=== PATIENT | male | born 1965 | race Caucasian/White ===

== ENCOUNTER 2017-06-20 10:49 | Inpatient (IN) | payer BC ==
[~2017-06-20] VITALS: Ht 177.8 cm; Wt 131.6 kg
[~2017-06-20 10:49] MED LIST: ASPI-983 PO; ATOR10TA66 PO; CANA100T PO; CANA300T PO; FURO20TA4 PO; GABA-488 PO; GABA300C PO; METF1000 PO; METO-333 PO; [UNRECOGNIZED DRUG - CODE] MC
--- OUTSIDE RECORDS SUMMARY | 2017-06-20 10:56 | XMS REPORT | Clinical Summary ---
Author Author [facility] Organization [facility] Address Unknown Phone Unavailable Care Team Providers Care Copy Director Name Role Phone PCP Unavailable Source Comments Some departments are not documenting in the electronic medical record. If you do not see the information that you expected, contact Release of Information in the Health Information Management department at [phone] for further assistance in locating additional records.[facility] Allergies No Known Allergies Current Medications Prescription Sig. Disp. Refills Start End Date Status Date metoprolol tartrate Take 25 mg by mouth twice Active (LOPRESSOR) 25 mg tablet daily. metFORMIN (GLUCOPHAGE) Take 500 mg by mouth Active 500 mg tablet twice daily with meals. gabapentin (NEURONTIN) Take 300 mg by mouth Active 300 mg capsule every 8 hours. furosemide (LASIX) 20 mg Take 20 mg by mouth every Active tablet morning. lisinopril (PRINIVIL; Take 10 mg by mouth Active ZESTRIL) 10 mg tablet daily. canagliflozin (INVOKANA) Take 300 mg by mouth Active 300 mg tablet daily with breakfast. Active Problems Problem Noted Date Erectile dysfunction 05/03/2016 Overview: ED likely secondary to vascular factors. L ast Assessment & Plan: Plan: 1. Offered IPP with cardiac clearance first. Patient does not want to schedule at this time due to insurance concerns but may consider if he reaches his deductible next year. Family History Medical History Relation Name Comments Cancer-Prostate Father Heart Disease Father Hypertension Father Diabetes Mother Hypertension Mother Relation Name Status Comments Father Mother Social History Tobacco Use Types Packs/Day Years Used Date Never Smoker Alcohol Use Drinks/Week oz/Week Comments Yes 0 Standard 0.0 drinks or equivalent Sex Assigned at Date Recorded Not on file Last Filed Vital Signs Vital Sign Reading Time Taken Blood Pressure 118/79 05/03/2016 1:44 PM CORNER CUTTER Pulse 92 05/03/2016 1:44 PM CORNER CUTTER Temperature - - Respiratory Rate - - Oxygen Saturation - - Inhaled Oxygen - - Concentration Weight 111.6 kg (246 lb) 05/03/2016 1:44 PM CORNER CUTTER Height 180.3 cm (5' 11") 05/03/2016 1:44 PM CORNER CUTTER Body Mass Index 34.31 05/03/2016 1:44 PM CORNER CUTTER Plan of Treatment Health Maintenance Due Date Last Done Comments PHYSICAL (COMPREHENSIVE) 1973 EXAM PERTUSSIS VACCINE 1977 TETANUS VACCINE 1983 COLORECTAL CANCER 01/30/2016 SCREENING INFLUENZA VACCINE 01/11/2017 Results Not on filefrom Last 3 Months
--- OUTSIDE RECORDS SUMMARY | 2017-06-20 10:56 | XMS REPORT | Continuity of Care Document ---
Author Author [facility] Organization [facility] Address Unknown Phone Unavailable Allergies Active Description Code Type Severity Reaction Onset Reported/Identified Relationship to Patient Clinical Status Yes No Known Drug Allergies [id number] Drug Allergy Unknown N/A 06/15/2015 Medications There is no data. Problems Date Dx Coded Attending Type Code Diagnosis Diagnosed By 06/17/2015 MARIIA SIM DO Ot E11.40 TYPE 2 DIABETES MELLITUS WITH DIABETIC N 06/17/[facility] E11.65 TYPE 2 DIABETES MELLITUS WITH HYPERGLYCE [facility]/17/[facility] SHANNON Ot E78.5 HYPERLIPIDEMIA, UNSPECIFIED 06/17/2015 MARIIA SIM DO Ot I10 ESSENTIAL (PRIMARY) HYPERTENSION 06/17/2015 MARIIA SIM DO Ot I25.10 ATHSCL HEART DISEASE OF [place] CORONARY 06/17/2015 [facility]A SHANNON Ot I49.3 VENTRICULAR PREMATURE DEPOLARIZATION 06/17/2015 MARIIA SIM DO Ot I65.23 OCCLUSION AND STENOSIS OF BILATERAL [place] 06/17/2015 MARIIA SIM DO Ot I73.9 PERIPHERAL VASCULAR DISEASE, UNSPECIFIED 06/17/2015 MARIIA SIM DO Ot K21.9 GASTRO-ESOPHAGEAL REFLUX DISEASE WITHOUT 06/17/2015 MARIIA SIM DO Ot N52.1 ERECTILE DYSFUNCTION DUE TO DISEASES CLA 06/17/2015 MARIIA SIM DO Ot R07.89 OTHER CHEST PAIN 06/17/2015 MARIIA SIM DO Ot Z23 ENCOUNTER FOR IMMUNIZATION 06/17/2015 MARIIA SIM DO Ot Z91.19 PATIENT'S NONCOMPLIANCE W OT MEDICAL TR 09/04/2015 CHRISTINA MOTAP Ot G47.33 OBSTRUCTIVE SLEEP APNEA (ADULT) (PEDIATR 09/09/2015 CHRISTINA MOTA Ot G47.33 09/25/2015 DENVER MAST, EUGENE Harding Ot R31.2 09/25/2015 DENVER MAST, EUGENE Harding Ot R31.2 09/25/2015 DENVER MAST, EUGENE Harding Ot Z01.818 09/25/2015 DENVER MAST, EUGENE Harding Ot R31.2 09/26/2015 DENVER MAST, EUGENE Harding Ot R31.2 OTHER MICROSCOPIC HEMATURIA 09/29/2015 DENVER MAST, EUGENE Harding Ot R31.2 OTHER MICROSCOPIC HEMATURIA 09/30/2015 DENVER MAST, EUGENE Harding Ot R31.2 OTHER MICROSCOPIC HEMATURIA 10/01/2015 DENVER MAST, EUGENE Harding Ot N28.1 CYST OF KIDNEY, ACQUIRED 10/02/2015 DENVER MAST, EUGENE Harding Ot R31.2 OTHER MICROSCOPIC HEMATURIA 10/02/2015 DENVER MAST, EUGENE Harding Ot N28.1 CYST OF KIDNEY, ACQUIRED 10/08/2015 DENVER MAST, EUGENE Harding Ot R31.2 OTHER MICROSCOPIC HEMATURIA 10/09/2015 DENVER MAST, EUGENE Harding Ot R31.2 OTHER MICROSCOPIC HEMATURIA 10/09/2015 DENVER MAST, EUGENE A Ot R31.2 OTHER MICROSCOPIC HEMATURIA 10/09/2015 DENVER MATS, EUGENE Harding Ot Z01.818 ENCOUNTER FOR OTHER PREPROCEDURAL EXAMIN 10/09/2015 DENVER MAST, EUGENE Harding Ot N28.1 CYST OF KIDNEY, ACQUIRED 10/10/2015 GELLENDER DO, MARIIA A Ot R19.7 DIARRHEA, UNSPECIFIED 10/15/2015 EUGENE GOFF MD Ot N28.1 CYST OF KIDNEY, ACQUIRED 10/16/2015 GELLENDER DO, MARIIA A Ot R19.7 DIARRHEA, UNSPECIFIED 11/05/2015 GELLENDER DO, MARIIA A Ot R19.7 DIARRHEA, UNSPECIFIED 11/06/2015 DEFFENBAANASTASIIA DO KAYLA D Ot R19.7 DIARRHEA, UNSPECIFIED 11/21/2015 DEFFENBAKAYLA LAURENT DO D Ot R19.7 DIARRHEA, UNSPECIFIED 02/09/2016 CELIA MAST, KAREN Perdomo Ot E11.40 TYPE 2 DIABETES MELLITUS WITH DIABETIC N 02/09/2016 CELIA MAST, KAREN Perdomo Ot E78.5 HYPERLIPIDEMIA, UNSPECIFIED 02/09/2016 CELIA MAST, KAREN Perdomo Ot 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 02/09/2016 KAREN YANG MD, Ot Z79.899 OTHER LINE MAINTAINER SECTION (CURRENT) DRUG THERAPY 02/20/2016 KAREN YANG MD Ot E11.40 TYPE 2 DIABETES MELLITUS WITH DIABETIC N 02/20/2016 KAREN YANG MD Ot E78.5 HYPERLIPIDEMIA, UNSPECIFIED 02/20/2016 KAREN YANG MD Ot I70.202 UNSP ATHSCL [place] ARTERIES OF [facility] 02/20/2016 KAREN YANG MD Ot M79.606 PAIN IN LEG, UNSPECIFIED 02/20/2016 KAREN YANG MD, Ot Z79.899 OTHER SKILLED NURSING (CURRENT) DRUG THERAPY 07/19/2016 KAREN YANG MD, Ot E11.40 TYPE 2 DIABETES MELLITUS WITH DIABETIC N 07/19/2016 KAREN YANG MD, Ot E78.5 HYPERLIPIDEMIA, UNSPECIFIED 07/19/2016 KAREN YANG MD, Ot I70.212 ATHSCL [place] ARTERIES OF [facility] W INTRNV 07/19/2016 KAREN YANG MD, Ot Z79.899 OTHER SKILLED NURSING (CURRENT) DRUG THERAPY Procedures There is no data. Results Test Result Range PT panel in platelet poor plasma by coagulation assay - 02/09/16 07:20 Prothrombin time (PT) in platelet poor plasma by coagulation assay 12.9 s 12.2-14.7 INR in platelet poor plasma or blood by coagulation assay 1.0 0.8-1.4 Activated partial thromboplastin time (aPTT) in platelet poor plasma bycoagulation assay - 02/09/16 07:20 Activated partial thromboplastin time (aPTT) in platelet poor plasma bycoagulation assay 30 s 24-35 Comprehensive metabolic panel - 02/09/16 07:20 Serum or plasma sodium measurement (moles/volume) 142 mmol/L 135-145 Serum or plasma potassium measurement (moles/volume) 4.0 mmol/L 3.6-5.0 Serum or plasma chloride measurement (moles/volume) 106 mmol/L 98-107 Carbon dioxide 24 mmol/L 21-32 Serum or plasma anion gap determination (moles/volume) 12 mmol/L 5-14 Serum or plasma urea nitrogen measurement (mass/volume) 29 mg/dL 7-18 Serum or plasma creatinine measurement (mass/volume) 1.16 mg/dL 0.60-1.30 Serum or plasma urea nitrogen/creatinine mass ratio 25 NRG Serum or plasma creatinine measurement with calculation of estimated glomerular filtration rate > NRG Serum or plasma glucose measurement (mass/volume) 220 mg/dL 70-105 Serum or plasma calcium measurement (mass/volume) 9.4 mg/dL 8.5-10.1 Serum or plasma total bilirubin measurement (mass/volume) 0.6 mg/dL 0.1-1.0 Serum or plasma alkaline phosphatase measurement (enzymatic activity/volume) 84 U/L 40-136 Serum or plasma aspartate aminotransferase measurement (enzymatic activity/ volume) 19 U/L 5-34 Serum or plasma alanine aminotransferase measurement (enzymatic activity/volume ) 27 U/L 0-55 Serum or plasma protein measurement (mass/volume) 6.5 g/dL 6.4-8.2 Serum or plasma albumin measurement (mass/volume) 4.2 g/dL 3.2-4.5 Lipid 1996 panel - 02/09/16 07:20 Serum or plasma triglyceride measurement (mass/volume) 172 mg/dL <150 Serum or plasma cholesterol measurement (mass/volume) 169 mg/dL < 200 Serum or plasma cholesterol in HDL measurement (mass/volume) 38 mg/ dL 40-60 Cholesterol in LDL [mass/volume] in serum or plasma by direct assay 96 mg/dL 1-129 Serum or plasma cholesterol in VLDL measurement (mass/volume) 34 mg/ dL 5-40 Methicillin resistant Staphylococcus aureus (MRSA) screening culture - 07:20 Methicillin resistant Staphylococcus aureus (MRSA) screening culture NEG NRG Complete urinalysis with reflex to culture - 02/09/16 07:45 Urine color determination YELLOW NRG Urine clarity determination CLEAR NRG Urine pH measurement by test strip 5 5-9 Specific gravity of urine by test strip 1.010 1.016- 1.022 Urine protein assay by test strip, semi-quantitative 3+ NEGATIVE Urine glucose detection by automated test strip 4+ NEGATIVE Erythrocytes detection in urine sediment by light microscopy 3+ NEGATIVE Urine ketones detection by automated test strip NEGATIVE NEGATIVE Urine nitrite detection by test strip NEGATIVE NEGATIVE Urine total bilirubin detection by test strip NEGATIVE NEGATIVE Urine urobilinogen measurement by automated test strip (mass/volume) NORMAL NORMAL Urine leukocyte esterase detection by dipstick NEGATIVE NEGATIVE Automated urine sediment erythrocyte count by microscopy (number/high power field) [HPF] NRG Automated urine sediment leukocyte count by microscopy (number/high power field ) NONE NRG Bacteria detection in urine sediment by light microscopy NEGATIVE NRG Squamous epithelial cells detection in urine sediment by light microscopy 0-2 NRG Crystals detection in urine sediment by light microscopy NONE NRG Casts detection in urine sediment by light microscopy NONE NRG Mucus detection in urine sediment by light microscopy NEGATIVE NRG Complete urinalysis with reflex to culture YES NRG Yeast detection in urine sediment by light microscopy FEW NRG Bacterial urine culture - 02/09/16 07:45 Bacterial urine culture NG NRG Encounters ACCT No. Visit Date/Time Discharge Status Pt. Type Provider Facility Loc./Unit Complaint [id number] 02/09/2016 06:42:00 02/09/2016 14:10:00 DIS Outpatient KAREN YANG MD [facility] CATH ABN. AILYN, DM, CLAUDICATION PAIN [id number] 11/05/2015 16:05:00 11/05/2015 23:59:59 CLS Outpatient KAYLA ISBELL DO [facility] LAB [id number] 10/10/2015 07:23:00 11/05/2015 16:03:00 DIS Outpatient MARIIA SIM DO [facility] LAB [id number] 09/30/2015 13:23:00 09/30/2015 23:59:59 CLS Outpatient EUGENE GOFF MD [facility] RAD [id number] 09/26/2015 06:23:00 09/26/2015 09:35:00 DIS Outpatient EUGENE GOFF MD [facility] [id number] 09/24/2015 13:25:00 09/24/2015 23:59:59 CLS Outpatient EUGENE GOFF MD [facility] RAD [id number] 09/24/2015 05:36:00 09/24/2015 23:59:59 CLS Outpatient EUGENE GOFF MD [facility] PREOP [id number] 09/03/2015 20:26:00 09/04/2015 06:17:00 DIS Outpatient CHRISTINA MOTA TABLET MAKING MACHINE OPERATOR [facility] SLEEP [id number] 06/15/2015 21:30:00 06/17/2015 14:50:00 DIS Inpatient MARIIA SIM DO [facility]
--- NOTE | 2017-06-20 11:43 | ED Cardiac General ---
History of Present Illness General Chief Complaint: Respiratory Problems Stated Complaint: SWELLING,WEIGHT GAIN-SENT BY DR SIM History of Present Illness Time seen by provider: 11:39 Initial Comments Pt is a 52 yo male with a PMH of PAD, DM (with retinopathy), HTN, and Obesity who presents to the ED from Dr. Sim c/o SOB and weight gain over the past few months. Pt states that he has gained 40-50 lbs over the past few months and has become increasingly SOB and has had difficulties working and bending over because of the weight gain. Pt states that he has never been told he had CHF but Dr. Sim was concerned that may be the case. Pt denies any CP, fevers, chills, urinary sx, n/v/d or any other associated sx. (LAUREN RODRIGUEZ MEDICAL STUDENT) Initial Comments I saw the patient with the medical student and agree with his history, physical examination, assessment and plan. Patient has had 50 pounds weight gain over the last 3 months and is not on metoprolol. He is known to Dr. Perez and has an echocardiogram from 2 years ago indicating to the diastolic dysfunction. Patient presents with progressively a sending edema starting in his ankles and working the way up to his thighs and then now his midsection. He is using CPAP because difficult to breathe at night. He is having weakness. He denies any chest pain but he definitely has shortness of breath and for the last 4 days as had quite a bit of coughing which he attributes to an upper respiratory infection. Patient is not on diuretics. (ELMIRA ORTEZ) Allergies and Home Medications Allergies Coded Allergies: No Known Drug Allergies (Unverified , 06/15/15) Home Medications Aspirin 81 Mg Collin., 81 MG PO DAILY, #100 Prescribed by: KAREN PEREZ on 02/09/16 0909 Canagliflozin 300 Mg Tablet, 300 MG PO DAILY, (Reported) Furosemide 20 Mg Tablet, 20 MG PO BID, (Reported) Gabapentin 300 Mg Capsule, 300 MG PO TID, (Reported) Metoprolol Tartrate 25 Mg Tablet, 25 MG PO BID, (Reported) Review of Systems Constitutional: No chills, No diaphoresis, No fever, weight gain (40-60 lbs) EENTM: No Symptoms Reported, No Blurred Vision, No Double Vision, No Mouth Swelling, No Nose Congestion, No Throat Pain Respiratory: Cough, Shortness of Air, SOA With Exertion, SOA at Rest Cardiovascular: Denies Chest Pain, Edema, Denies Irregular Heart Rate, Denies Palpitations, Denies Syncope Gastrointestinal: Abdomen Distended, Denies Abdominal Pain, Denies Diarrhea, Denies Difficulty Swallowing, Denies Nausea Genitourinary: Denies Burning, Denies Discharge Musculoskeletal: No back pain, No joint pain, joint swelling (leg swelling bilat) Skin: no symptoms reported, No change in color, No change in hair/nails, No rash Psychiatric/Neurological: No Symptoms Reported Endocrine: No Symptoms Reported Hematologic/Lymphatic: No Symptoms Reported (LAUREN RODRIGUEZ MEDICAL STUDENT) All Other Systems Reviewed Negative Unless Noted: Yes (Negative excepted noted.) (LAUREN RODRIGUEZ MEDICAL STUDENT) Past Wnslckm-Uywhgu-Yuklhf Hx Patient Social History Recent Foreign Travel: No Contact w/Someone Who Travel: No (LAUREN RODRIGUEZ MEDICAL STUDENT) Immunizations Up To Date Tetanus Booster (TDap): Unknown Date of Pneumonia Vaccine: Jun 16, 2015 Date of Influenza Vaccine: Apr 24, 2015 (LAUREN RODRIGUEZ MEDICAL STUDENT) Seasonal Allergies Seasonal Allergies: No (LAUREN RODRIGUEZ MEDICAL STUDENT) Surgeries Surgeries: Cardiac, Nose (LAUREN RODRIGUEZ MEDICAL STUDENT) Respiratory Respiratory Disorders: Sleep Apnea Currently Using CPAP: No (prescribbed machine but does not use) Currently Using BIPAP: No (LAUREN RODRIGUEZ MEDICAL STUDENT) Cardiovascular Cardiac Disorders: Coronary Artery Disease, Hypertension, Irregular Heartbeat (LAUREN RODRIGUEZ MEDICAL STUDENT) Neurological Neurological Disorders: Neuropathy (LAUREN RODRIGUEZ MEDICAL STUDENT) Reproductive System Hx Reproductive Disorders: Yes (E.D.) Sexually Transmitted Disease: No HIV/AIDS: No (LAUREN RODRIGUEZ MEDICAL STUDENT) Gastrointestinal Gastrointestinal Disorders: Chronic Diarrhea (LAUREN RODRIGUEZ MEDICAL STUDENT) Endocrine Endocrine Disorders: Diabetes, Non-Insulin dep (LAUREN RODRIGUEZ MEDICAL STUDENT) Psychosocial Behavioral Health Disorders: Anxiety (LAUREN RODRIGUEZ MEDICAL STUDENT) Blood Transfusions Adverse Reaction to a Blood Tr: No (LAUREN RODRIGUEZ MEDICAL STUDENT) Family Medical History Family Medial History: Arthritis G8 BROTHER (knee replacement) Cardiovascular disease 19 FATHER (chf) Deafness or hearing loss 19 MOTHER (vertigo) Diabetes mellitus 19 MOTHER Prostate cancer 19 FATHER (LAUREN RODRIGUEZ MEDICAL STUDENT) Family Medial History: Arthritis G8 BROTHER (knee replacement) Cardiovascular disease 19 FATHER (chf) Deafness or hearing loss 19 MOTHER (vertigo) Diabetes mellitus 19 MOTHER Prostate cancer 19 FATHER (ELMIRA ORTEZ) Physical Exam Vital Signs Vital Sign - Last 12Hours 06/20/17 12:12 Temp 98.4 Pulse 89 Resp 16 B/P (MAP) 191/114 (139) Pulse Ox 96 O2 Delivery Nasal Cannula O2 Flow Rate 2.00 (ELMIRA ORTEZ) Vital Signs Capillary Refill : (LAUREN RODRIGUEZ MEDICAL STUDENT) General Appearance: No Apparent Distress, WD/WN HEENT: PERRL/EOMI, TMs Normal, Pharynx Normal, Moist Mucous Membranes Neck: Full Range of Motion, Normal Inspection Respiratory: Chest Non Tender, No Respiratory Distress, Crackles (bilat bases) Cardiovascular: Regular Rate, Rhythm, No Murmur Gastrointestinal: Normal Bowel Sounds, Distended, Other (obese) Rectal: Deferred Extremity: No Calf Tenderness, Swelling (bilat LE's) Neurologic/Psychiatric: Alert, Oriented x3 Skin: Normal Color, Warm/Dry (LAUREN RODRIGUEZ MEDICAL STUDENT) Progress/Results/Core Measures Results/Orders Lab Results Laboratory Tests Test 06/20/17 11:30 Range/Units White Blood Count 3.8 L 4.3-11.0 10^3/uL Red Blood Count 3.78 L 4.35-5.85 10^6/uL Hemoglobin 10.2 L 13.3-17.7 G/DL Hematocrit 35 L 40-54 % Mean Corpuscular Volume 92 80-99 FL Mean Corpuscular Hemoglobin 27 25-34 PG Mean Corpuscular Hemoglobin Concent 29 L 32-36 G/DL Red Cell Distribution Width 13.1 10.0-14.5 % Platelet Count 234 130-400 10^3/uL Mean Platelet Volume 10.7 H 7.4-10.4 FL Neutrophils (%) (Auto) 67 42-75 % Lymphocytes (%) (Auto) 12 12-44 % Monocytes (%) (Auto) 15 H 0-12 % Eosinophils (%) (Auto) 5 0-10 % Basophils (%) (Auto) 1 0-10 % Neutrophils # (Auto) 2.5 1.8-7.8 X 10^3 Lymphocytes # (Auto) 0.5 L 1.0-4.0 X 10^3 Monocytes # (Auto) 0.6 0.0-1.0 X 10^3 Eosinophils # (Auto) 0.2 0.0-0.3 10^3/uL Basophils # (Auto) 0.0 0.0-0.1 10^3/uL Sodium Level 141 135-145 MMOL/L Potassium Level 4.7 3.6-5.0 MMOL/L Chloride Level 107 98-107 MMOL/L Carbon Dioxide Level 25 21-32 MMOL/L Anion Gap 9 5-14 MMOL/L Blood Urea Nitrogen 29 H 7-18 MG/DL Creatinine 1.29 0.60-1.30 MG/DL Estimat Glomerular Filtration Rate 59 BUN/Creatinine Ratio 22 Glucose Level 110 H 70-105 MG/DL Calcium Level 8.7 8.5-10.1 MG/DL Magnesium Level 1.8 1.8-2.4 MG/DL Total Bilirubin 0.5 0.1-1.0 MG/DL Aspartate Amino Transf (AST/SGOT) 29 5-34 U/L Alanine Aminotransferase (ALT/SGPT) 33 0-55 U/L Alkaline Phosphatase 125 40-136 U/L Troponin I < 0.30 <0.30 NG/ML C-Reactive Protein High Sensitivity 3.57 H 0.00-0.50 MG/DL B-Type Natriuretic Peptide 655.9 H <100.0 PG/ML Total Protein 6.0 L 6.4-8.2 GM/DL Albumin 3.4 3.2-4.5 GM/DL (ELMIRA ORTEZ) My Orders Orders - ELMIRA ORTEZ BNP (06/20/17 11:36) Cbc With Automated Diff (06/20/17 11:36) Comprehensive Metabolic Panel (06/20/17 11:36) Hs C Reactive Protein (06/20/17 11:36) Magnesium (06/20/17 11:36) Troponin I (06/20/17 11:36) Ua Culture If Indicated (06/20/17 11:36) Chest 1 View, Ap/Pa Only (06/20/17 11:36) Ekg Tracing (06/20/17 11:36) Furosemide Injection (Lasix Injection) (06/20/17 11:45) Influenza A And B Antigens (06/20/17 11:55) (ELMIRA ORTEZ) Medications Given in ED Current Medications Medications Dose Ordered Sig/Herminio Route Start Time Stop Time Status Last Admin Dose Admin Furosemide 40 mg ONCE ONCE IVP 06/20/17 11:45 06/20/17 11:46 DC 06/20/17 11:56 40 MG (ELMIRA ORTEZ) Vital Signs/I&O Vital Sign - Last 12Hours 06/20/17 12:12 Temp 98.4 Pulse 89 Resp 16 B/P (MAP) 191/114 (139) Pulse Ox 96 O2 Delivery Nasal Cannula O2 Flow Rate 2.00 (ELMIRA ORTEZ) Progress Note : Time: 11:53 Progress Note We'll start with 40 mg IV Lasix. The patient is been off his Lasix and metoprolol probably due to loss of insurance. He is on metformin which we'll hold. Patient states she's hungry and we'll let him eat as long as the troponin and EKG don't indicate any need for acute intervention. Given the chronicity of his heart failure this is less likely. We'll also trying to get a flu swab. (ELMIRA ORTEZ) ECG Initial ECG Impression Date: Jun 20, 2017 Initial ECG Impression Time: 11:53 Initial ECG Rate: 84 Initial ECG Rhythm: Normal Sinus Initial ECG Intervals: Normal Initial ECG Impression: Normal Initial ECG Comparisson: Unchanged Comment No T-wave elevation or depression (ELMIRA ORTEZ) Diagnostic Imaging Diagonstic Imaging: Xray Plain Films/CT/US/NM/MRI: chest (1v) Comments Bilateral pleural edema without significant pleural effusion. Reviewed: Reviewed by Me (ELMIRA ORTEZ) Departure Communication (Admissions) Time/Spoke to Admitting Phy: 12:25 Communication [address]iscuss[address] case with Dr. Sim and he agrees with admission and would like to consult cardiology and trying get another echocardiogram and cardiology agrees. Time/Spoke to Consulting Phy: 12:31 Communication/Consulting Discussed the case with Dr. Perez and he agrees with Lasix 80 mg IV twice a day until he sees the patient. Echocardiogram now. TSH, A1c and fasting lipid panel. (ELMIRA ORTEZ) Impression Impression: Primary Impression: Acute decompensated heart failure Disposition: ADMITTED INPATIENT Condition: Stable Admissions Decision to Admit Reason: Admit from ER (General) Decision to Admit/Date: Jun 20, 2017 Time/Decision to Admit Time: 12:32 (PÉREZ,ELMIRA J) Departure-Patient Inst. Referrals: MARIIA SIM DO (PCP/Family) Primary Care Physician Copy Copies To 1: MARIIA SIM DO Copies To 2: KAREN PEREZ MD, ROSS MEDICAL STUDENT Jun 20, 2017 11:43 ELMIRA ORTEZ Jun 20, 2017 11:54
[2017-06-20] MEDS ORDERED: FUROSEMIDE 40 MG/4 ML INJ (LASIX) IVP ONE ×2 (11:45→12:45)
[2017-06-20 11:47] LABS: BASOPHILS % (AUTO) 1 % (0-10); EOSINOPHILS # (AUTO) 0.2 10^3/uL (0.0-0.3); EOSINOPHILS % (AUTO) 5 % (0-10); HEMATOCRIT 35 % (40-54); HEMOGLOBIN 10.2 G/DL (13.3-17.7); LYMPHOCYTES # (AUTO) 0.5 X 10^3 (1.0-4.0); LYMPHOCYTES % (AUTO) 12 % (12-44); MEAN CORPUSCULAR HEMOGLOBIN 27 PG (25-34); MEAN CORPUSCULAR HGB CONC 29 G/DL (32-36); MEAN CORPUSCULAR VOLUME 92 FL (80-99); MEAN PLATELET VOLUME 10.7 FL (7.4-10.4); MONOCYTES # (AUTO) 0.6 X 10^3 (0.0-1.0); MONOCYTES % (AUTO) 15 % (0-12); NEUTROPHILS # (AUTO) 2.5 X 10^3 (1.8-7.8); NEUTROPHILS % (AUTO) 67 % (42-75); PLATELET COUNT 234 10^3/uL (130-400); RED BLOOD COUNT 3.78 10^6/uL (4.35-5.85); RED CELL DISTRIBUTION WIDTH 13.1 % (10.0-14.5); WHITE BLOOD COUNT 3.8 10^3/uL (4.3-11.0)
[2017-06-20 12:11] LABS: ALANINE AMINOTRANSFERASE 33 U/L (0-55); ALBUMIN 3.4 GM/DL (3.2-4.5); ALKALINE PHOSPHATASE 125 U/L (40-136); BILIRUBIN,TOTAL 0.5 MG/DL (0.1-1.0); BUN/CREATININE RATIO 22; CALCIUM 8.7 MG/DL (8.5-10.1); CARBON DIOXIDE 25 MMOL/L (21-32); CHLORIDE 107 MMOL/L (98-107); CREATININE SERUM 1.29 MG/DL (0.60-1.30); GFR ESTIMATED 59; GLUCOSE 110 MG/DL (70-105); MAGNESIUM 1.8 MG/DL (1.8-2.4); POTASSIUM 4.7 MMOL/L (3.6-5.0); SODIUM 141 MMOL/L (135-145)
--- NOTE | 2017-06-20 12:28 | Diagnostic Imaging Report ---
INDICATION: Cough, congestion, swelling and weight gain. Comparison is made with prior examination from 02/09/16. FINDINGS: There is cardiomegaly. There is some central pulmonary venous congestion. There is no pleural effusion or pneumothorax. Mediastinum is unremarkable. IMPRESSION: Cardiomegaly and some moderate central pulmonary venous congestion. Dictated by: Dictated on workstation # [id number]
[2017-06-20 12:37] LABS: BILIRUBIN,URINE NEGATIVE (NEGATIVE); CLARITY,URINE CLEAR; COLOR,URINE YELLOW; GLUCOSE, URINE (UA) NEGATIVE (NEGATIVE); KETONES,URINE NEGATIVE (NEGATIVE); LEUKOCYTE ESTERASE ,URINE NEGATIVE (NEGATIVE); NITRITE,URINE NEGATIVE (NEGATIVE); PH,URINE 5 (5-9); PROTEIN,URINE 4+ (NEGATIVE); UROBILINOGEN,URINE NORMAL (NORMAL)
[2017-06-20 12:47] LABS: BACTERIA,URINE NEGATIVE /HPF; WBC,URINE 0-2 /HPF
--- OUTSIDE RECORDS SUMMARY | 2017-06-20 12:52 | XMS REPORT | Clinical Summary ---
Author Author [facility] Organization [facility] Address Unknown Phone Unavailable Care Team Providers Care Surgical Supply Assistant Name Role Phone PCP Unavailable Source Comments Some departments are not documenting in the electronic medical record. If you do not see the information that you expected, contact Release of Information in the Health Information Management department at [phone] for further assistance in locating additional records.[facility] Allergies No Known Allergies Current Medications Prescription [...] Taken Blood Pressure 118/79 05/03/2016 1:44 PM CANDY CUTTER MACHINE Pulse 92 05/03/2016 1:44 PM CANDY CUTTER MACHINE Temperature - - Respiratory Rate - - Oxygen Saturation - - Inhaled Oxygen - - Concentration Weight 111.6 kg (246 lb) 05/03/2016 1:44 PM CANDY CUTTER MACHINE Height 180.3 cm (5' 11") 05/03/2016 1:44 PM CANDY CUTTER MACHINE Body Mass Index 34.31 05/03/2016 1:44 PM CANDY CUTTER MACHINE Plan of Treatment Health Maintenance Due Date Last Done Comments PHYSICAL (COMPREHENSIVE) 1973 EXAM PERTUSSIS VACCINE 1977 TETANUS VACCINE 1983 COLORECTAL CANCER 01/30/2016 SCREENING INFLUENZA VACCINE 01/11/2017 Results Not on filefrom Last 3 Months
--- OUTSIDE RECORDS SUMMARY | 2017-06-20 12:53 | XMS REPORT | Continuity of Care Document ---
Author Author [facility] Organization [facility] Address Unknown Phone Unavailable Allergies Active Description Code Type Severity Reaction Onset Reported/Identified Relationship to Patient Clinical Status Yes No Known Drug Allergies [id number] Drug Allergy Unknown N/A 06/15/2015 Medications There is no data. Problems Date Dx Coded Attending Type Code Diagnosis Diagnosed By 06/17/2015 MARIIA SIM DO Ot E11.40 TYPE 2 DIABETES MELLITUS WITH DIABETIC N 06/17/[facility] E11.65 TYPE 2 DIABETES MELLITUS WITH HYPERGLYCE 06/17/2015 [facility] MARIIA SHANNON Ot E78.5 HYPERLIPIDEMIA, UNSPECIFIED 06/17/2015 MARIIA SIM DO Ot I10 ESSENTIAL (PRIMARY) HYPERTENSION 06/17/2015 MARIIA SIM DO Ot I25.10 ATHSCL HEART DISEASE OF [place] CORONARY 06/17/2015 S[facility] MARIIA SHANNON Ot I49.3 VENTRICULAR PREMATURE DEPOLARIZATION [...] HEMATURIA 10/09/2015 DENVER MAST, EUGENE Harding Ot Z01.818 ENCOUNTER FOR OTHER [...] MELLITUS WITH DIABETIC N 02/09/2016 CELIA MAST, AKREN Perdomo Ot E78.5 HYPERLIPIDEMIA, UNSPECIFIED 02/09/2016 CELIA MAST, KAREN Perdomo Ot 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 02/09/2016 KAREN YANG MD, Ot Z79.899 OTHER PHARMACY OPERATIONS COORDINATOR (CURRENT) DRUG THERAPY 02/20/2016 KAREN YANG MD Ot E11.40 TYPE 2 DIABETES MELLITUS WITH DIABETIC N 02/20/2016 KAREN YANG MD Ot E78.5 HYPERLIPIDEMIA, UNSPECIFIED 02/20/2016 KAREN YANG MD Ot I70.202 UNSP ATHSCL [place] ARTERIES OF [facility] 02/20/2016 KAREN YANG MD Ot M79.606 PAIN IN LEG, UNSPECIFIED 02/20/2016 KAREN YANG MD, Ot Z79.899 OTHER CUSTODIAL (CURRENT) DRUG THERAPY 07/19/2016 KAREN YANG MD, Ot E11.40 TYPE 2 DIABETES MELLITUS WITH DIABETIC N 07/19/2016 KAREN YANG MD, Ot E78.5 HYPERLIPIDEMIA, UNSPECIFIED 07/19/2016 KAREN YANG MD, Ot I70.212 ATHSCL [place] ARTERIES OF [facility] W INTRWY 07/19/2016 KAREN YANG MD, Ot Z79.899 OTHER CUSTODIAL (CURRENT) DRUG THERAPY Procedures There is no [...] 02/09/16 07:45 Bacterial urine culture NG NRG Complete blood count (CBC) with automated white blood cell (WBC) differential - 06/20/17 11:30 Blood leukocytes automated count (number/volume) 3.8 10*3/uL 4.3-11.0 Blood erythrocytes automated count (number/volume) 3.78 10*6/uL 4.35-5.85 Venous blood hemoglobin measurement (mass/volume) 10.2 g/dL 13.3-17.7 Blood hematocrit (volume fraction) 35 % 40-54 Automated erythrocyte mean corpuscular volume 92 [foz_us] 80-99 Automated erythrocyte mean corpuscular hemoglobin (mass per erythrocyte) 27 pg 25-34 Automated erythrocyte mean corpuscular hemoglobin concentration measurement ( mass/volume) 29 g/dL 32-36 Automated erythrocyte distribution width ratio 13.1 % 10.0-14.5 Automated blood platelet count (count/volume) 234 10*3/uL 130-400 Automated blood platelet mean volume measurement 10.7 [foz_us] 7.4-10.4 Automated blood neutrophils/100 leukocytes 67 % 42-75 Automated blood lymphocytes/100 leukocytes 12 % 12-44 Blood monocytes/100 leukocytes 15 % 0-12 Automated blood eosinophils/100 leukocytes 5 % 0-10 Automated blood basophils/100 leukocytes 1 % 0-10 Blood neutrophils automated count (number/volume) 2.5 10*3 1.8-7.8 Blood lymphocytes automated count (number/volume) 0.5 10*3 1.0-4.0 Blood monocytes automated count (number/volume) 0.6 10*3 0.0-1.0 Automated eosinophil count 0.2 10*3/uL 0.0-0.3 Automated blood basophil count (count/volume) 0.0 10*3/uL 0.0-0.1 Comprehensive metabolic panel - 06/20/17 11:30 Serum or plasma sodium measurement (moles/volume) 141 mmol/L 135-145 Serum or plasma potassium measurement (moles/volume) 4.7 mmol/L 3.6-5.0 Serum or plasma chloride measurement (moles/volume) 107 mmol/L 98-107 Carbon dioxide 25 mmol/L 21-32 Serum or plasma anion gap determination (moles/volume) 9 mmol/L 5-14 Serum or plasma urea nitrogen measurement (mass/volume) 29 mg/dL 7-18 Serum or plasma creatinine measurement (mass/volume) 1.29 mg/dL 0.60-1.30 Serum or plasma urea nitrogen/creatinine mass ratio 22 NRG Serum or plasma creatinine measurement with calculation of estimated glomerular filtration rate 59 NRG Serum or plasma glucose measurement (mass/volume) 110 mg/dL 70-105 Serum or plasma calcium measurement (mass/volume) 8.7 mg/dL 8.5-10.1 Serum or plasma total bilirubin measurement (mass/volume) 0.5 mg/dL 0.1-1.0 Serum or plasma alkaline phosphatase measurement (enzymatic activity/volume) 125 U/L 40-136 Serum or plasma aspartate aminotransferase measurement (enzymatic activity/ volume) 29 U/L 5-34 Serum or plasma alanine aminotransferase measurement (enzymatic activity/volume ) 33 U/L 0-55 Serum or plasma protein measurement (mass/volume) 6.0 g/dL 6.4-8.2 Serum or plasma albumin measurement (mass/volume) 3.4 g/dL 3.2-4.5 Magnesium - 06/20/17 11:30 Magnesium 1.8 mg/dL 1.8-2.4 Serum or plasma troponin i.cardiac measurement (mass/volume) - 06/20/17 11:30 Serum or plasma troponin i.cardiac measurement (mass/volume) < ng/ mL <0.30 Serum or plasma lithium measurement (moles/volume) - 06/20/17 11:30 BNP level 655.9 pg/mL <100.0 Serum or plasma C reactive protein measurement (mass/volume) - 06/20/17 11:30 Serum or plasma C reactive protein measurement (mass/volume) 3.57 mg /dL 0.00-0.50 Complete urinalysis with reflex to culture - 06/20/17 12:27 Urine color determination YELLOW NRG Urine clarity determination CLEAR NRG Urine pH measurement by test strip 5 5-9 Specific gravity of urine by test strip 1.015 1.016- 1.022 Urine protein assay by test strip, semi-quantitative 4+ NEGATIVE Urine glucose detection by automated test strip NEGATIVE NEGATIVE Erythrocytes detection in urine sediment by light microscopy 4+ NEGATIVE Urine ketones detection by automated test [...] count by microscopy (number/high power field ) [HPF] NRG Bacteria detection in urine sediment by light microscopy NEGATIVE NRG Crystals detection in urine sediment by light microscopy NONE NRG Casts detection in urine sediment by light microscopy NONE NRG Mucus detection in urine sediment by light microscopy NEGATIVE NRG Complete urinalysis with reflex to culture NO NRG Encounters ACCT No. Visit Date/Time Discharge Status Pt. Type Provider Facility Loc./Unit Complaint [id number] 02/09/2016 06:42:00 02/09/2016 14:10:00 DIS Outpatient KAREN YANG MD [facility] CATH ABN. AILYN, DM, CLAUDICATION PAIN [id number] 11/05/2015 16:05:00 11/05/2015 23:59:59 CLS Outpatient KAYLA ISBELL DO [facility] LAB [id number] 10/10/2015 07:23:00 11/05/2015 16:03:00 DIS Outpatient MARIIA SIM DO [facility] LAB [id number] 09/30/2015 13:23:00 09/30/2015 23:59:59 CLS Outpatient EUGENE GOFF MD [facility] [id number] 09/26/2015 06:23:00 09/26/2015 09:35:00 DIS Outpatient EUGENE GOFF MD [facility] [id number] 09/24/2015 13:25:00 09/24/2015 23:59:59 CLS Outpatient EUGENE GOFF MD [facility] RAD [id number] 09/24/2015 05:36:00 09/24/2015 23:59:59 CLS Outpatient EUGENE GOFF MD [facility] PREOP [id number] 09/03/2015 20:26:00 09/04/2015 06:17:00 DIS Outpatient CHRISTINA MOTA [facility] SLEEP [id number] 06/15/2015 21:30:00 06/17/2015 14:50:00 DIS Inpatient MARIIA SIM DO [facility] CSD [id number] 06/20/2017 11:48:00 Document Registration
[2017-06-20 13:40] VITALS: BP 165/115
[2017-06-20] MEDS ORDERED: CATHETER FLUSH 10 ML SYR IV PRN (13:45)
[2017-06-20] MEDS ORDERED: ONDANSETRON 4 MG/2 ML (SDV) Z0FRAN IV PRN (13:45)
[2017-06-20] MEDS ORDERED: GABAPENTIN 300 MG (NEURONTIN) CAP PO SCH (14:00)
[2017-06-20] MEDS: OSELTAMIVIR 75 MG (TAMIFLU) BOX OF 10 PO SCH ×2 (14:04→21:13)
[2017-06-20] MEDS: CATHETER FLUSH 10 ML SYR IV SCH ×2 (14:04→21:14)
[2017-06-20] MEDS ORDERED: LISI10TA2 PO (14:10)
[2017-06-20] MEDS ORDERED: GABA-488 PO (14:10)
[2017-06-20] MEDS ORDERED: METF-478 PO (14:10)
[2017-06-20] MEDS ORDERED: ASPI-983 PO (14:11)
[2017-06-20] MEDS ORDERED: IBUP-30 PO (14:23)
[2017-06-20] MEDS ORDERED: IBUPROFEN TABLET 200 MG TAB PO PRN (14:30)
[2017-06-20] MEDS ORDERED: lisINopril 10 MG (PRINIVIL) TAB PO NR (14:45)
[2017-06-20] MEDS ORDERED: meTOprolol TARTRATE 25 MG (LOPRESSOR) TABLET PO NR (14:45)
[2017-06-20] MEDS ORDERED: INFLUENZA TRIvalent 2017-2018 0.5 ML/45 MCG SYR IM ONE (15:00)
--- NOTE | 2017-06-20 15:28 | Physical Therapy Progress Note ---
Therapy Progress Note PT in to assess patient. Patient is independent with all gross motor skills and is up independent in room. Due to Droplet precautions, PT instructed patient to ambulate in room and if in hallway, wear a mask. Patient voices understanding. No skilled PT indicated. 1 visit MARK RAMIREZ PT Jun 20, 2017 15:28
[2017-06-20 16:00] VITALS: BP 189/97
[2017-06-20] MEDS: FUROSEMIDE 40 MG/4 ML INJ (LASIX) IV SCH (16:18)
[2017-06-20] MEDS: inSUlin ASPART (NovoLOG) 1 UNIT/0.01 ML (CHARGE PER UNIT) SC SCH ×2 (16:18→21:14)
--- NOTE | 2017-06-20 16:21 | Consultation-Cardiology ---
HPI-Cardiology Cardiology Consultation Date of Consultation 06/20/17 Date of Admission Time Seen by Provider: 16:16 Indication: Shortness of breath HPI 52 years old gentleman with history of diabetes mellitus, hypertension, noncompliant with medication, was having increasing peripheral edema and weight gain with shortness of breath to the point that he came into the hospital for evaluation. He denied any chest pain, was having worsening edema up to his abdomen. No syncope or near syncopal episodes. No claudication. Has history of left ventricular diastolic dysfunction with normal systolic function. Home Medications & Allergies Allergies: Coded Allergies: No Known Drug Allergies (Unverified , 06/20/17) Home Medication List Reviewed: Yes QRA-[id number]-Kgwwvi Hx Patient Social History Alcohol Use: Rarely Uses Recreational Drug Use: No Smoking Status: Never a Smoker Recent Foreign Travel: No Recent Infectious Disease Expo: No Immunizations Up To Date Tetanus Booster (TDap): Unknown Date of Pneumonia Vaccine: Jun 16, 2015 Date of Influenza Vaccine: Apr 24, 2015 Past Medical History Past medical history is discussed below Family Medical History Family History: 19 FATHER Cardiovascular disease (chf) Prostate cancer 19 MOTHER Diabetes mellitus Deafness or hearing loss (vertigo) G8 BROTHER Arthritis (knee replacement) Constitutional: see HPI, malaise, weakness, weight gain EENTM: see HPI, no symptoms reported Respiratory: see HPI, dyspnea on exertion, orthopnea, short of breath Cardiovascular: see HPI, No chest pain, edema, No Hx of Intervention, No palpitations, No syncope, No vascular heart diseas, No other Gastrointestinal: no symptoms reported, see HPI Genitourinary: no symptoms reported, see HPI Musculoskeletal: no symptoms reported, see HPI Skin: no symptoms reported, see HPI Psychiatric/Neurological: No Symptoms Reported, See HPI Reviewed Test Results Reviewed Test Results Lab Laboratory Tests Test 06/20/17 11:30 06/20/17 12:27 06/20/17 15:25 Range/Units White Blood Count 3.8 L 4.3-11.0 10^3/uL Red Blood Count 3.78 L 4.35-5.85 10^6/uL Hemoglobin 10.2 L 13.3-17.7 G/DL Hematocrit 35 L 40-54 % Mean Corpuscular Volume 92 80-99 FL Mean Corpuscular Hemoglobin 27 25-34 PG Mean Corpuscular Hemoglobin Concent 29 L 32-36 G/DL Red Cell Distribution Width 13.1 10.0-14.5 % Platelet Count 234 130-400 10^3/uL Mean Platelet Volume 10.7 H 7.4-10.4 FL Neutrophils (%) (Auto) 67 42-75 % Lymphocytes (%) (Auto) 12 12-44 % Monocytes (%) (Auto) 15 H 0-12 % Eosinophils (%) (Auto) 5 0-10 % Basophils (%) (Auto) 1 0-10 % Neutrophils # (Auto) 2.5 1.8-7.8 X 10^3 Lymphocytes # (Auto) 0.5 L 1.0-4.0 X 10^3 Monocytes # (Auto) 0.6 0.0-1.0 X 10^3 Eosinophils # (Auto) 0.2 0.0-0.3 10^3/uL Basophils # (Auto) 0.0 0.0-0.1 10^3/uL Sodium Level 141 135-145 MMOL/L Potassium Level 4.7 3.6-5.0 MMOL/L Chloride Level 107 98-107 MMOL/L Carbon Dioxide Level 25 21-32 MMOL/L Anion Gap 9 5-14 MMOL/L Blood Urea Nitrogen 29 H 7-18 MG/DL Creatinine 1.29 0.60-1.30 MG/DL Estimat Glomerular Filtration Rate 59 BUN/Creatinine Ratio 22 Glucose Level 110 H 70-105 MG/DL Calcium Level 8.7 8.5-10.1 MG/DL Magnesium Level 1.8 1.8-2.4 MG/DL Total Bilirubin 0.5 0.1-1.0 MG/DL Aspartate Amino Transf (AST/SGOT) 29 5-34 U/L Alanine Aminotransferase (ALT/SGPT) 33 0-55 U/L Alkaline Phosphatase 125 40-136 U/L Troponin I < 0.30 <0.30 NG/ML C-Reactive Protein High Sensitivity 3.57 H 0.00-0.50 MG/DL B-Type Natriuretic Peptide 655.9 H <100.0 PG/ML Total Protein 6.0 L 6.4-8.2 GM/DL Albumin 3.4 3.2-4.5 GM/DL Urine Color YELLOW Urine Clarity CLEAR Urine pH 5 5-9 Urine Specific [place] 1.015 L 1.016-1.022 Urine Protein 4+ NEGATIVE Urine Glucose (UA) NEGATIVE NEGATIVE Urine Ketones NEGATIVE NEGATIVE Urine Nitrite NEGATIVE NEGATIVE Urine Bilirubin NEGATIVE NEGATIVE Urine Urobilinogen NORMAL NORMAL MG/DL Urine Leukocyte Esterase NEGATIVE NEGATIVE Urine RBC (Auto) 4+ H NEGATIVE Urine RBC 5-10 H /HPF Urine WBC 0-2 /HPF Urine Crystals NONE /LPF Urine Bacteria NEGATIVE /HPF Urine Casts NONE /LPF Urine Mucus NEGATIVE /LPF Urine Culture Indicated NO Glucometer 107 70-110 MG/DL Physical Exam Vital Signs Vital Sign - Last 12Hours 06/20/17 12:12 Temp 98.4 Pulse 89 Resp 16 B/P (MAP) 191/114 (139) Pulse Ox 96 O2 Delivery Nasal Cannula O2 Flow Rate 2.00 Capillary Refill : Less Than 3 Seconds General Appearance: WD/WN, Mild Distress Eyes: Bilateral Eye Normal Inspection, Bilateral Eye PERRL, Bilateral Eye EOMI HEENT: PERRL/EOMI, TMs Normal, Normal ENT Inspection, Pharynx Normal Neck: Full Range of Motion, Normal Inspection, Non Tender, Supple, Carotid Bruit Respiratory: Chest Non Tender, Normal Breath Sounds, No Accessory Muscle Use, No Respiratory Distress, Crackles Cardiovascular: Regular Rate, Rhythm, No Edema, No Gallop, Normal Peripheral Pulses, Systolic Murmur Gastrointestinal: Normal Bowel Sounds, No Organomegaly, No Pulsatile Mass, Non Tender, Soft Back: Normal Inspection, No CVA Tenderness, No Vertebral Tenderness Extremity: Normal Capillary Refill, Normal Inspection, Normal Range of Motion, Non Tender, No Calf Tenderness, Pedal Edema Neurologic/Psychiatric: Alert, Oriented x3, No Motor/Sensory Deficits, Normal Mood/Affect Skin: Normal Color, Warm/Dry Lymphatic: No Adenopathy A/P-Cardiology Admission Diagnosis Congestive heart failure acute left ventricular systolic and diastolic dysfunction Shortness of breath Hypertension Hyperlipidemia Assessment/Plan Peripheral edema, congestive heart failure acute left ventricular diastolic and systolic dysfunction, ejection fraction 45-50 percent, started on aggressive diuretics. Continue to monitor. Multiple risk factors for coronary artery disease last cardiac catheterization was done in 2001. Planning to evaluate stress test. Mild to moderate peripheral arterial disease per angiogram done in 2016. Continue to monitor Hypertension, poor control, restart lisinopril and metoprolol, continue on Lasix. Monitor electrolytes and renal function closely. History of Frequent PVCs, ventricular bigeminy, continue to monitor. Has been asymptomatic. Mild bilateral carotid stenosis nonobstructive disease. Dizziness/lightheadedness- continue to monitor. carotid duplex and CTA neck revealed nonobstructive PAMELA. Diabetes mellitus, followed and managed by primary care physician Diabetic neuropathy Hyperlipidemia, monitor lipids Erectile dysfunction- likely related to uncontrolled DM Obesity, BMI 44, discussed weight loss and exercise Noncompliance with medications KAREN YANG MD Jun 20, 2017 16:21
[2017-06-20 20:00] VITALS: BP 174/99
[2017-06-20] MEDS ORDERED: GABAPENTIN 600 MG (NEURONTIN) TAB PO SCH (21:00)
[2017-06-20] MEDS: GABAPENTIN 300 MG (NEURONTIN) CAP PO SCH (21:13)
[2017-06-20] MEDS: meTOprolol TARTRATE 25 MG (LOPRESSOR) TABLET PO SCH (21:13)
[2017-06-21 00:08] VITALS: BP 131/65
[2017-06-21 04:00] VITALS: BP 138/76
[2017-06-21] MEDS: CATHETER FLUSH 10 ML SYR IV SCH ×3 (06:07→21:19)
[2017-06-21] MEDS: inSUlin ASPART (NovoLOG) 1 UNIT/0.01 ML (CHARGE PER UNIT) SC SCH ×4 (06:07→21:19)
[2017-06-21] MEDS: FUROSEMIDE 40 MG/4 ML INJ (LASIX) IV SCH (06:07)
[2017-06-21 06:12] LABS: BASOPHILS % (AUTO) 1 % (0-10); EOSINOPHILS # (AUTO) 0.3 10^3/uL (0.0-0.3); EOSINOPHILS % (AUTO) 7 % (0-10); HEMATOCRIT 28 % (40-54); LYMPHOCYTES # (AUTO) 0.7 X 10^3 (1.0-4.0); LYMPHOCYTES % (AUTO) 19 % (12-44); MEAN CORPUSCULAR HEMOGLOBIN 27 PG (25-34); MEAN CORPUSCULAR HGB CONC 32 G/DL (32-36); MEAN CORPUSCULAR VOLUME 85 FL (80-99); MEAN PLATELET VOLUME 11.1 FL (7.4-10.4); MONOCYTES # (AUTO) 0.6 X 10^3 (0.0-1.0); MONOCYTES % (AUTO) 16 % (0-12); NEUTROPHILS # (AUTO) 2.2 X 10^3 (1.8-7.8); NEUTROPHILS % (AUTO) 58 % (42-75); PLATELET COUNT 219 10^3/uL (130-400); RED BLOOD COUNT 3.28 10^6/uL (4.35-5.85); RED CELL DISTRIBUTION WIDTH 12.7 % (10.0-14.5); WHITE BLOOD COUNT 3.8 10^3/uL (4.3-11.0)
[2017-06-21 06:39] LABS: ALBUMIN 3.2 GM/DL (3.2-4.5); BILIRUBIN,TOTAL 0.4 MG/DL (0.1-1.0); CALCIUM 8.4 MG/DL (8.5-10.1); CREATININE SERUM 1.35 MG/DL (0.60-1.30); MAGNESIUM 1.5 MG/DL (1.8-2.4); POTASSIUM 4.4 MMOL/L (3.6-5.0); TOTAL PROTEIN 5.3 GM/DL (6.4-8.2)
--- NOTE | 2017-06-21 07:56 | Cardiology Progress Note ---
Subjective Date Seen by Provider: Jun 21, 2017 Time Seen by Provider: 07:54 Subjective/Events-last exam Patient is sitting in a chair, feeling better, couldn't lay down last night, had mild chest tightness Review of Systems General: No Chills, No Night Sweats, No Fatigue, No Malaise, No Appetite, No Other HEENT: No Head Aches, No Visual Changes, No Eye Pain, No Ear Pain, No Dysphasia , No Sinus Congestion, No Post Nasal Drip, No Sore Throat, No Other Pulmonary: Dyspnea, No Cough, No Pleuritic Chest Pain, No Other Cardiovascular: Chest Pain, Edema, No: Palpitations, Orthopnea, Paroxysmal Noc. Dyspnea, Lt Headedness, Other Objective-Cardiology Exam Last Set of Vital Signs Vital Signs 06/20/17 06/21/17 17:00 04:00 Temp 99.0 Pulse 80 Resp 20 B/P (MAP) 138/76 (96) Pulse Ox 94 O2 Delivery Room Air O2 Flow Rate 2.00 Capillary Refill : Less Than 3 Seconds I&O Intake and Output 06/21/17 00:00 Intake Total 1544 ml Output Total 8100 ml Balance -6556 ml Intake Oral 1544 ml Output Urine Total 8100 ml # Bowel Movements 7 Daily Weight Change No General: Alert, Oriented X3, Cooperative HEENT: Atraumatic, PERRLA Neck: Supple, No JVD, No Thyromegaly Lungs: Normal Air Movement, Other (wet rales at the base) Heart: Regular Rate, Normal S1, Normal S2, No Murmurs Abdomen: Normal Bowel Sounds, Soft, No Tenderness, No Hepatosplenomegaly, No Masses Extremities: No Clubbing, No Cyanosis, Normal Pulses, No Tenderness/Swelling, Other (+1-2 edema) Skin: No Rashes, No Breakdown, No Significant Lesion Neuro: Normal Gait, Normal Speech, Strength at 5/5 X4 Ext, Normal Tone, Sensation Intact Psych/Mental Status: Mental Status NL, Mood NL Results Lab Laboratory Tests 06/20/17 11:30 06/21/17 05:23 A/P-Cardiology Admission Diagnosis Congestive heart failure acute left ventricular systolic and diastolic dysfunction Shortness of breath Hypertension Hyperlipidemia Assessment/Plan Peripheral edema, congestive heart failure acute left ventricular diastolic and systolic dysfunction, ejection fraction 45-50 percent, continue on Lasix with decreasing the dose, started on beta blockers and Bharat inhibitors, continue to monitor Chest pain nonspecific etiology, Multiple risk factors for coronary artery disease last cardiac catheterization was done in 2001. Planning to evaluate stress test. Acute renal insufficiency, secondary to aggressive diuresis, decrease Lasix dose and continue to monitor Mild to moderate peripheral arterial disease per angiogram done in 2016. Continue to monitor Hypertension, poor control, restart lisinopril and metoprolol, continue on Lasix. Monitor electrolytes and renal function closely. History of Frequent PVCs, ventricular bigeminy, continue to monitor. Has been asymptomatic. Mild bilateral carotid stenosis nonobstructive disease. Dizziness/lightheadedness- continue to monitor. carotid duplex and CTA neck revealed nonobstructive PAMELA. Diabetes mellitus, followed and managed by primary care physician Diabetic neuropathy Hyperlipidemia, monitor lipids Erectile dysfunction- likely related to uncontrolled DM Obesity, BMI 44, discussed weight loss and exercise Noncompliance with medications Clinical Quality Measures DVT/VTE Risk/Contraindication: Risk Factor Score Per Nursin RFS Level Per Nursing on Admit: 4+=Very High KAREN YANG MD Jun 21, 2017 07:56
--- NOTE | 2017-06-21 08:38 | History & Physicial ---
History of Present Illness History of Present Illness Reason for visit/HPI patient came to the office short of breath. Getting the whole bunch awake. Feet swelling up to Nancy in the abdomen. Patient again much weight recently. Patient and known diabetic. Hypertension. Noncompliance. Peripheral edema. Short of breath. Patient has sleep apnea on a BiPAP or CPAP. Patient states he's very tired Patient short of breath with exertion Surgeries high injections Date of Admission Jun 20, 2017 at 12:30 Time Seen by Provider: 08:30 I consulted on this patient on 06/21/17 08:34 Attending Physician Yang Sim DO Admitting Physician Yang Sim DO Consult Allergies and Home Medications Allergies Coded Allergies: No Known Drug Allergies (Unverified , 06/20/17) Home Medications Gabapentin 300 Mg Capsule, 600 MG PO 0900,2100, (Reported) TAKES 2 (300MG) CAPSULES Gabapentin 300 Mg Capsule, 300 MG PO 1200, (Reported) Ibuprofen 200 Mg Tablet, 200 MG PO TID PRN for PAIN-MILD, (Reported) Lisinopril 10 Mg Tablet, 10 MG PO DAILY, (Reported) Metformin HCl 500 Mg Tab.er.24, 1,000 MG PO BID WITH MEALS, (Reported) TAKES 2 (500MG) TABLETS Metoprolol Tartrate 25 Mg Tablet, 25 MG PO BID, (Reported) Past Hwchsxz-Tqdpud-Bsbjvg Hx Patient Social History Employed/Student: employed Alcohol Use: Denies Use Recreational Drug Use: No Smoking Status: Never a Smoker Physical Abuse Screen: No Sexual Abuse: No Recent Foreign Travel: No Contact w/other who traveled: No Recent Hopitalizations: No Recent Infectious Disease Expo: No Immunizations Up To Date Tetanus Booster (TDap): Unknown Date of Pneumonia Vaccine: Jun 16, 2015 Date of Influenza Vaccine: Apr 24, 2015 Seasonal Allergies Seasonal Allergies: No Surgeries Yes (NASAL POLYPS REMOVED CHILD, CARDIAC CATH-NO INTERVENTION) Cardiac, Nose Respiratory Yes Currently Using CPAP: Yes Currently Using BIPAP: No Cardiovascular Yes (PAD) Coronary Artery Disease, Hypertension, Irregular Heartbeat, Peripheral Vascular Neurological Yes (NEUROPATHY IN LEGS/ FEET) Neuropathy Reproductive System Hx Reproductive Disorders: Yes (E.D.) Sexually Transmitted Disease: No HIV/AIDS: No Genitourinary No Gastrointestinal Yes Chronic Diarrhea Musculoskeletal No Endocrine History of Endocrine Disorders: Yes Endocrine Disorders: Diabetes, Non-Insulin dep HEENT History of HEENT Disorders: No Cancer No Psychosocial History of Psychiatric Problem: Yes Behavioral Health Disorders: Anxiety Integumentary History of Skin or Integumenta: No Blood Transfusions History of Blood Disorders: No Adverse Reaction to a Blood Tr: No Family Medical History Family Hx: Arthritis G8 BROTHER (knee replacement) Cardiovascular disease 19 FATHER (chf) Deafness or hearing loss 19 MOTHER (vertigo) Diabetes mellitus 19 MOTHER Prostate cancer 19 FATHER Constitutional: malaise, weakness EENTM: no symptoms reported Respiratory: short of breath Cardiovascular: edema Gastrointestinal: no symptoms reported Physical Exam Vital Signs Vital Sign - Last 12Hours 06/20/17 12:12 Temp 98.4 Pulse 89 Resp 16 B/P (MAP) 191/114 (139) Pulse Ox 96 O2 Delivery Nasal Cannula O2 Flow Rate 2.00 Capillary Refill : Less Than 3 Seconds General Appearance: No Apparent Distress, WD/WN Eyes: Bilateral Eye Normal Inspection HEENT: Normal ENT Inspection Neck: Full Range of Motion, Normal Inspection Respiratory: No Accessory Muscle Use, No Respiratory Distress, Decreased Breath Sounds Cardiovascular: Regular Rate, Rhythm, No Murmur Gastrointestinal: Other (edema and abdomen) Assessment/Plan Assessment and Plan peripheral edema. Diabetes. Hypertension. Congestive heart failure. Noncompliance. Shortness of breath. Problems: Clinical Quality Measures DVT/VTE Risk/Contraindication: Risk Factor Score Per Nursin RFS Level Per Nursing on Admit: 4+=Very High YANG SIM DO Jun 21, 2017 08:38
[2017-06-21 08:47] VITALS: BP 148/78
[2017-06-21] MEDS: lisINopril 10 MG (PRINIVIL) TAB PO SCH (09:12)
[2017-06-21] MEDS: meTOprolol TARTRATE 25 MG (LOPRESSOR) TABLET PO SCH ×2 (09:12→21:18)
[2017-06-21] MEDS: GABAPENTIN 300 MG (NEURONTIN) CAP PO SCH ×2 (09:12→21:18)
[2017-06-21] MEDS: OSELTAMIVIR 75 MG (TAMIFLU) BOX OF 10 PO SCH ×2 (09:13→21:19)
[2017-06-21] MEDS: ENOXAPARIN 40 MG/0.4 ML (LOVENOX) SYR SC SCH (09:53)
[2017-06-21] MEDS: MAGNESIUM 1 GM/100 ML IVPB 100 ML IV SCH ×2 (09:53→11:00)
[2017-06-21] MEDS ORDERED: GABAPENTIN 300 MG (NEURONTIN) CAP PO SCH (12:00)
[2017-06-21 12:46] VITALS: BP 129/75
--- NOTE | 2017-06-21 14:14 | Occ Therapy Progress Note ---
Therapy Progress Note 1356 to 1403 Pt seen in room, up in recliner. Pt reported that he has been taking himself to the bathroom, changing his Depends, feeding himself. The only ADL he cannot do is put on his socks due to edema (which is decreasing). He said that his UE strength is WFL except that he thinks he might have a rotator cuff tear on the L side. No skilled OT needs identified. DC OT visit ROBERTO HUNTER OT Jun 21, 2017 14:14
[2017-06-21 16:00] VITALS: BP 150/89
[2017-06-21] MEDS: FUROSEMIDE 40 MG/4 ML INJ (LASIX) IVP SCH (17:26)
[2017-06-21] MEDS: ZOLPIDEM 5 MG (AMBIEN) TAB PO PRN (21:18)
[2017-06-22] VITALS: BP 146/79
[2017-06-22] MEDS: inSUlin ASPART (NovoLOG) 1 UNIT/0.01 ML (CHARGE PER UNIT) SC SCH ×4 (05:42→20:19)
[2017-06-22] MEDS: CATHETER FLUSH 10 ML SYR IV SCH ×3 (06:00→20:21)
[2017-06-22] MEDS: FUROSEMIDE 40 MG/4 ML INJ (LASIX) IVP SCH ×2 (06:00→17:42)
[2017-06-22 06:14] LABS: HEMOGLOBIN 9.3 G/DL (13.3-17.7); MEAN PLATELET VOLUME 10.7 FL (7.4-10.4); RED BLOOD COUNT 3.37 10^6/uL (4.35-5.85); RED CELL DISTRIBUTION WIDTH 12.8 % (10.0-14.5); WHITE BLOOD COUNT 3.6 10^3/uL (4.3-11.0)
[2017-06-22 06:41] LABS: BUN/CREATININE RATIO 25; CALCIUM 8.3 MG/DL (8.5-10.1); CARBON DIOXIDE 24 MMOL/L (21-32); CHLORIDE 106 MMOL/L (98-107); CREATININE SERUM 1.38 MG/DL (0.60-1.30); GFR ESTIMATED 54; GLUCOSE 163 MG/DL (70-105); POTASSIUM 4.3 MMOL/L (3.6-5.0); SODIUM 141 MMOL/L (135-145)
--- NOTE | 2017-06-22 07:36 | Progress Note (SOAP) ---
Subjective Time Seen by Provider: 07:35 Subjective/Events-last exam acute decompensated heart failure. Diabetes. Diabetic neuropathy. Influenza a. Yeast in the inguinal area. Patient feeling better today. Patient feels 40 percent better today. Patient lost another pound. Anemia. GFR 54. BNP 510. Patient having neuropathy of feet Objective Exam Vital Signs Date Time Temp Pulse Resp B/P (MAP) Pulse Ox O2 Delivery O2 Flow Rate FiO2 06/22/17 00:00 97.8 72 18 146/79 (101) 91 NIV CPAP 06/21/17 21:00 96 Room Air 06/21/17 16:00 98.5 72 20 150/89 (109) 95 Room Air 06/21/17 14:23 Room Air 06/21/17 12:46 98.9 76 16 129/75 (93) 92 Room Air 06/21/17 08:47 98.8 81 20 148/78 (101) 95 Room Air 06/21/17 07:55 96 Room Air I & O 06/22/17 07:00 Intake Total 2080 ml Output Total 300 ml Balance 1780 ml Capillary Refill : Less Than 3 Seconds General Appearance: No Apparent Distress, WD/WN HEENT: Normal ENT Inspection Neck: Full Range of Motion, Normal Inspection Respiratory: Chest Non Tender, Lungs Clear, No Accessory Muscle Use, No Respiratory Distress Cardiovascular: Regular Rate, Rhythm, No Murmur Gastrointestinal: non tender, soft Results Lab Laboratory Tests 06/21/17 10:50: Glucometer 186H 06/21/17 15:49: Glucometer 164H 06/21/17 20:52: Glucometer 187H 06/22/17 05:05: Glucometer 171H 06/22/17 05:30: White Blood Count 3.6L, Red Blood Count 3.37L, Hemoglobin 9.3L, Hematocrit 29L, Mean Corpuscular Volume 86, Mean Corpuscular Hemoglobin 28, Mean Corpuscular Hemoglobin Concent 32, Red Cell Distribution Width 12.8, Platelet Count 204, Mean Platelet Volume 10.7H, Sodium Level 141, Potassium Level 4.3, Chloride Level 106, Carbon Dioxide Level 24, Anion Gap 11, Blood Urea Nitrogen 34H, Creatinine 1.38H, Estimat Glomerular Filtration Rate 54, BUN/Creatinine Ratio 25 , Glucose Level 163H, Calcium Level 8.3L, Magnesium Level 2.0, Troponin I < 0.30 , B-Type Natriuretic Peptide 510.5H Microbiology 06/20/17 Influenza Types A,B Antigen (PERICO) - Final, Complete Assessment/Plan Assessment/Plan Assess & Plan/Chief Complaint CHF. Pretibial edema. Diabetes. Diabetic neuropathy. Influenza A. Yeast in inguinal region. Patient have stress test today Clinical Quality Measures DVT/VTE Risk/Contraindication: Risk Factor Score Per Nursin RFS Level Per Nursing on Admit: 4+=Very High MARIIA SIM DO Jun 22, 2017 07:36
[2017-06-22 08:05] VITALS: BP 149/84
--- NOTE | 2017-06-22 08:33 | Cardiology Progress Note ---
Subjective Date Seen by Provider: Jun 22, 2017 Time Seen by Provider: 08:31 Subjective/Events-last exam Patient is in bed, going for stress test later today. Denies any CP at this time. Review of Systems General: No Chills, No Night Sweats, Fatigue, Malaise HEENT: No Visual Changes, No Dysphasia Pulmonary: No Dyspnea, No Cough Cardiovascular: No: Chest Pain, Palpitations, Paroxysmal Noc. Dyspnea, Edema Gastrointestinal: No: Nausea, Vomiting Genitourinary: No Dysuria Musculoskeletal: No: neck pain, back pain Neurological: No: Weakness, Numbness, Change in speech, Confusion Objective-Cardiology Exam Last Set of Vital Signs Vital Signs 06/20/17 06/22/17 17:00 08:05 Temp 98.4 Pulse 74 Resp 20 B/P (MAP) 149/84 (105) Pulse Ox 95 O2 Delivery Room Air O2 Flow Rate 2.00 Capillary Refill : Less Than 3 Seconds I&O Intake and Output 06/22/17 00:00 Intake Total 3280 ml Balance 3280 ml Intake Oral 3280 ml # Voids 8 # Bowel Movements 1 General: Alert, Oriented X3, Cooperative HEENT: Atraumatic, PERRLA Neck: Supple, No JVD, No Thyromegaly Lungs: Normal Air Movement, Other (wet rales at the base) Heart: Regular Rate, Normal S1, Normal S2, No Murmurs Abdomen: Normal Bowel Sounds, Soft, No Tenderness, No Hepatosplenomegaly, No Masses Extremities: No Clubbing, No Cyanosis, Normal Pulses, No Tenderness/Swelling, Other (+1-2 edema) Skin: No Rashes, No Breakdown, No Significant Lesion Neuro: Normal Gait, Normal Speech, Strength at 5/5 X4 Ext, Normal Tone, Sensation Intact Psych/Mental Status: Mental Status NL, Mood NL Results Lab Laboratory Tests 06/22/17 05:30 A/P-Cardiology Admission Diagnosis Congestive heart failure acute left ventricular systolic and diastolic dysfunction Shortness of breath Hypertension Hyperlipidemia Assessment/Plan Peripheral edema, congestive heart failure acute left ventricular diastolic and systolic dysfunction, ejection fraction 45-50 percent, continue on Lasix with decreasing the dose, started on beta blockers and Bharat inhibitors, continue to monitor Chest pain nonspecific etiology, Multiple risk factors for coronary artery disease last cardiac catheterization was done in 2001. Planning to evaluate stress test later today. Influenza A- continue supportive care Acute renal insufficiency, secondary to aggressive diuresis,continue to monitor Mild to moderate peripheral arterial disease per angiogram done in 2016. Continue to monitor Hypertension, controlled. Continue to monitor BP/HR. History of Frequent PVCs, ventricular bigeminy, continue to monitor. Has been asymptomatic. Mild bilateral carotid stenosis nonobstructive disease. Dizziness/lightheadedness- continue to monitor. carotid duplex and CTA neck revealed nonobstructive PAMELA. Diabetes mellitus, followed and managed by primary care physician Diabetic neuropathy Hyperlipidemia, monitor lipids Erectile dysfunction- likely related to uncontrolled DM Obesity, BMI 44, discussed weight loss and exercise Noncompliance with medications Clinical Quality Measures DVT/VTE Risk/Contraindication: Risk Factor Score Per Nursin RFS Level Per Nursing on Admit: 4+=Very High CLAY SOMERS Jun 22, 2017 08:33
[2017-06-22] MEDS: GABAPENTIN 300 MG (NEURONTIN) CAP PO SCH ×4 (08:46→20:20)
--- NOTE | 2017-06-22 09:29 | Diagnostic Imaging Report ---
PATIENT HISTORY: Influenza. TECHNIQUE: Two views of the chest. COMPARISON: 06/20/2017 FINDINGS: Lung volumes are normal. There are increased perihilar opacities, stable since the prior study. No pleural effusion or pneumothorax is seen. No new consolidation is seen. The cardiac silhouette appears upper normal in size. No acute osseous abnormality is seen. IMPRESSION: Stable bilateral perihilar opacities, may represent central vascular congestion. Dictated by: Dictated on workstation # [id number]
[2017-06-22] MEDS: BETAMETHASONE/CLOTRIM CREAM (LOTRISONE) 45 GM TP SCH ×3 (10:19→20:19)
--- NOTE | 2017-06-22 11:10 | Cardiology Progress Note ---
Subjective Date Seen by Provider: Jun 22, 2017 Time Seen by Provider: 11:10 Subjective/Events-last exam patient is laying down in bed, feeling better, breathing better, diagnosed with influenza. Review of Systems General: No Chills, No Night Sweats, No Fatigue, No Malaise, No Appetite, No Other HEENT: No Head Aches, No Visual Changes, No Eye Pain, No Ear Pain, No Dysphasia , No Sinus Congestion, No Post Nasal Drip, No Sore Throat, No Other Pulmonary: Dyspnea, Cough, No Pleuritic Chest Pain, No Other Cardiovascular: Edema, No: Chest Pain, Palpitations, Orthopnea, Paroxysmal Noc. Dyspnea, Lt Headedness, Other Objective-Cardiology Exam Last Set of Vital Signs Vital Signs 06/20/17 06/22/17 06/22/17 17:00 08:05 09:59 Temp 98.4 Pulse 74 Resp 20 B/P (MAP) 149/84 (105) Pulse Ox 96 O2 Delivery Room Air O2 Flow Rate 2.00 Capillary Refill : Less Than 3 Seconds I&O Intake and Output 06/22/17 00:00 Intake Total 3280 ml Balance 3280 ml Intake Oral 3280 ml # Voids 8 # Bowel Movements 1 General: Alert, Oriented X3, Cooperative HEENT: Atraumatic, PERRLA Neck: Supple, No JVD, No Thyromegaly Lungs: Normal Air Movement, Other (wet rales at the base) Heart: Regular Rate, Normal S1, Normal S2, No Murmurs Abdomen: Normal Bowel Sounds, Soft, No Tenderness, No Hepatosplenomegaly, No Masses Extremities: No Clubbing, No Cyanosis, Normal Pulses, No Tenderness/Swelling, Other (+1-2 edema) Skin: No Rashes, No Breakdown, No Significant Lesion Neuro: Normal Gait, Normal Speech, Strength at 5/5 X4 Ext, Normal Tone, Sensation Intact Psych/Mental Status: Mental Status NL, Mood NL Results Lab Laboratory Tests 06/22/17 05:30 A/P-Cardiology Admission Diagnosis Congestive heart failure acute left ventricular systolic and diastolic dysfunction Shortness of breath Hypertension Hyperlipidemia Assessment/Plan Peripheral edema, congestive heart failure acute left ventricular diastolic and systolic dysfunction, ejection fraction 45-50 percent, continue on Lasix with decreasing the dose, started on beta blockers and Bharat inhibitors, planning for stress test today Chest pain nonspecific etiology, Multiple risk factors for coronary artery disease last cardiac catheterization was done in 2001. Planning to evaluate stress test later today. Influenza A- continue supportive care Acute renal insufficiency, secondary to aggressive diuresis, continue to monitor Mild to moderate peripheral arterial disease per angiogram done in 2016. Continue to monitor Hypertension, controlled. Continue to monitor BP/HR. History of Frequent PVCs, ventricular bigeminy, continue to monitor. Has been asymptomatic. Mild bilateral carotid stenosis nonobstructive disease. Dizziness/lightheadedness- continue to monitor. carotid duplex and CTA neck revealed nonobstructive PAMELA. Diabetes mellitus, followed and managed by primary care physician Diabetic neuropathy Hyperlipidemia, monitor lipids Erectile dysfunction- likely related to uncontrolled DM Obesity, BMI 44, discussed weight loss and exercise Noncompliance with medications Clinical Quality Measures DVT/VTE Risk/Contraindication: Risk Factor Score Per Nursin RFS Level Per Nursing on Admit: 4+=Very High KAREN YANG MD Jun 22, 2017 11:10
[2017-06-22] MEDS: OSELTAMIVIR 75 MG (TAMIFLU) BOX OF 10 PO SCH ×2 (12:22→20:20)
[2017-06-22] MEDS: meTOprolol TARTRATE 25 MG (LOPRESSOR) TABLET PO SCH ×2 (12:22→20:20)
[2017-06-22] MEDS: lisINopril 10 MG (PRINIVIL) TAB PO SCH (12:23)
[2017-06-22] MEDS: ENOXAPARIN 40 MG/0.4 ML (LOVENOX) SYR SC SCH (12:33)
[2017-06-22] MEDS ORDERED: CATHETER FLUSH 10 ML SYR IV PRN (12:45)
[2017-06-22] MEDS ORDERED: REGADENOSON 0.4 MG/5 ML SYR (LEXISCAN) IV ONE ×2 (13:04→14:30)
[2017-06-22 14:17] VITALS: BP 189/109
[2017-06-22 16:25] VITALS: BP 187/93
[2017-06-22] MEDS: ZOLPIDEM 5 MG (AMBIEN) TAB PO PRN (20:20)
[2017-06-23] VITALS (13 sets, daily range): BP systolic 140–184; BP diastolic 81–109
--- NOTE | 2017-06-23 00:03 | STRESS TEST ---
DATE OF SERVICE: 06/22/2017 LEXISCAN MYOVIEW STRESS TEST REPORT REFERRING PHYSICIAN: Dr. Younger. Baseline heart rate is 75. Baseline blood pressure 189/109. Baseline EKG is sinus rhythm with no ischemic changes. SUMMARY: The patient was injected with 10.84 mCi of technetium-99 Myoview and the resting images were obtained. Then, the patient received 0.4 mg of Lexiscan followed by 32.3 mCi of technetium-99 Myoview. Throughout the test, there were no EKG changes. The resting and stress images were reviewed and compared in the short axis, horizontal long axis, and vertical long axis views. Review of the images showed diaphragmatic attenuation with mild decreased uptake at the mid inferior wall and inferoapical segment with subtle reversibility. SSS is 7, SDS 3, TID value 1.08. On the gated images, the left ventricle appeared to be prominent with diffuse left ventricular hypokinesia, calculated ejection fraction 31%. CONCLUSION: 1. The patient tolerated Lexiscan well. 2. Diaphragmatic attenuation with mild decreased uptake at the mid inferior wall and inferolateral wall with subtle reversibility. 3. Dilated left ventricle with diffuse left ventricular hypokinesia, calculated ejection fraction 31%. Job ID: [id number] DocumentID: [id number] Dictated Date: 06/22/2017 17:38:59 Vehicle And Equipment [employer]er Date: 06/22/2017 23:52:38 Dictated By: KAREN YANG MD
[2017-06-23] MEDS: FUROSEMIDE 40 MG/4 ML INJ (LASIX) IVP SCH ×2 (06:11→17:44)
[2017-06-23] MEDS: inSUlin ASPART (NovoLOG) 1 UNIT/0.01 ML (CHARGE PER UNIT) SC SCH ×4 (06:11→20:55)
[2017-06-23] MEDS: CATHETER FLUSH 10 ML SYR IV SCH ×3 (06:11→20:45)
[2017-06-23 06:17] LABS: BASOPHILS % (AUTO) 1 % (0-10); EOSINOPHILS # (AUTO) 0.4 10^3/uL (0.0-0.3); EOSINOPHILS % (AUTO) 8 % (0-10); HEMATOCRIT 32 % (40-54); LYMPHOCYTES % (AUTO) 23 % (12-44); MEAN CORPUSCULAR HEMOGLOBIN 27 PG (25-34); MEAN CORPUSCULAR HGB CONC 32 G/DL (32-36); MEAN CORPUSCULAR VOLUME 86 FL (80-99); MEAN PLATELET VOLUME 11.2 FL (7.4-10.4); MONOCYTES # (AUTO) 0.4 X 10^3 (0.0-1.0); MONOCYTES % (AUTO) 9 % (0-12); NEUTROPHILS # (AUTO) 2.6 X 10^3 (1.8-7.8); NEUTROPHILS % (AUTO) 59 % (42-75); PLATELET COUNT 216 10^3/uL (130-400); RED BLOOD COUNT 3.66 10^6/uL (4.35-5.85); RED CELL DISTRIBUTION WIDTH 12.7 % (10.0-14.5); WHITE BLOOD COUNT 4.4 10^3/uL (4.3-11.0)
[2017-06-23] MEDS ORDERED: LIDOCAINE 1% INJ 50 ML (XYLOCAINE) VIAL ONE (06:28)
[2017-06-23] MEDS ORDERED: HEParin (CATH LAB) 2,000 ML IV ONE (06:28)
[2017-06-23] MEDS ORDERED: NS IV 1000 ML 1,000 ML ONE (06:28)
[2017-06-23 06:45] LABS: ALANINE AMINOTRANSFERASE 22 U/L (0-55); ALBUMIN 3.2 GM/DL (3.2-4.5); ALKALINE PHOSPHATASE 101 U/L (40-136); BILIRUBIN,TOTAL 0.3 MG/DL (0.1-1.0); BUN/CREATININE RATIO 28; CALCIUM 8.6 MG/DL (8.5-10.1); CARBON DIOXIDE 26 MMOL/L (21-32); CHLORIDE 105 MMOL/L (98-107); GFR ESTIMATED > 60; GLUCOSE 177 MG/DL (70-105); POTASSIUM 4.4 MMOL/L (3.6-5.0); SODIUM 141 MMOL/L (135-145); TOTAL PROTEIN 5.6 GM/DL (6.4-8.2)
--- NOTE | 2017-06-23 07:02 | Progress Note (SOAP) ---
Subjective Time Seen by Provider: 07:00 Subjective/Events-last exam patient had a stress test and ejection fraction 31 percent. Influenza better. Patient has diabetic neuropathy increase the gabapentin. Patient have a heart catheter today. Patient lost 9 pounds since yesterday. Patient hypertensive today probably with anxiety of heart catheter. Objective Exam Vital Signs Date Time Temp Pulse Resp B/P (MAP) Pulse Ox O2 Delivery O2 Flow Rate FiO2 06/23/17 04:53 98.7 79 18 184/92 (122) 94 Room Air 06/23/17 00:47 98.7 79 18 184/92 (122) 94 Room Air 06/23/17 00:10 98.7 79 18 184/92 (122) 94 Room Air 06/22/17 21:00 96 Room Air 06/22/17 16:25 97.6 76 187/93 (124) 95 Room Air 06/22/17 16:25 97.6 76 20 187/93 (124) 95 Room Air 06/22/17 14:17 75 189/109 (135) 95 06/22/17 09:59 96 Room Air 06/22/17 08:05 98.4 74 20 149/84 (105) 95 Room Air I & O 06/23/17 07:00 Intake Total 1940 ml Balance 1940 ml Capillary Refill : Less Than 3 Seconds General Appearance: No Apparent Distress, WD/WN HEENT: Normal ENT Inspection Neck: Full Range of Motion, Normal Inspection Respiratory: Chest Non Tender, Normal Breath Sounds, No Accessory Muscle Use, No Respiratory Distress Cardiovascular: Regular Rate, Rhythm, No Murmur Gastrointestinal: non tender, soft Results Lab Laboratory Tests 06/23/17 05:30 Laboratory Tests 06/22/17 10:45: Glucometer 134H 06/22/17 16:24: Glucometer 130H 06/22/17 20:03: Glucometer 166H 06/23/17 05:30: White Blood Count 4.4, Red Blood Count 3.66L, Hemoglobin 10.0L, Hematocrit 32L, Mean Corpuscular Volume 86, Mean Corpuscular Hemoglobin 27, Mean Corpuscular Hemoglobin Concent 32, Red Cell Distribution Width 12.7, Platelet Count 216, Mean Platelet Volume 11.2H, Neutrophils (%) (Auto) 59, Lymphocytes (%) (Auto) 23 , Monocytes (%) (Auto) 9, Eosinophils (%) (Auto) 8, Basophils (%) (Auto) 1, Neutrophils # (Auto) 2.6, Lymphocytes # (Auto) 1.0, Monocytes # (Auto) 0.4, Eosinophils # (Auto) 0.4H, Basophils # (Auto) 0.0, Sodium Level 141, Potassium Level 4.4, Chloride Level 105, Carbon Dioxide Level 26, Anion Gap 10, Blood Urea Nitrogen 33H, Creatinine 1.20, Estimat Glomerular Filtration Rate > 60, BUN /Creatinine Ratio 28, Glucose Level 177H, Calcium Level 8.6, Total Bilirubin 0.3 , Aspartate Amino Transf (AST/SGOT) 20, Alanine Aminotransferase (ALT/SGPT) 22, Alkaline Phosphatase 101, Total Protein 5.6L, Albumin 3.2 06/23/17 05:45: Glucometer 172H Microbiology 06/20/17 Influenza Types A,B Antigen (PERICO) - Final, Complete Assessment/Plan Assessment/Plan Assess & Plan/Chief Complaint CHF. Pretibial edema. Diabetes. Diabetic neuropathy. Influenza A. Yeast in inguinal region. Patient have stress test today. . 06/23/17. Patient lost 21 pounds since admission there CHF. Pretibial edema. Diabetes. Diabetic neuropathy. Influenza A feeling better with this. Patient to have heart catheter today Clinical Quality Measures DVT/VTE Risk/Contraindication: Risk Factor Score Per Nursin RFS Level Per Nursing on Admit: 4+=Very High MARIIA SIM DO Jun 23, 2017 07:02
[2017-06-23] MEDS ORDERED: GABAPENTIN 300 MG (NEURONTIN) CAP PO NR (07:03)
[2017-06-23] MEDS: OSELTAMIVIR 75 MG (TAMIFLU) BOX OF 10 PO SCH ×2 (07:20→21:03)
[2017-06-23] MEDS: GABAPENTIN 300 MG (NEURONTIN) CAP PO SCH ×4 (07:20→21:02)
[2017-06-23] MEDS: lisINopril 10 MG (PRINIVIL) TAB PO SCH (07:20)
[2017-06-23] MEDS: meTOprolol TARTRATE 25 MG (LOPRESSOR) TABLET PO SCH ×2 (07:20→21:03)
[2017-06-23] MEDS: ENOXAPARIN 40 MG/0.4 ML (LOVENOX) SYR SC SCH (07:20)
[2017-06-23] MEDS: BETAMETHASONE/CLOTRIM CREAM (LOTRISONE) 45 GM TP SCH ×3 (07:21→21:03)
--- NOTE | 2017-06-23 07:43 | Cardiology Progress Note ---
Subjective Date Seen by Provider: Jun 23, 2017 Time Seen by Provider: 07:42 Subjective/Events-last exam Patient is sitting in a chair, feeling better, denied any chest pain, feeling that he has better energy at this time. Review of Systems General: No Chills, No Night Sweats, No Fatigue, No Malaise, No Appetite, No Other HEENT: No Head Aches, No Visual Changes, No Eye Pain, No Ear Pain, No Dysphasia , No Sinus Congestion, No Post Nasal Drip, No Sore Throat, No Other Pulmonary: No Dyspnea, No Cough, No Pleuritic Chest Pain, No Other Cardiovascular: No: Chest Pain, Palpitations, Orthopnea, Paroxysmal Noc. Dyspnea, Edema, Lt Headedness, Other Objective-Cardiology Exam Last Set of Vital Signs Vital Signs 06/20/17 06/23/17 06/23/17 17:00 04:53 07:34 Temp 98.7 Pulse 79 Resp 18 B/P (MAP) 184/92 (122) Pulse Ox 94 O2 Delivery Room Air O2 Flow Rate 2.00 Capillary Refill : Less Than 3 Seconds I&O Intake and Output 06/23/17 00:00 Intake Total 1440 ml Output Total 300 ml Balance 1140 ml Intake Oral 1440 ml Output Urine Total 300 ml # Voids 5 # Bowel Movements 1 General: Alert, Oriented X3, Cooperative HEENT: Atraumatic, PERRLA Neck: Supple, No JVD, No Thyromegaly Lungs: Normal Air Movement, Other (wet rales at the base) Heart: Regular Rate, Normal S1, Normal S2, No Murmurs Abdomen: Normal Bowel Sounds, Soft, No Tenderness, No Hepatosplenomegaly, No Masses Extremities: No Clubbing, No Cyanosis, Normal Pulses, No Tenderness/Swelling, Other (+1-2 edema) Skin: No Rashes, No Breakdown, No Significant Lesion Neuro: Normal Gait, Normal Speech, Strength at 5/5 X4 Ext, Normal Tone, Sensation Intact Psych/Mental Status: Mental Status NL, Mood NL Results Lab Laboratory Tests 06/23/17 05:30 A/P-Cardiology Admission Diagnosis Congestive heart failure acute left ventricular systolic and diastolic dysfunction Shortness of breath Hypertension Hyperlipidemia Assessment/Plan Peripheral edema, congestive heart failure acute left ventricular diastolic and systolic dysfunction, ejection fraction 45-50 percent, continue on Lasix with decreasing the dose, started on beta blockers and Bharat inhibitors, abnormal stress test, planning for cardiac catheterization Chest pain nonspecific etiology, Multiple risk factors for coronary artery disease last cardiac catheterization was done in 2001, planning for cardiac catheterization. Influenza A- continue supportive care Acute renal insufficiency, better today, continue to monitor renal function Mild to moderate peripheral arterial disease per angiogram done in 2016. Continue to monitor Hypertension, controlled. Continue to monitor BP/HR. History of Frequent PVCs, ventricular bigeminy, continue to monitor. Has been asymptomatic. Mild bilateral carotid stenosis nonobstructive disease. Dizziness/lightheadedness- continue to monitor. carotid duplex and CTA neck revealed nonobstructive PAMELA. Diabetes mellitus, followed and managed by primary care physician Diabetic neuropathy Hyperlipidemia, monitor lipids Erectile dysfunction- likely related to uncontrolled DM Obesity, BMI 44, discussed weight loss and exercise Noncompliance with medications Clinical Quality Measures DVT/VTE Risk/Contraindication: Risk Factor Score Per Nursin RFS Level Per Nursing on Admit: 4+=Very High KAREN YANG MD Jun 23, 2017 07:43
[2017-06-23] MEDS ORDERED: NS IV 1000 ML 1,000 ML IV SCH (07:45)
[2017-06-23 08:01] LABS: PROTHROMBIN TIME PATIENT 13.3 SEC (12.2-14.7)
[2017-06-23] MEDS ORDERED: fentaNYL INJECTION 100 MCG/2 ML AMP ONE (14:00)
[2017-06-23] MEDS ORDERED: MIDAZOLAM 5 MG/5 ML (VERSED) VIAL ONE (14:00)
[2017-06-23] MEDS ORDERED: ONDANSETRON 4 MG/2 ML (SDV) Z0FRAN ONE ×2 (15:28→16:00)
[2017-06-23] MEDS ORDERED: meTOprolol 5 MG/5 ML (LOPRESSOR) VIAL ONE (15:39)
[2017-06-23] MEDS ORDERED: ENALAPRILAT 2.5 MG/2 ML (VASOTEC) VIAL IV ONE (15:39)
[2017-06-23] MEDS ORDERED: ENOXAPARIN 100 MG/1 ML (LOVENOX) SYR ONE (15:44)
[2017-06-23] MEDS ORDERED: NITROGLYCERIN DRIP 25 MG/D5W 250 ML IV ONE (16:01)
[2017-06-23] MEDS ORDERED: CLOPIDOGREL 300 MG (PLAVIX) TABLET PO ONE (16:21)
[2017-06-23] MEDS ORDERED: ASPIRIN 325 MG (5 GR) TABLET ONE (16:21)
--- NOTE | 2017-06-23 16:27 | Cardiac Cath Report ---
Cardiac Cath Report Physician (s)/Script Girl (s) Physician KAREN YANG MD Pre-Procedure Diagnosis Pre-Procedure Diagnosis: CAD Post-Procedure Note Procedure Start Date: Jun 23, 2017 Name of Procedure: Left heart catheterization, left ventricular pressure Stent with drug-eluting stent to the LAD Findings/Procedure Note PROCEDURE NOTE: After explaining the procedure to the patient, all pros and cons were explained, all questions were answered. The patient signed the consent and then she was placed on the cardiac catheterization laboratory. The patient was placed on the cardiac catheterization laboratory. Groin was prepped SL fashion local anesthesia was used. Sheath placed in the artery. Yoel right and left catheter were used to access the coronary system. Pigtail was used to access the left ventricular cavity. Left ventriculogram was not done, pressure was measured Patient has severe stenosis in the mid LAD, FL guide was used, BMW wire was advanced and parked in the distal LAD. Predilatation with 2.520 mm balloon and then drug-eluting stent at [place] 3.018 mm expanded to 3.25 mm with excellent results. Proximal to the stent there is mild stenosis nonobstructive disease. At the end of the procedure the sheath was removed. Closure device was used FINDINGS: Hemodynamics LV 191/27, end-diastolic pressure of 27 Aorta 189/102 mean of 126 ANATOMY: Left Main has mild disease Left Anterior Descending has severe stenosis at the midportion, balloon angioplasty then deployment of drug-eluting stent 3.018 mm expanded to 3.25 mm with excellent results, proximal to the stent there is [id number] disease nonobstructive disease which will be monitored closely Left Circumflex is moderate in size with moderate disease at the distal portion Right Coronory Artery has mild disease nonobstructive disease LV Gram was not done, pressure was measured CONCLUSION: 1. Severe stenosis in the mid LAD, successful angioplasty and deployment of drug-eluting stent L [place] 3.018 mm expanded to 3.25 mm, proximal to the stent there is [id number] disease nonobstructive disease 2. Moderate disease at the distal circumflex artery otherwise nonobstructive disease 3. Severe hypertension with elevated left ventricular end-diastolic pressure. DISCUSSION AND RECOMMENDATION: I will continue maximizing medical therapy at this time, had aspirin and Plavix , increase blood pressure medications. Anesthesia Type: Conscious Sedation Estimated blood loss (mL): 20 ml Contrast Amount: 190 ml Total Radiation Dose: 1909 mGy Post-Procedure Diagnosis Post-operative diagnosis: Coronary artery disease Hypertension Hyperlipidemia Influenza KAREN YANG MD Jun 23, 2017 16:27
[2017-06-23] MEDS ORDERED: PATIENT MAY USE OWN MEDS, ALL PO SCH (16:30)
[2017-06-23] MEDS ORDERED: lisINopril 20 MG (ZESTRIL) TAB PO NR (16:30)
[2017-06-23] MEDS: NITROGLYCERIN DRIP 25 MG/D5W 250 ML IV SCH ×2 (18:01→23:09)
[2017-06-23] MEDS ORDERED: FUROSEMIDE 40 MG/4 ML INJ (LASIX) IVP NR (20:00)
[2017-06-23] MEDS: ZOLPIDEM 5 MG (AMBIEN) TAB PO PRN (23:08)
[2017-06-24] VITALS (13 sets, daily range): BP systolic 116–188; BP diastolic 70–97
[2017-06-24] MEDS: NS IV 1000 ML 1,000 ML IV SCH ×2 (03:04→03:05)
[2017-06-24 05:12] LABS: BASOPHILS % (AUTO) 0 % (0-10); EOSINOPHILS # (AUTO) 0.2 10^3/uL (0.0-0.3); EOSINOPHILS % (AUTO) 3 % (0-10); HEMATOCRIT 28 % (40-54); HEMOGLOBIN 8.8 G/DL (13.3-17.7); LYMPHOCYTES % (AUTO) 19 % (12-44); MEAN CORPUSCULAR HEMOGLOBIN 27 PG (25-34); MEAN CORPUSCULAR HGB CONC 32 G/DL (32-36); MEAN CORPUSCULAR VOLUME 85 FL (80-99); MEAN PLATELET VOLUME 10.6 FL (7.4-10.4); MONOCYTES # (AUTO) 0.5 X 10^3 (0.0-1.0); MONOCYTES % (AUTO) 9 % (0-12); NEUTROPHILS # (AUTO) 3.8 X 10^3 (1.8-7.8); NEUTROPHILS % (AUTO) 69 % (42-75); PLATELET COUNT 208 10^3/uL (130-400); RED BLOOD COUNT 3.23 10^6/uL (4.35-5.85); RED CELL DISTRIBUTION WIDTH 12.6 % (10.0-14.5); WHITE BLOOD COUNT 5.5 10^3/uL (4.3-11.0)
[2017-06-24 05:31] LABS: BUN/CREATININE RATIO 25; CARBON DIOXIDE 27 MMOL/L (21-32); CHLORIDE 105 MMOL/L (98-107); CREATININE SERUM 1.24 MG/DL (0.60-1.30); GFR ESTIMATED > 60; GLUCOSE 214 MG/DL (70-105); MAGNESIUM 1.7 MG/DL (1.8-2.4); PHOSPHORUS 4.3 MG/DL (2.3-4.7); POTASSIUM 4.1 MMOL/L (3.6-5.0); SODIUM 142 MMOL/L (135-145)
[2017-06-24] MEDS: CATHETER FLUSH 10 ML SYR IV SCH ×3 (05:32→22:11)
[2017-06-24] MEDS: FUROSEMIDE 40 MG/4 ML INJ (LASIX) IVP SCH ×2 (06:04→17:40)
[2017-06-24] MEDS: inSUlin ASPART (NovoLOG) 1 UNIT/0.01 ML (CHARGE PER UNIT) SC SCH ×4 (06:04→21:00)
[2017-06-24] MEDS: GABAPENTIN 300 MG (NEURONTIN) CAP PO SCH ×3 (06:05→20:35)
--- NOTE | 2017-06-24 08:06 | Progress Note (SOAP) ---
Subjective Time Seen by Provider: 08:00 Subjective/Events-last exam PATIENT FEELING GOOD THIS MORNING. pATIENT HAD STENT PUT IN IN THE lad . Hemoglobin A1c 7.5 metformin. Influenza. Diabetes. Acute decompensated heart failure. Anemia Objective Exam Vital Signs Date Time Temp Pulse Resp B/P (MAP) Pulse Ox O2 Delivery O2 Flow Rate FiO2 06/24/17 06:00 68 12 131/71 (91) 96 Nasal Cannula 2.00 06/24/17 05:00 72 27 138/83 (101) 99 Nasal Cannula 2.00 06/24/17 04:00 69 13 126/70 (88) 97 Nasal Cannula 2.00 06/24/17 03:00 75 13 150/86 (107) 98 Nasal Cannula 2.00 06/24/17 02:00 81 23 124/81 (95) 89 Nasal Cannula 2.00 06/24/17 01:00 75 06/24/17 01:00 76 13 127/70 (89) 97 Nasal Cannula 2.00 06/24/17 00:00 77 13 116/76 (89) Nasal Cannula 2.00 06/23/17 23:09 97.6 72 12 150/90 94 Nasal Cannula 2.00 06/23/17 23:00 88 23 140/84 (102) 93 Nasal Cannula 2.00 06/23/17 22:00 79 29 146/81 (102) 88 Nasal Cannula 2.00 06/23/17 21:00 75 17 155/94 (114) 96 Nasal Cannula 2.00 06/23/17 20:08 97.6 Nasal Cannula 2.00 06/23/17 20:00 71 12 164/96 (118) 97 Nasal Cannula 4.00 06/23/17 20:00 95 Nasal Cannula 2.00 06/23/17 19:00 78 9 153/94 (113) 98 Nasal Cannula 4.00 06/23/17 19:00 72 06/23/17 18:01 70 150/90 06/23/17 18:00 70 12 150/90 (110) 94 Nasal Cannula 4.00 06/23/17 17:00 69 15 174/106 (128) 97 Nasal Cannula 4.00 06/23/17 16:58 70 06/23/17 16:50 96.9 94 Nasal Cannula 4.00 06/23/17 16:45 69 11 172/109 (130) 94 Nasal Cannula 4.00 06/23/17 12:00 172/85 (114) I & O 06/24/17 07:00 Intake Total 1640 ml Output Total 1750 ml Balance -110 ml Capillary Refill : Less Than 3 Seconds General Appearance: No Apparent Distress, WD/WN Results Lab Laboratory Tests 06/24/17 04:45 Laboratory Tests 06/23/17 11:02: Glucometer 180H 06/23/17 17:04: Glucometer 155H 06/23/17 20:53: Glucometer 157H 06/24/17 04:45: White Blood Count 5.5, Red Blood Count 3.23L, Hemoglobin 8.8L, Hematocrit 28L, Mean Corpuscular Volume 85, Mean Corpuscular Hemoglobin 27, Mean Corpuscular Hemoglobin Concent 32, Red Cell Distribution Width 12.6, Platelet Count 208, Mean Platelet Volume 10.6H, Neutrophils (%) (Auto) 69, Lymphocytes (%) (Auto) 19 , Monocytes (%) (Auto) 9, Eosinophils (%) (Auto) 3, Basophils (%) (Auto) 0, Neutrophils # (Auto) 3.8, Lymphocytes # (Auto) 1.0, Monocytes # (Auto) 0.5, Eosinophils # (Auto) 0.2, Basophils # (Auto) 0.0, Sodium Level 142, Potassium Level 4.1, Chloride Level 105, Carbon Dioxide Level 27, Anion Gap 10, Blood Urea Nitrogen 31H, Creatinine 1.24, Estimat Glomerular Filtration Rate > 60, BUN /Creatinine Ratio 25, Glucose Level 214H, Calcium Level 8.0L, Phosphorus Level 4.3, Magnesium Level 1.7L Microbiology 06/22/17 MRSA Screen - Final, Complete MRSA not isolated Assessment/Plan Assessment/Plan Assess & Plan/Chief Complaint CHF. Pretibial edema. Diabetes. Diabetic neuropathy. Influenza A. Yeast in inguinal region. Patient have stress test today. . 06/23/17. Patient lost 21 pounds since admission there CHF. Pretibial edema. Diabetes. Diabetic neuropathy. Influenza A feeling better with this. Patient to have heart catheter today. . 06/24/17. Pretibial edema. Diabetes. Diabetic neuropathy. Influenza A. Coronary artery disease. Stent put in LAD drug-eluting stent. Patient feeling better Clinical Quality Measures DVT/VTE Risk/Contraindication: Risk Factor Score Per Nursin RFS Level Per Nursing on Admit: 4+=Very High MARIIA SIM DO Jun 24, 2017 08:06
[2017-06-24] MEDS: CLOPIDOGREL 75 MG (PLAVIX) TABLET PO SCH (08:13)
[2017-06-24] MEDS: ASPIRIN E.C. 81 MG (ECOTRIN) TAB PO SCH (08:13)
[2017-06-24] MEDS: HYDROCHLOROTHIAZIDE 25 MG (HCTZ) TAB PO SCH (08:14)
[2017-06-24] MEDS: lisINopril 20 MG (ZESTRIL) TAB PO SCH (08:14)
[2017-06-24] MEDS: meTOprolol TARTRATE 25 MG (LOPRESSOR) TABLET PO SCH (08:14)
[2017-06-24] MEDS: ENOXAPARIN 40 MG/0.4 ML (LOVENOX) SYR SC SCH (08:15)
[2017-06-24] MEDS: OSELTAMIVIR 75 MG (TAMIFLU) BOX OF 10 PO SCH ×2 (08:17→20:35)
[2017-06-24] MEDS: BETAMETHASONE/CLOTRIM CREAM (LOTRISONE) 45 GM TP SCH ×3 (08:18→20:36)
--- NOTE | 2017-06-24 09:10 | Cardiology Progress Note ---
Subjective Date Seen by Provider: Jun 24, 2017 Time Seen by Provider: 09:05 Subjective/Events-last exam Patient is in bed, feeling better, no chest pain or shortness of breath, still having edema Review of Systems General: No Chills, No Night Sweats, No Fatigue, No Malaise, No Appetite, No Other HEENT: No Head Aches, No Visual Changes, No Eye Pain, No Ear Pain, No Dysphasia , No Sinus Congestion, No Post Nasal Drip, No Sore Throat, No Other Pulmonary: Dyspnea, No Cough, No Pleuritic Chest Pain, No Other Cardiovascular: Edema, No: Chest Pain, Palpitations, Orthopnea, Paroxysmal Noc. Dyspnea, Lt Headedness, Other Objective-Cardiology Exam Last Set of Vital Signs Vital Signs 06/23/17 06/24/17 23:09 09:00 Temp 97.6 Pulse 82 Resp 15 B/P (MAP) 177/96 (123) Pulse Ox 93 O2 Delivery Nasal Cannula O2 Flow Rate 2.00 Capillary Refill : Less Than 3 Seconds I&O Intake and Output 06/24/17 00:00 Intake Total 2140 ml Output Total 1350 ml Balance 790 ml Intake Oral 1640 ml IV Total 500 ml Output Urine Total 1350 ml # Voids 5 # Bowel Movements 1 General: Alert, Oriented X3, Cooperative HEENT: Atraumatic, PERRLA Neck: Supple, No JVD, No Thyromegaly Lungs: Normal Air Movement, Other (wet rales at the base) Heart: Regular Rate, Normal S1, Normal S2, No Murmurs Abdomen: Normal Bowel Sounds, Soft, No Tenderness, No Hepatosplenomegaly, No Masses Extremities: No Clubbing, No Cyanosis, Normal Pulses, No Tenderness/Swelling, Other (+1-2 edema) Skin: No Rashes, No Breakdown, No Significant Lesion Neuro: Normal Gait, Normal Speech, Strength at 5/5 X4 Ext, Normal Tone, Sensation Intact Psych/Mental Status: Mental Status NL, Mood NL Results Lab Laboratory Tests 06/24/17 04:45 A/P-Cardiology Admission Diagnosis Congestive heart failure acute left ventricular systolic and diastolic dysfunction Shortness of breath Hypertension Hyperlipidemia Assessment/Plan Peripheral edema, congestive heart failure acute left ventricular diastolic and systolic dysfunction, ejection fraction 45-50 percent, continue on Lasix, lisinopril and Metoprolol Chest pain nonspecific etiology, better post stent to LAD Coronary artery disease, cardiac cath done on 06/23/17 1. Severe stenosis in the mid LAD, successful angioplasty and deployment of drug-eluting stent L [place] 3.018 mm expanded to 3.25 mm, proximal to the stent there is [id number] disease nonobstructive disease 2. Moderate disease at the distal circumflex artery otherwise nonobstructive disease 3. Severe hypertension with elevated left ventricular end-diastolic pressure. Influenza A- continue supportive care Acute renal insufficiency, better, continue to monitor Mild to moderate peripheral arterial disease per angiogram done in 2016. Continue to monitor Hypertension, poorly controlled, I will increase Lisinopril and Metoprolol dose and monitor tolerance and response History of Frequent PVCs, ventricular bigeminy, continue to monitor. Has been asymptomatic. Mild bilateral carotid stenosis nonobstructive disease. Dizziness/lightheadedness- continue to monitor. carotid duplex and CTA neck revealed nonobstructive PAMELA. Diabetes mellitus, followed and managed by primary care physician Diabetic neuropathy and nephropathy Hyperlipidemia, good control, continue to monitor Erectile dysfunction- likely related to uncontrolled DM and neuropathy in addition to peripheral arterial disease Obesity, BMI 44, discussed weight loss and exercise Noncompliance with medications, educated in [facility] regarding compliance Clinical Quality Measures DVT/VTE Risk/Contraindication: Risk Factor Score Per Nursin RFS Level Per Nursing on Admit: 4+=Very High KAREN YANG MD Jun 24, 2017 09:10
[2017-06-24] MEDS ORDERED: meTOprolol TARTRATE 25 MG (LOPRESSOR) TABLET PO ONE (09:30)
--- NOTE | 2017-06-24 09:53 | Diagnostic Imaging Report ---
INDICATION: Shortness of breath. EXAMINATION: Portable chest at 4:59 AM. There is cardiomegaly. Pulmonary vascularity is normal. Lungs are clear. IMPRESSION: Cardiomegaly without evidence of pulmonary venous hypertension. Dictated by: Dictated on workstation # [id number]
[2017-06-24] MEDS: meTOprolol TARTRATE 50 MG (LOPRESSOR) TAB PO SCH (20:36)
[2017-06-24] MEDS ORDERED: cloNIDine 0.1 MG (CATAPRES) TAB PO ONE (22:30)
[2017-06-25] VITALS: BP 122/88
[2017-06-25 04:00] VITALS: BP 156/82
[2017-06-25 05:52] LABS: HEMOGLOBIN 9.1 G/DL (13.3-17.7); MEAN PLATELET VOLUME 10.5 FL (7.4-10.4); RED BLOOD COUNT 3.41 10^6/uL (4.35-5.85); RED CELL DISTRIBUTION WIDTH 12.8 % (10.0-14.5); WHITE BLOOD COUNT 7.7 10^3/uL (4.3-11.0)
[2017-06-25] MEDS: inSUlin ASPART (NovoLOG) 1 UNIT/0.01 ML (CHARGE PER UNIT) SC SCH ×4 (05:52→21:19)
[2017-06-25 06:08] LABS: ALBUMIN 3.1 GM/DL (3.2-4.5); BILIRUBIN,TOTAL 0.3 MG/DL (0.1-1.0); CALCIUM 8.1 MG/DL (8.5-10.1); CREATININE SERUM 1.53 MG/DL (0.60-1.30); POTASSIUM 4.3 MMOL/L (3.6-5.0); TOTAL PROTEIN 5.3 GM/DL (6.4-8.2)
[2017-06-25] MEDS: FUROSEMIDE 40 MG/4 ML INJ (LASIX) IVP SCH ×2 (06:09→16:42)
[2017-06-25] MEDS: CATHETER FLUSH 10 ML SYR IV SCH ×3 (06:10→21:19)
[2017-06-25] MEDS: GABAPENTIN 300 MG (NEURONTIN) CAP PO SCH ×3 (06:10→21:34)
[2017-06-25 08:00] VITALS: BP 134/70
[2017-06-25] MEDS: lisINopril 20 MG (ZESTRIL) TAB PO SCH (08:21)
[2017-06-25] MEDS: HYDROCHLOROTHIAZIDE 25 MG (HCTZ) TAB PO SCH (08:21)
[2017-06-25] MEDS: CLOPIDOGREL 75 MG (PLAVIX) TABLET PO SCH (08:21)
[2017-06-25] MEDS: ENOXAPARIN 40 MG/0.4 ML (LOVENOX) SYR SC SCH (08:21)
[2017-06-25] MEDS: meTOprolol TARTRATE 50 MG (LOPRESSOR) TAB PO SCH ×2 (08:21→21:34)
[2017-06-25] MEDS: BETAMETHASONE/CLOTRIM CREAM (LOTRISONE) 45 GM TP SCH ×3 (08:22→21:19)
[2017-06-25] MEDS: OSELTAMIVIR 75 MG (TAMIFLU) BOX OF 10 PO SCH (08:22)
[2017-06-25] MEDS: ASPIRIN E.C. 81 MG (ECOTRIN) TAB PO SCH (08:22)
[2017-06-25 12:00] VITALS: BP 155/77
--- NOTE | 2017-06-25 13:19 | Progress Note-Hospitalist ---
Standard Progress Note Progress Notes/Assess & Plan Date Seen 06/25/17 Time Seen by Provider: 11:50 Assess & Plan/Chief Complaint The patient is a 52-year-old white male who was admitted in congestive heart failure. He reports that he had gained some 50-60 pounds over the past 2 months. It was first apparent in the feet and legs and then climbed to the thighs. He later began to note his belly to become tight and hard. He found it difficult to lie down and breathe. 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 He intended to put off any medical attention until he was eligible for job-related insurance. He denied chest pain or palpitations. He reports that he has noted considerable improvement with diuresis. He states that his feet are not nearly so tight as before. 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 He reports that it become increasingly more difficult to walk from the parking lot to the desk. He is anticipating improvement following diuresis. Physical exam: We have a pleasant obese white male who appears his stated age. Lungs are clear to auscultation breath sounds are somewhat distant as the AP diameter is increased. CV is regular. Abdomen is obese and firm. Extremities still show a woody edema in the pretibial area bilaterally. He reports that the swelling about the knees is less and is better able to flex his knees. Impression: Pulmonary edema/congestive heart failure. Plan: Continue diuresis. Consider discharge over the next few days. [facility] Labs Laboratory Tests 06/24/17 04:45 06/25/17 05:31 ABIGAIL HANCOCK MD Jun 25, 2017 13:19
[2017-06-25 16:55] VITALS: BP 158/88
[2017-06-25 20:00] VITALS: BP 157/81
--- NOTE | 2017-06-25 20:52 | Cardiology Progress Note ---
Cardiology SOAP Progress Note Subjective: No cardiac complaints. Objective: I&O/Vital Signs Vital Sign - Last 12Hours 06/25/17 06/25/17 06/25/17 06/25/17 12:00 13:00 16:55 19:00 Temp 98.3 97.2 Pulse 77 76 75 90 Resp 20 20 B/P (MAP) 155/77 (103) 158/88 (111) Pulse Ox 94 93 O2 Delivery Room Air Room Air Intake and Output 06/25/17 00:00 Intake Total 640 ml Balance 640 ml Weight (Pounds): 294 Weight (Ounces): 7.0 Weight (Calculated Kilograms): 133.284386 Constitutional: No appears stated age, No AAO x 3, No apparent distress, No PERRL, No well-developed, No well-nourished, No other Respiratory: No accessory muscle use, No respiratory distress, No chest tender , No chest expansion is symmetric, No chest is bilaterally symmetric, No lungs clear to percussion, No lungs clear to auscultation, No crackles, No rhonchi, No rales, No stridor, No wheezing, No pleural rub, No other Cardiovascular: regular rate-rhythm, No irregularly irregular, No extra beats, No parasternal heave is noted, No JVD, No edema, No bradycardia, No tachycardia , No point of maximal impulse, No cardiac thrills are palpable, No S1 and S2, No gallop/S3, No gallop/S4, No diastolic murmur, No systolic murmur, No friction rub, No click, No other Gastrointestional: No tender, No soft, No round, No distended, No pulsatile mass, No organomegaly, No guarding, No rebound, No tenderness, No hernia, No mass, No audible bowel sounds, No abnormal bowel sounds, No abdominal bruits, No spleenomegaly, No other Extremities: No normal range of motion, No non-tender, No normal inspection, No pedal edema, No calf tenderness, No normal capillary refill, No pelvis stable , No calf tenderness, No inflammation, No pedal edema, No slow capillary refill , No swelling, No other, No abrasion, No clubbing, No cyanosis, No ecchymosis, No laceration, No no lower extremity edema bilateral, No significant edema, No tenderness, No wound Neurologic/Psychiatric: No project management analyst II-XII nml as tested, No no motor/sensory deficits, No alert, No normal mood/affect, No oriented x 3, No abnormal cerebellar tests, No abnormal project management analyst II-XII, No abnormal gait, No aphasia, No EOM palsy, No facial droop, No motor weakness, No sensory deficit, No depressed affect, No disoriented x 3, No other, No grossly intact, No power is 5/5 both on sides Skin: No normal color, No warm/dry, No cyanosis, No cool, No diaphoresis, No damp, No ecchymosis, No jaundice, No mottled, No pallor, No rash, No tattoos/ piercings, No ulcerations, No rash on exposed areas, No ulcerations on exposed areas, No other Results/Procedures: Labs Laboratory Tests 06/25/17 05:31: White Blood Count 7.7, Red Blood Count 3.41L, Hemoglobin 9.1L, Hematocrit 29L, Mean Corpuscular Volume 86, Mean Corpuscular Hemoglobin 27, Mean Corpuscular Hemoglobin Concent 31L, Red Cell Distribution Width 12.8, Platelet Count 229, Mean Platelet Volume 10.5H, Sodium Level 140, Potassium Level 4.3, Chloride Level 104, Carbon Dioxide Level 26, Anion Gap 10, Blood Urea Nitrogen 37H, Creatinine 1.53H, Estimat Glomerular Filtration Rate 48, BUN/Creatinine Ratio 24 , Glucose Level 158H, Calcium Level 8.1L, Total Bilirubin 0.3, Aspartate Amino Transf (AST/SGOT) 33, Alanine Aminotransferase (ALT/SGPT) 24, Alkaline Phosphatase 98, Total Protein 5.3L, Albumin 3.1L 06/25/17 05:37: Glucometer 174H 06/25/17 10:47: Glucometer 183H 06/25/17 16:34: Glucometer 217H 06/25/17 20:58: Glucometer 189H Microbiology 06/22/17 MRSA Screen - Final, Complete MRSA not isolated A/P: Assessment/Dx: Congestive heart failure acute left ventricular systolic and diastolic dysfunction Shortness of breath Hypertension Hyperlipidemia CAD status post PCI by Dr. Perez. Plan: Peripheral edema, congestive heart failure acute left ventricular diastolic and systolic dysfunction, ejection fraction 45-50 percent, continue on Lasix, lisinopril and Metoprolol Chest pain nonspecific etiology, better post stent to LAD Coronary artery disease, cardiac cath done on 06/23/17 1. Severe stenosis in the mid LAD, successful angioplasty and deployment of drug-eluting stent X[place] 3.018 mm expanded to 3.25 mm, proximal to the stent there is dnea-ih-ikkynbob disease nonobstructive disease 2. Moderate disease at the distal circumflex artery otherwise nonobstructive disease 3. Severe hypertension with elevated left ventricular end-diastolic pressure. Influenza A- continue supportive care Acute renal insufficiency, better, continue to monitor Mild to moderate peripheral arterial disease per angiogram done in 2016. Continue to monitor Hypertension, poorly controlled, on metoprolol and lisinopril. History of Frequent PVCs, ventricular bigeminy, continue to monitor. Has been asymptomatic. Mild bilateral carotid stenosis nonobstructive disease. Dizziness/lightheadedness- continue to monitor. carotid duplex and CTA neck revealed nonobstructive PAMELA. Diabetes mellitus, followed and managed by primary care physician Diabetic neuropathy and nephropathy Hyperlipidemia, good control, continue to monitor Erectile dysfunction- likely related to uncontrolled DM and neuropathy in addition to peripheral arterial disease Obesity, BMI 44, discussed weight loss and exercise Thank you for your consultation. Please call me if you have any questions. Byron Matamoros MD, FACP, FACC, FSCAI, FHRS, CCDS Interventional Cardiology Cardiac Electrophysiology Vascular Medicine and Endovascular Interventions Alma MATAMOROS MD Jun 25, 2017 8:52 pm
[2017-06-26] VITALS: BP 152/81
[2017-06-26 04:00] VITALS: BP 154/78
[2017-06-26] MEDS: inSUlin ASPART (NovoLOG) 1 UNIT/0.01 ML (CHARGE PER UNIT) SC SCH ×4 (06:23→21:40)
[2017-06-26] MEDS: FUROSEMIDE 40 MG/4 ML INJ (LASIX) IVP SCH ×2 (06:28→17:02)
[2017-06-26] MEDS: GABAPENTIN 300 MG (NEURONTIN) CAP PO SCH ×3 (06:28→20:54)
[2017-06-26] MEDS: CATHETER FLUSH 10 ML SYR IV SCH ×3 (06:28→22:00)
[2017-06-26 08:00] VITALS: BP 158/80
[2017-06-26] MEDS: lisINopril 20 MG (ZESTRIL) TAB PO SCH (08:19)
[2017-06-26] MEDS: ASPIRIN E.C. 81 MG (ECOTRIN) TAB PO SCH (08:19)
[2017-06-26] MEDS: ENOXAPARIN 40 MG/0.4 ML (LOVENOX) SYR SC SCH (08:19)
[2017-06-26] MEDS: CLOPIDOGREL 75 MG (PLAVIX) TABLET PO SCH (08:19)
[2017-06-26] MEDS: HYDROCHLOROTHIAZIDE 25 MG (HCTZ) TAB PO SCH (08:19)
[2017-06-26] MEDS: meTOprolol TARTRATE 50 MG (LOPRESSOR) TAB PO SCH ×2 (08:19→20:54)
[2017-06-26] MEDS: BETAMETHASONE/CLOTRIM CREAM (LOTRISONE) 45 GM TP SCH ×3 (08:20→21:49)
[2017-06-26 12:00] VITALS: BP 171/91
--- NOTE | 2017-06-26 12:25 | Progress Note-Hospitalist ---
Standard Progress Note Progress Notes/Assess & Plan Date Seen 06/26/17 Time Seen by Provider: 12:20 Assess & Plan/Chief Complaint The patient reports that he continues to feel better and stronger today. In exploring his intake and output he is only had a negative on day 1. He has been receiving Lasix 40 mg IV twice a day. He also reports that he is eager to be discharged. He has a new job in [employer] and fears he may lose this if he is not ready to return to work on Tuesday. Discussion ensued about diabetic management. He reports that he had been taking nothing at home. He had previously been taking INVOKANA which had been supplied as samples from Dr. Younger's office. This was discontinued because of side effects. He basically allowed that he was unwilling to take insulin. He has peripheral neuropathy and impotence noted at as a function of poor control plus advanced coronary disease for age. Physical exam: He is up in chair at bedside an alert and oriented. Lungs are clear to auscultation. CV is regular without murmur. Calves are still [place] and [place]. Impression: Congestive heart failure. 2.coronary artery disease with intervention on this admission. 3.anasarca with marginal response to diuretics at this point. 4.diabetes with poor control and endorgan damage as evidenced by peripheral neuropathy and coronary artery disease. Plan: Adjustment of diabetic therapy. Labs Laboratory Tests 06/25/17 05:31 ABIGAIL HANCOCK MD Jun 26, 2017 12:25
--- NOTE | 2017-06-26 13:10 | Cardiology Progress Note ---
Cardiology SOAP Progress Note Subjective: Feels much better. Objective: I&O/Vital Signs Vital Sign - Last 12Hours 06/26/17 06/26/17 06/26/17 06/26/17 04:00 07:00 08:00 08:00 Temp 98.9 98.1 Pulse 77 76 77 Resp 18 20 B/P (MAP) 154/78 (103) 158/80 (106) Pulse Ox 94 94 O2 Delivery NIV CPAP Room Air Room Air 06/26/17 12:00 Temp 98.4 Pulse 74 Resp 20 B/P (MAP) 171/91 (117) Pulse Ox 98 O2 Delivery Room Air Intake and Output 06/26/17 00:00 Intake Total 1760 ml Balance 1760 ml Weight (Pounds): 294 Weight (Ounces): 1.0 Weight (Calculated Kilograms): 133.895389 Constitutional: No appears stated age, No AAO x 3, No apparent distress, No PERRL, No well-developed, No well-nourished, No other Respiratory: No accessory muscle use, No respiratory distress, No chest tender , No chest expansion is symmetric, No chest is bilaterally symmetric, No lungs clear to percussion, No lungs clear to auscultation, No crackles, No rhonchi, No rales, No stridor, No wheezing, No pleural rub, No other Cardiovascular: regular rate-rhythm Gastrointestional: No tender, No soft, No round, No distended, No pulsatile mass, No organomegaly, No guarding, No rebound, No tenderness, No hernia, No mass, No audible bowel sounds, No abnormal bowel sounds, No abdominal bruits, No spleenomegaly, No other Extremities: No normal range of motion, No non-tender, No normal inspection, No pedal edema, No calf tenderness, No normal capillary refill, No pelvis stable , No calf tenderness, No inflammation, No pedal edema, No slow capillary refill , No swelling, No other, No abrasion, No clubbing, No cyanosis, No ecchymosis, No laceration, No no lower extremity edema bilateral, No significant edema, No tenderness, No wound Neurologic/Psychiatric: No negotiations director II-XII nml as tested, No no motor/sensory deficits, No alert, No normal mood/affect, No oriented x 3, No abnormal cerebellar tests, No abnormal negotiations director II-XII, No abnormal gait, No aphasia, No EOM palsy, No facial droop, No motor weakness, No sensory deficit, No depressed affect, No disoriented x 3, No other, No grossly intact, No power is 5/5 both on sides Skin: No normal color, No warm/dry, No cyanosis, No cool, No diaphoresis, No damp, No ecchymosis, No jaundice, No mottled, No pallor, No rash, No tattoos/ piercings, No ulcerations, No rash on exposed areas, No ulcerations on exposed areas, No other Results/Procedures: Labs Laboratory Tests 06/25/17 16:34: Glucometer 217H 06/25/17 20:58: Glucometer 189H 06/26/17 06:20: Glucometer 171H 06/26/17 10:42: Glucometer 304H Microbiology 06/22/17 MRSA Screen - Final, Complete MRSA not isolated A/P: Assessment/Dx: Congestive heart failure acute left ventricular systolic and diastolic dysfunction Shortness of breath Hypertension Hyperlipidemia CAD status post PCI by Dr. Perez. Plan: Significantly improved symptomatically. Peripheral edema, congestive heart failure acute left ventricular diastolic and systolic dysfunction, ejection fraction 45-50 percent, continue on Lasix, lisinopril and Metoprolol Chest pain nonspecific etiology, better post stent to LAD Coronary artery disease, cardiac cath done on 06/23/17 1. Severe stenosis in the mid LAD, successful angioplasty and deployment of drug-eluting stent [place] 3.018 mm expanded to 3.25 mm, proximal to the stent there is [id number] disease nonobstructive disease 2. Moderate disease at the distal circumflex artery otherwise nonobstructive disease 3. Severe hypertension with elevated left ventricular end-diastolic pressure. Influenza A- continue supportive care Acute renal insufficiency, better, continue to monitor Mild to moderate peripheral arterial disease per angiogram done in 2016. Continue to monitor Hypertension, poorly controlled, on metoprolol and lisinopril. History of Frequent PVCs, ventricular bigeminy, continue to monitor. Has been asymptomatic. Mild bilateral carotid stenosis nonobstructive disease. Dizziness/lightheadedness- continue to monitor. carotid duplex and CTA neck revealed nonobstructive PAMELA. Diabetes mellitus, followed and managed by primary care physician Diabetic neuropathy and nephropathy Hyperlipidemia, good control, continue to monitor Erectile dysfunction- likely related to uncontrolled DM and neuropathy in addition to peripheral arterial disease Obesity, BMI 44, discussed weight loss and exercise Thank you for your consultation. Please call me if you have any questions. Byron Matamoros MD, FACP, FACC, FSCAI, FHRS, CCDS Interventional Cardiology Cardiac Electrophysiology Vascular Medicine and Endovascular Interventions Alma MATAMOROS MD Jun 26, 2017 1:10 pm
[2017-06-26 13:59] LABS: CALCIUM 8.8 MG/DL (8.5-10.1); CREATININE SERUM 1.81 MG/DL (0.60-1.30); POTASSIUM 4.2 MMOL/L (3.6-5.0)
[2017-06-26] MEDS: METOLAZONE 2.5 MG (ZAROXOLYN) TAB PO SCH (15:56)
[2017-06-26 16:35] VITALS: BP 177/98
[2017-06-26 20:29] VITALS: BP 162/94
[2017-06-27 00:10] VITALS: BP 154/73
[2017-06-27 04:15] VITALS: BP 134/65
[2017-06-27] MEDS: METOLAZONE 2.5 MG (ZAROXOLYN) TAB PO SCH (05:01)
[2017-06-27] MEDS: CATHETER FLUSH 10 ML SYR IV SCH (05:02)
[2017-06-27] MEDS: inSUlin ASPART (NovoLOG) 1 UNIT/0.01 ML (CHARGE PER UNIT) SC SCH (06:04)
[2017-06-27] MEDS: FUROSEMIDE 40 MG/4 ML INJ (LASIX) IVP SCH (06:30)
[2017-06-27] MEDS: GABAPENTIN 300 MG (NEURONTIN) CAP PO SCH (06:30)
[2017-06-27 06:56] LABS: CALCIUM 8.5 MG/DL (8.5-10.1); CREATININE SERUM 1.73 MG/DL (0.60-1.30); POTASSIUM 3.9 MMOL/L (3.6-5.0)
--- NOTE | 2017-06-27 07:49 | Progress Note (SOAP) ---
Subjective Time Seen by Provider: 07:45 Subjective/Events-last exam patient states he's feeling better. Patient states he wants to go home. Patient had a cough a few weeks before being admitted to the hospital. Patient on CAMILLA inhibitor lisinopril area Patient has lost over 15 pounds since admission. CHF. Short of breath. Hypertension. Hyperlipidemia. Coronary artery disease. Influenza A better. Acute renal insufficiency. History of PVC. Diabetes. Diabetic neuropathy. Erectile dysfunction m Objective Exam Vital Signs Date Time Temp Pulse Resp B/P (MAP) Pulse Ox O2 Delivery O2 Flow Rate FiO2 06/27/17 04:15 97.8 74 17 134/65 (88) 97 Room Air 06/27/17 01:00 78 06/27/17 00:10 98.6 75 17 154/73 (100) 96 Room Air 06/26/17 20:55 Room Air 06/26/17 20:29 99.4 79 20 162/94 (116) 95 Room Air 06/26/17 19:00 82 06/26/17 16:35 98.1 78 20 177/98 (124) 97 Room Air 06/26/17 13:00 80 06/26/17 12:00 98.4 74 20 171/91 (117) 98 Room Air 06/26/17 08:00 98.1 77 20 158/80 (106) 94 Room Air 06/26/17 08:00 Room Air I & O 06/27/17 07:00 Intake Total 2560 ml Balance 2560 ml Capillary Refill : Less Than 3 Seconds General Appearance: No Apparent Distress, WD/WN HEENT: Normal ENT Inspection Neck: Full Range of Motion Respiratory: Chest Non Tender, Lungs Clear, Normal Breath Sounds, No Accessory Muscle Use, No Respiratory Distress Cardiovascular: Regular Rate, Rhythm, No Murmur Gastrointestinal: non tender, soft Results Lab Laboratory Tests 06/26/17 13:38 06/27/17 05:52 Laboratory Tests 06/26/17 10:42: Glucometer 304H 06/26/17 13:38: Sodium Level 140, Potassium Level 4.2, Chloride Level 101, Carbon Dioxide Level 28, Anion Gap 11, Blood Urea Nitrogen 39H, Creatinine 1.81H, Estimat Glomerular Filtration Rate 40, BUN/Creatinine Ratio 22, Glucose Level 215H, Calcium Level 8.8 06/26/17 15:57: Glucometer 207H 06/26/17 21:27: Glucometer 178H 06/27/17 05:52: Sodium Level 139, Potassium Level 3.9, Chloride Level 100, Carbon Dioxide Level 28, Anion Gap 11, Blood Urea Nitrogen 42H, Creatinine 1.73H, Estimat Glomerular Filtration Rate 42, BUN/Creatinine Ratio 24, Glucose Level 153H, Calcium Level 8.5 06/27/17 06:00: Glucometer 171H Microbiology 06/22/17 MRSA Screen - Final, Complete MRSA not isolated Assessment/Plan Assessment/Plan Assess & Plan/Chief Complaint CHF. Pretibial edema. Diabetes. Diabetic neuropathy. Influenza A. Yeast in inguinal region. Patient have stress test today. . 06/23/17. Patient lost 21 pounds since admission there CHF. Pretibial edema. Diabetes. Diabetic neuropathy. Influenza A feeling better with this. Patient to have heart catheter today. . 06/24/17. Pretibial edema. Diabetes. Diabetic neuropathy. Influenza A. Coronary artery disease. Stent put in LAD drug-eluting stent. Patient feeling better. . 06/27/17. Pretibial edema. Congestive heart failure. Diabetes. Diabetic neuropathy. Influenza headache. Patient refuses any type shots for his diabetes. Coronary artery disease. Erectile dysfunction. Patient feeling better and wants to go home. Okay with me if okay with cardiology for discharge today. 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
[2017-06-27 08:00] VITALS: BP 164/84
--- NOTE | 2017-06-27 08:39 | Cardiology Progress Note ---
Subjective Date Seen by Provider: Jun 27, 2017 Time Seen by Provider: 08:37 Subjective/Events-last exam Patient is sitting up in bed, no new complaints. Reports non productive cough. Denies any CP or dyspnea. Review of Systems General: No Night Sweats, No Fatigue, No Malaise HEENT: No Visual Changes, No Dysphasia Pulmonary: No Dyspnea, Cough Cardiovascular: No: Chest Pain, Palpitations Gastrointestinal: No: Nausea, Vomiting, Abdominal Pain Genitourinary: No Dysuria, No Frequency Musculoskeletal: No: neck pain, back pain Neurological: No: Weakness, Numbness, Change in speech, Confusion Objective-Cardiology Exam Last Set of Vital Signs Vital Signs 06/24/17 06/27/17 09:23 04:15 Temp 97.8 Pulse 74 Resp 17 B/P (MAP) 134/65 (88) Pulse Ox 97 O2 Delivery Room Air O2 Flow Rate 2.00 Capillary Refill : Less Than 3 Seconds I&O Intake and Output 06/27/17 00:00 Intake Total 2910 ml Balance 2910 ml Intake Oral 2910 ml # Voids 9 # Bowel Movements 1 General: Alert, Oriented X3, Cooperative HEENT: Atraumatic, PERRLA Neck: Supple, No JVD, No Thyromegaly Lungs: Clear to Auscultation, Normal Air Movement, Other Heart: Regular Rate, Normal S1, Normal S2, No Murmurs Abdomen: Normal Bowel Sounds, Soft, No Tenderness, No Hepatosplenomegaly, No Masses Extremities: No Clubbing, No Cyanosis, Normal Pulses, No Tenderness/Swelling, Other (+1-2 edema) Skin: No Rashes, No Breakdown, No Significant Lesion Neuro: Normal Gait, Normal Speech, Strength at 5/5 X4 Ext, Normal Tone, Sensation Intact Psych/Mental Status: Mental Status NL, Mood NL Results Lab Laboratory Tests 06/26/17 13:38 06/27/17 05:52 A/P-Cardiology Admission Diagnosis Congestive heart failure acute left ventricular systolic and diastolic dysfunction Shortness of breath Hypertension Hyperlipidemia Assessment/Plan Peripheral edema, congestive heart failure acute left ventricular diastolic and systolic dysfunction, ejection fraction 45-50 percent, continue on Lasix, lisinopril and Metoprolol Chest pain nonspecific etiology, better post stent to LAD Coronary artery disease, cardiac cath done on 06/23/17 1. Severe stenosis in the mid LAD, successful angioplasty and deployment of drug-eluting stent L [place] 3.018 mm expanded to 3.25 mm, proximal to the stent there is [id number] disease nonobstructive disease 2. Moderate disease at the distal circumflex artery otherwise nonobstructive disease 3. Severe hypertension with elevated left ventricular end-diastolic pressure. Influenza A- continue supportive care Acute renal insufficiency, better, continue to monitor Mild to moderate peripheral arterial disease per angiogram done in 2016. Continue to monitor Hypertension,controlled, continue to monitor. History of Frequent PVCs, ventricular bigeminy, continue to monitor. Has been asymptomatic. Mild bilateral carotid stenosis nonobstructive disease. Dizziness/lightheadedness- continue to monitor. carotid duplex and CTA neck revealed nonobstructive PAMELA. Diabetes mellitus, followed and managed by primary care physician Diabetic neuropathy and nephropathy Hyperlipidemia, good control, continue to monitor Erectile dysfunction- likely related to uncontrolled DM and neuropathy in addition to peripheral arterial disease Obesity, BMI 44, discussed weight loss and exercise History of noncompliance with medications, educated in length regarding compliance Clinical Quality Measures DVT/VTE Risk/Contraindication: Risk Factor Score Per Nursin RFS Level Per Nursing on Admit: 4+=Very High CLAY SOMERS Jun 27, 2017 08:39
[2017-06-27] MEDS: meTOprolol TARTRATE 50 MG (LOPRESSOR) TAB PO SCH (08:58)
[2017-06-27] MEDS: lisINopril 20 MG (ZESTRIL) TAB PO SCH (08:58)
[2017-06-27] MEDS: ASPIRIN E.C. 81 MG (ECOTRIN) TAB PO SCH (08:58)
[2017-06-27] MEDS: ENOXAPARIN 40 MG/0.4 ML (LOVENOX) SYR SC SCH (08:58)
[2017-06-27] MEDS: BETAMETHASONE/CLOTRIM CREAM (LOTRISONE) 45 GM TP SCH (09:00)
[2017-06-27] MEDS: CLOPIDOGREL 75 MG (PLAVIX) TABLET PO SCH (09:00)
--- NOTE | 2017-06-27 09:25 | Cardiology Progress Note ---
Subjective Date Seen by Provider: Jun 27, 2017 Time Seen by Provider: 09:22 Subjective/Events-last exam Patient is feeling better, still having some swelling, complaining of cough Review of Systems General: No Chills, No Night Sweats, No Fatigue, No Malaise, No Appetite, No Other HEENT: No Head Aches, No Visual Changes, No Eye Pain, No Ear Pain, No Dysphasia , No Sinus Congestion, No Post Nasal Drip, No Sore Throat, No Other Pulmonary: No Dyspnea, Cough, No Pleuritic Chest Pain, No Other Cardiovascular: Edema, No: Chest Pain, Palpitations, Orthopnea, Paroxysmal Noc. Dyspnea, Lt Headedness, Other Objective-Cardiology Exam Last Set of Vital Signs Vital Signs 06/24/17 06/27/17 06/27/17 06/27/17 09:23 04:15 07:00 08:00 Temp 97.8 Pulse 72 Resp 17 B/P (MAP) 134/65 (88) Pulse Ox 97 O2 Delivery Room Air O2 Flow Rate 2.00 Capillary Refill : Less Than 3 Seconds I&O Intake and Output 06/26/17 23:59 Intake Total 2910 ml Balance 2910 ml Intake Oral 2910 ml # Voids 9 # Bowel Movements 1 General: Alert, Oriented X3, Cooperative HEENT: Atraumatic, PERRLA Neck: Supple, No JVD, No Thyromegaly Lungs: Clear to Auscultation, Normal Air Movement, Other Heart: Regular Rate, Normal S1, Normal S2, No Murmurs Abdomen: Normal Bowel Sounds, Soft, No Tenderness, No Hepatosplenomegaly, No Masses Extremities: No Clubbing, No Cyanosis, Normal Pulses, No Tenderness/Swelling, Other (+1 edema) Skin: No Rashes, No Breakdown, No Significant Lesion Neuro: Normal Gait, Normal Speech, Strength at 5/5 X4 Ext, Normal Tone, Sensation Intact Psych/Mental Status: Mental Status NL, Mood NL Results Lab Laboratory Tests 06/26/17 13:38 06/27/17 05:52 A/P-Cardiology Admission Diagnosis Congestive heart failure acute left ventricular systolic and diastolic dysfunction Shortness of breath Hypertension Hyperlipidemia Assessment/Plan Peripheral edema, congestive heart failure acute left ventricular diastolic and systolic dysfunction, ejection fraction 45-50 percent, continue on Lasix, lisinopril and Metoprolol, I will change lisinopril to losartan due to cough Chest pain nonspecific etiology, better post stent to LAD Coronary artery disease, cardiac cath done on 06/23/17 1. Severe stenosis in the mid LAD, successful angioplasty and deployment of drug-eluting stent L [place] 3.018 mm expanded to 3.25 mm, proximal to the stent there is [id number] disease nonobstructive disease 2. Moderate disease at the distal circumflex artery otherwise nonobstructive disease 3. Severe hypertension with elevated left ventricular end-diastolic pressure. Continue Aspirin and Plavix Influenza A- continue supportive care Acute renal insufficiency, continue to monitor as an outpatient Mild to moderate peripheral arterial disease per angiogram done in 2016. Continue to monitor Hypertension,controlled, continue to monitor. History of Frequent PVCs, ventricular bigeminy, continue to monitor. Has been asymptomatic. Mild bilateral carotid stenosis nonobstructive disease. Dizziness/lightheadedness- continue to monitor. carotid duplex and CTA neck revealed nonobstructive PAMELA. Diabetes mellitus, followed and managed by primary care physician Diabetic neuropathy and nephropathy Hyperlipidemia, good control, continue to monitor Erectile dysfunction- likely related to uncontrolled DM and neuropathy in addition to peripheral arterial disease Obesity, BMI 41, discussed weight loss and exercise History of noncompliance with medications, educated in length regarding compliance Clinical Quality Measures DVT/VTE Risk/Contraindication: Risk Factor Score Per Nursin RFS Level Per Nursing on Admit: 4+=Very High KAREN YANG MD Jun 27, 2017 09:25
[2017-06-27] MEDS ORDERED: LOSA100T28 PO (09:28)
[2017-06-27] MEDS ORDERED: METO50TA15 PO (09:28)
[2017-06-27] MEDS ORDERED: ASPI-983 PO (09:28)
[2017-06-27] MEDS ORDERED: CLOP75TA28 PO (09:28)
[2017-06-27] MEDS ORDERED: FURO10VI IVP (09:28)
--- NOTE | 2017-06-27 09:29 | Discharge Inst-Post CATH ---
Discharge Inst-CATH Post Cardiac Cath D/C Inst Follow Up/Plan Appointment with Dr Perez's office in 1-2 weeks CARDIAC CATH DISCHARGE INSTRUCTIONS *Hold Metformin for 48 hours post heart cath. ACTIVITY * Go Home directly and rest. * Limit activity of the leg (or wrist if it was used) for 7 days including aerobics, swimming, jogging, bicycling, etc. * Restrict stair-climbing for 7 days if possible, if not, climb up with your non -cath leg, then bring together on the same step. * Avoid lifting, pushing, pulling or excessive movement of the affected extremity for 7 days. * Customary sexual activity may be resumed after 2 days-use caution not to use a position that strains or causes pain to the affected extremity. * No driving for 24 hours. * NO SMOKING. * Avoid straining for bowel movements for 7 days. * Gentle walking on level ground is allowed. * Returning to work will depend on the type of procedure and the results. Your doctor will discuss this with you. CALL YOUR DOCTOR FOR ANY OF THE FOLLOWING: *If bleeding from the puncture site occurs- Apply gentle pressure to site with clean cloth and call your doctor or EMS. * If a knot or lump forms under the skin, increases in size, or causes pain. * If bruising appears to be worsening or moving further down your leg instead of disappearing. * Temperature above 101 F. CARE OF YOUR GROIN INCISION; * Bruising or purple discoloration of the skin near the puncture site is common. * You may shower only, no bathtub bathing for 5 days. Be careful to avoid slipping as your leg may feel stiff. * If a closure device was used on your femoral artery, please see the attached guide regarding care of the device and your leg. * REMOVE the dressing from your groin the next day after your procedure in the shower. CARE OF YOUR WRIST INCISION; * Bruising or purple discoloration of the skin near the puncture site is common. * You may shower. * DO NOT submerge wrist. * Remove dressing in 24 hours. KAREN PEREZ MD Jun 27, 2017 09:29
[2017-06-27] MEDS ORDERED: GLIM4TAB56 PO (12:00)
[2017-06-27 12:18] VITALS: BP 164/84
--- NOTE | 2017-06-30 07:29 | Discharge Summary ---
Diagnosis/Chief Complaint Date of Admission Jun 20, 2017 at 12:30 Date of Discharge Jun 27, 2017 at 12:21 Discharge Time: 07:25 Admission Diagnosis Admission Diagnosis peripheral edema. Diabetes. Hypertension. Congestive heart failure. Noncompliance. Shortness of breath. Discharge Diagnosis short of breath. Acute combined systolic and diastolic congestive heart failure. Anemia. Coronary artery disease. Obesity. Influenza A. Chest pain. Renal insufficiency. Hyperlipidemia. Leukopenia. Cardiomegaly. Central pulmonary venous congestion. Noncompliance. Peripheral artery disease. Diabetic neuropathy Reason Hospital Visit patient came to the office short of breath. Getting the whole bunch awake. Feet swelling up to [place] in the abdomen. Patient again much weight recently. Patient and known diabetic. Hypertension. Noncompliance. Peripheral edema. Short of breath. Patient has sleep apnea on a BiPAP or CPAP. Patient states he's very tired Patient short of breath with exertion Surgeries high injections Discharge Summary Procedures coronary angiography Consultations consult with cardiology Discharge Physical Examination Allergies: Coded Allergies: No Known Drug Allergies (Unverified , 06/20/17) Vitals & I&Os Vital Signs Date Time Temp Pulse Resp B/P (MAP) Pulse Ox O2 Delivery O2 Flow Rate FiO2 06/27/17 12:18 86 18 164/84 94 Room Air 06/27/17 08:00 98.3 06/24/17 09:23 2.00 Hospital Course Labs (last 24 hrs) Laboratory Tests 06/20/17 11:30: White Blood Count 3.8L, Red Blood Count 3.78L, Hemoglobin 10.2L, Hematocrit 35L , Mean Corpuscular Volume 92, Mean Corpuscular Hemoglobin 27, Mean Corpuscular Hemoglobin Concent 29L, Red Cell Distribution Width 13.1, Platelet Count 234, Mean Platelet Volume 10.7H, Neutrophils (%) (Auto) 67, Lymphocytes (%) (Auto) 12 , Monocytes (%) (Auto) 15H, Eosinophils (%) (Auto) 5, Basophils (%) (Auto) 1, Neutrophils # (Auto) 2.5, Lymphocytes # (Auto) 0.5L, Monocytes # (Auto) 0.6, Eosinophils # (Auto) 0.2, Basophils # (Auto) 0.0, Sodium Level 141, Potassium Level 4.7, Chloride Level 107, Carbon Dioxide Level 25, Anion Gap 9, Blood Urea Nitrogen 29H, Creatinine 1.29, Estimat Glomerular Filtration Rate 59, BUN/ Creatinine Ratio 22, Glucose Level 110H, Calcium Level 8.7, Magnesium Level 1.8 , Total Bilirubin 0.5, Aspartate Amino Transf (AST/SGOT) 29, Alanine Aminotransferase (ALT/SGPT) 33, Alkaline Phosphatase 125, Troponin I < 0.30, C- Reactive Protein High Sensitivity 3.57H, B-Type Natriuretic Peptide 655.9H, Total Protein 6.0L, Albumin 3.4 06/20/17 12:27: Urine Color YELLOW, Urine Clarity CLEAR, Urine pH 5, Urine Specific [place] 1.015L, Urine Protein 4+, Urine Glucose (UA) NEGATIVE, Urine Ketones NEGATIVE, Urine Nitrite NEGATIVE, Urine Bilirubin NEGATIVE, Urine Urobilinogen NORMAL, Urine Leukocyte Esterase NEGATIVE, Urine RBC (Auto) 4+H, Urine RBC 5-10H, Urine WBC 0-2, Urine Crystals NONE, Urine Bacteria NEGATIVE, Urine Casts NONE, Urine Mucus NEGATIVE, Urine Culture Indicated NO 06/20/17 15:25: Glucometer 107 06/20/17 21:04: Glucometer 168H 06/21/17 05:08: Glucometer 131H 06/21/17 05:23: White Blood Count 3.8L, Red Blood Count 3.28L, Hemoglobin 9.0L, Hematocrit 28L, Mean Corpuscular Volume 85, Mean Corpuscular Hemoglobin 27, Mean Corpuscular Hemoglobin Concent 32, Red Cell Distribution Width 12.7, Platelet Count 219, Mean Platelet Volume 11.1H, Neutrophils (%) (Auto) 58, Lymphocytes (%) (Auto) 19 , Monocytes (%) (Auto) 16H, Eosinophils (%) (Auto) 7, Basophils (%) (Auto) 1, Neutrophils # (Auto) 2.2, Lymphocytes # (Auto) 0.7L, Monocytes # (Auto) 0.6, Eosinophils # (Auto) 0.3, Basophils # (Auto) 0.0, Sodium Level 137, Potassium Level 4.4, Chloride Level 103, Carbon Dioxide Level 21, Anion Gap 13, Blood Urea Nitrogen 30H, Creatinine 1.35H, Estimat Glomerular Filtration Rate 56, BUN/ Creatinine Ratio 22, Glucose Level 125H, Hemoglobin A1c 7.4H, Calcium Level 8.4L , Magnesium Level 1.5L, Total Bilirubin 0.4, Aspartate Amino Transf (AST/SGOT) 26, Alanine Aminotransferase (ALT/SGPT) 26, Alkaline Phosphatase 99, B-Type Natriuretic Peptide 795.2H, Total Protein 5.3L, Albumin 3.2, Triglycerides Level 108, Cholesterol Level 129, LDL Cholesterol Direct 76, VLDL Cholesterol 22 , HDL Cholesterol 26L, Thyroid Stimulating Hormone (TSH) 1.10 06/21/17 10:50: Glucometer 186H 06/21/17 15:49: Glucometer 164H 06/21/17 20:52: Glucometer 187H 06/22/17 05:05: Glucometer 171H 06/22/17 05:30: White Blood Count 3.6L, Red Blood Count 3.37L, Hemoglobin 9.3L, Hematocrit 29L, Mean Corpuscular Volume 86, Mean Corpuscular Hemoglobin 28, Mean Corpuscular Hemoglobin Concent 32, Red Cell Distribution Width 12.8, Platelet Count 204, Mean Platelet Volume 10.7H, Sodium Level 141, Potassium Level 4.3, Chloride Level 106, Carbon Dioxide Level 24, Anion Gap 11, Blood Urea Nitrogen 34H, Creatinine 1.38H, Estimat Glomerular Filtration Rate 54, BUN/Creatinine Ratio 25 , Glucose Level 163H, Calcium Level 8.3L, Magnesium Level 2.0, Troponin I < 0.30 , B-Type Natriuretic Peptide 510.5H 06/22/17 10:45: Glucometer 134H 06/22/17 16:24: Glucometer 130H 06/22/17 20:03: Glucometer 166H 06/23/17 05:30: White Blood Count 4.4, Red Blood Count 3.66L, Hemoglobin 10.0L, Hematocrit 32L, Mean Corpuscular Volume 86, Mean Corpuscular Hemoglobin 27, Mean Corpuscular Hemoglobin Concent 32, Red Cell Distribution Width 12.7, Platelet Count 216, Mean Platelet Volume 11.2H, Neutrophils (%) (Auto) 59, Lymphocytes (%) (Auto) 23 , Monocytes (%) (Auto) 9, Eosinophils (%) (Auto) 8, Basophils (%) (Auto) 1, Neutrophils # (Auto) 2.6, Lymphocytes # (Auto) 1.0, Monocytes # (Auto) 0.4, Eosinophils # (Auto) 0.4H, Basophils # (Auto) 0.0, Prothrombin Time 13.3, INR Comment 1.0, Activated Partial Thromboplast Time 35, Sodium Level 141, Potassium Level 4.4, Chloride Level 105, Carbon Dioxide Level 26, Anion Gap 10, Blood Urea Nitrogen 33H, Creatinine 1.20, Estimat Glomerular Filtration Rate > 60, BUN/Creatinine Ratio 28, Glucose Level 177H, Hemoglobin A1c 7.5H, Calcium Level 8.6, Total Bilirubin 0.3, Aspartate Amino Transf (AST/SGOT) 20, Alanine Aminotransferase (ALT/SGPT) 22, Alkaline Phosphatase 101, Total Protein 5.6L, Albumin 3.2 06/23/17 05:45: Glucometer 172H 06/23/17 11:02: Glucometer 180H 06/23/17 17:04: Glucometer 155H 06/23/17 20:53: Glucometer 157H 06/24/17 04:45: White Blood Count 5.5, Red Blood Count 3.23L, Hemoglobin 8.8L, Hematocrit 28L, Mean Corpuscular Volume 85, Mean Corpuscular Hemoglobin 27, Mean Corpuscular Hemoglobin Concent 32, Red Cell Distribution Width 12.6, Platelet Count 208, Mean Platelet Volume 10.6H, Neutrophils (%) (Auto) 69, Lymphocytes (%) (Auto) 19 , Monocytes (%) (Auto) 9, Eosinophils (%) (Auto) 3, Basophils (%) (Auto) 0, Neutrophils # (Auto) 3.8, Lymphocytes # (Auto) 1.0, Monocytes # (Auto) 0.5, Eosinophils # (Auto) 0.2, Basophils # (Auto) 0.0, Sodium Level 142, Potassium Level 4.1, Chloride Level 105, Carbon Dioxide Level 27, Anion Gap 10, Blood Urea Nitrogen 31H, Creatinine 1.24, Estimat Glomerular Filtration Rate > 60, BUN /Creatinine Ratio 25, Glucose Level 214H, Calcium Level 8.0L, Phosphorus Level 4.3, Magnesium Level 1.7L 06/24/17 11:19: Glucometer 181H 06/24/17 16:22: Glucometer 244H 06/24/17 20:51: Glucometer 162H 06/25/17 05:31: White Blood Count 7.7, Red Blood Count 3.41L, Hemoglobin 9.1L, Hematocrit 29L, Mean Corpuscular Volume 86, Mean Corpuscular Hemoglobin 27, Mean Corpuscular Hemoglobin Concent 31L, Red Cell Distribution Width 12.8, Platelet Count 229, Mean Platelet Volume 10.5H, Sodium Level 140, Potassium Level 4.3, Chloride Level 104, Carbon Dioxide Level 26, Anion Gap 10, Blood Urea Nitrogen 37H, Creatinine 1.53H, Estimat Glomerular Filtration Rate 48, BUN/Creatinine Ratio 24 , Glucose Level 158H, Calcium Level 8.1L, Total Bilirubin 0.3, Aspartate Amino Transf (AST/SGOT) 33, Alanine Aminotransferase (ALT/SGPT) 24, Alkaline Phosphatase 98, Total Protein 5.3L, Albumin 3.1L 06/25/17 05:37: Glucometer 174H 06/25/17 10:47: Glucometer 183H 06/25/17 16:34: Glucometer 217H 06/25/17 20:58: Glucometer 189H 06/26/17 06:20: Glucometer 171H 06/26/17 10:42: Glucometer 304H 06/26/17 13:38: Sodium Level 140, Potassium Level 4.2, Chloride Level 101, Carbon Dioxide Level 28, Anion Gap 11, Blood Urea Nitrogen 39H, Creatinine 1.81H, Estimat Glomerular Filtration Rate 40, BUN/Creatinine Ratio 22, Glucose Level 215H, Calcium Level 8.8 06/26/17 15:57: Glucometer 207H 06/26/17 21:27: Glucometer 178H 06/27/17 05:52: Sodium Level 139, Potassium Level 3.9, Chloride Level 100, Carbon Dioxide Level 28, Anion Gap 11, Blood Urea Nitrogen 42H, Creatinine 1.73H, Estimat Glomerular Filtration Rate 42, BUN/Creatinine Ratio 24, Glucose Level 153H, Calcium Level 8.5 06/27/17 06:00: Glucometer 171H 06/27/17 11:48: Glucometer 203H Microbiology 06/22/17 MRSA Screen - Final, Complete MRSA not isolated Laboratory Tests 06/20/17 11:30 06/21/17 05:23 06/22/17 05:30 06/23/17 05:30 06/24/17 04:45 06/25/17 05:31 06/26/17 13:38 06/27/17 05:52 Pending Labs Microbiology Date/Time Source Procedure Growth Status 06/22/17 22:56 Nasal MRSA Screen - Final MRSA not isolated Complete 06/20/17 12:27 Nasopharynx Influenza Types A,B Antigen ([facility]) - Final Complete Laboratory Tests 06/20/17 11:30: White Blood Count 3.8, Red Blood Count 3.78, Hemoglobin 10.2, Hematocrit 35, Mean Corpuscular Volume 92, Mean Corpuscular Hemoglobin 27, Mean Corpuscular Hemoglobin Concent 29, Red Cell Distribution Width 13.1, Platelet Count 234, Mean Platelet Volume 10.7, Neutrophils (%) (Auto) 67, Lymphocytes (%) (Auto) 12 , Monocytes (%) (Auto) 15, Eosinophils (%) (Auto) 5, Basophils (%) (Auto) 1, Neutrophils # (Auto) 2.5, Lymphocytes # (Auto) 0.5, Monocytes # (Auto) 0.6, Eosinophils # (Auto) 0.2, Basophils # (Auto) 0.0, Sodium Level 141, Potassium Level 4.7, Chloride Level 107, Carbon Dioxide Level 25, Anion Gap 9, Blood Urea Nitrogen 29, Creatinine 1.29, Estimat Glomerular Filtration Rate 59, BUN/ Creatinine Ratio 22, Glucose Level 110, Calcium Level 8.7, Magnesium Level 1.8, Total Bilirubin 0.5, Aspartate Amino Transf (AST/SGOT) 29, Alanine Aminotransferase (ALT/SGPT) 33, Alkaline Phosphatase 125, Troponin I < 0.30, C- Reactive Protein High Sensitivity 3.57, B-Type Natriuretic Peptide 655.9, Total Protein 6.0, Albumin 3.4 06/20/17 12:27: Urine Color YELLOW, Urine Clarity CLEAR, Urine pH 5, Urine Specific [place] 1.015, Urine Protein 4+, Urine Glucose (UA) NEGATIVE, Urine Ketones NEGATIVE, Urine Nitrite NEGATIVE, Urine Bilirubin NEGATIVE, Urine Urobilinogen NORMAL, Urine Leukocyte Esterase NEGATIVE, Urine RBC (Auto) 4+, Urine RBC 5-10, Urine WBC 0-2, Urine Crystals NONE, Urine Bacteria NEGATIVE, Urine Casts NONE, Urine Mucus NEGATIVE, Urine Culture Indicated NO 06/20/17 15:25: Glucometer 107 06/20/17 21:04: Glucometer 168 06/21/17 05:08: Glucometer 131 06/21/17 05:23: White Blood Count 3.8, Red Blood Count 3.28, Hemoglobin 9.0, Hematocrit 28, Mean Corpuscular Volume 85, Mean Corpuscular Hemoglobin 27, Mean Corpuscular Hemoglobin Concent 32, Red Cell Distribution Width 12.7, Platelet Count 219, Mean Platelet Volume 11.1, Neutrophils (%) (Auto) 58, Lymphocytes (%) (Auto) 19 , Monocytes (%) (Auto) 16, Eosinophils (%) (Auto) 7, Basophils (%) (Auto) 1, Neutrophils # (Auto) 2.2, Lymphocytes # (Auto) 0.7, Monocytes # (Auto) 0.6, Eosinophils # (Auto) 0.3, Basophils # (Auto) 0.0, Sodium Level 137, Potassium Level 4.4, Chloride Level 103, Carbon Dioxide Level 21, Anion Gap 13, Blood Urea Nitrogen 30, Creatinine 1.35, Estimat Glomerular Filtration Rate 56, BUN/ Creatinine Ratio 22, Glucose Level 125, Hemoglobin A1c 7.4, Calcium Level 8.4, Magnesium Level 1.5, Total Bilirubin 0.4, Aspartate Amino Transf (AST/SGOT) 26, Alanine Aminotransferase (ALT/SGPT) 26, Alkaline Phosphatase 99, B-Type Natriuretic Peptide 795.2, Total Protein 5.3, Albumin 3.2, Triglycerides Level 108, Cholesterol Level 129, LDL Cholesterol Direct 76, VLDL Cholesterol 22, HDL Cholesterol 26, Thyroid Stimulating Hormone (TSH) 1.10 06/21/17 10:50: Glucometer 186 06/21/17 15:49: Glucometer 164 06/21/17 20:52: Glucometer 187 06/22/17 05:05: Glucometer 171 06/22/17 05:30: White Blood Count 3.6, Red Blood Count 3.37, Hemoglobin 9.3, Hematocrit 29, Mean Corpuscular Volume 86, Mean Corpuscular Hemoglobin 28, Mean Corpuscular Hemoglobin Concent 32, Red Cell Distribution Width 12.8, Platelet Count 204, Mean Platelet Volume 10.7, Sodium Level 141, Potassium Level 4.3, Chloride Level 106, Carbon Dioxide Level 24, Anion Gap 11, Blood Urea Nitrogen 34, Creatinine 1.38, Estimat Glomerular Filtration Rate 54, BUN/Creatinine Ratio 25 , Glucose Level 163, Calcium Level 8.3, Magnesium Level 2.0, Troponin I < 0.30, B-Type Natriuretic Peptide 510.5 06/22/17 10:45: Glucometer 134 06/22/17 16:24: Glucometer 130 06/22/17 20:03: Glucometer 166 06/23/17 05:30: White Blood Count 4.4, Red Blood Count 3.66, Hemoglobin 10.0, Hematocrit 32, Mean Corpuscular Volume 86, Mean Corpuscular Hemoglobin 27, Mean Corpuscular Hemoglobin Concent 32, Red Cell Distribution Width 12.7, Platelet Count 216, Mean Platelet Volume 11.2, Neutrophils (%) (Auto) 59, Lymphocytes (%) (Auto) 23 , Monocytes (%) (Auto) 9, Eosinophils (%) (Auto) 8, Basophils (%) (Auto) 1, Neutrophils # (Auto) 2.6, Lymphocytes # (Auto) 1.0, Monocytes # (Auto) 0.4, Eosinophils # (Auto) 0.4, Basophils # (Auto) 0.0, Prothrombin Time 13.3, INR Comment 1.0, Activated Partial Thromboplast Time 35, Sodium Level 141, Potassium Level 4.4, Chloride Level 105, Carbon Dioxide Level 26, Anion Gap 10, Blood Urea Nitrogen 33, Creatinine 1.20, Estimat Glomerular Filtration Rate > 60 , BUN/Creatinine Ratio 28, Glucose Level 177, Hemoglobin A1c 7.5, Calcium Level 8.6, Total Bilirubin 0.3, Aspartate Amino Transf (AST/SGOT) 20, Alanine Aminotransferase (ALT/SGPT) 22, Alkaline Phosphatase 101, Total Protein 5.6, Albumin 3.2 06/23/17 05:45: Glucometer 172 06/23/17 11:02: Glucometer 180 06/23/17 17:04: Glucometer 155 06/23/17 20:53: Glucometer 157 06/24/17 04:45: White Blood Count 5.5, Red Blood Count 3.23, Hemoglobin 8.8, Hematocrit 28, Mean Corpuscular Volume 85, Mean Corpuscular Hemoglobin 27, Mean Corpuscular Hemoglobin Concent 32, Red Cell Distribution Width 12.6, Platelet Count 208, Mean Platelet Volume 10.6, Neutrophils (%) (Auto) 69, Lymphocytes (%) (Auto) 19 , Monocytes (%) (Auto) 9, Eosinophils (%) (Auto) 3, Basophils (%) (Auto) 0, Neutrophils # (Auto) 3.8, Lymphocytes # (Auto) 1.0, Monocytes # (Auto) 0.5, Eosinophils # (Auto) 0.2, Basophils # (Auto) 0.0, Sodium Level 142, Potassium Level 4.1, Chloride Level 105, Carbon Dioxide Level 27, Anion Gap 10, Blood Urea Nitrogen 31, Creatinine 1.24, Estimat Glomerular Filtration Rate > 60, BUN/ Creatinine Ratio 25, Glucose Level 214, Calcium Level 8.0, Phosphorus Level 4.3 , Magnesium Level 1.7 06/24/17 11:19: Glucometer 181 06/24/17 16:22: Glucometer 244 06/24/17 20:51: Glucometer 162 06/25/17 05:31: White Blood Count 7.7, Red Blood Count 3.41, Hemoglobin 9.1, Hematocrit 29, Mean Corpuscular Volume 86, Mean Corpuscular Hemoglobin 27, Mean Corpuscular Hemoglobin Concent 31, Red Cell Distribution Width 12.8, Platelet Count 229, Mean Platelet Volume 10.5, Sodium Level 140, Potassium Level 4.3, Chloride Level 104, Carbon Dioxide Level 26, Anion Gap 10, Blood Urea Nitrogen 37, Creatinine 1.53, Estimat Glomerular Filtration Rate 48, BUN/Creatinine Ratio 24 , Glucose Level 158, Calcium Level 8.1, Total Bilirubin 0.3, Aspartate Amino Transf (AST/SGOT) 33, Alanine Aminotransferase (ALT/SGPT) 24, Alkaline Phosphatase 98, Total Protein 5.3, Albumin 3.1 06/25/17 05:37: Glucometer 174 06/25/17 10:47: Glucometer 183 06/25/17 16:34: Glucometer 217 06/25/17 20:58: Glucometer 189 06/26/17 06:20: Glucometer 171 06/26/17 10:42: Glucometer 304 06/26/17 13:38: Sodium Level 140, Potassium Level 4.2, Chloride Level 101, Carbon Dioxide Level 28, Anion Gap 11, Blood Urea Nitrogen 39, Creatinine 1.81, Estimat Glomerular Filtration Rate 40, BUN/Creatinine Ratio 22, Glucose Level 215, Calcium Level 8.8 06/26/17 15:57: Glucometer 207 06/26/17 21:27: Glucometer 178 06/27/17 05:52: Sodium Level 139, Potassium Level 3.9, Chloride Level 100, Carbon Dioxide Level 28, Anion Gap 11, Blood Urea Nitrogen 42, Creatinine 1.73, Estimat Glomerular Filtration Rate 42, BUN/Creatinine Ratio 24, Glucose Level 153, Calcium Level 8.5 06/27/17 06:00: Glucometer 171 06/27/17 11:48: Glucometer 203 Radiology Reviewed chest x-ray central pulmonary venous congestion and cardiomegaly Discussion & Recommendations patient in hospital did improve. Patient did have a stent put in coronary Discharge Home Medications: Active Scripts Active Amaryl (Glimepiride) 4 Mg Tablet 4 Mg PO DAILY 30 Days Losartan Potassium 100 Mg Tablet 100 Mg PO DAILY Aspirin EC (Aspirin) 81 Mg Tablet.dr 81 Mg PO DAILY Furosemide 10 Mg/1 Ml Vial 40 Mg IVP DAILY@ Metoprolol Tartrate 50 Mg Tablet 50 Mg PO BID Clopidogrel (Clopidogrel Bisulfate) 75 Mg Tablet 75 Mg PO DAILY Reported Gabapentin 300 Mg Capsule 300 Mg PO 1200 Gabapentin 300 Mg Capsule 600 Mg PO 0900,2100 TAKES 2 (300MG) CAPSULES Instructions to patient/family Please see electronic discharge instructions given to patient. Clinical Quality Measures DVT/VTE Risk/Contraindication: Risk Factor Score Per Nursin RFS Level Per Nursing on Admit: 4+=Very High MARIIA SIM DO Jun 30, 2017 07:29
== END 2017-06-27 12:21 | disposition home or self-care (01) | DRG 247 ==
LOC: EDUNIT# 10:49 → ER 10:52 → 4TH 12:30 → ICU 06-23 17:30 → 4TH 06-24 13:45
PROVIDERS: ADMIT Family Medicine; ATTEND Family Medicine
PROC: 027034Z Dilation of Coronary Artery, One Artery with Drug-eluting Intraluminal Device, Percutaneous Approach (ICD-10-PCS; principal; 2017-06-23)
PROC: 4A023N7 Measurement of Cardiac Sampling and Pressure, Left Heart, Percutaneous Approach (ICD-10-PCS; 2017-06-23)
PROC: B2151ZZ Fluoroscopy of Left Heart using Low Osmolar Contrast (ICD-10-PCS; 2017-06-23)
DX: I11.0 Hypertensive heart disease with heart failure (principal); I50.41 Acute combined systolic (congestive) and diastolic (congestive) heart failure; E66.9 Obesity, unspecified; Z68.41 Body mass index [BMI] 40.0-44.9, adult; E11.319 Type 2 diabetes mellitus with unspecified diabetic retinopathy without macular edema; E11.43 Type 2 diabetes mellitus with diabetic autonomic (poly)neuropathy; I73.9 Peripheral vascular disease, unspecified; I25.10 Atherosclerotic heart disease of native coronary artery without angina pectoris; G47.30 Sleep apnea, unspecified; F41.9 Anxiety disorder, unspecified; I65.23 Occlusion and stenosis of bilateral carotid arteries; E78.5 Hyperlipidemia, unspecified; N52.1 Erectile dysfunction due to diseases classified elsewhere; N28.9 Disorder of kidney and ureter, unspecified; R42 Dizziness and giddiness; R07.9 Chest pain, unspecified; B37.2 Candidiasis of skin and nail; J11.1 Influenza due to unidentified influenza virus with other respiratory manifestations; D64.9 Anemia, unspecified; R60.0 Localized edema; Z91.14 Patient's other noncompliance with medication regimen; Z79.84 Long term (current) use of oral hypoglycemic drugs; Z23 Encounter for immunization
CPT/HCPCS: 36415; 71045; 71046; 78452; 80048; 80053; 80061; 81000; 82962; 83036; 83735; 83880; 84100; 84443; 84484; 85025; 85027; 85610; 85730; 86141; 87081; 87804; 93005; 93017; 93306; 93458; 96374; 96376

== ENCOUNTER 2017-07-01 20:35 | Inpatient (IN) | payer BC ==
[~2017-07-01] VITALS: Ht 177.8 cm; Wt 122.6 kg
[~2017-07-01 20:35] MED LIST changes: +CLOP75TA28 PO; +FURO10VI IVP; +GLIM4TAB56 PO; +IBUP-30 PO; +LISI10TA2 PO; +LOSA100T28 PO; +METF-478 PO; +METO50TA15 PO
--- OUTSIDE RECORDS SUMMARY | 2017-07-01 20:40 | XMS REPORT | Clinical Summary ---
Author Author [facility] Organization [facility] Address Unknown Phone Unavailable Care Team Providers Care Belt Builder Name Role Phone PCP Unavailable Source Comments Some departments are not documenting in the electronic medical record. If you do not see the information that you expected, contact Release of Information in the Health Information Management department at [phone] for further assistance in locating additional records.[facility] Allergies No Known Allergies Current Medications Prescription [...] Taken Blood Pressure 118/79 05/03/2016 1:44 PM [employer] Pulse 92 05/03/2016 1:44 PM [employer] Temperature - - Respiratory Rate - - Oxygen Saturation - - Inhaled Oxygen - - Concentration Weight 111.6 kg (246 lb) 05/03/2016 1:44 PM [employer] Height 180.3 cm (5' 11") 05/03/2016 1:44 PM [employer] Body Mass Index 34.31 05/03/2016 1:44 PM [employer] Plan of Treatment Health Maintenance Due Date Last Done Comments PHYSICAL (COMPREHENSIVE) 1973 EXAM PERTUSSIS VACCINE 1977 TETANUS VACCINE 1983 COLORECTAL CANCER 01/30/2016 SCREENING INFLUENZA VACCINE 01/11/2017 Results Not on filefrom Last 3 Months
--- OUTSIDE RECORDS SUMMARY | 2017-07-01 20:42 | XMS REPORT | Continuity of Care Document ---
Author Author [facility] Organization [facility] Address Unknown Phone Unavailable Allergies Active Description Code Type Severity Reaction Onset Reported/Identified Relationship to Patient Clinical Status Yes No Known Drug Allergies [id number] Drug Allergy Unknown N/A 06/20/2017 Medications There is no data. Problems Date Dx Coded Attending Type Code Diagnosis Diagnosed By 06/17/2015 MARIIA SIM DO Ot E11.40 TYPE 2 DIABETES MELLITUS WITH DIABETIC N 06/[facility] Ot E11.65 TYPE 2 DIABETES MELLITUS WITH HYPERGLYCE 06/17/[facility] SHANNON Ot E78.5 HYPERLIPIDEMIA, UNSPECIFIED 06/17/2015 MARIIA SIM DO Ot I10 ESSENTIAL (PRIMARY) HYPERTENSION 06/17/2015 MARIIA SIM DO Ot I25.10 ATHSCL HEART DISEASE OF [place] CORONARY 06/17/2015 [facility] MARIIA SHANNON Ot I49.3 VENTRICULAR PREMATURE DEPOLARIZATION [...] OTHER MICROSCOPIC HEMATURIA 10/09/2015 DENVER MAST, EUGENE Haridng Ot Z01.818 ENCOUNTER FOR OTHER PREPROCEDURAL EXAMIN [...] CELIA MAST, KAREN Perdomo Ot 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 02/09/2016 KAREN YANG MD, Ot Z79.899 OTHER [facility] (CURRENT) DRUG THERAPY 02/20/2016 KAREN YANG MD Ot E11.40 TYPE 2 DIABETES MELLITUS WITH DIABETIC N 02/20/2016 KAREN YANG MD, Ot E78.5 HYPERLIPIDEMIA, UNSPECIFIED 02/20/2016 KAREN YANG MD Ot I70.202 UNSP ATHSCL [place] ARTERIES OF [facility] 02/20/2016 KAREN YANG MD Ot M79.606 PAIN IN LEG, UNSPECIFIED 02/20/2016 KAREN YANG MD, Ot Z79.899 OTHER [facility]DC (CURRENT) DRUG THERAPY 07/19/2016 KAREN YANG MD, Ot E11.40 TYPE 2 DIABETES MELLITUS WITH DIABETIC N 07/19/2016 KAREN YANG MD, Ot E78.5 HYPERLIPIDEMIA, UNSPECIFIED 07/19/2016 KAREN YANG MD, Ot 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 07/19/2016 KAREN YANG MD, Ot Z79.899 OTHER SOFTWARE DEVELOPMENT INTERN (CURRENT) DRUG THERAPY 06/20/2017 DEFFENBAUGH DO, KAYLA Moses Ot R19.7 DIARRHEA, UNSPECIFIED 06/21/2017 MARIIA SIM DO Ot 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/ 06/21/2017 MARIIA SIM DO Ot E11.43 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 06/21/2017 MARIIA SIM DO Ot E66.9 OBESITY, UNSPECIFIED 06/21/2017 MARIIA SIM DO Ot E78.5 HYPERLIPIDEMIA, UNSPECIFIED 06/21/2017 MARIIA SIM DO Ot F41.9 ANXIETY DISORDER, UNSPECIFIED 06/21/2017 MARIIA SIM DO Ot G47.30 SLEEP APNEA, UNSPECIFIED 06/21/2017 MARIIA SIM DO Ot I11.0 HYPERTENSIVE HEART DISEASE WITH HEART FA 06/21/2017 MARIIA SIM DO Ot I25.10 ATHSCL HEART DISEASE OF [place] CORONARY 06/21/2017 MARIIA SIM DO Ot I50.41 ACUTE COMBINED SYSTOLIC AND DIASTOLIC (C 06/21/2017 MARIIA SIM DO Ot I65.23 OCCLUSION AND STENOSIS OF BILATERAL [place] 06/21/2017 GELCARLITODER DO, MARIIA Harding Ot I73.9 PERIPHERAL VASCULAR DISEASE, UNSPECIFIED 06/21/2017 SANDRALENDER DO, MARIIA Harding Ot N28.9 DISORDER OF KIDNEY AND URETER, UNSPECIFI 06/21/2017 SANDRALENDER DOMARIIA Ot N52.1 ERECTILE DYSFUNCTION DUE TO DISEASES CLA 06/21/2017 RONEY SHANNONMARIIA Ot R07.9 CHEST PAIN, UNSPECIFIED 06/21/2017 RONEY SHANNONMARIIA Ot R42 DIZZINESS AND GIDDINESS 06/21/2017 MACHODER DO, MARIIA Harding Ot Z68.41 BODY MASS INDEX (BMI) 40.0-44.9, ADULT 06/21/2017 RONEY SHANNONMARIIA Ot Z79.84 SOFTWARE DEVELOPMENT INTERN (CURRENT) USE OF ORAL HYPOGLYC 06/21/2017 RONEY SHANNON, MARIIA Harding Ot Z91.14 PATIENT'S OTHER NONCOMPLIANCE WITH MEDIC 06/22/2017 RONEY SHANNON, MARIIA Harding Ot 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/ 06/22/2017 RONEY SHANNONMARIIA Ot E11.43 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 06/22/2017 RONEY DO, MARIIA Harding Ot E66.9 OBESITY, UNSPECIFIED 06/22/2017 RONEY SHANNONMARIIA Ot E78.5 HYPERLIPIDEMIA, UNSPECIFIED 06/22/2017 RONEY SHANNONMARIIA Ot F41.9 ANXIETY DISORDER, UNSPECIFIED 06/22/2017 RONEY DOMARIIA Ot G47.30 SLEEP APNEA, UNSPECIFIED 06/22/2017 RONEY SHANNONMARIIA Ot I11.0 HYPERTENSIVE HEART DISEASE WITH HEART FA 06/22/2017 RONEY SHANNONMARIIA Ot I25.10 ATHSCL HEART DISEASE OF [place] CORONARY 06/22/2017 RONEY DO, MARIIA Harding Ot I50.41 ACUTE COMBINED SYSTOLIC AND DIASTOLIC (C 06/22/2017 RONEY SHANNONMARIIA Ot I65.23 OCCLUSION AND STENOSIS OF [place]ILATERAL [place] 06/22/2017 RONEY DO, MARIIA Harding Ot I73.9 PERIPHERAL VASCULAR DISEASE, UNSPECIFIED 06/22/2017 MACHODER DOMARIIA Ot N28.9 DISORDER OF KIDNEY AND URETER, UNSPECIFI 06/22/2017 SANDRALENDER DOMARIIA Ot N52.1 ERECTILE DYSFUNCTION DUE TO DISEASES CLA 06/22/2017 GELLENDER DO, MARIIA Harding Ot R07.9 CHEST PAIN, UNSPECIFIED 06/22/2017 GELLENDER DO, MARIIA Harding Ot R42 DIZZINESS AND GIDDINESS 06/22/2017 GELLENDER DO, MARIIA Harding Ot Z68.41 BODY MASS INDEX (BMI) 40.0-44.9, ADULT 06/22/2017 RONEY DO, MARIIA Harding Ot Z79.84 SOFTWARE DEVELOPMENT INTERN (CURRENT) USE OF ORAL HYPOGLYC 06/22/2017 GELLENDER DO, MARIIA Harding Ot Z91.14 PATIENT'S OTHER NONCOMPLIANCE WITH MEDIC 06/22/2017 SANDRALENDER DO, MARIIA Harding Ot 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/ 06/22/2017 GELLENDER DO, MARIIA Harding Ot E11.43 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 06/22/2017 GELLENDER DO, MARIIA Harding Ot E66.9 OBESITY, UNSPECIFIED 06/22/2017 MACHODER DOMARIIA Ot E78.5 HYPERLIPIDEMIA, UNSPECIFIED 06/22/2017 GELLENDER DOMARIIA Ot F41.9 ANXIETY DISORDER, UNSPECIFIED 06/22/2017 GELLENDER DOMARIIA Ot G47.30 SLEEP APNEA, UNSPECIFIED 06/22/2017 SANDRALENDER DOMARIIA Ot I11.0 HYPERTENSIVE HEART DISEASE WITH HEART FA 06/22/2017 SANDRALENDER DOMARIIA Ot I25.10 ATHSCL HEART DISEASE OF [place] CORONARY 06/22/2017 SANDRALENDER DO, MARIIA Harding Ot I50.41 ACUTE COMBINED SYSTOLIC AND DIASTOLIC (C 06/22/2017 GELLENDER DOMARIIA Ot I65.23 OCCLUSION AND STENOSIS OF [place] 06/22/2017 GELLENDER DO, MARIIA Harding Ot I73.9 PERIPHERAL VASCULAR DISEASE, UNSPECIFIED 06/22/2017 GELLENDER DOMARIIA Ot N28.9 DISORDER OF KIDNEY AND URETER, UNSPECIFI 06/22/2017 GELLENDER DOMARIIA Ot N52.1 ERECTILE DYSFUNCTION DUE TO DISEASES CLA 06/22/2017 GELLENDER DO, MARIIA Harding Ot R07.9 CHEST PAIN, UNSPECIFIED 06/22/2017 GELLENDER DOMARIIA Ot R42 DIZZINESS AND GIDDINESS 06/22/2017 GELLENDER DO, MARIIA Harding Ot Z68.41 BODY MASS INDEX (BMI) 40.0-44.9, ADULT 06/22/2017 MACHODER DO, MARIIA Harding Ot Z79.84 SOFTWARE DEVELOPMENT INTERN (CURRENT) USE OF ORAL HYPOGLYC 06/22/2017 SANDRALENDER DO, MARIIA Harding Ot Z91.14 PATIENT'S OTHER NONCOMPLIANCE WITH MEDIC 06/23/2017 SANDRALENDER DO, MARIIA Harding Ot 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/ 06/23/2017 GELLENDER DO, MARIIA Harding Ot E11.43 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 06/23/2017 GELLENDER DO, MARIIA Harding Ot E66.9 OBESITY, UNSPECIFIED 06/23/2017 GELLENDER DO, MARIIA Harding Ot E78.5 HYPERLIPIDEMIA, UNSPECIFIED 06/23/2017 SANDRALENDER DO, MARIIA Harding Ot F41.9 ANXIETY DISORDER, UNSPECIFIED 06/23/2017 GELLENDER DO, MARIIA Harding Ot G47.30 SLEEP APNEA, UNSPECIFIED 06/23/2017 MACHODER MARIIA Ot I11.0 HYPERTENSIVE HEART DISEASE WITH HEART FA 06/23/2017 MACHODER DOMARIIA Ot I25.10 ATHSCL HEART DISEASE OF [place] CORONARY 06/23/2017 GELLENDER DO, MARIIA Harding Ot I50.41 ACUTE COMBINED SYSTOLIC AND DIASTOLIC (C 06/23/2017 SANDRALENDER DO, MARIIA Harding Ot I65.23 OCCLUSION AND STENOSIS OF [place]ILATERAL [place] 06/23/2017 SANDRALENDER DO, MARIIA Harding Ot I73.9 PERIPHERAL VASCULAR DISEASE, UNSPECIFIED 06/23/2017 SANDRALENDER DOMARIIA Ot N28.9 DISORDER OF KIDNEY AND URETER, UNSPECIFI 06/23/2017 SANDRALENDER DOMARIIA Ot N52.1 ERECTILE DYSFUNCTION DUE TO DISEASES CLA 06/23/2017 GELLENDER DO, MARIIA Harding Ot R07.9 CHEST PAIN, UNSPECIFIED 06/23/2017 GELLENDER DOMARIIA Ot R42 DIZZINESS AND GIDDINESS 06/23/2017 GELLENDER DO, MARIIA Harding Ot Z68.41 BODY MASS INDEX (BMI) 40.0-44.9, ADULT 06/23/2017 MACHODER DO, MARIIA Harding Ot Z79.84 SOFTWARE DEVELOPMENT INTERN (CURRENT) USE OF ORAL HYPOGLYC 06/23/2017 GELLENDER DO, MARIIA Harding Ot Z91.14 PATIENT'S OTHER NONCOMPLIANCE WITH MEDIC 06/23/2017 RONEY SHANNON, MARIIA Harding Ot 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/ 06/23/2017 RONEY SHANNON, MARIIA Harding Ot E11.43 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 06/23/2017 RONEY DO, MARIIA Harding Ot E66.9 OBESITY, UNSPECIFIED 06/23/2017 MACHODER DO, MARIIA Harding Ot E78.5 HYPERLIPIDEMIA, UNSPECIFIED 06/23/2017 MACHODER DO, MARIIA Harding Ot F41.9 ANXIETY DISORDER, UNSPECIFIED 06/23/2017 SANDRALENDER DO, MARIIA Harding Ot G47.30 SLEEP APNEA, UNSPECIFIED 06/23/2017 SANDRALENDER DO, MARIIA Harding Ot I11.0 HYPERTENSIVE HEART DISEASE WITH HEART FA 06/23/2017 RONEY SHANNON, MARIIA Harding Ot I25.10 ATHSCL HEART DISEASE OF [place] CORONARY 06/23/2017 RONEY SHANNON, MARIIA Harding Ot I50.41 ACUTE COMBINED SYSTOLIC AND DIASTOLIC (C 06/23/2017 RONEY SHANNON, MARIIA Harding Ot I65.23 OCCLUSION AND STENOSIS OF [place]ILATERAL [place] 06/23/2017 RONEY DO, MARIIA Harding Ot I73.9 PERIPHERAL VASCULAR DISEASE, UNSPECIFIED 06/23/2017 SANDRALENDER DOMARIIA Ot N28.9 DISORDER OF KIDNEY AND URETER, UNSPECIFI 06/23/2017 RONEY SHANNONMARIIA Ot N52.1 ERECTILE DYSFUNCTION DUE TO DISEASES CLA 06/23/2017 RONEY SHANNONMARIIA Ot R07.9 CHEST PAIN, UNSPECIFIED 06/23/2017 RONEY SHANNONMARIIA Ot R42 DIZZINESS AND GIDDINESS 06/23/2017 RONEY SHANNONMARIIA Ot Z68.41 BODY MASS INDEX (BMI) 40.0-44.9, ADULT 06/23/2017 RONEY SHANNONMARIIA Ot Z79.84 FDC (CURRENT) USE OF ORAL HYPOGLYC 06/23/2017 RONEY SHANNONMARIIA Ot Z91.14 PATIENT'S OTHER NONCOMPLIANCE WITH MEDIC 06/24/2017 RONEY SHANNON, MARIIA Harding Ot 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/ 06/24/2017 RONEY SHANNON, MARIIA Harding Ot E11.43 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 06/24/2017 RONEY SHANNON, MARIIA Harding Ot E66.9 OBESITY, UNSPECIFIED 06/24/2017 GELLENDER DO, MARIIA Harding Ot E78.5 HYPERLIPIDEMIA, UNSPECIFIED 06/24/2017 GELLENDER DO, MARIIA Harding Ot F41.9 ANXIETY DISORDER, UNSPECIFIED 06/24/2017 GELLENDER DO, MARIIA Harding Ot G47.30 SLEEP APNEA, UNSPECIFIED 06/24/2017 GELLENDER DO, MARIIA Harding Ot I11.0 HYPERTENSIVE HEART DISEASE WITH HEART FA 06/24/2017 MACHODER DO, MARIIA Harding Ot I25.10 ATHSCL HEART DISEASE OF [place] CORONARY 06/24/2017 SANDRALENDER DO, MARIIA Harding Ot I50.41 ACUTE COMBINED SYSTOLIC AND DIASTOLIC (C 06/24/2017 GELLENDER DO, MARIIA Harding Ot I65.23 OCCLUSION AND STENOSIS OF [place]ILATERAL [place] 06/24/2017 GELLENDER DO, MARIIA Harding Ot I73.9 PERIPHERAL VASCULAR DISEASE, UNSPECIFIED 06/24/2017 GELLENDER DO, MARIIA Harding Ot N28.9 DISORDER OF KIDNEY AND URETER, UNSPECIFI 06/24/2017 SANDRALENDER DOMARIIA Ot N52.1 ERECTILE DYSFUNCTION DUE TO DISEASES CLA 06/24/2017 MACHODER DO, MARIIA Harding Ot R07.9 CHEST PAIN, UNSPECIFIED 06/24/2017 GELLENDER DOMARIIA Ot R42 DIZZINESS AND GIDDINESS 06/24/2017 SANDRALENDER DO, MARIIA Harding Ot Z68.41 BODY MASS INDEX (BMI) 40.0-44.9, ADULT 06/24/2017 MACHODER DO, MARIIA Harding Ot Z79.84 FDC (CURRENT) USE OF ORAL HYPOGLYC 06/24/2017 RONEY SHANNON, MARIIA Harding Ot Z91.14 PATIENT'S OTHER NONCOMPLIANCE WITH MEDIC 06/25/2017 MACHODER DO, MARIIA Harding Ot 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/ 06/25/2017 GELLENDER DOMARIIA Ot E11.43 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 06/25/2017 SANDRALENDER DO, MARIIA Harding Ot E66.9 OBESITY, UNSPECIFIED 06/25/2017 GELLENDER DO, MARIIA Harding Ot E78.5 HYPERLIPIDEMIA, UNSPECIFIED 06/25/2017 GELLENDER DO, MARIIA Harding Ot F41.9 ANXIETY DISORDER, UNSPECIFIED 06/25/2017 GELLENDER DO, MARIIA Harding Ot G47.30 SLEEP APNEA, UNSPECIFIED 06/25/2017 RONEY SHANNONMARIIA Ot I11.0 HYPERTENSIVE HEART DISEASE WITH HEART FA 06/25/2017 RONEY SHANNON, MARIIA Harding Ot I25.10 ATHSCL HEART DISEASE OF [place] CORONARY 06/25/2017 RONEY SHANNON, MARIIA Harding Ot I50.41 ACUTE COMBINED SYSTOLIC AND DIASTOLIC (C 06/25/2017 RONEY SHANNON, MARIIA Harding Ot I65.23 OCCLUSION AND STENOSIS OF BILATERAL [place] 06/25/2017 RONEY SHANNON, MARIIA Harding Ot I73.9 PERIPHERAL VASCULAR DISEASE, UNSPECIFIED 06/25/2017 RONEY SHANNON, MARIIA Harding Ot N28.9 DISORDER OF KIDNEY AND URETER, UNSPECIFI 06/25/2017 RONEY SHANNONMARIIA Ot N52.1 ERECTILE DYSFUNCTION DUE TO DISEASES CLA 06/25/2017 RONEY SHANNONMARIIA Ot R07.9 CHEST PAIN, UNSPECIFIED 06/25/2017 RONEY SHANNONMARIIA Ot R42 DIZZINESS AND GIDDINESS 06/25/2017 [facility] Z68.41 BODY MASS INDEX (BMI) 40.0-44.9, ADULT 06/25/2017 RONEY SHANNONMARIIA Ot Z79.84 SOFTWARE DEVELOPMENT INTERN (CURRENT) USE OF ORAL HYPOGLYC 06/25/2017 [facility] Ot Z91.14 PATIENT'S OTHER NONCOMPLIANCE WITH MEDIC 06/26/2017 [facility] MARIIA Harding Ot 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/ 06/26/2017 RONYE SHANNONMARIIA Ot E11.43 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 06/26/2017 RONEY SHANNONMARIIA Ot E66.9 OBESITY, UNSPECIFIED 06/26/2017 MACHODER MARIIA Ot E78.5 HYPERLIPIDEMIA, UNSPECIFIED 06/26/2017 RONEY SHANNONMARIIA Ot F41.9 ANXIETY DISORDER, UNSPECIFIED 06/26/2017 RONEY SHANNONMARIIA Ot G47.30 SLEEP APNEA, UNSPECIFIED 06/26/2017 RONEY SHANNONMARIIA Ot I11.0 HYPERTENSIVE HEART DISEASE WITH HEART FA 06/26/2017 RONEY SHANNON, MARIIA Harding Ot I25.10 ATHSCL HEART DISEASE OF [place] CORONARY 06/26/2017 RONEY DO, MARIIA Harding Ot I50.41 ACUTE COMBINED SYSTOLIC AND DIASTOLIC (C 06/26/2017 RONEY SHANNON, MARIIA Harding Ot I65.23 OCCLUSION AND STENOSIS OF BILATERAL [place] 06/26/2017 RONEY SHANNON, MARIIA Harding Ot I73.9 PERIPHERAL VASCULAR DISEASE, UNSPECIFIED 06/26/2017 RONEY SHANNON, MARIIA Harding Ot N28.9 DISORDER OF KIDNEY AND URETER, UNSPECIFI 06/26/2017 RONEY SHANNONMARIIA Ot N52.1 ERECTILE DYSFUNCTION DUE TO DISEASES CLA 06/26/2017 RONEY SHANNONMARIIA Ot R07.9 CHEST PAIN, UNSPECIFIED 06/26/2017 RONEY SHANNONMARIIA Ot R42 DIZZINESS AND GIDDINESS 06/26/2017 RONEY SHANNONMARIIA Ot Z68.41 BODY MASS INDEX (BMI) 40.0-44.9, ADULT 06/26/2017 RONEY SHANNONMARIIA Ot Z79.84 SOFTWARE DEVELOPMENT INTERN (CURRENT) USE OF ORAL HYPOGLYC 06/26/2017 RONEY SHANNONMARIIA Ot Z91.14 PATIENT'S OTHER NONCOMPLIANCE WITH MEDIC 06/27/2017 RONEY SHANNONMARIIA Ot 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/ 06/27/2017 RONEY SHANNONMARIIA Ot E11.43 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 06/27/2017 RONEY SHANNONMARIIA Ot E66.9 OBESITY, UNSPECIFIED 06/27/2017 RONEY SHANNONMARIIA Ot E78.5 HYPERLIPIDEMIA, UNSPECIFIED 06/27/2017 RONEY SHANNONMARIIA Ot F41.9 ANXIETY DISORDER, UNSPECIFIED 06/27/2017 RONEY SHANNONMARIIA Ot G47.30 SLEEP APNEA, UNSPECIFIED 06/27/2017 RONEY SHANNONMARIIA Ot I11.0 HYPERTENSIVE HEART DISEASE WITH HEART FA 06/27/2017 RONEY SHANNONMARIIA Ot I25.10 ATHSCL HEART DISEASE OF [place] CORONARY 06/27/2017 RONEY SHANNON, MARIIA Harding Ot I50.41 ACUTE COMBINED SYSTOLIC AND DIASTOLIC (C 06/27/2017 RONEY SHANNON, MARIIA Harding Ot I65.23 OCCLUSION AND STENOSIS OF BILATERAL [place] 06/27/2017 RONEY SHANNON, MARIIA Harding Ot I73.9 PERIPHERAL VASCULAR DISEASE, UNSPECIFIED 06/27/2017 RONEY SHANNONMARIIA Ot N28.9 DISORDER OF KIDNEY AND URETER, UNSPECIFI 06/27/2017 GELLENDER DO, MARIIA Harding Ot N52.1 ERECTILE DYSFUNCTION DUE TO DISEASES CLA 06/27/2017 RONEY DO, MARIIA Harding Ot R07.9 CHEST PAIN, UNSPECIFIED 06/27/2017 SANDRALENDER DO, MARIIA Harding Ot R42 DIZZINESS AND GIDDINESS 06/27/2017 SANDRALENDER DO, MARIIA Harding Ot Z68.41 BODY MASS INDEX (BMI) 40.0-44.9, ADULT 06/27/2017 RONEY SHANNON, MARIIA Harding Ot Z79.84 FDC (CURRENT) USE OF ORAL HYPOGLYC 06/27/2017 SANDRALENDER DO, MARIIA Harding Ot Z91.14 PATIENT'S OTHER NONCOMPLIANCE WITH MEDIC 06/27/2017 RONEY SHANNON, MARIIA Harding Ot 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/ 06/27/2017 GELLENDER DOMARIIA Ot E11.43 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 06/27/2017 RONEY DO, MARIIA Harding Ot E66.9 OBESITY, UNSPECIFIED 06/27/2017 GELLENDER DOMARIIA Ot E78.5 HYPERLIPIDEMIA, UNSPECIFIED 06/27/2017 GELLENDER DOMARIIA Ot F41.9 ANXIETY DISORDER, UNSPECIFIED 06/27/2017 MACHODER DOMARIIA Ot G47.30 SLEEP APNEA, UNSPECIFIED 06/27/2017 MACHODER MARIIA Ot I11.0 HYPERTENSIVE HEART DISEASE WITH HEART FA 06/27/2017 RONEY SHANNONMARIIA Ot I25.10 ATHSCL HEART DISEASE OF [place] CORONARY 06/27/2017 RONEY SHANNON, MARIIA Harding Ot I50.41 ACUTE COMBINED SYSTOLIC AND DIASTOLIC (C 06/27/2017 GELLENDER DOMARIIA Ot I65.23 OCCLUSION AND STENOSIS OF BILATERAL [place] 06/27/2017 GELLENDER DOMARIIA Ot I73.9 PERIPHERAL VASCULAR DISEASE, UNSPECIFIED 06/27/2017 GELLENDER DOMARIIA Ot N28.9 DISORDER OF KIDNEY AND URETER, UNSPECIFI 06/27/2017 SANDRALENDER DOMARIIA Ot N52.1 ERECTILE DYSFUNCTION DUE TO DISEASES CLA 06/27/2017 RONEY DO, MARIIA Harding Ot R07.9 CHEST PAIN, UNSPECIFIED 06/27/2017 GELLENDER DOMARIIA Ot R42 DIZZINESS AND GIDDINESS 06/27/2017 RONEY SHANNON, MARIIA Harding Ot Z68.41 BODY MASS INDEX (BMI) 40.0-44.9, ADULT 06/27/2017 RONEY SHANNONMARIIA Ot Z79.84 FDC (CURRENT) USE OF ORAL HYPOGLYC 06/27/2017 RONEY SHANNONMARIIA Ot Z91.14 PATIENT'S OTHER NONCOMPLIANCE WITH MEDIC 06/27/2017 RONEY SHANNON, MARIIA Harding Ot B37.2 CANDIDIASIS OF SKIN AND NAIL 06/27/2017 RONEY SHANNON, MARIIA Harding Ot D64.9 ANEMIA, UNSPECIFIED 06/27/2017 RONEY SHANNON, MARIIA Harding Ot 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/ 06/27/2017 RONEY SHANNONMARIIA Ot E11.43 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 06/27/2017 RONEY SHANNONMARIIA Ot E66.9 OBESITY, UNSPECIFIED 06/27/2017 RONEY SHANNONMARIIA Ot E78.5 HYPERLIPIDEMIA, UNSPECIFIED 06/27/2017 RONEY SHANNONMARIIA Ot F41.9 ANXIETY DISORDER, UNSPECIFIED 06/27/2017 RONEY SHANNONMARIIA Ot G47.30 SLEEP APNEA, UNSPECIFIED 06/27/2017 RNOEY SHANNONMARIIA Ot I11.0 HYPERTENSIVE HEART DISEASE WITH HEART FA 06/27/2017 RONEY SHANNONMARIIA Ot I25.10 ATHSCL HEART DISEASE OF [place] CORONARY 06/27/2017 RONEY SHANNONMARIIA Ot I50.41 ACUTE COMBINED SYSTOLIC AND DIASTOLIC (C 06/27/2017 RONEY SHANNONMARIIA Ot I65.23 OCCLUSION AND STENOSIS OF BILATERAL [place] 06/27/2017 RONEY SHANNONMARIIA Ot I73.9 PERIPHERAL VASCULAR DISEASE, UNSPECIFIED 06/27/2017 RONEY SHANNONMARIIA Ot J11.1 FLU DUE TO UNIDENTIFIED INFLUENZA VIRUS 06/27/2017 RONEY SHANNONMARIIA Ot N28.9 DISORDER OF KIDNEY AND URETER, UNSPECIFI 06/27/2017 RONEY SHANNONMARIIA Ot N52.1 ERECTILE DYSFUNCTION DUE TO DISEASES CLA 06/27/2017 RONEY SHANNONMARIIA Ot R07.9 CHEST PAIN, UNSPECIFIED 06/27/2017 RONEY SHANNONMARIIA Ot R42 DIZZINESS AND GIDDINESS 06/27/2017 RONEY SHANNON MARIIA Harding Ot R60.0 LOCALIZED EDEMA 06/27/2017 RONEY SHANNON, MARIIA Harding Ot Z23 ENCOUNTER FOR IMMUNIZATION 06/27/2017 RONEY SHANNON MARIIA Harding Ot Z68.41 BODY MASS INDEX (BMI) 40.0-44.9, ADULT 06/27/2017 MARIIA SIM DO Ot Z79.84 SOFTWARE DEVELOPMENT INTERN (CURRENT) USE OF ORAL HYPOGLYC 06/27/2017 RONEY SHANNON MARIIA Harding Ot Z91.14 PATIENT'S OTHER NONCOMPLIANCE WITH MEDIC Procedures Code Description Performed By [place]formed On 305324T DILATION OF 1 COR ART WITH DRUG-ELUT INT 06/23/2017 [id number] MEASURE OF CARDIAC SAMPL PRESSURE, L H 06/23/2017 [id number] FLUOROSCOPY OF LEFT HEART USING LOW OSMO 06/23/2017 Results Test Result Range PT panel in [...] urinalysis with reflex to culture NO NRG Influenza virus A and B antigen detection - 06/20/17 12:27 CALL POSITIVES (F1 HELP) CALLED TO ISRA AT 1258 NRG FLU RESULT POSITIVE FOR INFLUENZA A ANTIGEN, NEG FOR B ANTIGEN, BY IA NRG Capillary blood glucose measurement by glucometer (mass/volume) - 06/20/17 15: 25 Capillary blood glucose measurement by glucometer (mass/volume) 107 mg/dL 70-110 Capillary blood glucose measurement by glucometer (mass/volume) - 06/20/17 21: 04 Capillary blood glucose measurement by glucometer (mass/volume) 168 mg/dL 70-110 Capillary blood glucose measurement by glucometer (mass/volume) - 06/21/17 05: 08 Capillary blood glucose measurement by glucometer (mass/volume) 131 mg/dL 70-110 Complete blood count (CBC) with automated white blood cell (WBC) differential - 06/21/17 05:23 Blood leukocytes automated count (number/volume) 3.8 10*3/uL 4.3-11.0 Blood erythrocytes automated count (number/volume) 3.28 10*6/uL 4.35-5.85 Venous blood hemoglobin measurement (mass/volume) 9.0 g/dL 13.3-17.7 Blood hematocrit (volume fraction) 28 % 40-54 Automated erythrocyte mean corpuscular volume 85 [foz_us] 80-99 Automated erythrocyte mean corpuscular hemoglobin (mass per erythrocyte) 27 pg 25-34 Automated erythrocyte mean corpuscular hemoglobin concentration measurement ( mass/volume) 32 g/dL 32-36 Automated erythrocyte distribution width ratio 12.7 % 10.0-14.5 Automated blood platelet count (count/volume) 219 10*3/uL 130-400 Automated blood platelet mean volume measurement 11.1 [foz_us] 7.4-10.4 Automated blood neutrophils/100 leukocytes 58 % 42-75 Automated blood lymphocytes/100 leukocytes 19 % 12-44 Blood monocytes/100 leukocytes 16 % 0-12 Automated blood eosinophils/100 leukocytes 7 % 0-10 Automated blood basophils/100 leukocytes 1 % 0-10 Blood neutrophils automated count (number/volume) 2.2 10*3 1.8-7.8 Blood lymphocytes automated count (number/volume) 0.7 10*3 1.0-4.0 Blood monocytes automated count (number/volume) 0.6 10*3 0.0-1.0 Automated eosinophil count 0.3 10*3/uL 0.0-0.3 Automated blood basophil count (count/volume) 0.0 10*3/uL 0.0-0.1 Comprehensive metabolic panel - 06/21/17 05:23 Serum or plasma sodium measurement (moles/volume) 137 mmol/L 135-145 Serum or plasma potassium measurement (moles/volume) 4.4 mmol/L 3.6-5.0 Serum or plasma chloride measurement (moles/volume) 103 mmol/L 98-107 Carbon dioxide 21 mmol/L 21-32 Serum or plasma anion gap determination (moles/volume) 13 mmol/L 5-14 Serum or plasma urea nitrogen measurement (mass/volume) 30 mg/dL 7-18 Serum or plasma creatinine measurement (mass/volume) 1.35 mg/dL 0.60-1.30 Serum or plasma urea nitrogen/creatinine mass ratio 22 NRG Serum or plasma creatinine measurement with calculation of estimated glomerular filtration rate 56 NRG Serum or plasma glucose measurement (mass/volume) 125 mg/dL 70-105 Serum or plasma calcium measurement (mass/volume) 8.4 mg/dL 8.5-10.1 Serum or plasma total bilirubin measurement (mass/volume) 0.4 mg/dL 0.1-1.0 Serum or plasma alkaline phosphatase measurement (enzymatic activity/volume) 99 U/L 40-136 Serum or plasma aspartate aminotransferase measurement (enzymatic activity/ volume) 26 U/L 5-34 Serum or plasma alanine aminotransferase measurement (enzymatic activity/volume ) 26 U/L 0-55 Serum or plasma protein measurement (mass/volume) 5.3 g/dL 6.4-8.2 Serum or plasma albumin measurement (mass/volume) 3.2 g/dL 3.2-4.5 Magnesium - 06/21/17 05:23 Magnesium 1.5 mg/dL 1.8-2.4 Lipid 1996 panel - 06/21/17 05:23 Serum or plasma triglyceride measurement (mass/volume) 108 mg/dL <150 Serum or plasma cholesterol measurement (mass/volume) 129 mg/dL < 200 Serum or plasma cholesterol in HDL measurement (mass/volume) 26 mg/ dL 40-60 Cholesterol in LDL [mass/volume] in serum or plasma by direct assay 76 mg/dL 1-129 Serum or plasma cholesterol in VLDL measurement (mass/volume) 22 mg/ dL 5-40 Serum or plasma lithium measurement (moles/volume) - 06/21/17 05:23 BNP level 795.2 pg/mL <100.0 Hemoglobin A1c - 06/21/17 05:23 Hemoglobin A1c 7.4 % 4.5-6.2 THYROID STIMULATING HORMONE - 06/21/17 05:23 THYROID STIMULATING HORMONE 1.10 u[iU]/mL 0.35-4.94 Capillary blood glucose measurement by glucometer (mass/volume) - 06/21/17 10: 50 Capillary blood glucose measurement by glucometer (mass/volume) 186 mg/dL 70-110 Capillary blood glucose measurement by glucometer (mass/volume) - 06/21/17 15: 49 Capillary blood glucose measurement by glucometer (mass/volume) 164 mg/dL 70-110 Capillary blood glucose measurement by glucometer (mass/volume) - 06/21/17 20: 52 Capillary blood glucose measurement by glucometer (mass/volume) 187 mg/dL 70-110 Capillary blood glucose measurement by glucometer (mass/volume) - 06/22/17 05: 05 Capillary blood glucose measurement by glucometer (mass/volume) 171 mg/dL 70-110 Automated blood complete blood count (hemogram) panel - 06/22/17 05:30 Blood leukocytes automated count (number/volume) 3.6 10*3/uL 4.3-11.0 Blood erythrocytes automated count (number/volume) 3.37 10*6/uL 4.35-5.85 Venous blood hemoglobin measurement (mass/volume) 9.3 g/dL 13.3-17.7 Blood hematocrit (volume fraction) 29 % 40-54 Automated erythrocyte mean corpuscular volume 86 [foz_us] 80-99 Automated erythrocyte mean corpuscular hemoglobin (mass per erythrocyte) 28 pg 25-34 Automated erythrocyte mean corpuscular hemoglobin concentration measurement ( mass/volume) 32 g/dL 32-36 Automated erythrocyte distribution width ratio 12.8 % 10.0-14.5 Automated blood platelet count (count/volume) 204 10*3/uL 130-400 Automated blood platelet mean volume measurement 10.7 [foz_us] 7.4-10.4 Whole blood basic metabolic panel - 06/22/17 05:30 Serum or plasma sodium measurement (moles/volume) 141 mmol/L 135-145 Serum or plasma potassium measurement (moles/volume) 4.3 mmol/L 3.6-5.0 Serum or plasma chloride measurement (moles/volume) 106 mmol/L 98-107 Carbon dioxide 24 mmol/L 21-32 Serum or plasma anion gap determination (moles/volume) 11 mmol/L 5-14 Serum or plasma urea nitrogen measurement (mass/volume) 34 mg/dL 7-18 Serum or plasma creatinine measurement (mass/volume) 1.38 mg/dL 0.60-1.30 Serum or plasma urea nitrogen/creatinine mass ratio 25 NRG Serum or plasma creatinine measurement with calculation of estimated glomerular filtration rate 54 NRG Serum or plasma glucose measurement (mass/volume) 163 mg/dL 70-105 Serum or plasma calcium measurement (mass/volume) 8.3 mg/dL 8.5-10.1 Magnesium - 06/22/17 05:30 Magnesium 2.0 mg/dL 1.8-2.4 Serum or plasma lithium measurement (moles/volume) - 06/22/17 05:30 BNP level 510.5 pg/mL <100.0 Serum or plasma troponin i.cardiac measurement (mass/volume) - 06/22/17 05:30 Serum or plasma troponin i.cardiac measurement (mass/volume) < ng/ mL <0.30 Capillary blood glucose measurement by glucometer (mass/volume) - 06/22/17 10: 45 Capillary blood glucose measurement by glucometer (mass/volume) 134 mg/dL 70-110 Capillary blood glucose measurement by glucometer (mass/volume) - 06/22/17 16: 24 Capillary blood glucose measurement by glucometer (mass/volume) 130 mg/dL 70-110 Capillary blood glucose measurement by glucometer (mass/volume) - 06/22/17 20: 03 Capillary blood glucose measurement by glucometer (mass/volume) 166 mg/dL 70-110 Methicillin resistant Staphylococcus aureus (MRSA) screening culture - 22:56 Methicillin resistant Staphylococcus aureus (MRSA) screening culture NEG NRG Complete blood count (CBC) with automated white blood cell (WBC) differential - 06/23/17 05:30 Blood leukocytes automated count (number/volume) 4.4 10*3/uL 4.3-11.0 Blood erythrocytes automated count (number/volume) 3.66 10*6/uL 4.35-5.85 Venous blood hemoglobin measurement (mass/volume) 10.0 g/dL 13.3-17.7 Blood hematocrit (volume fraction) 32 % 40-54 Automated erythrocyte mean corpuscular volume 86 [foz_us] 80-99 Automated erythrocyte mean corpuscular hemoglobin (mass per erythrocyte) 27 pg 25-34 Automated erythrocyte mean corpuscular hemoglobin concentration measurement ( mass/volume) 32 g/dL 32-36 Automated erythrocyte distribution width ratio 12.7 % 10.0-14.5 Automated blood platelet count (count/volume) 216 10*3/uL 130-400 Automated blood platelet mean volume measurement 11.2 [foz_us] 7.4-10.4 Automated blood neutrophils/100 leukocytes 59 % 42-75 Automated blood lymphocytes/100 leukocytes 23 % 12-44 Blood monocytes/100 leukocytes 9 % 0-12 Automated blood eosinophils/100 leukocytes 8 % 0-10 Automated blood basophils/100 leukocytes 1 % 0-10 Blood neutrophils automated count (number/volume) 2.6 10*3 1.8-7.8 Blood lymphocytes automated count (number/volume) 1.0 10*3 1.0-4.0 Blood monocytes automated count (number/volume) 0.4 10*3 0.0-1.0 Automated eosinophil count 0.4 10*3/uL 0.0-0.3 Automated blood basophil count (count/volume) 0.0 10*3/uL 0.0-0.1 Comprehensive metabolic panel - 06/23/17 05:30 Serum or plasma sodium measurement (moles/volume) 141 mmol/L 135-145 Serum or plasma potassium measurement (moles/volume) 4.4 mmol/L 3.6-5.0 Serum or plasma chloride measurement (moles/volume) 105 mmol/L 98-107 Carbon dioxide 26 mmol/L 21-32 Serum or plasma anion gap determination (moles/volume) 10 mmol/L 5-14 Serum or plasma urea nitrogen measurement (mass/volume) 33 mg/dL 7-18 Serum or plasma creatinine measurement (mass/volume) 1.20 mg/dL 0.60-1.30 Serum or plasma urea nitrogen/creatinine mass ratio 28 NRG Serum or plasma creatinine measurement with calculation of estimated glomerular filtration rate > NRG Serum or plasma glucose measurement (mass/volume) 177 mg/dL 70-105 Serum or plasma calcium measurement (mass/volume) 8.6 mg/dL 8.5-10.1 Serum or plasma total bilirubin measurement (mass/volume) 0.3 mg/dL 0.1-1.0 Serum or plasma alkaline phosphatase measurement (enzymatic activity/volume) 101 U/L 40-136 Serum or plasma aspartate aminotransferase measurement (enzymatic activity/ volume) 20 U/L 5-34 Serum or plasma alanine aminotransferase measurement (enzymatic activity/volume ) 22 U/L 0-55 Serum or plasma protein measurement (mass/volume) 5.6 g/dL 6.4-8.2 Serum or plasma albumin measurement (mass/volume) 3.2 g/dL 3.2-4.5 Hemoglobin A1c - 06/23/17 05:30 Hemoglobin A1c 7.5 % 4.5-6.2 PT panel in platelet poor plasma by coagulation assay - 06/23/17 05:30 Prothrombin time (PT) in platelet poor plasma by coagulation assay 13.3 s 12.2-14.7 INR in platelet poor plasma or blood by coagulation assay 1.0 0.8-1.4 Activated partial thromboplastin time (aPTT) in platelet poor plasma bycoagulation assay - 06/23/17 05:30 Activated partial thromboplastin time (aPTT) in platelet poor plasma bycoagulation assay 35 s 24-35 Capillary blood glucose measurement by glucometer (mass/volume) - 06/23/17 05: 45 Capillary blood glucose measurement by glucometer (mass/volume) 172 mg/dL 70-110 Capillary blood glucose measurement by glucometer (mass/volume) - 06/23/17 11: 02 Capillary blood glucose measurement by glucometer (mass/volume) 180 mg/dL 70-110 Capillary blood glucose measurement by glucometer (mass/volume) - 06/23/17 17: 04 Capillary blood glucose measurement by glucometer (mass/volume) 155 mg/dL 70-110 Capillary blood glucose measurement by glucometer (mass/volume) - 06/23/17 20: 53 Capillary blood glucose measurement by glucometer (mass/volume) 157 mg/dL 70-110 Complete blood count (CBC) with automated white blood cell (WBC) differential - 06/24/17 04:45 Blood leukocytes automated count (number/volume) 5.5 10*3/uL 4.3-11.0 Blood erythrocytes automated count (number/volume) 3.23 10*6/uL 4.35-5.85 Venous blood hemoglobin measurement (mass/volume) 8.8 g/dL 13.3-17.7 Blood hematocrit (volume fraction) 28 % 40-54 Automated erythrocyte mean corpuscular volume 85 [foz_us] 80-99 Automated erythrocyte mean corpuscular hemoglobin (mass per erythrocyte) 27 pg 25-34 Automated erythrocyte mean corpuscular hemoglobin concentration measurement ( mass/volume) 32 g/dL 32-36 Automated erythrocyte distribution width ratio 12.6 % 10.0-14.5 Automated blood platelet count (count/volume) 208 10*3/uL 130-400 Automated blood platelet mean volume measurement 10.6 [foz_us] 7.4-10.4 Automated blood neutrophils/100 leukocytes 69 % 42-75 Automated blood lymphocytes/100 leukocytes 19 % 12-44 Blood monocytes/100 leukocytes 9 % 0-12 Automated blood eosinophils/100 leukocytes 3 % 0-10 Automated blood basophils/100 leukocytes 0 % 0-10 Blood neutrophils automated count (number/volume) 3.8 10*3 1.8-7.8 Blood lymphocytes automated count (number/volume) 1.0 10*3 1.0-4.0 Blood monocytes automated count (number/volume) 0.5 10*3 0.0-1.0 Automated eosinophil count 0.2 10*3/uL 0.0-0.3 Automated blood basophil count (count/volume) 0.0 10*3/uL 0.0-0.1 Whole blood basic metabolic panel - 06/24/17 04:45 Serum or plasma sodium measurement (moles/volume) 142 mmol/L 135-145 Serum or plasma potassium measurement (moles/volume) 4.1 mmol/L 3.6-5.0 Serum or plasma chloride measurement (moles/volume) 105 mmol/L 98-107 Carbon dioxide 27 mmol/L 21-32 Serum or plasma anion gap determination (moles/volume) 10 mmol/L 5-14 Serum or plasma urea nitrogen measurement (mass/volume) 31 mg/dL 7-18 Serum or plasma creatinine measurement (mass/volume) 1.24 mg/dL 0.60-1.30 Serum or plasma urea nitrogen/creatinine mass ratio 25 NRG Serum or plasma creatinine measurement with calculation of estimated glomerular filtration rate > NRG Serum or plasma glucose measurement (mass/volume) 214 mg/dL 70-105 Serum or plasma calcium measurement (mass/volume) 8.0 mg/dL 8.5-10.1 Serum or plasma phosphate measurement (mass/volume) - 06/24/17 04:45 Serum or plasma phosphate measurement (mass/volume) 4.3 mg/dL 2.3-4.7 Magnesium - 06/24/17 04:45 Magnesium 1.7 mg/dL 1.8-2.4 Capillary blood glucose measurement by glucometer (mass/volume) - 06/24/17 11: 19 Capillary blood glucose measurement by glucometer (mass/volume) 181 mg/dL 70-110 Capillary blood glucose measurement by glucometer (mass/volume) - 06/24/17 16: 22 Capillary blood glucose measurement by glucometer (mass/volume) 244 mg/dL 70-110 Capillary blood glucose measurement by glucometer (mass/volume) - 06/24/17 20: 51 Capillary blood glucose measurement by glucometer (mass/volume) 162 mg/dL 70-110 Automated blood complete blood count (hemogram) panel - 06/25/17 05:31 Blood leukocytes automated count (number/volume) 7.7 10*3/uL 4.3-11.0 Blood erythrocytes automated count (number/volume) 3.41 10*6/uL 4.35-5.85 Venous blood hemoglobin measurement (mass/volume) 9.1 g/dL 13.3-17.7 Blood hematocrit (volume fraction) 29 % 40-54 Automated erythrocyte mean corpuscular volume 86 [foz_us] 80-99 Automated erythrocyte mean corpuscular hemoglobin (mass per erythrocyte) 27 pg 25-34 Automated erythrocyte mean corpuscular hemoglobin concentration measurement ( mass/volume) 31 g/dL 32-36 Automated erythrocyte distribution width ratio 12.8 % 10.0-14.5 Automated blood platelet count (count/volume) 229 10*3/uL 130-400 Automated blood platelet mean volume measurement 10.5 [foz_us] 7.4-10.4 Comprehensive metabolic panel - 06/25/17 05:31 Serum or plasma sodium measurement (moles/volume) 140 mmol/L 135-145 Serum or plasma potassium measurement (moles/volume) 4.3 mmol/L 3.6-5.0 Serum or plasma chloride measurement (moles/volume) 104 mmol/L 98-107 Carbon dioxide 26 mmol/L 21-32 Serum or plasma anion gap determination (moles/volume) 10 mmol/L 5-14 Serum or plasma urea nitrogen measurement (mass/volume) 37 mg/dL 7-18 Serum or plasma creatinine measurement (mass/volume) 1.53 mg/dL 0.60-1.30 Serum or plasma urea nitrogen/creatinine mass ratio 24 NRG Serum or plasma creatinine measurement with calculation of estimated glomerular filtration rate 48 NRG Serum or plasma glucose measurement (mass/volume) 158 mg/dL 70-105 Serum or plasma calcium measurement (mass/volume) 8.1 mg/dL 8.5-10.1 Serum or plasma total bilirubin measurement (mass/volume) 0.3 mg/dL 0.1-1.0 Serum or plasma alkaline phosphatase measurement (enzymatic activity/volume) 98 U/L 40-136 Serum or plasma aspartate aminotransferase measurement (enzymatic activity/ volume) 33 U/L 5-34 Serum or plasma alanine aminotransferase measurement (enzymatic activity/volume ) 24 U/L 0-55 Serum or plasma protein measurement (mass/volume) 5.3 g/dL 6.4-8.2 Serum or plasma albumin measurement (mass/volume) 3.1 g/dL 3.2-4.5 Capillary blood glucose measurement by glucometer (mass/volume) - 06/25/17 05: 37 Capillary blood glucose measurement by glucometer (mass/volume) 174 mg/dL 70-110 Capillary blood glucose measurement by glucometer (mass/volume) - 06/25/17 10: 47 Capillary blood glucose measurement by glucometer (mass/volume) 183 mg/dL 70-110 Capillary blood glucose measurement by glucometer (mass/volume) - 06/25/17 16: 34 Capillary blood glucose measurement by glucometer (mass/volume) 217 mg/dL 70-110 Capillary blood glucose measurement by glucometer (mass/volume) - 06/25/17 20: 58 Capillary blood glucose measurement by glucometer (mass/volume) 189 mg/dL 70-110 Capillary blood glucose measurement by glucometer (mass/volume) - 06/26/17 06: 20 Capillary blood glucose measurement by glucometer (mass/volume) 171 mg/dL 70-110 Capillary blood glucose measurement by glucometer (mass/volume) - 06/26/17 10: 42 Capillary blood glucose measurement by glucometer (mass/volume) 304 mg/dL 70-110 Whole blood basic metabolic panel - 06/26/17 13:38 Serum or plasma sodium measurement (moles/volume) 140 mmol/L 135-145 Serum or plasma potassium measurement (moles/volume) 4.2 mmol/L 3.6-5.0 Serum or plasma chloride measurement (moles/volume) 101 mmol/L 98-107 Carbon dioxide 28 mmol/L 21-32 Serum or plasma anion gap determination (moles/volume) 11 mmol/L 5-14 Serum or plasma urea nitrogen measurement (mass/volume) 39 mg/dL 7-18 Serum or plasma creatinine measurement (mass/volume) 1.81 mg/dL 0.60-1.30 Serum or plasma urea nitrogen/creatinine mass ratio 22 NRG Serum or plasma creatinine measurement with calculation of estimated glomerular filtration rate 40 NRG Serum or plasma glucose measurement (mass/volume) 215 mg/dL 70-105 Serum or plasma calcium measurement (mass/volume) 8.8 mg/dL 8.5-10.1 Capillary blood glucose measurement by glucometer (mass/volume) - 06/26/17 15: 57 Capillary blood glucose measurement by glucometer (mass/volume) 207 mg/dL 70-110 Capillary blood glucose measurement by glucometer (mass/volume) - 06/26/17 21: 27 Capillary blood glucose measurement by glucometer (mass/volume) 178 mg/dL 70-110 Whole blood basic metabolic panel - 06/27/17 05:52 Serum or plasma sodium measurement (moles/volume) 139 mmol/L 135-145 Serum or plasma potassium measurement (moles/volume) 3.9 mmol/L 3.6-5.0 Serum or plasma chloride measurement (moles/volume) 100 mmol/L 98-107 Carbon dioxide 28 mmol/L 21-32 Serum or plasma anion gap determination (moles/volume) 11 mmol/L 5-14 Serum or plasma urea nitrogen measurement (mass/volume) 42 mg/dL 7-18 Serum or plasma creatinine measurement (mass/volume) 1.73 mg/dL 0.60-1.30 Serum or plasma urea nitrogen/creatinine mass ratio 24 NRG Serum or plasma creatinine measurement with calculation of estimated glomerular filtration rate 42 NRG Serum or plasma glucose measurement (mass/volume) 153 mg/dL 70-105 Serum or plasma calcium measurement (mass/volume) 8.5 mg/dL 8.5-10.1 Capillary blood glucose measurement by glucometer (mass/volume) - 06/27/17 06: 00 Capillary blood glucose measurement by glucometer (mass/volume) 171 mg/dL 70-110 Capillary blood glucose measurement by glucometer (mass/volume) - 06/27/17 11: 48 Capillary blood glucose measurement by glucometer (mass/volume) 203 mg/dL 70-110 Encounters ACCT No. Visit Date/Time Discharge Status Pt. Type Provider Facility Loc./Unit Complaint [id number] 06/20/2017 12:30:00 06/27/2017 12:21:00 DIS Outpatient MARIIA SIM DO [facility] 4TH ACUTE RECOMPENSATED H /F [id number] 02/09/2016 06:42:00 02/09/2016 14:10:00 DIS Outpatient KAREN YANG MD [facility] CATH ABN. AILYN, DM, CLAUDICATION PAIN [id number] 11/05/2015 16:05:00 11/05/2015 23:59:59 CLS Outpatient KAYLA ISBELL DO [facility] LAB DIARRHEA, UNSPECIFIED [id number] 10/10/2015 07:23:00 11/05/2015 16:03:00 DIS Outpatient MARIIA SIM DO [facility] LAB DIARRHEA [id number] 09/30/2015 13:23:00 09/30/2015 23:59:59 CLS Outpatient EUGENE GOFF MD [facility] RAD [id number] 09/26/2015 06:23:00 09/26/2015 09:35:00 DIS Outpatient EUGENE GOFF MD [facility] SDC [id number] 09/24/2015 13:25:00 09/24/2015 23:59:59 CLS Outpatient EUGENE GOFF MD [facility] RAD [id number] 09/24/2015 05:36:00 09/24/2015 23:59:59 CLS Outpatient EUGENE GOFF MD [facility] PREOP [id number] 09/03/2015 20:26:00 09/04/2015 06:17:00 DIS Outpatient CHRISTINA MOTAP [facility] SLEEP [id number] 06/15/2015 21:30:00 06/17/2015 14:50:00 DIS Inpatient MARIIA SIM DO [facility] CSD [id number] 07/01/2017 20:36:00 ACT Emergency GERA MAST, CAIT [facility] ER CHEST PAIN
[2017-07-01 20:53] LABS: BASOPHILS % (AUTO) 0 % (0-10); EOSINOPHILS # (AUTO) 0.5 10^3/uL (0.0-0.3); EOSINOPHILS % (AUTO) 5 % (0-10); HEMATOCRIT 35 % (40-54); HEMOGLOBIN 11.2 G/DL (13.3-17.7); LYMPHOCYTES # (AUTO) 1.4 X 10^3 (1.0-4.0); LYMPHOCYTES % (AUTO) 13 % (12-44); MEAN CORPUSCULAR HEMOGLOBIN 27 PG (25-34); MEAN CORPUSCULAR HGB CONC 32 G/DL (32-36); MEAN CORPUSCULAR VOLUME 84 FL (80-99); MEAN PLATELET VOLUME 10.2 FL (7.4-10.4); MONOCYTES # (AUTO) 0.9 X 10^3 (0.0-1.0); MONOCYTES % (AUTO) 9 % (0-12); NEUTROPHILS # (AUTO) 7.5 X 10^3 (1.8-7.8); NEUTROPHILS % (AUTO) 73 % (42-75); PLATELET COUNT 388 10^3/uL (130-400); RED BLOOD COUNT 4.14 10^6/uL (4.35-5.85); RED CELL DISTRIBUTION WIDTH 12.9 % (10.0-14.5); WHITE BLOOD COUNT 10.4 10^3/uL (4.3-11.0)
--- NOTE | 2017-07-01 21:01 | Diagnostic Imaging Report ---
INDICATION: Chest pain. COMPARISON: 06/24/2017. FINDINGS: Increased basilar linear opacities. No pleural effusion or pneumothorax. Please note the posterior lower lobes are poorly evaluated by portable radiography. Stable cardiomegaly. IMPRESSION: 1. Increased bibasilar linear opacities suggestive of atelectasis. 2. Stable cardiomegaly. Dictated by: Dictated on workstation # [id number]
[2017-07-01 21:02] LABS: PROTHROMBIN TIME PATIENT 13.7 SEC (12.2-14.7)
--- NOTE | 2017-07-01 21:04 | ED Chest Pain ---
General Chief Complaint: Cardiac/General Problems Stated Complaint: CHEST PAIN Nursing Triage Note: PATIENT STATES THAT HE HE STARTED HAVING CHEST ON HIS RIGHT SIDE THAT STARTED TODAY. Nursing Sepsis Screen: No Definite Risk Source: patient Exam Limitations: no limitations History of Present Illness Date Seen by Provider: Jul 01, 2017 Time Seen by Provider: 20:38 Initial Comments Here with report of right-sided chest wall pain started today a few hours ago. Point tender to the lateral aspect of the right ribs. Recent hospitalization for CHF exacerbation. Discharged on Tuesday of this week. Denies shortness of air or vomiting. Did take his aspirin full dose today. Reports taking his meds as directed. Denies sweating or weakness. Also noted some low back pain earlier today but that has resolved. 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 REMOVER: Yes NTG SL GIZZARD SKIN REMOVER: No Associated Symptoms: No abdominal pain, back pain, edema, No nausea/vomiting, No shortness of breath, No weakness Allergies and Home Medications Allergies Coded Allergies: No Known Drug Allergies (Unverified , 06/20/17) Home Medications Aspirin 81 Mg Tablet.dr, 81 MG PO DAILY, #100 Ref 2 Prescribed by: KAREN YANG on 06/27/17927 Clopidogrel Bisulfate 75 Mg Tablet, 75 MG PO DAILY, #30 Ref 6 Prescribed by: KAREN YANG on 06/27/17927 Furosemide 10 Mg/1 Ml Vial, 40 MG IVP DAILY@07,17, #30 Ref 2 Prescribed by: KAREN YANG on 06/27/17927 Gabapentin 300 Mg Capsule, 600 MG PO 0900,2100, (Reported) TAKES 2 (300MG) CAPSULES Gabapentin 300 Mg Capsule, 300 MG PO 1200, (Reported) Glimepiride 4 Mg Tablet, 4 MG PO DAILY for 30 Days, #30 Prescribed by: MARTINEZ SOW on 06/27/171199 Losartan Potassium 100 Mg Tablet, 100 MG PO DAILY, #30 Prescribed by: KAREN YANG on 06/27/17927 Metoprolol Tartrate 50 Mg Tablet, 50 MG PO BID, #60 Ref 4 Prescribed by: KAREN YANG on 06/27/17927 Review of Systems Constitutional: see HPI, No chills, No fever EENTM: No Symptoms Reported Respiratory: No Symptoms Reported Cardiovascular: See HPI, Chest Pain, Edema, Denies Irregular Heart Rate, Denies Lightheadedness Gastrointestinal: Denies Abdominal Pain, Denies Nausea, Denies Vomiting Genitourinary: No Symptoms Reported Musculoskeletal: see HPI, back pain, muscle pain Skin: no symptoms reported Psychiatric/Neurological: No Symptoms Reported All Other Systems Reviewed Negative Unless Noted: Yes Past Whnykgf-Nmexxe-Zrlrwh Hx Patient Social History Alcohol Use: Denies Use Recreational Drug Use: No Smoking Status: Never a Smoker 2nd Hand Smoke Exposure: No Recent Foreign Travel: No Contact w/Someone Who Travel: No Recent Infectious Disease Expo: No Recent Hopitalizations: No Immunizations Up To Date Tetanus Booster (TDap): Unknown Date of Pneumonia Vaccine: Jun 16, 2015 Date of Influenza Vaccine: Jun 20, 2017 Seasonal Allergies Seasonal Allergies: No Surgeries History of Surgeries: Yes (NASAL POLYPS REMOVED CHILD, CARDIAC CATH-NO INTERVENTION) Surgeries: Cardiac, Nose Respiratory History of Respiratory Disorde: Yes Respiratory Disorders: Sleep Apnea Currently Using CPAP: Yes Currently Using BIPAP: No Cardiovascular History of Cardiac Disorders: Yes (PAD) Cardiac Disorders: Coronary Artery Disease, Hypertension, Irregular Heartbeat, Peripheral Vascular Neurological History of Neurological Disord: Yes (NEUROPATHY IN LEGS/ FEET) Neurological Disorders: Neuropathy Reproductive System Hx Reproductive Disorders: Yes (E.D.) Sexually Transmitted Disease: No HIV/AIDS: No Genitourinary History of Genitourinary Disor: No Gastrointestinal History of Gastrointestinal Di: Yes Gastrointestinal Disorders: Chronic Diarrhea Musculoskeletal History of Musculoskeletal Dis: No Endocrine History of Endocrine Disorders: Yes Endocrine Disorders: Diabetes, Non-Insulin dep HEENT History of HEENT Disorders: No Cancer History of Cancer: No Psychosocial History of Psychiatric Problem: Yes Behavioral Health Disorders: Anxiety Integumentary History of Skin or Integumenta: No Blood Transfusions History of Blood Disorders: No Adverse Reaction to a Blood Tr: No Reviewed Nursing Assessment Reviewed/Agree w Nursing PMH: Yes Family Medical History Significant Family History: No Pertinent Family Hx Family Medial History: Arthritis G8 BROTHER (knee replacement) Cardiovascular disease 19 FATHER (chf) Deafness or hearing loss 19 MOTHER (vertigo) Diabetes mellitus 19 MOTHER Prostate cancer 19 FATHER Physical Exam Vital Signs Vital Sign - Last 12Hours 07/01/17 07/01/17 20:40 20:44 Temp 98.8 Pulse 85 Resp 20 B/P (MAP) 171/98 (122) Pulse Ox 94 O2 Delivery Room Air O2 Flow Rate 1.00 FiO2 100 Capillary Refill : Less Than 3 Seconds General Appearance: No Apparent Distress, WD/WN HEENT: PERRL/EOMI, Pharynx Normal Neck: Non Tender, Supple Respiratory: Lungs Clear, Normal Breath Sounds Cardiovascular: Regular Rate, Rhythm, No Murmur Gastrointestinal: Non Tender, Soft Extremity: Normal Range of Motion, Non Tender, Pedal Edema (1-2+ to mid tibia) Neurologic/Psychiatric: Alert, Oriented x3, No Motor/Sensory Deficits Skin: Normal Color, Warm/Dry Progress/Results/Core Measures Results/Orders Lab Results Laboratory Tests Test 07/01/17 20:44 Range/Units White Blood Count 10.4 4.3-11.0 10^3/uL Red Blood Count 4.14 L 4.35-5.85 10^6/uL Hemoglobin 11.2 #L 13.3-17.7 G/DL Hematocrit 35 L 40-54 % Mean Corpuscular Volume 84 80-99 FL Mean Corpuscular Hemoglobin 27 25-34 PG Mean Corpuscular Hemoglobin Concent 32 32-36 G/DL Red Cell Distribution Width 12.9 10.0-14.5 % Platelet Count 388 130-400 10^3/uL Mean Platelet Volume 10.2 7.4-10.4 FL Neutrophils (%) (Auto) 73 42-75 % Lymphocytes (%) (Auto) 13 12-44 % Monocytes (%) (Auto) 9 0-12 % Eosinophils (%) (Auto) 5 0-10 % Basophils (%) (Auto) 0 0-10 % Neutrophils # (Auto) 7.5 1.8-7.8 X 10^3 Lymphocytes # (Auto) 1.4 1.0-4.0 X 10^3 Monocytes # (Auto) 0.9 0.0-1.0 X 10^3 Eosinophils # (Auto) 0.5 H 0.0-0.3 10^3/uL Basophils # (Auto) 0.0 0.0-0.1 10^3/uL Prothrombin Time 13.7 12.2-14.7 SEC INR Comment 1.0 0.8-1.4 Activated Partial Thromboplast Time 34 24-35 SEC Sodium Level 141 135-145 MMOL/L Potassium Level 4.7 3.6-5.0 MMOL/L Chloride Level 100 98-107 MMOL/L Carbon Dioxide Level 28 21-32 MMOL/L Anion Gap 13 5-14 MMOL/L Blood Urea Nitrogen 48 H 7-18 MG/DL Creatinine 1.86 H 0.60-1.30 MG/DL Estimat Glomerular Filtration Rate 38 BUN/Creatinine Ratio 26 Glucose Level 150 H 70-105 MG/DL Calcium Level 9.3 8.5-10.1 MG/DL Magnesium Level 1.8 1.8-2.4 MG/DL Total Bilirubin 0.6 0.1-1.0 MG/DL Aspartate Amino Transf (AST/SGOT) 17 5-34 U/L Alanine Aminotransferase (ALT/SGPT) 24 0-55 U/L Alkaline Phosphatase 115 40-136 U/L Myoglobin 185.7 H 10.0-92.0 NG/ML Troponin I 0.39 *H <0.30 NG/ML B-Type Natriuretic Peptide 455.3 H <100.0 PG/ML Total Protein 6.7 6.4-8.2 GM/DL Albumin 3.7 3.2-4.5 GM/DL Lipase 8 8-78 U/L My Orders Orders - CAIT BOSS MD Cbc With Automated Diff (07/01/17 20:42) Magnesium (07/01/17 20:42) Chest 1 View, Ap/Pa Only (07/01/17 20:42) Ekg Tracing (07/01/17 20:42) Cardiac Profile 1 (07/01/17 20:42) Comprehensive Metabolic Panel (07/01/17 20:42) Myoglobin Serum (07/01/17 20:42) Protime With Inr (07/01/17 20:42) Partial Thromboplastin Time (07/01/17 20:42) O2 (07/01/17 20:42) Monitor-Rhythm Ecg Trace Only (07/01/17 20:42) Lipid Panel (07/02/17 06:00) Saline Lock/Iv-Start (07/01/17 20:42) Lipase (07/01/17 20:42) BNP (07/01/17 20:42) Morphine Injection (Morphine Injection (07/01/17 21:49) Morphine Injection (Morphine Injection (07/01/17 21:49) Enoxaparin Injection (Lovenox Injection) (07/01/17 22:00) Vital Signs/I&O Vital Sign - Last 12Hours 07/01/17 07/01/17 20:40 20:44 Temp 98.8 Pulse 85 Resp 20 B/P (MAP) 171/98 (122) Pulse Ox 94 O2 Delivery Room Air Nasal Cannula O2 Flow Rate 1.00 FiO2 100 Blood Pressure Mean: 122 Progress Note : Progress Note Seen and evaluated. IV, labs, EKG and chest x-ray ordered. No aspirin as the patient is on aspirin today. Pain is not significant currently so we will hold nitroglycerin. Monitor patient. 2137: Troponin is elevated. His only 0.39 but he has no reason for elevation. I did discuss the case with Dr. Franz and he believes patient will be admitted and he will evaluate the morning. Lovenox 1 dose ordered. Patient has tach renal failure so he will reevaluate tomorrow for dosing. We will continue Plavix and metoprolol. 2148: I discussed the case with Dr. Bermeo and she accepts patient for admission, observation status. Patient and family informed and agree with plan. Morphine 4 mg IV for the chest wall pain. ECG Initial ECG Impression Date: Jul 01, 2017 Initial ECG Impression Time: 20:40 Initial ECG Rate: 86 Initial ECG Rhythm: Normal Sinus Comment Sinus rhythm with left axis deviation. Similar to previous of 06/24/17. No evidence of ST elevation HI. Interpreted by me. Diagnostic Imaging Diagonstic Imaging: Xray Plain Films/CT/US/NM/MRI: chest Comments [facility], [facility]. [place], [place] NAME: DULCE MARIA LERMA [facility] REC#: [id number] PT STATUS: REG ER : 1965 PHYSICIAN: CAIT BOSS MD ADMIT DATE: 07/01/17/ER Draft Date of Exam:07/01/17 CHEST 1 VIEW, AP/PA ONLY INDICATION: Chest pain. COMPARISON: 06/24/2017. FINDINGS: Increased basilar linear opacities. No pleural effusion or pneumothorax. Please note the posterior lower lobes are poorly evaluated by portable radiography. Stable cardiomegaly. IMPRESSION: 1. Increased bibasilar linear opacities suggestive of atelectasis. 2. Stable cardiomegaly. Dictated on workstation # [id number] Dict: 07/01/172057 Trans: 07/01/17 2100 THOMAS [id number] Interpreted by: RUBY PARRA MD Electronically signed by: Departure Communication (Admissions) Time/Spoke to Admitting Phy: 21:49 Time/Spoke to Consulting Phy: 21:38 Impression Impression: Primary Impression: Chest pain Qualified Codes: R07.9 - Chest pain, unspecified Additional Impression: Elevated troponin Disposition: ADMITTED INPATIENT Condition: Stable Admissions Decision to Admit Reason: Admit from ER (General) Decision to Admit/Date: Jul 01, 2017 Time/Decision to Admit Time: 21:38 Departure-Patient Inst. Referrals: MARIIA SIM DO (PCP/Family) Primary Care Physician CAIT BOSS MD Jul 01, 2017 21:04
[2017-07-01 21:12] LABS: ALBUMIN 3.7 GM/DL (3.2-4.5); BILIRUBIN,TOTAL 0.6 MG/DL (0.1-1.0); CALCIUM 9.3 MG/DL (8.5-10.1); CREATININE SERUM 1.86 MG/DL (0.60-1.30); MAGNESIUM 1.8 MG/DL (1.8-2.4); POTASSIUM 4.7 MMOL/L (3.6-5.0); TOTAL PROTEIN 6.7 GM/DL (6.4-8.2)
[2017-07-01 21:19] LABS: MYOGLOBIN SERUM 185.7 NG/ML (10.0-92.0)
[2017-07-01] MEDS ORDERED: morphine INJ 10 MG/ML 1ML (SYR OR VIAL) ONE (21:49)
[2017-07-01] MEDS ORDERED: morphine INJ 10 MG/ML 1ML (SYR OR VIAL) IVP STA (21:49)
[2017-07-01] MEDS ORDERED: ENOXAPARIN 60 MG/0.6 ML (LOVENOX) SYR SC ONE (22:00)
--- OUTSIDE RECORDS SUMMARY | 2017-07-01 22:04 | XMS REPORT | Clinical Summary ---
Author Author [facility] Organization [facility] Address Unknown Phone Unavailable Care Team Providers Care Director Of Strategic Alliances Name Role Phone PCP Unavailable Source Comments Some departments are not documenting in the electronic medical record. If you do not see the information that you expected, contact Release of Information in the Health Information Management department at [phone] for further assistance in locating additional records.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
--- OUTSIDE RECORDS SUMMARY | 2017-07-01 22:06 | XMS REPORT | Continuity of Care Document ---
Author Author [facility] Organization [facility] Address Unknown Phone Unavailable Allergies Active Description Code Type Severity Reaction Onset Reported/Identified Relationship to Patient Clinical Status Yes No Known Drug Allergies [id number] Drug Allergy Unknown N/A 06/20/2017 Medications There is no data. Problems Date Dx Coded Attending Type Code Diagnosis Diagnosed By 06/17/2015 MARIIA SIM DO Ot E11.40 TYPE 2 DIABETES MELLITUS WITH DIABETIC N 06/17/[facility] Ot E11.65 TYPE 2 DIABETES MELLITUS WITH HYPERGLYCE [facility]/17/[facility] SH[facility]ON Ot E78.5 HYPERLIPIDEMIA, UNSPECIFIED 06/17/2015 MARIIA SIM DO Ot I10 ESSENTIAL (PRIMARY) HYPERTENSION 06/17/2015 MARIIA SIM DO Ot I25.10 ATHSCL HEART DISEASE OF [place] CORONARY 06/17/2015 [facility] MARIIA SHANNON Ot I49.3 VENTRICULAR [...] Ot R31.2 OTHER MICROSCOPIC HEMATURIA 10/01/2015 [place] AMST, EUGENE Harding Ot N28.1 CYST OF KIDNEY, [...] CELIA MAST, KAREN Perdomo Ot 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 02/09/2016 KAREN YANG MD, Ot Z79.899 OTHER NURSING HOME (CURRENT) DRUG THERAPY 02/20/2016 KAREN YANG MD Ot E11.40 TYPE 2 DIABETES MELLITUS WITH DIABETIC N 02/20/2016 KAREN YANG MD, Ot E78.5 HYPERLIPIDEMIA, UNSPECIFIED 02/20/2016 KAREN YANG MD Ot I70.202 UNSP ATHSCL [place] ARTERIES OF [facility] 02/20/2016 KAREN YANG MD Ot M79.606 PAIN IN LEG, UNSPECIFIED 02/20/2016 KAREN YANG MD, Ot Z79.899 OTHER NURSING HOME (CURRENT) DRUG THERAPY 07/19/2016 KAREN YANG MD, Ot E11.40 TYPE 2 DIABETES MELLITUS WITH DIABETIC N 07/19/2016 KAREN YANG MD, Ot E78.5 HYPERLIPIDEMIA, UNSPECIFIED 07/19/2016 KAREN YANG MD, Ot 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 07/19/2016 KAREN YANG MD, Ot Z79.899 OTHER MEDICAL ECONOMICS CONSULTANT (CURRENT) DRUG THERAPY 06/20/2017 DEFFENBAUGH DO, KAYLA [...] DO Ot I25.10 ATHSCL HEART DISEASE OF [place] CORONARY 06/21/2017 MARIIA SIM DO Ot I50.41 [...] 40.0-44.9, ADULT 06/21/2017 RONEY SHANNONMARIIA Ot Z79.84 MEDICAL ECONOMICS CONSULTANT (CURRENT) USE OF ORAL HYPOGLYC 06/21/2017 RONEY SHANNON, MARIIA Harding Ot Z91.14 PATIENT'S OTHER NONCOMPLIANCE WITH MEDIC 06/22/2017 RONEY SHANNON, MARIIA Harding Ot 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/ 06/22/2017 RONEY SHANNONMARIIA Ot E11.43 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 06/22/2017 RONEY DO, MARIIA Harding Ot E66.9 OBESITY, UNSPECIFIED 06/22/2017 RONEY SHANNONMARIIA Ot E78.5 HYPERLIPIDEMIA, UNSPECIFIED 06/22/2017 RONEY SHNANONMARIIA Ot F41.9 ANXIETY DISORDER, UNSPECIFIED 06/22/2017 RONEY DOMARIIA Ot G47.30 SLEEP APNEA, UNSPECIFIED 06/22/2017 RONEY SHANNONMARIIA Ot I11.0 HYPERTENSIVE HEART DISEASE WITH HEART FA 06/22/2017 RONEY SHANNONMARIIA Ot I25.10 ATHSCL HEART DISEASE OF [place] CORONARY 06/22/2017 RONEY DO, MARIIA Harding Ot [...] 06/22/2017 RONEY DO, MARIIA Harding Ot Z79.84 MEDICAL ECONOMICS CONSULTANT (CURRENT) USE OF ORAL HYPOGLYC 06/22/2017 GELLENDER [...] DOMARIIA Ot I25.10 ATHSCL HEART DISEASE OF [place] CORONARY 06/22/2017 SANDRALENDER DO, MARIIA Harding Ot [...] 06/22/2017 MACHODER DO, MARIIA Harding Ot Z79.84 MEDICAL ECONOMICS CONSULTANT (CURRENT) USE OF ORAL HYPOGLYC 06/22/2017 SANDRALENDER [...] E78.5 HYPERLIPIDEMIA, UNSPECIFIED 06/23/2017 SANDRALENDER DO, MARIIA Haridng Ot F41.9 ANXIETY DISORDER, UNSPECIFIED 06/23/2017 GELLENDER DO, MARIIA Harding Ot G47.30 SLEEP APNEA, UNSPECIFIED 06/23/2017 MACHODER MARIIA Ot I11.0 HYPERTENSIVE HEART DISEASE WITH HEART FA 06/23/2017 MACHODER DOMARIIA Ot I25.10 ATHSCL HEART DISEASE OF [place] CORONARY 06/23/2017 GELLENDER DO, MARIIA Harding Ot [...] 06/23/2017 MACHODER DO, MARIIA Harding Ot Z79.84 MEDICAL ECONOMICS CONSULTANT (CURRENT) USE OF ORAL HYPOGLYC 06/23/2017 GELLENDER [...] Harding Ot I25.10 ATHSCL HEART DISEASE OF [place] CORONARY 06/23/2017 RONEY SHANNON, MARIIA Harding Ot [...] 40.0-44.9, ADULT 06/23/2017 RONEY SHANNONMARIIA Ot Z79.84 NURSING HOME (CURRENT) USE OF ORAL HYPOGLYC 06/23/2017 RONEY [...] Harding Ot I25.10 ATHSCL HEART DISEASE OF [place] CORONARY 06/24/2017 SANDRALENDER DO, MARIIA Harding Ot [...] 06/24/2017 MACHODER DO, MARIIA Harding Ot Z79.84 NURSING HOME (CURRENT) USE OF ORAL HYPOGLYC 06/24/2017 RONEY [...] Harding Ot I25.10 ATHSCL HEART DISEASE OF [place] CORONARY 06/25/2017 RONEY SHANNON, MARIIA Harding Ot [...] Ot R42 DIZZINESS AND GIDDINESS 06/25/2017 [facility] Ot Z68.41 BODY MASS INDEX (BMI) 40.0-44.9, ADULT 06/25/2017 RONEY SHANNONMARIIA Ot Z79.84 MEDICAL ECONOMICS CONSULTANT (CURRENT) USE OF ORAL HYPOGLYC 06/25/2017 [facility] MARIIA Ot Z91.14 PATIENT'S OTHER NONCOMPLIANCE WITH MEDIC 06/26/2017 [facility] MARIIA Harding Ot 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0-44.9, ADULT 06/26/2017 RONEY SHANNONMARIIA Ot Z79.84 MEDICAL ECONOMICS CONSULTANT (CURRENT) USE OF ORAL HYPOGLYC 06/26/2017 RONEY [...] SHANNONMARIIA Ot I25.10 ATHSCL HEART DISEASE OF [place] CORONARY 06/27/2017 RONEY SHANNON, MARIIA Harding Ot [...] 06/27/2017 RONEY SHANNON, MARIIA Harding Ot Z79.84 NURSING HOME (CURRENT) USE OF ORAL HYPOGLYC 06/27/2017 SANDRALENDER [...] SHANNONMARIIA Ot I25.10 ATHSCL HEART DISEASE OF [place] CORONARY 06/27/2017 RONEY SHANNON, MARIIA Harding Ot [...] 40.0-44.9, ADULT 06/27/2017 RONEY SHANNONMARIIA Ot Z79.84 NURSING HOME (CURRENT) USE OF ORAL HYPOGLYC 06/27/2017 RONEY [...] SHANNONMARIIA Ot I25.10 ATHSCL HEART DISEASE OF [place] CORONARY 06/27/2017 RONEY SHANNONMARIIA Ot I50.41 ACUTE [...] ADULT 06/27/2017 MARIIA SIM DO Ot Z79.84 MEDICAL ECONOMICS CONSULTANT (CURRENT) USE OF ORAL HYPOGLYC 06/27/2017 RONEY SHANNON MARIIA Harding Ot Z91.14 PATIENT'S OTHER NONCOMPLIANCE WITH MEDIC Procedures Code Description Performed By Performed On [id number] DILATION OF 1 COR ART WITH DRUG-ELUT INT 06/23/2017 [id number] MEASURE OF CARDIAC SAMPL PRESSURE, L H 06/23/2017 [id number] FLUOROSCOPY OF LEFT HEART USING LOW OSMO [...] measurement by glucometer (mass/volume) 203 mg/dL 70-110 Complete blood count (CBC) with automated white blood cell (WBC) differential - 07/01/17 20:44 Blood leukocytes automated count (number/volume) 10.4 10*3/uL 4.3-11.0 Blood erythrocytes automated count (number/volume) 4.14 10*6/uL 4.35-5.85 Venous blood hemoglobin measurement (mass/volume) 11.2 g/dL 13.3-17.7 Blood hematocrit (volume fraction) 35 % 40-54 Automated erythrocyte mean corpuscular volume 84 [foz_us] 80-99 Automated erythrocyte mean corpuscular hemoglobin (mass per erythrocyte) 27 pg 25-34 Automated erythrocyte mean corpuscular hemoglobin concentration measurement ( mass/volume) 32 g/dL 32-36 Automated erythrocyte distribution width ratio 12.9 % 10.0-14.5 Automated blood platelet count (count/volume) 388 10*3/uL 130-400 Automated blood platelet mean volume measurement 10.2 [foz_us] 7.4-10.4 Automated blood neutrophils/100 leukocytes 73 % 42-75 Automated blood lymphocytes/100 leukocytes 13 % 12-44 Blood monocytes/100 leukocytes 9 % 0-12 Automated blood eosinophils/100 leukocytes 5 % 0-10 Automated blood basophils/100 leukocytes 0 % 0-10 Blood neutrophils automated count (number/volume) 7.5 10*3 1.8-7.8 Blood lymphocytes automated count (number/volume) 1.4 10*3 1.0-4.0 Blood monocytes automated count (number/volume) 0.9 10*3 0.0-1.0 Automated eosinophil count 0.5 10*3/uL 0.0-0.3 Automated blood basophil count (count/volume) 0.0 10*3/uL 0.0-0.1 PT panel in platelet poor plasma by coagulation assay - 07/01/17 20:44 Prothrombin time (PT) in platelet poor plasma by coagulation assay 13.7 s 12.2-14.7 INR in platelet poor plasma or blood by coagulation assay 1.0 0.8-1.4 Activated partial thromboplastin time (aPTT) in platelet poor plasma bycoagulation assay - 07/01/17 20:44 Activated partial thromboplastin time (aPTT) in platelet poor plasma bycoagulation assay 34 s 24-35 Comprehensive metabolic panel - 07/01/17 20:44 Serum or plasma sodium measurement (moles/volume) 141 mmol/L 135-145 Serum or plasma potassium measurement (moles/volume) 4.7 mmol/L 3.6-5.0 Serum or plasma chloride measurement (moles/volume) 100 mmol/L 98-107 Carbon dioxide 28 mmol/L 21-32 Serum or plasma anion gap determination (moles/volume) 13 mmol/L 5-14 Serum or plasma urea nitrogen measurement (mass/volume) 48 mg/dL 7-18 Serum or plasma creatinine measurement (mass/volume) 1.86 mg/dL 0.60-1.30 Serum or plasma urea nitrogen/creatinine mass ratio 26 NRG Serum or plasma creatinine measurement with calculation of estimated glomerular filtration rate 38 NRG Serum or plasma glucose measurement (mass/volume) 150 mg/dL 70-105 Serum or plasma calcium measurement (mass/volume) 9.3 mg/dL 8.5-10.1 Serum or plasma total bilirubin measurement (mass/volume) 0.6 mg/dL 0.1-1.0 Serum or plasma alkaline phosphatase measurement (enzymatic activity/volume) 115 U/L 40-136 Serum or plasma aspartate aminotransferase measurement (enzymatic activity/ volume) 17 U/L 5-34 Serum or plasma alanine aminotransferase measurement (enzymatic activity/volume ) 24 U/L 0-55 Serum or plasma protein measurement (mass/volume) 6.7 g/dL 6.4-8.2 Serum or plasma albumin measurement (mass/volume) 3.7 g/dL 3.2-4.5 Magnesium - 07/01/17 20:44 Magnesium 1.8 mg/dL 1.8-2.4 Serum or plasma troponin i.cardiac measurement (mass/volume) - 07/01/17 20:44 Serum or plasma troponin i.cardiac measurement (mass/volume) 0.39 ng /mL <0.30 Myoglobin, serum - 07/01/17 20:44 Myoglobin, serum 185.7 ng/mL 10.0-92.0 Lipase - 07/01/17 20:44 Lipase 8 U/L 8-78 Serum or plasma lithium measurement (moles/volume) - 07/01/17 20:44 BNP level 455.3 pg/mL <100.0 Encounters ACCT No. Visit Date/Time Discharge Status Pt. Type Provider Facility Loc./Unit Complaint [id number] 06/20/2017 12:30:00 06/27/2017 12:21:00 DIS Outpatient MARIIA SIM DO [facility] 4TH ACUTE RECOMPENSATED H /F [id number] 02/09/2016 06:42:00 02/09/2016 14:10:00 DIS Outpatient KAREN YANG MD [facility] CATH ABN. AILYN, DM, CLAUDICATION PAIN [id number] 11/05/2015 16:05:00 11/05/2015 23:59:59 CLS Outpatient KAYLA ISBELL DO [facility] LAB DIARRHEA, UNSPECIFIED [id number] 10/10/2015 07:23:00 11/05/2015 16:03:00 DIS Outpatient MARIIA SIM DO [facility] LAB DIARRHEA [id number] 09/30/2015 13:23:00 09/30/2015 23:59:59 CLS Outpatient EUGENE GOFF MD [facility] RAD [id number] 09/26/2015 06:23:00 09/26/2015 09:35:00 DIS Outpatient EUGENE GOFF MD [facility] SDC [id number] 09/24/2015 13:25:00 09/24/2015 23:59:59 CLS Outpatient EUGENE GOFF MD [facility] RAD [id number] 09/24/2015 05:36:00 09/24/2015 23:59:59 CLS Outpatient EUGENE GOFF MD [facility] PREOP [id number] 09/03/2015 20:26:00 09/04/2015 06:17:00 DIS Outpatient CHRISTINA MOTA [employer] [facility] SLEEP [id number] 06/15/2015 21:30:00 06/17/2015 14:50:00 DIS Inpatient MARIIA SIM DO [facility] CSD [id number] 07/01/2017 21:55:00 ACT Inpatient DAVID GILL MD [facility] ICU CHEST PAIN,HIGH TROPONIN
[2017-07-01 23:30] VITALS: BP 150/86
[2017-07-01] MEDS ORDERED: NITROGLYCERIN 0.4 MG SL TABS BTL 25'S SL ONE (23:57)
[2017-07-02] VITALS (19 sets, daily range): BP systolic 102–155; BP diastolic 66–91
[2017-07-02] MEDS: NITROGLYCERIN 0.4 MG SL TABS BTL 25'S SL PRN ×3 (00:05→00:15)
[2017-07-02] MEDS ORDERED: NS IV 1000 ML 1,000 ML ONE (00:14)
[2017-07-02] MEDS ORDERED: morphine INJ 4 MG/ML 1 ML (VIAL/SYRINGE) ONE (00:25)
[2017-07-02] MEDS: morphine INJ 4 MG/ML 1 ML (VIAL/SYRINGE) IV PRN ×3 (00:30→05:20)
[2017-07-02] MEDS ORDERED: CATHETER FLUSH 10 ML SYR IV PRN (01:15)
[2017-07-02] MEDS: NS IV 1000 ML 1,000 ML IV SCH ×3 (01:15→17:04)
[2017-07-02 04:31] LABS: CHOLESTEROL 149 MG/DL (< 200); HDL CHOLESTEROL 27 MG/DL (40-60); TRIGLYCERIDES 112 MG/DL (<150); VLDL CHOLESTEROL 22 MG/DL (5-40)
[2017-07-02] MEDS: CATHETER FLUSH 10 ML SYR IV SCH ×3 (06:00→22:00)
--- NOTE | 2017-07-02 07:51 | History & Physical-Hospitalist ---
HPI History of Present Illness: HPI/Chief Complaint this is a 52-year-old white male with a history of a stent placed in the LAD approximately 9 days ago. He also had about 40 pounds of weight secondary to congestive heart failure. He has diuresed that off and was feeling better when he was driving home from work yesterday and he had a sudden onset of right sided chest discomfort. This seems to be worse when he moves or takes a deep breath. Oxygen saturations have been within normal limits. He has been requiring morphine frequently to control the pain. He's had no rash or any other symptoms associated with this. He thought it started more to the lateral side of his right chest wall and then is migrated to the midclavicular line. Source: patient, old records Exam Limitations: no limitations Date Seen 07/02/17 Time Seen by Provider: 08:15 Attending Physician Angelica Gill MD PCP Yang Younger DO Referring Physician Date of Admission Jul 01, 2017 at 9:55 pm Home Medications & Allergies Home Medications Reviewed patient Home Medication Reconciliation Form Allergies Allergies Coded Allergies No Known Drug Allergies (Unverified06/20/17) Past Uanacxu-Gfoxhq-Lbllqr Hx Patient Social History Marrital Status: Employed/Student: employed Alcohol Use: Denies Use Recreational Drug Use: No Smoking Status: Never a Smoker 2nd Hand Smoke Exposure: No Physical Abuse Screen: No Sexual Abuse: No Recent Foreign Travel: No Contact w/other who traveled: No Recent Hopitalizations: Yes Recent Infectious Disease Expo: No Immunizations Up To Date Tetanus Booster (TDap): Unknown Date of Pneumonia Vaccine: Jun 16, 2015 Date of Influenza Vaccine: Jun 20, 2017 Seasonal Allergies Seasonal Allergies: No Surgeries Yes (NASAL POLYPS REMOVED CHILD, CARDIAC CATH-NO INTERVENTION) Cardiac, Coronary Stent, Nose Respiratory Yes Sleep Apnea Currently Using CPAP: Yes Currently Using BIPAP: No Cardiovascular Yes (PAD) Cardiomyopathy, Coronary Artery Disease, Hypertension, Irregular Heartbeat, Peripheral Vascular Neurological Yes (NEUROPATHY IN LEGS/ FEET) Neuropathy Reproductive System Hx Reproductive Disorders: Yes (E.D.) Sexually Transmitted Disease: No HIV/AIDS: No Genitourinary No Gastrointestinal Yes Chronic Diarrhea Musculoskeletal No Endocrine History of Endocrine Disorders: Yes Endocrine Disorders: Diabetes, Non-Insulin dep HEENT History of HEENT Disorders: No Cancer No Psychosocial History of Psychiatric Problem: Yes Behavioral Health Disorders: Anxiety Integumentary History of Skin or Integumenta: No Blood Transfusions History of Blood Disorders: No Adverse Reaction to a Blood Tr: No Reviewed Nursing Assessment Reviewed/Agree w Nursing PMH: Yes Family Medical History Significant Family History: No Pertinent Family Hx Family Hx: Arthritis G8 BROTHER (knee replacement) Cardiovascular disease 19 FATHER (chf) Deafness or hearing loss 19 MOTHER (vertigo) Diabetes mellitus 19 MOTHER Prostate cancer 19 FATHER Review of Systems Constitutional: see HPI, weakness EENTM: no symptoms reported Respiratory: dyspnea on exertion Cardiovascular: chest pain (right-sided) Gastrointestinal: diarrhea Genitourinary: hematuria (in the past) Musculoskeletal: muscle pain, muscle cramps Skin: no symptoms reported Psychiatric/Neurological: Anxiety Physical Exam Physical Exam Vital Signs Vital Sign - Last 12Hours 07/01/17 07/01/17 20:40 20:44 Temp 98.8 Pulse 85 Resp 20 B/P (MAP) 171/98 (122) Pulse Ox 94 O2 Delivery Room Air O2 Flow Rate 1.00 FiO2 100 Capillary Refill : Less Than 3 Seconds General Appearance: Anxious, Mild Distress HEENT: Normal ENT Inspection Neck: Normal Inspection, Supple Respiratory: Lungs Clear, Other (tender right chest wall and mid clavicular line) Cardiovascular: Regular Rate, Rhythm, No Gallop, No Murmur Gastrointestinal: No Organomegaly, No Pulsatile Mass, Non Tender, Soft Rectal: Deferred Extremity: No Pedal Edema Neurologic/Psychiatric: Alert, Oriented x3 Skin: Normal Color, Warm/Dry Results Results/Procedures Lab Laboratory Tests 07/01/17 20:44 07/03/17 08:01 Assessment/Plan Admission Diagnosis 1. Right-sided chest pain most consistent with either a neuropathy or musculoskeletal etiology however the patient does have an elevated troponin BNP and myoglobin. Because of this cardiology will be consulted. 2. Renal insufficiency-GFR has dropped by half in the last month-we will hydrate gently; he does have 4+ proteinuria and very probably has nephrotic syndrome contributing to his edema; nephrology consult in the near future 3. type II diabetes with a history of noncompliance-we'll start Accu-Cheks 4. Congestive heart failure both diastolic and systolic-current BNP is elevated however the patient does have the renal insufficiency 5. Coronary artery disease with a history of a recent stent in the LAD, now with chest discomfort and an elevated troponin-cardiology to address-in addition I'll add a statin 6. peripheral vascular disease 7. Obstructive sleep apnea 8. hypertension 9. Peripheral vascular disease-again will begin a statin 10.history of noncompliance-patient currently says he has been taking all of his medications as instructed Clinical Quality Measures AMI/AHF: ASA po Prior to arrival: Yes DVT/VTE Risk/Contraindication: Risk Factor Score Per Nursin RFS Level Per Nursing on Admit: 4+=Very High ANGELICA GILL MD Jul 02, 2017 7:51 am
[2017-07-02] MEDS ORDERED: CLOPIDOGREL 75 MG (PLAVIX) TABLET PO SCH (09:00)
[2017-07-02] MEDS ORDERED: ASPIRIN E.C. 325 MG (ECOTRIN) TABLET PO SCH (09:00)
[2017-07-02] MEDS ORDERED: meTOprolol TARTRATE 50 MG (LOPRESSOR) TAB PO SCH (09:00)
[2017-07-02] MEDS: GLIMEPIRIDE 4 MG (AMARYL) TAB PO SCH (09:17)
[2017-07-02] MEDS: GABAPENTIN 600 MG (NEURONTIN) TAB PO SCH ×2 (09:17→21:41)
[2017-07-02] MEDS: LIDOCAINE (LIDODERM) 5% PATCH TOP SCH (09:17)
[2017-07-02] MEDS: meTOprolol TARTRATE 50 MG (LOPRESSOR) TAB PO SCH ×2 (09:17→21:41)
[2017-07-02] MEDS: ASPIRIN E.C. 81 MG (ECOTRIN) TAB PO SCH (09:17)
[2017-07-02] MEDS: LOSARTAN 100 MG (COZAAR) TABLET PO SCH (09:17)
[2017-07-02] MEDS: CLOPIDOGREL 75 MG (PLAVIX) TABLET PO SCH (09:18)
[2017-07-02 11:22] LABS: BILIRUBIN,URINE NEGATIVE (NEGATIVE); CLARITY,URINE CLEAR; COLOR,URINE YELLOW; GLUCOSE, URINE (UA) NEGATIVE (NEGATIVE); KETONES,URINE NEGATIVE (NEGATIVE); LEUKOCYTE ESTERASE ,URINE NEGATIVE (NEGATIVE); NITRITE,URINE NEGATIVE (NEGATIVE); PH,URINE 6.5 (5-9); PROTEIN,URINE 3+ (NEGATIVE); UROBILINOGEN,URINE NORMAL (NORMAL)
[2017-07-02 11:30] LABS: BACTERIA,URINE NEGATIVE /HPF; SQUAMOUS EPITHELIAL CELL,UR RARE /HPF
[2017-07-02] MEDS: GABAPENTIN 300 MG (NEURONTIN) CAP PO SCH (11:40)
--- NOTE | 2017-07-02 14:09 | Consultation-Cardiology ---
HPI-Cardiology Cardiology Consultation: Date of Consultation 07/02/17 Time Seen by Provider: 14:00 Date of Admission 07/01/17 Attending Physician Angelica Bermeo MD Admitting Physician Yang Younger DO Consulting Physician LORAINE POST MD, MA, FACP, FACC, FSCAI, CCDS HPI: Chief Complaint: Chest discomfort 52 yo man with R lower and anterior chest wall pain that is sharp, worse with motion at torso, non-radiating, w/o any relieving factors, never experienced before, present since the afternoon of 07/01/17, continuous, mild to severe Has chronic exertional shortness of breath No palp or syncope or significant leg swelling Some gen malaise and tiredness Review of Systems-Cardiology Review of Systems Constitutional: malaise, tiredness Eyes: No vision change Ears/Nose/Throat: No ear discharge, No nasal drainage, No recent hearing loss Respiratory: As described under HPI Cardiovascular: As described under HPI Gastrointestinal: No constipation, No diarrhea, No nausea, No vomiting Genitourinary: No dysuria, No hematuria Musculoskeletal: back pain (chronic) Skin: No rash, No ulcerations Psychiatric/Neurological: No seizure, No focal weakness, No syncope Hematologic: No bleeding abnormalities All Other Systems Reviewed Negative Unless Noted: Yes NNP-Niepbz-Vhhiyx Hx Patient Social History Marrital Status: Employed/Student: employed Alcohol Use: Denies Use Recreational Drug Use: No Smoking Status: Never a Smoker 2nd Hand Smoke Exposure: No Recent Foreign Travel: No Recent Infectious Disease Expo: No Hospitalization with Isolation: Denies Physical Abuse Screen: No Sexual Abuse: No Immunizations Up To Date Tetanus Booster (TDap): Unknown Date of Pneumonia Vaccine: Jun 16, 2015 Date of Influenza Vaccine: Jun 20, 2017 Past Medical History PMH As described under Assessment. Family Medical History Family History: Arthritis G8 BROTHER (knee replacement) Cardiovascular disease 19 FATHER (chf) Deafness or hearing loss 19 MOTHER (vertigo) Diabetes mellitus 19 MOTHER Prostate cancer 19 FATHER Allergies and Home Medications Allergies Coded Allergies: No Known Drug Allergies (Unverified , 06/20/17) Home Medications Aspirin 81 Mg Tablet.dr, 81 MG PO DAILY, #100 Ref 2 Prescribed by: KAREN PEREZ on 06/27/17 0928 Clopidogrel Bisulfate 75 Mg Tablet, 75 MG PO DAILY, #30 Ref 6 Prescribed by: KAREN PEREZ on 06/27/17927 Furosemide 10 Mg/1 Ml Vial, 40 MG IVP DAILY@, #30 Ref 2 Prescribed by: KAREN PEREZ on 06/27/1728 Gabapentin 300 Mg Capsule, 600 MG PO 0900,2100, (Reported) TAKES 2 (300MG) CAPSULES Gabapentin 300 Mg Capsule, 300 MG PO 1200, (Reported) Glimepiride 4 Mg Tablet, 4 MG PO DAILY for 30 Days, #30 Prescribed by: MARTINEZ SOW on 06/27/17 1200 Losartan Potassium 100 Mg Tablet, 100 MG PO DAILY, #30 Prescribed by: KAREN PEREZ on 06/27/1728 Metoprolol Tartrate 50 Mg Tablet, 50 MG PO BID, #60 Ref 4 Prescribed by: KAREN PEREZ on 06/27/17927 Physical Exam-Cardiology Physical Exam Vital Signs/I&O Vital Sign - Last 12Hours 07/02/17 07/02/17 07/02/17 07/02/17 03:00 04:00 04:00 07:00 Pulse 85 86 94 Resp 10 10 B/P (MAP) 102/73 (83) 107/66 (80) Pulse Ox 96 93 95 O2 Delivery Nasal Cannula Nasal Cannula Nasal Cannula O2 Flow Rate 2.00 2.00 2.00 07/02/17 07/02/17 07/02/17 07/02/17 08:00 08:00 09:00 12:00 Temp 98.2 Pulse 102 Resp 20 B/P (MAP) 151/86 (107) Pulse Ox 93 96 93 O2 Delivery Nasal Cannula Nasal Cannula Nasal Cannula Nasal Cannula O2 Flow Rate 2.00 2.00 2.00 2.00 07/02/17 07/02/17 12:00 13:00 Pulse 94 87 Resp 11 B/P (MAP) 136/86 (103) Pulse Ox 93 O2 Delivery Nasal Cannula O2 Flow Rate 2.00 Capillary Refill : Less Than 3 Seconds Constitutional: AAO x 3, well-developed, well-nourished HEENT: PERRL, hearing is well preserved, xanthelasmas are seen Neck: carotid pulses are 2 + bilaterally, with good upstrokes Respiratory: No accessory muscle use, other (Fair to good air entry, but diminished at the bases) Cardiovascular: regular rate-rhythm, S1 and S2, systolic murmur (soft KYLE at card base) Gastrointestinal: No tender, soft, No guarding, No rebound, audible bowel sounds Extremities: No clubbing, No cyanosis, No significant edema Neurologic/Psychiatric: grossly intact, power is 5/5 both on sides Skin: No rash on exposed areas, No ulcerations on exposed areas Data Review Labs Laboratory Tests 07/01/17 20:44: White Blood Count 10.4, Red Blood Count 4.14L, Hemoglobin 11.2#L, Hematocrit 35L , Mean Corpuscular Volume 84, Mean Corpuscular Hemoglobin 27, Mean Corpuscular Hemoglobin Concent 32, Red Cell Distribution Width 12.9, Platelet Count 388, Mean Platelet Volume 10.2, Neutrophils (%) (Auto) 73, Lymphocytes (%) (Auto) 13 , Monocytes (%) (Auto) 9, Eosinophils (%) (Auto) 5, Basophils (%) (Auto) 0, Neutrophils # (Auto) 7.5, Lymphocytes # (Auto) 1.4, Monocytes # (Auto) 0.9, Eosinophils # (Auto) 0.5H, Basophils # (Auto) 0.0, Prothrombin Time 13.7, INR Comment 1.0, Activated Partial Thromboplast Time 34, Sodium Level 141, Potassium Level 4.7, Chloride Level 100, Carbon Dioxide Level 28, Anion Gap 13, Blood Urea Nitrogen 48H, Creatinine 1.86H, Estimat Glomerular Filtration Rate 38 , BUN/Creatinine Ratio 26, Glucose Level 150H, Calcium Level 9.3, Magnesium Level 1.8, Total Bilirubin 0.6, Aspartate Amino Transf (AST/SGOT) 17, Alanine Aminotransferase (ALT/SGPT) 24, Alkaline Phosphatase 115, Myoglobin 185.7H, Troponin I 0.39*H, B-Type Natriuretic Peptide 455.3H, Total Protein 6.7, Albumin 3.7, Lipase 8 07/02/17 03:14: Troponin I 0.31*H, Erythrocyte Sedimentation Rate 39H, D-Dimer 1.37H, Triglycerides Level 112, Cholesterol Level 149, LDL Cholesterol Direct 104, VLDL Cholesterol 22, HDL Cholesterol 27L 07/02/17 11:10: Urine Color YELLOW, Urine Clarity CLEAR, Urine pH 6.5, Urine Specific [place] 1.015L, Urine Protein 3+H, Urine Glucose (UA) NEGATIVE, Urine Ketones NEGATIVE, Urine Nitrite NEGATIVE, Urine Bilirubin NEGATIVE, Urine Urobilinogen NORMAL, Urine Leukocyte Esterase NEGATIVE, Urine RBC (Auto) 3+H, Urine RBC 2-5H, Urine WBC NONE, Urine Squamous Epithelial Cells RARE, Urine Crystals NONE, Urine Bacteria NEGATIVE, Urine Casts NONE, Urine Mucus NEGATIVE, Urine Culture Indicated NO 07/02/17 11:33: Glucometer 152H Laboratory Tests 07/01/17 20:44 A/P-Cardiology Assessment/Admission Diagnosis Chest discomfort, nonspecific, w/o any evidence of ACS Minimal troponin elevation, probably due to PCI of 06/23/17 and/or acute renal failure Acute renal failure, possibly due to contrast nephropathy Chronic systolic and diastolic CHF Coronary artery disease. Last cardiac cath done on 06/23/17 (Dr Perez): Severe stenosis in the mid LAD treated with MARILIA (Alpine Xience 3.018 mm); proximal to the stent there is iqvy-ly-eumugtyk disease nonobstructive disease; moderate disease at the distal circumflex artery; otherwise nonobstructive disease; elevated left ventricular end-diastolic pressure Last echo on 07/02/17: LVEF 50-55%, grade I lu dysfunction, PASP approx 25 mmHg Mild to moderate peripheral arterial disease per angiogram done in 2015. Continue to monitor Hypertension, History of frequent PVCs Mild bilateral carotid stenosis nonobstructive disease. Mild carotid arterial disease per carotid duplex and CTA neck, followed by Dr Perez Diabetes mellitus II Diabetic neuropathy and nephropathy Hyperlipidemia, treated with statin Erectile dysfunction- likely related to DM and neuropathy, in addition to peripheral arterial disease Obesity, BMI 37 History of noncompliance with medications Discussion and Recomendations * iv fluids * Hold diuretics for now * Continue DAPT * Continue statin * Continue antihypertensive therapy * Monitor labs * Increase ambulation * I spoke with him and discussed his CV issues and our management plan with him in detail Clinical Quality Measures AMI/AHF: ASA po Prior to arrival: Yes DVT/VTE Risk/Contraindication: Risk Factor Score Per Nursin RFS Level Per Nursing on Admit: 4+=Very High LORAINE POST MD FACP FAC CCDS Jul 02, 2017 14:09
[2017-07-02] MEDS: ATORVASTATIN 40 MG (LIPITOR) TABLET PO SCH (21:40)
[2017-07-02] MEDS: LIDOCAINE PATCH REMOVAL TP SCH (21:41)
[2017-07-03] VITALS: BP 151/89
[2017-07-03] MEDS: NS IV 1000 ML 1,000 ML IV SCH (01:40)
[2017-07-03 04:00] VITALS: BP_SYST 140; BP_SYST 165; BP_DIAS 87; BP_DIAS 88
[2017-07-03] MEDS: CATHETER FLUSH 10 ML SYR IV SCH ×3 (06:00→22:05)
[2017-07-03 08:00] VITALS: BP 117/81
[2017-07-03 08:08] LABS: HEMOGLOBIN 9.5 G/DL (13.3-17.7); RED BLOOD COUNT 3.53 10^6/uL (4.35-5.85); RED CELL DISTRIBUTION WIDTH 13.1 % (10.0-14.5); WHITE BLOOD COUNT 8.8 10^3/uL (4.3-11.0)
[2017-07-03 08:28] LABS: CALCIUM 8.4 MG/DL (8.5-10.1); CREATININE SERUM 1.45 MG/DL (0.60-1.30); POTASSIUM 4.8 MMOL/L (3.6-5.0)
[2017-07-03] MEDS: LOSARTAN 100 MG (COZAAR) TABLET PO SCH (08:59)
[2017-07-03] MEDS: meTOprolol TARTRATE 50 MG (LOPRESSOR) TAB PO SCH ×2 (08:59→21:56)
[2017-07-03] MEDS: ASPIRIN E.C. 81 MG (ECOTRIN) TAB PO SCH (08:59)
[2017-07-03] MEDS: GLIMEPIRIDE 4 MG (AMARYL) TAB PO SCH (08:59)
[2017-07-03] MEDS: CLOPIDOGREL 75 MG (PLAVIX) TABLET PO SCH (08:59)
[2017-07-03] MEDS: GABAPENTIN 600 MG (NEURONTIN) TAB PO SCH ×2 (09:00→21:56)
--- NOTE | 2017-07-03 10:46 | Progress Note-Hospitalist ---
Subjective HPI/CC On Admission Date Seen by Provider: Jul 03, 2017 Time Seen by Provider: 10:00 this is a 52-year-old white male with a history of a stent placed in the LAD approximately 9 days ago. He also had about 40 pounds of weight secondary to congestive heart failure. He has diuresed that off and was feeling better when he was driving home from work yesterday and he had a sudden onset of right sided chest discomfort. This seems to be worse when he moves or takes a deep breath. Oxygen saturations have been within normal limits. He has been requiring morphine frequently to control the pain. He's had no rash or any other symptoms associated with this. He thought it started more to the lateral side of his right chest wall and then is migrated to the midclavicular line. Subjective/Events-last exam the patient's right-sided chest pain is better. Says his cough is a little bit better. He did have another temperature of over 100 this morning. He is wondering if he is being treated for his respiratory tract infection. Now that he is started to run a febrile probably start an antibiotic. In addition I discussed with him the fact that he has high protein in his urine and there is concern for his kidney function. I discussed that we'll need a 24-hour urine collection and we'll get that if we can before he needs to be discharged in the morning. Nursing staff notes that he's been somewhat dependent with not wanting to take care of himself much. Review of Systems Pulmonary: Dyspnea, Cough Cardiovascular: Chest Pain (improved) Neurological: Weakness Objective Exam Vital Signs Vital Sign - Last 12Hours 07/01/17 07/01/17 20:40 20:44 Temp 98.8 Pulse 85 Resp 20 B/P (MAP) 171/98 (122) Pulse Ox 94 O2 Delivery Room Air O2 Flow Rate 1.00 FiO2 100 Capillary Refill : Less Than 3 Seconds General Appearance: Obese HEENT: Normal ENT Inspection Respiratory: Lungs Clear, Normal Breath Sounds, No Accessory Muscle Use, No Respiratory Distress Cardiovascular: Regular Rate, Rhythm, No Gallop Gastrointestinal: No Organomegaly, Non Tender, Soft Rectal: Deferred Extremity: Non Tender, No Calf Tenderness, No Pedal Edema Neurologic/Psychiatric: Alert, Oriented x3, No Motor/Sensory Deficits, Depressed Affect Skin: Pallor Results/Procedures Lab Laboratory Tests 07/03/17 08:01 Assessment/Plan Assessment and Plan Assess & Plan/Chief Complaint 1. Right-sided chest pain most consistent with either a neuropathy or musculoskeletal etiology however the patient does have an elevated troponin BNP and myoglobin. cardiology felt that this was non-cardiac. In fact the right- sided chest pain has resolved and may be more related to an upper respiratory tract infection. Consideration of the fact that his kidney function has declined no further cardiac intervention will be pursued especially in light of the fact that this is most likely musculoskeletal 2. Renal insufficiency-GFR has dropped by half in the last month-we will hydrate gently; he does have 4+ proteinuria and very probably has nephrotic syndrome contributing to his edema; we'll obtain a 24-hour urine collection for total protein and creatinine clearance. The patient will need a nephrology consult in the future. 3. type II diabetes with a history of noncompliance-we'll start Accu-Cheks 4. Congestive heart failure both diastolic and systolic-current BNP is elevated however the patient does have the renal insufficiency 5. Coronary artery disease with a history of a recent stent in the LAD, now with chest discomfort and an elevated troponin-cardiology to address-in addition I'll add a statin 6. peripheral vascular disease 7. Obstructive sleep apnea 8. hypertension 9. Peripheral vascular disease-again will begin a statin 10.history of noncompliance-patient currently says he has been taking all of his medications as instructed 11. Upper respiratory tract infection will began second-generation cephalosporin DAVID GILL MD Jul 03, 2017 10:46 am
--- NOTE | 2017-07-03 11:31 | Diagnostic Imaging Report ---
INDICATION: Cough and fever. Comparison made with prior examination from 07/01/2017. FINDINGS: There is cardiomegaly. There is some bibasilar atelectasis and/or pneumonitis. There is no pleural effusion, pneumothorax. The mediastinum is unremarkable. IMPRESSION: Cardiomegaly with some patchy bibasilar infiltrates and/or some atelectasis and/or pneumonitis. Dictated by: Dictated on workstation # [id number]
[2017-07-03] MEDS: LIDOCAINE (LIDODERM) 5% PATCH TOP SCH (11:36)
[2017-07-03] MEDS: GABAPENTIN 300 MG (NEURONTIN) CAP PO SCH (11:36)
[2017-07-03 12:00] VITALS: BP 155/82
[2017-07-03] MEDS ORDERED: ASPI-983 PO (13:10)
[2017-07-03] MEDS ORDERED: GLIM2TAB PO (13:10)
[2017-07-03] MEDS ORDERED: CLOP75TA28 PO (13:10)
[2017-07-03] MEDS ORDERED: LOSA100T28 PO (13:10)
[2017-07-03] MEDS ORDERED: FURO40TA4 PO (13:10)
[2017-07-03] MEDS ORDERED: METO50TA15 PO (13:10)
--- NOTE | 2017-07-03 13:38 | Progress Note-Cardiology ---
Cardiology SOAP Progress Note Subjective: Feels somewhat better than yesterday Still has R lower pleuritic chest pain Denies palp or syncope or swelling Objective: I&O/Vital Signs Vital Sign - Last 12Hours 07/03/17 07/03/17 07/03/17 07/03/17 04:00 04:00 04:00 07:00 Temp 99.0 Pulse 87 94 107 Resp 12 17 B/P (MAP) 140/87 (104) 165/88 (113) Pulse Ox 96 96 96 O2 Delivery Nasal Cannula Nasal Cannula Nasal Cannula O2 Flow Rate 2.00 2.00 2.00 07/03/17 07/03/17 07/03/17 07/03/17 08:00 08:00 08:00 09:21 Temp 100.8 Pulse 99 Resp 14 B/P (MAP) 117/81 (93) Pulse Ox 96 92 O2 Delivery Nasal Cannula Nasal Cannula Nasal Cannula Nasal Cannula O2 Flow Rate 2.00 2.00 2.00 2.00 07/03/17 07/03/17 11:15 12:00 Temp 98.8 99.6 Pulse 86 Resp 20 B/P (MAP) 155/82 (106) Pulse Ox 90 O2 Delivery Nasal Cannula O2 Flow Rate 2.00 Intake and Output 07/03/17 00:00 Intake Total 1473 ml Output Total 1905 ml Balance -432 ml Weight (Pounds): 263 Weight (Ounces): 1.6 Weight (Calculated Kilograms): 119.073774 Constitutional: AAO x 3, well-developed, well-nourished Respiratory: No accessory muscle use, other (Fair to good air entry, but diminished at the bases) Cardiovascular: regular rate-rhythm, S1 and S2, systolic murmur (soft KYLE at card base) Gastrointestional: No tender, soft, No guarding, No rebound, audible bowel sounds Extremities: No clubbing, No cyanosis, No significant edema Neurologic/Psychiatric: grossly intact, power is 5/5 both on sides Skin: No rash on exposed areas, No ulcerations on exposed areas Results/Procedures: Labs Laboratory Tests 07/02/17 16:33: Glucometer 119H 07/02/17 21:40: Glucometer 136H 07/03/17 06:53: Glucometer 103 07/03/17 08:01: White Blood Count 8.8, Red Blood Count 3.53L, Hemoglobin 9.5L, Hematocrit 31L, Mean Corpuscular Volume 86, Mean Corpuscular Hemoglobin 27, Mean Corpuscular Hemoglobin Concent 31L, Red Cell Distribution Width 13.1, Platelet Count 317, Mean Platelet Volume 10.0, Sodium Level 141, Potassium Level 4.8, Chloride Level 104, Carbon Dioxide Level 26, Anion Gap 11, Blood Urea Nitrogen 40H, Creatinine 1.45H, Estimat Glomerular Filtration Rate 51, BUN/Creatinine Ratio 28 , Glucose Level 94, Calcium Level 8.4L 07/03/17 11:39: Glucometer 121H Laboratory Tests 07/01/17 20:44 07/03/17 08:01 A/P: Assessment: Chest discomfort, nonspecific, w/o any evidence of ACS Minimal troponin elevation, probably due to PCI of 06/23/17 and/or acute renal failure Acute renal failure, possibly due to contrast nephropathy Anemia of undetermined etiology Chronic systolic and diastolic CHF w/o any clinical evidence of decompensation at this time Coronary artery disease. Last cardiac cath done on 06/23/17 (Dr Perez): Severe stenosis in the mid LAD treated with MARILIA (Alpine Xience 3.018 mm); proximal to the stent there is [id number] disease nonobstructive disease; moderate disease at the distal circumflex artery; otherwise nonobstructive disease; elevated left ventricular end-diastolic pressure Last echo on 07/02/17: LVEF 50-55%, grade I lu dysfunction, PASP approx 25 mmHg Mild to moderate peripheral arterial disease per angiogram done in 2015. Continue to monitor Hypertension, History of frequent PVCs Mild bilateral carotid stenosis nonobstructive disease. Mild carotid arterial disease per carotid duplex and CTA neck, followed by Dr Perez Diabetes mellitus II Diabetic neuropathy and nephropathy Hyperlipidemia, treated with statin Erectile dysfunction- likely related to DM and neuropathy, in addition to peripheral arterial disease Obesity, BMI 37 History of noncompliance with medications Plan: * Continue to hold diuretics for now * Continue DAPT * Continue statin * Continue antihypertensive therapy * Monitor labs * Increase ambulation * I discussed his case with Dr Bermeo on the phone, in detail, yesterday * Dr Bermeo is evaluating his anemia Clinical Quality Measures AMI/AHF: ASA po Prior to arrival: Yes LORAINE POST MD FACP FACC CCDS Jul 03, 2017 13:38
[2017-07-03] MEDS: ONDANSETRON 4 MG/2 ML (SDV) Z0FRAN IVP PRN ×2 (15:06→22:04)
[2017-07-03 16:09] VITALS: BP 151/76
[2017-07-03] MEDS ORDERED: ANTACID SUSP 30 ML UDC (MYLANTA) PO PRN (18:30)
[2017-07-03] MEDS: ACETAMINOPHEN 325 MG TABLET/CAPLET (TYLENOL) PO PRN (18:38)
[2017-07-03 19:34] VITALS: BP 173/86
[2017-07-03] MEDS: ATORVASTATIN 40 MG (LIPITOR) TABLET PO SCH (21:56)
[2017-07-03] MEDS: CEFDINIR 300 MG (OMNICEF) CAP PO SCH (21:56)
[2017-07-04] VITALS: BP 118/53
[2017-07-04 03:47] VITALS: BP 136/67
[2017-07-04] MEDS: ONDANSETRON 4 MG/2 ML (SDV) Z0FRAN IVP PRN ×3 (06:10→17:42)
[2017-07-04] MEDS: CATHETER FLUSH 10 ML SYR IV SCH ×3 (06:11→21:15)
[2017-07-04 06:45] LABS: HEMOGLOBIN 9.2 G/DL (13.3-17.7); MEAN PLATELET VOLUME 10.9 FL (7.4-10.4); RED BLOOD COUNT 3.4 10^6/uL (4.35-5.85); WHITE BLOOD COUNT 7.5 10^3/uL (4.3-11.0)
[2017-07-04 07:17] LABS: CALCIUM 8.6 MG/DL (8.5-10.1); CREATININE SERUM 1.7 MG/DL (0.60-1.30); POTASSIUM 4.5 MMOL/L (3.6-5.0)
[2017-07-04 07:40] VITALS: BP 152/84
--- NOTE | 2017-07-04 07:46 | Progress Note (SOAP) ---
Subjective Time Seen by Provider: 07:45 Subjective/Events-last exam patient feeling better today and wants to go home. Chest pain resolved. Chest x-ray atelectasis versus pneumonitis. Has renal insufficiency. Anemia. Diabetes. Diabetic neuropathy Objective Exam Vital Signs Date Time Temp Pulse Resp B/P (MAP) Pulse Ox O2 Delivery O2 Flow Rate FiO2 07/04/17 07:40 98.9 82 22 152/84 (106) 97 Nasal Cannula 2.00 07/04/17 03:47 98.6 64 18 136/67 (90) 97 Nasal Cannula 2.00 07/04/17 01:00 80 07/04/17 00:00 98.4 86 16 118/53 (74) 95 Nasal Cannula 2.00 07/03/17 19:34 99.6 107 18 173/86 (115) 90 Nasal Cannula 2.00 07/03/17 19:00 102 07/03/17 16:09 100.4 94 14 151/76 (101) 94 Nasal Cannula 2.00 07/03/17 13:00 91 07/03/17 12:00 99.6 86 20 155/82 (106) 90 Nasal Cannula 2.00 07/03/17 11:15 98.8 07/03/17 09:21 Nasal Cannula 2.00 07/03/17 08:00 100.8 99 14 117/81 (93) 92 Nasal Cannula 2.00 07/03/17 08:00 Nasal Cannula 2.00 07/03/17 08:00 96 Nasal Cannula 2.00 I & O 07/04/17 07:00 Intake Total 1964 ml Output Total 325 ml Balance 1639 ml Capillary Refill : Less Than 3 Seconds General Appearance: No Apparent Distress, WD/WN HEENT: Normal ENT Inspection Neck: Full Range of Motion, Normal Inspection Respiratory: Chest Non Tender, Normal Breath Sounds, No Accessory Muscle Use, No Respiratory Distress Cardiovascular: Regular Rate, Rhythm, No Murmur Gastrointestinal: non tender, soft Results Lab Laboratory Tests 07/03/17 08:01 07/04/17 05:31 Laboratory Tests 07/03/17 08:01: White Blood Count 8.8, Red Blood Count 3.53L, Hemoglobin 9.5L, Hematocrit 31L, Mean Corpuscular Volume 86, Mean Corpuscular Hemoglobin 27, Mean Corpuscular Hemoglobin Concent 31L, Red Cell Distribution Width 13.1, Platelet Count 317, Mean Platelet Volume 10.0, Sodium Level 141, Potassium Level 4.8, Chloride Level 104, Carbon Dioxide Level 26, Anion Gap 11, Blood Urea Nitrogen 40H, Creatinine 1.45H, Estimat Glomerular Filtration Rate 51, BUN/Creatinine Ratio 28 , Glucose Level 94, Calcium Level 8.4L 07/03/17 11:39: Glucometer 121H 07/03/17 16:12: Glucometer 166H 07/03/17 20:50: Glucometer 207H 07/04/17 05:06: Glucometer 182H 07/04/17 05:31: White Blood Count 7.5, Red Blood Count 3.40L, Hemoglobin 9.2L, Hematocrit 29L, Mean Corpuscular Volume 86, Mean Corpuscular Hemoglobin 27, Mean Corpuscular Hemoglobin Concent 32, Red Cell Distribution Width 13.0, Platelet Count 274, Mean Platelet Volume 10.9H, Sodium Level 139, Potassium Level 4.5, Chloride Level 103, Carbon Dioxide Level 27, Anion Gap 9, Blood Urea Nitrogen 48H, Creatinine 1.70H, Estimat Glomerular Filtration Rate 43, BUN/Creatinine Ratio 28 , Glucose Level 161H, Calcium Level 8.6, B-Type Natriuretic Peptide 619.8H Assessment/Plan Assessment/Plan Assess & Plan/Chief Complaint chest pain resolved. Minimal elevated troponin. Coronary artery disease. Diabetes. Diabetic neuropathy. Renal insufficiency. Anemia. Coronary artery disease. Recent history of cardiac stent. Patient feeling better and wants to go home Clinical Quality Measures AMI/AHF: ASA po Prior to arrival: Yes DVT/VTE Risk/Contraindication: Risk Factor Score Per Nursin RFS Level Per Nursing on Admit: 4+=Very High MARIIA SIM DO Jul 04, 2017 07:46
--- NOTE | 2017-07-04 08:50 | Cardiology Progress Note ---
Subjective Date Seen by Provider: Jul 04, 2017 Time Seen by Provider: 08:45 Subjective/Events-last exam Patient is sitting up in chair. Denies any CP. Reports some dyspnea and nonproductive cough. Asking to go home today. Review of Systems General: No Night Sweats, No Fatigue, No Malaise HEENT: No Visual Changes, No Dysphasia, No Sore Throat Pulmonary: Dyspnea, Cough Cardiovascular: Chest Pain, No: Palpitations, Paroxysmal Noc. Dyspnea, Edema Gastrointestinal: No: Nausea, Vomiting, Abdominal Pain Genitourinary: No Dysuria, No Frequency Musculoskeletal: No: neck pain, back pain Neurological: No: Weakness, Numbness, Change in speech, Confusion Objective-Cardiology Exam Last Set of Vital Signs Vital Signs 07/01/17 07/04/17 20:44 07:40 Temp 98.9 Pulse 82 Resp 22 B/P (MAP) 152/84 (106) Pulse Ox 97 O2 Delivery Nasal Cannula O2 Flow Rate 2.00 FiO2 100 Capillary Refill : Less Than 3 Seconds I&O Intake and Output 07/04/17 00:00 Intake Total 3859 ml Output Total 975 ml Balance 2884 ml Intake Oral 2064 ml IV Total 1795 ml Output Urine Total 975 ml General: Alert, Oriented X3, Cooperative HEENT: Atraumatic, PERRLA Neck: Supple, No JVD, No Thyromegaly Lungs: Normal Air Movement, Other (decreased breath sounds bibasilarly) Heart: Regular Rate, Normal S1, Normal S2, No Murmurs Abdomen: Normal Bowel Sounds, No Tenderness Extremities: No Clubbing, No Cyanosis Skin: No Rashes, No Significant Lesion Neuro: Normal Speech, Cranial Nerves 3-12 NL Psych/Mental Status: Mental Status NL, Mood NL Results Lab Laboratory Tests 07/04/17 05:31 A/P-Cardiology Admission Diagnosis Chest pain Elevated troponin CAD CHF Assessment/Plan Chest pain, nonspecific etiology,atypical in presentation with right sided chest pain. Resolved w/o any evidence of ACS. Continue to monitor. Minimal troponin elevation, probably due to PCI of 06/23/17 and/or acute renal failure. Acute renal failure, improving, possibly due to contrast nephropathy. Continue to monitor renal function. Anemia of undetermined etiology, management per medical services Chronic systolic and diastolic CHF w/o any clinical evidence of decompensation at this time. Maintained on beta josue, ARB Coronary artery disease. Last cardiac cath done on 06/23/17 revealing severe stenosis in the mid LAD treated with MARILIA (Alpine Xience 3.018 mm); proximal to the stent there is [id number] disease nonobstructive disease; moderate disease at the distal circumflex artery; otherwise nonobstructive disease; elevated left ventricular end-diastolic pressure Last echo on 07/02/17: LVEF 50-55%, grade I lu dysfunction, PASP approx 25 mmHg Mild to moderate peripheral arterial disease per angiogram done in 2016. Continue to monitor Hypertension, continue current blood pressure medication and continue to monitor. History of frequent PVCs Mild bilateral carotid stenosis nonobstructive disease. Mild carotid arterial disease per carotid duplex and CTA neck, followed by Dr Perez Diabetes mellitus II Diabetic neuropathy and nephropathy Hyperlipidemia, treated with statin Erectile dysfunction- likely related to DM and neuropathy, in addition to peripheral arterial disease Obesity, BMI 37 History of noncompliance with medications Clinical Quality Measures AMI/AHF: ASA po Prior to arrival: Yes DVT/VTE Risk/Contraindication: Risk Factor Score Per Nursin RFS Level Per Nursing on Admit: 4+=Very High CLAY SOMERS Jul 04, 2017 08:50
--- NOTE | 2017-07-04 09:04 | Cardiology Progress Note ---
Subjective Date Seen by Provider: Jul 04, 2017 Time Seen by Provider: 09:03 Subjective/Events-last exam Patient is in bed, still having some cough and right sided chest pain usually with deep inspiration and coughing. No palpitation. Has been compliant with his medications Review of Systems General: No Chills, No Night Sweats, No Fatigue, No Malaise, No Appetite, No Other HEENT: No Head Aches, No Visual Changes, No Eye Pain, No Ear Pain, No Dysphasia , No Sinus Congestion, No Post Nasal Drip, No Sore Throat, No Other Pulmonary: Dyspnea, No Cough, No Pleuritic Chest Pain, No Other Cardiovascular: Chest Pain, No: Palpitations, Orthopnea, Paroxysmal Noc. Dyspnea, Edema, Lt Headedness, Other Objective-Cardiology Exam Last Set of Vital Signs Vital Signs 07/01/17 07/04/17 20:44 07:40 Temp 98.9 Pulse 82 Resp 22 B/P (MAP) 152/84 (106) Pulse Ox 97 O2 Delivery Nasal Cannula O2 Flow Rate 2.00 FiO2 100 Capillary Refill : Less Than 3 Seconds I&O Intake and Output 07/04/17 00:00 Intake Total 3859 ml Output Total 975 ml Balance 2884 ml Intake Oral 2064 ml IV Total 1795 ml Output Urine Total 975 ml General: Alert, Oriented X3, Cooperative HEENT: Atraumatic, PERRLA Neck: Supple, No JVD, No Thyromegaly Lungs: Normal Air Movement, Other (decreased breath sounds bibasilarly) Heart: Regular Rate, Normal S1, Normal S2, No Murmurs Abdomen: Normal Bowel Sounds, No Tenderness Extremities: No Clubbing, No Cyanosis Skin: No Rashes, No Significant Lesion Neuro: Normal Speech, Cranial Nerves 3-12 NL Psych/Mental Status: Mental Status NL, Mood NL Results Lab Laboratory Tests 07/04/17 05:31 A/P-Cardiology Admission Diagnosis Chest pain Elevated troponin CAD CHF Assessment/Plan Chest pain, nonspecific etiology,atypical in presentation with right sided chest pain. Resolved w/o any evidence of ACS. will plan for stress test in 6 -8 weeks Minimal troponin elevation, probably due to PCI of 06/23/17 and/or acute renal failure. Acute renal failure, improving, possibly due to contrast nephropathy. Continue to monitor renal function. Anemia of undetermined etiology, management per medical services Chronic systolic and diastolic CHF w/o any clinical evidence of decompensation at this time. Maintained on beta josue, ARB Coronary artery disease. Last cardiac cath done on 06/23/17 revealing severe stenosis in the mid LAD treated with MARILIA (Alpine Xience 3.018 mm); proximal to the stent there is [id number] disease nonobstructive disease; moderate disease at the distal circumflex artery; otherwise nonobstructive disease; elevated left ventricular end-diastolic pressure Last echo on 07/02/17: LVEF 50-55%, grade I lu dysfunction, PASP approx 25 mmHg Mild to moderate peripheral arterial disease per angiogram done in 2015. Continue to monitor Hypertension, continue current blood pressure medication and continue to monitor. History of frequent PVCs Mild bilateral carotid stenosis nonobstructive disease. Mild carotid arterial disease per carotid duplex and CTA neck, followed by Dr Perez Diabetes mellitus II Diabetic neuropathy and nephropathy Hyperlipidemia, treated with statin Erectile dysfunction- likely related to DM and neuropathy, in addition to peripheral arterial disease Obesity, BMI 37 History of noncompliance with medications Clinical Quality Measures AMI/AHF: ASA po Prior to arrival: Yes DVT/VTE Risk/Contraindication: Risk Factor Score Per Nursin RFS Level Per Nursing on Admit: 4+=Very High KAREN PEREZ MD Jul 04, 2017 09:04
[2017-07-04] MEDS ORDERED: ATOR10TA PO (09:06)
[2017-07-04] MEDS: LOSARTAN 100 MG (COZAAR) TABLET PO SCH (09:08)
[2017-07-04] MEDS: GLIMEPIRIDE 4 MG (AMARYL) TAB PO SCH (09:08)
[2017-07-04] MEDS: LIDOCAINE (LIDODERM) 5% PATCH TOP SCH (09:08)
[2017-07-04] MEDS: CEFDINIR 300 MG (OMNICEF) CAP PO SCH ×2 (09:08→21:14)
[2017-07-04] MEDS: meTOprolol TARTRATE 50 MG (LOPRESSOR) TAB PO SCH ×2 (09:08→21:15)
[2017-07-04] MEDS: CLOPIDOGREL 75 MG (PLAVIX) TABLET PO SCH (09:09)
[2017-07-04] MEDS: GABAPENTIN 600 MG (NEURONTIN) TAB PO SCH ×2 (09:09→21:15)
[2017-07-04] MEDS: ASPIRIN E.C. 81 MG (ECOTRIN) TAB PO SCH (09:09)
[2017-07-04] MEDS: LIDOCAINE PATCH REMOVAL TP SCH ×2 (09:27→21:15)
[2017-07-04 10:00] LABS: BODY SURFACE AREA 2.36; PATIENT WEIGHT,URINE 266.5 LBS
[2017-07-04 10:02] LABS: CREATININE CRCL 1.7 MG/DL (0.60-1.30)
[2017-07-04] MEDS: GABAPENTIN 300 MG (NEURONTIN) CAP PO SCH (11:43)
[2017-07-04 12:00] VITALS: BP 164/82
[2017-07-04] MEDS: ACETAMINOPHEN 325 MG TABLET/CAPLET (TYLENOL) PO PRN (12:28)
--- NOTE | 2017-07-04 14:23 | Diagnostic Imaging Report ---
Clinical indication: Patient with shortness of breath and fever. Exam: Chest x-ray PA and lateral views. Comparisons: Chest x-ray dated 07/03/2017. Findings: There is stable cardiomegaly. There is no significant pulmonary vascular congestion. There is no significant change to the patchy bilateral lung infiltrates which is worse in the left lung base. There is no pleural effusion or pneumothorax. There are small degenerative spurs involving the thoracic spine. Impression: Stable cardiomegaly and bilateral lung infiltrates which may be related to infectious or inflammatory process. There is no significant pulmonary vascular congestion to suggest radiographic evidence for congestive heart failure, but clinical correlation would better evaluate. Dictated by: Dictated on workstation # [id number]
[2017-07-04 15:28] LABS: BASOPHILS % (AUTO) 0 % (0-10); EOSINOPHILS # (AUTO) 0.1 10^3/uL (0.0-0.3); EOSINOPHILS % (AUTO) 1 % (0-10); HEMATOCRIT 31 % (40-54); HEMOGLOBIN 9.8 G/DL (13.3-17.7); LYMPHOCYTES # (AUTO) 0.5 X 10^3 (1.0-4.0); LYMPHOCYTES % (AUTO) 6 % (12-44); MEAN CORPUSCULAR HEMOGLOBIN 27 PG (25-34); MEAN CORPUSCULAR HGB CONC 32 G/DL (32-36); MEAN CORPUSCULAR VOLUME 86 FL (80-99); MEAN PLATELET VOLUME 10.8 FL (7.4-10.4); MONOCYTES # (AUTO) 0.4 X 10^3 (0.0-1.0); MONOCYTES % (AUTO) 4 % (0-12); NEUTROPHILS # (AUTO) 7.8 X 10^3 (1.8-7.8); NEUTROPHILS % (AUTO) 89 % (42-75); PLATELET COUNT 302 10^3/uL (130-400); RED BLOOD COUNT 3.62 10^6/uL (4.35-5.85); RED CELL DISTRIBUTION WIDTH 12.9 % (10.0-14.5); WHITE BLOOD COUNT 8.8 10^3/uL (4.3-11.0)
[2017-07-04 15:59] LABS: BAND NEUTROPHILS 3 %; BASOPHILS % (MANUAL) 0 %; EOSINOPHILS % (MANUAL) 0 %; LYMPHOCYTES % (MANUAL) 7 %; MONOCYTES % (MANUAL) 5 %; NEUTROPHILS % (MANUAL) 85 %; RBC MORPH NORMAL
[2017-07-04] MEDS ORDERED: IBUPROFEN 600 MG (MOTRIN) TAB PO PRN (16:00)
[2017-07-04] MEDS: AZITHROMYCIN 250 MG TAB (ZITHROMAX) PO SCH (16:30)
[2017-07-04 16:59] VITALS: BP 132/68
[2017-07-04] MEDS ORDERED: ONDANSETRON 4 MG/2 ML (SDV) Z0FRAN IVP NR (19:00)
[2017-07-04 20:59] VITALS: BP 111/63
[2017-07-04] MEDS: ATORVASTATIN 40 MG (LIPITOR) TABLET PO SCH (21:14)
[2017-07-05 00:17] VITALS: BP 110/60
[2017-07-05 04:13] VITALS: BP 109/66
[2017-07-05] MEDS: CATHETER FLUSH 10 ML SYR IV SCH ×3 (05:11→22:00)
[2017-07-05 06:45] LABS: BASOPHILS % (AUTO) 1 % (0-10); EOSINOPHILS # (AUTO) 0.2 10^3/uL (0.0-0.3); EOSINOPHILS % (AUTO) 3 % (0-10); HEMATOCRIT 30 % (40-54); HEMOGLOBIN 9.3 G/DL (13.3-17.7); LYMPHOCYTES # (AUTO) 1.6 X 10^3 (1.0-4.0); LYMPHOCYTES % (AUTO) 22 % (12-44); MEAN CORPUSCULAR HEMOGLOBIN 27 PG (25-34); MEAN CORPUSCULAR HGB CONC 31 G/DL (32-36); MEAN CORPUSCULAR VOLUME 87 FL (80-99); MEAN PLATELET VOLUME 11.1 FL (7.4-10.4); MONOCYTES # (AUTO) 0.7 X 10^3 (0.0-1.0); MONOCYTES % (AUTO) 9 % (0-12); NEUTROPHILS # (AUTO) 4.7 X 10^3 (1.8-7.8); NEUTROPHILS % (AUTO) 65 % (42-75); PLATELET COUNT 254 10^3/uL (130-400); RED CELL DISTRIBUTION WIDTH 12.9 % (10.0-14.5); WHITE BLOOD COUNT 7.2 10^3/uL (4.3-11.0)
[2017-07-05 07:04] LABS: ALBUMIN 3.3 GM/DL (3.2-4.5); BILIRUBIN,TOTAL 0.3 MG/DL (0.1-1.0); CALCIUM 8.6 MG/DL (8.5-10.1); CREATININE SERUM 2.29 MG/DL (0.60-1.30); POTASSIUM 4.8 MMOL/L (3.6-5.0); TOTAL PROTEIN 5.8 GM/DL (6.4-8.2)
--- NOTE | 2017-07-05 07:47 | Progress Note (SOAP) ---
Subjective Time Seen by Provider: 07:45 Subjective/Events-last exam patient ran elevated temperature last night. Chest x-ray may show pneumonia. patient has renal insufficiency today. Blood cultures cooking. Diabetes. Diabetic neuropathy. Chest pain resolved High troponin patient still needs another day Objective Exam Vital Signs Date Time Temp Pulse Resp B/P (MAP) Pulse Ox O2 Delivery O2 Flow Rate FiO2 07/05/17 04:13 98.2 63 20 109/66 (80) 100 Nasal Cannula 2.00 07/05/17 01:00 55 07/05/17 00:17 98.2 80 18 110/60 (77) 98 Nasal Cannula 2.00 07/04/17 21:00 Nasal Cannula 2.00 07/04/17 20:59 97.6 87 18 111/63 (79) 96 Nasal Cannula 2.00 07/04/17 20:11 Nasal Cannula 2.00 07/04/17 19:00 90 07/04/17 16:59 102.0 106 22 132/68 (89) 90 Nasal Cannula 2.00 07/04/17 13:00 106 07/04/17 12:28 102.0 07/04/17 12:00 102.2 107 18 164/82 (109) 90 Room Air 07/04/17 09:00 Nasal Cannula 2.00 I & O 07/05/17 07:00 Intake Total 2327 ml Balance 2327 ml Capillary Refill : Less Than 3 Seconds General Appearance: No Apparent Distress, WD/WN HEENT: Normal ENT Inspection Neck: Full Range of Motion Respiratory: No Accessory Muscle Use, No Respiratory Distress Cardiovascular: Regular Rate, Rhythm, No Murmur Gastrointestinal: non tender, soft Results Lab Laboratory Tests 07/04/17 09:10: Urine Collection Time 24, Urine Total Volume 1572, Urine Creatinine 92, Urine Creatinine 24 Hour 1446, Patient Height Inches (Creat Clear) 70, Patient Weight Pounds (Creat Clear) 266.5, Body Surface Area (Creat Clear) 2.36, Creatinine Clearance 43L, Urine Total Protein mg/dL 270H, Urine Total Protein 24 Hour 4244H , Creatinine 1.70H 07/04/17 10:48: Glucometer 191H 07/04/17 15:10: White Blood Count 8.8, Red Blood Count 3.62L, Hemoglobin 9.8L, Hematocrit 31L, Mean Corpuscular Volume 86, Mean Corpuscular Hemoglobin 27, Mean Corpuscular Hemoglobin Concent 32, Red Cell Distribution Width 12.9, Platelet Count 302, Mean Platelet Volume 10.8H, Neutrophils (%) (Auto) 89H, Lymphocytes (%) (Auto) 6L, Monocytes (%) (Auto) 4, Eosinophils (%) (Auto) 1, Basophils (%) (Auto) 0, Neutrophils # (Auto) 7.8, Lymphocytes # (Auto) 0.5L, Monocytes # (Auto) 0.4, Eosinophils # (Auto) 0.1, Basophils # (Auto) 0.0, Neutrophils % (Manual) 85, Lymphocytes % (Manual) 7, Monocytes % (Manual) 5, Eosinophils % (Manual) 0, Basophils % (Manual) 0, Band Neutrophils 3, Blood Morphology Comment NORMAL, Lactic Acid Level 0.91 07/04/17 16:39: Glucometer 170H 07/04/17 21:01: Glucometer 268H 07/05/17 05:55: Glucometer 204H 07/05/17 05:57: White Blood Count 7.2, Red Blood Count 3.50L, Hemoglobin 9.3L, Hematocrit 30L, Mean Corpuscular Volume 87, Mean Corpuscular Hemoglobin 27, Mean Corpuscular Hemoglobin Concent 31L, Red Cell Distribution Width 12.9, Platelet Count 254, Mean Platelet Volume 11.1H, Neutrophils (%) (Auto) 65, Lymphocytes (%) (Auto) 22 , Monocytes (%) (Auto) 9, Eosinophils (%) (Auto) 3, Basophils (%) (Auto) 1, Neutrophils # (Auto) 4.7, Lymphocytes # (Auto) 1.6, Monocytes # (Auto) 0.7, Eosinophils # (Auto) 0.2, Basophils # (Auto) 0.0, Sodium Level 140, Potassium Level 4.8, Chloride Level 103, Carbon Dioxide Level 26, Anion Gap 11, Blood Urea Nitrogen 61H, Creatinine 2.29H, Estimat Glomerular Filtration Rate 30, BUN/ Creatinine Ratio 27, Glucose Level 199H, Calcium Level 8.6, Total Bilirubin 0.3 , Aspartate Amino Transf (AST/SGOT) 15, Alanine Aminotransferase (ALT/SGPT) 19, Alkaline Phosphatase 81, Total Protein 5.8L, Albumin 3.3 Microbiology 07/03/17 Blood Culture - Preliminary, Resulted No growth 07/04/17 Influenza Types A,B Antigen (PERICO) - Final, Complete Assessment/Plan Assessment/Plan Assess & Plan/Chief Complaint chest pain resolved. Minimal elevated troponin. Coronary artery disease. Diabetes. Diabetic neuropathy. Renal insufficiency. Anemia. Coronary artery disease. Recent history of cardiac stent. Patient feeling better and wants to go home . 07/05/17. Chest pain resolved. Minimal elevated troponin. Coronary artery disease. Diabetes. Diabetic neuropathy. Renal insufficiency worse. Anemia. Recent history of cardiac stent. Patient to receive a bolus of fluid. Patient put on Zithromax. Chest x-ray may show pneumonia. Blood cultures cooking Clinical Quality Measures AMI/AHF: ASA po Prior to arrival: Yes DVT/VTE Risk/Contraindication: Risk Factor Score Per Nursin RFS Level Per Nursing on Admit: 4+=Very High MARIIA SIM DO Jul 05, 2017 07:47
--- NOTE | 2017-07-05 07:47 | Cardiology Progress Note ---
Subjective Date Seen by Provider: Jul 05, 2017 Time Seen by Provider: 07:45 Subjective/Events-last exam patient is laying down in bed, feeling better, no new complaint Review of Systems General: No Chills, No Night Sweats, No Fatigue, No Malaise, No Appetite, No Other HEENT: No Head Aches, No Visual Changes, No Eye Pain, No Ear Pain, No Dysphasia , No Sinus Congestion, No Post Nasal Drip, No Sore Throat, No Other Pulmonary: No Dyspnea, No Cough, No Pleuritic Chest Pain, No Other Cardiovascular: No: Chest Pain, Palpitations, Orthopnea, Paroxysmal Noc. Dyspnea, Edema, Lt Headedness, Other Objective-Cardiology Exam Last Set of Vital Signs Vital Signs 07/01/17 07/05/17 20:44 04:13 Temp 98.2 Pulse 63 Resp 20 B/P (MAP) 109/66 (80) Pulse Ox 100 O2 Delivery Nasal Cannula O2 Flow Rate 2.00 FiO2 100 Capillary Refill : Less Than 3 Seconds I&O Intake and Output 07/05/17 00:00 Intake Total 2727 ml Output Total 400 ml Balance 2327 ml Intake Oral 2727 ml Output Urine Total 400 ml # Voids 4 General: Alert, Oriented X3, Cooperative HEENT: Atraumatic, PERRLA Neck: Supple, No JVD, No Thyromegaly Lungs: Clear to Auscultation, Normal Air Movement Heart: Regular Rate, Normal S1, Normal S2, No Murmurs Abdomen: Normal Bowel Sounds, No Tenderness Extremities: No Clubbing, No Cyanosis Skin: No Rashes, No Significant Lesion Neuro: Normal Speech, Cranial Nerves 3-12 NL Psych/Mental Status: Mental Status NL, Mood NL Results Lab Laboratory Tests 07/04/17 09:10 07/04/17 15:10 07/05/17 05:57 A/P-Cardiology Admission Diagnosis Chest pain Elevated troponin CAD CHF Assessment/Plan Chest pain, nonspecific etiology, atypical in presentation with right sided chest pain. Resolved w/o any evidence of ACS. will plan for stress test in 6 -8 weeks as an outpatient Minimal troponin elevation, probably due to PCI of 06/23/17 and/or acute renal failure. okay for discharge once clinically stable Acute renal failure, receiving IV fluid today. Monitor INR. Anemia of undetermined etiology, management per medical services Chronic systolic and diastolic CHF w/o any clinical evidence of decompensation at this time. Maintained on beta josue, ARB Coronary artery disease. Last cardiac cath done on 06/23/17 revealing severe stenosis in the mid LAD treated with MARILIA (Alpine Xience 3.018 mm); proximal to the stent there is [id number] disease nonobstructive disease; moderate disease at the distal circumflex artery; otherwise nonobstructive disease; elevated left ventricular end-diastolic pressure Last echo on 07/02/17: LVEF 50-55%, grade I diastolic dysfunction, PASP approx 25 mmHg Mild to moderate peripheral arterial disease per angiogram done in 2015. Continue to monitor Hypertension, continue current blood pressure medication and continue to monitor. History of frequent PVCs Mild bilateral carotid stenosis nonobstructive disease. Mild carotid arterial disease per carotid duplex and CTA neck, followed by Dr Perez Diabetes mellitus II Diabetic neuropathy and nephropathy Hyperlipidemia, treated with statin Erectile dysfunction- likely related to DM and neuropathy, in addition to peripheral arterial disease Obesity, BMI 37 History of noncompliance with medications Clinical Quality Measures AMI/AHF: ASA po Prior to arrival: Yes DVT/VTE Risk/Contraindication: Risk Factor Score Per Nursin RFS Level Per Nursing on Admit: 4+=Very High KAREN PEREZ MD Jul 05, 2017 07:47
[2017-07-05 08:00] VITALS: BP 116/74
[2017-07-05] MEDS ORDERED: 1/2 NS IV SOLUTION 1,000 ML IV ONE (08:30)
[2017-07-05] MEDS: 1/2 NS IV SOLUTION 1,000 ML IV SCH ×2 (08:51→11:53)
[2017-07-05] MEDS: CEFDINIR 300 MG (OMNICEF) CAP PO SCH ×2 (08:52→21:25)
[2017-07-05] MEDS: AZITHROMYCIN 250 MG TAB (ZITHROMAX) PO SCH (08:52)
[2017-07-05] MEDS: ASPIRIN E.C. 81 MG (ECOTRIN) TAB PO SCH (08:52)
[2017-07-05] MEDS: GLIMEPIRIDE 4 MG (AMARYL) TAB PO SCH (08:52)
[2017-07-05] MEDS: GABAPENTIN 600 MG (NEURONTIN) TAB PO SCH ×2 (08:52→21:26)
[2017-07-05] MEDS: meTOprolol TARTRATE 50 MG (LOPRESSOR) TAB PO SCH ×2 (08:52→21:25)
[2017-07-05] MEDS: CLOPIDOGREL 75 MG (PLAVIX) TABLET PO SCH (08:53)
[2017-07-05] MEDS: LIDOCAINE (LIDODERM) 5% PATCH TOP SCH ×2 (08:53→09:05)
[2017-07-05] MEDS: GABAPENTIN 300 MG (NEURONTIN) CAP PO SCH (11:55)
[2017-07-05 12:00] VITALS: BP 105/69
[2017-07-05 12:32] LABS: BILIRUBIN,URINE NEGATIVE (NEGATIVE); CLARITY,URINE CLEAR; COLOR,URINE YELLOW; GLUCOSE, URINE (UA) NEGATIVE (NEGATIVE); KETONES,URINE NEGATIVE (NEGATIVE); LEUKOCYTE ESTERASE ,URINE NEGATIVE (NEGATIVE); NITRITE,URINE NEGATIVE (NEGATIVE); PH,URINE 5 (5-9); PROTEIN,URINE 3+ (NEGATIVE); UROBILINOGEN,URINE NORMAL (NORMAL)
[2017-07-05 12:51] LABS: AMORPHOUS SEDIMENT,UR RARE AMOR URATES /LPF; BACTERIA,URINE TRACE /HPF; HYALINE CASTS, URINE 25-50 /LPF; RBC,URINE 0-2 /HPF; SQUAMOUS EPITHELIAL CELL,UR RARE /HPF; WBC,URINE 0-2 /HPF
[2017-07-05] MEDS: ONDANSETRON 4 MG/2 ML (SDV) Z0FRAN IVP PRN ×2 (14:37→18:57)
[2017-07-05 15:32] VITALS: BP 146/75
[2017-07-05] MEDS: ATORVASTATIN 40 MG (LIPITOR) TABLET PO SCH (21:25)
[2017-07-05] MEDS: LIDOCAINE PATCH REMOVAL TP SCH (21:26)
[2017-07-05 23:55] VITALS: BP 137/68
[2017-07-06] MEDS: 1/2 NS IV SOLUTION 1,000 ML IV SCH (01:26)
[2017-07-06 04:00] VITALS: BP_SYST 120; BP_SYST 124; BP_DIAS 64; BP_DIAS 65
[2017-07-06] MEDS: CATHETER FLUSH 10 ML SYR IV SCH (05:24)
[2017-07-06 06:12] LABS: BASOPHILS % (AUTO) 1 % (0-10); EOSINOPHILS # (AUTO) 0.4 10^3/uL (0.0-0.3); EOSINOPHILS % (AUTO) 5 % (0-10); HEMATOCRIT 27 % (40-54); HEMOGLOBIN 8.5 G/DL (13.3-17.7); LYMPHOCYTES # (AUTO) 1.5 X 10^3 (1.0-4.0); LYMPHOCYTES % (AUTO) 20 % (12-44); MEAN CORPUSCULAR HEMOGLOBIN 27 PG (25-34); MEAN CORPUSCULAR HGB CONC 31 G/DL (32-36); MEAN CORPUSCULAR VOLUME 85 FL (80-99); MEAN PLATELET VOLUME 10.9 FL (7.4-10.4); MONOCYTES # (AUTO) 0.5 X 10^3 (0.0-1.0); MONOCYTES % (AUTO) 7 % (0-12); NEUTROPHILS # (AUTO) 5.1 X 10^3 (1.8-7.8); NEUTROPHILS % (AUTO) 68 % (42-75); PLATELET COUNT 233 10^3/uL (130-400); RED BLOOD COUNT 3.19 10^6/uL (4.35-5.85); RED CELL DISTRIBUTION WIDTH 12.9 % (10.0-14.5); WHITE BLOOD COUNT 7.5 10^3/uL (4.3-11.0)
[2017-07-06 06:33] LABS: ALBUMIN 3.1 GM/DL (3.2-4.5); BILIRUBIN,TOTAL 0.3 MG/DL (0.1-1.0); CALCIUM 8.2 MG/DL (8.5-10.1); CREATININE SERUM 1.83 MG/DL (0.60-1.30); POTASSIUM 4.6 MMOL/L (3.6-5.0); TOTAL PROTEIN 5.4 GM/DL (6.4-8.2)
--- NOTE | 2017-07-06 07:27 | Progress Note (SOAP) ---
Subjective Time Seen by Provider: 07:15 Subjective/Events-last exam patient feeling better today. Patient GFR is better. Patient be discharged today depending on chest x-ray Patient had 3 days of Zithromax 500 mg. Patient sounds better Objective Exam Vital Signs Date Time Temp Pulse Resp B/P (MAP) Pulse Ox O2 Delivery O2 Flow Rate FiO2 07/06/17 04:00 98.0 78 20 124/64 (84) 98 Nasal Cannula 2.00 07/06/17 01:00 83 07/05/17 23:55 98.0 77 20 137/68 (91) 92 Room Air 07/05/17 21:19 100.2 07/05/17 21:00 Room Air 07/05/17 19:00 81 07/05/17 17:39 Nasal Cannula 2.00 07/05/17 15:32 98.5 76 18 146/75 (98) 93 Room Air 07/05/17 12:00 98.4 73 18 105/69 (81) 92 Room Air 07/05/17 09:00 Room Air 07/05/17 08:00 97.6 64 20 116/74 (88) 96 Room Air I & O 07/06/17 07:00 Intake Total 2770 ml Output Total 3130 ml Balance -360 ml Capillary Refill : Less Than 3 Seconds General Appearance: No Apparent Distress, WD/WN HEENT: Normal ENT Inspection Neck: Full Range of Motion, Non Tender Respiratory: Lungs Clear, No Accessory Muscle Use, No Respiratory Distress Cardiovascular: Regular Rate, Rhythm, No Murmur Gastrointestinal: non tender, soft Results Lab Laboratory Tests 07/05/17 08:15: Urine Color YELLOW, Urine Clarity CLEAR, Urine pH 5, Urine Specific [place] 1.020, Urine Protein 3+H, Urine Glucose (UA) NEGATIVE, Urine Ketones NEGATIVE, Urine Nitrite NEGATIVE, Urine Bilirubin NEGATIVE, Urine Urobilinogen NORMAL, Urine Leukocyte Esterase NEGATIVE, Urine RBC (Auto) 1+H, Urine RBC 0-2, Urine WBC 0-2, Urine Squamous Epithelial Cells RARE, Urine Crystals PRESENTH, Urine Amorphous Sediment RARE SUNIL URATESH, Urine Bacteria TRACE, Urine Casts PRESENT , Urine Hyaline Casts 25-50H, Urine Mucus SMALLH, Urine Culture Indicated NO 07/05/17 11:01: Glucometer 181H 07/05/17 21:11: Glucometer 274H 07/06/17 05:44: Glucometer 190H 07/06/17 05:57: White Blood Count 7.5, Red Blood Count 3.19L, Hemoglobin 8.5L, Hematocrit 27L, Mean Corpuscular Volume 85, Mean Corpuscular Hemoglobin 27, Mean Corpuscular Hemoglobin Concent 31L, Red Cell Distribution Width 12.9, Platelet Count 233, Mean Platelet Volume 10.9H, Neutrophils (%) (Auto) 68, Lymphocytes (%) (Auto) 20 , Monocytes (%) (Auto) 7, Eosinophils (%) (Auto) 5, Basophils (%) (Auto) 1, Neutrophils # (Auto) 5.1, Lymphocytes # (Auto) 1.5, Monocytes # (Auto) 0.5, Eosinophils # (Auto) 0.4H, Basophils # (Auto) 0.0, Sodium Level 137, Potassium Level 4.6, Chloride Level 104, Carbon Dioxide Level 25, Anion Gap 8, Blood Urea Nitrogen 54H, Creatinine 1.83H, Estimat Glomerular Filtration Rate 39, BUN/ Creatinine Ratio 30, Glucose Level 183H, Calcium Level 8.2L, Total Bilirubin 0.3 , Aspartate Amino Transf (AST/SGOT) 14, Alanine Aminotransferase (ALT/SGPT) 17, Alkaline Phosphatase 74, Total Protein 5.4L, Albumin 3.1L Microbiology 07/04/17 Blood Culture - Preliminary, Resulted No growth 07/04/17 Influenza Types A,B Antigen (PERICO) - Final, Complete Assessment/Plan Assessment/Plan Assess & Plan/Chief Complaint chest pain resolved. Minimal elevated troponin. Coronary artery disease. Diabetes. Diabetic neuropathy. Renal insufficiency. Anemia. Coronary artery disease. Recent history of cardiac stent. Patient feeling better and wants to go home . 07/05/17. Chest pain resolved. Minimal elevated troponin. Coronary artery disease. Diabetes. Diabetic neuropathy. Renal insufficiency worse. Anemia. Recent history of cardiac stent. Patient to receive a bolus of fluid. Patient put on Zithromax. Chest x-ray may show pneumonia. Blood cultures cookingarea . 07/06/17. Chest pain resolved. Minimal elevated troponin. Coronary artery disease. Diabetes. Diabetic neuropathy. Renal insufficiency better with bolus. Patient received a course of Zithromax with today's medicine. Plan to discharge today Clinical Quality Measures AMI/AHF: ASA po Prior to arrival: Yes DVT/VTE Risk/Contraindication: Risk Factor Score Per Nursin RFS Level Per Nursing on Admit: 4+=Very High MARIIA SIM DO Jul 06, 2017 07:27
[2017-07-06 08:00] VITALS: BP 125/68
--- NOTE | 2017-07-06 08:36 | Diagnostic Imaging Report ---
INDICATION: Pneumonia, followup. Time of exam 7:50 AM Correlation is made with prior study from 07/04/2017. The heart size is stable. There are parenchymal densities in both bases, similar to prior study and suggestive of a pulmonary infiltrates or atelectasis. The upper lung kunz remain clear. The vascularity is normal. No effusion is seen. There is no pneumothorax. IMPRESSION: Stable bibasilar infiltrates or atelectasis when compared with exam 2 days earlier. Dictated by: Dictated on workstation # [id number]
[2017-07-06] MEDS: GLIMEPIRIDE 4 MG (AMARYL) TAB PO SCH (08:44)
[2017-07-06] MEDS: CEFDINIR 300 MG (OMNICEF) CAP PO SCH (08:44)
[2017-07-06] MEDS: CLOPIDOGREL 75 MG (PLAVIX) TABLET PO SCH (08:44)
[2017-07-06] MEDS: AZITHROMYCIN 250 MG TAB (ZITHROMAX) PO SCH (08:44)
[2017-07-06] MEDS: GABAPENTIN 600 MG (NEURONTIN) TAB PO SCH (08:45)
[2017-07-06] MEDS: meTOprolol TARTRATE 50 MG (LOPRESSOR) TAB PO SCH (08:45)
[2017-07-06] MEDS: LIDOCAINE (LIDODERM) 5% PATCH TOP SCH (08:49)
[2017-07-06] MEDS: ASPIRIN E.C. 81 MG (ECOTRIN) TAB PO SCH (08:49)
[2017-07-06] MEDS: GABAPENTIN 300 MG (NEURONTIN) CAP PO SCH (11:22)
--- NOTE | 2017-07-07 18:37 | Discharge Summary ---
Diagnosis/Chief Complaint Date of Admission Jul 05, 2017 at 14:30 Date of Discharge Jul 06, 2017 at 13:57 Discharge Time: 18:34 Discharge Diagnosis chest pain right side. Elevated troponin area Elevated BNP. Anemia. Renal insufficiency. pneumonia Congestive heart failure. Recent history of LAD coronary stent. Hypertension. CAD. Peripheral artery disease. Hypertension. Obstructive sleep apnea. Chronic combined systolic and diastolic heart failure Discharge Summary Consultations cardiology Discharge Physical Examination Allergies: Coded Allergies: No Known Drug Allergies (Unverified , 06/20/17) Vitals & I&Os Vital Signs Date Time Temp Pulse Resp B/P (MAP) Pulse Ox O2 Delivery O2 Flow Rate FiO2 07/06/17 09:00 Room Air 07/06/17 08:00 99.2 84 20 125/68 (87) 92 07/06/17 04:00 2.00 07/01/17 20:44 100 Hospital Course patient eventually did bed and was able to be discharged home. Labs (last 24 hrs) Laboratory Tests 07/01/17 20:44: White Blood Count 10.4, Red Blood Count 4.14L, Hemoglobin 11.2#L, Hematocrit 35L , Mean Corpuscular Volume 84, Mean Corpuscular Hemoglobin 27, Mean Corpuscular Hemoglobin Concent 32, Red Cell Distribution Width 12.9, Platelet Count 388, Mean Platelet Volume 10.2, Neutrophils (%) (Auto) 73, Lymphocytes (%) (Auto) 13 , Monocytes (%) (Auto) 9, Eosinophils (%) (Auto) 5, Basophils (%) (Auto) 0, Neutrophils # (Auto) 7.5, Lymphocytes # (Auto) 1.4, Monocytes # (Auto) 0.9, Eosinophils # (Auto) 0.5H, Basophils # (Auto) 0.0, Prothrombin Time 13.7, INR Comment 1.0, Activated Partial Thromboplast Time 34, Sodium Level 141, Potassium Level 4.7, Chloride Level 100, Carbon Dioxide Level 28, Anion Gap 13, Blood Urea Nitrogen 48H, Creatinine 1.86H, Estimat Glomerular Filtration Rate 38 , BUN/Creatinine Ratio 26, Glucose Level 150H, Calcium Level 9.3, Magnesium Level 1.8, Total Bilirubin 0.6, Aspartate Amino Transf (AST/SGOT) 17, Alanine Aminotransferase (ALT/SGPT) 24, Alkaline Phosphatase 115, Myoglobin 185.7H, Troponin I 0.39*H, B-Type Natriuretic Peptide 455.3H, Total Protein 6.7, Albumin 3.7, Lipase 8 07/02/17 03:14: Troponin I 0.31*H, Erythrocyte Sedimentation Rate 39H, D-Dimer 1.37H, Triglycerides Level 112, Cholesterol Level 149, LDL Cholesterol Direct 104, VLDL Cholesterol 22, HDL Cholesterol 27L 07/02/17 11:10: Urine Color YELLOW, Urine Clarity CLEAR, Urine pH 6.5, Urine Specific Prosperity 1.015L, Urine Protein 3+H, Urine Glucose (UA) NEGATIVE, Urine Ketones NEGATIVE, Urine Nitrite NEGATIVE, Urine Bilirubin NEGATIVE, Urine Urobilinogen NORMAL, Urine Leukocyte Esterase NEGATIVE, Urine RBC (Auto) 3+H, Urine RBC 2-5H, Urine WBC NONE, Urine Squamous Epithelial Cells RARE, Urine Crystals NONE, Urine Bacteria NEGATIVE, Urine Casts NONE, Urine Mucus NEGATIVE, Urine Culture Indicated NO 07/02/17 11:33: Glucometer 152H 07/02/17 16:33: Glucometer 119H 07/02/17 21:40: Glucometer 136H 07/03/17 06:53: Glucometer 103 07/03/17 08:01: White Blood Count 8.8, Red Blood Count 3.53L, Hemoglobin 9.5L, Hematocrit 31L, Mean Corpuscular Volume 86, Mean Corpuscular Hemoglobin 27, Mean Corpuscular Hemoglobin Concent 31L, Red Cell Distribution Width 13.1, Platelet Count 317, Mean Platelet Volume 10.0, Sodium Level 141, Potassium Level 4.8, Chloride Level 104, Carbon Dioxide Level 26, Anion Gap 11, Blood Urea Nitrogen 40H, Creatinine 1.45H, Estimat Glomerular Filtration Rate 51, BUN/Creatinine Ratio 28 , Glucose Level 94, Calcium Level 8.4L 07/03/17 11:39: Glucometer 121H 07/03/17 16:12: Glucometer 166H 07/03/17 20:50: Glucometer 207H 07/04/17 05:06: Glucometer 182H 07/04/17 05:31: White Blood Count 7.5, Red Blood Count 3.40L, Hemoglobin 9.2L, Hematocrit 29L, Mean Corpuscular Volume 86, Mean Corpuscular Hemoglobin 27, Mean Corpuscular Hemoglobin Concent 32, Red Cell Distribution Width 13.0, Platelet Count 274, Mean Platelet Volume 10.9H, Sodium Level 139, Potassium Level 4.5, Chloride Level 103, Carbon Dioxide Level 27, Anion Gap 9, Blood Urea Nitrogen 48H, Creatinine 1.70H, Estimat Glomerular Filtration Rate 43, BUN/Creatinine Ratio 28 , Glucose Level 161H, Calcium Level 8.6, B-Type Natriuretic Peptide 619.8H 07/04/17 09:10: Creatinine 1.70H, Urine Collection Time 24, Urine Total Volume 1572, Urine Creatinine 92, Urine Creatinine 24 Hour 1446, Patient Height Inches (Creat Clear ) 70, Patient Weight Pounds (Creat Clear) 266.5, Body Surface Area (Creat Clear ) 2.36, Creatinine Clearance 43L, Urine Total Protein mg/dL 270H, Urine Total Protein 24 Hour 4244H 07/04/17 10:48: Glucometer 191H 07/04/17 15:10: White Blood Count 8.8, Red Blood Count 3.62L, Hemoglobin 9.8L, Hematocrit 31L, Mean Corpuscular Volume 86, Mean Corpuscular Hemoglobin 27, Mean Corpuscular Hemoglobin Concent 32, Red Cell Distribution Width 12.9, Platelet Count 302, Mean Platelet Volume 10.8H, Neutrophils (%) (Auto) 89H, Lymphocytes (%) (Auto) 6L, Monocytes (%) (Auto) 4, Eosinophils (%) (Auto) 1, Basophils (%) (Auto) 0, Neutrophils # (Auto) 7.8, Lymphocytes # (Auto) 0.5L, Monocytes # (Auto) 0.4, Eosinophils # (Auto) 0.1, Basophils # (Auto) 0.0, Neutrophils % (Manual) 85, Lymphocytes % (Manual) 7, Monocytes % (Manual) 5, Eosinophils % (Manual) 0, Basophils % (Manual) 0, Band Neutrophils 3, Blood Morphology Comment NORMAL, Lactic Acid Level 0.91 07/04/17 16:39: Glucometer 170H 07/04/17 21:01: Glucometer 268H 07/05/17 05:55: Glucometer 204H 07/05/17 05:57: White Blood Count 7.2, Red Blood Count 3.50L, Hemoglobin 9.3L, Hematocrit 30L, Mean Corpuscular Volume 87, Mean Corpuscular Hemoglobin 27, Mean Corpuscular Hemoglobin Concent 31L, Red Cell Distribution Width 12.9, Platelet Count 254, Mean Platelet Volume 11.1H, Neutrophils (%) (Auto) 65, Lymphocytes (%) (Auto) 22 , Monocytes (%) (Auto) 9, Eosinophils (%) (Auto) 3, Basophils (%) (Auto) 1, Neutrophils # (Auto) 4.7, Lymphocytes # (Auto) 1.6, Monocytes # (Auto) 0.7, Eosinophils # (Auto) 0.2, Basophils # (Auto) 0.0, Sodium Level 140, Potassium Level 4.8, Chloride Level 103, Carbon Dioxide Level 26, Anion Gap 11, Blood Urea Nitrogen 61H, Creatinine 2.29H, Estimat Glomerular Filtration Rate 30, BUN/ Creatinine Ratio 27, Glucose Level 199H, Calcium Level 8.6, Total Bilirubin 0.3 , Aspartate Amino Transf (AST/SGOT) 15, Alanine Aminotransferase (ALT/SGPT) 19, Alkaline Phosphatase 81, Total Protein 5.8L, Albumin 3.3 07/05/17 08:15: Urine Color YELLOW, Urine Clarity CLEAR, Urine pH 5, Urine Specific Prosperity 1.020, Urine Protein 3+H, Urine Glucose (UA) NEGATIVE, Urine Ketones NEGATIVE, Urine Nitrite NEGATIVE, Urine Bilirubin NEGATIVE, Urine Urobilinogen NORMAL, Urine Leukocyte Esterase NEGATIVE, Urine RBC (Auto) 1+H, Urine RBC 0-2, Urine WBC 0-2, Urine Squamous Epithelial Cells RARE, Urine Crystals PRESENTH, Urine Amorphous Sediment RARE SUNIL URATESH, Urine Bacteria TRACE, Urine Casts PRESENT , Urine Hyaline Casts 25-50H, Urine Mucus SMALLH, Urine Culture Indicated NO 07/05/17 11:01: Glucometer 181H 07/05/17 21:11: Glucometer 274H 07/06/17 05:44: Glucometer 190H 07/06/17 05:57: White Blood Count 7.5, Red Blood Count 3.19L, Hemoglobin 8.5L, Hematocrit 27L, Mean Corpuscular Volume 85, Mean Corpuscular Hemoglobin 27, Mean Corpuscular Hemoglobin Concent 31L, Red Cell Distribution Width 12.9, Platelet Count 233, Mean Platelet Volume 10.9H, Neutrophils (%) (Auto) 68, Lymphocytes (%) (Auto) 20 , Monocytes (%) (Auto) 7, Eosinophils (%) (Auto) 5, Basophils (%) (Auto) 1, Neutrophils # (Auto) 5.1, Lymphocytes # (Auto) 1.5, Monocytes # (Auto) 0.5, Eosinophils # (Auto) 0.4H, Basophils # (Auto) 0.0, Sodium Level 137, Potassium Level 4.6, Chloride Level 104, Carbon Dioxide Level 25, Anion Gap 8, Blood Urea Nitrogen 54H, Creatinine 1.83H, Estimat Glomerular Filtration Rate 39, BUN/ Creatinine Ratio 30, Glucose Level 183H, Calcium Level 8.2L, Total Bilirubin 0.3 , Aspartate Amino Transf (AST/SGOT) 14, Alanine Aminotransferase (ALT/SGPT) 17, Alkaline Phosphatase 74, Total Protein 5.4L, Albumin 3.1L 07/06/17 11:05: Glucometer 216H Microbiology 07/04/17 Blood Culture - Preliminary, Resulted No growth 07/04/17 Influenza Types A,B Antigen (PERICO) - Final, Complete Laboratory Tests 07/01/17 20:44 07/03/17 08:01 07/04/17 05:31 07/04/17 09:10 07/04/17 15:10 07/05/17 05:57 07/06/17 05:57 Pending Labs Microbiology Date/Time Source Procedure Growth Status 07/04/17 15:17 Peripheral Rt Hand Blood Culture - Preliminary No growth Resulted 07/04/17 15:10 Peripheral Rt Hand Blood Culture - Preliminary No growth Resulted 07/03/17 12:01 Peripheral Rt Hand Blood Culture - Preliminary No growth Resulted 07/03/17 11:53 Peripheral Rt Ac Blood Culture - Preliminary No growth Resulted 07/04/17 14:25 Nasopharynx Influenza Types A,B Antigen (PERICO) - Final Complete Laboratory Tests 07/01/17 20:44: White Blood Count 10.4, Red Blood Count 4.14, Hemoglobin 11.2, Hematocrit 35, Mean Corpuscular Volume 84, Mean Corpuscular Hemoglobin 27, Mean Corpuscular Hemoglobin Concent 32, Red Cell Distribution Width 12.9, Platelet Count 388, Mean Platelet Volume 10.2, Neutrophils (%) (Auto) 73, Lymphocytes (%) (Auto) 13 , Monocytes (%) (Auto) 9, Eosinophils (%) (Auto) 5, Basophils (%) (Auto) 0, Neutrophils # (Auto) 7.5, Lymphocytes # (Auto) 1.4, Monocytes # (Auto) 0.9, Eosinophils # (Auto) 0.5, Basophils # (Auto) 0.0, Prothrombin Time 13.7, INR Comment 1.0, Activated Partial Thromboplast Time 34, Sodium Level 141, Potassium Level 4.7, Chloride Level 100, Carbon Dioxide Level 28, Anion Gap 13, Blood Urea Nitrogen 48, Creatinine 1.86, Estimat Glomerular Filtration Rate 38, BUN/Creatinine Ratio 26, Glucose Level 150, Calcium Level 9.3, Magnesium Level 1.8, Total Bilirubin 0.6, Aspartate Amino Transf (AST/SGOT) 17, Alanine Aminotransferase (ALT/SGPT) 24, Alkaline Phosphatase 115, Myoglobin 185.7, Troponin I 0.39, B-Type Natriuretic Peptide 455.3, Total Protein 6.7, Albumin 3.7, Lipase 8 07/02/17 03:14: Troponin I 0.31, Erythrocyte Sedimentation Rate 39, D-Dimer 1.37, Triglycerides Level 112, Cholesterol Level 149, LDL Cholesterol Direct 104, VLDL Cholesterol 22, HDL Cholesterol 27 07/02/17 11:10: Urine Color YELLOW, Urine Clarity CLEAR, Urine pH 6.5, Urine Specific Prosperity 1.015, Urine Protein 3+, Urine Glucose (UA) NEGATIVE, Urine Ketones NEGATIVE, Urine Nitrite NEGATIVE, Urine Bilirubin NEGATIVE, Urine Urobilinogen NORMAL, Urine Leukocyte Esterase NEGATIVE, Urine RBC (Auto) 3+, Urine RBC 2-5, Urine WBC NONE, Urine Squamous Epithelial Cells RARE, Urine Crystals NONE, Urine Bacteria NEGATIVE, Urine Casts NONE, Urine Mucus NEGATIVE, Urine Culture Indicated NO 07/02/17 11:33: Glucometer 152 07/02/17 16:33: Glucometer 119 07/02/17 21:40: Glucometer 136 07/03/17 06:53: Glucometer 103 07/03/17 08:01: White Blood Count 8.8, Red Blood Count 3.53, Hemoglobin 9.5, Hematocrit 31, Mean Corpuscular Volume 86, Mean Corpuscular Hemoglobin 27, Mean Corpuscular Hemoglobin Concent 31, Red Cell Distribution Width 13.1, Platelet Count 317, Mean Platelet Volume 10.0, Sodium Level 141, Potassium Level 4.8, Chloride Level 104, Carbon Dioxide Level 26, Anion Gap 11, Blood Urea Nitrogen 40, Creatinine 1.45, Estimat Glomerular Filtration Rate 51, BUN/Creatinine Ratio 28 , Glucose Level 94, Calcium Level 8.4 07/03/17 11:39: Glucometer 121 07/03/17 16:12: Glucometer 166 07/03/17 20:50: Glucometer 207 07/04/17 05:06: Glucometer 182 07/04/17 05:31: White Blood Count 7.5, Red Blood Count 3.40, Hemoglobin 9.2, Hematocrit 29, Mean Corpuscular Volume 86, Mean Corpuscular Hemoglobin 27, Mean Corpuscular Hemoglobin Concent 32, Red Cell Distribution Width 13.0, Platelet Count 274, Mean Platelet Volume 10.9, Sodium Level 139, Potassium Level 4.5, Chloride Level 103, Carbon Dioxide Level 27, Anion Gap 9, Blood Urea Nitrogen 48, Creatinine 1.70, Estimat Glomerular Filtration Rate 43, BUN/Creatinine Ratio 28 , Glucose Level 161, Calcium Level 8.6, B-Type Natriuretic Peptide 619.8 07/04/17 09:10: Creatinine 1.70, Urine Collection Time 24, Urine Total Volume 1572, Urine Creatinine 92, Urine Creatinine 24 Hour 1446, Patient Height Inches (Creat Clear ) 70, Patient Weight Pounds (Creat Clear) 266.5, Body Surface Area (Creat Clear ) 2.36, Creatinine Clearance 43, Urine Total Protein mg/dL 270, Urine Total Protein 24 Hour 4244 07/04/17 10:48: Glucometer 191 07/04/17 15:10: White Blood Count 8.8, Red Blood Count 3.62, Hemoglobin 9.8, Hematocrit 31, Mean Corpuscular Volume 86, Mean Corpuscular Hemoglobin 27, Mean Corpuscular Hemoglobin Concent 32, Red Cell Distribution Width 12.9, Platelet Count 302, Mean Platelet Volume 10.8, Neutrophils (%) (Auto) 89, Lymphocytes (%) (Auto) 6, Monocytes (%) (Auto) 4, Eosinophils (%) (Auto) 1, Basophils (%) (Auto) 0, Neutrophils # (Auto) 7.8, Lymphocytes # (Auto) 0.5, Monocytes # (Auto) 0.4, Eosinophils # (Auto) 0.1, Basophils # (Auto) 0.0, Neutrophils % (Manual) 85, Lymphocytes % (Manual) 7, Monocytes % (Manual) 5, Eosinophils % (Manual) 0, Basophils % (Manual) 0, Band Neutrophils 3, Blood Morphology Comment NORMAL, Lactic Acid Level 0.91 07/04/17 16:39: Glucometer 170 07/04/17 21:01: Glucometer 268 07/05/17 05:55: Glucometer 204 07/05/17 05:57: White Blood Count 7.2, Red Blood Count 3.50, Hemoglobin 9.3, Hematocrit 30, Mean Corpuscular Volume 87, Mean Corpuscular Hemoglobin 27, Mean Corpuscular Hemoglobin Concent 31, Red Cell Distribution Width 12.9, Platelet Count 254, Mean Platelet Volume 11.1, Neutrophils (%) (Auto) 65, Lymphocytes (%) (Auto) 22 , Monocytes (%) (Auto) 9, Eosinophils (%) (Auto) 3, Basophils (%) (Auto) 1, Neutrophils # (Auto) 4.7, Lymphocytes # (Auto) 1.6, Monocytes # (Auto) 0.7, Eosinophils # (Auto) 0.2, Basophils # (Auto) 0.0, Sodium Level 140, Potassium Level 4.8, Chloride Level 103, Carbon Dioxide Level 26, Anion Gap 11, Blood Urea Nitrogen 61, Creatinine 2.29, Estimat Glomerular Filtration Rate 30, BUN/ Creatinine Ratio 27, Glucose Level 199, Calcium Level 8.6, Total Bilirubin 0.3, Aspartate Amino Transf (AST/SGOT) 15, Alanine Aminotransferase (ALT/SGPT) 19, Alkaline Phosphatase 81, Total Protein 5.8, Albumin 3.3 07/05/17 08:15: Urine Color YELLOW, Urine Clarity CLEAR, Urine pH 5, Urine Specific Prosperity 1.020, Urine Protein 3+, Urine Glucose (UA) NEGATIVE, Urine Ketones NEGATIVE, Urine Nitrite NEGATIVE, Urine Bilirubin NEGATIVE, Urine Urobilinogen NORMAL, Urine Leukocyte Esterase NEGATIVE, Urine RBC (Auto) 1+, Urine RBC 0-2, Urine WBC 0-2, Urine Squamous Epithelial Cells RARE, Urine Crystals PRESENT, Urine Amorphous Sediment RARE SUNIL URATES, Urine Bacteria TRACE, Urine Casts PRESENT, Urine Hyaline Casts 25-50, Urine Mucus SMALL, Urine Culture Indicated NO 07/05/17 11:01: Glucometer 181 07/05/17 21:11: Glucometer 274 07/06/17 05:44: Glucometer 190 07/06/17 05:57: White Blood Count 7.5, Red Blood Count 3.19, Hemoglobin 8.5, Hematocrit 27, Mean Corpuscular Volume 85, Mean Corpuscular Hemoglobin 27, Mean Corpuscular Hemoglobin Concent 31, Red Cell Distribution Width 12.9, Platelet Count 233, Mean Platelet Volume 10.9, Neutrophils (%) (Auto) 68, Lymphocytes (%) (Auto) 20 , Monocytes (%) (Auto) 7, Eosinophils (%) (Auto) 5, Basophils (%) (Auto) 1, Neutrophils # (Auto) 5.1, Lymphocytes # (Auto) 1.5, Monocytes # (Auto) 0.5, Eosinophils # (Auto) 0.4, Basophils # (Auto) 0.0, Sodium Level 137, Potassium Level 4.6, Chloride Level 104, Carbon Dioxide Level 25, Anion Gap 8, Blood Urea Nitrogen 54, Creatinine 1.83, Estimat Glomerular Filtration Rate 39, BUN/ Creatinine Ratio 30, Glucose Level 183, Calcium Level 8.2, Total Bilirubin 0.3, Aspartate Amino Transf (AST/SGOT) 14, Alanine Aminotransferase (ALT/SGPT) 17, Alkaline Phosphatase 74, Total Protein 5.4, Albumin 3.1 07/06/17 11:05: Glucometer 216 Radiology Reviewed chest x-ray pneumonia Discharge Home Medications: Active Scripts Active Lipitor (Atorvastatin Calcium) 10 Mg Tablet 10 Mg PO DAILY Reported Clopidogrel (Clopidogrel Bisulfate) 75 Mg Tablet 75 Mg PO DAILY Aspirin EC (Aspirin) 81 Mg Tablet.dr 81 Mg PO DAILY Furosemide 40 Mg Tablet 40 Mg PO BID Metoprolol Tartrate 50 Mg Tablet 50 Mg PO BID Glimepiride 2 Mg Tablet 2 Mg PO DAILY Gabapentin 300 Mg Capsule 600 Mg PO 0800,1500,2200 TAKES 2 (300 MG) CAPSULES Instructions to patient/family Please see electronic discharge instructions given to patient. Clinical Quality Measures AMI/AHF: ASA po Prior to arrival: Yes DVT/VTE Risk/Contraindication: Risk Factor Score Per Nursin RFS Level Per Nursing on Admit: 4+=Very High MARIIA SIM DO Jul 07, 2017 18:37
== END 2017-07-06 13:57 | disposition home or self-care (01) | DRG 313 ==
LOC: EDUNIT# 20:35 → ER 20:36 → ICU 21:55 → UNDOADMOB 21:55 → ICU 23:15 → 4TH 07-03 12:25 → OBSVTOIN 07-05 14:30 → UNDODISIN 07-06 13:57
PROVIDERS: ADMIT Internal Medicine; ATTEND Internal Medicine
DX: R07.89 Other chest pain (principal); N17.9 Acute kidney failure, unspecified; I11.0 Hypertensive heart disease with heart failure; I50.42 Chronic combined systolic (congestive) and diastolic (congestive) heart failure; J06.9 Acute upper respiratory infection, unspecified; D64.9 Anemia, unspecified; E11.319 Type 2 diabetes mellitus with unspecified diabetic retinopathy without macular edema; E11.43 Type 2 diabetes mellitus with diabetic autonomic (poly)neuropathy; I73.9 Peripheral vascular disease, unspecified; I25.10 Atherosclerotic heart disease of native coronary artery without angina pectoris; G47.33 Obstructive sleep apnea (adult) (pediatric); F41.9 Anxiety disorder, unspecified; I65.23 Occlusion and stenosis of bilateral carotid arteries; E78.5 Hyperlipidemia, unspecified; N52.1 Erectile dysfunction due to diseases classified elsewhere; E66.9 Obesity, unspecified; Z68.38 Body mass index [BMI] 38.0-38.9, adult; Z95.5 Presence of coronary angioplasty implant and graft; Z79.84 Long term (current) use of oral hypoglycemic drugs
CPT/HCPCS: 36415; 71045; 71046; 80048; 80053; 80061; 81000; 82575; 82962; 83605; 83690; 83735; 83874; 83880; 84156; 84484; 85007; 85025; 85027; 85379; 85610; 85652; 85730; 87040; 87804; 93005; 93041; 93306; 96372; 96374

== ENCOUNTER → 2017-07-11 | Outpatient (CLI) | payer BC ==
[~2017-07-11] MED LIST changes: +ATOR10TA PO; +FURO40TA4 PO; +GLIM2TAB PO
[2017-07-11 12:12] LABS: BUN/CREATININE RATIO 23; CARBON DIOXIDE 28 MMOL/L (21-32); CHLORIDE 107 MMOL/L (98-107); CREATININE SERUM 1.02 MG/DL (0.60-1.30); GFR ESTIMATED > 60; GLUCOSE 133 MG/DL (70-105); SODIUM 143 MMOL/L (135-145)
== END ==
LOC: LAB 11:34
PROVIDERS: ATTEND Family Medicine
DX: E11.9 Type 2 diabetes mellitus without complications (principal); N28.9 Disorder of kidney and ureter, unspecified; R60.0 Localized edema
CPT/HCPCS: 36415; 80048

== ENCOUNTER → 2017-07-18 | Outpatient (CLI) | payer BC ==
[2017-07-18 09:19] LABS: ALBUMIN 3.6 GM/DL (3.2-4.5); BILIRUBIN,TOTAL 0.5 MG/DL (0.1-1.0); CALCIUM 9.1 MG/DL (8.5-10.1); CREATININE SERUM 1.59 MG/DL (0.60-1.30); POTASSIUM 4.8 MMOL/L (3.6-5.0); TOTAL PROTEIN 6.3 GM/DL (6.4-8.2)
== END ==
LOC: LAB 08:27
PROVIDERS: ATTEND Family Medicine
DX: E11.9 Type 2 diabetes mellitus without complications (principal); N28.9 Disorder of kidney and ureter, unspecified
CPT/HCPCS: 36415; 80053

== ENCOUNTER 2017-08-07 13:22 | Emergency (ER) | payer BC ==
[~2017-08-07] VITALS: Ht 180.3 cm; Wt 112.5 kg
--- OUTSIDE RECORDS SUMMARY | 2017-08-07 13:27 | XMS REPORT | Clinical Summary ---
Author Author [facility] Organization [facility] Address Unknown Phone Unavailable Care Team Providers Care Senior Reservations Agent Name Role Phone PCP Unavailable Source Comments Some departments are not documenting in the electronic medical record. 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
--- NOTE | 2017-08-07 14:17 | ED Lower Extremity ---
General Chief Complaint: Lower Extremity Stated Complaint: FALL/R LEG INJ Nursing Triage Note: c/o pain to right knee and ankle/foot. Pt fell in his house at 2100 yesterday. Hx of diabetic neuropathy. Nursing Sepsis Screen: No Definite Risk Source: patient Exam Limitations: no limitations, other (diabetic neuropathy) History of Present Illness Date Seen by Provider: Aug 07, 2017 Time Seen by Provider: 14:13 Initial Comments 52-year-old male presents after he inadvertently fell sustaining injuries to his right knee foot and ankle. The patient's injury occurred at his home yesterday. The patient is complicated by the fact that he has diabetic neuropathy. Patient is having moderate pain in his right knee. He states that his right ankle and foot feel" not right". Allergies and Home Medications Allergies Coded Allergies: No Known Drug Allergies (Unverified , 06/20/17) Home Medications Aspirin 81 Mg Tablet.dr, 81 MG PO DAILY, (Reported) Atorvastatin Calcium 10 Mg Tablet, 10 MG PO DAILY Prescribed by: KAREN YANG on 07/04/17 0906 Clopidogrel Bisulfate 75 Mg Tablet, 75 MG PO DAILY, (Reported) Furosemide 40 Mg Tablet, 40 MG PO BID, (Reported) Gabapentin 300 Mg Capsule, 600 MG PO 0800,1500,2200, (Reported) TAKES 2 (300 MG) CAPSULES Glimepiride 2 Mg Tablet, 2 MG PO DAILY, (Reported) Metoprolol Tartrate 50 Mg Tablet, 50 MG PO BID, (Reported) Constitutional: No chills, No fever EENTM: No ear pain Respiratory: No cough, No short of breath Cardiovascular: No chest pain Gastrointestinal: No diarrhea, No nausea, No vomiting Musculoskeletal: see HPI, joint pain (right knee ankle and foot.) Skin: no symptoms reported Psychiatric/Neurological: No Symptoms Reported, Numbness, Pre-Existing Deficit (diabetic neuropathy) Past Eiuflet-Rymnkk-Eybsom Hx Patient Social History Alcohol Use: Denies Use Recreational Drug Use: No Smoking Status: Never a Smoker 2nd Hand Smoke Exposure: No Recent Foreign Travel: No Contact w/Someone Who Travel: No Recent Infectious Disease Expo: No Recent Hopitalizations: Yes Immunizations Up To Date Tetanus Booster (TDap): Unknown Date of Pneumonia Vaccine: Jun 16, 2015 Date of Influenza Vaccine: Jun 20, 2017 Seasonal Allergies Seasonal Allergies: No Surgeries History of Surgeries: Yes (NASAL POLYPS REMOVED CHILD, CARDIAC CATH-NO INTERVENTION) Surgeries: Cardiac, Coronary Stent, Nose Respiratory History of Respiratory Disorde: Yes Respiratory Disorders: Sleep Apnea Currently Using CPAP: Yes Currently Using BIPAP: No Cardiovascular History of Cardiac Disorders: Yes (PAD) Cardiac Disorders: Cardiomyopathy, Coronary Artery Disease, Hypertension, Irregular Heartbeat, Peripheral Vascular Neurological History of Neurological Disord: Yes (NEUROPATHY IN LEGS/ FEET) Neurological Disorders: Neuropathy Reproductive System Hx Reproductive Disorders: Yes (E.D.) Sexually Transmitted Disease: No HIV/AIDS: No Genitourinary History of Genitourinary Disor: No Gastrointestinal History of Gastrointestinal Di: Yes Gastrointestinal Disorders: Chronic Diarrhea Musculoskeletal History of Musculoskeletal Dis: No Endocrine History of Endocrine Disorders: Yes Endocrine Disorders: Diabetes, Non-Insulin dep HEENT History of HEENT Disorders: No Cancer History of Cancer: No Psychosocial History of Psychiatric Problem: Yes Behavioral Health Disorders: Anxiety Integumentary History of Skin or Integumenta: No Blood Transfusions History of Blood Disorders: No Adverse Reaction to a Blood Tr: No Reviewed Nursing Assessment Reviewed/Agree w Nursing PMH: Yes Family Medical History Significant Family History: No Pertinent Family Hx Family Medial History: Arthritis G8 BROTHER (knee replacement) Cardiovascular disease 19 FATHER (chf) Deafness or hearing loss 19 MOTHER (vertigo) Diabetes mellitus 19 MOTHER Prostate cancer 19 FATHER Physical Exam Vital Signs Vital Signs - First Documented 08/07/17 13:50 Temp 96.4 Pulse 70 Resp 16 B/P (MAP) 139/81 (100) Pulse Ox 98 Capillary Refill : Less Than 3 Seconds General Appearance: WD/WN, no apparent distress HEENT: normal ENT inspection Neck: normal inspection Cardiovascular: normal peripheral pulses, regular rate, rhythm Respiratory: lungs clear, normal breath sounds, no respiratory distress Gastrointestinal: normal bowel sounds, non tender, soft Back: normal inspection Knees: right knee normal inspection, right knee pain Ankles: right ankle non-tender, right ankle swelling Feet: right foot non-tender, right foot swelling Neurologic/Psychiatric: no motor/sensory deficits, alert, normal mood/affect, oriented x 3 Skin: normal color, warm/dry Progress/Results/Core Measures Results/Orders My Orders Orders - FLORENTIN HICKMAN MD Knee, Right, 3 Views (08/07/17 13:57) Ankle, Right, 3 Views (08/07/17 13:57) Foot, Right, 3 View (08/07/17 13:57) Vital Signs/I&O Vital Sign - Last 12Hours 08/07/17 13:50 Temp 96.4 Pulse 70 Resp 16 B/P (MAP) 139/81 (100) Pulse Ox 98 Blood Pressure Mean: 100 Progress Note : Time: 14:58 Progress Note X-rays films demonstrate evidence of fracture dislocation of the right knee ankle and foot. The patient was able to weight bear. I discussed the findings with the patient and he will follow-up with his physician for further evaluation tomorrow. Departure Impression Impression: Primary Impression: Sprain of knee Qualified Codes: S83.91XA - Sprain of unspecified site of right knee, initial encounter Additional Impression: Sprain and strain of foot Disposition: 01 HOME, SELF-CARE Condition: Unchanged Departure-Patient Inst. Decision time for Depature: 14:59 Referrals: MARIIA SIM DO (PCP/Family) Primary Care Physician Patient Instructions: Ankle Sprain (DC), Knee Sprain (DC) Add. Discharge Instructions: Follow-up with Dr. Sim tomorrow. Ice and elevation tonight. Return if any problems or questions. All discharge instructions reviewed with patient and /or family. Voiced understanding. FLORENTIN HICKMAN MD Aug 07, 2017 14:17
--- NOTE | 2017-08-07 14:38 | Diagnostic Imaging Report ---
INDICATION: Fall with right ankle pain. FINDINGS: AP, oblique, and lateral views of the right ankle reveal no definite fracture or malalignment. There is mild marginal spurring about the ankle joint with extensive atherosclerotic calcifications noted. There is also prominent plantar calcaneal spur. IMPRESSION: Mild degenerative changes in the ankle without acute osseous abnormality detected. Dictated by: Dictated on workstation # [id number]
--- NOTE | 2017-08-07 14:39 | Diagnostic Imaging Report ---
EXAMINATION: Right knee at 2:31 p.m. INDICATION: Knee pain. Three views were obtained. There are no prior studies available for comparison. FINDINGS: There is no fracture, dislocation, or acute bony abnormality evident. The knee joint is fairly well maintained. The soft tissues are unremarkable. IMPRESSION: There is no evidence for an acute bony abnormality. Dictated by: Dictated on workstation # [id number]
--- NOTE | 2017-08-07 14:40 | Diagnostic Imaging Report ---
INDICATION: Fall with right foot pain. FINDINGS: AP, oblique, and lateral views of the right foot are obtained. There is no acute fracture or malalignment identified. There is mild joint space narrowing and marginal spurring at the level of the first metatarsophalangeal joint with prominent plantar calcaneal spurring. There is also moderate atherosclerotic calcification. IMPRESSION: Degenerative findings without acute right foot abnormality detected. Dictated by: Dictated on workstation # [id number]
[2017-08-07 15:05] VITALS: BP 132/80
== END 2017-08-07 15:05 | disposition home or self-care (01) ==
LOC: EDUNIT# 13:22 → ER 13:23
DX: S83.91XA Sprain of unspecified site of right knee, initial encounter (principal); I10 Essential (primary) hypertension; F41.9 Anxiety disorder, unspecified; E11.40 Type 2 diabetes mellitus with diabetic neuropathy, unspecified; I25.10 Atherosclerotic heart disease of native coronary artery without angina pectoris; G47.30 Sleep apnea, unspecified; Z79.82 Long term (current) use of aspirin; Z79.84 Long term (current) use of oral hypoglycemic drugs; Z95.5 Presence of coronary angioplasty implant and graft; W19.XXXA Unspecified fall, initial encounter; Y92.009 Unspecified place in unspecified non-institutional (private) residence as the place of occurrence of the external cause
CPT/HCPCS: 73562; 73610; 73630

== ENCOUNTER → 2017-08-08 | Outpatient (CLI) | payer BC ==
[2017-08-08 09:46] LABS: HEMOGLOBIN 11.1 G/DL (13.3-17.7); MEAN PLATELET VOLUME 10.6 FL (7.4-10.4); RED BLOOD COUNT 4.11 10^6/uL (4.35-5.85); RED CELL DISTRIBUTION WIDTH 14.3 % (10.0-14.5); WHITE BLOOD COUNT 6.4 10^3/uL (4.3-11.0)
[2017-08-08 10:02] LABS: CREATININE SERUM 1.51 MG/DL (0.60-1.30); POTASSIUM 5.4 MMOL/L (3.6-5.0)
== END ==
LOC: LAB 09:28
PROVIDERS: ATTEND Family Medicine
DX: E11.9 Type 2 diabetes mellitus without complications (principal); D64.9 Anemia, unspecified
CPT/HCPCS: 36415; 80048; 85027

== ENCOUNTER → 2017-08-15 | Outpatient (CLI) | payer BC ==
[2017-08-15 09:07] LABS: ALBUMIN 3.7 GM/DL (3.2-4.5); BILIRUBIN,TOTAL 0.4 MG/DL (0.1-1.0); CALCIUM 9.1 MG/DL (8.5-10.1); CREATININE SERUM 1.8 MG/DL (0.60-1.30); POTASSIUM 4.7 MMOL/L (3.6-5.0); TOTAL PROTEIN 6.1 GM/DL (6.4-8.2)
== END ==
LOC: LAB 08:35
PROVIDERS: ATTEND Family Medicine
DX: E11.9 Type 2 diabetes mellitus without complications (principal); N28.9 Disorder of kidney and ureter, unspecified
CPT/HCPCS: 36415; 80053

== ENCOUNTER → 2017-08-22 | Outpatient (CLI) | payer BC ==
[2017-08-22 11:06] LABS: BUN/CREATININE RATIO 45; CALCIUM 9.2 MG/DL (8.5-10.1); CARBON DIOXIDE 29 MMOL/L (21-32); CHLORIDE 107 MMOL/L (98-107); GFR ESTIMATED > 60; GLUCOSE 119 MG/DL (70-105); POTASSIUM 4.3 MMOL/L (3.6-5.0); SODIUM 141 MMOL/L (135-145)
--- NOTE | 2017-08-22 13:26 | Diagnostic Imaging Report ---
PROCEDURE: MRI left upper extremity without contrast. TECHNIQUE: Multiplanar, multisequence non contrast-enhanced MRI of the left upper extremity was accomplished. INDICATION: Shoulder pain. COMPARISON: There are no prior studies available for comparison. FINDINGS: On the T2 fat-saturated coronal series, there is a vague area of increased signal within the substance of the musculotendinous portion of the supraspinatus muscle as it courses over the humeral head. This may be related to small partial tear. The bursal aspect of the rotator cuff is also indistinct and I suspect that this portion of the cuff is frayed and/or partially torn as well. The supraspinatus muscle itself is not retracted or bunched. There is hypertrophy of the acromioclavicular joint and this does result in narrowing of the outlet for the supraspinatus muscle. The biceps tendon and the subscapularis tendon are intact. The labrum is thinned posteriorly and most likely torn on a degenerative basis. There is a small joint effusion present. There is no abnormal signal arising from the osseous structures to suggest bone edema or fracture. IMPRESSION: 1. There is tendinosis of the musculotendinous portion of the supraspinatus muscle and there is a small partial tear of the bursal aspect of the rotator cuff. The supraspinatus muscle however itself is not retracted. 2. There is hypertrophy of the acromioclavicular joint. This does result in narrowing of the outlet for the supraspinatus muscle. 3. The labrum is thinned posteriorly and probably torn on a degenerative basis. 4. There is no sign of an acute bony abnormality. Dictated by: Dictated on workstation # [id number]
== END ==
LOC: RAD 10:34
PROVIDERS: ATTEND Family Medicine
DX: M75.82 Other shoulder lesions, left shoulder (principal); M75.112 Incomplete rotator cuff tear or rupture of left shoulder, not specified as traumatic; M89.312 Hypertrophy of bone, left shoulder; M62.89 Other specified disorders of muscle; E11.9 Type 2 diabetes mellitus without complications
CPT/HCPCS: 36415; 73221; 80048

== ENCOUNTER → 2017-10-31 | Outpatient (CLI) | payer BC ==
[~2017-10-31] MED LIST changes: -METF1000 PO; +METF10002 PO
--- NOTE | 2017-10-31 09:38 | Diagnostic Imaging Report ---
PROCEDURE: MR imaging cervical spine without contrast. TECHNIQUE: Multiplanar/multisequence MR imaging of the cervical spine was performed without contrast. The study is compromised due to patient body habitus as well as a large amount of motion artifact on the exam. The patient was unable to lie still. INDICATION: Left-sided body weakness. COMPARISON: No prior studies available for comparison. FINDINGS: There is straightening of the normal cervical lordotic curvature. The vertebral body marrow signal is normal. No geographic marrow lesion is seen. There is multilevel degenerative disc disease with variable disc space narrowing and marginal spurring. The cervical cord demonstrates normal homogeneous signal intensity and normal morphology. C2-3: No significant central canal or neuroforaminal stenosis is identified. C3-4: A broad-based disc/osteophyte complex indents the ventral thecal sac producing moderate central canal stenosis. There also appears to be moderate right and perhaps mild left neuroforaminal stenosis. C4-5: A broad-based disc/osteophyte complex indents the ventral thecal sac producing mild central canal narrowing. There appears to moderate left and mild right neuroforaminal stenosis. C5-6: A broad-based disc/osteophyte complex indents the ventral thecal sac. This results in moderate central canal and significant bilateral neuroforaminal stenosis. C6-7: A left para-midline disc bulge is present. There is also a disc/osteophyte complex noted. There is moderate bilateral neuroforaminal stenosis due to uncovertebral joint degenerative change. C7-T1: Unremarkable. IMPRESSION: Multilevel cervical spondylosis with multilevel central canal and neuroforaminal stenosis as described level by level above. There is a left para-midline disc bulge at the C6-7 level as well. Dictated by: Dictated on workstation # [id number]
== END ==
LOC: RAD 07:37
PROVIDERS: ATTEND Nurse Practitioner Family
DX: M48.02 Spinal stenosis, cervical region (principal); M99.71 Connective tissue and disc stenosis of intervertebral foramina of cervical region; M47.812 Spondylosis without myelopathy or radiculopathy, cervical region; M50.223 Other cervical disc displacement at C6-C7 level; M50.321 Other cervical disc degeneration at C4-C5 level
CPT/HCPCS: 72141

== ENCOUNTER 2018-01-23 11:44 | Outpatient (CLI) | payer BC ==
[~2018-01-23] VITALS: Ht 180.3 cm; Wt 130.6 kg
[2018-01-23 11:55] VITALS: BP 135/84
[2018-01-23] MEDS ORDERED: AMLO5TAB2 PO (12:11)
[2018-01-23] MEDS ORDERED: TRAM50TA2 PO (12:11)
[2018-01-23] MEDS ORDERED: FURO20TA4 PO (12:11)
[2018-01-23] MEDS ORDERED: GLIM4TAB PO (12:11)
[2018-01-23] MEDS ORDERED: FEXO-192 PO (12:11)
[2018-01-23] MEDS ORDERED: LOSA100T28 PO (12:11)
[2018-01-23] MEDS ORDERED: ROSU5TAB12 PO (12:11)
[2018-01-23 12:47] LABS: BASOPHILS % (AUTO) 1 % (0-10); EOSINOPHILS # (AUTO) 0.4 10^3/uL (0.0-0.3); EOSINOPHILS % (AUTO) 6 % (0-10); HEMATOCRIT 32 % (40-54); HEMOGLOBIN 10.9 G/DL (13.3-17.7); LYMPHOCYTES # (AUTO) 1.2 X 10^3 (1.0-4.0); LYMPHOCYTES % (AUTO) 16 % (12-44); MEAN CORPUSCULAR HEMOGLOBIN 29 PG (25-34); MEAN CORPUSCULAR HGB CONC 35 G/DL (32-36); MEAN CORPUSCULAR VOLUME 83 FL (80-99); MEAN PLATELET VOLUME 10.2 FL (7.4-10.4); MONOCYTES # (AUTO) 0.5 X 10^3 (0.0-1.0); MONOCYTES % (AUTO) 7 % (0-12); NEUTROPHILS # (AUTO) 5.4 X 10^3 (1.8-7.8); NEUTROPHILS % (AUTO) 72 % (42-75); PLATELET COUNT 221 10^3/uL (130-400); RED BLOOD COUNT 3.81 10^6/uL (4.35-5.85); RED CELL DISTRIBUTION WIDTH 12.8 % (10.0-14.5); WHITE BLOOD COUNT 7.6 10^3/uL (4.3-11.0)
[2018-01-23 13:01] LABS: CALCIUM 9.1 MG/DL (8.5-10.1); CREATININE SERUM 1.9 MG/DL (0.60-1.30); POTASSIUM 4.8 MMOL/L (3.6-5.0)
== END 2018-01-23 12:35 | disposition home or self-care (01) ==
LOC: PREOP 11:44
PROVIDERS: ATTEND Orthopaedic Surgery
DX: Z01.812 Encounter for preprocedural laboratory examination (principal); Z11.2 Encounter for screening for other bacterial diseases; G95.9 Disease of spinal cord, unspecified
CPT/HCPCS: 36415; 80048; 85025; 86850; 86900; 86901; 87081

== ENCOUNTER 2018-01-30 10:00 | Inpatient (IN) | payer BC ==
[~2018-01-30] VITALS: Ht 180.3 cm; Wt 136.1 kg
[2018-01-30] VITALS (10 sets, daily range): BP systolic 128–170; BP diastolic 67–96
[~2018-01-30 10:00] MED LIST changes: +AMLO5TAB7 PO; +FEXO-192 PO; +GLIM4TAB PO; -LOSA100T28 PO; +LOSA100T8 PO; +METF-399 PO; -METF10002 PO; +ROSU5TAB12 PO; +TRAM50TA2 PO
--- OUTSIDE RECORDS SUMMARY | 2018-01-30 11:25 | XMS REPORT | Clinical Summary ---
Author Author [facility] Organization [facility] Address Unknown Phone Unavailable Care Team Providers Care Beam House Inspector Name Role Phone PCP Unavailable Source Comments Some departments are not documenting in the electronic medical record. If you do not see the information that you expected, contact Release of Information in the Health Information Management department at [phone] for further assistance in locating additional records.[facility] Allergies No Known Allergies Current Medications [...] Taken Blood Pressure 118/79 05/03/2016 1:44 PM [facility] Pulse 92 05/03/2016 1:44 PM [facility] Temperature - - Respiratory Rate - - Oxygen Saturation - - Inhaled Oxygen - - Concentration Weight 111.6 kg (246 lb) 05/03/2016 1:44 PM [facility] Height 180.3 cm (5' 11") 05/03/2016 1:44 PM [facility] Body Mass Index 34.31 05/03/2016 1:44 PM [facility] Plan of Treatment Health Maintenance Due Date Last Done Comments PHYSICAL (COMPREHENSIVE) 1973 EXAM PERTUSSIS VACCINE 1977 HIV SCREENING 1981 TETANUS VACCINE 1983 COLORECTAL CANCER 01/30/2016 SCREENING SHINGLES RECOMBINANT 01/30/2016 VACCINE (1 of 2) INFLUENZA VACCINE 03/13/2018 Results Not on filefrom Last 3 Months
[2018-01-30] MEDS ORDERED: fentaNYL INJECTION 100 MCG/2 ML AMP ONE ×2 (11:43→14:39)
[2018-01-30] MEDS ORDERED: MIDAZOLAM 2 MG/2 ML (VERSED) VIAL ONE (11:44)
[2018-01-30] MEDS ORDERED: SCOPOLAMINE 1.5 MG (TRANSDERM-SCOP) PATCH TOP ONE (11:45)
[2018-01-30] MEDS ORDERED: ONDANSETRON 4 MG/2 ML (SDV) Z0FRAN IV ONE (11:45)
[2018-01-30] MEDS ORDERED: FAMOTIDINE 20MG/2ML IV (PEPCID) IV ONE (11:45)
[2018-01-30] MEDS ORDERED: ceFAZolin 2 GM IV Premixed 50 ML ONE (11:56)
[2018-01-30] MEDS ORDERED: BACITRACIN 100,000 UNIT/NS 1000 ML POUR BOTTLE IR ONE ×2 (12:15)
[2018-01-30] MEDS ORDERED: ceFAZolin 2 GM/50 ML PRE-MIX IVPB IV ONE (12:15)
[2018-01-30] MEDS ORDERED: ceFAZolin 2 GM IV Premixed 50 ML IV ONE (12:15)
[2018-01-30] MEDS ORDERED: DEXMEDETOMIDINE 200 MCG/2 ML (PRECEDEX) VIAL IV ONE (13:41)
[2018-01-30] MEDS ORDERED: SEVOFLURANE (ULTANE) 15 ML INHAL SOLN ONE ×4 (14:34→15:49)
[2018-01-30] MEDS ORDERED: proPOfol 200 MG/20 ML (DIPRIVAN) VIAL IV ONE (14:35)
[2018-01-30] MEDS ORDERED: LIDOCAINE PF 2% 5 ML (XYLOCAINE) VIAL ONE (14:35)
[2018-01-30] MEDS ORDERED: ONDANSETRON 4 MG/2 ML (SDV) Z0FRAN ONE (14:35)
[2018-01-30] MEDS ORDERED: SUCCINYLCHOLINE INJ 100 MG/5 ML SYR ONE (14:37)
[2018-01-30] MEDS: LACTATED RINGERS 1,000 ML IV PRN ×2 (15:15→18:15)
[2018-01-30] MEDS ORDERED: MEPERIDINE (DEMEROL) INJ 50 MG/ML IVP PRN (16:30)
[2018-01-30] MEDS ORDERED: PROMETHAZINE INJ 25 MG/ML (PHENERGAN) AMP IVP PRN (16:30)
[2018-01-30] MEDS ORDERED: DOCUSATE SODIUM 100 MG (COLACE) CAP PO PRN (16:30)
[2018-01-30] MEDS ORDERED: ONDANSETRON 4 MG/2 ML (SDV) Z0FRAN IV PRN (16:30)
[2018-01-30] MEDS ORDERED: ONDANSETRON 4 MG/2 ML (SDV) Z0FRAN IVP PRN (16:30)
[2018-01-30] MEDS ORDERED: morphine INJ 10 MG/ML 1ML (SYR OR VIAL) IM PRN (16:30)
[2018-01-30] MEDS ORDERED: CYCLOBENZAPRINE 10 MG (FLEXERIL) TAB PO PRN (16:30)
[2018-01-30] MEDS ORDERED: fentaNYL INJECTION 100 MCG/2 ML AMP IVP PRN (16:30)
[2018-01-30] MEDS ORDERED: oxyCODONE/APAP 5/325MG (PERCOCET 5) TABLET PO PRN (16:30)
[2018-01-30] MEDS ORDERED: MILK OF MAGNESIA 400 MG/5 ML 30 ML UDC PO PRN (16:30)
[2018-01-30] MEDS ORDERED: HYDROmorphone 2 MG/ML VIAL (DILAUDID) ONE (16:41)
[2018-01-30] MEDS: HYDROmorphone 2 MG/ML VIAL (DILAUDID) IV PRN ×2 (16:48→16:58)
--- NOTE | 2018-01-30 17:00 | Diagnostic Imaging Report ---
INDICATION: Neck pain. FINDINGS: Limited intraoperative views were obtained during discectomy and fusion with a portable intensifier. 26 seconds of fluoroscopy time was used in Surgery. The alignment appears anatomic on these limited views. IMPRESSION: Intraoperative fluoroscopy was used during anterior discectomy and fusion. The alignment is anatomic. Dictated by: Dictated on workstation # [id number]
[2018-01-30] MEDS: LORATADINE (CLARITIN) 10 MG TAB PO SCH (18:21)
[2018-01-30] MEDS: FUROSEMIDE 20 MG (LASIX) TAB PO SCH (18:21)
[2018-01-30] MEDS: GLIMEPIRIDE 2 MG (AMARYL) TAB PO SCH (18:21)
[2018-01-30] MEDS: FAMOTIDINE 20 MG (PEPCID) TABLET PO SCH (19:03)
[2018-01-30] MEDS: ceFAZolin INJECTION 1,000 MG in NS (IVPB) 50 ML IV SCH (20:25)
[2018-01-30] MEDS: HYDROcodone/APAP 5 MG/325 MG (LORTAB) TAB PO PRN (20:26)
[2018-01-30] MEDS: SENNOSIDES 8.6 MG (SENOKOT) TAB PO SCH (20:27)
[2018-01-30] MEDS: meTOprolol TARTRATE 50 MG (LOPRESSOR) TAB PO SCH (20:27)
[2018-01-30] MEDS: ROSUVASTATIN 5 MG (CRESTOR) TABLET PO SCH (20:27)
[2018-01-30] MEDS: GABAPENTIN 600 MG (NEURONTIN) TAB PO SCH (21:38)
[2018-01-31] VITALS: BP 134/74
--- NOTE | 2018-01-31 01:00 | OPERATIVE REPORT ---
DATE OF SERVICE: 01/30/2018 SURGEON: Chris Hardwick DO. ELECTRICAL TECH/PROJECT MANAGER: Jose Ruelas. This is a medically necessary procedure. Assistance was necessary for retraction of vital neurovascular structures. Without an library serials assistant, the procedure would not be possible. PREOPERATIVE DIAGNOSES: 1. Cervical myelopathy. 2. Cervical radiculopathy. 3. Cervical stenosis (central, bony, connective tissue). POSTOPERATIVE DIAGNOSES: 1. Cervical myelopathy. 2. Cervical radiculopathy. 3. Cervical stenosis (central, bony, connective tissue). PROCEDURE PERFORMED: 1. C3-C4, C4-C5, C5-C6, C6-C7 anterior cervical diskectomy and fusion. 2. Application of PEEK cages C3-C4, C6-C7. 3. Application of corpectomy cage C4-C6. 4. Application of anterior instrumentation C3-C7. 5. Use of human Allograft for spine. 6. Use of local bone autograft. 7. C5 corpectomy. COMPLICATIONS: None. SPECIMEN SENT: None. ANESTHESIA: General endotracheal tube anesthesia. ESTIMATED BLOOD LOSS: See anesthesia records. HISTORY OF PRESENT ILLNESS: The patient is a very pleasant 53-year-old gentleman who presented to me with severe myelopathy. He had an MRI demonstrating multilevel central severe stenosis. He did fail conservative measures and wished to proceed with operative intervention. DESCRIPTION OF PROCEDURE: The patient was identified by name on wrist band in the preoperative holding area. The operative site was signed, consent was signed. SCDs were placed. Neuromonitoring was hooked up and antibiotics were started. He was taken to the operating room theater and placed under general endotracheal tube anesthesia and transferred to the operating room table in the supine position. He was prepped and draped in usual sterile fashion. Formal timeout was conducted. An incision was then made over the medial aspect of the left sternocleidomastoid. I then proceeded with a standard anterior cervical approach exposing the C3-C4 disk space. I then placed Sebewaing distraction across that disk space. I placed a self-retaining retractor. I then performed an annulotomy followed by complete diskectomy. Then, I took down the posterior longitudinal ligament, performed bilateral foraminotomies. I then sized and chose the appropriate PEEK titanium cage that was packed with human allograft and local bone autograft. I seated it into the C3-C4 disk space and then turned my attention to C4-C5. We repeated this process, performed a complete diskectomy, took down the posterior longitudinal ligament. I then repeated this process at C5-C6, took out the disk, took down the posterior longitudinal ligament, performed foraminotomies. I then corpectomized the body of C5. I completely removed the body of C5 as well as the posterior longitudinal ligament. I then sized and chose the appropriate PEEK corpectomy spacer packed with human allograft and local bone autograft and I seated it into the void in the spinal column. I then turned my attention to the C6-C7 level. The patient's body habitus made this quite difficult; however, I was able to perform a complete diskectomy and I sized and chose the appropriate height titanium cage packed with human allograft and local bone autograft and I seated it in the midline position. I then obtained a plate, placed in the midline position and I placed screws into the bodies of C3, C4, C6 and then C7. Final AP and lateral x-ray demonstrated appropriate positioning of the hardware. I maintained hemostasis, irrigated the wound thoroughly, placed a deep drain alongside the plate, which I sewed into place. I then closed the wound in my usual layered fashion utilizing 3-0 Vicryl followed by running 3-0 subcuticular stitch. I applied dressings, took the patient in the supine position to the PACU where he awoke without incident. He tolerated the procedure well. PLAN: At this time, is to admit the patient overnight for IV antibiotics, IV pain control postop monitoring. I will get the patient out of bed this evening with his . I will discontinue his drain and his Castillo catheter per my protocol. Job ID: [id number] DocumentID: [id number] Dictated Date: 01/30/2018 15:56:37 Market Research Consultant Date: 01/31/2018 01:00:17 Dictated By: CHRIS HARDWICK DO
[2018-01-31 04:00] VITALS: BP 179/86
[2018-01-31] MEDS: ceFAZolin INJECTION 1,000 MG in NS (IVPB) 50 ML IV SCH ×2 (04:26→12:55)
[2018-01-31] MEDS: FAMOTIDINE 20 MG (PEPCID) TABLET PO SCH ×2 (04:26→16:40)
[2018-01-31] MEDS: GLIMEPIRIDE 4 MG (AMARYL) TAB PO SCH (05:47)
[2018-01-31] MEDS: MULTIVIT W/MINERALS TAB (THERAGRAN M) PO SCH (05:47)
[2018-01-31] MEDS: HYDROcodone/APAP 5 MG/325 MG (LORTAB) TAB PO PRN ×2 (05:47→14:27)
[2018-01-31] MEDS: FUROSEMIDE 40 MG (LASIX) TAB PO SCH (05:47)
--- NOTE | 2018-01-31 06:50 | Progress Note (SOAP) ---
Subjective Date Seen by Provider: Jan 31, 2018 Time Seen by Provider: 06:45 Subjective/Events-last exam POD #1 s/p ACDF with corpectomy. Is resting in bed comfortably. C/o irritation from the catheter as well as drainage. Denies UE pain, n/t, sob, f/ v or cp Objective Exam Vital Signs Date Time Temp Pulse Resp B/P (MAP) Pulse Ox O2 Delivery O2 Flow Rate FiO2 01/31/18 04:00 99.5 90 14 179/86 (117) 99 Nasal Cannula 4.00 01/31/18 01:57 99 Nasal Cannula 4.00 01/31/18 00:00 98.9 77 12 134/74 (94) 93 Nasal Cannula 4.00 01/30/18 21:51 98 NIV CPAP 4.00 01/30/18 21:00 91 22 170/96 (120) 98 Nasal Cannula 4.00 01/30/18 21:00 Nasal Cannula 4.00 01/30/18 20:30 85 20 152/89 (110) 99 Nasal Cannula 4.00 01/30/18 20:00 84 18 150/84 (106) 97 Nasal Cannula 4.00 01/30/18 19:30 70 18 152/78 (102) 94 Nasal Cannula 4.00 01/30/18 19:00 74 18 159/77 (104) 99 Nasal Cannula 4.00 01/30/18 18:50 96 Nasal Cannula 4.00 01/30/18 18:45 69 16 142/68 (92) 99 Nasal Cannula 4.00 01/30/18 18:30 67 18 128/70 (89) 99 Nasal Cannula 4.00 01/30/18 18:15 67 20 140/77 (98) 96 Nasal Cannula 4.00 01/30/18 18:00 65 18 141/76 (97) 98 Nasal Cannula 4.00 01/30/18 17:34 97.4 65 18 138/67 (90) 98 Nasal Cannula 4.00 01/30/18 11:20 Room Air I & O 01/31/18 06:59 Intake Total 2220 ml Output Total 1600 ml Balance 620 ml Capillary Refill : General Appearance: No Apparent Distress Neck: Normal Inspection; No JVD Respiratory: No Accessory Muscle Use, No Respiratory Distress Neurologic/Psychiatric: Alert, Oriented x3, No Motor/Sensory Deficits Results Lab Laboratory Tests 01/30/18 11:50: Glucometer 248H 01/31/18 05:27: Glucometer 206H Assessment/Plan Assessment/Plan Assess & Plan/Chief Complaint assessment: pod #1 s/p acdf dm cad htn plan: oob with collar IS at bedside calf scd for dvt prophylaxis will add ssi with achs bgl checks ua with culture october d/c jarrett after ua cipro cervical x-ray today will contact Dr Younger this am d/p drain Clinical Quality Measures DVT/VTE Risk/Contraindication: Risk Factor Score Per Nursin RFS Level Per Nursing on Admit: 2=Moderate CASS WALTER Jan 31, 2018 06:50
[2018-01-31 08:00] VITALS: BP 144/71
--- NOTE | 2018-01-31 08:05 | Consultation ---
History of Present Illness History of Present Illness Patient Consulted On(rehana/time) 01/31/18 07:58 Time Seen by Provider: 08:00 History of Present Illness Patient states he had surgery yesterday. Remove the disc sciatica neck and put spaces same. Past history patient [place] had torn rotator cuff and seen orthopedic. Orthopedic felt it was in the neck and sent to neurosurgeon Dr. Hardwick. Previous surgery heart stent, polyps from knows age 12. Family history mother diabetic, father of heart disease. 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 Ag for that Allergies and Home Medications Allergies Coded Allergies: No Known Drug Allergies (Unverified , 01/30/18) Home Medications Amlodipine Besylate 5 Mg Tablet, 5 MG PO DAILY, (Reported) Aspirin 81 Mg Tablet.dr, 81 MG PO DAILY, (Reported) Clopidogrel Bisulfate 75 Mg Tablet, 75 MG PO DAILY, (Reported) Fexofenadine HCl 180 Mg Tablet, 180 MG PO DAILY@1700, (Reported) Furosemide 40 Mg Tablet, 40 MG PO DAILY, (Reported) Furosemide 20 Mg Tablet, 20 MG PO DAILY@1700, (Reported) Gabapentin 300 Mg Capsule, 600 MG PO 0800,1500,2200, (Reported) TAKES 2 (300 MG) CAPSULES Glimepiride 2 Mg Tablet, 2 MG PO DAILY@1700, (Reported) Glimepiride 4 Mg Tablet, 4 MG PO DAILY, (Reported) Losartan Potassium 100 Mg Tablet, 100 MG PO DAILY, (Reported) Metoprolol Tartrate 50 Mg Tablet, 50 MG PO BID, (Reported) Rosuvastatin Calcium 5 Mg Tablet, 5 MG PO HS, (Reported) Tramadol HCl 50 Mg Tablet, 50-100 MG PO Q6H PRN for PAIN-MILD TO MODERATE, ( Reported) take 1-2 (50mg) tabs Patient Home Medication List Home Medication List Reviewed: Yes Past Mqrzlxj-Onfrbd-Ebiekk Hx Patient Social History Alcohol Use: Denies Use Recreational Drug Use: No Smoking Status: Never a Smoker 2nd Hand Smoke Exposure: No Recent Foreign Travel: No Contact w/Someone Who Travel: No Recent Infectious Disease Expo: No Recent Hopitalizations: No Immunizations Up To Date Tetanus Booster (TDap): Unknown Date of Pneumonia Vaccine: Jun 16, 2015 Date of Influenza Vaccine: Jun 20, 2017 Seasonal Allergies Seasonal Allergies: No Past Medical History Surgeries: Yes (NASAL POLYPS REMOVED CHILD, heart cath x2,cystoscopy ) Cardiac, Coronary Stent, Nose Respiratory: Yes Sleep Apnea Currently Using CPAP: Yes Currently Using BIPAP: No Cardiac: Yes (PAD, stent placed in 06/30) Cardiomyopathy, Coronary Artery Disease, Hypertension, Irregular Heartbeat, Peripheral Vascular Neurological: Yes (NEUROPATHY IN LEGS/ FEET) Neuropathy Reproductive Disorders: Yes (E.D.) Sexually Transmitted Disease: No HIV/AIDS: No Genitourinary: No Gastrointestinal: No Chronic Diarrhea Musculoskeletal: Yes Arthritis, Chronic Back Pain Endocrine: Yes Diabetes, Non-Insulin dep HEENT: No Cancer: No Psychosocial: Yes Anxiety Integumentary: No Blood Disorders: No Adverse Reaction/Blood Tranf: No Family Medical History Arthritis G8 BROTHER (knee replacement) Cardiovascular disease 19 FATHER (chf) Deafness or hearing loss 19 MOTHER (vertigo) Diabetes mellitus 19 MOTHER Prostate cancer 19 FATHER No Pertinent Family Hx Review of Systems-General Constitutional: no symptoms reported EENTM: no symptoms reported, hoarseness Respiratory: no symptoms reported Cardiovascular: no symptoms reported Gastrointestinal: no symptoms reported Genitourinary: other (Feels like passing pus) Physical Exam-General Problems Physical Exam Vital Signs Vital Signs - First Documented 01/30/18 01/30/18 11:20 17:34 Temp 97.4 Pulse 65 Resp 18 B/P (MAP) 138/67 (90) Pulse Ox 98 O2 Delivery Room Air O2 Flow Rate 4.00 Capillary Refill : General Appearance: WD/WN, no apparent distress Eyes: Bilateral Eye Normal Inspection HEENT: other (Has cervical collar on yesterday neck surgery) Neck: other Respiratory: no respiratory distress, no accessory muscle use Cardiovascular: regular rate, rhythm, no murmur Gastrointestinal: non tender, soft Assessment/Plan Assessment/Plan Admission Diagnosis/Plan Mild opacity. Cervical surgery. Diabetes. Coronary artery disease. Diabetic retinopathy Admission Status: Inpatient Order (span 2 midnights) Reason for Inpatient Admission: Neurosurgery done Clinical Quality Measures DVT/VTE Risk/Contraindication: Risk Factor Score Per Nursin RFS Level Per Nursing on Admit: 2=Moderate MARIIA SIM DO Jan 31, 2018 08:05
[2018-01-31] MEDS: SENNOSIDES 8.6 MG (SENOKOT) TAB PO SCH ×2 (08:57→21:04)
[2018-01-31] MEDS: meTOprolol TARTRATE 50 MG (LOPRESSOR) TAB PO SCH ×2 (08:57→21:03)
[2018-01-31] MEDS: CIPROFLOXACIN 500 MG (CIPRO) TABLET PO SCH ×2 (08:57→21:03)
[2018-01-31] MEDS: amLODIPine 5 MG (NORVASC) TAB PO SCH (08:57)
[2018-01-31] MEDS: GABAPENTIN 600 MG (NEURONTIN) TAB PO SCH ×3 (08:57→21:04)
[2018-01-31] MEDS ORDERED: LOSARTAN 100 MG (COZAAR) TABLET PO SCH (09:00)
[2018-01-31] MEDS: MILK OF MAGNESIA 400 MG/5 ML 30 ML UDC PO SCH (09:02)
--- NOTE | 2018-01-31 09:42 | Diagnostic Imaging Report ---
INDICATION: Postop cervical fusion.. TECHNIQUE: AP and lateral views of the cervical spine 9:10 AM. CORRELATION STUDY: None FINDINGS: Postop change of the anterior cervical decompression and fusion with anterior plate and screws at the C3-C7 level. Antecubital disc space devices at C3-C4 and C6-C7 disc spaces. There is bridging of the C5 vertebral body with a spacer device present. The overall alignment is straightened but otherwise anatomic. No definitive hardware defect. Hypertrophic facet arthropathy present. Nonfused segments demonstrate trace anterolisthesis of C3 on C4. Drainage tubing is present. IMPRESSION: 1. Surgical change in anterior cervical decompression fusion extending from C3-C7. Alignment appearing to be anatomic. Dictated by: Dictated on workstation # [id number]
[2018-01-31 09:49] LABS: BILIRUBIN,URINE NEGATIVE (NEGATIVE); CLARITY,URINE SLIGHTLY CLOUDY; COLOR,URINE YELLOW; GLUCOSE, URINE (UA) 2+ (NEGATIVE); KETONES,URINE NEGATIVE (NEGATIVE); LEUKOCYTE ESTERASE ,URINE 3+ (NEGATIVE); NITRITE,URINE NEGATIVE (NEGATIVE); PH,URINE 5 (5-9); PROTEIN,URINE 3+ (NEGATIVE); UROBILINOGEN,URINE NORMAL (NORMAL)
--- NOTE | 2018-01-31 09:50 | Physical Therapy Evaluation ---
PT Evaluation-General Medical Diagnosis Admission Date Jan 30, 2018 at 11:15 Medical Diagnosis: myelopathy Onset Date: Jan 30, 2018 Therapy Diagnosis Therapy Diagnosis: generalized weakness/debility Height/Weight Height (Feet): 5 Height (Inches): 11.00 Weight (Pounds): 288 Weight (Ounces): 0.0 Precautions Precautions/Isolations: Standard Precautions Weight Bear Status Right Lower Extremity: Right Full Weight Bearing Left Lower Extremity: Left Full Weight Bearing Referral Physician: Ronen Reason for Referral: Evaluation/Treatment Medical History Pertinent Medical History: CAD, DM, Heart Failure, HTN, Neuropathy, PVD Additional Medical History obesity Current History s/p ACDF with corpectomy Reviewed History: Yes Social History Home: Single Level Current Living Status: Alone Prior/Core FIM Prior Level of Function Functional [place] Measure 0=Not Assessed/NA 4=Minimal Assistance 1=Total Assistance 5=Supervision or Setup 2=Maximal Assistance 6=Modified [place] 3=Moderate Assistance 7=Complete [place] Bed Mobility: 6 Transfers (B,C,W/C) (FIM): 6 Gait: 6 cane or FWW PLOF PT Evaluation-Current Subjective Patient reluctantly agrees to PT. Pain Numeric Pain Scale: 8 Location: Soft Tissue Location Body Site: Neck Pain Description: Acute Objective Patient Orientation: Normal For Age Problem Solving: Fair Attachments: Castillo Catheter ROM/Strength ROM Lower Extremities bilateral LE WNL Strength Lower Extremities 4/5 grossly bilaterally Integumentary/Posture Integumentary refer to nursing notes Bowel Incontinence: No Bladder Incontinence: Castillo Cath Posture WFL Neuromuscular (Tone, Coordination, Reflexes) grossly intact Sensory Vision: Wears Glasses Hearing: Functional Sensation Right Lower Extremit: Impaired Sensation Left Lower Extremity: Impaired Transfers Functional [place] Measure 0=Not Assessed/NA 4=Minimal Assistance 1=Total Assistance 5=Supervision or Setup 2=Maximal Assistance 6=Modified [place] 3=Moderate Assistance 7=Complete [place] Transfers (B, C, W/C) (FIM): 5 Scootin Rollin Supine to/from Sit: 5 Sit to/from Stand: 5 Gait Mode of Locomotion: Walk Anticipated Mode of Locomotion: Walk Gait (FIM): 5 Distance (FIM): 3=150 ft Distance: 250' Gait Level of Assist: 5 Gait Assistive Device: FWW Comments/Gait Description slow, safe and functional Balance Sitting Static: Normal Sitting Dynamic: Normal Standing Static: Normal Standing Dynamic: Normal Assessment/Needs 53 y.o. male, will be seen short term to address functional mobility to improve current LOF. PT encouraged patient to ambulate PRN in hallway to promote healing. Patient voices understanding. Rehab Potential: Fair PT Short Term Goals Short Term Goals Time Frame: Feb 04, 2018 Transfers (B,C,W/C) (FIM): 6 Gait (FIM): 6 Distance (FIM): 3=150 ft Gait Level of Assist: 6 Gait Assistive Device: FWW, Cane Single Point PT Plan Treatment/Plan Treatment Plan: Continue Plan of Care Treatment Plan: Education, Functional Activity [place], Functional Strength, Gait , Safety, Therapeutic Exercise Treatment Duration: Feb 04, 2018 Frequency: 5 times per week Estimated Hrs Per Day: .25 hour per day Patient and/or Family Agrees t: Yes Discharge Recommendations Therapy D/C Recommendations: Home Independently Time/GCodes Time In: 910 Time Out: 925 Total Billed Treatment Time: 15 Total Billed Treatment 1 visit EVModC 15 min G Codes Necessary: No MARK RAMIREZ PT Jan 31, 2018 09:50
[2018-01-31 10:00] LABS: BACTERIA,URINE TRACE /HPF; SQUAMOUS EPITHELIAL CELL,UR RARE /HPF
[2018-01-31] MEDS: inSUlin ASPART (NovoLOG) 1 UNIT/0.01 ML (CHARGE PER UNIT) SC SCH ×3 (10:24→18:28)
[2018-01-31 12:00] VITALS: BP 154/75
--- NOTE | 2018-01-31 12:30 | Anesthesia-General Post-Op ---
General Patient Condition Mental Status/LOC: Same as Preop Cardiovascular: Satisfactory Nausea/Vomiting: Absent Respiratory: Satisfactory Pain: Controlled Complications: Absent Post Op Complications Complications None Follow Up Care/Instructions Patient Instructions None needed. Anesthesia/Patient Condition Patient Condition Patient is doing well, no complaints, stable vital signs, no apparent adverse anesthesia problems. No complications reported per nursing. ZELDA NORTON CRNA Jan 31, 2018 12:30
[2018-01-31] MEDS: ACETAMINOPHEN 325 MG TABLET PO PRN (13:01)
--- NOTE | 2018-01-31 16:22 | Occupational Therapy Eval ---
OT Evaluation-General/PLF Medical Diagnosis Admission Date Jan 30, 2018 at 11:15 Medical Diagnosis: myelopathy Onset Date: Jan 30, 2018 Therapy Diagnosis Therapy Diagnosis: decreased elf care, decreased funct mobility, weakness Height/Weight Height (Feet): 5 Height (Inches): 11.00 Weight (Pounds): 288 Weight (Ounces): 0.0 Precautions Precautions/Isolations: Standard Precautions Safety Interventions: None Referral Physician: Ronen Referral Reason: Evaluation/Treatment Medical History Pertinent Medical History: Arthritis, CAD, DM, Heart Failure, HTN, Neuropathy, PVD Additional Medical History Cardiac stents. Diabetic retinopathy, sleep apnea, CPAP, Cardiomegaly. Neuropathy both feet sna legs. Chronic back pain. Anxiety. Obesity. Pt reported frozen shoulder L in August, wtih PT. Current History Elective discectomy and fusion, C3-C7. Neck brace on when up out of bed. 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 His son helps with laundry and he does cooking, cleaning. Son does yard work. 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 OT Current Status Subjective Pt seen in room, up in bed, agreeable to OT. Pt did not mentioned pain. Appearance Alert, cooperative Mental Status/Objective Attachments: Castillo Catheter, IV, Oxygen Current Glasses/Contacts: Yes Upper Extremity ROM Grossly WFL bilat Upper Extremity Sensation pt reported numbness L ring and little fingers is better since surgery. Upper Extremity Strength grossly 4/5 bilat ADL-Treatment ADL-Current He was able to transfer with SBA with PT and walked 250 feet with SBA and FWW. Able to feed himself. He was currently concerned about chest pain. pt encouraged to walk with physician regarding driving after surgery and use of soft cervical collar Functional [place] Measure 0=Not Assessed/NA 4=Minimal Assistance 1=Total Assistance 5=Supervision or Setup 2=Maximal Assistance 6=Modified [place] 3=Moderate Assistance 7=Complete IndependenceIRFPAI Quality Coding Scale 6 Independent with activity with or without an assistive device 5 Patient requires set up or clean up by helper. Patient completes activity by themselves 4 Supervision or touching assist (CGA). [place] provide cues , steadying assist 3 The helper provides less than half the effort to complete the activity 2 The helper provides more than half the effort to complete the activity 1 Dependent. The helper does all the effort to complete an activity 7 Patient refused to complete or attempt activity 9 The patient did not perform the activity before the current illness or injury 88 Not attempted due to Medical conditions or safety concerns Education OT Patient Education: Purpose of tx/functional activities, Rehab process Teaching Recipient: Patient Teaching Methods: Discussion Response to Teaching: Verbalize Understanding OT Public Relations Professional Goals Residential Goals Time Frame: Feb 04, 2018 Grooming(FIM): 6 Bathing(FIM): 5 Upper Body Dressing(FIM): 6 Lower Body Dressing(FIM): 5 Toileting(FIM): 6 Toilet/Commode Transfer(FIM): 6 Shower Transfer(FIM): 5 Additional Goals: 1-Demonstrate ADL Tasks, 2-Verbalize Understanding, 3- ImproveStrength/[place] 1=Demonstrate adherence to instructed precautions during ADL tasks. 2=Patient will verbalize/demonstrate understanding of assistive devices/ modifications for ADL. 3=Patient will improve strength/tolerance for activity to enable patient to perform ADL's. OT Education/Plan Problem List/Assessment Assessment: Decreased UE Strength, Dependent Transfers, Impaired Self-Care Skills Pt would benefit from skilled OT to increase his independence in basic self care to allow him to safely return home. Discharge Recommendations Plan/Recommendations: Continue POC Treatment Plan/Plan of Care Treatment,Training & Education: Yes Patient would benefit from OT for education, treatment and training to promote independence in ADL's, mobility, safety and/or upper extremity function for ADL' s. Plan of Care: ADL Retraining, Functional Mobility, UE Funct Exercise/Act, UE Neuromus Re-Ed/Coord Treatment Duration: Feb 04, 2018 Frequency: 5 times per week Estimated Hrs Per Day: .5 hour per day Agreement: Yes Rehab Potential: Good Time/GCodes Start Time: 15:50 Stop Time: 16:05 Total Time Billed (hr/min): 15 Billed Treatment Time visit, 15 minutes evaluation low intensity ROBERTO HUNTER OT Jan 31, 2018 16:22
[2018-01-31 16:24] LABS: HEMOGLOBIN 9.9 G/DL (13.3-17.7); MEAN PLATELET VOLUME 10.6 FL (7.4-10.4); RED BLOOD COUNT 3.49 10^6/uL (4.35-5.85); RED CELL DISTRIBUTION WIDTH 13.2 % (10.0-14.5); WHITE BLOOD COUNT 11.8 10^3/uL (4.3-11.0)
[2018-01-31 16:30] VITALS: BP 151/74
[2018-01-31 16:34] LABS: CALCIUM 8.6 MG/DL (8.5-10.1); CREATININE SERUM 1.85 MG/DL (0.60-1.30); MAGNESIUM 2.4 MG/DL (1.8-2.4); POTASSIUM 5.2 MMOL/L (3.6-5.0)
[2018-01-31] MEDS: FUROSEMIDE 20 MG (LASIX) TAB PO SCH (16:40)
[2018-01-31] MEDS: GLIMEPIRIDE 2 MG (AMARYL) TAB PO SCH (16:40)
[2018-01-31] MEDS: LORATADINE (CLARITIN) 10 MG TAB PO SCH (16:40)
--- NOTE | 2018-01-31 17:14 | Consultation-Cardiology ---
HPI-Cardiology Cardiology Consultation Date of Consultation 01/31/18 Date of Admission Time Seen by Provider: 17:09 Indication: chest pain HPI 53 years old gentleman with history of coronary artery disease, underwent cervical spine surgery yesterday, was recovering slowly, while he was walking in the hallway started having chest pain described as dull achiness in the retrosternal area associated with feeling tired and loss of energy, reported improvement after sitting down. Currently he is chest pain-free, no palpitation , no syncope or near syncopal episode, still complaining of weakness and loss of energy Home Medications & Allergies Allergies: Coded Allergies: No Known Drug Allergies (Unverified , 01/30/18) Home Medication List Reviewed: Yes MII-Oglncw-Oexmbj Hx Patient Social History Marital Status: Employed/Student: employed Alcohol Use: Denies Use Recreational Drug Use: No Smoking Status: Never a Smoker 2nd Hand Smoke Exposure: No Recent Foreign Travel: No Recent Infectious Disease Expo: No Recent Hopitalizations: No Physical Abuse Screen: No Sexual Abuse: No Immunizations Up To Date Tetanus Booster (TDap): Unknown Date of Pneumonia Vaccine: Jun 16, 2015 Date of Influenza Vaccine: Jun 20, 2017 Past Medical History Past medical history as described below Family Medical History Significant Family History: No Pertinent Family Hx Family History: Arthritis G8 BROTHER (knee replacement) Cardiovascular disease 19 FATHER (chf) Deafness or hearing loss 19 MOTHER (vertigo) Diabetes mellitus 19 MOTHER Prostate cancer 19 FATHER Constitutional: see HPI, malaise, weakness EENTM: see HPI, no symptoms reported Respiratory: see HPI; No cough, No dyspnea on exertion, No hemoptysis, No orthopnea, No phlegm, No short of breath, No stridor, No wheezing, No other Cardiovascular: no symptoms reported, see HPI, chest pain; No edema, No Hx of Intervention, No palpitations, No syncope, No vascular heart diseas, No other Gastrointestinal: no symptoms reported, see HPI Genitourinary: no symptoms reported, see HPI Musculoskeletal: see HPI, back pain, joint pain Skin: no symptoms reported, see HPI Psychiatric/Neurological: No Symptoms Reported, See HPI Reviewed Test Results Reviewed Test Results Lab Laboratory Tests Test 01/31/18 05:27 01/31/18 09:35 01/31/18 10:11 01/31/18 15:54 Range/Units Glucometer 206 H 315 H 70-110 MG/DL Urine Color YELLOW Urine Clarity SLIGHTLY CLOUDY Urine pH 5 5-9 Urine Specific [place] 1.015 L 1.016-1.022 Urine Protein 3+ H NEGATIVE Urine Glucose (UA) 2+ H NEGATIVE Urine Ketones NEGATIVE NEGATIVE Urine Nitrite NEGATIVE NEGATIVE Urine Bilirubin NEGATIVE NEGATIVE Urine Urobilinogen NORMAL NORMAL MG/DL Urine Leukocyte Esterase 3+ H NEGATIVE Urine RBC (Auto) 5+ H NEGATIVE Urine RBC 2-5 H /HPF Urine WBC 10-25 H /HPF Urine Squamous Epithelial Cells RARE /HPF Urine Crystals NONE /LPF Urine Bacteria TRACE /HPF Urine Casts PRESENT /LPF Urine Hyaline Casts 2-5 H /LPF Urine Mucus NEGATIVE /LPF Urine Culture Indicated YES White Blood Count 11.8 H 4.3-11.0 10^3/uL Red Blood Count 3.49 L 4.35-5.85 10^6/uL Hemoglobin 9.9 L 13.3-17.7 G/DL Hematocrit 30 L 40-54 % Mean Corpuscular Volume 87 80-99 FL Mean Corpuscular Hemoglobin 28 25-34 PG Mean Corpuscular Hemoglobin Concent 33 32-36 G/DL Red Cell Distribution Width 13.2 10.0-14.5 % Platelet Count 209 130-400 10^3/uL Mean Platelet Volume 10.6 H 7.4-10.4 FL Sodium Level 135 135-145 MMOL/L Potassium Level 5.2 H 3.6-5.0 MMOL/L Chloride Level 104 98-107 MMOL/L Carbon Dioxide Level 23 21-32 MMOL/L Anion Gap 8 5-14 MMOL/L Blood Urea Nitrogen 56 H 7-18 MG/DL Creatinine 1.85 H 0.60-1.30 MG/DL Estimat Glomerular Filtration Rate 39 BUN/Creatinine Ratio 30 Glucose Level 246 H 70-105 MG/DL Calcium Level 8.6 8.5-10.1 MG/DL Magnesium Level 2.4 1.8-2.4 MG/DL Troponin I < 0.30 <0.30 NG/ML Physical Exam Vital Signs Vital Signs - First Documented 01/30/18 01/30/18 11:20 17:34 Temp 97.4 Pulse 65 Resp 18 B/P (MAP) 138/67 (90) Pulse Ox 98 O2 Delivery Room Air O2 Flow Rate 4.00 Capillary Refill : Height, Weight, BMI Height: 5'11.00" Weight: 288lbs. 0.0oz. 130.975842mu; 40.2 BMI Method:Stated General Appearance: WD/WN, Mild Distress Eyes: Bilateral Eye Normal Inspection, Bilateral Eye PERRL, Bilateral Eye EOMI HEENT: PERRL/EOMI, TMs Normal, Normal ENT Inspection, Pharynx Normal Neck: Carotid Bruit, Other (had neck surgery) Respiratory: Chest Non Tender, Lungs Clear, Normal Breath Sounds, No Accessory Muscle Use, No Respiratory Distress Cardiovascular: Regular Rate, Rhythm, No Edema, No Gallop, No JVD, No Murmur, Normal Peripheral Pulses Gastrointestinal: Normal Bowel Sounds, No Organomegaly, No Pulsatile Mass, Non Tender, Soft Back: Normal Inspection, No CVA Tenderness, No Vertebral Tenderness Extremity: Normal Capillary Refill, Normal Inspection, Normal Range of Motion, Non Tender, No Calf Tenderness, No Pedal Edema Neurologic/Psychiatric: Alert, Oriented x3, No Motor/Sensory Deficits, Normal Mood/Affect Skin: Normal Color, Warm/Dry Lymphatic: No Adenopathy A/P-Cardiology Admission Diagnosis Chest pain nonspecific etiology Coronary artery disease Spinal stenosis Hypertension Assessment/Plan Chest pain nonspecific etiology, EKG did not show any acute abnormality, chronic enzymes has been negative. I will continue monitoring Spinal stenosis, status post cervical spine surgery done by Dr. Hardwick. Recovering slowly. Hyperkalemia, monitor electrolytes. Coronary artery disease, history of cardiac catheterization done by Dr. Longoria which showed mild nonobstructive disease repeat cardiac catheterization done in 2017 showing severe stenosis in the mid LAD successful stenting using Alpine 3.0 18 mm stent expanded to 3.25 mm with good results, mild to moderate disease in the proximal portion of the LAD, moderate disease in the distal circumflex artery. Carotid artery stenosis-mild nonobstructive disease per carotid duplex done July 2017, continue to monitor Diabetes mellitus, managed by Dr. Younger. Diabetic neuropathy, followed and managed by Dr. Younger. Hypertension, continue to monitor blood pressure Chronic renal insufficiency, continue to monitor renal function Hyperlipidemia, intolerant to Lipitor with severe diarrhea. I will try low dose Crestor 5 mg daily and evaluate tolerance and response History of erectile dysfunction, most likely secondary to peripheral neuropathy. Lower extremity pain, likely secondary to neuropathy, patient underwent peripheral angiogram done February 09, 2016 revealing mild to moderate disease in the anterior tibial of the left lower extremity and posterior tibial at 60-70 percent. Anterior tibial with good flow down to the ankle on the left lower extremity, otherwise mild disease in the right lower extremity and abdominal aorta. Continue maximizing medical therapy Clinical Quality Measures DVT/VTE Risk/Contraindication: Risk Factor Score Per Nursin RFS Level Per Nursing on Admit: 2=Moderate KAREN YANG MD Jan 31, 2018 17:14
[2018-01-31 20:30] VITALS: BP 130/75
[2018-01-31] MEDS: ROSUVASTATIN 5 MG (CRESTOR) TABLET PO SCH (21:04)
[2018-02-01] VITALS: BP 150/84
[2018-02-01 04:00] VITALS: BP 149/74
[2018-02-01] MEDS: ACETAMINOPHEN 325 MG TABLET PO PRN ×2 (04:10→16:00)
[2018-02-01] MEDS: FAMOTIDINE 20 MG (PEPCID) TABLET PO SCH ×2 (04:11→16:03)
[2018-02-01 06:18] LABS: HEMOGLOBIN 9.2 G/DL (13.3-17.7); RED BLOOD COUNT 3.22 10^6/uL (4.35-5.85); RED CELL DISTRIBUTION WIDTH 13.1 % (10.0-14.5); WHITE BLOOD COUNT 12.5 10^3/uL (4.3-11.0)
[2018-02-01] MEDS: MULTIVIT W/MINERALS TAB (THERAGRAN M) PO SCH (06:27)
[2018-02-01] MEDS: FUROSEMIDE 40 MG (LASIX) TAB PO SCH (06:27)
[2018-02-01] MEDS: GLIMEPIRIDE 4 MG (AMARYL) TAB PO SCH (06:30)
[2018-02-01] MEDS: inSUlin ASPART (NovoLOG) 1 UNIT/0.01 ML (CHARGE PER UNIT) SC SCH ×4 (06:30→20:03)
[2018-02-01 06:46] LABS: ALBUMIN 3.6 GM/DL (3.2-4.5); BILIRUBIN,TOTAL 0.6 MG/DL (0.1-1.0); CALCIUM 8.7 MG/DL (8.5-10.1); CREATININE SERUM 2.2 MG/DL (0.60-1.30); POTASSIUM 5.4 MMOL/L (3.6-5.0); TOTAL PROTEIN 6.2 GM/DL (6.4-8.2)
[2018-02-01 08:00] VITALS: BP 128/59
--- NOTE | 2018-02-01 08:03 | Progress Note (SOAP) ---
Subjective Time Seen by Provider: 08:00 Subjective/Events-last exam Patient had chest pain yesterday which resolved today area Troponin normal. Nurse states patient yesterday had confusion. Patient is morning coherent. Patient states she's weak today and unable to get around take care of himself at home. Patient lives alone part of week another part has his son age 16 at home. Patient to be observed today. Diabetes. Renal insufficiency. Coronary artery disease. Hyperkalemia potassium is increasing to 5.4 Objective Exam Vital Signs Date Time Temp Pulse Resp B/P (MAP) Pulse Ox O2 Delivery O2 Flow Rate FiO2 02/01/18 04:44 99.6 02/01/18 04:44 99.6 02/01/18 04:10 100.0 02/01/18 04:00 100.9 94 14 149/74 (99) 90 Nasal Cannula 4.00 02/01/18 02:50 18 91 Nasal Cannula 4.00 02/01/18 01:00 100 02/01/18 00:17 92 4.00 02/01/18 00:00 101.5 101 14 150/84 (106) 92 Nasal Cannula 4.00 01/31/18 21:29 91 Room Air 2.00 01/31/18 20:30 99.5 102 20 130/75 (93) 91 Nasal Cannula 2.00 01/31/18 19:00 93 01/31/18 16:30 99.8 87 20 151/74 (99) 94 Nasal Cannula 4.00 01/31/18 16:08 91 01/31/18 15:05 99.5 01/31/18 14:27 100.5 01/31/18 13:01 100.0 01/31/18 12:00 100.1 91 20 154/75 (101) 98 Nasal Cannula 4.00 01/31/18 10:14 92 Room Air 01/31/18 08:40 96 Room Air 01/31/18 08:00 99.3 88 20 144/71 (95) 96 Nasal Cannula 4.00 I & O 02/01/18 07:00 Intake Total 2450 ml Output Total 2600 ml Balance -150 ml Capillary Refill : General Appearance: No Apparent Distress, WD/WN HEENT: Normal ENT Inspection Neck: Other (Cervical collar) Respiratory: Lungs Clear, No Accessory Muscle Use, No Respiratory Distress Cardiovascular: Regular Rate, Rhythm, No Murmur Gastrointestinal: non tender, soft Results Lab Laboratory Tests 01/31/18 15:54 02/01/18 05:15 Laboratory Tests 01/31/18 09:35: Urine Color YELLOW, Urine Clarity SLIGHTLY CLOUDY, Urine pH 5, Urine Specific [place] 1.015L, Urine Protein 3+H, Urine Glucose (UA) 2+H, Urine Ketones NEGATIVE, Urine Nitrite NEGATIVE, Urine Bilirubin NEGATIVE, Urine Urobilinogen NORMAL, Urine Leukocyte Esterase 3+H, Urine RBC (Auto) 5+H, Urine RBC 2-5H, Urine WBC 10-25H, Urine Squamous Epithelial Cells RARE, Urine Crystals NONE, Urine Bacteria TRACE, Urine Casts PRESENT, Urine Hyaline Casts 2-5H, Urine Mucus NEGATIVE, Urine Culture Indicated YES 01/31/18 10:11: Glucometer 315H 01/31/18 15:54: White Blood Count 11.8H, Red Blood Count 3.49L, Hemoglobin 9.9L, Hematocrit 30L , Mean Corpuscular Volume 87, Mean Corpuscular Hemoglobin 28, Mean Corpuscular Hemoglobin Concent 33, Red Cell Distribution Width 13.2, Platelet Count 209, Mean Platelet Volume 10.6H, Sodium Level 135, Potassium Level 5.2H, Chloride Level 104, Carbon Dioxide Level 23, Anion Gap 8, Blood Urea Nitrogen 56H, Creatinine 1.85H, Estimat Glomerular Filtration Rate 39, BUN/Creatinine Ratio 30 , Glucose Level 246H, Calcium Level 8.6, Magnesium Level 2.4, Troponin I < 0.30 01/31/18 18:22: Glucometer 267H 01/31/18 20:52: Glucometer 247H 02/01/18 05:15: White Blood Count 12.5H, Red Blood Count 3.22L, Hemoglobin 9.2L, Hematocrit 28L , Mean Corpuscular Volume 87, Mean Corpuscular Hemoglobin 29, Mean Corpuscular Hemoglobin Concent 33, Red Cell Distribution Width 13.1, Platelet Count 197, Mean Platelet Volume 11.0H, Sodium Level 138, Potassium Level 5.4H, Chloride Level 105, Carbon Dioxide Level 25, Anion Gap 8, Blood Urea Nitrogen 60H, Creatinine 2.20H, Estimat Glomerular Filtration Rate 32, BUN/Creatinine Ratio 27 , Glucose Level 275H, Calcium Level 8.7, Corrected Calcium 9.0, Total Bilirubin 0.6, Aspartate Amino Transf (AST/SGOT) 21, Alanine Aminotransferase (ALT/SGPT) 14, Alkaline Phosphatase 80, Total Protein 6.2L, Albumin 3.6, Thyroid Stimulating Hormone (TSH) 0.32L 02/01/18 05:21: Glucometer 275H Microbiology 01/31/18 Genital Culture - Preliminary, Resulted Sent To [facility] 01/30/18 MRSA Screen - Final, Complete MRSA not isolated 01/31/18 Urine Culture - Preliminary, Resulted Sent To [facility] Assessment/Plan Assessment/Plan Assess & Plan/Chief Complaint Mild opacity. Cervical surgery. Diabetes. Coronary artery disease. Diabetic retinopathy. . 02/01/18. Myelopathy. Diabetes. Hyperkalemia. Coronary artery disease. Diabetes. Diabetic neuropathy. Confusion yesterday. Weakness yesterday Clinical Quality Measures DVT/VTE Risk/Contraindication: Risk Factor Score Per Nursin RFS Level Per Nursing on Admit: 2=Moderate MARIIA SIM DO Feb 01, 2018 08:03
--- NOTE | 2018-02-01 08:47 | Cardiology Progress Note ---
Subjective Date Seen by Provider: Feb 01, 2018 Time Seen by Provider: 08:42 Subjective/Events-last exam Patient is in bed, complaining of fatigue and loss of energy, occasional chest pain Review of Systems General: No Chills, No Night Sweats, No Fatigue, No Malaise, No Appetite, No Other HEENT: No Head Aches, No Visual Changes, No Eye Pain, No Ear Pain, No Dysphasia , No Sinus Congestion, No Post Nasal Drip, No Sore Throat, No Other Pulmonary: Dyspnea; No Cough, No Pleuritic Chest Pain, No Other Cardiovascular: No: Chest Pain, Palpitations, Orthopnea, Paroxysmal Noc. Dyspnea, Edema, Lt Headedness, Other Objective-Cardiology Exam Last Set of Vital Signs Vital Signs 02/01/18 04:00 Pulse 94 Resp 14 B/P (MAP) 149/74 (99) Pulse Ox 90 O2 Delivery Nasal Cannula O2 Flow Rate 4.00 Capillary Refill : I&O Intake and Output 02/01/18 00:00 Intake Total 2500 ml Output Total 2700 ml Balance -200 ml Intake Oral 2450 ml IV Total 50 ml Output Urine Total 2700 ml General: Alert, Oriented X3, Cooperative HEENT: Atraumatic, PERRLA Neck: Supple, No JVD, No Thyromegaly Lungs: Clear to Auscultation, Normal Air Movement Heart: Regular Rate, Normal S1, Normal S2, No Murmurs Abdomen: Normal Bowel Sounds, Soft, No Tenderness, No Hepatosplenomegaly, No Masses Extremities: No Clubbing, No Cyanosis, No Edema, Normal Pulses, No Tenderness/ Swelling Skin: No Rashes, No Breakdown, No Significant Lesion Neuro: Normal Gait, Normal Speech, Strength at 5/5 X4 Ext, Normal Tone, Sensation Intact Psych/Mental Status: Mental Status NL, Mood NL Results Lab Laboratory Tests 01/31/18 15:54 02/01/18 05:15 A/P-Cardiology Admission Diagnosis Chest pain nonspecific etiology Coronary artery disease Spinal stenosis Hypertension Assessment/Plan Chest pain nonspecific etiology, EKG did not show any acute abnormality, Cardiac enzymes are negative, continue to monitor Acute renal failure, history of mild renal insufficiency. At this point I recommend discontinuation of Lasix and losartan and start IV fluid and monitor his renal function closely in addition I recommend discontinuation of Lortab and use Tylenol if possible Leukocytosis, low-grade fever, postoperative day number [address] Hardwick Spinal stenosis, status post cervical spine surgery done by Dr. Hardwick. Recovering slowly. Hyperkalemia, started on IV fluid and I stopped losartan and I will monitor electrolytes Coronary artery disease, history of cardiac catheterization done by Dr. Longoria which showed mild nonobstructive disease repeat cardiac catheterization done in 2017 showing severe stenosis in the mid LAD successful stenting using Alpine 3.0 18 mm stent expanded to 3.25 mm with good results, mild to moderate disease in the proximal portion of the LAD, moderate disease in the distal circumflex artery. Carotid artery stenosis-mild nonobstructive disease per carotid duplex done July 2017, continue to monitor Diabetes mellitus, managed by Dr. Younger. Diabetic neuropathy, followed and managed by Dr. Younger. Hypertension, continue to monitor blood pressure Chronic renal insufficiency, continue to monitor renal function Hyperlipidemia, intolerant to Lipitor with severe diarrhea. I will try low dose Crestor 5 mg daily and evaluate tolerance and response History of erectile dysfunction, most likely secondary to peripheral neuropathy. Lower extremity pain, likely secondary to neuropathy, patient underwent peripheral angiogram done February 09, 2016 revealing mild to moderate disease in the anterior tibial of the left lower extremity and posterior tibial at 60-70 percent. Anterior tibial with good flow down to the ankle on the left lower extremity, otherwise mild disease in the right lower extremity and abdominal aorta. Continue maximizing medical therapy Clinical Quality Measures DVT/VTE Risk/Contraindication: Risk Factor Score Per Nursin RFS Level Per Nursing on Admit: 2=Moderate KAREN YANG MD Feb 01, 2018 08:47
[2018-02-01] MEDS: amLODIPine 5 MG (NORVASC) TAB PO SCH (10:55)
[2018-02-01] MEDS: SENNOSIDES 8.6 MG (SENOKOT) TAB PO SCH ×2 (10:55→20:28)
[2018-02-01] MEDS: GABAPENTIN 600 MG (NEURONTIN) TAB PO SCH ×3 (10:55→20:29)
[2018-02-01] MEDS: CIPROFLOXACIN 500 MG (CIPRO) TABLET PO SCH ×2 (10:56→20:29)
[2018-02-01] MEDS: MILK OF MAGNESIA 400 MG/5 ML 30 ML UDC PO SCH (10:56)
[2018-02-01] MEDS: meTOprolol TARTRATE 50 MG (LOPRESSOR) TAB PO SCH ×2 (10:56→22:26)
[2018-02-01] MEDS: NS IV 1000 ML 1,000 ML IV SCH (11:05)
--- NOTE | 2018-02-01 11:53 | Diagnostic Imaging Report ---
INDICATION: Increased oxygen need. TIME OF EXAM: 9:40 AM Correlation is made with prior study 07/06/2017. FINDINGS: Heart is enlarged, but stable. There is mild bibasilar subsegmental atelectasis. Upper lung kunz are clear. No pneumothorax or pleural fluid is seen. IMPRESSION: Cardiomegaly and bibasilar subsegmental atelectasis. Dictated by: Dictated on workstation # [id number]
[2018-02-01 12:00] VITALS: BP 158/74
--- NOTE | 2018-02-01 13:43 | Progress Note (SOAP) ---
Subjective Date Seen by Provider: Feb 01, 2018 Time Seen by Provider: 13:40 Subjective/Events-last exam POD #2 s/p acdf with coprectomy. Patient confused to surroundings today. Oriented to person day and event. had confusion and chest pain yesterday. Dr Perez was consulted. Patients pain is tolerable but he states he feels to weak to go home. Objective Exam Vital Signs Date Time Temp Pulse Resp B/P (MAP) Pulse Ox O2 Delivery O2 Flow Rate FiO2 02/01/18 12:06 Nasal Cannula 4.00 02/01/18 12:00 99.8 88 20 158/74 (102) 90 Nasal Cannula 4.00 02/01/18 08:00 99.9 87 20 128/59 (82) 93 Nasal Cannula 4.00 02/01/18 07:00 88 02/01/18 04:44 99.6 02/01/18 04:44 99.6 02/01/18 04:10 100.0 02/01/18 04:00 100.9 94 14 149/74 (99) 90 Nasal Cannula 4.00 02/01/18 02:50 18 91 Nasal Cannula 4.00 02/01/18 01:00 100 02/01/18 00:17 92 4.00 02/01/18 00:00 101.5 101 14 150/84 (106) 92 Nasal Cannula 4.00 01/31/18 21:29 91 Room Air 2.00 01/31/18 20:30 99.5 102 20 130/75 (93) 91 Nasal Cannula 2.00 01/31/18 19:00 93 01/31/18 16:30 99.8 87 20 151/74 (99) 94 Nasal Cannula 4.00 01/31/18 16:08 91 01/31/18 15:05 99.5 01/31/18 14:27 100.5 I & O 02/01/18 07:00 Intake Total 2450 ml Output Total 2600 ml Balance -150 ml Capillary Refill : General Appearance: No Apparent Distress Respiratory: No Accessory Muscle Use, No Respiratory Distress Extremity: Normal Capillary Refill, Normal Inspection, No Pedal Edema Neurologic/Psychiatric: Alert, No Motor/Sensory Deficits Skin: Normal Color, Warm/Dry Results Lab Laboratory Tests 01/31/18 15:54: White Blood Count 11.8H, Red Blood Count 3.49L, Hemoglobin 9.9L, Hematocrit 30L , Mean Corpuscular Volume 87, Mean Corpuscular Hemoglobin 28, Mean Corpuscular Hemoglobin Concent 33, Red Cell Distribution Width 13.2, Platelet Count 209, Mean Platelet Volume 10.6H, Sodium Level 135, Potassium Level 5.2H, Chloride Level 104, Carbon Dioxide Level 23, Anion Gap 8, Blood Urea Nitrogen 56H, Creatinine 1.85H, Estimat Glomerular Filtration Rate 39, BUN/Creatinine Ratio 30 , Glucose Level 246H, Calcium Level 8.6, Magnesium Level 2.4, Troponin I < 0.30 01/31/18 18:22: Glucometer 267H 01/31/18 20:52: Glucometer 247H 02/01/18 05:15: White Blood Count 12.5H, Red Blood Count 3.22L, Hemoglobin 9.2L, Hematocrit 28L , Mean Corpuscular Volume 87, Mean Corpuscular Hemoglobin 29, Mean Corpuscular Hemoglobin Concent 33, Red Cell Distribution Width 13.1, Platelet Count 197, Mean Platelet Volume 11.0H, Sodium Level 138, Potassium Level 5.4H, Chloride Level 105, Carbon Dioxide Level 25, Anion Gap 8, Blood Urea Nitrogen 60H, Creatinine 2.20H, Estimat Glomerular Filtration Rate 32, BUN/Creatinine Ratio 27 , Glucose Level 275H, Calcium Level 8.7, Troponin I < 0.30, Corrected Calcium 9.0, Total Bilirubin 0.6, Aspartate Amino Transf (AST/SGOT) 21, Alanine Aminotransferase (ALT/SGPT) 14, Alkaline Phosphatase 80, Total Protein 6.2L, Albumin 3.6, Thyroid Stimulating Hormone (TSH) 0.32L 02/01/18 05:21: Glucometer 275H 02/01/18 11:07: Glucometer 232H Microbiology 01/31/18 Genital Culture - Preliminary, Resulted Sent To [facility] 01/30/18 MRSA Screen - Final, Complete MRSA not isolated 01/31/18 Urine Culture - Preliminary, Resulted Sent To [facility] Assessment/Plan Assessment/Plan Assess & Plan/Chief Complaint assessment: pod #2 s/p acdf dm cad htn titi hyperkalemia plan: continue plan per Dr Younger and Dr Perez monitor labs cxr reviewed, IS at bedside and encouraged oob with collar calf scd for dvt prophylaxis Clinical Quality Measures DVT/VTE Risk/Contraindication: Risk Factor Score Per Nursin RFS Level Per Nursing on Admit: 2=Moderate CASS WALTER Feb 01, 2018 13:43
--- NOTE | 2018-02-01 14:26 | Physical Therapy Daily Note ---
PT Daily Note-Current Subjective Pt. in bed and is anxious to get out of bed. Pt. somewhat confused in his speech, slurred at times Pain Numeric Pain Scale: 2 Location: Medial Location Body Site: Neck Pain Description: Ache Mental Status Patient Orientation: Person, Place, Time, Situation Attachments: Other-See Comments (neck collar), IV Transfers Functional [place] Measure 0=Not Assessed/NA 4=Minimal Assistance 1=Total Assistance 5=Supervision or Setup 2=Maximal Assistance 6=Modified [place] 3=Moderate Assistance 7=Complete IndependenceIRFPAI Quality Coding Scale 6 Independent with activity with or without an assistive device 5 Patient requires set up or clean up by helper. Patient completes activity by themselves 4 Supervision or touching assist (CGA). [place] provide cues , steadying assist 3 The helper provides less than half the effort to complete the activity 2 The helper provides more than half the effort to complete the activity 1 Dependent. The helper does all the effort to complete an activity 7 Patient refused to complete or attempt activity 9 The patient did not perform the activity before the current illness or injury 88 Not attempted due to Medical conditions or safety concerns sup to sit min to CGA, sit to stand from chair 5 trials SBA to CGA, groggy at first then improved. Weight Bearing Right Lower Extremity: Right Full Weight Bearing Left Lower Extremity: Left Full Weight Bearing Gait Training Distance (FIM): 3=150 ft Gait Assistive Device: FWW 150ft with c/o half way that he is tired. no LOB, slow, careful Exercises Supine Ex: Ankle pumps Seated Therapy Exercises: Ankle pumps, Sit to stand, Long arc quads, Hip flexion, Hip abd/add Seated Reps: 20 Treatments gait with FWW, assist for O2, seated LE exercises, many sit to stands to review safety, also breathing inc spir as instructed by who visits briefly during Rx. Pt. also stood for several mins at EOB attempting to urinate but was unable , catheter just out recently Assessment Current Status: Good Progress still fatigues quickly, somewhat confused PT Short Term Goals Short Term Goals Time Frame: Feb 04, 2018 Gait (FIM): 6 Distance (FIM): 3=150 ft Gait Level of Assist: 6 Gait Assistive Device: FWW, Cane Single Point PT Plan Treatment/Plan Treatment Plan: Continue Plan of Care Treatment Plan: Education, Functional Activity [place], Functional Strength, Gait , Safety, Therapeutic Exercise Treatment Duration: Feb 04, 2018 Frequency: 5 times per week Estimated Hrs Per Day: .25 hour per day Patient and/or Family Agrees t: Yes Safety Risks/Education Patient Education: Gait Training, Transfer Techniques, Correct Positioning, Safety Issues Teaching Recipient: Patient Teaching Methods: Demonstration, Discussion Response to Teaching: Verbalize Understanding, Return Demonstration, Reinforcement Needed Time/GCodes Time In: 1315 Time Out: 1345 Total Billed Treatment Time: 30 Total Billed Treatment 1,GT20,EX10 G Codes Necessary: JHON Louise DIRECTOR [employer] Feb 01, 2018 14:26
--- NOTE | 2018-02-01 15:21 | Occ Therapy Progress Note ---
Therapy Progress Note [id number] Pt seen in room, up in recliner, radha. Declined OT, stating he was too tired. Had no ADL needs. Pt left up in recliner, all needs met. visit ROBERTO HUNTER OT Feb 01, 2018 15:21
[2018-02-01 16:34] VITALS: BP 140/76
[2018-02-01] MEDS: LORATADINE (CLARITIN) 10 MG TAB PO SCH (17:25)
[2018-02-01] MEDS: GLIMEPIRIDE 2 MG (AMARYL) TAB PO SCH (17:25)
[2018-02-01 20:25] VITALS: BP 155/79
[2018-02-01] MEDS: ROSUVASTATIN 5 MG (CRESTOR) TABLET PO SCH (20:28)
[2018-02-02] VITALS (15 sets, daily range): BP systolic 112–180; BP diastolic 69–118
[2018-02-02] MEDS: ACETAMINOPHEN 325 MG TABLET PO PRN (00:17)
[2018-02-02] MEDS: NS IV 1000 ML 1,000 ML IV SCH ×3 (00:47→08:20)
[2018-02-02] MEDS: FAMOTIDINE 20 MG (PEPCID) TABLET PO SCH ×2 (04:32→16:15)
[2018-02-02 06:15] LABS: BASOPHILS % (AUTO) 0 % (0-10); EOSINOPHILS # (AUTO) 0.1 10^3/uL (0.0-0.3); EOSINOPHILS % (AUTO) 0 % (0-10); HEMATOCRIT 28 % (40-54); HEMOGLOBIN 9.2 G/DL (13.3-17.7); LYMPHOCYTES # (AUTO) 0.9 X 10^3 (1.0-4.0); LYMPHOCYTES % (AUTO) 6 % (12-44); MEAN CORPUSCULAR HGB CONC 33 G/DL (32-36); MEAN CORPUSCULAR VOLUME 87 FL (80-99); MEAN PLATELET VOLUME 10.7 FL (7.4-10.4); MONOCYTES # (AUTO) 1.2 X 10^3 (0.0-1.0); MONOCYTES % (AUTO) 8 % (0-12); NEUTROPHILS # (AUTO) 13.4 X 10^3 (1.8-7.8); NEUTROPHILS % (AUTO) 86 % (42-75); PLATELET COUNT 205 10^3/uL (130-400); RED BLOOD COUNT 3.23 10^6/uL (4.35-5.85); RED CELL DISTRIBUTION WIDTH 13.1 % (10.0-14.5); WHITE BLOOD COUNT 15.6 10^3/uL (4.3-11.0)
[2018-02-02] MEDS: GLIMEPIRIDE 4 MG (AMARYL) TAB PO SCH (06:21)
[2018-02-02] MEDS: MULTIVIT W/MINERALS TAB (THERAGRAN M) PO SCH (06:21)
[2018-02-02 06:24] LABS: MEAN CORPUSCULAR HEMOGLOBIN 28 PG (25-34)
[2018-02-02 06:39] LABS: BAND NEUTROPHILS 3 %; BASOPHILS % (MANUAL) 0 %; EOSINOPHILS % (MANUAL) 0 %; LYMPHOCYTES % (MANUAL) 6 %; MONOCYTES % (MANUAL) 4 %; NEUTROPHILS % (MANUAL) 87 %; POLYCHROMASIA SLIGHT
[2018-02-02 06:44] LABS: ALBUMIN 3.5 GM/DL (3.2-4.5); BILIRUBIN,TOTAL 0.8 MG/DL (0.1-1.0); CALCIUM 8.6 MG/DL (8.5-10.1); CREATININE SERUM 2.22 MG/DL (0.60-1.30); POTASSIUM 5.3 MMOL/L (3.6-5.0)
[2018-02-02] MEDS: inSUlin ASPART (NovoLOG) 1 UNIT/0.01 ML (CHARGE PER UNIT) SC SCH ×4 (07:02→22:35)
--- NOTE | 2018-02-02 08:09 | Progress Note (SOAP) ---
Subjective Time Seen by Provider: 08:05 Subjective/Events-last exam Patient has periods of confusion. Patient does not know what year it is but knows the president and that 03-14 is. Patient ran an elevated temperature of 101.3. Patient hypertensive. White blood cell count elevated. Shift to the left.. GFR 31. Patient states she's feeling okay Objective Exam Vital Signs Date Time Temp Pulse Resp B/P (MAP) Pulse Ox O2 Delivery O2 Flow Rate FiO2 02/02/18 04:00 101.3 97 20 161/73 (102) 91 Nasal Cannula 4.00 02/02/18 01:59 101.6 168/78 (108) 02/02/18 01:00 101.3 102 18 170/80 (110) 90 Nasal Cannula 4.00 02/02/18 01:00 101 02/02/18 00:56 101.3 02/02/18 00:17 102.6 116 18 180/90 (120) 90 Nasal Cannula 4.00 02/02/18 00:17 102.0 02/01/18 21:00 Room Air 4.00 02/01/18 20:25 99.7 93 18 155/79 (104) 93 Nasal Cannula 4.00 02/01/18 19:00 91 02/01/18 16:34 100.5 86 20 140/76 (97) 96 Nasal Cannula 4.00 02/01/18 13:00 86 02/01/18 12:06 Nasal Cannula 4.00 02/01/18 12:00 99.8 88 20 158/74 (102) 90 Nasal Cannula 4.00 02/01/18 08:15 Room Air 4.00 I & O 02/02/18 07:00 Intake Total 2330 ml Output Total 725 ml Balance 1605 ml Capillary Refill : General Appearance: No Apparent Distress, WD/WN HEENT: Normal ENT Inspection Neck: Other (Cervical collar, neck surgery) Respiratory: No Accessory Muscle Use, No Respiratory Distress Cardiovascular: Regular Rate, Rhythm Gastrointestinal: non tender, soft Results Lab Laboratory Tests 02/02/18 05:35 Laboratory Tests 02/01/18 11:07: Glucometer 232H 02/01/18 14:49: Glucometer 255H 02/01/18 19:36: Glucometer 299H 02/02/18 05:35: White Blood Count 15.6H, Red Blood Count 3.23L, Hemoglobin 9.2L, Hematocrit 28L , Mean Corpuscular Volume 87, Mean Corpuscular Hemoglobin 28, Mean Corpuscular Hemoglobin Concent 33, Red Cell Distribution Width 13.1, Platelet Count 205, Mean Platelet Volume 10.7H, Neutrophils (%) (Auto) 86H, Lymphocytes (%) (Auto) 6L, Monocytes (%) (Auto) 8, Eosinophils (%) (Auto) 0, Basophils (%) (Auto) 0, Neutrophils # (Auto) 13.4H, Lymphocytes # (Auto) 0.9L, Monocytes # (Auto) 1.2H, Eosinophils # (Auto) 0.1, Basophils # (Auto) 0.0, Neutrophils % (Manual) 87, Lymphocytes % (Manual) 6, Monocytes % (Manual) 4, Eosinophils % (Manual) 0, Basophils % (Manual) 0, Band Neutrophils 3, Polychromasia SLIGHT, Sodium Level 138, Potassium Level 5.3H, Chloride Level 105, Carbon Dioxide Level 23, Anion Gap 10, Blood Urea Nitrogen 63H, Creatinine 2.22H, Estimat Glomerular Filtration Rate 31, BUN/Creatinine Ratio 28, Glucose Level 221H, Calcium Level 8.6, Corrected Calcium 9.0, Total Bilirubin 0.8, Aspartate Amino Transf (AST/ SGOT) 24, Alanine Aminotransferase (ALT/SGPT) 13, Alkaline Phosphatase 77, Total Protein 6.0L, Albumin 3.5 Microbiology 01/31/18 Genital Culture - Preliminary, Resulted See Comments 01/30/18 MRSA Screen - Final, Complete MRSA not isolated 01/31/18 Urine Culture - Final, Complete NO GROWTH Assessment/Plan Assessment/Plan Assess & Plan/Chief Complaint Mild opacity. Cervical surgery. Diabetes. Coronary artery disease. Diabetic retinopathy. . 02/01/18. Myelopathy. Diabetes. Hyperkalemia. Coronary artery disease. Diabetes. Diabetic neuropathy. Confusion yesterday. Weakness yesterday. Failure 02/02/18. Myelopathy. Diabetes. Hypokalemia. Febrile. Leukocytosis. Renal insufficiency. Confusion at times. Clinical Quality Measures DVT/VTE Risk/Contraindication: Risk Factor Score Per Nursin RFS Level Per Nursing on Admit: 2=Moderate MARIIA SIM DO Feb 02, 2018 08:09
--- NOTE | 2018-02-02 08:11 | Cardiology Progress Note ---
Subjective Date Seen by Provider: Feb 02, 2018 Time Seen by Provider: 08:07 Subjective/Events-last exam Patient is in bed, complaining of fatigue and loss of energy, had fever last night Review of Systems General: Chills; No Night Sweats; Fatigue, Malaise; No Appetite, No Other HEENT: No Head Aches, No Visual Changes, No Eye Pain, No Ear Pain, No Dysphasia , No Sinus Congestion, No Post Nasal Drip, No Sore Throat, No Other Pulmonary: Dyspnea; No Cough, No Pleuritic Chest Pain, No Other Cardiovascular: No: Chest Pain, Palpitations, Orthopnea, Paroxysmal Noc. Dyspnea, Edema, Lt Headedness, Other Objective-Cardiology Exam Last Set of Vital Signs Vital Signs 02/02/18 04:00 Temp 101.3 Pulse 97 Resp 20 B/P (MAP) 161/73 (102) Pulse Ox 91 O2 Delivery Nasal Cannula O2 Flow Rate 4.00 Capillary Refill : I&O Intake and Output 02/02/18 00:00 Intake Total 2380 ml Output Total 1325 ml Balance 1055 ml Intake Oral 2380 ml Output Urine Total 1325 ml # Voids 1 # Bowel Movements 1 General: Alert, Oriented X3, Cooperative, Moderate Distress HEENT: Atraumatic, PERRLA Neck: Supple, No JVD, No Thyromegaly Lungs: Clear to Auscultation, Normal Air Movement Heart: Regular Rate, Normal S1, Normal S2, No Murmurs Abdomen: Normal Bowel Sounds, Soft, No Tenderness, No Hepatosplenomegaly, No Masses Extremities: No Clubbing, No Cyanosis, No Edema, Normal Pulses, No Tenderness/ Swelling Skin: No Rashes, No Breakdown, No Significant Lesion Neuro: Normal Speech, Strength at 5/5 X4 Ext, Normal Tone, Sensation Intact Psych/Mental Status: Mental Status NL, Mood NL Results Lab Laboratory Tests 02/02/18 05:35 A/P-Cardiology Admission Diagnosis Chest pain nonspecific etiology Coronary artery disease Spinal stenosis Hypertension Assessment/Plan Chest pain nonspecific etiology, EKG did not show any acute abnormality, Cardiac enzymes are negative, feeling better today. Acute renal failure, , deterioration in renal function, losartan and Lasix were discontinued yesterday, given IV fluid. Continue to monitor renal function Fever with leukocytosis, postoperative day number 3. Questionable infection, blood cultures and lactic acid were ordered. Septic workup is in progress. Starting on antibiotics. Discussed with Dr. Younger Spinal stenosis, status post cervical spine surgery done by Dr. Hardwick. Recovering slowly. Hyperkalemia, started on IV fluid and I stopped losartan and I will monitor electrolytes Coronary artery disease, history of cardiac catheterization done by Dr. Longoria which showed mild nonobstructive disease repeat cardiac catheterization done in 2017 showing severe stenosis in the mid LAD successful stenting using Alpine 3.0 18 mm stent expanded to 3.25 mm with good results, mild to moderate disease in the proximal portion of the LAD, moderate disease in the distal circumflex artery. Carotid artery stenosis-mild nonobstructive disease per carotid duplex done July 2017, continue to monitor Diabetes mellitus, managed by Dr. Younger. Diabetic neuropathy, followed and managed by Dr. Younger. Hypertension, continue to monitor blood pressure Chronic renal insufficiency, continue to monitor renal function Hyperlipidemia, intolerant to Lipitor with severe diarrhea. I will try low dose Crestor 5 mg daily and evaluate tolerance and response History of erectile dysfunction, most likely secondary to peripheral neuropathy. Lower extremity pain, likely secondary to neuropathy, patient underwent peripheral angiogram done February 09, 2016 revealing mild to moderate disease in the anterior tibial of the left lower extremity and posterior tibial at 60-70 percent. Anterior tibial with good flow down to the ankle on the left lower extremity, otherwise mild disease in the right lower extremity and abdominal aorta. Continue maximizing medical therapy Clinical Quality Measures DVT/VTE Risk/Contraindication: Risk Factor Score Per Nursin RFS Level Per Nursing on Admit: 2=Moderate KAREN YANG MD Feb 02, 2018 08:11
[2018-02-02] MEDS ORDERED: NS IV 1000 ML 1,000 ML IV SCH (08:15)
[2018-02-02] MEDS: meTOprolol TARTRATE 50 MG (LOPRESSOR) TAB PO SCH ×2 (08:19→22:36)
[2018-02-02] MEDS: SENNOSIDES 8.6 MG (SENOKOT) TAB PO SCH ×2 (08:19→22:36)
[2018-02-02] MEDS: GABAPENTIN 600 MG (NEURONTIN) TAB PO SCH ×3 (08:19→22:35)
[2018-02-02] MEDS: MILK OF MAGNESIA 400 MG/5 ML 30 ML UDC PO SCH (08:20)
[2018-02-02] MEDS ORDERED: cefTRIAXone 1 GM/NS 50 ML IVPB IV SCH ×2 (09:00)
[2018-02-02] MEDS: amLODIPine 10 MG (NORVASC) TAB PO SCH (09:06)
[2018-02-02 10:44] LABS: BILIRUBIN,URINE NEGATIVE (NEGATIVE); CLARITY,URINE SLIGHTLY CLOUDY; COLOR,URINE YELLOW; GLUCOSE, URINE (UA) 1+ (NEGATIVE); KETONES,URINE NEGATIVE (NEGATIVE); LEUKOCYTE ESTERASE ,URINE 1+ (NEGATIVE); NITRITE,URINE NEGATIVE (NEGATIVE); PH,URINE 5 (5-9); PROTEIN,URINE 3+ (NEGATIVE); UROBILINOGEN,URINE NORMAL (NORMAL)
[2018-02-02 10:59] LABS: BACTERIA,URINE NEGATIVE /HPF; WBC,URINE 0-2 /HPF
--- NOTE | 2018-02-02 11:19 | Physical Therapy Daily Note ---
PT Daily Note-Current Subjective Patient is very lethargic and confused. Agrees to PT. Pain Numeric Pain Scale: 5-Moderate Pain Location: Soft Tissue Location Body Site: Neck Pain Description: Acute Mental Status Patient Orientation: Confused Attachments: Oxygen, IV Transfers Functional [place] Measure 0=Not Assessed/NA 4=Minimal Assistance 1=Total Assistance 5=Supervision or Setup 2=Maximal Assistance 6=Modified [place] 3=Moderate Assistance 7=Complete IndependenceIRFPAI Quality Coding Scale 6 Independent with activity with or without an assistive device 5 Patient requires set up or clean up by helper. Patient completes activity by themselves 4 Supervision or touching assist (CGA). [place] provide cues , steadying assist 3 The helper provides less than half the effort to complete the activity 2 The helper provides more than half the effort to complete the activity 1 Dependent. The helper does all the effort to complete an activity 7 Patient refused to complete or attempt activity 9 The patient did not perform the activity before the current illness or injury 88 Not attempted due to Medical conditions or safety concerns Transfers (B, C, W/C) (FIM): 3 Scootin Rollin Supine to/from Sit: 5 Sit to/from Stand: 3 Bed to/from Chair: 3 Patient is very impulsive and unsafe with all mobility requiring mod assist to maintain standing position x 3 sets with RN in to assist with urinating Weight Bearing Right Lower Extremity: Right Full Weight Bearing Left Lower Extremity: Left Full Weight Bearing Gait Training Gait (FIM): 2 Distance (FIM): 1=424-33 ft Distance: 115' Gait Level of Assist: 3 Gait Persons Needed: 2 Gait Assistive Device: FWW mod assist x 1 and SBA x 1 with all mobility for safety. Patient presents with extended UE's with FWW use and is unaware of safety concerns and is extremely confused. Assessment Patient is up in recliner with needs met. Patient continues to be confused and unaware of safety concerns. PT Short Term Goals Short Term Goals Time Frame: Feb 04, 2018 Gait (FIM): 6 Distance (FIM): 3=150 ft Gait Level of Assist: 6 Gait Assistive Device: FWW, Cane Single Point PT Plan Treatment/Plan Treatment Plan: Continue Plan of Care Treatment Plan: Education, Functional Activity [place], Functional Strength, Gait , Safety, Therapeutic Exercise Treatment Duration: Feb 04, 2018 Frequency: 5 times per week Estimated Hrs Per Day: .25 hour per day Patient and/or Family Agrees t: Yes Time/GCodes Time In: 1010 Time Out: 1033 Total Billed Treatment Time: 23 Total Billed Treatment 1 visit FA x 2 23 min MARK RAMIREZ PT Feb 02, 2018 11:19
--- NOTE | 2018-02-02 12:50 | Progress Note (SOAP) ---
Subjective Date Seen by Provider: Feb 02, 2018 Time Seen by Provider: 12:40 Subjective/Events-last exam POD #3, s/p C3-7 ACDF with C5 corpectomy Febrile last night. Episodes of confusion Review of Systems General: No Chills Pulmonary: No Cough Gastrointestinal: No: Nausea, Vomiting, Abdominal Pain Musculoskeletal: neck pain; No: arm pain, leg pain Neurological: Weakness Focused Exam Lactate Level 02/02/18 08:55: Lactic Acid Level 0.74 Lactic Acid Level Laboratory Tests Test 02/02/18 08:55 Lactic Acid Level 0.74 MMOL/L (0.50-2.00) Objective Exam Vital Signs Date Time Temp Pulse Resp B/P (MAP) Pulse Ox O2 Delivery O2 Flow Rate FiO2 02/02/18 09:00 Nasal Cannula 2.00 02/02/18 08:00 100.5 98 20 155/85 (108) 94 Nasal Cannula 2.00 02/02/18 07:00 96 02/02/18 04:00 101.3 97 20 161/73 (102) 91 Nasal Cannula 4.00 02/02/18 01:59 101.6 168/78 (108) 02/02/18 01:00 101.3 102 18 170/80 (110) 90 Nasal Cannula 4.00 02/02/18 01:00 101 02/02/18 00:56 101.3 02/02/18 00:17 102.6 116 18 180/90 (120) 90 Nasal Cannula 4.00 02/02/18 00:17 102.0 02/01/18 21:00 Room Air 4.00 02/01/18 20:25 99.7 93 18 155/79 (104) 93 Nasal Cannula 4.00 02/01/18 19:00 91 02/01/18 16:34 100.5 86 20 140/76 (97) 96 Nasal Cannula 4.00 02/01/18 13:00 86 I & O 02/02/18 06:59 Intake Total 2330 ml Output Total 725 ml Balance 1605 ml Capillary Refill : General Appearance: No Apparent Distress HEENT: PERRL/EOMI Neck: Supple, Other (Trachea midline, Normal phonation, ) Respiratory: Chest Non Tender, No Respiratory Distress Extremity: Non Tender Neurologic/Psychiatric: Alert, Oriented x3, No Motor/Sensory Deficits, Depressed Affect, Other ([place]) Skin: Other (Dressing CDI) Results Lab Laboratory Tests 02/01/18 14:49: Glucometer 255H 02/01/18 19:36: Glucometer 299H 02/02/18 05:35: White Blood Count 15.6H, Red Blood Count 3.23L, Hemoglobin 9.2L, Hematocrit 28L , Mean Corpuscular Volume 87, Mean Corpuscular Hemoglobin 28, Mean Corpuscular Hemoglobin Concent 33, Red Cell Distribution Width 13.1, Platelet Count 205, Mean Platelet Volume 10.7H, Neutrophils (%) (Auto) 86H, Lymphocytes (%) (Auto) 6L, Monocytes (%) (Auto) 8, Eosinophils (%) (Auto) 0, Basophils (%) (Auto) 0, Neutrophils # (Auto) 13.4H, Lymphocytes # (Auto) 0.9L, Monocytes # (Auto) 1.2H, Eosinophils # (Auto) 0.1, Basophils # (Auto) 0.0, Neutrophils % (Manual) 87, Lymphocytes % (Manual) 6, Monocytes % (Manual) 4, Eosinophils % (Manual) 0, Basophils % (Manual) 0, Band Neutrophils 3, Polychromasia SLIGHT, Sodium Level 138, Potassium Level 5.3H, Chloride Level 105, Carbon Dioxide Level 23, Anion Gap 10, Blood Urea Nitrogen 63H, Creatinine 2.22H, Estimat Glomerular Filtration Rate 31, BUN/Creatinine Ratio 28, Glucose Level 221H, Calcium Level 8.6, Corrected Calcium 9.0, Total Bilirubin 0.8, Aspartate Amino Transf (AST/ SGOT) 24, Alanine Aminotransferase (ALT/SGPT) 13, Alkaline Phosphatase 77, Total Protein 6.0L, Albumin 3.5 02/02/18 08:55: Lactic Acid Level 0.74 02/02/18 10:16: Glucometer 248H 02/02/18 10:35: Urine Color YELLOW, Urine Clarity SLIGHTLY CLOUDY, Urine pH 5, Urine Specific [place] 1.015L, Urine Protein 3+H, Urine Glucose (UA) 1+H, Urine Ketones NEGATIVE, Urine Nitrite NEGATIVE, Urine Bilirubin NEGATIVE, Urine Urobilinogen NORMAL, Urine Leukocyte Esterase 1+H, Urine RBC (Auto) 4+H, Urine RBC 2-5H, Urine WBC 0-2, Urine Squamous Epithelial Cells NONE, Urine Crystals NONE, Urine Bacteria NEGATIVE, Urine Casts NONE, Urine Mucus NEGATIVE, Urine Culture Indicated NO Microbiology 01/31/18 Genital Culture - Preliminary, Resulted See Comments 01/30/18 MRSA Screen - Final, Complete MRSA not isolated 01/31/18 Urine Culture - Final, Complete NO GROWTH Assessment/Plan Assessment/Plan Assess & Plan/Chief Complaint S/P C3-7 ACDF with C5 corpectomy Renal failure Pyrexia Leukocytosis Patient is still far from his baseline. He had fever last night and his WBC continues to elevate. He admits that he has made a poor effort to do his IS. He had atelectasis on portable CXR yesterday, and I fear that this will easily progressed to Pneumonia. He is currently receiving Rocephin. From a spine stance , he is doing well and stable. His admission needs are medical at this time. I will contact Dr. Younger to further discuss the patient's care. Clinical Quality Measures DVT/VTE Risk/Contraindication: Risk Factor Score Per Nursin RFS Level Per Nursing on Admit: 2=Moderate APRIL LA Feb 02, 2018 12:50
--- NOTE | 2018-02-02 15:12 | Occupational Ther Daily Note ---
OT Current Status-Daily Note Subjective Pt seen in room, sitting EOB, agreeable to OT. No pain mentioned Appearance Confused Mental Status/Objective Functional [place] Measure 0=Not Assessed/NA 4=Minimal Assistance 1=Total Assistance 5=Supervision or Setup 2=Maximal Assistance 6=Modified [place] 3=Moderate Assistance 7=Complete [place] ADL-Treatment He wanted to get up from sitting EOB. Assist to get up, then min-mod help to walk around the end of the bed to recliner. He ran walker into wall, missing the turn. Unsteady walking as well as help steering. Cues for walker placement prior to sitting. he needed a little help getting foot into pants, then cues to not stand before pants were pulled up over feet. Stood min assist to pull pants up, then sat down unsteadily. Pt left up in recliner, chair alarm on, ordering food, all needs met. Education OT Patient Education: Modified ADL techniques, Purpose of tx/functional activities, Safety issues, Transfer techniques Teaching Recipient: Patient Teaching Methods: Demonstration, Discussion Response to Teaching: Verbalize Understanding, Return Demonstration, Reinforcement Needed OT Short Term Goals Short Term Goals 1=Demonstrate adherence to instructed precautions during ADL tasks. 2=Patient will verbalize/demonstrate understanding of assistive devices/ modifications for ADL. 3=Patient will improve strength/tolerance for activity to enable patient to perform ADL's. OT Behavioral Health Care Manager Goals Behavioral Health Care Manager Goals Time Frame: Feb 04, 2018 Grooming(FIM): 6 Bathing(FIM): 5 Upper Body Dressing(FIM): 6 Lower Body Dressing(FIM): 5 Toileting(FIM): 6 Toilet/Commode Transfer(FIM): 6 Shower Transfer(FIM): 5 Additional Goals: 1-Demonstrate ADL Tasks, 2-Verbalize Understanding, 3- ImproveStrength/[place] 1=Demonstrate adherence to instructed precautions during ADL tasks. 2=Patient will verbalize/demonstrate understanding of assistive devices/ modifications for ADL. 3=Patient will improve strength/tolerance for activity to enable patient to perform ADL's. OT Education/Plan Problem List/Assessment Pt would benefit from skilled OT to increase his independence in basic self care to allow him to safely return home. Discharge Recommendations Plan/Recommendations: Continue POC Treatment Plan/Plan of Care Patient would benefit from OT for education, treatment and training to promote independence in ADL's, mobility, safety and/or upper extremity function for ADL' s. Plan of Care: ADL Retraining, Functional Mobility, UE Funct Exercise/Act, UE Neuromus Re-Ed/Coord Treatment Duration: Feb 04, 2018 Frequency: 5 times per week Estimated Hrs Per Day: .5 hour per day Agreement: Yes Rehab Potential: Good Time/GCodes Start Time: 14:05 Stop Time: 14:18 Total Time Billed (hr/min): 13 Billed Treatment Time visit, 13 minutes functional activities ROBERTO HUNTER OT Feb 02, 2018 15:12
[2018-02-02] MEDS: LORATADINE (CLARITIN) 10 MG TAB PO SCH (16:15)
[2018-02-02] MEDS: GLIMEPIRIDE 2 MG (AMARYL) TAB PO SCH (16:15)
[2018-02-02 20:14] LABS: ABG BASE EXCESS -0.4 MMOL/L (-2.5-2.5); ABG OXYGEN SATURATION 94 % (94-100); ABG PCO2 53 MMHG (35-45); ABG PO2 71 MMHG (79-93); ABG TCO2 26.7 MMOL/L (21.0-31.0)
[2018-02-02 20:17] LABS: ALLENS TEST YES-POS
[2018-02-02 20:18] LABS: INSPIRED O2 5L NC; PATIENT TEMP 99.4; VENTILATOR NO
[2018-02-02 20:22] LABS: BASOPHILS % (AUTO) 0 % (0-10); EOSINOPHILS # (AUTO) 0.1 10^3/uL (0.0-0.3); EOSINOPHILS % (AUTO) 1 % (0-10); HEMATOCRIT 27 % (40-54); HEMOGLOBIN 8.7 G/DL (13.3-17.7); LYMPHOCYTES # (AUTO) 0.9 X 10^3 (1.0-4.0); LYMPHOCYTES % (AUTO) 7 % (12-44); MEAN CORPUSCULAR HEMOGLOBIN 28 PG (25-34); MEAN CORPUSCULAR HGB CONC 33 G/DL (32-36); MEAN CORPUSCULAR VOLUME 87 FL (80-99); MEAN PLATELET VOLUME 10.4 FL (7.4-10.4); MONOCYTES # (AUTO) 1.2 X 10^3 (0.0-1.0); MONOCYTES % (AUTO) 9 % (0-12); NEUTROPHILS # (AUTO) 11.2 X 10^3 (1.8-7.8); NEUTROPHILS % (AUTO) 84 % (42-75); PLATELET COUNT 200 10^3/uL (130-400); RED BLOOD COUNT 3.06 10^6/uL (4.35-5.85); RED CELL DISTRIBUTION WIDTH 13.2 % (10.0-14.5); WHITE BLOOD COUNT 13.4 10^3/uL (4.3-11.0)
[2018-02-02 20:38] LABS: ALBUMIN 3.7 GM/DL (3.2-4.5); BILIRUBIN,TOTAL 0.6 MG/DL (0.1-1.0); CALCIUM 8.5 MG/DL (8.5-10.1); CREATININE SERUM 2.43 MG/DL (0.60-1.30); POTASSIUM 5.3 MMOL/L (3.6-5.0); TOTAL PROTEIN 6.4 GM/DL (6.4-8.2)
--- NOTE | 2018-02-02 20:54 | Diagnostic Imaging Report ---
INDICATION: Hypoxia. COMPARISON: 02/01/2018. EXAMINATION: Single view of the chest was obtained. FINDINGS: There is cardiomegaly. There is mild venous congestion. There is no pleural effusion or pneumothorax. The mediastinum is unremarkable. IMPRESSION: Cardiomegaly and mild central pulmonary venous congestion. Dictated by: Dictated on workstation # [id number]
[2018-02-02] MEDS: ROSUVASTATIN 5 MG (CRESTOR) TABLET PO SCH (22:35)
[2018-02-02 23:28] LABS: ABG BASE EXCESS -0.6 MMOL/L (-2.5-2.5); ABG OXYGEN SATURATION 98 % (94-100); ABG PCO2 56 MMHG (35-45); ABG PO2 87 MMHG (79-93); ABG TCO2 27.1 MMOL/L (21.0-31.0)
[2018-02-02 23:29] LABS: ABG PH 7.28 (7.37-7.43)
[2018-02-02 23:30] LABS: ALLENS TEST YES-POS; INSPIRED O2 7L; PATIENT TEMP 98.3; VENTILATOR NO
[2018-02-03] VITALS (46 sets, daily range): BP systolic 93–171; BP diastolic 49–91
[2018-02-03] MEDS ORDERED: FUROSEMIDE 40 MG/4 ML INJ (LASIX) ONE (00:53)
[2018-02-03] MEDS: NS IV 1000 ML 1,000 ML IV SCH ×4 (01:12→17:45)
[2018-02-03] MEDS ORDERED: FUROSEMIDE 40 MG/4 ML INJ (LASIX) IVP ONE (01:30)
[2018-02-03] MEDS ORDERED: HALOPERIDOL 5 MG/ML (HALDOL) AMP ONE (02:12)
[2018-02-03] MEDS ORDERED: LORazepam INJ 2 MG/ML (ATIVAN) VIAL ONE (02:13)
[2018-02-03] MEDS ORDERED: HALOPERIDOL 5 MG/ML (HALDOL) AMP IM ONE (02:45)
[2018-02-03] MEDS ORDERED: LORazepam INJ 2 MG/ML (ATIVAN) VIAL IVP ONE (02:45)
[2018-02-03 03:14] LABS: ABG OXYGEN SATURATION 95 % (94-100); ABG PCO2 59 MMHG (35-45); ABG PO2 75 MMHG (79-93)
[2018-02-03 03:22] LABS: ABG PH 7.27 (7.37-7.43); ALLENS TEST YES-POS; INSPIRED O2 35%; VENTILATOR NO
[2018-02-03 03:37] LABS: BASOPHILS % (AUTO) 0 % (0-10); EOSINOPHILS # (AUTO) 0.2 10^3/uL (0.0-0.3); EOSINOPHILS % (AUTO) 2 % (0-10); HEMATOCRIT 26 % (40-54); HEMOGLOBIN 8.6 G/DL (13.3-17.7); LYMPHOCYTES # (AUTO) 1.2 X 10^3 (1.0-4.0); LYMPHOCYTES % (AUTO) 9 % (12-44); MEAN CORPUSCULAR HEMOGLOBIN 29 PG (25-34); MEAN CORPUSCULAR HGB CONC 33 G/DL (32-36); MEAN CORPUSCULAR VOLUME 87 FL (80-99); MEAN PLATELET VOLUME 10.5 FL (7.4-10.4); MONOCYTES # (AUTO) 1.3 X 10^3 (0.0-1.0); MONOCYTES % (AUTO) 10 % (0-12); NEUTROPHILS # (AUTO) 10.7 X 10^3 (1.8-7.8); NEUTROPHILS % (AUTO) 80 % (42-75); PLATELET COUNT 197 10^3/uL (130-400); RED BLOOD COUNT 2.98 10^6/uL (4.35-5.85); RED CELL DISTRIBUTION WIDTH 12.8 % (10.0-14.5); WHITE BLOOD COUNT 13.4 10^3/uL (4.3-11.0)
[2018-02-03 03:55] LABS: ALBUMIN 3.5 GM/DL (3.2-4.5); BILIRUBIN,TOTAL 0.5 MG/DL (0.1-1.0); CALCIUM 8.6 MG/DL (8.5-10.1); CREATININE SERUM 2.38 MG/DL (0.60-1.30); MAGNESIUM 3.1 MG/DL (1.8-2.4); PHOSPHORUS 4.3 MG/DL (2.3-4.7); POTASSIUM 5.1 MMOL/L (3.6-5.0); TOTAL PROTEIN 6.1 GM/DL (6.4-8.2)
[2018-02-03] MEDS ORDERED: PROPOFOL DRIP (ICU) 100 ML IV ONE ×2 (04:12→06:53)
[2018-02-03] MEDS: PROPOFOL DRIP (ICU) 100 ML IV SCH ×5 (05:00→23:42)
[2018-02-03] MEDS ORDERED: SUCCINYLCHOLINE INJ 100 MG/5 ML SYR INJ ONE (05:15)
[2018-02-03] MEDS ORDERED: MIDAZOLAM 5 MG/5 ML (VERSED) VIAL INJ ONE (05:15)
[2018-02-03] MEDS ORDERED: FLUMAZENIL (ROMAZICON) 0.1 MG/ML 5 ML VIAL IV ONE (05:15)
--- NOTE | 2018-02-03 05:15 | Anesthesia-Procedure Note ---
Procedures/Interventions Procedure Start/Stop/Diagnosis Date of Procedure: Feb 03, 2018 Start Time: 04:50 Referring Physician: Sima Preprocedural Diagnosis: acute respiratory distress Stop Time: 05:00 Intubation Reason Intubation/Diagnosis: acute respiratory distress RSI: Yes 100% pre-Ox, [id number]: Yes Intubation Method: orotracheal Videoscope used: Yes (glidescope) Grade View: 1 Medications: Propofol (100mg), Succinylcholine (100mg) Mask Ventilation: positive Positive End Tide CO2: Yes Breath Sounds after Intubation: bilateral-equal ETT Securred @ (cm): 23 Intubated with ease: Yes Intubation Complications: no complications Post Intubation Xray-done: Yes Post Procedure Called to assist with emergent intubation. On arrival, Dr. Gao at bedside. Report received from him re: previous unsuccessful attempts to pass ETT with use of glidescope. S/P ACDF with Dr. Hardwick. Assisted with mask ventilation to SP02 of 100%. Medications given, see note. Suctioned blood from oropharynx, proceeded with intubation with 7.0 ETT (per Sima) x 1 attempt with glidescope/ rigid stylet. Atraumatic. +ETCO2. BBS. Care turned over to: FELICIANO Bradshaw CRNA Feb 03, 2018 05:15
--- NOTE | 2018-02-03 05:18 | Pulmonary Consultation ---
History of Present Illness History of Present Illness Date of Consultation 02/03/18 05:12 Time Seen by Provider: 05:13 Date of Admission Reason for Visit: chest pain History of Present Illness 53yo with hx of morbid obesity, CKD, GABRIELLA, Cervical stenosis presented for elective surgery. Pt is s/p C3-7 ACDF with C5 corpectomy. PT was transferred up to ICU last night secondary to worsening respiratory distress. Pt was placed on BiPAP. He was given Ativan and Morphine secondary to agitation. ABG's show worsening respiratory distress. PT is lethargic and will not awaken to answer questions. No family at bedside. I am consulted for pulmonary/ICU management. Allergies and Home Medications Allergies Coded Allergies: No Known Drug Allergies (Unverified , 01/30/18) Home Medications Amlodipine Besylate 5 Mg Tablet, 5 MG PO DAILY, (Reported) Aspirin 81 Mg Tablet.dr, 81 MG PO DAILY, (Reported) Clopidogrel Bisulfate 75 Mg Tablet, 75 MG PO DAILY, (Reported) Fexofenadine HCl 180 Mg Tablet, 180 MG PO DAILY@1700, (Reported) Furosemide 40 Mg Tablet, 40 MG PO DAILY, (Reported) Furosemide 20 Mg Tablet, 20 MG PO DAILY@1700, (Reported) Gabapentin 300 Mg Capsule, 600 MG PO 0800,1500,2200, (Reported) TAKES 2 (300 MG) CAPSULES Glimepiride 2 Mg Tablet, 2 MG PO DAILY@1700, (Reported) Glimepiride 4 Mg Tablet, 4 MG PO DAILY, (Reported) Losartan Potassium 100 Mg Tablet, 100 MG PO DAILY, (Reported) Metoprolol Tartrate 50 Mg Tablet, 50 MG PO BID, (Reported) Rosuvastatin Calcium 5 Mg Tablet, 5 MG PO HS, (Reported) Tramadol HCl 50 Mg Tablet, 50-100 MG PO Q6H PRN for PAIN-MILD TO MODERATE, ( Reported) take 1-2 (50mg) tabs Past Keyagvo-Ahnejl-Eyponb Hx Patient Social History Alcohol Use: Denies Use Recreational Drug Use: No Smoking Status: Never a Smoker 2nd Hand Smoke Exposure: No Recent Foreign Travel: No Contact w/Someone Who Travel: No Recent Infectious Disease Expo: No Recent Hopitalizations: No Immunizations Up To Date Tetanus Booster (TDap): Unknown Date of Pneumonia Vaccine: Jun 16, 2015 Date of Influenza Vaccine: Jun 20, 2017 Seasonal Allergies Seasonal Allergies: No Past Medical History Surgeries: Yes (NASAL POLYPS REMOVED CHILD, heart cath x2,cystoscopy ) Cardiac, Coronary Stent, Nose Respiratory: Yes Sleep Apnea Currently Using CPAP: Yes Currently Using BIPAP: No Cardiac: Yes (PAD, stent placed in 06/30) Cardiomyopathy, Coronary Artery Disease, Hypertension, Irregular Heartbeat, Peripheral Vascular Neurological: Yes (NEUROPATHY IN LEGS/ FEET) Neuropathy Reproductive Disorders: Yes (E.D.) Sexually Transmitted Disease: No HIV/AIDS: No Genitourinary: No Gastrointestinal: No Chronic Diarrhea Musculoskeletal: Yes Arthritis, Chronic Back Pain Endocrine: Yes Diabetes, Non-Insulin dep HEENT: No Cancer: No Psychosocial: Yes Anxiety Integumentary: No Blood Disorders: No Adverse Reaction/Blood Tranf: No Family Medical History Arthritis G8 BROTHER (knee replacement) Cardiovascular disease 19 FATHER (chf) Deafness or hearing loss 19 MOTHER (vertigo) Diabetes mellitus 19 MOTHER Prostate cancer 19 FATHER No Pertinent Family Hx Review of Systems Time Seen by Provider: 05:46 Sepsis Event Evaluation Height, Weight, BMI Height: 5'11.00" Weight: 288lbs. 0.0oz. 130.998150ol; 40.2 BMI Method:Stated Exam Exam Vital Signs Date Time Temp Pulse Resp B/P (MAP) Pulse Ox O2 Delivery O2 Flow Rate FiO2 02/03/18 04:00 70 12 134/91 (105) 99 NIV Bilevel 30.00 02/03/18 03:25 82 24 99 30.00 02/03/18 03:00 83 23 142/89 (106) 98 NIV Bilevel 30.00 02/03/18 02:42 NIV Bilevel 30.00 02/03/18 02:31 NIV CPAP 7.00 02/03/18 02:00 100 20 142/89 (106) 92 NIV Bilevel 30.00 02/03/18 01:10 100 02/03/18 01:00 95 02/03/18 01:00 96 30 155/86 (109) 100 NIV Bilevel 30.00 02/03/18 00:58 92 25 100 40.00 02/03/18 00:00 92 14 142/89 (106) 91 NIV CPAP 7.00 02/03/18 00:00 NIV CPAP 5.00 02/02/18 23:24 NIV CPAP 7.00 02/02/18 23:00 95 13 139/100 (113) 96 NIV CPAP 7.00 02/02/18 22:00 97 18 140/118 (125) 96 NIV CPAP 7.00 02/02/18 21:23 NIV CPAP 7.00 02/02/18 21:08 NIV CPAP 5.00 02/02/18 21:00 96 10 141/94 (110) 96 Nasal Cannula 5.00 02/02/18 21:00 Nasal Cannula 5.00 02/02/18 20:45 98 19 124/97 (106) 92 Nasal Cannula 5.00 02/02/18 20:30 143/85 (104) Nasal Cannula 5.00 02/02/18 20:15 99.4 112/75 (87) Nasal Cannula 5.00 02/02/18 20:06 77 02/02/18 19:57 145/89 (107) Nasal Cannula 5.00 02/02/18 19:30 99.5 98 20 135/72 (93) 81 Nasal Cannula 2.00 02/02/18 16:00 99.5 89 20 141/69 (93) 92 Nasal Cannula 2.00 02/02/18 13:00 88 02/02/18 12:00 100.7 86 20 137/69 (91) 95 Nasal Cannula 2.00 02/02/18 09:00 Nasal Cannula 2.00 02/02/18 08:00 100.5 98 20 155/85 (108) 94 Nasal Cannula 2.00 02/02/18 07:00 96 I & O 02/03/18 07:00 Intake Total 740 ml Output Total 1230 ml Balance -490 ml Height & Weight Height: 5'11.00" Weight: 288lbs. 0.0oz. 130.832659iv; 40.2 BMI Method:Stated General Appearance: Severe Distress (Lethargic on BIPAP) HEENT: PERRL/EOMI Neck: Supple, Other (Trachea midline, Normal phonation, ) Respiratory: Accessory Muscle Use, Decreased Breath Sounds, Respiratory Distress Cardiovascular: Regular Rate, Rhythm Capillary Refill: Less Than 3 Seconds Gastrointestinal: non tender, soft Extremity: Non Tender Neurologic/Psychiatric: Alert, Oriented x3, No Motor/Sensory Deficits, Depressed Affect, Other ([place]) Skin: Normal Color, Warm/Dry, Other (Dressing CDI) Lymphatic: No Adenopathy Results Lab Laboratory Tests 02/01/18 05:15 02/02/18 05:35 02/02/18 20:10 02/03/18 03:26 Assessment/Plan Assessment/Plan HX of cervical stenosis S/P C3-7 ACDF with C5 corpectomy Acute respiratory failure/distress -Pt needs intubation. -Repeat labs, ABG, and CXR UTI with sepsis and urinary retention -Currently on Rocephin -Change Abx to Zosyn (MRSA swab is negative) -repeat Manjarrez cultures -Castillo was placed last night secondary to urinary retention CKD with hyperkalemia -PT did receive 40mg of IV Lasix last night secondary to respiratory distress. Will recheck K+ Anemia - monitor 02/03/18: Upon entering [facility] told me I was needed right away in rm 9. Upon entering room patient had paradoxical respirations and is unresponsive on BiPAP. He will not answer questions. ABG shows worsening respiratory acidosis. PT is a full code. PT was initially intubated with size 8.0 ET tube with using GlideScope, and boogie after 2nd attempt secondary to difficult intubation. BS were auscultated bilaterally and there was positive endtidal C02 exchange. PT was connected to ventilator and he had appropriate expiratory tidal volumes. While RT was securing ET tube it became dislodged and reintubation was attempted. Anesthesia was called secondary to difficult airway. Anesthesia was at bedside within 10min and was able successfully intubated patient with size 7.0 ET tube. Total time spent with patient is 120min. Critical Care: Critically Ill Patient Time spent with patient (mins): 120 JORGE GONZALEZ DO Feb 03, 2018 05:18
[2018-02-03] MEDS ORDERED: PHARMACY TO DOSE IV SCH (05:45)
[2018-02-03] MEDS: inSUlin ASPART (NovoLOG) 1 UNIT/0.01 ML (CHARGE PER UNIT) SC SCH ×4 (06:00→23:45)
[2018-02-03 06:11] LABS: BASOPHILS % (AUTO) 0 % (0-10); EOSINOPHILS # (AUTO) 0.2 10^3/uL (0.0-0.3); EOSINOPHILS % (AUTO) 2 % (0-10); HEMATOCRIT 22 % (40-54); HEMOGLOBIN 7.4 G/DL (13.3-17.7); LYMPHOCYTES # (AUTO) 0.6 X 10^3 (1.0-4.0); LYMPHOCYTES % (AUTO) 6 % (12-44); MEAN CORPUSCULAR HEMOGLOBIN 30 PG (25-34); MEAN CORPUSCULAR HGB CONC 33 G/DL (32-36); MEAN CORPUSCULAR VOLUME 89 FL (80-99); MEAN PLATELET VOLUME 10.4 FL (7.4-10.4); MONOCYTES # (AUTO) 0.9 X 10^3 (0.0-1.0); MONOCYTES % (AUTO) 8 % (0-12); NEUTROPHILS # (AUTO) 9.2 X 10^3 (1.8-7.8); NEUTROPHILS % (AUTO) 85 % (42-75); PLATELET COUNT 168 10^3/uL (130-400); RED CELL DISTRIBUTION WIDTH 12.7 % (10.0-14.5); WHITE BLOOD COUNT 10.8 10^3/uL (4.3-11.0)
[2018-02-03 06:29] LABS: BILIRUBIN,TOTAL 0.5 MG/DL (0.1-1.0); CALCIUM 7.7 MG/DL (8.5-10.1); CREATININE SERUM 2.39 MG/DL (0.60-1.30); MAGNESIUM 2.9 MG/DL (1.8-2.4); PHOSPHORUS 4.5 MG/DL (2.3-4.7); POTASSIUM 5.2 MMOL/L (3.6-5.0); TOTAL PROTEIN 5.3 GM/DL (6.4-8.2)
[2018-02-03] MEDS: RT-ALBUTEROL/IPRATROPIUM 3 ML (DUONEB) VIAL INH SCH ×5 (06:44→22:01)
[2018-02-03] MEDS ORDERED: VANCOMYCIN INJECTION 2,500 MG in NS IV 500 ML 500 ML IV NR (07:00)
[2018-02-03] MEDS: GLIMEPIRIDE 4 MG (AMARYL) TAB PO SCH (07:20)
[2018-02-03] MEDS: MULTIVIT W/MINERALS TAB (THERAGRAN M) PO SCH (07:20)
[2018-02-03] MEDS: KCL 20 MEQ TAB (K-DUR) PO SCH (07:20)
[2018-02-03] MEDS ORDERED: PANTOPRAZOLE 40 MG (PROTONIX) VIAL ONE (07:30)
--- NOTE | 2018-02-03 07:30 | Diagnostic Imaging Report ---
Clinical indication: Patient is intubated. Exam: Portable chest x-ray semi- upright view. Comparisons: Chest x-ray dated 02/03/2018. Findings: ET tube is seen in good position roughly 9 mm from the level of the raffaele and at the T2-T3 level. There is slight improved aeration of both lungs compared to the prior study with residual mild bibasilar infiltrates and/or atelectasis. There is no pleural effusion or pneumothorax. Cardiomegaly is again seen. There is mild prominence of the pulmonary vasculature seen centrally. The remainder of this exam shows no significant interval change compared to the prior study of comparison. Impression: 1.: Interval placement of ET tube in good position, as described above. 2: Improved aeration of both lungs with residual bibasilar atelectasis versus infiltrate. 3: Stable cardiomegaly and mild prominence of the pulmonary vasculature centrally. Dictated by: Dictated on workstation # [id number]
--- NOTE | 2018-02-03 07:33 | Progress Note (SOAP) ---
Subjective Time Seen by Provider: 07:30 Subjective/Events-last exam Patient seen last night and was confused. Patient sent to ICU. Patient had respiratory failure. . Patient put on ventilator. This morning troponin elevated. BNP elevated. Renal insufficiency. Diabetes. Patient recently had cervical surgery. Patient's hemoglobin 7.2 Focused Exam Lactate Level 02/02/18 08:55: Lactic Acid Level 0.74 02/03/18 05:50: Lactic Acid Level 0.53 Lactic Acid Level Laboratory Tests Test 02/03/18 05:50 Lactic Acid Level 0.53 MMOL/L (0.50-2.00) Objective Exam Vital Signs Date Time Temp Pulse Resp B/P (MAP) Pulse Ox O2 Delivery O2 Flow Rate FiO2 02/03/18 06:44 75 16 100 80 02/03/18 06:00 72 13 93/57 (69) 98 Mechanical Ventilator 80.00 02/03/18 05:25 Mechanical Ventilator 80.00 02/03/18 05:18 85 18 98 100 02/03/18 05:00 81 16 106/76 (86) 95 Mechanical Ventilator 100.00 02/03/18 04:00 70 12 134/91 (105) 99 NIV Bilevel 30.00 02/03/18 04:00 NIV Bilevel 30 02/03/18 03:25 82 24 99 30.00 02/03/18 03:00 83 23 142/89 (106) 98 NIV Bilevel 30.00 02/03/18 02:42 NIV Bilevel 30.00 02/03/18 02:31 NIV CPAP 7.00 02/03/18 02:00 100 20 142/89 (106) 92 NIV Bilevel 30.00 02/03/18 01:10 100 02/03/18 01:00 95 02/03/18 01:00 96 30 155/86 (109) 100 NIV Bilevel 30.00 02/03/18 00:58 92 25 100 40.00 02/03/18 00:00 92 14 142/89 (106) 91 NIV CPAP 7.00 02/03/18 00:00 NIV CPAP 5.00 02/02/18 23:24 NIV CPAP 7.00 02/02/18 23:00 95 13 139/100 (113) 96 NIV CPAP 7.00 02/02/18 22:00 97 18 140/118 (125) 96 NIV CPAP 7.00 02/02/18 21:23 NIV CPAP 7.00 02/02/18 21:08 NIV CPAP 5.00 02/02/18 21:00 96 10 141/94 (110) 96 Nasal Cannula 5.00 02/02/18 21:00 Nasal Cannula 5.00 02/02/18 20:45 98 19 124/97 (106) 92 Nasal Cannula 5.00 02/02/18 20:30 143/85 (104) Nasal Cannula 5.00 02/02/18 20:15 99.4 112/75 (87) Nasal Cannula 5.00 02/02/18 20:06 77 02/02/18 19:57 145/89 (107) Nasal Cannula 5.00 02/02/18 19:30 99.5 98 20 135/72 (93) 81 Nasal Cannula 2.00 02/02/18 16:00 99.5 89 20 141/69 (93) 92 Nasal Cannula 2.00 02/02/18 13:00 88 02/02/18 12:00 100.7 86 20 137/69 (91) 95 Nasal Cannula 2.00 02/02/18 09:00 Nasal Cannula 2.00 02/02/18 08:00 100.5 98 20 155/85 (108) 94 Nasal Cannula 2.00 I & O 02/03/18 06:59 Intake Total 740 ml Output Total 2930 ml Balance -2190 ml Capillary Refill : Less Than 3 Seconds General Appearance: Other (Patient on ventilator) Neck: Other (And cervical surgery) Respiratory: No Accessory Muscle Use, No Respiratory Distress, Decreased Breath Sounds Cardiovascular: Regular Rate, Rhythm, No Murmur Gastrointestinal: non tender, soft Results Lab Laboratory Tests 02/02/18 20:10 02/03/18 03:26 02/03/18 05:50 Laboratory Tests 02/02/18 08:55: Lactic Acid Level 0.74 02/02/18 10:16: Glucometer 248H 02/02/18 10:35: Urine Color YELLOW, Urine Clarity SLIGHTLY CLOUDY, Urine pH 5, Urine Specific [place] 1.015L, Urine Protein 3+H, Urine Glucose (UA) 1+H, Urine Ketones NEGATIVE, Urine Nitrite NEGATIVE, Urine Bilirubin NEGATIVE, Urine Urobilinogen NORMAL, Urine Leukocyte Esterase 1+H, Urine RBC (Auto) 4+H, Urine RBC 2-5H, Urine WBC 0-2, Urine Squamous Epithelial Cells NONE, Urine Crystals NONE, Urine Bacteria NEGATIVE, Urine Casts NONE, Urine Mucus NEGATIVE, Urine Culture Indicated NO 02/02/18 15:11: Glucometer 257H 02/02/18 20:04: Blood Gas Puncture Site LEFT RADIAL, Blood Gas Patient Temperature 99.4, Arterial Blood pH 7.30*L, Arterial Blood Partial Pressure CO2 53H, Arterial Blood Partial Pressure O2 71L, Arterial Blood HCO3 25, Arterial Blood Total CO2 26.7, Arterial Blood Oxygen Saturation 94, Arterial Blood Base Excess -0.4, Jem Test YES-POS, Blood Gas Ventilator Setting NO, Blood Gas Inspired Oxygen 5L NC 02/02/18 20:10: White Blood Count 13.4H, Red Blood Count 3.06L, Hemoglobin 8.7L, Hematocrit 27L , Mean Corpuscular Volume 87, Mean Corpuscular Hemoglobin 28, Mean Corpuscular Hemoglobin Concent 33, Red Cell Distribution Width 13.2, Platelet Count 200, Mean Platelet Volume 10.4, Neutrophils (%) (Auto) 84H, Lymphocytes (%) (Auto) 7L , Monocytes (%) (Auto) 9, Eosinophils (%) (Auto) 1, Basophils (%) (Auto) 0, Neutrophils # (Auto) 11.2H, Lymphocytes # (Auto) 0.9L, Monocytes # (Auto) 1.2H, Eosinophils # (Auto) 0.1, Basophils # (Auto) 0.0, Sodium Level 136, Potassium Level 5.3H, Chloride Level 104, Carbon Dioxide Level 24, Anion Gap 8, Blood Urea Nitrogen 73H, Creatinine 2.43H, Estimat Glomerular Filtration Rate 28, BUN/ Creatinine Ratio 30, Glucose Level 216H, Calcium Level 8.5, Corrected Calcium 8.7, Total Bilirubin 0.6, Aspartate Amino Transf (AST/SGOT) 25, Alanine Aminotransferase (ALT/SGPT) 12, Alkaline Phosphatase 85, Total Protein 6.4, Albumin 3.7 02/02/18 21:28: Glucometer 210H 02/02/18 23:15: Blood Gas Puncture Site LEFT RADIAL, Blood Gas Patient Temperature 98.3, Arterial Blood pH 7.28*L, Arterial Blood Partial Pressure CO2 56H, Arterial Blood Partial Pressure O2 87, Arterial Blood HCO3 25, Arterial Blood Total CO2 27.1, Arterial Blood Oxygen Saturation 98, Arterial Blood Base Excess -0.6, Jem Test YES-POS, Blood Gas Ventilator Setting NO, Blood Gas Inspired Oxygen 7L 02/03/18 03:05: Blood Gas Puncture Site LEFT RADIAL, Blood Gas Patient Temperature 98.0, Arterial Blood pH 7.27*L, Arterial Blood Partial Pressure CO2 59H, Arterial Blood Partial Pressure O2 75L, Arterial Blood HCO3 26, Arterial Blood Total CO2 28.0, Arterial Blood Oxygen Saturation 95, Arterial Blood Base Excess 0.0, Jem Test YES-POS, Blood Gas Ventilator Setting NO, Blood Gas Inspired Oxygen 35% 02/03/18 03:26: White Blood Count 13.4H, Red Blood Count 2.98L, Hemoglobin 8.6L, Hematocrit 26L , Mean Corpuscular Volume 87, Mean Corpuscular Hemoglobin 29, Mean Corpuscular Hemoglobin Concent 33, Red Cell Distribution Width 12.8, Platelet Count 197, Mean Platelet Volume 10.5H, Neutrophils (%) (Auto) 80H, Lymphocytes (%) (Auto) 9L, Monocytes (%) (Auto) 10, Eosinophils (%) (Auto) 2, Basophils (%) (Auto) 0, Neutrophils # (Auto) 10.7H, Lymphocytes # (Auto) 1.2, Monocytes # (Auto) 1.3H, Eosinophils # (Auto) 0.2, Basophils # (Auto) 0.0, Sodium Level 137, Potassium Level 5.1H, Chloride Level 104, Carbon Dioxide Level 25, Anion Gap 8, Blood Urea Nitrogen 72H, Creatinine 2.38H, Estimat Glomerular Filtration Rate 29, BUN/ Creatinine Ratio 30, Glucose Level 174H, Calcium Level 8.6, Corrected Calcium 9.0, Phosphorus Level 4.3, Magnesium Level 3.1H, Total Bilirubin 0.5, Aspartate Amino Transf (AST/SGOT) 25, Alanine Aminotransferase (ALT/SGPT) 16, Alkaline Phosphatase 75, Total Protein 6.1L, Albumin 3.5 02/03/18 05:50: White Blood Count 10.8, Red Blood Count 2.50L, Hemoglobin 7.4L, Hematocrit 22L, Mean Corpuscular Volume 89, Mean Corpuscular Hemoglobin 30, Mean Corpuscular Hemoglobin Concent 33, Red Cell Distribution Width 12.7, Platelet Count 168, Mean Platelet Volume 10.4, Neutrophils (%) (Auto) 85H, Lymphocytes (%) (Auto) 6L , Monocytes (%) (Auto) 8, Eosinophils (%) (Auto) 2, Basophils (%) (Auto) 0, Neutrophils # (Auto) 9.2H, Lymphocytes # (Auto) 0.6L, Monocytes # (Auto) 0.9, Eosinophils # (Auto) 0.2, Basophils # (Auto) 0.0, Sodium Level 136, Potassium Level 5.2H, Chloride Level 106, Carbon Dioxide Level 23, Anion Gap 7, Blood Urea Nitrogen 73H, Creatinine 2.39H, Estimat Glomerular Filtration Rate 29, BUN/ Creatinine Ratio 31, Glucose Level 184H, Calcium Level 7.7L, Corrected Calcium 8.5, Phosphorus Level 4.5, Magnesium Level 2.9H, Total Bilirubin 0.5, Aspartate Amino Transf (AST/SGOT) 26, Alanine Aminotransferase (ALT/SGPT) 16, Alkaline Phosphatase 70, Total Protein 5.3L, Albumin 3.0L, Lactic Acid Level 0.53, Troponin I 0.49*H, B-Type Natriuretic Peptide 1004.2H Microbiology 01/31/18 Genital Culture - Preliminary, Resulted See Comments 01/30/18 MRSA Screen - Final, Complete MRSA not isolated 01/31/18 Urine Culture - Final, Complete NO GROWTH Assessment/Plan Assessment/Plan Assess & Plan/Chief Complaint Mild opacity. Cervical surgery. Diabetes. Coronary artery disease. Diabetic retinopathy. . 02/01/18. Myelopathy. Diabetes. Hyperkalemia. Coronary artery disease. Diabetes. Diabetic neuropathy. Confusion yesterday. Weakness yesterday. Failure 02/02/18. Myelopathy. Diabetes. Hypokalemia. Febrile. Leukocytosis. Renal insufficiency. Confusion at times.. . 02/03/18 myelopathy. Diabetes. Respiratory failure. Non-ST elevated ME. Congestive heart failure. Renal insufficiency. Patient on ventilator. Patient anemic. Clinical Quality Measures DVT/VTE Risk/Contraindication: Risk Factor Score Per Nursin RFS Level Per Nursing on Admit: 2=Moderate MARIIA SIM DO Feb 03, 2018 07:33
[2018-02-03 08:12] LABS: ABG BASE EXCESS -2.9 MMOL/L (-2.5-2.5); ABG OXYGEN SATURATION 99 % (94-100); ABG PCO2 56 MMHG (35-45); ABG PO2 129 MMHG (79-93); ABG TCO2 25.1 MMOL/L (21.0-31.0)
[2018-02-03 08:14] LABS: ABG PH 7.25 (7.37-7.43); ALLENS TEST POSITIVE; INSPIRED O2 80%; PATIENT TEMP 98.5; VENTILATOR YES
[2018-02-03] MEDS: methylPREDNISolone 125 MG (Solu-MEDROL) VIAL IVP SCH ×4 (08:23→23:42)
[2018-02-03] MEDS: PIPERACILLIN SODIUM/TAZOBACTAM 4.5 GM in D5W 100 ML IVPB 100 ML IV SCH ×3 (08:24→20:37)
[2018-02-03] MEDS: FAMOTIDINE 20 MG (PEPCID) TABLET PO SCH (08:28)
[2018-02-03] MEDS: POTASSIUM CL 10MEQ/50ML IVPB 50 ML IV SCH (08:28)
[2018-02-03] MEDS: MAGNESIUM 1 GM/100 ML IVPB 100 ML IV SCH (08:29)
[2018-02-03] MEDS: GABAPENTIN 600 MG (NEURONTIN) TAB PO SCH ×2 (08:30→15:00)
[2018-02-03] MEDS: MILK OF MAGNESIA 400 MG/5 ML 30 ML UDC PO SCH (08:31)
--- NOTE | 2018-02-03 08:44 | Diagnostic Imaging Report ---
INDICATION: Dyspnea. TECHNIQUE: A single view chest was obtained at 2:59 AM. CORRELATION STUDY: 02/02/2018. FINDINGS: The heart size is enlarged and the mediastinum is prominent. The vascularity is slightly increased. Scattered pulmonary parenchymal densities are noted throughout both lung kunz. Some of this may be accentuated by the limited depth of inspiration. There is partial visualization of cervical spinal fusion hardware. IMPRESSION: Cardiac enlargement with mild vascular prominence. Scattered pulmonary parenchymal densities are likely largely attributed to the limited depth of inspiration. Dictated by: Dictated on workstation # [id number]
[2018-02-03] MEDS: SENNOSIDES 8.6 MG (SENOKOT) TAB PO SCH ×2 (09:00→20:37)
--- NOTE | 2018-02-03 09:07 | Diagnostic Imaging Report ---
INDICATION: Tube advancement. TIME OF EXAM: 08:42 a.m. Correlation is made with prior study earlier same day. Endotracheal tube has been advanced. Tip is now located at the level of the clavicular heads in good position above the raffaele. Bilateral infiltrates persist. There is no pneumothorax. IMPRESSION: Satisfactory endotracheal tube repositioning. Dictated by: Dictated on workstation # [id number]
[2018-02-03] MEDS: amLODIPine 10 MG (NORVASC) TAB PO SCH (09:10)
--- NOTE | 2018-02-03 09:27 | Cardiology Progress Note ---
Subjective Date Seen by Provider: Feb 03, 2018 Time Seen by Provider: 09:21 Subjective/Events-last exam patient had worsening respiratory failure last night, he was transferred to the intensive care unit on BiPAP, had very difficult intubation process. Currently ventilator dependent. Not responsive. Review of Systems General: Other (unable to provide review of system) Focused Exam Lactate Level 02/02/18 08:55: Lactic Acid Level 0.74 02/03/18 05:50: Lactic Acid Level 0.53 Lactic Acid Level Laboratory Tests Test 02/03/18 05:50 Lactic Acid Level 0.53 MMOL/L (0.50-2.00) Objective-Cardiology Exam Last Set of Vital Signs Vital Signs 02/03/18 02/03/18 02/03/18 06:44 07:10 08:00 Temp 98.5 Pulse 89 Resp 19 B/P (MAP) 115/62 (79) Pulse Ox 99 O2 Delivery Mechanical Ventilator O2 Flow Rate 70.00 FiO2 80 Capillary Refill : Less Than 3 Seconds I&O Intake and Output 02/03/18 00:00 Intake Total 1090 ml Output Total 1230 ml Balance -140 ml Intake Oral 1090 ml Output Urine Total 1230 ml # Voids 1 General: Severe Distress HEENT: Atraumatic, PERRLA Neck: Supple, No JVD, No Thyromegaly Lungs: Normal Air Movement, Other (bilateral rhonchi) Heart: Regular Rate, Normal S1, Normal S2, No Murmurs Abdomen: Normal Bowel Sounds, Soft, No Tenderness, No Hepatosplenomegaly, No Masses Extremities: No Clubbing, No Cyanosis, Normal Pulses, No Tenderness/Swelling Skin: No Rashes, No Breakdown, No Significant Lesion, Other (surgical site on the neck is covered) Neuro: Other (Intubated and unresponsive) Results Lab Laboratory Tests 02/02/18 20:10 02/03/18 03:26 02/03/18 05:50 A/P-Cardiology Admission Diagnosis Acute respiratory failure Acute renal failure Coronary artery disease Spinal stenosis Assessment/Plan Acute respiratory failure, difficult intubation required multiple attempts, currently ventilator dependent managed by Dr. Gao. Patient had chest pain initially, EKG and cardiac enzymes did not show any acute abnormality. Currently troponin is elevated probably secondary to prolonged hypoxemia. Underlying coronary artery disease cannot be entirely excluded. Acute on chronic renal failure. Given Lasix, monitor renal function closely. Status post fever and leukocytosis, lactic acid was negative. Started on antibiotics empirically Spinal stenosis, status post C3-7 ACDF with C5 corpectomy done by Dr. Hardwick. Hyperkalemia, continue to monitor electrolytes Coronary artery disease, history of cardiac catheterization done by Dr. Longoria which showed mild nonobstructive disease repeat cardiac catheterization done in 2017 showing severe stenosis in the mid LAD successful stenting using Alpine 3.0 18 mm stent expanded to 3.25 mm with good results, mild to moderate disease in the proximal portion of the LAD, moderate disease in the distal circumflex artery. Carotid artery stenosis-mild nonobstructive disease per carotid duplex done July 2017, continue to monitor Diabetes mellitus, managed by Dr. Younger. Diabetic neuropathy, followed and managed by Dr. Younger. Hypertension, currently cannot take oral medication, no NG tube. Monitor blood pressure and will use IV beta blockers as needed Hyperlipidemia, intolerant to Lipitor with severe diarrhea, continue to monitor for now History of erectile dysfunction, most likely secondary to peripheral neuropathy. Lower extremity pain, likely secondary to neuropathy, patient underwent peripheral angiogram done February 09, 2016 revealing mild to moderate disease in the anterior tibial of the left lower extremity and posterior tibial at 60-70 percent. Anterior tibial with good flow down to the ankle on the left lower extremity, otherwise mild disease in the right lower extremity and abdominal aorta. Continue maximizing medical therapy Clinical Quality Measures DVT/VTE Risk/Contraindication: Risk Factor Score Per Nursin RFS Level Per Nursing on Admit: 2=Moderate KAREN YANG MD Feb 03, 2018 09:27
[2018-02-03] MEDS: meTOprolol TARTRATE 50 MG (LOPRESSOR) TAB PO SCH ×2 (10:43→20:37)
--- NOTE | 2018-02-03 12:11 | Physical Therapy Progress Note ---
Therapy Progress Note Pt. transfer to ICU and new orders received for PT. Pt. is currently sedated, hold PT per nurse. MARIANELA ARENAS PT Feb 03, 2018 12:11
[2018-02-03 12:40] LABS: BASOPHILS % (AUTO) 0 % (0-10); EOSINOPHILS % (AUTO) 0 % (0-10); HEMATOCRIT 24 % (40-54); HEMOGLOBIN 7.8 G/DL (13.3-17.7); LYMPHOCYTES # (AUTO) 0.4 X 10^3 (1.0-4.0); LYMPHOCYTES % (AUTO) 3 % (12-44); MEAN CORPUSCULAR HEMOGLOBIN 29 PG (25-34); MEAN CORPUSCULAR HGB CONC 33 G/DL (32-36); MEAN CORPUSCULAR VOLUME 88 FL (80-99); MEAN PLATELET VOLUME 10.9 FL (7.4-10.4); MONOCYTES # (AUTO) 0.4 X 10^3 (0.0-1.0); MONOCYTES % (AUTO) 3 % (0-12); NEUTROPHILS # (AUTO) 12.7 X 10^3 (1.8-7.8); NEUTROPHILS % (AUTO) 93 % (42-75); PLATELET COUNT 174 10^3/uL (130-400); RED BLOOD COUNT 2.68 10^6/uL (4.35-5.85); RED CELL DISTRIBUTION WIDTH 12.4 % (10.0-14.5); WHITE BLOOD COUNT 13.6 10^3/uL (4.3-11.0)
[2018-02-03 12:48] LABS: CREATININE SERUM 2.48 MG/DL (0.60-1.30); POTASSIUM 5.1 MMOL/L (3.6-5.0)
--- NOTE | 2018-02-03 13:16 | Diagnostic Imaging Report ---
PROCEDURE: CT head without contrast. TECHNIQUE: Multiple contiguous axial images were obtained through the brain without the use of intravenous contrast. INDICATION: Hypoxia COMPARISON: There are no prior studies available for comparison. There is no mass, shift of the midline or hemorrhage to suggest an acute abnormality. There is no sign of an asymmetric hyperdense vessel. The normal tentorial blush is evident. The ventricles are not abnormally dilated. The bone windows show no sign of a fracture or of a destructive lesion. The orbits are symmetrical and within normal limits. There is fairly severe ethmoid sinusitis. There is also a 1 cm retention cyst in the right maxillary antrum. The sinuses are otherwise generally clear, where visualized. IMPRESSION: 1. There is no evidence for an acute intracranial abnormality. 2. If clinical concern regarding an underlying abnormality persists, MRI would be recommended for further study. Dictated by: Dictated on workstation # [id number]
--- NOTE | 2018-02-03 13:17 | Anesthesia-Procedure Note ---
Procedures/Interventions Procedure Start/Stop/Diagnosis Date of Procedure: Feb 03, 2018 Start Time: 12:05 Referring Physician: Dr Gao Preprocedural Diagnosis: Respiratory Failure, S/P ACDF Brief History Called to ICU for an arterial line placement. Pt is POD 4 from ACDF. He was intubated this morning due to respiratory failure. Stop Time: 12:15 Postprocedural Diagnosis: same Arterial Line Arterial Line Catheter: 20G Type: Radial Location: Left Procedure: prepped, draped in sterile fashion (ChloraPrep with Sterile towel drapes. ), good wave-form was obtained, patient tolerated procedure well, no immediate complications, post procedure area cleaned, post procedure dressing applied LUIS HIGUERA DO Feb 03, 2018 13:17
--- NOTE | 2018-02-03 13:36 | Diagnostic Imaging Report ---
INDICATION: Status post neck surgery, in need of intubation. TIME OF EXAMINATION: 1:30 PM. TECHNIQUE: A lateral portable view of the cervical spine was obtained. FINDINGS: An endotracheal tube is in place. There are postop changes in the cervical spine with anterior plate and screws extending from C3 to approximately C7. The inferior portions are obscured by soft tissues. The overall alignment appears normal. IMPRESSION: Cervical surgery of ACDF from C3 to approximately C7. The overall alignment appears to be satisfactory. Dictated by: Dictated on workstation # [id number]
[2018-02-03] MEDS ORDERED: NS IV 1000 ML 1,000 ML IV SCH (14:00)
--- NOTE | 2018-02-03 14:15 | Occ Therapy Progress Note ---
Therapy Progress Note Pt was transferred to ICU secondary to decline in medical status. New orders received for OT. Pt is intubated and sedated. Will hold OT at this time. Will monitor and initiate OT intervention as appropriate. BRENT COLLAZO OT Feb 03, 2018 14:15
[2018-02-03] MEDS: fentaNYL INJECTION 1,250 MCG in NS (IVPB) 225 ML IV SCH (14:55)
[2018-02-03] MEDS ORDERED: PATIENT MAY USE OWN MEDS, ALL PO SCH (15:45)
--- NOTE | 2018-02-03 15:51 | Cardiac Cath Report ---
Cardiac Cath Report Physician (s)/Order Department Supervisor (s) Physician KAREN YANG MD Post-Procedure Note Name of Procedure: Please disregard this report, it was entered in error KAREN YANG MD Feb 03, 2018 3:51 pm
--- NOTE | 2018-02-03 16:37 | Progress Note (SOAP) ---
Subjective Date Seen by Provider: Feb 03, 2018 Time Seen by Provider: 16:33 Subjective/Events-last exam POD #4 ACDF with corpectomy, tansferred to ICU last night for respiratory failure and was intubated. Continued to have confusion prior to this. Focused Exam Lactate Level 02/02/18 08:55: Lactic Acid Level 0.74 02/03/18 05:50: Lactic Acid Level 0.53 Objective Exam Vital Signs Date Time Temp Pulse Resp B/P (MAP) Pulse Ox O2 Delivery O2 Flow Rate FiO2 02/03/18 15:00 87 20 112/52 (72) 98 Mechanical Ventilator 70.00 02/03/18 14:07 95 21 97 70 02/03/18 14:00 86 20 147/57 (87) 99 Mechanical Ventilator 70.00 02/03/18 13:00 90 19 145/49 (81) 98 Mechanical Ventilator 70.00 02/03/18 13:00 92 02/03/18 12:00 88 19 120/61 (80) 99 Mechanical Ventilator 70.00 02/03/18 12:00 99.0 02/03/18 11:35 95 20 157/74 98 Mechanical Ventilator 02/03/18 11:00 88 20 135/70 (91) 99 Mechanical Ventilator 70.00 02/03/18 10:00 90 20 151/78 (102) 99 Mechanical Ventilator 70.00 02/03/18 09:58 89 20 98 70 02/03/18 09:00 Mechanical Ventilator 70 02/03/18 09:00 87 19 116/72 (87) 99 Mechanical Ventilator 70.00 02/03/18 08:00 89 19 115/62 (79) 99 Mechanical Ventilator 70.00 02/03/18 07:10 98.5 02/03/18 07:00 74 02/03/18 07:00 74 7 132/78 (96) 100 Mechanical Ventilator 80.00 02/03/18 07:00 99.2 02/03/18 06:44 75 16 100 80 02/03/18 06:00 72 13 93/57 (69) 98 Mechanical Ventilator 80.00 02/03/18 05:25 Mechanical Ventilator 80.00 02/03/18 05:18 85 18 98 100 02/03/18 05:00 81 16 106/76 (86) 95 Mechanical Ventilator 100.00 02/03/18 05:00 98.5 02/03/18 04:00 70 12 134/91 (105) 99 NIV Bilevel 30.00 02/03/18 04:00 NIV Bilevel 30 02/03/18 03:25 82 24 99 30.00 02/03/18 03:00 83 23 142/89 (106) 98 NIV Bilevel 30.00 02/03/18 02:42 NIV Bilevel 30.00 02/03/18 02:31 NIV CPAP 7.00 02/03/18 02:00 100 20 142/89 (106) 92 NIV Bilevel 30.00 02/03/18 01:10 100 02/03/18 01:00 95 02/03/18 01:00 96 30 155/86 (109) 100 NIV Bilevel 30.00 02/03/18 00:58 92 25 100 40.00 02/03/18 00:00 92 14 142/89 (106) 91 NIV CPAP 7.00 02/03/18 00:00 NIV CPAP 5.00 02/02/18 23:24 NIV CPAP 7.00 02/02/18 23:00 95 13 139/100 (113) 96 NIV CPAP 7.00 02/02/18 22:00 97 18 140/118 (125) 96 NIV CPAP 7.00 02/02/18 21:23 NIV CPAP 7.00 02/02/18 21:08 NIV CPAP 5.00 02/02/18 21:00 96 10 141/94 (110) 96 Nasal Cannula 5.00 02/02/18 21:00 Nasal Cannula 5.00 02/02/18 20:45 98 19 124/97 (106) 92 Nasal Cannula 5.00 02/02/18 20:30 143/85 (104) Nasal Cannula 5.00 02/02/18 20:15 99.4 112/75 (87) Nasal Cannula 5.00 02/02/18 20:06 77 02/02/18 19:57 145/89 (107) Nasal Cannula 5.00 02/02/18 19:30 99.5 98 20 135/72 (93) 81 Nasal Cannula 2.00 I & O 02/03/18 06:59 Intake Total 740 ml Output Total 2930 ml Balance -2190 ml Capillary Refill : Less Than 3 Seconds General Appearance: Obese Neck: No JVD; Other (incison dressing clean and dry) Respiratory: Other (intubated and on vent) Cardiovascular: Tachycardia Extremity: Normal Capillary Refill, Normal Inspection Neurologic/Psychiatric: Other (unconcious) Results Lab Laboratory Tests 02/02/18 20:04: Blood Gas Puncture Site LEFT RADIAL, Blood Gas Patient Temperature 99.4, Arterial Blood pH 7.30*L, Arterial Blood Partial Pressure CO2 53H, Arterial Blood Partial Pressure O2 71L, Arterial Blood HCO3 25, Arterial Blood Total CO2 26.7, Arterial Blood Oxygen Saturation 94, Arterial Blood Base Excess -0.4, Jem Test YES-POS, Blood Gas Ventilator Setting NO, Blood Gas Inspired Oxygen 5L NC 02/02/18 20:10: White Blood Count 13.4H, Red Blood Count 3.06L, Hemoglobin 8.7L, Hematocrit 27L , Mean Corpuscular Volume 87, Mean Corpuscular Hemoglobin 28, Mean Corpuscular Hemoglobin Concent 33, Red Cell Distribution Width 13.2, Platelet Count 200, Mean Platelet Volume 10.4, Neutrophils (%) (Auto) 84H, Lymphocytes (%) (Auto) 7L , Monocytes (%) (Auto) 9, Eosinophils (%) (Auto) 1, Basophils (%) (Auto) 0, Neutrophils # (Auto) 11.2H, Lymphocytes # (Auto) 0.9L, Monocytes # (Auto) 1.2H, Eosinophils # (Auto) 0.1, Basophils # (Auto) 0.0, Sodium Level 136, Potassium Level 5.3H, Chloride Level 104, Carbon Dioxide Level 24, Anion Gap 8, Blood Urea Nitrogen 73H, Creatinine 2.43H, Estimat Glomerular Filtration Rate 28, BUN/ Creatinine Ratio 30, Glucose Level 216H, Calcium Level 8.5, Corrected Calcium 8.7, Total Bilirubin 0.6, Aspartate Amino Transf (AST/SGOT) 25, Alanine Aminotransferase (ALT/SGPT) 12, Alkaline Phosphatase 85, Total Protein 6.4, Albumin 3.7 02/02/18 21:28: Glucometer 210H 02/02/18 23:15: Blood Gas Puncture Site LEFT RADIAL, Blood Gas Patient Temperature 98.3, Arterial Blood pH 7.28*L, Arterial Blood Partial Pressure CO2 56H, Arterial Blood Partial Pressure O2 87, Arterial Blood HCO3 25, Arterial Blood Total CO2 27.1, Arterial Blood Oxygen Saturation 98, Arterial Blood Base Excess -0.6, Jem Test YES-POS, Blood Gas Ventilator Setting NO, Blood Gas Inspired Oxygen 7L 02/03/18 03:05: Blood Gas Puncture Site LEFT RADIAL, Blood Gas Patient Temperature 98.0, Arterial Blood pH 7.27*L, Arterial Blood Partial Pressure CO2 59H, Arterial Blood Partial Pressure O2 75L, Arterial Blood HCO3 26, Arterial Blood Total CO2 28.0, Arterial Blood Oxygen Saturation 95, Arterial Blood Base Excess 0.0, Jem Test YES-POS, Blood Gas Ventilator Setting NO, Blood Gas Inspired Oxygen 35% 02/03/18 03:26: White Blood Count 13.4H, Red Blood Count 2.98L, Hemoglobin 8.6L, Hematocrit 26L , Mean Corpuscular Volume 87, Mean Corpuscular Hemoglobin 29, Mean Corpuscular Hemoglobin Concent 33, Red Cell Distribution Width 12.8, Platelet Count 197, Mean Platelet Volume 10.5H, Neutrophils (%) (Auto) 80H, Lymphocytes (%) (Auto) 9L, Monocytes (%) (Auto) 10, Eosinophils (%) (Auto) 2, Basophils (%) (Auto) 0, Neutrophils # (Auto) 10.7H, Lymphocytes # (Auto) 1.2, Monocytes # (Auto) 1.3H, Eosinophils # (Auto) 0.2, Basophils # (Auto) 0.0, Sodium Level 137, Potassium Level 5.1H, Chloride Level 104, Carbon Dioxide Level 25, Anion Gap 8, Blood Urea Nitrogen 72H, Creatinine 2.38H, Estimat Glomerular Filtration Rate 29, BUN/ Creatinine Ratio 30, Glucose Level 174H, Calcium Level 8.6, Corrected Calcium 9.0, Phosphorus Level 4.3, Magnesium Level 3.1H, Total Bilirubin 0.5, Aspartate Amino Transf (AST/SGOT) 25, Alanine Aminotransferase (ALT/SGPT) 16, Alkaline Phosphatase 75, Total Protein 6.1L, Albumin 3.5 02/03/18 05:50: White Blood Count 10.8, Red Blood Count 2.50L, Hemoglobin 7.4L, Hematocrit 22L, Mean Corpuscular Volume 89, Mean Corpuscular Hemoglobin 30, Mean Corpuscular Hemoglobin Concent 33, Red Cell Distribution Width 12.7, Platelet Count 168, Mean Platelet Volume 10.4, Neutrophils (%) (Auto) 85H, Lymphocytes (%) (Auto) 6L , Monocytes (%) (Auto) 8, Eosinophils (%) (Auto) 2, Basophils (%) (Auto) 0, Neutrophils # (Auto) 9.2H, Lymphocytes # (Auto) 0.6L, Monocytes # (Auto) 0.9, Eosinophils # (Auto) 0.2, Basophils # (Auto) 0.0, Sodium Level 136, Potassium Level 5.2H, Chloride Level 106, Carbon Dioxide Level 23, Anion Gap 7, Blood Urea Nitrogen 73H, Creatinine 2.39H, Estimat Glomerular Filtration Rate 29, BUN/ Creatinine Ratio 31, Glucose Level 184H, Calcium Level 7.7L, Corrected Calcium 8.5, Phosphorus Level 4.5, Magnesium Level 2.9H, Total Bilirubin 0.5, Aspartate Amino Transf (AST/SGOT) 26, Alanine Aminotransferase (ALT/SGPT) 16, Alkaline Phosphatase 70, Total Protein 5.3L, Albumin 3.0L, Lactic Acid Level 0.53, Troponin I 0.49*H, B-Type Natriuretic Peptide 1004.2H, Triglycerides Level 108 02/03/18 08:07: Blood Gas Puncture Site RT RAD, Blood Gas Patient Temperature 98.5, Arterial Blood pH 7.25*L, Arterial Blood Partial Pressure CO2 56H, Arterial Blood Partial Pressure O2 129H, Arterial Blood HCO3 23, Arterial Blood Total CO2 25.1 , Arterial Blood Oxygen Saturation 99, Arterial Blood Base Excess -2.9L, Jem Test POSITIVE, Blood Gas Ventilator Setting YES, Blood Gas Inspired Oxygen 80% 02/03/18 11:27: Glucometer 257H 02/03/18 12:24: White Blood Count 13.6H, Red Blood Count 2.68L, Hemoglobin 7.8L, Hematocrit 24L , Mean Corpuscular Volume 88, Mean Corpuscular Hemoglobin 29, Mean Corpuscular Hemoglobin Concent 33, Red Cell Distribution Width 12.4, Platelet Count 174, Mean Platelet Volume 10.9H, Neutrophils (%) (Auto) 93H, Lymphocytes (%) (Auto) 3L, Monocytes (%) (Auto) 3, Eosinophils (%) (Auto) 0, Basophils (%) (Auto) 0, Neutrophils # (Auto) 12.7H, Lymphocytes # (Auto) 0.4L, Monocytes # (Auto) 0.4, Eosinophils # (Auto) 0.0, Basophils # (Auto) 0.0, Sodium Level 137, Potassium Level 5.1H, Chloride Level 106, Carbon Dioxide Level 20L, Anion Gap 11, Blood Urea Nitrogen 74H, Creatinine 2.48H, Estimat Glomerular Filtration Rate 28, BUN/ Creatinine Ratio 30, Glucose Level 271H, Calcium Level 8.0L, Troponin I 0.35*H 02/03/18 14:38: Glucometer 313H Microbiology 01/31/18 Genital Culture - Final, Complete No growth 01/30/18 MRSA Screen - Final, Complete MRSA not isolated 01/31/18 Urine Culture - Final, Complete NO GROWTH Assessment/Plan Assessment/Plan Assess & Plan/Chief Complaint assessment: pod #5 s/p acdf respiratory failure dm cad htn titi hyperkalemia plan: continue plan per Dr Younger and Dr Perez monitor labs cxr reviewed, cervical x ray reviewed Clinical Quality Measures DVT/VTE Risk/Contraindication: Risk Factor Score Per Nursin RFS Level Per Nursing on Admit: 2=Moderate CASS WALTER Feb 03, 2018 16:37
[2018-02-03] MEDS: GLIMEPIRIDE 2 MG (AMARYL) TAB PO SCH (17:45)
[2018-02-03] MEDS: LORATADINE (CLARITIN) 10 MG TAB PO SCH (17:45)
[2018-02-03] MEDS: ROSUVASTATIN 5 MG (CRESTOR) TABLET PO SCH (20:37)
[2018-02-03] MEDS ORDERED: RT-ALBUTEROL/IPRATROPIUM 3 ML (DUONEB) VIAL IH PRN (23:30)
[2018-02-04] VITALS (69 sets, daily range): BP systolic 109–168; BP diastolic 47–71
[2018-02-04] MEDS ORDERED: inSUlin DETERMIR 1 UNIT/0.01 ML (LEVEMIR) CHARGE PER UNIT SQ ONE (01:15)
[2018-02-04] MEDS: inSUlin ASPART (NovoLOG) 1 UNIT/0.01 ML (CHARGE PER UNIT) SC SCH (01:15)
[2018-02-04] MEDS: RT-ALBUTEROL/IPRATROPIUM 3 ML (DUONEB) VIAL INH SCH ×6 (02:06→21:03)
[2018-02-04] MEDS: NS IV 1000 ML 1,000 ML IV SCH (02:28)
[2018-02-04] MEDS: PROPOFOL DRIP (ICU) 100 ML IV SCH ×7 (02:30→22:09)
[2018-02-04] MEDS: morphine INJ 4 MG/ML 1 ML (VIAL/SYRINGE) IVP PRN (02:40)
[2018-02-04] MEDS ORDERED: NORMAL SALINE 250 ML ONE (02:54)
[2018-02-04] MEDS ORDERED: inSUlin (REGULAR) HUMAN 1 UNIT/0.01 ML (CHARGE PER UNIT) ONE (02:55)
[2018-02-04] MEDS ORDERED: GLUCAGON EMERGENCY 1 MG/KIT IM PRN (03:00)
[2018-02-04] MEDS ORDERED: DEXTROSE 10% IV SOLUTION 1,000 ML IV PRN (03:00)
[2018-02-04] MEDS ORDERED: DEXTROSE 50% 50 ML (IMS) SYR IV PRN ×2 (03:00→04:00)
[2018-02-04] MEDS: INSULIN DRIP 250 UNITS/NS 250 ML IV SCH ×4 (03:15→16:45)
[2018-02-04 03:35] LABS: ABG BASE EXCESS -7.3 MMOL/L (-2.5-2.5); ABG OXYGEN SATURATION 94 % (94-100); ABG PCO2 44 MMHG (35-45); ABG PO2 66 MMHG (79-93); ABG TCO2 19.9 MMOL/L (21.0-31.0)
[2018-02-04 03:36] LABS: ABG PH 7.25 (7.37-7.43); ALLENS TEST ART LINE
[2018-02-04 03:37] LABS: INSPIRED O2 40%; PATIENT TEMP 98.9; VENTILATOR YES
[2018-02-04 03:39] LABS: BASOPHILS % (AUTO) 0 % (0-10); EOSINOPHILS % (AUTO) 0 % (0-10); HEMATOCRIT 24 % (40-54); HEMOGLOBIN 7.9 G/DL (13.3-17.7); LYMPHOCYTES # (AUTO) 0.4 X 10^3 (1.0-4.0); LYMPHOCYTES % (AUTO) 5 % (12-44); MEAN CORPUSCULAR HEMOGLOBIN 28 PG (25-34); MEAN CORPUSCULAR HGB CONC 33 G/DL (32-36); MEAN CORPUSCULAR VOLUME 86 FL (80-99); MEAN PLATELET VOLUME 10.9 FL (7.4-10.4); MONOCYTES # (AUTO) 0.2 X 10^3 (0.0-1.0); MONOCYTES % (AUTO) 2 % (0-12); NEUTROPHILS # (AUTO) 8.6 X 10^3 (1.8-7.8); NEUTROPHILS % (AUTO) 93 % (42-75); PLATELET COUNT 183 10^3/uL (130-400); RED CELL DISTRIBUTION WIDTH 12.3 % (10.0-14.5); WHITE BLOOD COUNT 9.3 10^3/uL (4.3-11.0)
[2018-02-04 03:53] LABS: CREATININE SERUM 2.35 MG/DL (0.60-1.30); MAGNESIUM 3.1 MG/DL (1.8-2.4); PHOSPHORUS 4.5 MG/DL (2.3-4.7); POTASSIUM 4.4 MMOL/L (3.6-5.0)
[2018-02-04] MEDS ORDERED: inSUlin ASPART (NovoLOG) 1 UNIT/0.01 ML (CHARGE PER UNIT) SC SCH (04:00)
[2018-02-04] MEDS ORDERED: NS IV 1000 ML 1,000 ML IV SCH (04:00)
[2018-02-04] MEDS ORDERED: inSUlin (REGULAR) HUMAN 1 UNIT/0.01 ML (CHARGE PER UNIT) IV PRN (04:00)
[2018-02-04] MEDS: POTASSIUM CL 10MEQ/50ML IVPB 50 ML IV SCH (04:21)
[2018-02-04] MEDS: MAGNESIUM 1 GM/100 ML IVPB 100 ML IV SCH (04:21)
[2018-02-04] MEDS: KCL 20 MEQ TAB (K-DUR) PO SCH (04:21)
[2018-02-04] MEDS: MULTIVIT W/MINERALS TAB (THERAGRAN M) PO SCH (04:22)
[2018-02-04] MEDS ORDERED: SODIUM BICARB 8.4% 50 MEQ/50 ML (ABBOTT) SYR ONE (04:37)
[2018-02-04] MEDS ORDERED: SODIUM BICARB 8.4% 50 MEQ/50 ML (ABBOTT) SYR IV ONE (05:15)
[2018-02-04] MEDS ORDERED: methylPREDNISolone 40 MG/ML (Solu-MEDROL) VIAL ONE (05:16)
[2018-02-04] MEDS: PIPERACILLIN SODIUM/TAZOBACTAM 4.5 GM in D5W 100 ML IVPB 100 ML IV SCH ×3 (05:25→21:06)
[2018-02-04] MEDS: GLIMEPIRIDE 4 MG (AMARYL) TAB PO SCH (05:25)
[2018-02-04] MEDS ORDERED: 1/2 NS IV SOLUTION 0 ML IV ONE (05:32)
--- NOTE | 2018-02-04 05:35 | Pulmonary Progress Note ---
Subjective Time Seen by Provider: 05:35 Subjective/Events-last exam Pt on vent no complications noted. Sepsis Event Evaluation Height, Weight, BMI Height: 5'11.00" Weight: 288lbs. 0.0oz. [id number]; 40.2 BMI Method:Stated Focused Exam Lactate Level 02/02/18 08:55: Lactic Acid Level 0.74 02/03/18 05:50: Lactic Acid Level 0.53 Exam Exam Vital Signs Date Time Temp Pulse Resp B/P (MAP) Pulse Ox O2 Delivery O2 Flow Rate FiO2 02/04/18 05:00 110 20 145/54 (84) 99 Mechanical Ventilator 50.00 02/04/18 04:45 111 17 152/54 (86) 100 Mechanical Ventilator 40.00 02/04/18 04:30 112 21 145/51 (82) 99 Mechanical Ventilator 40.00 02/04/18 04:15 111 16 153/54 (87) 99 Mechanical Ventilator 40.00 02/04/18 04:10 110 20 99 40 02/04/18 04:00 111 18 141/51 (81) 98 Mechanical Ventilator 40.00 02/04/18 04:00 Mechanical Ventilator 40 02/04/18 03:45 111 14 133/50 (77) 98 Mechanical Ventilator 40.00 02/04/18 03:30 110 13 129/47 (74) 98 Mechanical Ventilator 40.00 02/04/18 03:15 112 13 159/50 (86) 98 Mechanical Ventilator 40.00 02/04/18 03:00 112 16 154/49 (84) 97 Mechanical Ventilator 40.00 02/04/18 02:45 112 21 154/48 (83) 97 Mechanical Ventilator 40.00 02/04/18 02:30 153/48 02/04/18 02:30 110 17 152/47 (82) 97 Mechanical Ventilator 40.00 02/04/18 02:15 99 20 156/52 (86) 97 Mechanical Ventilator 40.00 02/04/18 02:06 86 20 99 50 02/04/18 02:00 84 19 158/57 (90) 100 Mechanical Ventilator 50.00 02/04/18 01:45 84 20 158/57 (90) 100 Mechanical Ventilator 50.00 02/04/18 01:30 84 19 158/57 (90) 100 Mechanical Ventilator 50.00 02/04/18 01:15 85 20 157/57 (90) 100 Mechanical Ventilator 50.00 02/04/18 01:00 85 02/04/18 01:00 85 20 156/57 (90) 100 Mechanical Ventilator 50.00 02/04/18 00:45 85 20 155/56 (89) 100 Mechanical Ventilator 50.00 02/04/18 00:30 85 20 158/56 (90) 100 Mechanical Ventilator 50.00 02/04/18 00:15 85 20 155/56 (89) 100 Mechanical Ventilator 50.00 02/04/18 00:00 85 20 154/56 (88) 100 Mechanical Ventilator 50.00 02/04/18 00:00 Mechanical Ventilator 50 02/03/18 23:46 97.6 Mechanical Ventilator 50.00 02/03/18 23:45 85 19 158/57 (90) 100 Mechanical Ventilator 50.00 02/03/18 23:42 159/57 02/03/18 23:30 85 19 158/56 (90) 100 Mechanical Ventilator 50.00 02/03/18 23:15 85 20 154/56 (88) 99 Mechanical Ventilator 50.00 02/03/18 23:00 86 20 166/57 (93) 99 Mechanical Ventilator 50.00 02/03/18 22:45 86 19 166/57 (93) 99 Mechanical Ventilator 50.00 02/03/18 22:30 85 19 166/57 (93) 99 Mechanical Ventilator 50.00 02/03/18 22:15 84 20 169/58 (95) 100 Mechanical Ventilator 50.00 02/03/18 22:01 82 20 100 60 02/03/18 22:00 82 19 168/59 (95) 100 Mechanical Ventilator 60.00 02/03/18 21:45 84 19 170/60 (96) 100 Mechanical Ventilator 60.00 02/03/18 21:30 86 19 171/60 (97) 100 Mechanical Ventilator 60.00 02/03/18 21:15 89 21 168/59 (95) 100 Mechanical Ventilator 60.00 02/03/18 21:00 84 02/03/18 21:00 93 21 161/56 (91) 100 Mechanical Ventilator 60.00 02/03/18 20:45 97 20 168/57 (94) 99 Mechanical Ventilator 60.00 02/03/18 20:30 98 20 163/55 (91) 98 Mechanical Ventilator 60.00 02/03/18 20:15 93 20 149/54 (85) 99 Mechanical Ventilator 60.00 02/03/18 20:00 Mechanical Ventilator 60 02/03/18 20:00 92 20 140/51 (80) 99 Mechanical Ventilator 60.00 02/03/18 20:00 98.7 Mechanical Ventilator 60.00 02/03/18 19:45 92 20 140/50 (80) 99 Mechanical Ventilator 70.00 02/03/18 19:30 92 19 147/51 (83) 99 Mechanical Ventilator 70.00 02/03/18 19:15 88 19 149/52 (84) 99 Mechanical Ventilator 70.00 02/03/18 19:04 82 20 100 70 02/03/18 19:00 82 19 141/52 (81) 100 Mechanical Ventilator 70.00 02/03/18 19:00 82 02/03/18 18:00 83 20 136/52 (80) 99 Mechanical Ventilator 70.00 02/03/18 17:17 84 20 99 70 02/03/18 17:00 85 20 134/53 (80) 99 Mechanical Ventilator 70.00 02/03/18 16:00 85 20 127/51 (76) 99 Mechanical Ventilator 70.00 02/03/18 15:00 87 20 112/52 (72) 98 Mechanical Ventilator 70.00 02/03/18 14:07 95 21 97 70 02/03/18 14:00 86 20 147/57 (87) 99 Mechanical Ventilator 70.00 02/03/18 13:00 90 19 145/49 (81) 98 Mechanical Ventilator 70.00 02/03/18 13:00 92 02/03/18 12:00 88 19 120/61 (80) 99 Mechanical Ventilator 70.00 02/03/18 12:00 99.0 02/03/18 11:35 95 20 157/74 98 Mechanical Ventilator 02/03/18 11:00 88 20 135/70 (91) 99 Mechanical Ventilator 70.00 02/03/18 10:00 90 20 151/78 (102) 99 Mechanical Ventilator 70.00 02/03/18 09:58 89 20 98 70 02/03/18 09:00 Mechanical Ventilator 70 02/03/18 09:00 87 19 116/72 (87) 99 Mechanical Ventilator 70.00 02/03/18 08:00 89 19 115/62 (79) 99 Mechanical Ventilator 70.00 02/03/18 07:10 98.5 02/03/18 07:00 74 02/03/18 07:00 74 7 132/78 (96) 100 Mechanical Ventilator 80.00 02/03/18 07:00 99.2 02/03/18 06:44 75 16 100 80 02/03/18 06:00 72 13 93/57 (69) 98 Mechanical Ventilator 80.00 I & O 02/04/18 07:00 Intake Total 2000 ml Output Total 2050 ml Balance -50 ml Height & Weight Height: 5'11.00" Weight: 288lbs. 0.0oz. 130.619929ie; 40.2 BMI Method:Stated General Appearance: Obese, Other (sedated on vent) HEENT: PERRL/EOMI, Other (ET tube in place ) Neck: No JVD; Other (incison dressing clean and dry) Respiratory: Other (intubated and on vent) Cardiovascular: Tachycardia Capillary Refill: Less Than 3 Seconds Gastrointestinal: non tender, soft Extremity: Normal Capillary Refill, Normal Inspection Neurologic/Psychiatric: Other (unconcious) Skin: Normal Color, Warm/Dry, Other (Dressing CDI) Lymphatic: No Adenopathy Results Lab Laboratory Tests 02/02/18 05:35 02/02/18 20:10 02/03/18 03:26 02/03/18 05:50 02/03/18 12:24 02/04/18 03:20 Assessment/Plan Assessment/Plan HX of cervical stenosis S/P C3-7 ACDF with C5 corpectomy Acute respiratory failure/distress -Continue ventilator -Increase PEEP to 8. - -No Lasix for now secondary to renal failure UTI with sepsis and urinary retention - Zosyn (MRSA swab is negative) -repeat Manjarrez cultures - pending CKD with hyperkalemia and metabolic acidosis -Bicarb gtt started -Repeat LA -IVF and monitor Anemia - monitor JORGE GONZALEZ DO Feb 04, 2018 05:35
[2018-02-04] MEDS ORDERED: methylPREDNISolone 125 MG (Solu-MEDROL) VIAL IVP SCH (06:00)
[2018-02-04] MEDS ORDERED: NS IV 1000 ML 1,000 ML ONE (06:50)
[2018-02-04] MEDS ORDERED: VANCOMYCIN 2000 MG/NS 500 ML IVPB IV SCH ×2 (07:00)
[2018-02-04] MEDS: SODIUM BICARBONATE IV SCH ×2 (08:18→18:17)
[2018-02-04] MEDS: 1/2 NS IV SCH ×2 (08:18→18:17)
[2018-02-04] MEDS: SENNOSIDES 8.6 MG (SENOKOT) TAB PO SCH ×2 (08:21→21:05)
[2018-02-04] MEDS: amLODIPine 10 MG (NORVASC) TAB PO SCH (08:21)
[2018-02-04] MEDS: PANTOPRAZOLE 40 MG (PROTONIX) VIAL IV SCH (08:21)
[2018-02-04] MEDS: meTOprolol TARTRATE 50 MG (LOPRESSOR) TAB PO SCH ×2 (08:21→21:05)
--- NOTE | 2018-02-04 08:31 | Occ Therapy Progress Note ---
Therapy Progress Note Checked on pt. Pt. continues to be on ventilator. Will continue to monitor and assess pt. for skilled OT when off vent. 0830 RICHARD LING OT Feb 04, 2018 08:31
--- NOTE | 2018-02-04 08:47 | Physical Therapy Progress Note ---
Therapy Progress Note Pt continues to be intubated and sedated. PT will follow 02/06. AILYN LOPEZ DPT Feb 04, 2018 08:47
[2018-02-04] MEDS ORDERED: ASPIRIN E.C. 81 MG (ECOTRIN) TAB PO SCH (09:00)
[2018-02-04] MEDS ORDERED: CLOPIDOGREL 75 MG (PLAVIX) TABLET PO SCH (09:00)
--- NOTE | 2018-02-04 10:58 | Diagnostic Imaging Report ---
EXAMINATION: Portable Semi-erect AP chest at 4:43 a.m. INDICATION: Respiratory distress. FINDINGS: The cardiomegaly and the alveolar/interstitial pulmonary infiltrates involving both lungs seen on the prior exam of 02/03/2018 are again evident. The poorly defined band of increased density in the right lung base seen previously is not visualized on this study. There still appears to be some residual atelectasis/infiltrate in the right lung base, however. The upper lungs are relatively clear. The mediastinum is not widened. The osseous structures are intact. The ET tube seen previously is again evident and seems to be in good position. In the interval since the prior exam, an NG line has been inserted. The tip of the line is difficult to visualize, but it does seem to overlie the gastric body. Furthermore, in the interval since the prior exam, a right-sided PICC line has been inserted. The tip of the line overlies the distal superior vena cava. There is no sign of pneumothorax on the right. IMPRESSION: 1. The right lung base is somewhat better aerated than on the prior exam. There is still bibasilar atelectasis/infiltrate and cardiomegaly. A followup exam would be recommended for continued evaluation. 2. There has been interval insertion of a right-sided PICC line without apparent complication. An NG line has also been inserted. Dictated by: Dictated on workstation # [id number]
[2018-02-04] MEDS: methylPREDNISolone 40 MG/ML (Solu-MEDROL) VIAL IV SCH ×2 (11:39→18:17)
--- NOTE | 2018-02-04 11:44 | Progress Note (SOAP) ---
Subjective Date Seen by Provider: Feb 04, 2018 Time Seen by Provider: 11:39 Subjective/Events-last exam POD #5, s/p C3-7 ACDF with C5 corpectomy Respiratory failure, requiring mechanical ventilator support Patient sedate at this time Cxr- pulmonary edema, RLL infiltrate and diffuse interstitial infiltrates Focused Exam Lactate Level 02/02/18 08:55: Lactic Acid Level 0.74 02/03/18 05:50: Lactic Acid Level 0.53 02/04/18 06:25: Lactic Acid Level 1.68 Objective Exam Vital Signs Date Time Temp Pulse Resp B/P (MAP) Pulse Ox O2 Delivery O2 Flow Rate FiO2 02/04/18 11:05 136/55 02/04/18 10:11 92 21 100 30 02/04/18 08:41 Mechanical Ventilator 35 02/04/18 08:38 98.4 Mechanical Ventilator 35.00 02/04/18 08:19 109/50 02/04/18 07:00 109 02/04/18 06:45 110 18 139/52 (81) 99 Mechanical Ventilator 50.00 02/04/18 06:42 109 21 99 40 02/04/18 06:30 107 18 143/54 (83) 99 Mechanical Ventilator 50.00 02/04/18 06:15 108 14 137/53 (81) 99 Mechanical Ventilator 50.00 02/04/18 06:00 109 19 140/53 (82) 100 Mechanical Ventilator 50.00 02/04/18 05:45 107 13 135/52 (79) 99 Mechanical Ventilator 50.00 02/04/18 05:39 132/51 02/04/18 05:30 107 20 131/51 (77) 99 Mechanical Ventilator 50.00 02/04/18 05:15 109 14 151/54 (86) 99 Mechanical Ventilator 50.00 02/04/18 05:00 110 20 145/54 (84) 99 Mechanical Ventilator 50.00 02/04/18 04:45 111 17 152/54 (86) 100 Mechanical Ventilator 40.00 02/04/18 04:30 112 21 145/51 (82) 99 Mechanical Ventilator 40.00 02/04/18 04:15 111 16 153/54 (87) 99 Mechanical Ventilator 40.00 02/04/18 04:10 110 20 99 40 02/04/18 04:00 111 18 141/51 (81) 98 Mechanical Ventilator 40.00 02/04/18 04:00 Mechanical Ventilator 40 02/04/18 03:45 111 14 133/50 (77) 98 Mechanical Ventilator 40.00 02/04/18 03:30 110 13 129/47 (74) 98 Mechanical Ventilator 40.00 02/04/18 03:15 112 13 159/50 (86) 98 Mechanical Ventilator 40.00 02/04/18 03:00 112 16 154/49 (84) 97 Mechanical Ventilator 40.00 02/04/18 02:45 112 21 154/48 (83) 97 Mechanical Ventilator 40.00 02/04/18 02:30 153/48 02/04/18 02:30 110 17 152/47 (82) 97 Mechanical Ventilator 40.00 02/04/18 02:15 99 20 156/52 (86) 97 Mechanical Ventilator 40.00 02/04/18 02:06 86 20 99 50 02/04/18 02:00 84 19 158/57 (90) 100 Mechanical Ventilator 50.00 02/04/18 01:45 84 20 158/57 (90) 100 Mechanical Ventilator 50.00 02/04/18 01:30 84 19 158/57 (90) 100 Mechanical Ventilator 50.00 02/04/18 01:15 85 20 157/57 (90) 100 Mechanical Ventilator 50.00 02/04/18 01:00 85 02/04/18 01:00 85 20 156/57 (90) 100 Mechanical Ventilator 50.00 02/04/18 00:45 85 20 155/56 (89) 100 Mechanical Ventilator 50.00 02/04/18 00:30 85 20 158/56 (90) 100 Mechanical Ventilator 50.00 02/04/18 00:15 85 20 155/56 (89) 100 Mechanical Ventilator 50.00 02/04/18 00:00 85 20 154/56 (88) 100 Mechanical Ventilator 50.00 02/04/18 00:00 Mechanical Ventilator 50 02/03/18 23:46 97.6 Mechanical Ventilator 50.00 02/03/18 23:45 85 19 158/57 (90) 100 Mechanical Ventilator 50.00 02/03/18 23:42 159/57 02/03/18 23:30 85 19 158/56 (90) 100 Mechanical Ventilator 50.00 02/03/18 23:15 85 20 154/56 (88) 99 Mechanical Ventilator 50.00 02/03/18 23:00 86 20 166/57 (93) 99 Mechanical Ventilator 50.00 02/03/18 22:45 86 19 166/57 (93) 99 Mechanical Ventilator 50.00 02/03/18 22:30 85 19 166/57 (93) 99 Mechanical Ventilator 50.00 02/03/18 22:15 84 20 169/58 (95) 100 Mechanical Ventilator 50.00 02/03/18 22:01 82 20 100 60 02/03/18 22:00 82 19 168/59 (95) 100 Mechanical Ventilator 60.00 02/03/18 21:45 84 19 170/60 (96) 100 Mechanical Ventilator 60.00 02/03/18 21:30 86 19 171/60 (97) 100 Mechanical Ventilator 60.00 02/03/18 21:15 89 21 168/59 (95) 100 Mechanical Ventilator 60.00 02/03/18 21:00 84 02/03/18 21:00 93 21 161/56 (91) 100 Mechanical Ventilator 60.00 02/03/18 20:45 97 20 168/57 (94) 99 Mechanical Ventilator 60.00 02/03/18 20:30 98 20 163/55 (91) 98 Mechanical Ventilator 60.00 02/03/18 20:15 93 20 149/54 (85) 99 Mechanical Ventilator 60.00 02/03/18 20:00 Mechanical Ventilator 60 02/03/18 20:00 92 20 140/51 (80) 99 Mechanical Ventilator 60.00 02/03/18 20:00 98.7 Mechanical Ventilator 60.00 02/03/18 19:45 92 20 140/50 (80) 99 Mechanical Ventilator 70.00 02/03/18 19:30 92 19 147/51 (83) 99 Mechanical Ventilator 70.00 02/03/18 19:15 88 19 149/52 (84) 99 Mechanical Ventilator 70.00 02/03/18 19:04 82 20 100 70 02/03/18 19:00 82 19 141/52 (81) 100 Mechanical Ventilator 70.00 02/03/18 19:00 82 02/03/18 18:00 83 20 136/52 (80) 99 Mechanical Ventilator 70.00 02/03/18 17:17 84 20 99 70 02/03/18 17:00 85 20 134/53 (80) 99 Mechanical Ventilator 70.00 02/03/18 16:00 85 20 127/51 (76) 99 Mechanical Ventilator 70.00 02/03/18 15:00 87 20 112/52 (72) 98 Mechanical Ventilator 70.00 02/03/18 14:07 95 21 97 70 02/03/18 14:00 86 20 147/57 (87) 99 Mechanical Ventilator 70.00 02/03/18 13:00 90 19 145/49 (81) 98 Mechanical Ventilator 70.00 02/03/18 13:00 92 02/03/18 12:00 88 19 120/61 (80) 99 Mechanical Ventilator 70.00 02/03/18 12:00 99.0 I & O 02/04/18 07:00 Intake Total 2000 ml Output Total 2500 ml Balance -500 ml Capillary Refill : Less Than 3 Seconds General Appearance: No Apparent Distress, Other (Sedated) Respiratory: Other (Mild diffuse rhonchi ) Cardiovascular: Regular Rate, Rhythm Gastrointestinal: normal bowel sounds, soft Extremity: Normal Capillary Refill Skin: Other (Dressing CDI) Results Lab Laboratory Tests 02/03/18 12:24: White Blood Count 13.6H, Red Blood Count 2.68L, Hemoglobin 7.8L, Hematocrit 24L , Mean Corpuscular Volume 88, Mean Corpuscular Hemoglobin 29, Mean Corpuscular Hemoglobin Concent 33, Red Cell Distribution Width 12.4, Platelet Count 174, Mean Platelet Volume 10.9H, Neutrophils (%) (Auto) 93H, Lymphocytes (%) (Auto) 3L, Monocytes (%) (Auto) 3, Eosinophils (%) (Auto) 0, Basophils (%) (Auto) 0, Neutrophils # (Auto) 12.7H, Lymphocytes # (Auto) 0.4L, Monocytes # (Auto) 0.4, Eosinophils # (Auto) 0.0, Basophils # (Auto) 0.0, Sodium Level 137, Potassium Level 5.1H, Chloride Level 106, Carbon Dioxide Level 20L, Anion Gap 11, Blood Urea Nitrogen 74H, Creatinine 2.48H, Estimat Glomerular Filtration Rate 28, BUN/ Creatinine Ratio 30, Glucose Level 271H, Calcium Level 8.0L, Troponin I 0.35*H 02/03/18 14:38: Glucometer 313H 02/03/18 18:01: Troponin I < 0.30 02/03/18 23:40: Glucometer 369H 02/04/18 02:42: Glucometer 375H 02/04/18 03:20: White Blood Count 9.3, Red Blood Count 2.80L, Hemoglobin 7.9L, Hematocrit 24L, Mean Corpuscular Volume 86, Mean Corpuscular Hemoglobin 28, Mean Corpuscular Hemoglobin Concent 33, Red Cell Distribution Width 12.3, Platelet Count 183, Mean Platelet Volume 10.9H, Neutrophils (%) (Auto) 93H, Lymphocytes (%) (Auto) 5L, Monocytes (%) (Auto) 2, Eosinophils (%) (Auto) 0, Basophils (%) (Auto) 0, Neutrophils # (Auto) 8.6H, Lymphocytes # (Auto) 0.4L, Monocytes # (Auto) 0.2, Eosinophils # (Auto) 0.0, Basophils # (Auto) 0.0, Sodium Level 137, Potassium Level 4.4, Chloride Level 107, Carbon Dioxide Level 18L, Anion Gap 12, Blood Urea Nitrogen 81H, Creatinine 2.35H, Estimat Glomerular Filtration Rate 29, BUN/ Creatinine Ratio 34, Glucose Level 408*H, Calcium Level 8.0L, Phosphorus Level 4.5, Magnesium Level 3.1H 02/04/18 03:30: Blood Gas Puncture Site LEFT ART LINE, Blood Gas Patient Temperature 98.9, Arterial Blood pH 7.25*L, Arterial Blood Partial Pressure CO2 44, Arterial Blood Partial Pressure O2 66L, Arterial Blood HCO3 19L, Arterial Blood Total CO2 19.9L, Arterial Blood Oxygen Saturation 94, Arterial Blood Base Excess -7.3L , Jem Test ART LINE, Blood Gas Ventilator Setting YES, Blood Gas Inspired Oxygen 40% 02/04/18 04:00: Glucometer 375H 02/04/18 05:04: Glucometer 378H 02/04/18 06:25: Lactic Acid Level 1.68 02/04/18 07:34: Glucometer 377H 02/04/18 08:28: Glucometer 384H 02/04/18 09:36: Glucometer 346H 02/04/18 10:49: Glucometer 302H Microbiology 02/02/18 Blood Culture - Preliminary, Resulted No growth 01/31/18 Genital Culture - Final, Complete No growth 02/03/18 Gram Stain - Final, Resulted 02/03/18 Sputum Culture, Resulted Pending 01/31/18 Urine Culture - Final, Complete NO GROWTH Assessment/Plan Assessment/Plan Assess & Plan/Chief Complaint S/P C3-7 ACDF with C5 corpectomy Renal failure respiratory failure DM BLE u/s at this time to evaluate for possible DVT Continue to follow Clinical Quality Measures DVT/VTE Risk/Contraindication: Risk Factor Score Per Nursin RFS Level Per Nursing on Admit: 2=Moderate APRIL LA Feb 04, 2018 11:44
[2018-02-04 12:37] LABS: ABG BASE EXCESS -2.2 MMOL/L (-2.5-2.5); ABG OXYGEN SATURATION 94 % (94-100); ABG PCO2 45 MMHG (35-45); ABG PO2 63 MMHG (79-93)
[2018-02-04 12:39] LABS: ABG PH 7.33 (7.37-7.43); ALLENS TEST ART LINE; INSPIRED O2 21%; VENTILATOR YES
[2018-02-04 12:40] LABS: PATIENT TEMP 99.7
--- NOTE | 2018-02-04 12:42 | Progress Note-Hospitalist ---
Subjective HPI/CC On Admission Date Seen by Provider: Feb 04, 2018 Time Seen by Provider: 11:45 Subjective/Events-last exam Patient remains intubated Family at bedside Meds reviewed Pt does not appear to be in any pain Checked labs. Focused Exam Lactate Level 02/03/18 05:50: Lactic Acid Level 0.53 02/04/18 06:25: Lactic Acid Level 1.68 02/04/18 12:24: Lactic Acid Level Laboratory Tests Test 02/04/18 12:24 Objective Exam Vital Signs Vital Signs Date Time Temp Pulse Resp B/P (MAP) Pulse Ox O2 Delivery O2 Flow Rate FiO2 02/04/18 11:05 136/55 02/04/18 10:11 92 21 100 30 02/04/18 08:41 Mechanical Ventilator 02/04/18 08:38 98.4 35.00 Capillary Refill : Less Than 3 Seconds General Appearance: No Apparent Distress, Chronically ill Respiratory: Crackles, Decreased Breath Sounds Cardiovascular: Regular Rate, Rhythm, No Edema Neurologic/Psychiatric: Other (intubated and sedated) Results/Procedures Lab Laboratory Tests 02/04/18 03:20 Patient resulted labs reviewed. Assessment/Plan Assessment and Plan Assess & Plan/Chief Complaint Respiratory failure now VDRF ARF DM UTI Plan: Continue supportive care Monitor creatinine closely Abx Critical Care Critical Care: Critically Ill Patient Diagnosis/Problems Diagnosis/Problems (1) Respiratory failure Status: Acute Qualifiers: Chronicity: acute Respiratory failure complication: unspecified whether with hypoxia or hypercapnia Qualified Codes: J96.00 - Acute respiratory failure, unspecified whether with hypoxia or hypercapnia (2) UTI (urinary tract infection) Status: Acute Qualifiers: Urinary tract infection type: acute cystitis Hematuria presence: without hematuria Qualified Codes: N30.00 - Acute cystitis without hematuria (3) Urinary retention Status: Acute (4) Renal failure Status: Acute Qualifiers: Renal failure chronicity: acute Acute renal failure type: unspecified Qualified Codes: N17.9 - Acute kidney failure, unspecified (5) Cervical myelopathy Status: Chronic (6) Uncontrolled diabetes mellitus Status: Chronic Qualifiers: Diabetes mellitus type: type 2 Clinical Quality Measures DVT/VTE Risk/Contraindication: Risk Factor Score Per Nursin RFS Level Per Nursing on Admit: 2=Moderate JULY MIJARES DO Feb 04, 2018 12:42
--- NOTE | 2018-02-04 12:48 | Diagnostic Imaging Report ---
PROCEDURE: US Venous Lower Ext John. INDICATION: Bilateral lower extremity swelling. TECHNIQUE: Grayscale with color-flow and Doppler waveform evaluation of the bilateral lower extremity deep venous systems. CORRELATION STUDY: None FINDINGS: Color and grayscale sonographic images demonstrate no intraluminal defect within the visualized portion of the common femoral, superficial femoral and/or popliteal veins to suggest thrombus formation. These vessels demonstrate normal response to compression and augmentation. No soft tissue fluid collection. IMPRESSION: 1. Negative for deep venous thrombosis of either leg. Dictated by: Dictated on workstation # [id number]
--- NOTE | 2018-02-04 16:17 | Progress Note-Cardiology ---
Cardiology SOAP Progress Note Subjective: Not able to provide any history. Sedate and on mech vent Objective: I&O/Vital Signs 02/04/18 02/04/18 02/04/18 02/04/18 04:15 04:30 04:45 05:00 Pulse 111 112 111 110 Resp 16 21 17 20 B/P (MAP) 153/54 (87) 145/51 (82) 152/54 (86) 145/54 (84) Pulse Ox 99 99 100 99 O2 Delivery Mechanical Ventilator Mechanical Ventilator Mechanical Ventilator Mechanical Ventilator O2 Flow Rate 40.00 40.00 40.00 50.00 02/04/18 02/04/18 02/04/18 02/04/18 05:15 05:30 05:39 05:45 Pulse 109 107 107 Resp 14 20 13 B/P (MAP) 151/54 (86) 131/51 (77) 132/51 135/52 (79) Pulse Ox 99 99 99 O2 Delivery Mechanical Ventilator Mechanical Ventilator Mechanical Ventilator O2 Flow Rate 50.00 50.00 50.00 02/04/18 02/04/18 02/04/18 02/04/18 06:00 06:15 06:30 06:42 Pulse 109 108 107 109 Resp 19 14 18 21 B/P (MAP) 140/53 (82) 137/53 (81) 143/54 (83) Pulse Ox 100 99 99 99 O2 Delivery Mechanical Ventilator Mechanical Ventilator Mechanical Ventilator O2 Flow Rate 50.00 50.00 50.00 FiO2 40 02/04/18 02/04/18 02/04/18 02/04/18 06:45 07:00 08:00 08:19 Pulse 110 109 104 Resp 18 20 B/P (MAP) 139/52 (81) 109/49 (69) 109/50 Pulse Ox 99 99 O2 Delivery Mechanical Ventilator Mechanical Ventilator O2 Flow Rate 50.00 50.00 02/04/18 02/04/18 02/04/18 02/04/18 08:38 08:41 10:00 10:11 Temp 98.4 Pulse 99 92 Resp 19 21 B/P (MAP) 147/65 (92) Pulse Ox 99 100 O2 Delivery Mechanical Ventilator Mechanical Ventilator Mechanical Ventilator O2 Flow Rate 35.00 35.00 FiO2 35 30 02/04/18 02/04/18 02/04/18 02/04/18 11:00 11:05 12:00 12:10 Pulse 93 92 92 Resp 16 16 21 B/P (MAP) 149/59 (89) 136/55 126/53 (77) Pulse Ox 99 100 100 O2 Delivery Mechanical Ventilator Mechanical Ventilator O2 Flow Rate 35.00 35.00 FiO2 21 02/04/18 02/04/18 02/04/18 02/04/18 13:00 13:00 14:00 14:40 Pulse 92 92 90 90 Resp 21 16 15 B/P (MAP) 122/53 (76) 116/52 (73) 125/55 Pulse Ox 98 98 99 O2 Delivery Mechanical Ventilator Mechanical Ventilator O2 Flow Rate 35.00 35.00 21.00 02/04/18 02/04/18 14:55 15:00 Pulse 98 98 Resp 24 16 B/P (MAP) 144/62 (89) Pulse Ox 99 98 O2 Delivery Mechanical Ventilator O2 Flow Rate 35.00 FiO2 21 02/04/18 00:00 Intake Total 2000 ml Output Total 1050 ml Balance 950 ml Weight (Pounds): 288 Weight (Ounces): 0.0 Weight (Calculated Kilograms): [id number] Constitutional: other (Intubated, sedated, on mech vent) Respiratory: other (good bilat air entry, diminished at the bases) Cardiovascular: regular rate-rhythm, S1 and S2, systolic murmur (soft KYLE at card base) Gastrointestional: soft; No guarding, No rebound; audible bowel sounds Extremities: No clubbing, No cyanosis, No significant edema Neurologic/Psychiatric: other (on mech vent and unable to cooperate with a neuro exam) Skin: No rash on exposed areas, No ulcerations on exposed areas Results/Procedures: Labs Laboratory Tests 02/03/18 18:01: Troponin I < 0.30 02/03/18 23:40: Glucometer 369H 02/04/18 02:42: Glucometer 375H 02/04/18 03:20: White Blood Count 9.3, Red Blood Count 2.80L, Hemoglobin 7.9L, Hematocrit 24L, Mean Corpuscular Volume 86, Mean Corpuscular Hemoglobin 28, Mean Corpuscular Hemoglobin Concent 33, Red Cell Distribution Width 12.3, Platelet Count 183, Mean Platelet Volume 10.9H, Neutrophils (%) (Auto) 93H, Lymphocytes (%) (Auto) 5L, Monocytes (%) (Auto) 2, Eosinophils (%) (Auto) 0, Basophils (%) (Auto) 0, Neutrophils # (Auto) 8.6H, Lymphocytes # (Auto) 0.4L, Monocytes # (Auto) 0.2, Eosinophils # (Auto) 0.0, Basophils # (Auto) 0.0, Sodium Level 137, Potassium Level 4.4, Chloride Level 107, Carbon Dioxide Level 18L, Anion Gap 12, Blood Urea Nitrogen 81H, Creatinine 2.35H, Estimat Glomerular Filtration Rate 29, BUN/ Creatinine Ratio 34, Glucose Level 408*H, Calcium Level 8.0L, Phosphorus Level 4.5, Magnesium Level 3.1H 02/04/18 03:30: Blood Gas Puncture Site LEFT ART LINE, Blood Gas Patient Temperature 98.9, Arterial Blood pH 7.25*L, Arterial Blood Partial Pressure CO2 44, Arterial Blood Partial Pressure O2 66L, Arterial Blood HCO3 19L, Arterial Blood Total CO2 19.9L, Arterial Blood Oxygen Saturation 94, Arterial Blood Base Excess -7.3L , Jem Test ART LINE, Blood Gas Ventilator Setting YES, Blood Gas Inspired Oxygen 40% 02/04/18 04:00: Glucometer 375H 02/04/18 05:04: Glucometer 378H 02/04/18 06:25: Lactic Acid Level 1.68 02/04/18 07:34: Glucometer 377H 02/04/18 08:28: Glucometer 384H 02/04/18 09:36: Glucometer 346H 02/04/18 10:49: Glucometer 302H 02/04/18 11:29: Glucometer 276H 02/04/18 12:24: Lactic Acid Level 1.36 02/04/18 12:28: Glucometer 246H 02/04/18 12:29: Blood Gas Puncture Site LT RAD, Blood Gas Patient Temperature 99.7, Arterial Blood pH 7.33*L, Arterial Blood Partial Pressure CO2 45, Arterial Blood Partial Pressure O2 63L, Arterial Blood HCO3 23, Arterial Blood Total CO2 24.0, Arterial Blood Oxygen Saturation 94, Arterial Blood Base Excess -2.2, Jem Test ART LINE, Blood Gas Ventilator Setting YES, Blood Gas Inspired Oxygen 21% 02/04/18 13:45: Glucometer 192H 02/04/18 14:34: Glucometer 166H Microbiology 02/03/18 Blood Culture - Preliminary, Resulted No growth 01/31/18 Genital Culture - Final, Complete No growth 02/03/18 Gram Stain - Final, Resulted 02/03/18 Sputum Culture - Preliminary, Resulted Usual/normal harini isolated. 01/31/18 Urine Culture - Final, Complete NO GROWTH Laboratory Tests 02/02/18 20:10 02/03/18 03:26 02/03/18 05:50 02/03/18 12:24 02/04/18 03:20 A/P: Assessment: Spinal stenosis, status post C3-7 ACDF with C5 corpectomy done by Dr. Hardwick Acute respiratory failure, difficult intubation required multiple attempts, currently ventilator dependent managed by Dr. Gao. Mild troponin elevation, probably related to prolonged hypoxia Acute on chronic renal failure Status post fever and leukocytosis, systemic infection suspected and managed by the Med and ICU Svces Coronary artery disease: Card cath in Jun 2017 showed significant mid LAD stenosis that was stented with Alpine 3.018 mm sten, mild to moderate disease in the proximal portion of the LAD, moderate disease in the distal circumflex artery. Carotid artery stenosis-mild nonobstructive disease per carotid duplex done July 2017, Diabetes mellitus II, managed by Dr. Younger. Diabetic neuropathy, followed and managed by Dr. Younger. Hypertension Hyperlipidemia, intolerant to Lipitor with severe diarrhea PAD: patient underwent peripheral angiogram done February 09, 2016 revealing mild to moderate disease in the anterior tibial of the left lower extremity and posterior tibial at 60-70 percent. Anterior tibial with good flow down to the ankle on the left lower extremity, otherwise mild disease in the right lower extremity and abdominal aorta Plan: * I reviewed his records and spoke with his family * Given relatively recent cor stenting, we recommend resumption of antiplatelet therapy, if ok with the Med Svce * Monitor labs * Consider blood transfusion if H/H drop further LORAINE POST MD FACP FAC CCDS Feb 04, 2018 16:17
[2018-02-04] MEDS: fentaNYL INJECTION 1,250 MCG in NS (IVPB) 225 ML IV SCH (16:57)
[2018-02-04] MEDS: GLIMEPIRIDE 2 MG (AMARYL) TAB PO SCH (17:19)
[2018-02-04] MEDS: LORATADINE (CLARITIN) 10 MG TAB PO SCH (17:21)
[2018-02-04] MEDS: ASPIRIN 81 MG CHEW (CHILDREN'S ASA) PO SCH (17:21)
[2018-02-04] MEDS: ROSUVASTATIN 5 MG (CRESTOR) TABLET PO SCH (21:05)
[2018-02-04] MEDS: HUMALOG SC SCH (21:05)
[2018-02-04] MEDS: NOVOLOG SC SCH (21:05)
[2018-02-05] VITALS (70 sets, daily range): BP systolic 123–172; BP diastolic 0–76
[2018-02-05] MEDS: HUMALOG SC SCH ×6 (00:09→22:20)
[2018-02-05] MEDS: NOVOLOG SC SCH ×6 (00:09→22:20)
[2018-02-05] MEDS: methylPREDNISolone 40 MG/ML (Solu-MEDROL) VIAL IV SCH ×5 (00:10→23:55)
[2018-02-05] MEDS: RT-ALBUTEROL/IPRATROPIUM 3 ML (DUONEB) VIAL INH SCH ×6 (01:16→21:12)
[2018-02-05] MEDS: PROPOFOL DRIP (ICU) 100 ML IV SCH ×9 (01:17→23:46)
[2018-02-05] MEDS: MULTIVIT W/MINERALS TAB (THERAGRAN M) PO SCH (02:25)
[2018-02-05] MEDS: GLIMEPIRIDE 4 MG (AMARYL) TAB PO SCH (02:25)
[2018-02-05 04:02] LABS: BASOPHILS % (AUTO) 0 % (0-10); EOSINOPHILS % (AUTO) 0 % (0-10); HEMATOCRIT 23 % (40-54); HEMOGLOBIN 7.8 G/DL (13.3-17.7); LYMPHOCYTES # (AUTO) 0.4 X 10^3 (1.0-4.0); LYMPHOCYTES % (AUTO) 3 % (12-44); MEAN CORPUSCULAR HEMOGLOBIN 29 PG (25-34); MEAN CORPUSCULAR HGB CONC 34 G/DL (32-36); MEAN CORPUSCULAR VOLUME 86 FL (80-99); MEAN PLATELET VOLUME 10.6 FL (7.4-10.4); MONOCYTES # (AUTO) 0.4 X 10^3 (0.0-1.0); MONOCYTES % (AUTO) 4 % (0-12); NEUTROPHILS # (AUTO) 10.8 X 10^3 (1.8-7.8); NEUTROPHILS % (AUTO) 93 % (42-75); PLATELET COUNT 225 10^3/uL (130-400); RED CELL DISTRIBUTION WIDTH 12.7 % (10.0-14.5); WHITE BLOOD COUNT 11.6 10^3/uL (4.3-11.0)
[2018-02-05 04:03] LABS: ABG BASE EXCESS -0.9 MMOL/L (-2.5-2.5); ABG OXYGEN SATURATION 95 % (94-100); ABG PCO2 41 MMHG (35-45); ABG PH 7.38 (7.37-7.43); ABG PO2 61 MMHG (79-93); ABG TCO2 24.9 MMOL/L (21.0-31.0)
[2018-02-05 04:04] LABS: ALLENS TEST ART LINE; INSPIRED O2 21%; PATIENT TEMP 98.1; VENTILATOR YES
[2018-02-05 04:17] LABS: CREATININE SERUM 2.2 MG/DL (0.60-1.30); MAGNESIUM 3.2 MG/DL (1.8-2.4); PHOSPHORUS 5.3 MG/DL (2.3-4.7); POTASSIUM 4.5 MMOL/L (3.6-5.0)
[2018-02-05] MEDS: 1/2 NS IV SCH ×2 (05:25→16:25)
[2018-02-05] MEDS: SODIUM BICARBONATE IV SCH ×2 (05:25→16:25)
[2018-02-05] MEDS: POTASSIUM CL 10MEQ/50ML IVPB 50 ML IV SCH (05:26)
[2018-02-05] MEDS: MAGNESIUM 1 GM/100 ML IVPB 100 ML IV SCH (05:26)
[2018-02-05] MEDS: KCL 20 MEQ TAB (K-DUR) PO SCH (05:26)
[2018-02-05] MEDS: PIPERACILLIN SODIUM/TAZOBACTAM 4.5 GM in D5W 100 ML IVPB 100 ML IV SCH ×3 (05:26→21:03)
--- NOTE | 2018-02-05 05:49 | Pulmonary Progress Note ---
Subjective Time Seen by Provider: 05:48 Subjective/Events-last exam pt is resting on vent currently. Sepsis Event Evaluation Height, Weight, BMI Height: 5'11.00" Weight: 288lbs. 0.0oz. 130.429341dy; 40.2 BMI Method:Stated Focused Exam Lactate Level 02/03/18 05:50: Lactic Acid Level 0.53 02/04/18 06:25: Lactic Acid Level 1.68 02/04/18 12:24: Lactic Acid Level 1.36 Exam Exam Vital Signs Date Time Temp Pulse Resp B/P (MAP) Pulse Ox O2 Delivery O2 Flow Rate FiO2 02/05/18 05:30 84 20 153/70 (97) 99 Mechanical Ventilator 21.00 02/05/18 05:15 87 17 163/72 (102) 99 Mechanical Ventilator 21.00 02/05/18 05:00 86 20 155/70 (98) 99 Mechanical Ventilator 21.00 02/05/18 04:45 86 20 154/69 (97) 99 Mechanical Ventilator 21.00 02/05/18 04:30 86 19 152/69 (96) 99 Mechanical Ventilator 21.00 02/05/18 04:15 86 20 143/69 (93) 98 Mechanical Ventilator 21.00 02/05/18 04:01 154/70 02/05/18 04:00 90 17 150/69 (96) 99 Mechanical Ventilator 21.00 02/05/18 04:00 Mechanical Ventilator 21 02/05/18 04:00 98.1 02/05/18 03:45 87 19 163/70 (101) 98 Mechanical Ventilator 21.00 02/05/18 03:30 90 11 169/74 (105) 98 Mechanical Ventilator 21.00 02/05/18 03:25 90 22 100 21 02/05/18 03:15 87 24 155/68 (97) 98 Mechanical Ventilator 21.00 02/05/18 03:00 88 23 160/69 (99) 98 Mechanical Ventilator 21.00 02/05/18 02:45 89 20 166/70 (102) 99 Mechanical Ventilator 21.00 02/05/18 02:30 93 13 172/72 (105) 99 Mechanical Ventilator 21.00 02/05/18 02:15 89 18 164/70 (101) 99 Mechanical Ventilator 21.00 02/05/18 02:00 89 14 163/69 (100) 99 Mechanical Ventilator 21.00 02/05/18 01:45 89 23 159/69 (99) 99 Mechanical Ventilator 21.00 02/05/18 01:30 88 31 163/69 (100) 99 Mechanical Ventilator 21.00 02/05/18 01:17 90 20 99 21 02/05/18 01:17 161/69 02/05/18 01:15 88 19 153/68 (96) 99 Mechanical Ventilator 21.00 02/05/18 01:00 87 02/05/18 01:00 85 19 151/67 (95) 98 Mechanical Ventilator 21.00 02/05/18 00:45 89 19 165/70 (101) 99 Mechanical Ventilator 21.00 02/05/18 00:30 89 14 164/70 (101) 99 Mechanical Ventilator 21.00 02/05/18 00:15 88 19 159/69 (99) 99 Mechanical Ventilator 21.00 02/05/18 00:00 89 19 156/69 (98) 99 Mechanical Ventilator 21.00 02/05/18 00:00 Mechanical Ventilator 21 02/05/18 00:00 98.1 02/04/18 23:45 88 19 152/68 (96) 98 Mechanical Ventilator 21.00 02/04/18 23:30 88 19 153/68 (96) 98 Mechanical Ventilator 21.00 02/04/18 23:15 89 20 153/71 (98) 98 Mechanical Ventilator 21.00 02/04/18 23:00 89 20 159/68 (98) 98 Mechanical Ventilator 21.00 02/04/18 22:46 90 20 99 21 02/04/18 22:45 90 27 151/67 (95) 99 Mechanical Ventilator 21.00 02/04/18 22:30 89 20 149/66 (93) 98 Mechanical Ventilator 21.00 02/04/18 22:15 91 19 154/68 (96) 98 Mechanical Ventilator 21.00 02/04/18 22:09 153/67 02/04/18 22:00 93 19 154/68 (96) 98 Mechanical Ventilator 21.00 02/04/18 21:45 95 14 157/65 (95) 98 Mechanical Ventilator 21.00 02/04/18 21:30 99 20 158/67 (97) 98 Mechanical Ventilator 21.00 02/04/18 21:15 98 19 153/64 (93) 98 Mechanical Ventilator 21.00 18 21:03 98 22 98 21 8/18 21:00 93 10 150/63 (92) 91 Mechanical Ventilator 21.00 18 20:45 96 20 156/65 (95) 97 Mechanical Ventilator 21.00 8/18 20:30 96 10 146/64 (91) 98 Mechanical Ventilator 21.00 02/04/18 20:15 96 14 147/63 (91) 98 Mechanical Ventilator 21.00 18 20:00 97 25 146/63 (90) 98 Mechanical Ventilator 21.00 18 20:00 Mechanical Ventilator 21 02/04/18 20:00 98.7 18 19:51 96 20 98 21 02/04/18 19:45 96 27 149/63 (91) 98 Mechanical Ventilator 21.00 18 19:30 97 13 150/64 (92) 98 Mechanical Ventilator 21.00 02/04/18 19:15 100 23 152/66 (94) 99 Mechanical Ventilator 21.00 02/04/18 19:00 98 02/04/18 19:00 98 21 149/64 (92) 99 Mechanical Ventilator 21.00 02/04/18 18:14 90 21 99 21 02/04/18 18:00 90 9 126/59 (81) 98 Mechanical Ventilator 21.00 02/04/18 17:00 93 11 137/62 (87) 98 Mechanical Ventilator 21.00 02/04/18 16:57 Mechanical Ventilator 21 02/04/18 16:55 94 22 99 21 02/04/18 16:45 Mechanical Ventilator 21 02/04/18 16:00 95 13 135/61 (85) 99 Mechanical Ventilator 21.00 18 15:00 98 16 144/62 (89) 98 Mechanical Ventilator 21.00 02/04/18 14:55 98 24 99 21 02/04/18 14:40 90 15 125/55 99 21.00 02/04/18 14:00 90 16 116/52 (73) 98 Mechanical Ventilator 21.00 18 13:00 92 02/04/18 13:00 92 21 122/53 (76) 98 Mechanical Ventilator 21.00 02/04/18 12:28 Mechanical Ventilator 21 02/04/18 12:10 92 21 100 21 02/04/18 12:00 92 16 126/53 (77) 100 Mechanical Ventilator 35.00 02/04/18 11:05 136/55 02/04/18 11:00 93 16 149/59 (89) 99 Mechanical Ventilator 35.00 02/04/18 10:11 92 21 100 30 02/04/18 10:00 99 19 147/65 (92) 99 Mechanical Ventilator 35.00 02/04/18 08:41 Mechanical Ventilator 35 02/04/18 08:38 98.4 Mechanical Ventilator 35.00 02/04/18 08:19 109/50 02/04/18 08:00 104 20 109/49 (69) 99 Mechanical Ventilator 50.00 02/04/18 07:00 109 02/04/18 06:45 110 18 139/52 (81) 99 Mechanical Ventilator 50.00 02/04/18 06:42 109 21 99 40 02/04/18 06:30 107 18 143/54 (83) 99 Mechanical Ventilator 50.00 02/04/18 06:15 108 14 137/53 (81) 99 Mechanical Ventilator 50.00 02/04/18 06:00 109 19 140/53 (82) 100 Mechanical Ventilator 50.00 02/04/18 05:45 107 13 135/52 (79) 99 Mechanical Ventilator 50.00 I & O 02/05/18 07:00 Intake Total 552.5 ml Output Total 2305 ml Balance -1752.5 ml Height & Weight Height: 5'11.00" Weight: 288lbs. 0.0oz. 130.461497pa; 40.2 BMI Method:Stated General Appearance: No Apparent Distress, Chronically ill HEENT: PERRL/EOMI, Other (ET tube in place ) Neck: No JVD; Other (incison dressing clean and dry) Respiratory: Crackles, Decreased Breath Sounds Cardiovascular: Regular Rate, Rhythm, No Edema Capillary Refill: Less Than 3 Seconds Gastrointestinal: normal bowel sounds, soft Extremity: Normal Capillary Refill Neurologic/Psychiatric: Other (intubated and sedated) Skin: Other (Dressing CDI) Lymphatic: No Adenopathy Results Lab Laboratory Tests 02/03/18 05:50 02/03/18 12:24 02/04/18 03:20 02/05/18 03:55 Assessment/Plan Assessment/Plan HX of cervical stenosis S/P C3-7 ACDF with C5 corpectomy Acute respiratory failure/distress -Continue ventilator -Will start to wean Vent tomorrow UTI with sepsis and urinary retention - Zosyn (MRSA swab is negative) -repeat Manjarrez cultures - pending CKD with hyperkalemia and metabolic acidosis -Bicarb gtt -IVF and monitor Anemia - monitor JORGE GONZALEZ DO Feb 05, 2018 05:49
--- NOTE | 2018-02-05 07:51 | Progress Note (SOAP) ---
Subjective Date Seen by Provider: Feb 05, 2018 Time Seen by Provider: 07:49 Subjective/Events-last exam POD #6, s/p C3-7 ACDF with C5 corpectomy Resting comfortably on mechanical ventilator Focused Exam Lactate Level 02/03/18 05:50: Lactic Acid Level 0.53 02/04/18 06:25: Lactic Acid Level 1.68 02/04/18 12:24: Lactic Acid Level 1.36 Objective Exam Vital Signs Date Time Temp Pulse Resp B/P (MAP) Pulse Ox O2 Delivery O2 Flow Rate FiO2 02/05/18 07:09 145/67 02/05/18 06:45 85 19 148/67 (94) 98 Mechanical Ventilator 21.00 02/05/18 06:30 84 19 149/68 (95) 98 Mechanical Ventilator 21.00 02/05/18 06:15 84 19 151/73 (99) 99 Mechanical Ventilator 21.00 02/05/18 06:13 84 20 100 21 02/05/18 06:00 84 19 155/70 (98) 99 Mechanical Ventilator 21.00 02/05/18 05:45 85 19 160/76 (104) 99 Mechanical Ventilator 21.00 02/05/18 05:30 84 20 153/70 (97) 99 Mechanical Ventilator 21.00 02/05/18 05:15 87 17 163/72 (102) 99 Mechanical Ventilator 21.00 02/05/18 05:00 86 20 155/70 (98) 99 Mechanical Ventilator 21.00 02/05/18 04:45 86 20 154/69 (97) 99 Mechanical Ventilator 21.00 02/05/18 04:30 86 19 152/69 (96) 99 Mechanical Ventilator 21.00 02/05/18 04:15 86 20 143/69 (93) 98 Mechanical Ventilator 21.00 02/05/18 04:01 154/70 02/05/18 04:00 90 17 150/69 (96) 99 Mechanical Ventilator 21.00 02/05/18 04:00 Mechanical Ventilator 21 02/05/18 04:00 98.1 02/05/18 03:45 87 19 163/70 (101) 98 Mechanical Ventilator 21.00 02/05/18 03:30 90 11 169/74 (105) 98 Mechanical Ventilator 21.00 02/05/18 03:25 90 22 100 21 02/05/18 03:15 87 24 155/68 (97) 98 Mechanical Ventilator 21.00 02/05/18 03:00 88 23 160/69 (99) 98 Mechanical Ventilator 21.00 02/05/18 02:45 89 20 166/70 (102) 99 Mechanical Ventilator 21.00 02/05/18 02:30 93 13 172/72 (105) 99 Mechanical Ventilator 21.00 02/05/18 02:15 89 18 164/70 (101) 99 Mechanical Ventilator 21.00 02/05/18 02:00 89 14 163/69 (100) 99 Mechanical Ventilator 21.00 02/05/18 01:45 89 23 159/69 (99) 99 Mechanical Ventilator 21.00 02/05/18 01:30 88 31 163/69 (100) 99 Mechanical Ventilator 21.00 02/05/18 01:17 90 20 99 21 02/05/18 01:17 161/69 02/05/18 01:15 88 19 153/68 (96) 99 Mechanical Ventilator 21.00 02/05/18 01:00 87 02/05/18 01:00 85 19 151/67 (95) 98 Mechanical Ventilator 21.00 02/05/18 00:45 89 19 165/70 (101) 99 Mechanical Ventilator 21.00 02/05/18 00:30 89 14 164/70 (101) 99 Mechanical Ventilator 21.00 02/05/18 00:15 88 19 159/69 (99) 99 Mechanical Ventilator 21.00 02/05/18 00:00 89 19 156/69 (98) 99 Mechanical Ventilator 21.00 02/05/18 00:00 Mechanical Ventilator 21 02/05/18 00:00 98.1 02/04/18 23:45 88 19 152/68 (96) 98 Mechanical Ventilator 21.00 02/04/18 23:30 88 19 153/68 (96) 98 Mechanical Ventilator 21.00 02/04/18 23:15 89 20 153/71 (98) 98 Mechanical Ventilator 21.00 02/04/18 23:00 89 20 159/68 (98) 98 Mechanical Ventilator 21.00 02/04/18 22:46 90 20 99 21 02/04/18 22:45 90 27 151/67 (95) 99 Mechanical Ventilator 21.00 02/04/18 22:30 89 20 149/66 (93) 98 Mechanical Ventilator 21.00 8/25/18 22:15 91 19 154/68 (96) 98 Mechanical Ventilator 21.00 02/04/18 22:09 153/67 02/04/18 22:00 93 19 154/68 (96) 98 Mechanical Ventilator 21.00 02/04/18 21:45 95 14 157/65 (95) 98 Mechanical Ventilator 21.00 02/04/18 21:30 99 20 158/67 (97) 98 Mechanical Ventilator 21.00 02/04/18 21:15 98 19 153/64 (93) 98 Mechanical Ventilator 21.00 02/04/18 21:03 98 22 98 21 02/04/18 21:00 93 10 150/63 (92) 91 Mechanical Ventilator 21.00 02/04/18 20:45 96 20 156/65 (95) 97 Mechanical Ventilator 21.00 02/04/18 20:30 96 10 146/64 (91) 98 Mechanical Ventilator 21.00 02/04/18 20:15 96 14 147/63 (91) 98 Mechanical Ventilator 21.00 02/04/18 20:00 97 25 146/63 (90) 98 Mechanical Ventilator 21.00 02/04/18 20:00 Mechanical Ventilator 21 02/04/18 20:00 98.7 02/04/18 19:51 96 20 98 21 02/04/18 19:45 96 27 149/63 (91) 98 Mechanical Ventilator 21.00 02/04/18 19:30 97 13 150/64 (92) 98 Mechanical Ventilator 21.00 02/04/18 19:15 100 23 152/66 (94) 99 Mechanical Ventilator 21.00 02/04/18 19:00 98 02/04/18 19:00 98 21 149/64 (92) 99 Mechanical Ventilator 21.00 02/04/18 18:14 90 21 99 21 02/04/18 18:00 90 9 126/59 (81) 98 Mechanical Ventilator 21.00 02/04/18 17:00 93 11 137/62 (87) 98 Mechanical Ventilator 21.00 02/04/18 16:57 Mechanical Ventilator 21 02/04/18 16:55 94 22 99 21 02/04/18 16:45 Mechanical Ventilator 21 18 16:00 95 13 135/61 (85) 99 Mechanical Ventilator 21.00 18 15:00 98 16 144/62 (89) 98 Mechanical Ventilator 21.00 8/25/18 14:55 98 24 99 21 02/04/18 14:40 90 15 125/55 99 21.00 02/04/18 14:00 90 16 116/52 (73) 98 Mechanical Ventilator 21.00 02/04/18 13:00 92 02/04/18 13:00 92 21 122/53 (76) 98 Mechanical Ventilator 21.00 02/04/18 12:28 Mechanical Ventilator 21 02/04/18 12:10 92 21 100 21 02/04/18 12:00 92 16 126/53 (77) 100 Mechanical Ventilator 35.00 02/04/18 11:05 136/55 02/04/18 11:00 93 16 149/59 (89) 99 Mechanical Ventilator 35.00 02/04/18 10:11 92 21 100 30 02/04/18 10:00 99 19 147/65 (92) 99 Mechanical Ventilator 35.00 02/04/18 08:41 Mechanical Ventilator 35 02/04/18 08:38 98.4 Mechanical Ventilator 35.00 02/04/18 08:19 109/50 02/04/18 08:00 104 20 109/49 (69) 99 Mechanical Ventilator 50.00 I & O 02/05/18 07:00 Intake Total 552.5 ml Output Total 2305 ml Balance -1752.5 ml Capillary Refill : Less Than 3 Seconds General Appearance: No Apparent Distress Cardiovascular: Normal Peripheral Pulses Skin: Other (Trachea midline, no incision site swelling, Incision CDI) Results Lab Laboratory Tests 02/04/18 08:28: Glucometer 384H 02/04/18 09:36: Glucometer 346H 02/04/18 10:49: Glucometer 302H 02/04/18 11:29: Glucometer 276H 02/04/18 12:24: Lactic Acid Level 1.36 02/04/18 12:28: Glucometer 246H 02/04/18 12:29: Blood Gas Puncture Site LT RAD, Blood Gas Patient Temperature 99.7, Arterial Blood pH 7.33*L, Arterial Blood Partial Pressure CO2 45, Arterial Blood Partial Pressure O2 63L, Arterial Blood HCO3 23, Arterial Blood Total CO2 24.0, Arterial Blood Oxygen Saturation 94, Arterial Blood Base Excess -2.2, Jem Test ART LINE, Blood Gas Ventilator Setting YES, Blood Gas Inspired Oxygen 21% 02/04/18 13:45: Glucometer 192H 02/04/18 14:34: Glucometer 166H 02/04/18 16:16: Glucometer 108 02/04/18 17:17: Glucometer 88 02/04/18 18:12: Glucometer 71 02/04/18 19:00: Glucometer 60*L 02/04/18 19:22: Glucometer 119H 02/04/18 20:04: Glucometer 120H 02/05/18 00:07: Glucometer 218H 02/05/18 03:55: White Blood Count 11.6H, Red Blood Count 2.70L, Hemoglobin 7.8L, Hematocrit 23L , Mean Corpuscular Volume 86, Mean Corpuscular Hemoglobin 29, Mean Corpuscular Hemoglobin Concent 34, Red Cell Distribution Width 12.7, Platelet Count 225, Mean Platelet Volume 10.6H, Neutrophils (%) (Auto) 93H, Lymphocytes (%) (Auto) 3L, Monocytes (%) (Auto) 4, Eosinophils (%) (Auto) 0, Basophils (%) (Auto) 0, Neutrophils # (Auto) 10.8H, Lymphocytes # (Auto) 0.4L, Monocytes # (Auto) 0.4, Eosinophils # (Auto) 0.0, Basophils # (Auto) 0.0, Blood Gas Puncture Site LEFT RADIAL, Blood Gas Patient Temperature 98.1, Arterial Blood pH 7.38, Arterial Blood Partial Pressure CO2 41, Arterial Blood Partial Pressure O2 61L, Arterial Blood HCO3 24, Arterial Blood Total CO2 24.9, Arterial Blood Oxygen Saturation 95, Arterial Blood Base Excess -0.9, Jem Test ART LINE, Blood Gas Ventilator Setting YES, Blood Gas Inspired Oxygen 21%, Sodium Level 142, Potassium Level 4.5, Chloride Level 108H, Carbon Dioxide Level 19L, Anion Gap 15H, Blood Urea Nitrogen 86H, Creatinine 2.20H, Estimat Glomerular Filtration Rate 32, BUN/ Creatinine Ratio 39, Glucose Level 244H, Calcium Level 8.0L, Phosphorus Level 5.3H, Magnesium Level 3.2H Microbiology 02/03/18 Blood Culture - Preliminary, Resulted No growth 01/31/18 Genital Culture - Final, Complete No growth 02/03/18 Gram Stain - Final, Resulted 02/03/18 Sputum Culture - Preliminary, Resulted Usual/normal harini isolated. 01/31/18 Urine Culture - Final, Complete NO GROWTH Assessment/Plan Assessment/Plan Assess & Plan/Chief Complaint S/P C3-7 ACDF with C5 corpectomy Renal failure respiratory failure DM Clinical Quality Measures DVT/VTE Risk/Contraindication: Risk Factor Score Per Nursin RFS Level Per Nursing on Admit: 2=Moderate APRIL LA Feb 05, 2018 07:51
[2018-02-05] MEDS: CLOPIDOGREL 75 MG (PLAVIX) TABLET PO SCH (08:31)
[2018-02-05] MEDS: SENNOSIDES 8.6 MG (SENOKOT) TAB PO SCH ×2 (08:31→21:02)
[2018-02-05] MEDS: meTOprolol TARTRATE 50 MG (LOPRESSOR) TAB PO SCH ×2 (08:31→21:02)
[2018-02-05] MEDS: ASPIRIN 81 MG CHEW (CHILDREN'S ASA) PO SCH (08:31)
[2018-02-05] MEDS: amLODIPine 10 MG (NORVASC) TAB PO SCH (08:31)
[2018-02-05] MEDS: PANTOPRAZOLE 40 MG (PROTONIX) VIAL IV SCH (08:32)
--- NOTE | 2018-02-05 09:13 | Diagnostic Imaging Report ---
INDICATION: Dyspnea. TECHNIQUE: Single view chest 3:22 AM. CORRELATION STUDY: 02/04/2018 FINDINGS: Cardiac enlargement unchanged as well as prominent mediastinum. Endotracheal tube, gastric tube and right-sided central line remain in place. Tip of the right-sided central line likely in the right atrium. Component likely vascular congestion is present. Some overall improved aeration through the lung kunz. Scattered bilateral perihilar and basilar infiltrates, however do persist. IMPRESSION: 1. Generally stable appearance about support lines and tubes. 2. Cardiac enlargement with component of vascular congestion. Some improved aeration of the lung kunz with scattered areas of infiltrate and/or edema do persist. Dictated by: Dictated on workstation # [id number]
--- NOTE | 2018-02-05 12:28 | Progress Note-Hospitalist ---
Subjective HPI/CC On Admission Date Seen by Provider: Feb 05, 2018 Time Seen by Provider: 11:30 Subjective/Events-last exam Patient still intubated Urinary output has increased and doing very well from that status And likely will be extubated tomorrow Insulin drip discontinued so placed on aggressive sliding scale insulin regimen Patient sedated and has no signs of pain Focused Exam Lactate Level 02/03/18 05:50: Lactic Acid Level 0.53 02/04/18 06:25: Lactic Acid Level 1.68 02/04/18 12:24: Lactic Acid Level 1.36 Objective Exam Vital Signs Vital Signs Date Time Temp Pulse Resp B/P (MAP) Pulse Ox O2 Delivery O2 Flow Rate FiO2 02/05/18 10:23 82 20 98 21 02/05/18 09:00 157/71 (99) Mechanical Ventilator 21.00 02/05/18 08:31 98.4 Capillary Refill : Less Than 3 Seconds General Appearance: No Apparent Distress, WD/WN, Other (Intubated) Respiratory: Lungs Clear, Normal Breath Sounds Cardiovascular: Regular Rate, Rhythm, No Edema Results/Procedures Lab Laboratory Tests 02/05/18 03:55 Patient resulted labs reviewed. Assessment/Plan Assessment and Plan Assess & Plan/Chief Complaint Respiratory failure now VDRF ARF DM UTI Plan: Continue supportive care Monitor creatinine closely Abx Critical Care Critical Care: Critically Ill Patient Diagnosis/Problems Diagnosis/Problems (1) Respiratory failure Status: Acute Qualifiers: Chronicity: acute Respiratory failure complication: unspecified whether with hypoxia or hypercapnia Qualified Codes: J96.00 - Acute respiratory failure, unspecified whether with hypoxia or hypercapnia (2) UTI (urinary tract infection) Status: Acute Qualifiers: Urinary tract infection type: acute cystitis Hematuria presence: without hematuria Qualified Codes: N30.00 - Acute cystitis without hematuria (3) Urinary retention Status: Acute (4) Renal failure Status: Acute Qualifiers: Renal failure chronicity: acute Acute renal failure type: unspecified Qualified Codes: N17.9 - Acute kidney failure, unspecified (5) Cervical myelopathy Status: Chronic (6) Uncontrolled diabetes mellitus Status: Chronic Qualifiers: Diabetes mellitus type: type 2 Clinical Quality Measures DVT/VTE Risk/Contraindication: Risk Factor Score Per Nursin RFS Level Per Nursing on Admit: 2=Moderate JULY MIJARES DO Feb 05, 2018 12:28
[2018-02-05] MEDS: morphine INJ 4 MG/ML 1 ML (VIAL/SYRINGE) IVP PRN ×2 (13:13→18:36)
--- NOTE | 2018-02-05 14:10 | Progress Note-Cardiology ---
Cardiology SOAP Progress Note Subjective: Intubated, sedated, on mech vent, unable to provide history Objective: I&O/Vital Signs 02/05/18 02/05/18 02/05/18 02/05/18 02:15 02:30 02:45 03:00 Pulse 89 93 89 88 Resp 18 13 20 23 B/P (MAP) 164/70 (101) 172/72 (105) 166/70 (102) 160/69 (99) Pulse Ox 99 99 99 98 O2 Delivery Mechanical Ventilator Mechanical Ventilator Mechanical Ventilator Mechanical Ventilator O2 Flow Rate 21.00 21.00 21.00 21.00 02/05/18 02/05/18 02/05/18 02/05/18 03:15 03:25 03:30 03:45 Pulse 87 90 90 87 Resp 24 22 11 19 B/P (MAP) 155/68 (97) 169/74 (105) 163/70 (101) Pulse Ox 98 100 98 98 O2 Delivery Mechanical Ventilator Mechanical Ventilator Mechanical Ventilator O2 Flow Rate 21.00 21.00 21.00 FiO2 21 02/05/18 02/05/18 02/05/18 02/05/18 04:00 04:00 04:00 04:01 Temp 98.1 Pulse 90 Resp 17 B/P (MAP) 150/69 (96) 154/70 Pulse Ox 99 O2 Delivery Mechanical Ventilator Mechanical Ventilator O2 Flow Rate 21.00 FiO2 21 02/05/18 02/05/18 02/05/18 02/05/18 04:15 04:30 04:45 05:00 Pulse 86 86 86 86 Resp 20 19 20 20 B/P (MAP) 143/69 (93) 152/69 (96) 154/69 (97) 155/70 (98) Pulse Ox 98 99 99 99 O2 Delivery Mechanical Ventilator Mechanical Ventilator Mechanical Ventilator Mechanical Ventilator O2 Flow Rate 21.00 21.00 21.00 21.00 02/05/18 02/05/18 02/05/18 02/05/18 05:15 05:30 05:45 06:00 Pulse 87 84 85 84 Resp 17 20 19 19 B/P (MAP) 163/72 (102) 153/70 (97) 160/76 (104) 155/70 (98) Pulse Ox 99 99 99 99 O2 Delivery Mechanical Ventilator Mechanical Ventilator Mechanical Ventilator Mechanical Ventilator O2 Flow Rate 21.00 21.00 21.00 21.00 02/05/18 02/05/18 02/05/18 02/05/18 06:13 06:15 06:30 06:45 Pulse 84 84 84 85 Resp 20 19 19 19 B/P (MAP) 151/73 (99) 149/68 (95) 148/67 (94) Pulse Ox 100 99 98 98 O2 Delivery Mechanical Ventilator Mechanical Ventilator Mechanical Ventilator O2 Flow Rate 21.00 21.00 21.00 FiO2 21 02/05/18 02/05/18 02/05/18 02/05/18 07:00 07:00 07:09 08:00 Pulse 85 84 83 Resp 20 20 B/P (MAP) 145/71 (95) 145/67 149/68 (95) Pulse Ox 99 99 O2 Delivery Mechanical Ventilator Mechanical Ventilator O2 Flow Rate 21.00 21.00 02/05/18 02/05/18 02/05/18 02/05/18 08:17 08:31 08:31 09:00 Temp 98.4 Pulse 84 80 Resp 20 19 B/P (MAP) 157/71 (99) Pulse Ox 100 99 O2 Delivery Mechanical Ventilator Mechanical Ventilator Mechanical Ventilator O2 Flow Rate 21.00 21.00 FiO2 21 21 02/05/18 02/05/18 02/05/18 02/05/18 10:23 12:32 12:40 12:57 Pulse 82 83 Resp 20 20 B/P (MAP) 154/64 Pulse Ox 98 98 O2 Delivery Mechanical Ventilator FiO2 21 21 21 02/05/18 00:00 Intake Total 552.5 ml Output Total 790 ml Balance -237.5 ml Weight (Pounds): 288 Weight (Ounces): 0.0 Weight (Calculated Kilograms): 130.693061 Constitutional: other (Intubated, sedated, on mech vent) Respiratory: other (good bilat air entry, diminished at the bases) Cardiovascular: regular rate-rhythm, S1 and S2, systolic murmur (soft KYLE at card base) Gastrointestional: soft; No guarding, No rebound; audible bowel sounds Extremities: No clubbing, No cyanosis, No significant edema Neurologic/Psychiatric: other (on mech vent and unable to cooperate with a neuro exam) Skin: No rash on exposed areas, No ulcerations on exposed areas Results/Procedures: Labs Laboratory Tests 02/04/18 14:34: Glucometer 166H 02/04/18 16:16: Glucometer 108 02/04/18 17:17: Glucometer 88 02/04/18 18:12: Glucometer 71 02/04/18 19:00: Glucometer 60*L 02/04/18 19:22: Glucometer 119H 02/04/18 20:04: Glucometer 120H 02/05/18 00:07: Glucometer 218H 02/05/18 03:55: White Blood Count 11.6H, Red Blood Count 2.70L, Hemoglobin 7.8L, Hematocrit 23L , Mean Corpuscular Volume 86, Mean Corpuscular Hemoglobin 29, Mean Corpuscular Hemoglobin Concent 34, Red Cell Distribution Width 12.7, Platelet Count 225, Mean Platelet Volume 10.6H, Neutrophils (%) (Auto) 93H, Lymphocytes (%) (Auto) 3L, Monocytes (%) (Auto) 4, Eosinophils (%) (Auto) 0, Basophils (%) (Auto) 0, Neutrophils # (Auto) 10.8H, Lymphocytes # (Auto) 0.4L, Monocytes # (Auto) 0.4, Eosinophils # (Auto) 0.0, Basophils # (Auto) 0.0, Blood Gas Puncture Site LEFT RADIAL, Blood Gas Patient Temperature 98.1, Arterial Blood pH 7.38, Arterial Blood Partial Pressure CO2 41, Arterial Blood Partial Pressure O2 61L, Arterial Blood HCO3 24, Arterial Blood Total CO2 24.9, Arterial Blood Oxygen Saturation 95, Arterial Blood Base Excess -0.9, Jem Test ART LINE, Blood Gas Ventilator Setting YES, Blood Gas Inspired Oxygen 21%, Sodium Level 142, Potassium Level 4.5, Chloride Level 108H, Carbon Dioxide Level 19L, Anion Gap 15H, Blood Urea Nitrogen 86H, Creatinine 2.20H, Estimat Glomerular Filtration Rate 32, BUN/ Creatinine Ratio 39, Glucose Level 244H, Calcium Level 8.0L, Phosphorus Level 5.3H, Magnesium Level 3.2H 02/05/18 08:23: Glucometer 254H 02/05/18 08:40: Triglycerides Level 113 02/05/18 13:01: Glucometer 253H Microbiology 02/03/18 Blood Culture - Preliminary, Resulted No growth 01/31/18 Genital Culture - Final, Complete No growth 02/03/18 Gram Stain - Final, Complete 02/03/18 Sputum Culture - Final, Complete Usual upper respiratory harini 01/31/18 Urine Culture - Final, Complete NO GROWTH Laboratory Tests 02/04/18 03:20 02/05/18 03:55 A/P: Assessment: Spinal stenosis, status post C3-7 ACDF with C5 corpectomy done by Dr. Hardwick Acute respiratory failure, difficult intubation required multiple attempts, currently ventilator dependent managed by Dr. Gao. Mild troponin elevation, probably related to prolonged hypoxia Acute on chronic renal failure Status post fever and leukocytosis, systemic infection suspected and managed by the Med and ICU Svces Coronary artery disease: Card cath in Jun 2017 showed significant mid LAD stenosis that was stented with Alpine 3.018 mm sten, mild to moderate disease in the proximal portion of the LAD, moderate disease in the distal circumflex artery. Carotid artery stenosis-mild nonobstructive disease per carotid duplex done July 2017, Diabetes mellitus II, managed by Dr. Younger. Diabetic neuropathy, followed and managed by Dr. Younger. Hypertension Hyperlipidemia, intolerant to Lipitor with severe diarrhea PAD: patient underwent peripheral angiogram done February 09, 2016 revealing mild to moderate disease in the anterior tibial of the left lower extremity and posterior tibial at 60-70 percent. Anterior tibial with good flow down to the ankle on the left lower extremity, otherwise mild disease in the right lower extremity and abdominal aorta Plan: * DAPT resumed * Monitor labs * Consider blood transfusion if H/H drop further LORAINE POST MD FACP FAC CCDS Feb 05, 2018 14:10
[2018-02-05] MEDS: fentaNYL INJECTION 1,250 MCG in NS (IVPB) 225 ML IV SCH (16:14)
[2018-02-05] MEDS: GLIMEPIRIDE 2 MG (AMARYL) TAB PO SCH (17:22)
[2018-02-05] MEDS: LORATADINE (CLARITIN) 10 MG TAB PO SCH (17:22)
[2018-02-05] MEDS: ROSUVASTATIN 5 MG (CRESTOR) TABLET PO SCH (21:02)
[2018-02-06] VITALS (65 sets, daily range): BP systolic 129–198; BP diastolic 55–134
[2018-02-06] MEDS: 1/2 NS IV SCH ×2 (00:28→03:04)
[2018-02-06] MEDS: SODIUM BICARBONATE IV SCH ×2 (00:28→03:04)
[2018-02-06] MEDS: NOVOLOG SC SCH ×6 (01:38→20:23)
[2018-02-06] MEDS: HUMALOG SC SCH ×6 (01:38→20:23)
[2018-02-06] MEDS: PROPOFOL DRIP (ICU) 100 ML IV SCH ×3 (02:18→07:27)
[2018-02-06] MEDS: RT-ALBUTEROL/IPRATROPIUM 3 ML (DUONEB) VIAL INH SCH ×6 (02:23→22:05)
[2018-02-06 04:06] LABS: BASOPHILS % (AUTO) 0 % (0-10); EOSINOPHILS % (AUTO) 0 % (0-10); HEMATOCRIT 24 % (40-54); HEMOGLOBIN 7.9 G/DL (13.3-17.7); LYMPHOCYTES # (AUTO) 0.4 X 10^3 (1.0-4.0); LYMPHOCYTES % (AUTO) 4 % (12-44); MEAN CORPUSCULAR HEMOGLOBIN 28 PG (25-34); MEAN CORPUSCULAR HGB CONC 32 G/DL (32-36); MEAN CORPUSCULAR VOLUME 87 FL (80-99); MEAN PLATELET VOLUME 10.2 FL (7.4-10.4); MONOCYTES # (AUTO) 0.5 X 10^3 (0.0-1.0); MONOCYTES % (AUTO) 5 % (0-12); NEUTROPHILS # (AUTO) 9.6 X 10^3 (1.8-7.8); NEUTROPHILS % (AUTO) 91 % (42-75); PLATELET COUNT 251 10^3/uL (130-400); RED CELL DISTRIBUTION WIDTH 12.9 % (10.0-14.5); WHITE BLOOD COUNT 10.6 10^3/uL (4.3-11.0)
[2018-02-06 04:07] LABS: ABG OXYGEN SATURATION 98 % (94-100); ABG PCO2 44 MMHG (35-45); ABG PH 7.39 (7.37-7.43); ABG PO2 83 MMHG (79-93); ABG TCO2 27.8 MMOL/L (21.0-31.0)
[2018-02-06 04:08] LABS: ALLENS TEST YES-POS; INSPIRED O2 30%; PATIENT TEMP 98.3; VENTILATOR YES
[2018-02-06 04:24] LABS: CALCIUM 7.9 MG/DL (8.5-10.1); CREATININE SERUM 2.08 MG/DL (0.60-1.30); MAGNESIUM 3.6 MG/DL (1.8-2.4); PHOSPHORUS 5.1 MG/DL (2.3-4.7); POTASSIUM 4.1 MMOL/L (3.6-5.0)
[2018-02-06] MEDS: POTASSIUM CL 10MEQ/50ML IVPB 50 ML IV SCH (04:30)
[2018-02-06] MEDS: MAGNESIUM 1 GM/100 ML IVPB 100 ML IV SCH (04:44)
[2018-02-06] MEDS: KCL 20 MEQ TAB (K-DUR) PO SCH (04:45)
[2018-02-06] MEDS ORDERED: FUROSEMIDE 40 MG/4 ML INJ (LASIX) IVP ONE (05:30)
--- NOTE | 2018-02-06 05:31 | Pulmonary Progress Note ---
Subjective Time Seen by Provider: 05:31 Subjective/Events-last exam Pt sedated on vent Sepsis Event Evaluation Height, Weight, BMI Height: 5'11.00" Weight: 288lbs. 0.0oz. 130.382021gr; 40.2 BMI Method:Stated Focused Exam Lactate Level 02/03/18 05:50: Lactic Acid Level 0.53 02/04/18 06:25: Lactic Acid Level 1.68 02/04/18 12:24: Lactic Acid Level 1.36 Exam Exam Vital Signs Date Time Temp Pulse Resp B/P (MAP) Pulse Ox O2 Delivery O2 Flow Rate FiO2 02/06/18 05:01 88 02/06/18 05:00 87 19 137/55 (82) 96 Mechanical Ventilator 30.00 02/06/18 04:45 88 19 145/56 (85) 95 Mechanical Ventilator 30.00 02/06/18 04:30 89 20 153/58 (89) 95 Mechanical Ventilator 30.00 02/06/18 04:15 90 19 153/60 (91) 95 Mechanical Ventilator 30.00 02/06/18 04:13 96 20 96 30 02/06/18 04:10 96 14 96 30 02/06/18 04:00 89 20 152/63 (92) 95 Mechanical Ventilator 30.00 02/06/18 04:00 94 Mechanical Ventilator 30.00 02/06/18 03:45 88 20 153/58 (89) 95 Mechanical Ventilator 30.00 02/06/18 03:30 86 20 152/56 (88) 95 Mechanical Ventilator 30.00 02/06/18 03:15 87 20 150/56 (87) 95 Mechanical Ventilator 30.00 02/06/18 03:00 88 20 151/57 (88) 95 Mechanical Ventilator 30.00 02/06/18 02:45 88 20 152/57 (88) 95 Mechanical Ventilator 30.00 02/06/18 02:30 90 19 164/61 (95) 96 Mechanical Ventilator 30.00 02/06/18 02:23 89 20 96 30 02/06/18 02:18 98.9 91 20 160/62 94 Mechanical Ventilator 30.00 02/06/18 02:15 90 19 162/57 (92) 96 Mechanical Ventilator 30.00 02/06/18 02:00 90 19 160/57 (91) 96 Mechanical Ventilator 30.00 02/06/18 01:45 86 19 134/55 (81) 96 Mechanical Ventilator 30.00 02/06/18 01:30 90 20 135/55 (81) 95 Mechanical Ventilator 30.00 02/06/18 01:15 91 19 136/55 (82) 95 Mechanical Ventilator 30.00 02/06/18 01:00 91 02/06/18 01:00 91 19 129/55 (79) 95 Mechanical Ventilator 30.00 02/06/18 00:45 92 20 145/58 (87) 95 Mechanical Ventilator 30.00 02/06/18 00:30 94 19 150/62 (91) 93 Mechanical Ventilator 30.00 02/06/18 00:15 95 17 145/59 (87) 96 Mechanical Ventilator 30.00 02/06/18 00:00 93 20 160/62 (94) 94 Mechanical Ventilator 30.00 02/06/18 00:00 94 Mechanical Ventilator 30.00 02/05/18 23:46 98.9 93 19 138/55 95 Mechanical Ventilator 30.00 02/05/18 23:45 98 19 163/63 (96) 96 Mechanical Ventilator 30.00 02/05/18 23:30 93 20 139/57 (84) 95 Mechanical Ventilator 30.00 02/05/18 23:15 93 19 138/55 (82) 95 Mechanical Ventilator 30.00 02/05/18 23:00 94 19 142/57 (85) 95 Mechanical Ventilator 30.00 02/05/18 22:45 92 19 138/56 (83) 94 Mechanical Ventilator 30.00 02/05/18 22:30 92 20 137/56 (83) 94 Mechanical Ventilator 30.00 02/05/18 22:15 93 20 139/58 (85) 96 Mechanical Ventilator 30.00 02/05/18 22:00 94 19 138/58 (84) 95 Mechanical Ventilator 30.00 02/05/18 21:45 96 20 143/58 (86) 96 Mechanical Ventilator 30.00 02/05/18 21:30 98 19 151/61 (91) 95 Mechanical Ventilator 30.00 02/05/18 21:26 100 02/05/18 21:15 102 17 146/60 (88) 95 Mechanical Ventilator 30.00 02/05/18 21:12 102 23 95 30 02/05/18 21:00 101 17 140/58 (85) 94 Mechanical Ventilator 30.00 02/05/18 20:45 101 16 132/56 (81) 93 Mechanical Ventilator 30.00 02/05/18 20:30 101 19 131/54 (79) 93 Mechanical Ventilator 30.00 02/05/18 20:15 101 17 127/52 (77) 92 Mechanical Ventilator 30.00 02/05/18 20:00 94 Mechanical Ventilator 30.00 02/05/18 20:00 102 19 137/56 (83) 92 Mechanical Ventilator 30.00 02/05/18 19:45 102 16 134/57 (82) 92 Mechanical Ventilator 30.00 02/05/18 19:30 101 15 132/56 (81) 92 Mechanical Ventilator 30.00 02/05/18 19:15 100 12 133/56 (81) 93 Mechanical Ventilator 30.00 02/05/18 19:00 98 19 139/57 (84) 94 Mechanical Ventilator 30.00 02/05/18 19:00 98 02/05/18 18:51 99 20 94 30 02/05/18 18:35 152/62 02/05/18 18:00 98 17 123/54 (77) 95 Mechanical Ventilator 30.00 02/05/18 17:00 101 20 141/57 (85) 94 Mechanical Ventilator 30.00 02/05/18 16:36 101 22 93 30 02/05/18 16:29 Mechanical Ventilator 30 02/05/18 16:27 98.9 Mechanical Ventilator 30.00 02/05/18 16:00 104 20 156/62 (93) 93 Mechanical Ventilator 21.00 02/05/18 15:53 162/63 02/05/18 15:00 92 23 165/65 (98) 94 Mechanical Ventilator 21.00 02/05/18 14:27 85 20 96 21 02/05/18 14:00 85 19 140/60 (86) 97 Mechanical Ventilator 21.00 02/05/18 13:00 92 02/05/18 13:00 90 20 157/65 (95) 99 Mechanical Ventilator 21.00 02/05/18 12:57 154/64 02/05/18 12:40 Mechanical Ventilator 21 02/05/18 12:32 83 20 98 21 02/05/18 12:00 81 20 140/60 (86) 98 Mechanical Ventilator 21.00 02/05/18 11:00 82 19 143/61 (88) 98 Mechanical Ventilator 21.00 02/05/18 10:23 82 20 98 21 02/05/18 10:00 80 19 159/70 (99) 98 Mechanical Ventilator 21.00 02/05/18 09:00 80 19 157/71 (99) 99 Mechanical Ventilator 21.00 02/05/18 08:31 98.4 Mechanical Ventilator 21.00 02/05/18 08:31 Mechanical Ventilator 21 02/05/18 08:17 84 20 100 21 02/05/18 08:00 83 20 149/68 (95) 99 Mechanical Ventilator 21.00 02/05/18 07:09 145/67 02/05/18 07:00 84 20 145/71 (95) 99 Mechanical Ventilator 21.00 02/05/18 07:00 85 02/05/18 06:45 85 19 148/67 (94) 98 Mechanical Ventilator 21.00 02/05/18 06:30 84 19 149/68 (95) 98 Mechanical Ventilator 21.00 02/05/18 06:15 84 19 151/73 (99) 99 Mechanical Ventilator 21.00 02/05/18 06:13 84 20 100 21 02/05/18 06:00 84 19 155/70 (98) 99 Mechanical Ventilator 21.00 02/05/18 05:45 85 19 160/76 (104) 99 Mechanical Ventilator 21.00 02/05/18 05:30 84 20 153/70 (97) 99 Mechanical Ventilator 21.00 I & O 02/06/18 07:00 Intake Total 3104 ml Output Total 2380 ml Balance 724 ml Height & Weight Height: 5'11.00" Weight: 288lbs. 0.0oz. 130.326599es; 40.2 BMI Method:Stated General Appearance: No Apparent Distress, WD/WN, Other (Intubated) HEENT: PERRL/EOMI, Other (ET tube in place ) Neck: No JVD; Other (incison dressing clean and dry) Respiratory: Lungs Clear, Normal Breath Sounds Cardiovascular: Regular Rate, Rhythm, No Edema Capillary Refill: Less Than 3 Seconds Gastrointestinal: normal bowel sounds, soft Extremity: Normal Capillary Refill Neurologic/Psychiatric: Other (intubated and sedated) Skin: Other (Trachea midline, no incision site swelling, Incision CDI) Lymphatic: No Adenopathy Results Lab Laboratory Tests 02/05/18 03:55 02/06/18 03:55 Assessment/Plan Assessment/Plan HX of cervical stenosis S/P C3-7 ACDF with C5 corpectomy Acute respiratory failure/distress -Continue ventilator -Will start to wean Vent Today -CXR reviewed and shows bibasilar atelectasis/infiltrate. PT was a very difficult intubation. - Will do a bedside bronch for mucous plugs and to optimize successful extubation. -Give Lasix 40mg IV X 1 -KVO IVF Hypermag, Hyperphos -D/C multivitamin and MOM UTI with sepsis and urinary retention - Zosyn (MRSA swab is negative) -repeat Manjarrez cultures - pending CKD with hyperkalemia and metabolic acidosis -D/C Bicarb gtt -continue to monitor Anemia - monitor I talked with patients mother who is next to kin. I answered all of her questions and she does give consent for bronchoscopy. Total time spent with patient, medical staff, and family not including procedure is 60min. JORGE GONZALEZ DO Feb 06, 2018 05:31
[2018-02-06] MEDS ORDERED: NS IV 1000 ML 1,000 ML IV SCH (05:45)
[2018-02-06] MEDS: GLIMEPIRIDE 4 MG (AMARYL) TAB PO SCH (05:48)
[2018-02-06] MEDS: methylPREDNISolone 40 MG/ML (Solu-MEDROL) VIAL IV SCH ×3 (05:48→17:34)
[2018-02-06] MEDS: PIPERACILLIN SODIUM/TAZOBACTAM 4.5 GM in D5W 100 ML IVPB 100 ML IV SCH ×2 (06:05→14:09)
--- NOTE | 2018-02-06 07:01 | Pulmonary Procedures ---
Pulmonary Procedures Date of Procedure Date of Service: Feb 06, 2018 Bronch Bronchoscopy with bronchoalveolar lavage (BAL), transbronchial washes. Preop DX Mucous plugging Postop DX: same Complications: none After informed consent obtained and formal time out pt was sedated using Fentanyl and Versed. Bronchoscope was advanced through the nare and vocal cords. 1% lidocaine was used to anesthetize vocal cords, epiglottis, raffaele, and left/right main stem bronchus. An anatomical tour was undertaken down to the segmental bronchi bilaterally. No endobronchial lesions noted. From the RML a bronchoalveolar lavage (BAL), transbronchial washes obtained. Pt tolerated procedure well. No complications noted. Stat CXR is pending. JORGE GONZALEZ DO Feb 06, 2018 07:01
[2018-02-06] MEDS ORDERED: NS (IVPB) 50 ML ONE (07:17)
[2018-02-06] MEDS ORDERED: DEXMEDETOMIDINE INJECTION 200 MCG in NS (IVPB) 50 ML IV SCH (07:30)
--- NOTE | 2018-02-06 07:34 | Progress Note (SOAP) ---
Subjective Time Seen by Provider: 07:15 Subjective/Events-last exam Patient on ventilator. Patient resting comfortably. Patient's blood tests and x-rays stable. Patient may be extubated later today Focused Exam Lactate Level 02/04/18 06:25: Lactic Acid Level 1.68 02/04/18 12:24: Lactic Acid Level 1.36 Objective Exam Vital Signs Date Time Temp Pulse Resp B/P (MAP) Pulse Ox O2 Delivery O2 Flow Rate FiO2 02/06/18 07:27 98.9 82 19 150/57 96 Mechanical Ventilator 30.00 02/06/18 06:45 82 19 150/57 (88) 96 Mechanical Ventilator 30.00 02/06/18 06:36 82 20 96 30 02/06/18 06:30 82 19 148/57 (87) 96 Mechanical Ventilator 30.00 02/06/18 06:15 83 19 153/57 (89) 96 Mechanical Ventilator 30.00 02/06/18 06:00 86 20 151/61 (91) 96 Mechanical Ventilator 30.00 02/06/18 05:45 85 19 151/57 (88) 96 Mechanical Ventilator 30.00 02/06/18 05:30 87 20 149/58 (88) 95 Mechanical Ventilator 30.00 02/06/18 05:15 88 16 156/65 (95) 96 Mechanical Ventilator 30.00 02/06/18 05:01 88 02/06/18 05:00 87 19 137/55 (82) 96 Mechanical Ventilator 30.00 02/06/18 05:00 87 20 97 02/06/18 04:45 88 19 145/56 (85) 95 Mechanical Ventilator 30.00 02/06/18 04:30 89 20 153/58 (89) 95 Mechanical Ventilator 30.00 02/06/18 04:15 90 19 153/60 (91) 95 Mechanical Ventilator 30.00 02/06/18 04:13 96 20 96 30 02/06/18 04:10 96 14 96 30 02/06/18 04:00 89 20 152/63 (92) 95 Mechanical Ventilator 30.00 02/06/18 04:00 94 Mechanical Ventilator 30.00 02/06/18 03:45 88 20 153/58 (89) 95 Mechanical Ventilator 30.00 02/06/18 03:30 86 20 152/56 (88) 95 Mechanical Ventilator 30.00 02/06/18 03:15 87 20 150/56 (87) 95 Mechanical Ventilator 30.00 02/06/18 03:00 88 20 151/57 (88) 95 Mechanical Ventilator 30.00 02/06/18 02:45 88 20 152/57 (88) 95 Mechanical Ventilator 30.00 02/06/18 02:30 90 19 164/61 (95) 96 Mechanical Ventilator 30.00 02/06/18 02:23 89 20 96 30 02/06/18 02:18 98.9 91 20 160/62 94 Mechanical Ventilator 30.00 02/06/18 02:15 90 19 162/57 (92) 96 Mechanical Ventilator 30.00 02/06/18 02:00 90 19 160/57 (91) 96 Mechanical Ventilator 30.00 02/06/18 01:45 86 19 134/55 (81) 96 Mechanical Ventilator 30.00 02/06/18 01:30 90 20 135/55 (81) 95 Mechanical Ventilator 30.00 02/06/18 01:15 91 19 136/55 (82) 95 Mechanical Ventilator 30.00 02/06/18 01:00 91 02/06/18 01:00 91 19 129/55 (79) 95 Mechanical Ventilator 30.00 02/06/18 00:45 92 20 145/58 (87) 95 Mechanical Ventilator 30.00 02/06/18 00:30 94 19 150/62 (91) 93 Mechanical Ventilator 30.00 02/06/18 00:15 95 17 145/59 (87) 96 Mechanical Ventilator 30.00 02/06/18 00:00 93 20 160/62 (94) 94 Mechanical Ventilator 30.00 02/06/18 00:00 94 Mechanical Ventilator 30.00 02/05/18 23:46 98.9 93 19 138/55 95 Mechanical Ventilator 30.00 02/05/18 23:45 98 19 163/63 (96) 96 Mechanical Ventilator 30.00 02/05/18 23:30 93 20 139/57 (84) 95 Mechanical Ventilator 30.00 02/05/18 23:15 93 19 138/55 (82) 95 Mechanical Ventilator 30.00 02/05/18 23:00 94 19 142/57 (85) 95 Mechanical Ventilator 30.00 02/05/18 22:45 92 19 138/56 (83) 94 Mechanical Ventilator 30.00 02/05/18 22:30 92 20 137/56 (83) 94 Mechanical Ventilator 30.00 02/05/18 22:15 93 20 139/58 (85) 96 Mechanical Ventilator 30.00 02/05/18 22:00 94 19 138/58 (84) 95 Mechanical Ventilator 30.00 02/05/18 21:45 96 20 143/58 (86) 96 Mechanical Ventilator 30.00 02/05/18 21:30 98 19 151/61 (91) 95 Mechanical Ventilator 30.00 02/05/18 21:26 100 02/05/18 21:15 102 17 146/60 (88) 95 Mechanical Ventilator 30.00 02/05/18 21:12 102 23 95 30 02/05/18 21:00 101 17 140/58 (85) 94 Mechanical Ventilator 30.00 02/05/18 20:45 101 16 132/56 (81) 93 Mechanical Ventilator 30.00 02/05/18 20:30 101 19 131/54 (79) 93 Mechanical Ventilator 30.00 02/05/18 20:15 101 17 127/52 (77) 92 Mechanical Ventilator 30.00 02/05/18 20:00 94 Mechanical Ventilator 30.00 02/05/18 20:00 102 19 137/56 (83) 92 Mechanical Ventilator 30.00 02/05/18 19:45 102 16 134/57 (82) 92 Mechanical Ventilator 30.00 02/05/18 19:30 101 15 132/56 (81) 92 Mechanical Ventilator 30.00 02/05/18 19:15 100 12 133/56 (81) 93 Mechanical Ventilator 30.00 02/05/18 19:00 98 19 139/57 (84) 94 Mechanical Ventilator 30.00 02/05/18 19:00 98 02/05/18 18:51 99 20 94 30 02/05/18 18:35 152/62 02/05/18 18:00 98 17 123/54 (77) 95 Mechanical Ventilator 30.00 02/05/18 17:00 101 20 141/57 (85) 94 Mechanical Ventilator 30.00 02/05/18 16:36 101 22 93 30 02/05/18 16:29 Mechanical Ventilator 30 02/05/18 16:27 98.9 Mechanical Ventilator 30.00 02/05/18 16:00 104 20 156/62 (93) 93 Mechanical Ventilator 21.00 02/05/18 15:53 162/63 02/05/18 15:00 92 23 165/65 (98) 94 Mechanical Ventilator 21.00 02/05/18 14:27 85 20 96 21 02/05/18 14:00 85 19 140/60 (86) 97 Mechanical Ventilator 21.00 02/05/18 13:00 92 02/05/18 13:00 90 20 157/65 (95) 99 Mechanical Ventilator 21.00 02/05/18 12:57 154/64 02/05/18 12:40 Mechanical Ventilator 21 02/05/18 12:32 83 20 98 21 02/05/18 12:00 81 20 140/60 (86) 98 Mechanical Ventilator 21.00 02/05/18 11:00 82 19 143/61 (88) 98 Mechanical Ventilator 21.00 02/05/18 10:23 82 20 98 21 02/05/18 10:00 80 19 159/70 (99) 98 Mechanical Ventilator 21.00 02/05/18 09:00 80 19 157/71 (99) 99 Mechanical Ventilator 21.00 02/05/18 08:31 98.4 Mechanical Ventilator 21.00 02/05/18 08:31 Mechanical Ventilator 21 02/05/18 08:17 84 20 100 21 02/05/18 08:00 83 20 149/68 (95) 99 Mechanical Ventilator 21.00 I & O 02/06/18 07:00 Intake Total 4281 ml Output Total 2680 ml Balance 1601 ml Capillary Refill : Less Than 3 Seconds General Appearance: No Apparent Distress, WD/WN Respiratory: No Accessory Muscle Use, No Respiratory Distress Cardiovascular: Regular Rate, Rhythm, No Murmur Gastrointestinal: non tender, soft Results Lab Laboratory Tests 02/06/18 03:55 Laboratory Tests 02/05/18 08:23: Glucometer 254H 02/05/18 08:40: Triglycerides Level 113 02/05/18 13:01: Glucometer 253H 02/05/18 16:12: Glucometer 282H 02/05/18 20:59: Glucometer 330H 02/06/18 01:07: Glucometer 314H 02/06/18 03:46: Glucometer 299H 02/06/18 03:55: White Blood Count 10.6, Red Blood Count 2.80L, Hemoglobin 7.9L, Hematocrit 24L, Mean Corpuscular Volume 87, Mean Corpuscular Hemoglobin 28, Mean Corpuscular Hemoglobin Concent 32, Red Cell Distribution Width 12.9, Platelet Count 251, Mean Platelet Volume 10.2, Neutrophils (%) (Auto) 91H, Lymphocytes (%) (Auto) 4L , Monocytes (%) (Auto) 5, Eosinophils (%) (Auto) 0, Basophils (%) (Auto) 0, Neutrophils # (Auto) 9.6H, Lymphocytes # (Auto) 0.4L, Monocytes # (Auto) 0.5, Eosinophils # (Auto) 0.0, Basophils # (Auto) 0.0, Blood Gas Puncture Site LEFT RADIAL, Blood Gas Patient Temperature 98.3, Arterial Blood pH 7.39, Arterial Blood Partial Pressure CO2 44, Arterial Blood Partial Pressure O2 83, Arterial Blood HCO3 26, Arterial Blood Total CO2 27.8, Arterial Blood Oxygen Saturation 98, Arterial Blood Base Excess 2.0, Jem Test YES-POS, Blood Gas Ventilator Setting YES, Blood Gas Inspired Oxygen 30%, Sodium Level 142, Potassium Level 4.1, Chloride Level 107, Carbon Dioxide Level 25, Anion Gap 10, Blood Urea Nitrogen 90H, Creatinine 2.08H, Estimat Glomerular Filtration Rate 34, BUN/ Creatinine Ratio 43, Glucose Level 326H, Calcium Level 7.9L, Phosphorus Level 5.1H, Magnesium Level 3.6H, B-Type Natriuretic Peptide 776.8H Microbiology 02/03/18 Blood Culture - Preliminary, Resulted No growth 01/31/18 Genital Culture - Final, Complete No growth 02/03/18 Gram Stain - Final, Complete 02/03/18 Sputum Culture - Final, Complete Usual upper respiratory harini 01/31/18 Urine Culture - Final, Complete NO GROWTH Assessment/Plan Assessment/Plan Assess & Plan/Chief Complaint Mild opacity. Cervical surgery. Diabetes. Coronary artery disease. Diabetic retinopathy. . 02/01/18. Myelopathy. Diabetes. Hyperkalemia. Coronary artery disease. Diabetes. Diabetic neuropathy. Confusion yesterday. Weakness yesterday. Failure 02/02/18. Myelopathy. Diabetes. Hypokalemia. Febrile. Leukocytosis. Renal insufficiency. Confusion at times.. . 02/03/18 myelopathy. Diabetes. Respiratory failure. Non-ST elevated IN. Congestive heart failure. Renal insufficiency. Patient on ventilator. Patient anemic.. . 02/06/18. Patient on ventilator. Respiratory failure. Acute respiratory failure. Spinal stenosis stat post C3 to C7. Acute and chronic renal failure. Coronary artery disease. Diabetes. Hypertension. Hyperlipidemia Clinical Quality Measures DVT/VTE Risk/Contraindication: Risk Factor Score Per Nursin RFS Level Per Nursing on Admit: 2=Moderate MARIIA SIM DO Feb 06, 2018 07:34
[2018-02-06] MEDS: PANTOPRAZOLE 40 MG (PROTONIX) VIAL IV SCH (07:45)
[2018-02-06] MEDS: SENNOSIDES 8.6 MG (SENOKOT) TAB PO SCH ×2 (07:46→21:00)
[2018-02-06] MEDS: amLODIPine 10 MG (NORVASC) TAB PO SCH (07:46)
[2018-02-06] MEDS: meTOprolol TARTRATE 50 MG (LOPRESSOR) TAB PO SCH ×2 (07:46→21:00)
[2018-02-06] MEDS: CLOPIDOGREL 75 MG (PLAVIX) TABLET PO SCH (07:46)
--- NOTE | 2018-02-06 07:46 | Diagnostic Imaging Report ---
INDICATION: Dyspnea. COMPARISON: 02/05/2018 FINDINGS: Single frontal radiographic view of the chest was obtained and demonstrates indwelling endotracheal tube with tip at the clavicular heads. Gastric tube is noted, the tip is obscured. Cardiac silhouette continues to show moderate enlargement as well as moderate prominence of pulmonary vasculature. Lungs continue to show low inspiratory volumes with probable bibasilar effusions and associated bibasilar airspace disease, left greater than right. Overall, aeration has not significantly changed when compared to prior exam. There is no pneumothorax. Right upper extremity PICC line is seen with tip in the SVC. Bony structures show no gross acute abnormalities. IMPRESSION: 1. Lines and tubes as above. 2. Persistent cardiomegaly with pulmonary vascular congestion and bilateral pleural effusions. Dictated by: Dictated on workstation # [id number]
[2018-02-06] MEDS: ASPIRIN 81 MG CHEW (CHILDREN'S ASA) PO SCH (07:47)
--- NOTE | 2018-02-06 08:23 | Cardiology Progress Note ---
Subjective Date Seen by Provider: Feb 06, 2018 Time Seen by Provider: 08:18 Subjective/Events-last exam Patient is in bed, open eyes and moving his head, unable to provide history. events over the weekend reviewed Review of Systems General: Other (Unable to provide review of systems due to current condition) Focused Exam Lactate Level 02/04/18 06:25: Lactic Acid Level 1.68 02/04/18 12:24: Lactic Acid Level 1.36 Objective-Cardiology Exam Last Set of Vital Signs Vital Signs 02/06/18 02/06/18 07:56 08:01 Temp 98.7 Pulse 96 Resp 10 B/P (MAP) 170/65 (100) Pulse Ox 93 O2 Delivery Mechanical Ventilator O2 Flow Rate 30.00 FiO2 30 Capillary Refill : Less Than 3 Seconds I&O Intake and Output 02/06/18 00:00 Intake Total 2027 ml Output Total 3240 ml Balance -1213 ml Intake Oral 0 ml IV Total 2027 ml Output Urine Total 2965 ml Gastric Drainage Total 275 ml General: Moderate Distress HEENT: Atraumatic, PERRLA Neck: Supple, No JVD, No Thyromegaly Lungs: Normal Air Movement, Other (bilateral rhonchi) Heart: Regular Rate, Normal S1, Normal S2, No Murmurs Abdomen: Normal Bowel Sounds, Soft, No Tenderness, No Hepatosplenomegaly, No Masses Extremities: No Clubbing, No Cyanosis, Normal Pulses, No Tenderness/Swelling Skin: No Rashes, No Breakdown, No Significant Lesion Neuro: Other (Intubated, opening his eyes) Results Lab Laboratory Tests 02/06/18 03:55 A/P-Cardiology Admission Diagnosis Acute respiratory failure Acute renal failure Coronary artery disease Spinal stenosis Assessment/Plan Acute respiratory failure, difficult intubation required multiple attempts, currently ventilator dependent and planning to be weaned off today, managed by Dr. Gao Pulmonary infiltrate, receiving antibiotic coverage. Acute on chronic renal failure, improving slowly. Continue to monitor renal function Electrolyte imbalance with hypomagnesemia, hypophosphatemia and hyperkalemia. Discontinue multivitamin and M-mode OM. Receiving IV fluid. Anemia, worsening. Monitor H&H, started on aspirin and Plavix over the weekend. Patient had chest pain initially during recovery from surgery, EKG and cardiac enzymes did not show any acute abnormality. Currently troponin is elevated probably secondary to prolonged hypoxemia. Underlying coronary artery disease cannot be entirely excluded. Spinal stenosis, status post C3-7 ACDF with C5 corpectomy done by Dr. Hardwick on January 30, 2018. Coronary artery disease, history of cardiac catheterization done by Dr. Longoria which showed mild nonobstructive disease repeat cardiac catheterization done in 2017 showing severe stenosis in the mid LAD successful stenting using Alpine 3.0 18 mm stent expanded to 3.25 mm with good results, mild to moderate disease in the proximal portion of the LAD, moderate disease in the distal circumflex artery, DAPT was restarted. Monitor for any sign of bleeding. Carotid artery stenosis-mild nonobstructive disease per carotid duplex done July 2017, continue to monitor Diabetes mellitus, managed by Dr. Younger. Diabetic neuropathy, followed and managed by Dr. Younger. Hypertension, currently cannot take oral medication, no NG tube. Monitor blood pressure and will use IV beta blockers as needed Hyperlipidemia, intolerant to Lipitor with severe diarrhea, continue to monitor for now History of erectile dysfunction, most likely secondary to peripheral neuropathy. Lower extremity pain, likely secondary to neuropathy, patient underwent peripheral angiogram done February 09, 2016 revealing mild to moderate disease in the anterior tibial of the left lower extremity and posterior tibial at 60-70 percent. Anterior tibial with good flow down to the ankle on the left lower extremity, otherwise mild disease in the right lower extremity and abdominal aorta. Continue maximizing medical therapy Clinical Quality Measures DVT/VTE Risk/Contraindication: Risk Factor Score Per Nursin RFS Level Per Nursing on Admit: 2=Moderate AKREN YANG MD Feb 06, 2018 08:23
[2018-02-06 08:38] LABS: ABG BASE EXCESS 2.5 MMOL/L (-2.5-2.5); ABG OXYGEN SATURATION 94 % (94-100); ABG PCO2 47 MMHG (35-45); ABG PH 7.38 (7.37-7.43); ABG PO2 64 MMHG (79-93); ABG TCO2 28.6 MMOL/L (21.0-31.0); ALLENS TEST POSITIVE; INSPIRED O2 30%; PATIENT TEMP 98.7; VENTILATOR YES
--- NOTE | 2018-02-06 08:39 | Occ Therapy Progress Note ---
Therapy Progress Note Pt. continues to be on vent. Will continue to monitor and assess pt. when off ventilator support. [id number] RICHARD LING OT Feb 06, 2018 08:39
--- NOTE | 2018-02-06 10:07 | Physical Therapy Progress Note ---
Therapy Progress Note Patient currently on mechanical vent. PT will continue to monitor patient status. MARK RAMIREZ PT Feb 06, 2018 10:07
[2018-02-06] MEDS ORDERED: meTOprolol 5 MG/5 ML (LOPRESSOR) VIAL IV ONE ×2 (13:00→15:00)
--- NOTE | 2018-02-06 14:09 | Physical Therapy Progress Note ---
Therapy Progress Note Patient continues to be extremely confused and unable to follow simple direction. RN is aware of patient's state. Currently patient is unsafe for skilled therapy intervention. Will attempt in a.m. 1 visit (1431) MARK RAMIREZ PT Feb 06, 2018 14:09
[2018-02-06] MEDS ORDERED: PROMETHAZINE INJ 25 MG/ML (PHENERGAN) AMP IVP PRN (15:00)
[2018-02-06] MEDS ORDERED: LORazepam INJ 2 MG/ML (ATIVAN) VIAL ONE ×2 (16:47→20:33)
[2018-02-06] MEDS: morphine INJ 4 MG/ML 1 ML (VIAL/SYRINGE) IVP PRN ×2 (16:55→22:08)
[2018-02-06] MEDS ORDERED: LORazepam INJ 2 MG/ML (ATIVAN) VIAL IVP NR (17:00)
[2018-02-06] MEDS ORDERED: LORazepam INJ 2 MG/ML (ATIVAN) VIAL IVP ONE (17:00)
[2018-02-06] MEDS: LORATADINE (CLARITIN) 10 MG TAB PO SCH (17:20)
[2018-02-06] MEDS: GLIMEPIRIDE 2 MG (AMARYL) TAB PO SCH (17:20)
--- NOTE | 2018-02-06 17:47 | Progress Note (SOAP) ---
Subjective Date Seen by Provider: Feb 06, 2018 Time Seen by Provider: 17:44 Subjective/Events-last exam GAGE. Sedated heavily due to some combativeness earlier. Per nurse patient was obeying commands and moving all extremities earlier today. Hypertension continues to be the primary issue at this point. Focused Exam Lactate Level 02/04/18 06:25: Lactic Acid Level 1.68 02/04/18 12:24: Lactic Acid Level 1.36 Objective Exam Vital Signs Date Time Temp Pulse Resp B/P (MAP) Pulse Ox O2 Delivery O2 Flow Rate FiO2 02/06/18 17:19 93 High Flow N/C 4.00 02/06/18 16:00 97 High Flow N/C 2.00 02/06/18 15:00 97.1 76 12 181/91 (121) 95 High Flow N/C 2.00 02/06/18 14:09 76 12 162/95 (117) 98 High Flow N/C 2.00 02/06/18 14:07 96 Nasal Cannula 4.00 02/06/18 13:00 85 02/06/18 13:00 85 15 189/98 (128) 97 High Flow N/C 4.00 02/06/18 12:00 97.1 81 10 183/104 (130) 97 High Flow N/C 4.00 02/06/18 11:46 97 High Flow N/C 4.00 02/06/18 11:43 97.1 80 12 97 High Flow N/C 4.00 02/06/18 11:14 96 Nasal Cannula 6.00 02/06/18 11:00 89 24 158/86 (110) 98 High Flow N/C 6.00 02/06/18 10:26 174/97 (122) 02/06/18 10:08 95 10 156/64 (94) 97 High Flow N/C 6.00 02/06/18 09:26 90 High Flow N/C 8.00 02/06/18 09:00 92 10 155/59 (91) 91 Mechanical Ventilator 30.00 02/06/18 08:26 151/58 (89) 02/06/18 08:01 98.7 96 10 170/65 (100) 93 Mechanical Ventilator 30.00 02/06/18 08:00 93 Mechanical Ventilator 30 02/06/18 07:56 96 12 93 30 02/06/18 07:27 98.9 82 19 150/57 96 Mechanical Ventilator 30.00 02/06/18 07:00 84 02/06/18 07:00 84 19 151/57 (88) 95 Mechanical Ventilator 30.00 02/06/18 06:45 82 19 150/57 (88) 96 Mechanical Ventilator 30.00 02/06/18 06:36 82 20 96 30 02/06/18 06:30 82 19 148/57 (87) 96 Mechanical Ventilator 30.00 02/06/18 06:15 83 19 153/57 (89) 96 Mechanical Ventilator 30.00 02/06/18 06:00 86 20 151/61 (91) 96 Mechanical Ventilator 30.00 02/06/18 05:45 85 19 151/57 (88) 96 Mechanical Ventilator 30.00 02/06/18 05:30 87 20 149/58 (88) 95 Mechanical Ventilator 30.00 02/06/18 05:15 88 16 156/65 (95) 96 Mechanical Ventilator 30.00 02/06/18 05:01 88 02/06/18 05:00 87 19 137/55 (82) 96 Mechanical Ventilator 30.00 02/06/18 05:00 87 20 97 02/06/18 04:45 88 19 145/56 (85) 95 Mechanical Ventilator 30.00 02/06/18 04:30 89 20 153/58 (89) 95 Mechanical Ventilator 30.00 02/06/18 04:15 90 19 153/60 (91) 95 Mechanical Ventilator 30.00 02/06/18 04:13 96 20 96 30 02/06/18 04:10 96 14 96 30 02/06/18 04:00 89 20 152/63 (92) 95 Mechanical Ventilator 30.00 02/06/18 04:00 94 Mechanical Ventilator 30.00 02/06/18 03:45 88 20 153/58 (89) 95 Mechanical Ventilator 30.00 02/06/18 03:30 86 20 152/56 (88) 95 Mechanical Ventilator 30.00 02/06/18 03:15 87 20 150/56 (87) 95 Mechanical Ventilator 30.00 02/06/18 03:00 88 20 151/57 (88) 95 Mechanical Ventilator 30.00 02/06/18 02:45 88 20 152/57 (88) 95 Mechanical Ventilator 30.00 02/06/18 02:30 90 19 164/61 (95) 96 Mechanical Ventilator 30.00 02/06/18 02:23 89 20 96 30 02/06/18 02:18 98.9 91 20 160/62 94 Mechanical Ventilator 30.00 02/06/18 02:15 90 19 162/57 (92) 96 Mechanical Ventilator 30.00 02/06/18 02:00 90 19 160/57 (91) 96 Mechanical Ventilator 30.00 02/06/18 01:45 86 19 134/55 (81) 96 Mechanical Ventilator 30.00 02/06/18 01:30 90 20 135/55 (81) 95 Mechanical Ventilator 30.00 02/06/18 01:15 91 19 136/55 (82) 95 Mechanical Ventilator 30.00 02/06/18 01:00 91 02/06/18 01:00 91 19 129/55 (79) 95 Mechanical Ventilator 30.00 02/06/18 00:45 92 20 145/58 (87) 95 Mechanical Ventilator 30.00 02/06/18 00:30 94 19 150/62 (91) 93 Mechanical Ventilator 30.00 02/06/18 00:15 95 17 145/59 (87) 96 Mechanical Ventilator 30.00 02/06/18 00:00 93 20 160/62 (94) 94 Mechanical Ventilator 30.00 02/06/18 00:00 94 Mechanical Ventilator 30.00 02/05/18 23:46 98.9 93 19 138/55 95 Mechanical Ventilator 30.00 02/05/18 23:45 98 19 163/63 (96) 96 Mechanical Ventilator 30.00 02/05/18 23:30 93 20 139/57 (84) 95 Mechanical Ventilator 30.00 02/05/18 23:15 93 19 138/55 (82) 95 Mechanical Ventilator 30.00 02/05/18 23:00 94 19 142/57 (85) 95 Mechanical Ventilator 30.00 02/05/18 22:45 92 19 138/56 (83) 94 Mechanical Ventilator 30.00 02/05/18 22:30 92 20 137/56 (83) 94 Mechanical Ventilator 30.00 02/05/18 22:15 93 20 139/58 (85) 96 Mechanical Ventilator 30.00 02/05/18 22:00 94 19 138/58 (84) 95 Mechanical Ventilator 30.00 8/26/18 21:45 96 20 143/58 (86) 96 Mechanical Ventilator 30.00 02/05/18 21:30 98 19 151/61 (91) 95 Mechanical Ventilator 30.00 02/05/18 21:26 100 02/05/18 21:15 102 17 146/60 (88) 95 Mechanical Ventilator 30.00 02/05/18 21:12 102 23 95 30 02/05/18 21:00 101 17 140/58 (85) 94 Mechanical Ventilator 30.00 02/05/18 20:45 101 16 132/56 (81) 93 Mechanical Ventilator 30.00 02/05/18 20:30 101 19 131/54 (79) 93 Mechanical Ventilator 30.00 02/05/18 20:15 101 17 127/52 (77) 92 Mechanical Ventilator 30.00 02/05/18 20:00 94 Mechanical Ventilator 30.00 02/05/18 20:00 102 19 137/56 (83) 92 Mechanical Ventilator 30.00 02/05/18 19:45 102 16 134/57 (82) 92 Mechanical Ventilator 30.00 02/05/18 19:30 101 15 132/56 (81) 92 Mechanical Ventilator 30.00 02/05/18 19:15 100 12 133/56 (81) 93 Mechanical Ventilator 30.00 02/05/18 19:00 98 19 139/57 (84) 94 Mechanical Ventilator 30.00 02/05/18 19:00 98 02/05/18 18:51 99 20 94 30 02/05/18 18:35 152/62 02/05/18 18:00 98 17 123/54 (77) 95 Mechanical Ventilator 30.00 I & O 02/06/18 07:00 Intake Total 4281 ml Output Total 2680 ml Balance 1601 ml Capillary Refill : Less Than 3 Seconds General Appearance: No Apparent Distress Extremity: Other (exam limited due to sedation, wound is CDI, drain has been removed) Results Lab Laboratory Tests 02/05/18 20:59: Glucometer 330H 02/06/18 01:07: Glucometer 314H 02/06/18 03:46: Glucometer 299H 02/06/18 03:55: White Blood Count 10.6, Red Blood Count 2.80L, Hemoglobin 7.9L, Hematocrit 24L, Mean Corpuscular Volume 87, Mean Corpuscular Hemoglobin 28, Mean Corpuscular Hemoglobin Concent 32, Red Cell Distribution Width 12.9, Platelet Count 251, Mean Platelet Volume 10.2, Neutrophils (%) (Auto) 91H, Lymphocytes (%) (Auto) 4L , Monocytes (%) (Auto) 5, Eosinophils (%) (Auto) 0, Basophils (%) (Auto) 0, Neutrophils # (Auto) 9.6H, Lymphocytes # (Auto) 0.4L, Monocytes # (Auto) 0.5, Eosinophils # (Auto) 0.0, Basophils # (Auto) 0.0, Blood Gas Puncture Site LEFT RADIAL, Blood Gas Patient Temperature 98.3, Arterial Blood pH 7.39, Arterial Blood Partial Pressure CO2 44, Arterial Blood Partial Pressure O2 83, Arterial Blood HCO3 26, Arterial Blood Total CO2 27.8, Arterial Blood Oxygen Saturation 98, Arterial Blood Base Excess 2.0, Jem Test YES-POS, Blood Gas Ventilator Setting YES, Blood Gas Inspired Oxygen 30%, Sodium Level 142, Potassium Level 4.1, Chloride Level 107, Carbon Dioxide Level 25, Anion Gap 10, Blood Urea Nitrogen 90H, Creatinine 2.08H, Estimat Glomerular Filtration Rate 34, BUN/ Creatinine Ratio 43, Glucose Level 326H, Calcium Level 7.9L, Phosphorus Level 5.1H, Magnesium Level 3.6H, B-Type Natriuretic Peptide 776.8H 02/06/18 07:49: Glucometer 271H 02/06/18 08:25: Blood Gas Puncture Site L RADIAL, Blood Gas Patient Temperature 98.7, Arterial Blood pH 7.38, Arterial Blood Partial Pressure CO2 47H, Arterial Blood Partial Pressure O2 64L, Arterial Blood HCO3 27, Arterial Blood Total CO2 28.6, Arterial Blood Oxygen Saturation 94, Arterial Blood Base Excess 2.5, Jem Test POSITIVE, Blood Gas Ventilator Setting YES, Blood Gas Inspired Oxygen 30% 02/06/18 11:37: Glucometer 219H 02/06/18 16:56: Glucometer 118H Microbiology 02/03/18 Blood Culture - Preliminary, Resulted No growth 01/31/18 Genital Culture - Final, Complete No growth 02/06/18 Gram Stain - Final, Resulted 02/06/18 Bronchial Culture - Preliminary, Resulted Sent To [facility] 02/06/18 Fungal Culture 1, Resulted Pending 01/31/18 Urine Culture - Final, Complete NO GROWTH Assessment/Plan Assessment/Plan Assess & Plan/Chief Complaint ASSESSMENT: s/p cervical corpectomy renal failure HTN PLAN: continue supportive care brace only when OOB SCD DVT prophy d/c planning for SNF Final Diagnosis cervical myelopathy Clinical Quality Measures DVT/VTE Risk/Contraindication: Risk Factor Score Per Nursin RFS Level Per Nursing on Admit: 2=Moderate CHRIS GENAO DO Feb 06, 2018 17:47
[2018-02-06] MEDS: meTOprolol 5 MG/5 ML (LOPRESSOR) VIAL IV SCH (18:13)
[2018-02-06] MEDS: NITRO DRIP 25000 MCG/D5W 250 ML IV SCH (20:10)
[2018-02-06] MEDS: ROSUVASTATIN 5 MG (CRESTOR) TABLET PO SCH (21:00)
[2018-02-07] VITALS (60 sets, daily range): BP systolic 135–190; BP diastolic 71–104
[2018-02-07] MEDS: NOVOLOG SC SCH ×7 (00:46→23:51)
[2018-02-07] MEDS: meTOprolol 5 MG/5 ML (LOPRESSOR) VIAL IV SCH ×2 (00:46→06:41)
[2018-02-07] MEDS: HUMALOG SC SCH ×7 (00:46→23:51)
[2018-02-07] MEDS: methylPREDNISolone 40 MG/ML (Solu-MEDROL) VIAL IV SCH (00:46)
[2018-02-07] MEDS: PIPERACILLIN SODIUM/TAZOBACTAM 4.5 GM in D5W 100 ML IVPB 100 ML IV SCH ×4 (00:50→23:49)
[2018-02-07] MEDS ORDERED: NS (IVPB) 50 ML ONE (00:56)
[2018-02-07] MEDS ORDERED: LORazepam INJ 2 MG/ML (ATIVAN) VIAL IVP ONE (01:00)
[2018-02-07] MEDS: DEXMEDETOMIDINE INJECTION 200 MCG in NS (IVPB) 50 ML IV SCH ×4 (01:00→09:35)
[2018-02-07] MEDS: morphine INJ 4 MG/ML 1 ML (VIAL/SYRINGE) IVP PRN ×2 (02:48→11:20)
[2018-02-07] MEDS: RT-ALBUTEROL/IPRATROPIUM 3 ML (DUONEB) VIAL INH SCH ×6 (03:06→21:45)
[2018-02-07 03:41] LABS: BASOPHILS % (AUTO) 0 % (0-10); EOSINOPHILS % (AUTO) 0 % (0-10); HEMATOCRIT 25 % (40-54); HEMOGLOBIN 8.4 G/DL (13.3-17.7); LYMPHOCYTES # (AUTO) 0.9 X 10^3 (1.0-4.0); LYMPHOCYTES % (AUTO) 5 % (12-44); MEAN CORPUSCULAR HEMOGLOBIN 29 PG (25-34); MEAN CORPUSCULAR HGB CONC 33 G/DL (32-36); MEAN CORPUSCULAR VOLUME 88 FL (80-99); MEAN PLATELET VOLUME 10.5 FL (7.4-10.4); MONOCYTES # (AUTO) 0.6 X 10^3 (0.0-1.0); MONOCYTES % (AUTO) 4 % (0-12); NEUTROPHILS # (AUTO) 15.2 X 10^3 (1.8-7.8); NEUTROPHILS % (AUTO) 91 % (42-75); PLATELET COUNT 259 10^3/uL (130-400); RED BLOOD COUNT 2.87 10^6/uL (4.35-5.85); WHITE BLOOD COUNT 16.7 10^3/uL (4.3-11.0)
[2018-02-07 03:59] LABS: CREATININE SERUM 1.76 MG/DL (0.60-1.30); POTASSIUM 4.4 MMOL/L (3.6-5.0)
[2018-02-07 04:00] LABS: CALCIUM 8.2 MG/DL (8.5-10.1); MAGNESIUM 3.8 MG/DL (1.8-2.4); PHOSPHORUS 4.9 MG/DL (2.3-4.7)
[2018-02-07] MEDS: MAGNESIUM 1 GM/100 ML IVPB 100 ML IV SCH (05:37)
[2018-02-07] MEDS: KCL 20 MEQ TAB (K-DUR) PO SCH (05:37)
[2018-02-07] MEDS: POTASSIUM CL 10MEQ/50ML IVPB 50 ML IV SCH (05:37)
--- NOTE | 2018-02-07 06:25 | Pulmonary Progress Note ---
Subjective Time Seen by Provider: 06:39 Subjective/Events-last exam PT combative during the night. Currently very sedated. Sepsis Event Evaluation Height, Weight, BMI Height: 5'11.00" Weight: 288lbs. 0.0oz. 130.325576aj; 40.2 BMI Method:Stated Focused Exam Lactate Level 02/04/18 06:25: Lactic Acid Level 1.68 02/04/18 12:24: Lactic Acid Level 1.36 Exam Exam Vital Signs Date Time Temp Pulse Resp B/P (MAP) Pulse Ox O2 Delivery O2 Flow Rate FiO2 02/07/18 06:00 71 7 156/96 (116) 96 NIV CPAP 3.00 02/07/18 05:45 71 6 162/97 (118) 95 NIV CPAP 3.00 02/07/18 05:30 71 7 156/97 (116) 95 NIV CPAP 3.00 02/07/18 05:15 72 8 161/93 (115) 94 NIV CPAP 3.00 02/07/18 05:00 73 7 162/94 (116) 95 NIV CPAP 3.00 02/07/18 04:45 73 6 167/101 (123) 95 NIV CPAP 3.00 02/07/18 04:30 75 8 157/91 (113) 94 NIV CPAP 3.00 02/07/18 04:15 75 18 159/94 (115) 94 NIV CPAP 3.00 02/07/18 04:00 96 NIV CPAP 3.00 02/07/18 04:00 75 7 157/93 (114) 92 NIV CPAP 3.00 02/07/18 03:56 97.9 02/07/18 03:45 74 10 149/92 (111) 92 NIV CPAP 3.00 02/07/18 03:30 79 11 156/92 (113) 91 NIV CPAP 3.00 02/07/18 03:15 78 9 157/92 (113) 92 NIV CPAP 3.00 02/07/18 03:06 92 Nasal Cannula 3.00 02/07/18 03:00 78 23 169/91 (117) 94 NIV CPAP 3.00 02/07/18 02:45 82 17 173/101 (125) 96 NIV CPAP 3.00 02/07/18 02:30 93 190/102 (131) 97 NIV CPAP 3.00 02/07/18 02:15 94 26 177/98 (124) 96 NIV CPAP 3.00 02/07/18 02:00 93 10 172/100 (124) 92 NIV CPAP 3.00 02/07/18 01:45 81 13 163/95 (117) 94 NIV CPAP 3.00 02/07/18 01:30 81 16 170/100 (123) 92 NIV CPAP 3.00 02/07/18 01:15 81 9 169/102 (124) 95 NIV CPAP 3.00 02/07/18 01:00 87 15 172/98 (122) 89 NIV CPAP 3.00 02/07/18 01:00 89 02/07/18 00:45 96 18 168/95 (119) 95 NIV CPAP 3.00 02/07/18 00:30 89 11 166/103 (124) 94 NIV CPAP 3.00 02/07/18 00:15 89 33 174/98 (123) 93 NIV CPAP 3.00 02/07/18 00:00 96 NIV CPAP 3.00 02/07/18 00:00 97.3 02/07/18 00:00 94 9 183/98 (126) 94 NIV CPAP 3.00 02/06/18 23:45 92 15 184/94 (124) 94 NIV CPAP 3.00 02/06/18 23:30 90 6 168/95 (119) 94 NIV CPAP 3.00 02/06/18 23:15 92 10 155/84 (107) 97 NIV CPAP 3.00 02/06/18 23:00 86 8 167/94 (118) 95 NIV CPAP 3.00 02/06/18 22:45 86 7 161/88 (112) 96 NIV CPAP 3.00 02/06/18 22:30 87 8 168/84 (112) 94 NIV CPAP 3.00 02/06/18 22:15 85 10 171/87 (115) 96 NIV CPAP 3.00 02/06/18 22:05 95 Nasal Cannula 3.00 02/06/18 22:00 97 12 181/134 (150) 97 NIV CPAP 3.00 02/06/18 21:45 92 33 165/107 (126) 99 NIV CPAP 3.00 02/06/18 21:30 81 18 172/102 (125) 96 NIV CPAP 3.00 02/06/18 21:15 83 14 178/110 (132) 95 NIV CPAP 3.00 02/06/18 21:00 87 18 165/94 (117) 94 NIV CPAP 3.00 02/06/18 20:45 83 7 171/110 (130) 94 NIV CPAP 3.00 02/06/18 20:30 87 15 187/110 (135) 97 NIV CPAP 3.00 02/06/18 20:15 81 11 198/71 (113) 96 NIV CPAP 3.00 02/06/18 20:10 84 181/102 02/06/18 20:00 96 NIV CPAP 3.00 02/06/18 20:00 81 11 198/71 (113) 96 NIV CPAP 3.00 02/06/18 20:00 97.4 02/06/18 19:30 190/104 (132) NIV CPAP 3.00 02/06/18 19:00 78 02/06/18 19:00 78 8 191/102 (131) 91 NIV CPAP 3.00 02/06/18 18:45 NIV CPAP 3.00 02/06/18 18:33 97 Nasal Cannula 2.00 02/06/18 18:00 78 8 185/105 (131) 96 High Flow N/C 4.00 02/06/18 17:30 79 9 177/103 (127) 96 High Flow N/C 4.00 02/06/18 17:19 93 High Flow N/C 4.00 02/06/18 17:15 79 10 175/111 (132) 88 High Flow N/C 2.00 02/06/18 17:00 87 183/109 (133) 94 High Flow N/C 2.00 02/06/18 16:00 80 24 176/91 (119) High Flow N/C 2.00 02/06/18 16:00 97 High Flow N/C 2.00 02/06/18 15:00 97.1 76 12 181/91 (121) 95 High Flow N/C 2.00 02/06/18 14:09 76 12 162/95 (117) 98 High Flow N/C 2.00 02/06/18 14:07 96 Nasal Cannula 4.00 02/06/18 13:00 85 02/06/18 13:00 85 15 189/98 (128) 97 High Flow N/C 4.00 02/06/18 12:00 97.1 81 10 183/104 (130) 97 High Flow N/C 4.00 02/06/18 11:46 97 High Flow N/C 4.00 02/06/18 11:43 97.1 80 12 97 High Flow N/C 4.00 02/06/18 11:14 96 Nasal Cannula 6.00 02/06/18 11:00 89 24 158/86 (110) 98 High Flow N/C 6.00 02/06/18 10:26 174/97 (122) 02/06/18 10:08 95 10 156/64 (94) 97 High Flow N/C 6.00 02/06/18 09:26 90 High Flow N/C 8.00 02/06/18 09:00 92 10 155/59 (91) 91 Mechanical Ventilator 30.00 02/06/18 08:26 151/58 (89) 02/06/18 08:01 98.7 96 10 170/65 (100) 93 Mechanical Ventilator 30.00 02/06/18 08:00 93 Mechanical Ventilator 30 02/06/18 07:56 96 12 93 30 02/06/18 07:27 98.9 82 19 150/57 96 Mechanical Ventilator 30.00 02/06/18 07:00 84 02/06/18 07:00 84 19 151/57 (88) 95 Mechanical Ventilator 30.00 02/06/18 06:45 82 19 150/57 (88) 96 Mechanical Ventilator 30.00 02/06/18 06:36 82 20 96 30 02/06/18 06:30 82 19 148/57 (87) 96 Mechanical Ventilator 30.00 I & O 02/07/18 07:00 Intake Total 100 ml Output Total 3150 ml Balance -3050 ml Height & Weight Height: 5'11.00" Weight: 288lbs. 0.0oz. 130.926366gr; 40.2 BMI Method:Stated General Appearance: Mild Distress (sedated will awake with stimulation) HEENT: PERRL/EOMI, Pharynx Normal Neck: No JVD; Other (incison dressing clean and dry) Respiratory: Accessory Muscle Use, Decreased Breath Sounds Cardiovascular: Regular Rate, Rhythm, No Murmur Capillary Refill: Less Than 3 Seconds Gastrointestinal: non tender, soft Extremity: Other (exam limited due to sedation, wound is CDI, drain has been removed) Neurologic/Psychiatric: Other (intubated and sedated) Skin: Normal Color, Warm/Dry, Other (Trachea midline, no incision site swelling , Incision CDI) Lymphatic: No Adenopathy Results Lab Laboratory Tests 02/06/18 03:55 02/07/18 03:30 Assessment/Plan Assessment/Plan HX of cervical stenosis S/P C3-7 ACDF with C5 corpectomy Acute respiratory failure/distress -Pt is off ventilator -Repeat ABG. PT is very sedated currently -Consult speech for swallow eval Hypernatremia -Change IVF to D5W Psychosis/metabolic encephalopathy - Pt was combative all throughout the night -D/C solumedrol -Precedex gtt -Start PRN Haldol and scheduled risperadol -PRN Morphine HTN -currently on nitrogtt -ONce pt is able to take PO meds will start PO antihypertensives Hypermag, Hyperphos -D/C multivitamin and MOM GABRIELLA -ON home CPAP. May need to be placed on hospital BIPAP secondary to sedation -Check ABG Leukocytosis - partially secondary to solumedrol UTI with sepsis and urinary retention - Zosyn (MRSA swab is negative) -repeat Manjarrez cultures - pending CKD with hyperkalemia and metabolic acidosis -D/C Bicarb gtt -continue to monitor Anemia - monitor JORGE GONZALEZ DO Feb 07, 2018 06:25
[2018-02-07] MEDS ORDERED: HALOPERIDOL 5 MG/ML (HALDOL) AMP IM PRN (06:30)
[2018-02-07 06:51] LABS: ABG BASE EXCESS 3.4 MMOL/L (-2.5-2.5); ABG OXYGEN SATURATION 97 % (94-100); ABG PCO2 45 MMHG (35-45); ABG PH 7.41 (7.37-7.43); ABG PO2 68 MMHG (79-93); ABG TCO2 29.3 MMOL/L (21.0-31.0)
[2018-02-07 06:55] LABS: ALLENS TEST YES-POS; INSPIRED O2 3L; PATIENT TEMP 97.7; VENTILATOR NO
[2018-02-07] MEDS: HALOPERIDOL 5 MG/ML (HALDOL) AMP IV PRN (06:55)
[2018-02-07] MEDS: GLIMEPIRIDE 4 MG (AMARYL) TAB PO SCH (07:06)
[2018-02-07] MEDS: D5W 1000 ML IV SOLUTION 1,000 ML IV SCH ×2 (07:24→18:03)
[2018-02-07] MEDS: risperiDONE 1 MG (RisperDAL) TAB PO SCH ×2 (07:24→20:29)
--- NOTE | 2018-02-07 07:28 | Progress Note (SOAP) ---
Subjective Time Seen by Provider: 07:25 Subjective/Events-last exam patient extubated yesterday. Patient agitated all night. Patient sedated. Patient lethargic this morning. Patient improving Focused Exam Lactate Level 02/04/18 12:24: Lactic Acid Level 1.36 Objective Exam Vital Signs Date Time Temp Pulse Resp B/P (MAP) Pulse Ox O2 Delivery O2 Flow Rate FiO2 02/07/18 07:00 64 160/102 (121) 96 NIV CPAP 3.00 02/07/18 06:59 97 Nasal Cannula 3.00 02/07/18 06:45 71 163/97 (119) 93 NIV CPAP 3.00 02/07/18 06:30 70 162/101 (121) 94 NIV CPAP 3.00 02/07/18 06:15 69 161/98 (119) 96 NIV CPAP 3.00 02/07/18 06:00 71 7 156/96 (116) 96 NIV CPAP 3.00 02/07/18 05:45 71 6 162/97 (118) 95 NIV CPAP 3.00 02/07/18 05:30 71 7 156/97 (116) 95 NIV CPAP 3.00 02/07/18 05:15 72 8 161/93 (115) 94 NIV CPAP 3.00 02/07/18 05:00 73 7 162/94 (116) 95 NIV CPAP 3.00 02/07/18 04:45 73 6 167/101 (123) 95 NIV CPAP 3.00 02/07/18 04:30 75 8 157/91 (113) 94 NIV CPAP 3.00 02/07/18 04:15 75 18 159/94 (115) 94 NIV CPAP 3.00 02/07/18 04:00 96 NIV CPAP 3.00 02/07/18 04:00 75 7 157/93 (114) 92 NIV CPAP 3.00 02/07/18 03:56 97.9 02/07/18 03:45 74 10 149/92 (111) 92 NIV CPAP 3.00 02/07/18 03:30 79 11 156/92 (113) 91 NIV CPAP 3.00 02/07/18 03:15 78 9 157/92 (113) 92 NIV CPAP 3.00 02/07/18 03:06 92 Nasal Cannula 3.00 02/07/18 03:00 78 23 169/91 (117) 94 NIV CPAP 3.00 02/07/18 02:45 82 17 173/101 (125) 96 NIV CPAP 3.00 02/07/18 02:30 93 190/102 (131) 97 NIV CPAP 3.00 02/07/18 02:15 94 26 177/98 (124) 96 NIV CPAP 3.00 02/07/18 02:00 93 10 172/100 (124) 92 NIV CPAP 3.00 02/07/18 01:45 81 13 163/95 (117) 94 NIV CPAP 3.00 02/07/18 01:30 81 16 170/100 (123) 92 NIV CPAP 3.00 02/07/18 01:15 81 9 169/102 (124) 95 NIV CPAP 3.00 02/07/18 01:00 87 15 172/98 (122) 89 NIV CPAP 3.00 02/07/18 01:00 89 02/07/18 00:45 96 18 168/95 (119) 95 NIV CPAP 3.00 02/07/18 00:30 89 11 166/103 (124) 94 NIV CPAP 3.00 02/07/18 00:15 89 33 174/98 (123) 93 NIV CPAP 3.00 02/07/18 00:00 96 NIV CPAP 3.00 02/07/18 00:00 97.3 02/07/18 00:00 94 9 183/98 (126) 94 NIV CPAP 3.00 02/06/18 23:45 92 15 184/94 (124) 94 NIV CPAP 3.00 02/06/18 23:30 90 6 168/95 (119) 94 NIV CPAP 3.00 02/06/18 23:15 92 10 155/84 (107) 97 NIV CPAP 3.00 02/06/18 23:00 86 8 167/94 (118) 95 NIV CPAP 3.00 02/06/18 22:45 86 7 161/88 (112) 96 NIV CPAP 3.00 02/06/18 22:30 87 8 168/84 (112) 94 NIV CPAP 3.00 02/06/18 22:15 85 10 171/87 (115) 96 NIV CPAP 3.00 02/06/18 22:05 95 Nasal Cannula 3.00 02/06/18 22:00 97 12 181/134 (150) 97 NIV CPAP 3.00 02/06/18 21:45 92 33 165/107 (126) 99 NIV CPAP 3.00 02/06/18 21:30 81 18 172/102 (125) 96 NIV CPAP 3.00 02/06/18 21:15 83 14 178/110 (132) 95 NIV CPAP 3.00 02/06/18 21:00 87 18 165/94 (117) 94 NIV CPAP 3.00 02/06/18 20:45 83 7 171/110 (130) 94 NIV CPAP 3.00 02/06/18 20:30 87 15 187/110 (135) 97 NIV CPAP 3.00 02/06/18 20:15 81 11 198/71 (113) 96 NIV CPAP 3.00 02/06/18 20:10 84 181/102 02/06/18 20:00 96 NIV CPAP 3.00 02/06/18 20:00 81 11 198/71 (113) 96 NIV CPAP 3.00 02/06/18 20:00 97.4 02/06/18 19:30 190/104 (132) NIV CPAP 3.00 02/06/18 19:00 78 02/06/18 19:00 78 8 191/102 (131) 91 NIV CPAP 3.00 02/06/18 18:45 NIV CPAP 3.00 02/06/18 18:33 97 Nasal Cannula 2.00 02/06/18 18:00 78 8 185/105 (131) 96 High Flow N/C 4.00 02/06/18 17:30 79 9 177/103 (127) 96 High Flow N/C 4.00 02/06/18 17:19 93 High Flow N/C 4.00 02/06/18 17:15 79 10 175/111 (132) 88 High Flow N/C 2.00 02/06/18 17:00 87 183/109 (133) 94 High Flow N/C 2.00 02/06/18 16:00 80 24 176/91 (119) High Flow N/C 2.00 02/06/18 16:00 97 High Flow N/C 2.00 02/06/18 15:00 97.1 76 12 181/91 (121) 95 High Flow N/C 2.00 02/06/18 14:09 76 12 162/95 (117) 98 High Flow N/C 2.00 02/06/18 14:07 96 Nasal Cannula 4.00 02/06/18 13:00 85 02/06/18 13:00 85 15 189/98 (128) 97 High Flow N/C 4.00 02/06/18 12:00 97.1 81 10 183/104 (130) 97 High Flow N/C 4.00 02/06/18 11:46 97 High Flow N/C 4.00 02/06/18 11:43 97.1 80 12 97 High Flow N/C 4.00 02/06/18 11:14 96 Nasal Cannula 6.00 02/06/18 11:00 89 24 158/86 (110) 98 High Flow N/C 6.00 02/06/18 10:26 174/97 (122) 02/06/18 10:08 95 10 156/64 (94) 97 High Flow N/C 6.00 02/06/18 09:26 90 High Flow N/C 8.00 02/06/18 09:00 92 10 155/59 (91) 91 Mechanical Ventilator 30.00 02/06/18 08:26 151/58 (89) 02/06/18 08:01 98.7 96 10 170/65 (100) 93 Mechanical Ventilator 30.00 02/06/18 08:00 93 Mechanical Ventilator 30 02/06/18 07:56 96 12 93 30 02/06/18 07:27 98.9 82 19 150/57 96 Mechanical Ventilator 30.00 I & O 02/07/18 07:00 Intake Total 152 ml Output Total 3750 ml Balance -3598 ml Capillary Refill : Less Than 3 Seconds General Appearance: No Apparent Distress, WD/WN HEENT: Normal ENT Inspection Neck: Normal Inspection Respiratory: Lungs Clear, No Accessory Muscle Use, No Respiratory Distress Cardiovascular: Regular Rate, Rhythm, No Murmur Gastrointestinal: non tender, soft Results Lab Laboratory Tests 02/07/18 03:30 Laboratory Tests 02/06/18 07:49: Glucometer 271H 02/06/18 08:25: Blood Gas Puncture Site L RADIAL, Blood Gas Patient Temperature 98.7, Arterial Blood pH 7.38, Arterial Blood Partial Pressure CO2 47H, Arterial Blood Partial Pressure O2 64L, Arterial Blood HCO3 27, Arterial Blood Total CO2 28.6, Arterial Blood Oxygen Saturation 94, Arterial Blood Base Excess 2.5, Jem Test POSITIVE, Blood Gas Ventilator Setting YES, Blood Gas Inspired Oxygen 30% 02/06/18 11:37: Glucometer 219H 02/06/18 16:56: Glucometer 118H 02/06/18 20:21: Glucometer 117H 02/07/18 00:17: Glucometer 161H 02/07/18 03:30: White Blood Count 16.7H, Red Blood Count 2.87L, Hemoglobin 8.4L, Hematocrit 25L , Mean Corpuscular Volume 88, Mean Corpuscular Hemoglobin 29, Mean Corpuscular Hemoglobin Concent 33, Red Cell Distribution Width 13.0, Platelet Count 259, Mean Platelet Volume 10.5H, Neutrophils (%) (Auto) 91H, Lymphocytes (%) (Auto) 5L, Monocytes (%) (Auto) 4, Eosinophils (%) (Auto) 0, Basophils (%) (Auto) 0, Neutrophils # (Auto) 15.2H, Lymphocytes # (Auto) 0.9L, Monocytes # (Auto) 0.6, Eosinophils # (Auto) 0.0, Basophils # (Auto) 0.0, Sodium Level 148H, Potassium Level 4.4, Chloride Level 112H, Carbon Dioxide Level 23, Anion Gap 13, Blood Urea Nitrogen 85H, Creatinine 1.76H, Estimat Glomerular Filtration Rate 41, BUN/ Creatinine Ratio 48, Glucose Level 171H, Calcium Level 8.2L, Phosphorus Level 4.9H, Magnesium Level 3.8H 02/07/18 04:13: Glucometer 163H 02/07/18 06:42: Blood Gas Puncture Site LEFT RADIAL, Blood Gas Patient Temperature 97.7, Arterial Blood pH 7.41, Arterial Blood Partial Pressure CO2 45, Arterial Blood Partial Pressure O2 68L, Arterial Blood HCO3 28H, Arterial Blood Total CO2 29.3 , Arterial Blood Oxygen Saturation 97, Arterial Blood Base Excess 3.4H, Jem Test YES-POS, Blood Gas Ventilator Setting NO, Blood Gas Inspired Oxygen 3L Microbiology 02/03/18 Blood Culture - Preliminary, Resulted No growth 01/31/18 Genital Culture - Final, Complete No growth 02/06/18 Gram Stain - Final, Resulted 02/06/18 Bronchial Culture - Preliminary, Resulted Sent To [facility] 02/06/18 Fungal Culture 1, Resulted Pending 01/31/18 Urine Culture - Final, Complete NO GROWTH Assessment/Plan Assessment/Plan Assess & Plan/Chief Complaint Mild opacity. Cervical surgery. Diabetes. Coronary artery disease. Diabetic retinopathy. . 02/01/18. Myelopathy. Diabetes. Hyperkalemia. Coronary artery disease. Diabetes. Diabetic neuropathy. Confusion yesterday. Weakness yesterday. Failure 02/02/18. Myelopathy. Diabetes. Hypokalemia. Febrile. Leukocytosis. Renal insufficiency. Confusion at times... . 02/07/18. Recent surgery for cervical stenosis. Acute respiratory failure. Hypertension. Diabetes. GABRIELLA. Leukocytosis. UTI with sepsis. ckd improving . 02/03/18 myelopathy. Diabetes. Respiratory failure. Non-ST elevated [place]. Congestive heart failure. Renal insufficiency. Patient on ventilator. Patient anemic.. . 02/06/18. Patient on ventilator. Respiratory failure. Acute respiratory failure. Spinal stenosis stat post C3 to C7. Acute and chronic renal failure. Coronary artery disease. Diabetes. Hypertension. Hyperlipidemia Clinical Quality Measures DVT/VTE Risk/Contraindication: Risk Factor Score Per Nursin RFS Level Per Nursing on Admit: 2=Moderate MARIIA SIM DO Feb 07, 2018 07:28
[2018-02-07] MEDS: CLOPIDOGREL 75 MG (PLAVIX) TABLET PO SCH (07:32)
[2018-02-07] MEDS: ASPIRIN 81 MG CHEW (CHILDREN'S ASA) PO SCH (07:32)
[2018-02-07] MEDS: amLODIPine 10 MG (NORVASC) TAB PO SCH (07:32)
[2018-02-07] MEDS: SENNOSIDES 8.6 MG (SENOKOT) TAB PO SCH ×2 (07:32→20:30)
[2018-02-07] MEDS: PANTOPRAZOLE 40 MG (PROTONIX) VIAL IV SCH (07:32)
[2018-02-07] MEDS: meTOprolol TARTRATE 50 MG (LOPRESSOR) TAB PO SCH ×2 (07:32→20:27)
--- NOTE | 2018-02-07 07:44 | Cardiology Progress Note ---
Subjective Date Seen by Provider: Feb 07, 2018 Time Seen by Provider: 07:41 Subjective/Events-last exam Patient is extubated, agitated and confused. Lethargic. Review of Systems General: No Chills, No Night Sweats; Fatigue, Malaise; No Appetite, No Other HEENT: No Head Aches, No Visual Changes, No Eye Pain, No Ear Pain, No Dysphasia , No Sinus Congestion, No Post Nasal Drip, No Sore Throat, No Other Pulmonary: No Dyspnea, No Cough, No Pleuritic Chest Pain, No Other Cardiovascular: No: Chest Pain, Palpitations, Orthopnea, Paroxysmal Noc. Dyspnea, Edema, Lt Headedness, Other Focused Exam Lactate Level 02/04/18 12:24: Lactic Acid Level 1.36 Objective-Cardiology Exam Last Set of Vital Signs Vital Signs 02/06/18 02/07/18 02/07/18 02/07/18 02/07/18 08:00 03:56 06:00 07:00 07:25 Temp 97.9 Pulse 64 Resp 7 B/P (MAP) 160/102 (121) Pulse Ox 99 O2 Delivery Nasal Cannula O2 Flow Rate 3.00 FiO2 30 Capillary Refill : Less Than 3 Seconds I&O Intake and Output 02/07/18 00:00 Intake Total 2254 ml Output Total 3530 ml Balance -1276 ml Intake Oral 0 ml IV Total 2254 ml Output Urine Total 3350 ml Gastric Drainage Total 180 ml General: Alert, Cooperative, Moderate Distress HEENT: Atraumatic, PERRLA Neck: Supple, No JVD, No Thyromegaly Lungs: Normal Air Movement, Other (bilateral rhonchi) Heart: Regular Rate, Normal S1, Normal S2, No Murmurs Abdomen: Normal Bowel Sounds, Soft, No Tenderness, No Hepatosplenomegaly, No Masses Extremities: No Clubbing, No Cyanosis, Normal Pulses, No Tenderness/Swelling Skin: No Rashes, No Breakdown, No Significant Lesion Neuro: Other (Received sedation last night, still sleepy and tired) Results Lab Laboratory Tests 02/07/18 03:30 A/P-Cardiology Admission Diagnosis Acute respiratory failure Acute renal failure Coronary artery disease Spinal stenosis Assessment/Plan Status post respiratory failure, difficult intubation, extubated on February 06, 2018. Recovering slowly. Agitation, confusion, received Ativan and Precedex, lethargic. Pulmonary infiltrate, receiving antibiotic coverage. Managed by Dr. Gao Acute on chronic renal failure, improving slowly. Continue to monitor renal function Anemia, continue to monitor H&H, managed by medical team Severe hypertension, required multiple doses of IV Lopressor and started on nitroglycerin drip last night. Starting to take oral medication, I will stop the IV Lopressor and monitor blood pressure. Patient had chest pain initially during recovery from surgery, EKG and cardiac enzymes did not show any acute abnormality. Currently troponin is elevated probably secondary to prolonged hypoxemia. Underlying coronary artery disease cannot be entirely excluded. Spinal stenosis, status post C3-7 ACDF with C5 corpectomy done by Dr. Hardwick on January 30, 2018. Coronary artery disease, history of cardiac catheterization done by Dr. Longoria which showed mild nonobstructive disease repeat cardiac catheterization done in 2017 showing severe stenosis in the mid LAD successful stenting using Alpine 3.0 18 mm stent expanded to 3.25 mm with good results, mild to moderate disease in the proximal portion of the LAD, moderate disease in the distal circumflex artery, DAPT was restarted. Monitor for any sign of bleeding. Carotid artery stenosis-mild nonobstructive disease per carotid duplex done July 2017, continue to monitor Diabetes mellitus, managed by Dr. Younger. Diabetic neuropathy, followed and managed by Dr. Younger. Hyperlipidemia, intolerant to Lipitor with severe diarrhea, continue to monitor for now History of erectile dysfunction, most likely secondary to peripheral neuropathy. Lower extremity pain, likely secondary to neuropathy, patient underwent peripheral angiogram done February 09, 2016 revealing mild to moderate disease in the anterior tibial of the left lower extremity and posterior tibial at 60-70 percent. Anterior tibial with good flow down to the ankle on the left lower extremity, otherwise mild disease in the right lower extremity and abdominal aorta. Continue maximizing medical therapy Clinical Quality Measures DVT/VTE Risk/Contraindication: Risk Factor Score Per Nursin RFS Level Per Nursing on Admit: 2=Moderate KAREN YANG MD Feb 07, 2018 07:44
--- NOTE | 2018-02-07 07:53 | Diagnostic Imaging Report ---
INDICATION: Dyspnea. TECHNIQUE: Single frontal view of the chest. COMPARISON: 02/06/2018 FINDINGS: Lung volumes are low. The tip of the right PICC line projects over the right atrium. There is cardiomegaly, likely accentuated by the low lung volumes. The endotracheal tube and enteric tube have been removed. There are prominent interstitial markings bilaterally. Overall aeration appears mildly improved, particularly on the left. No pneumothorax is seen. IMPRESSION: 1. Interval extubation. 2. Low lung volumes. Mild cardiomegaly and central vascular congestion with improved aeration at the left lung base. Dictated by: Dictated on workstation # [id number]
[2018-02-07] MEDS ORDERED: HALOPERIDOL 5 MG/ML (HALDOL) AMP IV ONE (09:45)
[2018-02-07] MEDS ORDERED: DEXMEDETOMIDINE INJECTION 1,000 MCG in NS (IVPB) 250 ML IV SCH (10:15)
[2018-02-07] MEDS: DEXMEDETOMIDINE INJECTION 1,000 MCG in NS (IVPB) 240 ML IV SCH ×2 (10:31→20:32)
--- NOTE | 2018-02-07 10:41 | Physical Therapy Progress Note ---
Therapy Progress Note No PT on this date due to decline in medical status. RN is aware. PT will continue to monitor patient status. MARK RAMIREZ PT Feb 07, 2018 10:41
--- NOTE | 2018-02-07 10:41 | Occ Therapy Progress Note ---
Therapy Progress Note Pt. sedated. Was agitated last night. Awaiting new CT. Will hold OT for now. [id number] RICHARD LING OT Feb 07, 2018 10:41
[2018-02-07] MEDS ORDERED: MIDAZOLAM 5 MG/5 ML (VERSED) VIAL ONE (10:59)
[2018-02-07] MEDS ORDERED: MIDAZOLAM 2 MG/2 ML (VERSED) VIAL IVP ONE (11:24)
[2018-02-07] MEDS: NITRO DRIP 25000 MCG/D5W 250 ML IV SCH (12:32)
--- NOTE | 2018-02-07 12:40 | Diagnostic Imaging Report ---
PROCEDURE: MR imaging of the brain without contrast. TECHNIQUE: Multiplanar, multisequence MR imaging of the brain was performed without contrast. INDICATION: Anisocoria, recent ACDF with worsened confusion. Patient is uncooperative and unable to follow directions. FINDINGS: There are no foci of abnormal diffusion restriction. There is no evidence for intracranial hemorrhage. No findings suggestive of focal or generalized cerebral edema. There are no features suggestive of an elevation to the intracranial pressures. While there is motion degradation, study is felt adequate to exclude any substantial pathology. There is no suspicious white matter disease. Paranasal sinuses show no acute pathology. The orbits are grossly unremarkable. No mass effect. IMPRESSION: No findings of infarct, hemorrhage, or acute pathology apparent. Dictated by: Dictated on workstation # [id number]
--- NOTE | 2018-02-07 13:27 | Progress Note (SOAP) ---
Subjective Date Seen by Provider: Feb 07, 2018 Time Seen by Provider: 13:25 Subjective/Events-last exam Mr Sims is still combatitive and dealing with HTN with attempted weaning of nitro. Stable from spine standpoint Objective Exam Vital Signs Date Time Temp Pulse Resp B/P (MAP) Pulse Ox O2 Delivery O2 Flow Rate FiO2 02/07/18 12:47 98 Nasal Cannula 3.00 02/07/18 12:32 181/104 02/07/18 12:00 66 7 181/104 (129) 94 Nasal Cannula 3.00 02/07/18 11:00 66 9 156/93 (114) 100 Nasal Cannula 3.00 02/07/18 10:35 92 Nasal Cannula 4.00 02/07/18 10:00 66 8 139/78 (98) 94 Nasal Cannula 3.00 02/07/18 09:00 76 13 152/93 (112) 98 Nasal Cannula 3.00 02/07/18 08:00 73 14 167/97 (120) 97 Nasal Cannula 3.00 02/07/18 07:59 98 Nasal Cannula 3.00 02/07/18 07:52 97.9 Nasal Cannula 3.00 02/07/18 07:25 99 Nasal Cannula 3.00 02/07/18 07:00 64 160/102 (121) 96 NIV CPAP 3.00 02/07/18 07:00 64 02/07/18 06:59 97 NIV CPAP 3.00 02/07/18 06:45 71 163/97 (119) 93 NIV CPAP 3.00 02/07/18 06:30 70 162/101 (121) 94 NIV CPAP 3.00 02/07/18 06:15 69 161/98 (119) 96 NIV CPAP 3.00 02/07/18 06:00 71 7 156/96 (116) 96 NIV CPAP 3.00 02/07/18 05:45 71 6 162/97 (118) 95 NIV CPAP 3.00 02/07/18 05:30 71 7 156/97 (116) 95 NIV CPAP 3.00 02/07/18 05:15 72 8 161/93 (115) 94 NIV CPAP 3.00 02/07/18 05:00 73 7 162/94 (116) 95 NIV CPAP 3.00 02/07/18 04:45 73 6 167/101 (123) 95 NIV CPAP 3.00 02/07/18 04:30 75 8 157/91 (113) 94 NIV CPAP 3.00 02/07/18 04:15 75 18 159/94 (115) 94 NIV CPAP 3.00 02/07/18 04:00 96 NIV CPAP 3.00 02/07/18 04:00 75 7 157/93 (114) 92 NIV CPAP 3.00 02/07/18 03:56 97.9 02/07/18 03:45 74 10 149/92 (111) 92 NIV CPAP 3.00 02/07/18 03:30 79 11 156/92 (113) 91 NIV CPAP 3.00 02/07/18 03:15 78 9 157/92 (113) 92 NIV CPAP 3.00 02/07/18 03:06 92 Nasal Cannula 3.00 02/07/18 03:00 78 23 169/91 (117) 94 NIV CPAP 3.00 02/07/18 02:45 82 17 173/101 (125) 96 NIV CPAP 3.00 02/07/18 02:30 93 190/102 (131) 97 NIV CPAP 3.00 02/07/18 02:15 94 26 177/98 (124) 96 NIV CPAP 3.00 02/07/18 02:00 93 10 172/100 (124) 92 NIV CPAP 3.00 02/07/18 01:45 81 13 163/95 (117) 94 NIV CPAP 3.00 02/07/18 01:30 81 16 170/100 (123) 92 NIV CPAP 3.00 02/07/18 01:15 81 9 169/102 (124) 95 NIV CPAP 3.00 02/07/18 01:00 87 15 172/98 (122) 89 NIV CPAP 3.00 02/07/18 01:00 89 02/07/18 00:45 96 18 168/95 (119) 95 NIV CPAP 3.00 02/07/18 00:30 89 11 166/103 (124) 94 NIV CPAP 3.00 02/07/18 00:15 89 33 174/98 (123) 93 NIV CPAP 3.00 02/07/18 00:00 96 NIV CPAP 3.00 02/07/18 00:00 97.3 02/07/18 00:00 94 9 183/98 (126) 94 NIV CPAP 3.00 02/06/18 23:45 92 15 184/94 (124) 94 NIV CPAP 3.00 02/06/18 23:30 90 6 168/95 (119) 94 NIV CPAP 3.00 02/06/18 23:15 92 10 155/84 (107) 97 NIV CPAP 3.00 02/06/18 23:00 86 8 167/94 (118) 95 NIV CPAP 3.00 02/06/18 22:45 86 7 161/88 (112) 96 NIV CPAP 3.00 02/06/18 22:30 87 8 168/84 (112) 94 NIV CPAP 3.00 02/06/18 22:15 85 10 171/87 (115) 96 NIV CPAP 3.00 02/06/18 22:05 95 Nasal Cannula 3.00 02/06/18 22:00 97 12 181/134 (150) 97 NIV CPAP 3.00 02/06/18 21:45 92 33 165/107 (126) 99 NIV CPAP 3.00 02/06/18 21:30 81 18 172/102 (125) 96 NIV CPAP 3.00 02/06/18 21:15 83 14 178/110 (132) 95 NIV CPAP 3.00 02/06/18 21:00 87 18 165/94 (117) 94 NIV CPAP 3.00 02/06/18 20:45 83 7 171/110 (130) 94 NIV CPAP 3.00 02/06/18 20:30 87 15 187/110 (135) 97 NIV CPAP 3.00 02/06/18 20:15 81 11 198/71 (113) 96 NIV CPAP 3.00 02/06/18 20:10 84 181/102 02/06/18 20:00 96 NIV CPAP 3.00 02/06/18 20:00 81 11 198/71 (113) 96 NIV CPAP 3.00 02/06/18 20:00 97.4 02/06/18 19:30 190/104 (132) NIV CPAP 3.00 02/06/18 19:00 78 02/06/18 19:00 78 8 191/102 (131) 91 NIV CPAP 3.00 02/06/18 18:45 NIV CPAP 3.00 02/06/18 18:33 97 Nasal Cannula 2.00 02/06/18 18:00 78 8 185/105 (131) 96 High Flow N/C 4.00 8/27/18 17:30 79 9 177/103 (127) 96 High Flow N/C 4.00 02/06/18 17:19 93 High Flow N/C 4.00 02/06/18 17:15 79 10 175/111 (132) 88 High Flow N/C 2.00 02/06/18 17:00 87 183/109 (133) 94 High Flow N/C 2.00 02/06/18 16:00 80 24 176/91 (119) High Flow N/C 2.00 02/06/18 16:00 97 High Flow N/C 2.00 02/06/18 15:00 97.1 76 12 181/91 (121) 95 High Flow N/C 2.00 02/06/18 14:09 76 12 162/95 (117) 98 High Flow N/C 2.00 02/06/18 14:07 96 Nasal Cannula 4.00 I & O 02/07/18 07:00 Intake Total 152 ml Output Total 3750 ml Balance -3598 ml Capillary Refill : Less Than 3 Seconds General Appearance: No Apparent Distress Cardiovascular: Regular Rate, Rhythm Extremity: Other (patient sedated, wound CDI) Results Lab Laboratory Tests 02/06/18 16:56: Glucometer 118H 02/06/18 20:21: Glucometer 117H 02/07/18 00:17: Glucometer 161H 02/07/18 03:30: White Blood Count 16.7H, Red Blood Count 2.87L, Hemoglobin 8.4L, Hematocrit 25L , Mean Corpuscular Volume 88, Mean Corpuscular Hemoglobin 29, Mean Corpuscular Hemoglobin Concent 33, Red Cell Distribution Width 13.0, Platelet Count 259, Mean Platelet Volume 10.5H, Neutrophils (%) (Auto) 91H, Lymphocytes (%) (Auto) 5L, Monocytes (%) (Auto) 4, Eosinophils (%) (Auto) 0, Basophils (%) (Auto) 0, Neutrophils # (Auto) 15.2H, Lymphocytes # (Auto) 0.9L, Monocytes # (Auto) 0.6, Eosinophils # (Auto) 0.0, Basophils # (Auto) 0.0, Sodium Level 148H, Potassium Level 4.4, Chloride Level 112H, Carbon Dioxide Level 23, Anion Gap 13, Blood Urea Nitrogen 85H, Creatinine 1.76H, Estimat Glomerular Filtration Rate 41, BUN/ Creatinine Ratio 48, Glucose Level 171H, Calcium Level 8.2L, Phosphorus Level 4.9H, Magnesium Level 3.8H 02/07/18 04:13: Glucometer 163H 02/07/18 06:42: Blood Gas Puncture Site LEFT RADIAL, Blood Gas Patient Temperature 97.7, Arterial Blood pH 7.41, Arterial Blood Partial Pressure CO2 45, Arterial Blood Partial Pressure O2 68L, Arterial Blood HCO3 28H, Arterial Blood Total CO2 29.3 , Arterial Blood Oxygen Saturation 97, Arterial Blood Base Excess 3.4H, Jem Test YES-POS, Blood Gas Ventilator Setting NO, Blood Gas Inspired Oxygen 3L 02/07/18 12:35: Glucometer 158H Microbiology 02/03/18 Blood Culture - Preliminary, Resulted No growth 01/31/18 Genital Culture - Final, Complete No growth 02/06/18 Gram Stain - Final, Resulted 02/06/18 Bronchial Culture - Preliminary, Resulted Culture In Progress 02/06/18 Fungal Culture 1 - Preliminary, Resulted Sent To [facility] 01/31/18 Urine Culture - Final, Complete NO GROWTH Assessment/Plan Assessment/Plan Assess & Plan/Chief Complaint ASSESSMENT: s/p cervical corpectomy renal failure HTN PLAN: continue supportive care brace only when OOB SCD DVT prophy d/c planning for SNF when ok with medicine Clinical Quality Measures DVT/VTE Risk/Contraindication: Risk Factor Score Per Nursin RFS Level Per Nursing on Admit: 2=Moderate CHRIS GENAO DO Feb 07, 2018 13:27
--- NOTE | 2018-02-07 16:36 | Speech Therapy Progress Note ---
Therapy Progress Note Attempted to see pt but pt was sleeping due to a medication. MIGUEL NORMAN Feb 07, 2018 16:36
[2018-02-07] MEDS: LORATADINE (CLARITIN) 10 MG TAB PO SCH ×2 (18:03→18:12)
[2018-02-07] MEDS: GLIMEPIRIDE 2 MG (AMARYL) TAB PO SCH ×2 (18:03→18:12)
--- NOTE | 2018-02-07 20:10 | Progress Note (SOAP) ---
Subjective Date Seen by Provider: Feb 07, 2018 Time Seen by Provider: 20:04 Subjective/Events-last exam POD #8 s/p acdf with corpectomy with post op respiratory and renal failure. Patient extubated, agitated and delerius. He has been hypertensive requiring nitro drip. He had brain MRI today. Objective Exam Vital Signs Date Time Temp Pulse Resp B/P (MAP) Pulse Ox O2 Delivery O2 Flow Rate FiO2 02/07/18 19:52 97.3 02/07/18 18:45 93 Nasal Cannula 4.00 02/07/18 18:00 66 13 149/78 (101) 96 Nasal Cannula 2.00 02/07/18 17:00 64 15 152/83 (106) 98 Nasal Cannula 2.00 02/07/18 16:05 98 Nasal Cannula 2.00 02/07/18 16:02 97.9 Nasal Cannula 2.00 02/07/18 16:00 64 11 162/76 (104) 97 Nasal Cannula 2.00 02/07/18 15:00 63 7 144/78 (100) 96 Nasal Cannula 2.00 02/07/18 14:30 Nasal Cannula 2.00 02/07/18 14:21 98 Nasal Cannula 4.00 02/07/18 14:00 61 7 143/80 (101) 98 Nasal Cannula 3.00 02/07/18 13:00 63 8 145/82 (103) 99 Nasal Cannula 3.00 02/07/18 13:00 63 02/07/18 12:47 98 Nasal Cannula 3.00 02/07/18 12:32 181/104 02/07/18 12:30 96.6 02/07/18 12:00 66 7 181/104 (129) 94 Nasal Cannula 3.00 02/07/18 11:00 66 9 156/93 (114) 100 Nasal Cannula 3.00 02/07/18 10:35 92 Nasal Cannula 4.00 02/07/18 10:00 66 8 139/78 (98) 94 Nasal Cannula 3.00 02/07/18 09:00 76 13 152/93 (112) 98 Nasal Cannula 3.00 02/07/18 08:00 73 14 167/97 (120) 97 Nasal Cannula 3.00 02/07/18 07:59 98 Nasal Cannula 3.00 02/07/18 07:52 97.9 Nasal Cannula 3.00 02/07/18 07:25 99 Nasal Cannula 3.00 02/07/18 07:00 64 160/102 (121) 96 NIV CPAP 3.00 02/07/18 07:00 64 02/07/18 06:59 97 NIV CPAP 3.00 02/07/18 06:45 71 163/97 (119) 93 NIV CPAP 3.00 02/07/18 06:30 70 162/101 (121) 94 NIV CPAP 3.00 02/07/18 06:15 69 161/98 (119) 96 NIV CPAP 3.00 02/07/18 06:00 71 7 156/96 (116) 96 NIV CPAP 3.00 02/07/18 05:45 71 6 162/97 (118) 95 NIV CPAP 3.00 02/07/18 05:30 71 7 156/97 (116) 95 NIV CPAP 3.00 02/07/18 05:15 72 8 161/93 (115) 94 NIV CPAP 3.00 02/07/18 05:00 73 7 162/94 (116) 95 NIV CPAP 3.00 02/07/18 04:45 73 6 167/101 (123) 95 NIV CPAP 3.00 02/07/18 04:30 75 8 157/91 (113) 94 NIV CPAP 3.00 02/07/18 04:15 75 18 159/94 (115) 94 NIV CPAP 3.00 02/07/18 04:00 96 NIV CPAP 3.00 02/07/18 04:00 75 7 157/93 (114) 92 NIV CPAP 3.00 02/07/18 03:56 97.9 02/07/18 03:45 74 10 149/92 (111) 92 NIV CPAP 3.00 02/07/18 03:30 79 11 156/92 (113) 91 NIV CPAP 3.00 02/07/18 03:15 78 9 157/92 (113) 92 NIV CPAP 3.00 02/07/18 03:06 92 Nasal Cannula 3.00 02/07/18 03:00 78 23 169/91 (117) 94 NIV CPAP 3.00 02/07/18 02:45 82 17 173/101 (125) 96 NIV CPAP 3.00 02/07/18 02:30 93 190/102 (131) 97 NIV CPAP 3.00 02/07/18 02:15 94 26 177/98 (124) 96 NIV CPAP 3.00 02/07/18 02:00 93 10 172/100 (124) 92 NIV CPAP 3.00 02/07/18 01:45 81 13 163/95 (117) 94 NIV CPAP 3.00 02/07/18 01:30 81 16 170/100 (123) 92 NIV CPAP 3.00 02/07/18 01:15 81 9 169/102 (124) 95 NIV CPAP 3.00 02/07/18 01:00 87 15 172/98 (122) 89 NIV CPAP 3.00 02/07/18 01:00 89 02/07/18 00:45 96 18 168/95 (119) 95 NIV CPAP 3.00 02/07/18 00:30 89 11 166/103 (124) 94 NIV CPAP 3.00 02/07/18 00:15 89 33 174/98 (123) 93 NIV CPAP 3.00 02/07/18 00:00 96 NIV CPAP 3.00 02/07/18 00:00 97.3 02/07/18 00:00 94 9 183/98 (126) 94 NIV CPAP 3.00 02/06/18 23:45 92 15 184/94 (124) 94 NIV CPAP 3.00 02/06/18 23:30 90 6 168/95 (119) 94 NIV CPAP 3.00 02/06/18 23:15 92 10 155/84 (107) 97 NIV CPAP 3.00 02/06/18 23:00 86 8 167/94 (118) 95 NIV CPAP 3.00 02/06/18 22:45 86 7 161/88 (112) 96 NIV CPAP 3.00 02/06/18 22:30 87 8 168/84 (112) 94 NIV CPAP 3.00 02/06/18 22:15 85 10 171/87 (115) 96 NIV CPAP 3.00 02/06/18 22:05 95 Nasal Cannula 3.00 02/06/18 22:00 97 12 181/134 (150) 97 NIV CPAP 3.00 02/06/18 21:45 92 33 165/107 (126) 99 NIV CPAP 3.00 02/06/18 21:30 81 18 172/102 (125) 96 NIV CPAP 3.00 02/06/18 21:15 83 14 178/110 (132) 95 NIV CPAP 3.00 02/06/18 21:00 87 18 165/94 (117) 94 NIV CPAP 3.00 02/06/18 20:45 83 7 171/110 (130) 94 NIV CPAP 3.00 02/06/18 20:30 87 15 187/110 (135) 97 NIV CPAP 3.00 02/06/18 20:15 81 11 198/71 (113) 96 NIV CPAP 3.00 02/06/18 20:10 84 181/102 I & O 02/07/18 07:00 Intake Total 152 ml Output Total 3750 ml Balance -3598 ml Capillary Refill : Less Than 3 Seconds General Appearance: Mild Distress HEENT: Other (left pupil 2-3mm vs right 4-5mm. right is sluggish to respon) Neck: No JVD; Other (left side incision covered with bandage) Respiratory: Lungs Clear, No Accessory Muscle Use Neurologic/Psychiatric: Other (responds to verbal stimulus, not oriented) Skin: Normal Color Results Lab Laboratory Tests 02/06/18 20:21: Glucometer 117H 02/07/18 00:17: Glucometer 161H 02/07/18 03:30: White Blood Count 16.7H, Red Blood Count 2.87L, Hemoglobin 8.4L, Hematocrit 25L , Mean Corpuscular Volume 88, Mean Corpuscular Hemoglobin 29, Mean Corpuscular Hemoglobin Concent 33, Red Cell Distribution Width 13.0, Platelet Count 259, Mean Platelet Volume 10.5H, Neutrophils (%) (Auto) 91H, Lymphocytes (%) (Auto) 5L, Monocytes (%) (Auto) 4, Eosinophils (%) (Auto) 0, Basophils (%) (Auto) 0, Neutrophils # (Auto) 15.2H, Lymphocytes # (Auto) 0.9L, Monocytes # (Auto) 0.6, Eosinophils # (Auto) 0.0, Basophils # (Auto) 0.0, Sodium Level 148H, Potassium Level 4.4, Chloride Level 112H, Carbon Dioxide Level 23, Anion Gap 13, Blood Urea Nitrogen 85H, Creatinine 1.76H, Estimat Glomerular Filtration Rate 41, BUN/ Creatinine Ratio 48, Glucose Level 171H, Calcium Level 8.2L, Phosphorus Level 4.9H, Magnesium Level 3.8H 02/07/18 04:13: Glucometer 163H 02/07/18 06:42: Blood Gas Puncture Site LEFT RADIAL, Blood Gas Patient Temperature 97.7, Arterial Blood pH 7.41, Arterial Blood Partial Pressure CO2 45, Arterial Blood Partial Pressure O2 68L, Arterial Blood HCO3 28H, Arterial Blood Total CO2 29.3 , Arterial Blood Oxygen Saturation 97, Arterial Blood Base Excess 3.4H, Jem Test YES-POS, Blood Gas Ventilator Setting NO, Blood Gas Inspired Oxygen 3L 02/07/18 12:35: Glucometer 158H 02/07/18 16:08: Glucometer 210H Microbiology 02/03/18 Blood Culture - Preliminary, Resulted No growth 01/31/18 Genital Culture - Final, Complete No growth 02/06/18 Mycobacterial Culture - Preliminary, Resulted 01/31/18 Urine Culture - Final, Complete NO GROWTH Assessment/Plan Assessment/Plan Assess & Plan/Chief Complaint assessment: pod #8 s/p acdf respiratory failure renal failure dm cad htn hyperkalemia - resolved plan: continue current care and treatment plan per Dr Younger and Sima will obtain c-cervical x-rays tomorrow Clinical Quality Measures DVT/VTE Risk/Contraindication: Risk Factor Score Per Nursin RFS Level Per Nursing on Admit: 2=Moderate CASS WALTER Feb 07, 2018 20:10
[2018-02-07] MEDS: ROSUVASTATIN 5 MG (CRESTOR) TABLET PO SCH (20:29)
[2018-02-08] VITALS (43 sets, daily range): BP systolic 144–191; BP diastolic 77–108
[2018-02-08] MEDS: RT-ALBUTEROL/IPRATROPIUM 3 ML (DUONEB) VIAL INH SCH ×6 (01:25→21:22)
[2018-02-08 03:43] LABS: BASOPHILS % (AUTO) 0 % (0-10); EOSINOPHILS # (AUTO) 0.2 10^3/uL (0.0-0.3); EOSINOPHILS % (AUTO) 2 % (0-10); HEMATOCRIT 26 % (40-54); HEMOGLOBIN 8.3 G/DL (13.3-17.7); LYMPHOCYTES # (AUTO) 0.9 X 10^3 (1.0-4.0); LYMPHOCYTES % (AUTO) 8 % (12-44); MEAN CORPUSCULAR HEMOGLOBIN 29 PG (25-34); MEAN CORPUSCULAR HGB CONC 32 G/DL (32-36); MEAN CORPUSCULAR VOLUME 89 FL (80-99); MEAN PLATELET VOLUME 10.1 FL (7.4-10.4); MONOCYTES # (AUTO) 0.8 X 10^3 (0.0-1.0); MONOCYTES % (AUTO) 7 % (0-12); NEUTROPHILS # (AUTO) 8.7 X 10^3 (1.8-7.8); NEUTROPHILS % (AUTO) 82 % (42-75); PLATELET COUNT 201 10^3/uL (130-400); RED BLOOD COUNT 2.89 10^6/uL (4.35-5.85); RED CELL DISTRIBUTION WIDTH 12.8 % (10.0-14.5); WHITE BLOOD COUNT 10.6 10^3/uL (4.3-11.0)
[2018-02-08 03:59] LABS: CALCIUM 8.3 MG/DL (8.5-10.1); CREATININE SERUM 1.48 MG/DL (0.60-1.30); MAGNESIUM 3.4 MG/DL (1.8-2.4); PHOSPHORUS 4.3 MG/DL (2.3-4.7); POTASSIUM 4.1 MMOL/L (3.6-5.0)
[2018-02-08] MEDS: HUMALOG SC SCH ×6 (04:49→23:52)
[2018-02-08] MEDS: NOVOLOG SC SCH ×6 (04:49→23:52)
[2018-02-08] MEDS: KCL 20 MEQ TAB (K-DUR) PO SCH (04:50)
[2018-02-08] MEDS: MAGNESIUM 1 GM/100 ML IVPB 100 ML IV SCH (04:50)
[2018-02-08] MEDS: POTASSIUM CL 10MEQ/50ML IVPB 50 ML IV SCH ×5 (04:50→09:47)
[2018-02-08] MEDS: D5W 1000 ML IV SOLUTION 1,000 ML IV SCH (05:04)
[2018-02-08] MEDS: NITRO DRIP 25000 MCG/D5W 250 ML IV SCH (05:12)
[2018-02-08] MEDS: DEXMEDETOMIDINE INJECTION 1,000 MCG in NS (IVPB) 240 ML IV SCH (05:13)
[2018-02-08] MEDS: GLIMEPIRIDE 4 MG (AMARYL) TAB PO SCH (05:52)
--- NOTE | 2018-02-08 06:15 | Progress Note (SOAP) ---
Subjective Time Seen by Provider: 06:00 Subjective/Events-last exam Patient slept during the night. Patient on nitroglycerin drip high blood pressure. Patient converses slowly. Pupils constricted. Patient appears to be doing better. Blood tests are good. MRI yesterday was negative. Kidney function has improved. Objective Exam Vital Signs Date Time Temp Pulse Resp B/P (MAP) Pulse Ox O2 Delivery O2 Flow Rate FiO2 02/08/18 06:00 67 10 177/98 (124) 99 NIV CPAP 4.00 02/08/18 05:45 71 11 180/98 (125) 91 NIV CPAP 4.00 02/08/18 05:30 67 10 170/93 (118) 94 NIV CPAP 4.00 02/08/18 05:15 69 14 154/77 (102) 93 NIV CPAP 4.00 02/08/18 05:12 64 02/08/18 05:00 66 18 151/100 (117) 96 NIV CPAP 4.00 02/08/18 04:45 68 12 157/83 (107) 98 NIV CPAP 4.00 02/08/18 04:30 67 10 167/97 (120) 92 NIV CPAP 4.00 02/08/18 04:15 67 11 170/98 (122) 92 NIV CPAP 4.00 02/08/18 04:00 65 10 148/77 (100) 93 NIV CPAP 4.00 02/08/18 04:00 98 Nasal Cannula 2.00 02/08/18 03:45 67 11 158/86 (110) 92 NIV CPAP 4.00 02/08/18 03:30 66 12 172/100 (124) 92 NIV CPAP 4.00 02/08/18 03:15 65 10 165/94 (117) 92 NIV CPAP 4.00 02/08/18 03:00 69 8 150/82 (104) 90 NIV CPAP 4.00 02/08/18 02:45 69 11 159/83 (108) 92 NIV CPAP 4.00 02/08/18 02:30 68 12 155/80 (105) 93 NIV CPAP 4.00 02/08/18 02:15 68 12 155/83 (107) 95 NIV CPAP 4.00 02/08/18 02:00 67 21 156/87 (110) 97 NIV CPAP 4.00 02/08/18 01:45 64 16 152/77 (102) 93 NIV CPAP 4.00 8/29/18 01:30 64 10 153/80 (104) 99 NIV CPAP 4.00 02/08/18 01:29 94 Nasal Cannula 4.00 02/08/18 01:15 65 10 157/87 (110) 98 NIV CPAP 4.00 02/08/18 01:00 64 02/08/18 01:00 64 15 155/83 (107) 99 NIV CPAP 4.00 02/08/18 00:45 62 12 148/84 (105) 99 NIV CPAP 4.00 02/08/18 00:30 63 17 147/87 (107) NIV CPAP 4.00 02/08/18 00:26 97.2 02/08/18 00:26 98 Nasal Cannula 2.00 02/08/18 00:15 64 20 144/85 (104) NIV CPAP 4.00 02/08/18 00:00 64 19 154/92 (112) 91 NIV CPAP 4.00 02/07/18 23:45 62 10 163/78 (106) 98 NIV CPAP 4.00 02/07/18 23:30 61 14 159/93 (115) 98 NIV CPAP 4.00 02/07/18 23:15 60 11 162/94 (116) 99 NIV CPAP 4.00 02/07/18 23:00 60 12 146/85 (105) 97 NIV CPAP 4.00 02/07/18 22:45 57 14 148/91 (110) 96 NIV CPAP 4.00 02/07/18 22:30 57 10 139/89 (106) 97 NIV CPAP 4.00 02/07/18 22:20 NIV CPAP 4.00 02/07/18 22:15 58 13 144/82 (102) 96 Nasal Cannula 2.00 02/07/18 22:00 58 14 149/88 (108) 98 Nasal Cannula 2.00 02/07/18 21:52 93 Nasal Cannula 4.00 02/07/18 21:45 58 13 137/81 (99) 97 Nasal Cannula 2.00 02/07/18 21:30 58 18 151/91 (111) 97 Nasal Cannula 2.00 02/07/18 21:15 61 12 135/79 (97) 97 Nasal Cannula 2.00 02/07/18 21:00 63 12 167/101 (123) 96 Nasal Cannula 2.00 02/07/18 20:45 65 10 165/100 (121) 98 Nasal Cannula 2.00 02/07/18 20:30 69 15 174/103 (126) 95 Nasal Cannula 2.00 02/07/18 20:15 72 12 148/85 (106) 98 Nasal Cannula 2.00 02/07/18 20:00 97.6 02/07/18 20:00 72 19 149/89 (109) 100 Nasal Cannula 2.00 02/07/18 20:00 75 11 149/89 (109) 97 Nasal Cannula 2.00 02/07/18 19:56 98 Nasal Cannula 2.00 02/07/18 19:52 97.3 02/07/18 19:45 70 11 175/101 (125) 97 Nasal Cannula 2.00 02/07/18 19:30 66 11 171/95 (120) 97 Nasal Cannula 2.00 02/07/18 19:15 64 12 164/96 (118) 97 Nasal Cannula 2.00 02/07/18 19:00 67 02/07/18 19:00 67 19 158/71 (100) 95 Nasal Cannula 2.00 02/07/18 18:45 93 Nasal Cannula 4.00 02/07/18 18:00 66 13 149/78 (101) 96 Nasal Cannula 2.00 02/07/18 17:00 64 15 152/83 (106) 98 Nasal Cannula 2.00 02/07/18 16:05 98 Nasal Cannula 2.00 02/07/18 16:02 97.9 Nasal Cannula 2.00 02/07/18 16:00 64 11 162/76 (104) 97 Nasal Cannula 2.00 02/07/18 15:00 63 7 144/78 (100) 96 Nasal Cannula 2.00 02/07/18 14:30 Nasal Cannula 2.00 02/07/18 14:21 98 Nasal Cannula 4.00 02/07/18 14:00 61 7 143/80 (101) 98 Nasal Cannula 3.00 02/07/18 13:00 63 8 145/82 (103) 99 Nasal Cannula 3.00 02/07/18 13:00 63 02/07/18 12:47 98 Nasal Cannula 3.00 02/07/18 12:32 181/104 02/07/18 12:30 96.6 02/07/18 12:00 66 7 181/104 (129) 94 Nasal Cannula 3.00 02/07/18 11:00 66 9 156/93 (114) 100 Nasal Cannula 3.00 02/07/18 10:35 92 Nasal Cannula 4.00 02/07/18 10:00 66 8 139/78 (98) 94 Nasal Cannula 3.00 02/07/18 09:00 76 13 152/93 (112) 98 Nasal Cannula 3.00 02/07/18 08:00 73 14 167/97 (120) 97 Nasal Cannula 3.00 02/07/18 07:59 98 Nasal Cannula 3.00 02/07/18 07:52 97.9 Nasal Cannula 3.00 02/07/18 07:25 99 Nasal Cannula 3.00 02/07/18 07:00 64 160/102 (121) 96 NIV CPAP 3.00 02/07/18 07:00 64 02/07/18 06:59 97 NIV CPAP 3.00 02/07/18 06:45 71 163/97 (119) 93 NIV CPAP 3.00 02/07/18 06:30 70 162/101 (121) 94 NIV CPAP 3.00 02/07/18 06:15 69 161/98 (119) 96 NIV CPAP 3.00 I & O 02/08/18 07:00 Intake Total 4130 ml Output Total 3625 ml Balance 505 ml Capillary Refill : Less Than 3 Seconds General Appearance: No Apparent Distress, WD/WN HEENT: Other (Pupils constricted does not respond to light) Neck: Normal Inspection Respiratory: Chest Non Tender, Lungs Clear, No Accessory Muscle Use, No Respiratory Distress Cardiovascular: Regular Rate, Rhythm, No Murmur Gastrointestinal: non tender, soft Results Lab Laboratory Tests 02/08/18 03:30 Laboratory Tests 02/07/18 06:42: Blood Gas Puncture Site LEFT RADIAL, Blood Gas Patient Temperature 97.7, Arterial Blood pH 7.41, Arterial Blood Partial Pressure CO2 45, Arterial Blood Partial Pressure O2 68L, Arterial Blood HCO3 28H, Arterial Blood Total CO2 29.3 , Arterial Blood Oxygen Saturation 97, Arterial Blood Base Excess 3.4H, Jem Test YES-POS, Blood Gas Ventilator Setting NO, Blood Gas Inspired Oxygen 3L 02/07/18 12:35: Glucometer 158H 02/07/18 16:08: Glucometer 210H 02/07/18 20:06: Glucometer 182H 02/07/18 23:31: Glucometer 145H 02/08/18 03:30: White Blood Count 10.6, Red Blood Count 2.89L, Hemoglobin 8.3L, Hematocrit 26L, Mean Corpuscular Volume 89, Mean Corpuscular Hemoglobin 29, Mean Corpuscular Hemoglobin Concent 32, Red Cell Distribution Width 12.8, Platelet Count 201, Mean Platelet Volume 10.1, Neutrophils (%) (Auto) 82H, Lymphocytes (%) (Auto) 8L , Monocytes (%) (Auto) 7, Eosinophils (%) (Auto) 2, Basophils (%) (Auto) 0, Neutrophils # (Auto) 8.7H, Lymphocytes # (Auto) 0.9L, Monocytes # (Auto) 0.8, Eosinophils # (Auto) 0.2, Basophils # (Auto) 0.0, Sodium Level 149H, Potassium Level 4.1, Chloride Level 113H, Carbon Dioxide Level 26, Anion Gap 10, Blood Urea Nitrogen 71H, Creatinine 1.48H, Estimat Glomerular Filtration Rate 50, BUN/ Creatinine Ratio 48, Glucose Level 116H, Calcium Level 8.3L, Phosphorus Level 4.3, Magnesium Level 3.4H 02/08/18 03:33: Glucometer 112H Microbiology 02/03/18 Blood Culture - Preliminary, Resulted No growth 01/31/18 Genital Culture - Final, Complete No growth 02/06/18 Mycobacterial Culture - Preliminary, Resulted 01/31/18 Urine Culture - Final, Complete NO GROWTH Assessment/Plan Assessment/Plan Assess & Plan/Chief Complaint Mild opacity. Cervical surgery. Diabetes. Coronary artery disease. Diabetic retinopathy. . 02/01/18. Myelopathy. Diabetes. Hyperkalemia. Coronary artery disease. Diabetes. Diabetic neuropathy. Confusion yesterday. Weakness yesterday. Failure 02/02/18. Myelopathy. Diabetes. Hypokalemia. Febrile. Leukocytosis. Renal insufficiency. Confusion at times... . 02/07/18. Recent surgery for cervical stenosis. Acute respiratory failure. Hypertension. Diabetes. GABRIELLA. Leukocytosis. UTI with sepsis. ckd improving . 02/03/18 myelopathy. Diabetes. Respiratory failure. Non-ST elevated LA. Congestive heart failure. Renal insufficiency. Patient on ventilator. Patient anemic.. . 02/06/18. Patient on ventilator. Respiratory failure. Acute respiratory failure. Spinal stenosis stat post C3 to C7. Acute and chronic renal failure. Coronary artery disease. Diabetes. Hypertension. Hyperlipidemia. . 02/07/18. Patient agitated during the night. Patient seen yesterday but report not on the computer Patient stable. . 02/08/18. Patient rested comfortably during the night. Spinal stenosis. Renal failure improving. Coronary artery disease. Hypertension. Diabetes. Hyperlipidemia. Patient speaking slowly. Patient takes sense. Patient's pupils constricted. Clinical Quality Measures DVT/VTE Risk/Contraindication: Risk Factor Score Per Nursin RFS Level Per Nursing on Admit: 2=Moderate MARIIA SIM DO Feb 08, 2018 06:15
--- NOTE | 2018-02-08 06:23 | Pulmonary Progress Note ---
Subjective Time Seen by Provider: 06:36 Subjective/Events-last exam Pt is currently sedated. Sepsis Event Evaluation Height, Weight, BMI Height: 5'11.00" Weight: 288lbs. 0.0oz. 130.674194uh; 40.2 BMI Method:Stated Exam Exam Vital Signs Date Time Temp Pulse Resp B/P (MAP) Pulse Ox O2 Delivery O2 Flow Rate FiO2 02/08/18 06:15 68 14 168/96 (120) 98 NIV CPAP 4.00 02/08/18 06:00 67 10 177/98 (124) 99 NIV CPAP 4.00 02/08/18 05:45 71 11 180/98 (125) 91 NIV CPAP 4.00 02/08/18 05:30 67 10 170/93 (118) 94 NIV CPAP 4.00 02/08/18 05:15 69 14 154/77 (102) 93 NIV CPAP 4.00 02/08/18 05:12 64 02/08/18 05:00 66 18 151/100 (117) 96 NIV CPAP 4.00 02/08/18 04:45 68 12 157/83 (107) 98 NIV CPAP 4.00 02/08/18 04:30 67 10 167/97 (120) 92 NIV CPAP 4.00 02/08/18 04:15 67 11 170/98 (122) 92 NIV CPAP 4.00 02/08/18 04:00 65 10 148/77 (100) 93 NIV CPAP 4.00 02/08/18 04:00 98 Nasal Cannula 2.00 02/08/18 03:45 67 11 158/86 (110) 92 NIV CPAP 4.00 02/08/18 03:30 66 12 172/100 (124) 92 NIV CPAP 4.00 02/08/18 03:15 65 10 165/94 (117) 92 NIV CPAP 4.00 02/08/18 03:00 69 8 150/82 (104) 90 NIV CPAP 4.00 02/08/18 02:45 69 11 159/83 (108) 92 NIV CPAP 4.00 02/08/18 02:30 68 12 155/80 (105) 93 NIV CPAP 4.00 02/08/18 02:15 68 12 155/83 (107) 95 NIV CPAP 4.00 02/08/18 02:00 67 21 156/87 (110) 97 NIV CPAP 4.00 02/08/18 01:45 64 16 152/77 (102) 93 NIV CPAP 4.00 02/08/18 01:30 64 10 153/80 (104) 99 NIV CPAP 4.00 02/08/18 01:29 94 Nasal Cannula 4.00 02/08/18 01:15 65 10 157/87 (110) 98 NIV CPAP 4.00 02/08/18 01:00 64 02/08/18 01:00 64 15 155/83 (107) 99 NIV CPAP 4.00 02/08/18 00:45 62 12 148/84 (105) 99 NIV CPAP 4.00 02/08/18 00:30 63 17 147/87 (107) NIV CPAP 4.00 02/08/18 00:26 97.2 02/08/18 00:26 98 Nasal Cannula 2.00 02/08/18 00:15 64 20 144/85 (104) NIV CPAP 4.00 02/08/18 00:00 64 19 154/92 (112) 91 NIV CPAP 4.00 02/07/18 23:45 62 10 163/78 (106) 98 NIV CPAP 4.00 02/07/18 23:30 61 14 159/93 (115) 98 NIV CPAP 4.00 02/07/18 23:15 60 11 162/94 (116) 99 NIV CPAP 4.00 02/07/18 23:00 60 12 146/85 (105) 97 NIV CPAP 4.00 02/07/18 22:45 57 14 148/91 (110) 96 NIV CPAP 4.00 02/07/18 22:30 57 10 139/89 (106) 97 NIV CPAP 4.00 02/07/18 22:20 NIV CPAP 4.00 02/07/18 22:15 58 13 144/82 (102) 96 Nasal Cannula 2.00 02/07/18 22:00 58 14 149/88 (108) 98 Nasal Cannula 2.00 02/07/18 21:52 93 Nasal Cannula 4.00 02/07/18 21:45 58 13 137/81 (99) 97 Nasal Cannula 2.00 02/07/18 21:30 58 18 151/91 (111) 97 Nasal Cannula 2.00 02/07/18 21:15 61 12 135/79 (97) 97 Nasal Cannula 2.00 8/28/18 21:00 63 12 167/101 (123) 96 Nasal Cannula 2.00 02/07/18 20:45 65 10 165/100 (121) 98 Nasal Cannula 2.00 02/07/18 20:30 69 15 174/103 (126) 95 Nasal Cannula 2.00 02/07/18 20:15 72 12 148/85 (106) 98 Nasal Cannula 2.00 02/07/18 20:00 97.6 02/07/18 20:00 72 19 149/89 (109) 100 Nasal Cannula 2.00 02/07/18 20:00 75 11 149/89 (109) 97 Nasal Cannula 2.00 02/07/18 19:56 98 Nasal Cannula 2.00 02/07/18 19:52 97.3 02/07/18 19:45 70 11 175/101 (125) 97 Nasal Cannula 2.00 02/07/18 19:30 66 11 171/95 (120) 97 Nasal Cannula 2.00 02/07/18 19:15 64 12 164/96 (118) 97 Nasal Cannula 2.00 02/07/18 19:00 67 02/07/18 19:00 67 19 158/71 (100) 95 Nasal Cannula 2.00 02/07/18 18:45 93 Nasal Cannula 4.00 02/07/18 18:00 66 13 149/78 (101) 96 Nasal Cannula 2.00 02/07/18 17:00 64 15 152/83 (106) 98 Nasal Cannula 2.00 02/07/18 16:05 98 Nasal Cannula 2.00 02/07/18 16:02 97.9 Nasal Cannula 2.00 02/07/18 16:00 64 11 162/76 (104) 97 Nasal Cannula 2.00 02/07/18 15:00 63 7 144/78 (100) 96 Nasal Cannula 2.00 02/07/18 14:30 Nasal Cannula 2.00 02/07/18 14:21 98 Nasal Cannula 4.00 02/07/18 14:00 61 7 143/80 (101) 98 Nasal Cannula 3.00 02/07/18 13:00 63 8 145/82 (103) 99 Nasal Cannula 3.00 02/07/18 13:00 63 02/07/18 12:47 98 Nasal Cannula 3.00 02/07/18 12:32 181/104 02/07/18 12:30 96.6 8/28/18 12:00 66 7 181/104 (129) 94 Nasal Cannula 3.00 02/07/18 11:00 66 9 156/93 (114) 100 Nasal Cannula 3.00 02/07/18 10:35 92 Nasal Cannula 4.00 02/07/18 10:00 66 8 139/78 (98) 94 Nasal Cannula 3.00 02/07/18 09:00 76 13 152/93 (112) 98 Nasal Cannula 3.00 02/07/18 08:00 73 14 167/97 (120) 97 Nasal Cannula 3.00 02/07/18 07:59 98 Nasal Cannula 3.00 02/07/18 07:52 97.9 Nasal Cannula 3.00 02/07/18 07:25 99 Nasal Cannula 3.00 02/07/18 07:00 64 160/102 (121) 96 NIV CPAP 3.00 02/07/18 07:00 64 02/07/18 06:59 97 NIV CPAP 3.00 02/07/18 06:45 71 163/97 (119) 93 NIV CPAP 3.00 02/07/18 06:30 70 162/101 (121) 94 NIV CPAP 3.00 I & O 02/08/18 07:00 Intake Total 4130 ml Output Total 3625 ml Balance 505 ml Height & Weight Height: 5'11.00" Weight: 288lbs. 0.0oz. 130.554356lq; 40.2 BMI Method:Stated General Appearance: No Apparent Distress, WD/WN HEENT: Other (Pupils constricted does not respond to light) Neck: Normal Inspection Respiratory: Chest Non Tender, Lungs Clear, No Accessory Muscle Use, No Respiratory Distress Cardiovascular: Regular Rate, Rhythm, No Murmur Capillary Refill: Less Than 3 Seconds Gastrointestinal: non tender, soft Extremity: Other (patient sedated, wound CDI) Neurologic/Psychiatric: Other (responds to verbal stimulus, not oriented) Skin: Normal Color Lymphatic: No Adenopathy Results Lab Laboratory Tests 02/07/18 03:30 02/08/18 03:30 Assessment/Plan Assessment/Plan HX of cervical stenosis S/P C3-7 ACDF with C5 corpectomy Acute respiratory failure/distress -Pt is off ventilator Hypernatremia - D5W Psychosis/metabolic encephalopathy - -D/C solumedrol -D/C Precedex gtt -PRN Haldol and scheduled Risperdal -PRN Morphine HTN -currently on nitrogtt-- will D/C and start PO meds Hypermag, Hyperphos -D/C multivitamin and MOM GABRIELLA -home CPAP. May need to be placed on hospital BIPAP secondary to sedation -Check ABG Leukocytosis - partially secondary to solumedrol UTI with sepsis and urinary retention - Zosyn (MRSA swab is negative) -repeat Manjarrez cultures - pending CKD with hyperkalemia and metabolic acidosis -D/C Bicarb gtt -continue to monitor Anemia - monitor JORGE GONZALEZ DO Feb 08, 2018 06:23
[2018-02-08] MEDS ORDERED: FUROSEMIDE 40 MG/4 ML INJ (LASIX) IVP ONE (06:30)
[2018-02-08] MEDS ORDERED: FUROSEMIDE 40 MG/4 ML INJ (LASIX) ONE (06:32)
[2018-02-08] MEDS: HALOPERIDOL 5 MG/ML (HALDOL) AMP IV PRN ×2 (06:46→14:29)
[2018-02-08] MEDS ORDERED: cloNIDine 0.1 MG (CATAPRES) TAB ONE (07:51)
--- NOTE | 2018-02-08 07:55 | Cardiology Progress Note ---
Subjective Date Seen by Provider: Feb 08, 2018 Time Seen by Provider: 07:53 Subjective/Events-last exam Patient is laying down in bed, lethargic, still sedated. No new complaint. No chest pain. Review of Systems General: No Chills, No Night Sweats, No Fatigue, No Malaise, No Appetite, No Other HEENT: No Head Aches, No Visual Changes, No Eye Pain, No Ear Pain, No Dysphasia , No Sinus Congestion, No Post Nasal Drip, No Sore Throat, No Other Pulmonary: Dyspnea; No Cough, No Pleuritic Chest Pain, No Other Cardiovascular: No: Chest Pain, Palpitations, Orthopnea, Paroxysmal Noc. Dyspnea, Edema, Lt Headedness, Other Objective-Cardiology Exam Last Set of Vital Signs Vital Signs 02/06/18 02/08/18 02/08/18 08:00 06:45 07:02 Pulse 73 Resp 13 B/P (MAP) 171/97 (121) Pulse Ox 95 O2 Delivery Nasal Cannula O2 Flow Rate 4.00 FiO2 30 Capillary Refill : Less Than 3 Seconds I&O Intake and Output 02/08/18 00:00 Intake Total 2682 ml Output Total 3775 ml Balance -1093 ml Intake Oral 800 ml IV Total 1882 ml Output Urine Total 3775 ml General: Alert, Cooperative, Mild Distress HEENT: Atraumatic, PERRLA Neck: Supple, No JVD, No Thyromegaly Lungs: Normal Air Movement, Other (bilateral rhonchi) Heart: Regular Rate, Normal S1, Normal S2, No Murmurs Abdomen: Normal Bowel Sounds, Soft, No Tenderness, No Hepatosplenomegaly, No Masses Extremities: No Clubbing, No Cyanosis, Normal Pulses, No Tenderness/Swelling Skin: No Rashes, No Breakdown, No Significant Lesion Neuro: Other (Sedated and lethargic) Results Lab Laboratory Tests 02/08/18 03:30 A/P-Cardiology Admission Diagnosis Acute respiratory failure Acute renal failure Coronary artery disease Spinal stenosis Assessment/Plan Status post respiratory failure, difficult intubation, extubated on February 06, 2018. Recovering slowly. Agitation, confusion, received Ativan and Precedex, lethargic. Will be off sedation today Pulmonary infiltrate, receiving antibiotic coverage. Managed by Dr. Gao Acute on chronic renal failure, improving slowly. Continue to monitor renal function Anemia, continue to monitor H&H, managed by medical team Severe hypertension, resistant to multiple medication, we will try to wean him off nitroglycerin drip today, he was intolerant to CAMILLA inhibitor and/or ARB in the past due to renal failure and hyperkalemia. I will try clonidine and I will use clonidine patch 0.1 mg in addition to the tablet 0.1 mg 3 times a day and evaluate his tolerance and response Patient had chest pain initially during recovery from surgery, EKG and cardiac enzymes did not show any acute abnormality. Currently troponin is elevated probably secondary to prolonged hypoxemia. Underlying coronary artery disease cannot be entirely excluded. Spinal stenosis, status post C3-7 ACDF with C5 corpectomy done by Dr. Hardwick on January 30, 2018. Coronary artery disease, history of cardiac catheterization done by Dr. Longoria which showed mild nonobstructive disease repeat cardiac catheterization done in 2017 showing severe stenosis in the mid LAD successful stenting using Alpine 3.0 18 mm stent expanded to 3.25 mm with good results, mild to moderate disease in the proximal portion of the LAD, moderate disease in the distal circumflex artery, DAPT was restarted. Monitor for any sign of bleeding. Carotid artery stenosis-mild nonobstructive disease per carotid duplex done July 2017, continue to monitor Diabetes mellitus, managed by Dr. Younger. Diabetic neuropathy, followed and managed by Dr. Younger. Hyperlipidemia, intolerant to Lipitor with severe diarrhea, continue to monitor for now History of erectile dysfunction, most likely secondary to peripheral neuropathy. Lower extremity pain, likely secondary to neuropathy, patient underwent peripheral angiogram done February 09, 2016 revealing mild to moderate disease in the anterior tibial of the left lower extremity and posterior tibial at 60-70 percent. Anterior tibial with good flow down to the ankle on the left lower extremity, otherwise mild disease in the right lower extremity and abdominal aorta. Continue maximizing medical therapy Clinical Quality Measures DVT/VTE Risk/Contraindication: Risk Factor Score Per Nursin RFS Level Per Nursing on Admit: 2=Moderate KAREN YANG MD Feb 08, 2018 07:55
[2018-02-08] MEDS: PIPERACILLIN SODIUM/TAZOBACTAM 4.5 GM in D5W 100 ML IVPB 100 ML IV SCH ×3 (08:00→23:57)
[2018-02-08] MEDS: hydrALAZINE (APESOLINE) 20 MG/ML VIAL IV PRN ×3 (08:00→22:26)
[2018-02-08] MEDS ORDERED: cloNIDine 0.1 MG PATCH (CATAPRES TTS) TDSY TD NR (08:00)
[2018-02-08] MEDS: risperiDONE 1 MG (RisperDAL) TAB PO SCH ×2 (08:01→20:57)
[2018-02-08] MEDS: PANTOPRAZOLE 40 MG (PROTONIX) VIAL IV SCH (08:01)
[2018-02-08] MEDS: meTOprolol TARTRATE 50 MG (LOPRESSOR) TAB PO SCH ×2 (08:01→20:58)
[2018-02-08] MEDS: ASPIRIN 81 MG CHEW (CHILDREN'S ASA) PO SCH (08:01)
[2018-02-08] MEDS: SENNOSIDES 8.6 MG (SENOKOT) TAB PO SCH ×2 (08:01→20:57)
[2018-02-08] MEDS: CLOPIDOGREL 75 MG (PLAVIX) TABLET PO SCH (08:01)
[2018-02-08] MEDS: cloNIDine 0.1 MG (CATAPRES) TAB PO SCH ×2 (08:02→21:00)
[2018-02-08] MEDS: amLODIPine 10 MG (NORVASC) TAB PO SCH (08:02)
[2018-02-08] MEDS: ACETAMINOPHEN 325 MG TABLET PO PRN ×2 (08:33→18:23)
--- NOTE | 2018-02-08 08:37 | Diagnostic Imaging Report ---
INDICATION: Dyspnea. COMPARISON: 02/07/2018. FINDINGS: There is cardiomegaly. There is mild venous congestion. There is some patchy bibasilar atelectasis and/or pneumonitis. There is no pleural effusion or pneumothorax. The right upper extremity PICC line has its tip in the right atrium. IMPRESSION: Patchy bibasilar atelectasis and/or pneumonitis. Cardiomegaly and some central pulmonary venous congestion. Dictated by: Dictated on workstation # [id number]
[2018-02-08] MEDS: lisINopril 20 MG (PRINIVIL) TABLET PO SCH (10:39)
--- NOTE | 2018-02-08 10:57 | Physical Therapy Daily Note ---
PT Daily Note-Current Subjective Patient in bed pre tx, is very confused, has a sitter. Patient states he has pain but cannot state where it is. Appearance Patient BTB post tx with nurse call, sitter in room. Mental Status Patient Orientation: Person, Confused Transfers Functional [place] Measure 0=Not Assessed/NA 4=Minimal Assistance 1=Total Assistance 5=Supervision or Setup 2=Maximal Assistance 6=Modified [place] 3=Moderate Assistance 7=Complete IndependenceIRFPAI Quality Coding Scale 6 Independent with activity with or without an assistive device 5 Patient requires set up or clean up by helper. Patient completes activity by themselves 4 Supervision or touching assist (CGA). [place] provide cues , steadying assist 3 The helper provides less than half the effort to complete the activity 2 The helper provides more than half the effort to complete the activity 1 Dependent. The helper does all the effort to complete an activity 7 Patient refused to complete or attempt activity 9 The patient did not perform the activity before the current illness or injury 88 Not attempted due to Medical conditions or safety concerns Transfers (B, C, W/C) (FIM): 1 Scootin Rollin Supine to/from Sit: 1 Patient sat at the edge of the bed for 15 min, he is very confused and agitated , he states he just wants to get up but is very unstable and would most likely fall if he stood without significant assist from multiple therapists. Weight Bearing Right Lower Extremity: Right Full Weight Bearing Left Lower Extremity: Left Full Weight Bearing Exercises Seated Therapy Exercises: Long arc quads Seated Reps: 10 Treatments bed mobility, sitting, AROM Assessment Current Status: Poor Progress Patient is very confused, agitated, he is a high fall risk. PT Short Term Goals Short Term Goals Time Frame: Feb 04, 2018 Gait (FIM): 6 Distance (FIM): 3=150 ft Gait Level of Assist: 6 Gait Assistive Device: FWW, Cane Single Point PT Plan Problem List Problem List: Activity Tolerance, Functional Strength, Safety, Balance, Gait, Transfer, Bed Mobility, ROM Treatment/Plan Treatment Plan: Continue Plan of Care Treatment Plan: Bed Mobility, Concurrent Therapy, Education, Functional Activity [place], Functional Strength, Gait, Safety, Therapeutic Exercise, Transfers Treatment Duration: Feb 04, 2018 Frequency: 5 times per week Estimated Hrs Per Day: .25 hour per day Patient and/or Family Agrees t: Yes Safety Risks/Education Patient Education: Transfer Techniques, Reviewed Precautions, Correct Positioning, Disease Process, Safety Issues Teaching Recipient: Patient Teaching Methods: Demonstration, Discussion Response to Teaching: Reinforcement Needed Time/GCodes Time In: 1030 Time Out: 1053 Total Billed Treatment Time: 23 Total Billed Treatment 1 visit FA MARCELL BADILLO PT Feb 08, 2018 10:57
--- NOTE | 2018-02-08 14:18 | Occ Therapy Progress Note ---
Therapy Progress Note Checked on pt. Spoke with PT. Pt. agitated and confused. PT states pt. unsafe when up. Will continue to monitor pt. to begin ADL training with skilled instruction when pt. is able. [id number] RICHARD LING OT Feb 08, 2018 14:18
[2018-02-08] MEDS: morphine INJ 4 MG/ML 1 ML (VIAL/SYRINGE) IVP PRN ×2 (14:29→20:58)
--- NOTE | 2018-02-08 14:54 | ST Dysphagia Evaluation ---
Speech Evaluation-General Medical Diagnosis myelopathy Onset Date: Jan 30, 2018 Therapy Diagnosis Therapy Diagnosis: ? Dysphagia Precautions Precautions/Isolations: Fall Prevention, Standard Precautions Referral Referring Physician: Dr. Yannick Hardwick Reason for Referral: Evaluation/Treatment Medical History Pertinent Medical History: Arthritis, CAD, DM, Heart Failure, HTN, Neuropathy, PVD Reviewed History: Yes Social History Current Living Status: Alone (16 year old son lives there [employer] representative) Speech PLF/Current-Dysphagia Prior Level of Function Independent Subjective pt in be alert. Cognitive Status Patient Orientation: Confused, Non-Verbal/Aphasic, Eyes Open Oral Motor Skills Dentition: Natural Ability to Follow Directions: Poor Dysphagia Evaluation Consistencies Presented: Regular, Thin Liquid, Mechanical Soft, Pureed WFL WFL No s/s of aspiration observed. Dietary Recommendations: Regular Liquid Recommendations: Thin Swallowing Precautions: Oral Supervision Staff Pt may need assistance with feeding. Dysphagia Evaluation Summary Pt appears to tolerate regular foods and thin liquids with no s/s of aspiration. Barriers to Learning Confusion Speech-Plan Patient/Family Goals Patient/Family Goals: pt unable to state goals. Treatment Plan Speech Therapy Treatment Plan: Discontinue ST no skilled ST indicated. Frequency: Modified Program (IRF) (0) Estimated Hrs Per Day: Other (0) Rehab Potential: Guarded Barriers to Learning: Confusion Time Speech Therapy Time In: 14:15 Speech Therapy Time Out: 14:30 Total Billed Time: 15 Billed Treatment Time 1, MIGUEL Shelton Feb 08, 2018 14:54
[2018-02-08] MEDS ORDERED: cloNIDine 0.1 MG (CATAPRES) TAB PO NR (17:00)
[2018-02-08] MEDS: GLIMEPIRIDE 2 MG (AMARYL) TAB PO SCH (17:03)
[2018-02-08] MEDS: LORATADINE (CLARITIN) 10 MG TAB PO SCH (17:03)
[2018-02-08] MEDS ORDERED: cloNIDine 0.1 MG (CATAPRES) TAB PO ONE (18:45)
[2018-02-08] MEDS: ROSUVASTATIN 5 MG (CRESTOR) TABLET PO SCH (20:57)
[2018-02-09] VITALS (16 sets, daily range): BP systolic 124–202; BP diastolic 57–112
[2018-02-09] MEDS: RT-ALBUTEROL/IPRATROPIUM 3 ML (DUONEB) VIAL INH SCH ×6 (01:53→20:39)
[2018-02-09] MEDS: D5W 1000 ML IV SOLUTION 1,000 ML IV SCH (03:15)
[2018-02-09] MEDS: HUMALOG SC SCH (04:01)
[2018-02-09] MEDS: NOVOLOG SC SCH (04:01)
[2018-02-09 04:14] LABS: BASOPHILS % (AUTO) 0 % (0-10); EOSINOPHILS # (AUTO) 0.3 10^3/uL (0.0-0.3); EOSINOPHILS % (AUTO) 2 % (0-10); HEMATOCRIT 27 % (40-54); HEMOGLOBIN 8.8 G/DL (13.3-17.7); LYMPHOCYTES # (AUTO) 0.8 X 10^3 (1.0-4.0); LYMPHOCYTES % (AUTO) 8 % (12-44); MEAN CORPUSCULAR HEMOGLOBIN 29 PG (25-34); MEAN CORPUSCULAR HGB CONC 32 G/DL (32-36); MEAN CORPUSCULAR VOLUME 90 FL (80-99); MEAN PLATELET VOLUME 10.2 FL (7.4-10.4); MONOCYTES # (AUTO) 0.7 X 10^3 (0.0-1.0); MONOCYTES % (AUTO) 7 % (0-12); NEUTROPHILS # (AUTO) 8.6 X 10^3 (1.8-7.8); NEUTROPHILS % (AUTO) 83 % (42-75); PLATELET COUNT 177 10^3/uL (130-400); RED BLOOD COUNT 3.04 10^6/uL (4.35-5.85); RED CELL DISTRIBUTION WIDTH 12.9 % (10.0-14.5); WHITE BLOOD COUNT 10.3 10^3/uL (4.3-11.0)
[2018-02-09 04:31] LABS: CALCIUM 8.5 MG/DL (8.5-10.1); CREATININE SERUM 1.41 MG/DL (0.60-1.30); MAGNESIUM 2.8 MG/DL (1.8-2.4); PHOSPHORUS 4.1 MG/DL (2.3-4.7); POTASSIUM 4.1 MMOL/L (3.6-5.0)
[2018-02-09] MEDS: MAGNESIUM 1 GM/100 ML IVPB 100 ML IV SCH (05:01)
[2018-02-09] MEDS: KCL 20 MEQ TAB (K-DUR) PO SCH (05:01)
[2018-02-09] MEDS: POTASSIUM CL 10MEQ/50ML IVPB 50 ML IV SCH (05:01)
[2018-02-09] MEDS: GLIMEPIRIDE 4 MG (AMARYL) TAB PO SCH (05:06)
[2018-02-09] MEDS: hydrALAZINE (APESOLINE) 20 MG/ML VIAL IV PRN (05:11)
--- NOTE | 2018-02-09 06:07 | Pulmonary Progress Note ---
Subjective Time Seen by Provider: 06:07 Subjective/Events-last exam PT is doing better. Off gtts however still Hypertensive. Sepsis Event Evaluation Height, Weight, BMI Height: 5'11.00" Weight: 310lbs. 0.0oz. 140.049239ke; 40.2 BMI Method:Stated Exam Exam Vital Signs Date Time Temp Pulse Resp B/P (MAP) Pulse Ox O2 Delivery O2 Flow Rate FiO2 02/09/18 05:00 92 14 192/91 (124) 93 Room Air 02/09/18 04:58 99.8 02/09/18 04:00 99.4 Room Air 02/09/18 04:00 90 12 171/83 (112) 92 Room Air 02/09/18 04:00 92 Room Air 02/09/18 03:20 90 16 181/96 (124) Nasal Cannula 2.00 02/09/18 03:00 90 16 92 Nasal Cannula 2.00 02/09/18 02:00 88 11 178/90 (119) 93 Nasal Cannula 2.00 02/09/18 01:22 84 02/09/18 01:00 83 12 177/98 (124) 92 Nasal Cannula 2.00 02/09/18 00:00 155/82 (106) 02/08/18 23:58 97.8 02/08/18 23:48 92 Room Air 02/08/18 23:00 91 9 93 Nasal Cannula 2.00 02/08/18 22:00 98 11 182/97 (125) 90 Nasal Cannula 2.00 02/08/18 21:22 93 Nasal Cannula 2.00 02/08/18 21:00 97 26 178/104 (128) 91 Nasal Cannula 2.00 02/08/18 20:00 95 Nasal Cannula 2.00 02/08/18 20:00 98 13 183/100 (127) 90 Nasal Cannula 2.00 02/08/18 20:00 98.8 02/08/18 19:17 98 02/08/18 19:00 96 11 183/101 (128) 94 Nasal Cannula 2.00 02/08/18 18:43 93 Nasal Cannula 2.00 02/08/18 18:00 98 13 191/108 (135) 93 Nasal Cannula 2.00 02/08/18 17:00 96 13 176/102 (126) 91 Nasal Cannula 2.00 02/08/18 16:05 90 Room Air 02/08/18 16:00 95 26 157/85 (109) 87 Nasal Cannula 2.00 02/08/18 15:21 99.1 02/08/18 15:00 92 27 157/85 (109) 90 Nasal Cannula 2.00 02/08/18 14:00 89 11 157/85 (109) 95 Nasal Cannula 2.00 02/08/18 13:00 88 02/08/18 13:00 88 13 157/85 (109) 87 Nasal Cannula 2.00 02/08/18 12:00 80 35 157/85 (109) 92 Nasal Cannula 2.00 02/08/18 11:48 92 Room Air 02/08/18 11:00 98 11 157/85 (109) 90 Nasal Cannula 2.00 02/08/18 10:07 98 Nasal Cannula 4.00 02/08/18 10:00 93 14 168/89 (115) 91 Nasal Cannula 2.00 02/08/18 09:00 89 19 175/87 (116) 92 Nasal Cannula 2.00 02/08/18 08:01 98 Nasal Cannula 2.00 02/08/18 08:01 97.2 Nasal Cannula 2.00 02/08/18 08:00 73 13 174/85 (114) 91 NIV CPAP 4.00 02/08/18 07:02 95 Nasal Cannula 4.00 02/08/18 07:00 71 02/08/18 06:45 73 13 171/97 (121) 91 NIV CPAP 4.00 02/08/18 06:30 68 10 161/91 (114) 98 NIV CPAP 4.00 02/08/18 06:15 68 14 168/96 (120) 98 NIV CPAP 4.00 I & O 02/09/18 07:00 Intake Total 2150 ml Output Total 5925 ml Balance -3775 ml Height & Weight Height: 5'11.00" Weight: 310lbs. 0.0oz. 140.801631ys; 40.2 BMI Method:Stated General Appearance: No Apparent Distress, WD/WN HEENT: Other (Pupils constricted does not respond to light) Neck: Normal Inspection Respiratory: Chest Non Tender, Lungs Clear, No Accessory Muscle Use, No Respiratory Distress Cardiovascular: Regular Rate, Rhythm, No Murmur Capillary Refill: Less Than 3 Seconds Gastrointestinal: non tender, soft Extremity: Other (patient sedated, wound CDI) Neurologic/Psychiatric: Other (responds to verbal stimulus, not oriented) Skin: Normal Color Lymphatic: No Adenopathy Results Lab Laboratory Tests 02/08/18 03:30 02/09/18 04:00 Assessment/Plan Assessment/Plan HX of cervical stenosis S/P C3-7 ACDF with C5 corpectomy Hypernatremia - D5W Psychosis/metabolic encephalopathy - -PRN Haldol and scheduled Risperdal -PRN Morphine Atelectasis -Increase activity -IS HTN -Monitor -Increase lopressor -Clonidine patch, Lisinopril Hypermag, Hyperphos -D/C multivitamin and MOM GABRIELLA -home CPAP. Leukocytosis - partially secondary to solumedrol UTI with sepsis and urinary retention - Zosyn (MRSA swab is negative) -repeat Manjarrez cultures - pending CKD with hyperkalemia and metabolic acidosis -continue to monitor Anemia - monitor Transfer to 4th floor with tele and continue to monitor close. JORGE GONZALEZ DO Feb 09, 2018 06:07
--- NOTE | 2018-02-09 07:04 | Progress Note (SOAP) ---
Subjective Time Seen by Provider: 06:50 Subjective/Events-last exam Patient stable but confused. Patient cannot answer questions. Patient hypertensive. GFR in the 50s Objective Exam Vital Signs Date Time Temp Pulse Resp B/P (MAP) Pulse Ox O2 Delivery O2 Flow Rate FiO2 02/09/18 06:00 96 14 186/92 (123) 97 Room Air 02/09/18 05:00 92 14 192/91 (124) 93 Room Air 02/09/18 04:58 99.8 02/09/18 04:00 99.4 Room Air 02/09/18 04:00 90 12 171/83 (112) 92 Room Air 02/09/18 04:00 92 Room Air 02/09/18 03:20 90 16 181/96 (124) Nasal Cannula 2.00 02/09/18 03:00 90 16 92 Nasal Cannula 2.00 02/09/18 02:00 88 11 178/90 (119) 93 Nasal Cannula 2.00 02/09/18 01:22 84 02/09/18 01:00 83 12 177/98 (124) 92 Nasal Cannula 2.00 02/09/18 00:00 155/82 (106) 02/08/18 23:58 97.8 02/08/18 23:48 92 Room Air 02/08/18 23:00 91 9 93 Nasal Cannula 2.00 02/08/18 22:00 98 11 182/97 (125) 90 Nasal Cannula 2.00 02/08/18 21:22 93 Nasal Cannula 2.00 02/08/18 21:00 97 26 178/104 (128) 91 Nasal Cannula 2.00 02/08/18 20:00 95 Nasal Cannula 2.00 02/08/18 20:00 98 13 183/100 (127) 90 Nasal Cannula 2.00 02/08/18 20:00 98.8 02/08/18 19:17 98 02/08/18 19:00 96 11 183/101 (128) 94 Nasal Cannula 2.00 02/08/18 18:43 93 Nasal Cannula 2.00 02/08/18 18:00 98 13 191/108 (135) 93 Nasal Cannula 2.00 02/08/18 17:00 96 13 176/102 (126) 91 Nasal Cannula 2.00 02/08/18 16:05 90 Room Air 02/08/18 16:00 95 26 157/85 (109) 87 Nasal Cannula 2.00 02/08/18 15:21 99.1 02/08/18 15:00 92 27 157/85 (109) 90 Nasal Cannula 2.00 02/08/18 14:00 89 11 157/85 (109) 95 Nasal Cannula 2.00 02/08/18 13:00 88 02/08/18 13:00 88 13 157/85 (109) 87 Nasal Cannula 2.00 02/08/18 12:00 80 35 157/85 (109) 92 Nasal Cannula 2.00 02/08/18 11:48 92 Room Air 02/08/18 11:00 98 11 157/85 (109) 90 Nasal Cannula 2.00 02/08/18 10:07 98 Nasal Cannula 4.00 02/08/18 10:00 93 14 168/89 (115) 91 Nasal Cannula 2.00 02/08/18 09:00 89 19 175/87 (116) 92 Nasal Cannula 2.00 02/08/18 08:01 98 Nasal Cannula 2.00 02/08/18 08:01 97.2 Nasal Cannula 2.00 02/08/18 08:00 73 13 174/85 (114) 91 NIV CPAP 4.00 I & O 02/09/18 07:00 Intake Total 2150 ml Output Total 5925 ml Balance -3775 ml Capillary Refill : Less Than 3 Seconds General Appearance: No Apparent Distress, WD/WN, Other (Confused) HEENT: Normal ENT Inspection Neck: Full Range of Motion Respiratory: Lungs Clear, No Accessory Muscle Use, No Respiratory Distress Cardiovascular: Regular Rate, Rhythm Gastrointestinal: non tender, soft Results Lab Laboratory Tests 02/09/18 04:00 Laboratory Tests 02/08/18 08:10: Glucometer 138H 02/08/18 11:40: Glucometer 146H 02/08/18 15:28: Glucometer 127H 02/08/18 21:00: Glucometer 153H 02/08/18 23:37: Glucometer 130H 02/09/18 03:57: Glucometer 126H 02/09/18 04:00: White Blood Count 10.3, Red Blood Count 3.04L, Hemoglobin 8.8L, Hematocrit 27L, Mean Corpuscular Volume 90, Mean Corpuscular Hemoglobin 29, Mean Corpuscular Hemoglobin Concent 32, Red Cell Distribution Width 12.9, Platelet Count 177, Mean Platelet Volume 10.2, Neutrophils (%) (Auto) 83H, Lymphocytes (%) (Auto) 8L , Monocytes (%) (Auto) 7, Eosinophils (%) (Auto) 2, Basophils (%) (Auto) 0, Neutrophils # (Auto) 8.6H, Lymphocytes # (Auto) 0.8L, Monocytes # (Auto) 0.7, Eosinophils # (Auto) 0.3, Basophils # (Auto) 0.0, Sodium Level 147H, Potassium Level 4.1, Chloride Level 110H, Carbon Dioxide Level 24, Anion Gap 13, Blood Urea Nitrogen 51H, Creatinine 1.41H, Estimat Glomerular Filtration Rate 53, BUN/ Creatinine Ratio 36, Glucose Level 132H, Calcium Level 8.5, Phosphorus Level 4.1 , Magnesium Level 2.8H 02/09/18 04:15: Stool Occult Blood Immunoassay POSITIVEH Microbiology 02/03/18 Blood Culture - Final, Complete No growth 01/31/18 Genital Culture - Final, Complete No growth 02/06/18 Mycobacterial Culture - Preliminary, Resulted 01/31/18 Urine Culture - Final, Complete NO GROWTH Assessment/Plan Assessment/Plan Assess & Plan/Chief Complaint Mild opacity. Cervical surgery. Diabetes. Coronary artery disease. Diabetic retinopathy. . 02/01/18. Myelopathy. Diabetes. Hyperkalemia. Coronary artery disease. Diabetes. Diabetic neuropathy. Confusion yesterday. Weakness yesterday. Failure 02/02/18. Myelopathy. Diabetes. Hypokalemia. Febrile. Leukocytosis. Renal insufficiency. Confusion at times... . 02/07/18. Recent surgery for cervical stenosis. Acute respiratory failure. Hypertension. Diabetes. GABRIELLA. Leukocytosis. UTI with sepsis. ckd improving . 02/03/18 myelopathy. Diabetes. Respiratory failure. Non-ST elevated [place]. Congestive heart failure. Renal insufficiency. Patient on ventilator. Patient anemic.. . 02/06/18. Patient on ventilator. Respiratory failure. Acute respiratory failure. Spinal stenosis stat post C3 to C7. Acute and chronic renal failure. Coronary artery disease. Diabetes. Hypertension. Hyperlipidemia. . 02/07/18. Patient agitated during the night. Patient seen yesterday but report not on the computer Patient stable. . 02/08/18. Patient rested comfortably during the night. Spinal stenosis. Renal failure improving. Coronary artery disease. Hypertension. Diabetes. Hyperlipidemia. Patient speaking slowly. Patient takes sense. Patient's pupils constricted.. . 02/09/18 patient confused today. Patient hypertensive. GFR in the 50s. Hyperlipidemia. Recent cervical stenosis surgery. Diabetes Clinical Quality Measures DVT/VTE Risk/Contraindication: Risk Factor Score Per Nursin RFS Level Per Nursing on Admit: 2=Moderate MARIIA SIM DO Feb 09, 2018 07:04
--- NOTE | 2018-02-09 07:50 | Cardiology Progress Note ---
Subjective Date Seen by Provider: Feb 09, 2018 Time Seen by Provider: 07:47 Subjective/Events-last exam Patient is in bed. Confused. Complaining of back pain Review of Systems General: No Chills, No Night Sweats; Fatigue, Malaise; No Appetite, No Other HEENT: No Head Aches, No Visual Changes, No Eye Pain, No Ear Pain, No Dysphasia , No Sinus Congestion, No Post Nasal Drip, No Sore Throat, No Other Pulmonary: Dyspnea; No Cough, No Pleuritic Chest Pain, No Other Cardiovascular: No: Chest Pain, Palpitations, Orthopnea, Paroxysmal Noc. Dyspnea, Edema, Lt Headedness, Other Objective-Cardiology Exam Last Set of Vital Signs Vital Signs 02/06/18 02/09/18 02/09/18 02/09/18 02/09/18 08:00 03:20 04:58 06:00 07:09 Temp 99.8 Pulse 96 Resp 14 B/P (MAP) 186/92 (123) Pulse Ox 98 O2 Delivery Room Air O2 Flow Rate 2.00 FiO2 30 Capillary Refill : Less Than 3 Seconds I&O Intake and Output 02/09/18 00:00 Intake Total 2800 ml Output Total 5125 ml Balance -2325 ml Intake Oral 900 ml IV Total 1900 ml Output Urine Total 5125 ml General: Alert, Cooperative, Mild Distress HEENT: Atraumatic, PERRLA Neck: Supple, No JVD, No Thyromegaly Lungs: Normal Air Movement, Other (bilateral rhonchi) Heart: Regular Rate, Normal S1, Normal S2, No Murmurs Abdomen: Normal Bowel Sounds, Soft, No Tenderness, No Hepatosplenomegaly, No Masses Extremities: No Clubbing, No Cyanosis, Normal Pulses, No Tenderness/Swelling Skin: No Rashes, No Breakdown, No Significant Lesion Neuro: Other (Sedated and lethargic) Results Lab Laboratory Tests 02/09/18 04:00 A/P-Cardiology Admission Diagnosis Acute respiratory failure Acute renal failure Coronary artery disease Spinal stenosis Assessment/Plan Status post respiratory failure, difficult intubation, extubated on February 06, 2018. Recovering slowly. Agitation, confusion, received Ativan and Precedex, lethargic, managed by Dr. Gao Pulmonary infiltrate, receiving antibiotic coverage. Managed by Dr. Gao Acute on chronic renal failure, improving slowly. Continue to monitor renal function Anemia, positive stool for occult blood, discontinue Plavix, continue on aspirin 81 mg and may stop it if needed Severe hypertension, difficult to achieve adequate control, on multiple medication, metoprolol was increased to 100 mg daily, continue on Norvasc 10 mg daily, receiving clonidine 0.1 mg twice daily and clonidine patch 0.1 mg in addition to when necessary hydralazine IV, restarted on lisinopril and we'll continue to monitor his potassium and renal function closely. Patient had chest pain initially during recovery from surgery, EKG and cardiac enzymes did not show any acute abnormality. Currently troponin is elevated probably secondary to prolonged hypoxemia. Underlying coronary artery disease cannot be entirely excluded. Spinal stenosis, status post C3-7 ACDF with C5 corpectomy done by Dr. Hardwick on January 30, 2018. Coronary artery disease, history of cardiac catheterization done by Dr. Longoria which showed mild nonobstructive disease repeat cardiac catheterization done in 2017 showing severe stenosis in the mid LAD successful stenting using Alpine 3.0 18 mm stent expanded to 3.25 mm with good results, mild to moderate disease in the proximal portion of the LAD, moderate disease in the distal circumflex artery, I stop Plavix due to the anemia and positive stool for occult blood. Continue on aspirin, may discontinue aspirin if needed Carotid artery stenosis-mild nonobstructive disease per carotid duplex done July 2017, continue to monitor Diabetes mellitus, managed by Dr. Younger. Diabetic neuropathy, followed and managed by Dr. Younger. Hyperlipidemia, intolerant to Lipitor with severe diarrhea, continue to monitor for now History of erectile dysfunction, most likely secondary to peripheral neuropathy. Lower extremity pain, likely secondary to neuropathy, patient underwent peripheral angiogram done February 09, 2016 revealing mild to moderate disease in the anterior tibial of the left lower extremity and posterior tibial at 60-70 percent. Anterior tibial with good flow down to the ankle on the left lower extremity, otherwise mild disease in the right lower extremity and abdominal aorta. Continue maximizing medical therapy Clinical Quality Measures DVT/VTE Risk/Contraindication: Risk Factor Score Per Nursin RFS Level Per Nursing on Admit: 2=Moderate KAREN YANG MD Feb 09, 2018 07:50
[2018-02-09] MEDS: PIPERACILLIN SODIUM/TAZOBACTAM 4.5 GM in D5W 100 ML IVPB 100 ML IV SCH (08:49)
[2018-02-09] MEDS: PANTOPRAZOLE 40 MG (PROTONIX) VIAL IV SCH (08:49)
[2018-02-09] MEDS: SENNOSIDES 8.6 MG (SENOKOT) TAB PO SCH ×2 (08:52→20:21)
[2018-02-09] MEDS: amLODIPine 10 MG (NORVASC) TAB PO SCH (08:53)
[2018-02-09] MEDS: risperiDONE 1 MG (RisperDAL) TAB PO SCH ×2 (08:53→20:21)
[2018-02-09] MEDS: meTOprolol TARTRATE 50 MG (LOPRESSOR) TAB PO SCH ×2 (08:53→20:21)
[2018-02-09] MEDS: ASPIRIN 81 MG CHEW (CHILDREN'S ASA) PO SCH (08:53)
[2018-02-09] MEDS: lisINopril 20 MG (PRINIVIL) TABLET PO SCH (08:53)
[2018-02-09] MEDS: cloNIDine 0.1 MG (CATAPRES) TAB PO SCH ×2 (08:53→20:21)
[2018-02-09] MEDS: ACETAMINOPHEN 325 MG TABLET PO PRN (08:53)
--- NOTE | 2018-02-09 09:04 | Diagnostic Imaging Report ---
Indication: Dyspnea. Compared study to 02/08/2018. Findings: Enlargement of the cardiac silhouette unchanged, poor inspiratory expansion with crowding of lung markings persist. No chidi consolidation, effusion or pneumothorax. Impression: Upper limits heart size with very poor inspiratory volume, otherwise negative. Dictated by: Dictated on workstation # [id number]
--- NOTE | 2018-02-09 11:04 | Physical Therapy Progress Note ---
Therapy Progress Note Patient is extremely letthargic and declined PT this a.m. PT will attempt later today. Patient continues to require a sitter due to confusion and agitation. 1 visit ref MARK RAMIREZ PT Feb 09, 2018 11:04
--- NOTE | 2018-02-09 11:57 | Physical Therapy Daily Note ---
PT Daily Note-Current Subjective Patient is a little more alert and agrees to PT. Pain Numeric Pain Scale: 5-Moderate Pain Location: Lower Location Body Site: Back Pain Description: Ache Comment: FLACC Mental Status Patient Orientation: Confused Attachments: Castillo Catheter, IV Transfers Functional [place] Measure 0=Not Assessed/NA 4=Minimal Assistance 1=Total Assistance 5=Supervision or Setup 2=Maximal Assistance 6=Modified [place] 3=Moderate Assistance 7=Complete IndependenceIRFPAI Quality Coding Scale 6 Independent with activity with or without an assistive device 5 Patient requires set up or clean up by helper. Patient completes activity by themselves 4 Supervision or touching assist (CGA). [place] provide cues , steadying assist 3 The helper provides less than half the effort to complete the activity 2 The helper provides more than half the effort to complete the activity 1 Dependent. The helper does all the effort to complete an activity 7 Patient refused to complete or attempt activity 9 The patient did not perform the activity before the current illness or injury 88 Not attempted due to Medical conditions or safety concerns Transfers (B, C, W/C) (FIM): 1 Scootin Rollin Supine to/from Sit: 1 patient required dependent assist to attain sitting EOB with minimal assist to maintain x 12 min (cervical brace on in sit position) Weight Bearing Right Lower Extremity: Right Full Weight Bearing Left Lower Extremity: Left Full Weight Bearing Exercises Supine Ex: Ankle pumps, Heel Slides, Straight leg raise Supine Reps: 10 (AAROM) Seated Therapy Exercises: Long arc quads Seated Reps: 15 (AAROM) Assessment Patient tolerated treatment, however, fatigued very quickly. BP is elevated during treatment as well. PT to increase activity as tolerated by patient. PT Short Term Goals Short Term Goals Time Frame: Feb 25, 2018 Gait (FIM): 6 Distance (FIM): 3=150 ft Gait Level of Assist: 6 Gait Assistive Device: FWW, Cane Single Point PT Plan Treatment/Plan Treatment Plan: Continue Plan of Care Treatment Plan: Bed Mobility, Concurrent Therapy, Education, Functional Activity Cody, Functional Strength, Gait, Safety, Therapeutic Exercise, Transfers Treatment Duration: Feb 25, 2018 Frequency: 6 times per week Estimated Hrs Per Day: .5 hour per day Patient and/or Family Agrees t: Yes Time/GCodes Time In: 1115 Time Out: 1138 Total Billed Treatment Time: 23 Total Billed Treatment 1 visit EX 11 min FA 12 min JAMES,MARK PT Feb 09, 2018 11:57
--- NOTE | 2018-02-09 14:02 | Occ Therapy Progress Note ---
Therapy Progress Note OT attempted to work with pt. Pt. has been moved to fourth floor, has a sitter. Pt. would open eyes a few times, but mainly kept them closed. Reported that he wanted to be left alone. Pt. is able to state that his name is Luisito, and that he has one son. Does not know where he is. Sitter reports that he did not eat very much of his food, and did not understand how to bring to his mouth. PT has just sat pt. on side of bed. Asked pt. if he would like to sit on side of bed again. Pt. reports, "no." Attempted to have pt. roll to side. Pt. keeps eyes closed and states, "no" again. Attempted to engage pt. in any activity. Pt. keeps eyes closed and unable to participate. Pt. encouraged and educated on importance of getting stronger. Pt. does not reply. Will continue to monitor this pt. and work with him as appropriate. [id number] No charge 1, visit RICHARD LING OT Feb 09, 2018 14:02
[2018-02-09] MEDS: GLIMEPIRIDE 2 MG (AMARYL) TAB PO SCH (17:00)
[2018-02-09] MEDS: LORATADINE (CLARITIN) 10 MG TAB PO SCH (17:00)
[2018-02-09] MEDS: PIPERACILLIN SODIUM/TAZOBACTAM 4.5 GM in NS (IVPB) 100 ML IV SCH ×2 (17:00→23:53)
[2018-02-09] MEDS: ROSUVASTATIN 5 MG (CRESTOR) TABLET PO SCH (20:21)
[2018-02-10] VITALS (10 sets, daily range): BP systolic 160–189; BP diastolic 74–95
[2018-02-10] MEDS: RT-ALBUTEROL/IPRATROPIUM 3 ML (DUONEB) VIAL INH SCH ×6 (03:18→23:23)
[2018-02-10] MEDS: hydrALAZINE (APESOLINE) 20 MG/ML VIAL IV PRN (03:24)
[2018-02-10] MEDS: GLIMEPIRIDE 4 MG (AMARYL) TAB PO SCH (05:44)
[2018-02-10] MEDS: D5W 1000 ML IV SOLUTION 1,000 ML IV SCH ×2 (06:26→18:16)
[2018-02-10] MEDS ORDERED: morphine INJ 4 MG/ML 1 ML (VIAL/SYRINGE) IVP PRN (07:30)
[2018-02-10] MEDS ORDERED: HALOPERIDOL 5 MG/ML (HALDOL) AMP IV PRN (07:30)
--- NOTE | 2018-02-10 07:32 | Pulmonary Progress Note ---
Subjective Time Seen by Provider: 07:56 Subjective/Events-last exam PT is sedate however will answer questions. Sepsis Event Evaluation Height, Weight, BMI Height: 5'11.00" Weight: 311lbs. 5.0oz. 141.808805zw; 40.2 BMI Method:Stated Exam Exam Vital Signs Date Time Temp Pulse Resp B/P (MAP) Pulse Ox O2 Delivery O2 Flow Rate FiO2 02/10/18 07:00 86 02/10/18 06:56 92 Room Air 02/10/18 05:46 172/82 (112) 02/10/18 04:28 99.9 83 19 188/95 (126) 94 Room Air 02/10/18 04:17 160/91 (114) 02/10/18 03:19 188/95 (126) 02/10/18 03:18 92 Room Air 02/10/18 01:00 83 02/10/18 00:08 98.5 75 19 168/74 (105) 94 Room Air 02/09/18 22:54 75 168/77 (107) 02/09/18 20:39 86 Room Air 02/09/18 20:19 99.5 90 16 194/86 (122) 93 Room Air 02/09/18 20:00 Room Air 02/09/18 19:00 89 02/09/18 16:02 99.3 87 16 174/84 (114) 94 02/09/18 15:40 94 Room Air 02/09/18 13:00 81 02/09/18 12:14 93 Room Air 02/09/18 12:00 99.0 83 20 124/57 (79) 90 Room Air 02/09/18 12:00 77 20 159/75 (103) 92 Room Air 02/09/18 11:00 16 164/78 (106) 90 Room Air 02/09/18 10:24 93 Room Air 02/09/18 10:00 102 16 190/111 (137) 94 Room Air 02/09/18 09:00 87 10 202/112 (142) 92 Room Air 02/09/18 08:00 101 18 158/90 (112) 91 Room Air 02/09/18 08:00 93 Room Air 02/09/18 08:00 97.5 I & O 02/10/18 07:00 Intake Total 940 ml Output Total 3000 ml Balance -2060 ml Height & Weight Height: 5'11.00" Weight: 311lbs. 5.0oz. 141.435064eo; 40.2 BMI Method:Stated General Appearance: No Apparent Distress, WD/WN, Other (Confused) HEENT: Normal ENT Inspection Neck: Full Range of Motion Respiratory: Lungs Clear, No Accessory Muscle Use, No Respiratory Distress Cardiovascular: Regular Rate, Rhythm Capillary Refill: Less Than 3 Seconds Gastrointestinal: non tender, soft Extremity: Other (patient sedated, wound CDI) Neurologic/Psychiatric: Other (responds to verbal stimulus, not oriented) Skin: Normal Color Lymphatic: No Adenopathy Results Lab Laboratory Tests 02/09/18 04:00 Assessment/Plan Assessment/Plan HX of cervical stenosis S/P C3-7 ACDF with C5 corpectomy Hypernatremia - D5W Psychosis/metabolic encephalopathy - -PRN Haldol and scheduled Risperdal -- Decrease dose to 0.25mg BID -PRN Morphine Atelectasis -Increase activity -IS GABRIELLA -home CPAP. Leukocytosis - partially secondary to solumedrol UTI with sepsis and urinary retention - Zosyn (MRSA swab is negative) -repeat Manjarrez cultures - pending CKD with hyperkalemia and metabolic acidosis -continue to monitor Anemia - monitor JORGE GONZALEZ DO Feb 10, 2018 07:32
--- NOTE | 2018-02-10 08:10 | Progress Note (SOAP) ---
Subjective Time Seen by Provider: 08:05 Subjective/Events-last exam Patient speaking better today. Patient still lethargic. Hypertension. Patient voices no complaints. Patient improving Objective Exam Vital Signs Date Time Temp Pulse Resp B/P (MAP) Pulse Ox O2 Delivery O2 Flow Rate FiO2 02/10/18 07:00 86 02/10/18 06:56 92 Room Air 02/10/18 05:46 172/82 (112) 02/10/18 04:28 99.9 83 19 188/95 (126) 94 Room Air 02/10/18 04:17 160/91 (114) 02/10/18 03:19 188/95 (126) 02/10/18 03:18 92 Room Air 02/10/18 01:00 83 02/10/18 00:08 98.5 75 19 168/74 (105) 94 Room Air 02/09/18 22:54 75 168/77 (107) 02/09/18 20:39 86 Room Air 02/09/18 20:19 99.5 90 16 194/86 (122) 93 Room Air 02/09/18 20:00 Room Air 02/09/18 19:00 89 02/09/18 16:02 99.3 87 16 174/84 (114) 94 02/09/18 15:40 94 Room Air 02/09/18 13:00 81 02/09/18 12:14 93 Room Air 02/09/18 12:00 99.0 83 20 124/57 (79) 90 Room Air 02/09/18 12:00 77 20 159/75 (103) 92 Room Air 02/09/18 11:00 16 164/78 (106) 90 Room Air 02/09/18 10:24 93 Room Air 02/09/18 10:00 102 16 190/111 (137) 94 Room Air 02/09/18 09:00 87 10 202/112 (142) 92 Room Air I & O 02/10/18 07:00 Intake Total 940 ml Output Total 3000 ml Balance -2060 ml Capillary Refill : Less Than 3 SecondsLess Than 3 Seconds General Appearance: No Apparent Distress HEENT: Normal ENT Inspection Neck: Normal Inspection Respiratory: Lungs Clear, No Accessory Muscle Use, No Respiratory Distress Cardiovascular: Regular Rate, Rhythm, No Murmur Gastrointestinal: non tender, soft Results Lab Laboratory Tests 02/09/18 13:00: Glucometer 196H 02/09/18 15:52: Glucometer 181H 02/09/18 19:56: Glucometer 196H 02/09/18 23:48: Glucometer 175H 02/10/18 04:09: Glucometer 184H Microbiology 02/03/18 Blood Culture - Final, Complete No growth 01/31/18 Genital Culture - Final, Complete No growth 02/06/18 Mycobacterial Culture - Preliminary, Resulted 01/31/18 Urine Culture - Final, Complete NO GROWTH Assessment/Plan Assessment/Plan Assess & Plan/Chief Complaint Mild opacity. Cervical surgery. Diabetes. Coronary artery disease. Diabetic retinopathy. . 02/01/18. Myelopathy. Diabetes. Hyperkalemia. Coronary artery disease. Diabetes. Diabetic neuropathy. Confusion yesterday. Weakness yesterday. Failure 02/02/18. Myelopathy. Diabetes. Hypokalemia. Febrile. Leukocytosis. Renal insufficiency. Confusion at times... . 02/07/18. Recent surgery for cervical stenosis. Acute respiratory failure. Hypertension. Diabetes. GABRIELLA. Leukocytosis. UTI with sepsis. ckd improving . 02/03/18 myelopathy. Diabetes. Respiratory failure. Non-ST elevated DE. Congestive heart failure. Renal insufficiency. Patient on ventilator. Patient anemic.. . 02/06/18. Patient on ventilator. Respiratory failure. Acute respiratory failure. Spinal stenosis stat post C3 to C7. Acute and chronic renal failure. Coronary artery disease. Diabetes. Hypertension. Hyperlipidemia. . 02/07/18. Patient agitated during the night. Patient seen yesterday but report not on the computer Patient stable. . 02/08/18. Patient rested comfortably during the night. Spinal stenosis. Renal failure improving. Coronary artery disease. Hypertension. Diabetes. Hyperlipidemia. Patient speaking slowly. Patient takes sense. Patient's pupils constricted.. . 02/09/18 patient confused today. Patient hypertensive. GFR in the 50s. Hyperlipidemia. Recent cervical stenosis surgery. Diabetes. . 02/10/18. Patient has less confusion today. Patient lethargic. Patient talking slowly. Hyperlipidemia. Diabetes. Recent cervical stenosis surgery. Clinical Quality Measures DVT/VTE Risk/Contraindication: Risk Factor Score Per Nursin RFS Level Per Nursing on Admit: 2=Moderate MARIIA SIM DO Feb 10, 2018 08:10
[2018-02-10] MEDS: PANTOPRAZOLE 40 MG (PROTONIX) VIAL IV SCH (08:35)
[2018-02-10] MEDS: PIPERACILLIN SODIUM/TAZOBACTAM 4.5 GM in NS (IVPB) 100 ML IV SCH (08:35)
[2018-02-10] MEDS: SENNOSIDES 8.6 MG (SENOKOT) TAB PO SCH ×2 (08:35→20:29)
[2018-02-10] MEDS: cloNIDine 0.1 MG (CATAPRES) TAB PO SCH ×2 (08:35→20:29)
[2018-02-10] MEDS: lisINopril 20 MG (PRINIVIL) TABLET PO SCH (08:35)
[2018-02-10] MEDS: risperiDONE 0.25 MG (RisperDAL) TAB PO SCH ×2 (08:36→20:29)
[2018-02-10] MEDS: amLODIPine 10 MG (NORVASC) TAB PO SCH (08:36)
[2018-02-10] MEDS: ASPIRIN 81 MG CHEW (CHILDREN'S ASA) PO SCH (08:36)
[2018-02-10] MEDS: meTOprolol TARTRATE 50 MG (LOPRESSOR) TAB PO SCH ×2 (08:36→20:29)
--- NOTE | 2018-02-10 09:46 | Progress Note-Cardiology ---
Cardiology SOAP Progress Note Subjective: Lethargic. Awakens easily. Responses are appropriate. No c/o CP or SOB Objective: I&O/Vital Signs 02/10/18 02/10/18 02/10/18 02/10/18 05:46 06:56 07:00 08:00 Pulse 86 B/P (MAP) 172/82 (112) Pulse Ox 92 O2 Delivery Room Air Room Air 02/10/18 02/10/18 02/10/18 02/10/18 08:00 09:45 10:59 11:58 Temp 99.8 99.8 99.3 Pulse 88 93 75 Resp 16 19 18 B/P (MAP) 189/89 (122) 180/80 (113) 173/83 (113) Pulse Ox 90 88 95 O2 Delivery Room Air Room Air Nasal Cannula O2 Flow Rate 2.00 02/10/18 02/10/18 12:00 13:00 Pulse 85 Pulse Ox 95 O2 Delivery Nasal Cannula O2 Flow Rate 2.00 02/10/18 00:00 Intake Total 540 ml Output Total 1600 ml Balance -1060 ml Weight (Pounds): 311 Weight (Ounces): 5.0 Weight (Calculated Kilograms): 141.844839 Constitutional: No apparent distress; other (Lethargic, easily awakens, appropriate responses) Respiratory: other (good bilat air entry, diminished at the bases) Cardiovascular: regular rate-rhythm, S1 and S2, systolic murmur (soft KYLE at card base) Gastrointestional: soft; No guarding, No rebound; audible bowel sounds Extremities: swelling (mild to mod LE and UE swelling); No clubbing, No cyanosis Neurologic/Psychiatric: grossly intact Skin: No rash on exposed areas, No ulcerations on exposed areas Results/Procedures: Labs Laboratory Tests 02/09/18 19:56: Glucometer 196H 02/09/18 23:48: Glucometer 175H 02/10/18 04:09: Glucometer 184H 02/10/18 08:32: Glucometer 166H 02/10/18 10:55: White Blood Count 11.5H, Red Blood Count 3.17L, Hemoglobin 9.0L, Hematocrit 28L , Mean Corpuscular Volume 90, Mean Corpuscular Hemoglobin 28, Mean Corpuscular Hemoglobin Concent 32, Red Cell Distribution Width 13.1, Platelet Count 165, Mean Platelet Volume 10.2, Neutrophils (%) (Auto) 83H, Lymphocytes (%) (Auto) 7L , Monocytes (%) (Auto) 7, Eosinophils (%) (Auto) 3, Basophils (%) (Auto) 0, Neutrophils # (Auto) 9.6H, Lymphocytes # (Auto) 0.8L, Monocytes # (Auto) 0.8, Eosinophils # (Auto) 0.4H, Basophils # (Auto) 0.0, Neutrophils % (Manual) 81, Lymphocytes % (Manual) 9, Monocytes % (Manual) 7, Eosinophils % (Manual) 3, Basophils % (Manual) 0, Band Neutrophils 0, Blood Morphology Comment NORMAL, Sodium Level 146H, Potassium Level 4.0, Chloride Level 111H, Carbon Dioxide Level 27, Anion Gap 8, Blood Urea Nitrogen 42H, Creatinine 1.42H, Estimat Glomerular Filtration Rate 52, BUN/Creatinine Ratio 30, Glucose Level 169H, Calcium Level 8.5, Phosphorus Level 3.4, Magnesium Level 2.7H, B-Type Natriuretic Peptide 1273.8H 02/10/18 12:09: Glucometer 168H Microbiology 02/03/18 Blood Culture - Final, Complete No growth 01/31/18 Genital Culture - Final, Complete No growth 02/06/18 Mycobacterial Culture - Preliminary, Resulted 01/31/18 Urine Culture - Final, Complete NO GROWTH Laboratory Tests 02/09/18 04:00 02/10/18 10:55 A/P: Assessment: Spinal stenosis, status post C3-7 ACDF with C5 corpectomy done by Dr. Hardwick Acute respiratory failure, difficult intubation required multiple attempts, currently off ventilator, managed by Dr. Gao Hypertension, not well controlled Mild troponin elevation during this hosp, probably related to prolonged hypoxia Acute on chronic renal failure Status post fever and leukocytosis, systemic infection suspected and managed by the Med and ICU Svces Coronary artery disease: Card cath in Jun 2017 showed significant mid LAD stenosis that was stented with [place] 3.018 mm sten, mild to moderate disease in the proximal portion of the LAD, moderate disease in the distal circumflex artery. Carotid artery stenosis-mild nonobstructive disease per carotid duplex done July 2017, Diabetes mellitus II, managed by Dr. Younger. Diabetic neuropathy, followed and managed by Dr. Younger. Hyperlipidemia, intolerant to Lipitor with severe diarrhea Plan: * Uncontrolled HTN - Metoprolol was increased to 100 mg daily, continue on Norvasc 10 mg daily, receiving clonidine 0.1 mg twice daily and clonidine patch 0.1 mg in addition to when necessary hydralazine IV. Lisinopril recently restarted per Dr. Perez * Plavix stopped per Dr. Perez due to the anemia and positive stool for occult blood. * Continue on aspirin at this time * H/H somewhat improved from yesterday * Monitor lab closely Physician Assessment Physician Assessment Somnolent but awakens. Does not report cp or palp or syncope or shortness of breath Lungs: dec bs at bases Cor: reg Ext: mild to mod pitting and nonpitting leg edema A&R * As documented in our note above that I updated (italics) and as noted below * Adjust bp meds as necessary * Follow labs AMIRA TAO [employer]ERAL GREETER Feb 10, 2018 09:45 LORAINE POST MD FACP FAC CCDS Feb 10, 2018 17:19
[2018-02-10 11:01] LABS: BASOPHILS % (AUTO) 0 % (0-10); EOSINOPHILS # (AUTO) 0.4 10^3/uL (0.0-0.3); EOSINOPHILS % (AUTO) 3 % (0-10); HEMATOCRIT 28 % (40-54); LYMPHOCYTES # (AUTO) 0.8 X 10^3 (1.0-4.0); LYMPHOCYTES % (AUTO) 7 % (12-44); MEAN CORPUSCULAR HEMOGLOBIN 28 PG (25-34); MEAN CORPUSCULAR HGB CONC 32 G/DL (32-36); MEAN CORPUSCULAR VOLUME 90 FL (80-99); MEAN PLATELET VOLUME 10.2 FL (7.4-10.4); MONOCYTES # (AUTO) 0.8 X 10^3 (0.0-1.0); MONOCYTES % (AUTO) 7 % (0-12); NEUTROPHILS # (AUTO) 9.6 X 10^3 (1.8-7.8); NEUTROPHILS % (AUTO) 83 % (42-75); PLATELET COUNT 165 10^3/uL (130-400); RED BLOOD COUNT 3.17 10^6/uL (4.35-5.85); RED CELL DISTRIBUTION WIDTH 13.1 % (10.0-14.5); WHITE BLOOD COUNT 11.5 10^3/uL (4.3-11.0)
[2018-02-10 11:20] LABS: CALCIUM 8.5 MG/DL (8.5-10.1); CREATININE SERUM 1.42 MG/DL (0.60-1.30); MAGNESIUM 2.7 MG/DL (1.8-2.4); PHOSPHORUS 3.4 MG/DL (2.3-4.7)
[2018-02-10 11:50] LABS: BAND NEUTROPHILS 0 %; BASOPHILS % (MANUAL) 0 %; EOSINOPHILS % (MANUAL) 3 %; LYMPHOCYTES % (MANUAL) 9 %; MONOCYTES % (MANUAL) 7 %; NEUTROPHILS % (MANUAL) 81 %; RBC MORPH NORMAL
--- NOTE | 2018-02-10 11:50 | Physical Therapy Daily Note ---
PT Daily Note-Current Subjective Patient is extremely lethargic. Pain Numeric Pain Scale: 0-No Pain Location: No Pain Reported Mental Status Patient Orientation: Confused, Listless Attachments: Castillo Catheter, IV Transfers Functional [place] Measure 0=Not Assessed/NA 4=Minimal Assistance 1=Total Assistance 5=Supervision or Setup 2=Maximal Assistance 6=Modified [place] 3=Moderate Assistance 7=Complete IndependenceIRFPAI Quality Coding Scale 6 Independent with activity with or without an assistive device 5 Patient requires set up or clean up by helper. Patient completes activity by themselves 4 Supervision or touching assist (CGA). [place] provide cues , steadying assist 3 The helper provides less than half the effort to complete the activity 2 The helper provides more than half the effort to complete the activity 1 Dependent. The helper does all the effort to complete an activity 7 Patient refused to complete or attempt activity 9 The patient did not perform the activity before the current illness or injury 88 Not attempted due to Medical conditions or safety concerns Transfers (B, C, W/C) (FIM): 1 Scootin Rollin Supine to/from Sit: 1 Bed to/from Chair: 1 patient sat EOB x 23 min with minimal assist to maintain due to weakness and lethargy/patient transferred to recliner with Juan José Weight Bearing Right Lower Extremity: Right Full Weight Bearing Left Lower Extremity: Left Full Weight Bearing Exercises Seated Therapy Exercises: Long arc quads Seated Reps: 25 (AAROM) Assessment Patient requires dependent assist with all mobility. He continues to present with extreme lethargy and confusion. PT Short Term Goals Short Term Goals Time Frame: Feb 25, 2018 Gait (FIM): 6 Distance (FIM): 3=150 ft Gait Level of Assist: 6 Gait Assistive Device: FWW, Cane Single Point PT Plan Treatment/Plan Treatment Plan: Continue Plan of Care Treatment Plan: Bed Mobility, Concurrent Therapy, Education, Functional Activity [place], Functional Strength, Gait, Safety, Therapeutic Exercise, Transfers Treatment Duration: Feb 25, 2018 Frequency: 6 times per week Estimated Hrs Per Day: .5 hour per day Patient and/or Family Agrees t: Yes Time/GCodes Time In: 1005 Time Out: 1045 Total Billed Treatment Time: 35 Total Billed Treatment 1 visit FA x 3 40 min MARK RAMIREZ PT Feb 10, 2018 11:50
--- NOTE | 2018-02-10 13:49 | Occ Therapy Progress Note ---
Therapy Progress Note Attempted OT treatment at 1330. RN states pt is very fatigued from being up in chair this morning, but okay to attempt therapy. Pt asleep in bed, very lethargic. Pt opens eyes briefly after multiple attempts to wake him, but unable to maintain. Pt does respond minimally to simple questions. Pt states he is "tired" and declines to participate in activity at this time. Will continue to monitor and attempt to complete therapeutic activity as pt able to participate and tolerate. 1, visit BRENT COLLAZO OT Feb 10, 2018 13:49
[2018-02-10] MEDS ORDERED: diphenhydrAMINE 25 MG TAB (BENADRYL) PO PRN (17:30)
[2018-02-10] MEDS: LORATADINE (CLARITIN) 10 MG TAB PO SCH (17:31)
[2018-02-10] MEDS: GLIMEPIRIDE 2 MG (AMARYL) TAB PO SCH (17:31)
[2018-02-10] MEDS: ROSUVASTATIN 5 MG (CRESTOR) TABLET PO SCH (20:29)
[2018-02-11] VITALS (7 sets, daily range): BP systolic 135–184; BP diastolic 66–90
[2018-02-11] MEDS: hydrALAZINE (APESOLINE) 20 MG/ML VIAL IV PRN (00:27)
[2018-02-11] MEDS: RT-ALBUTEROL/IPRATROPIUM 3 ML (DUONEB) VIAL INH SCH ×6 (02:32→22:57)
[2018-02-11 05:17] LABS: BASOPHILS % (AUTO) 0 % (0-10); EOSINOPHILS # (AUTO) 0.4 10^3/uL (0.0-0.3); EOSINOPHILS % (AUTO) 4 % (0-10); HEMATOCRIT 27 % (40-54); HEMOGLOBIN 8.7 G/DL (13.3-17.7); LYMPHOCYTES # (AUTO) 0.9 X 10^3 (1.0-4.0); LYMPHOCYTES % (AUTO) 8 % (12-44); MEAN CORPUSCULAR HEMOGLOBIN 29 PG (25-34); MEAN CORPUSCULAR HGB CONC 33 G/DL (32-36); MEAN CORPUSCULAR VOLUME 89 FL (80-99); MEAN PLATELET VOLUME 10.5 FL (7.4-10.4); MONOCYTES # (AUTO) 0.9 X 10^3 (0.0-1.0); MONOCYTES % (AUTO) 8 % (0-12); NEUTROPHILS # (AUTO) 9.5 X 10^3 (1.8-7.8); NEUTROPHILS % (AUTO) 81 % (42-75); PLATELET COUNT 141 10^3/uL (130-400); RED BLOOD COUNT 2.98 10^6/uL (4.35-5.85); RED CELL DISTRIBUTION WIDTH 12.5 % (10.0-14.5); WHITE BLOOD COUNT 11.7 10^3/uL (4.3-11.0)
[2018-02-11 05:46] LABS: BUN/CREATININE RATIO 28; CALCIUM 8.4 MG/DL (8.5-10.1); CARBON DIOXIDE 22 MMOL/L (21-32); CHLORIDE 112 MMOL/L (98-107); CREATININE SERUM 1.25 MG/DL (0.60-1.30); GFR ESTIMATED > 60; GLUCOSE 164 MG/DL (70-105); MAGNESIUM 2.4 MG/DL (1.8-2.4); SODIUM 146 MMOL/L (135-145)
[2018-02-11] MEDS: GLIMEPIRIDE 4 MG (AMARYL) TAB PO SCH (06:16)
[2018-02-11 06:21] LABS: ALBUMIN 2.8 GM/DL (3.2-4.5); BILIRUBIN,TOTAL 0.7 MG/DL (0.1-1.0); CALCIUM 8.4 MG/DL (8.5-10.1); CREATININE SERUM 1.27 MG/DL (0.60-1.30); TOTAL PROTEIN 4.9 GM/DL (6.4-8.2)
--- NOTE | 2018-02-11 06:47 | Pulmonary Progress Note ---
Subjective Time Seen by Provider: 06:46 Subjective/Events-last exam No complications noted. Sepsis Event Evaluation Height, Weight, BMI Height: 5'11.00" Weight: 301lbs. 3.0oz. 136.794417eo; 40.2 BMI Method:Stated Exam Exam Vital Signs Date Time Temp Pulse Resp B/P (MAP) Pulse Ox O2 Delivery O2 Flow Rate FiO2 02/11/18 04:19 98.7 87 16 174/86 (115) 93 Room Air 02/11/18 02:32 93 High Flow N/C 2.00 02/11/18 01:02 158/82 (107) 02/11/18 01:00 86 02/11/18 00:02 98.6 91 16 184/90 (121) 91 Room Air 02/10/18 23:23 92 High Flow N/C 2.00 02/10/18 20:00 99.8 101 16 181/89 (119) 96 Room Air 02/10/18 20:00 Room Air 02/10/18 19:00 84 02/10/18 18:51 92 High Flow N/C 2.00 02/10/18 16:00 99.1 87 16 177/78 (111) 95 Nasal Cannula 2.00 02/10/18 13:00 85 02/10/18 12:00 95 Nasal Cannula 2.00 02/10/18 11:58 99.3 75 18 173/83 (113) 95 Nasal Cannula 2.00 02/10/18 10:59 88 Room Air 02/10/18 09:45 99.8 93 19 180/80 (113) 02/10/18 08:00 99.8 88 16 189/89 (122) 90 Room Air 02/10/18 08:00 Room Air 02/10/18 07:00 86 02/10/18 06:56 92 Room Air I & O 02/11/18 07:00 Intake Total 2800 ml Output Total 3675 ml Balance -875 ml Height & Weight Height: 5'11.00" Weight: 301lbs. 3.0oz. 136.778617wn; 40.2 BMI Method:Stated General Appearance: No Apparent Distress HEENT: Normal ENT Inspection Neck: Normal Inspection Respiratory: Lungs Clear, No Accessory Muscle Use, No Respiratory Distress Cardiovascular: Regular Rate, Rhythm, No Murmur Capillary Refill: Less Than 3 Seconds Gastrointestinal: non tender, soft Extremity: Normal Capillary Refill, Normal Inspection, Normal Range of Motion, Other (patient sedated, wound CDI) Neurologic/Psychiatric: Alert, Other (responds to verbal stimulus, not oriented ) Skin: Normal Color Lymphatic: No Adenopathy Results Lab Laboratory Tests 02/10/18 10:55 02/11/18 05:05 Assessment/Plan Assessment/Plan HX of cervical stenosis S/P C3-7 ACDF with C5 corpectomy Hypernatremia - D5W Psychosis/metabolic encephalopathy - -PRN Haldol and scheduled Risperdal -- Decrease dose to 0.25mg BID -PRN Morphine Atelectasis -Increase activity -IS GABRIELLA -home CPAP. Leukocytosis - partially secondary to solumedrol UTI with sepsis and urinary retention - Zosyn (MRSA swab is negative) -repeat Manjarrez cultures - pending CKD with hyperkalemia and metabolic acidosis -continue to monitor Anemia - monitor JORGE GONZALEZ DO Feb 11, 2018 06:47
[2018-02-11] MEDS: PANTOPRAZOLE 40 MG (PROTONIX) VIAL IV SCH (07:50)
[2018-02-11] MEDS: cloNIDine 0.1 MG (CATAPRES) TAB PO SCH ×2 (07:50→20:39)
[2018-02-11] MEDS: lisINopril 20 MG (PRINIVIL) TABLET PO SCH (07:51)
[2018-02-11] MEDS: meTOprolol TARTRATE 50 MG (LOPRESSOR) TAB PO SCH ×2 (07:51→20:39)
[2018-02-11] MEDS: risperiDONE 0.25 MG (RisperDAL) TAB PO SCH ×2 (07:51→20:39)
[2018-02-11] MEDS: ASPIRIN 81 MG CHEW (CHILDREN'S ASA) PO SCH (07:51)
[2018-02-11] MEDS: SENNOSIDES 8.6 MG (SENOKOT) TAB PO SCH ×2 (07:51→20:39)
[2018-02-11] MEDS: amLODIPine 10 MG (NORVASC) TAB PO SCH (07:51)
--- NOTE | 2018-02-11 10:59 | Progress Note-Hospitalist ---
Subjective HPI/CC On Admission Date Seen by Provider: Feb 11, 2018 Time Seen by Provider: 10:30 Subjective/Events-last exam Patient improved overall but such slow recovery he will definitely need some sort of facility at DC since he is 4 person assist Pt lethargic but improved and overall communicating better with family Patient with multiple medical issues giving rise to significant decline since operation Diabetes remains OOC as he has had in the past No pain is reported Rash improved since abx DC Review of Systems General: Malaise Neurological: Confusion Objective Exam Vital Signs Vital Signs Date Time Temp Pulse Resp B/P (MAP) Pulse Ox O2 Delivery O2 Flow Rate FiO2 02/11/18 14:42 92 Room Air 02/11/18 13:00 77 02/11/18 12:05 99.1 16 135/66 (89) 02/11/18 08:00 2.00 02/06/18 08:00 30 Capillary Refill : Less Than 3 SecondsLess Than 3 Seconds General Appearance: No Apparent Distress, WD/WN, Chronically ill, Obese Respiratory: Lungs Clear, Normal Breath Sounds Cardiovascular: Regular Rate, Rhythm, No Edema Neurologic/Psychiatric: Alert, Disoriented Skin: Normal Color, Warm/Dry Results/Procedures Lab Laboratory Tests 02/11/18 05:05 Patient resulted labs reviewed. Assessment/Plan Assessment and Plan Assess & Plan/Chief Complaint Respiratory failure now VDRF ARF DM s/p UTI Rash from Zosyn? Sever debility from ICU stay s/o intubation Plan: Continue supportive care Monitor creatinine closely Critical Care Critical Care: Critically Ill Patient Diagnosis/Problems Diagnosis/Problems (1) Respiratory failure Status: Resolved Qualifiers: Chronicity: acute Respiratory failure complication: unspecified whether with hypoxia or hypercapnia Qualified Codes: J96.00 - Acute respiratory failure, unspecified whether with hypoxia or hypercapnia (2) UTI (urinary tract infection) Status: Resolved Qualifiers: Urinary tract infection type: acute cystitis Hematuria presence: without hematuria Qualified Codes: N30.00 - Acute cystitis without hematuria (3) Urinary retention Status: Acute (4) Renal failure Status: Resolved Qualifiers: Renal failure chronicity: acute Acute renal failure type: unspecified Qualified Codes: N17.9 - Acute kidney failure, unspecified (5) Cervical myelopathy Status: Chronic (6) Uncontrolled diabetes mellitus Status: Chronic Qualifiers: Diabetes mellitus type: type 2 (7) Disuse atrophy of muscle Status: Acute (8) Weakness acquired in ICU Status: Acute (9) Anemia Status: Chronic Qualifiers: Anemia type: unspecified type Qualified Codes: D64.9 - Anemia, unspecified Clinical Quality Measures DVT/VTE Risk/Contraindication: Risk Factor Score Per Nursin RFS Level Per Nursing on Admit: 2=Moderate JULY MIJARES DO Feb 11, 2018 10:59
--- NOTE | 2018-02-11 11:16 | Physical Therapy Daily Note ---
PT Daily Note-Current Subjective Pt is lethargic, but able to answer questions during transfer. Transfers Functional [place] Measure 0=Not Assessed/NA 4=Minimal Assistance 1=Total Assistance 5=Supervision or Setup 2=Maximal Assistance 6=Modified [place] 3=Moderate Assistance 7=Complete IndependenceIRFPAI Quality Coding Scale 6 Independent with activity with or without an assistive device 5 Patient requires set up or clean up by helper. Patient completes activity by themselves 4 Supervision or touching assist (CGA). [place] provide cues , steadying assist 3 The helper provides less than half the effort to complete the activity 2 The helper provides more than half the effort to complete the activity 1 Dependent. The helper does all the effort to complete an activity 7 Patient refused to complete or attempt activity 9 The patient did not perform the activity before the current illness or injury 88 Not attempted due to Medical conditions or safety concerns Transfers (B, C, W/C) (FIM): 1 Weight Bearing Right Lower Extremity: Right Full Weight Bearing Left Lower Extremity: Left Full Weight Bearing Treatments Performed maurizio lift transfer from bed to shower chair. Pt being prepped for treatment with OT for bathing. Assessment Pt is not able to self right or maintain sitting without total assist. PT Short Term Goals Short Term Goals Time Frame: Feb 25, 2018 Gait (FIM): 6 Distance (FIM): 3=150 ft Gait Level of Assist: 6 Gait Assistive Device: FWW, Cane Single Point PT Plan Treatment/Plan Treatment Plan: Continue Plan of Care Treatment Plan: Bed Mobility, Concurrent Therapy, Education, Functional Activity Cody, Functional Strength, Gait, Safety, Therapeutic Exercise, Transfers Treatment Duration: Feb 25, 2018 Frequency: 6 times per week Estimated Hrs Per Day: .5 hour per day Patient and/or Family Agrees t: Yes Time/GCodes Time In: 1030 Time Out: 1043 Total Billed Treatment Time: 13 Total Billed Treatment 1, fa 13 GENARO JIANG PT Feb 11, 2018 11:16
--- NOTE | 2018-02-11 12:12 | Occupational Therapy Eval ---
OT Evaluation-General/PLF Medical Diagnosis Admission Date Jan 30, 2018 at 11:15 Medical Diagnosis: myelopathy Onset Date: Jan 30, 2018 Therapy Diagnosis Therapy Diagnosis: Weakness Height/Weight Height (Feet): 5 Height (Inches): 11.00 Weight (Pounds): 301 Weight (Ounces): 3.0 Precautions Precautions/Isolations: Fall Prevention, Standard Precautions, Pressure Ulcer Safety Interventions: Bed Exit Alarm Weight Bear Status Weight Bearing Restriction: Weight Bearing/Tolerated Referral Physician: Ronen Referral Reason: Activity Tolerance, Self Care, Evaluation/Treatment, Strengthening/ROM Medical History Pertinent Medical History: Arthritis, CAD, DM, Heart Failure, HTN, Neuropathy, PVD Current History Pt. had cervical surgery. Transferred to ICU due to decrease in medical condition and intubated on 02/03/18. On vent and then sedated after extubation for agitation. Pt. has been lethargic and unable to participate in OT until today. Reviewed History: Yes Social History Home: Single Level Current Living Status: Alone (16 year old son lives there paint department supervisor) Pt. is unable to give concrete answers regarding home set up. ADL-Prior Level of Function ADL PLOF Comments Pt. is unable to state but apparently was independent with all ADLs. DME/Equipment Comments Pt. unable to state what equipment if any that he had. OT Current Status Subjective Pt. yells out with pain when being transferred with maurizio, but does not give a pain number. Nursing in room at this time. Appearance Pt. is more talkative today. Keeps eyes closed through most of treatment. Mental Status/Objective Patient Orientation: Unable to Assess Attachments: Castillo Catheter, IV Current Glasses/Contacts: Yes Upper Extremity ROM Pt. is unable to demonstrate ROM actively. Edema: Pt. has edema in bilateral hands and arms. ADL-Treatment Functional [place] Measure 0=Not Assessed/NA 4=Minimal Assistance 1=Total Assistance 5=Supervision or Setup 2=Maximal Assistance 6=Modified [place] 3=Moderate Assistance 7=Complete IndependenceIRFPAI Quality Coding Scale 6 Independent with activity with or without an assistive device 5 Patient requires set up or clean up by helper. Patient completes activity by themselves 4 Supervision or touching assist (CGA). [place] provide cues , steadying assist 3 The helper provides less than half the effort to complete the activity 2 The helper provides more than half the effort to complete the activity 1 Dependent. The helper does all the effort to complete an activity 7 Patient refused to complete or attempt activity 9 The patient did not perform the activity before the current illness or injury 88 Not attempted due to Medical conditions or safety concerns Bathing (FIM): 1 Lower Body Dressing (FIM): 1 Transfers (B, C, W/C) (FIM): 1 Shower Transfer (FIM): 1 Other Treatments OT and PT briefly co-treated, along with nursing assistance, to transfer pt. via maurizio lift to shower chair. PT focused on posture and positioning in chair while OT guided feet and lift. Overall, pt. required assistance of 4 people to safely transfer him into chair. Pt. unable to hold self upright in chair due to poor core strength. Positioned pt. with gait belt for safety. OT and nursing staff took pt. to large shower. Pt. encouraged to do what he could, but would only "dab" at face with washcloth. Pt. required full dependent assistance to wash all parts. Went back to room via shower chair and transferred back to bed via maurizio. All needs met in room. Education OT Patient Education: Correct positioning, Modified ADL techniques, Progress toward Goal/Update tx plan, Purpose of tx/functional activities, Reviewed precautions, Rehab process, Transfer techniques, Use of adapted equipment Teaching Recipient: Patient Teaching Methods: Demonstration, Discussion Response to Teaching: Verbalize Understanding OT Short Term Goals Short Term Goals Time Frame: Feb 18, 2018 Eating(FIM): 4 Grooming(FIM): 4 Upper Body Dressing(FIM): 3 Transfers (B,C,W/C) (FIM): 2 Additional Short Term Goals: 1-Demonstrate ADL Tasks, 2-Verbalize Understanding , 3-ImproveStrength/[place]ody 1=Demonstrate adherence to instructed precautions during ADL tasks. 2=Patient will verbalize/demonstrate understanding of assistive devices/ modifications for ADL. 3=Patient will improve strength/tolerance for activity to enable patient to perform ADL's. OT Neonatal Specialist Goals Mcfp Goals Time Frame: Mar 04, 2018 Eating (FIM): 5 Grooming(FIM): 5 Bathing(FIM): 5 Upper Body Dressing(FIM): 5 Lower Body Dressing(FIM): 4 Toileting(FIM): 4 Transfers (B,C,W/C) (FIM): 4 Toilet/Commode Transfer(FIM): 4 Additional Goals: 1-Demonstrate ADL Tasks, 2-Verbalize Understanding, 3- ImproveStrength/Cody 1=Demonstrate adherence to instructed precautions during ADL tasks. 2=Patient will verbalize/demonstrate understanding of assistive devices/ modifications for ADL. 3=Patient will improve strength/tolerance for activity to enable patient to perform ADL's. OT Education/Plan Problem List/Assessment Assessment: Decreased Activ Tolerance, Decreased Safety Aware, Decreased UE Strength, Dependent Transfers, Edema, Impaired Bed Mobility, Impaired Cognition , Impaired Coordination, Impaired Funct Balance, Impaired I ADL's, Impaired Self -Care Skills, Restricted Funct UE ROM Pt would benefit from skilled OT to increase his independence in basic self care to allow him to safely return home. Discharge Recommendations Plan/Recommendations: Continue POC Therapy D/C Recommendations: 24 hr Supervision Comment Equipment needs and discharge location to be determined. Treatment Plan/Plan of Care Treatment,Training & Education: Yes Patient would benefit from OT for education, treatment and training to promote independence in ADL's, mobility, safety and/or upper extremity function for ADL' s. Plan of Care: ADL Retraining, Functional Mobility, UE Funct Exercise/Act, UE Neuromus Re-Ed/Coord Treatment Duration: Feb 04, 2018 Frequency: 5 times per week Estimated Hrs Per Day: .5 hour per day Agreement: Yes Rehab Potential: Guarded Time/GCodes Start Time: 10:35 Stop Time: 11:05 Total Time Billed (hr/min): 30 Billed Treatment Time 1, EVH x 15minutes, ADL x 15minutes RICHARD LING OT Feb 11, 2018 12:12
--- NOTE | 2018-02-11 15:43 | Progress Note-Cardiology ---
Cardiology SOAP Progress Note Subjective: Somnolent but awakens and does not report any symptoms Objective: I&O/Vital Signs 02/11/18 02/11/18 02/11/18 02/11/18 04:19 07:00 07:21 08:00 Temp 98.7 Pulse 87 85 Resp 16 B/P (MAP) 174/86 (115) Pulse Ox 93 92 94 O2 Delivery Room Air Room Air Nasal Cannula O2 Flow Rate 2.00 02/11/18 02/11/18 02/11/18 02/11/18 08:00 12:05 13:00 14:42 Temp 99.5 99.1 Pulse 62 62 77 Resp 16 16 B/P (MAP) 164/80 (108) 135/66 (89) Pulse Ox 91 95 92 O2 Delivery Room Air Room Air Room Air 02/11/18 00:00 Intake Total 2400 ml Output Total 2475 ml Balance -75 ml Weight (Pounds): 301 Weight (Ounces): 3.0 Weight (Calculated Kilograms): 136.565156 Constitutional: No apparent distress; other (Lethargic, easily awakens, appropriate responses) Respiratory: other (good bilat air entry, diminished at the bases) Cardiovascular: regular rate-rhythm, S1 and S2, systolic murmur (soft KYLE at card base) Gastrointestional: soft; No guarding, No rebound; audible bowel sounds Extremities: swelling (mild to mod LE and UE swelling); No clubbing, No cyanosis Neurologic/Psychiatric: grossly intact Skin: No rash on exposed areas, No ulcerations on exposed areas Results/Procedures: Labs Laboratory Tests 02/10/18 18:35: Glucometer 178H 02/10/18 21:45: Glucometer 177H 02/10/18 23:45: Glucometer 170H 02/11/18 03:54: Glucometer 177H 02/11/18 05:05: White Blood Count 11.7H, Red Blood Count 2.98L, Hemoglobin 8.7L, Hematocrit 27L , Mean Corpuscular Volume 89, Mean Corpuscular Hemoglobin 29, Mean Corpuscular Hemoglobin Concent 33, Red Cell Distribution Width 12.5, Platelet Count 141, Mean Platelet Volume 10.5H, Neutrophils (%) (Auto) 81H, Lymphocytes (%) (Auto) 8L, Monocytes (%) (Auto) 8, Eosinophils (%) (Auto) 4, Basophils (%) (Auto) 0, Neutrophils # (Auto) 9.5H, Lymphocytes # (Auto) 0.9L, Monocytes # (Auto) 0.9, Eosinophils # (Auto) 0.4H, Basophils # (Auto) 0.0, Sodium Level 145, Potassium Level 4.0, Chloride Level 111H, Carbon Dioxide Level 21, Anion Gap 13, Blood Urea Nitrogen 35H, Creatinine 1.27, Estimat Glomerular Filtration Rate 60, BUN/ Creatinine Ratio 28, Glucose Level 167H, Calcium Level 8.4L, Corrected Calcium 9.4, Phosphorus Level 3.6, Magnesium Level 2.4, Total Bilirubin 0.7, Aspartate Amino Transf (AST/SGOT) 16, Alanine Aminotransferase (ALT/SGPT) 23, Alkaline Phosphatase 65, Total Protein 4.9L, Albumin 2.8L 02/11/18 11:09: Glucometer 151H Microbiology 02/03/18 Blood Culture - Final, Complete No growth 01/31/18 Genital Culture - Final, Complete No growth 02/06/18 Mycobacterial Culture - Preliminary, Resulted 01/31/18 Urine Culture - Final, Complete NO GROWTH Laboratory Tests 02/10/18 10:55 02/11/18 05:05 A/P: Assessment: Spinal stenosis, status post C3-7 ACDF with C5 corpectomy done by Dr. Hardwick Acute respiratory failure, difficult intubation required multiple attempts, currently off ventilator, managed by Dr. Gao Hypertension, not well controlled Mild troponin elevation during this hosp, probably related to prolonged hypoxia Acute on chronic renal failure Status post fever and leukocytosis, systemic infection suspected and managed by the Med and ICU S[facility] Coronary artery disease: Card cath in Jun 2017 showed significant mid LAD stenosis that was stented with Alpine 3.018 mm sten, mild to moderate disease in the proximal portion of the LAD, moderate disease in the distal circumflex artery. Carotid artery stenosis-mild nonobstructive disease per carotid duplex done July 2017, Diabetes mellitus II, managed by Dr. Younger. Diabetic neuropathy, followed and managed by Dr. Younger. Hyperlipidemia, intolerant to Lipitor with severe diarrhea Plan: * Still very hypertensive. Add hydralazine * Plavix stopped per Dr. Perez due to the anemia and positive stool for occult blood. * Continue on aspirin at this time * Monitor lab closely LORAINE POST MD FACP FAC CCDS Feb 11, 2018 15:43
[2018-02-11] MEDS: D5W 1000 ML IV SOLUTION 1,000 ML IV SCH (18:22)
[2018-02-11] MEDS: LORATADINE (CLARITIN) 10 MG TAB PO SCH (18:25)
[2018-02-11] MEDS: GLIMEPIRIDE 2 MG (AMARYL) TAB PO SCH (18:25)
[2018-02-11] MEDS: hydrALAZINE (APRESOLINE) 25 MG TAB PO SCH (20:39)
[2018-02-11] MEDS: ROSUVASTATIN 5 MG (CRESTOR) TABLET PO SCH (20:39)
[2018-02-12] VITALS: BP 170/79
[2018-02-12] MEDS: RT-ALBUTEROL/IPRATROPIUM 3 ML (DUONEB) VIAL INH SCH ×4 (02:38→14:24)
[2018-02-12 04:00] VITALS: BP 192/91
[2018-02-12 05:26] LABS: BASOPHILS % (AUTO) 0 % (0-10); EOSINOPHILS # (AUTO) 0.4 10^3/uL (0.0-0.3); EOSINOPHILS % (AUTO) 4 % (0-10); HEMATOCRIT 27 % (40-54); HEMOGLOBIN 8.5 G/DL (13.3-17.7); LYMPHOCYTES % (AUTO) 10 % (12-44); MEAN CORPUSCULAR HEMOGLOBIN 28 PG (25-34); MEAN CORPUSCULAR HGB CONC 32 G/DL (32-36); MEAN CORPUSCULAR VOLUME 88 FL (80-99); MEAN PLATELET VOLUME 10.1 FL (7.4-10.4); MONOCYTES # (AUTO) 1.1 X 10^3 (0.0-1.0); MONOCYTES % (AUTO) 10 % (0-12); NEUTROPHILS # (AUTO) 7.8 X 10^3 (1.8-7.8); NEUTROPHILS % (AUTO) 76 % (42-75); PLATELET COUNT 138 10^3/uL (130-400); RED BLOOD COUNT 3.03 10^6/uL (4.35-5.85); RED CELL DISTRIBUTION WIDTH 12.6 % (10.0-14.5); WHITE BLOOD COUNT 10.3 10^3/uL (4.3-11.0)
[2018-02-12 05:48] LABS: BUN/CREATININE RATIO 25; CARBON DIOXIDE 24 MMOL/L (21-32); CHLORIDE 110 MMOL/L (98-107); CREATININE SERUM 1.19 MG/DL (0.60-1.30); GFR ESTIMATED > 60; GLUCOSE 169 MG/DL (70-105); MAGNESIUM 2.3 MG/DL (1.8-2.4); SODIUM 144 MMOL/L (135-145)
[2018-02-12] MEDS: GLIMEPIRIDE 4 MG (AMARYL) TAB PO SCH (06:09)
[2018-02-12 06:47] VITALS: BP 166/88
[2018-02-12 07:41] VITALS: BP 192/81
[2018-02-12] MEDS: PANTOPRAZOLE 40 MG (PROTONIX) VIAL IV SCH (08:01)
[2018-02-12] MEDS: cloNIDine 0.1 MG (CATAPRES) TAB PO SCH (08:01)
[2018-02-12] MEDS: lisINopril 20 MG (PRINIVIL) TABLET PO SCH (08:01)
[2018-02-12] MEDS: ASPIRIN 81 MG CHEW (CHILDREN'S ASA) PO SCH (08:01)
[2018-02-12] MEDS: risperiDONE 0.25 MG (RisperDAL) TAB PO SCH (08:01)
[2018-02-12] MEDS: SENNOSIDES 8.6 MG (SENOKOT) TAB PO SCH (08:01)
[2018-02-12] MEDS: meTOprolol TARTRATE 50 MG (LOPRESSOR) TAB PO SCH (08:01)
[2018-02-12] MEDS: amLODIPine 10 MG (NORVASC) TAB PO SCH (08:01)
[2018-02-12] MEDS: hydrALAZINE (APRESOLINE) 25 MG TAB PO SCH ×2 (08:01→13:12)
[2018-02-12 12:15] VITALS: BP 186/87
--- NOTE | 2018-02-12 12:50 | Progress Note-Hospitalist ---
Subjective HPI/CC On Admission Date Seen by Provider: Feb 12, 2018 Time Seen by Provider: 11:00 Subjective/Events-last exam Patient thinks he is going home soon Severe debility continues Drinking Ensure now Will place on Lovenox if okay with spine surgery for DVT prophylaxis in such slow recovery but symmetric risk for DVT Bowels are moving Review of Systems General: Fatigue Neurological: Confusion Objective Exam Vital Signs Vital Signs Date Time Temp Pulse Resp B/P (MAP) Pulse Ox O2 Delivery O2 Flow Rate FiO2 02/12/18 10:47 95 Nasal Cannula 2.00 02/12/18 07:41 98.6 88 20 192/81 (118) 02/06/18 08:00 30 Capillary Refill : Less Than 3 SecondsLess Than 3 Seconds General Appearance: No Apparent Distress, WD/WN, Chronically ill Respiratory: Lungs Clear, Normal Breath Sounds Cardiovascular: Regular Rate, Rhythm Extremity: Pedal Edema Neurologic/Psychiatric: Alert, Disoriented Results/Procedures Lab Laboratory Tests 02/12/18 05:15 Patient resulted labs reviewed. Assessment/Plan Assessment and Plan Assess & Plan/Chief Complaint Respiratory failure now VDRF ARF DM s/p UTI Rash from Zosyn? now resolving since DC abx Sever debility from ICU stay s/o intubation Plan: Continue supportive care Monitor creatinine closely Needs facility for rehab Lovenox if ok with spine service Critical Care Critical Care: Critically Ill Patient Diagnosis/Problems Diagnosis/Problems (1) Respiratory failure Status: Resolved Qualifiers: Chronicity: acute Respiratory failure complication: unspecified whether with hypoxia or hypercapnia Qualified Codes: J96.00 - Acute respiratory failure, unspecified whether with hypoxia or hypercapnia (2) UTI (urinary tract infection) Status: Resolved Qualifiers: Urinary tract infection type: acute cystitis Hematuria presence: without hematuria Qualified Codes: N30.00 - Acute cystitis without hematuria (3) Urinary retention Status: Acute (4) Renal failure Status: Resolved Qualifiers: Renal failure chronicity: acute Acute renal failure type: unspecified Qualified Codes: N17.9 - Acute kidney failure, unspecified (5) Cervical myelopathy Status: Chronic (6) Uncontrolled diabetes mellitus Status: Chronic Qualifiers: Diabetes mellitus type: type 2 (7) Disuse atrophy of muscle Status: Acute (8) Weakness acquired in ICU Status: Acute (9) Anemia Status: Chronic Qualifiers: Anemia type: unspecified type Qualified Codes: D64.9 - Anemia, unspecified Clinical Quality Measures DVT/VTE Risk/Contraindication: Risk Factor Score Per Nursin RFS Level Per Nursing on Admit: 2=Moderate JULY MIJARES DO Feb 12, 2018 12:50
[2018-02-12] MEDS ORDERED: ENOXAPARIN 40 MG/0.4 ML (LOVENOX) SYR SC SCH (13:00)
--- NOTE | 2018-02-12 15:59 | Progress Note-Cardiology ---
Cardiology SOAP Progress Note Subjective: No cp or palp or syncope or shortness of breath Objective: I&O/Vital Signs 02/12/18 02/12/18 02/12/18 02/12/18 04:00 06:46 06:47 07:00 Temp 99.3 Pulse 87 84 Resp 16 B/P (MAP) 192/91 (124) 166/88 (114) Pulse Ox 92 95 O2 Delivery Nasal Cannula Nasal Cannula O2 Flow Rate 2.00 2.00 02/12/18 02/12/18 02/12/18 02/12/18 07:41 08:00 10:47 12:15 Temp 98.6 97.9 Pulse 88 73 Resp 20 20 B/P (MAP) 192/81 (118) 186/87 (120) Pulse Ox 95 95 95 93 O2 Delivery Nasal Cannula Nasal Cannula Nasal Cannula Nasal Cannula O2 Flow Rate 1.00 1.00 2.00 1.00 02/12/18 14:25 Pulse Ox 94 O2 Delivery Nasal Cannula O2 Flow Rate 2.00 02/12/18 00:00 Intake Total 1950 ml Output Total 1675 ml Balance 275 ml Weight (Pounds): 300 Weight (Ounces): 1.0 Weight (Calculated Kilograms): 136.023878 Constitutional: No AAO x 3, No apparent distress; other (more alert and responsive today, but confused) Respiratory: other (good bilat air entry, diminished at the bases) Cardiovascular: regular rate-rhythm, S1 and S2, systolic murmur (soft KYLE at card base) Gastrointestional: soft; No guarding, No rebound; audible bowel sounds Extremities: swelling (mild to mod LE and UE swelling); No clubbing, No cyanosis Neurologic/Psychiatric: grossly intact Skin: No rash on exposed areas, No ulcerations on exposed areas Results/Procedures: Labs Laboratory Tests 02/11/18 16:02: Glucometer 165H 02/11/18 20:13: Glucometer 214H 02/12/18 00:05: Glucometer 178H 02/12/18 05:15: White Blood Count 10.3, Red Blood Count 3.03L, Hemoglobin 8.5L, Hematocrit 27L, Mean Corpuscular Volume 88, Mean Corpuscular Hemoglobin 28, Mean Corpuscular Hemoglobin Concent 32, Red Cell Distribution Width 12.6, Platelet Count 138, Mean Platelet Volume 10.1, Neutrophils (%) (Auto) 76H, Lymphocytes (%) (Auto) 10L, Monocytes (%) (Auto) 10, Eosinophils (%) (Auto) 4, Basophils (%) (Auto) 0, Neutrophils # (Auto) 7.8, Lymphocytes # (Auto) 1.0, Monocytes # (Auto) 1.1H, Eosinophils # (Auto) 0.4H, Basophils # (Auto) 0.0, Sodium Level 144, Potassium Level 4.0, Chloride Level 110H, Carbon Dioxide Level 24, Anion Gap 10, Blood Urea Nitrogen 30H, Creatinine 1.19, Estimat Glomerular Filtration Rate > 60, BUN /Creatinine Ratio 25, Glucose Level 169H, Calcium Level 8.0L, Phosphorus Level 3.6, Magnesium Level 2.3 02/12/18 06:32: Glucometer 168H 02/12/18 08:44: Glucometer 156H 02/12/18 12:10: Glucometer 199H Microbiology 02/03/18 Blood Culture - Final, Complete No growth 01/31/18 Genital Culture - Final, Complete No growth 02/06/18 Mycobacterial Culture - Preliminary, Resulted 01/31/18 Urine Culture - Final, Complete NO GROWTH Laboratory Tests 02/11/18 05:05 02/12/18 05:15 A/P: Assessment: Confusion, probably medication-related, managed by the Hospitalist veronique Spinal stenosis, status post C3-7 ACDF with C5 corpectomy done by Dr. Hardwick Acute respiratory failure, difficult intubation required multiple attempts, currently off ventilator, managed by Dr. Gao Hypertension, not well controlled Mild troponin elevation during this hosp, probably related to prolonged hypoxia Acute on chronic renal failure, much improved Status post fever and leukocytosis, systemic infection suspected and managed by the Med and [place] [facility] [place] disease: Card cath in Jun 2017 showed significant mid LAD stenosis that was stented with Alpine 3.018 mm sten, mild to moderate disease in the proximal portion of the LAD, moderate disease in the distal circumflex artery. Carotid artery stenosis-mild nonobstructive disease per carotid duplex done July 2017, Diabetes mellitus II, managed by Dr. Younger. Diabetic neuropathy, followed and managed by Dr. Younger. Hyperlipidemia, intolerant to Lipitor with severe diarrhea Probable slow GI bleed (as indicated by heme-positive stools on 02/09/18), managed by the [facility] (Dr Escalera) Plan: * Still very hypertensive. Added oral hydralazine on 02/11/18 * Plavix stopped per Dr. Perez due to the anemia and positive stool for occult blood. * Continue on aspirin at this time * Monitor lab closely LORAINE POST MD FACP FAC CCDS Feb 12, 2018 15:59
[2018-02-12 16:15] VITALS: BP 170/79
--- NOTE | 2018-02-12 16:39 | Discharge Summary-Hospitalist ---
Diagnosis/Chief Complaint Date of Admission Jan 30, 2018 at 11:15 Date of Discharge Discharge Diagnosis (1) Respiratory failure Status: Resolved (2) UTI (urinary tract infection) Status: Resolved (3) Urinary retention Status: Acute (4) Renal failure Status: Resolved (5) Cervical myelopathy Status: Chronic (6) Uncontrolled diabetes mellitus Status: Chronic (7) Disuse atrophy of muscle Status: Acute (8) Weakness acquired in ICU Status: Acute (9) Anemia Status: Chronic Discharge Summary Discharge Physical Exam Allergies: Coded Allergies: piperacillin (Verified Allergy, Unknown, RASH, 02/10/18) tazobactam (Verified Allergy, Unknown, RASH, 02/10/18) Vitals & I&Os Vital Signs Date Time Temp Pulse Resp B/P (MAP) Pulse Ox O2 Delivery O2 Flow Rate FiO2 02/12/18 14:25 94 Nasal Cannula 2.00 02/12/18 12:15 97.9 73 20 186/87 (120) 02/06/18 08:00 30 General Appearance: No Apparent Distress, WD/WN, Chronically ill, Obese Respiratory: Chest Non Tender, Lungs Clear, Normal Breath Sounds, No Accessory Muscle Use, No Respiratory Distress Cardiovascular: Regular Rate, Rhythm, No Edema, No Gallop, No JVD, No Murmur, Normal Peripheral Pulses Skin: Normal Color, Warm/Dry Neurologic/Psychiatric: Alert, Other (severe weakness of all extremities equal) Hospital Course Hospital course: patient had a long complex hospital course post operatively from cervical spine procedure by Dr Hardwick on 01/31/18. Patient was sent to the floor after stable in recovery but then had respiratory distress and failed biPAP requiring intubation under Dr Gao consultation. Pt remained intubated while under Precedex and pain meds for comfort. UTI and urinary retention required Zosyn and that was completed. Bronchoscopy was completed revealing mild mucous plugs. ARF eventually resolved back to baseline of CRI creatinine 1.4 after the most elevated 2.5 which was non-oliguria. Pt had cardiology consultation due to h/o CAD but cardiac status remained stable. Diabetes remained out of control on insulin regimen and even required insulin drip for DKA while in ICU. Overall he had returned to stability but due to severe weakness without source identified except for ICU myopathy and family wanted second opinion to evaluate any other reversible causes and chose [facility] updated Hospitalist Service on this request in case I was unable to identify a reversible cause considering he was active and functional prior to surgery and I felt it was medically necessary to transfer to higher level of care in case they could identify a source to help this very debilitated patient return to independent function. Labs (last 24 hrs) Laboratory Tests 02/11/18 20:13: Glucometer 214H 02/12/18 00:05: Glucometer 178H 02/12/18 05:15: White Blood Count 10.3, Red Blood Count 3.03L, Hemoglobin 8.5L, Hematocrit 27L, Mean Corpuscular Volume 88, Mean Corpuscular Hemoglobin 28, Mean Corpuscular Hemoglobin Concent 32, Red Cell Distribution Width 12.6, Platelet Count 138, Mean Platelet Volume 10.1, Neutrophils (%) (Auto) 76H, Lymphocytes (%) (Auto) 10L, Monocytes (%) (Auto) 10, Eosinophils (%) (Auto) 4, Basophils (%) (Auto) 0, Neutrophils # (Auto) 7.8, Lymphocytes # (Auto) 1.0, Monocytes # (Auto) 1.1H, Eosinophils # (Auto) 0.4H, Basophils # (Auto) 0.0, Sodium Level 144, Potassium Level 4.0, Chloride Level 110H, Carbon Dioxide Level 24, Anion Gap 10, Blood Urea Nitrogen 30H, Creatinine 1.19, Estimat Glomerular Filtration Rate > 60, BUN /Creatinine Ratio 25, Glucose Level 169H, Calcium Level 8.0L, Phosphorus Level 3.6, Magnesium Level 2.3 02/12/18 06:32: Glucometer 168H 02/12/18 08:44: Glucometer 156H 02/12/18 12:10: Glucometer 199H Microbiology 02/03/18 Blood Culture - Final, Complete No growth 01/31/18 Genital Culture - Final, Complete No growth 02/06/18 Mycobacterial Culture - Preliminary, Resulted 01/31/18 Urine Culture - Final, Complete NO GROWTH Patient resulted labs reviewed. Pending Labs Laboratory Tests 02/12/18 08:44: Glucometer 156 02/12/18 12:10: Glucometer 199 Discussion & Recommendations Discharge Planning: >30 minutes discharge planning Discharge Home Medications: Active Scripts Active Reported Allergy Relief (Fexofenadine HCl) 180 Mg Tablet 180 Mg PO DAILY@1700 Tramadol HCl 50 Mg Tablet 50-100 Mg PO Q6H PRN take 1-2 (50mg) tabs Rosuvastatin Calcium 5 Mg Tablet 5 Mg PO HS Glimepiride 4 Mg Tablet 4 Mg PO DAILY Furosemide 20 Mg Tablet 20 Mg PO DAILY@1700 Amlodipine Besylate 5 Mg Tablet 5 Mg PO DAILY Losartan Potassium 100 Mg Tablet 100 Mg PO DAILY Clopidogrel (Clopidogrel Bisulfate) 75 Mg Tablet 75 Mg PO DAILY Aspirin EC (Aspirin) 81 Mg Tablet.dr 81 Mg PO DAILY Furosemide 40 Mg Tablet 40 Mg PO DAILY Metoprolol Tartrate 50 Mg Tablet 50 Mg PO BID Glimepiride 2 Mg Tablet 2 Mg PO DAILY@1700 Gabapentin 300 Mg Capsule 600 Mg PO 0800,1500,2200 TAKES 2 (300 MG) CAPSULES Instructions to patient/family Please see electronic discharge instructions given to patient. Clinical Quality Measures DVT/VTE Risk/Contraindication: Risk Factor Score Per Nursin RFS Level Per Nursing on Admit: 2=Moderate Problem Qualifiers (1) Respiratory failure: Chronicity: acute Respiratory failure complication: unspecified whether with hypoxia or hypercapnia Qualified Codes: J96.00 - Acute respiratory failure, unspecified whether with hypoxia or hypercapnia (2) UTI (urinary tract infection): Urinary tract infection type: acute cystitis Hematuria presence: without hematuria Qualified Codes: N30.00 - Acute cystitis without hematuria (3) Renal failure: Renal failure chronicity: acute Acute renal failure type: unspecified Qualified Codes: N17.9 - Acute kidney failure, unspecified (4) Uncontrolled diabetes mellitus: Diabetes mellitus type: type 2 (5) Anemia: Anemia type: unspecified type Qualified Codes: D64.9 - Anemia, unspecified JULY MIJARES DO Feb 12, 2018 16:39
[2018-02-12] MEDS ORDERED: METO50TA15 PO (16:50)
[2018-02-12] MEDS ORDERED: HYDR20VI7 IV (16:50)
[2018-02-12] MEDS ORDERED: ENOX40DI8 SC (16:50)
[2018-02-12] MEDS ORDERED: AMLO10TA6 PO (16:50)
[2018-02-12] MEDS ORDERED: CLON0.1T PO (16:50)
[2018-02-12] MEDS ORDERED: IPRA3AMP31 INH (16:50)
[2018-02-12] MEDS ORDERED: DIPH25TA27 PO (16:50)
[2018-02-12] MEDS ORDERED: LISI-552 PO (16:50)
[2018-02-12] MEDS ORDERED: MORP4CAR IVP (16:50)
[2018-02-12] MEDS ORDERED: DOCU100C37 PO (16:50)
[2018-02-12] MEDS ORDERED: SENN-140 PO (16:50)
[2018-02-12] MEDS ORDERED: RISP0.253 PO (16:50)
[2018-02-12] MEDS ORDERED: HYDR-3923 PO (16:50)
[2018-02-12] MEDS: GLIMEPIRIDE 2 MG (AMARYL) TAB PO SCH (18:54)
[2018-02-12] MEDS: LORATADINE (CLARITIN) 10 MG TAB PO SCH (18:54)
[2018-02-15] MEDS ORDERED: CLONIDINE PATCH REMOVAL TP ONE (07:59)
--- NOTE | 2018-02-17 13:32 | Physician Query Clarification ---
PQ-Conflicting Diagnosis Admission/Discharge Admission Date: Jan 30, 2018 at 11:15 Discharge Date: Feb 12, 2018 at 19:15 The medical record reflects the following clinical scenario: History/Risk Factors: Spinal stenosis w/myelopathy s/p fusion, acute respiratory failure, acute renal failure, UTI w/urinary retention Clinical Findings: confusion, WBC elevated w/lt shift, Lactic acid normal limits, blood and urine cultures negative Treatment: IVZosyn, IV Rocephin, Ventilator, IV lasix Question: Do you agree with the impression of sepsis per Dr. Gao. If yes, is the sepsis a postop complication or due to UTI Please document a response below. PHYSICIAN RESPONSE Do you agree w/Consulting Dx?: Yes In responding to this query, please exercise your independent professional judgment. The purpose of this communication is to more accurately reflect the complexity of your patients condition. The fact that a question is asked does not imply that any particular answer is desired or expected. Thank you for your timely response to this clarification. Requestors name: Kay THIS PHYSICIAN QUERY FORM IS A PERMANENT PART OF THE MEDICAL RECORD KAY WITT Feb 17, 2018 13:32 JULY MIJARES DO Feb 18, 2018 11:04
== END 2018-02-12 19:15 | disposition short-term general hospital (02) | DRG 471 ==
LOC: 4TH 11:15 → SURG 11:16 → 4TH 17:30 → ICU 02-02 20:46 → 4TH 02-09 12:30
PROVIDERS: ADMIT Orthopaedic Surgery; ATTEND Orthopaedic Surgery
PROC: 0RT30ZZ Resection of Cervical Vertebral Disc, Open Approach (ICD-10-PCS; 2018-01-30)
PROC: 0RG20A0 Fusion of 2 or more Cervical Vertebral Joints with Interbody Fusion Device, Anterior Approach, Anterior Column, Open Approach (ICD-10-PCS; principal; 2018-01-30 13:10)
PROC: 5A1945Z Respiratory Ventilation, 24-96 Consecutive Hours (ICD-10-PCS; 2018-02-03)
PROC: 0B9D8ZX Drainage of Right Middle Lung Lobe, Via Natural or Artificial Opening Endoscopic, Diagnostic (ICD-10-PCS; 2018-02-06)
PROC: 0BC58ZZ Extirpation of Matter from Right Middle Lobe Bronchus, Via Natural or Artificial Opening Endoscopic (ICD-10-PCS; 2018-02-06)
DX: M48.02 Spinal stenosis, cervical region (principal); G95.9 Disease of spinal cord, unspecified; M54.12 Radiculopathy, cervical region; A41.9 Sepsis, unspecified organism; N17.9 Acute kidney failure, unspecified; I42.9 Cardiomyopathy, unspecified; J96.00 Acute respiratory failure, unspecified whether with hypoxia or hypercapnia; N39.0 Urinary tract infection, site not specified; I21.4 Non-ST elevation (NSTEMI) myocardial infarction; G72.81 Critical illness myopathy; G93.41 Metabolic encephalopathy; E11.10 Type 2 diabetes mellitus with ketoacidosis without coma; E11.319 Type 2 diabetes mellitus with unspecified diabetic retinopathy without macular edema; J98.11 Atelectasis; E11.42 Type 2 diabetes mellitus with diabetic polyneuropathy; I25.10 Atherosclerotic heart disease of native coronary artery without angina pectoris; I12.9 Hypertensive chronic kidney disease with stage 1 through stage 4 chronic kidney disease, or unspecified chronic kidney disease; E11.51 Type 2 diabetes mellitus with diabetic peripheral angiopathy without gangrene; G47.33 Obstructive sleep apnea (adult) (pediatric); M19.91 Primary osteoarthritis, unspecified site; F41.9 Anxiety disorder, unspecified; N52.9 Male erectile dysfunction, unspecified; N18.9 Chronic kidney disease, unspecified; E78.5 Hyperlipidemia, unspecified; E11.65 Type 2 diabetes mellitus with hyperglycemia; I50.9 Heart failure, unspecified; J98.09 Other diseases of bronchus, not elsewhere classified; R33.9 Retention of urine, unspecified; E66.01 Morbid (severe) obesity due to excess calories; Z68.41 Body mass index [BMI] 40.0-44.9, adult
CPT/HCPCS: 36415; 36569; 36600; 70450; 70551; 71045; 72020; 72040; 76937; 80048; 80053; 81000; 82274; 82805; 82962; 83605; 83735; 83880; 84100; 84443; 84478; 84484; 85007; 85025; 85027; 86850; 86900; 86901; 87040; 87070; 87081; 87088; 87101; 87116; 87205; 93005; 93306; 93970; 94002; 94003; 94640; 94660; 94664; 94760; 94799

== ENCOUNTER 2018-02-23 13:30 | Inpatient (IN) | payer BC ==
[~2018-02-23] VITALS: Ht 180.3 cm; Wt 140.1 kg
[~2018-02-23 13:30] MED LIST changes: +AMLO10TA6 PO; +CLON0.1T PO; +DIPH25TA27 PO; +DOCU100C37 PO; +ENOX40DI8 SC; +HYDR-3923 PO; +HYDR20VI7 IV; +IPRA3AMP31 INH; +LISI-552 PO; +MORP4CAR IVP; +RISP0.253 PO; +SENN-140 PO
[2018-02-23 17:45] VITALS: BP 191/94
[2018-02-23] MEDS: FUROSEMIDE 20 MG (LASIX) TAB PO SCH (19:07)
--- NOTE | 2018-02-23 19:21 | HISTORY AND PHYSICAL ---
DATE OF SERVICE: 02/23/2018 ADMISSION HISTORY AND PHYSICAL CHIEF COMPLAINT: Difficulty with walking. HISTORY OF PRESENT ILLNESS: The patient is a 53-year-old male, who had been independent, trying to have cervical spine surgery with Dr. Hardwick for DJD of the cervical spine associated with radiculopathy. The patient had postoperative complications of anemia, coag negative staph bacteremia, pyelonephritis reported on CT, presumed healthcare community-acquired pneumonia and the patient was transferred to [facility] for ongoing care. The patient is now referred back to [facility] to inpatient rehabilitation for ongoing therapies. He states he had been independent and working in the [employer] business out of [place] prior to all this. He lives in [place], [place]. He is . PCP is Dr. Younger. The patient is currently on 3 antibiotics of Zosyn, Zyvox and vancomycin, and ferrous sulfate as iron replacement. He is a diabetic and on a sliding scale insulin regimen as well as Amaryl. Currently, the patient requires assistance for his ADLs and mobility skills.The patient is mod assist for transfers and in assist for gait with walker.The patient is Modified Independent for eating and setup for grooming The patient is min assist for Upper body dressing The patient is Max assist for lower body dressing. PAST MEDICAL HISTORY: Diabetes mellitus, DJD of cervical spine with radiculopathy, coronary artery disease, hypertension, hyperlipidemia, sleep apnea on CPAP, congestive heart failure, obesity with a BMI of 42.8. PAST SURGICAL HISTORY: As per above. Also has history of congestive heart failure and has been seen by Dr. Perez. ALLERGIES: PIPERACILLIN, TAZOBACTAM; HOWEVER, HE IS CURRENTLY ON PIPERACILLIN, SO THIS IS UNCLEAR. FAMILY HISTORY: Noncontributory. SOCIAL HISTORY: As per above.His 16 yo son lives with him half the week REVIEW OF SYSTEMS: A 10-point review of system is significant for weakness. MEDICATIONS: 1. Tylenol 650 mg p.o. q.6 hours as needed for pain. 2. Ferrous sulfate 325 mg p.o. b.i.d. 3. Insulin sliding scale regimen. 4. Zyvox 600 mg IV q.12 hours. 5. Zofran 4 mg p.o. q.6 hours as needed for nausea and vomiting. 6. Zosyn 3.375 grams IV q.6 hours. 7. Vancomycin 2.5 mL or 125 mg p.o. q.12 hours. 8. Amlodipine 5 mg p.o. daily. 9. ASA 81 mg p.o. daily. 10. Plavix 75 mg p.o. daily. 11. Darcy 180 mg p.o. daily. 12. Furosemide 20 mg p.o. daily with supper. 13. Gabapentin 600 mg p.o. t.i.d. 14. Glimepiride 4 mg p.o. daily with breakfast. 15. Losartan 100 mg p.o. daily. 16. Metoprolol 50 mg p.o. b.i.d. 17. Crestor 5 mg p.o. at bedtime. PHYSICAL EXAMINATION: GENERAL: Significant for a male, somewhat obese, lying in bed, in no acute distress. VITAL SIGNS: Blood pressure is 170/79, pulse is 85. He is afebrile. Respirations 18. BMI 45.36 grams. HEENT: Vision, speech, hearing grossly intact. No oral lesion is noted. NECK: Supple without mass. HEART: Regular rhythm. CHEST: Clear. ABDOMEN: Obese, soft, nontender. Bowel sounds present. EXTREMITIES: 1+ bilateral pedal edema. MUSCULOSKELETAL: He has functional active range of motion in all 4 extremities. NEUROLOGIC: Sensation is grossly intact to touch but he reports decreased proprioception in feet due to PN as well as some numbness and tingling in feet.. Cognition, grossly intact. Strength, he has generalized weakness more so in the lower extremities and upper extremities.Both hip flex 3-/5 knee flex 3/5 knee ext 3+/5 Dorsiflex 3/5 he has functional strength BRYAN IMPRESSION: 1. General debilitation secondary to postoperative anemia associated with coagulase negative staphylococcus bacteremia, pyelonephritis reported on CT and healthcare-associated pneumonia on triple antibiotics. 2. Diabetes mellitus type 2, controlled with medication. 3. History of cervical spine surgery, Dr. Hardwick. 4. Hypertension, controlled with medication. 5. Hyperlipidemia. 6. Sleep apnea. 7. Congestive heart failure, compensated. 8. Dermatitis. 9. Sleep apnea, on CPAP. 10. Obesity. PLAN: The patient will have a comprehensive program of inpatient rehabilitation with the goal of maximizing level of functional independence prior to discharge home with home health care. The patient will have PT and OT 90 minutes per day each discipline, 5 days a week for 7 to 10 days with the above goals in mind. Please see post-admission physician evaluation, which is a separate document with details of plan of care. Speech therapy to do cognitive assessment and treat as indicated. Rehabilitation nursing to assist with bowel, bladder, skin, wound care, medication administration and pain management. rehab services aide to assist with discharge planning and community reentry. Follow up with Dr. Younger, PCP and Cardiology and ortho spine as needed.Lovenox subcut for dvt prophylaxis. Check labs ESTIMATED LENGTH OF STAY: 10 days. PROGNOSIS: Rehab prognosis appears good for goal of discharging home, modified independent to supervision for ADLs and mobility skills. DIET: Carb consistent. CODE STATUS: Full code. Job ID: [id number] DocumentID: [id number] Dictated Date: 02/23/2018 18:35:16 Corn Cooker Date: 02/23/2018 19:20:39 Dictated By: SALEEM AMATO MD MTDD
[2018-02-23 19:35] VITALS: BP 181/87
[2018-02-23] MEDS: LINEZOLID IVPB 300 ML IV SCH (20:32)
[2018-02-23] MEDS: PIPERACILLIN/TAZO 4.5 GM/NS 100 ML IV SCH ×2 (20:33)
[2018-02-23] MEDS: VANCOMYCIN ORAL 250 MG/5 ML 120 ML PO SCH ×2 (20:33)
[2018-02-23] MEDS: GABAPENTIN 600 MG (NEURONTIN) TAB PO SCH (20:33)
[2018-02-23] MEDS: meTOprolol TARTRATE 50 MG (LOPRESSOR) TAB PO SCH (20:34)
[2018-02-23] MEDS: ROSUVASTATIN 5 MG (CRESTOR) TABLET PO SCH (20:34)
[2018-02-23] MEDS ORDERED: VANCOMYCIN ORAL SUSPENSION 60 ML BOTTLE PO SCH (21:00)
[2018-02-23] MEDS ORDERED: MELATONIN 3 MG TABLET ONE (21:48)
[2018-02-23] MEDS: MELATONIN 3 MG TABLET PO PRN (21:53)
[2018-02-23] MEDS: inSUlin ASPART (NovoLOG) 1 UNIT/0.01 ML (CHARGE PER UNIT) SC SCH (21:53)
[2018-02-24] MEDS: VANCOMYCIN ORAL 250 MG/5 ML 120 ML PO SCH ×10 (00:46→23:36)
[2018-02-24] MEDS: PIPERACILLIN/TAZO 4.5 GM/NS 100 ML IV SCH ×6 (03:51→21:51)
[2018-02-24 05:03] VITALS: BP 155/79
[2018-02-24] MEDS: GLIMEPIRIDE 4 MG (AMARYL) TAB PO SCH (06:07)
[2018-02-24] MEDS: FERROUS SULF 325 MG (IRON) TAB PO SCH ×2 (06:07→17:03)
[2018-02-24] MEDS: inSUlin ASPART (NovoLOG) 1 UNIT/0.01 ML (CHARGE PER UNIT) SC SCH ×4 (06:07→22:02)
--- NOTE | 2018-02-24 08:16 | PM&R Post Admission Assessment ---
Post Admission Physician Asses Date seen by provider: Feb 24, 2018 Time seen by provider: 07:40 The preadmission screen agrees with the post admission assessment that the patient is a good candidate for inpatient rehabilitation. The patient will have a comprehensive program of inpatient rehabilitation with a goal of maximizing level of functional independence prior to discharge home with [facility]. The patient will have PT/OT ninety minutes per day, each discipline , five days a week for 10 days for gait, strengthening, conditioning, balance, ADLs, any patient/family/caregiver training as necessary. Speech therapy to do cognitive assessment and treat as indicated. Rehabilitation nursing to assist with bowel, bladder, skin, wound care, medication administration, pain management. Pump Rebuilder to assist with discharge planning, community reentry. SCD's for DVT prophylaxis. He appears to be well motivated to participate in three hours of therapy a day. He should be able to tolerate three hours of therapy a day from a medical and surgical standpoint. He should benefit from the three hours of therapy a day. He has a reasonable discharge plan, reasonable discharge rehabilitation goals and a supportive family. He has various comorbidities that need to be closely monitored with medications and treatments adjusted on a daily basis as needed. These include: Type 2 DM HTN HLP GABRIELLA CHF Barriers to discharge for this patient who had been independent prior to this are for him to be modified independent to supervision for ADLs and mobility skills prior to discharge home with [facility] so as to lessen the burden of the caregivers. Risks for this patient include: 1. Fall 2. Fracture 3. DVT 4. Pulmonary embolism 5. Wound infection 6. Skin breakdown 7. Contractures 8. Poorly controlled pain 9. Urinary retention 10. UTI 11. Respiratory infection 12. Aspiration 13. Poorly controlled HTN 14. Poorly controlled DM Estimated Length of Stay: 10 days Prognosis: Rehab prognosis appears good for goal of discharge home with [facility] modified independent to supervision for ADLs and mobility skills. General: Alert, Oriented X3, Cooperative, No Acute Distress HEENT: Atraumatic, PERRLA, EOMI, Mucous Memb Moist/[place] Neck: Supple, No JVD Lungs: Clear to Auscultation Heart: Regular Rate Abdomen: Normal Bowel Sounds, Soft, No Tenderness Extremities: Other (trace edema legs) Neuro: Other (generalized weakness) Psych/Mental Status: Mental Status NL SALEEM AMATO MD Feb 24, 2018 08:16
[2018-02-24] MEDS: LORATADINE (CLARITIN) 10 MG TAB PO SCH (09:26)
[2018-02-24] MEDS: LOSARTAN 100 MG (COZAAR) TABLET PO SCH (09:27)
[2018-02-24] MEDS: CLOPIDOGREL 75 MG (PLAVIX) TABLET PO SCH (09:27)
[2018-02-24] MEDS: amLODIPine 5 MG (NORVASC) TAB PO SCH (09:27)
[2018-02-24] MEDS: GABAPENTIN 600 MG (NEURONTIN) TAB PO SCH ×3 (09:27→20:18)
[2018-02-24] MEDS: ASPIRIN E.C. 81 MG (ECOTRIN) TAB PO SCH (09:27)
[2018-02-24] MEDS: meTOprolol TARTRATE 50 MG (LOPRESSOR) TAB PO SCH ×2 (09:28→20:18)
[2018-02-24] MEDS: LINEZOLID IVPB 300 ML IV SCH ×2 (09:28→20:13)
--- NOTE | 2018-02-24 09:42 | Physical Therapy Evaluation ---
PT Evaluation-General Medical Diagnosis Admission Date Feb 23, 2018 at 17:40 Medical Diagnosis: debility, difficulty with walking Onset Date: Jan 30, 2018 Therapy Diagnosis Therapy Diagnosis: impaired mobility, strength, endurance Height/Weight Height (Feet): 5 Height (Inches): 11.00 Weight (Pounds): 307 Weight (Ounces): 1.0 Precautions Precautions/Isolations: Fall Prevention, Standard Precautions Referral Physician: Thong Reason for Referral: Evaluation/Treatment Medical History Pertinent Medical History: Arthritis, CAD, DM, Heart Failure, HTN, Neuropathy, PVD Additional Medical History PAST MEDICAL HISTORY: Diabetes mellitus, DJD of cervical spine with radiculopathy, coronary artery disease, hypertension, hyperlipidemia, sleep apnea on CPAP, congestive heart failure, obesity with a BMI of 42.8. PAST SURGICAL HISTORY: As per above. Also has history of congestive heart failure and has been seen by Dr. Perez. Reviewed History: Yes Social History Home: Single Level Current Living Status: Alone Entry Into Home: Level Entry Prior/Core FIM Prior Level of Function Functional [place] Measure 0=Not Assessed/NA 4=Minimal Assistance 1=Total Assistance 5=Supervision or Setup 2=Maximal Assistance 6=Modified [place] 3=Moderate Assistance 7=Complete [place] Bed Mobility: 6 Transfers (B,C,W/C) (FIM): 6 Gait: 6 Patient states he was using a single point cane for balance prior to surgery. PT Evaluation-Current Subjective Patient in bed pre tx, agrees to PT, has no complaints of pain. Patient does not have a neck brace and he says he has not been using one. Pt/Family Goals to be independent at home Objective Patient Orientation: Person, Place, Situation ROM/Strength ROM Lower Extremities WNL Strenght Lower Extremities right lower extremity (hip flexion 3-/5, knee flexion 3/5, knee extension 3+/5, dorsiflexion 3/5) left lower extremity (hip flexion 3-/5, knee flexion 3/5, knee extension 3+/5, dorsiflexion 3/5) Integumentary/Posture Integumentary Patient has swelling in both lower extremities, 2+ pitting edema in calves. Neuromuscular (Tone, Coordination, Reflexes) NT Sensory Vision: Functional Hearing: Functional Sensation Right Lower Extremit: Intact Sensation Left Lower Extremity: Intact Sensation Lower Extremities Patient states he has neuropathy and has decreased balance because of that as well as numbness and tingling in his legs but he does have intact light touch sensation. Transfers Functional [place] Measure 0=Not Assessed/NA 4=Minimal Assistance 1=Total Assistance 5=Supervision or Setup 2=Maximal Assistance 6=Modified [place] 3=Moderate Assistance 7=Complete IndependenceIRFPAI Quality Coding Scale 6 Independent with activity with or without an assistive device 5 Patient requires set up or clean up by helper. Patient completes activity by themselves 4 Supervision or touching assist (CGA). [place] provide cues , steadying assist 3 The helper provides less than half the effort to complete the activity 2 The helper provides more than half the effort to complete the activity 1 Dependent. The helper does all the effort to complete an activity 7 Patient refused to complete or attempt activity 9 The patient did not perform the activity before the current illness or injury 88 Not attempted due to Medical conditions or safety concerns Transfers (B, C, W/C) (FIM): 3 Scootin Rollin Roll Left to Right (QC): 4 Supine to/from Sit: 4 Sit to/from Stand: 3 bed t/f WC(FIM only if WC use): 4 Sit to Lying (QC): 3 Lying to Sitting/Side of Bed(Q: 3 Sit to Stand (QC): 2 Chair/Rkn-qz-Ngfzo Xfer(QC): 4 Car Transfer (QC): 4 Patient performs bed mobility with SBA/CGA, supine <-> sit with min assist, sit to stand with mod assist, transfers with CGA, car transfer CGA. Patient needs cues for safety and hand positioning. Gait Does the Patient Walk?: Yes Mode of Locomotion: Walk Anticipated Mode of Locomotion: Walk Gait (FIM): 1 Walk 10 feet (QC): 4 Walk 50 ft with 2 Turns(QC): 88 Walk 150 ft (QC): 88 Walking 10ft/uneven surface-QC: 88 Distance: 40 Gait Level of Assist: 4 Gait Persons Needed: 1 Gait Assistive Device: FWW Comments/Gait Description Patient ambulated 40' with a rolling walker with CGA. Patient ambulates slowly and with decreased knee flexion, in fact he has bilateral knee hyperextension. Patient can get light headed during ambulation and needs rest breaks. Patient seems to be just on the verge of knee buckling the whole time during ambulation and needs close guarding. Wheelchair Training Does the Pt Use a Wheelchair?: Yes Wheelchair (FIM): 2 Distance: 50' Wheelchair Level of Assist: 5 Type of Wheelchair: Manual Stairs If not tested on admit;explain Patient does not have the strength to performs stairs at this time. Balance Sitting Static: Normal Sitting Dynamic: Normal Standing Static: Fair Standing Dynamic: Fair Treatment Patient was also toileted for a BM and dressed lower extremities with min assist. Patient in recliner post tx with nurse call, phone, tray, all needs met. Assessment/Needs Patient has impaired mobility, endurance, strength in both lower extremities. Rehab Potential: Fair PT Short Term Goals Short Term Goals Time Frame: Mar 03, 2018 Transfers (B,C,W/C) (FIM): 4 Gait (FIM): 2 Gait Distance Comment: 100' Gait Level of Assist: 4 Gait Assistive Device: FWW PT Mrb Engineer Goals Mrb Engineer Goals PT Shelter Goals Time Frame: Mar 17, 2018 Transfers (B,C,W/C) (FIM): 5 Sit to Lying (QC): 4 Lying-Sitting on Side/Bed(QC): 4 Sit to Stand (QC): 4 Rollin Roll Left to Right (QC): 4 Chair/[id number]-Zcvfh Xfer(QC): 4 Car Transfer (QC): 4 Gait (FIM): 5 Distance: 150' Walk 10 feet (QC): 4 Walk 10ft-Uneven Surface(QC): 4 Walk 50ft with 2 Turns (QC): 4 Walk 150 ft (QC): 4 Gait Level of Assist: 5 Gait Assistive Device: FWW Stairs (FIM): 2 # of Steps: 4 1 Step (curb) (QC): 4 4 Steps (QC): 4 Stairs Level Of Assist: 4 PT Plan Problem List Problem List: Activity Tolerance, Functional Strength, Safety, Balance, Gait, Transfer, Bed Mobility, ROM Treatment/Plan Treatment Plan: Continue Plan of Care Treatment Plan: Bed Mobility, Education, Functional Activity [place], Functional Strength, Group Therapy, Gait, Safety, Therapeutic Exercise, Transfers Treatment Duration: Mar 17, 2018 Frequency: At least 5 of 7 days/Wk (IRF) Estimated Hrs Per Day: 1.5 hours per day Patient and/or Family Agrees t: Yes Safety Risks/Education Patient Education: Gait Training, Transfer Techniques, Correct Positioning, W/ C Management, Safety Issues Teaching Recipient: Patient Teaching Methods: Demonstration, Discussion Response to Teaching: Reinforcement Needed Discharge Recommendations Plan Patient will perform bed mobility and transfer training, balance and endurance training, functional strengthening, stair training, gait training, and education to improve functional mobility and independence at home. Therapy D/C Recommendations: Home w/ Family Support Time/GCodes Time In: 0800 Time Out: 0900 Total Billed Treatment Time: 60 Total Billed Treatment 1 visit EVM 30' GT 15' FA 15' MARCELL BADILLO PT Feb 24, 2018 09:42
[2018-02-24] MEDS: ENOXAPARIN 40 MG/0.4 ML (LOVENOX) SYR SC SCH ×2 (10:21→22:02)
[2018-02-24 10:27] LABS: BASOPHILS % (AUTO) 1 % (0-10); EOSINOPHILS # (AUTO) 0.4 10^3/uL (0.0-0.3); EOSINOPHILS % (AUTO) 7 % (0-10); HEMATOCRIT 26 % (40-54); HEMOGLOBIN 8.6 G/DL (13.3-17.7); LYMPHOCYTES # (AUTO) 0.6 X 10^3 (1.0-4.0); LYMPHOCYTES % (AUTO) 12 % (12-44); MEAN CORPUSCULAR HEMOGLOBIN 29 PG (25-34); MEAN CORPUSCULAR HGB CONC 33 G/DL (32-36); MEAN CORPUSCULAR VOLUME 89 FL (80-99); MEAN PLATELET VOLUME 9.6 FL (7.4-10.4); MONOCYTES # (AUTO) 0.3 X 10^3 (0.0-1.0); MONOCYTES % (AUTO) 6 % (0-12); NEUTROPHILS # (AUTO) 3.8 X 10^3 (1.8-7.8); NEUTROPHILS % (AUTO) 74 % (42-75); PLATELET COUNT 183 10^3/uL (130-400); RED BLOOD COUNT 2.97 10^6/uL (4.35-5.85); RED CELL DISTRIBUTION WIDTH 13.5 % (10.0-14.5); WHITE BLOOD COUNT 5.2 10^3/uL (4.3-11.0)
[2018-02-24 10:48] LABS: ALBUMIN 3.1 GM/DL (3.2-4.5); BILIRUBIN,TOTAL 0.4 MG/DL (0.1-1.0); CALCIUM 8.7 MG/DL (8.5-10.1); CREATININE SERUM 1.35 MG/DL (0.60-1.30); POTASSIUM 4.3 MMOL/L (3.6-5.0); TOTAL PROTEIN 5.4 GM/DL (6.4-8.2)
--- NOTE | 2018-02-24 11:47 | ST Cognitive Linguistic Eval ---
Speech Evaluation-General Medical Diagnosis debility, difficulty with walking Therapy Diagnosis Therapy Diagnosis: Cognition Precautions Precautions/Isolations: Fall Prevention, Standard Precautions Referral Referring Physician: Dr. Benito Reason for Referral: Evaluation/Treatment Medical History Pertinent Medical History: Arthritis, CAD, DM, Heart Failure, HTN, Neuropathy, PVD Reviewed History: Yes Social History Current Living Status: Alone Speech PLF-Current Status Prior Level of Function pt was Independent Subjective Pt up in chair. Pleasant and cooperative.. Pain Numeric Pain Scale: 0-No Pain Language Eval: Auditory Comprehends Simple Yes/No Ques: Functional Follows 1-Step Commands: Functional Follows Complex Directions: Functional Follows General Conversations: Functional Language Eval: Verbal Language Completes Spontaneous Greeting: Functional Word Finding: Functional Requests Basic Needs: Functional States Basic Personal Info: Functional Expresses Complex Ideas: Functional Language Evaluation: Reading NT Cognitive Patient Orientation Oriented x 3. Objective Results [facility] Cognitive/Communication Screen was administered to assess cognitive- linguistic functioning. Results are: Memory - 3 word recall was 3/3 correct for immediate, delayed and remotely delayed recall. Organization - Pt was 4/4 correct for this activity. Problem Solving - Simple 4/4 correct; Abstract 2/2 correct and Comparisons was 3 /5 correct. Speech/Language was WNL Oral Motor/Speech Production WNL Impression Functional cognitive-linguistic skills. Communication/Social Cognition Comprehension: 7 Expression: 7 Social Interaction: 7 Problem Solvin Memory: 7 Speech Patient Assess Expression of Ideas/Wants: Expression (4) Understanding Verbal Content: Understands (4) Brief Interview-Mental Status: Yes Repetition of Three Words: Three (3) Temporal Orientation: Year: Correct (3) Temporal Orientation: Month: Accurate within 5 days(2) Temporal Orientation: Day: Correct (1) Recall : Wear to say "Sock": Yes, no cue required (2) Recall : Color: Yes, no cue required (2) Recall : Bed: Yes, no cue required (2) Speech Short Term Goals Short Term Goals Short Term Goals no goals established as skilled ST not indicate. Speech Engine Wiper Goals Engine Wiper Goals no goals established as skilled ST not indicated. Speech-Plan Patient/Family Goals Patient/Family Goals: to return home Treatment Plan Speech Therapy Treatment Plan: Discontinue ST skilled ST not indicated. Frequency: Modified Program (IRF) Estimated Hrs Per Day: Other Rehab Potential: Good Pt/Family Agrees to Plan: Yes Safety Risks/Education Teaching Recipient: Patient Teaching Methods: Discussion Response to Teaching: Verbalize Understanding Time Speech Therapy Time In: 11:00 Speech Therapy Time Out: 11:15 Total Billed Time: 15 Billed Treatment Time 1, MIGUEL Proctor Feb 24, 2018 11:47
--- NOTE | 2018-02-24 13:00 | Occupational Therapy Eval ---
OT Evaluation-General/PLF Medical Diagnosis Admission Date Feb 23, 2018 at 17:40 Medical Diagnosis: debility, difficulty with walking Onset Date: Jan 30, 2018 Therapy Diagnosis Therapy Diagnosis: impaired self care skills Height/Weight Height (Feet): 5 Height (Inches): 11.00 Weight (Pounds): 307 Weight (Ounces): 1.0 Precautions Precautions/Isolations: Fall Prevention, Standard Precautions Safety Interventions: None Referral Physician: Thong Medical History Pertinent Medical History: Arthritis, CAD, DM, Heart Failure, HTN, Neuropathy, PVD Additional Medical History DJD of cervical spine, hyperlipidemia, sleep apnea. Current History Pt had cervical spine surgery on 01/30/18 with post-surgical complications requiring mechanical ventilation. Pt was admitted to rehab on 02/23/18. Reviewed History: Yes Social History Home: Single Level Current Living Status: Children (16 y/o son lives with pt half the week) Entry Into Home: Level Entry ADL-Prior Level of Function ADL PLOF Comments Pt reports being independent prior to surgery. Uses cane for mobility. 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 DME/Equipment: Shower, Tall Toilet Drive Self: Yes OT Current Status Subjective Pt sitting in chair, agrees to treatment. Pt reports 3/10 neck pain. Mental Status/Objective Patient Orientation: Person, Place, Situation Attachments: IV Current Glasses/Contacts: Yes (reading) Hearing Aids: No Dentures/Partials: No Hand Dominance: Right Upper Extremity ROM Grossly WFL Upper Extremity Coordination mildly decreased Upper Extremity Sensation Pt has no reports of numbness or tingling in hands. ADL-Treatment ADL-Current Pt completed sponge bath while seated in chair. Upper body bathing completed with set up. Pt able to wash bilateral upper legs and francesco area. Assist required to wash bilateral lower legs/feet and buttocks.Don pullover shirt with SBA. Pt required max assist to don pants. Pt sit to stand with moderate assist for pant hike. Total assist required to doff/don socks. Grooming tasks completed while seated in chair. Pt combed hair and brushed teeth after set up. Pt sitting in chair with needs met and visitor present after session. Functional [place] Measure 0=Not Assessed/NA 4=Minimal Assistance 1=Total Assistance 5=Supervision or Setup 2=Maximal Assistance 6=Modified [place] 3=Moderate Assistance 7=Complete IndependenceIRFPAI Quality Coding Scale 6 Independent with activity with or without an assistive device 5 Patient requires set up or clean up by helper. Patient completes activity by themselves 4 Supervision or touching assist (CGA). [place] provide cues , steadying assist 3 The helper provides less than half the effort to complete the activity 2 The helper provides more than half the effort to complete the activity 1 Dependent. The helper does all the effort to complete an activity 7 Patient refused to complete or attempt activity 9 The patient did not perform the activity before the current illness or injury 88 Not attempted due to Medical conditions or safety concerns Eating (FIM): 6 (Per pt and nursing report) Eating (QC): 6 Grooming (FIM): 5 Oral Hygiene (QC): 5 Bathing (FIM): 3 Shower/Bathe Self (QC): 3 Upper Body Dressing (FIM): 5 Upper Body Dressing (QC): 4 Lower Body Dressing (FIM): 2 Lower Body Dressing (QC): 2 On/Off Footwear (QC): 1 Education OT Patient Education: Rehab process Teaching Recipient: Patient Teaching Methods: Discussion Response to Teaching: Verbalize Understanding OT Short Term Goals Short Term Goals Time Frame: Mar 03, 2018 Bathing(FIM): 4 Lower Body Dressing(FIM): 4 Toileting(FIM): 4 Toilet/Commode Transfer(FIM): 4 Additional Short Term Goals: 2-Verbalize Understanding, 3-ImproveStrength/Cody 1=Demonstrate adherence to instructed precautions during ADL tasks. 2=Patient will verbalize/demonstrate understanding of assistive devices/ modifications for ADL. 3=Patient will improve strength/tolerance for activity to enable patient to perform ADL's. OT Director Toxicology Goals Longterm Goals Time Frame: Mar 17, 2018 Eating (FIM): 7 Eating (QC): 6 Groomin Oral Hygiene (QC): 6 Bathing(FIM): 5 Shower/Bathe Self (QC): 5 Upper Body Dressing(FIM): 6 Upper Body Dressing (QC): 6 Lower Body Dressing(FIM): 5 Lower Body Dressing (QC): 5 On/Off Footwear (QC): 5 Toileting(FIM): 5 Toileting Hygiene (QC): 5 Toilet/Commode Transfer(FIM): 5 Toilet/Commode Transfer (QC): 5 Shower Transfer(FIM): 5 Additional Goals: 1-Demonstrate ADL Tasks, 2-Verbalize Understanding, 3- ImproveStrength/Cody 1=Demonstrate adherence to instructed precautions during ADL tasks. 2=Patient will verbalize/demonstrate understanding of assistive devices/ modifications for ADL. 3=Patient will improve strength/tolerance for activity to enable patient to perform ADL's. Goals established to promote increased functional independence and allow safe discharge. OT Education/Plan Problem List/Assessment Assessment: Decreased Activ Tolerance, Decreased UE Strength, Dependent Transfers, Impaired Funct Balance, Impaired I ADL's, Impaired Self-Care Skills Pt to benefit from skilled OT intervention for ADL training, transfers, strengthening, and home safety education to increase level of independence and allow safe discharge home Discharge Recommendations Plan/Recommendations: Continue POC Treatment Plan/Plan of Care Treatment,Training & Education: Yes Patient would benefit from OT for education, treatment and training to promote independence in ADL's, mobility, safety and/or upper extremity function for ADL' s. Plan of Care: ADL Retraining, Functional Mobility, Group Exercise/Act as Ind, UE Funct Exercise/Act Treatment Duration: Mar 17, 2018 Frequency: Modified Program (IRF) (25/12) Estimated Hrs Per Day: 1.5 hours per day Agreement: Yes Rehab Potential: Good Time/GCodes Start Time: 09:30 Stop Time: 10:30 Total Time Billed (hr/min): 60 Billed Treatment Time 1 visit, EVM(20minutes), ADLx3(40minutes) BRENT COLLAZO OT Feb 24, 2018 13:00
--- NOTE | 2018-02-24 13:00 | ST Dysphagia Evaluation ---
Speech Evaluation-General Medical Diagnosis debility, difficulty with walking Therapy Diagnosis Therapy Diagnosis: Dysphagia Precautions Precautions/Isolations: Fall Prevention, Standard Precautions Referral Referring Physician: Dr. Benito Reason for Referral: Evaluation/Treatment Medical History Pertinent Medical History: Arthritis, CAD, DM, Heart Failure, HTN, Neuropathy, PVD Reviewed History: Yes Social History Current Living Status: Alone Speech PLF/Current-Dysphagia Prior Level of Function Independent Subjective Pt in chair. Pleasant and cooperative. Cognitive Status Patient Orientation: Person, Place, Time Oral Motor Skills Dentition: Natural Current Food Consistancy: Regular, Thin Liquids Ability to Follow Directions: Excellent Oral Expression Ability: No Impairment Voice Voice Phonatory-Based Quality: Normal Voice Pitch: Normal Voice Loudness: Normal Face Facial Symmetry: Symmetrical Oral-Facial Assessment Oral-Facial Dentition: Normal Labial Seal Description: Normal Dysphagia Evaluation Consistencies Presented: Regular, Thin Liquid, Mechanical Soft, Pureed WNL WNL Dietary Recommendations: Regular Liquid Recommendations: Thin Swallowing Precautions: Small Bites and Sips, Sitting Upright 90 Degrees Dysphagia Evaluation Summary Oropharyngeal swallow WNL. No signs/symptoms of aspiration seen. Speech Short Term Goals Short Term Goals Short Term Goals no goals established as skilled ST not indicate. Speech Group Home Goals Packaging Designer Goals no goals established as skilled ST not indicated. Speech-Plan Treatment Plan Speech Therapy Treatment Plan: Discontinue ST skilled ST not indicated. Frequency: Modified Program (IRF) (0) Estimated Hrs Per Day: Other (0) Rehab Potential: Good Pt/Family Agrees to Plan: Yes Safety Risks/Education Teaching Recipient: Patient Teaching Methods: Discussion Response to Teaching: Verbalize Understanding Time Speech Therapy Time In: 11:15 Speech Therapy Time Out: 11:30 Total Billed Time: 15 Billed Treatment Time 1, MIGUEL Shelton Feb 24, 2018 13:00
--- NOTE | 2018-02-24 13:59 | Occupational Ther Daily Note ---
OT Current Status-Daily Note Subjective Pt agrees to treatment. Mental Status/Objective Functional [place] Measure 0=Not Assessed/NA 4=Minimal Assistance 1=Total Assistance 5=Supervision or Setup 2=Maximal Assistance 6=Modified [place] 3=Moderate Assistance 7=Complete [place] ADL-Treatment Pt standing with RN when therapist arrives. Gait to restroom with FWW. Pt transferred to [facility] over toilet with minimal assistance using grab bars for safety.Pt able to pull pants down and complete hygiene. Pt's pants became soaked with urine secondary to gap between toilet seat and commode. Pt donned clean underwear with max assist. Sit to stand with moderate assistance. Gait to chair with FWW and assist to manage IV pole. Functional [place] Measure 0=Not Assessed/NA 4=Minimal Assistance 1=Total Assistance 5=Supervision or Setup 2=Maximal Assistance 6=Modified [place] 3=Moderate Assistance 7=Complete IndependenceIRFPAI Quality Coding Scale 6 Independent with activity with or without an assistive device 5 Patient requires set up or clean up by helper. Patient completes activity by themselves 4 Supervision or touching assist (CGA). [place] provide cues , steadying assist 3 The helper provides less than half the effort to complete the activity 2 The helper provides more than half the effort to complete the activity 1 Dependent. The helper does all the effort to complete an activity 7 Patient refused to complete or attempt activity 9 The patient did not perform the activity before the current illness or injury 88 Not attempted due to Medical conditions or safety concerns Toileting (FIM): 3 Toileting Hygiene (QC): 3 Toilet/Commode Transfer (FIM): 3 Toilet Transfer (QC): 3 Other Treatment Pt completed bilateral hand fire manager exercises x20 reps with resistance therapy foam to increase fire manager strength for functional tasks. Graded clothespins task completed with bilateral hands to increase fire manager/pinch strength. Pt has difficulty with highest resistance clothespins and was unable to use left hand independently for those. Pt sitting in chair with needs met after session. OT Short Term Goals Short Term Goals Time Frame: Mar 03, 2018 Bathing(FIM): 4 Lower Body Dressing(FIM): 4 Toileting(FIM): 4 Toilet/Commode Transfer(FIM): 4 Additional Short Term Goals: 2-Verbalize Understanding, 3-ImproveStrength/Cody 1=Demonstrate adherence to instructed precautions during ADL tasks. 2=Patient will verbalize/demonstrate understanding of assistive devices/ modifications for ADL. 3=Patient will improve strength/tolerance for activity to enable patient to perform ADL's. OT Chcf Goals Chcf Goals Time Frame: Mar 17, 2018 Eating (FIM): 7 Eating (QC): 6 Groomin Oral Hygiene (QC): 6 Bathing(FIM): 5 Shower/Bathe Self (QC): 5 Upper Body Dressing(FIM): 6 Upper Body Dressing (QC): 6 Lower Body Dressing(FIM): 5 Lower Body Dressing (QC): 5 On/Off Footwear (QC): 5 Toileting(FIM): 5 Toileting Hygiene (QC): 5 Toilet/Commode Transfer(FIM): 5 Toilet/Commode Transfer (QC): 5 Shower Transfer(FIM): 5 Additional Goals: 1-Demonstrate ADL Tasks, 2-Verbalize Understanding, 3- ImproveStrength/Cody 1=Demonstrate adherence to instructed precautions during ADL tasks. 2=Patient will verbalize/demonstrate understanding of assistive devices/ modifications for ADL. 3=Patient will improve strength/tolerance for activity to enable patient to perform ADL's. OT Education/Plan Discharge Recommendations Plan/Recommendations: Continue POC Treatment Plan/Plan of Care Patient would benefit from OT for education, treatment and training to promote independence in ADL's, mobility, safety and/or upper extremity function for ADL' s. Plan of Care: ADL Retraining, Functional Mobility, Group Exercise/Act as Ind, UE Funct Exercise/Act Treatment Duration: Mar 17, 2018 Frequency: Modified Program (IRF) (25/12) Estimated Hrs Per Day: 1.5 hours per day Agreement: Yes Rehab Potential: Good Time/GCodes Start Time: 11:30 Stop Time: 12:00 Total Time Billed (hr/min): 30 Billed Treatment Time 1 visit, ADL(15minutes), EX(15minutes) BRENT COLLAZO OT Feb 24, 2018 13:59
--- NOTE | 2018-02-24 14:05 | Occupational Ther Daily Note ---
OT Current Status-Daily Note Subjective Pt sitting in chair, agrees to therapy. Pt states he is feeling a little tired this afternoon. Mental Status/Objective Functional [place] Measure 0=Not Assessed/NA 4=Minimal Assistance 1=Total Assistance 5=Supervision or Setup 2=Maximal Assistance 6=Modified [place] 3=Moderate Assistance 7=Complete [place] Attachments: IV ADL-Treatment Functional [place] Measure 0=Not Assessed/NA 4=Minimal Assistance 1=Total Assistance 5=Supervision or Setup 2=Maximal Assistance 6=Modified [place] 3=Moderate Assistance 7=Complete IndependenceIRFPAI Quality Coding Scale 6 Independent with activity with or without an assistive device 5 Patient requires set up or clean up by helper. Patient completes activity by themselves 4 Supervision or touching assist (CGA). [place] provide cues , steadying assist 3 The helper provides less than half the effort to complete the activity 2 The helper provides more than half the effort to complete the activity 1 Dependent. The helper does all the effort to complete an activity 7 Patient refused to complete or attempt activity 9 The patient did not perform the activity before the current illness or injury 88 Not attempted due to Medical conditions or safety concerns Other Treatment Pt completed resistance putty activity with bilateral hands to increase strength and coordination skills. Pt able to remove small beads from putty . Pt occasionally drops a bead, but is able to pickle processor and place in container without assistance. Pt completed fine motor task with nuts and bolts to increase coordination/manipulation skills and UE activity tolerance. Pt requires increased time for task and one rest break secondary to fatigue. Pt sitting in chair with needs met after session. OT Short Term Goals Short Term Goals Time Frame: Mar 03, 2018 Bathing(FIM): 4 Lower Body Dressing(FIM): 4 Toileting(FIM): 4 Toilet/Commode Transfer(FIM): 4 Additional Short Term Goals: 2-Verbalize Understanding, 3-ImproveStrength/Cody 1=Demonstrate adherence to instructed precautions during ADL tasks. 2=Patient will verbalize/demonstrate understanding of assistive devices/ modifications for ADL. 3=Patient will improve strength/tolerance for activity to enable patient to perform ADL's. OT Mirror Painter Goals Custodial Goals Time Frame: Mar 17, 2018 Eating (FIM): 7 Eating (QC): 6 Groomin Oral Hygiene (QC): 6 Bathing(FIM): 5 Shower/Bathe Self (QC): 5 Upper Body Dressing(FIM): 6 Upper Body Dressing (QC): 6 Lower Body Dressing(FIM): 5 Lower Body Dressing (QC): 5 On/Off Footwear (QC): 5 Toileting(FIM): 5 Toileting Hygiene (QC): 5 Toilet/Commode Transfer(FIM): 5 Toilet/Commode Transfer (QC): 5 Shower Transfer(FIM): 5 Additional Goals: 1-Demonstrate ADL Tasks, 2-Verbalize Understanding, 3- ImproveStrength/Cody 1=Demonstrate adherence to instructed precautions during ADL tasks. 2=Patient will verbalize/demonstrate understanding of assistive devices/ modifications for ADL. 3=Patient will improve strength/tolerance for activity to enable patient to perform ADL's. OT Education/Plan Discharge Recommendations Plan/Recommendations: Continue POC Treatment Plan/Plan of Care Patient would benefit from OT for education, treatment and training to promote independence in ADL's, mobility, safety and/or upper extremity function for ADL' s. Plan of Care: ADL Retraining, Functional Mobility, Group Exercise/Act as Ind, UE Funct Exercise/Act Treatment Duration: Mar 17, 2018 Frequency: Modified Program (IRF) (25/12) Estimated Hrs Per Day: 1.5 hours per day Agreement: Yes Rehab Potential: Good Time/GCodes Start Time: 13:00 Stop Time: 13:30 Total Time Billed (hr/min): 30 Billed Treatment Time 1 visit, EX(15minutes) FA(15minutes) BRENT COLLAZO OT Feb 24, 2018 14:05
--- NOTE | 2018-02-24 14:20 | Physical Therapy Daily Note ---
PT Daily Note-Current Subjective pt in recliner pre tx, agrees to PT, pain 4/10 in neck, reports soreness in his legs from this morning Appearance pt in bed post tx, w/ phone, call light, tray, all needs met Mental Status Patient Orientation: Person, Place, Time Attachments: IV Transfers Functional [place] Measure 0=Not Assessed/NA 4=Minimal Assistance 1=Total Assistance 5=Supervision or Setup 2=Maximal Assistance 6=Modified [place] 3=Moderate Assistance 7=Complete IndependenceIRFPAI Quality Coding Scale 6 Independent with activity with or without an assistive device 5 Patient requires set up or clean up by helper. Patient completes activity by themselves 4 Supervision or touching assist (CGA). [place] provide cues , steadying assist 3 The helper provides less than half the effort to complete the activity 2 The helper provides more than half the effort to complete the activity 1 Dependent. The helper does all the effort to complete an activity 7 Patient refused to complete or attempt activity 9 The patient did not perform the activity before the current illness or injury 88 Not attempted due to Medical conditions or safety concerns Transfers (B, C, W/C) (FIM): 3 Scootin Rollin Supine to/from Sit: 4 Sit to/from Stand: 3 sit<->stand modA, pt struggles getting enough momentum during push off and gaining his balance once upright, supine<->sit Cristiane, pt able to get into bed w/ SBA but needs help w/ one leg getting out of bed, Gait Training Does the Patient Walk?: Yes Gait (FIM): 2 Distance: 30'x2, 60' Gait Level of Assist: 4 Gait Persons Needed: 1 Gait Assistive Device: FWW pt ambulates to/from gym w/ FWW and CGA, pt demonstrates excessive bilat knee extension due to weakness, gait is slow but steady, no LOB Exercises Supine Ex: Glut sets Supine Reps: 20 Seated Therapy Exercises: Ankle pumps, Long arc quads, Hip flexion, Hip abd/add Seated Reps: 20 NuStep Minutes: 15 NuStep Workload: 3 Treatments gait training, functional strengthening, endurance training Assessment Current Status: Fair Progress improved endurance and gait distance, pt responds well to the NuStep PT Short Term Goals Short Term Goals Time Frame: Mar 03, 2018 Gait (FIM): 2 Gait Distance Comment: 100' Gait Level of Assist: 4 Gait Assistive Device: FWW Wheelchair Distance: 50' PT Fdc Goals Fdc Goals PT Fdc Goals Time Frame: Mar 17, 2018 Transfers (B,C,W/C) (FIM): 5 Sit to Lying (QC): 4 Lying-Sitting on Side/Bed(QC): 4 Sit to Stand (QC): 4 Rollin Roll Left to Right (QC): 4 Chair/Oxj-wo-Loyxo Xfer(QC): 4 Car Transfer (QC): 4 Gait (FIM): 5 Distance: 150' Walk 10 feet (QC): 4 Walk 10ft-Uneven Surface(QC): 4 Walk 50ft with 2 Turns (QC): 4 Walk 150 ft (QC): 4 Gait Level of Assist: 5 Gait Assistive Device: FWW Stairs (FIM): 2 # of Steps: 4 1 Step (curb) (QC): 4 4 Steps (QC): 4 Stairs Level Of Assist: 4 PT Plan Problem List Problem List: Activity Tolerance, Functional Strength, Safety, Balance, Gait, Transfer, Bed Mobility Treatment/Plan Treatment Plan: Continue Plan of Care Treatment Plan: Bed Mobility, Education, Functional Activity [place], Functional Strength, Group Therapy, Gait, Safety, Therapeutic Exercise, Transfers Treatment Duration: Mar 17, 2018 Frequency: At least 5 of 7 days/Wk (IRF) Estimated Hrs Per Day: 1.5 hours per day Patient and/or Family Agrees t: Yes Safety Risks/Education Patient Education: Gait Training, Transfer Techniques, Correct Positioning, Safety Issues Teaching Recipient: Patient Teaching Methods: Demonstration, Discussion Response to Teaching: Reinforcement Needed Time/GCodes Time In: 1330 Time Out: 1415 Total Billed Treatment Time: 45 Total Billed Treatment 1 visit GT 15' EX 30 MARCELL BADILLO PT Feb 24, 2018 14:20
--- NOTE | 2018-02-24 16:39 | PM & R (SOAP) Progress Note ---
Subjective This was a face to face visit with the patient. Date Seen by Provider: Feb 24, 2018 Time Seen by Provider: 08:00 Subjective/Events-last exam Patient was seen in his room this AM Patient adjusting well to unit Current labs and therapy reviewed Lovenox subcut added for dvt Prophylaxis Patient min to mod assist for transfers Date Identified: Feb 24, 2018 Time Identified: 14:00 Medication Intervention: Lovenox subcut added for dvt prophylaxis and CBC checked Review of Systems Neurological: Weakness Objective Physician Exam Last Set of Vital Signs Vital Signs Date Time Temp Pulse Resp B/P (MAP) Pulse Ox O2 Delivery O2 Flow Rate FiO2 02/24/18 05:03 98.4 74 16 155/79 (104) 96 NIV CPAP Capillary Refill : I&O Intake and Output 02/24/18 00:00 Intake Total 298 ml Balance 298 ml IV Total 298 ml Daily Weight Change No General: Alert, Oriented X3, Cooperative, No Acute Distress HEENT: Atraumatic, PERRLA, EOMI, Mucous Memb Moist/[place] Neck: Supple, No JVD Lungs: Clear to Auscultation Heart: Regular Rate Abdomen: Normal Bowel Sounds, Soft, No Tenderness Extremities: Other (trace edema legs) Neuro: Other (generalized weakness) Psych/Mental Status: Mental Status NL Results Lab Data Laboratory Tests 02/23/18 20:14: Glucometer 263H 02/23/18 21:37: Glucometer 286H 02/24/18 04:28: Glucometer 212H 02/24/18 10:15: White Blood Count 5.2, Red Blood Count 2.97L, Hemoglobin 8.6L, Hematocrit 26L, Mean Corpuscular Volume 89, Mean Corpuscular Hemoglobin 29, Mean Corpuscular Hemoglobin Concent 33, Red Cell Distribution Width 13.5, Platelet Count 183, Mean Platelet Volume 9.6, Neutrophils (%) (Auto) 74, Lymphocytes (%) (Auto) 12, Monocytes (%) (Auto) 6, Eosinophils (%) (Auto) 7, Basophils (%) (Auto) 1, Neutrophils # (Auto) 3.8, Lymphocytes # (Auto) 0.6L, Monocytes # (Auto) 0.3, Eosinophils # (Auto) 0.4H, Basophils # (Auto) 0.0, Sodium Level 142, Potassium Level 4.3, Chloride Level 108H, Carbon Dioxide Level 26, Anion Gap 8, Blood Urea Nitrogen 17, Creatinine 1.35H, Estimat Glomerular Filtration Rate 55, BUN/ Creatinine Ratio 13, Glucose Level 209H, Calcium Level 8.7, Corrected Calcium 9.4, Total Bilirubin 0.4, Aspartate Amino Transf (AST/SGOT) 14, Alanine Aminotransferase (ALT/SGPT) 24, Alkaline Phosphatase 99, Total Protein 5.4L, Albumin 3.1L 02/24/18 11:34: Glucometer 188H Assessment/Plan Assessment and Plan General debil secondary to postoperative anemia associated with Coagulase negative staph bacteremia with pyelonephritis reported on CT scan HCAP on triple antibiotic DM 2 controlled recent hx of C spine surgery DR Hardwick HTN controlled with med Hyperlipidemia GABRIELLA on cpap CHF compenstated Dermatitis Obesity Plan Continue PT/Ot ST has signed off Lovenox SUBCUT ordered for dvt prophylaxis FU with DR Younger PCP and Orthospine prn Team Conference 03-01-18 Co-Morbidities that are continuing to impact the rehab process: (include details ) SALEEM AMATO MD Feb 24, 2018 16:39
[2018-02-24] MEDS: FUROSEMIDE 20 MG (LASIX) TAB PO SCH (17:03)
[2018-02-24 18:00] VITALS: BP 188/94
[2018-02-24] MEDS ORDERED: lisINopril 10 MG (PRINIVIL) TABLET PO NR (18:15)
[2018-02-24] MEDS: ROSUVASTATIN 5 MG (CRESTOR) TABLET PO SCH (20:18)
[2018-02-24] MEDS: MELATONIN 3 MG TABLET PO PRN (23:35)
[2018-02-25] MEDS: PIPERACILLIN/TAZO 4.5 GM/NS 100 ML IV SCH ×6 (04:04→20:23)
[2018-02-25 05:21] VITALS: BP 148/72
[2018-02-25] MEDS: FERROUS SULF 325 MG (IRON) TAB PO SCH ×2 (06:32→16:20)
[2018-02-25] MEDS: GLIMEPIRIDE 4 MG (AMARYL) TAB PO SCH (06:32)
[2018-02-25] MEDS: inSUlin ASPART (NovoLOG) 1 UNIT/0.01 ML (CHARGE PER UNIT) SC SCH ×4 (06:33→20:31)
[2018-02-25] MEDS: VANCOMYCIN ORAL 250 MG/5 ML 120 ML PO SCH ×8 (06:37→22:29)
--- NOTE | 2018-02-25 08:05 | PM & R (SOAP) Progress Note ---
Subjective This was a face to face visit with the patient. Date Seen by Provider: Feb 25, 2018 Time Seen by Provider: 07:30 Subjective/Events-last exam Patient was seen in his room this AM Patient request that Lasix regimen be resumed to home regimen 40 in AM and 20 in PM Blood pressure elevated last evening and patient does have peripheral edeam in ankles,Lisinopril ordered last evening with improvement in BP Disciussed case with evening RN last night.Patient Min to mod assist for transfers Date Identified: Feb 25, 2018 Time Identified: 07:30 Medication Intervention: Lasix dose adjusted and Lisionpril added for Poorly controlled HTN Review of Systems Cardiovascular: Edema Neurological: Weakness Objective Physician Exam Last Set of Vital Signs Vital Signs Date Time Temp Pulse Resp B/P (MAP) Pulse Ox O2 Delivery O2 Flow Rate FiO2 02/25/18 05:21 98.5 71 20 148/72 (97) 98 NIV CPAP Capillary Refill : I&O Intake and Output 02/25/18 00:00 Intake Total 4425 ml Output Total 725 ml Balance 3700 ml Intake Oral 2520 ml IV Total 1905 ml Output Urine Total 725 ml # Voids 9 # Bowel Movements 2 General: Alert, Oriented X3, Cooperative, No Acute Distress HEENT: Atraumatic, PERRLA, EOMI, Mucous Memb Moist/[place] Neck: Supple, No JVD Lungs: Clear to Auscultation Heart: Regular Rate Abdomen: Normal Bowel Sounds, Soft, No Tenderness Extremities: Other (+ edema Both ankles) Neuro: Other (generalized weakness) Psych/Mental Status: Mental Status NL Results Lab Data Laboratory Tests 02/23/18 20:14: Glucometer 263H 02/23/18 21:37: Glucometer 286H 02/24/18 04:28: Glucometer 212H 02/24/18 10:15: White Blood Count 5.2, Red Blood Count 2.97L, Hemoglobin 8.6L, Hematocrit 26L, Mean Corpuscular Volume 89, Mean Corpuscular Hemoglobin 29, Mean Corpuscular Hemoglobin Concent 33, Red Cell Distribution Width 13.5, Platelet Count 183, Mean Platelet Volume 9.6, Neutrophils (%) (Auto) 74, Lymphocytes (%) (Auto) 12, Monocytes (%) (Auto) 6, Eosinophils (%) (Auto) 7, Basophils (%) (Auto) 1, Neutrophils # (Auto) 3.8, Lymphocytes # (Auto) 0.6L, Monocytes # (Auto) 0.3, Eosinophils # (Auto) 0.4H, Basophils # (Auto) 0.0, Sodium Level 142, Potassium Level 4.3, Chloride Level 108H, Carbon Dioxide Level 26, Anion Gap 8, Blood Urea Nitrogen 17, Creatinine 1.35H, Estimat Glomerular Filtration Rate 55, BUN/ Creatinine Ratio 13, Glucose Level 209H, Calcium Level 8.7, Corrected Calcium 9.4, Total Bilirubin 0.4, Aspartate Amino Transf (AST/SGOT) 14, Alanine Aminotransferase (ALT/SGPT) 24, Alkaline Phosphatase 99, Total Protein 5.4L, Albumin 3.1L 02/24/18 11:34: Glucometer 188H 02/24/18 16:51: Glucometer 194H 02/24/18 21:56: Glucometer 295H 02/25/18 06:24: Glucometer 164H Assessment/Plan Assessment and Plan General debil secondary to postop anemia with coagulase Neg stap bacteremia Pyelonephritis noted on CT scan Anemia HCAP under treatment DM 2 Rectent hx of C spine surgery for Myelopathy HTN better controlled CHF meds adjusted and CXR ordered Peripheral edeam associated with above Hypoalbuminemia Dermatitis Obesity HLP GABRIELLA on CPAP Plan Continue PT/OT Adjust Lasix Monitor wt and edeam Check CXR Consulted PCP DR Younger to assist with medical management Co-Morbidities that are continuing to impact the rehab process: (include details ) SALEEM AMATO MD Feb 25, 2018 08:05
--- NOTE | 2018-02-25 08:49 | Physical Therapy Daily Note ---
PT Daily Note-Current Subjective Pt finishing in restroom with Nurse present upon arrival. Pt agrees to PT. Pain Numeric Pain Scale: 5-Moderate Pain Location Body Site: Genital Pain Description: Ache, Tightness Mental Status Patient Orientation: Person, Place, Time, Situation Attachments: IV Transfers Functional [place] Measure 0=Not Assessed/NA 4=Minimal Assistance 1=Total Assistance 5=Supervision or Setup 2=Maximal Assistance 6=Modified [place] 3=Moderate Assistance 7=Complete IndependenceIRFPAI Quality Coding Scale 6 Independent with activity with or without an assistive device 5 Patient requires set up or clean up by helper. Patient completes activity by themselves 4 Supervision or touching assist ([facility]). [place] provide cues , steadying assist 3 The helper provides less than half the effort to complete the activity 2 The helper provides more than half the effort to complete the activity 1 Dependent. The helper does all the effort to complete an activity 7 Patient refused to complete or attempt activity 9 The patient did not perform the activity before the current illness or injury 88 Not attempted due to Medical conditions or safety concerns Scootin Sit to/from Stand: 4 Sit to Stand (QC): 4 Weight Bearing Right Lower Extremity: Right Full Weight Bearing Left Lower Extremity: Left Full Weight Bearing Gait Training Does the Patient Walk?: Yes Distance (FIM): 3=150 ft Distance: 150' Walk 10 feet (QC): 5 Walk 50 ft with 2 Turns(QC): 5 Walk 150 ft (QC): 5 Gait Level of Assist: 5 Gait Persons Needed: 1 Gait Assistive Device: FWW Pt's gait has slow bee, one event of LOB with stepping backward but was able to self correct. Wheelchair Training Does the Pt Use a Wheelchair?: No Exercises Supine Ex: Ankle pumps, Quad Set, Straight leg raise, Hip abd/add Supine Reps: 15 NuStep Minutes: 25 NuStep Workload: 5 Treatments Pt completes visit to restroom and ambulates back to recliner for brief rest. Pt stands from recliner at [facility] using FWW and ambulates in hallway and [facility] to [facility]. Pt uses NuStep and asked for increased WL to 5 as well as extending time to 25m. Pt returns to room after short rest to complete with PRISON OFFICER instruction Supine Ex in recliner. Pt has all needs met at end of tx. Assessment Current Status: Good Progress Pt reports fatigue and "maybe overdoing it on the NuStep today". PT Short Term Goals Short Term Goals Time Frame: Mar 03, 2018 Gait (FIM): 2 Gait Distance Comment: 100' Gait Level of Assist: 4 Gait Assistive Device: FWW Wheelchair Distance: 50' PT Long-Term Goals Chief Quality Officer Goals PT Chief Quality Officer Goals Time Frame: Mar 17, 2018 Transfers (B,C,W/C) (FIM): 5 Sit to Lying (QC): 4 Lying-Sitting on Side/Bed(QC): 4 Sit to Stand (QC): 4 Rollin Roll Left to Right (QC): 4 Chair/Gye-ot-Ruqfu Xfer(QC): 4 Car Transfer (QC): 4 Gait (FIM): 5 Distance: 150' Walk 10 feet (QC): 4 Walk 10ft-Uneven Surface(QC): 4 Walk 50ft with 2 Turns (QC): 4 Walk 150 ft (QC): 4 Gait Level of Assist: 5 Gait Assistive Device: FWW Stairs (FIM): 2 # of Steps: 4 1 Step (curb) (QC): 4 4 Steps (QC): 4 Stairs Level Of Assist: 4 PT Plan Problem List Problem List: Activity Tolerance, Functional Strength, Safety, Balance, Gait, Transfer Treatment/Plan Treatment Plan: Continue Plan of Care Treatment Plan: Bed Mobility, Education, Functional Activity [place], Functional Strength, Group Therapy, Gait, Safety, Therapeutic Exercise, Transfers Treatment Duration: Mar 17, 2018 Frequency: At least 5 of 7 days/Wk (IRF) Estimated Hrs Per Day: 1.5 hours per day Patient and/or Family Agrees t: Yes Safety Risks/Education Patient Education: Gait Training, Transfer Techniques, Correct Positioning, Safety Issues Teaching Recipient: Patient Teaching Methods: Discussion Response to Teaching: Verbalize Understanding Time/GCodes Time In: 740 Time Out: 840 Total Billed Treatment Time: 60 Total Billed Treatment 1, FA (15m), GT (15m) & EX x2 (30m) G Codes Necessary: HILARY Gomez PRISON OFFICER Feb 25, 2018 08:49
[2018-02-25] MEDS: ENOXAPARIN 40 MG/0.4 ML (LOVENOX) SYR SC SCH ×2 (09:16→22:16)
[2018-02-25 09:52] VITALS: BP 182/90
[2018-02-25] MEDS: meTOprolol TARTRATE 50 MG (LOPRESSOR) TAB PO SCH ×2 (09:54→20:24)
[2018-02-25] MEDS: ASPIRIN E.C. 81 MG (ECOTRIN) TAB PO SCH (09:54)
[2018-02-25] MEDS: amLODIPine 5 MG (NORVASC) TAB PO SCH (09:54)
[2018-02-25] MEDS: LOSARTAN 100 MG (COZAAR) TABLET PO SCH (09:54)
[2018-02-25] MEDS: GABAPENTIN 600 MG (NEURONTIN) TAB PO SCH ×3 (09:54→20:24)
[2018-02-25] MEDS: CLOPIDOGREL 75 MG (PLAVIX) TABLET PO SCH (09:54)
[2018-02-25] MEDS: LORATADINE (CLARITIN) 10 MG TAB PO SCH (09:54)
[2018-02-25] MEDS: FUROSEMIDE 40 MG (LASIX) TAB PO SCH (09:56)
[2018-02-25] MEDS: LINEZOLID IVPB 300 ML IV SCH ×2 (10:04→20:24)
--- NOTE | 2018-02-25 10:25 | Occupational Ther Daily Note ---
OT Current Status-Daily Note Subjective Pt sitting in chair, agrees to treatment. Pt reports fatigue and states he is having 2/10 pain in LE. Mental Status/Objective Functional [place] Measure 0=Not Assessed/NA 4=Minimal Assistance 1=Total Assistance 5=Supervision or Setup 2=Maximal Assistance 6=Modified [place] 3=Moderate Assistance 7=Complete [place] ADL-Treatment Pt requests shower this morning. Sit to stand from recliner with moderate assistance. Gait to restroom with FWW. Transfer to tall shower chair in walk in shower with minimal assistance. Pt doffed shirt with SBA and doffed underwear and pants and minimal assistance. Pt instructed in use of dressing stick to doff socks. Pt able to doff with SBA. Pt completed seated bathing using hand held shower. Upper body bathing completed with SBA. Pt able to wash bilateral upper legs and francesco area, but required assist for other areas. Mod assist to stand from shower chair. Don pullover shirt with set up. Pt required assist to start underwear and pants over feet. Stood with moderate assistance for pant hike. Attempted to use sock aid to don socks, but unable to use secondary to swelling. Total assist required to don socks. Pt brushed hair with set up, declined to brush teeth at this time. Pt fatigues with activity and requires occasional rest breaks throughout session. Pt sitting in chair with needs met and RN present after session. Functional [place] Measure 0=Not Assessed/NA 4=Minimal Assistance 1=Total Assistance 5=Supervision or Setup 2=Maximal Assistance 6=Modified [place] 3=Moderate Assistance 7=Complete IndependenceIRFPAI Quality Coding Scale 6 Independent with activity with or without an assistive device 5 Patient requires set up or clean up by helper. Patient completes activity by themselves 4 Supervision or touching assist ([facility]). [place] provide cues , steadying assist 3 The helper provides less than half the effort to complete the activity 2 The helper provides more than half the effort to complete the activity 1 Dependent. The helper does all the effort to complete an activity 7 Patient refused to complete or attempt activity 9 The patient did not perform the activity before the current illness or injury 88 Not attempted due to Medical conditions or safety concerns Grooming (FIM): 5 Bathing (FIM): 3 Bathing Location: L Arm, R Arm, L Upper Leg, R Upper Leg, Chest, Abdomen, Perineal Area Shower/Bathe Self (QC): 3 Upper Body (FIM): 5 Upper Body Dressing (QC): 5 Lower Body Dressing (FIM): 2 On/Off Footwear (QC): 3 Shower Transfer(FIM): 4 Education OT Patient Education: Modified ADL techniques Teaching Recipient: Patient Teaching Methods: Demonstration, Discussion Response to Teaching: Verbalize Understanding, Return Demonstration OT Short Term Goals Short Term Goals Time Frame: Mar 03, 2018 Bathing(FIM): 4 Lower Body Dressing(FIM): 4 Toileting(FIM): 4 Toilet/Commode Transfer(FIM): 4 Additional Short Term Goals: 2-Verbalize Understanding, 3-ImproveStrength/[place] 1=Demonstrate adherence to instructed precautions during ADL tasks. 2=Patient will verbalize/demonstrate understanding of assistive devices/ modifications for ADL. 3=Patient will improve strength/tolerance for activity to enable patient to perform ADL's. OT Decal Applier Goals Decal Applier Goals Time Frame: Mar 17, 2018 Eating (FIM): 7 Eating (QC): 6 Groomin Oral Hygiene (QC): 6 Bathing(FIM): 5 Shower/Bathe Self (QC): 5 Upper Body Dressing(FIM): 6 Upper Body Dressing (QC): 6 Lower Body Dressing(FIM): 5 Lower Body Dressing (QC): 5 On/Off Footwear (QC): 5 Toileting(FIM): 5 Toileting Hygiene (QC): 5 Toilet/Commode Transfer(FIM): 5 Toilet/Commode Transfer (QC): 5 Shower Transfer(FIM): 5 Additional Goals: 1-Demonstrate ADL Tasks, 2-Verbalize Understanding, 3- ImproveStrength/[place] 1=Demonstrate adherence to instructed precautions during ADL tasks. 2=Patient will verbalize/demonstrate understanding of assistive devices/ modifications for ADL. 3=Patient will improve strength/tolerance for activity to enable patient to perform ADL's. OT Education/Plan Discharge Recommendations Plan/Recommendations: Continue POC Treatment Plan/Plan of Care Patient would benefit from OT for education, treatment and training to promote independence in ADL's, mobility, safety and/or upper extremity function for ADL' s. Plan of Care: ADL Retraining, Functional Mobility, Group Exercise/Act as Ind, UE Funct Exercise/Act Treatment Duration: Mar 17, 2018 Frequency: Modified Program (IRF) (25/12) Estimated Hrs Per Day: 1.5 hours per day Agreement: Yes Rehab Potential: Good Time/GCodes Start Time: 09:00 Stop Time: 10:00 Total Time Billed (hr/min): 60 Billed Treatment Time 1 visit, ADLx4(60minutes) BRENT COLLAZO OT Feb 25, 2018 10:25
[2018-02-25 11:44] VITALS: BP 173/90
--- NOTE | 2018-02-25 11:53 | Consultation-Hospitalist ---
HPI History of Present Illness: HPI/Chief Complaint CC: Medical management while in inpatient rehabilitation HPI: This is a 53-year-old white male with a history of diabetes and hypertension who presented to the inpatient rehabilitation facility after transferred from [facility] after he was sent there for second opinion after a very long recovery and complicated hospital course following a cervical spine surgery that was an uncomplicated surgery. He had required intubation 2 days after surgery and urinary retention with UTI and subsequently had a very slow recovery in such severe weakness and even though MRI of the brain was negative family requested a transfer for second opinion were neurology services were at [facility]'s about was completed 2 weeks ago patient maintained in inpatient status at that point at [facility] and full evaluation was obtained along with infectious disease and neurology consultations which resulted in coagulase-negative Staph bactermia placed on Zyvox, pneumonia on Zosyn and Vanc PO for presumed C diff colitis. He was found to have had just critical illness myopathy and a very slow recovery following an uncomplicated cervical spine surgery. Patient is back on Lasix to help with the edema since it was held at [facility]. Bowels are moving Refuses Lovenox because he is on Plavix and aspirin and the Lovenox injection made him bleed yesterday. Hypertension remains elevated Patient appears to have very complicated medical problems at baseline and patient is having difficulty with this change of his independent status but overall he is progressing and walking well. Source: patient Exam Limitations: no limitations Date Seen 02/25/18 Attending Physician Ayaan Benito MD PCP Yang Younger DO Referring Physician Date of Admission Feb 23, 2018 at 17:40 Home Medications & Allergies Home Medications Reviewed patient Home Medication Reconciliation performed by pharmacy medication reconciliations mechanical facilities technician and/or nursing. Patients Allergies have been reviewed. Allergies Allergies Coded Allergies tazobactam (Verified Allergy, Unknown, RASH, 02/10/18) Past Hnchmep-Cpbhlv-Cemeay Hx Past Med/Social Hx: Reviewed Nursing Past Med/Soc Hx, Reviewed and Corrections made Patient Social History Marrital Status: Alcohol Use: Denies Use Recreational Drug Use: No Smoking Status: Never a Smoker 2nd Hand Smoke Exposure: No Physical Abuse Screen: No Sexual Abuse: No Recent Foreign Travel: No Contact w/other who traveled: No Recent Hopitalizations: Yes (PNEUMONIA, SPINAL WURGERY) Recent Infectious Disease Expo: No Immunizations Up To Date Tetanus Booster (TDap): Unknown Date of Pneumonia Vaccine: Jun 16, 2015 Date of Influenza Vaccine: Jun 20, 2017 Seasonal Allergies Seasonal Allergies: No Past Medical History Surgeries: Cardiac, Coronary Stent, Nose Respiratory: Pneumonia, Sleep Apnea Currently Using CPAP: Yes Currently Using BIPAP: No Cardiac: Cardiomyopathy, Coronary Artery Disease, Hypertension, Irregular Heartbeat, Peripheral Vascular Neurological: Neuropathy Reproductive: Yes (E.D.) Sexually Transmitted Disease: No HIV/AIDS: No Gastrointestinal: Chronic Diarrhea Musculoskeletal: Arthritis, Chronic Back Pain Endocrine: Diabetes, Non-Insulin dep Psychosocial: Anxiety, Depression History of Blood Disorders: No Adverse Reaction to Blood [place]: No Family History Arthritis G8 BROTHER (knee replacement) Cardiovascular disease 19 FATHER (chf) Deafness or hearing loss 19 MOTHER (vertigo) Diabetes mellitus 19 MOTHER Prostate cancer 19 FATHER No Pertinent Family Hx, Hypertension Review of Systems Constitutional: see HPI, weakness EENTM: no symptoms reported Respiratory: no symptoms reported Cardiovascular: edema Gastrointestinal: no symptoms reported Genitourinary: no symptoms reported Musculoskeletal: back pain, muscle weakness, neck pain Skin: no symptoms reported Psychiatric/Neurological: Anxiety, Depressed All Other Systems Reviewed Negative Unless Noted: Yes Physical Exam Physical Exam Vital Signs Vital Signs - First Documented 02/23/18 17:45 Temp 97.9 Pulse 80 Resp 16 B/P (MAP) 191/94 (126) Pulse Ox 96 O2 Delivery Room Air Capillary Refill : Height, Weight, BMI Height: 5'11.00" Weight: 307lbs. 1.0oz. [id number]; 42.8 BMI Method:Stated General Appearance: No Apparent Distress, WD/WN, Chronically ill, Obese Eyes: Bilateral Eye Normal Inspection, Bilateral Eye PERRL HEENT: PERRL/EOMI, Normal ENT Inspection, Pharynx Normal Neck: Full Range of Motion, Normal Inspection, Non Tender, Supple, Carotid Bruit Respiratory: Chest Non Tender, Lungs Clear, Normal Breath Sounds, No Accessory Muscle Use, No Respiratory Distress Cardiovascular: Regular Rate, Rhythm, No Edema, No Gallop, No JVD, No Murmur, Normal Peripheral Pulses Gastrointestinal: Normal Bowel Sounds, No Organomegaly, No Pulsatile Mass, Non Tender, Soft Back: Normal Inspection, No CVA Tenderness, No Vertebral Tenderness Extremity: Normal Capillary Refill, Normal Inspection, Normal Range of Motion, Non Tender, No Calf Tenderness, Pedal Edema Neurologic/Psychiatric: Alert, Oriented x3, No Motor/Sensory Deficits, Depressed Affect, Other (generalized weakness) Skin: Normal Color, Warm/Dry Lymphatic: No Adenopathy Results Results/Procedures Labs Laboratory Tests 02/24/18 10:15 Patient resulted labs reviewed. Assessment/Plan Assessment and Plan Assess & Plan/Chief Complaint Assessment: Critical illness myopathy in need of inpatient rehabilitation facility Pneumonia on Zosyn Coagulase negative staph bacteremia placed on Zyvox Presumed C. difficile on [place] by mouth 4 times a day Diabetes mellitus [id number] at baseline Hypertension [id number] Lower extremity edema restarting Lasix Chronic renal insufficiency baseline creatinine 1.3 Plan: Maintain abx Monitor loose stools Restart Lasix Change Norvasc to 10mg daily and add Hydralazine and Clonidine for malignant HTN OOC Diagnosis/Problems Diagnosis/Problems (1) Weakness acquired in ICU Status: Acute (2) Pneumonia Status: Acute Qualifiers: Pneumonia type: due to unspecified organism Laterality: unspecified laterality Lung location: unspecified part of lung Qualified Codes: J18.9 - Pneumonia, unspecified organism (3) Bacteremia due to coagulase-negative Staphylococcus Status: Acute (4) C. difficile colitis Status: Acute (5) Depression Status: Acute Qualifiers: Depression Type: unspecified Qualified Codes: F32.9 - Major depressive disorder, single episode, unspecified (6) Apathy Status: Acute (7) Disuse atrophy of muscle Status: Acute (8) Anemia Status: Chronic Qualifiers: Anemia type: unspecified type Qualified Codes: D64.9 - Anemia, unspecified (9) Uncontrolled diabetes mellitus Status: Chronic Qualifiers: Diabetes mellitus type: type 2 Glycemic state: with hyperglycemia Qualified Codes: E11.65 - Type 2 diabetes mellitus with hyperglycemia (10) Uncontrolled hypertension Status: Chronic (11) Non-compliance Status: Chronic (12) Peripheral neuropathy Status: Chronic Qualifiers: Peripheral neuropathy type: idiopathic neuropathy, unspecified Qualified Codes: G60.9 - Hereditary and idiopathic neuropathy, unspecified Clinical Quality Measures DVT/VTE Risk/Contraindication: Risk Factor Score Per Nursin RFS Level Per Nursing on Admit: 4+=Very High JULY MIJARES DO Feb 25, 2018 11:53
[2018-02-25] MEDS: lisINopril 10 MG (PRINIVIL) TABLET PO SCH (12:07)
[2018-02-25] MEDS ORDERED: cloNIDine 0.1 MG (CATAPRES) TAB PO PRN (12:30)
[2018-02-25] MEDS ORDERED: amLODIPine 5 MG (NORVASC) TAB PO NR (12:30)
[2018-02-25] MEDS: hydrALAZINE (APRESOLINE) 25 MG TAB PO SCH ×2 (13:00→20:24)
--- NOTE | 2018-02-25 14:40 | Diagnostic Imaging Report ---
EXAM: CHEST PA/LAT (2 VIEW) INDICATION: CHF. COMPARISON: Chest radiograph 02/09/2018. FINDINGS: Normal heart size. Increasing pulmonary vascular congestion and mild interstitial edema. No dense consolidation or pleural effusion. No pneumothorax. Right PICC tip near the RA SVC junction. Postoperative changes in the lower cervical spine. No acute osseous findings. IMPRESSION: 1. Increasing prominence of the pulmonary vascularity with mild interstitial edema. 2. Right PICC tip near the RA SVC junction. Dictated by: Dictated on workstation # [id number]
[2018-02-25] MEDS: FUROSEMIDE 20 MG (LASIX) TAB PO SCH (16:20)
[2018-02-25 16:22] VITALS: BP 159/79
[2018-02-25] MEDS: ROSUVASTATIN 5 MG (CRESTOR) TABLET PO SCH (20:24)
[2018-02-25] MEDS: MENTHOL/ZINC OXIDE (CALMOSEPTINE) 113 GM TUBE TOP SCH (20:34)
[2018-02-25] MEDS: MELATONIN 3 MG TABLET PO PRN (21:02)
[2018-02-26] MEDS: PIPERACILLIN/TAZO 4.5 GM/NS 100 ML IV SCH ×4 (05:54→12:13)
[2018-02-26 06:00] VITALS: BP 150/76
[2018-02-26] MEDS: inSUlin ASPART (NovoLOG) 1 UNIT/0.01 ML (CHARGE PER UNIT) SC SCH ×4 (06:07→21:15)
[2018-02-26] MEDS: GLIMEPIRIDE 4 MG (AMARYL) TAB PO SCH (06:07)
[2018-02-26] MEDS: FERROUS SULF 325 MG (IRON) TAB PO SCH ×2 (06:07→16:16)
[2018-02-26] MEDS: VANCOMYCIN ORAL 250 MG/5 ML 120 ML PO SCH ×6 (06:08→17:13)
[2018-02-26 06:58] LABS: BASOPHILS % (AUTO) 1 % (0-10); EOSINOPHILS # (AUTO) 0.3 10^3/uL (0.0-0.3); EOSINOPHILS % (AUTO) 8 % (0-10); HEMATOCRIT 23 % (40-54); HEMOGLOBIN 7.4 G/DL (13.3-17.7); LYMPHOCYTES # (AUTO) 0.9 X 10^3 (1.0-4.0); LYMPHOCYTES % (AUTO) 24 % (12-44); MEAN CORPUSCULAR HEMOGLOBIN 29 PG (25-34); MEAN CORPUSCULAR HGB CONC 33 G/DL (32-36); MEAN CORPUSCULAR VOLUME 89 FL (80-99); MEAN PLATELET VOLUME 9.8 FL (7.4-10.4); MONOCYTES # (AUTO) 0.3 X 10^3 (0.0-1.0); MONOCYTES % (AUTO) 7 % (0-12); NEUTROPHILS # (AUTO) 2.2 X 10^3 (1.8-7.8); NEUTROPHILS % (AUTO) 60 % (42-75); PLATELET COUNT 148 10^3/uL (130-400); RED BLOOD COUNT 2.54 10^6/uL (4.35-5.85); RED CELL DISTRIBUTION WIDTH 13.3 % (10.0-14.5); WHITE BLOOD COUNT 3.7 10^3/uL (4.3-11.0)
[2018-02-26 07:18] LABS: ALBUMIN 2.8 GM/DL (3.2-4.5); BILIRUBIN,TOTAL 0.4 MG/DL (0.1-1.0); CALCIUM 8.4 MG/DL (8.5-10.1); CREATININE SERUM 1.42 MG/DL (0.60-1.30); POTASSIUM 4.1 MMOL/L (3.6-5.0); TOTAL PROTEIN 4.8 GM/DL (6.4-8.2)
[2018-02-26] MEDS: LOSARTAN 100 MG (COZAAR) TABLET PO SCH (08:33)
[2018-02-26] MEDS: ASPIRIN E.C. 81 MG (ECOTRIN) TAB PO SCH (08:33)
[2018-02-26] MEDS: amLODIPine 10 MG (NORVASC) TAB PO SCH (08:33)
[2018-02-26] MEDS: meTOprolol TARTRATE 50 MG (LOPRESSOR) TAB PO SCH ×2 (08:33→21:14)
[2018-02-26] MEDS: hydrALAZINE (APRESOLINE) 25 MG TAB PO SCH ×3 (08:33→21:14)
[2018-02-26] MEDS: GABAPENTIN 600 MG (NEURONTIN) TAB PO SCH ×3 (08:33→21:14)
[2018-02-26] MEDS: FUROSEMIDE 40 MG (LASIX) TAB PO SCH (08:33)
[2018-02-26] MEDS: CLOPIDOGREL 75 MG (PLAVIX) TABLET PO SCH (08:33)
[2018-02-26] MEDS: LORATADINE (CLARITIN) 10 MG TAB PO SCH (08:33)
[2018-02-26] MEDS: MENTHOL/ZINC OXIDE (CALMOSEPTINE) 113 GM TUBE TOP SCH ×2 (08:34→21:26)
[2018-02-26] MEDS: LINEZOLID IVPB 300 ML IV SCH (08:46)
[2018-02-26] MEDS: ENOXAPARIN 40 MG/0.4 ML (LOVENOX) SYR SC SCH ×2 (10:10→21:26)
[2018-02-26] MEDS: lisINopril 10 MG (PRINIVIL) TABLET PO SCH (11:43)
--- NOTE | 2018-02-26 12:00 | Progress Note-Hospitalist ---
Subjective HPI/CC On Admission Date Seen by Provider: Feb 26, 2018 Time Seen by Provider: 11:15 CC: Medical management while in inpatient rehabilitation HPI: This is a 53-year-old white male with a history of diabetes and hypertension who presented to the inpatient rehabilitation facility after transferred from [facility] after he was sent there for second opinion after a very long recovery and complicated hospital course following a cervical spine surgery that was an uncomplicated surgery. He had required intubation 2 days after surgery and urinary retention with UTI and subsequently had a very slow recovery in such severe weakness and even though MRI of the brain was negative family requested a transfer for second opinion were neurology services were at [facility]'s about was completed 2 weeks ago patient maintained in inpatient status at that point at [facility] and full evaluation was obtained along with infectious disease and neurology consultations which resulted in coagulase-negative Staph bactermia placed on Zyvox, pneumonia on Zosyn and Vanc PO for presumed C diff colitis. He was found to have had just critical illness myopathy and a very slow recovery following an uncomplicated cervical spine surgery. Patient is back on Lasix to help with the edema since it was held at [facility]. Bowels are moving Refuses Lovenox because he is on Plavix and aspirin and the Lovenox injection made him bleed yesterday. Hypertension remains elevated Patient appears to have very complicated medical problems at baseline and patient is having difficulty with this change of his independent status but overall he is progressing and walking well. Subjective/Events-last exam Patient waiting for the football game to start Lasix as really helped diuresis He wanted to know why his Lasix was held when he was over at [facility] and I explained that that was to protect his kidneys since he does have chronic renal insufficiency Bowels are doing okay maintained on vancomycin by mouth for C. difficile Antibiotics will be completed today of Zyvox and Zosyn Reviewed chest x-ray revealing vascular congestion but restarted Lasix just yesterday so we'll continue treatment for that Review of Systems General: Fatigue Neurological: Weakness Objective Exam Vital Signs Vital Signs Date Time Temp Pulse Resp B/P (MAP) Pulse Ox O2 Delivery O2 Flow Rate FiO2 02/26/18 09:59 Room Air 02/26/18 06:00 97.9 60 18 150/76 (100) 96 Capillary Refill : General Appearance: No Apparent Distress, WD/WN, Chronically ill, Obese Respiratory: Chest Non Tender, Lungs Clear, Normal Breath Sounds, No Accessory Muscle Use, No Respiratory Distress Cardiovascular: Regular Rate, Rhythm, No Edema, No Gallop, No JVD, No Murmur, Normal Peripheral Pulses Extremity: Normal Capillary Refill, Normal Inspection, Normal Range of Motion, Non Tender, No Calf Tenderness, Pedal Edema Neurologic/Psychiatric: Alert, Oriented x3, No Motor/Sensory Deficits, Depressed Affect Skin: Normal Color, Warm/Dry Results/Procedures Lab Laboratory Tests 02/26/18 06:50 Patient resulted labs reviewed. Assessment/Plan Assessment and Plan Assess & Plan/Chief Complaint Assessment: Critical illness myopathy in need of inpatient rehabilitation facility Pneumonia on Zosyn Coagulase negative staph bacteremia placed on Zyvox Presumed C. difficile on [place] by mouth 4 times a day Diabetes mellitus [id number] at baseline Hypertension [id number] Lower extremity edema restarting Lasix Chronic renal insufficiency baseline creatinine 1.3 Plan: Complete abx Monitor loose stools Restart Lasix Change Norvasc to 10mg daily and add Hydralazine and Clonidine for malignant HTN OOC Diagnosis/Problems Diagnosis/Problems (1) Weakness acquired in ICU Status: Acute (2) Pneumonia Status: Acute Qualifiers: Pneumonia type: due to unspecified organism Laterality: unspecified laterality Lung location: unspecified part of lung Qualified Codes: J18.9 - Pneumonia, unspecified organism (3) Bacteremia due to coagulase-negative Staphylococcus Status: Acute (4) C. difficile colitis Status: Acute (5) Depression Status: Acute Qualifiers: Depression Type: unspecified Qualified Codes: F32.9 - Major depressive disorder, single episode, unspecified (6) Apathy Status: Acute (7) Disuse atrophy of muscle Status: Acute (8) Anemia Status: Chronic Qualifiers: Anemia type: unspecified type Qualified Codes: D64.9 - Anemia, unspecified (9) Uncontrolled diabetes mellitus Status: Chronic Qualifiers: Diabetes mellitus type: type 2 Glycemic state: with hyperglycemia Qualified Codes: E11.65 - Type 2 diabetes mellitus with hyperglycemia (10) Uncontrolled hypertension Status: Chronic (11) Non-compliance Status: Chronic (12) Peripheral neuropathy Status: Chronic Qualifiers: Peripheral neuropathy type: idiopathic neuropathy, unspecified Qualified Codes: G60.9 - Hereditary and idiopathic neuropathy, unspecified (13) Edema Status: Acute Qualifiers: Edema type: unspecified Qualified Codes: R60.9 - Edema, unspecified Clinical Quality Measures DVT/VTE Risk/Contraindication: Risk Factor Score Per Nursin RFS Level Per Nursing on Admit: 4+=Very High JULY MIJARES DO Feb 26, 2018 12:00
[2018-02-26 16:15] VITALS: BP 162/89
[2018-02-26] MEDS: FUROSEMIDE 20 MG (LASIX) TAB PO SCH (16:16)
[2018-02-26] MEDS: ROSUVASTATIN 5 MG (CRESTOR) TABLET PO SCH (21:14)
[2018-02-26] MEDS: MELATONIN 3 MG TABLET PO PRN (21:19)
[2018-02-26] MEDS: ONDANSETRON 4 MG (ZOFRAN) ORAL DISSOLVE TAB PO PRN (21:19)
[2018-02-27 06:07] VITALS: BP 133/75
[2018-02-27 06:12] LABS: BASOPHILS % (AUTO) 1 % (0-10); EOSINOPHILS # (AUTO) 0.3 10^3/uL (0.0-0.3); EOSINOPHILS % (AUTO) 10 % (0-10); HEMATOCRIT 24 % (40-54); HEMOGLOBIN 7.4 G/DL (13.3-17.7); LYMPHOCYTES # (AUTO) 0.9 X 10^3 (1.0-4.0); LYMPHOCYTES % (AUTO) 26 % (12-44); MEAN CORPUSCULAR HEMOGLOBIN 28 PG (25-34); MEAN CORPUSCULAR HGB CONC 31 G/DL (32-36); MEAN CORPUSCULAR VOLUME 90 FL (80-99); MEAN PLATELET VOLUME 9.3 FL (7.4-10.4); MONOCYTES # (AUTO) 0.3 X 10^3 (0.0-1.0); MONOCYTES % (AUTO) 9 % (0-12); NEUTROPHILS # (AUTO) 1.8 X 10^3 (1.8-7.8); NEUTROPHILS % (AUTO) 54 % (42-75); PLATELET COUNT 148 10^3/uL (130-400); RED BLOOD COUNT 2.63 10^6/uL (4.35-5.85); RED CELL DISTRIBUTION WIDTH 13.7 % (10.0-14.5); WHITE BLOOD COUNT 3.3 10^3/uL (4.3-11.0)
[2018-02-27 06:27] LABS: ALBUMIN 2.9 GM/DL (3.2-4.5); BILIRUBIN,TOTAL 0.3 MG/DL (0.1-1.0); CALCIUM 8.1 MG/DL (8.5-10.1); CREATININE SERUM 1.63 MG/DL (0.60-1.30); POTASSIUM 4.2 MMOL/L (3.6-5.0); TOTAL PROTEIN 4.5 GM/DL (6.4-8.2)
[2018-02-27] MEDS: inSUlin ASPART (NovoLOG) 1 UNIT/0.01 ML (CHARGE PER UNIT) SC SCH ×4 (06:31→22:02)
[2018-02-27] MEDS: FERROUS SULF 325 MG (IRON) TAB PO SCH ×2 (06:51→16:58)
[2018-02-27] MEDS: GLIMEPIRIDE 4 MG (AMARYL) TAB PO SCH (06:52)
--- NOTE | 2018-02-27 08:07 | Progress Note (SOAP) ---
Subjective Time Seen by Provider: 08:04 Subjective/Events-last exam Patient has no complaints today. Patient is improving. Patient able to get around with a walker today. Objective Exam Vital Signs Date Time Temp Pulse Resp B/P (MAP) Pulse Ox O2 Delivery O2 Flow Rate FiO2 02/27/18 06:07 98.5 76 20 133/75 (94) 94 Room Air 02/26/18 16:15 98.6 85 18 162/89 (113) 96 Room Air 02/26/18 09:59 Room Air I & O 02/27/18 07:00 Intake Total 1894 ml Output Total 2050 ml Balance -156 ml Capillary Refill : General Appearance: No Apparent Distress, WD/WN HEENT: Normal ENT Inspection Neck: Normal Inspection Respiratory: Lungs Clear, No Accessory Muscle Use, No Respiratory Distress Cardiovascular: Regular Rate, Rhythm, No Murmur Gastrointestinal: non tender Results Lab Laboratory Tests 02/26/18 11:05: Glucometer 216H 02/26/18 16:13: Glucometer 210H 02/26/18 21:13: Glucometer 196H 02/27/18 05:50: White Blood Count 3.3L, Red Blood Count 2.63L, Hemoglobin 7.4L, Hematocrit 24L, Mean Corpuscular Volume 90, Mean Corpuscular Hemoglobin 28, Mean Corpuscular Hemoglobin Concent 31L, Red Cell Distribution Width 13.7, Platelet Count 148, Mean Platelet Volume 9.3, Neutrophils (%) (Auto) 54, Lymphocytes (%) (Auto) 26, Monocytes (%) (Auto) 9, Eosinophils (%) (Auto) 10, Basophils (%) (Auto) 1, Neutrophils # (Auto) 1.8, Lymphocytes # (Auto) 0.9L, Monocytes # (Auto) 0.3, Eosinophils # (Auto) 0.3, Basophils # (Auto) 0.0, Sodium Level 142, Potassium Level 4.2, Chloride Level 107, Carbon Dioxide Level 25, Anion Gap 10, Blood Urea Nitrogen 24H, Creatinine 1.63H, Estimat Glomerular Filtration Rate 45, BUN/ Creatinine Ratio 15, Glucose Level 156H, Calcium Level 8.1L, Corrected Calcium 9.0, Total Bilirubin 0.3, Aspartate Amino Transf (AST/SGOT) 11, Alanine Aminotransferase (ALT/SGPT) 19, Alkaline Phosphatase 70, Total Protein 4.5L, Albumin 2.9L Assessment/Plan Assessment/Plan Assess & Plan/Chief Complaint Diabetes. Coagulase negative bacteremia. Recent cervical surgery. Myopathy. Weakness. Renal insufficiency Clinical Quality Measures DVT/VTE Risk/Contraindication: Risk Factor Score Per Nursin RFS Level Per Nursing on Admit: 4+=Very High MARIIA SIM DO Feb 27, 2018 08:07
[2018-02-27 08:21] VITALS: BP 131/74
[2018-02-27] MEDS: amLODIPine 10 MG (NORVASC) TAB PO SCH (08:26)
[2018-02-27] MEDS: hydrALAZINE (APRESOLINE) 25 MG TAB PO SCH ×3 (08:26→21:56)
[2018-02-27] MEDS: CLOPIDOGREL 75 MG (PLAVIX) TABLET PO SCH (08:26)
[2018-02-27] MEDS: LOSARTAN 100 MG (COZAAR) TABLET PO SCH (08:26)
[2018-02-27] MEDS: LORATADINE (CLARITIN) 10 MG TAB PO SCH (08:26)
[2018-02-27] MEDS: GABAPENTIN 600 MG (NEURONTIN) TAB PO SCH ×3 (08:27→21:56)
[2018-02-27] MEDS: ASPIRIN E.C. 81 MG (ECOTRIN) TAB PO SCH (08:27)
[2018-02-27] MEDS: meTOprolol TARTRATE 50 MG (LOPRESSOR) TAB PO SCH ×2 (08:27→21:55)
[2018-02-27] MEDS: FUROSEMIDE 40 MG (LASIX) TAB PO SCH (08:27)
[2018-02-27] MEDS: ACETAMINOPHEN 325 MG TABLET PO PRN (08:32)
[2018-02-27] MEDS: MENTHOL/ZINC OXIDE (CALMOSEPTINE) 113 GM TUBE TOP SCH ×2 (10:20→22:06)
[2018-02-27] MEDS: ENOXAPARIN 40 MG/0.4 ML (LOVENOX) SYR SC SCH ×2 (10:22→22:03)
--- NOTE | 2018-02-27 10:57 | Physical Therapy Daily Note ---
PT Daily Note-Current Subjective pt in recliner pre tx, agrees to PT, no pain to report Appearance pt in recliner post tx, w/ phone, call light, tray, all needs met Mental Status Patient Orientation: Normal For Age Transfers Functional [place] Measure 0=Not Assessed/NA 4=Minimal Assistance 1=Total Assistance 5=Supervision or Setup 2=Maximal Assistance 6=Modified [place] 3=Moderate Assistance 7=Complete IndependenceIRFPAI Quality Coding Scale 6 Independent with activity with or without an assistive device 5 Patient requires set up or clean up by helper. Patient completes activity by themselves 4 Supervision or touching assist (CGA). [place] provide cues , steadying assist 3 The helper provides less than half the effort to complete the activity 2 The helper provides more than half the effort to complete the activity 1 Dependent. The helper does all the effort to complete an activity 7 Patient refused to complete or attempt activity 9 The patient did not perform the activity before the current illness or injury 88 Not attempted due to Medical conditions or safety concerns Transfers (B, C, W/C) (FIM): 4 Sit to/from Stand: 4 sit<->stand CGA, pt requires a lot of momentum to stand and relies on FWW in front of him to avoid LOB Weight Bearing Right Lower Extremity: Right Full Weight Bearing Left Lower Extremity: Left Full Weight Bearing Gait Training Does the Patient Walk?: Yes Gait (FIM): 5 Distance: 200',100' Gait Level of Assist: 5 Gait Persons Needed: 1 Gait Assistive Device: FWW Pt ambulates to/from gym w/ FWW and SBA, pt needs occasional standing rest breaks, pt demonstrates improved knee flexion during gait Exercises Standin way Ex=Flex, Abd, Ext, Side steps (parallel bars 4 laps) Standing Reps: 20 NuStep Minutes: 15 NuStep Workload: 5 Treatments gait training, endurance training, functional strengthening Assessment Current Status: Fair Progress improved gait distance and endurance, improved knee flexion during gait PT Short Term Goals Short Term Goals Time Frame: Mar 03, 2018 Gait (FIM): 2 Gait Distance Comment: 100' Gait Level of Assist: 4 Gait Assistive Device: FWW Wheelchair Distance: 50' PT Head Of [employer] Integration Goals Head Of [employer] Goals PT Head Of [employer] Goals Time Frame: Mar 17, 2018 Transfers (B,C,W/C) (FIM): 5 Sit to Lying (QC): 4 Lying-Sitting on Side/Bed(QC): 4 Sit to Stand (QC): 4 Rollin Roll Left to Right (QC): 4 Chair/Vkb-fi-Gocld Xfer(QC): 4 Car Transfer (QC): 4 Gait (FIM): 5 Distance: 150' Walk 10 feet (QC): 4 Walk 10ft-Uneven Surface(QC): 4 Walk 50ft with 2 Turns (QC): 4 Walk 150 ft (QC): 4 Gait Level of Assist: 5 Gait Assistive Device: FWW Stairs (FIM): 2 # of Steps: 4 1 Step (curb) (QC): 4 4 Steps (QC): 4 Stairs Level Of Assist: 4 PT Plan Problem List Problem List: Activity Tolerance, Functional Strength, Safety, Balance, Gait, Transfer, Bed Mobility Treatment/Plan Treatment Plan: Continue Plan of Care Treatment Plan: Bed Mobility, Education, Functional Activity [place], Functional Strength, Group Therapy, Gait, Safety, Therapeutic Exercise, Transfers Treatment Duration: Mar 17, 2018 Frequency: At least 5 of 7 days/Wk (IRF) Estimated Hrs Per Day: 1.5 hours per day Patient and/or Family Agrees t: Yes Safety Risks/Education Patient Education: Gait Training, Transfer Techniques, Correct Positioning, Safety Issues Teaching Recipient: Patient Teaching Methods: Demonstration, Discussion Response to Teaching: Reinforcement Needed Time/GCodes Time In: 1000 Time Out: 1100 Total Billed Treatment Time: 60 Total Billed Treatment 1 visit GT 20' EX 40' MARCELL BADILLO PT Feb 27, 2018 10:57
--- NOTE | 2018-02-27 11:06 | Occupational Ther Daily Note ---
OT Current Status-Daily Note Subjective No pain reported. Pt. does report that he feels, "tight." Requests for OT to stretch legs and arms. Appearance Pt. is in bed. Declines showering and states that he has not had his clothing on very long. Declines changing clothes. Mental Status/Objective Patient Orientation: Person, Place Functional [place] Measure 0=Not Assessed/NA 4=Minimal Assistance 1=Total Assistance 5=Supervision or Setup 2=Maximal Assistance 6=Modified [place] 3=Moderate Assistance 7=Complete [place] ADL-Treatment Functional [place] Measure 0=Not Assessed/NA 4=Minimal Assistance 1=Total Assistance 5=Supervision or Setup 2=Maximal Assistance 6=Modified [place] 3=Moderate Assistance 7=Complete IndependenceIRFPAI Quality Coding Scale 6 Independent with activity with or without an assistive device 5 Patient requires set up or clean up by helper. Patient completes activity by themselves 4 Supervision or touching assist (CGA). [place] provide cues , steadying assist 3 The helper provides less than half the effort to complete the activity 2 The helper provides more than half the effort to complete the activity 1 Dependent. The helper does all the effort to complete an activity 7 Patient refused to complete or attempt activity 9 The patient did not perform the activity before the current illness or injury 88 Not attempted due to Medical conditions or safety concerns Lower Body Dressing (FIM): 5 (SBA with AE to doff/don socks.) Lower Body Dressing (QC): 4 On/Off Footwear (QC): 4 Transfers (B, C, W/C) (FIM): 4 (CGA for supine-sit. CGA for sit-stand.) Other Treatment Pt. transferred to side of bed with CGA. OT attempted to stretch bilateral hamstrings while pt. sitting to increase comfort level. Had difficulty at this level. Ambulated to therapy gym and transferred to mat. OT educated pt. again on spinal precautions and log rolling. Pt. able to transfer sit-supine with CGA for leg placement. While in supine position, OT stretched bilateral LE for increased comfort, and bilateral shoulders for increased comfort. Noted pt.'s end point with shoulder flexion at 90 degrees. Did not stretch beyond 90 degrees. Provided gentle stretch to pectorals, deltoids, and biceps. Pt. shown method of using chair as bed rail for support instead of actual bedrail. Pt. is able to demonstrate this with transfer. Practiced doffing/donning socks with sock aide and dressing stick. Completed 25 minutes on armbike at minimal resistance, with one rest break, to increase overall endurance. Ambulated back to room and pt. transferred to chair to wait for PT. All needs met. Education OT Patient Education: Correct positioning, Exercise program, Modified ADL techniques, Progress toward Goal/Update tx plan, Purpose of tx/functional activities, Reviewed precautions, Rehab process, Transfer techniques, Use of adapted equipment Teaching Recipient: Patient Teaching Methods: Demonstration, Discussion Response to Teaching: Verbalize Understanding, Return Demonstration OT Short Term Goals Short Term Goals Time Frame: Mar 03, 2018 Bathing(FIM): 4 Lower Body Dressing(FIM): 4 Toileting(FIM): 4 Toilet/Commode Transfer(FIM): 4 Additional Short Term Goals: 2-Verbalize Understanding, 3-ImproveStrength/[place] 1=Demonstrate adherence to instructed precautions during ADL tasks. 2=Patient will verbalize/demonstrate understanding of assistive devices/ modifications for ADL. 3=Patient will improve strength/tolerance for activity to enable patient to perform ADL's. OT Desizing Machine Operator Head End Goals Desizing Machine Operator Head End Goals Time Frame: Mar 17, 2018 Eating (FIM): 7 Eating (QC): 6 Groomin Oral Hygiene (QC): 6 Bathing(FIM): 5 Shower/Bathe Self (QC): 5 Upper Body Dressing(FIM): 6 Upper Body Dressing (QC): 6 Lower Body Dressing(FIM): 5 Lower Body Dressing (QC): 5 On/Off Footwear (QC): 5 Toileting(FIM): 5 Toileting Hygiene (QC): 5 Toilet/Commode Transfer(FIM): 5 Toilet/Commode Transfer (QC): 5 Shower Transfer(FIM): 5 Additional Goals: 1-Demonstrate ADL Tasks, 2-Verbalize Understanding, 3- ImproveStrength/[place] 1=Demonstrate adherence to instructed precautions during ADL tasks. 2=Patient will verbalize/demonstrate understanding of assistive devices/ modifications for ADL. 3=Patient will improve strength/tolerance for activity to enable patient to perform ADL's. OT Education/Plan Problem List/Assessment Assessment: Decreased Activ Tolerance, Impaired Bed Mobility, Impaired I ADL's , Impaired Self-Care Skills Discharge Recommendations Plan/Recommendations: Continue POC Therapy D/C Recommendations: Home w/ Family Support, Occupational Therapy Home Care Equpiment Recommendations-D/C: Hip Kit Treatment Plan/Plan of Care Treatment,Training & Education: Yes Patient would benefit from OT for education, treatment and training to promote independence in ADL's, mobility, safety and/or upper extremity function for ADL' s. Plan of Care: ADL Retraining, Functional Mobility, Group Exercise/Act as Ind, UE Funct Exercise/Act Treatment Duration: Mar 17, 2018 Frequency: Modified Program (IRF) (25/12) Estimated Hrs Per Day: 1.5 hours per day Agreement: Yes Rehab Potential: Good Time/GCodes Start Time: 08:30 Stop Time: 10:00 Total Time Billed (hr/min): 90 Billed Treatment Time 1, FA x 45minutes, ADL x 15minutes, Ex x 30minutes RICHARD LING OT Feb 27, 2018 11:06
[2018-02-27 12:07] VITALS: BP 129/75
[2018-02-27] MEDS: lisINopril 10 MG (PRINIVIL) TABLET PO SCH (12:08)
--- NOTE | 2018-02-27 13:53 | PM & R (SOAP) Progress Note ---
Subjective This was a face to face visit with the patient. Date Seen by Provider: Feb 27, 2018 Time Seen by Provider: 13:00 Subjective/Events-last exam Patient was seen in his room this Afternoon patient c/o pain in sacral area when in Cardiac chair asked RN to reposition Meds adjusted over weekend by DR Escalera for better control of HTN now improved,Current labs noted HGB low will f /u with PCP re this Date Identified: Feb 27, 2018 Time Identified: 13:00 Medication Intervention: Med adjusted for HTN Review of Systems Musculoskeletal: back pain Objective Physician Exam Last Set of Vital Signs Vital Signs Date Time Temp Pulse Resp B/P (MAP) Pulse Ox O2 Delivery O2 Flow Rate FiO2 02/27/18 12:07 91 20 129/75 (93) Room Air 02/27/18 08:21 98.7 96 Capillary Refill : I&O Intake and Output 02/27/18 00:00 Intake Total 1744 ml Output Total 1950 ml Balance -206 ml Intake Oral 1244 ml IV Total 500 ml Output Urine Total 1950 ml # Voids 2 # Bowel Movements 2 General: Alert, Oriented X3, Cooperative, No Acute Distress HEENT: Atraumatic, PERRLA, EOMI, Mucous Memb Moist/[place] Neck: Supple, No JVD Lungs: Clear to Auscultation Heart: Regular Rate Abdomen: Normal Bowel Sounds, Soft, No Tenderness Extremities: Other (+ edema Both ankles) Neuro: Other (generalized weakness) Psych/Mental Status: Mental Status NL Results Lab Data Laboratory Tests 02/24/18 16:51: Glucometer 194H 02/24/18 21:56: Glucometer 295H 02/25/18 06:24: Glucometer 164H 02/25/18 11:16: Glucometer 181H 02/25/18 16:20: Glucometer 193H 02/25/18 20:27: Glucometer 240H 02/26/18 06:06: Glucometer 195H 02/26/18 06:50: White Blood Count 3.7L, Red Blood Count 2.54L, Hemoglobin 7.4L, Hematocrit 23L, Mean Corpuscular Volume 89, Mean Corpuscular Hemoglobin 29, Mean Corpuscular Hemoglobin Concent 33, Red Cell Distribution Width 13.3, Platelet Count 148, Mean Platelet Volume 9.8, Neutrophils (%) (Auto) 60, Lymphocytes (%) (Auto) 24, Monocytes (%) (Auto) 7, Eosinophils (%) (Auto) 8, Basophils (%) (Auto) 1, Neutrophils # (Auto) 2.2, Lymphocytes # (Auto) 0.9L, Monocytes # (Auto) 0.3, Eosinophils # (Auto) 0.3, Basophils # (Auto) 0.0, Sodium Level 140, Potassium Level 4.1, Chloride Level 106, Carbon Dioxide Level 24, Anion Gap 10, Blood Urea Nitrogen 20H, Creatinine 1.42H, Estimat Glomerular Filtration Rate 52, BUN/ Creatinine Ratio 14, Glucose Level 180H, Calcium Level 8.4L, Corrected Calcium 9.4, Iron Level 76, Total Bilirubin 0.4, Aspartate Amino Transf (AST/SGOT) 11, Alanine Aminotransferase (ALT/SGPT) 20, Alkaline Phosphatase 75, Total Protein 4.8L, Albumin 2.8L 02/26/18 11:05: Glucometer 216H 02/26/18 16:13: Glucometer 210H 02/26/18 21:13: Glucometer 196H 02/27/18 05:50: White Blood Count 3.3L, Red Blood Count 2.63L, Hemoglobin 7.4L, Hematocrit 24L, Mean Corpuscular Volume 90, Mean Corpuscular Hemoglobin 28, Mean Corpuscular Hemoglobin Concent 31L, Red Cell Distribution Width 13.7, Platelet Count 148, Mean Platelet Volume 9.3, Neutrophils (%) (Auto) 54, Lymphocytes (%) (Auto) 26, Monocytes (%) (Auto) 9, Eosinophils (%) (Auto) 10, Basophils (%) (Auto) 1, Neutrophils # (Auto) 1.8, Lymphocytes # (Auto) 0.9L, Monocytes # (Auto) 0.3, Eosinophils # (Auto) 0.3, Basophils # (Auto) 0.0, Sodium Level 142, Potassium Level 4.2, Chloride Level 107, Carbon Dioxide Level 25, Anion Gap 10, Blood Urea Nitrogen 24H, Creatinine 1.63H, Estimat Glomerular Filtration Rate 45, BUN/ Creatinine Ratio 15, Glucose Level 156H, Calcium Level 8.1L, Corrected Calcium 9.0, Total Bilirubin 0.3, Aspartate Amino Transf (AST/SGOT) 11, Alanine Aminotransferase (ALT/SGPT) 19, Alkaline Phosphatase 70, Total Protein 4.5L, Albumin 2.9L 02/27/18 11:43: Glucometer 178H Assessment/Plan Assessment and Plan General debil secondary to postop anemia with Coagulase negative staph bacteremia Pyelonephritis by CT scan Completed course of antibiotic for that as well as above DX Anemia-postop will f/u re rx HCAP treated DM2 Recent Hc of C spine surgery for myelopathy/radiculopathy HTN better controlled CHF meds adjusted and CXR noted Hypoalbuminemia Dermatitis HLP GABRIELLA on cpap Peripheral edema improved with adjustment in lasix dose Plan Continue Pt/OT Team Conference 03-01-18 F/u re low HGB Co-Morbidities that are continuing to impact the rehab process: (include details ) SALEEM AMATO MD Feb 27, 2018 13:53
--- NOTE | 2018-02-27 14:59 | Physical Therapy Daily Note ---
PT Daily Note-Current Subjective pt in recliner pre tx, agrees to PT, no pain to report Appearance pt in bed post tx, w/ phone, call light, tray, all needs met Mental Status Patient Orientation: Normal For Age Transfers Functional [place] Measure 0=Not Assessed/NA 4=Minimal Assistance 1=Total Assistance 5=Supervision or Setup 2=Maximal Assistance 6=Modified [place] 3=Moderate Assistance 7=Complete IndependenceIRFPAI Quality Coding Scale 6 Independent with activity with or without an assistive device 5 Patient requires set up or clean up by helper. Patient completes activity by themselves 4 Supervision or touching assist (CGA). [place] provide cues , steadying assist 3 The helper provides less than half the effort to complete the activity 2 The helper provides more than half the effort to complete the activity 1 Dependent. The helper does all the effort to complete an activity 7 Patient refused to complete or attempt activity 9 The patient did not perform the activity before the current illness or injury 88 Not attempted due to Medical conditions or safety concerns Transfers (B, C, W/C) (FIM): 4 Rollin Supine to/from Sit: 4 Sit to/from Stand: 5 supine->sit SBA, sit->supine Cristiane w/ both legs into bed, sit<->stand SBA, pt getting better at keeping balance and getting upright w/o leaning too far forward Weight Bearing Right Lower Extremity: Right Full Weight Bearing Left Lower Extremity: Left Full Weight Bearing Gait Training Does the Patient Walk?: Yes Gait (FIM): 5 Distance: 150'x2 Gait Level of Assist: 5 Gait Persons Needed: 1 Gait Assistive Device: FWW pt ambulates to/from gym w/ FWW and SBA, gait is slow and pt needs standing rest breaks Exercises Supine Ex: Ankle pumps, Quad Set, Heel Slides, Hip abd/add Supine Reps: 10 LE stretching supine - knee flexion, knee ext, dorsiflexion, hip flexion, hip internal rotation x30s each Treatments gait training, functional strengthening, LE stretching Assessment Current Status: Fair Progress improved endurance/activity tolerance, pt states he has been cramping in LEs at night so incorporated stretching into today's treatment PT Short Term Goals Short Term Goals Time Frame: Mar 03, 2018 Gait (FIM): 2 Gait Distance Comment: 100' Gait Level of Assist: 4 Gait Assistive Device: FWW Wheelchair Distance: 50' PT Senior Care Goals Senior Care Goals PT Senior Care Goals Time Frame: Mar 17, 2018 Transfers (B,C,W/C) (FIM): 5 Sit to Lying (QC): 4 Lying-Sitting on Side/Bed(QC): 4 Sit to Stand (QC): 4 Rollin Roll Left to Right (QC): 4 Chair/Dyz-mb-Ygudt Xfer(QC): 4 Car Transfer (QC): 4 Gait (FIM): 5 Distance: 150' Walk 10 feet (QC): 4 Walk 10ft-Uneven Surface(QC): 4 Walk 50ft with 2 Turns (QC): 4 Walk 150 ft (QC): 4 Gait Level of Assist: 5 Gait Assistive Device: FWW Stairs (FIM): 2 # of Steps: 4 1 Step (curb) (QC): 4 4 Steps (QC): 4 Stairs Level Of Assist: 4 PT Plan Problem List Problem List: Activity Tolerance, Functional Strength, Safety, Balance, Gait, Transfer, Bed Mobility Treatment/Plan Treatment Plan: Continue Plan of Care Treatment Plan: Bed Mobility, Education, Functional Activity Cody, Functional Strength, Group Therapy, Gait, Safety, Therapeutic Exercise, Transfers Treatment Duration: Mar 17, 2018 Frequency: At least 5 of 7 days/Wk (IRF) Estimated Hrs Per Day: 1.5 hours per day Patient and/or Family Agrees t: Yes Safety Risks/Education Patient Education: Gait Training, Transfer Techniques, Correct Positioning, Safety Issues Teaching Recipient: Patient Teaching Methods: Demonstration, Discussion Response to Teaching: Reinforcement Needed Time/GCodes Time In: 1330 Time Out: 1400 Total Billed Treatment Time: 30 Total Billed Treatment 1 visit GT 15' EX 15' MARK RAMIREZ PT Feb 27, 2018 14:59
[2018-02-27] MEDS: FUROSEMIDE 20 MG (LASIX) TAB PO SCH (16:59)
[2018-02-27 17:05] VITALS: BP 136/72
--- NOTE | 2018-02-27 17:52 | Individualized Plan of Care ---
Individualized Plan of Care Rehab Nursing IPOC Order Admission Date Feb 23, 2018 at 17:40 Current Orders Orders Admission Order(Inpt,Obs,Sdc) (02/23/18 18:02) Vital Signs: Routine (Order) 08,16,00 (02/23/18 18:02) Sequential Compression Device 08,20 (02/23/18 18:02) Screw Machine Repairer-Inpt Rehab Con (02/23/18 18:02) Rehab Nursing Orders-Ipoc (02/23/18 18:02) Physical Therapy Rehab Orders (02/23/18 18:02) Occupational Therapy Rehab Ord (02/23/18 18:02) Speech Therapy Rehab Orders (02/23/18 18:02) Turn And Reposition Q2HR (02/23/18 18:02) Weekly Weight (Lbs) WEEK (02/23/18 18:02) Code/Resuscitation (02/23/18 18:02) Consult Physician (02/23/18 18:07) Request For Dysphagia Services (02/23/18 18:15) Request Ot Evaluate & Treat (02/23/18 18:15) Acetaminophen Tablet/Caplet (Tylenol T (02/23/18 18:15) Ferrous Sulfate Tablet (Feosol Tablet) (02/24/18 07:00) Linezolid Ivpb (Zyvox Ivpb) (02/23/18 21:00) Ondansetron Oral Dissolve Tab (Zofran (02/23/18 18:15) Vancomycin Oral Suspension (Vancomycin O (02/23/18 21:00) Amlodipine Tablet (Norvasc Tablet) (02/24/18 09:00) Aspirin Enteric Coated Tablet (Ecotrin T (02/24/18 09:00) Clopidogrel Tablet (Plavix Tablet) (02/24/18 09:00) Loratadine Tablet (Claritin Tablet) (02/24/18 09:00) Furosemide Tablet (Lasix Tablet) (02/23/18 18:30) Gabapentin Capsule/Tablet (Neurontin Cap (02/23/18 21:00) Glimepiride Tablet (Amaryl Tablet) (02/24/18 06:30) Losartan Tablet (Cozaar Tablet) (02/24/18 09:00) Metoprolol Tartrate (Ir) Tab (Lopressor (02/23/18 21:00) Pharmacy Communication (Pharmacy Communi (02/23/18 18:15) Pharmacy Communication (Pharmacy Communi (02/23/18 18:30) Ambulate 08,12,20 (02/23/18 18:26) Sequential Compression Device 08,20 (02/23/18 18:26) Dvt/Vte Risk - Notifiy Physici 08 (02/23/18 18:26) Cho 60g/M 1snack (16-2000 Luis Antonio) (02/23/18 Dinner) Julio Syrup (Julio Syrup) 60 Ml, Vanco (02/23/18 19:00) Rosuvastatin Tablet (Crestor Tablet) (02/23/18 21:00) Insulin Aspart (Novolog) (Novolog (Charg (02/23/18 21:00) Accucheck Achs ACHS (02/23/18 18:48) Piperacillin Sodium/Tazobactam (Zosyn Vi (02/23/18 20:00) Melatonin Tablet (Melatonin Tablet) (02/23/18 21:15) Melatonin Tablet (Melatonin Tablet) (02/23/18 21:48) Cbc With Automated Diff (02/24/18 10:00) Comprehensive Metabolic Panel (02/24/18 10:00) Enoxaparin Injection (Lovenox Injection) (02/24/18 10:00) Patient Visit (02/24/18 ) Speech Sound Lang Comp (02/24/18 ) Patient Visit (02/24/18 ) Dysphagia Evaluation Std (02/24/18 ) Patient Visit (02/24/18 ) Pt Eval Moderate Complexity (02/24/18 ) Gait Training, Ea 15 Min (02/24/18 ) Exercise Therap, Ea 15 Min (02/24/18 ) Functional Activities, Ea 15 (02/24/18 ) Lisinopril Tablet (Zestril Tablet) (02/24/18 18:15) Lisinopril Tablet (Zestril Tablet) (02/25/18 12:00) Pet Pass (02/24/18 18:04) Furosemide Tablet (Lasix Tablet) (02/25/18 09:00) Chest Pa/Lat (2 View) (02/25/18 07:56) Patient Visit (02/25/18 ) Functional Activities, Ea 15 (02/25/18 ) Gait Training, Ea 15 Min (02/25/18 ) Exercise Therap, Ea 15 Min (02/25/18 ) Amlodipine Tablet (Norvasc Tablet) (02/25/18 12:30) Hydralazine Tablet (Apresoline Tablet) (02/25/18 13:00) Clonidine Tablet (Catapres Tablet) (02/25/18 12:30) Cbc With Automated Diff (02/26/18 06:00) Comprehensive Metabolic Panel (02/26/18 06:00) Amlodipine Tablet (Norvasc Tablet) (02/26/18 09:00) Menthol/Zinc Oxide Ointment (Calmoseptin (02/25/18 21:00) Iron Test (Fe) (02/26/18 12:00) Cbc With Automated Diff (02/27/18 06:00) Comprehensive Metabolic Panel (02/27/18 06:00) Patient Visit (02/27/18 ) Exercise Therap, Ea 15 Min (02/27/18 ) Gait Training, Ea 15 Min (02/27/18 ) Diabetes Education (02/27/18 14:26) Patient Visit (02/27/18 ) Exercise Therap, Ea 15 Min (02/27/18 ) Gait Training, Ea 15 Min (02/27/18 ) Cbc No Diff (02/28/18 05:00) Basic Metabolic Panel (02/28/18 05:00) BNP (02/28/18 05:00) Chest Pa/Lat (2 View) (02/27/18 16:38) Rehab Nursing Orders: Ongoing Assess. of Cognitive Status, Ongoing Assess. of Function Status, Disease Management & Educaiton, DVT Prophylaxis, Fall Prevention, Fluid/Electrolyte/Nutrition Mgmt, Infection Prevention, Medication Management & Education, Management of Risks & Complications, Management of Skin Intergrity, Nutrition Management, Pain Management, Patient/Family Support PT IPOC Problem List: Activity Tolerance, Functional Strength, Safety, Balance, Gait, Transfer, Bed Mobility Treatment Plan: Continue Plan of Care Bed Mobility, Education, Functional Activity Cody, Functional Strength, Group Therapy, Gait, Safety, Therapeutic Exercise, Transfers Treatment Duration: Mar 17, 2018 Frequency: At least 5 of 7 days/Wk (IRF) Estimated Hrs Per Day: 1.5 hours per day OT IPOC Problems: Decreased Activ Tolerance, Impaired Bed Mobility, Impaired I ADL's, Impaired Self-Care Skills OT Treatment, Training and Edu: Yes Plan of Care: ADL Retraining, Functional Mobility, Group Exercise/Act as Ind, UE Funct Exercise/Act Treatment Duration: Mar 17, 2018 Frequency: Modified Program (IRF) (15/) Estimated Hrs Per Day: 1.[address] IPOC Speech Therapy Treatment Plan: Discontinue ST Treatment Duration: Feb 27, 2018 Frequency: Modified Program (IRF) (0) Estimated Hrs Per Day: Other (0) Screw Machine Repairer/Case Mgmt Screw Machine Repairer/Case Managemen: Discharge Planning, Patient/Family Counseling Dietitian/Ranch Supervisor Dietitian/Ranch Supervisor to monitor nutritional status and make changes and/or recommendations as needed and work with speech pathology on dietary upgrades as the occur. 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 Medical Issues: DVT Prophylaxis, Falls Precautions, Fluid/Electrolyte/ Nutrition Balance, Infection Protection, Pain Management, Wound Care, Other ( List) (as per above) Brief Synthesis of Preadmission Screen, Post-Admission Evaluation, and Therapy Evaluations: 53 yo obese male who had been Independent and working who developed debilitating Myelopathic pain as a result of Cervical DD .Patient had post op complcations of infection postop and required a course of antibiotics for HCAP Also has Postop anemia referred to IRU for ongoing care and therapies Medical Prognosis: Good Anticipated Length of Stay: 03-10-18 Modified Independent for adls and mobility skills Anticipated d/c Destination: Home with SALEEM MONTOYA MD Feb 27, 2018 17:52
--- NOTE | 2018-02-27 18:52 | Diagnostic Imaging Report ---
INDICATION: Pneumonia. COMPARISON: Study compared to 02/25/2018. FINDINGS: Right PICC line is at the cavoatrial junction in good position. There are perihilar linear zones of subsegmental atelectasis, improved. In the right medial base, a component of airspace disease could not be excluded; this also likely improved. IMPRESSION: Improvements in infiltrate and atelectasis. No pleural fluid or adverse development. Dictated by: Dictated on workstation # [id number]
[2018-02-27] MEDS: ROSUVASTATIN 5 MG (CRESTOR) TABLET PO SCH (21:55)
[2018-02-27] MEDS: MELATONIN 3 MG TABLET PO PRN (21:56)
[2018-02-27] MEDS: ONDANSETRON 4 MG (ZOFRAN) ORAL DISSOLVE TAB PO PRN (22:03)
[2018-02-28 05:07] VITALS: BP 131/73
[2018-02-28] MEDS: inSUlin ASPART (NovoLOG) 1 UNIT/0.01 ML (CHARGE PER UNIT) SC SCH ×4 (06:07→20:42)
[2018-02-28] MEDS: FERROUS SULF 325 MG (IRON) TAB PO SCH ×2 (06:44→16:20)
[2018-02-28] MEDS: GLIMEPIRIDE 4 MG (AMARYL) TAB PO SCH (06:44)
[2018-02-28 06:55] LABS: HEMOGLOBIN 7.3 G/DL (13.3-17.7); MEAN PLATELET VOLUME 9.5 FL (7.4-10.4); RED BLOOD COUNT 2.49 10^6/uL (4.35-5.85); RED CELL DISTRIBUTION WIDTH 13.5 % (10.0-14.5); WHITE BLOOD COUNT 3.1 10^3/uL (4.3-11.0)
[2018-02-28 07:14] LABS: CALCIUM 8.4 MG/DL (8.5-10.1); CREATININE SERUM 1.7 MG/DL (0.60-1.30); POTASSIUM 4.2 MMOL/L (3.6-5.0)
--- NOTE | 2018-02-28 08:05 | PM & R (SOAP) Progress Note ---
Subjective This was a face to face visit with the patient. Date Seen by Provider: Feb 28, 2018 Time Seen by Provider: 07:35 Subjective/Events-last exam Patient was seen in his room this AM Patient Min assist for transfers Peripheral edema decreasing with Adjustment in Lasix dose Date Identified: Feb 24, 2018 Time Identified: 08:00 Medication Intervention: Laisx dose adjusted as per above Review of Systems Cardiovascular: Edema Neurological: Weakness Objective Physician Exam Last Set of Vital Signs Vital Signs Date Time Temp Pulse Resp B/P (MAP) Pulse Ox O2 Delivery O2 Flow Rate FiO2 02/28/18 05:07 98.0 78 18 131/73 (92) 96 Room Air Capillary Refill : I&O Intake and Output 02/28/18 00:00 Intake Total 1800 ml Output Total 2000 ml Balance -200 ml Intake Oral 1800 ml Output Urine Total 2000 ml # Bowel Movements 3 General: Alert, Oriented X3, Cooperative, No Acute Distress HEENT: Atraumatic, PERRLA, EOMI, Mucous Memb Moist/[place]: Supple, No JVD Lungs: Clear to Auscultation Heart: Regular Rate Abdomen: Normal Bowel Sounds, Soft, No Tenderness Extremities: Other (+ edema Both ankles) Neuro: Other (generalized weakness) Psych/Mental Status: Mental Status NL Results Lab Data Laboratory Tests 02/25/18 11:16: Glucometer 181H 02/25/18 16:20: Glucometer 193H 02/25/18 20:27: Glucometer 240H 02/26/18 06:06: Glucometer 195H 02/26/18 06:50: White Blood Count 3.7L, Red Blood Count 2.54L, Hemoglobin 7.4L, Hematocrit 23L, Mean Corpuscular Volume 89, Mean Corpuscular Hemoglobin 29, Mean Corpuscular Hemoglobin Concent 33, Red Cell Distribution Width 13.3, Platelet Count 148, Mean Platelet Volume 9.8, Neutrophils (%) (Auto) 60, Lymphocytes (%) (Auto) 24, Monocytes (%) (Auto) 7, Eosinophils (%) (Auto) 8, Basophils (%) (Auto) 1, Neutrophils # (Auto) 2.2, Lymphocytes # (Auto) 0.9L, Monocytes # (Auto) 0.3, Eosinophils # (Auto) 0.3, Basophils # (Auto) 0.0, Sodium Level 140, Potassium Level 4.1, Chloride Level 106, Carbon Dioxide Level 24, Anion Gap 10, Blood Urea Nitrogen 20H, Creatinine 1.42H, Estimat Glomerular Filtration Rate 52, BUN/ Creatinine Ratio 14, Glucose Level 180H, Calcium Level 8.4L, Corrected Calcium 9.4, Iron Level 76, Total Bilirubin 0.4, Aspartate Amino Transf (AST/SGOT) 11, Alanine Aminotransferase (ALT/SGPT) 20, Alkaline Phosphatase 75, Total Protein 4.8L, Albumin 2.8L 02/26/18 11:05: Glucometer 216H 02/26/18 16:13: Glucometer 210H 02/26/18 21:13: Glucometer 196H 02/27/18 05:50: White Blood Count 3.3L, Red Blood Count 2.63L, Hemoglobin 7.4L, Hematocrit 24L, Mean Corpuscular Volume 90, Mean Corpuscular Hemoglobin 28, Mean Corpuscular Hemoglobin Concent 31L, Red Cell Distribution Width 13.7, Platelet Count 148, Mean Platelet Volume 9.3, Neutrophils (%) (Auto) 54, Lymphocytes (%) (Auto) 26, Monocytes (%) (Auto) 9, Eosinophils (%) (Auto) 10, Basophils (%) (Auto) 1, Neutrophils # (Auto) 1.8, Lymphocytes # (Auto) 0.9L, Monocytes # (Auto) 0.3, Eosinophils # (Auto) 0.3, Basophils # (Auto) 0.0, Sodium Level 142, Potassium Level 4.2, Chloride Level 107, Carbon Dioxide Level 25, Anion Gap 10, Blood Urea Nitrogen 24H, Creatinine 1.63H, Estimat Glomerular Filtration Rate 45, BUN/ Creatinine Ratio 15, Glucose Level 156H, Calcium Level 8.1L, Corrected Calcium 9.0, Total Bilirubin 0.3, Aspartate Amino Transf (AST/SGOT) 11, Alanine Aminotransferase (ALT/SGPT) 19, Alkaline Phosphatase 70, Total Protein 4.5L, Albumin 2.9L 02/27/18 11:43: Glucometer 178H 02/27/18 16:56: Glucometer 171H 02/27/18 21:55: Glucometer 220H 02/28/18 04:35: Glucometer 158H 02/28/18 06:45: White Blood Count 3.1L, Red Blood Count 2.49L, Hemoglobin 7.3L, Hematocrit 23L, Mean Corpuscular Volume 90, Mean Corpuscular Hemoglobin 29, Mean Corpuscular Hemoglobin Concent 32, Red Cell Distribution Width 13.5, Platelet Count 121L, Mean Platelet Volume 9.5, Sodium Level 142, Potassium Level 4.2, Chloride Level 108H, Carbon Dioxide Level 26, Anion Gap 8, Blood Urea Nitrogen 30H, Creatinine 1.70H, Estimat Glomerular Filtration Rate 43, BUN/Creatinine Ratio 18, Glucose Level 153H, Calcium Level 8.4L, B-Type Natriuretic Peptide 283.4H Assessment/Plan Assessment and Plan recent HX of C spine surgery for myelopathy DR Valderrama General debil secondary to postop anemia and coagulase Negative Staph bacteremia just completed course of antibiotic Pyelonephritis by CT treated HCAP treated DM 2 HTN better controlled CHF meds adjusted Hypoalbuminemia HLP GABRIELLA on Cpap Peripheral edema improved with med Plan Continue PT.OT Team Conference tomorrow Goal return home Modified Independent to supervision for adls and mobility skills Co-Morbidities that are continuing to impact the rehab process: (include details ) SALEEM AMATO MD Feb 28, 2018 08:05
[2018-02-28] MEDS: amLODIPine 10 MG (NORVASC) TAB PO SCH (08:08)
[2018-02-28] MEDS: ASPIRIN E.C. 81 MG (ECOTRIN) TAB PO SCH (08:08)
[2018-02-28] MEDS: CLOPIDOGREL 75 MG (PLAVIX) TABLET PO SCH (08:08)
[2018-02-28] MEDS: GABAPENTIN 600 MG (NEURONTIN) TAB PO SCH ×3 (08:08→20:42)
[2018-02-28] MEDS: meTOprolol TARTRATE 50 MG (LOPRESSOR) TAB PO SCH ×2 (08:08→20:42)
[2018-02-28] MEDS: hydrALAZINE (APRESOLINE) 25 MG TAB PO SCH ×3 (08:08→20:42)
[2018-02-28] MEDS: LOSARTAN 100 MG (COZAAR) TABLET PO SCH (08:08)
[2018-02-28] MEDS: FUROSEMIDE 40 MG (LASIX) TAB PO SCH (08:08)
[2018-02-28] MEDS: LORATADINE (CLARITIN) 10 MG TAB PO SCH (08:08)
[2018-02-28] MEDS: MENTHOL/ZINC OXIDE (CALMOSEPTINE) 113 GM TUBE TOP SCH ×2 (08:09→20:42)
[2018-02-28 08:10] VITALS: BP 138/50
--- NOTE | 2018-02-28 08:10 | Progress Note (SOAP) ---
Subjective Time Seen by Provider: 08:08 Subjective/Events-last exam He shouldn't feels he is getting around better. Patient anemic. Patient's GFR 45. Patient has leukopenia. Patient takes Lasix for the swelling in his legs. If he doesn't take Lasix he will get swelling of his legs and difficulty in walking Objective Exam Vital Signs Date Time Temp Pulse Resp B/P (MAP) Pulse Ox O2 Delivery O2 Flow Rate FiO2 02/28/18 05:07 98.0 78 18 131/73 (92) 96 Room Air 02/27/18 22:50 98.3 02/27/18 17:05 98.6 86 20 136/72 (93) 98 Room Air 02/27/18 12:07 91 20 129/75 (93) Room Air 02/27/18 08:35 Room Air 02/27/18 08:21 98.7 89 20 131/74 (93) 96 Room Air I & O 02/28/18 07:00 Intake Total 1750 ml Output Total 2000 ml Balance -250 ml Capillary Refill : General Appearance: No Apparent Distress, WD/WN HEENT: Normal ENT Inspection Results Lab Laboratory Tests 02/27/18 11:43: Glucometer 178H 02/27/18 16:56: Glucometer 171H 02/27/18 21:55: Glucometer 220H 02/28/18 04:35: Glucometer 158H 02/28/18 06:45: White Blood Count 3.1L, Red Blood Count 2.49L, Hemoglobin 7.3L, Hematocrit 23L, Mean Corpuscular Volume 90, Mean Corpuscular Hemoglobin 29, Mean Corpuscular Hemoglobin Concent 32, Red Cell Distribution Width 13.5, Platelet Count 121L, Mean Platelet Volume 9.5, Sodium Level 142, Potassium Level 4.2, Chloride Level 108H, Carbon Dioxide Level 26, Anion Gap 8, Blood Urea Nitrogen 30H, Creatinine 1.70H, Estimat Glomerular Filtration Rate 43, BUN/Creatinine Ratio 18, Glucose Level 153H, Calcium Level 8.4L, B-Type Natriuretic Peptide 283.4H Assessment/Plan Assessment/Plan Assess & Plan/Chief Complaint Diabetes. Coagulase negative bacteremia. Recent cervical surgery. Myopathy. Weakness. Renal insufficiency Clinical Quality Measures DVT/VTE Risk/Contraindication: Risk Factor Score Per Nursin RFS Level Per Nursing on Admit: 4+=Very High MARIIA SIM DO Feb 28, 2018 08:10
[2018-02-28] MEDS: ENOXAPARIN 40 MG/0.4 ML (LOVENOX) SYR SC SCH (10:08)
--- NOTE | 2018-02-28 10:58 | Physical Therapy Daily Note ---
PT Daily Note-Current Subjective pt in bed pre tx, agrees to PT, no pain to report, pt toilet for BM. Patient states he is very tired this morning. Appearance pt in recliner post tx, w/ phone, call light, tray, all needs met, nurse in room Mental Status Patient Orientation: Normal For Age Attachments: SCD's Transfers Functional [place] Measure 0=Not Assessed/NA 4=Minimal Assistance 1=Total Assistance 5=Supervision or Setup 2=Maximal Assistance 6=Modified [place] 3=Moderate Assistance 7=Complete IndependenceIRFPAI Quality Coding Scale 6 Independent with activity with or without an assistive device 5 Patient requires set up or clean up by helper. Patient completes activity by themselves 4 Supervision or touching assist (CGA). [place] provide cues , steadying assist 3 The helper provides less than half the effort to complete the activity 2 The helper provides more than half the effort to complete the activity 1 Dependent. The helper does all the effort to complete an activity 7 Patient refused to complete or attempt activity 9 The patient did not perform the activity before the current illness or injury 88 Not attempted due to Medical conditions or safety concerns Transfers (B, C, W/C) (FIM): 4 Supine to/from Sit: 4 Sit to/from Stand: 4 supine<->sit Cristiane w/ getting far leg out of bed, sit<->stand CGA for most transfers, pt required minAx2 for sit->stand at the end of treatment due to fatigue Weight Bearing Right Lower Extremity: Right Full Weight Bearing Left Lower Extremity: Left Full Weight Bearing Gait Training Does the Patient Walk?: Yes Gait (FIM): 4 Distance: 150',100' Gait Level of Assist: 4 Gait Persons Needed: 1 Gait Assistive Device: FWW pt ambulates to/from gym w/ FWW and CGA, improved gait speed, but pt needs standing rest breaks due to SOB Exercises Seated Therapy Exercises: Ankle pumps (20), Sit to stand (5), Long arc quads ( 20), Hip flexion (10) NuStep Minutes: 18 NuStep Workload: 4 Treatments gait training, functional strengthening, endurance training Assessment Current Status: Fair Progress pt very tired today w/ little motivation, required increased assistance w/ transfer at the end of treatment due to fatigue PT Short Term Goals Short Term Goals Time Frame: Mar 03, 2018 Gait (FIM): 2 Gait Distance Comment: 100' Gait Level of Assist: 4 Gait Assistive Device: FWW Wheelchair Distance: 50' PT Package Dye Stand Loader Goals Package Dye Stand Loader Goals PT Mcfp Goals Time Frame: Mar 17, 2018 Transfers (B,C,W/C) (FIM): 5 Sit to Lying (QC): 4 Lying-Sitting on Side/Bed(QC): 4 Sit to Stand (QC): 4 Rollin Roll Left to Right (QC): 4 Chair/Qos-qe-Ubepo Xfer(QC): 4 Car Transfer (QC): 4 Gait (FIM): 5 Distance: 150' Walk 10 feet (QC): 4 Walk 10ft-Uneven Surface(QC): 4 Walk 50ft with 2 Turns (QC): 4 Walk 150 ft (QC): 4 Gait Level of Assist: 5 Gait Assistive Device: FWW Stairs (FIM): 2 # of Steps: 4 1 Step (curb) (QC): 4 4 Steps (QC): 4 Stairs Level Of Assist: 4 PT Plan Problem List Problem List: Activity Tolerance, Functional Strength, Safety, Balance, Gait, Transfer, Bed Mobility Treatment/Plan Treatment Plan: Continue Plan of Care Treatment Plan: Bed Mobility, Education, Functional Activity Cody, Functional Strength, Group Therapy, Gait, Safety, Therapeutic Exercise, Transfers Treatment Duration: Mar 17, 2018 Frequency: At least 5 of 7 days/Wk (IRF) Estimated Hrs Per Day: 1.5 hours per day Patient and/or Family Agrees t: Yes Safety Risks/Education Patient Education: Gait Training, Transfer Techniques, Correct Positioning, Safety Issues Teaching Recipient: Patient Teaching Methods: Demonstration, Discussion Response to Teaching: Reinforcement Needed Time/GCodes Time In: 1000 Time Out: 1100 Total Billed Treatment Time: 60 Total Billed Treatment 1 visit GT 15' FA 10' EX 35' MARCELL BADILLO PT Feb 28, 2018 10:58
[2018-02-28] MEDS: lisINopril 10 MG (PRINIVIL) TABLET PO SCH (12:55)
[2018-02-28 12:57] VITALS: BP 140/74
--- NOTE | 2018-02-28 13:51 | Physical Therapy Daily Note ---
PT Daily Note-Current Subjective pt in recliner pre tx, agrees to PT, no pain to report, but states he is very tight in his legs and would like it if he could get some stretching in this afternoon Appearance pt in w/c post tx in therapy gym ready to begin OT Mental Status Patient Orientation: Normal For Age Transfers Functional Teller Measure 0=Not Assessed/NA 4=Minimal Assistance 1=Total Assistance 5=Supervision or Setup 2=Maximal Assistance 6=Modified Teller 3=Moderate Assistance 7=Complete IndependenceIRFPAI Quality Coding Scale 6 Independent with activity with or without an assistive device 5 Patient requires set up or clean up by helper. Patient completes activity by themselves 4 Supervision or touching assist (CGA). [place] provide cues , steadying assist 3 The helper provides less than half the effort to complete the activity 2 The helper provides more than half the effort to complete the activity 1 Dependent. The helper does all the effort to complete an activity 7 Patient refused to complete or attempt activity 9 The patient did not perform the activity before the current illness or injury 88 Not attempted due to Medical conditions or safety concerns Transfers (B, C, W/C) (FIM): 4 Sit to/from Stand: 4 sit->stand Cristiane, pt very tired today and unable to generate momentum to liftoff chair Weight Bearing Right Lower Extremity: Right Full Weight Bearing Left Lower Extremity: Left Full Weight Bearing Gait Training Does the Patient Walk?: Yes Gait (FIM): 5 Distance: 50'x2 Gait Level of Assist: 5 Gait Persons Needed: 1 Gait Assistive Device: FWW pt ambulates w/ FWW and SBA, GT to w/c outside room, and outdoors over incline/ decline and uneven surface 50' SBA Wheelchair Training Does the Pt Use a Wheelchair?: Yes Wheelchair (FIM): 2 Wheelchair Distance: 7=645-43 ft Distance: 150'x3 Wheelchair Level of Assist: 4 Type of Wheelchair: Manual pt uses w/c to/from elevator to go outside w/ Cristiane, pt fatigues easily and needs help with propulsion Exercises stretching: HS and dorsiflexion 2x30s each Assessment Current Status: Fair Progress pt very fatigued today w/ increased rest breaks and decreased activity tolerance PT Short Term Goals Short Term Goals Time Frame: Mar 03, 2018 Gait (FIM): 2 Gait Distance Comment: 100' Gait Level of Assist: 4 Gait Assistive Device: FWW Wheelchair Distance: 50' PT Custodial Goals Custodial Goals PT Custodial Goals Time Frame: Mar 17, 2018 Transfers (B,C,W/C) (FIM): 5 Sit to Lying (QC): 4 Lying-Sitting on Side/Bed(QC): 4 Sit to Stand (QC): 4 Rollin Roll Left to Right (QC): 4 Chair/Ghu-dd-Bnedg Xfer(QC): 4 Car Transfer (QC): 4 Gait (FIM): 5 Distance: 150' Walk 10 feet (QC): 4 Walk 10ft-Uneven Surface(QC): 4 Walk 50ft with 2 Turns (QC): 4 Walk 150 ft (QC): 4 Gait Level of Assist: 5 Gait Assistive Device: FWW Stairs (FIM): 2 # of Steps: 4 1 Step (curb) (QC): 4 4 Steps (QC): 4 Stairs Level Of Assist: 4 PT Plan Problem List Problem List: Activity Tolerance, Functional Strength, Safety, Balance, Gait, Transfer, Bed Mobility Treatment/Plan Treatment Plan: Continue Plan of Care Treatment Plan: Bed Mobility, Education, Functional Activity Cody, Functional Strength, Group Therapy, Gait, Safety, Therapeutic Exercise, Transfers Treatment Duration: Mar 17, 2018 Frequency: At least 5 of 7 days/Wk (IRF) Estimated Hrs Per Day: 1.5 hours per day Patient and/or Family Agrees t: Yes Safety Risks/Education Patient Education: Gait Training, Transfer Techniques, Correct Positioning, W/ C Management, Safety Issues Teaching Recipient: Patient Teaching Methods: Demonstration, Discussion Response to Teaching: Reinforcement Needed Time/GCodes Time In: 1315 Time Out: 1345 Total Billed Treatment Time: 30 Total Billed Treatment 1 visit [facility] 15' GT 15' MARCELL BADILLO PT Feb 28, 2018 13:51
--- NOTE | 2018-02-28 14:48 | Occupational Ther Daily Note ---
OT Current Status-Daily Note Subjective No pain reported. Appearance Pt. agrees to work with OT. Mental Status/Objective Patient Orientation: Person, Place, Time, Situation Functional Jewell Measure 0=Not Assessed/NA 4=Minimal Assistance 1=Total Assistance 5=Supervision or Setup 2=Maximal Assistance 6=Modified [place] 3=Moderate Assistance 7=Complete [place] ADL-Treatment Functional [place] Measure 0=Not Assessed/NA 4=Minimal Assistance 1=Total Assistance 5=Supervision or Setup 2=Maximal Assistance 6=Modified [place] 3=Moderate Assistance 7=Complete IndependenceIRFPAI Quality Coding Scale 6 Independent with activity with or without an assistive device 5 Patient requires set up or clean up by helper. Patient completes activity by themselves 4 Supervision or touching assist (CGA). [place] provide cues , steadying assist 3 The helper provides less than half the effort to complete the activity 2 The helper provides more than half the effort to complete the activity 1 Dependent. The helper does all the effort to complete an activity 7 Patient refused to complete or attempt activity 9 The patient did not perform the activity before the current illness or injury 88 Not attempted due to Medical conditions or safety concerns Bathing (FIM): 5 (SBA to wash all parts.) Shower/Bathe Self (QC): 4 Upper Body (FIM): 5 Upper Body Dressing (QC): 4 Lower Body Dressing (FIM): 4 (Pt. attempted to use Sock aide, but had difficulty due to feet being damp after shower. Pt. able to thread bilateral feet through underwear and pants, and then don over hips.) Lower Body Dressing (QC): 4 On/Off Footwear (QC): 4 Transfers (B, C, W/C) (FIM): 4 (Min assist for sit-stand. CGA to ambulate with walker.) Shower Transfer(FIM): 4 Other Treatment After shower and dressing, pt. requested to go outside. Pt. reports that he has not been out since his initial hospitalization, other than during hospital transfers. Pt. was able to transfer to a wheelchair and then manuever self to elevator. Pt. fatigued easily. Reported that he enjoyed being outside. Sat outside while talking about home set up. Went back to room and transferred to chair in room with CGA. All needs met. Education OT Patient Education: Correct positioning, Progress toward Goal/Update tx plan , Purpose of tx/functional activities, Reviewed precautions, Rehab process, Transfer techniques Teaching Recipient: Patient Teaching Methods: Demonstration, Discussion Response to Teaching: Verbalize Understanding, Return Demonstration OT Short Term Goals Short Term Goals Time Frame: Mar 03, 2018 Bathing(FIM): 4 Lower Body Dressing(FIM): 4 Toileting(FIM): 4 Toilet/Commode Transfer(FIM): 4 Additional Short Term Goals: 2-Verbalize Understanding, 3-ImproveStrength/Cody 1=Demonstrate adherence to instructed precautions during ADL tasks. 2=Patient will verbalize/demonstrate understanding of assistive devices/ modifications for ADL. 3=Patient will improve strength/tolerance for activity to enable patient to perform ADL's. OT Mcfp Goals Truck Driving Goals Time Frame: Mar 17, 2018 Eating (FIM): 7 Eating (QC): 6 Groomin Oral Hygiene (QC): 6 Bathing(FIM): 5 Shower/Bathe Self (QC): 5 Upper Body Dressing(FIM): 6 Upper Body Dressing (QC): 6 Lower Body Dressing(FIM): 5 Lower Body Dressing (QC): 5 On/Off Footwear (QC): 5 Toileting(FIM): 5 Toileting Hygiene (QC): 5 Toilet/Commode Transfer(FIM): 5 Toilet/Commode Transfer (QC): 5 Shower Transfer(FIM): 5 Additional Goals: 1-Demonstrate ADL Tasks, 2-Verbalize Understanding, 3- ImproveStrength/Cody 1=Demonstrate adherence to instructed precautions during ADL tasks. 2=Patient will verbalize/demonstrate understanding of assistive devices/ modifications for ADL. 3=Patient will improve strength/tolerance for activity to enable patient to perform ADL's. OT Education/Plan Problem List/Assessment Assessment: Decreased Activ Tolerance, Decreased UE Strength, Dependent Transfers, Impaired I ADL's, Impaired Self-Care Skills, Restricted Funct UE ROM Discharge Recommendations Plan/Recommendations: Continue POC Therapy D/C Recommendations: Home w/ Family Support, Occupational Therapy Home Care Treatment Plan/Plan of Care Treatment,Training & Education: Yes Patient would benefit from OT for education, treatment and training to promote independence in ADL's, mobility, safety and/or upper extremity function for ADL' s. Plan of Care: ADL Retraining, Functional Mobility, Group Exercise/Act as Ind, UE Funct Exercise/Act Treatment Duration: Mar 17, 2018 Frequency: Modified Program (IRF) (25/12) Estimated Hrs Per Day: 1.5 hours per day Agreement: Yes Rehab Potential: Good Time/GCodes Start Time: 11:05 Stop Time: 12:05 Total Time Billed (hr/min): 60 Billed Treatment Time 1, ADL x 45minutes, FA x 15minutes RICHARD LING OT Feb 28, 2018 14:48
--- NOTE | 2018-02-28 14:54 | Occupational Ther Daily Note ---
OT Current Status-Daily Note Subjective No pain reported. Pt. requested to go outside again. Mental Status/Objective Patient Orientation: Person, Place, Time, Situation Functional [place] Measure 0=Not Assessed/NA 4=Minimal Assistance 1=Total Assistance 5=Supervision or Setup 2=Maximal Assistance 6=Modified [place] 3=Moderate Assistance 7=Complete [place] ADL-Treatment Functional [place] Measure 0=Not Assessed/NA 4=Minimal Assistance 1=Total Assistance 5=Supervision or Setup 2=Maximal Assistance 6=Modified [place] 3=Moderate Assistance 7=Complete IndependenceIRFPAI Quality Coding Scale 6 Independent with activity with or without an assistive device 5 Patient requires set up or clean up by helper. Patient completes activity by themselves 4 Supervision or touching assist (CGA). [place] provide cues , steadying assist 3 The helper provides less than half the effort to complete the activity 2 The helper provides more than half the effort to complete the activity 1 Dependent. The helper does all the effort to complete an activity 7 Patient refused to complete or attempt activity 9 The patient did not perform the activity before the current illness or injury 88 Not attempted due to Medical conditions or safety concerns Other Treatment Pt. up in wheelchair from PT session. OT went over logistics of chair, such as brakes, legs rests, and how to self propel. Went to elevator and pt. able to push button to get on. Pt. has difficulty maneuvering wheelchair due to its size, so OT pushes it for him. Went outside for fresh air. Pt. and OT talk in depth regarding home goals, and need to return to work. OT let pt. know what the concerns with returning too quickly would be. Pt. states that he has to to pay for his insurance. Will speak with director social welfare regarding this. Completed bilateral UE AROM exercises in all planes to his comfort level. Completed shoulder flexion, elbow flexion, wrist extension, and hand squeezes. Pt. taken back into hospital. Ran into x-ray tech who would like to take pt. for x-ray. All needs met. Education OT Patient Education: Correct positioning, Exercise program, Modified ADL techniques, Progress toward Goal/Update tx plan, Purpose of tx/functional activities, Reviewed precautions, Rehab process, Transfer techniques Teaching Recipient: Patient Teaching Methods: Demonstration, Discussion Response to Teaching: Verbalize Understanding, Return Demonstration OT Short Term Goals Short Term Goals Time Frame: Mar 03, 2018 Bathing(FIM): 4 Lower Body Dressing(FIM): 4 Toileting(FIM): 4 Toilet/Commode Transfer(FIM): 4 Additional Short Term Goals: 2-Verbalize Understanding, 3-ImproveStrength/Cody 1=Demonstrate adherence to instructed precautions during ADL tasks. 2=Patient will verbalize/demonstrate understanding of assistive devices/ modifications for ADL. 3=Patient will improve strength/tolerance for activity to enable patient to perform ADL's. OT Prepleater Goals Longterm Goals Time Frame: Mar 17, 2018 Eating (FIM): 7 Eating (QC): 6 Groomin Oral Hygiene (QC): 6 Bathing(FIM): 5 Shower/Bathe Self (QC): 5 Upper Body Dressing(FIM): 6 Upper Body Dressing (QC): 6 Lower Body Dressing(FIM): 5 Lower Body Dressing (QC): 5 On/Off Footwear (QC): 5 Toileting(FIM): 5 Toileting Hygiene (QC): 5 Toilet/Commode Transfer(FIM): 5 Toilet/Commode Transfer (QC): 5 Shower Transfer(FIM): 5 Additional Goals: 1-Demonstrate ADL Tasks, 2-Verbalize Understanding, 3- ImproveStrength/Cody 1=Demonstrate adherence to instructed precautions during ADL tasks. 2=Patient will verbalize/demonstrate understanding of assistive devices/ modifications for ADL. 3=Patient will improve strength/tolerance for activity to enable patient to perform ADL's. OT Education/Plan Problem List/Assessment Assessment: Decreased Activ Tolerance, Decreased UE Strength, Dependent Transfers, Impaired I ADL's, Impaired Self-Care Skills, Restricted Funct UE ROM Discharge Recommendations Plan/Recommendations: Continue POC Therapy D/C Recommendations: Home w/ Family Support, Occupational Therapy Home Care Treatment Plan/Plan of Care Treatment,Training & Education: Yes Patient would benefit from OT for education, treatment and training to promote independence in ADL's, mobility, safety and/or upper extremity function for ADL' s. Plan of Care: ADL Retraining, Functional Mobility, Group Exercise/Act as Ind, UE Funct Exercise/Act Treatment Duration: Mar 17, 2018 Frequency: Modified Program (IRF) (25/12) Estimated Hrs Per Day: 1.5 hours per day Agreement: Yes Rehab Potential: Good Time/GCodes Start Time: 13:45 Stop Time: 14:15 Total Time Billed (hr/min): 30 Billed Treatment Time 1, FA x 2 RICHARD LING OT Feb 28, 2018 14:54
--- NOTE | 2018-02-28 15:47 | Diagnostic Imaging Report ---
INDICATION: Cervical fusion approximately one month ago. TIME OF EXAM: 2:48 p.m. FINDINGS: Postop changes of ACDF with anterior plate and screws extending from C3 through C7 are noted. The hardware appears to be intact. No definite fracture or loosening is seen. Bony structures appear intact. Prevertebral tissues are normal. Alignment is normal. IMPRESSION: Postop changes of ACDF from C3 through C7. No complicating feature is detected. Dictated by: Dictated on workstation # [id number]
[2018-02-28 16:10] VITALS: BP 130/76
[2018-02-28] MEDS: FUROSEMIDE 20 MG (LASIX) TAB PO SCH (16:20)
--- NOTE | 2018-02-28 17:01 | Consultation-Cardiology ---
HPI-Cardiology Cardiology Consultation Date of Consultation 02/28/18 Date of Admission Time Seen by Provider: 16:53 Indication: coronary artery disease HPI 53 years old gentleman with history of coronary artery disease underwent neck surgery last month, complicated by respiratory failure and pneumonia and generalized debility. He was transferred to [facility], treated for pneumonia and bacteremia in addition to C. difficile coverage. He has improved , still having generalized weakness and loss of energy, generalized fatigue, denied any chest pain or palpitation, has pedal edema which has been significant on top of chronic renal insufficiency. Patient underwent extensive workup at [facility], currently reporting improvement, slow but steady improvement. Home Medications & Allergies Allergies: Coded Allergies: tazobactam (Verified Allergy, Unknown, RASH, 02/10/18) Home Medication List Reviewed: Yes SRB-[id number]-[id number] Hx Patient Social History Marital Status: Alcohol Use: Denies Use Recreational Drug Use: No Smoking Status: Never a Smoker 2nd Hand Smoke Exposure: No Recent Foreign Travel: No Recent Infectious Disease Expo: No Recent Hopitalizations: Yes (PNEUMONIA, SPINAL WURGERY) Physical Abuse Screen: No Sexual Abuse: No Immunizations Up To Date Tetanus Booster (TDap): Unknown Date of Pneumonia Vaccine: Jun 16, 2015 Date of Influenza Vaccine: Jun 20, 2017 Past Medical History Past medical history as described below Family Medical History Significant Family History: No Pertinent Family Hx, Hypertension Family History: Arthritis G8 BROTHER (knee replacement) Cardiovascular disease 19 FATHER (chf) Deafness or hearing loss 19 MOTHER (vertigo) Diabetes mellitus 19 MOTHER Prostate cancer 19 FATHER Review of Systems Constitutional: see HPI, malaise, weakness EENTM: see HPI Respiratory: see HPI, dyspnea on exertion, short of breath Cardiovascular: see HPI, edema Gastrointestinal: no symptoms reported, see HPI Genitourinary: see HPI Musculoskeletal: see HPI, joint pain, muscle stiffness, muscle weakness Skin: no symptoms reported, see HPI Psychiatric/Neurological: No Symptoms Reported, See HPI Reviewed Test Results Reviewed Test Results Lab Laboratory Tests Test 02/27/18 16:56 02/27/18 21:55 02/28/18 04:35 02/28/18 06:45 Range/Units Glucometer 171 H 220 H 158 H 70-110 MG/DL White Blood Count 3.1 L 4.3-11.0 10^3/uL Red Blood Count 2.49 L 4.35-5.85 10^6/uL Hemoglobin 7.3 L 13.3-17.7 G/DL Hematocrit 23 L 40-54 % Mean Corpuscular Volume 90 80-99 FL Mean Corpuscular Hemoglobin 29 25-34 PG Mean Corpuscular Hemoglobin Concent 32 32-36 G/DL Red Cell Distribution Width 13.5 10.0-14.5 % Platelet Count 121 L 130-400 10^3/uL Mean Platelet Volume 9.5 7.4-10.4 FL Sodium Level 142 135-145 MMOL/L Potassium Level 4.2 3.6-5.0 MMOL/L Chloride Level 108 H 98-107 MMOL/L Carbon Dioxide Level 26 21-32 MMOL/L Anion Gap 8 5-14 MMOL/L Blood Urea Nitrogen 30 H 7-18 MG/DL Creatinine 1.70 H 0.60-1.30 MG/DL Estimat Glomerular Filtration Rate 43 BUN/Creatinine Ratio 18 Glucose Level 153 H 70-105 MG/DL Calcium Level 8.4 L 8.5-10.1 MG/DL B-Type Natriuretic Peptide 283.4 H <100.0 PG/ML Test 02/28/18 10:53 02/28/18 16:09 Range/Units Glucometer 189 H 234 H 70-110 MG/DL Physical Exam Vital Signs Vital Signs - First Documented 02/23/18 17:45 Temp 97.9 Pulse 80 Resp 16 B/P (MAP) 191/94 (126) Pulse Ox 96 O2 Delivery Room Air Capillary Refill : Height, Weight, BMI Height: 5'11.00" Weight: 310lbs. 8.0oz. [id number]; 42.8 BMI Method:Stated General Appearance: WD/WN, Mild Distress Eyes: Bilateral Eye Normal Inspection, Bilateral Eye PERRL, Bilateral Eye EOMI HEENT: PERRL/EOMI, TMs Normal, Normal ENT Inspection, Pharynx Normal Neck: Full Range of Motion, Normal Inspection, Non Tender, Supple, Carotid Bruit Respiratory: Chest Non Tender, Normal Breath Sounds, No Accessory Muscle Use, No Respiratory Distress, Crackles Cardiovascular: Regular Rate, Rhythm, No Gallop, No JVD Gastrointestinal: Normal Bowel Sounds, No Organomegaly, No Pulsatile Mass, Non Tender, Soft Back: Normal Inspection, No CVA Tenderness, No Vertebral Tenderness Extremity: Normal Capillary Refill, Normal Inspection, Normal Range of Motion, Non Tender, No Calf Tenderness, Pedal Edema Neurologic/Psychiatric: Alert, Oriented x3, No Motor/Sensory Deficits, Normal Mood/Affect Skin: Normal Color, Warm/Dry Lymphatic: No Adenopathy A/P-Cardiology Admission Diagnosis Acute renal failure Peripheral edema Coronary artery disease Hypertension Assessment/Plan Generalized weakness and loss of energy secondary to complicated hospital stay after neck surgery, had pneumonia, bacteremia, received antibiotic and reporting improvement. Peripheral edema, +3, significant. Receiving low-dose diuretics. Continue to monitor closely. Patient has refused to take Lovenox due to bleeding, using SCD. Acute on chronic renal insufficiency. Worsening renal function, patient is receiving multiple medication, I will discontinue lisinopril and maintain him on losartan for now and monitor his tolerance and response, continue to monitor renal function closely. History of coronary artery disease, history of mid LAD stenting using Alpine 3.0 18 mm done in June 2017, mild to moderate disease in the proximal portion of the LAD, moderate disease at the distal circumflex artery. Continue to monitor History of diabetes mellitus, diabetic neuropathy, followed and managed by primary care physician History of hyperlipidemia with intolerance to statin. Anemia, worsening at this time, continue to monitor closely Spinal stenosis, status post C3-7 ACDF with C5 corpectomy done by Dr. Hardwick History of carotid stenosis, last ultrasound was done in July 2017. Continue to monitor History of respiratory failure secondary to pneumonia. Improved. Continue to monitor Clinical Quality Measures DVT/VTE Risk/Contraindication: Risk Factor Score Per Nursin RFS Level Per Nursing on Admit: 4+=Very High KAREN YANG MD Feb 28, 2018 17:01
[2018-02-28] MEDS: ROSUVASTATIN 5 MG (CRESTOR) TABLET PO SCH (20:41)
[2018-02-28] MEDS: MELATONIN 3 MG TABLET PO PRN (20:42)
[2018-02-28] MEDS: ONDANSETRON 4 MG (ZOFRAN) ORAL DISSOLVE TAB PO PRN (23:35)
[2018-03-01] MEDS: FERROUS SULF 325 MG (IRON) TAB PO SCH ×2 (06:09→16:10)
[2018-03-01] MEDS: GLIMEPIRIDE 4 MG (AMARYL) TAB PO SCH (06:09)
[2018-03-01] MEDS: inSUlin ASPART (NovoLOG) 1 UNIT/0.01 ML (CHARGE PER UNIT) SC SCH ×4 (06:17→21:20)
[2018-03-01 06:24] VITALS: BP 134/73
[2018-03-01 06:53] LABS: HEMOGLOBIN 7.4 G/DL (13.3-17.7); MEAN PLATELET VOLUME 9.8 FL (7.4-10.4); RED BLOOD COUNT 2.6 10^6/uL (4.35-5.85); RED CELL DISTRIBUTION WIDTH 13.7 % (10.0-14.5); WHITE BLOOD COUNT 3.6 10^3/uL (4.3-11.0)
[2018-03-01 07:08] LABS: CALCIUM 8.4 MG/DL (8.5-10.1); CREATININE SERUM 1.94 MG/DL (0.60-1.30); POTASSIUM 4.5 MMOL/L (3.6-5.0)
--- NOTE | 2018-03-01 08:06 | PM & R (SOAP) Progress Note ---
Subjective This was a face to face visit with the patient. Date Seen by Provider: Mar 01, 2018 Time Seen by Provider: 07:35 Subjective/Events-last exam Patient was seen in his room this AM Patient Modified Independent for transfers Date Identified: Mar 01, 2018 Time Identified: 07:35 Medication Intervention: Completed course of antibiotic for Bacteremia Objective Physician Exam Last Set of Vital Signs Vital Signs Date Time Temp Pulse Resp B/P (MAP) Pulse Ox O2 Delivery O2 Flow Rate FiO2 03/01/18 06:24 97.7 78 18 134/73 (93) 95 Room Air Capillary Refill : I&O Intake and Output 03/01/18 00:00 Intake Total 1500 ml Output Total 1400 ml Balance 100 ml Intake Oral 1500 ml Output Urine Total 1400 ml # Voids 2 # Bowel Movements 1 General: Alert, Oriented X3, Cooperative, No Acute Distress HEENT: Atraumatic, PERRLA, EOMI, Mucous Memb Moist/[place] Neck: Supple, No JVD Lungs: Clear to Auscultation Heart: Regular Rate Abdomen: Normal Bowel Sounds, Soft, No Tenderness Extremities: Other (+ edema Both ankles) Neuro: Other (generalized weakness) Psych/Mental Status: Mental Status NL Results Lab Data Laboratory Tests 02/26/18 11:05: Glucometer 216H 02/26/18 16:13: Glucometer 210H 02/26/18 21:13: Glucometer 196H 02/27/18 05:50: White Blood Count 3.3L, Red Blood Count 2.63L, Hemoglobin 7.4L, Hematocrit 24L, Mean Corpuscular Volume 90, Mean Corpuscular Hemoglobin 28, Mean Corpuscular Hemoglobin Concent 31L, Red Cell Distribution Width 13.7, Platelet Count 148, Mean Platelet Volume 9.3, Neutrophils (%) (Auto) 54, Lymphocytes (%) (Auto) 26, Monocytes (%) (Auto) 9, Eosinophils (%) (Auto) 10, Basophils (%) (Auto) 1, Neutrophils # (Auto) 1.8, Lymphocytes # (Auto) 0.9L, Monocytes # (Auto) 0.3, Eosinophils # (Auto) 0.3, Basophils # (Auto) 0.0, Sodium Level 142, Potassium Level 4.2, Chloride Level 107, Carbon Dioxide Level 25, Anion Gap 10, Blood Urea Nitrogen 24H, Creatinine 1.63H, Estimat Glomerular Filtration Rate 45, BUN/ Creatinine Ratio 15, Glucose Level 156H, Calcium Level 8.1L, Corrected Calcium 9.0, Total Bilirubin 0.3, Aspartate Amino Transf (AST/SGOT) 11, Alanine Aminotransferase (ALT/SGPT) 19, Alkaline Phosphatase 70, Total Protein 4.5L, Albumin 2.9L 02/27/18 11:43: Glucometer 178H 02/27/18 16:56: Glucometer 171H 02/27/18 21:55: Glucometer 220H 02/28/18 04:35: Glucometer 158H 02/28/18 06:45: White Blood Count 3.1L, Red Blood Count 2.49L, Hemoglobin 7.3L, Hematocrit 23L, Mean Corpuscular Volume 90, Mean Corpuscular Hemoglobin 29, Mean Corpuscular Hemoglobin Concent 32, Red Cell Distribution Width 13.5, Platelet Count 121L, Mean Platelet Volume 9.5, Sodium Level 142, Potassium Level 4.2, Chloride Level 108H, Carbon Dioxide Level 26, Anion Gap 8, Blood Urea Nitrogen 30H, Creatinine 1.70H, Estimat Glomerular Filtration Rate 43, BUN/Creatinine Ratio 18, Glucose Level 153H, Calcium Level 8.4L, B-Type Natriuretic Peptide 283.4H 02/28/18 10:53: Glucometer 189H 02/28/18 16:09: Glucometer 234H 02/28/18 20:13: Glucometer 200H 03/01/18 06:17: Glucometer 155H 03/01/18 06:45: White Blood Count 3.6L, Red Blood Count 2.60L, Hemoglobin 7.4L, Hematocrit 24L, Mean Corpuscular Volume 91, Mean Corpuscular Hemoglobin 28, Mean Corpuscular Hemoglobin Concent 31L, Red Cell Distribution Width 13.7, Platelet Count 131, Mean Platelet Volume 9.8, Sodium Level 141, Potassium Level 4.5, Chloride Level 107, Carbon Dioxide Level 25, Anion Gap 9, Blood Urea Nitrogen 40H, Creatinine 1.94H, Estimat Glomerular Filtration Rate 37, BUN/Creatinine Ratio 21, Glucose Level 149H, Calcium Level 8.4L Assessment/Plan Assessment and Plan Recent HX of C spine surgery for myelopathy DR Hardwick improving General debil secondary to postop anemia associated with Coag negative staph bacteremia cpmpleted course of triple antibiotic Pyelonephritis by CT treated HCAP treated DM2 controlled HTN controlled CHF with peripheral edeam improved with adjustment in diuretic Hypoalbuminemia HLP GABRIELLA on CPAP Plan Continue PT/OT Team Conference tomorrow see report for full functional update and POC and ELOS Co-Morbidities that are continuing to impact the rehab process: (include details ) SALEEM AMATO MD Mar 01, 2018 08:06
--- NOTE | 2018-03-01 08:20 | Cardiology Progress Note ---
Subjective Date Seen by Provider: Mar 01, 2018 Time Seen by Provider: 08:18 Subjective/Events-last exam Patient is sitting up in bed, no new complaints. Denies any CP or dyspnea. Review of Systems General: No Night Sweats, No Fatigue, No Malaise HEENT: No Visual Changes, No Dysphasia Pulmonary: No Dyspnea, No Cough Cardiovascular: Edema; No: Chest Pain, Palpitations, Paroxysmal Noc. Dyspnea Gastrointestinal: No: Nausea, Vomiting, Abdominal Pain Genitourinary: No Dysuria, No Frequency Musculoskeletal: neck pain; No: back pain Neurological: Weakness; No: Numbness, Change in speech, Confusion Objective-Cardiology Exam Last Set of Vital Signs Vital Signs 03/01/18 06:24 Temp 97.7 Pulse 78 Resp 18 B/P (MAP) 134/73 (93) Pulse Ox 95 O2 Delivery Room Air Capillary Refill : I&O Intake and Output 03/01/18 00:00 Intake Total 1500 ml Output Total 1400 ml Balance 100 ml Intake Oral 1500 ml Output Urine Total 1400 ml # Voids 2 # Bowel Movements 1 General: Alert, Oriented X3, Cooperative, No Acute Distress HEENT: Atraumatic, PERRLA, EOMI, Mucous Memb Moist/[place] Neck: Supple, No JVD Lungs: Clear to Auscultation Heart: Regular Rate Abdomen: Normal Bowel Sounds, Soft, No Tenderness Extremities: Other (+ 2-3 edema BLE) Neuro: Other (generalized weakness) Psych/Mental Status: Mental Status NL Results Lab Laboratory Tests 03/01/18 06:45 A/P-Cardiology Admission Diagnosis Acute renal failure Peripheral edema Coronary artery disease Hypertension Assessment/Plan Generalized weakness and loss of energy secondary to complicated hospital stay after neck surgery, had pneumonia, bacteremia, received antibiotic and reporting improvement. Peripheral edema, +2-3. Receiving low-dose diuretics. Continue to monitor closely. Patient has refused to take Lovenox due to bleeding, using SCD. Acute on chronic renal insufficiency. Worsening renal function, patient is receiving multiple medication,lisinopril was discontinued, continue to monitor renal function closely. History of coronary artery disease, history of mid LAD stenting using Alpine 3.0 18 mm done in June 2017, mild to moderate disease in the proximal portion of the LAD, moderate disease at the distal circumflex artery. Continue to monitor History of diabetes mellitus, diabetic neuropathy, followed and managed by primary care physician History of hyperlipidemia with intolerance to statin. Anemia, worsening at this time, continue to monitor closely Spinal stenosis, status post C3-7 ACDF with C5 corpectomy done by Dr. Hardwick History of carotid stenosis, last ultrasound was done in July 2017. Continue to monitor History of respiratory failure secondary to pneumonia. Improved. Continue to monitor Clinical Quality Measures DVT/VTE Risk/Contraindication: Risk Factor Score Per Nursin RFS Level Per Nursing on Admit: 4+=Very High CLAY SOMERS Mar 01, 2018 08:20
--- NOTE | 2018-03-01 08:30 | Progress Note (SOAP) ---
Subjective Time Seen by a Provider: 08:30 Subjective/Events-last exam Patient had a difficult day yesterday. Patient has no complaints. Patient's renal insufficiency a little worse. Anemia stable. Legs have some swelling but a little less. Objective Exam Vital Signs Date Time Temp Pulse Resp B/P (MAP) Pulse Ox O2 Delivery O2 Flow Rate FiO2 03/01/18 06:24 97.7 78 18 134/73 (93) 95 Room Air 02/28/18 21:00 Room Air 02/28/18 16:10 97.8 87 14 130/76 (94) 91 Room Air 02/28/18 12:57 73 140/74 (96) 02/28/18 09:08 Room Air I & O 03/01/18 07:00 Intake Total 2100 ml Output Total 1400 ml Balance 700 ml Capillary Refill : General Appearance: No Apparent Distress, WD/WN Results Lab Laboratory Tests 03/01/18 06:45 Laboratory Tests 02/28/18 10:53: Glucometer 189H 02/28/18 16:09: Glucometer 234H 02/28/18 20:13: Glucometer 200H 03/01/18 06:17: Glucometer 155H 03/01/18 06:45: White Blood Count 3.6L, Red Blood Count 2.60L, Hemoglobin 7.4L, Hematocrit 24L, Mean Corpuscular Volume 91, Mean Corpuscular Hemoglobin 28, Mean Corpuscular Hemoglobin Concent 31L, Red Cell Distribution Width 13.7, Platelet Count 131, Mean Platelet Volume 9.8, Sodium Level 141, Potassium Level 4.5, Chloride Level 107, Carbon Dioxide Level 25, Anion Gap 9, Blood Urea Nitrogen 40H, Creatinine 1.94H, Estimat Glomerular Filtration Rate 37, BUN/Creatinine Ratio 21, Glucose Level 149H, Calcium Level 8.4L Assessment/Plan Assessment/Plan Assess & Plan/Chief Complaint Diabetes. Coagulase negative bacteremia. Recent cervical surgery. Myopathy. Weakness. Renal insufficiency. . 03/01/18. Diabetes doing better. Coagulase negative bacteremia. Recent cervical surgery. Myopathy. Weakness. Renal insufficiency. Clinical Quality Measures DVT/VTE Risk/Contraindication: Risk Factor Score Per Nursin RFS Level Per Nursing on Admit: 4+=Very High MARIIA SIM DO Mar 01, 2018 08:30
[2018-03-01] MEDS: CLOPIDOGREL 75 MG (PLAVIX) TABLET PO SCH (09:45)
[2018-03-01] MEDS: hydrALAZINE (APRESOLINE) 25 MG TAB PO SCH ×3 (09:45→21:15)
[2018-03-01] MEDS: ASPIRIN E.C. 81 MG (ECOTRIN) TAB PO SCH (09:45)
[2018-03-01] MEDS: FUROSEMIDE 40 MG (LASIX) TAB PO SCH (09:45)
[2018-03-01] MEDS: amLODIPine 10 MG (NORVASC) TAB PO SCH (09:45)
[2018-03-01] MEDS: LORATADINE (CLARITIN) 10 MG TAB PO SCH (09:45)
[2018-03-01] MEDS: LOSARTAN 100 MG (COZAAR) TABLET PO SCH (09:45)
[2018-03-01] MEDS: GABAPENTIN 600 MG (NEURONTIN) TAB PO SCH ×3 (09:45→21:15)
[2018-03-01] MEDS: meTOprolol TARTRATE 50 MG (LOPRESSOR) TAB PO SCH ×2 (09:45→21:15)
[2018-03-01] MEDS: MENTHOL/ZINC OXIDE (CALMOSEPTINE) 113 GM TUBE TOP SCH ×2 (09:45→22:02)
--- NOTE | 2018-03-01 10:02 | Physical Therapy Daily Note ---
PT Daily Note-Current Subjective Patient in bed pre tx, agrees to PT, no complaints of pain. Patient needs to get dressed lowers and has to use the restroom for a BM. Appearance Patient in recliner post tx with nurse call, phone, tray, all needs met. Mental Status Patient Orientation: Normal For Age cervical collar Transfers Functional [place] Measure 0=Not Assessed/NA 4=Minimal Assistance 1=Total Assistance 5=Supervision or Setup 2=Maximal Assistance 6=Modified [place] 3=Moderate Assistance 7=Complete IndependenceIRFPAI Quality Coding Scale 6 Independent with activity with or without an assistive device 5 Patient requires set up or clean up by helper. Patient completes activity by themselves 4 Supervision or touching assist (CGA). E[place]ile provide cues , steadying assist 3 The helper provides less than half the effort to complete the activity 2 The helper provides more than half the effort to complete the activity 1 Dependent. The helper does all the effort to complete an activity 7 Patient refused to complete or attempt activity 9 The patient did not perform the activity before the current illness or injury 88 Not attempted due to Medical conditions or safety concerns Transfers (B, C, W/C) (FIM): 4 Scootin Rollin Supine to/from Sit: 6 Sit to/from Stand: 4 Bed to/from Chair: 4 bed mobility mod I, sit to stand CGA but may need min assist from lower surfaces , transfers, CGA Weight Bearing Right Lower Extremity: Right Full Weight Bearing Left Lower Extremity: Left Full Weight Bearing Gait Training Gait (FIM): 5 Distance: 150', 100' Gait Level of Assist: 5 Gait Persons Needed: 1 Gait Assistive Device: FWW Exercises NuStep Minutes: 25 NuStep Workload: 5 Treatments bed mobility and transfers, ambulation, functional strengthening (patient requested to perform NuStep for extra time this morning instead of other exercises) Assessment Current Status: Fair Progress improving strength and mobility PT Short Term Goals Short Term Goals Time Frame: Mar 03, 2018 Gait (FIM): 2 Gait Distance Comment: 100' Gait Level of Assist: 4 Gait Assistive Device: FWW Wheelchair Distance: 150'x3 PT Fdc Goals Fdc Goals PT Freight Team Associate Goals Time Frame: Mar 17, 2018 Transfers (B,C,W/C) (FIM): 5 Sit to Lying (QC): 4 Lying-Sitting on Side/Bed(QC): 4 Sit to Stand (QC): 4 Rollin Roll Left to Right (QC): 4 [id number] Xfer(QC): 4 Car Transfer (QC): 4 Gait (FIM): 5 Distance: 150' Walk 10 feet (QC): 4 Walk 10ft-Uneven Surface(QC): 4 Walk 50ft with 2 Turns (QC): 4 Walk 150 ft (QC): 4 Gait Level of Assist: 5 Gait Assistive Device: FWW Stairs (FIM): 2 # of Steps: 4 1 Step (curb) (QC): 4 4 Steps (QC): 4 Stairs Level Of Assist: 4 PT Plan Problem List Problem List: Activity Tolerance, Functional Strength, Safety, Balance, Gait, Transfer, ROM Treatment/Plan Treatment Plan: Continue Plan of Care Treatment Plan: Bed Mobility, Education, Functional Activity [place], Functional Strength, Group Therapy, Gait, Safety, Therapeutic Exercise, Transfers Treatment Duration: Mar 17, 2018 Frequency: At least 5 of 7 days/Wk (IRF) Estimated Hrs Per Day: 1.5 hours per day Patient and/or Family Agrees t: Yes Safety Risks/Education Patient Education: Gait Training, Transfer Techniques, Correct Positioning, Reviewed Don/Doff Brace, Safety Issues Teaching Recipient: Patient Teaching Methods: Demonstration, Discussion Response to Teaching: Reinforcement Needed Time/GCodes Time In: 0900 Time Out: 1000 Total Billed Treatment Time: 60 Total Billed Treatment 1 visit EX 25' GT 15' FA 20' MARCELL BADILLO PT Mar 01, 2018 10:02
--- NOTE | 2018-03-01 11:15 | Cardiology Progress Note ---
Subjective Date Seen by Provider: Mar 01, 2018 Time Seen by Provider: 11:14 Subjective/Events-last exam Patient is feeling better, still having significant peripheral edema. Denied any chest pain. Review of Systems General: No Chills, No Night Sweats; Fatigue; No Malaise, No Appetite, No Other HEENT: No Head Aches, No Visual Changes, No Eye Pain, No Ear Pain, No Dysphasia , No Sinus Congestion, No Post Nasal Drip, No Sore Throat, No Other Pulmonary: Dyspnea; No Cough, No Pleuritic Chest Pain, No Other Cardiovascular: Edema; No: Chest Pain, Palpitations, Orthopnea, Paroxysmal Noc. Dyspnea, Lt Headedness, Other Objective-Cardiology Exam Last Set of Vital Signs Vital Signs 03/01/18 03/01/18 06:24 09:00 Temp 97.7 Pulse 78 Resp 18 B/P (MAP) 134/73 (93) Pulse Ox 95 O2 Delivery Room Air Capillary Refill : I&O Intake and Output 03/01/18 00:00 Intake Total 1500 ml Output Total 1400 ml Balance 100 ml Intake Oral 1500 ml Output Urine Total 1400 ml # Voids 2 # Bowel Movements 1 General: Alert, Oriented X3, Cooperative, No Acute Distress HEENT: Atraumatic, PERRLA, EOMI, Mucous Memb Moist/[place] Neck: Supple, No JVD Lungs: Clear to Auscultation Heart: Regular Rate, Normal S1, Normal S2 Abdomen: Normal Bowel Sounds, Soft, No Tenderness Extremities: No Clubbing, Normal Pulses, Other (+ 2-3 edema BLE) Skin: No Rashes Neuro: Normal Speech, Strength at 5/5 X4 Ext, Other (generalized weakness) Psych/Mental Status: Mental Status NL Results Lab Laboratory Tests 03/01/18 06:45 A/P-Cardiology Admission Diagnosis Acute renal failure Peripheral edema Coronary artery disease Hypertension Assessment/Plan Generalized weakness and loss of energy secondary to complicated hospital stay after neck surgery, had pneumonia, bacteremia, received antibiotic and reporting improvement. Peripheral edema, +2-3. Due to deteriorating renal function I will decrease Lasix to 40 mg once daily and monitor renal function closely, discussed increasing fluid intake at this time. Echocardiogram was done at [facility] on February 14, 2018 showing moderate LVH, moderately dilated left atrium, diastolic dysfunction, estimated PA pressure 40 mmHg, ejection fraction 50-55 percent. Patient has refused to take Lovenox due to bleeding, using SCD. Acute on chronic renal insufficiency. Worsening renal function, patient is receiving multiple medication,lisinopril was discontinued, continue to monitor renal function closely. History of coronary artery disease, history of mid LAD stenting using Alpine 3.0 18 mm done in June 2017, mild to moderate disease in the proximal portion of the LAD, moderate disease at the distal circumflex artery. Continue to monitor History of diabetes mellitus, diabetic neuropathy, followed and managed by primary care physician History of hyperlipidemia with intolerance to statin. Anemia, worsening at this time, continue to monitor closely Spinal stenosis, status post C3-7 ACDF with C5 corpectomy done by Dr. Hardwick History of carotid stenosis, last ultrasound was done in July 2017. Continue to monitor History of respiratory failure secondary to pneumonia. Improved. Continue to monitor Clinical Quality Measures DVT/VTE Risk/Contraindication: Risk Factor Score Per Nursin RFS Level Per Nursing on Admit: 4+=Very High KAREN YANG MD Mar 01, 2018 11:15 am
--- NOTE | 2018-03-01 12:26 | Occupational Ther Daily Note ---
OT Current Status-Daily Note Subjective No pain reported. Appearance Pt. is up in chair. Declines showering as he had one yesterday. Requests to use the bathroom. Mental Status/Objective Patient Orientation: Person, Place, Time, Situation Functional [place] Measure 0=Not Assessed/NA 4=Minimal Assistance 1=Total Assistance 5=Supervision or Setup 2=Maximal Assistance 6=Modified [place] 3=Moderate Assistance 7=Complete [place] ADL-Treatment Functional [place] Measure 0=Not Assessed/NA 4=Minimal Assistance 1=Total Assistance 5=Supervision or Setup 2=Maximal Assistance 6=Modified [place] 3=Moderate Assistance 7=Complete IndependenceIRFPAI Quality Coding Scale 6 Independent with activity with or without an assistive device 5 Patient requires set up or clean up by helper. Patient completes activity by themselves 4 Supervision or touching assist (CGA). [place] provide cues , steadying assist 3 The helper provides less than half the effort to complete the activity 2 The helper provides more than half the effort to complete the activity 1 Dependent. The helper does all the effort to complete an activity 7 Patient refused to complete or attempt activity 9 The patient did not perform the activity before the current illness or injury 88 Not attempted due to Medical conditions or safety concerns Grooming (FIM): 5 (Set up to comb hair and brush teeth.) Oral Hygiene (QC): 5 Toileting (FIM): 5 (SBA) Toileting Hygiene (QC): 4 Transfers (B, C, W/C) (FIM): 4 (Min assist at times for sit-stand and CGA to ambulate.) Toilet/Commode Transfer (FIM): 5 Toilet Transfer (QC): 4 Other Treatment After pt. toileted, he agreed to ambulate to therapy gym. Tolerated 10 minutes on armbike at low resistance for increased overall endurance. Pt. then completed fine motor task of using therapy pegs to put into peg board. Pt. reports that his left hand is starting to feel stronger. Pt. able to do this task but reported feeling fatigued. Pt. ambulated from therapy gym to room where he transferred to wheelchair. Went outside in wheelchair as pt. reported that he would "like some air." Talked in depth regarding equipment needs for home. Pt. will need a walker, and would benefit from a tub/transfer bench, grab bars at toilet, and possibly a wheelchair. Pt. verbalizes using wheelchair at work. However, pt. is educated about not being able to lift wheelchair to put into car. Pt. is concerned about returning to work. Went back to large bathroom where pt. was shown and educated on tub transfer bench and grab bars at toilet. Went to room and pt. ambulated with walker back to bed area. All needs met in room. Education OT Patient Education: Correct positioning, Exercise program, Modified ADL techniques, Progress toward Goal/Update tx plan, Purpose of tx/functional activities, Reviewed precautions, Rehab process, Transfer techniques Teaching Recipient: Patient Teaching Methods: Demonstration, Discussion Response to Teaching: Verbalize Understanding, Return Demonstration OT Short Term Goals Short Term Goals Time Frame: Mar 03, 2018 Bathing(FIM): 4 Lower Body Dressing(FIM): 4 Toileting(FIM): 4 Toilet/Commode Transfer(FIM): 4 Additional Short Term Goals: 2-Verbalize Understanding, 3-ImproveStrength/[place] 1=Demonstrate adherence to instructed precautions during ADL tasks. 2=Patient will verbalize/demonstrate understanding of assistive devices/ modifications for ADL. 3=Patient will improve strength/tolerance for activity to enable patient to perform ADL's. OT Longterm Goals Wool Hat Forming Machine Tender Goals Time Frame: Mar 17, 2018 Eating (FIM): 7 Eating (QC): 6 Groomin Oral Hygiene (QC): 6 Bathing(FIM): 5 Shower/Bathe Self (QC): 5 Upper Body Dressing(FIM): 6 Upper Body Dressing (QC): 6 Lower Body Dressing(FIM): 5 Lower Body Dressing (QC): 5 On/Off Footwear (QC): 5 Toileting(FIM): 5 Toileting Hygiene (QC): 5 Toilet/Commode Transfer(FIM): 5 Toilet/Commode Transfer (QC): 5 Shower Transfer(FIM): 5 Additional Goals: 1-Demonstrate ADL Tasks, 2-Verbalize Understanding, 3- ImproveStrength/[place] 1=Demonstrate adherence to instructed precautions during ADL tasks. 2=Patient will verbalize/demonstrate understanding of assistive devices/ modifications for ADL. 3=Patient will improve strength/tolerance for activity to enable patient to perform ADL's. OT Education/Plan Problem List/Assessment Assessment: Decreased Activ Tolerance, Decreased UE Strength, Impaired I ADL's , Impaired Self-Care Skills, Restricted Funct UE ROM Discharge Recommendations Plan/Recommendations: Continue POC Therapy D/C Recommendations: Home w/ Family Support, Occupational Therapy Home Care Equpiment Recommendations-D/C: Extended Bath Bench, Toilet Riser with Rails Comment Pt. will need a walker and possibly a wheelchair. Treatment Plan/Plan of Care Treatment,Training & Education: Yes Patient would benefit from OT for education, treatment and training to promote independence in ADL's, mobility, safety and/or upper extremity function for ADL' s. Plan of Care: ADL Retraining, Functional Mobility, Group Exercise/Act as Ind, UE Funct Exercise/Act Treatment Duration: Mar 17, 2018 Frequency: Modified Program (IRF) (25/12) Estimated Hrs Per Day: 1.5 hours per day Agreement: Yes Rehab Potential: Good Time/GCodes Start Time: 10:00 Stop Time: 11:30 Total Time Billed (hr/min): 90 Billed Treatment Time 1, Ex x 30minutes, FA x 60minutes RICHARD LING OT Mar 01, 2018 12:26
--- NOTE | 2018-03-01 14:15 | Physical Therapy Daily Note ---
PT Daily Note-Current Subjective pt in bed pre tx, agrees to PT, no pain to report, pt wears cervical collar when out of bed Appearance pt in recliner post tx, w/ phone, call light, tray, all needs met Mental Status Patient Orientation: Normal For Age Transfers Functional [place] Measure 0=Not Assessed/NA 4=Minimal Assistance 1=Total Assistance 5=Supervision or Setup 2=Maximal Assistance 6=Modified [place] 3=Moderate Assistance 7=Complete IndependenceIRFPAI Quality Coding Scale 6 Independent with activity with or without an assistive device 5 Patient requires set up or clean up by helper. Patient completes activity by themselves 4 Supervision or touching assist (CGA). [place] provide cues , steadying assist 3 The helper provides less than half the effort to complete the activity 2 The helper provides more than half the effort to complete the activity 1 Dependent. The helper does all the effort to complete an activity 7 Patient refused to complete or attempt activity 9 The patient did not perform the activity before the current illness or injury 88 Not attempted due to Medical conditions or safety concerns Transfers (B, C, W/C) (FIM): 5 Supine to/from Sit: 6 Sit to/from Stand: 5 SBA for all transfers, occasional CGA for lower surfaces Weight Bearing Right Lower Extremity: Right Full Weight Bearing Left Lower Extremity: Left Full Weight Bearing Gait Training Does the Patient Walk?: Yes Gait (FIM): 5 Distance: 150x2 Gait Level of Assist: 5 Gait Persons Needed: 1 Gait Assistive Device: FWW pt ambulates to/from gym w/ FWW and SBA, pt needs frequent standing rest breaks and takes short steps w/ flexed posture Exercises Standing: Sit to Stand Standing Reps: 15 sit<->stand on mat table w/ high, mid, and low table height, x5 each LE stretching HS and gastroc/soleus 2x30s each Treatments gait training, functional strengthening Assessment Current Status: Fair Progress improved sit<->stand transfers from lower surfaces PT Short Term Goals Short Term Goals Time Frame: Mar 03, 2018 Gait (FIM): 2 Gait Distance Comment: 100' Gait Level of Assist: 4 Gait Assistive Device: FWW Wheelchair Distance: 150'x3 PT Creative Project Manager Goals Creative Project Manager Goals PT Jail Goals Time Frame: Mar 17, 2018 Transfers (B,C,W/C) (FIM): 5 Sit to Lying (QC): 4 Lying-Sitting on Side/Bed(QC): 4 Sit to Stand (QC): 4 Rollin Roll Left to Right (QC): 4 Chair/Guu-gt-Eybcg Xfer(QC): 4 Car Transfer (QC): 4 Gait (FIM): 5 Distance: 150' Walk 10 feet (QC): 4 Walk 10ft-Uneven Surface(QC): 4 Walk 50ft with 2 Turns (QC): 4 Walk 150 ft (QC): 4 Gait Level of Assist: 5 Gait Assistive Device: FWW Stairs (FIM): 2 # of Steps: 4 1 Step (curb) (QC): 4 4 Steps (QC): 4 Stairs Level Of Assist: 4 PT Plan Problem List Problem List: Activity Tolerance, Functional Strength, Safety, Balance, Gait, Transfer, Bed Mobility, ROM Treatment/Plan Treatment Plan: Continue Plan of Care Treatment Plan: Bed Mobility, Education, Functional Activity [place], Functional Strength, Group Therapy, Gait, Safety, Therapeutic Exercise, Transfers Treatment Duration: Mar 17, 2018 Frequency: At least 5 of 7 days/Wk (IRF) Estimated Hrs Per Day: 1.5 hours per day Patient and/or Family Agrees t: Yes Safety Risks/Education Patient Education: Gait Training, Transfer Techniques, Reviewed Precautions, Correct Positioning, Reviewed Don/Doff Brace, Safety Issues Teaching Recipient: Patient Teaching Methods: Demonstration, Discussion Response to Teaching: Reinforcement Needed Time/GCodes Time In: 1300 Time Out: 1330 Total Billed Treatment Time: 30 Total Billed Treatment 1 visit GT 10' EX 20' MARCELL BADILLO PT Mar 01, 2018 14:15
[2018-03-01 18:12] VITALS: BP 165/88
[2018-03-01] MEDS: ROSUVASTATIN 5 MG (CRESTOR) TABLET PO SCH (21:15)
[2018-03-01] MEDS: MELATONIN 3 MG TABLET PO PRN (22:19)
[2018-03-02] VITALS (9 sets, daily range): BP systolic 127–171; BP diastolic 69–97
[2018-03-02 06:00] LABS: RED BLOOD COUNT 2.29 10^6/uL (4.35-5.85); RED CELL DISTRIBUTION WIDTH 13.5 % (10.0-14.5); WHITE BLOOD COUNT 4.4 10^3/uL (4.3-11.0)
[2018-03-02 06:16] LABS: HEMOGLOBIN 6.7 G/DL (13.3-17.7)
[2018-03-02 06:37] LABS: CALCIUM 8.5 MG/DL (8.5-10.1); CREATININE SERUM 1.85 MG/DL (0.60-1.30); POTASSIUM 4.6 MMOL/L (3.6-5.0)
[2018-03-02] MEDS: inSUlin ASPART (NovoLOG) 1 UNIT/0.01 ML (CHARGE PER UNIT) SC SCH ×4 (06:40→21:58)
[2018-03-02] MEDS: FERROUS SULF 325 MG (IRON) TAB PO SCH ×2 (06:56→17:44)
[2018-03-02] MEDS: GLIMEPIRIDE 4 MG (AMARYL) TAB PO SCH (06:57)
--- NOTE | 2018-03-02 07:47 | PM & R (SOAP) Progress Note ---
Subjective This was a face to face visit with the patient. Date Seen by Provider: Mar 02, 2018 Time Seen by Provider: 06:50 Subjective/Events-last exam Patient was seen in his room this AM case discussed with RN Patients HGB has dropped to below 7 PCP has ordered PRBCS Date Identified: Mar 02, 2018 Time Identified: 07:00 Medication Intervention: PRBCS ordered for HGB 6.7 Objective Physician Exam Last Set of Vital Signs Vital Signs Date Time Temp Pulse Resp B/P (MAP) Pulse Ox O2 Delivery O2 Flow Rate FiO2 03/02/18 05:57 98.8 87 18 127/74 (91) 94 Room Air Capillary Refill : I&O Intake and Output 03/02/18 00:00 Intake Total 1780 ml Output Total 900 ml Balance 880 ml Intake Oral 1780 ml Output Urine Total 900 ml # Voids 4 # Bowel Movements 2 General: Alert, Oriented X3, Cooperative, No Acute Distress HEENT: Atraumatic, PERRLA, EOMI, Mucous Memb Moist/[place] Neck: Supple, No JVD Lungs: Clear to Auscultation Heart: Regular Rate, Normal S1, Normal S2 Abdomen: Normal Bowel Sounds, Soft, No Tenderness Extremities: No Clubbing, Normal Pulses, Other (+ 2-3 edema BLE) Skin: No Rashes Neuro: Normal Speech, Strength at 5/5 X4 Ext, Other (generalized weakness) Psych/Mental Status: Mental Status NL Results Lab Data Laboratory Tests 02/27/18 11:43: Glucometer 178H 02/27/18 16:56: Glucometer 171H 02/27/18 21:55: Glucometer 220H 02/28/18 04:35: Glucometer 158H 02/28/18 06:45: White Blood Count 3.1L, Red Blood Count 2.49L, Hemoglobin 7.3L, Hematocrit 23L, Mean Corpuscular Volume 90, Mean Corpuscular Hemoglobin 29, Mean Corpuscular Hemoglobin Concent 32, Red Cell Distribution Width 13.5, Platelet Count 121L, Mean Platelet Volume 9.5, Sodium Level 142, Potassium Level 4.2, Chloride Level 108H, Carbon Dioxide Level 26, Anion Gap 8, Blood Urea Nitrogen 30H, Creatinine 1.70H, Estimat Glomerular Filtration Rate 43, BUN/Creatinine Ratio 18, Glucose Level 153H, Calcium Level 8.4L, B-Type Natriuretic Peptide 283.4H 02/28/18 10:53: Glucometer 189H 02/28/18 16:09: Glucometer 234H 02/28/18 20:13: Glucometer 200H 03/01/18 06:17: Glucometer 155H 03/01/18 06:45: White Blood Count 3.6L, Red Blood Count 2.60L, Hemoglobin 7.4L, Hematocrit 24L, Mean Corpuscular Volume 91, Mean Corpuscular Hemoglobin 28, Mean Corpuscular Hemoglobin Concent 31L, Red Cell Distribution Width 13.7, Platelet Count 131, Mean Platelet Volume 9.8, Sodium Level 141, Potassium Level 4.5, Chloride Level 107, Carbon Dioxide Level 25, Anion Gap 9, Blood Urea Nitrogen 40H, Creatinine 1.94H, Estimat Glomerular Filtration Rate 37, BUN/Creatinine Ratio 21, Glucose Level 149H, Calcium Level 8.4L 03/01/18 11:22: Glucometer 199H 03/01/18 15:36: Glucometer 245H 03/01/18 20:10: Glucometer 202H 03/02/18 05:45: White Blood Count 4.4, Red Blood Count 2.29L, Hemoglobin 6.7*L, Hematocrit 21L, Mean Corpuscular Volume 91, Mean Corpuscular Hemoglobin 29, Mean Corpuscular Hemoglobin Concent 32, Red Cell Distribution Width 13.5, Platelet Count 120L, Mean Platelet Volume 10.0, Sodium Level 141, Potassium Level 4.6, Chloride Level 109H, Carbon Dioxide Level 24, Anion Gap 8, Blood Urea Nitrogen 45H, Creatinine 1.85H, Estimat Glomerular Filtration Rate 39, BUN/Creatinine Ratio 24 , Glucose Level 150H, Calcium Level 8.5 Assessment/Plan Assessment and Plan recent HX of C spine saurgery for DDD with myelopathy improving Postop anemia to have Traaaaaaaaansfusion PRBCS General debil secondary to postop anemia associated with Coag neg staph bacteremia improving s/p course of rtriple antibiotic Pylelonephritis by CT treated HCAP treated DM2 controlled HTN controlled CHF with peripheral edema improved with diuresis Hypoalbuminemia HLP GABRIELLA on cpap Obesity Plan Continue PT/OT Recheck H&H after Transfusion Team Conference held yeterday-see report for full functional update and POC and ELOS F/U with PCP DR peters Co-Morbidities that are continuing to impact the rehab process: (include details ) SALEEM AMATO MD Mar 02, 2018 07:47
--- NOTE | 2018-03-02 08:12 | Progress Note (SOAP) ---
Subjective Time Seen by a Provider: 08:08 Subjective/Events-last exam Patient feeling okay today. Patient says legs are swelling. Patient's hemoglobin 6.7. If if occult blood is positive patient refuses further evaluation to be put to sleep. Patient TO receive a unit of blood Objective Exam Vital Signs Date Time Temp Pulse Resp B/P (MAP) Pulse Ox O2 Delivery O2 Flow Rate FiO2 03/02/18 05:57 98.8 87 18 127/74 (91) 94 Room Air 03/01/18 20:34 Room Air 03/01/18 18:12 98.0 86 18 165/88 (113) 91 Room Air 03/01/18 09:00 Room Air I & O 03/02/18 07:00 Intake Total 1660 ml Balance 1660 ml Capillary Refill : General Appearance: No Apparent Distress, WD/WN HEENT: Normal ENT Inspection Neck: Normal Inspection Respiratory: No Accessory Muscle Use, No Respiratory Distress Cardiovascular: Regular Rate, Rhythm, No Murmur Results Lab Laboratory Tests 03/01/18 11:22: Glucometer 199H 03/01/18 15:36: Glucometer 245H 03/01/18 20:10: Glucometer 202H 03/02/18 05:45: White Blood Count 4.4, Red Blood Count 2.29L, Hemoglobin 6.7*L, Hematocrit 21L, Mean Corpuscular Volume 91, Mean Corpuscular Hemoglobin 29, Mean Corpuscular Hemoglobin Concent 32, Red Cell Distribution Width 13.5, Platelet Count 120L, Mean Platelet Volume 10.0, Sodium Level 141, Potassium Level 4.6, Chloride Level 109H, Carbon Dioxide Level 24, Anion Gap 8, Blood Urea Nitrogen 45H, Creatinine 1.85H, Estimat Glomerular Filtration Rate 39, BUN/Creatinine Ratio 24 , Glucose Level 150H, Calcium Level 8.5 Assessment/Plan Assessment/Plan Assess & Plan/Chief Complaint Diabetes. Coagulase negative bacteremia. Recent cervical surgery. Myopathy. Weakness. Renal insufficiency. . 03/01/18. Diabetes doing better. Coagulase negative bacteremia. Recent cervical surgery. Myopathy. Weakness. Renal insufficiency.. . To 03/02/18. Weakness. Renal insufficiency. Coagulase negative bacteremia. Hemoglobin 6.7. Patient to get 1 unit of packed red blood cells today Clinical Quality Measures DVT/VTE Risk/Contraindication: Risk Factor Score Per Nursin RFS Level Per Nursing on Admit: 4+=Very High MARIIA SIM DO Mar 02, 2018 08:11
--- NOTE | 2018-03-02 08:34 | Cardiology Progress Note ---
Subjective Date Seen by Provider: Mar 02, 2018 Time Seen by Provider: 08:33 Subjective/Events-last exam Complains of fatigue this morning. Denies any CP or dyspnea. Objective-Cardiology Exam Last Set of Vital Signs Vital Signs 03/02/18 05:57 Temp 98.8 Pulse 87 Resp 18 B/P (MAP) 127/74 (91) Pulse Ox 94 O2 Delivery Room Air Capillary Refill : I&O Intake and Output 03/02/18 00:00 Intake Total 1780 ml Output Total 900 ml Balance 880 ml Intake Oral 1780 ml Output Urine Total 900 ml # Voids 4 # Bowel Movements 2 General: Alert, Oriented X3, Cooperative, No Acute Distress HEENT: Atraumatic, PERRLA, EOMI, Mucous Memb Moist/[place] Neck: Supple, No JVD Lungs: Clear to Auscultation Heart: Regular Rate, Normal S1, Normal S2 Abdomen: Normal Bowel Sounds, Soft, No Tenderness Extremities: No Clubbing, Normal Pulses, Other (+ 2-3 edema BLE) Skin: No Rashes Neuro: Normal Speech, Strength at 5/5 X4 Ext, Other (generalized weakness) Psych/Mental Status: Mental Status NL Results Lab Laboratory Tests 03/02/18 05:45 A/P-Cardiology Admission Diagnosis Acute renal failure Peripheral edema Coronary artery disease Hypertension Assessment/Plan Generalized weakness and loss of energy secondary to complicated hospital stay after neck surgery, had pneumonia, bacteremia, received antibiotic and reporting improvement. Peripheral edema, +2-3. Due to deteriorating renal function I will decrease Lasix to 40 mg once daily and monitor renal function closely, discussed increasing fluid intake at this time. Echocardiogram was done at [facility] on February 14, 2018 showing moderate LVH, moderately dilated left atrium, diastolic dysfunction, estimated PA pressure 40 mmHg, ejection fraction 50-55 percent. Patient has refused to take Lovenox due to bleeding, using SCD. Acute on chronic renal insufficiency. Worsening renal function, patient is receiving multiple medication,lisinopril was discontinued, continue to monitor renal function closely. History of coronary artery disease, history of mid LAD stenting using Alpine 3.0 18 mm done in June 2017, mild to moderate disease in the proximal portion of the LAD, moderate disease at the distal circumflex artery. Continue to monitor History of diabetes mellitus, diabetic neuropathy, followed and managed by primary care physician History of hyperlipidemia with intolerance to statin. Anemia, worsening at this time, I will hold Plavix, continue ASA. PRBC transfusion this morning. Monitor H/H closely. Spinal stenosis, status post C3-7 ACDF with C5 corpectomy done by Dr. Hardwick History of carotid stenosis, last ultrasound was done in July 2017. Continue to monitor History of respiratory failure secondary to pneumonia. Improved. Continue to monitor Clinical Quality Measures DVT/VTE Risk/Contraindication: Risk Factor Score Per Nursin RFS Level Per Nursing on Admit: 4+=Very High CLAY SOMERS Mar 02, 2018 08:34
[2018-03-02] MEDS: hydrALAZINE (APRESOLINE) 25 MG TAB PO SCH ×3 (08:51→20:21)
[2018-03-02] MEDS: meTOprolol TARTRATE 50 MG (LOPRESSOR) TAB PO SCH ×2 (08:51→20:22)
[2018-03-02] MEDS: LOSARTAN 100 MG (COZAAR) TABLET PO SCH (08:51)
[2018-03-02] MEDS: amLODIPine 10 MG (NORVASC) TAB PO SCH (08:51)
[2018-03-02] MEDS: LORATADINE (CLARITIN) 10 MG TAB PO SCH (08:51)
[2018-03-02] MEDS: GABAPENTIN 600 MG (NEURONTIN) TAB PO SCH ×3 (08:51→20:22)
[2018-03-02] MEDS: FUROSEMIDE 40 MG (LASIX) TAB PO SCH (08:51)
--- NOTE | 2018-03-02 08:51 | Cardiology Progress Note ---
Subjective Date Seen by Provider: Mar 02, 2018 Time Seen by Provider: 08:49 Subjective/Events-last exam Patient was seen while receiving physical therapy, exercising on a recumbent bike. Denied any chest pain, still complaining of fatigue and loss of energy. Review of Systems General: No Chills, No Night Sweats, No Fatigue, No Malaise, No Appetite, No Other HEENT: No Head Aches, No Visual Changes, No Eye Pain, No Ear Pain, No Dysphasia , No Sinus Congestion, No Post Nasal Drip, No Sore Throat, No Other Pulmonary: Dyspnea; No Cough, No Pleuritic Chest Pain, No Other Cardiovascular: Edema; No: Chest Pain, Palpitations, Orthopnea, Paroxysmal Noc. Dyspnea, Lt Headedness, Other Objective-Cardiology Exam Last Set of Vital Signs Vital Signs 03/02/18 05:57 Temp 98.8 Pulse 87 Resp 18 B/P (MAP) 127/74 (91) Pulse Ox 94 O2 Delivery Room Air Capillary Refill : I&O Intake and Output 03/02/18 00:00 Intake Total 1780 ml Output Total 900 ml Balance 880 ml Intake Oral 1780 ml Output Urine Total 900 ml # Voids 4 # Bowel Movements 2 General: Alert, Oriented X3, Cooperative, No Acute Distress HEENT: Atraumatic, PERRLA, EOMI, Mucous Memb Moist/[place] Neck: Supple, No JVD Lungs: Clear to Auscultation Heart: Regular Rate, Normal S1, Normal S2 Abdomen: Normal Bowel Sounds, Soft, No Tenderness Extremities: No Clubbing, Normal Pulses, Other (+ 2-3 edema BLE) Skin: No Rashes Neuro: Normal Speech, Strength at 5/5 X4 Ext, Other (generalized weakness) Psych/Mental Status: Mental Status NL Results Lab Laboratory Tests 03/02/18 05:45 A/P-Cardiology Admission Diagnosis Acute renal failure Peripheral edema Coronary artery disease Hypertension Assessment/Plan Generalized weakness and loss of energy secondary to complicated hospital stay after neck surgery, had pneumonia, bacteremia, received antibiotic and reporting improvement. Peripheral edema, +2-3. Continue on Lasix 40 mg once daily and monitor closely. Anemia, worsening today, scheduled to receive one unit of packed RBCs, I will start on Protonix. Hold Plavix and continue aspirin Echocardiogram was done at [facility] on February 14, 2018 showing moderate LVH, moderately dilated left atrium, diastolic dysfunction, estimated PA pressure 40 mmHg, ejection fraction 50-55 percent. Patient has refused to take Lovenox due to bleeding, using SCD. Acute on chronic renal insufficiency. Slightly better renal function today. Continue to monitor History of coronary artery disease, history of mid LAD stenting using Alpine 3.0 18 mm done in June 2017, mild to moderate disease in the proximal portion of the LAD, moderate disease at the distal circumflex artery. Continue to monitor History of diabetes mellitus, diabetic neuropathy, followed and managed by primary care physician History of hyperlipidemia with intolerance to statin. Spinal stenosis, status post C3-7 ACDF with C5 corpectomy done by Dr. Hardwick History of carotid stenosis, last ultrasound was done in July 2017. Continue to monitor History of respiratory failure secondary to pneumonia. Improved. Continue to monitor Clinical Quality Measures DVT/VTE Risk/Contraindication: Risk Factor Score Per Nursin RFS Level Per Nursing on Admit: 4+=Very High KAREN YANG MD Mar 02, 2018 08:51
[2018-03-02] MEDS: ASPIRIN E.C. 81 MG (ECOTRIN) TAB PO SCH (08:52)
--- NOTE | 2018-03-02 09:08 | Physical Therapy Daily Note ---
PT Daily Note-Current Subjective pt in bed pre tx, agrees to PT, no pain to report Appearance pt in bed post tx w/ phone, call light, tray, all needs met Mental Status Patient Orientation: Normal For Age Transfers Functional [place] Measure 0=Not Assessed/NA 4=Minimal Assistance 1=Total Assistance 5=Supervision or Setup 2=Maximal Assistance 6=Modified [place] 3=Moderate Assistance 7=Complete IndependenceIRFPAI Quality Coding Scale 6 Independent with activity with or without an assistive device 5 Patient requires set up or clean up by helper. Patient completes activity by themselves 4 Supervision or touching assist (CGA). [place] provide cues , steadying assist 3 The helper provides less than half the effort to complete the activity 2 The helper provides more than half the effort to complete the activity 1 Dependent. The helper does all the effort to complete an activity 7 Patient refused to complete or attempt activity 9 The patient did not perform the activity before the current illness or injury 88 Not attempted due to Medical conditions or safety concerns Transfers (B, C, W/C) (FIM): 5 Scootin Rollin Supine to/from Sit: 6 Sit to/from Stand: 5 SBA for all transfers, occasionally Cristiane during sit->stand from low surfaces Weight Bearing Right Lower Extremity: Right Full Weight Bearing Left Lower Extremity: Left Full Weight Bearing Gait Training Does the Patient Walk?: Yes Gait (FIM): 5 Distance: 150',100' Gait Level of Assist: 5 Gait Persons Needed: 1 Gait Assistive Device: FWW pt ambulates to/from gym w/ SBA using FWW, walker raised one notch to decrease flexed posture, pt demonstrates excessive knee extension bilaterally due to weakness Exercises Standing: Step-ups Standing Reps: 15 step ups onto pink step in parallel bars x15 NuStep Minutes: 25 NuStep Workload: 6 Treatments gait training, endurance training, functional strengthening, patient was toileted once for a BM Assessment Current Status: Fair Progress improving endurance and transfers, pt toileted for BM during tx, pt struggles w/ motivation and often refuses specific exercises, along w/ negotiating sets/reps for exercises he is willing to do PT Short Term Goals Short Term Goals Time Frame: Mar 03, 2018 Gait (FIM): 2 Gait Distance Comment: 100' Gait Level of Assist: 4 Gait Assistive Device: FWW Wheelchair Distance: 150'x3 PT Rn Transport Goals Penitentiary Goals PT Penitentiary Goals Time Frame: Mar 17, 2018 Transfers (B,C,W/C) (FIM): 5 Sit to Lying (QC): 4 Lying-Sitting on Side/Bed(QC): 4 Sit to Stand (QC): 4 Rollin Roll Left to Right (QC): 4 Chair/Oju-tx-Zoiti Xfer(QC): 4 Car Transfer (QC): 4 Gait (FIM): 5 Distance: 150' Walk 10 feet (QC): 4 Walk 10ft-Uneven Surface(QC): 4 Walk 50ft with 2 Turns (QC): 4 Walk 150 ft (QC): 4 Gait Level of Assist: 5 Gait Assistive Device: FWW Stairs (FIM): 2 # of Steps: 4 1 Step (curb) (QC): 4 4 Steps (QC): 4 Stairs Level Of Assist: 4 PT Plan Problem List Problem List: Activity Tolerance, Functional Strength, Safety, Balance, Gait, Transfer, Bed Mobility Treatment/Plan Treatment Plan: Continue Plan of Care Treatment Plan: Bed Mobility, Education, Functional Activity [place], Functional Strength, Group Therapy, Gait, Safety, Therapeutic Exercise, Transfers Treatment Duration: Mar 17, 2018 Frequency: At least 5 of 7 days/Wk (IRF) Estimated Hrs Per Day: 1.5 hours per day Patient and/or Family Agrees t: Yes Safety Risks/Education Patient Education: Gait Training, Transfer Techniques, Correct Positioning, Disease Process, Safety Issues Teaching Recipient: Patient Teaching Methods: Demonstration, Discussion Response to Teaching: Reinforcement Needed Time/GCodes Time In: 0800 Time Out: 0900 Total Billed Treatment Time: 60 Total Billed Treatment 1 visit GT 15' EX 35' FA 10' MARCELL BADILLO PT Mar 02, 2018 09:08
[2018-03-02] MEDS ORDERED: PANTOPRAZOLE 40 MG (PROTONIX) TAB PO NR (09:11)
[2018-03-02] MEDS: MENTHOL/ZINC OXIDE (CALMOSEPTINE) 113 GM TUBE TOP SCH ×2 (09:21→20:25)
--- NOTE | 2018-03-02 13:50 | Physical Therapy Daily Note ---
PT Daily Note-Current Subjective pt in bed pre tx, agrees to PT, no pain to report Appearance pt in bed post tx, w/ phone, call light, tray, all needs met Mental Status Patient Orientation: Normal For Age Transfers Functional [place] Measure 0=Not Assessed/NA 4=Minimal Assistance 1=Total Assistance 5=Supervision or Setup 2=Maximal Assistance 6=Modified [place] 3=Moderate Assistance 7=Complete IndependenceIRFPAI Quality Coding Scale 6 Independent with activity with or without an assistive device 5 Patient requires set up or clean up by helper. Patient completes activity by themselves 4 Supervision or touching assist (CGA). [place] provide cues , steadying assist 3 The helper provides less than half the effort to complete the activity 2 The helper provides more than half the effort to complete the activity 1 Dependent. The helper does all the effort to complete an activity 7 Patient refused to complete or attempt activity 9 The patient did not perform the activity before the current illness or injury 88 Not attempted due to Medical conditions or safety concerns Transfers (B, C, W/C) (FIM): 5 Rollin Supine to/from Sit: 3 Sit to/from Stand: 4 supine->sit SBA, sit->supine modA w/ getting both legs into bed due to fatigue, sit<->stand SBA, minAx2 from lower surfaces due to fatigue Weight Bearing Right Lower Extremity: Right Full Weight Bearing Left Lower Extremity: Left Full Weight Bearing Gait Training Does the Patient Walk?: Yes Gait (FIM): 3 Distance: 80x2,40x2 Gait Level of Assist: 4 Gait Persons Needed: 1 Gait Assistive Device: FWW pt ambulates to/from elevator and outdoors 40'x2 over incline and uneven surface (sidewalk) w/ FWW and SBA, gait is slow and pt needs occasional standing rest breaks, but no LOB Treatments gait training Assessment Current Status: Fair Progress improving gait distance, pt needs a lot of convincing to do any activity and shows little motivation to perform exercises PT Short Term Goals Short Term Goals Time Frame: Mar 03, 2018 Gait (FIM): 2 Gait Distance Comment: 100' Gait Level of Assist: 4 Gait Assistive Device: FWW Wheelchair Distance: 150'x3 PT [facility] Goals Chemical Engineering Teacher Goals PT [facility] Goals Time Frame: Mar 17, 2018 Transfers (B,C,W/C) (FIM): 5 Sit to Lying (QC): 4 Lying-Sitting on Side/Bed(QC): 4 Sit to Stand (QC): 4 Rollin Roll Left to Right (QC): 4 Chair/Bfg-bc-Cscvg Xfer(QC): 4 Car Transfer (QC): 4 Gait (FIM): 5 Distance: 150' Walk 10 feet (QC): 4 Walk 10ft-Uneven Surface(QC): 4 Walk 50ft with 2 Turns (QC): 4 Walk 150 ft (QC): 4 Gait Level of Assist: 5 Gait Assistive Device: FWW Stairs (FIM): 2 # of Steps: 4 1 Step (curb) (QC): 4 4 Steps (QC): 4 Stairs Level Of Assist: 4 PT Plan Problem List Problem List: Activity Tolerance, Functional Strength, Safety, Balance, Gait, Transfer, Bed Mobility Treatment/Plan Treatment Plan: Continue Plan of Care Treatment Plan: Bed Mobility, Education, Functional Activity [place], Functional Strength, Group Therapy, Gait, Safety, Therapeutic Exercise, Transfers Treatment Duration: Mar 17, 2018 Frequency: At least 5 of 7 days/Wk (IRF) Estimated Hrs Per Day: 1.5 hours per day Patient and/or Family Agrees t: Yes Safety Risks/Education Patient Education: Gait Training, Transfer Techniques, Correct Positioning, W/ C Management, Safety Issues Teaching Recipient: Patient Teaching Methods: Demonstration, Discussion Response to Teaching: Reinforcement Needed Time/GCodes Time In: 1300 Time Out: 1330 Total Billed Treatment Time: 30 Total Billed Treatment 1 visit GT 30' TRE VARGAS PT Mar 02, 2018 13:50
--- NOTE | 2018-03-02 14:08 | Occupational Ther Daily Note ---
OT Current Status-Daily Note Subjective No pain reported. Appearance Pt. is in bed. Agrees to work with OT. Mental Status/Objective Patient Orientation: Person, Place, Time Functional [place] Measure 0=Not Assessed/NA 4=Minimal Assistance 1=Total Assistance 5=Supervision or Setup 2=Maximal Assistance 6=Modified [place] 3=Moderate Assistance 7=Complete [place] ADL-Treatment Functional [place] Measure 0=Not Assessed/NA 4=Minimal Assistance 1=Total Assistance 5=Supervision or Setup 2=Maximal Assistance 6=Modified [place] 3=Moderate Assistance 7=Complete IndependenceIRFPAI Quality Coding Scale 6 Independent with activity with or without an assistive device 5 Patient requires set up or clean up by helper. Patient completes activity by themselves 4 Supervision or touching assist (CGA). [place] provide cues , steadying assist 3 The helper provides less than half the effort to complete the activity 2 The helper provides more than half the effort to complete the activity 1 Dependent. The helper does all the effort to complete an activity 7 Patient refused to complete or attempt activity 9 The patient did not perform the activity before the current illness or injury 88 Not attempted due to Medical conditions or safety concerns Grooming (FIM): 5 (SBA at sink in stance to brush teeth and hair.) Oral Hygiene (QC): 4 Bathing (FIM): 4 (CGA in stance.) Shower/Bathe Self (QC): 4 Upper Body (FIM): 4 (Pt. requires assistance to pull shirt down in back after donning over head.) Upper Body Dressing (QC): 4 Lower Body Dressing (FIM): 3 (Due to positioning in shower, and dampness, pt. had increased difficulty with LE dressing, even with dressing stick. Pt. required max assist to don socks, and mod assist to don underwear and pants.) Lower Body Dressing (QC): 3 On/Off Footwear (QC): 2 Transfers (B, C, W/C) (FIM): 4 (Min assist sit-stand and min assist to get LE into bed.) Shower Transfer(FIM): 4 Other Treatment Before showering, pt. requests to go outside for fresh air. Pt. states that the warmth "helps his joints." Pt. practiced self propulsion at times in wheelchair through doorways. Pt. reports that this fatigues him easily. Pt. also practices pushing elevator button, getting on elevator, etc. Sat outside and pt. reports he is eager to go home, but wants to gain strength first. Went back to room and showered. After showering task, pt. transferred back to bed. All needs met. Education OT Patient Education: Correct positioning, Energy conservation, Modified ADL techniques, Progress toward Goal/Update tx plan, Purpose of tx/functional activities, Reviewed precautions, Rehab process, Transfer techniques Teaching Recipient: Patient Teaching Methods: Demonstration, Discussion Response to Teaching: Verbalize Understanding, Return Demonstration OT Short Term Goals Short Term Goals Time Frame: Mar 03, 2018 Bathing(FIM): 4 Lower Body Dressing(FIM): 4 Toileting(FIM): 4 Toilet/Commode Transfer(FIM): 4 Additional Short Term Goals: 2-Verbalize Understanding, 3-ImproveStrength/[place] 1=Demonstrate adherence to instructed precautions during ADL tasks. 2=Patient will verbalize/demonstrate understanding of assistive devices/ modifications for ADL. 3=Patient will improve strength/tolerance for activity to enable patient to perform ADL's. OT Security Auditor Goals Intermediate Goals Time Frame: Mar 17, 2018 Eating (FIM): 7 Eating (QC): 6 Groomin Oral Hygiene (QC): 6 Bathing(FIM): 5 Shower/Bathe Self (QC): 5 Upper Body Dressing(FIM): 6 Upper Body Dressing (QC): 6 Lower Body Dressing(FIM): 5 Lower Body Dressing (QC): 5 On/Off Footwear (QC): 5 Toileting(FIM): 5 Toileting Hygiene (QC): 5 Toilet/Commode Transfer(FIM): 5 Toilet/Commode Transfer (QC): 5 Shower Transfer(FIM): 5 Additional Goals: 1-Demonstrate ADL Tasks, 2-Verbalize Understanding, 3- ImproveStrength/[place] 1=Demonstrate adherence to instructed precautions during ADL tasks. 2=Patient will verbalize/demonstrate understanding of assistive devices/ modifications for ADL. 3=Patient will improve strength/tolerance for activity to enable patient to perform ADL's. OT Education/Plan Problem List/Assessment Assessment: Decreased Activ Tolerance, Decreased UE Strength, Dependent Transfers, Impaired Bed Mobility, Impaired Funct Balance, Impaired I ADL's, Impaired Self-Care Skills, Restricted Funct UE ROM Discharge Recommendations Plan/Recommendations: Continue POC Therapy D/C Recommendations: Home w/ Family Support, Occupational Therapy Home Care Treatment Plan/Plan of Care Treatment,Training & Education: Yes Patient would benefit from OT for education, treatment and training to promote independence in ADL's, mobility, safety and/or upper extremity function for ADL' s. Plan of Care: ADL Retraining, Functional Mobility, Group Exercise/Act as Ind, UE Funct Exercise/Act Treatment Duration: Mar 17, 2018 Frequency: Modified Program (IRF) (25/12) Estimated Hrs Per Day: 1.5 hours per day Agreement: Yes Rehab Potential: Good Time/GCodes Start Time: 09:30 Stop Time: 11:05 Total Time Billed (hr/min): 95 Billed Treatment Time 1, FA x 30minutes, ADL x 65minutes RICHARD LING OT Mar 02, 2018 14:08
[2018-03-02] MEDS ORDERED: NS (IVPB) 250 ML ONE (14:47)
[2018-03-02] MEDS: ACETAMINOPHEN 325 MG TABLET PO PRN (15:13)
[2018-03-02] MEDS: ROSUVASTATIN 5 MG (CRESTOR) TABLET PO SCH (20:22)
[2018-03-03] MEDS: MELATONIN 3 MG TABLET PO PRN (02:17)
[2018-03-03 05:01] VITALS: BP 150/87
[2018-03-03] MEDS: PANTOPRAZOLE 40 MG (PROTONIX) TAB PO SCH (06:08)
[2018-03-03] MEDS: FERROUS SULF 325 MG (IRON) TAB PO SCH ×2 (06:08→17:24)
[2018-03-03] MEDS: GLIMEPIRIDE 4 MG (AMARYL) TAB PO SCH (06:08)
[2018-03-03] MEDS: inSUlin ASPART (NovoLOG) 1 UNIT/0.01 ML (CHARGE PER UNIT) SC SCH ×4 (06:13→21:58)
[2018-03-03 07:02] LABS: HEMOGLOBIN 7.7 G/DL (13.3-17.7); RED BLOOD COUNT 2.75 10^6/uL (4.35-5.85); RED CELL DISTRIBUTION WIDTH 14.4 % (10.0-14.5); WHITE BLOOD COUNT 5.9 10^3/uL (4.3-11.0)
[2018-03-03 07:04] LABS: CALCIUM 8.8 MG/DL (8.5-10.1); CREATININE SERUM 1.69 MG/DL (0.60-1.30); POTASSIUM 4.7 MMOL/L (3.6-5.0)
[2018-03-03] MEDS: meTOprolol TARTRATE 50 MG (LOPRESSOR) TAB PO SCH ×2 (07:51→20:28)
[2018-03-03] MEDS: LOSARTAN 100 MG (COZAAR) TABLET PO SCH (07:51)
[2018-03-03] MEDS: ASPIRIN E.C. 81 MG (ECOTRIN) TAB PO SCH (07:51)
[2018-03-03] MEDS: GABAPENTIN 600 MG (NEURONTIN) TAB PO SCH ×3 (07:52→20:28)
[2018-03-03] MEDS: hydrALAZINE (APRESOLINE) 25 MG TAB PO SCH ×3 (07:52→20:28)
[2018-03-03] MEDS: LORATADINE (CLARITIN) 10 MG TAB PO SCH (07:52)
[2018-03-03] MEDS: amLODIPine 10 MG (NORVASC) TAB PO SCH (07:52)
[2018-03-03] MEDS: FUROSEMIDE 40 MG (LASIX) TAB PO SCH (07:53)
[2018-03-03] MEDS: ONDANSETRON 4 MG (ZOFRAN) ORAL DISSOLVE TAB PO PRN (07:54)
[2018-03-03] MEDS: MENTHOL/ZINC OXIDE (CALMOSEPTINE) 113 GM TUBE TOP SCH ×2 (07:56→21:25)
--- NOTE | 2018-03-03 08:00 | PM & R (SOAP) Progress Note ---
Subjective This was a face to face visit with the patient. Date Seen by Provider: Mar 03, 2018 Time Seen by Provider: 07:50 Subjective/Events-last exam Patient was seen in his room this AM Tolerated Blood transfusion well HGB now > 7.Patient SBA for transfers. Date Identified: Mar 03, 2018 Time Identified: 07:30 Medication Intervention: Anemia improving s/p transfusion Objective Physician Exam Last Set of Vital Signs Vital Signs Date Time Temp Pulse Resp B/P (MAP) Pulse Ox O2 Delivery O2 Flow Rate FiO2 03/03/18 05:01 98.7 84 20 150/87 (108) 96 Room Air Capillary Refill : I&O Intake and Output 03/03/18 00:00 Intake Total 2240 ml Output Total 1200 ml Balance 1040 ml Intake Oral 2160 ml Other 80 ml Output Urine Total 1200 ml # Voids 4 # Bowel Movements 4 General: Alert, Oriented X3, Cooperative, No Acute Distress HEENT: Atraumatic, PERRLA, EOMI, Mucous Memb Moist/[place] Neck: Supple, No JVD Lungs: Clear to Auscultation Heart: Regular Rate, Normal S1, Normal S2 Abdomen: Normal Bowel Sounds, Soft, No Tenderness Extremities: No Clubbing, Normal Pulses, Other (+ 2-3 edema BLE) Skin: No Rashes Neuro: Normal Speech, Strength at 5/5 X4 Ext, Other (generalized weakness) Psych/Mental Status: Mental Status NL Results Lab Data Laboratory Tests 02/28/18 10:53: Glucometer 189H 02/28/18 16:09: Glucometer 234H 02/28/18 20:13: Glucometer 200H 03/01/18 06:17: Glucometer 155H 03/01/18 06:45: White Blood Count 3.6L, Red Blood Count 2.60L, Hemoglobin 7.4L, Hematocrit 24L, Mean Corpuscular Volume 91, Mean Corpuscular Hemoglobin 28, Mean Corpuscular Hemoglobin Concent 31L, Red Cell Distribution Width 13.7, Platelet Count 131, Mean Platelet Volume 9.8, Sodium Level 141, Potassium Level 4.5, Chloride Level 107, Carbon Dioxide Level 25, Anion Gap 9, Blood Urea Nitrogen 40H, Creatinine 1.94H, Estimat Glomerular Filtration Rate 37, BUN/Creatinine Ratio 21, Glucose Level 149H, Calcium Level 8.4L 03/01/18 11:22: Glucometer 199H 03/01/18 15:36: Glucometer 245H 03/01/18 20:10: Glucometer 202H 03/02/18 05:45: White Blood Count 4.4, Red Blood Count 2.29L, Hemoglobin 6.7*L, Hematocrit 21L, Mean Corpuscular Volume 91, Mean Corpuscular Hemoglobin 29, Mean Corpuscular Hemoglobin Concent 32, Red Cell Distribution Width 13.5, Platelet Count 120L, Mean Platelet Volume 10.0, Sodium Level 141, Potassium Level 4.6, Chloride Level 109H, Carbon Dioxide Level 24, Anion Gap 8, Blood Urea Nitrogen 45H, Creatinine 1.85H, Estimat Glomerular Filtration Rate 39, BUN/Creatinine Ratio 24 , Glucose Level 150H, Calcium Level 8.5 03/02/18 07:55: Stool Occult Blood Immunoassay NEGATIVE 03/02/18 11:06: Glucometer 183H 03/02/18 16:00: Glucometer 214H 03/02/18 20:49: Glucometer 229H 03/03/18 06:44: White Blood Count 5.9, Red Blood Count 2.75L, Hemoglobin 7.7L, Hematocrit 24L, Mean Corpuscular Volume 88, Mean Corpuscular Hemoglobin 28, Mean Corpuscular Hemoglobin Concent 32, Red Cell Distribution Width 14.4, Platelet Count 147, Mean Platelet Volume 10.0, Sodium Level 142, Potassium Level 4.7, Chloride Level 110H, Carbon Dioxide Level 22, Anion Gap 10, Blood Urea Nitrogen 44H, Creatinine 1.69H, Estimat Glomerular Filtration Rate 43, BUN/Creatinine Ratio 26 , Glucose Level 162H, Calcium Level 8.8 Assessment/Plan Assessment and Plan recent HX of C spine surgery for DDD with myelopathy improving Postop anemia improving s/p transfusion General debil secondary to postop anemia associated with Coag Neg staph bacteremia improving s/p course of triple antibiotic Pyelonephritis By CT treated HCAP treated DM 2 controlled HTN controlled CHF with peripheral edeaM IMPROVED WITH DIUResis Hypoalbuminem,ia HLP GABRIELLA on Cpap Obesity Plan Continue PT/OT [facility] next week Probable discharge by end of next week F/U with PCP DR peters prn Co-Morbidities that are continuing to impact the rehab process: (include details ) SALEEM AMATO MD Mar 03, 2018 08:00
--- NOTE | 2018-03-03 08:12 | Progress Note (SOAP) ---
Subjective Time Seen by a Provider: 08:09 Subjective/Events-last exam States feeling well today. Used CPAP overnight. Anemia, recieved a unit of blood yesterday, Hgb from 6.7 to 7.7 today. Renal function continues to improve. Patient has lost 4lbs since yesterday. Occult blood negative. Objective Exam Vital Signs Date Time Temp Pulse Resp B/P (MAP) Pulse Ox O2 Delivery O2 Flow Rate FiO2 03/03/18 05:01 98.7 84 20 150/87 (108) 96 Room Air 03/02/18 20:10 Room Air 03/02/18 18:50 136/78 (97) 03/02/18 18:40 159/82 (107) 03/02/18 18:30 98.6 92 20 171/97 98 Room Air 03/02/18 16:17 85 20 136/78 (97) 03/02/18 16:17 98.8 85 20 136/78 96 Room Air 03/02/18 16:13 98.9 85 18 149/80 (103) 96 Room Air 03/02/18 16:13 98.9 85 18 149/80 96 Room Air 03/02/18 15:32 98.9 82 18 136/69 97 Room Air 03/02/18 15:27 99.8 82 16 136/69 (91) 92 Room Air 03/02/18 09:24 99.0 87 20 135/75 (95) 96 Room Air 03/02/18 08:45 Room Air I & O 03/03/18 07:00 Intake Total 1960 ml Output Total 2800 ml Balance -840 ml Capillary Refill : General Appearance: No Apparent Distress, WD/WN Respiratory: Chest Non Tender, Lungs Clear, Normal Breath Sounds, No Accessory Muscle Use, No Respiratory Distress Cardiovascular: Regular Rate, Rhythm, No Murmur Gastrointestinal: non tender, soft Neurologic/Psychiatric: Alert Skin: Normal Color, Warm/Dry Results Lab Laboratory Tests 03/03/18 06:44 Laboratory Tests 03/02/18 11:06: Glucometer 183H 03/02/18 16:00: Glucometer 214H 03/02/18 20:49: Glucometer 229H 03/03/18 06:44: White Blood Count 5.9, Red Blood Count 2.75L, Hemoglobin 7.7L, Hematocrit 24L, Mean Corpuscular Volume 88, Mean Corpuscular Hemoglobin 28, Mean Corpuscular Hemoglobin Concent 32, Red Cell Distribution Width 14.4, Platelet Count 147, Mean Platelet Volume 10.0, Sodium Level 142, Potassium Level 4.7, Chloride Level 110H, Carbon Dioxide Level 22, Anion Gap 10, Blood Urea Nitrogen 44H, Creatinine 1.69H, Estimat Glomerular Filtration Rate 43, BUN/Creatinine Ratio 26 , Glucose Level 162H, Calcium Level 8.8 Assessment/Plan Assessment/Plan Assess & Plan/Chief Complaint Diabetes. Coagulase negative bacteremia. Recent cervical surgery. Myopathy. Weakness. Renal insufficiency. . 03/01/18. Diabetes doing better. Coagulase negative bacteremia. Recent cervical surgery. Myopathy. Weakness. Renal insufficiency.. . To 03/02/18. Weakness. Renal insufficiency. Coagulase negative bacteremia. Hemoglobin 6.7. Patient to get 1 unit of packed red blood cells today 03/03/18: Weakness. Renal insufficiency. Anemia, Hemoglobin 7.7 DM. GABRIELLA. Clinical Quality Measures DVT/VTE Risk/Contraindication: Risk Factor Score Per Nursin RFS Level Per Nursing on Admit: 4+=Very High MARIIA SIM DO Mar 03, 2018 08:12
--- NOTE | 2018-03-03 09:20 | Cardiology Progress Note ---
Subjective Date Seen by Provider: Mar 03, 2018 Time Seen by Provider: 09:19 Subjective/Events-last exam Patient is laying down in bed, feeling well. Still complaining of fatigue and loss of energy Review of Systems General: No Chills, No Night Sweats; Fatigue, Malaise; No Appetite, No Other HEENT: No Head Aches, No Visual Changes, No Eye Pain, No Ear Pain, No Dysphasia , No Sinus Congestion, No Post Nasal Drip, No Sore Throat, No Other Pulmonary: Dyspnea; No Cough, No Pleuritic Chest Pain, No Other Cardiovascular: Edema; No: Chest Pain, Palpitations, Orthopnea, Paroxysmal Noc. Dyspnea, Lt Headedness, Other Objective-Cardiology Exam Last Set of Vital Signs Vital Signs 03/03/18 05:01 Temp 98.7 Pulse 84 Resp 20 B/P (MAP) 150/87 (108) Pulse Ox 96 O2 Delivery Room Air Capillary Refill : I&O Intake and Output 03/03/18 00:00 Intake Total 2240 ml Output Total 1200 ml Balance 1040 ml Intake Oral 2160 ml Other 80 ml Output Urine Total 1200 ml # Voids 4 # Bowel Movements 4 General: Alert, Oriented X3, Cooperative, No Acute Distress HEENT: Atraumatic, PERRLA, EOMI, Mucous Memb Moist/[place] Neck: Other (Neck brace) Lungs: Clear to Auscultation Heart: Regular Rate, Normal S1, Normal S2 Abdomen: Normal Bowel Sounds, Soft, No Tenderness Extremities: No Clubbing, Normal Pulses, Other (+ 2-3 edema BLE) Skin: No Rashes Neuro: Normal Speech, Strength at 5/5 X4 Ext, Other (generalized weakness) Psych/Mental Status: Mental Status NL Results Lab Laboratory Tests 03/03/18 06:44 A/P-Cardiology Admission Diagnosis Acute renal failure Peripheral edema Coronary artery disease Hypertension Assessment/Plan Generalized weakness and loss of energy secondary to complicated hospital stay after neck surgery, had pneumonia, bacteremia, received antibiotic and reporting improvement. Peripheral edema, +2-3. Continue on Lasix 40 mg once daily and I will give additional dose of Lasix IV once today and monitor Anemia status post transfusion, slightly better. Continue to monitor. Started on Protonix. Echocardiogram was done at [facility] on February 14, 2018 showing moderate LVH, moderately dilated left atrium, diastolic dysfunction, estimated PA pressure 40 mmHg, ejection fraction 50-55 percent. Patient has refused to take Lovenox due to bleeding, using SCD. Acute on chronic renal insufficiency. Slightly better renal function, continue to monitor his History of coronary artery disease, history of mid LAD stenting using Alpine 3.0 18 mm done in June 2017, mild to moderate disease in the proximal portion of the LAD, moderate disease at the distal circumflex artery. Continue to monitor History of diabetes mellitus, diabetic neuropathy, followed and managed by primary care physician History of hyperlipidemia with intolerance to statin. Spinal stenosis, status post C3-7 ACDF with C5 corpectomy done by Dr. Hardwick History of carotid stenosis, last ultrasound was done in July 2017. Continue to monitor History of respiratory failure secondary to pneumonia. Improved. Continue to monitor Clinical Quality Measures DVT/VTE Risk/Contraindication: Risk Factor Score Per Nursin RFS Level Per Nursing on Admit: 4+=Very High KAREN YANG MD Mar 03, 2018 09:20
[2018-03-03] MEDS ORDERED: FUROSEMIDE 40 MG/4 ML INJ (LASIX) IVP NR (09:30)
[2018-03-03] MEDS: ACETAMINOPHEN 325 MG TABLET PO PRN (10:38)
--- NOTE | 2018-03-03 11:35 | Physical Therapy Daily Note ---
PT Daily Note-Current Subjective pt sitting at EOB pre tx, agrees to PT, pain 3/10 in neck and L shoulder area, no chest tightness or SOB, pt toileted for BM Appearance Pt sitting at EOB post tx, awaiting OT, w/ phone, call light, and tray, all needs met Mental Status Patient Orientation: Normal For Age cervical collar Transfers Functional [place] Measure 0=Not Assessed/NA 4=Minimal Assistance 1=Total Assistance 5=Supervision or Setup 2=Maximal Assistance 6=Modified [place] 3=Moderate Assistance 7=Complete IndependenceIRFPAI Quality Coding Scale 6 Independent with activity with or without an assistive device 5 Patient requires set up or clean up by helper. Patient completes activity by themselves 4 Supervision or touching assist (CGA). [place] provide cues , steadying assist 3 The helper provides less than half the effort to complete the activity 2 The helper provides more than half the effort to complete the activity 1 Dependent. The helper does all the effort to complete an activity 7 Patient refused to complete or attempt activity 9 The patient did not perform the activity before the current illness or injury 88 Not attempted due to Medical conditions or safety concerns Transfers (B, C, W/C) (FIM): 5 Sit to/from Stand: 5 sit<->stand SBA w/ occasional Cristiane from lower surfaces Weight Bearing Right Lower Extremity: Right Full Weight Bearing Left Lower Extremity: Left Full Weight Bearing Gait Training Does the Patient Walk?: Yes Gait (FIM): 5 Distance: 150',100' Gait Level of Assist: 5 Gait Persons Needed: 1 Gait Assistive Device: FWW pt ambulates to/from gym w/ SBA and FWW, pt demonstrates excessive bilat knee extension due to weakness Exercises Seated Therapy Exercises: Ankle pumps, Long arc quads, Hip flexion (10) Seated Reps: 40 Standing: Sit to Stand, Side steps (2 laps) Standing Reps: 10 sit<->stand w/ airex pad in chair NuStep Minutes: 20 NuStep Workload: 7 Treatments endurance training, gait training, functional strengthening, toileting for BM Assessment Current Status: Fair Progress increased endurance and gait distance, pt requires continued motivation to perform exercises PT Short Term Goals Short Term Goals Time Frame: Mar 03, 2018 Gait (FIM): 2 Gait Distance Comment: 100' Gait Level of Assist: 4 Gait Assistive Device: FWW Wheelchair Distance: 150'x3 PT Mcfp Goals Mcfp Goals PT First Officer And Flight Instructor Goals Time Frame: Mar 17, 2018 Transfers (B,C,W/C) (FIM): 5 Sit to Lying (QC): 4 Lying-Sitting on Side/Bed(QC): 4 Sit to Stand (QC): 4 Rollin Roll Left to Right (QC): 4 Chair/Hfy-xp-Zahfw Xfer(QC): 4 Car Transfer (QC): 4 Gait (FIM): 5 Distance: 150' Walk 10 feet (QC): 4 Walk 10ft-Uneven Surface(QC): 4 Walk 50ft with 2 Turns (QC): 4 Walk 150 ft (QC): 4 Gait Level of Assist: 5 Gait Assistive Device: FWW Stairs (FIM): 2 # of Steps: 4 1 Step (curb) (QC): 4 4 Steps (QC): 4 Stairs Level Of Assist: 4 PT Plan Problem List Problem List: Activity Tolerance, Functional Strength, Safety, Balance, Gait, Transfer, Bed Mobility Treatment/Plan Treatment Plan: Continue Plan of Care Treatment Plan: Bed Mobility, Education, Functional Activity [place], Functional Strength, Group Therapy, Gait, Safety, Therapeutic Exercise, Transfers Treatment Duration: Mar 17, 2018 Frequency: At least 5 of 7 days/Wk (IRF) Estimated Hrs Per Day: 1.5 hours per day Patient and/or Family Agrees t: Yes Safety Risks/Education Patient Education: Gait Training, Transfer Techniques, Correct Positioning, Safety Issues Teaching Recipient: Patient Teaching Methods: Demonstration, Discussion Response to Teaching: Reinforcement Needed Time/GCodes Time In: 1030 Time Out: 1130 Total Billed Treatment Time: 60 Total Billed Treatment 1 visit GT 15' EX 35' FA 10' MARCELL BADILLO PT Mar 03, 2018 11:35
--- NOTE | 2018-03-03 13:12 | Occupational Ther Daily Note ---
OT Current Status-Daily Note Subjective Pt in bed, agrees to treatment. Mental Status/Objective Functional [place] Measure 0=Not Assessed/NA 4=Minimal Assistance 1=Total Assistance 5=Supervision or Setup 2=Maximal Assistance 6=Modified [place] 3=Moderate Assistance 7=Complete [place] ADL-Treatment Supine to sit with supervision. Pt declined bathing and grooming today. Sit to stand from EOB with supervision. Gait to restroom with FWW. Transfer to [facility] over toilet with SBA. Pt able to complete toileting hygiene and clothing management with SBA. Pt sat EOB to complete lower body dressing. Pt donned pants with minimal assistance. Changed shirt with SBA. Pt doffed socks with SBA using dressing stick. Required assist to don socks. Gait to door with FWW. Transferred to w/c with SBA. Functional [place] Measure 0=Not Assessed/NA 4=Minimal Assistance 1=Total Assistance 5=Supervision or Setup 2=Maximal Assistance 6=Modified [place] 3=Moderate Assistance 7=Complete IndependenceIRFPAI Quality Coding Scale 6 Independent with activity with or without an assistive device 5 Patient requires set up or clean up by helper. Patient completes activity by themselves 4 Supervision or touching assist (CGA). [place] provide cues , steadying assist 3 The helper provides less than half the effort to complete the activity 2 The helper provides more than half the effort to complete the activity 1 Dependent. The helper does all the effort to complete an activity 7 Patient refused to complete or attempt activity 9 The patient did not perform the activity before the current illness or injury 88 Not attempted due to Medical conditions or safety concerns Upper Body (FIM): 5 Upper Body Dressing (QC): 4 Lower Body Dressing (FIM): 4 Lower Body Dressing (QC): 3 Toileting (FIM): 5 Toileting Hygiene (QC): 4 Toilet/Commode Transfer (FIM): 5 Toilet Transfer (QC): 4 Other Treatment Pt requests to go outside. Pt has difficulty propelling w/c secondary to decreased activity tolerance and strength. Pt required assist to maneuver w/c. Pt able to push buttons for elevator. While outside pt completed bilateral UE exercises to increase strength and activity tolerance needed for ADLs and transfers. Pt performed shoulder flexion, abduction, elbow flex/ext, wrist flex/ ext, forearm pronation/supination, and finger flexion/extension x15 reps. Pt required rest breaks between exercises. Increased time for exercises. Pt returned to room, required minimal assistance to stand from w/c. Transfer to EOB with SBA. Pt sitting EOB with needs met after session. OT Short Term Goals Short Term Goals Time Frame: Mar 03, 2018 Bathing(FIM): 4 Lower Body Dressing(FIM): 4 Toileting(FIM): 4 Toilet/Commode Transfer(FIM): 4 Additional Short Term Goals: 2-Verbalize Understanding, 3-ImproveStrength/[place] 1=Demonstrate adherence to instructed precautions during ADL tasks. 2=Patient will verbalize/demonstrate understanding of assistive devices/ modifications for ADL. 3=Patient will improve strength/tolerance for activity to enable patient to perform ADL's. OT Residential Goals Residential Goals Time Frame: Mar 17, 2018 Eating (FIM): 7 Eating (QC): 6 Groomin Oral Hygiene (QC): 6 Bathing(FIM): 5 Shower/Bathe Self (QC): 5 Upper Body Dressing(FIM): 6 Upper Body Dressing (QC): 6 Lower Body Dressing(FIM): 5 Lower Body Dressing (QC): 5 On/Off Footwear (QC): 5 Toileting(FIM): 5 Toileting Hygiene (QC): 5 Toilet/Commode Transfer(FIM): 5 Toilet/Commode Transfer (QC): 5 Shower Transfer(FIM): 5 Additional Goals: 1-Demonstrate ADL Tasks, 2-Verbalize Understanding, 3- ImproveStrength/[place] 1=Demonstrate adherence to instructed precautions during ADL tasks. 2=Patient will verbalize/demonstrate understanding of assistive devices/ modifications for ADL. 3=Patient will improve strength/tolerance for activity to enable patient to perform ADL's. OT Education/Plan Discharge Recommendations Plan/Recommendations: Continue POC Treatment Plan/Plan of Care Patient would benefit from OT for education, treatment and training to promote independence in ADL's, mobility, safety and/or upper extremity function for ADL' s. Plan of Care: ADL Retraining, Functional Mobility, Group Exercise/Act as Ind, UE Funct Exercise/Act Treatment Duration: Mar 17, 2018 Frequency: Modified Program (IRF) (25/12) Estimated Hrs Per Day: 1.5 hours per day Agreement: Yes Rehab Potential: Good Time/GCodes Start Time: 09:30 Stop Time: 10:30 Total Time Billed (hr/min): 60 Billed Treatment Time 1 visit, ADLx2(30minutes), EXx2(30minutes) BRENT COLLAZO OT Mar 03, 2018 13:12
--- NOTE | 2018-03-03 13:26 | Occupational Ther Daily Note ---
OT Current Status-Daily Note Subjective Pt sitting EOB, agrees to treatment. Mental Status/Objective Functional [place] Measure 0=Not Assessed/NA 4=Minimal Assistance 1=Total Assistance 5=Supervision or Setup 2=Maximal Assistance 6=Modified [place] 3=Moderate Assistance 7=Complete [place] ADL-Treatment Functional [place] Measure 0=Not Assessed/NA 4=Minimal Assistance 1=Total Assistance 5=Supervision or Setup 2=Maximal Assistance 6=Modified [place] 3=Moderate Assistance 7=Complete IndependenceIRFPAI Quality Coding Scale 6 Independent with activity with or without an assistive device 5 Patient requires set up or clean up by helper. Patient completes activity by themselves 4 Supervision or touching assist (CGA). [place] provide cues , steadying assist 3 The helper provides less than half the effort to complete the activity 2 The helper provides more than half the effort to complete the activity 1 Dependent. The helper does all the effort to complete an activity 7 Patient refused to complete or attempt activity 9 The patient did not perform the activity before the current illness or injury 88 Not attempted due to Medical conditions or safety concerns Other Treatment Sit to stand with supervision. Gait to therapy gym with FWW, slow pace. Pt completed grooved pegboard activity with bilateral hands to increase coordination/manipulation skills. Pt able to place and remove pegs with increased time. Graded clothespin activity with bilateral hands to increase dental professional /pinch strength. Pt able to complete task without assistance. Pt returned to room and requests to use restroom. Transfer to [facility] over toilet with SBA. Pt completed toileting and clothing management with SBA. Pt returned to EOB with SBA. Sit to supine with SBA. Pt resting in bed with needs met after session. OT Short Term Goals Short Term Goals Time Frame: Mar 03, 2018 Bathing(FIM): 4 Lower Body Dressing(FIM): 4 Toileting(FIM): 4 Toilet/Commode Transfer(FIM): 4 Additional Short Term Goals: 2-Verbalize Understanding, 3-ImproveStrength/Cody 1=Demonstrate adherence to instructed precautions during ADL tasks. 2=Patient will verbalize/demonstrate understanding of assistive devices/ modifications for ADL. 3=Patient will improve strength/tolerance for activity to enable patient to perform ADL's. OT Fpc Goals Fpc Goals Time Frame: Mar 17, 2018 Eating (FIM): 7 Eating (QC): 6 Groomin Oral Hygiene (QC): 6 Bathing(FIM): 5 Shower/Bathe Self (QC): 5 Upper Body Dressing(FIM): 6 Upper Body Dressing (QC): 6 Lower Body Dressing(FIM): 5 Lower Body Dressing (QC): 5 On/Off Footwear (QC): 5 Toileting(FIM): 5 Toileting Hygiene (QC): 5 Toilet/Commode Transfer(FIM): 5 Toilet/Commode Transfer (QC): 5 Shower Transfer(FIM): 5 Additional Goals: 1-Demonstrate ADL Tasks, 2-Verbalize Understanding, 3- ImproveStrength/Cody 1=Demonstrate adherence to instructed precautions during ADL tasks. 2=Patient will verbalize/demonstrate understanding of assistive devices/ modifications for ADL. 3=Patient will improve strength/tolerance for activity to enable patient to perform ADL's. OT Education/Plan Discharge Recommendations Plan/Recommendations: Continue POC Treatment Plan/Plan of Care Patient would benefit from OT for education, treatment and training to promote independence in ADL's, mobility, safety and/or upper extremity function for ADL' s. Plan of Care: ADL Retraining, Functional Mobility, Group Exercise/Act as Ind, UE Funct Exercise/Act Treatment Duration: Mar 17, 2018 Frequency: Modified Program (IRF) (25/12) Estimated Hrs Per Day: 1.5 hours per day Agreement: Yes Rehab Potential: Good Time/GCodes Start Time: 11:30 Stop Time: 12:00 Total Time Billed (hr/min): 30 Billed Treatment Time 1 visit, EXx2(30minutes) BRENT COLLAZO OT Mar 03, 2018 13:25
--- NOTE | 2018-03-03 14:44 | Physical Therapy Daily Note ---
PT Daily Note-Current Subjective pt in bed pre tx, agrees to PT, no pain to report, pt has been applying ice to both knees for last hour Appearance pt in bed post tx w/ phone, call light, tray, all needs met Mental Status Patient Orientation: Normal For Age Transfers Functional [place] Measure 0=Not Assessed/NA 4=Minimal Assistance 1=Total Assistance 5=Supervision or Setup 2=Maximal Assistance 6=Modified [place] 3=Moderate Assistance 7=Complete IndependenceIRFPAI Quality Coding Scale 6 Independent with activity with or without an assistive device 5 Patient requires set up or clean up by helper. Patient completes activity by themselves 4 Supervision or touching assist (CGA). [place] provide cues , steadying assist 3 The helper provides less than half the effort to complete the activity 2 The helper provides more than half the effort to complete the activity 1 Dependent. The helper does all the effort to complete an activity 7 Patient refused to complete or attempt activity 9 The patient did not perform the activity before the current illness or injury 88 Not attempted due to Medical conditions or safety concerns Transfers (B, C, W/C) (FIM): 5 Rollin Supine to/from Sit: 6 Sit to/from Stand: 5 SBA for all transfers, mod I for bed mobility Weight Bearing Right Lower Extremity: Right Full Weight Bearing Left Lower Extremity: Left Full Weight Bearing Gait Training Does the Patient Walk?: Yes Gait (FIM): 5 Distance: 150', 100' Gait Level of Assist: 5 Gait Persons Needed: 1 Gait Assistive Device: FWW pt ambulates to/from gym w/ SBA using FWW, pt shows excessive knee extension bilaterally due to weakness Exercises Seated Therapy Exercises: Long arc quads Seated Reps: [address] Ex=Flex, Abd, Ext Standing Reps: 20 cone toe taps in // bars, 4x4 cones each leg Treatments gait training, functional strengthening, LE coordination Assessment Current Status: Fair Progress improved activity tolerance and standing balance PT Short Term Goals Short Term Goals Time Frame: Mar 03, 2018 Gait (FIM): 2 Gait Distance Comment: 100' Gait Level of Assist: 4 Gait Assistive Device: FWW Wheelchair Distance: 150'x3 PT Snf Goals Snf Goals PT Snf Goals Time Frame: Mar 17, 2018 Transfers (B,C,W/C) (FIM): 5 Sit to Lying (QC): 4 Lying-Sitting on Side/Bed(QC): 4 Sit to Stand (QC): 4 Rollin Roll Left to Right (QC): 4 Chair/Gjy-pc-Afbej Xfer(QC): 4 Car Transfer (QC): 4 Gait (FIM): 5 Distance: 150' Walk 10 feet (QC): 4 Walk 10ft-Uneven Surface(QC): 4 Walk 50ft with 2 Turns (QC): 4 Walk 150 ft (QC): 4 Gait Level of Assist: 5 Gait Assistive Device: FWW Stairs (FIM): 2 # of Steps: 4 1 Step (curb) (QC): 4 4 Steps (QC): 4 Stairs Level Of Assist: 4 PT Plan Problem List Problem List: Activity Tolerance, Functional Strength, Safety, Balance, Gait, Transfer, Bed Mobility Treatment/Plan Treatment Plan: Continue Plan of Care Treatment Plan: Bed Mobility, Education, Functional Activity [place], Functional Strength, Group Therapy, Gait, Safety, Therapeutic Exercise, Transfers Treatment Duration: Mar 17, 2018 Frequency: At least 5 of 7 days/Wk (IRF) Estimated Hrs Per Day: 1.5 hours per day Patient and/or Family Agrees t: Yes Safety Risks/Education Patient Education: Gait Training, Transfer Techniques, Reviewed Use of Ice, Correct Positioning, Safety Issues Teaching Recipient: Patient Teaching Methods: Demonstration, Discussion Response to Teaching: Reinforcement Needed Time/GCodes Time In: 1330 Time Out: 1400 Total Billed Treatment Time: 30 Total Billed Treatment 1 visit GT 10' EX 20' MARCELL BADILLO PT Mar 03, 2018 14:44
[2018-03-03 17:30] VITALS: BP 160/79
[2018-03-03] MEDS: ROSUVASTATIN 5 MG (CRESTOR) TABLET PO SCH (20:27)
[2018-03-04] MEDS: PANTOPRAZOLE 40 MG (PROTONIX) TAB PO SCH (05:56)
[2018-03-04] MEDS: FERROUS SULF 325 MG (IRON) TAB PO SCH ×2 (05:56→16:17)
[2018-03-04] MEDS: GLIMEPIRIDE 4 MG (AMARYL) TAB PO SCH (05:56)
[2018-03-04 06:00] VITALS: BP 121/70
[2018-03-04] MEDS: inSUlin ASPART (NovoLOG) 1 UNIT/0.01 ML (CHARGE PER UNIT) SC SCH ×4 (06:00→23:33)
[2018-03-04 07:51] LABS: HEMOGLOBIN 7.9 G/DL (13.3-17.7); MEAN PLATELET VOLUME 10.4 FL (7.4-10.4); RED BLOOD COUNT 2.74 10^6/uL (4.35-5.85); RED CELL DISTRIBUTION WIDTH 14.5 % (10.0-14.5); WHITE BLOOD COUNT 6.7 10^3/uL (4.3-11.0)
[2018-03-04 08:08] LABS: CALCIUM 8.8 MG/DL (8.5-10.1); CREATININE SERUM 1.69 MG/DL (0.60-1.30); MAGNESIUM 2.1 MG/DL (1.8-2.4); POTASSIUM 4.6 MMOL/L (3.6-5.0)
[2018-03-04] MEDS: meTOprolol TARTRATE 50 MG (LOPRESSOR) TAB PO SCH ×2 (08:56→20:04)
[2018-03-04] MEDS: LOSARTAN 100 MG (COZAAR) TABLET PO SCH (08:56)
[2018-03-04] MEDS: amLODIPine 10 MG (NORVASC) TAB PO SCH (08:56)
[2018-03-04] MEDS: FUROSEMIDE 40 MG (LASIX) TAB PO SCH (08:56)
[2018-03-04] MEDS: ASPIRIN E.C. 81 MG (ECOTRIN) TAB PO SCH (08:58)
[2018-03-04] MEDS: hydrALAZINE (APRESOLINE) 25 MG TAB PO SCH ×3 (08:58→20:04)
[2018-03-04] MEDS: GABAPENTIN 600 MG (NEURONTIN) TAB PO SCH ×3 (08:58→20:04)
[2018-03-04] MEDS: LORATADINE (CLARITIN) 10 MG TAB PO SCH (08:58)
[2018-03-04 09:00] VITALS: BP 117/71
[2018-03-04] MEDS: MENTHOL/ZINC OXIDE (CALMOSEPTINE) 113 GM TUBE TOP SCH ×2 (09:01→20:06)
--- NOTE | 2018-03-04 10:21 | Physical Therapy Daily Note ---
PT Daily Note-Current Subjective Pt. resistive of PT therapy today. " I thought today was suppose to be an easy day" "Im saving my strength b/c Im suppose to go out on a pass tomorrow" Finally agrees to seated and reclined ther ex as well as sit to stands after educated about importance of activity and movement as well as encouraged. Pain Numeric Pain Scale: 3 Location: Left (and right) Location Body Site: Knee Pain Description: Ache Mental Status Patient Orientation: Normal For Age unmotivated Transfers Functional [place] Measure 0=Not Assessed/NA 4=Minimal Assistance 1=Total Assistance 5=Supervision or Setup 2=Maximal Assistance 6=Modified [place] 3=Moderate Assistance 7=Complete IndependenceIRFPAI Quality Coding Scale 6 Independent with activity with or without an assistive device 5 Patient requires set up or clean up by helper. Patient completes activity by themselves 4 Supervision or touching assist (CGA). [place] provide cues , steadying assist 3 The helper provides less than half the effort to complete the activity 2 The helper provides more than half the effort to complete the activity 1 Dependent. The helper does all the effort to complete an activity 7 Patient refused to complete or attempt activity 9 The patient did not perform the activity before the current illness or injury 88 Not attempted due to Medical conditions or safety concerns Transfers (B, C, W/C) (FIM): 5 Scootin Sit to Stand (QC): 5 Weight Bearing Right Lower Extremity: Right Full Weight Bearing Left Lower Extremity: Left Full Weight Bearing Exercises Supine Ex: Ankle pumps, Quad Set, Glut sets, Heel Slides, Short Arc Quads, Scooting (up in recliner ), Straight leg raise (assist), Hip abd/add Supine Reps: 20 Seated Therapy Exercises: Ankle pumps, Sit to stand (5), Long arc quads, Hip flexion Seated Reps: 20 Assessment Current Status: Good Progress unmotivated, needed encouragement to participate PT Short Term Goals Short Term Goals Time Frame: Mar 03, 2018 Gait (FIM): 2 Gait Distance Comment: 100' Gait Level of Assist: 4 Gait Assistive Device: FWW Wheelchair Distance: 150'x3 PT Welcome Hostess Goals Detention Goals PT Detention Goals Time Frame: Mar 17, 2018 Transfers (B,C,W/C) (FIM): 5 Sit to Lying (QC): 4 Lying-Sitting on Side/Bed(QC): 4 Sit to Stand (QC): 4 Rollin Roll Left to Right (QC): 4 Chair/Fvs-ly-Hhfhs Xfer(QC): 4 Car Transfer (QC): 4 Gait (FIM): 5 Distance: 150' Walk 10 feet (QC): 4 Walk 10ft-Uneven Surface(QC): 4 Walk 50ft with 2 Turns (QC): 4 Walk 150 ft (QC): 4 Gait Level of Assist: 5 Gait Assistive Device: FWW Stairs (FIM): 2 # of Steps: 4 1 Step (curb) (QC): 4 4 Steps (QC): 4 Stairs Level Of Assist: 4 PT Plan Treatment/Plan Treatment Plan: Continue Plan of Care Treatment Plan: Bed Mobility, Education, Functional Activity [place], Functional Strength, Group Therapy, Gait, Safety, Therapeutic Exercise, Transfers Treatment Duration: Mar 17, 2018 Frequency: At least 5 of 7 days/Wk (IRF) Estimated Hrs Per Day: 1.5 hours per day Patient and/or Family Agrees t: Yes Safety Risks/Education Patient Education: Transfer Techniques, Correct Positioning, Disease Process, Safety Issues Teaching Recipient: Patient Teaching Methods: Demonstration, Discussion Response to Teaching: Verbalize Understanding, Return Demonstration, Reinforcement Needed educated regarding benefits of movment and exercise, isometrics in chair etc Time/GCodes Time In: 940 Time Out: 1010 Total Billed Treatment Time: 30 Total Billed Treatment 1,EX20m,FA10m G Codes Necessary: JHON Louise LEGAL OFFICE ADMINISTRATOR Mar 04, 2018 10:21
--- NOTE | 2018-03-04 15:02 | Progress Note-Cardiology ---
Cardiology SOAP Progress Note Subjective: Gen malaise and weakness No cp or palp or syncope or shortness of breath at rest Objective: I&O/Vital Signs 03/04/18 03/04/18 06:00 09:00 Temp 99.6 Pulse 79 Resp 18 B/P (MAP) 121/70 (87) Pulse Ox 97 O2 Delivery Room Air Room Air 03/04/18 00:00 Intake Total 850 ml Output Total 2200 ml Balance -1350 ml Weight (Pounds): 310 Weight (Ounces): 4.8 Weight (Calculated Kilograms): 140.858314 Constitutional: AAO x 3, well-developed, well-nourished Respiratory: No accessory muscle use; lungs clear to auscultation Cardiovascular: regular rate-rhythm, S1 and S2, systolic murmur (faint KYLE at card base) Gastrointestional: No tender; soft; No guarding, No rebound; audible bowel sounds Extremities: No clubbing, No cyanosis, No significant edema Neurologic/Psychiatric: oriented x 3, grossly intact, power is 5/5 both on sides Skin: No rash on exposed areas, No ulcerations on exposed areas Results/Procedures: Labs Laboratory Tests 03/03/18 15:46: Glucometer 196H 03/03/18 20:25: Glucometer 208H 03/03/18 21:38: Glucometer 214H 03/04/18 05:59: Glucometer 190H 03/04/18 07:15: White Blood Count 6.7, Red Blood Count 2.74L, Hemoglobin 7.9L, Hematocrit 24L, Mean Corpuscular Volume 89, Mean Corpuscular Hemoglobin 29, Mean Corpuscular Hemoglobin Concent 33, Red Cell Distribution Width 14.5, Platelet Count 164, Mean Platelet Volume 10.4, Sodium Level 143, Potassium Level 4.6, Chloride Level 109H, Carbon Dioxide Level 25, Anion Gap 9, Blood Urea Nitrogen 43H, Creatinine 1.69H, Estimat Glomerular Filtration Rate 43, BUN/Creatinine Ratio 25 , Glucose Level 175H, Calcium Level 8.8, Magnesium Level 2.1 03/04/18 11:28: Glucometer 203H Laboratory Tests 03/03/18 06:44 03/04/18 07:15 A/P: Assessment: Generalized weakness due to a long hospitalization (here and in [place]) Complications after neck surgery of Jan 2018: including pneumonia, resp failure , and septicemia. Peripheral edema, likely related to hypoproteinemia and venous insuff Continuing post-op anemia Echocardiogram was done at [facility] on February 14, 2018 showing moderate LVH, moderately dilated left atrium, diastolic dysfunction, estimated PA pressure 40 mmHg, ejection fraction 50-55 percent. Patient has refused to take Lovenox due to bleeding, using SCD. Continuing acute on chronic renal insufficiency, albeit stable Coronary artery disease, history of mid LAD stenting using Alpine 3.018 mm done in June 2017, mild to moderate disease in the proximal portion of the LAD, moderate disease at the distal circumflex artery. Continue to monitor History of diabetes mellitus and diabetic neuropathy History of hyperlipidemia, but has intolerance to statin. Spinal stenosis, status post C3-7 ACDF with C5 corpectomy done by Dr. Hardwick History of carotid stenosis, last ultrasound was done in July 2017 Plan: * I reviewed his records, interviewed him, examined him, and discussed his CV issues with him * Management has been complex due to multiple comorbidities (see above) * Continue current regimen * Monitor labs * Consider transfusion if H/H worsen LORAINE POST MD FACP FAC CCDS Mar 04, 2018 15:02
[2018-03-04 17:37] VITALS: BP 144/80
[2018-03-04] MEDS: ROSUVASTATIN 5 MG (CRESTOR) TABLET PO SCH (20:04)
[2018-03-04] MEDS: MELATONIN 3 MG TABLET PO PRN (23:31)
[2018-03-05 05:07] VITALS: BP 120/68
[2018-03-05] MEDS: FERROUS SULF 325 MG (IRON) TAB PO SCH ×2 (05:10→17:04)
[2018-03-05] MEDS: GLIMEPIRIDE 4 MG (AMARYL) TAB PO SCH (05:10)
[2018-03-05] MEDS: ACETAMINOPHEN 325 MG TABLET PO PRN ×2 (05:10→22:39)
[2018-03-05] MEDS: PANTOPRAZOLE 40 MG (PROTONIX) TAB PO SCH (05:11)
[2018-03-05] MEDS: inSUlin ASPART (NovoLOG) 1 UNIT/0.01 ML (CHARGE PER UNIT) SC SCH ×4 (05:12→21:50)
[2018-03-05 07:56] VITALS: BP 118/73
[2018-03-05] MEDS: LOSARTAN 100 MG (COZAAR) TABLET PO SCH (07:59)
[2018-03-05] MEDS: MENTHOL/ZINC OXIDE (CALMOSEPTINE) 113 GM TUBE TOP SCH ×2 (08:00→20:14)
[2018-03-05] MEDS: meTOprolol TARTRATE 50 MG (LOPRESSOR) TAB PO SCH ×2 (08:00→20:11)
[2018-03-05] MEDS: ASPIRIN E.C. 81 MG (ECOTRIN) TAB PO SCH (08:00)
[2018-03-05] MEDS: LORATADINE (CLARITIN) 10 MG TAB PO SCH (08:00)
[2018-03-05] MEDS: amLODIPine 10 MG (NORVASC) TAB PO SCH (08:00)
[2018-03-05] MEDS: hydrALAZINE (APRESOLINE) 25 MG TAB PO SCH ×3 (08:00→20:11)
[2018-03-05] MEDS: FUROSEMIDE 40 MG (LASIX) TAB PO SCH (08:00)
[2018-03-05] MEDS: GABAPENTIN 600 MG (NEURONTIN) TAB PO SCH ×3 (08:00→21:44)
[2018-03-05 16:56] VITALS: BP 161/89
[2018-03-05] MEDS ORDERED: FUROSEMIDE 20 MG (LASIX) TAB PO ONE (18:30)
--- NOTE | 2018-03-05 18:34 | PM & R (SOAP) Progress Note ---
Subjective This was a face to face visit with the patient. Date Seen by Provider: Mar 05, 2018 Time Seen by Provider: 17:45 Subjective/Events-last exam Patient was seen in his room this evening Patient c/o increased swellin in thighs Cardiology has adjusted lasix downward due to climbing INR Discussed with RN will order 1 time evening dose tonight and Cardiology will f/u in Am Patient SBA for transfers Date Identified: Mar 05, 2018 Time Identified: 18:00 Medication Intervention: Adjustment in diuretic for edema Review of Systems Cardiovascular: Edema Objective Physician Exam Last Set of Vital Signs Vital Signs Date Time Temp Pulse Resp B/P (MAP) Pulse Ox O2 Delivery O2 Flow Rate FiO2 03/05/18 16:56 99.4 89 18 161/89 (113) 92 Room Air Capillary Refill : I&O Intake and Output 03/05/18 00:00 Intake Total 2180 ml Output Total 1925 ml Balance 255 ml Intake Oral 2180 ml Output Urine Total 1925 ml # Voids 3 # Bowel Movements 4 General: Alert, Oriented X3, Cooperative, No Acute Distress HEENT: Atraumatic, PERRLA, EOMI, Mucous Memb Moist/[place] Neck: Other (Neck brace) Lungs: Clear to Auscultation Heart: Regular Rate, Normal S1, Normal S2 Abdomen: Normal Bowel Sounds, Soft, No Tenderness Extremities: No Clubbing, No Edema (edema + thighs), Normal Pulses, Other (+ 2- 3 edema BLE) Skin: No Rashes Neuro: Normal Speech, Strength at 5/5 X4 Ext, Other (generalized weakness) Psych/Mental Status: Mental Status NL Results Lab Data Laboratory Tests 03/02/18 20:49: Glucometer 229H 03/03/18 06:44: White Blood Count 5.9, Red Blood Count 2.75L, Hemoglobin 7.7L, Hematocrit 24L, Mean Corpuscular Volume 88, Mean Corpuscular Hemoglobin 28, Mean Corpuscular Hemoglobin Concent 32, Red Cell Distribution Width 14.4, Platelet Count 147, Mean Platelet Volume 10.0, Sodium Level 142, Potassium Level 4.7, Chloride Level 110H, Carbon Dioxide Level 22, Anion Gap 10, Blood Urea Nitrogen 44H, Creatinine 1.69H, Estimat Glomerular Filtration Rate 43, BUN/Creatinine Ratio 26 , Glucose Level 162H, Calcium Level 8.8 03/03/18 11:31: Glucometer 161H 03/03/18 15:46: Glucometer 196H 03/03/18 20:25: Glucometer 208H 03/03/18 21:38: Glucometer 214H 03/04/18 05:59: Glucometer 190H 03/04/18 07:15: White Blood Count 6.7, Red Blood Count 2.74L, Hemoglobin 7.9L, Hematocrit 24L, Mean Corpuscular Volume 89, Mean Corpuscular Hemoglobin 29, Mean Corpuscular Hemoglobin Concent 33, Red Cell Distribution Width 14.5, Platelet Count 164, Mean Platelet Volume 10.4, Sodium Level 143, Potassium Level 4.6, Chloride Level 109H, Carbon Dioxide Level 25, Anion Gap 9, Blood Urea Nitrogen 43H, Creatinine 1.69H, Estimat Glomerular Filtration Rate 43, BUN/Creatinine Ratio 25 , Glucose Level 175H, Calcium Level 8.8, Magnesium Level 2.1 03/04/18 11:28: Glucometer 203H 03/04/18 16:11: Glucometer 154H 03/04/18 23:31: Glucometer 242H 03/05/18 05:08: Glucometer 177H 03/05/18 17:06: Glucometer 215H Assessment/Plan Assessment and Plan Recent HX of spine surgery for DDD with myelopathy improving Peripheral edema pOSTOP ANEMIA improving s/p transfusion General debil secondary to Postop anemia associated with Coag neg staph bacteremia improving s/p course of trriple antibiotic Pyelonephritis by CT scan treated HCAP treated DM 2 controlled HTN controlled CHF treated Hypoalbuminemia HLP GABRIELLA on Cpap Obesity Plan Continue PT/OT Team Conference 03-08-=18 F/U with cardiology and PCP re labs and edema RN notes groin rash Topical treatment ordered Miconazole See orders Co-Morbidities that are continuing to impact the rehab process: (include details ) SALEEM AMATO MD Mar 05, 2018 18:34
[2018-03-05] MEDS: ROSUVASTATIN 5 MG (CRESTOR) TABLET PO SCH (20:11)
[2018-03-05] MEDS: MICONAZOLE 2% POWDER (DESENEX AF) 90 GM TOP SCH (20:13)
[2018-03-05] MEDS: MELATONIN 3 MG TABLET PO PRN (21:44)
[2018-03-06 05:04] VITALS: BP 116/70
[2018-03-06] MEDS: inSUlin ASPART (NovoLOG) 1 UNIT/0.01 ML (CHARGE PER UNIT) SC SCH ×4 (06:19→21:36)
[2018-03-06] MEDS: GLIMEPIRIDE 4 MG (AMARYL) TAB PO SCH (06:54)
[2018-03-06] MEDS: FERROUS SULF 325 MG (IRON) TAB PO SCH ×2 (06:54→16:45)
[2018-03-06] MEDS: PANTOPRAZOLE 40 MG (PROTONIX) TAB PO SCH (06:54)
--- NOTE | 2018-03-06 08:16 | Progress Note (SOAP) ---
Subjective Time Seen by a Provider: 08:12 Subjective/Events-last exam Patient's leg swollen yesterday. Patient gained 8 pounds yesterday. Patient ate at [employer] yesterday. Patient getting around better. Patient had a 4 hour pass yesterday Objective Exam Vital Signs Date Time Temp Pulse Resp B/P (MAP) Pulse Ox O2 Delivery O2 Flow Rate FiO2 03/06/18 05:04 98.0 83 18 116/70 (85) 96 Room Air 03/05/18 21:00 Room Air 03/05/18 16:56 99.4 89 18 161/89 (113) 92 Room Air 03/05/18 09:12 Room Air I & O 03/06/18 07:00 Intake Total 1300 ml Output Total 1200 ml Balance 100 ml Capillary Refill : General Appearance: No Apparent Distress, WD/WN HEENT: Normal ENT Inspection Neck: Normal Inspection Respiratory: No Accessory Muscle Use, No Respiratory Distress Results Lab Laboratory Tests 03/05/18 17:06: Glucometer 215H 03/05/18 21:46: Glucometer 213H 03/06/18 05:43: Glucometer 184H Assessment/Plan Assessment/Plan Assess & Plan/Chief Complaint Diabetes. Coagulase negative bacteremia. Recent cervical surgery. Myopathy. Weakness. Renal insufficiency. . 03/01/18. Diabetes doing better. Coagulase negative bacteremia. Recent cervical surgery. Myopathy. Weakness. Renal insufficiency.. . To 03/02/18. Weakness. Renal insufficiency. Coagulase negative bacteremia. Hemoglobin 6.7. Patient to get 1 unit of packed red blood cells today 03/03/18: Weakness. Renal insufficiency. Anemia, Hemoglobin 7.7 DM. GABRIELLA.. . 03/06/18. Weakness. Renal insufficiency. Anemia. Diabetes. GABRIELLA. Patient gained 8 pounds. Clinical Quality Measures DVT/VTE Risk/Contraindication: Risk Factor Score Per Nursin RFS Level Per Nursing on Admit: 4+=Very High MARIIA SIM DO Mar 06, 2018 08:16
--- NOTE | 2018-03-06 08:25 | Cardiology Progress Note ---
Subjective Date Seen by Provider: Mar 06, 2018 Time Seen by Provider: 08:23 Subjective/Events-last exam Patient c/o increased peripheral edema and some orthopnea. Went out on 4 hour day pass yesterday. Patient admits to eating diet higher in salt yesterday. Denies any CP. Denies any dizziness. Objective-Cardiology Exam Last Set of Vital Signs Vital Signs 03/06/18 05:04 Temp 98.0 Pulse 83 Resp 18 B/P (MAP) 116/70 (85) Pulse Ox 96 O2 Delivery Room Air Capillary Refill : I&O Intake and Output 03/06/18 00:00 Intake Total 1440 ml Output Total 300 ml Balance 1140 ml Intake Oral 1440 ml Output Urine Total 300 ml # Voids 4 # Bowel Movements 2 General: Alert, Oriented X3, Cooperative, No Acute Distress HEENT: Atraumatic, PERRLA, EOMI, Mucous Memb Moist/[place] Neck: Other (Neck brace) Lungs: Clear to Auscultation Heart: Regular Rate, Normal S1, Normal S2 Abdomen: Normal Bowel Sounds, Soft, No Tenderness Extremities: No Clubbing, No Edema (edema + thighs), Normal Pulses, Other (+ 2- 3 edema BLE) Skin: No Rashes Neuro: Normal Speech, Strength at 5/5 X4 Ext, Other (generalized weakness) Psych/Mental Status: Mental Status NL A/P-Cardiology Admission Diagnosis Acute renal failure Peripheral edema Coronary artery disease Hypertension Assessment/Plan Generalized weakness and loss of energy secondary to complicated hospital stay after neck surgery, had pneumonia, bacteremia, received antibiotic and reporting improvement. Peripheral edema, +2-3. Continue on Lasix 40 mg once daily and I will give additional dose of Lasix once today and monitor. Discussed limiting salt in his diet. Anemia, s/p transfusion. Continue to monitor H/H closely. Echocardiogram was done at [facility] on February 14, 2018 showing moderate LVH, moderately dilated left atrium, diastolic dysfunction, estimated PA pressure 40 mmHg, ejection fraction 50-55 percent. Patient has refused to take Lovenox due to bleeding, using SCD. Acute on chronic renal insufficiency. Slightly better renal function, continue to monitor his History of coronary artery disease, history of mid LAD stenting using Alpine 3.0 18 mm done in June 2017, mild to moderate disease in the proximal portion of the LAD, moderate disease at the distal circumflex artery. Continue to monitor History of diabetes mellitus, diabetic neuropathy, followed and managed by primary care physician History of hyperlipidemia with intolerance to statin. Spinal stenosis, status post C3-7 ACDF with C5 corpectomy done by Dr. Hardwick History of carotid stenosis, last ultrasound was done in July 2017. Continue to monitor History of respiratory failure secondary to pneumonia. Improved. Continue to monitor Clinical Quality Measures DVT/VTE Risk/Contraindication: Risk Factor Score Per Nursin RFS Level Per Nursing on Admit: 4+=Very High CLAY SOMERS Mar 06, 2018 08:25
[2018-03-06 08:35] VITALS: BP 136/76
[2018-03-06] MEDS: FUROSEMIDE 40 MG (LASIX) TAB PO SCH (08:38)
[2018-03-06] MEDS: GABAPENTIN 600 MG (NEURONTIN) TAB PO SCH ×3 (08:38→21:34)
[2018-03-06] MEDS: LORATADINE (CLARITIN) 10 MG TAB PO SCH (08:39)
[2018-03-06] MEDS: ASPIRIN E.C. 81 MG (ECOTRIN) TAB PO SCH (08:39)
[2018-03-06] MEDS: meTOprolol TARTRATE 50 MG (LOPRESSOR) TAB PO SCH ×2 (08:41→21:34)
[2018-03-06] MEDS: MICONAZOLE 2% POWDER (DESENEX AF) 90 GM TOP SCH ×2 (08:42→21:36)
[2018-03-06] MEDS: MENTHOL/ZINC OXIDE (CALMOSEPTINE) 113 GM TUBE TOP SCH ×2 (08:42→21:38)
[2018-03-06] MEDS: LOSARTAN 100 MG (COZAAR) TABLET PO SCH (08:42)
[2018-03-06] MEDS: hydrALAZINE (APRESOLINE) 25 MG TAB PO SCH ×3 (08:42→21:34)
[2018-03-06] MEDS: amLODIPine 10 MG (NORVASC) TAB PO SCH (08:45)
[2018-03-06] MEDS: ACETAMINOPHEN 325 MG TABLET PO PRN ×2 (08:45→17:53)
--- NOTE | 2018-03-06 10:12 | Physical Therapy Daily Note ---
PT Daily Note-Current Subjective Pt. resists Rx stating he is too swollen in LEs and hips and so tired. Agreeable after encouragement Pain Numeric Pain Scale: 3 Location: Left (and right ) Location Body Site: Knee Pain Description: Pressure Appearance pitted edema up in to hips and abdomen etc Mental Status Patient Orientation: Normal For Age Attachments: Other-See Comments (neck brace) Transfers Functional [place] Measure 0=Not Assessed/NA 4=Minimal Assistance 1=Total Assistance 5=Supervision or Setup 2=Maximal Assistance 6=Modified [place] 3=Moderate Assistance 7=Complete IndependenceIRFPAI Quality Coding Scale 6 Independent with activity with or without an assistive device 5 Patient requires set up or clean up by helper. Patient completes activity by themselves 4 Supervision or touching assist (CGA). [place] provide cues , steadying assist 3 The helper provides less than half the effort to complete the activity 2 The helper provides more than half the effort to complete the activity 1 Dependent. The helper does all the effort to complete an activity 7 Patient refused to complete or attempt activity 9 The patient did not perform the activity before the current illness or injury 88 Not attempted due to Medical conditions or safety concerns Transfers (B, C, W/C) (FIM): 6 Scootin Rollin Supine to/from Sit: 6 Sit to/from Stand: 6 needed instruction and encouragement to attempt coming up from flat bed without rails simulating home bed Weight Bearing Right Lower Extremity: Right Full Weight Bearing Left Lower Extremity: Left Full Weight Bearing Gait Training Does the Patient Walk?: Yes Gait (FIM): 5 Distance (FIM): 3=150 ft (x3) Gait Level of Assist: 5 Gait Persons Needed: 1 Gait Assistive Device: FWW slow Exercises Supine Ex: Bridging, Ankle pumps, Quad Set, Rolling, Glut sets, Heel Slides, Short Arc Quads, Scooting, Straight leg raise (assist), Hip abd/add Supine Reps: 15 Seated Therapy Exercises: Ankle pumps, Sit to stand, Long arc quads, Hip flexion Seated Reps: 15 Treatments assist to dorcas shoes Assessment Current Status: Good Progress pt. needs encouragement to work and progress PT Short Term Goals Short Term Goals Time Frame: Mar 03, 2018 Gait (FIM): 2 Gait Distance Comment: 100' Gait Level of Assist: 4 Gait Assistive Device: FWW Wheelchair Distance: 150'x3 PT Order Dispatcher Goals Longterm Goals PT Order Dispatcher Goals Time Frame: Mar 17, 2018 Transfers (B,C,W/C) (FIM): 5 Sit to Lying (QC): 4 Lying-Sitting on Side/Bed(QC): 4 Sit to Stand (QC): 4 Rollin Roll Left to Right (QC): 4 Chair/Ywr-zy-Nxqlz Xfer(QC): 4 Car Transfer (QC): 4 Gait (FIM): 5 Distance: 150' Walk 10 feet (QC): 4 Walk 10ft-Uneven Surface(QC): 4 Walk 50ft with 2 Turns (QC): 4 Walk 150 ft (QC): 4 Gait Level of Assist: 5 Gait Assistive Device: FWW Stairs (FIM): 2 # of Steps: 4 1 Step (curb) (QC): 4 4 Steps (QC): 4 Stairs Level Of Assist: 4 PT Plan Treatment/Plan Treatment Plan: Continue Plan of Care Treatment Plan: Bed Mobility, Education, Functional Activity [place], Functional Strength, Group Therapy, Gait, Safety, Therapeutic Exercise, Transfers Treatment Duration: Mar 17, 2018 Frequency: At least 5 of 7 days/Wk (IRF) Estimated Hrs Per Day: 1.5 hours per day Patient and/or Family Agrees t: Yes Safety Risks/Education Patient Education: Gait Training, Transfer Techniques, Steps, Correct Positioning, Disease Process, Safety Issues Teaching Recipient: Patient Teaching Methods: Demonstration, Discussion Response to Teaching: Verbalize Understanding, Return Demonstration, Reinforcement Needed Time/GCodes Time In: 1000 Time Out: 1100 Total Billed Treatment Time: 60 Total Billed Treatment 1, EX25m,GT20m,FA15m G Codes Necessary: JHON Louise HADOOP DEVELOPER Mar 06, 2018 10:11
--- NOTE | 2018-03-06 11:38 | Cardiology Progress Note ---
Subjective Date Seen by Provider: Mar 06, 2018 Time Seen by Provider: 11:37 Subjective/Events-last exam Patient was seen and evaluated during physical therapy session. Has been feeling better, complaining of worsening edema. No chest pain. Review of Systems General: No Chills, No Night Sweats; Fatigue; No Malaise, No Appetite, No Other HEENT: No Head Aches, No Visual Changes, No Eye Pain, No Ear Pain, No Dysphasia , No Sinus Congestion, No Post Nasal Drip, No Sore Throat, No Other Pulmonary: Dyspnea; No Cough, No Pleuritic Chest Pain, No Other Cardiovascular: Edema; No: Chest Pain, Palpitations, Orthopnea, Paroxysmal Noc. Dyspnea, Lt Headedness, Other Objective-Cardiology Exam Last Set of Vital Signs Vital Signs 03/06/18 03/06/18 03/06/18 05:04 08:35 08:43 Temp 98.0 Pulse 88 Resp 18 B/P (MAP) 136/76 (96) Pulse Ox 96 O2 Delivery Room Air Capillary Refill : I&O Intake and Output 03/06/18 00:00 Intake Total 1440 ml Output Total 300 ml Balance 1140 ml Intake Oral 1440 ml Output Urine Total 300 ml # Voids 4 # Bowel Movements 2 General: Alert, Oriented X3, Cooperative, No Acute Distress HEENT: Atraumatic, PERRLA, EOMI, Mucous Memb Moist/[place] Neck: Other (Neck brace) Lungs: Clear to Auscultation Heart: Regular Rate, Normal S1, Normal S2 Abdomen: Normal Bowel Sounds, Soft, No Tenderness Extremities: No Clubbing, Normal Pulses, Other (+ 2-3 edema BLE) Skin: No Rashes Neuro: Normal Speech, Strength at 5/5 X4 Ext, Other (generalized weakness) Psych/Mental Status: Mental Status NL Results Lab Laboratory Tests Test 03/05/18 17:06 03/05/18 21:46 03/06/18 05:43 Range/Units Glucometer 215 H 213 H 184 H 70-110 MG/DL A/P-Cardiology Admission Diagnosis Acute renal failure Peripheral edema Coronary artery disease Hypertension Assessment/Plan Generalized weakness and loss of energy secondary to complicated hospital stay after neck surgery, had pneumonia, bacteremia, received antibiotic and reporting improvement. Peripheral edema, +2-3. Continue on Lasix 40 mg once daily and I will give additional dose of Lasix once today and monitor. Discussed limiting salt in his diet. Anemia, s/p transfusion. Continue to monitor H/H closely. Echocardiogram was done at [facility] on February 14, 2018 showing moderate LVH, moderately dilated left atrium, diastolic dysfunction, estimated PA pressure 40 mmHg, ejection fraction 50-55 percent. Patient has refused to take Lovenox due to bleeding, using SCD. Acute on chronic renal insufficiency. Slightly better renal function, continue to monitor his History of coronary artery disease, history of mid LAD stenting using Alpine 3.0 18 mm done in June 2017, mild to moderate disease in the proximal portion of the LAD, moderate disease at the distal circumflex artery. Continue to monitor History of diabetes mellitus, diabetic neuropathy, followed and managed by primary care physician History of hyperlipidemia with intolerance to statin. Spinal stenosis, status post C3-7 ACDF with C5 corpectomy done by Dr. Hardwick History of carotid stenosis, last ultrasound was done in July 2017. Continue to monitor History of respiratory failure secondary to pneumonia. Improved. Continue to monitor Clinical Quality Measures DVT/VTE Risk/Contraindication: Risk Factor Score Per Nursin RFS Level Per Nursing on Admit: 4+=Very High KAREN YANG MD Mar 06, 2018 11:38
[2018-03-06] MEDS ORDERED: FUROSEMIDE 40 MG/4 ML INJ (LASIX) IVP NR (11:45)
[2018-03-06 13:17] LABS: HEMOGLOBIN 7.4 G/DL (13.3-17.7); MEAN PLATELET VOLUME 10.5 FL (7.4-10.4); RED BLOOD COUNT 2.54 10^6/uL (4.35-5.85); RED CELL DISTRIBUTION WIDTH 14.7 % (10.0-14.5); WHITE BLOOD COUNT 5.6 10^3/uL (4.3-11.0)
[2018-03-06 13:34] LABS: CALCIUM 8.8 MG/DL (8.5-10.1); CREATININE SERUM 1.92 MG/DL (0.60-1.30); POTASSIUM 5.2 MMOL/L (3.6-5.0)
[2018-03-06 14:42] VITALS: BP 144/80
--- NOTE | 2018-03-06 14:54 | Occupational Ther Daily Note ---
OT Current Status-Daily Note Subjective Pt. reports 6/10 pain in neck. Pt. has already had tylenol. Not quite time for more. Made sure neck brace on when up. Appearance Pt. in bed. Agrees to shower. Mental Status/Objective Patient Orientation: Person, Place Functional [place] Measure 0=Not Assessed/NA 4=Minimal Assistance 1=Total Assistance 5=Supervision or Setup 2=Maximal Assistance 6=Modified [place] 3=Moderate Assistance 7=Complete [place] Attachments: IV ADL-Treatment Functional [place] Measure 0=Not Assessed/NA 4=Minimal Assistance 1=Total Assistance 5=Supervision or Setup 2=Maximal Assistance 6=Modified [place] 3=Moderate Assistance 7=Complete IndependenceIRFPAI Quality Coding Scale 6 Independent with activity with or without an assistive device 5 Patient requires set up or clean up by helper. Patient completes activity by themselves 4 Supervision or touching assist (CGA). [place] provide cues , steadying assist 3 The helper provides less than half the effort to complete the activity 2 The helper provides more than half the effort to complete the activity 1 Dependent. The helper does all the effort to complete an activity 7 Patient refused to complete or attempt activity 9 The patient did not perform the activity before the current illness or injury 88 Not attempted due to Medical conditions or safety concerns Grooming (FIM): 5 (SBA at sink to brush teeth and comb hair.) Oral Hygiene (QC): 4 Bathing (FIM): 5 (SBA in shower to bathe self. Pt. educated again about using LH sponge to dry feet off.) Shower/Bathe Self (QC): 4 Upper Body (FIM): 5 Upper Body Dressing (QC): 4 Lower Body Dressing (FIM): 2 (Pt. utilizes AE to don underwear and pants. Still has great difficulty getting over feet, and then over hips in standing. Max assist required. Pt. declines using sock aide for socks, stating that he will have help from home health at home.) Lower Body Dressing (QC): 2 On/Off Footwear (QC): 2 Transfers (B, C, W/C) (FIM): 4 (Min assist out of low chair to stand.) Shower Transfer(FIM): 4 Other Treatment Pt. demonstrates decreased awareness of importance of being more independent before discharge home. Pt. will ask OT to do multiple things for him, instead of automatically attempting for self. OT encourages pt. to do for self with supervision. After ADL tasks, pt. ambulated to therapy gym to complete armbike x 10 minutes for increased UE strengthening. Ambulated back to room and sat on side of bed after treatment in gym. All needs met. Education OT Patient Education: Correct positioning, Exercise program, Modified ADL techniques, Progress toward Goal/Update tx plan, Purpose of tx/functional activities, Reviewed precautions, Rehab process, Transfer techniques Teaching Recipient: Patient Teaching Methods: Demonstration, Discussion Response to Teaching: Verbalize Understanding, Return Demonstration OT Short Term Goals Short Term Goals Time Frame: Mar 03, 2018 Bathing(FIM): 4 Lower Body Dressing(FIM): 4 Toileting(FIM): 4 Toilet/Commode Transfer(FIM): 4 Additional Short Term Goals: 2-Verbalize Understanding, 3-ImproveStrength/[place] 1=Demonstrate adherence to instructed precautions during ADL tasks. 2=Patient will verbalize/demonstrate understanding of assistive devices/ modifications for ADL. 3=Patient will improve strength/tolerance for activity to enable patient to perform ADL's. OT Long-Term Goals Long-Term Goals Time Frame: Mar 17, 2018 Eating (FIM): 7 Eating (QC): 6 Groomin Oral Hygiene (QC): 6 Bathing(FIM): 5 Shower/Bathe Self (QC): 5 Upper Body Dressing(FIM): 6 Upper Body Dressing (QC): 6 Lower Body Dressing(FIM): 5 Lower Body Dressing (QC): 5 On/Off Footwear (QC): 5 Toileting(FIM): 5 Toileting Hygiene (QC): 5 Toilet/Commode Transfer(FIM): 5 Toilet/Commode Transfer (QC): 5 Shower Transfer(FIM): 5 Additional Goals: 1-Demonstrate ADL Tasks, 2-Verbalize Understanding, 3- ImproveStrength/[place]ody 1=Demonstrate adherence to instructed precautions during ADL tasks. 2=Patient will verbalize/demonstrate understanding of assistive devices/ modifications for ADL. 3=Patient will improve strength/tolerance for activity to enable patient to perform ADL's. OT Education/Plan Problem List/Assessment Assessment: Decreased Activ Tolerance, Dependent Transfers, Impaired I ADL's, Impaired Self-Care Skills, Restricted Funct UE ROM Discharge Recommendations Plan/Recommendations: Continue POC Therapy D/C Recommendations: Home w/ Family Support, Occupational Therapy Home Care, Scheduled Assistance Treatment Plan/Plan of Care Treatment,Training & Education: Yes Patient would benefit from OT for education, treatment and training to promote independence in ADL's, mobility, safety and/or upper extremity function for ADL' s. Plan of Care: ADL Retraining, Functional Mobility, Group Exercise/Act as Ind, UE Funct Exercise/Act Treatment Duration: Mar 17, 2018 Frequency: Modified Program (IRF) (25/12) Estimated Hrs Per Day: 1.5 hours per day Agreement: Yes Rehab Potential: Good Time/GCodes Start Time: 10:00 Stop Time: 11:00 Total Time Billed (hr/min): 60 Billed Treatment Time 1, ADL x 45minutes, Ex x 15minutes RICHARD LING OT Mar 06, 2018 14:54
--- NOTE | 2018-03-06 15:00 | Physical Therapy Daily Note ---
PT Daily Note-Current Subjective pt in bed pre tx, agrees to PT, no pain to report Appearance pt in recliner post tx, OT in the room to begin tx Mental Status Patient Orientation: Normal For Age Transfers Functional [place] Measure 0=Not Assessed/NA 4=Minimal Assistance 1=Total Assistance 5=Supervision or Setup 2=Maximal Assistance 6=Modified [place] 3=Moderate Assistance 7=Complete IndependenceIRFPAI Quality Coding Scale 6 Independent with activity with or without an assistive device 5 Patient requires set up or clean up by helper. Patient completes activity by themselves 4 Supervision or touching assist (CGA). [place] provide cues , steadying assist 3 The helper provides less than half the effort to complete the activity 2 The helper provides more than half the effort to complete the activity 1 Dependent. The helper does all the effort to complete an activity 7 Patient refused to complete or attempt activity 9 The patient did not perform the activity before the current illness or injury 88 Not attempted due to Medical conditions or safety concerns Transfers (B, C, W/C) (FIM): 5 Scootin Rollin Supine to/from Sit: 5 Sit to/from Stand: 5 SBA for all transfers, Cristiane for sit<->stand for lower surfaces Weight Bearing Right Lower Extremity: Right Full Weight Bearing Left Lower Extremity: Left Full Weight Bearing Gait Training Does the Patient Walk?: Yes Gait (FIM): 5 Distance: 150'x2 Gait Level of Assist: 5 Gait Persons Needed: 1 Gait Assistive Device: FWW pt ambulates to/from gym w/ SBA using FWW, gait is slow but steady, pt demonstrates excessive knee extension due to weakness and needs occasional standing rest breaks Stair Training Stair Training: Handrails/: 2 handrails Stairs (FIM): 2 #of Steps: 4 Stairs: Pattern: Step to Level of Assist: 3 pt ascends/descend 4 stairs w/ step-to pattern using 2 handrails w/ modAx2, cues needed for sequencing and foot placement Treatments gait training, bed mobility, stair training Assessment Current Status: Fair Progress increased gait distance and improved bed mobility, increased willingness to attempt stair training PT Short Term Goals Short Term Goals Time Frame: Mar 03, 2018 Gait (FIM): 2 Gait Distance Comment: 100' Gait Level of Assist: 4 Gait Assistive Device: FWW Wheelchair Distance: 150'x3 PT Glazing Machine Operator Goals Mcc Goals PT Glazing Machine Operator Goals Time Frame: Mar 17, 2018 Transfers (B,C,W/C) (FIM): 5 Sit to Lying (QC): 4 Lying-Sitting on Side/Bed(QC): 4 Sit to Stand (QC): 4 Rollin Roll Left to Right (QC): 4 Chair/Bgv-tl-Stwxe Xfer(QC): 4 Car Transfer (QC): 4 Gait (FIM): 5 Distance: 150' Walk 10 feet (QC): 4 Walk 10ft-Uneven Surface(QC): 4 Walk 50ft with 2 Turns (QC): 4 Walk 150 ft (QC): 4 Gait Level of Assist: 5 Gait Assistive Device: FWW Stairs (FIM): 2 # of Steps: 4 1 Step (curb) (QC): 4 4 Steps (QC): 4 Stairs Level Of Assist: 4 PT Plan Problem List Problem List: Activity Tolerance, Functional Strength, Safety, Balance, Gait, Transfer, Bed Mobility Treatment/Plan Treatment Plan: Continue Plan of Care Treatment Plan: Bed Mobility, Education, Functional Activity [place], Functional Strength, Group Therapy, Gait, Safety, Therapeutic Exercise, Transfers Treatment Duration: Mar 17, 2018 Frequency: At least 5 of 7 days/Wk (IRF) Estimated Hrs Per Day: 1.5 hours per day Patient and/or Family Agrees t: Yes Safety Risks/Education Patient Education: Gait Training, Transfer Techniques, Correct Positioning, Safety Issues Teaching Recipient: Patient Teaching Methods: Demonstration, Discussion Response to Teaching: Reinforcement Needed Time/GCodes Time In: 1330 Time Out: 1400 Total Billed Treatment Time: 30 Total Billed Treatment 1 visit GT 15' FA 15' MARK RAMIREZ PT Mar 06, 2018 15:00
--- NOTE | 2018-03-06 15:01 | Occupational Ther Daily Note ---
OT Current Status-Daily Note Subjective Pt. is up in chair in room. Agrees to work with OT. Appearance No pain reported. Mental Status/Objective Patient Orientation: Person, Place, Time, Situation Functional [place] Measure 0=Not Assessed/NA 4=Minimal Assistance 1=Total Assistance 5=Supervision or Setup 2=Maximal Assistance 6=Modified [place] 3=Moderate Assistance 7=Complete [place] ADL-Treatment Functional [place] Measure 0=Not Assessed/NA 4=Minimal Assistance 1=Total Assistance 5=Supervision or Setup 2=Maximal Assistance 6=Modified [place] 3=Moderate Assistance 7=Complete IndependenceIRFPAI Quality Coding Scale 6 Independent with activity with or without an assistive device 5 Patient requires set up or clean up by helper. Patient completes activity by themselves 4 Supervision or touching assist (CGA). [place] provide cues , steadying assist 3 The helper provides less than half the effort to complete the activity 2 The helper provides more than half the effort to complete the activity 1 Dependent. The helper does all the effort to complete an activity 7 Patient refused to complete or attempt activity 9 The patient did not perform the activity before the current illness or injury 88 Not attempted due to Medical conditions or safety concerns Other Treatment Pt. requires assistance to don neck brace. Ambulated with CGA to therapy gym with walker. Pt. asks OT to file his nails, as they are "bumpy." OT encouraged pt. to do this for self. Pt. does this but states that it fatigues him. Pt. then completed fine motor task of putting small clothespins on bar with fine motor strength and coordination. Pt. tolerated this well. Ambulated back to room with all needs met in bed. Pt. able to lift legs into bed and able to position self. Education OT Patient Education: Correct positioning, Exercise program, Modified ADL techniques, Progress toward Goal/Update tx plan, Purpose of tx/functional activities, Reviewed precautions, Rehab process, Transfer techniques Teaching Recipient: Patient Teaching Methods: Demonstration, Discussion Response to Teaching: Verbalize Understanding, Return Demonstration OT Short Term Goals Short Term Goals Time Frame: Mar 03, 2018 Bathing(FIM): 4 Lower Body Dressing(FIM): 4 Toileting(FIM): 4 Toilet/Commode Transfer(FIM): 4 Additional Short Term Goals: 2-Verbalize Understanding, 3-ImproveStrength/[place] 1=Demonstrate adherence to instructed precautions during ADL tasks. 2=Patient will verbalize/demonstrate understanding of assistive devices/ modifications for ADL. 3=Patient will improve strength/tolerance for activity to enable patient to perform ADL's. OT Retirement Goals Jig Borer Goals Time Frame: Mar 17, 2018 Eating (FIM): 7 Eating (QC): 6 Groomin Oral Hygiene (QC): 6 Bathing(FIM): 5 Shower/Bathe Self (QC): 5 Upper Body Dressing(FIM): 6 Upper Body Dressing (QC): 6 Lower Body Dressing(FIM): 5 Lower Body Dressing (QC): 5 On/Off Footwear (QC): 5 Toileting(FIM): 5 Toileting Hygiene (QC): 5 Toilet/Commode Transfer(FIM): 5 Toilet/Commode Transfer (QC): 5 Shower Transfer(FIM): 5 Additional Goals: 1-Demonstrate ADL Tasks, 2-Verbalize Understanding, 3- ImproveStrength/[place]ody 1=Demonstrate adherence to instructed precautions during ADL tasks. 2=Patient will verbalize/demonstrate understanding of assistive devices/ modifications for ADL. 3=Patient will improve strength/tolerance for activity to enable patient to perform ADL's. OT Education/Plan Problem List/Assessment Assessment: Decreased Activ Tolerance, Decreased UE Strength, Dependent Transfers, Impaired I ADL's, Impaired Self-Care Skills Discharge Recommendations Plan/Recommendations: Continue POC Therapy D/C Recommendations: Home w/ Family Support, Occupational Therapy Home Care, Scheduled Assistance Treatment Plan/Plan of Care Treatment,Training & Education: Yes Patient would benefit from OT for education, treatment and training to promote independence in ADL's, mobility, safety and/or upper extremity function for ADL' s. Plan of Care: ADL Retraining, Functional Mobility, Group Exercise/Act as Ind, UE Funct Exercise/Act Treatment Duration: Mar 17, 2018 Frequency: Modified Program (IRF) (25/12) Estimated Hrs Per Day: 1.5 hours per day Agreement: Yes Rehab Potential: Good Time/GCodes Start Time: 14:00 Stop Time: 14:35 Total Time Billed (hr/min): 35 Billed Treatment Time 1, FA x 2 RICHARD LING OT Mar 06, 2018 15:01
--- NOTE | 2018-03-06 21:23 | PM & R (SOAP) Progress Note ---
Subjective This was a face to face visit with the patient. Date Seen by Provider: Mar 06, 2018 Time Seen by Provider: 20:45 Subjective/Events-last exam Patient was seen in his room this evening Patient diuresing with lasix K elevated as well as BUN/cr will recheck Appreciate DR Hirsch note and orders.Patient SBA for transfers Date Identified: Mar 06, 2018 Time Identified: 20:45 Medication Intervention: Meds being adjusted for diuresis Review of Systems Cardiovascular: Edema Objective Physician Exam Last Set of Vital Signs Vital Signs Date Time Temp Pulse Resp B/P (MAP) Pulse Ox O2 Delivery O2 Flow Rate FiO2 03/06/18 14:42 98.8 82 16 144/80 (101) 97 Room Air Capillary Refill : I&O Intake and Output 03/06/18 00:00 Intake Total 1440 ml Output Total 300 ml Balance 1140 ml Intake Oral 1440 ml Output Urine Total 300 ml # Voids 4 # Bowel Movements 2 General: Alert, Oriented X3, Cooperative, No Acute Distress HEENT: Atraumatic, PERRLA, EOMI, Mucous Memb Moist/[place] Neck: Other (Neck brace) Lungs: Clear to Auscultation Heart: Regular Rate, Normal S1, Normal S2 Abdomen: Normal Bowel Sounds, Soft, No Tenderness Extremities: No Clubbing, Normal Pulses, Other (+ 2-3 edema BLE) Skin: No Rashes Neuro: Normal Speech, Strength at 5/5 X4 Ext, Other (generalized weakness) Psych/Mental Status: Mental Status NL Results Lab Data Laboratory Tests 03/03/18 21:38: Glucometer 214H 03/04/18 05:59: Glucometer 190H 03/04/18 07:15: White Blood Count 6.7, Red Blood Count 2.74L, Hemoglobin 7.9L, Hematocrit 24L, Mean Corpuscular Volume 89, Mean Corpuscular Hemoglobin 29, Mean Corpuscular Hemoglobin Concent 33, Red Cell Distribution Width 14.5, Platelet Count 164, Mean Platelet Volume 10.4, Sodium Level 143, Potassium Level 4.6, Chloride Level 109H, Carbon Dioxide Level 25, Anion Gap 9, Blood Urea Nitrogen 43H, Creatinine 1.69H, Estimat Glomerular Filtration Rate 43, BUN/Creatinine Ratio 25 , Glucose Level 175H, Calcium Level 8.8, Magnesium Level 2.1 03/04/18 11:28: Glucometer 203H 03/04/18 16:11: Glucometer 154H 03/04/18 23:31: Glucometer 242H 03/05/18 05:08: Glucometer 177H 03/05/18 17:06: Glucometer 215H 03/05/18 21:46: Glucometer 213H 03/06/18 05:43: Glucometer 184H 03/06/18 11:33: Glucometer 177H 03/06/18 13:00: White Blood Count 5.6, Red Blood Count 2.54L, Hemoglobin 7.4L, Hematocrit 23L, Mean Corpuscular Volume 91, Mean Corpuscular Hemoglobin 29, Mean Corpuscular Hemoglobin Concent 32, Red Cell Distribution Width 14.7H, Platelet Count 146, Mean Platelet Volume 10.5H, Sodium Level 142, Potassium Level 5.2H, Chloride Level 109H, Carbon Dioxide Level 26, Anion Gap 7, Blood Urea Nitrogen 52H, Creatinine 1.92H, Estimat Glomerular Filtration Rate 37, BUN/Creatinine Ratio 27 , Glucose Level 161H, Calcium Level 8.8, B-Type Natriuretic Peptide 485.4H 03/06/18 15:58: Glucometer 214H Assessment/Plan Assessment and Plan Spinal stenosis s/p C3-7 ACDF with C5 corpectomy done by DR Hardwick orthospcarina Postop anemia-declines Lovenox subcut SCDS for DVT prophylaxis Peripheral edema-diuresing Hyperkalemia f/u with PCP Card General debil secondary to Postop anemia associated with Coag Neg staph bacteremia improving s/p course of triple antibiotic Pyelonephritis by CT treated HCAP treated DM2 controlled HTN controlled CHF tretaed Hypoalbuminemia HLP GABRIELLA on CPAP Obesity Plan Continue PT/OT F/U with PCP and Cardiology Team Conference 03-08-18 Co-Morbidities that are continuing to impact the rehab process: (include details ) SALEEM AMATO MD Mar 06, 2018 21:23
[2018-03-06] MEDS: ROSUVASTATIN 5 MG (CRESTOR) TABLET PO SCH (21:34)
[2018-03-06] MEDS: MELATONIN 3 MG TABLET PO PRN (22:33)
[2018-03-07 05:10] VITALS: BP 116/70
[2018-03-07] MEDS: FERROUS SULF 325 MG (IRON) TAB PO SCH ×2 (06:46→16:34)
[2018-03-07] MEDS: PANTOPRAZOLE 40 MG (PROTONIX) TAB PO SCH (06:46)
[2018-03-07] MEDS: GLIMEPIRIDE 4 MG (AMARYL) TAB PO SCH (06:46)
[2018-03-07] MEDS: inSUlin ASPART (NovoLOG) 1 UNIT/0.01 ML (CHARGE PER UNIT) SC SCH ×4 (06:48→21:27)
[2018-03-07 07:03] LABS: MEAN PLATELET VOLUME 10.4 FL (7.4-10.4); RED BLOOD COUNT 2.52 10^6/uL (4.35-5.85); WHITE BLOOD COUNT 5.5 10^3/uL (4.3-11.0)
[2018-03-07 07:25] LABS: CALCIUM 8.6 MG/DL (8.5-10.1); CREATININE SERUM 1.93 MG/DL (0.60-1.30); POTASSIUM 4.9 MMOL/L (3.6-5.0)
[2018-03-07] MEDS: GABAPENTIN 600 MG (NEURONTIN) TAB PO SCH ×3 (08:16→20:47)
[2018-03-07] MEDS: amLODIPine 10 MG (NORVASC) TAB PO SCH (08:16)
[2018-03-07] MEDS: ASPIRIN E.C. 81 MG (ECOTRIN) TAB PO SCH (08:16)
[2018-03-07] MEDS: LORATADINE (CLARITIN) 10 MG TAB PO SCH (08:16)
[2018-03-07] MEDS: meTOprolol TARTRATE 50 MG (LOPRESSOR) TAB PO SCH ×2 (08:16→20:47)
[2018-03-07] MEDS: FUROSEMIDE 40 MG (LASIX) TAB PO SCH (08:17)
[2018-03-07] MEDS: hydrALAZINE (APRESOLINE) 25 MG TAB PO SCH ×3 (08:17→20:46)
[2018-03-07] MEDS: MICONAZOLE 2% POWDER (DESENEX AF) 90 GM TOP SCH ×2 (08:17→20:47)
--- NOTE | 2018-03-07 08:17 | Cardiology Progress Note ---
Subjective Date Seen by Provider: Mar 07, 2018 Time Seen by Provider: 08:15 Subjective/Events-last exam Patient is in bed, continues to c/o LE edema. Denies any CP or palpitations. Review of Systems General: No Night Sweats, No Fatigue, No Malaise HEENT: No Visual Changes, No Dysphasia Pulmonary: No Dyspnea, No Cough Cardiovascular: Edema; No: Chest Pain, Palpitations, Orthopnea Gastrointestinal: No: Nausea, Vomiting, Abdominal Pain Genitourinary: No Dysuria, No Frequency Musculoskeletal: neck pain, back pain Neurological: No: Weakness, Numbness, Change in speech, Confusion Objective-Cardiology Exam Last Set of Vital Signs Vital Signs 03/07/18 05:10 Temp 98.6 Pulse 81 Resp 18 B/P (MAP) 116/70 (85) Pulse Ox 94 O2 Delivery Room Air Capillary Refill : I&O Intake and Output 03/07/18 00:00 Intake Total 1620 ml Output Total 3225 ml Balance -1605 ml Intake Oral 1620 ml Output Urine Total 3225 ml # Bowel Movements 1 General: Alert, Oriented X3, Cooperative, No Acute Distress HEENT: Atraumatic, PERRLA, EOMI, Mucous Memb Moist/[place] Neck: Other (Neck brace) Lungs: Clear to Auscultation Heart: Regular Rate, Normal S1, Normal S2 Abdomen: Normal Bowel Sounds, Soft, No Tenderness Extremities: No Clubbing, Normal Pulses, Other (+ 2-3 edema BLE) Skin: No Rashes Neuro: Normal Speech, Strength at 5/5 X4 Ext, Other (generalized weakness) Psych/Mental Status: Mental Status NL Results Lab Laboratory Tests 03/06/18 13:00 03/07/18 06:50 A/P-Cardiology Admission Diagnosis Acute renal failure Peripheral edema Coronary artery disease Hypertension Assessment/Plan Generalized weakness and loss of energy secondary to complicated hospital stay after neck surgery, had pneumonia, bacteremia, received antibiotic and reporting improvement. Peripheral edema, +2-3. Continue on Lasix 40 mg once daily. Discussed limiting salt in his diet. Anemia, s/p transfusion. Anemia worse today, continue to monitor H/H closely. Echocardiogram was done at [facility] on February 14, 2018 showing moderate LVH, moderately dilated left atrium, diastolic dysfunction, estimated PA pressure 40 mmHg, ejection fraction 50-55 percent. Patient has refused to take Lovenox due to bleeding, using SCD. Acute on chronic renal insufficiency. Continue to monitor. History of coronary artery disease, history of mid LAD stenting using Alpine 3.0 18 mm done in June 2017, mild to moderate disease in the proximal portion of the LAD, moderate disease at the distal circumflex artery. Continue to monitor History of diabetes mellitus, diabetic neuropathy, followed and managed by primary care physician History of hyperlipidemia with intolerance to statin. Spinal stenosis, status post C3-7 ACDF with C5 corpectomy done by Dr. Hardwick History of carotid stenosis, last ultrasound was done in July 2017. Continue to monitor History of respiratory failure secondary to pneumonia. Improved. Continue to monitor Clinical Quality Measures DVT/VTE Risk/Contraindication: Risk Factor Score Per Nursin RFS Level Per Nursing on Admit: 4+=Very High CLAY SOMERS Mar 07, 2018 08:17
--- NOTE | 2018-03-07 08:17 | Progress Note (SOAP) ---
Subjective Time Seen by a Provider: 08:15 Subjective/Events-last exam Patient feeling okay today. Hemoglobin 7. GFR decreasing. Hold the arm today. Consult with hematology. Objective Exam Vital Signs Date Time Temp Pulse Resp B/P (MAP) Pulse Ox O2 Delivery O2 Flow Rate FiO2 03/07/18 05:10 98.6 81 18 116/70 (85) 94 Room Air 03/06/18 20:10 Room Air 03/06/18 14:42 98.8 82 16 144/80 (101) 97 Room Air 03/06/18 08:43 Room Air 03/06/18 08:35 88 18 136/76 (96) 96 Room Air I & O 03/07/18 07:00 Intake Total 1720 ml Output Total 3925 ml Balance -2205 ml Capillary Refill : General Appearance: No Apparent Distress, WD/WN HEENT: Normal ENT Inspection Respiratory: No Accessory Muscle Use, No Respiratory Distress Cardiovascular: Regular Rate, Rhythm Results Lab Laboratory Tests 03/06/18 13:00 03/07/18 06:50 Laboratory Tests 03/06/18 11:33: Glucometer 177H 03/06/18 13:00: White Blood Count 5.6, Red Blood Count 2.54L, Hemoglobin 7.4L, Hematocrit 23L, Mean Corpuscular Volume 91, Mean Corpuscular Hemoglobin 29, Mean Corpuscular Hemoglobin Concent 32, Red Cell Distribution Width 14.7H, Platelet Count 146, Mean Platelet Volume 10.5H, Sodium Level 142, Potassium Level 5.2H, Chloride Level 109H, Carbon Dioxide Level 26, Anion Gap 7, Blood Urea Nitrogen 52H, Creatinine 1.92H, Estimat Glomerular Filtration Rate 37, BUN/Creatinine Ratio 27 , Glucose Level 161H, Calcium Level 8.8, B-Type Natriuretic Peptide 485.4H 03/06/18 15:58: Glucometer 214H 03/06/18 21:33: Glucometer 144H 03/07/18 06:36: Glucometer 157H 03/07/18 06:50: White Blood Count 5.5, Red Blood Count 2.52L, Hemoglobin 7.0L, Hematocrit 23L, Mean Corpuscular Volume 91, Mean Corpuscular Hemoglobin 28, Mean Corpuscular Hemoglobin Concent 31L, Red Cell Distribution Width 15.0H, Platelet Count 155, Mean Platelet Volume 10.4, Sodium Level 142, Potassium Level 4.9, Chloride Level 109H, Carbon Dioxide Level 24, Anion Gap 9, Blood Urea Nitrogen 54H, Creatinine 1.93H, Estimat Glomerular Filtration Rate 37, BUN/Creatinine Ratio 28 , Glucose Level 147H, Calcium Level 8.6, Magnesium Level 2.0, B-Type Natriuretic Peptide 379.6H Assessment/Plan Assessment/Plan Assess & Plan/Chief Complaint Diabetes. Coagulase negative bacteremia. Recent cervical surgery. Myopathy. Weakness. Renal insufficiency. . 03/01/18. Diabetes doing better. Coagulase negative bacteremia. Recent cervical surgery. Myopathy. Weakness. Renal insufficiency.. . To 03/02/18. Weakness. Renal insufficiency. Coagulase negative bacteremia. Hemoglobin 6.7. Patient to get 1 unit of packed red blood cells today 03/03/18: Weakness. Renal insufficiency. Anemia, Hemoglobin 7.7 DM. GABRIELLA.. . 03/06/18. Weakness. Renal insufficiency. Anemia. Diabetes. GABRIELLA. Patient gained 8 pounds.. . 03/07/18. Weakness. Renal insufficiency. Anemia. Diabetes. Patient weight stabilized today. Patient more anemic. GFR decreasing Clinical Quality Measures DVT/VTE Risk/Contraindication: Risk Factor Score Per Nursin RFS Level Per Nursing on Admit: 4+=Very High MARIIA SIM DO Mar 07, 2018 08:17
[2018-03-07] MEDS: LOSARTAN 100 MG (COZAAR) TABLET PO SCH (08:18)
[2018-03-07] MEDS: MENTHOL/ZINC OXIDE (CALMOSEPTINE) 113 GM TUBE TOP SCH ×2 (08:18→21:28)
--- NOTE | 2018-03-07 10:05 | Physical Therapy Daily Note ---
PT Daily Note-Current Subjective Pt asleep Supine in bed upon arrival. Pt agrees to PT. Nurse reports continued decrease in Hemoglobin (7 right now). Dr Kumar to see pt. Pain Numeric Pain Scale: 5-Moderate Pain Location: Right, Left Location Body Site: Thigh Pain Description: Tightness Mental Status Patient Orientation: Person, Place, Time, Situation Attachments: Other-See Comments (Cervical collar) Transfers Functional [place] Measure 0=Not Assessed/NA 4=Minimal Assistance 1=Total Assistance 5=Supervision or Setup 2=Maximal Assistance 6=Modified [place] 3=Moderate Assistance 7=Complete IndependenceIRFPAI Quality Coding Scale 6 Independent with activity with or without an assistive device 5 Patient requires set up or clean up by helper. Patient completes activity by themselves 4 Supervision or touching assist (CGA). [place] provide cues , steadying assist 3 The helper provides less than half the effort to complete the activity 2 The helper provides more than half the effort to complete the activity 1 Dependent. The helper does all the effort to complete an activity 7 Patient refused to complete or attempt activity 9 The patient did not perform the activity before the current illness or injury 88 Not attempted due to Medical conditions or safety concerns Scootin Rollin Supine to/from Sit: 5 Sit to/from Stand: 5 Sit to Lying (QC): 5 Sit to Stand (QC): 5 Weight Bearing Right Lower Extremity: Right Full Weight Bearing Left Lower Extremity: Left Full Weight Bearing Gait Training Does the Patient Walk?: Yes Distance (FIM): 3=150 ft Distance: 175' Walk 10 feet (QC): 6 Walk 50 ft with 2 Turns(QC): 6 Walk 150 ft (QC): 6 Gait Level of Assist: 6 Gait Persons Needed: 1 Gait Assistive Device: FWW REINFORCEMENT MAKER raised pt's FWW up to accommodate for pt's better posture. Wheelchair Training Does the Pt Use a Wheelchair?: No Exercises NuStep Minutes: 20 NuStep Workload: 6 Treatments Pt transfers from bed to Standing using FWW then ambulates to restroom. After finishing, pt ambulates to recliner to don tennis shoes for ambulation in hallway. Pt needs REINFORCEMENT MAKER's assistance with donning shoes. Pt uses NuStep for 20m at WL 6 then takes short rest. Pt reports tightness in hamstrings so transfers to supine on Therapy mat for REINFORCEMENT MAKER to stretch B hamstrings. Pt returns to room at end of tx where OT awaits for tx. Pt has all needs met. Assessment Current Status: Good Progress Pt is wanting to discharge soon to go back to work. PT Short Term Goals Short Term Goals Time Frame: Mar 03, 2018 Gait (FIM): 2 Gait Distance Comment: 100' Gait Level of Assist: 4 Gait Assistive Device: FWW Wheelchair Distance: 150'x3 PT Internet Marketer Goals Prison Goals PT Prison Goals Time Frame: Mar 17, 2018 Transfers (B,C,W/C) (FIM): 5 Sit to Lying (QC): 4 Lying-Sitting on Side/Bed(QC): 4 Sit to Stand (QC): 4 Rollin Roll Left to Right (QC): 4 Chair/[id number]-Cepjz Xfer(QC): 4 Car Transfer (QC): 4 Gait (FIM): 5 Distance: 150' Walk 10 feet (QC): 4 Walk 10ft-Uneven Surface(QC): 4 Walk 50ft with 2 Turns (QC): 4 Walk 150 ft (QC): 4 Gait Level of Assist: 5 Gait Assistive Device: FWW Stairs (FIM): 2 # of Steps: 4 1 Step (curb) (QC): 4 4 Steps (QC): 4 Stairs Level Of Assist: 4 PT Plan Problem List Problem List: Activity Tolerance, Gait Treatment/Plan Treatment Plan: Continue Plan of Care Treatment Plan: Bed Mobility, Education, Functional Activity [place], Functional Strength, Group Therapy, Gait, Safety, Therapeutic Exercise, Transfers Treatment Duration: Mar 17, 2018 Frequency: At least 5 of 7 days/Wk (IRF) Estimated Hrs Per Day: 1.5 hours per day Patient and/or Family Agrees t: Yes Safety Risks/Education Patient Education: Gait Training, Transfer Techniques, Correct Positioning, Safety Issues Teaching Recipient: Patient Teaching Methods: Discussion Response to Teaching: Verbalize Understanding Time/GCodes Time In: 900 Time Out: 1000 Total Billed Treatment Time: 60 Total Billed Treatment 1, GT (15m), FA (15m) & EX x2 (30m) G Codes Necessary: HILARY Gomez REINFORCEMENT MAKER Mar 07, 2018 10:05
[2018-03-07 11:41] LABS: ABSOLUTE RETIC # 75 10e9/L (24-90); BASOPHILS % (AUTO) 0 % (0-10); EOSINOPHILS # (AUTO) 0.3 10^3/uL (0.0-0.3); EOSINOPHILS % (AUTO) 5 % (0-10); HEMATOCRIT 25 % (40-54); HEMOGLOBIN 7.6 G/DL (13.3-17.7); LYMPHOCYTES # (AUTO) 0.8 X 10^3 (1.0-4.0); LYMPHOCYTES % (AUTO) 12 % (12-44); MEAN CORPUSCULAR HEMOGLOBIN 28 PG (25-34); MEAN CORPUSCULAR HGB CONC 31 G/DL (32-36); MEAN CORPUSCULAR VOLUME 91 FL (80-99); MEAN PLATELET VOLUME 10.4 FL (7.4-10.4); MONOCYTES # (AUTO) 0.6 X 10^3 (0.0-1.0); MONOCYTES % (AUTO) 9 % (0-12); NEUTROPHILS # (AUTO) 4.6 X 10^3 (1.8-7.8); NEUTROPHILS % (AUTO) 73 % (42-75); PLATELET COUNT 170 10^3/uL (130-400); RED BLOOD COUNT 2.74 10^6/uL (4.35-5.85); RED CELL DISTRIBUTION WIDTH 14.9 % (10.0-14.5); RETICULOCYTE % 2.72 % (0.50-2.40); WHITE BLOOD COUNT 6.3 10^3/uL (4.3-11.0)
--- NOTE | 2018-03-07 11:47 | Occupational Ther Daily Note ---
OT Current Status-Daily Note Subjective No pain reported. Appearance Pt. is up with PT. Declines showering this date as he did so yesterday. Mental Status/Objective Patient Orientation: Person, Place Functional [place] Measure 0=Not Assessed/NA 4=Minimal Assistance 1=Total Assistance 5=Supervision or Setup 2=Maximal Assistance 6=Modified [place] 3=Moderate Assistance 7=Complete [place] ADL-Treatment Functional [place] Measure 0=Not Assessed/NA 4=Minimal Assistance 1=Total Assistance 5=Supervision or Setup 2=Maximal Assistance 6=Modified [place] 3=Moderate Assistance 7=Complete IndependenceIRFPAI Quality Coding Scale 6 Independent with activity with or without an assistive device 5 Patient requires set up or clean up by helper. Patient completes activity by themselves 4 Supervision or touching assist (CGA). [place] provide cues , steadying assist 3 The helper provides less than half the effort to complete the activity 2 The helper provides more than half the effort to complete the activity 1 Dependent. The helper does all the effort to complete an activity 7 Patient refused to complete or attempt activity 9 The patient did not perform the activity before the current illness or injury 88 Not attempted due to Medical conditions or safety concerns Transfers (B, C, W/C) (FIM): 4 (Min assist out of low chair. SBA out of chair that is elevated.) Other Treatment Pt. ambulated to therapy gym with SBA. Completed armbike x 15 minutes with several brief rest breaks. Tolerated at minimal resistance for overall UE strengthening/endurance. Pt. states that he is fatigued. Pt. requested to go outside. Pt. encouraged to ambulate as far as he can with walker. Pt. able to ambulate approximately another 15 feet but requests wheelchair, stating that he is "wore out" from PT. Went outside for fresh air with OT pushing chair. While outside, pt. completed series of hand exercises with making fist, completing wrist extension, coordination tasks with touching thumb to fingers, and forearm supination/pronation. Pt. and OT also talked in depth regarding pt' s progress and discharge planning. Pt. is still insistent on going to work soon after discharge home. Pt. reports wanting to go home, but is concerned due to amount of swelling in legs and overall. Pt. is encouraged to participate more when asked. Pt. states that he does, and that he is always very fatigued after treatment. OT pushes pt. back to therapy gym. Talked in depth regarding home equipment. Pt. shown toilet risers and given magazine to look at for equipment needs. Stood at parallel bar with min assist for sit- stand, and cues to weight shift, pick up worker feet. Pt. stood approximately 3 minutes and rocked back and forth on feet, marched in place, etc..... Requested to sit back down. Pt. propelled feet in wheelchair while OT pushed him. Stood and transferred to chair with walker with CGA. Pt. able to get feet into bed. All needs met. Education OT Patient Education: Correct positioning, Exercise program, Modified ADL techniques, Progress toward Goal/Update tx plan, Purpose of tx/functional activities, Reviewed precautions, Rehab process, Transfer techniques, Use of adapted equipment, W/C management Teaching Recipient: Patient Teaching Methods: Demonstration, Discussion Response to Teaching: Verbalize Understanding, Return Demonstration OT Short Term Goals Short Term Goals Time Frame: Mar 03, 2018 Bathing(FIM): 4 Lower Body Dressing(FIM): 4 Toileting(FIM): 4 Toilet/Commode Transfer(FIM): 4 Additional Short Term Goals: 2-Verbalize Understanding, 3-ImproveStrength/[place] 1=Demonstrate adherence to instructed precautions during ADL tasks. 2=Patient will verbalize/demonstrate understanding of assistive devices/ modifications for ADL. 3=Patient will improve strength/tolerance for activity to enable patient to perform ADL's. OT Air Conditioning Mechanic Industrial Goals Air Conditioning Mechanic Industrial Goals Time Frame: Mar 17, 2018 Eating (FIM): 7 Eating (QC): 6 Groomin Oral Hygiene (QC): 6 Bathing(FIM): 5 Shower/Bathe Self (QC): 5 Upper Body Dressing(FIM): 6 Upper Body Dressing (QC): 6 Lower Body Dressing(FIM): 5 Lower Body Dressing (QC): 5 On/Off Footwear (QC): 5 Toileting(FIM): 5 Toileting Hygiene (QC): 5 Toilet/Commode Transfer(FIM): 5 Toilet/Commode Transfer (QC): 5 Shower Transfer(FIM): 5 Additional Goals: 1-Demonstrate ADL Tasks, 2-Verbalize Understanding, 3- ImproveStrength/[place] 1=Demonstrate adherence to instructed precautions during ADL tasks. 2=Patient will verbalize/demonstrate understanding of assistive devices/ modifications for ADL. 3=Patient will improve strength/tolerance for activity to enable patient to perform ADL's. OT Education/Plan Problem List/Assessment Assessment: Decreased Activ Tolerance, Decreased UE Strength, Dependent Transfers, Impaired Bed Mobility, Impaired Funct Balance, Impaired I ADL's, Impaired Self-Care Skills, Restricted Funct UE ROM Discharge Recommendations Plan/Recommendations: Continue POC Therapy D/C Recommendations: Home w/ Family Support, Occupational Therapy Home Care, Meals on Wheels, Scheduled Assistance Equpiment Recommendations-D/C: Extended Bath Bench, Hip Kit Treatment Plan/Plan of Care Treatment,Training & Education: Yes Patient would benefit from OT for education, treatment and training to promote independence in ADL's, mobility, safety and/or upper extremity function for ADL' s. Plan of Care: ADL Retraining, Functional Mobility, Group Exercise/Act as Ind, UE Funct Exercise/Act Treatment Duration: Mar 17, 2018 Frequency: Modified Program (IRF) (25/12) Estimated Hrs Per Day: 1.5 hours per day Agreement: Yes Rehab Potential: Good Time/GCodes Start Time: 10:00 Stop Time: 11:30 Total Time Billed (hr/min): 90 Billed Treatment Time 1, Ex x 45minutes, FA x 45minutes RICHARD LING OT Mar 07, 2018 11:47
--- NOTE | 2018-03-07 11:59 | PM & R (SOAP) Progress Note ---
Subjective This was a face to face visit with the patient. Date Seen by Provider: Mar 07, 2018 Time Seen by Provider: 11:45 Subjective/Events-last exam Patient was seen in his room this AM Patient H&H dropping DR osman( Hem and [place]) has ordered f/u labs.Patient SBA for transfers Date Identified: Mar 07, 2018 Time Identified: 11:40 Medication Intervention: Supplement/replacement to be provided for anemia Review of Systems Cardiovascular: Edema Objective Physician Exam Last Set of Vital Signs Vital Signs Date Time Temp Pulse Resp B/P (MAP) Pulse Ox O2 Delivery O2 Flow Rate FiO2 03/07/18 08:50 Room Air 03/07/18 05:10 98.6 81 18 116/70 (85) 94 Capillary Refill : I&O Intake and Output 03/07/18 00:00 Intake Total 1620 ml Output Total 3225 ml Balance -1605 ml Intake Oral 1620 ml Output Urine Total 3225 ml # Bowel Movements 1 General: Alert, Oriented X3, Cooperative, No Acute Distress HEENT: Atraumatic, PERRLA, EOMI, Mucous Memb Moist/[place] Neck: Other (Neck brace) Lungs: Clear to Auscultation Heart: Regular Rate, Normal S1, Normal S2 Abdomen: Normal Bowel Sounds, Soft, No Tenderness Extremities: No Clubbing, Normal Pulses, Other (+ 2-3 edema BLE) Skin: No Rashes Neuro: Normal Speech, Strength at 5/5 X4 Ext, Other (generalized weakness) Psych/Mental Status: Mental Status NL Results Lab Data Laboratory Tests 03/04/18 16:11: Glucometer 154H 03/04/18 23:31: Glucometer 242H 03/05/18 05:08: Glucometer 177H 03/05/18 17:06: Glucometer 215H 03/05/18 21:46: Glucometer 213H 03/06/18 05:43: Glucometer 184H 03/06/18 11:33: Glucometer 177H 03/06/18 13:00: White Blood Count 5.6, Red Blood Count 2.54L, Hemoglobin 7.4L, Hematocrit 23L, Mean Corpuscular Volume 91, Mean Corpuscular Hemoglobin 29, Mean Corpuscular Hemoglobin Concent 32, Red Cell Distribution Width 14.7H, Platelet Count 146, Mean Platelet Volume 10.5H, Sodium Level 142, Potassium Level 5.2H, Chloride Level 109H, Carbon Dioxide Level 26, Anion Gap 7, Blood Urea Nitrogen 52H, Creatinine 1.92H, Estimat Glomerular Filtration Rate 37, BUN/Creatinine Ratio 27 , Glucose Level 161H, Calcium Level 8.8, B-Type Natriuretic Peptide 485.4H 03/06/18 15:58: Glucometer 214H 03/06/18 21:33: Glucometer 144H 03/07/18 06:36: Glucometer 157H 03/07/18 06:50: White Blood Count 5.5, Red Blood Count 2.52L, Hemoglobin 7.0L, Hematocrit 23L, Mean Corpuscular Volume 91, Mean Corpuscular Hemoglobin 28, Mean Corpuscular Hemoglobin Concent 31L, Red Cell Distribution Width 15.0H, Platelet Count 155, Mean Platelet Volume 10.4, Sodium Level 142, Potassium Level 4.9, Chloride Level 109H, Carbon Dioxide Level 24, Anion Gap 9, Blood Urea Nitrogen 54H, Creatinine 1.93H, Estimat Glomerular Filtration Rate 37, BUN/Creatinine Ratio 28 , Glucose Level 147H, Calcium Level 8.6, Magnesium Level 2.0, B-Type Natriuretic Peptide 379.6H 03/07/18 11:30: 03/07/18 11:36: Glucometer 164H Assessment/Plan Assessment and Plan spinal stenosis s/p C3-7 ACDF with C5 corpectomy done by DR Valderrama orthospine Postop anemia Hem to f/u Peripheral edema improving Hyperkalemia resolved General debil secondary to postop anemia associated with coag neg staph bacteremia improving s/p course of triple antibiotics Pyelonephritis by CT treated HCAP treated DM 2 controlled HTN controlled CHF treated Hypoalbuminemia HLP GABRIELLA on CPAP Obesity Plan Continue PT/OT F/U with PCP and Hem Team Conference tomorrow Co-Morbidities that are continuing to impact the rehab process: (include details ) SALEEM AMATO MD Mar 07, 2018 11:59
[2018-03-07 12:22] LABS: EOSINOPHILS % (MANUAL) 6 %; LYMPHOCYTES % (MANUAL) 10 %; MONOCYTES % (MANUAL) 5 %; NEUTROPHILS % (MANUAL) 79 %
[2018-03-07 13:50] VITALS: BP 135/80
--- NOTE | 2018-03-07 14:45 | Physical Therapy Daily Note ---
PT Daily Note-Current Subjective Pt laying supine in bed. Pt reluctantly agrees to see PT this afternoon. Pt reports feeling tired. Pain Location: Right, Left Location Body Site: Thigh Pain Description: Ache, Tightness Mental Status Patient Orientation: Person, Place, Time, Situation Attachments: Other-See Comments (Cervical Collar) Transfers Functional [place] Measure 0=Not Assessed/NA 4=Minimal Assistance 1=Total Assistance 5=Supervision or Setup 2=Maximal Assistance 6=Modified [place] 3=Moderate Assistance 7=Complete IndependenceIRFPAI Quality Coding Scale 6 Independent with activity with or without an assistive device 5 Patient requires set up or clean up by helper. Patient completes activity by themselves 4 Supervision or touching assist (CGA). [place] provide cues , steadying assist 3 The helper provides less than half the effort to complete the activity 2 The helper provides more than half the effort to complete the activity 1 Dependent. The helper does all the effort to complete an activity 7 Patient refused to complete or attempt activity 9 The patient did not perform the activity before the current illness or injury 88 Not attempted due to Medical conditions or safety concerns Scootin Rollin Supine to/from Sit: 5 Sit to/from Stand: 5 Sit to Lying (QC): 5 Sit to Stand (QC): 5 Weight Bearing Right Lower Extremity: Right Full Weight Bearing Left Lower Extremity: Left Full Weight Bearing Gait Training Does the Patient Walk?: Yes Distance (FIM): 3=150 ft Distance: 150' Walk 10 feet (QC): 5 Walk 50 ft with 2 Turns(QC): 5 Walk 150 ft (QC): 5 Gait Level of Assist: 5 Gait Persons Needed: 1 Gait Assistive Device: FWW Wheelchair Training Does the Pt Use a Wheelchair?: No Exercises Supine Ex: Ankle pumps, Quad Set, Straight leg raise Supine Reps: 20 Seated Therapy Exercises: Long arc quads, Hip flexion, Kicking activity Seated Reps: 20 Treatments Pt transfers from bed to standing using FWW at SBA. Pt ambulates to restroom then in hallway after finished. Pt completes Supine Ex until feeling SOA so transfers to EOB. Pt completes Seated Ex at EOB then ambulates back to room to rest. Pt removes Cervical Collar and shoes to lay Supine in bed to rest with all needs met. Assessment Current Status: Good Progress Pt demonstrates lack of motivation during tx. Pt reports SOA, Nurse checks at end of tx and 95%. PT Short Term Goals Short Term Goals Time Frame: Mar 03, 2018 Gait (FIM): 2 Gait Distance Comment: 100' Gait Level of Assist: 4 Gait Assistive Device: FWW Wheelchair Distance: 150'x3 PT Jail Goals Jail Goals PT Jail Goals Time Frame: Mar 17, 2018 Transfers (B,C,W/C) (FIM): 5 Sit to Lying (QC): 4 Lying-Sitting on Side/Bed(QC): 4 Sit to Stand (QC): 4 Rollin Roll Left to Right (QC): 4 Chair/Rlr-et-Goayv Xfer(QC): 4 Car Transfer (QC): 4 Gait (FIM): 5 Distance: 150' Walk 10 feet (QC): 4 Walk 10ft-Uneven Surface(QC): 4 Walk 50ft with 2 Turns (QC): 4 Walk 150 ft (QC): 4 Gait Level of Assist: 5 Gait Assistive Device: FWW Stairs (FIM): 2 # of Steps: 4 1 Step (curb) (QC): 4 4 Steps (QC): 4 Stairs Level Of Assist: 4 PT Plan Problem List Problem List: Activity Tolerance, Functional Strength, Gait Treatment/Plan Treatment Plan: Continue Plan of Care Treatment Plan: Bed Mobility, Education, Functional Activity [place], Functional Strength, Group Therapy, Gait, Safety, Therapeutic Exercise, Transfers Treatment Duration: Mar 17, 2018 Frequency: At least 5 of 7 days/Wk (IRF) Estimated Hrs Per Day: 1.5 hours per day Patient and/or Family Agrees t: Yes Safety Risks/Education Patient Education: Gait Training, Transfer Techniques, Correct Positioning, Safety Issues Teaching Recipient: Patient Teaching Methods: Discussion Response to Teaching: Verbalize Understanding Time/GCodes Time In: 1315 Time Out: 1345 Total Billed Treatment Time: 30 Total Billed Treatment 1, FA (10m) & EX (20m) G Codes Necessary: HILARY Gomez PTA Mar 07, 2018 14:45
--- NOTE | 2018-03-07 16:10 | Cardiology Progress Note ---
Subjective Date Seen by Provider: Mar 07, 2018 Time Seen by Provider: 16:08 Subjective/Events-last exam Patient is laying down in bed, still having pedal edema, denied any chest pain, have worsening anemia Review of Systems General: No Chills, No Night Sweats, No Fatigue, No Malaise, No Appetite, No Other HEENT: No Head Aches, No Visual Changes, No Eye Pain, No Ear Pain, No Dysphasia , No Sinus Congestion, No Post Nasal Drip, No Sore Throat, No Other Pulmonary: Dyspnea; No Cough, No Pleuritic Chest Pain, No Other Cardiovascular: Edema; No: Chest Pain, Palpitations, Orthopnea, Paroxysmal Noc. Dyspnea, Lt Headedness, Other Objective-Cardiology Exam Last Set of Vital Signs Vital Signs 03/07/18 03/07/18 05:10 13:50 Temp 98.6 Pulse 82 Resp 18 B/P (MAP) 135/80 (98) Pulse Ox 95 O2 Delivery Room Air Capillary Refill : I&O Intake and Output 03/07/18 00:00 Intake Total 1620 ml Output Total 3225 ml Balance -1605 ml Intake Oral 1620 ml Output Urine Total 3225 ml # Bowel Movements 1 General: Alert, Oriented X3, Cooperative, No Acute Distress HEENT: Atraumatic, PERRLA, EOMI, Mucous Memb Moist/[place] Neck: Other (Neck brace) Lungs: Clear to Auscultation Heart: Regular Rate, Normal S1, Normal S2 Abdomen: Normal Bowel Sounds, Soft, No Tenderness Extremities: No Clubbing, Normal Pulses, Other (+ 2-3 edema BLE) Skin: No Rashes Neuro: Normal Speech, Strength at 5/5 X4 Ext, Other (generalized weakness) Psych/Mental Status: Mental Status NL Results Lab Laboratory Tests 03/07/18 06:50 03/07/18 11:30 A/P-Cardiology Admission Diagnosis Acute renal failure Peripheral edema Coronary artery disease Hypertension Assessment/Plan Generalized weakness and loss of energy secondary to complicated hospital stay after neck surgery, had pneumonia, bacteremia, received antibiotic and reporting improvement. Peripheral edema, +2-3. Acute on chronic renal failure, continue on limiting salt intake and diuretics and monitor renal function closely Anemia, s/p transfusion. Anemia worse today, consider hematology consultation, transfuse one unit of packed RBCs Echocardiogram was done at [facility] on February 14, 2018 showing moderate LVH, moderately dilated left atrium, diastolic dysfunction, estimated PA pressure 40 mmHg, ejection fraction 50-55 percent. Patient has refused to take Lovenox due to bleeding, using SCD. Acute on chronic renal insufficiency. Continue to monitor. History of coronary artery disease, history of mid LAD stenting using Alpine 3.0 18 mm done in June 2017, mild to moderate disease in the proximal portion of the LAD, moderate disease at the distal circumflex artery. Continue to monitor History of diabetes mellitus, diabetic neuropathy, followed and managed by primary care physician History of hyperlipidemia with intolerance to statin. Spinal stenosis, status post C3-7 ACDF with C5 corpectomy done by Dr. Hardwick History of carotid stenosis, last ultrasound was done in July 2017. Continue to monitor History of respiratory failure secondary to pneumonia. Improved. Continue to monitor Clinical Quality Measures DVT/VTE Risk/Contraindication: Risk Factor Score Per Nursin RFS Level Per Nursing on Admit: 4+=Very High KAREN YANG MD Mar 07, 2018 16:09
[2018-03-07] MEDS ORDERED: NS IV 500 ML 500 ML ONE (17:27)
[2018-03-07 18:26] VITALS: BP 127/80
[2018-03-07 20:43] VITALS: BP 150/83
[2018-03-07] MEDS: MELATONIN 3 MG TABLET PO PRN (20:46)
[2018-03-07] MEDS: ROSUVASTATIN 5 MG (CRESTOR) TABLET PO SCH (20:46)
[2018-03-07 20:58] VITALS: BP 144/80
[2018-03-07 23:55] VITALS: BP 127/55
[2018-03-08 04:55] LABS: HEMOGLOBIN 7.5 G/DL (13.3-17.7); RED BLOOD COUNT 2.59 10^6/uL (4.35-5.85); RED CELL DISTRIBUTION WIDTH 14.8 % (10.0-14.5); WHITE BLOOD COUNT 5.8 10^3/uL (4.3-11.0)
[2018-03-08 05:10] LABS: CALCIUM 8.7 MG/DL (8.5-10.1); CREATININE SERUM 1.89 MG/DL (0.60-1.30); POTASSIUM 5.3 MMOL/L (3.6-5.0)
[2018-03-08] MEDS: inSUlin ASPART (NovoLOG) 1 UNIT/0.01 ML (CHARGE PER UNIT) SC SCH ×4 (05:20→20:37)
[2018-03-08 05:55] VITALS: BP 112/69
[2018-03-08] MEDS: GLIMEPIRIDE 4 MG (AMARYL) TAB PO SCH (06:07)
[2018-03-08] MEDS: FERROUS SULF 325 MG (IRON) TAB PO SCH ×2 (06:07→16:51)
[2018-03-08] MEDS: PANTOPRAZOLE 40 MG (PROTONIX) TAB PO SCH (06:08)
--- NOTE | 2018-03-08 07:41 | PM & R (SOAP) Progress Note ---
Subjective This was a face to face visit with the patient. Date Seen by Provider: Mar 08, 2018 Time Seen by Provider: 07:20 Subjective/Events-last exam Patient was seen in his room this AM Patient SBA with transfers still having Difficulty with dropping HGB discussed with RN Had another unit of PRBCS Serum K elevated and BUN/CR on rise which limits how much Diuretic can be used for edema Date Identified: Mar 08, 2018 Time Identified: 07:30 Medication Intervention: Diuretics being adjusted Objective Physician Exam Last Set of Vital Signs Vital Signs Date Time Temp Pulse Resp B/P (MAP) Pulse Ox O2 Delivery O2 Flow Rate FiO2 03/08/18 05:55 98.6 73 20 112/69 (83) 95 NIV CPAP 03/07/18 21:00 93 Capillary Refill : I&O Intake and Output 03/08/18 00:00 Intake Total 1644 ml Output Total 2600 ml Balance -956 ml Intake Oral 1644 ml Output Urine Total 2600 ml # Voids 3 # Bowel Movements 4 General: Alert, Oriented X3, Cooperative, No Acute Distress HEENT: Atraumatic, PERRLA, EOMI, Mucous Memb Moist/[place] Neck: Other (Neck brace) Lungs: Clear to Auscultation Heart: Regular Rate, Normal S1, Normal S2 Abdomen: Normal Bowel Sounds, Soft, No Tenderness Extremities: No Clubbing, Normal Pulses, Other (+ 2-3 edema BLE) Skin: No Rashes Neuro: Normal Speech, Strength at 5/5 X4 Ext, Other (generalized weakness) Psych/Mental Status: Mental Status NL Results Lab Data Laboratory Tests 03/05/18 17:06: Glucometer 215H 03/05/18 21:46: Glucometer 213H 03/06/18 05:43: Glucometer 184H 03/06/18 11:33: Glucometer 177H 03/06/18 13:00: White Blood Count 5.6, Red Blood Count 2.54L, Hemoglobin 7.4L, Hematocrit 23L, Mean Corpuscular Volume 91, Mean Corpuscular Hemoglobin 29, Mean Corpuscular Hemoglobin Concent 32, Red Cell Distribution Width 14.7H, Platelet Count 146, Mean Platelet Volume 10.5H, Sodium Level 142, Potassium Level 5.2H, Chloride Level 109H, Carbon Dioxide Level 26, Anion Gap 7, Blood Urea Nitrogen 52H, Creatinine 1.92H, Estimat Glomerular Filtration Rate 37, BUN/Creatinine Ratio 27 , Glucose Level 161H, Calcium Level 8.8, B-Type Natriuretic Peptide 485.4H 03/06/18 15:58: Glucometer 214H 03/06/18 21:33: Glucometer 144H 03/07/18 06:36: Glucometer 157H 03/07/18 06:50: White Blood Count 5.5, Red Blood Count 2.52L, Hemoglobin 7.0L, Hematocrit 23L, Mean Corpuscular Volume 91, Mean Corpuscular Hemoglobin 28, Mean Corpuscular Hemoglobin Concent 31L, Red Cell Distribution Width 15.0H, Platelet Count 155, Mean Platelet Volume 10.4, Sodium Level 142, Potassium Level 4.9, Chloride Level 109H, Carbon Dioxide Level 24, Anion Gap 9, Blood Urea Nitrogen 54H, Creatinine 1.93H, Estimat Glomerular Filtration Rate 37, BUN/Creatinine Ratio 28 , Glucose Level 147H, Calcium Level 8.6, Magnesium Level 2.0, B-Type Natriuretic Peptide 379.6H 03/07/18 11:30: White Blood Count 6.3, Red Blood Count 2.74L, Hemoglobin 7.6L, Hematocrit 25L, Mean Corpuscular Volume 91, Mean Corpuscular Hemoglobin 28, Mean Corpuscular Hemoglobin Concent 31L, Red Cell Distribution Width 14.9H, Platelet Count 170, Mean Platelet Volume 10.4, Neutrophils (%) (Auto) 73, Lymphocytes (%) (Auto) 12 , Monocytes (%) (Auto) 9, Eosinophils (%) (Auto) 5, Basophils (%) (Auto) 0, Neutrophils # (Auto) 4.6, Lymphocytes # (Auto) 0.8L, Monocytes # (Auto) 0.6, Eosinophils # (Auto) 0.3, Basophils # (Auto) 0.0, Neutrophils % (Manual) 79, Lymphocytes % (Manual) 10, Monocytes % (Manual) 5, Eosinophils % (Manual) 6, Absolute Reticulocyte Count 75, Percent Reticulocyte Count 2.72H, Iron Level 41 , Total Iron Binding Capacity 246L, Unsaturated Iron Binding Capacity 205, Transferrin % Saturation 17, Ferritin 224.0 03/07/18 11:36: Glucometer 164H 03/07/18 16:33: Glucometer 201H 03/07/18 20:51: Glucometer 242H 03/08/18 04:45: White Blood Count 5.8, Red Blood Count 2.59L, Hemoglobin 7.5L, Hematocrit 23L, Mean Corpuscular Volume 90, Mean Corpuscular Hemoglobin 29, Mean Corpuscular Hemoglobin Concent 32, Red Cell Distribution Width 14.8H, Platelet Count 167, Mean Platelet Volume 10.0, Sodium Level 140, Potassium Level 5.3H, Chloride Level 108H, Carbon Dioxide Level 22, Anion Gap 10, Blood Urea Nitrogen 56H, Creatinine 1.89H, Estimat Glomerular Filtration Rate 38, BUN/Creatinine Ratio 30 , Glucose Level 147H, Calcium Level 8.7 Assessment/Plan Assessment and Plan Spinal senosis s/p C3-7 ACDF with C5 corpectomy done by DR Hardwick [facility] Postop anemia Peripheral edema Hyperkalemia General debil secondary to postop anemia associated with coag neg staph bacteremia improved s/p course of triple antibiotic Pyelonephritis by CT treated HCAP treated DM 2 controlled HTN controleed CHF treted Hypoalbuminemia HLP GABRIELLA on Cpap Obestty Plan Continue PT/OT F/U with PCP and cardiology and Hem Team Conference later today see report for full functional update and POC and ELOS Co-Morbidities that are continuing to impact the rehab process: (include details ) SALEEM AMATO MD Mar 08, 2018 07:41
--- NOTE | 2018-03-08 07:49 | Progress Note (SOAP) ---
Subjective Time Seen by a Provider: 07:48 Subjective/Events-last exam Patient has no complaints today. Patient getting around with walker. Patient received a unit of blood yesterday. 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 Objective Exam Vital Signs Date Time Temp Pulse Resp B/P (MAP) Pulse Ox O2 Delivery O2 Flow Rate FiO2 03/08/18 05:55 98.6 73 20 112/69 (83) 95 NIV CPAP 03/07/18 23:55 98.6 77 127/55 03/07/18 21:00 Room Air 93 03/07/18 20:58 98.6 89 144/80 03/07/18 20:43 98.4 83 20 150/83 93 Room Air 03/07/18 18:26 127/80 (96) 03/07/18 17:10 98.4 81 18 94 Room Air 03/07/18 13:50 82 135/80 (98) 95 Room Air 03/07/18 08:50 Room Air I & O 03/08/18 07:00 Intake Total 1966 ml Output Total 1750 ml Balance 216 ml Capillary Refill : General Appearance: No Apparent Distress HEENT: Normal ENT Inspection Neck: Normal Inspection Respiratory: No Accessory Muscle Use, No Respiratory Distress Cardiovascular: Regular Rate, Rhythm Results Lab Laboratory Tests 03/07/18 11:30: White Blood Count 6.3, Red Blood Count 2.74L, Hemoglobin 7.6L, Hematocrit 25L, Mean Corpuscular Volume 91, Mean Corpuscular Hemoglobin 28, Mean Corpuscular Hemoglobin Concent 31L, Red Cell Distribution Width 14.9H, Platelet Count 170, Mean Platelet Volume 10.4, Neutrophils (%) (Auto) 73, Lymphocytes (%) (Auto) 12 , Monocytes (%) (Auto) 9, Eosinophils (%) (Auto) 5, Basophils (%) (Auto) 0, Neutrophils # (Auto) 4.6, Lymphocytes # (Auto) 0.8L, Monocytes # (Auto) 0.6, Eosinophils # (Auto) 0.3, Basophils # (Auto) 0.0, Neutrophils % (Manual) 79, Lymphocytes % (Manual) 10, Monocytes % (Manual) 5, Eosinophils % (Manual) 6, Absolute Reticulocyte Count 75, Percent Reticulocyte Count 2.72H, Iron Level 41 , Total Iron Binding Capacity 246L, Unsaturated Iron Binding Capacity 205, Transferrin % Saturation 17, Ferritin 224.0 03/07/18 11:36: Glucometer 164H 03/07/18 16:33: Glucometer 201H 03/07/18 20:51: Glucometer 242H 03/08/18 04:45: White Blood Count 5.8, Red Blood Count 2.59L, Hemoglobin 7.5L, Hematocrit 23L, Mean Corpuscular Volume 90, Mean Corpuscular Hemoglobin 29, Mean Corpuscular Hemoglobin Concent 32, Red Cell Distribution Width 14.8H, Platelet Count 167, Mean Platelet Volume 10.0, Sodium Level 140, Potassium Level 5.3H, Chloride Level 108H, Carbon Dioxide Level 22, Anion Gap 10, Blood Urea Nitrogen 56H, Creatinine 1.89H, Estimat Glomerular Filtration Rate 38, BUN/Creatinine Ratio 30 , Glucose Level 147H, Calcium Level 8.7 Assessment/Plan Assessment/Plan Assess & Plan/Chief Complaint Diabetes. Coagulase negative bacteremia. Recent cervical surgery. Myopathy. Weakness. Renal insufficiency. . 03/01/18. Diabetes doing better. Coagulase negative bacteremia. Recent cervical surgery. Myopathy. Weakness. Renal insufficiency.. . To 03/02/18. Weakness. Renal insufficiency. Coagulase negative bacteremia. Hemoglobin 6.7. Patient to get 1 unit of packed red blood cells today 03/03/18: Weakness. Renal insufficiency. Anemia, Hemoglobin 7.7 DM. GABRIELLA.. . 03/06/18. Weakness. Renal insufficiency. Anemia. Diabetes. GABRIELLA. Patient gained 8 pounds.. . 03/07/18. Weakness. Renal insufficiency. Anemia. Diabetes. Patient weight stabilized today. Patient more anemic. GFR decreasing. . 03/08/18. Weakness. Anemia. Renal insufficiency. Recent cervical surgery. Clinical Quality Measures DVT/VTE Risk/Contraindication: Risk Factor Score Per Nursin RFS Level Per Nursing on Admit: 4+=Very High MARIIA SIM DO Mar 08, 2018 07:49
--- NOTE | 2018-03-08 08:52 | Cardiology Progress Note ---
Subjective Date Seen by Provider: Mar 08, 2018 Time Seen by Provider: 08:20 Subjective/Events-last exam Patient is up with PT. Continues to complain of generalized weakness and peripheral edema. Denies any CP or dyspnea. Review of Systems General: No Night Sweats; Fatigue, Malaise HEENT: No Visual Changes, No Dysphasia, No Sore Throat Pulmonary: No Dyspnea, No Cough Cardiovascular: Edema; No: Chest Pain, Palpitations, Orthopnea Gastrointestinal: No: Nausea, Vomiting, Abdominal Pain Genitourinary: No Dysuria, No Frequency Musculoskeletal: No: neck pain, back pain Neurological: No: Weakness, Numbness, Change in speech, Confusion Objective-Cardiology Exam Last Set of Vital Signs Vital Signs 03/07/18 03/08/18 21:00 05:55 Temp 98.6 Pulse 73 Resp 20 B/P (MAP) 112/69 (83) Pulse Ox 95 O2 Delivery NIV CPAP FiO2 93 Capillary Refill : I&O Intake and Output 03/08/18 00:00 Intake Total 1644 ml Output Total 2600 ml Balance -956 ml Intake Oral 1644 ml Output Urine Total 2600 ml # Voids 3 # Bowel Movements 4 General: Alert, Oriented X3, Cooperative, No Acute Distress HEENT: Atraumatic, PERRLA, EOMI, Mucous Memb Moist/[place] Neck: Other (Neck brace) Lungs: Clear to Auscultation Heart: Regular Rate, Normal S1, Normal S2 Abdomen: Normal Bowel Sounds, Soft, No Tenderness Extremities: No Clubbing, Normal Pulses, Other (+ 2-3 edema BLE) Skin: No Rashes Neuro: Normal Speech, Strength at 5/5 X4 Ext, Other (generalized weakness) Psych/Mental Status: Mental Status NL Results Lab Laboratory Tests 03/07/18 11:30 03/08/18 04:45 A/P-Cardiology Admission Diagnosis Acute renal failure Peripheral edema Coronary artery disease Hypertension Assessment/Plan Generalized weakness and loss of energy secondary to complicated hospital stay after neck surgery, had pneumonia, bacteremia, received antibiotic and reporting improvement. Peripheral edema, +2-3. Acute on chronic renal failure, continue on limiting salt intake and diuretics and monitor renal function closely Anemia, s/p transfusion. Dr. Bledsoe consulted for further management. Continue to hold Plavix. Echocardiogram was done at [facility] on February 14, 2018 showing moderate LVH, moderately dilated left atrium, diastolic dysfunction, estimated PA pressure 40 mmHg, ejection fraction 50-55 percent. Patient has refused to take Lovenox due to bleeding, using SCD. Acute on chronic renal insufficiency. Continue to monitor. History of coronary artery disease, history of mid LAD stenting using Alpine 3.0 18 mm done in June 2017, mild to moderate disease in the proximal portion of the LAD, moderate disease at the distal circumflex artery. Continue to monitor History of diabetes mellitus, diabetic neuropathy, followed and managed by primary care physician History of hyperlipidemia with intolerance to statin. Spinal stenosis, status post C3-7 ACDF with C5 corpectomy done by Dr. Hardwick History of carotid stenosis, last ultrasound was done in July 2017. Continue to monitor History of respiratory failure secondary to pneumonia. Improved. Continue to monitor Clinical Quality Measures DVT/VTE Risk/Contraindication: Risk Factor Score Per Nursin RFS Level Per Nursing on Admit: 4+=Very High CLAY SOMERS Mar 08, 2018 08:52
[2018-03-08] MEDS: MENTHOL/ZINC OXIDE (CALMOSEPTINE) 113 GM TUBE TOP SCH ×2 (09:00→20:24)
--- NOTE | 2018-03-08 09:02 | Physical Therapy Daily Note ---
PT Daily Note-Current Subjective pt in bed pre tx, agrees to PT, no pain to report Appearance pt in bed post tx, w/ phone, call light, tray, all needs met Mental Status Patient Orientation: Normal For Age Transfers Functional [place] Measure 0=Not Assessed/NA 4=Minimal Assistance 1=Total Assistance 5=Supervision or Setup 2=Maximal Assistance 6=Modified [place] 3=Moderate Assistance 7=Complete IndependenceIRFPAI Quality Coding Scale 6 Independent with activity with or without an assistive device 5 Patient requires set up or clean up by helper. Patient completes activity by themselves 4 Supervision or touching assist (CGA). [place] provide cues , steadying assist 3 The helper provides less than half the effort to complete the activity 2 The helper provides more than half the effort to complete the activity 1 Dependent. The helper does all the effort to complete an activity 7 Patient refused to complete or attempt activity 9 The patient did not perform the activity before the current illness or injury 88 Not attempted due to Medical conditions or safety concerns Transfers (B, C, W/C) (FIM): 5 Scootin Rollin Supine to/from Sit: 6 Sit to/from Stand: 5 sit<->stand SBA, Cristiane from lower surfaces Weight Bearing Right Lower Extremity: Right Full Weight Bearing Left Lower Extremity: Left Full Weight Bearing Gait Training Does the Patient Walk?: Yes Gait (FIM): 5 Distance: 400',250', 600', 100' Gait Level of Assist: 5 Gait Persons Needed: 1 Gait Assistive Device: FWW pt ambulates to/from [facility] outside hospital using FWW w/ SBA, pt needs frequent standing rest breaks, gait is steady w/ excessive knee extension bilaterally due to weakness Exercises NuStep Minutes: 15 NuStep Workload: 3 Treatments gait training, endurance training Assessment Current Status: Fair Progress improved gait distance and endurance PT Short Term Goals Short Term Goals Time Frame: Mar 03, 2018 Gait (FIM): 2 Gait Distance Comment: 100' Gait Level of Assist: 4 Gait Assistive Device: FWW Wheelchair Distance: 150'x3 PT Senior Care Goals Tax Advisor Goals PT Senior Care Goals Time Frame: Mar 17, 2018 Transfers (B,C,W/C) (FIM): 5 Sit to Lying (QC): 4 Lying-Sitting on Side/Bed(QC): 4 Sit to Stand (QC): 4 Rollin Roll Left to Right (QC): 4 Chair/Uzq-uz-Uiyjo Xfer(QC): 4 Car Transfer (QC): 4 Gait (FIM): 5 Distance: 150' Walk 10 feet (QC): 4 Walk 10ft-Uneven Surface(QC): 4 Walk 50ft with 2 Turns (QC): 4 Walk 150 ft (QC): 4 Gait Level of Assist: 5 Gait Assistive Device: FWW Stairs (FIM): 2 # of Steps: 4 1 Step (curb) (QC): 4 4 Steps (QC): 4 Stairs Level Of Assist: 4 PT Plan Problem List Problem List: Activity Tolerance, Functional Strength, Safety, Balance, Gait, Transfer, Bed Mobility Treatment/Plan Treatment Plan: Continue Plan of Care Treatment Plan: Bed Mobility, Education, Functional Activity [place], Functional Strength, Group Therapy, Gait, Safety, Therapeutic Exercise, Transfers Treatment Duration: Mar 17, 2018 Frequency: At least 5 of 7 days/Wk (IRF) Estimated Hrs Per Day: 1.5 hours per day Patient and/or Family Agrees t: Yes Safety Risks/Education Patient Education: Gait Training, Transfer Techniques, Correct Positioning, Safety Issues Teaching Recipient: Patient Teaching Methods: Demonstration, Discussion Response to Teaching: Reinforcement Needed Time/GCodes Time In: 0800 Time Out: 0900 Total Billed Treatment Time: 60 Total Billed Treatment 1 visit GT 45' EX 15' MARCELL BADILLO PT Mar 08, 2018 09:02
[2018-03-08] MEDS: ASPIRIN E.C. 81 MG (ECOTRIN) TAB PO SCH (09:24)
[2018-03-08] MEDS: LORATADINE (CLARITIN) 10 MG TAB PO SCH (09:24)
[2018-03-08] MEDS: GABAPENTIN 600 MG (NEURONTIN) TAB PO SCH ×3 (09:25→20:23)
[2018-03-08] MEDS: FUROSEMIDE 40 MG (LASIX) TAB PO SCH (09:25)
[2018-03-08] MEDS: amLODIPine 10 MG (NORVASC) TAB PO SCH (09:30)
[2018-03-08] MEDS: hydrALAZINE (APRESOLINE) 25 MG TAB PO SCH ×3 (09:30→20:23)
[2018-03-08] MEDS: meTOprolol TARTRATE 50 MG (LOPRESSOR) TAB PO SCH ×2 (09:30→20:23)
[2018-03-08] MEDS: MICONAZOLE 2% POWDER (DESENEX AF) 90 GM TOP SCH ×2 (09:39→20:24)
[2018-03-08 09:40] VITALS: BP 149/80
--- NOTE | 2018-03-08 11:30 | Occupational Ther Daily Note ---
OT Current Status-Daily Note Subjective Pt in bed, agrees to treatment. Pt reports 3/10 neck pain. Pt states he is fatigue from morning PT session. Mental Status/Objective Functional [place] Measure 0=Not Assessed/NA 4=Minimal Assistance 1=Total Assistance 5=Supervision or Setup 2=Maximal Assistance 6=Modified [place] 3=Moderate Assistance 7=Complete [place] ADL-Treatment Pt supine to sit with SBA. Agrees to shower this morning. Sit to stand from EOB with SBA. Gait to restroom with FWW. Transfer to walk in shower with chair with supervision. Pt doffed clothing with SBA, uses dressing stick to doff socks. Pt completed seated bathing with hand held shower and long handled sponge. Pt able to wash all areas with SBA and increased time. Don pullover shirt with set up. Pt required assist to thread bilateral LE into pant legs. Stood with supervision for pant hike. Pt unable to reach feet to don socks and unable to use sock aid secondary to edema. Total assist required to don socks. Pt stood at sink for grooming able to shave with electric razor with SBA. Transfer to EOB with supervision. Sit to supine with SBA. Functional [place] Measure 0=Not Assessed/NA 4=Minimal Assistance 1=Total Assistance 5=Supervision or Setup 2=Maximal Assistance 6=Modified [place] 3=Moderate Assistance 7=Complete IndependenceIRFPAI Quality Coding Scale 6 Independent with activity with or without an assistive device 5 Patient requires set up or clean up by helper. Patient completes activity by themselves 4 Supervision or touching assist (CGA). [place] provide cues , steadying assist 3 The helper provides less than half the effort to complete the activity 2 The helper provides more than half the effort to complete the activity 1 Dependent. The helper does all the effort to complete an activity 7 Patient refused to complete or attempt activity 9 The patient did not perform the activity before the current illness or injury 88 Not attempted due to Medical conditions or safety concerns Grooming (FIM): 5 Bathing (FIM): 5 Upper Body (FIM): 5 Lower Body Dressing (FIM): 2 Shower Transfer(FIM): 5 Other Treatment Pt completed bilateral UE activity to increase strength and activity tolerance needed for ADLs and transfers. Pt performed three UE exercises x15 reps with dowel thierno. Rest breaks between exercises. Bilateral hand global human resources director exercises x15 reps / 2 sets. Pt resting in bed with needs met after session. OT Short Term Goals Short Term Goals Time Frame: Mar 03, 2018 Bathing(FIM): 4 Lower Body Dressing(FIM): 4 Toileting(FIM): 4 Toilet/Commode Transfer(FIM): 4 Additional Short Term Goals: 2-Verbalize Understanding, 3-ImproveStrength/Cody 1=Demonstrate adherence to instructed precautions during ADL tasks. 2=Patient will verbalize/demonstrate understanding of assistive devices/ modifications for ADL. 3=Patient will improve strength/tolerance for activity to enable patient to perform ADL's. OT Senior Care Goals Senior Care Goals Time Frame: Mar 17, 2018 Eating (FIM): 7 Eating (QC): 6 Groomin Oral Hygiene (QC): 6 Bathing(FIM): 5 Shower/Bathe Self (QC): 5 Upper Body Dressing(FIM): 6 Upper Body Dressing (QC): 6 Lower Body Dressing(FIM): 5 Lower Body Dressing (QC): 5 On/Off Footwear (QC): 5 Toileting(FIM): 5 Toileting Hygiene (QC): 5 Toilet/Commode Transfer(FIM): 5 Toilet/Commode Transfer (QC): 5 Shower Transfer(FIM): 5 Additional Goals: 1-Demonstrate ADL Tasks, 2-Verbalize Understanding, 3- ImproveStrength/Cody 1=Demonstrate adherence to instructed precautions during ADL tasks. 2=Patient will verbalize/demonstrate understanding of assistive devices/ modifications for ADL. 3=Patient will improve strength/tolerance for activity to enable patient to perform ADL's. OT Education/Plan Discharge Recommendations Plan/Recommendations: Continue POC Treatment Plan/Plan of Care Patient would benefit from OT for education, treatment and training to promote independence in ADL's, mobility, safety and/or upper extremity function for ADL' s. Plan of Care: ADL Retraining, Functional Mobility, Group Exercise/Act as Ind, UE Funct Exercise/Act Treatment Duration: Mar 17, 2018 Frequency: Modified Program (IRF) (25/12) Estimated Hrs Per Day: 1.5 hours per day Agreement: Yes Rehab Potential: Good Time/GCodes Start Time: 09:45 Stop Time: 10:45 Total Time Billed (hr/min): 60 Billed Treatment Time 1 visit, ADLx3(45minutes), EX(15minutes) BRENT COLLAZO OT Mar 08, 2018 11:30
--- NOTE | 2018-03-08 11:38 | Cardiology Progress Note ---
Subjective Date Seen by Provider: Mar 08, 2018 Time Seen by Provider: 11:36 Subjective/Events-last exam Patient is sitting at bedside, seen and evaluated earlier today. Still having swelling. Review of Systems General: No Chills, No Night Sweats; Fatigue, Malaise; No Appetite, No Other HEENT: No Head Aches, No Visual Changes, No Eye Pain, No Ear Pain, No Dysphasia , No Sinus Congestion, No Post Nasal Drip, No Sore Throat, No Other Pulmonary: Dyspnea; No Cough, No Pleuritic Chest Pain, No Other Cardiovascular: Edema; No: Chest Pain, Palpitations, Orthopnea, Paroxysmal Noc. Dyspnea, Lt Headedness, Other Objective-Cardiology Exam Last Set of Vital Signs Vital Signs 03/07/18 03/08/18 03/08/18 21:00 05:55 09:00 Temp 98.6 Pulse 73 Resp 20 B/P (MAP) 112/69 (83) Pulse Ox 95 O2 Delivery Room Air FiO2 93 Capillary Refill : I&O Intake and Output 03/08/18 00:00 Intake Total 1644 ml Output Total 2600 ml Balance -956 ml Intake Oral 1644 ml Output Urine Total 2600 ml # Voids 3 # Bowel Movements 4 General: Alert, Oriented X3, Cooperative, No Acute Distress HEENT: Atraumatic, PERRLA, EOMI, Mucous Memb Moist/[place] Neck: Other (Neck brace) Lungs: Clear to Auscultation Heart: Regular Rate, Normal S1, Normal S2 Abdomen: Normal Bowel Sounds, Soft, No Tenderness Extremities: No Clubbing, Normal Pulses, Other (+ 2-3 edema BLE) Skin: No Rashes Neuro: Normal Speech, Strength at 5/5 X4 Ext, Other (generalized weakness) Psych/Mental Status: Mental Status NL Results Lab Laboratory Tests 03/08/18 04:45 A/P-Cardiology Admission Diagnosis Acute renal failure Peripheral edema Coronary artery disease Hypertension Assessment/Plan Generalized weakness and loss of energy secondary to complicated hospital stay after neck surgery, had pneumonia, bacteremia, received antibiotic and reporting improvement. Peripheral edema, +2-3. Acute on chronic renal failure, continue on limiting salt intake and diuretics and monitor renal function closely Anemia, s/p transfusion. Dr. Bledsoe consulted for further management. Continue to hold Plavix. Hyperkalemia, discontinue losartan, continue to monitor electrolytes and renal function while receiving Lasix Echocardiogram was done at [facility] on February 14, 2018 showing moderate LVH, moderately dilated left atrium, diastolic dysfunction, estimated PA pressure 40 mmHg, ejection fraction 50-55 percent. Patient has refused to take Lovenox due to bleeding, using SCD. Acute on chronic renal insufficiency. Continue to monitor. History of coronary artery disease, history of mid LAD stenting using Alpine 3.0 18 mm done in June 2017, mild to moderate disease in the proximal portion of the LAD, moderate disease at the distal circumflex artery. Continue to monitor History of diabetes mellitus, diabetic neuropathy, followed and managed by primary care physician History of hyperlipidemia with intolerance to statin. Spinal stenosis, status post C3-7 ACDF with C5 corpectomy done by Dr. Hardwick History of carotid stenosis, last ultrasound was done in July 2017. Continue to monitor History of respiratory failure secondary to pneumonia. Improved. Continue to monitor Clinical Quality Measures DVT/VTE Risk/Contraindication: Risk Factor Score Per Nursin RFS Level Per Nursing on Admit: 4+=Very High KAREN YANG MD Mar 08, 2018 11:37
--- NOTE | 2018-03-08 13:51 | Physical Therapy Daily Note ---
PT Daily Note-Current Subjective pt in bed pre tx, agrees to PT, no pain to report Appearance pt in recliner post tx, w phone, call light, tray, all needs met Mental Status Patient Orientation: Normal For Age Transfers Functional [place] Measure 0=Not Assessed/NA 4=Minimal Assistance 1=Total Assistance 5=Supervision or Setup 2=Maximal Assistance 6=Modified [place] 3=Moderate Assistance 7=Complete IndependenceIRFPAI Quality Coding Scale 6 Independent with activity with or without an assistive device 5 Patient requires set up or clean up by helper. Patient completes activity by themselves 4 Supervision or touching assist (CGA). [place] provide cues , steadying assist 3 The helper provides less than half the effort to complete the activity 2 The helper provides more than half the effort to complete the activity 1 Dependent. The helper does all the effort to complete an activity 7 Patient refused to complete or attempt activity 9 The patient did not perform the activity before the current illness or injury 88 Not attempted due to Medical conditions or safety concerns Transfers (B, C, W/C) (FIM): 5 Supine to/from Sit: 5 Sit to/from Stand: 5 SBA for all transfers, sit<->stand Cristiane from lower surfaces Weight Bearing Right Lower Extremity: Right Full Weight Bearing Left Lower Extremity: Left Full Weight Bearing Gait Training Does the Patient Walk?: Yes Gait (FIM): 5 Distance: 150',100' Gait Level of Assist: 5 Gait Persons Needed: 1 Gait Assistive Device: FWW pt ambulates to/from gym w/ FWW and SBA, pt needs frequent standing rest breaks and demonstrates excessive bilat knee extension, due to quadriceps weakness Exercises seated bilateral LE stretching (calf and hamstring) NuStep Minutes: 25 NuStep Workload: 6 Treatments gait training, endurance training, stretching Assessment Current Status: Fair Progress improved activity tolerance and endurance PT Short Term Goals Short Term Goals Time Frame: Mar 03, 2018 Gait (FIM): 2 Gait Distance Comment: 100' Gait Level of Assist: 4 Gait Assistive Device: FWW Wheelchair Distance: 150'x3 PT Fci Goals Fci Goals PT Typewriter Ribbon Winder Goals Time Frame: Mar 17, 2018 Transfers (B,C,W/C) (FIM): 5 Sit to Lying (QC): 4 Lying-Sitting on Side/Bed(QC): 4 Sit to Stand (QC): 4 Rollin Roll Left to Right (QC): 4 Chair/Zvv-mo-Unhki Xfer(QC): 4 Car Transfer (QC): 4 Gait (FIM): 5 Distance: 150' Walk 10 feet (QC): 4 Walk 10ft-Uneven Surface(QC): 4 Walk 50ft with 2 Turns (QC): 4 Walk 150 ft (QC): 4 Gait Level of Assist: 5 Gait Assistive Device: FWW Stairs (FIM): 2 # of Steps: 4 1 Step (curb) (QC): 4 4 Steps (QC): 4 Stairs Level Of Assist: 4 PT Plan Problem List Problem List: Activity Tolerance, Functional Strength, Safety, Balance, Gait, Transfer, Bed Mobility Treatment/Plan Treatment Plan: Continue Plan of Care Treatment Plan: Bed Mobility, Education, Functional Activity Cody, Functional Strength, Group Therapy, Gait, Safety, Therapeutic Exercise, Transfers Treatment Duration: Mar 17, 2018 Frequency: At least 5 of 7 days/Wk (IRF) Estimated Hrs Per Day: 1.5 hours per day Patient and/or Family Agrees t: Yes Safety Risks/Education Patient Education: Gait Training, Transfer Techniques, Correct Positioning, Safety Issues Teaching Recipient: Patient Teaching Methods: Demonstration, Discussion Response to Teaching: Reinforcement Needed Time/GCodes Time In: 1300 Time Out: 1345 Total Billed Treatment Time: 45 Total Billed Treatment 1 visit GT 15' EX 30' MARCELL BADILLO PT Mar 08, 2018 13:51
--- NOTE | 2018-03-08 15:28 | Occupational Ther Daily Note ---
OT Current Status-Daily Note Subjective Pt in bed sleeping, agrees to treatment with encouragement Mental Status/Objective Functional [place] Measure 0=Not Assessed/NA 4=Minimal Assistance 1=Total Assistance 5=Supervision or Setup 2=Maximal Assistance 6=Modified [place] 3=Moderate Assistance 7=Complete [place] ADL-Treatment Pt supine to sit with supervision. Assist to don cervical collar. Sit to stand with SBA with bed raised. Gait to restroom with FWW. Pt stood at toilet to urinate with SBA. Pt able to manage clothing with SBA for balance. Functional [place] Measure 0=Not Assessed/NA 4=Minimal Assistance 1=Total Assistance 5=Supervision or Setup 2=Maximal Assistance 6=Modified [place] 3=Moderate Assistance 7=Complete IndependenceIRFPAI Quality Coding Scale 6 Independent with activity with or without an assistive device 5 Patient requires set up or clean up by helper. Patient completes activity by themselves 4 Supervision or touching assist (CGA). [place] provide cues , steadying assist 3 The helper provides less than half the effort to complete the activity 2 The helper provides more than half the effort to complete the activity 1 Dependent. The helper does all the effort to complete an activity 7 Patient refused to complete or attempt activity 9 The patient did not perform the activity before the current illness or injury 88 Not attempted due to Medical conditions or safety concerns Toileting (FIM): 5 Other Treatment Gait to therapy gym with FWW. Pt completed arm bike activity x15 minutes to increase overall activity tolerance and strength needed for ADLs and transfers. Pt performed task with minimal resistance and slow pace. No rest breaks needed. Pt returned to room, transferred to EOB with SBA. Sit to supine with supervision. Pt in bed with needs met after session. OT Short Term Goals Short Term Goals Time Frame: Mar 03, 2018 Bathing(FIM): 4 Lower Body Dressing(FIM): 4 Toileting(FIM): 4 Toilet/Commode Transfer(FIM): 4 Additional Short Term Goals: 2-Verbalize Understanding, 3-ImproveStrength/Cody 1=Demonstrate adherence to instructed precautions during ADL tasks. 2=Patient will verbalize/demonstrate understanding of assistive devices/ modifications for ADL. 3=Patient will improve strength/tolerance for activity to enable patient to perform ADL's. OT Concrete Rubber Goals Concrete Rubber Goals Time Frame: Mar 17, 2018 Eating (FIM): 7 Eating (QC): 6 Groomin Oral Hygiene (QC): 6 Bathing(FIM): 5 Shower/Bathe Self (QC): 5 Upper Body Dressing(FIM): 6 Upper Body Dressing (QC): 6 Lower Body Dressing(FIM): 5 Lower Body Dressing (QC): 5 On/Off Footwear (QC): 5 Toileting(FIM): 5 Toileting Hygiene (QC): 5 Toilet/Commode Transfer(FIM): 5 Toilet/Commode Transfer (QC): 5 Shower Transfer(FIM): 5 Additional Goals: 1-Demonstrate ADL Tasks, 2-Verbalize Understanding, 3- ImproveStrength/Cody 1=Demonstrate adherence to instructed precautions during ADL tasks. 2=Patient will verbalize/demonstrate understanding of assistive devices/ modifications for ADL. 3=Patient will improve strength/tolerance for activity to enable patient to perform ADL's. OT Education/Plan Discharge Recommendations Plan/Recommendations: Continue POC Treatment Plan/Plan of Care Patient would benefit from OT for education, treatment and training to promote independence in ADL's, mobility, safety and/or upper extremity function for ADL' s. Plan of Care: ADL Retraining, Functional Mobility, Group Exercise/Act as Ind, UE Funct Exercise/Act Treatment Duration: Mar 17, 2018 Frequency: Modified Program (IRF) (25/12) Estimated Hrs Per Day: 1.5 hours per day Agreement: Yes Rehab Potential: Good Time/GCodes Start Time: 11:30 Stop Time: 12:00 Total Time Billed (hr/min): 30 Billed Treatment Time 1 visit, ADL(10minutes), Ex(20minutes) BRENT COLLAZO OT Mar 08, 2018 15:28
--- NOTE | 2018-03-08 15:52 | CONSULTATION REPORT ---
DATE OF SERVICE: 03/08/2018 The patient is admitted to room 223. REFERRING AND PRIMARY PHYSICIAN: Yang Younger DO IMPRESSION: 1. A 53-year-old male admitted to rehabilitation unit for strengthening following neck surgery six weeks ago. 2. Hypoproliferative anemia consistent with anemia of chronic disease. 3. Chronic kidney disease, stage III. 4. History of diabetes mellitus type 2 and coronary artery disease. RECOMMENDATIONS: 1. Obtain erythropoietin level, B12 and folate level, repeat fecal occult blood test. 2. Continue transfusion with PRBCs until the workup is completed to maintain hemoglobin at the 8 gram per deciliter or above range because of his cardiac history. 3. Continue strengthening and ambulation as you are doing and discharge home when stable. 4. [facility] 2 [facility] to follow the pending results. If the erythropoietin is low, I will start the patient on Aranesp to maintain his hemoglobin in the 10 to 11 gram per deciliter range. BRIEF HISTORY: The patient is a 53-year-old male who underwent neck surgery because of degenerative joint disease approximately 6 weeks ago. Following this, he had complications and an infection requiring prolonged antibiotic therapy. He was transferred to [facility] in [place] and was intubated for several days with multiple antibiotic therapy. He also developed C. difficile colitis while there and this is being treated. He recovered from this gradually, but was significantly deconditioned. The patient was transferred to [facility] for continued rehabilitation. He was noted to be significantly anemic requiring transfusion on two separate occasions. Because of this, hematology consultation was requested for further evaluation and management. PAST MEDICAL HISTORY: Significant for diabetes mellitus type 2 since more than 20 years. He has coronary artery disease requiring stent placement in early 2018. The patient was on double antiplatelet agent with Plavix and aspirin during that time, which has been discontinued now because of the anemia. He has history of hypertension for several years and is on treatment for this. He has a history of osteoarthritis and degenerative joint disease. He has required neck surgery approximately 6 weeks ago for this. SOCIAL HISTORY: The patient is , lives alone in [place], [place]. He has partial custody of a 16-year-old son who lives with him 3 days a week and is attending high school locally. Denied any tobacco or alcohol or other recreational drug use. 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 FAMILY HISTORY: Unremarkable. PHYSICAL EXAMINATION: GENERAL: Today showed a middle-aged male, obese, awake and oriented, in no acute distress at the time of evaluation. VITAL SIGNS: Temperature was 98.6, pulse rate of 73, respirations 20, blood pressure 112/69, oxygen saturation 95% on room air. HEENT: Normocephalic. Extraocular muscles intact. Conjunctivae slightly pale. Oral mucosa moist. NECK: Supple with no JVD. No cervical, supraclavicular or axillary lymphadenopathy palpable. CHEST: Symmetrical. LUNGS: Fairly clear to auscultation without wheezes or rales. CARDIOVASCULAR: Regular in rate and rhythm without murmurs. ABDOMEN: Obese, soft, nontender with no hepatosplenomegaly or other masses palpable. EXTREMITIES: Showed 2+ edema of the lower extremities. NEUROLOGIC: Significant for motor strength of 4/5 in bilateral lower extremities and 5/5 in upper extremities. LABORATORY DATA: I reviewed his lab work. CBC done yesterday showed white count of 6.3, hemoglobin 7.6, MCV 91, RDW 14.9, platelet count of 170,000 with neutrophil count 4.6 and lymphocyte count 0.8. Absolute reticulocyte count was 75,000. Repeat hemoglobin today was 7.5. BMP done yesterday showed relatively normal electrolytes. BUN was 54 and creatinine 1.93 with GFR 37 mL per minute. Nonfasting glucose was 147. Serum iron was 41, TIBC 246 and a ferritin level of 224 consistent with anemia of chronic disease. BNP was 379.6. Fecal occult blood test done on 03/02/2018 was negative, while on 02/09/2018 was positive. Thank you for allowing me to participate in this patient's care. I will follow the patient with you and make appropriate recommendations. Job ID: [id number] DocumentID: [id number] Dictated Date: 03/08/2018 15:04:45 Through Operator Date: 03/08/2018 15:51:13 Dictated By: PAPITO DAIGLE MD [facility] LANG[facility] HEALTH SYSTEMJosué
[2018-03-08 18:00] VITALS: BP 152/86
[2018-03-08] MEDS: ROSUVASTATIN 5 MG (CRESTOR) TABLET PO SCH (20:23)
[2018-03-09 05:37] LABS: HEMOGLOBIN 7.5 G/DL (13.3-17.7); MEAN PLATELET VOLUME 10.6 FL (7.4-10.4); RED BLOOD COUNT 2.6 10^6/uL (4.35-5.85); RED CELL DISTRIBUTION WIDTH 14.9 % (10.0-14.5); WHITE BLOOD COUNT 5.6 10^3/uL (4.3-11.0)
[2018-03-09 06:00] VITALS: BP_SYST 113; BP_DIAS 54; BP_DIAS 70
[2018-03-09] MEDS: GLIMEPIRIDE 4 MG (AMARYL) TAB PO SCH (06:17)
[2018-03-09] MEDS: PANTOPRAZOLE 40 MG (PROTONIX) TAB PO SCH (06:17)
[2018-03-09] MEDS: FERROUS SULF 325 MG (IRON) TAB PO SCH ×2 (06:17→16:13)
[2018-03-09 06:21] LABS: CALCIUM 8.9 MG/DL (8.5-10.1); CREATININE SERUM 1.93 MG/DL (0.60-1.30)
[2018-03-09] MEDS: inSUlin ASPART (NovoLOG) 1 UNIT/0.01 ML (CHARGE PER UNIT) SC SCH ×4 (06:26→22:50)
[2018-03-09 08:00] VITALS: BP 147/78
[2018-03-09] MEDS: LORATADINE (CLARITIN) 10 MG TAB PO SCH (08:11)
[2018-03-09] MEDS: meTOprolol TARTRATE 50 MG (LOPRESSOR) TAB PO SCH ×2 (08:11→20:45)
[2018-03-09] MEDS: ASPIRIN E.C. 81 MG (ECOTRIN) TAB PO SCH (08:11)
[2018-03-09] MEDS: amLODIPine 10 MG (NORVASC) TAB PO SCH (08:11)
[2018-03-09] MEDS: FUROSEMIDE 40 MG (LASIX) TAB PO SCH (08:11)
[2018-03-09] MEDS: hydrALAZINE (APRESOLINE) 25 MG TAB PO SCH ×3 (08:11→20:45)
[2018-03-09] MEDS: MICONAZOLE 2% POWDER (DESENEX AF) 90 GM TOP SCH ×2 (08:13→20:46)
[2018-03-09] MEDS: MENTHOL/ZINC OXIDE (CALMOSEPTINE) 113 GM TUBE TOP SCH ×2 (08:22→20:46)
[2018-03-09] MEDS: GABAPENTIN 600 MG (NEURONTIN) TAB PO SCH ×3 (08:22→20:45)
--- NOTE | 2018-03-09 08:25 | Cardiology Progress Note ---
Subjective Date Seen by Provider: Mar 09, 2018 Time Seen by Provider: 08:05 Subjective/Events-last exam Patient is sitting up in bed, eating breakfast. NO new complaints. Denies any CP or dyspnea, continues to c/o peripheral edema. Objective-Cardiology Exam Last Set of Vital Signs Vital Signs 03/08/18 03/09/18 21:00 06:00 Temp 98.6 Pulse 73 Resp 18 B/P (MAP) 113/70 (84) Pulse Ox 93 O2 Delivery NIV CPAP FiO2 93 Capillary Refill : I&O Intake and Output 03/09/18 00:00 Intake Total 1862 ml Output Total 2050 ml Balance -188 ml Intake Oral 1862 ml Output Urine Total 2050 ml # Voids 1 General: Alert, Oriented X3, Cooperative, No Acute Distress HEENT: Atraumatic, PERRLA, EOMI, Mucous Memb Moist/[place] Neck: Other (Neck brace) Lungs: Clear to Auscultation Heart: Regular Rate, Normal S1, Normal S2 Abdomen: Normal Bowel Sounds, Soft, No Tenderness Extremities: No Clubbing, Normal Pulses, Other (+ 2-3 edema BLE) Skin: No Rashes Neuro: Normal Speech, Strength at 5/5 X4 Ext, Other (generalized weakness) Psych/Mental Status: Mental Status NL Results Lab Laboratory Tests 03/09/18 05:30 A/P-Cardiology Admission Diagnosis Acute renal failure Peripheral edema Coronary artery disease Hypertension Assessment/Plan Generalized weakness and loss of energy secondary to complicated hospital stay after neck surgery, had pneumonia, bacteremia, received antibiotic and reporting improvement. Peripheral edema, +2-3. Acute on chronic renal failure, continue on limiting salt intake and diuretics and monitor renal function closely Anemia, s/p transfusion. Dr. Kumar managing. Hyperkalemia,improved. Discontinued losartan, continue to monitor electrolytes and renal function while receiving Lasix Echocardiogram was done at [facility] on February 14, 2018 showing moderate LVH, moderately dilated left atrium, diastolic dysfunction, estimated PA pressure 40 mmHg, ejection fraction 50-55 percent. Patient has refused to take Lovenox due to bleeding, using SCD. Acute on chronic renal insufficiency. Continue to monitor. History of coronary artery disease, history of mid LAD stenting using Alpine 3.0 18 mm done in June 2017, mild to moderate disease in the proximal portion of the LAD, moderate disease at the distal circumflex artery. Continue to monitor History of diabetes mellitus, diabetic neuropathy, followed and managed by primary care physician History of hyperlipidemia with intolerance to statin. Spinal stenosis, status post C3-7 ACDF with C5 corpectomy done by Dr. Hardwick History of carotid stenosis, last ultrasound was done in July 2017. Continue to monitor History of respiratory failure secondary to pneumonia. Improved. Continue to monitor Clinical Quality Measures DVT/VTE Risk/Contraindication: Risk Factor Score Per Nursin RFS Level Per Nursing on Admit: 4+=Very High CLAY SOMERS Mar 09, 2018 08:25
--- NOTE | 2018-03-09 08:33 | Progress Note (SOAP) ---
Subjective Time Seen by a Provider: 08:31 Subjective/Events-last exam Patient feeling better clinically. Patient has anemia. Patient has renal insufficiency. Patient seen enamel finisher and chief meteorologist Objective Exam Vital Signs Date Time Temp Pulse Resp B/P (MAP) Pulse Ox O2 Delivery O2 Flow Rate FiO2 03/09/18 06:00 98.6 73 18 113/70 (84) 93 NIV CPAP 03/08/18 21:00 Room Air 93 03/08/18 18:00 97.8 83 20 152/86 (108) 96 Room Air 03/08/18 09:40 80 149/80 (103) 03/08/18 09:00 Room Air I & O 03/09/18 07:00 Intake Total 1984 ml Output Total 2975 ml Balance -991 ml Capillary Refill : General Appearance: No Apparent Distress, WD/WN Results Lab Laboratory Tests 03/09/18 05:30 Laboratory Tests 03/08/18 11:23: Glucometer 165H 03/08/18 16:33: Glucometer 203H 03/08/18 20:36: Glucometer 184H 03/09/18 05:30: White Blood Count 5.6, Red Blood Count 2.60L, Hemoglobin 7.5L, Hematocrit 24L, Mean Corpuscular Volume 91, Mean Corpuscular Hemoglobin 29, Mean Corpuscular Hemoglobin Concent 32, Red Cell Distribution Width 14.9H, Platelet Count 164, Mean Platelet Volume 10.6H, Sodium Level 142, Potassium Level 5.0, Chloride Level 109H, Carbon Dioxide Level 23, Anion Gap 10, Blood Urea Nitrogen 59H, Creatinine 1.93H, Estimat Glomerular Filtration Rate 37, BUN/Creatinine Ratio 31 , Glucose Level 164H, Calcium Level 8.9 Assessment/Plan Assessment/Plan Assess & Plan/Chief Complaint Diabetes. Coagulase negative bacteremia. Recent cervical surgery. Myopathy. Weakness. Renal insufficiency. . 03/01/18. Diabetes doing better. Coagulase negative bacteremia. Recent cervical surgery. Myopathy. Weakness. Renal insufficiency.. . To 03/02/18. Weakness. Renal insufficiency. Coagulase negative bacteremia. Hemoglobin 6.7. Patient to get 1 unit of packed red blood cells today 03/03/18: Weakness. Renal insufficiency. Anemia, Hemoglobin 7.7 DM. GABRIELLA.. . 03/06/18. Weakness. Renal insufficiency. Anemia. Diabetes. GABRIELLA. Patient gained 8 pounds.. . 03/07/18. Weakness. Renal insufficiency. Anemia. Diabetes. Patient weight stabilized today. Patient more anemic. GFR decreasing. . 03/08/18. Weakness. Anemia. Renal insufficiency. Recent cervical surgery.. . 03/09/18. Weakness. Anemia. Renal insufficiency. Recent cervical surgery. Diabetes Clinical Quality Measures DVT/VTE Risk/Contraindication: Risk Factor Score Per Nursin RFS Level Per Nursing on Admit: 4+=Very High MARIIA SIM DO Mar 09, 2018 08:33
--- NOTE | 2018-03-09 10:00 | Physical Therapy Daily Note ---
PT Daily Note-Current Subjective Patient in bed pre tx, agrees to PT, no complaints of pain at rest. Patient states he may need to have a BM during treatment. Patient has swelling in bilateral lower extremities and states he has swelling of the scrotum. Appearance Patient in bed post tx with nurse call, phone, tray, all needs met. Mental Status Patient Orientation: Normal For Age Transfers Functional [place] Measure 0=Not Assessed/NA 4=Minimal Assistance 1=Total Assistance 5=Supervision or Setup 2=Maximal Assistance 6=Modified [place] 3=Moderate Assistance 7=Complete IndependenceIRFPAI Quality Coding Scale 6 Independent with activity with or without an assistive device 5 Patient requires set up or clean up by helper. Patient completes activity by themselves 4 Supervision or touching assist (CGA). [place] provide cues , steadying assist 3 The helper provides less than half the effort to complete the activity 2 The helper provides more than half the effort to complete the activity 1 Dependent. The helper does all the effort to complete an activity 7 Patient refused to complete or attempt activity 9 The patient did not perform the activity before the current illness or injury 88 Not attempted due to Medical conditions or safety concerns Transfers (B, C, W/C) (FIM): 4 Scootin Rollin Supine to/from Sit: 4 Sit to/from Stand: 5 Bed to/from Chair: 5 Patient needs min assist to get one leg into bed during sit to supine. Weight Bearing Right Lower Extremity: Right Full Weight Bearing Left Lower Extremity: Left Full Weight Bearing Gait Training Gait (FIM): 5 Distance: 200', 100'x2 Gait Level of Assist: 5 Gait Persons Needed: 1 Gait Assistive Device: FWW Patient has a wide stance, slow ambulation but steady. Exercises Standing: Heel/toe raises, Mini squats Standing Reps: 15 NuStep Minutes: 15 NuStep Workload: 6 Treatments bed mobility and transfers, ambulation, functional strengthening, patient was toileted once for a BM (did not need assist with wiping or pants) Assessment Current Status: Fair Progress improving endurance and general mobility PT Short Term Goals Short Term Goals Time Frame: Mar 03, 2018 Gait (FIM): 2 Gait Distance Comment: 100' Gait Level of Assist: 4 Gait Assistive Device: FWW Wheelchair Distance: 150'x3 PT Collection Systems Foreman Goals Collection Systems Foreman Goals PT Group Home Goals Time Frame: Mar 17, 2018 Transfers (B,C,W/C) (FIM): 5 Sit to Lying (QC): 4 Lying-Sitting on Side/Bed(QC): 4 Sit to Stand (QC): 4 Rollin Roll Left to Right (QC): 4 Chair/Npp-lx-Gjpbw Xfer(QC): 4 Car Transfer (QC): 4 Gait (FIM): 5 Distance: 150' Walk 10 feet (QC): 4 Walk 10ft-Uneven Surface(QC): 4 Walk 50ft with 2 Turns (QC): 4 Walk 150 ft (QC): 4 Gait Level of Assist: 5 Gait Assistive Device: FWW Stairs (FIM): 2 # of Steps: 4 1 Step (curb) (QC): 4 4 Steps (QC): 4 Stairs Level Of Assist: 4 PT Plan Problem List Problem List: Activity Tolerance, Functional Strength, Safety, Balance, Gait, Transfer, Bed Mobility, ROM Treatment/Plan Treatment Plan: Continue Plan of Care Treatment Plan: Bed Mobility, Education, Functional Activity [place], Functional Strength, Group Therapy, Gait, Safety, Therapeutic Exercise, Transfers Treatment Duration: Mar 17, 2018 Frequency: At least 5 of 7 days/Wk (IRF) Estimated Hrs Per Day: 1.5 hours per day Patient and/or Family Agrees t: Yes Safety Risks/Education Patient Education: Gait Training, Transfer Techniques, Correct Positioning, Safety Issues Teaching Recipient: Patient Teaching Methods: Demonstration, Discussion Response to Teaching: Reinforcement Needed Time/GCodes Time In: 0900 Time Out: 1000 Total Billed Treatment Time: 60 Total Billed Treatment 1 visit FA 10' EX 20' GT 30' MARCELL BADILLO PT Mar 09, 2018 10:00
--- NOTE | 2018-03-09 13:31 | Physical Therapy Daily Note ---
PT Daily Note-Current Subjective Agreeable to PT. Reports he is hopeful to stay into next week. Mental Status Patient Orientation: Person, Place, Time, Situation Transfers Functional [place] Measure 0=Not Assessed/NA 4=Minimal Assistance 1=Total Assistance 5=Supervision or Setup 2=Maximal Assistance 6=Modified [place] 3=Moderate Assistance 7=Complete IndependenceIRFPAI Quality Coding Scale 6 Independent with activity with or without an assistive device 5 Patient requires set up or clean up by helper. Patient completes activity by themselves 4 Supervision or touching assist (CGA). [place] provide cues , steadying assist 3 The helper provides less than half the effort to complete the activity 2 The helper provides more than half the effort to complete the activity 1 Dependent. The helper does all the effort to complete an activity 7 Patient refused to complete or attempt activity 9 The patient did not perform the activity before the current illness or injury 88 Not attempted due to Medical conditions or safety concerns Transfers (B, C, W/C) (FIM): 5 Supine to/from Sit: 6 Sit to/from Stand: 5 SBA with sit to stand for safety. Weight Bearing Right Lower Extremity: Right Full Weight Bearing Left Lower Extremity: Left Full Weight Bearing Gait Training Does the Patient Walk?: Yes Gait (FIM): 5 Distance (FIM): 3=150 ft Distance: 150 ft x 3 Gait Assistive Device: FWW Safe and steady with gait and without LOB episodes. Exercises NuStep Minutes: 15 NuStep Workload: 7 (LE functional strengthening to progress safety with gait and transfers. ) Assessment Current Status: Good Progress Progressingwith functional transfers and gait. PT Short Term Goals Short Term Goals Time Frame: Mar 03, 2018 Gait (FIM): 2 (met) Gait Distance Comment: 100' Gait Level of Assist: 4 Gait Assistive Device: FWW Wheelchair Distance: 150'x3 PT Half-Way Goals Factory Lay Out Engineer Goals PT Half-Way Goals Time Frame: Mar 17, 2018 Transfers (B,C,W/C) (FIM): 5 (met) Sit to Lying (QC): 4 Lying-Sitting on Side/Bed(QC): 4 Sit to Stand (QC): 4 Rollin Roll Left to Right (QC): 4 Chair/Fip-vj-Grtyb Xfer(QC): 4 Car Transfer (QC): 4 Gait (FIM): 5 (met) Distance: 150' Walk 10 feet (QC): 4 Walk 10ft-Uneven Surface(QC): 4 Walk 50ft with 2 Turns (QC): 4 Walk 150 ft (QC): 4 Gait Level of Assist: 5 Gait Assistive Device: FWW Stairs (FIM): 2 # of Steps: 4 1 Step (curb) (QC): 4 4 Steps (QC): 4 Stairs Level Of Assist: 4 PT Plan Problem List Problem List: Activity Tolerance, Functional Strength, Safety Treatment/Plan Treatment Plan: Continue Plan of Care Treatment Plan: Bed Mobility, Education, Functional Activity [place], Functional Strength, Group Therapy, Gait, Safety, Therapeutic Exercise, Transfers Treatment Duration: Mar 17, 2018 Frequency: At least 5 of 7 days/Wk (IRF) Estimated Hrs Per Day: 1.5 hours per day Patient and/or Family Agrees t: Yes Safety Risks/Education Patient Education: Safety Issues Teaching Recipient: Patient Teaching Methods: Discussion Response to Teaching: Return Demonstration Time/GCodes Time In: 1230 Time Out: 1300 Total Billed Treatment Time: 30 Total Billed Treatment visit EX 15 Gt 15 TRE VARGAS PT Mar 09, 2018 13:31
--- NOTE | 2018-03-09 14:34 | Occupational Ther Daily Note ---
OT Current Status-Daily Note Subjective No pain reported. However, pt. does report that his left shoulder area, ( points to trapezius), is tight. Appearance Pt. in bed. Agrees to work with OT. Mental Status/Objective Patient Orientation: Person, Place, Time, Situation Functional [place] Measure 0=Not Assessed/NA 4=Minimal Assistance 1=Total Assistance 5=Supervision or Setup 2=Maximal Assistance 6=Modified [place] 3=Moderate Assistance 7=Complete [place] ADL-Treatment Functional [place] Measure 0=Not Assessed/NA 4=Minimal Assistance 1=Total Assistance 5=Supervision or Setup 2=Maximal Assistance 6=Modified [place] 3=Moderate Assistance 7=Complete IndependenceIRFPAI Quality Coding Scale 6 Independent with activity with or without an assistive device 5 Patient requires set up or clean up by helper. Patient completes activity by themselves 4 Supervision or touching assist (CGA). [place] provide cues , steadying assist 3 The helper provides less than half the effort to complete the activity 2 The helper provides more than half the effort to complete the activity 1 Dependent. The helper does all the effort to complete an activity 7 Patient refused to complete or attempt activity 9 The patient did not perform the activity before the current illness or injury 88 Not attempted due to Medical conditions or safety concerns Transfers (B, C, W/C) (FIM): 5 (SBA for supine-sit and sit-stand. SBA to ambulate with walker.) Other Treatment Pt. agrees to work with OT. Pt. would like to see an ICU nurse that worked with him. Pt. ambulated with walker with SBA approximately 30 feet. Requested to sit down in wheelchair. Attempted to have pt. self propel, but pt. not able to do it well. OT pushed him rest of way to ICU floor via elevator. Pt. able to see the nurses that worked with him. Does not remember the events of being in ICU, on the vent, or after. Went back to rehab floor. Completed armbike x 20 minutes at minimal resistance with multiple rest breaks. Tolerated this well. Pt. requests to have hot pack for shoulder area. Transferred to mat into supine position with SBA, and OT applied heat. Completed gentle PROM to left shoulder and gentle stretch to bilateral pectorals. No tightness noted upon palpation in left trap. However, pt. reports that he had a frozen shoulder that he finished PT for before having neck surgery. Pt. admitted to not completing home exercise program after therapy. Pt. is encouraged to do more for self. Pt. states that he feels that he is, but does require constant encouragement to complete tasks on his own. Ambulated back to room. Transferred to bed with SBA. Applied heat and educated nursing on monitoring of heat pack and taking off. Nurse verbalizes understanding. Education OT Patient Education: Correct positioning, Exercise program, Home exercise program, Modified ADL techniques, Progress toward Goal/Update tx plan, Purpose of tx/functional activities, Reviewed precautions, Rehab process, Transfer techniques Teaching Recipient: Patient Teaching Methods: Demonstration, Discussion Response to Teaching: Verbalize Understanding, Return Demonstration OT Short Term Goals Short Term Goals Time Frame: Mar 03, 2018 Bathing(FIM): 4 Lower Body Dressing(FIM): 4 Toileting(FIM): 4 Toilet/Commode Transfer(FIM): 4 Additional Short Term Goals: 2-Verbalize Understanding, 3-ImproveStrength/[place] 1=Demonstrate adherence to instructed precautions during ADL tasks. 2=Patient will verbalize/demonstrate understanding of assistive devices/ modifications for ADL. 3=Patient will improve strength/tolerance for activity to enable patient to perform ADL's. OT Longterm Goals Confidential Investigator Goals Time Frame: Mar 17, 2018 Eating (FIM): 7 Eating (QC): 6 Groomin Oral Hygiene (QC): 6 Bathing(FIM): 5 Shower/Bathe Self (QC): 5 Upper Body Dressing(FIM): 6 Upper Body Dressing (QC): 6 Lower Body Dressing(FIM): 5 Lower Body Dressing (QC): 5 On/Off Footwear (QC): 5 Toileting(FIM): 5 Toileting Hygiene (QC): 5 Toilet/Commode Transfer(FIM): 5 Toilet/Commode Transfer (QC): 5 Shower Transfer(FIM): 5 Additional Goals: 1-Demonstrate ADL Tasks, 2-Verbalize Understanding, 3- ImproveStrength/[place] 1=Demonstrate adherence to instructed precautions during ADL tasks. 2=Patient will verbalize/demonstrate understanding of assistive devices/ modifications for ADL. 3=Patient will improve strength/tolerance for activity to enable patient to perform ADL's. OT Education/Plan Problem List/Assessment Assessment: Decreased Activ Tolerance, Decreased UE Strength, Impaired I ADL's , Impaired Self-Care Skills, Restricted Funct UE ROM Discharge Recommendations Plan/Recommendations: Continue POC Therapy D/C Recommendations: Home w/ Family Support, Occupational Therapy Home Care Equpiment Recommendations-D/C: Extended Bath Bench Treatment Plan/Plan of Care Treatment,Training & Education: Yes Patient would benefit from OT for education, treatment and training to promote independence in ADL's, mobility, safety and/or upper extremity function for ADL' s. Plan of Care: ADL Retraining, Functional Mobility, Group Exercise/Act as Ind, UE Funct Exercise/Act Treatment Duration: Mar 17, 2018 Frequency: Modified Program (IRF) (25/12) Estimated Hrs Per Day: 1.5 hours per day Agreement: Yes Rehab Potential: Good Time/GCodes Start Time: 10:00 Stop Time: 11:30 Total Time Billed (hr/min): 90 Billed Treatment Time 1, FA x 30minutes, Ex x 30minutes, NM x 30minutes RICHARD LING OT Mar 09, 2018 14:34
--- NOTE | 2018-03-09 15:32 | Cardiology Progress Note ---
Subjective Date Seen by Provider: Mar 09, 2018 Time Seen by Provider: 08:00 Subjective/Events-last exam Patient was seen at bedside, laying down in bed, denied any chest pain, still having edema Review of Systems General: No Chills, No Night Sweats; Fatigue; No Malaise, No Appetite, No Other HEENT: No Head Aches, No Visual Changes, No Eye Pain, No Ear Pain, No Dysphasia , No Sinus Congestion, No Post Nasal Drip, No Sore Throat, No Other Pulmonary: Dyspnea; No Cough, No Pleuritic Chest Pain, No Other Cardiovascular: Edema; No: Chest Pain, Palpitations, Orthopnea, Paroxysmal Noc. Dyspnea, Lt Headedness, Other Objective-Cardiology Exam Last Set of Vital Signs Vital Signs 03/08/18 03/09/18 03/09/18 03/09/18 21:00 06:00 08:00 09:00 Temp 98.6 Pulse 82 Resp 18 B/P (MAP) 147/78 (101) Pulse Ox 93 O2 Delivery Room Air FiO2 93 Capillary Refill : I&O Intake and Output 03/09/18 00:00 Intake Total 1862 ml Output Total 2050 ml Balance -188 ml Intake Oral 1862 ml Output Urine Total 2050 ml # Voids 1 General: Alert, Oriented X3, Cooperative, No Acute Distress HEENT: Atraumatic, PERRLA, EOMI, Mucous Memb Moist/[place] Neck: Other (Neck brace) Lungs: Clear to Auscultation Heart: Regular Rate, Normal S1, Normal S2 Abdomen: Normal Bowel Sounds, Soft, No Tenderness Extremities: No Clubbing, Normal Pulses, Other (+ 2-3 edema BLE) Skin: No Rashes Neuro: Normal Speech, Strength at 5/5 X4 Ext, Other (generalized weakness) Psych/Mental Status: Mental Status NL Results Lab Laboratory Tests 03/09/18 05:30 A/P-Cardiology Admission Diagnosis Acute renal failure Peripheral edema Coronary artery disease Hypertension Assessment/Plan Generalized weakness and loss of energy secondary to complicated hospital stay after neck surgery, had pneumonia, bacteremia, received antibiotic and reporting improvement. Peripheral edema, +2-3. Acute on chronic renal failure, continue on limiting salt intake and diuretics and monitor renal function closely Anemia, s/p transfusion. Dr. Kumar managing. Hyperkalemia,improved. Discontinued losartan, continue to monitor electrolytes and renal function while receiving Lasix Echocardiogram was done at [facility] on February 14, 2018 showing moderate LVH, moderately dilated left atrium, diastolic dysfunction, estimated PA pressure 40 mmHg, ejection fraction 50-55 percent. Patient has refused to take Lovenox due to bleeding, using SCD. Acute on chronic renal insufficiency. Continue to monitor. History of coronary artery disease, history of mid LAD stenting using Alpine 3.0 18 mm done in June 2017, mild to moderate disease in the proximal portion of the LAD, moderate disease at the distal circumflex artery. Continue to monitor History of diabetes mellitus, diabetic neuropathy, followed and managed by primary care physician History of hyperlipidemia with intolerance to statin. Spinal stenosis, status post C3-7 ACDF with C5 corpectomy done by Dr. Hardwick History of carotid stenosis, last ultrasound was done in July 2017. Continue to monitor History of respiratory failure secondary to pneumonia. Improved. Continue to monitor Clinical Quality Measures DVT/VTE Risk/Contraindication: Risk Factor Score Per Nursin RFS Level Per Nursing on Admit: 4+=Very High KAREN YANG MD Mar 09, 2018 15:32
[2018-03-09 15:34] VITALS: BP 126/73
[2018-03-09] MEDS ORDERED: METOLAZONE 5 MG (ZAROXOLYN) TAB PO NR (15:45)
--- NOTE | 2018-03-09 19:41 | PM & R (SOAP) Progress Note ---
Subjective This was a face to face visit with the patient. Date Seen by Provider: Mar 09, 2018 Time Seen by Provider: 18:40 Subjective/Events-last exam Patient was seen in his room this evening Patient SBA for transfers.Appreciate DR Hirsch note and orders.Discussed case with DR Osman yesterday He belives patient has chronic anemia and may benefit from Aranesp injections or equivalent He will f/u Date Identified: Mar 09, 2018 Time Identified: 18:50 Medication Intervention: Mad added by Cardiology see orders Objective Physician Exam Last Set of Vital Signs Vital Signs Date Time Temp Pulse Resp B/P (MAP) Pulse Ox O2 Delivery O2 Flow Rate FiO2 03/09/18 17:02 Room Air 03/09/18 15:34 98.2 78 14 126/73 (90) 91 03/08/18 21:00 93 Capillary Refill : I&O Intake and Output 03/09/18 00:00 Intake Total 1862 ml Output Total 2050 ml Balance -188 ml Intake Oral 1862 ml Output Urine Total 2050 ml # Voids 1 General: Alert, Oriented X3, Cooperative, No Acute Distress HEENT: Atraumatic, PERRLA, EOMI, Mucous Memb Moist/[place] Neck: Other (Neck brace) Lungs: Clear to Auscultation Heart: Regular Rate, Normal S1, Normal S2 Abdomen: Normal Bowel Sounds, Soft, No Tenderness Extremities: No Clubbing, Normal Pulses, Other (+ 2-3 edema BLE) Skin: No Rashes Neuro: Normal Speech, Strength at 5/5 X4 Ext, Other (generalized weakness) Psych/Mental Status: Mental Status NL Results Lab Data Laboratory Tests 03/06/18 21:33: Glucometer 144H 03/07/18 06:36: Glucometer 157H 03/07/18 06:50: White Blood Count 5.5, Red Blood Count 2.52L, Hemoglobin 7.0L, Hematocrit 23L, Mean Corpuscular Volume 91, Mean Corpuscular Hemoglobin 28, Mean Corpuscular Hemoglobin Concent 31L, Red Cell Distribution Width 15.0H, Platelet Count 155, Mean Platelet Volume 10.4, Sodium Level 142, Potassium Level 4.9, Chloride Level 109H, Carbon Dioxide Level 24, Anion Gap 9, Blood Urea Nitrogen 54H, Creatinine 1.93H, Estimat Glomerular Filtration Rate 37, BUN/Creatinine Ratio 28 , Glucose Level 147H, Calcium Level 8.6, Magnesium Level 2.0, B-Type Natriuretic Peptide 379.6H 03/07/18 11:30: White Blood Count 6.3, Red Blood Count 2.74L, Hemoglobin 7.6L, Hematocrit 25L, Mean Corpuscular Volume 91, Mean Corpuscular Hemoglobin 28, Mean Corpuscular Hemoglobin Concent 31L, Red Cell Distribution Width 14.9H, Platelet Count 170, Mean Platelet Volume 10.4, Neutrophils (%) (Auto) 73, Lymphocytes (%) (Auto) 12 , Monocytes (%) (Auto) 9, Eosinophils (%) (Auto) 5, Basophils (%) (Auto) 0, Neutrophils # (Auto) 4.6, Lymphocytes # (Auto) 0.8L, Monocytes # (Auto) 0.6, Eosinophils # (Auto) 0.3, Basophils # (Auto) 0.0, Neutrophils % (Manual) 79, Lymphocytes % (Manual) 10, Monocytes % (Manual) 5, Eosinophils % (Manual) 6, Absolute Reticulocyte Count 75, Percent Reticulocyte Count 2.72H, Iron Level 41 , Total Iron Binding Capacity 246L, Unsaturated Iron Binding Capacity 205, Transferrin % Saturation 17, Ferritin 224.0 03/07/18 11:36: Glucometer 164H 03/07/18 16:33: Glucometer 201H 03/07/18 20:51: Glucometer 242H 03/08/18 04:45: White Blood Count 5.8, Red Blood Count 2.59L, Hemoglobin 7.5L, Hematocrit 23L, Mean Corpuscular Volume 90, Mean Corpuscular Hemoglobin 29, Mean Corpuscular Hemoglobin Concent 32, Red Cell Distribution Width 14.8H, Platelet Count 167, Mean Platelet Volume 10.0, Sodium Level 140, Potassium Level 5.3H, Chloride Level 108H, Carbon Dioxide Level 22, Anion Gap 10, Blood Urea Nitrogen 56H, Creatinine 1.89H, Estimat Glomerular Filtration Rate 38, BUN/Creatinine Ratio 30 , Glucose Level 147H, Calcium Level 8.7 03/08/18 11:23: Glucometer 165H 03/08/18 16:33: Glucometer 203H 03/08/18 20:36: Glucometer 184H 03/09/18 05:30: White Blood Count 5.6, Red Blood Count 2.60L, Hemoglobin 7.5L, Hematocrit 24L, Mean Corpuscular Volume 91, Mean Corpuscular Hemoglobin 29, Mean Corpuscular Hemoglobin Concent 32, Red Cell Distribution Width 14.9H, Platelet Count 164, Mean Platelet Volume 10.6H, Sodium Level 142, Potassium Level 5.0, Chloride Level 109H, Carbon Dioxide Level 23, Anion Gap 10, Blood Urea Nitrogen 59H, Creatinine 1.93H, Estimat Glomerular Filtration Rate 37, BUN/Creatinine Ratio 31 , Glucose Level 164H, Calcium Level 8.9 03/09/18 11:30: Glucometer 149H 03/09/18 15:34: Glucometer 190H Assessment/Plan Assessment and Plan Spinal stenosis s/p C3-7 ACDF with C5 corpectomy done by DR Hardwick orthospine Postop anemia /chronic anemia DR osman following Peripheral edema improving Hyperkalemia improved General debil secondary to postop anemia associated with coag neg staph bacteremia improved s/p course of triple antibiotic Pyelonephritis by CT improved HCAP treated DM2 controlled HTN controlled CHF treated Hypoalbuminemia HLP Plan Continue PT/OT Discharge to home once medically stable and Son and HHC able to assist Will f/u with SW re details Co-Morbidities that are continuing to impact the rehab process: (include details ) SALEEM AMATO MD Mar 09, 2018 19:41
[2018-03-09] MEDS: ROSUVASTATIN 5 MG (CRESTOR) TABLET PO SCH (20:45)
[2018-03-10] MEDS: MELATONIN 3 MG TABLET PO PRN (00:29)
[2018-03-10 04:53] LABS: HEMOGLOBIN 7.5 G/DL (13.3-17.7); MEAN PLATELET VOLUME 10.5 FL (7.4-10.4); RED BLOOD COUNT 2.55 10^6/uL (4.35-5.85); RED CELL DISTRIBUTION WIDTH 14.5 % (10.0-14.5); WHITE BLOOD COUNT 5.6 10^3/uL (4.3-11.0)
[2018-03-10 05:00] VITALS: BP 115/66
[2018-03-10 05:10] LABS: CALCIUM 8.7 MG/DL (8.5-10.1); CREATININE SERUM 1.88 MG/DL (0.60-1.30); MAGNESIUM 2.2 MG/DL (1.8-2.4); POTASSIUM 4.7 MMOL/L (3.6-5.0)
[2018-03-10] MEDS: FERROUS SULF 325 MG (IRON) TAB PO SCH ×2 (05:58→16:39)
[2018-03-10] MEDS: PANTOPRAZOLE 40 MG (PROTONIX) TAB PO SCH (05:58)
[2018-03-10] MEDS: GLIMEPIRIDE 4 MG (AMARYL) TAB PO SCH (05:58)
[2018-03-10] MEDS: inSUlin ASPART (NovoLOG) 1 UNIT/0.01 ML (CHARGE PER UNIT) SC SCH ×4 (06:00→22:45)
--- NOTE | 2018-03-10 07:18 | Progress Note (SOAP) ---
Subjective Time Seen by a Provider: 07:16 Subjective/Events-last exam Patient voices no complaints. Blood tests stable. Renal insufficiency. Anemia. Objective Exam Vital Signs Date Time Temp Pulse Resp B/P (MAP) Pulse Ox O2 Delivery O2 Flow Rate FiO2 03/10/18 05:00 98.4 74 20 115/66 (82) 94 NIV CPAP 03/09/18 20:45 Room Air 93 03/09/18 17:02 Room Air 03/09/18 15:34 98.2 78 14 126/73 (90) 91 Room Air 03/09/18 09:00 Room Air 03/09/18 08:00 82 147/78 (101) I & O 03/10/18 07:00 Intake Total 2680 ml Output Total 2500 ml Balance 180 ml Capillary Refill : General Appearance: No Apparent Distress, WD/WN HEENT: Normal ENT Inspection Cardiovascular: Regular Rate, Rhythm, No Murmur Gastrointestinal: non tender, soft Results Lab Laboratory Tests 03/09/18 11:30: Glucometer 149H 03/09/18 15:34: Glucometer 190H 03/09/18 20:08: Glucometer 216H 03/10/18 04:47: White Blood Count 5.6, Red Blood Count 2.55L, Hemoglobin 7.5L, Hematocrit 23L, Mean Corpuscular Volume 91, Mean Corpuscular Hemoglobin 29, Mean Corpuscular Hemoglobin Concent 32, Red Cell Distribution Width 14.5, Platelet Count 163, Mean Platelet Volume 10.5H, Sodium Level 141, Potassium Level 4.7, Chloride Level 109H, Carbon Dioxide Level 24, Anion Gap 8, Blood Urea Nitrogen 57H, Creatinine 1.88H, Estimat Glomerular Filtration Rate 38, BUN/Creatinine Ratio 30 , Glucose Level 142H, Calcium Level 8.7, Magnesium Level 2.2 Assessment/Plan Assessment/Plan Assess & Plan/Chief Complaint Diabetes. Coagulase negative bacteremia. Recent cervical surgery. Myopathy. Weakness. Renal insufficiency. . 03/01/18. Diabetes doing better. Coagulase negative bacteremia. Recent cervical surgery. Myopathy. Weakness. Renal insufficiency.. . To 03/02/18. Weakness. Renal insufficiency. Coagulase negative bacteremia. Hemoglobin 6.7. Patient to get 1 unit of packed red blood cells today 03/03/18: Weakness. Renal insufficiency. Anemia, Hemoglobin 7.7 DM. GABRIELLA.. . 03/06/18. Weakness. Renal insufficiency. Anemia. Diabetes. GABRIELLA. Patient gained 8 pounds.. . 03/07/18. Weakness. Renal insufficiency. Anemia. Diabetes. Patient weight stabilized today. Patient more anemic. GFR decreasing. . 03/08/18. Weakness. Anemia. Renal insufficiency. Recent cervical surgery.. . 03/09/18. Weakness. Anemia. Renal insufficiency. Recent cervical surgery. Diabetes. . . Weakness. Anemia. Renal insufficiency. Recent cervical surgery. Diabetes Clinical Quality Measures DVT/VTE Risk/Contraindication: Risk Factor Score Per Nursin RFS Level Per Nursing on Admit: 4+=Very High MARIIA SIM DO Mar 10, 2018 07:18
[2018-03-10] MEDS: GABAPENTIN 600 MG (NEURONTIN) TAB PO SCH ×3 (09:05→20:24)
[2018-03-10] MEDS: LORATADINE (CLARITIN) 10 MG TAB PO SCH (09:05)
[2018-03-10] MEDS: hydrALAZINE (APRESOLINE) 25 MG TAB PO SCH ×3 (09:06→20:24)
[2018-03-10] MEDS: amLODIPine 10 MG (NORVASC) TAB PO SCH (09:06)
[2018-03-10] MEDS: meTOprolol TARTRATE 50 MG (LOPRESSOR) TAB PO SCH ×2 (09:06→20:24)
[2018-03-10] MEDS: FUROSEMIDE 40 MG (LASIX) TAB PO SCH (09:06)
[2018-03-10] MEDS: ASPIRIN E.C. 81 MG (ECOTRIN) TAB PO SCH (09:06)
[2018-03-10] MEDS: MENTHOL/ZINC OXIDE (CALMOSEPTINE) 113 GM TUBE TOP SCH ×2 (09:38→20:25)
[2018-03-10] MEDS: MICONAZOLE 2% POWDER (DESENEX AF) 90 GM TOP SCH ×2 (09:38→20:25)
--- NOTE | 2018-03-10 10:03 | Physical Therapy Daily Note ---
PT Daily Note-Current Subjective pt in bed pre tx, agrees to PT, pain 6/10 in neck Appearance pt in bed post tx w/ phone, call light, tray, all needs met Mental Status Patient Orientation: Normal For Age cervical collar Transfers Functional [place] Measure 0=Not Assessed/NA 4=Minimal Assistance 1=Total Assistance 5=Supervision or Setup 2=Maximal Assistance 6=Modified [place] 3=Moderate Assistance 7=Complete IndependenceIRFPAI Quality Coding Scale 6 Independent with activity with or without an assistive device 5 Patient requires set up or clean up by helper. Patient completes activity by themselves 4 Supervision or touching assist (CGA). [place] provide cues , steadying assist 3 The helper provides less than half the effort to complete the activity 2 The helper provides more than half the effort to complete the activity 1 Dependent. The helper does all the effort to complete an activity 7 Patient refused to complete or attempt activity 9 The patient did not perform the activity before the current illness or injury 88 Not attempted due to Medical conditions or safety concerns Transfers (B, C, W/C) (FIM): 5 Supine to/from Sit: 6 Sit to/from Stand: 5 sit<->stand SBA Weight Bearing Right Lower Extremity: Right Full Weight Bearing Left Lower Extremity: Left Full Weight Bearing Gait Training Does the Patient Walk?: Yes Gait (FIM): 5 Distance: 200', 100' Gait Level of Assist: 5 Gait Persons Needed: 1 Gait Assistive Device: FWW pt ambulates to/from gym using FWW w/ SBA, gait is slow but steady, pt needs frequent standing rest breaks, pt demonstrates excessive knee extension bilaterally due to quad weakness Exercises Seated Therapy Exercises: Sit to stand, Long arc quads (3# wt, 5') Seated Reps: 10 NuStep Minutes: 15 NuStep Workload: 6 Treatments gait training, functional strengthening, endurance training Assessment Current Status: Fair Progress improving sit<->stand stability and endurance PT Short Term Goals Short Term Goals Time Frame: Mar 03, 2018 Gait (FIM): 2 (met) Gait Distance Comment: 100' Gait Level of Assist: 4 Gait Assistive Device: FWW Wheelchair Distance: 150'x3 PT Retirement Goals Public Relations Intern Goals PT Public Relations Intern Goals Time Frame: Mar 17, 2018 Transfers (B,C,W/C) (FIM): 5 (met) Sit to Lying (QC): 4 Lying-Sitting on Side/Bed(QC): 4 Sit to Stand (QC): 4 Rollin Roll Left to Right (QC): 4 Chair/Hok-ur-Ipxbv Xfer(QC): 4 Car Transfer (QC): 4 Gait (FIM): 5 (met) Distance: 150' Walk 10 feet (QC): 4 Walk 10ft-Uneven Surface(QC): 4 Walk 50ft with 2 Turns (QC): 4 Walk 150 ft (QC): 4 Gait Level of Assist: 5 Gait Assistive Device: FWW Stairs (FIM): 2 # of Steps: 4 1 Step (curb) (QC): 4 4 Steps (QC): 4 Stairs Level Of Assist: 4 PT Plan Problem List Problem List: Activity Tolerance, Functional Strength, Safety, Balance, Gait, Transfer, Bed Mobility Treatment/Plan Treatment Plan: Continue Plan of Care Treatment Plan: Bed Mobility, Education, Functional Activity [place], Functional Strength, Group Therapy, Gait, Safety, Therapeutic Exercise, Transfers Treatment Duration: Mar 17, 2018 Frequency: At least 5 of 7 days/Wk (IRF) Estimated Hrs Per Day: 1.5 hours per day Patient and/or Family Agrees t: Yes Safety Risks/Education Patient Education: Gait Training, Transfer Techniques, Reviewed Precautions, Correct Positioning, Reviewed Don/Doff Brace, Safety Issues Teaching Recipient: Patient Teaching Methods: Demonstration, Discussion Response to Teaching: Reinforcement Needed Time/GCodes Time In: 0900 Time Out: 1000 Total Billed Treatment Time: 60 Total Billed Treatment 1 visit GT 15' EX 45' MARCELL BADILLO PT Mar 10, 2018 10:03
--- NOTE | 2018-03-10 11:57 | Cardiology Progress Note ---
Subjective Date Seen by Provider: Mar 10, 2018 Time Seen by Provider: 11:55 Subjective/Events-last exam Patient is in bed, feeling better, still having edema and dyspnea Review of Systems General: No Chills, No Night Sweats; Fatigue; No Malaise, No Appetite, No Other HEENT: No Head Aches, No Visual Changes, No Eye Pain, No Ear Pain, No Dysphasia , No Sinus Congestion, No Post Nasal Drip, No Sore Throat, No Other Pulmonary: Dyspnea; No Cough, No Pleuritic Chest Pain, No Other Cardiovascular: Edema; No: Chest Pain, Palpitations, Orthopnea, Paroxysmal Noc. Dyspnea, Lt Headedness, Other Objective-Cardiology Exam Last Set of Vital Signs Vital Signs 03/09/18 03/10/18 03/10/18 20:45 05:00 08:55 Temp 98.4 Pulse 74 Resp 20 B/P (MAP) 115/66 (82) Pulse Ox 94 O2 Delivery Room Air FiO2 93 Capillary Refill : I&O Intake and Output 03/10/18 00:00 Intake Total 1824 ml Output Total 2625 ml Balance -801 ml Intake Oral 1824 ml Output Urine Total 2625 ml # Voids 2 # Bowel Movements 2 General: Alert, Oriented X3, Cooperative, No Acute Distress HEENT: Atraumatic, PERRLA, EOMI, Mucous Memb Moist/[place] Neck: Other (Neck brace) Lungs: Clear to Auscultation Heart: Regular Rate, Normal S1, Normal S2 Abdomen: Normal Bowel Sounds, Soft, No Tenderness Extremities: No Clubbing, Normal Pulses, Other (+ 2-3 edema BLE) Skin: No Rashes Neuro: Normal Speech, Strength at 5/5 X4 Ext, Other (generalized weakness) Psych/Mental Status: Mental Status NL Results Lab Laboratory Tests 03/10/18 04:47 A/P-Cardiology Admission Diagnosis Acute renal failure Peripheral edema Coronary artery disease Hypertension Assessment/Plan Generalized weakness and loss of energy secondary to complicated hospital stay after neck surgery, had pneumonia, bacteremia, received antibiotic and reporting improvement. Peripheral edema, +2-3. Acute on chronic renal failure, given Zaroxolyn yesterday and had 2800 ml out, continue to monitor Anemia, s/p transfusion. Dr. Kumar managing. Continue to monitor Hyperkalemia,improved. Discontinued losartan, continue to monitor electrolytes and renal function while receiving Lasix Echocardiogram was done at [facility] [place] on February 14, 2018 showing moderate LVH, moderately dilated left atrium, diastolic dysfunction, estimated PA pressure 40 mmHg, ejection fraction 50-55 percent. Patient has refused to take Lovenox due to bleeding, using SCD. Acute on chronic renal insufficiency. Continue to monitor. History of coronary artery disease, history of mid LAD stenting using Alpine 3.0 18 mm done in June 2017, mild to moderate disease in the proximal portion of the LAD, moderate disease at the distal circumflex artery. Continue to monitor History of diabetes mellitus, diabetic neuropathy, followed and managed by primary care physician History of hyperlipidemia with intolerance to statin. Spinal stenosis, status post C3-7 ACDF with C5 corpectomy done by Dr. Hardwick History of carotid stenosis, last ultrasound was done in July 2017. Continue to monitor History of respiratory failure secondary to pneumonia. Improved. Continue to monitor Clinical Quality Measures DVT/VTE Risk/Contraindication: Risk Factor Score Per Nursin RFS Level Per Nursing on Admit: 4+=Very High KAREN YANG MD Mar 10, 2018 11:57
--- NOTE | 2018-03-10 13:09 | PM & R (SOAP) Progress Note ---
Subjective This was a face to face visit with the patient. Date Seen by Provider: Mar 10, 2018 Time Seen by Provider: 08:00 Subjective/Events-last exam Patient was seen in his room this AM Appreciate Cardiology note and orders Patient SBA for Transfers Date Identified: Mar 10, 2018 Time Identified: 08:00 Medication Intervention: Medications dajusted for peripheral edema and Hyperkalemia by Cardiology Review of Systems Cardiovascular: Edema Objective Physician Exam Last Set of Vital Signs Vital Signs Date Time Temp Pulse Resp B/P (MAP) Pulse Ox O2 Delivery O2 Flow Rate FiO2 03/10/18 08:55 Room Air 03/10/18 05:00 98.4 74 20 115/66 (82) 94 03/09/18 20:45 93 Capillary Refill : I&O Intake and Output 03/10/18 00:00 Intake Total 1824 ml Output Total 2625 ml Balance -801 ml Intake Oral 1824 ml Output Urine Total 2625 ml # Voids 2 # Bowel Movements 2 General: Alert, Oriented X3, Cooperative, No Acute Distress HEENT: Atraumatic, PERRLA, EOMI, Mucous Memb Moist/[place] Neck: Other (Neck brace) Lungs: Clear to Auscultation Heart: Regular Rate, Normal S1, Normal S2 Abdomen: Normal Bowel Sounds, Soft, No Tenderness Extremities: No Clubbing, Normal Pulses, Other (+ 2-3 edema BLE) Skin: No Rashes Neuro: Normal Speech, Strength at 5/5 X4 Ext, Other (generalized weakness) Psych/Mental Status: Mental Status NL Results Lab Data Laboratory Tests 03/07/18 16:33: Glucometer 201H 03/07/18 20:51: Glucometer 242H 03/08/18 04:45: White Blood Count 5.8, Red Blood Count 2.59L, Hemoglobin 7.5L, Hematocrit 23L, Mean Corpuscular Volume 90, Mean Corpuscular Hemoglobin 29, Mean Corpuscular Hemoglobin Concent 32, Red Cell Distribution Width 14.8H, Platelet Count 167, Mean Platelet Volume 10.0, Sodium Level 140, Potassium Level 5.3H, Chloride Level 108H, Carbon Dioxide Level 22, Anion Gap 10, Blood Urea Nitrogen 56H, Creatinine 1.89H, Estimat Glomerular Filtration Rate 38, BUN/Creatinine Ratio 30 , Glucose Level 147H, Calcium Level 8.7 03/08/18 11:23: Glucometer 165H 03/08/18 16:33: Glucometer 203H 03/08/18 20:36: Glucometer 184H 03/09/18 05:30: White Blood Count 5.6, Red Blood Count 2.60L, Hemoglobin 7.5L, Hematocrit 24L, Mean Corpuscular Volume 91, Mean Corpuscular Hemoglobin 29, Mean Corpuscular Hemoglobin Concent 32, Red Cell Distribution Width 14.9H, Platelet Count 164, Mean Platelet Volume 10.6H, Sodium Level 142, Potassium Level 5.0, Chloride Level 109H, Carbon Dioxide Level 23, Anion Gap 10, Blood Urea Nitrogen 59H, Creatinine 1.93H, Estimat Glomerular Filtration Rate 37, BUN/Creatinine Ratio 31 , Glucose Level 164H, Calcium Level 8.9, Vitamin B12 Level 355, Red Blood Cell Folate Hematocrit 23.9L 03/09/18 11:30: Glucometer 149H 03/09/18 15:34: Glucometer 190H 03/09/18 20:08: Glucometer 216H 03/10/18 04:47: White Blood Count 5.6, Red Blood Count 2.55L, Hemoglobin 7.5L, Hematocrit 23L, Mean Corpuscular Volume 91, Mean Corpuscular Hemoglobin 29, Mean Corpuscular Hemoglobin Concent 32, Red Cell Distribution Width 14.5, Platelet Count 163, Mean Platelet Volume 10.5H, Sodium Level 141, Potassium Level 4.7, Chloride Level 109H, Carbon Dioxide Level 24, Anion Gap 8, Blood Urea Nitrogen 57H, Creatinine 1.88H, Estimat Glomerular Filtration Rate 38, BUN/Creatinine Ratio 30 , Glucose Level 142H, Calcium Level 8.7, Magnesium Level 2.2 03/10/18 10:51: Glucometer 175H Assessment/Plan Assessment and Plan Spinal stenosis s/p C3 to 7 ACDF with C5 corpectomy done by DR Ronen lehman Postop anemia stable 7.5 Erythropoetin level pending Hyperkalemia resolved with d/c of losartan by Cardiology now 4.4 Peripheral edema Zaroxylin added to regimen Dr Fournier managing General ebil secondary to postop anmeia associated with Coag negative staph bacteremia improved s/p course of triple antibiotic Pyelonephritis by CT treated HCAP treated DM 2 controlled HTN controlled CHF treated Hypoalbuminemia HLP Plan Continue PT/OT F/U with DR nicolas(PCP) and Cardiology and DR Bain F/u re erythropoitin level Probable discharge next week Will f/u with SW re details Co-Morbidities that are continuing to impact the rehab process: (include details ) SALEEM AMATO MD Mar 10, 2018 13:09
--- NOTE | 2018-03-10 14:14 | Physical Therapy Daily Note ---
PT Daily Note-Current Subjective pt outside w/ OT pre tx, agrees to PT, no pain to report Appearance pt in bed post tx, w/ phone, call light, tray, all needs met Mental Status Patient Orientation: Normal For Age Transfers Functional [place] Measure 0=Not Assessed/NA 4=Minimal Assistance 1=Total Assistance 5=Supervision or Setup 2=Maximal Assistance 6=Modified [place] 3=Moderate Assistance 7=Complete IndependenceIRFPAI Quality Coding Scale 6 Independent with activity with or without an assistive device 5 Patient requires set up or clean up by helper. Patient completes activity by themselves 4 Supervision or touching assist (CGA). [place] provide cues , steadying assist 3 The helper provides less than half the effort to complete the activity 2 The helper provides more than half the effort to complete the activity 1 Dependent. The helper does all the effort to complete an activity 7 Patient refused to complete or attempt activity 9 The patient did not perform the activity before the current illness or injury 88 Not attempted due to Medical conditions or safety concerns Transfers (B, C, W/C) (FIM): 5 Supine to/from Sit: 6 Sit to/from Stand: 5 supine<->sit mod I, sit<->stand SBA, Cristiane from lower surfaces, pt needs Cristiane for sit->stand from park bench Weight Bearing Right Lower Extremity: Right Full Weight Bearing Left Lower Extremity: Left Full Weight Bearing Gait Training Does the Patient Walk?: Yes Gait (FIM): 5 Distance: 100'x2, 200'x2 Gait Level of Assist: 5 Gait Assistive Device: FWW pt ambulates around and from courtyard back to room, including up/down 20' ramp incline, gait is steady w/ no LOB, but pt demonstrates excessive knee extension bilaterally, pt requires frequent standing rest breaks when ambulating longer distances Treatments gait training Assessment Current Status: Fair Progress improving endurance, sit<-stand stability, and ability to ambulate over community surfaces PT Short Term Goals Short Term Goals Time Frame: Mar 03, 2018 Gait (FIM): 2 (met) Gait Distance Comment: 100' Gait Level of Assist: 4 Gait Assistive Device: FWW Wheelchair Distance: 150'x3 PT [place] Fire Fighter Specialist Goals [place] [employer] Fighter Specialist Goals PT Correction Goals Time Frame: Mar 17, 2018 Transfers (B,C,W/C) (FIM): 5 (met) Sit to Lying (QC): 4 Lying-Sitting on Side/Bed(QC): 4 Sit to Stand (QC): 4 Rollin Roll Left to Right (QC): 4 Chair/Omr-vd-Mssku Xfer(QC): 4 Car Transfer (QC): 4 Gait (FIM): 5 (met) Distance: 150' Walk 10 feet (QC): 4 Walk 10ft-Uneven Surface(QC): 4 Walk 50ft with 2 Turns (QC): 4 Walk 150 ft (QC): 4 Gait Level of Assist: 5 Gait Assistive Device: FWW Stairs (FIM): 2 # of Steps: 4 1 Step (curb) (QC): 4 4 Steps (QC): 4 Stairs Level Of Assist: 4 PT Plan Problem List Problem List: Activity Tolerance, Functional Strength, Safety, Balance, Gait, Transfer, Bed Mobility, ROM Treatment/Plan Treatment Plan: Continue Plan of Care Treatment Plan: Bed Mobility, Education, Functional Activity [place], Functional Strength, Group Therapy, Gait, Safety, Therapeutic Exercise, Transfers Treatment Duration: Mar 17, 2018 Frequency: At least 5 of 7 days/Wk (IRF) Estimated Hrs Per Day: 1.5 hours per day Patient and/or Family Agrees t: Yes Safety Risks/Education Patient Education: Gait Training, Transfer Techniques, Correct Positioning, Safety Issues Teaching Recipient: Patient Teaching Methods: Demonstration, Discussion Response to Teaching: Reinforcement Needed Time/GCodes Time In: 1330 Time Out: 1400 Total Billed Treatment Time: 30 Total Billed Treatment 1 visit GT 30' MARCELL BADILLO PT Mar 10, 2018 14:14
--- NOTE | 2018-03-10 14:17 | Occupational Ther Daily Note ---
OT Current Status-Daily Note Subjective No pain reported. Appearance Pt. agrees to shower. Mental Status/Objective Patient Orientation: Person, Place Functional [place] Measure 0=Not Assessed/NA 4=Minimal Assistance 1=Total Assistance 5=Supervision or Setup 2=Maximal Assistance 6=Modified [place] 3=Moderate Assistance 7=Complete [place] ADL-Treatment Functional [place] Measure 0=Not Assessed/NA 4=Minimal Assistance 1=Total Assistance 5=Supervision or Setup 2=Maximal Assistance 6=Modified [place] 3=Moderate Assistance 7=Complete IndependenceIRFPAI Quality Coding Scale 6 Independent with activity with or without an assistive device 5 Patient requires set up or clean up by helper. Patient completes activity by themselves 4 Supervision or touching assist (CGA). [place] provide cues , steadying assist 3 The helper provides less than half the effort to complete the activity 2 The helper provides more than half the effort to complete the activity 1 Dependent. The helper does all the effort to complete an activity 7 Patient refused to complete or attempt activity 9 The patient did not perform the activity before the current illness or injury 88 Not attempted due to Medical conditions or safety concerns Grooming (FIM): 5 Bathing (FIM): 5 Shower/Bathe Self (QC): 4 Upper Body (FIM): 5 Upper Body Dressing (QC): 4 Lower Body Dressing (FIM): 3 (Pt. requires assistance to pull pants over hips, and assist to don socks with sock aide.) Lower Body Dressing (QC): 3 On/Off Footwear (QC): 3 Transfers (B, C, W/C) (FIM): 4 Shower Transfer(FIM): 4 Other Treatment Pt. requires encouragement. Encouraged to do more for self. Pt. showers and dons clothing. Utilizes AE but has difficulty with this. Becomes frustrated. Encouraged to continue with tasks. Ambulated to therapy kitchen. Pt. educated on walker basket and walker tray. Completed kitchen task of getting item in and out of oven. Completed with SBA. Pt. educated on safety and need to have items within reach of kitchen. Pt. continually states that he is not concerned about this. Ambulated back to room with all needs met. Education OT Patient Education: Correct positioning, Modified ADL techniques, Progress toward Goal/Update tx plan, Purpose of tx/functional activities, Reviewed precautions, Rehab process, Transfer techniques Teaching Recipient: Patient Teaching Methods: Demonstration, Discussion Response to Teaching: Verbalize Understanding, Return Demonstration OT Short Term Goals Short Term Goals Time Frame: Mar 03, 2018 Bathing(FIM): 4 Lower Body Dressing(FIM): 4 Toileting(FIM): 4 Toilet/Commode Transfer(FIM): 4 Additional Short Term Goals: 2-Verbalize Understanding, 3-ImproveStrength/[place] 1=Demonstrate adherence to instructed precautions during ADL tasks. 2=Patient will verbalize/demonstrate understanding of assistive devices/ modifications for ADL. 3=Patient will improve strength/tolerance for activity to enable patient to perform ADL's. OT Chcf Goals Chcf Goals Time Frame: Mar 17, 2018 Eating (FIM): 7 Eating (QC): 6 Groomin Oral Hygiene (QC): 6 Bathing(FIM): 5 Shower/Bathe Self (QC): 5 Upper Body Dressing(FIM): 6 Upper Body Dressing (QC): 6 Lower Body Dressing(FIM): 5 Lower Body Dressing (QC): 5 On/Off Footwear (QC): 5 Toileting(FIM): 5 Toileting Hygiene (QC): 5 Toilet/Commode Transfer(FIM): 5 Toilet/Commode Transfer (QC): 5 Shower Transfer(FIM): 5 Additional Goals: 1-Demonstrate ADL Tasks, 2-Verbalize Understanding, 3- ImproveStrength/[place] 1=Demonstrate adherence to instructed precautions during ADL tasks. 2=Patient will verbalize/demonstrate understanding of assistive devices/ modifications for ADL. 3=Patient will improve strength/tolerance for activity to enable patient to perform ADL's. OT Education/Plan Problem List/Assessment Assessment: Decreased Activ Tolerance, Decreased Safety Aware, Decreased UE Strength, Dependent Transfers, Impaired Bed Mobility, Impaired Funct Balance, Impaired I ADL's, Impaired Self-Care Skills Discharge Recommendations Plan/Recommendations: Continue POC Therapy D/C Recommendations: Home w/ Family Support, Occupational Therapy Home Care, Scheduled Assistance Equpiment Recommendations-D/C: Hip Kit Treatment Plan/Plan of Care Treatment,Training & Education: Yes Patient would benefit from OT for education, treatment and training to promote independence in ADL's, mobility, safety and/or upper extremity function for ADL' s. Plan of Care: ADL Retraining, Functional Mobility, Group Exercise/Act as Ind, UE Funct Exercise/Act Treatment Duration: Mar 17, 2018 Frequency: At least 5 of 7 days/Wk (IRF) Estimated Hrs Per Day: 1.5 hours per day Agreement: Yes Rehab Potential: Good Time/GCodes Start Time: 10:10 Stop Time: 11:10 Total Time Billed (hr/min): 60 Billed Treatment Time 1, ADL x 4 RICHARD LING OT Mar 10, 2018 14:16
--- NOTE | 2018-03-10 14:20 | Occupational Ther Daily Note ---
OT Current Status-Daily Note Subjective No pain reported. Appearance Pt. agrees to work with OT. Mental Status/Objective Patient Orientation: Person, Place Functional [place] Measure 0=Not Assessed/NA 4=Minimal Assistance 1=Total Assistance 5=Supervision or Setup 2=Maximal Assistance 6=Modified [place] 3=Moderate Assistance 7=Complete [place] ADL-Treatment Functional [place] Measure 0=Not Assessed/NA 4=Minimal Assistance 1=Total Assistance 5=Supervision or Setup 2=Maximal Assistance 6=Modified [place] 3=Moderate Assistance 7=Complete IndependenceIRFPAI Quality Coding Scale 6 Independent with activity with or without an assistive device 5 Patient requires set up or clean up by helper. Patient completes activity by themselves 4 Supervision or touching assist (CGA). [place] provide cues , steadying assist 3 The helper provides less than half the effort to complete the activity 2 The helper provides more than half the effort to complete the activity 1 Dependent. The helper does all the effort to complete an activity 7 Patient refused to complete or attempt activity 9 The patient did not perform the activity before the current illness or injury 88 Not attempted due to Medical conditions or safety concerns Toileting (FIM): 5 Toileting Hygiene (QC): 4 Transfers (B, C, W/C) (FIM): 5 Toilet/Commode Transfer (FIM): 5 Toilet Transfer (QC): 4 Other Treatment Pt. requests to use bathroom. Pt. able to complete all toileting tasks with SBA. Stood at sink to wash hands. Ambulated to wheelchair, 10 feet, and OT took pt. outside, as pt. has been asking to do this. Once outside, worked on series of UE AROM exercises in all planes. Completed 4 bilateral UE exercises x 10 reps each. PT came to work with pt. after this. Education OT Patient Education: Correct positioning, Exercise program, Modified ADL techniques, Progress toward Goal/Update tx plan, Purpose of tx/functional activities, Reviewed precautions, Rehab process, Transfer techniques Teaching Recipient: Patient Teaching Methods: Demonstration, Discussion Response to Teaching: Verbalize Understanding, Return Demonstration OT Short Term Goals Short Term Goals Time Frame: Mar 03, 2018 Bathing(FIM): 4 Lower Body Dressing(FIM): 4 Toileting(FIM): 4 Toilet/Commode Transfer(FIM): 4 Additional Short Term Goals: 2-Verbalize Understanding, 3-ImproveStrength/[place] 1=Demonstrate adherence to instructed precautions during ADL tasks. 2=Patient will verbalize/demonstrate understanding of assistive devices/ modifications for ADL. 3=Patient will improve strength/tolerance for activity to enable patient to perform ADL's. OT Group Home Goals Mine Motor Operator Goals Time Frame: Mar 17, 2018 Eating (FIM): 7 Eating (QC): 6 Groomin Oral Hygiene (QC): 6 Bathing(FIM): 5 Shower/Bathe Self (QC): 5 Upper Body Dressing(FIM): 6 Upper Body Dressing (QC): 6 Lower Body Dressing(FIM): 5 Lower Body Dressing (QC): 5 On/Off Footwear (QC): 5 Toileting(FIM): 5 Toileting Hygiene (QC): 5 Toilet/Commode Transfer(FIM): 5 Toilet/Commode Transfer (QC): 5 Shower Transfer(FIM): 5 Additional Goals: 1-Demonstrate ADL Tasks, 2-Verbalize Understanding, 3- ImproveStrength/[place] 1=Demonstrate adherence to instructed precautions during ADL tasks. 2=Patient will verbalize/demonstrate understanding of assistive devices/ modifications for ADL. 3=Patient will improve strength/tolerance for activity to enable patient to perform ADL's. OT Education/Plan Problem List/Assessment Assessment: Decreased Activ Tolerance, Decreased UE Strength, Impaired I ADL's , Impaired Self-Care Skills, Restricted Funct UE ROM Discharge Recommendations Plan/Recommendations: Continue POC Therapy D/C Recommendations: Home w/ Family Support, Occupational Therapy Home Care, Scheduled Assistance Equpiment Recommendations-D/C: Hip Kit Treatment Plan/Plan of Care Treatment,Training & Education: Yes Patient would benefit from OT for education, treatment and training to promote independence in ADL's, mobility, safety and/or upper extremity function for ADL' s. Plan of Care: ADL Retraining, Functional Mobility, Group Exercise/Act as Ind, UE Funct Exercise/Act Treatment Duration: Mar 17, 2018 Frequency: At least 5 of 7 days/Wk (IRF) Estimated Hrs Per Day: 1.5 hours per day Agreement: Yes Rehab Potential: Good Time/GCodes Start Time: 13:00 Stop Time: 13:30 Total Time Billed (hr/min): 30 Billed Treatment Time 1, ADL x 15minutes, Ex x 15minutes RICHARD LING OT Mar 10, 2018 14:20
[2018-03-10 17:55] VITALS: BP 131/71
[2018-03-10] MEDS: ROSUVASTATIN 5 MG (CRESTOR) TABLET PO SCH (20:24)
[2018-03-11] MEDS: MELATONIN 3 MG TABLET PO PRN (01:37)
[2018-03-11] MEDS: inSUlin ASPART (NovoLOG) 1 UNIT/0.01 ML (CHARGE PER UNIT) SC SCH ×4 (04:50→22:21)
[2018-03-11 05:24] VITALS: BP 128/73
[2018-03-11] MEDS: GLIMEPIRIDE 4 MG (AMARYL) TAB PO SCH (06:00)
[2018-03-11] MEDS: FERROUS SULF 325 MG (IRON) TAB PO SCH ×2 (06:01→16:47)
[2018-03-11] MEDS: PANTOPRAZOLE 40 MG (PROTONIX) TAB PO SCH (06:01)
--- NOTE | 2018-03-11 08:12 | PM & R (SOAP) Progress Note ---
Subjective This was a face to face visit with the patient. Date Seen by Provider: Mar 11, 2018 Time Seen by Provider: 08:00 Subjective/Events-last exam Patient was seen in his room this AM HGB stable Chem noted Patient Min assist for Upper body dressing and mod assist for lower body dressing Objective Physician Exam Last Set of Vital Signs Vital Signs Date Time Temp Pulse Resp B/P (MAP) Pulse Ox O2 Delivery O2 Flow Rate FiO2 03/11/18 05:24 97.8 76 18 128/73 (91) 92 NIV CPAP 03/09/18 20:45 93 Capillary Refill : I&O Intake and Output 03/11/18 00:00 Intake Total 3050 ml Output Total 3300 ml Balance -250 ml Intake Oral 3050 ml Output Urine Total 3300 ml # Bowel Movements 1 General: Alert, Oriented X3, Cooperative, No Acute Distress HEENT: Atraumatic, PERRLA, EOMI, Mucous Memb Moist/[place] Neck: Other (Neck brace) Lungs: Clear to Auscultation Heart: Regular Rate, Normal S1, Normal S2 Abdomen: Normal Bowel Sounds, Soft, No Tenderness Extremities: No Clubbing, Normal Pulses, Other (+ 2-3 edema BLE) Skin: No Rashes Neuro: Normal Speech, Strength at 5/5 X4 Ext, Other (generalized weakness) Psych/Mental Status: Mental Status NL Results Lab Data Laboratory Tests 03/08/18 11:23: Glucometer 165H 03/08/18 16:33: Glucometer 203H 03/08/18 20:36: Glucometer 184H 03/09/18 05:30: White Blood Count 5.6, Red Blood Count 2.60L, Hemoglobin 7.5L, Hematocrit 24L, Mean Corpuscular Volume 91, Mean Corpuscular Hemoglobin 29, Mean Corpuscular Hemoglobin Concent 32, Red Cell Distribution Width 14.9H, Platelet Count 164, Mean Platelet Volume 10.6H, Sodium Level 142, Potassium Level 5.0, Chloride Level 109H, Carbon Dioxide Level 23, Anion Gap 10, Blood Urea Nitrogen 59H, Creatinine 1.93H, Estimat Glomerular Filtration Rate 37, BUN/Creatinine Ratio 31 , Glucose Level 164H, Calcium Level 8.9, Vitamin B12 Level 355, Red Blood Cell Folate Hematocrit 23.9L 03/09/18 11:30: Glucometer 149H 03/09/18 15:34: Glucometer 190H 03/09/18 20:08: Glucometer 216H 03/10/18 04:47: White Blood Count 5.6, Red Blood Count 2.55L, Hemoglobin 7.5L, Hematocrit 23L, Mean Corpuscular Volume 91, Mean Corpuscular Hemoglobin 29, Mean Corpuscular Hemoglobin Concent 32, Red Cell Distribution Width 14.5, Platelet Count 163, Mean Platelet Volume 10.5H, Sodium Level 141, Potassium Level 4.7, Chloride Level 109H, Carbon Dioxide Level 24, Anion Gap 8, Blood Urea Nitrogen 57H, Creatinine 1.88H, Estimat Glomerular Filtration Rate 38, BUN/Creatinine Ratio 30 , Glucose Level 142H, Calcium Level 8.7, Magnesium Level 2.2 03/10/18 10:51: Glucometer 175H 03/10/18 15:38: Glucometer 220H 03/10/18 22:37: Glucometer 193H 03/11/18 04:49: Glucometer 151H Assessment/Plan Assessment and Plan Spinal stenosis s/p C3 to 7 ACDF with c5 [address] Hardwick [facility]ospine Postop anemia stable DR Bain to f/u re labs Hyperkalemia improved Peripheral edema meds adjusted General debil secondary to postop anemia associated with Coag negative staph bacteremia improved s/p course of antibiotics Pyelonephritis by CT treated HCAP treated DM2 controlled HTN controlled CHF treated Hypoalbuminemia HLP Plan Continue PT/OT F/U with Cardiology and PCP Team Conference next week 03-15-18 if not discharged sooner F/u with re discharge date and plans Patient needs motivation Co-Morbidities that are continuing to impact the rehab process: (include details ) SALEEM AMATO MD Mar 11, 2018 08:12
[2018-03-11] MEDS: amLODIPine 10 MG (NORVASC) TAB PO SCH (09:03)
[2018-03-11] MEDS: meTOprolol TARTRATE 50 MG (LOPRESSOR) TAB PO SCH ×2 (09:03→20:15)
[2018-03-11] MEDS: ASPIRIN E.C. 81 MG (ECOTRIN) TAB PO SCH (09:03)
[2018-03-11] MEDS: FUROSEMIDE 40 MG (LASIX) TAB PO SCH (09:03)
[2018-03-11] MEDS: hydrALAZINE (APRESOLINE) 25 MG TAB PO SCH ×3 (09:03→20:15)
[2018-03-11] MEDS: LORATADINE (CLARITIN) 10 MG TAB PO SCH (09:03)
[2018-03-11] MEDS: GABAPENTIN 600 MG (NEURONTIN) TAB PO SCH ×3 (09:03→20:15)
[2018-03-11] MEDS: MICONAZOLE 2% POWDER (DESENEX AF) 90 GM TOP SCH ×2 (10:14→20:16)
[2018-03-11] MEDS: MENTHOL/ZINC OXIDE (CALMOSEPTINE) 113 GM TUBE TOP SCH ×2 (10:14→20:16)
[2018-03-11] MEDS: ACETAMINOPHEN 325 MG TABLET PO PRN (10:20)
--- NOTE | 2018-03-11 11:13 | Cardiology Progress Note ---
Subjective Date Seen by Provider: Mar 11, 2018 Time Seen by Provider: 11:11 Subjective/Events-last exam Patient is in bed, feeling better, still having fatigue and edema Review of Systems General: No Chills, No Night Sweats; Fatigue; No Malaise, No Appetite, No Other HEENT: No Head Aches, No Visual Changes, No Eye Pain, No Ear Pain, No Dysphasia , No Sinus Congestion, No Post Nasal Drip, No Sore Throat, No Other Pulmonary: No Dyspnea, No Cough, No Pleuritic Chest Pain, No Other Cardiovascular: Edema; No: Chest Pain, Palpitations, Orthopnea, Paroxysmal Noc. Dyspnea, Lt Headedness, Other Objective-Cardiology Exam Last Set of Vital Signs Vital Signs 03/09/18 03/11/18 20:45 05:24 Temp 97.8 Pulse 76 Resp 18 B/P (MAP) 128/73 (91) Pulse Ox 92 O2 Delivery NIV CPAP FiO2 93 Capillary Refill : I&O Intake and Output 03/11/18 00:00 Intake Total 3050 ml Output Total 3300 ml Balance -250 ml Intake Oral 3050 ml Output Urine Total 3300 ml # Bowel Movements 1 General: Alert, Oriented X3, Cooperative, No Acute Distress HEENT: Atraumatic, PERRLA, EOMI, Mucous Memb Moist/[place] Neck: Other (Neck brace) Lungs: Clear to Auscultation Heart: Regular Rate, Normal S1, Normal S2 Abdomen: Normal Bowel Sounds, Soft, No Tenderness Extremities: No Clubbing, Normal Pulses, Other (+ 2-3 edema BLE) Skin: No Rashes Neuro: Normal Speech, Strength at 5/5 X4 Ext, Other (generalized weakness) Psych/Mental Status: Mental Status NL A/P-Cardiology Admission Diagnosis Acute renal failure Peripheral edema Coronary artery disease Hypertension Assessment/Plan Generalized weakness and loss of energy secondary to complicated hospital stay after neck surgery, had pneumonia, bacteremia, received antibiotic and reporting improvement. Peripheral edema, +2-3. Acute on chronic renal failure, I will give additional dose of zaroxolyn and monitor Anemia, s/p transfusion. Dr. Kumar managing. Continue to monitor Hyperkalemia,improved. Discontinued losartan, continue to monitor electrolytes and renal function while receiving Lasix Echocardiogram was done at [facility] on February 14, 2018 showing moderate LVH, moderately dilated left atrium, diastolic dysfunction, estimated PA pressure 40 mmHg, ejection fraction 50-55 percent. Patient has refused to take Lovenox due to bleeding, using SCD. Acute on chronic renal insufficiency. Continue to monitor. History of coronary artery disease, history of mid LAD stenting using Alpine 3.0 18 mm done in June 2017, mild to moderate disease in the proximal portion of the LAD, moderate disease at the distal circumflex artery. Continue to monitor History of diabetes mellitus, diabetic neuropathy, followed and managed by primary care physician History of hyperlipidemia with intolerance to statin. Spinal stenosis, status post C3-7 ACDF with C5 corpectomy done by Dr. Hardwick History of carotid stenosis, last ultrasound was done in July 2017. Continue to monitor History of respiratory failure secondary to pneumonia. Improved. Continue to monitor Clinical Quality Measures DVT/VTE Risk/Contraindication: Risk Factor Score Per Nursin RFS Level Per Nursing on Admit: 4+=Very High KAREN YANG MD Mar 11, 2018 11:12
[2018-03-11] MEDS ORDERED: METOLAZONE 5 MG (ZAROXOLYN) TAB PO NR (11:15)
--- NOTE | 2018-03-11 12:21 | Physical Therapy Daily Note ---
PT Daily Note-Current Subjective Pt. in bed, states his breakfast should be here soon, agrees to ambulate until breakfast arrives. Mental Status Patient Orientation: Person, Place, Time, Situation Transfers Functional [place] Measure 0=Not Assessed/NA 4=Minimal Assistance 1=Total Assistance 5=Supervision or Setup 2=Maximal Assistance 6=Modified [place] 3=Moderate Assistance 7=Complete IndependenceIRFPAI Quality Coding Scale 6 Independent with activity with or without an assistive device 5 Patient requires set up or clean up by helper. Patient completes activity by themselves 4 Supervision or touching assist (CGA). [place] provide cues , steadying assist 3 The helper provides less than half the effort to complete the activity 2 The helper provides more than half the effort to complete the activity 1 Dependent. The helper does all the effort to complete an activity 7 Patient refused to complete or attempt activity 9 The patient did not perform the activity before the current illness or injury 88 Not attempted due to Medical conditions or safety concerns Transfers (B, C, W/C) (FIM): 5 Roll Left to Right (QC): 5 Sit to/from Stand: 5 Sit to Stand (QC): 5 assist to don cervical collar while seated at EOB Weight Bearing Right Lower Extremity: Right Full Weight Bearing Left Lower Extremity: Left Full Weight Bearing Gait Training Does the Patient Walk?: Yes Gait (FIM): 5 Distance (FIM): 3=150 ft Distance: x200 ft, x 100 ft Walk 150 ft (QC): 5 Gait Level of Assist: 5 Gait Persons Needed: 1 Gait Assistive Device: FWW pt. fatigues with ambulation and c/o LBP while ambulating, requires 1 seated rest period. No objective pain rating given when asked. Treatments gait training Assessment Current Status: Good Progress Pt. did well with ambulation, however c/o LBP during session. He had no LOB but fatigued with gait. Pt. up in chair post session with call light, breakfast , and all needs met. PT Short Term Goals Short Term Goals Time Frame: Mar 03, 2018 Gait (FIM): 2 (met) Gait Distance Comment: 100' Gait Level of Assist: 4 Gait Assistive Device: FWW Wheelchair Distance: 150'x3 PT Group Home Goals Adding Machine Operator Goals PT Group Home Goals Time Frame: Mar 17, 2018 Transfers (B,C,W/C) (FIM): 5 (met) Sit to Lying (QC): 4 Lying-Sitting on Side/Bed(QC): 4 Sit to Stand (QC): 4 Rollin Roll Left to Right (QC): 4 Chair/[id number] Xfer(QC): 4 Car Transfer (QC): 4 Gait (FIM): 5 (met) Distance: 150' Walk 10 feet (QC): 4 Walk 10ft-Uneven Surface(QC): 4 Walk 50ft with 2 Turns (QC): 4 Walk 150 ft (QC): 4 Gait Level of Assist: 5 Gait Assistive Device: FWW Stairs (FIM): 2 # of Steps: 4 1 Step (curb) (QC): 4 4 Steps (QC): 4 Stairs Level Of Assist: 4 PT Plan Treatment/Plan Treatment Plan: Continue Plan of Care Treatment Plan: Bed Mobility, Education, Functional Activity [place], Functional Strength, Group Therapy, Gait, Safety, Therapeutic Exercise, Transfers Treatment Duration: Mar 17, 2018 Frequency: At least 5 of 7 days/Wk (IRF) Estimated Hrs Per Day: 1.5 hours per day Patient and/or Family Agrees t: Yes Time/GCodes Time In: 920 Time Out: 935 Total Billed Treatment Time: 15 Total Billed Treatment 1, GT 15' MARIANELA ARENAS PT Mar 11, 2018 12:20
[2018-03-11 16:05] VITALS: BP 133/81
[2018-03-11] MEDS: ROSUVASTATIN 5 MG (CRESTOR) TABLET PO SCH (20:15)
[2018-03-12] MEDS: MELATONIN 3 MG TABLET PO PRN ×2 (01:05→23:08)
[2018-03-12] MEDS: inSUlin ASPART (NovoLOG) 1 UNIT/0.01 ML (CHARGE PER UNIT) SC SCH ×4 (05:09→22:10)
[2018-03-12 05:50] VITALS: BP 123/71
[2018-03-12] MEDS: GLIMEPIRIDE 4 MG (AMARYL) TAB PO SCH (06:01)
[2018-03-12] MEDS: PANTOPRAZOLE 40 MG (PROTONIX) TAB PO SCH (06:01)
[2018-03-12] MEDS: FERROUS SULF 325 MG (IRON) TAB PO SCH ×2 (06:01→16:46)
--- NOTE | 2018-03-12 08:26 | Cardiology Progress Note ---
Subjective Date Seen by Provider: Mar 12, 2018 Time Seen by Provider: 08:25 Subjective/Events-last exam Patient is in bed, feeling better, no new complaint Review of Systems General: No Chills, No Night Sweats, No Fatigue, No Malaise, No Appetite, No Other HEENT: No Head Aches, No Visual Changes, No Eye Pain, No Ear Pain, No Dysphasia , No Sinus Congestion, No Post Nasal Drip, No Sore Throat, No Other Pulmonary: No Dyspnea, No Cough, No Pleuritic Chest Pain, No Other Cardiovascular: No: Chest Pain, Palpitations, Orthopnea, Paroxysmal Noc. Dyspnea, Edema, Lt Headedness, Other Objective-Cardiology Exam Last Set of Vital Signs Vital Signs 03/09/18 03/12/18 20:45 05:50 Temp 98.2 Pulse 75 Resp 18 B/P (MAP) 123/71 (88) Pulse Ox 91 O2 Delivery NIV CPAP FiO2 93 Capillary Refill : I&O Intake and Output 03/12/18 00:00 Intake Total 2100 ml Output Total 3975 ml Balance -1875 ml Intake Oral 2100 ml Output Urine Total 3975 ml # Bowel Movements 1 General: Alert, Oriented X3, Cooperative, No Acute Distress HEENT: Atraumatic, PERRLA, EOMI, Mucous Memb Moist/[place] Neck: Supple, No JVD, Other (Neck brace) Lungs: Clear to Auscultation Heart: Regular Rate, Normal S1, Normal S2 Abdomen: Normal Bowel Sounds, Soft, No Tenderness Extremities: No Clubbing, Normal Pulses, Other (+ 2-3 edema BLE) Skin: No Rashes Neuro: Normal Speech, Strength at 5/5 X4 Ext, Other (generalized weakness) Psych/Mental Status: Mental Status NL Results Lab Laboratory Tests Test 03/11/18 11:23 03/11/18 15:59 03/11/18 22:20 03/12/18 05:04 Range/Units Glucometer 149 H 227 H 177 H 193 H 70-110 MG/DL A/P-Cardiology Admission Diagnosis Acute renal failure Peripheral edema Coronary artery disease Hypertension Assessment/Plan Generalized weakness and loss of energy secondary to complicated hospital stay after neck surgery, had pneumonia, bacteremia, received antibiotic and reporting improvement. Peripheral edema, +2-3. Acute on chronic renal failure, some improvement, continue to monitor Anemia, s/p transfusion. Dr. Kumar managing. Continue to monitor Hyperkalemia, improved. Discontinued losartan, continue to monitor electrolytes and renal function while receiving Lasix Echocardiogram was done at [facility] on February 14, 2018 showing moderate LVH, moderately dilated left atrium, diastolic dysfunction, estimated PA pressure 40 mmHg, ejection fraction 50-55 percent. Patient has refused to take Lovenox due to bleeding, using SCD. Acute on chronic renal insufficiency. Continue to monitor. History of coronary artery disease, history of mid LAD stenting using Alpine 3.0 18 mm done in June 2017, mild to moderate disease in the proximal portion of the LAD, moderate disease at the distal circumflex artery. Continue to monitor History of diabetes mellitus, diabetic neuropathy, followed and managed by primary care physician History of hyperlipidemia with intolerance to statin. Spinal stenosis, status post C3-7 ACDF with C5 corpectomy done by Dr. Hardwick History of carotid stenosis, last ultrasound was done in July 2017. Continue to monitor History of respiratory failure secondary to pneumonia. Improved. Continue to monitor Clinical Quality Measures DVT/VTE Risk/Contraindication: Risk Factor Score Per Nursin RFS Level Per Nursing on Admit: 4+=Very High KAREN YANG MD Mar 12, 2018 08:26
[2018-03-12] MEDS: GABAPENTIN 600 MG (NEURONTIN) TAB PO SCH ×3 (08:59→20:08)
[2018-03-12] MEDS: hydrALAZINE (APRESOLINE) 25 MG TAB PO SCH ×3 (08:59→20:08)
[2018-03-12] MEDS: amLODIPine 10 MG (NORVASC) TAB PO SCH (08:59)
[2018-03-12] MEDS: meTOprolol TARTRATE 50 MG (LOPRESSOR) TAB PO SCH ×2 (08:59→20:08)
[2018-03-12] MEDS: LORATADINE (CLARITIN) 10 MG TAB PO SCH (09:00)
[2018-03-12] MEDS: FUROSEMIDE 40 MG (LASIX) TAB PO SCH (09:00)
[2018-03-12] MEDS: ASPIRIN E.C. 81 MG (ECOTRIN) TAB PO SCH (09:00)
[2018-03-12] MEDS: MENTHOL/ZINC OXIDE (CALMOSEPTINE) 113 GM TUBE TOP SCH ×2 (11:07→20:12)
[2018-03-12] MEDS: MICONAZOLE 2% POWDER (DESENEX AF) 90 GM TOP SCH ×2 (11:07→20:12)
[2018-03-12 15:54] VITALS: BP 143/78
[2018-03-12] MEDS: ROSUVASTATIN 5 MG (CRESTOR) TABLET PO SCH (20:08)
[2018-03-13] MEDS: inSUlin ASPART (NovoLOG) 1 UNIT/0.01 ML (CHARGE PER UNIT) SC SCH ×4 (05:24→22:30)
[2018-03-13 05:47] VITALS: BP 143/78
[2018-03-13] MEDS: PANTOPRAZOLE 40 MG (PROTONIX) TAB PO SCH (06:03)
[2018-03-13] MEDS: GLIMEPIRIDE 4 MG (AMARYL) TAB PO SCH (06:03)
[2018-03-13] MEDS: FERROUS SULF 325 MG (IRON) TAB PO SCH ×2 (06:03→16:35)
--- NOTE | 2018-03-13 08:22 | Cardiology Progress Note ---
Subjective Date Seen by Provider: Mar 13, 2018 Time Seen by Provider: 08:20 Subjective/Events-last exam Patient is sitting up in bed, eating breakfast. No new complaints. Continues to c/o peripheral edema. Review of Systems General: No Night Sweats, No Fatigue, No Malaise HEENT: No Visual Changes, No Dysphasia, No Sore Throat Pulmonary: No Dyspnea, No Cough Cardiovascular: Edema; No: Chest Pain, Palpitations, Paroxysmal Noc. Dyspnea Gastrointestinal: No: Nausea, Vomiting, Abdominal Pain Genitourinary: No Dysuria, No Frequency Musculoskeletal: neck pain; No: back pain, leg pain, foot pain Neurological: No: Weakness, Numbness, Change in speech, Confusion Objective-Cardiology Exam Last Set of Vital Signs Vital Signs 03/09/18 03/13/18 20:45 05:47 Temp 98.3 Pulse 77 Resp 18 B/P (MAP) 143/78 (99) Pulse Ox 95 O2 Delivery NIV CPAP FiO2 93 Capillary Refill : I&O Intake and Output 03/13/18 00:00 Intake Total 2620 ml Output Total 3650 ml Balance -1030 ml Intake Oral 2620 ml Output Urine Total 3650 ml # Bowel Movements 2 General: Alert, Oriented X3, Cooperative, No Acute Distress HEENT: Atraumatic, PERRLA, EOMI, Mucous Memb Moist/[place] Neck: Supple, No JVD Lungs: Clear to Auscultation Heart: Regular Rate, Normal S1, Normal S2 Abdomen: Normal Bowel Sounds, Soft, No Tenderness Extremities: No Clubbing, Normal Pulses, Other (+ 2-3 edema BLE) Skin: No Rashes Neuro: Normal Speech, Strength at 5/5 X4 Ext, Other (generalized weakness) Psych/Mental Status: Mental Status NL A/P-Cardiology Admission Diagnosis Acute renal failure Peripheral edema Coronary artery disease Hypertension Assessment/Plan Generalized weakness and loss of energy secondary to complicated hospital stay after neck surgery, had pneumonia, bacteremia, received antibiotic and reporting improvement. Peripheral edema, +2-3. Acute on chronic renal failure, some improvement, continue to monitor Anemia, s/p transfusion. Dr. Kumar managing. Continue to monitor Hyperkalemia, improved. Discontinued losartan, continue to monitor electrolytes and renal function while receiving Lasix Echocardiogram was done at [facility] on February 14, 2018 showing moderate LVH, moderately dilated left atrium, diastolic dysfunction, estimated PA pressure 40 mmHg, ejection fraction 50-55 percent. Patient has refused to take Lovenox due to bleeding, using SCD. Acute on chronic renal insufficiency. Continue to monitor. History of coronary artery disease, history of mid LAD stenting using Alpine 3.0 18 mm done in June 2017, mild to moderate disease in the proximal portion of the LAD, moderate disease at the distal circumflex artery. Continue to monitor History of diabetes mellitus, diabetic neuropathy, followed and managed by primary care physician History of hyperlipidemia with intolerance to statin. Spinal stenosis, status post C3-7 ACDF with C5 corpectomy done by Dr. Hardwick History of carotid stenosis, last ultrasound was done in July 2017. Continue to monitor History of respiratory failure secondary to pneumonia. Improved. Continue to monitor Clinical Quality Measures DVT/VTE Risk/Contraindication: Risk Factor Score Per Nursin RFS Level Per Nursing on Admit: 4+=Very High CLAY SOMERS Mar 13, 2018 08:22
--- NOTE | 2018-03-13 08:42 | Progress Note (SOAP) ---
Subjective Time Seen by a Provider: 08:40 Subjective/Events-last exam Patient feeling better and doing better. Voices no complaints today Objective Exam Vital Signs Date Time Temp Pulse Resp B/P (MAP) Pulse Ox O2 Delivery O2 Flow Rate FiO2 03/13/18 05:47 98.3 77 18 143/78 (99) 95 NIV CPAP 03/12/18 15:54 97.0 79 16 143/78 (99) 93 Room Air 03/12/18 08:51 Room Air I & O 03/13/18 07:00 Intake Total 2250 ml Output Total 3000 ml Balance -750 ml Capillary Refill : General Appearance: No Apparent Distress, WD/WN Respiratory: No Accessory Muscle Use, No Respiratory Distress Results Lab Laboratory Tests 03/12/18 15:53: Glucometer 230H 03/12/18 21:59: Glucometer 182H 03/13/18 05:22: Glucometer 174H Assessment/Plan Assessment/Plan Assess & Plan/Chief Complaint Diabetes. Coagulase negative bacteremia. Recent cervical surgery. Myopathy. Weakness. Renal insufficiency. . 03/01/18. Diabetes doing better. Coagulase negative bacteremia. Recent cervical surgery. Myopathy. Weakness. Renal insufficiency.. . To 03/02/18. Weakness. Renal insufficiency. Coagulase negative bacteremia. Hemoglobin 6.7. Patient to get 1 unit of packed red blood cells today 03/03/18: Weakness. Renal insufficiency. Anemia, Hemoglobin 7.7 DM. GABRIELLA.. . 03/06/18. Weakness. Renal insufficiency. Anemia. Diabetes. GABRIELLA. Patient gained 8 pounds.. . 03/07/18. Weakness. Renal insufficiency. Anemia. Diabetes. Patient weight stabilized today. Patient more anemic. GFR decreasing. . 03/08/18. Weakness. Anemia. Renal insufficiency. Recent cervical surgery.. . 03/09/18. Weakness. Anemia. Renal insufficiency. Recent cervical surgery. Diabetes. . . Weakness. Anemia. Renal insufficiency. Recent cervical surgery. Diabetes. . 03/13/18. Recent cervical surgery. Weakness. Anemia. Renal insufficiency. Diabetes. Patient feeling better Clinical Quality Measures DVT/VTE Risk/Contraindication: Risk Factor Score Per Nursin RFS Level Per Nursing on Admit: 4+=Very High MARIIA SIM DO Mar 13, 2018 08:42
[2018-03-13] MEDS ORDERED: METOLAZONE 5 MG (ZAROXOLYN) TAB PO NR (09:00)
--- NOTE | 2018-03-13 09:16 | Cardiology Progress Note ---
Subjective Date Seen by Provider: Mar 13, 2018 Time Seen by Provider: 09:15 Subjective/Events-last exam Patient is laying down in bed, complaining of increasing edema. No chest pain. Review of Systems General: No Chills, No Night Sweats, No Fatigue, No Malaise, No Appetite, No Other HEENT: No Head Aches, No Visual Changes, No Eye Pain, No Ear Pain, No Dysphasia , No Sinus Congestion, No Post Nasal Drip, No Sore Throat, No Other Pulmonary: Dyspnea; No Cough, No Pleuritic Chest Pain, No Other Cardiovascular: Edema; No: Chest Pain, Palpitations, Orthopnea, Paroxysmal Noc. Dyspnea, Lt Headedness, Other Objective-Cardiology Exam Last Set of Vital Signs Vital Signs 03/09/18 03/13/18 20:45 05:47 Temp 98.3 Pulse 77 Resp 18 B/P (MAP) 143/78 (99) Pulse Ox 95 O2 Delivery NIV CPAP FiO2 93 Capillary Refill : I&O Intake and Output 03/13/18 00:00 Intake Total 2620 ml Output Total 3650 ml Balance -1030 ml Intake Oral 2620 ml Output Urine Total 3650 ml # Bowel Movements 2 General: Alert, Oriented X3, Cooperative, No Acute Distress HEENT: Atraumatic, PERRLA, EOMI, Mucous Memb Moist/Reid Neck: Supple, No JVD Lungs: Clear to Auscultation Heart: Regular Rate, Normal S1, Normal S2 Abdomen: Normal Bowel Sounds, Soft, No Tenderness Extremities: No Clubbing, Normal Pulses, Other (+ 2-3 edema BLE) Skin: No Rashes Neuro: Normal Speech, Strength at 5/5 X4 Ext, Other (generalized weakness) Psych/Mental Status: Mental Status NL Results Lab Laboratory Tests Test 03/12/18 15:53 03/12/18 21:59 03/13/18 05:22 Range/Units Glucometer 230 H 182 H 174 H 70-110 MG/DL A/P-Cardiology Admission Diagnosis Acute renal failure Peripheral edema Coronary artery disease Hypertension Assessment/Plan Generalized weakness and loss of energy secondary to complicated hospital stay after neck surgery, had pneumonia, bacteremia, received antibiotic and reporting improvement. Peripheral edema, +2-3. Acute on chronic renal failure, I will give additional dose of Zaroxolyn today and continue to monitor renal function closely, we will try TARA lugo Anemia, s/p transfusion. Dr. Kumar managing. Continue to monitor Hyperkalemia, improved. Discontinued losartan, continue to monitor electrolytes and renal function while receiving Lasix Echocardiogram was done at [facility] on February 14, 2018 showing moderate LVH, moderately dilated left atrium, diastolic dysfunction, estimated PA pressure 40 mmHg, ejection fraction 50-55 percent. Patient has refused to take Lovenox due to bleeding, using SCD. Acute on chronic renal insufficiency. Continue to monitor. History of coronary artery disease, history of mid LAD stenting using Alpine 3.0 18 mm done in June 2017, mild to moderate disease in the proximal portion of the LAD, moderate disease at the distal circumflex artery. Continue to monitor History of diabetes mellitus, diabetic neuropathy, followed and managed by primary care physician History of hyperlipidemia with intolerance to statin. Spinal stenosis, status post C3-7 ACDF with C5 corpectomy done by Dr. Hardwick History of carotid stenosis, last ultrasound was done in July 2017. Continue to monitor History of respiratory failure secondary to pneumonia. Improved. Continue to monitor Clinical Quality Measures DVT/VTE Risk/Contraindication: Risk Factor Score Per Nursin RFS Level Per Nursing on Admit: 4+=Very High KAREN YANG MD Mar 13, 2018 09:16
[2018-03-13 09:34] LABS: HEMOGLOBIN 8.5 G/DL (13.3-17.7); MEAN PLATELET VOLUME 10.9 FL (7.4-10.4); RED BLOOD COUNT 3.03 10^6/uL (4.35-5.85); RED CELL DISTRIBUTION WIDTH 14.6 % (10.0-14.5); WHITE BLOOD COUNT 7.8 10^3/uL (4.3-11.0)
[2018-03-13 09:47] LABS: CALCIUM 9.5 MG/DL (8.5-10.1); CREATININE SERUM 1.96 MG/DL (0.60-1.30); POTASSIUM 4.7 MMOL/L (3.6-5.0)
[2018-03-13] MEDS: ASPIRIN E.C. 81 MG (ECOTRIN) TAB PO SCH (09:56)
[2018-03-13] MEDS: LORATADINE (CLARITIN) 10 MG TAB PO SCH (09:56)
[2018-03-13] MEDS: GABAPENTIN 600 MG (NEURONTIN) TAB PO SCH ×3 (09:56→20:26)
[2018-03-13] MEDS: FUROSEMIDE 40 MG (LASIX) TAB PO SCH (09:56)
[2018-03-13] MEDS: MICONAZOLE 2% POWDER (DESENEX AF) 90 GM TOP SCH ×2 (09:58→21:10)
[2018-03-13] MEDS: meTOprolol TARTRATE 50 MG (LOPRESSOR) TAB PO SCH ×2 (09:59→20:26)
[2018-03-13] MEDS: amLODIPine 10 MG (NORVASC) TAB PO SCH (09:59)
[2018-03-13] MEDS: hydrALAZINE (APRESOLINE) 25 MG TAB PO SCH ×3 (09:59→20:26)
[2018-03-13] MEDS: MENTHOL/ZINC OXIDE (CALMOSEPTINE) 113 GM TUBE TOP SCH ×2 (10:00→20:26)
--- NOTE | 2018-03-13 10:03 | Physical Therapy Daily Note ---
PT Daily Note-Current Subjective pt in bed pre tx, agrees to PT, no pain to report Appearance pt in bed post tx w/ phone, call light, tray, all needs met Mental Status Patient Orientation: Normal For Age cervical collar Transfers Functional [place] Measure 0=Not Assessed/NA 4=Minimal Assistance 1=Total Assistance 5=Supervision or Setup 2=Maximal Assistance 6=Modified [place] 3=Moderate Assistance 7=Complete IndependenceIRFPAI Quality Coding Scale 6 Independent with activity with or without an assistive device 5 Patient requires set up or clean up by helper. Patient completes activity by themselves 4 Supervision or touching assist (CGA). [place] provide cues , steadying assist 3 The helper provides less than half the effort to complete the activity 2 The helper provides more than half the effort to complete the activity 1 Dependent. The helper does all the effort to complete an activity 7 Patient refused to complete or attempt activity 9 The patient did not perform the activity before the current illness or injury 88 Not attempted due to Medical conditions or safety concerns Transfers (B, C, W/C) (FIM): 6 Scootin Rollin Roll Left to Right (QC): 6 Supine to/from Sit: 6 Sit to/from Stand: 6 Sit to Lying (QC): 6 Sit to Stand (QC): 6 Chair/Odq-gc-Cnmjz Xfer(QC): 6 Bed to/from Chair: 6 Car Transfer (QC): 6 pt mod I w/ all transfers, pt needs Cristiane from lower surfaces, but shows awareness and attempts to avoid sitting where he may not be able to stand independently Weight Bearing Right Lower Extremity: Right Full Weight Bearing Left Lower Extremity: Left Full Weight Bearing Gait Training Does the Patient Walk?: Yes Gait (FIM): 6 Distance: 150',60'x2 Walk 10 feet (QC): 6 Walk 50 ft with 2 Turns(QC): 6 Walk 150 ft (QC): 6 Walking 10ft/uneven surface-QC: 6 Gait Level of Assist: 6 Gait Assistive Device: FWW pt ambulates to gym w/ FWW mod I, gait is steady w/ good speed, fewer rest breaks needed pt ambulates from gym using SPC w/ CGA, steady no LOB, reciprocal pattern Wheelchair Training Does the Pt Use a Wheelchair?: No Stair Training Stair Training: Handrails/: 2 handrails Stairs (FIM): 2 #of Steps: 4 1 Step (curb) (QC): 6 4 Steps (QC): 4 12 Steps (QC): 88 Stairs: Pattern: Step to Level of Assist: 4 pt ascends/descends 4 stairs using 2 handrails w/ step-to pattern w/ CGAx2 w/ cues needed for hand placement Balance Picking up an Object (QC): 88 Exercises NuStep Minutes: 17 NuStep Workload: 7 Treatments bed mobility and transfers, ambulation, stair training, gait training, functional strengthening Assessment Current Status: Fair Progress improving general mobility and strength PT Short Term Goals Short Term Goals Time Frame: Mar 03, 2018 Gait (FIM): 2 (met) Gait Distance Comment: 100' Gait Level of Assist: 4 Gait Assistive Device: FWW Wheelchair Distance: 150'x3 PT Mcc Goals Mcc Goals PT Mcc Goals Time Frame: Mar 17, 2018 Transfers (B,C,W/C) (FIM): 5 (met) Sit to Lying (QC): 4 (met) Lying-Sitting on Side/Bed(QC): 4 (met) Sit to Stand (QC): 4 (met) Rollin (met) Roll Left to Right (QC): 4 (met) Chair/Aut-nt-Mxkjj Xfer(QC): 4 (met) Car Transfer (QC): 4 (met) Gait (FIM): 5 (met) Distance: 150' Walk 10 feet (QC): 4 (mt) Walk 10ft-Uneven Surface(QC): 4 (met) Walk 50ft with 2 Turns (QC): 4 (met) Walk 150 ft (QC): 4 (met) Gait Level of Assist: 5 (met) Gait Assistive Device: FWW Stairs (FIM): 2 (met) # of Steps: 4 (met) 1 Step (curb) (QC): 4 (met) 4 Steps (QC): 4 (met) Stairs Level Of Assist: 4 (met) PT Plan Problem List Problem List: Activity Tolerance, Functional Strength, Safety, Balance, Gait, Transfer Treatment/Plan Treatment Plan: Continue Plan of Care Treatment Plan: Bed Mobility, Education, Functional Activity Cody, Functional Strength, Group Therapy, Gait, Safety, Therapeutic Exercise, Transfers Treatment Duration: Mar 17, 2018 Frequency: At least 5 of 7 days/Wk (IRF) Estimated Hrs Per Day: 1.5 hours per day Patient and/or Family Agrees t: Yes Safety Risks/Education Patient Education: Gait Training, Transfer Techniques, Steps, Reviewed Precautions, Correct Positioning, Reviewed Don/Doff Brace, Safety Issues Teaching Recipient: Patient Teaching Methods: Demonstration, Discussion Response to Teaching: Reinforcement Needed Time/GCodes Time In: 0900 Time Out: 1000 Total Billed Treatment Time: 60 Total Billed Treatment 1 visit EX 17' FA 10' GT 33' MARCELL BADILLO PT Mar 13, 2018 10:03
--- NOTE | 2018-03-13 14:27 | Occupational Ther Daily Note ---
OT Current Status-Daily Note Subjective "PT wore me out." No complaint of pain. Appearance Pt. in bed. Agrees to work with OT. Mental Status/Objective Patient Orientation: Person, Place Functional [place] Measure 0=Not Assessed/NA 4=Minimal Assistance 1=Total Assistance 5=Supervision or Setup 2=Maximal Assistance 6=Modified [place] 3=Moderate Assistance 7=Complete [place] ADL-Treatment Functional [place] Measure 0=Not Assessed/NA 4=Minimal Assistance 1=Total Assistance 5=Supervision or Setup 2=Maximal Assistance 6=Modified [place] 3=Moderate Assistance 7=Complete IndependenceIRFPAI Quality Coding Scale 6 Independent with activity with or without an assistive device 5 Patient requires set up or clean up by helper. Patient completes activity by themselves 4 Supervision or touching assist (CGA). [place] provide cues , steadying assist 3 The helper provides less than half the effort to complete the activity 2 The helper provides more than half the effort to complete the activity 1 Dependent. The helper does all the effort to complete an activity 7 Patient refused to complete or attempt activity 9 The patient did not perform the activity before the current illness or injury 88 Not attempted due to Medical conditions or safety concerns Grooming (FIM): 6 (Mod I with use of walker for balance to stand and brush teeth/comb hair.) Oral Hygiene (QC): 6 Bathing (FIM): 5 (SBA in shower.) Shower/Bathe Self (QC): 4 Upper Body (FIM): 5 (Set up) Upper Body Dressing (QC): 5 Lower Body Dressing (FIM): 4 (Min assist with use of AE.) Lower Body Dressing (QC): 4 On/Off Footwear (QC): 4 Toileting (FIM): 6 Toileting Hygiene (QC): 6 Transfers (B, C, W/C) (FIM): 6 Toilet/Commode Transfer (FIM): 6 Toilet Transfer (QC): 6 Shower Transfer(FIM): 5 Other Treatment Pt. requires increased encouragement this date to shower self. Requires encouragement to do for self but insists on standing in shower. OT educated him on energy conservation and safety. However, pt. adamant. OT stayed close. After shower, pt. transferred to chair right outside of shower. Utilized AE to don clothing. Pt. was able to don pants with effort using dressing stick. OT provided soft sock aide, as he states that the hard one does not work for him. Pt. requires constant encouragement to point toes, lift foot. Does not seem to be utilizing it correctly but then states that it is not working. Pt. is educated on pulling up sock using hook of dressing stick. Pt. attempts to don shoes with AE but requires max encouragement to do so. Pt. unable to get shoes on without OT assisting with back. OT asks pt. if he can use house slipper with hard sole at home. Pt. states that he does not have any, but agrees that someone can buy him some. However, pt. then states that he isn't sure that he can go home, as he can't put on his shoes and socks. Pt. requires max cues to participate and ambulate with OT around dining area. However, when treatment is over pt. states, "that's it?" Education OT Patient Education: Correct positioning, Exercise program, Modified ADL techniques, Progress toward Goal/Update tx plan, Purpose of tx/functional activities, Reviewed precautions, Rehab process, Transfer techniques Teaching Recipient: Patient Teaching Methods: Demonstration, Discussion Response to Teaching: Verbalize Understanding, Return Demonstration OT Short Term Goals Short Term Goals Time Frame: Mar 03, 2018 Bathing(FIM): 4 Lower Body Dressing(FIM): 4 Toileting(FIM): 4 Toilet/Commode Transfer(FIM): 4 Additional Short Term Goals: 2-Verbalize Understanding, 3-ImproveStrength/Cody 1=Demonstrate adherence to instructed precautions during ADL tasks. 2=Patient will verbalize/demonstrate understanding of assistive devices/ modifications for ADL. 3=Patient will improve strength/tolerance for activity to enable patient to perform ADL's. OT Nursing Home Goals Nursing Home Goals Time Frame: Mar 17, 2018 Eating (FIM): 7 Eating (QC): 6 Groomin Oral Hygiene (QC): 6 Bathing(FIM): 5 Shower/Bathe Self (QC): 5 Upper Body Dressing(FIM): 6 Upper Body Dressing (QC): 6 Lower Body Dressing(FIM): 5 Lower Body Dressing (QC): 5 On/Off Footwear (QC): 5 Toileting(FIM): 5 Toileting Hygiene (QC): 5 Toilet/Commode Transfer(FIM): 5 Toilet/Commode Transfer (QC): 5 Shower Transfer(FIM): 5 Additional Goals: 1-Demonstrate ADL Tasks, 2-Verbalize Understanding, 3- ImproveStrength/Cody 1=Demonstrate adherence to instructed precautions during ADL tasks. 2=Patient will verbalize/demonstrate understanding of assistive devices/ modifications for ADL. 3=Patient will improve strength/tolerance for activity to enable patient to perform ADL's. OT Education/Plan Problem List/Assessment Assessment: Decreased Activ Tolerance, Impaired I ADL's, Impaired Self-Care Skills Discharge Recommendations Plan/Recommendations: Continue POC Therapy D/C Recommendations: Home w/ Family Support, Occupational Therapy Home Care, Scheduled Assistance Equpiment Recommendations-D/C: Extended Bath Bench, Hip Kit Barriers to Progress Pt. is somewhat self limiting. Treatment Plan/Plan of Care Treatment,Training & Education: Yes Patient would benefit from OT for education, treatment and training to promote independence in ADL's, mobility, safety and/or upper extremity function for ADL' s. Plan of Care: ADL Retraining, Functional Mobility, Group Exercise/Act as Ind, UE Funct Exercise/Act Treatment Duration: Mar 17, 2018 Frequency: At least 5 of 7 days/Wk (IRF) Estimated Hrs Per Day: 1.5 hours per day Agreement: Yes Rehab Potential: Good Time/GCodes Start Time: 10:05 Stop Time: 11:05 Total Time Billed (hr/min): 60 Billed Treatment Time 1, ADL x 45minutes, FA x 15minutes RICHARD LING OT Mar 13, 2018 14:27
--- NOTE | 2018-03-13 14:37 | Occupational Ther Daily Note ---
OT Current Status-Daily Note Subjective Pt. states, "PT worked me out hard." Appearance Pt. up in therapy dining area. Agrees to work with OT. Mental Status/Objective Patient Orientation: Person, Place, Time, Situation Functional [place] Measure 0=Not Assessed/NA 4=Minimal Assistance 1=Total Assistance 5=Supervision or Setup 2=Maximal Assistance 6=Modified [place] 3=Moderate Assistance 7=Complete [place] ADL-Treatment Functional [place] Measure 0=Not Assessed/NA 4=Minimal Assistance 1=Total Assistance 5=Supervision or Setup 2=Maximal Assistance 6=Modified [place] 3=Moderate Assistance 7=Complete IndependenceIRFPAI Quality Coding Scale 6 Independent with activity with or without an assistive device 5 Patient requires set up or clean up by helper. Patient completes activity by themselves 4 Supervision or touching assist (CGA). [place] provide cues , steadying assist 3 The helper provides less than half the effort to complete the activity 2 The helper provides more than half the effort to complete the activity 1 Dependent. The helper does all the effort to complete an activity 7 Patient refused to complete or attempt activity 9 The patient did not perform the activity before the current illness or injury 88 Not attempted due to Medical conditions or safety concerns Transfers (B, C, W/C) (FIM): 6 (With walker.) Other Treatment Pt. agrees with encouragement to participate in therapy session. Pt. ambulated to therapy gym and completed 20 minutes on armbike at min resistance. Tolerated this well. Pt. states that he wants to try and ambulate back to room without assistive device. Pt. requires CGA to ambulate without walker, approximately 25 feet. Transferred to bed and able to get feet into bed with Mod I. All needs met in room. Education OT Patient Education: Correct positioning, Exercise program, Modified ADL techniques, Progress toward Goal/Update tx plan, Purpose of tx/functional activities, Reviewed precautions, Rehab process, Transfer techniques Teaching Recipient: Patient Teaching Methods: Demonstration, Discussion Response to Teaching: Verbalize Understanding, Return Demonstration OT Short Term Goals Short Term Goals Time Frame: Mar 03, 2018 Bathing(FIM): 4 Lower Body Dressing(FIM): 4 Toileting(FIM): 4 Toilet/Commode Transfer(FIM): 4 Additional Short Term Goals: 2-Verbalize Understanding, 3-ImproveStrength/Cody 1=Demonstrate adherence to instructed precautions during ADL tasks. 2=Patient will verbalize/demonstrate understanding of assistive devices/ modifications for ADL. 3=Patient will improve strength/tolerance for activity to enable patient to perform ADL's. OT Fci Goals Fci Goals Time Frame: Mar 17, 2018 Eating (FIM): 7 Eating (QC): 6 Groomin Oral Hygiene (QC): 6 Bathing(FIM): 5 Shower/Bathe Self (QC): 5 Upper Body Dressing(FIM): 6 Upper Body Dressing (QC): 6 Lower Body Dressing(FIM): 5 Lower Body Dressing (QC): 5 On/Off Footwear (QC): 5 Toileting(FIM): 5 Toileting Hygiene (QC): 5 Toilet/Commode Transfer(FIM): 5 Toilet/Commode Transfer (QC): 5 Shower Transfer(FIM): 5 Additional Goals: 1-Demonstrate ADL Tasks, 2-Verbalize Understanding, 3- ImproveStrength/Cody 1=Demonstrate adherence to instructed precautions during ADL tasks. 2=Patient will verbalize/demonstrate understanding of assistive devices/ modifications for ADL. 3=Patient will improve strength/tolerance for activity to enable patient to perform ADL's. OT Education/Plan Problem List/Assessment Assessment: Decreased Activ Tolerance, Impaired I ADL's, Impaired Self-Care Skills Discharge Recommendations Plan/Recommendations: Continue POC Therapy D/C Recommendations: Home w/ Family Support, Occupational Therapy Home Care, Scheduled Assistance Equpiment Recommendations-D/C: Extended Bath Bench, Hip Kit Treatment Plan/Plan of Care Treatment,Training & Education: Yes Patient would benefit from OT for education, treatment and training to promote independence in ADL's, mobility, safety and/or upper extremity function for ADL' s. Plan of Care: ADL Retraining, Functional Mobility, Group Exercise/Act as Ind, UE Funct Exercise/Act Treatment Duration: Mar 17, 2018 Frequency: At least 5 of 7 days/Wk (IRF) Estimated Hrs Per Day: 1.5 hours per day Agreement: Yes Rehab Potential: Good Time/GCodes Start Time: 13:30 Stop Time: 14:00 Total Time Billed (hr/min): 30 Billed Treatment Time 1,Ex x 2 RICHARD LING OT Mar 13, 2018 14:37
--- NOTE | 2018-03-13 15:24 | Physical Therapy Daily Note ---
PT Daily Note-Current Subjective pt in bed pre tx, agrees to PT, no pain to report Appearance pt in chair in common area of rehab unit, waiting on OT to begin, all needs met Mental Status Patient Orientation: Normal For Age Transfers Functional [place] Measure 0=Not Assessed/NA 4=Minimal Assistance 1=Total Assistance 5=Supervision or Setup 2=Maximal Assistance 6=Modified [place] 3=Moderate Assistance 7=Complete IndependenceIRFPAI Quality Coding Scale 6 Independent with activity with or without an assistive device 5 Patient requires set up or clean up by helper. Patient completes activity by themselves 4 Supervision or touching assist (CGA). [place] provide cues , steadying assist 3 The helper provides less than half the effort to complete the activity 2 The helper provides more than half the effort to complete the activity 1 Dependent. The helper does all the effort to complete an activity 7 Patient refused to complete or attempt activity 9 The patient did not perform the activity before the current illness or injury 88 Not attempted due to Medical conditions or safety concerns Transfers (B, C, W/C) (FIM): 6 Rollin Supine to/from Sit: 6 Sit to/from Stand: 6 mod I for transfers, Cristiane from lower surfaces, pt shows awareness and avoids lower surfaces if possible Weight Bearing Right Lower Extremity: Right Full Weight Bearing Left Lower Extremity: Left Full Weight Bearing Gait Training Does the Patient Walk?: Yes Gait (FIM): 5 Distance: 150'x2, 50'x3 Gait Level of Assist: 5 Gait Persons Needed: 1 Gait Assistive Device: FWW pt ambulates to/from gym w/ FWW, SBA, steady gait w/ improved speed and fewer rest breaks needed GT in // bars forward/backward x3 w/o support, side steps 2x3 laps, obstacle course x2 laps including 1 step, side steps, slalom thru cones, picking up object, up/over airex pad Treatments gait training Assessment Current Status: Fair Progress improved endurance w/ fewer standing rest breaks needed during GT, improved ability to avoid obstacles and use 1 step w/o fear of falling PT Short Term Goals Short Term Goals Time Frame: Mar 03, 2018 Gait (FIM): 2 (met) Gait Distance Comment: 100' Gait Level of Assist: 4 Gait Assistive Device: FWW Wheelchair Distance: 150'x3 PT Skilled Nursing Goals Photonic Laboratory Technician Goals PT Photonic Laboratory Technician Goals Time Frame: Mar 17, 2018 Transfers (B,C,W/C) (FIM): 5 (met) Sit to Lying (QC): 4 (met) Lying-Sitting on Side/Bed(QC): 4 (met) Sit to Stand (QC): 4 (met) Rollin (met) Roll Left to Right (QC): 4 (met) Chair/Suh-yn-Qwksp Xfer(QC): 4 (met) Car Transfer (QC): 4 (met) Gait (FIM): 5 (met) Distance: 150' Walk 10 feet (QC): 4 (mt) Walk 10ft-Uneven Surface(QC): 4 (met) Walk 50ft with 2 Turns (QC): 4 (met) Walk 150 ft (QC): 4 (met) Gait Level of Assist: 5 (met) Gait Assistive Device: FWW Stairs (FIM): 2 (met) # of Steps: 4 (met) 1 Step (curb) (QC): 4 (met) 4 Steps (QC): 4 (met) Stairs Level Of Assist: 4 (met) PT Plan Problem List Problem List: Activity Tolerance, Functional Strength, Safety, Balance, Gait, Transfer, Bed Mobility Treatment/Plan Treatment Plan: Continue Plan of Care Treatment Plan: Bed Mobility, Education, Functional Activity [place], Functional Strength, Group Therapy, Gait, Safety, Therapeutic Exercise, Transfers Treatment Duration: Mar 17, 2018 Frequency: At least 5 of 7 days/Wk (IRF) Estimated Hrs Per Day: 1.5 hours per day Patient and/or Family Agrees t: Yes Safety Risks/Education Patient Education: Gait Training, Transfer Techniques, Steps, Correct Positioning, Safety Issues Teaching Recipient: Patient Teaching Methods: Demonstration, Discussion Response to Teaching: Reinforcement Needed Time/GCodes Time In: 1300 Time Out: 1330 Total Billed Treatment Time: 30 Total Billed Treatment 1 visit GT 30' TRE VARGAS PT Mar 13, 2018 15:24
[2018-03-13 17:34] VITALS: BP 127/73
--- NOTE | 2018-03-13 18:39 | PM & R (SOAP) Progress Note ---
Subjective This was a face to face visit with the patient. Date Seen by Provider: Mar 13, 2018 Time Seen by Provider: 17:50 Subjective/Events-last exam Patient was seen in his room this evening Patient Modified Independent for transfers HGB improved to 8.5 Objective Physician Exam Last Set of Vital Signs Vital Signs Date Time Temp Pulse Resp B/P (MAP) Pulse Ox O2 Delivery O2 Flow Rate FiO2 03/13/18 17:34 99.4 82 18 127/73 (91) 91 Room Air 03/09/18 20:45 93 Capillary Refill : I&O Intake and Output 03/13/18 00:00 Intake Total 2620 ml Output Total 3650 ml Balance -1030 ml Intake Oral 2620 ml Output Urine Total 3650 ml # Bowel Movements 2 General: Alert, Oriented X3, Cooperative, No Acute Distress HEENT: Atraumatic, PERRLA, EOMI, Mucous Memb Moist/[place] Neck: Supple, No JVD Lungs: Clear to Auscultation Heart: Regular Rate, Normal S1, Normal S2 Abdomen: Normal Bowel Sounds, Soft, No Tenderness Extremities: No Clubbing, Normal Pulses, Other (+ 2-3 edema BLE) Skin: No Rashes Neuro: Normal Speech, Strength at 5/5 X4 Ext, Other (generalized weakness) Psych/Mental Status: Mental Status NL Results Lab Data Laboratory Tests 03/10/18 22:37: Glucometer 193H 03/11/18 04:49: Glucometer 151H 03/11/18 11:23: Glucometer 149H 03/11/18 15:59: Glucometer 227H 03/11/18 22:20: Glucometer 177H 03/12/18 05:04: Glucometer 193H 03/12/18 15:53: Glucometer 230H 03/12/18 21:59: Glucometer 182H 03/13/18 05:22: Glucometer 174H 03/13/18 09:20: White Blood Count 7.8, Red Blood Count 3.03L, Hemoglobin 8.5L, Hematocrit 27L, Mean Corpuscular Volume 90, Mean Corpuscular Hemoglobin 28, Mean Corpuscular Hemoglobin Concent 31L, Red Cell Distribution Width 14.6H, Platelet Count 215, Mean Platelet Volume 10.9H, Sodium Level 141, Potassium Level 4.7, Chloride Level 108H, Carbon Dioxide Level 22, Anion Gap 11, Blood Urea Nitrogen 57H, Creatinine 1.96H, Estimat Glomerular Filtration Rate 36, BUN/Creatinine Ratio 29 , Glucose Level 154H, Calcium Level 9.5 03/13/18 10:58: Glucometer 159H 03/13/18 16:32: Glucometer 195H Assessment/Plan Assessment and Plan Spinal stenosis s/p C [address] Hardwick orthospine Postop anemia improved Lab pending and DR Bain to review Hyperkalemia improved with adjustment in meds Peripheral edeam improving General debil secondary to posop anemia associated with Coag negative staph bacterema improved s/p course of triple antibiotics Pyelonephritis by CT treated HCAP treated Dm 2 controlled HTN controlled CHF treated Hypoalbuminemia HLP Plan Continue PT/OT Discharge set for tomorrow pending medical clearance Will f/u with staff and SW tomorrow Co-Morbidities that are continuing to impact the rehab process: (include details ) SALEEM AMATO MD Mar 13, 2018 18:39
[2018-03-13] MEDS: ACETAMINOPHEN 325 MG TABLET PO PRN (19:30)
[2018-03-13] MEDS: ROSUVASTATIN 5 MG (CRESTOR) TABLET PO SCH (20:26)
[2018-03-13] MEDS: MELATONIN 3 MG TABLET PO PRN (22:29)
[2018-03-14 05:02] VITALS: BP 120/68
[2018-03-14 05:53] LABS: CALCIUM 8.8 MG/DL (8.5-10.1); CREATININE SERUM 1.97 MG/DL (0.60-1.30); POTASSIUM 4.2 MMOL/L (3.6-5.0)
[2018-03-14] MEDS: inSUlin ASPART (NovoLOG) 1 UNIT/0.01 ML (CHARGE PER UNIT) SC SCH ×2 (06:05→11:44)
[2018-03-14] MEDS: FERROUS SULF 325 MG (IRON) TAB PO SCH (06:20)
[2018-03-14] MEDS: PANTOPRAZOLE 40 MG (PROTONIX) TAB PO SCH (06:20)
[2018-03-14] MEDS: GLIMEPIRIDE 4 MG (AMARYL) TAB PO SCH (06:20)
--- NOTE | 2018-03-14 07:27 | PM & R (SOAP) Progress Note ---
Subjective This was a face to face visit with the patient. Date Seen by Provider: Mar 14, 2018 Time Seen by Provider: 07:15 Subjective/Events-last exam Patient was seen in his room this AM .Probable discharge today Awaiting DR Nye f/u Had [employer] chicken wings delivered last night probably not helping with Edema due to possible salt load..Patient Modified Independent on Unit with st cane. Date Identified: Mar 14, 2018 Time Identified: 07:15 Medication Intervention: Discharge meds reviewed Objective Physician Exam Last Set of Vital Signs Vital Signs Date Time Temp Pulse Resp B/P (MAP) Pulse Ox O2 Delivery O2 Flow Rate FiO2 03/14/18 05:02 99.0 72 20 120/68 (85) 97 Room Air 03/09/18 20:45 93 Capillary Refill : I&O Intake and Output 03/14/18 00:00 Intake Total 1800 ml Output Total 3925 ml Balance -2125 ml Intake Oral 1800 ml Output Urine Total 3925 ml # Bowel Movements 1 General: Alert, Oriented X3, Cooperative, No Acute Distress HEENT: Atraumatic, PERRLA, EOMI, Mucous Memb Moist/[place] Neck: Supple, No JVD Lungs: Clear to Auscultation Heart: Regular Rate, Normal S1, Normal S2 Abdomen: Normal Bowel Sounds, Soft, No Tenderness Extremities: No Clubbing, Normal Pulses, Other (+ 2-3 edema BLE) Skin: No Rashes Neuro: Normal Speech, Strength at 5/5 X4 Ext, Other (generalized weakness) Psych/Mental Status: Mental Status NL Results Lab Data Laboratory Tests 03/11/18 11:23: Glucometer 149H 03/11/18 15:59: Glucometer 227H 03/11/18 22:20: Glucometer 177H 03/12/18 05:04: Glucometer 193H 03/12/18 15:53: Glucometer 230H 03/12/18 21:59: Glucometer 182H 03/13/18 05:22: Glucometer 174H 03/13/18 09:20: White Blood Count 7.8, Red Blood Count 3.03L, Hemoglobin 8.5L, Hematocrit 27L, Mean Corpuscular Volume 90, Mean Corpuscular Hemoglobin 28, Mean Corpuscular Hemoglobin Concent 31L, Red Cell Distribution Width 14.6H, Platelet Count 215, Mean Platelet Volume 10.9H, Sodium Level 141, Potassium Level 4.7, Chloride Level 108H, Carbon Dioxide Level 22, Anion Gap 11, Blood Urea Nitrogen 57H, Creatinine 1.96H, Estimat Glomerular Filtration Rate 36, BUN/Creatinine Ratio 29 , Glucose Level 154H, Calcium Level 9.5 03/13/18 10:58: Glucometer 159H 03/13/18 16:32: Glucometer 195H 03/13/18 22:25: Glucometer 242H 03/14/18 05:25: Sodium Level 142, Potassium Level 4.2, Chloride Level 108H, Carbon Dioxide Level 24, Anion Gap 10, Blood Urea Nitrogen 61H, Creatinine 1.97H, Estimat Glomerular Filtration Rate 36, BUN/Creatinine Ratio 31, Glucose Level 134H, Calcium Level 8.8 Assessment/Plan Assessment and Plan Discharge today TO HOME Will f/u with DR osman as an outpatient most likely as the patient has a ride set up for 12 noon Discussed with Rn Patient might benefit from further dietary counseling which could be done on an outpatient basis Current meds reviewed F/U with PCp DR Younger See orders Co-Morbidities that are continuing to impact the rehab process: (include details ) SALEEM AMATO MD Mar 14, 2018 07:27
[2018-03-14] MEDS: FUROSEMIDE 40 MG (LASIX) TAB PO SCH (08:10)
[2018-03-14] MEDS: LORATADINE (CLARITIN) 10 MG TAB PO SCH (08:10)
[2018-03-14] MEDS: amLODIPine 10 MG (NORVASC) TAB PO SCH (08:10)
[2018-03-14] MEDS: meTOprolol TARTRATE 50 MG (LOPRESSOR) TAB PO SCH (08:10)
[2018-03-14] MEDS: GABAPENTIN 600 MG (NEURONTIN) TAB PO SCH (08:11)
[2018-03-14] MEDS: MENTHOL/ZINC OXIDE (CALMOSEPTINE) 113 GM TUBE TOP SCH (08:11)
[2018-03-14] MEDS: MICONAZOLE 2% POWDER (DESENEX AF) 90 GM TOP SCH (08:11)
[2018-03-14] MEDS: hydrALAZINE (APRESOLINE) 25 MG TAB PO SCH (08:11)
[2018-03-14] MEDS: ASPIRIN E.C. 81 MG (ECOTRIN) TAB PO SCH (08:11)
--- NOTE | 2018-03-14 08:41 | Progress Note (SOAP) ---
Subjective Time Seen by a Provider: 08:39 Subjective/Events-last exam patient excited to go home today. patient getting around with a cane. Objective Exam Vital Signs Date Time Temp Pulse Resp B/P (MAP) Pulse Ox O2 Delivery O2 Flow Rate FiO2 03/14/18 05:02 99.0 72 20 120/68 (85) 97 Room Air 03/13/18 17:34 99.4 82 18 127/73 (91) 91 Room Air I & O 03/14/18 07:00 Intake Total 1850 ml Output Total 3925 ml Balance -2075 ml Capillary Refill : General Appearance: No Apparent Distress, WD/WN HEENT: Normal ENT Inspection Neck: Normal Inspection Respiratory: No Accessory Muscle Use, No Respiratory Distress Cardiovascular: Regular Rate, Rhythm, No Murmur Gastrointestinal: non tender, soft Results Lab Laboratory Tests 03/13/18 09:20 03/14/18 05:25 Laboratory Tests 03/13/18 09:20: White Blood Count 7.8, Red Blood Count 3.03L, Hemoglobin 8.5L, Hematocrit 27L, Mean Corpuscular Volume 90, Mean Corpuscular Hemoglobin 28, Mean Corpuscular Hemoglobin Concent 31L, Red Cell Distribution Width 14.6H, Platelet Count 215, Mean Platelet Volume 10.9H, Sodium Level 141, Potassium Level 4.7, Chloride Level 108H, Carbon Dioxide Level 22, Anion Gap 11, Blood Urea Nitrogen 57H, Creatinine 1.96H, Estimat Glomerular Filtration Rate 36, BUN/Creatinine Ratio 29 , Glucose Level 154H, Calcium Level 9.5 03/13/18 10:58: Glucometer 159H 03/13/18 16:32: Glucometer 195H 03/13/18 22:25: Glucometer 242H 03/14/18 05:25: Sodium Level 142, Potassium Level 4.2, Chloride Level 108H, Carbon Dioxide Level 24, Anion Gap 10, Blood Urea Nitrogen 61H, Creatinine 1.97H, Estimat Glomerular Filtration Rate 36, BUN/Creatinine Ratio 31, Glucose Level 134H, Calcium Level 8.8 Assessment/Plan Assessment/Plan Assess & Plan/Chief Complaint Diabetes. Coagulase negative bacteremia. Recent cervical surgery. Myopathy. Weakness. Renal insufficiency. . 03/01/18. Diabetes doing better. Coagulase negative bacteremia. Recent cervical surgery. Myopathy. Weakness. Renal insufficiency.. . To 03/02/18. Weakness. Renal insufficiency. Coagulase negative bacteremia. Hemoglobin 6.7. Patient to get 1 unit of packed red blood cells today 03/03/18: Weakness. Renal insufficiency. Anemia, Hemoglobin 7.7 DM. GABRIELLA.. . 03/06/18. Weakness. Renal insufficiency. Anemia. Diabetes. GABRIELLA. Patient gained 8 pounds.. . 03/07/18. Weakness. Renal insufficiency. Anemia. Diabetes. Patient weight stabilized today. Patient more anemic. GFR decreasing. . 03/08/18. Weakness. Anemia. Renal insufficiency. Recent cervical surgery.. . 03/09/18. Weakness. Anemia. Renal insufficiency. Recent cervical surgery. Diabetes. . . Weakness. Anemia. Renal insufficiency. Recent cervical surgery. Diabetes. . 03/13/18. Recent cervical surgery. Weakness. Anemia. Renal insufficiency. Diabetes. Patient feeling better. . 03/14/18 Recent cervical surgery. Weakness. Renal insufficiency. Diabetes. patient discharged today Clinical Quality Measures DVT/VTE Risk/Contraindication: Risk Factor Score Per Nursin RFS Level Per Nursing on Admit: 4+=Very High MARIIA SIM DO Mar 14, 2018 08:41
--- NOTE | 2018-03-14 09:40 | Cardiology Progress Note ---
Subjective Date Seen by Provider: Mar 14, 2018 Time Seen by Provider: 08:05 Subjective/Events-last exam Patient sitting up in bed, no new complaint. Denies any chest pain or dyspnea. Objective-Cardiology Exam Last Set of Vital Signs Vital Signs 03/09/18 03/14/18 20:45 05:02 Temp 99.0 Pulse 72 Resp 20 B/P (MAP) 120/68 (85) Pulse Ox 97 O2 Delivery Room Air FiO2 93 Capillary Refill : I&O Intake and Output 03/14/18 00:00 Intake Total 1800 ml Output Total 3925 ml Balance -2125 ml Intake Oral 1800 ml Output Urine Total 3925 ml # Bowel Movements 1 General: Alert, Oriented X3, Cooperative, No Acute Distress HEENT: Atraumatic, PERRLA, EOMI, Mucous Memb Moist/[place] Neck: Supple, No JVD Lungs: Clear to Auscultation Heart: Regular Rate, Normal S1, Normal S2 Abdomen: Normal Bowel Sounds, Soft, No Tenderness Extremities: No Clubbing, Normal Pulses, Other (+ 2-3 edema BLE) Skin: No Rashes Neuro: Normal Speech, Strength at 5/5 X4 Ext, Other (generalized weakness) Psych/Mental Status: Mental Status NL Results Lab Laboratory Tests 03/14/18 05:25 A/P-Cardiology Admission Diagnosis Acute renal failure Peripheral edema Coronary artery disease Hypertension Assessment/Plan Generalized weakness and loss of energy secondary to complicated hospital stay after neck surgery, had pneumonia, bacteremia, received antibiotic and reporting improvement. Peripheral edema, +2-3. Acute on chronic renal failure, given additional dose of Zaroxolyn yesterday. Discussed again diet and limiting salt. Anemia, s/p transfusion. Dr. Kumar managing. Continue to monitor Hyperkalemia, improved. Discontinued losartan, continue to monitor electrolytes and renal function while receiving Lasix Echocardiogram was done at [facility] on February 14, 2018 showing moderate LVH, moderately dilated left atrium, diastolic dysfunction, estimated PA pressure 40 mmHg, ejection fraction 50-55 percent. Patient has refused to take Lovenox due to bleeding, using SCD. Acute on chronic renal insufficiency. Continue to monitor. History of coronary artery disease, history of mid LAD stenting using Alpine 3.0 18 mm done in June 2017, mild to moderate disease in the proximal portion of the LAD, moderate disease at the distal circumflex artery. Continue to monitor History of diabetes mellitus, diabetic neuropathy, followed and managed by primary care physician History of hyperlipidemia with intolerance to statin. Spinal stenosis, status post C3-7 ACDF with C5 corpectomy done by Dr. Hardwick History of carotid stenosis, last ultrasound was done in July 2017. Continue to monitor History of respiratory failure secondary to pneumonia. Improved. Continue to monitor OK for discharge from cardiology standpoint. Follow up in Dr. Perez's office in 2 weeks. Clinical Quality Measures DVT/VTE Risk/Contraindication: Risk Factor Score Per Nursin RFS Level Per Nursing on Admit: 4+=Very High CLAY SOMERS Mar 14, 2018 09:40
[2018-03-14] MEDS ORDERED: HYDR-3923 PO (09:58)
[2018-03-14] MEDS ORDERED: FERR325T18 PO (09:58)
[2018-03-14] MEDS ORDERED: MENT71OI TOP (09:58)
[2018-03-14] MEDS ORDERED: AMLO10TA6 PO (09:58)
[2018-03-14] MEDS ORDERED: FURO40TA4 PO (09:58)
[2018-03-14] MEDS ORDERED: PANT40TA3 PO (09:58)
[2018-03-14 11:45] VITALS: BP 120/68
--- NOTE | 2018-03-14 11:57 | Physical Therapy Daily Note ---
PT Daily Note-Current Subjective pt in bed pre tx, agrees to PT, no pain to report Appearance pt in gym post tx to begin OT, all needs met Mental Status Patient Orientation: Normal For Age Transfers Functional [place] Measure 0=Not Assessed/NA 4=Minimal Assistance 1=Total Assistance 5=Supervision or Setup 2=Maximal Assistance 6=Modified [place] 3=Moderate Assistance 7=Complete IndependenceIRFPAI Quality Coding Scale 6 Independent with activity with or without an assistive device 5 Patient requires set up or clean up by helper. Patient completes activity by themselves 4 Supervision or touching assist (CGA). [place] provide cues , steadying assist 3 The helper provides less than half the effort to complete the activity 2 The helper provides more than half the effort to complete the activity 1 Dependent. The helper does all the effort to complete an activity 7 Patient refused to complete or attempt activity 9 The patient did not perform the activity before the current illness or injury 88 Not attempted due to Medical conditions or safety concerns Transfers (B, C, W/C) (FIM): 6 Supine to/from Sit: 6 Sit to/from Stand: 7 supine <->sit mod I w/ use of bed rails, independent w/ sit<->stand Weight Bearing Right Lower Extremity: Right Full Weight Bearing Left Lower Extremity: Left Full Weight Bearing Gait Training Does the Patient Walk?: Yes Gait (FIM): 6 Distance: 150' Gait Level of Assist: 6 Gait Assistive Device: Cane Single Point pt ambulates to gym w/ SPC mod I, steady, no LOB Exercises NuStep Minutes: 30 NuStep Workload: 7 Treatments gait training, endurance training Assessment Current Status: Fair Progress improved independence w/ ambulation, uses SPC and is aware of when he may need FWW PT Short Term Goals Short Term Goals Time Frame: Mar 03, 2018 Gait (FIM): 2 (met) Gait Distance Comment: 100' Gait Level of Assist: 4 Gait Assistive Device: FWW Wheelchair Distance: 150'x3 PT Detention Goals Detention Goals PT Detention Goals Time Frame: Mar 17, 2018 Transfers (B,C,W/C) (FIM): 5 (met) Sit to Lying (QC): 4 (met) Lying-Sitting on Side/Bed(QC): 4 (met) Sit to Stand (QC): 4 (met) Rollin Roll Left to Right (QC): 4 (met) Chair/[id number] Xfer(QC): 4 (met) Car Transfer (QC): 4 (met) Gait (FIM): 5 (met) Distance: 150' Walk 10 feet (QC): 4 (mt) Walk 10ft-Uneven Surface(QC): 4 (met) Walk 50ft with 2 Turns (QC): 4 (met) Walk 150 ft (QC): 4 (met) Gait Level of Assist: 5 (met) Gait Assistive Device: FWW Stairs (FIM): 2 (met) # of Steps: 4 (met) 1 Step (curb) (QC): 4 (met) 4 Steps (QC): 4 (met) Stairs Level Of Assist: 4 (met) PT Plan Problem List Problem List: Activity Tolerance, Functional Strength, Safety, Balance, Gait, Transfer, Bed Mobility Treatment/Plan Treatment Plan: Continue Plan of Care Treatment Plan: Bed Mobility, Education, Functional Activity [place], Functional Strength, Group Therapy, Gait, Safety, Therapeutic Exercise, Transfers Treatment Duration: Mar 17, 2018 Frequency: At least 5 of 7 days/Wk (IRF) Estimated Hrs Per Day: 1.5 hours per day Patient and/or Family Agrees t: Yes Safety Risks/Education Patient Education: Gait Training, Transfer Techniques, Reviewed Precautions, Correct Positioning, Reviewed Don/Doff Brace, Safety Issues Teaching Recipient: Patient Teaching Methods: Demonstration, Discussion Response to Teaching: Reinforcement Needed Time/GCodes Time In: 1045 Time Out: 1100 Total Billed Treatment Time: 45 Total Billed Treatment 1 visit GT 15' EX 30' MARCELL BADILLO PT Mar 14, 2018 11:56
--- NOTE | 2018-03-14 11:58 | Occupational Ther Daily Note ---
OT Current Status-Daily Note Subjective Pt finishing with PT, agrees to OT treatment. Pt anxious to see physician so he can discharge home. Mental Status/Objective Functional [place] Measure 0=Not Assessed/NA 4=Minimal Assistance 1=Total Assistance 5=Supervision or Setup 2=Maximal Assistance 6=Modified [place] 3=Moderate Assistance 7=Complete [place] ADL-Treatment Pt in therapy gym after working with PT, agrees to OT with encouragement. Pt completed arm bike with bilateral UE x20 minutes to increase overall activity tolerance and strength for functional activities. Pt completed task with minimal resistance and steady pace. One rest break taken. Gait to room with SPC with slow pace. Pt retrieved shirt from closet with cane for balance. Changed shirt with modified independence. Gait to restroom without LOB. Pt stood at toilet to urinate with modified independence. Pt requests to pack clothing in preparation for d/c. Pt retrieved clothing from closet and placed in bags with SBA for balance. Pt reports fatigue and transferred to chair with modified independence. Increased time for functional tasks. Pt sitting in chair with needs met and RN present to go over discharge after session. Functional [place] Measure 0=Not Assessed/NA 4=Minimal Assistance 1=Total Assistance 5=Supervision or Setup 2=Maximal Assistance 6=Modified [place] 3=Moderate Assistance 7=Complete IndependenceIRFPAI Quality Coding Scale 6 Independent with activity with or without an assistive device 5 Patient requires set up or clean up by helper. Patient completes activity by themselves 4 Supervision or touching assist (CGA). [place] provide cues , steadying assist 3 The helper provides less than half the effort to complete the activity 2 The helper provides more than half the effort to complete the activity 1 Dependent. The helper does all the effort to complete an activity 7 Patient refused to complete or attempt activity 9 The patient did not perform the activity before the current illness or injury 88 Not attempted due to Medical conditions or safety concerns Upper Body (FIM): 6 Upper Body Dressing (QC): 6 Toileting (FIM): 6 OT Short Term Goals Short Term Goals Time Frame: Mar 03, 2018 Bathing(FIM): 4 Lower Body Dressing(FIM): 4 Toileting(FIM): 4 Toilet/Commode Transfer(FIM): 4 Additional Short Term Goals: 2-Verbalize Understanding, 3-ImproveStrength/[place] 1=Demonstrate adherence to instructed precautions during ADL tasks. 2=Patient will verbalize/demonstrate understanding of assistive devices/ modifications for ADL. 3=Patient will improve strength/tolerance for activity to enable patient to perform ADL's. OT Fpc Goals Revenue Analyst Goals Time Frame: Mar 17, 2018 Eating (FIM): 7 Eating (QC): 6 Groomin Oral Hygiene (QC): 6 Bathing(FIM): 5 Shower/Bathe Self (QC): 5 Upper Body Dressing(FIM): 6 Upper Body Dressing (QC): 6 Lower Body Dressing(FIM): 5 Lower Body Dressing (QC): 5 On/Off Footwear (QC): 5 Toileting(FIM): 5 Toileting Hygiene (QC): 5 Toilet/Commode Transfer(FIM): 5 Toilet/Commode Transfer (QC): 5 Shower Transfer(FIM): 5 Additional Goals: 1-Demonstrate ADL Tasks, 2-Verbalize Understanding, 3- ImproveStrength/[place] 1=Demonstrate adherence to instructed precautions during ADL tasks. 2=Patient will verbalize/demonstrate understanding of assistive devices/ modifications for ADL. 3=Patient will improve strength/tolerance for activity to enable patient to perform ADL's. OT Education/Plan Discharge Recommendations Plan/Recommendations: Continue POC Treatment Plan/Plan of Care Patient would benefit from OT for education, treatment and training to promote independence in ADL's, mobility, safety and/or upper extremity function for ADL' s. Plan of Care: ADL Retraining, Functional Mobility, Group Exercise/Act as Ind, UE Funct Exercise/Act Treatment Duration: Mar 17, 2018 Frequency: At least 5 of 7 days/Wk (IRF) Estimated Hrs Per Day: 1.5 hours per day Agreement: Yes Rehab Potential: Good Time/GCodes Start Time: 11:00 Stop Time: 11:50 Total Time Billed (hr/min): 50 Billed Treatment Time 1 visit, EX(20minutes), ADLx2(30minutes) BRENT COLLAZO OT Mar 14, 2018 11:58
--- NOTE | 2018-03-14 13:46 | D/C HH Face to Face Order ---
D/C Face to Face Orders Instructions for Patient Patient Instructions/FollowUp: Dr. Younger Physician to follow Patient: Dr. Younger Discharge Diet for Home: Low Sodium Diet Patient Data-Allergies,Ht & Wt Patient Allergies: Coded Allergies: tazobactam (Verified Allergy, Unknown, RASH, 02/10/18) Height (Feet): 5 Height (Inches): 11.00 Weight (Pounds): 308 Weight (Ounces): 14.4 Home Health Need/Face to Face Date of Face to Face: Mar 14, 2018 Clinical Findings: Generalized weakness and fatigue, Muscle weakness, Unsteady gait I have seen Pt [id number]: Yes Discharged To: Home Diagnosis/Conditions: non-traumatic spinal cord injury Patient is Homebound due to: Amol fall risk due to instabilty, Muscle weakness Homebound Status Due to the above stated illness, injury or surgical procedure (medical condition or diagnosis) and associated clinical findings, the patient is homebound because of his/her inability to leave home except with aid of a supportive device and/or person AND leaving the home requires a considerable and taxing effort or is medically contraindicated. Pt req the following assistanc: Walker Home Health Nursing Orders Home Health Services Order: Nursing Services, Manager Ecommerce-Evaluate & Treat, Physical Therapy-Evaluate & Treat Home Health Infusion Therapy Line Type: PICC Site Location: Arm-Upper Therapy Orders Therapy Orders: OT (must have SN or PT order), Physical Therapy Therapy Specific Orders: Eval assistive deivces, Teach enviro modifications/ safety, Gait training, Increase strength/endurance, Restore ROM Certify Stmt I certify that this patient is under my care and that I, a nurse practitioner or a physician; a events and promotions assistant working with me, had a face to face encounter that - meets the physician face to face encounter requirements with this patient as dated. I personally scribed for SALEEM AMATO MD ([place]NER) on 03/14/18 at 13:46. Electronically submitted by Jennifer Garcia ([id number]). SALEEM AMATO MD Mar 14, 2018 13:38
--- NOTE | 2018-03-14 14:57 | Therapy Team Discharge Summary ---
Therapy Discharge Summary Discharge Recommendations Date of Discharge Mar 14, 2018 at 12:30 Therapy D/C Recommendations: Home w/ Family Support, Occupational Therapy Home Care, Scheduled Assistance Occupational Therapy Pt admitted to ARU following neck surgery and debility. On admission pt required max assist with LE dressing, mod assist with toilet transfer, toileting , and bathing, and SBA with UE dressing and grooming. Skilled OT intervention focused on ADL training, transfers, strengthening, activity tolerance, and safety. Pt made progress with therapy and by discharge is completing eating independently and toileting, toilet transfer, and grooming with modified independence. Bathing and shower transfer with SBA. Pt requiring minimal assistance with LE dressing, but requires encouragement to attempt using adaptive equipment. Pt met goals except for dressing. Pt discharging home this date and will be discharged from ARU OT at this time. Decreased Activ Tolerance, Impaired I ADL's, Impaired Self-Care Skills PT Group Exercise Manager Goals Mcc Goals PT Mcc Goals Time Frame: Mar 17, 2018 Transfers (B,C,W/C) (FIM): 5 (met) Roll Left to Right (QC): 4 (met) Sit to Lying (QC): 4 (met) Lying-Sitting on Side/Bed(QC): 4 (met) Sit to Stand (QC): 4 (met) Chair/Wsl-bi-Qnilb Xfer(QC): 4 (met) Car Transfer (QC): 4 (met) Gait (FIM): 5 (met) Distance: 150' Walk 10 feet (QC): 4 (mt) Walk 10ft-Uneven Surface(QC): 4 (met) Walk 50ft with 2 Turns (QC): 4 (met) Walk 150 ft (QC): 4 (met) Gait Level of Assist: 5 (met) Gait Assistive Device: FWW Stairs (FIM): 2 (met) # of Steps: 4 (met) 1 Step (curb) (QC): 4 (met) 4 Steps (QC): 4 (met) Stairs Level Of Assist: 4 (met) OT Mcc Goals Group Exercise Manager Goals Time Frame: Mar 17, 2018 Eating (FIM): 7 Eating (QC): 6 Oral Hygiene (QC): 6 Grooming(FIM): 6 Bathing(FIM): 5 Shower/Bathe Self (QC): 5 Upper Body Dressing(FIM): 6 Upper Body Dressing (QC): 6 Lower Body Dressing(FIM): 5 Lower Body Dressing (QC): 5 On/Off Footwear (QC): 5 Toileting(FIM): 5 Toileting Hygiene (QC): 5 Toilet/Commode Transfer(FIM): 5 Toilet/Commode Transfer (QC): 5 Shower Transfer(FIM): 5 Additional Goals: 1-Demonstrate ADL Tasks, 2-Verbalize Understanding, 3- ImproveStrength/Cody 1=Demonstrate adherence to instructed precautions during ADL tasks. 2=Patient will verbalize/demonstrate understanding of assistive devices/ modifications for ADL. 3=Patient will improve strength/tolerance for activity to enable patient to perform ADL's. Speech Group Exercise Manager Goals Group Exercise Manager Goals no goals established as skilled ST not indicated. BRENT COLLAZO OT Mar 14, 2018 14:57
--- NOTE | 2018-03-15 10:35 | Therapy Team Discharge Summary ---
Therapy Discharge Summary Discharge Recommendations Date of Discharge Mar 14, 2018 at 12:30 Therapy D/C Recommendations: Home w/ Family Support, Occupational Therapy Home Care, Scheduled Assistance Physical Therapy Patient came to rehab following debility, difficulty walking, cervical surgery. Upon evaluation patient performed bed mobility with SBA/CGA, supine <-> sit with min assist, sit to stand with mod assist, transfers with CGA, car transfer CGA, ambulated 40' with a rolling walker with CGA, and propelled a manual wheelchair 50' with SBA. Patient has been performing bed mobility and transfer training, balance and endurance training, functional strengthening, stair training, gait training, and education. Patient has made good progress and has met all of his group home goals. Now, patient performs bed mobility and transfers with mod I, car transfer mod I, ambulates 150' with a rolling walker with mod I (including 50' with at least 2 turns of 90 degrees and 10' over an uneven surface), and can go up and down 4 steps using 2 handrails with CGA. Patient has been discharged from this facility and will be discharged from PT at this time. Occupational Therapy Decreased Activ Tolerance, Impaired I ADL's, Impaired Self-Care Skills PT Dope Weigh Operator Goals Long-Term Goals PT Dope Weigh Operator Goals Time Frame: Mar 17, 2018 Transfers (B,C,W/C) (FIM): 5 (met) Roll Left to Right (QC): 4 (met) Sit to Lying (QC): 4 (met) Lying-Sitting on Side/Bed(QC): 4 (met) Sit to Stand (QC): 4 (met) Chair/Nsc-sl-Wtglr Xfer(QC): 4 (met) Car Transfer (QC): 4 (met) Gait (FIM): 5 (met) Distance: 150' Walk 10 feet (QC): 4 (mt) Walk 10ft-Uneven Surface(QC): 4 (met) Walk 50ft with 2 Turns (QC): 4 (met) Walk 150 ft (QC): 4 (met) Gait Level of Assist: 5 (met) Gait Assistive Device: FWW Stairs (FIM): 2 (met) # of Steps: 4 (met) 1 Step (curb) (QC): 4 (met) 4 Steps (QC): 4 (met) Stairs Level Of Assist: 4 (met) OT Dope Weigh Operator Goals Long-Term Goals Time Frame: Mar 17, 2018 Eating (FIM): 7 Eating (QC): 6 Oral Hygiene (QC): 6 Grooming(FIM): 6 Bathing(FIM): 5 Shower/Bathe Self (QC): 5 Upper Body Dressing(FIM): 6 Upper Body Dressing (QC): 6 Lower Body Dressing(FIM): 5 Lower Body Dressing (QC): 5 On/Off Footwear (QC): 5 Toileting(FIM): 5 Toileting Hygiene (QC): 5 Toilet/Commode Transfer(FIM): 5 Toilet/Commode Transfer (QC): 5 Shower Transfer(FIM): 5 Additional Goals: 1-Demonstrate ADL Tasks, 2-Verbalize Understanding, 3- ImproveStrength/Cody 1=Demonstrate adherence to instructed precautions during ADL tasks. 2=Patient will verbalize/demonstrate understanding of assistive devices/ modifications for ADL. 3=Patient will improve strength/tolerance for activity to enable patient to perform ADL's. Speech Dope Weigh Operator Goals Long-Term Goals no goals established as skilled ST not indicated. MARCELL BADILLO PT Mar 15, 2018 10:35
== END 2018-03-14 12:30 | disposition home or self-care (01) | DRG 91 ==
PROVIDERS: ADMIT Physical Medicine & Rehabilitation; ATTEND Physical Medicine & Rehabilitation
DX: G72.81 Critical illness myopathy (principal); J18.9 Pneumonia, unspecified organism; R78.81 Bacteremia; R26.2 Difficulty in walking, not elsewhere classified; B95.7 Other staphylococcus as the cause of diseases classified elsewhere; A04.72 Enterocolitis due to Clostridium difficile, not specified as recurrent; Z68.41 Body mass index [BMI] 40.0-44.9, adult; I42.9 Cardiomyopathy, unspecified; I13.0 Hypertensive heart and chronic kidney disease with heart failure and stage 1 through stage 4 chronic kidney disease, or unspecified chronic kidney disease; N18.3 Chronic kidney disease, stage 3 (moderate); I50.9 Heart failure, unspecified; M62.50 Muscle wasting and atrophy, not elsewhere classified, unspecified site; D63.8 Anemia in other chronic diseases classified elsewhere; R53.1 Weakness; F41.9 Anxiety disorder, unspecified; F32.9 Major depressive disorder, single episode, unspecified; R45.3 Demoralization and apathy; E11.65 Type 2 diabetes mellitus with hyperglycemia; G60.9 Hereditary and idiopathic neuropathy, unspecified; E11.51 Type 2 diabetes mellitus with diabetic peripheral angiopathy without gangrene; E11.40 Type 2 diabetes mellitus with diabetic neuropathy, unspecified; I25.10 Atherosclerotic heart disease of native coronary artery without angina pectoris; E78.5 Hyperlipidemia, unspecified; G47.33 Obstructive sleep apnea (adult) (pediatric); E66.9 Obesity, unspecified; L30.9 Dermatitis, unspecified; M19.91 Primary osteoarthritis, unspecified site; E88.09 Other disorders of plasma-protein metabolism, not elsewhere classified; E87.5 Hyperkalemia; Z95.5 Presence of coronary angioplasty implant and graft
CPT/HCPCS: 36415; 71046; 72050; 80048; 80053; 82274; 82607; 82668; 82728; 82747; 82962; 83540; 83735; 83880; 85007; 85025; 85027; 85045; 86850; 86900; 86901; 86920

== ENCOUNTER → 2018-03-20 | Outpatient (CLI) | payer BC ==
[~2018-03-20] MED LIST changes: +FERR325T18 PO; +MENT71OI TOP; +PANT40TA3 PO
[2018-03-20 17:46] LABS: HEMOGLOBIN 8.3 G/DL (13.3-17.7); MEAN PLATELET VOLUME 10.3 FL (7.4-10.4); RED BLOOD COUNT 2.86 10^6/uL (4.35-5.85); RED CELL DISTRIBUTION WIDTH 14.6 % (10.0-14.5); WHITE BLOOD COUNT 6.9 10^3/uL (4.3-11.0)
[2018-03-20 18:05] LABS: CALCIUM 9.1 MG/DL (8.5-10.1); CREATININE SERUM 2.15 MG/DL (0.60-1.30); POTASSIUM 4.2 MMOL/L (3.6-5.0)
--- NOTE | 2018-03-20 18:32 | Diagnostic Imaging Report ---
INDICATION: Pneumonia. COMPARISON: 02/27/2018 TECHNIQUE: Two radiographs of the chest dated 03/20/2018. FINDINGS: Postsurgical changes are again noted within the cervicothoracic spine. Previously noted right-sided PICC line has been removed. The cardiac silhouette is mildly enlarged. Mild central pulmonary vascular congestion. Mild bibasilar pulmonary opacities are present as are perihilar opacities. These appear minimally worsened since the prior examination. Tiny bibasilar pleural effusions. No pneumothorax. Scattered osseous degenerative changes without acute osseous abnormality. IMPRESSION: 1. Slightly worsening bilateral perihilar and basilar infiltrate and/or atelectasis with associated tiny bibasilar pleural effusions. 2. Persistent cardiomegaly with mild central pulmonary vascular congestion. 3. Interval removal of previously noted right-sided PICC line. Dictated by: Dictated on workstation # [id number]
== END ==
LOC: LAB 17:19
PROVIDERS: ATTEND Family Medicine
DX: J18.9 Pneumonia, unspecified organism (principal); R60.0 Localized edema
CPT/HCPCS: 36415; 71046; 80048; 83880; 85027

== ENCOUNTER 2018-03-24 08:35 | Outpatient (RCR) | payer BC ==
[~2018-03-24 08:35] MED LIST changes: -SENN-140 PO; +SENN-141 PO
[2018-03-24 09:00] LABS: ABSOLUTE RETIC # 88 10e9/L (24-90); BASOPHILS % (AUTO) 1 % (0-10); EOSINOPHILS # (AUTO) 0.5 10^3/uL (0.0-0.3); EOSINOPHILS % (AUTO) 7 % (0-10); HEMATOCRIT 27 % (40-54); HEMOGLOBIN 8.3 G/DL (13.3-17.7); LYMPHOCYTES # (AUTO) 0.8 X 10^3 (1.0-4.0); LYMPHOCYTES % (AUTO) 10 % (12-44); MEAN CORPUSCULAR HEMOGLOBIN 27 PG (25-34); MEAN CORPUSCULAR HGB CONC 30 G/DL (32-36); MEAN CORPUSCULAR VOLUME 90 FL (80-99); MEAN PLATELET VOLUME 10.6 FL (7.4-10.4); MONOCYTES # (AUTO) 0.6 X 10^3 (0.0-1.0); MONOCYTES % (AUTO) 7 % (0-12); NEUTROPHILS # (AUTO) 5.9 X 10^3 (1.8-7.8); NEUTROPHILS % (AUTO) 75 % (42-75); PLATELET COUNT 215 10^3/uL (130-400); RED BLOOD COUNT 3.02 10^6/uL (4.35-5.85); RED CELL DISTRIBUTION WIDTH 14.9 % (10.0-14.5); RETICULOCYTE % 2.92 % (0.50-2.40); WHITE BLOOD COUNT 7.8 10^3/uL (4.3-11.0)
[2018-03-24 09:23] LABS: ALBUMIN 3.7 GM/DL (3.2-4.5); BILIRUBIN,TOTAL 0.5 MG/DL (0.1-1.0); CALCIUM 8.8 MG/DL (8.5-10.1); CREATININE SERUM 2.08 MG/DL (0.60-1.30); POTASSIUM 4.4 MMOL/L (3.6-5.0); TOTAL PROTEIN 6.6 GM/DL (6.4-8.2)
[2018-03-27] MEDS ORDERED: FURO20TA4 PO (15:57)
[2018-03-27] MEDS ORDERED: HYDR-3923 PO (15:57)
[2018-03-27] MEDS ORDERED: PANT40TA3 PO (15:57)
[2018-03-27] MEDS ORDERED: FERR325T18 PO (15:57)
[2018-03-27] MEDS ORDERED: FURO40TA4 PO (15:57)
[2018-03-27] MEDS ORDERED: AMLO10TA6 PO (15:57)
[2018-04-07] MEDS ORDERED: HYDR-3923 PO (08:13)
[2018-04-07] MEDS ORDERED: FURO40TA4 PO (08:13)
[2018-04-07] MEDS ORDERED: METO5TAB6 PO (08:13)
== END 2018-06-22 | disposition home or self-care (01) ==
LOC: ONC 08:35
PROVIDERS: ATTEND Internal Medicine Hematology & Oncology
DX: D63.8 Anemia in other chronic diseases classified elsewhere (principal); E11.22 Type 2 diabetes mellitus with diabetic chronic kidney disease; N18.3 Chronic kidney disease, stage 3 (moderate); I12.9 Hypertensive chronic kidney disease with stage 1 through stage 4 chronic kidney disease, or unspecified chronic kidney disease; E11.40 Type 2 diabetes mellitus with diabetic neuropathy, unspecified; E78.5 Hyperlipidemia, unspecified; Z79.82 Long term (current) use of aspirin; Z79.899 Other long term (current) drug therapy
CPT/HCPCS: 36415; 80053; 85025; 85045; 99213

== ENCOUNTER 2018-03-27 13:24 | Inpatient (IN) | payer BC ==
[~2018-03-27] VITALS: Ht 180.3 cm; Wt 145.8 kg
[2018-03-27] MEDS ORDERED: FUROSEMIDE 40 MG/4 ML INJ (LASIX) IVP NR (13:45)
--- OUTSIDE RECORDS SUMMARY | 2018-03-27 14:18 | XMS REPORT | Clinical Summary ---
Author Author [facility] Organization [facility] Address Unknown Phone Unavailable Care Team Providers Care Grain Elevator Clerk Name Role Phone PCP Unavailable Source Comments Some departments are not documenting in the electronic medical record. If you do not see the information that you expected, contact Release of Information in the Health Information Management department at [phone] for further assistance in locating additional records.[facility] [...] Taken Blood Pressure 118/79 05/03/2016 1:44 PM FOREST LAW AND POLICY PROFESSOR Pulse 92 05/03/2016 1:44 PM FOREST LAW AND POLICY PROFESSOR Temperature - - Respiratory Rate - - Oxygen Saturation - - Inhaled Oxygen - - Concentration Weight 111.6 kg (246 lb) 05/03/2016 1:44 PM FOREST LAW AND POLICY PROFESSOR Height 180.3 cm (5' 11") 05/03/2016 1:44 PM FOREST LAW AND POLICY PROFESSOR Body Mass Index 34.31 05/03/2016 1:44 PM FOREST LAW AND POLICY PROFESSOR Plan of Treatment Health Maintenance Due Date Last Done Comments PHYSICAL (COMPREHENSIVE) 1973 EXAM PERTUSSIS VACCINE 1977 HIV SCREENING 1981 TETANUS VACCINE 1983 COLORECTAL CANCER 01/30/2016 SCREENING SHINGLES RECOMBINANT 01/30/2016 VACCINE (1 of 2) INFLUENZA VACCINE 01/11/2018 Results Not on filefrom Last 3 Months
--- NOTE | 2018-03-27 14:59 | Physical Therapy Progress Note ---
Therapy Progress Note Patient just admitted to room and declined PT at this time. PT to begin in [facility] PT Mar 27, 2018 14:59
--- NOTE | 2018-03-27 15:07 | Diagnostic Imaging Report ---
INDICATION: Dyspnea. TIME OF EXAMINATION: 02:29 p.m. COMPARISON: Correlation is made with prior study from 03/20/2018. FINDINGS: The heart size is stable. There is linear atelectasis in left midlung. There is central congestion but no overt failure. No significant effusion or pneumothorax is seen. There are postop changes in the lower cervical spine. IMPRESSION: Central congestion without evidence of overt failure. Dictated by: Dictated on workstation # [id number]
[2018-03-27 15:32] LABS: HEMOGLOBIN 8.2 G/DL (13.3-17.7); MEAN PLATELET VOLUME 10.5 FL (7.4-10.4); RED BLOOD COUNT 2.94 10^6/uL (4.35-5.85); RED CELL DISTRIBUTION WIDTH 15.1 % (10.0-14.5); WHITE BLOOD COUNT 8.4 10^3/uL (4.3-11.0)
[2018-03-27 15:39] VITALS: BP 144/71
[2018-03-27 15:48] LABS: ALBUMIN 3.8 GM/DL (3.2-4.5); BILIRUBIN,TOTAL 0.6 MG/DL (0.1-1.0); CALCIUM 8.9 MG/DL (8.5-10.1); CREATININE SERUM 2.08 MG/DL (0.60-1.30); POTASSIUM 4.8 MMOL/L (3.6-5.0); TOTAL PROTEIN 6.1 GM/DL (6.4-8.2)
[2018-03-27] MEDS ORDERED: PANT40TA3 PO (15:57)
[2018-03-27] MEDS ORDERED: FERR325T18 PO (15:57)
[2018-03-27] MEDS ORDERED: FURO40TA4 PO (15:57)
[2018-03-27] MEDS ORDERED: FURO20TA4 PO (15:57)
[2018-03-27] MEDS ORDERED: AMLO10TA6 PO (15:57)
[2018-03-27] MEDS ORDERED: HYDR-3923 PO (15:57)
[2018-03-27] MEDS ORDERED: METOLAZONE 5 MG (ZAROXOLYN) TAB PO NR (16:15)
[2018-03-27] MEDS ORDERED: FUROSEMIDE 40 MG/4 ML INJ (LASIX) IVP SCH (17:00)
[2018-03-27] MEDS: LORATADINE (CLARITIN) 10 MG TAB PO SCH (17:33)
[2018-03-27] MEDS: hydrALAZINE (APRESOLINE) 25 MG TAB PO SCH ×2 (17:33→21:22)
[2018-03-27] MEDS: FERROUS SULF 325 MG (IRON) TAB PO SCH (17:33)
[2018-03-27] MEDS: GABAPENTIN 600 MG (NEURONTIN) TAB PO SCH ×2 (17:36→21:22)
--- NOTE | 2018-03-27 18:39 | History & Physicial ---
History of Present Illness History of Present Illness Reason for visit/HPI Patient failed outpatient treatment. Patient has anasacara. Patient had cervical surgery. Since then patient gained 54 pounds of fluid. Patient has renal insufficiency. Patient has diabetes. Patient keeps on gaining weight. Legs thighs and scrotum and penis swollen now patient to have IV treatments. Patient can only get around with a walker now and go approximately 10 feet without shortness of breath. When patient left rehabilitation walk by himself use cane and walk 100 feet Date of Admission Mar 27, 2018 at 13:24 Time Seen by a Provider: 18:33 I consulted on this patient on 03/27/18 18:25 Attending Physician Leanna Perez MD Admitting Physician Yang Younger DO Consult Allergies and Home Medications Allergies Coded Allergies: tazobactam (Verified Allergy, Unknown, RASH, 02/10/18) Home Medications Amlodipine Besylate 10 Mg Tablet, 10 MG PO DAILY, (Reported) Aspirin 81 Mg Tablet.dr, 81 MG PO DAILY, (Reported) Ferrous Sulfate 325 Mg Tablet, 325 MG PO BID, (Reported) Fexofenadine HCl 180 Mg Tablet, 180 MG PO 1700, (Reported) Furosemide 20 Mg Tablet, 20 MG PO 1600, (Reported) Furosemide 40 Mg Tablet, 40 MG PO DAILY, (Reported) Gabapentin 300 Mg Capsule, 600 MG PO TID, (Reported) TAKES 2 (300 MG) CAPSULES Glimepiride 4 Mg Tablet, 4 MG PO DAILY, (Reported) Hydralazine HCl 25 Mg Tablet, 25 MG PO TID, (Reported) Metoprolol Tartrate 50 Mg Tablet, 50 MG PO BID, (Reported) Pantoprazole Sodium 40 Mg Tablet.dr, 40 MG PO DAILY, (Reported) Rosuvastatin Calcium 5 Mg Tablet, 5 MG PO HS, (Reported) Patient Home Medication List Home Medication List Reviewed: Yes Past Bfzlkds-Nmzvcm-Sfabfh Hx Patient Social History Marrital Status: Employed/Student: employed Alcohol Use: Denies Use Recreational Drug Use: No 2nd Hand Smoke Exposure: No Physical Abuse Screen: No Sexual Abuse: No Recent Foreign Travel: No Contact w/other who traveled: No Recent Hopitalizations: Yes (PNEUMONIA, SPINAL SURGERY) Immunizations Up To Date Tetanus Booster (TDap): Unknown Date of Pneumonia Vaccine: Jun 16, 2015 Date of Influenza Vaccine: Mar 20, 2018 Seasonal Allergies Seasonal Allergies: No Surgeries Yes (NASAL POLYPS REMOVED CHILD, heart cath x2,cystoscopy, ) Cardiac, Coronary Stent, Nose Respiratory Yes Pneumonia, Sleep Apnea Currently Using CPAP: Yes Currently Using BIPAP: No Cardiovascular Yes (PAD, stent placed in 06/30) Cardiomyopathy, Coronary Artery Disease, Hypertension, Irregular Heartbeat, Peripheral Vascular Neurological Yes (NEUROPATHY IN LEGS/ FEET) Neuropathy Reproductive System Hx Reproductive Disorders: Yes (E.D.) Sexually Transmitted Disease: No HIV/AIDS: No Genitourinary No Gastrointestinal Yes Chronic Diarrhea Musculoskeletal No Arthritis, Chronic Back Pain Endocrine History of Endocrine Disorders: Yes Endocrine Disorders: Diabetes, Non-Insulin dep HEENT History of HEENT Disorders: No (DIABETIC RETINOPATHY) Cancer No Psychosocial History of Psychiatric Problem: Yes Behavioral Health Disorders: Anxiety, Depression Integumentary History of Skin or Integumenta: No Blood Transfusions History of Blood Disorders: No Adverse Reaction to a Blood Tr: No Family Medical History Significant Family History: No Pertinent Family Hx, Hypertension Family Hx: Arthritis G8 BROTHER (knee replacement) Cardiovascular disease 19 FATHER (chf) Deafness or hearing loss 19 MOTHER (vertigo) Diabetes mellitus 19 MOTHER Prostate cancer 19 FATHER Review of Systems Constitutional: malaise, weakness EENTM: no symptoms reported Respiratory: short of breath Cardiovascular: no symptoms reported Gastrointestinal: no symptoms reported Genitourinary: other (Swelling of scrotum and penis) Physical Exam Vital Signs Vital Signs - First Documented 03/27/18 03/27/18 15:17 15:39 Temp 97.3 Pulse 75 Resp 20 B/P (MAP) 144/71 (95) Pulse Ox 91 O2 Delivery Nasal Cannula O2 Flow Rate 2.00 Capillary Refill : Height, Weight, BMI Height: 5'11.00" Weight: 315lbs. 11.2oz. [id number]; 42.8 BMI Method:Stated General Appearance: WD/WN, Obese Eyes: Bilateral Eye Normal Inspection HEENT: Normal ENT Inspection Neck: Normal Inspection Respiratory: No Accessory Muscle Use, No Respiratory Distress, Decreased Breath Sounds Cardiovascular: Regular Rate, Rhythm, No Murmur Gastrointestinal: Non Tender, Soft Assessment/Plan Assessment and Plan Anasarca. Diabetes. Renal insufficiency. Weight gain of. Coronary artery disease 54 Patient gained 54 pounds since cervical surgery. Short of breath Admission Diagnosis Admission Status: Inpatient Order (span 2 midnights) Reason for Inpatient Admission: Weight gain 54 pounds renal insufficiency diabetes. Short of breath. YANG Lazaro DO Mar 27, 2018 18:39
[2018-03-27] MEDS ORDERED: FUROSEMIDE 40 MG (LASIX) TAB PO NR (19:00)
[2018-03-27 20:43] VITALS: BP 139/66
[2018-03-27] MEDS: meTOprolol TARTRATE 50 MG (LOPRESSOR) TAB PO SCH (21:22)
[2018-03-27] MEDS: ROSUVASTATIN 5 MG (CRESTOR) TABLET PO SCH (21:22)
[2018-03-28 00:08] VITALS: BP 131/65
[2018-03-28 04:13] VITALS: BP 137/69
[2018-03-28 05:48] LABS: HEMOGLOBIN 7.6 G/DL (13.3-17.7); MEAN PLATELET VOLUME 10.7 FL (7.4-10.4); RED BLOOD COUNT 2.73 10^6/uL (4.35-5.85); RED CELL DISTRIBUTION WIDTH 15.1 % (10.0-14.5); WHITE BLOOD COUNT 6.4 10^3/uL (4.3-11.0)
[2018-03-28 06:09] LABS: ALBUMIN 3.5 GM/DL (3.2-4.5); BILIRUBIN,TOTAL 0.5 MG/DL (0.1-1.0); CALCIUM 8.8 MG/DL (8.5-10.1); CREATININE SERUM 2.1 MG/DL (0.60-1.30); POTASSIUM 4.1 MMOL/L (3.6-5.0); TOTAL PROTEIN 5.6 GM/DL (6.4-8.2)
[2018-03-28] MEDS: FERROUS SULF 325 MG (IRON) TAB PO SCH ×2 (06:10→16:53)
[2018-03-28] MEDS: hydrALAZINE (APRESOLINE) 25 MG TAB PO SCH ×3 (06:10→21:28)
[2018-03-28] MEDS: PANTOPRAZOLE 40 MG (PROTONIX) TAB PO SCH (06:10)
[2018-03-28] MEDS: GLIMEPIRIDE 4 MG (AMARYL) TAB PO SCH (06:10)
--- NOTE | 2018-03-28 07:28 | Progress Note (SOAP) ---
Subjective Time Seen by a Provider: 07:23 Subjective/Events-last exam Since yesterday moved his arm when had midline try to be put in. Patient to get IV access today area Patient resting comfortably today. Patient getting foreign half pounds since yesterday GFR 33. BNP 692. Hemoglobin 7.6 this morning yesterday 8.2. To get physical therapy involved. To monitor blood tests Objective Exam Vital Signs Date Time Temp Pulse Resp B/P (MAP) Pulse Ox O2 Delivery O2 Flow Rate FiO2 03/28/18 00:08 99.1 75 18 131/65 (87) 92 Nasal Cannula 2.00 03/27/18 23:28 92 NIV CPAP 03/27/18 21:00 92 NIV CPAP 2.00 03/27/18 20:43 98.4 80 20 139/66 (90) 96 Nasal Cannula 2.00 03/27/18 15:39 97.3 75 20 144/71 (95) 91 Nasal Cannula 2.00 03/27/18 15:17 Nasal Cannula 2.00 I & O 03/28/18 07:00 Intake Total 880 ml Output Total 2200 ml Balance -1320 ml Capillary Refill : General Appearance: No Apparent Distress, WD/WN, Obese HEENT: Normal ENT Inspection Neck: Normal Inspection Respiratory: Normal Breath Sounds, No Accessory Muscle Use, No Respiratory Distress Cardiovascular: Regular Rate, Rhythm, No Murmur Gastrointestinal: non tender, soft Extremity: Swelling Results Lab Laboratory Tests 03/27/18 15:25 03/28/18 05:20 Laboratory Tests 03/27/18 15:25: White Blood Count 8.4, Red Blood Count 2.94L, Hemoglobin 8.2L, Hematocrit 26L, Mean Corpuscular Volume 90, Mean Corpuscular Hemoglobin 28, Mean Corpuscular Hemoglobin Concent 31L, Red Cell Distribution Width 15.1H, Platelet Count 211, Mean Platelet Volume 10.5H, Sodium Level 142, Potassium Level 4.8, Chloride Level 107, Carbon Dioxide Level 23, Anion Gap 12, Blood Urea Nitrogen 71H, Creatinine 2.08H, Estimat Glomerular Filtration Rate 34, BUN/Creatinine Ratio 34 , Glucose Level 114H, Calcium Level 8.9, Corrected Calcium 9.1, Total Bilirubin 0.6, Aspartate Amino Transf (AST/SGOT) 12, Alanine Aminotransferase (ALT/SGPT) 19, Alkaline Phosphatase 97, B-Type Natriuretic Peptide 591.1H, Total Protein 6.1L, Albumin 3.8 03/28/18 05:20: White Blood Count 6.4, Red Blood Count 2.73L, Hemoglobin 7.6L, Hematocrit 25L, Mean Corpuscular Volume 91, Mean Corpuscular Hemoglobin 28, Mean Corpuscular Hemoglobin Concent 31L, Red Cell Distribution Width 15.1H, Platelet Count 207, Mean Platelet Volume 10.7H, Sodium Level 142, Potassium Level 4.1, Chloride Level 107, Carbon Dioxide Level 23, Anion Gap 12, Blood Urea Nitrogen 74H, Creatinine 2.10H, Estimat Glomerular Filtration Rate 33, BUN/Creatinine Ratio 35 , Glucose Level 161H, Calcium Level 8.8, Corrected Calcium 9.2, Total Bilirubin 0.5, Aspartate Amino Transf (AST/SGOT) 11, Alanine Aminotransferase (ALT/SGPT) 17, Alkaline Phosphatase 88, B-Type Natriuretic Peptide 692.9H, Total Protein 5.6L, Albumin 3.5, Triglycerides Level 86, Cholesterol Level 86, LDL Cholesterol Direct 44, VLDL Cholesterol 17, HDL Cholesterol 26L Assessment/Plan Assessment/Plan Assess & Plan/Chief Complaint Anasarca. Renal insufficiency. Anemia. Diabetes. 53 pound weight gain since cervical surgery. Shortness of breath Clinical Quality Measures Admission Status Admission Dx Anasarca. Diabetes. Renal insufficiency. Weight gain of. Coronary artery disease 54 Patient gained 54 pounds since cervical surgery. Short of breath MARIIA SIM DO Mar 28, 2018 07:28
--- NOTE | 2018-03-28 07:52 | Consultation-Cardiology ---
HPI-Cardiology Cardiology Consultation Date of Consultation 03/28/18 Date of Admission Time Seen by Provider: 07:45 Indication: Anasarca HPI 53 years old gentleman with history of chronic renal insufficiency, resistant hypertension. Was seen in my office yesterday and sent to the hospital for admission due to increasing weight gain, having significant edema, anasarca. Shortness of breath and fatigue, gained over 10 kg in the past week. Patient was admitted and started on aggressive diuretics. He still having significant edema and shortness of breath significant fatigue. Home Medications & Allergies Allergies: Coded Allergies: tazobactam (Verified Allergy, Unknown, RASH, 02/10/18) Home Medication List Reviewed: Yes AHZ-Pgasti-Dvzszv Hx Patient Social History Marital Status: Employed/Student: employed Alcohol Use: Denies Use Recreational Drug Use: No 2nd Hand Smoke Exposure: No Recent Foreign Travel: No Recent Infectious Disease Expo: No Recent Hopitalizations: Yes (PNEUMONIA, SPINAL SURGERY) Physical Abuse Screen: No Sexual Abuse: No Immunizations Up To Date Tetanus Booster (TDap): Unknown Date of Pneumonia Vaccine: Jun 16, 2015 Date of Influenza Vaccine: Mar 20, 2018 Past Medical History Past medical history was discussed below Family Medical History Significant Family History: No Pertinent Family Hx, Hypertension Family History: Arthritis G8 BROTHER (knee replacement) Cardiovascular disease 19 FATHER (chf) Deafness or hearing loss 19 MOTHER (vertigo) Diabetes mellitus 19 MOTHER Prostate cancer 19 FATHER Review of Systems Constitutional: see HPI, malaise, weakness EENTM: see HPI, no symptoms reported Respiratory: see HPI, dyspnea on exertion, orthopnea Cardiovascular: see HPI, edema Gastrointestinal: no symptoms reported, see HPI Genitourinary: no symptoms reported, see HPI Musculoskeletal: see HPI, joint pain, muscle stiffness, muscle weakness Skin: see HPI Psychiatric/Neurological: No Symptoms Reported, See HPI Reviewed Test Results Reviewed Test Results Lab Laboratory Tests Test 03/27/18 15:25 03/28/18 05:20 Range/Units White Blood Count 8.4 6.4 4.3-11.0 10^3/uL Red Blood Count 2.94 L 2.73 L 4.35-5.85 10^6/uL Hemoglobin 8.2 L 7.6 L 13.3-17.7 G/DL Hematocrit 26 L 25 L 40-54 % Mean Corpuscular Volume 90 91 80-99 FL Mean Corpuscular Hemoglobin 28 28 25-34 PG Mean Corpuscular Hemoglobin Concent 31 L 31 L 32-36 G/DL Red Cell Distribution Width 15.1 H 15.1 H 10.0-14.5 % Platelet Count 211 207 130-400 10^3/uL Mean Platelet Volume 10.5 H 10.7 H 7.4-10.4 FL Sodium Level 142 142 135-145 MMOL/L Potassium Level 4.8 4.1 3.6-5.0 MMOL/L Chloride Level 107 107 98-107 MMOL/L Carbon Dioxide Level 23 23 21-32 MMOL/L Anion Gap 12 12 5-14 MMOL/L Blood Urea Nitrogen 71 H 74 H 7-18 MG/DL Creatinine 2.08 H 2.10 H 0.60-1.30 MG/DL Estimat Glomerular Filtration Rate 34 33 BUN/Creatinine Ratio 34 35 Glucose Level 114 H 161 H 70-105 MG/DL Calcium Level 8.9 8.8 8.5-10.1 MG/DL Corrected Calcium 9.1 9.2 8.5-10.1 MG/DL Total Bilirubin 0.6 0.5 0.1-1.0 MG/DL Aspartate Amino Transf (AST/SGOT) 12 11 5-34 U/L Alanine Aminotransferase (ALT/SGPT) 19 17 0-55 U/L Alkaline Phosphatase 97 88 40-136 U/L B-Type Natriuretic Peptide 591.1 H 692.9 H <100.0 PG/ML Total Protein 6.1 L 5.6 L 6.4-8.2 GM/DL Albumin 3.8 3.5 3.2-4.5 GM/DL Triglycerides Level 86 <150 MG/DL Cholesterol Level 86 < 200 MG/DL LDL Cholesterol Direct 44 1-129 MG/DL VLDL Cholesterol 17 5-40 MG/DL HDL Cholesterol 26 L 40-60 MG/DL Physical Exam Vital Signs Vital Signs - First Documented 03/27/18 03/27/18 15:17 15:39 Temp 97.3 Pulse 75 Resp 20 B/P (MAP) 144/71 (95) Pulse Ox 91 O2 Delivery Nasal Cannula O2 Flow Rate 2.00 Capillary Refill : Height, Weight, BMI Height: 5'11.00" Weight: 340lbs. 2.0oz. 154.361196of; 46.7 BMI Method:Stated General Appearance: WD/WN, Mild Distress Eyes: Bilateral Eye Normal Inspection, Bilateral Eye PERRL, Bilateral Eye EOMI HEENT: PERRL/EOMI, TMs Normal, Normal ENT Inspection, Pharynx Normal Neck: Full Range of Motion, Normal Inspection, Non Tender, Supple, Carotid Bruit Respiratory: Chest Non Tender, Lungs Clear, Normal Breath Sounds, No Accessory Muscle Use, No Respiratory Distress Cardiovascular: Regular Rate, Rhythm, No Gallop, No JVD, No Murmur, Normal Peripheral Pulses Gastrointestinal: Normal Bowel Sounds, No Organomegaly, No Pulsatile Mass, Non Tender, Soft Back: Normal Inspection, No CVA Tenderness, No Vertebral Tenderness Extremity: Normal Capillary Refill, Normal Inspection, Normal Range of Motion, Non Tender, No Calf Tenderness, Pedal Edema, Other (Significant edema) Neurologic/Psychiatric: Alert, Oriented x3, No Motor/Sensory Deficits, Normal Mood/Affect Skin: Normal Color, Warm/Dry Lymphatic: No Adenopathy A/P-Cardiology Admission Diagnosis Anasarca Acute renal failure Anemia Coronary artery disease Assessment/Plan Anasarca, fluid overload. Secondary to noncompliance with diet and renal insufficiency. Started on diuretics, difficulty having IV access. Acute on chronic renal failure, diabetic nephropathy, continue to monitor renal function was. Had a long discussion about compliance with diet Anemia, continue to monitor H&H, followed by Dr. Bain as an outpatient Generalized weakness and loss of energy. PT were consulted Last echocardiogram was done in [facility] reporting normal LV function, patient had elevated BNP, a repeat 2-D echo History of coronary artery disease, history of mid LAD stenting using Alpine 3.0 18 mm done in June 2017, mild to moderate disease in the proximal portion of the LAD, moderate disease at the distal circumflex artery. Continue to monitor History of diabetes mellitus, diabetic neuropathy, followed and managed by primary care physician History of hyperlipidemia with intolerance to statin. Spinal stenosis, status post C3-7 ACDF with C5 corpectomy done by Dr. Hardwick History of carotid stenosis, last ultrasound was done in July 2017. Continue to monitor History of respiratory failure secondary to pneumonia. Improved. Continue to monitor Clinical Quality Measures DVT/VTE Risk/Contraindication: Contraindications-Pharm: Other *list below* Contraindications-Mechi: Other *list below* KAREN YANG MD Mar 28, 2018 07:52
[2018-03-28 08:00] VITALS: BP 137/73
[2018-03-28] MEDS: GABAPENTIN 600 MG (NEURONTIN) TAB PO SCH ×3 (10:04→21:28)
[2018-03-28] MEDS: METOLAZONE 5 MG (ZAROXOLYN) TAB PO SCH (10:04)
[2018-03-28] MEDS: meTOprolol TARTRATE 50 MG (LOPRESSOR) TAB PO SCH ×2 (10:04→21:28)
[2018-03-28] MEDS: amLODIPine 10 MG (NORVASC) TAB PO SCH (10:04)
[2018-03-28] MEDS: ASPIRIN E.C. 81 MG (ECOTRIN) TAB PO SCH (10:04)
[2018-03-28] MEDS ORDERED: FUROSEMIDE 40 MG (LASIX) TAB PO NR (11:00)
--- NOTE | 2018-03-28 11:13 | Physical Therapy Evaluation ---
PT Evaluation-General Medical Diagnosis Admission Date Mar 27, 2018 at 13:24 Medical Diagnosis: Anasarca Onset Date: Mar 27, 2018 Therapy Diagnosis Therapy Diagnosis: debility Height/Weight Height (Feet): 5 Height (Inches): 11.00 Weight (Pounds): 340 Weight (Ounces): 2.0 Precautions Precautions/Isolations: Standard Precautions Weight Bear Status Right Lower Extremity: Right Weight Bearing/Tolerated Left Lower Extremity: Left Weight Bearing/Tolerated Referral Physician: Ana Reason for Referral: Evaluation/Treatment Medical History Pertinent Medical History: Arthritis, CAD, DM, Heart Failure, HTN, Neuropathy, PVD Current History 54# wt. gain Reviewed History: Yes Social History Home: Single Level Current Living Status: Alone Prior/Core FIM Prior Level of Function Functional [place] Measure 0=Not Assessed/NA 4=Minimal Assistance 1=Total Assistance 5=Supervision or Setup 2=Maximal Assistance 6=Modified [place] 3=Moderate Assistance 7=Complete IndependenceIRFPAI Quality Coding Scale 6 Independent with activity with or without an assistive device 5 Patient requires set up or clean up by helper. Patient completes activity by themselves 4 Supervision or touching assist (CGA). [place] provide cues , steadying assist 3 The helper provides less than half the effort to complete the activity 2 The helper provides more than half the effort to complete the activity 1 Dependent. The helper does all the effort to complete an activity 7 Patient refused to complete or attempt activity 9 The patient did not perform the activity before the current illness or injury 88 Not attempted due to Medical conditions or safety concerns Bed Mobility: 6 Transfers (B,C,W/C) (FIM): 6 Gait: 6 PT Evaluation-Current Subjective Patient reluctantly agrees to PT. Pain Numeric Pain Scale: 0-No Pain Location: No Pain Reported Objective Patient Orientation: Normal For Age Problem Solving: Fair ROM/Strength ROM Lower Extremities bilateral LE limited due to edema Strength Lower Extremities 4/5 grossly bilaterally Integumentary/Posture Integumentary refer to nursing notes Bowel Incontinence: No Bladder Incontinence: No Posture WFL Neuromuscular (Tone, Coordination, Reflexes) grossly intact Sensory Vision: Functional Hearing: Functional Sensation Right Lower Extremit: Impaired Sensation Left Lower Extremity: Impaired Transfers Functional [place] Measure 0=Not Assessed/NA 4=Minimal Assistance 1=Total Assistance 5=Supervision or Setup 2=Maximal Assistance 6=Modified [place] 3=Moderate Assistance 7=Complete [place] Transfers (B, C, W/C) (FIM): 5 Scootin Rollin Supine to/from Sit: 5 Sit to/from Stand: 5 Gait Mode of Locomotion: Walk Anticipated Mode of Locomotion: Walk Gait (FIM): 5 Distance (FIM): 3=150 ft Distance: 150' Gait Level of Assist: 5 Gait Assistive Device: FWW Comments/Gait Description slow, frequent standing recovery periods Balance Sitting Static: Normal Sitting Dynamic: Normal Standing Static: Normal Standing Dynamic: Normal Assessment/Needs 53 y.o. male, will be seen short term by skilled PT to address functional mobility to improve current LOF and to safely return to home at maximum LOF. Rehab Potential: Fair Post Rehab Potential-Barriers: compliance PT Alf Goals Rotary Planer Set Up Operator Goals PT Rotary Planer Set Up Operator Goals Time Frame: Apr 07, 2018 Transfers (B,C,W/C) (FIM): 6 Gait (FIM): 6 Gait distance (FIM): 3=150 ft Distance: 200' Gait Level of Assist: 6 Gait Assistive Device: FWW PT Plan Problem List Problem List: Activity Tolerance, Safety, Balance, Gait, Transfer, Bed Mobility Treatment/Plan Treatment Plan: Continue Plan of Care Treatment Plan: Bed Mobility, Education, Functional Activity Cody, Functional Strength, Gait, Safety, Therapeutic Exercise, Transfers Treatment Duration: Apr 07, 2018 Frequency: 6 times per week Estimated Hrs Per Day: .25 hour per day Patient and/or Family Agrees t: Yes Time/GCodes Time In: 905 Time Out: 918 Total Billed Treatment Time: 13 Total Billed Treatment 1 visit EVLowC 13 min G Codes Necessary: No MARK RAMIREZ PT Mar 28, 2018 11:13
[2018-03-28] MEDS: inSUlin ASPART (NovoLOG) 1 UNIT/0.01 ML (CHARGE PER UNIT) SC SCH ×3 (11:50→21:43)
[2018-03-28 12:00] VITALS: BP 129/63
--- NOTE | 2018-03-28 12:58 | Progress Note-Standard ---
Standard Progress Note Progress Notes/Assess & Plan Date Seen by a Provider: Mar 28, 2018 Time Seen by a Provider: 09:00 Progress/Assessment & Plan I have been asked to see him to address this poor IV access. It is reasonable that a long-term access in the form of an Flexlr-w-Xuhy be placed. Several attempts for IV axis have been unsuccessful and he is uncomfortable to tolerate further attempts. The details of the procedure have been discussed with him and I have made the necessary arrangements with the anesthesia providers.Surgery scheduled for Tuesday the 29 of March Final Diagnosis poor venous access. MALDONADO GUAMAN MD Mar 28, 2018 12:58
[2018-03-28 16:45] VITALS: BP 137/65
[2018-03-28] MEDS: LORATADINE (CLARITIN) 10 MG TAB PO SCH (16:53)
[2018-03-28] MEDS: FUROSEMIDE 40 MG (LASIX) TAB PO SCH (16:53)
[2018-03-28 19:53] VITALS: BP 136/71
[2018-03-28] MEDS: ROSUVASTATIN 5 MG (CRESTOR) TABLET PO SCH (21:28)
[2018-03-29] VITALS (7 sets, daily range): BP systolic 128–151; BP diastolic 61–77
[2018-03-29] MEDS: inSUlin ASPART (NovoLOG) 1 UNIT/0.01 ML (CHARGE PER UNIT) SC SCH ×4 (05:45→21:17)
[2018-03-29 06:05] LABS: HEMOGLOBIN 7.9 G/DL (13.3-17.7); MEAN PLATELET VOLUME 10.7 FL (7.4-10.4); RED BLOOD COUNT 2.75 10^6/uL (4.35-5.85); RED CELL DISTRIBUTION WIDTH 14.9 % (10.0-14.5); WHITE BLOOD COUNT 7.2 10^3/uL (4.3-11.0)
[2018-03-29] MEDS: hydrALAZINE (APRESOLINE) 25 MG TAB PO SCH ×3 (06:20→22:24)
[2018-03-29] MEDS: PANTOPRAZOLE 40 MG (PROTONIX) TAB PO SCH (06:20)
[2018-03-29 06:27] LABS: CALCIUM 8.8 MG/DL (8.5-10.1); CREATININE SERUM 2.12 MG/DL (0.60-1.30); MAGNESIUM 2.4 MG/DL (1.8-2.4)
--- NOTE | 2018-03-29 08:04 | Progress Note (SOAP) ---
Subjective Time Seen by a Provider: 08:01 Subjective/Events-last exam Patient has poor IV access. Patient given the option of a poor today. Patient states he will do it wants but wants to speak anesthesiology. First. Patient white stable today. Patient needs IV Lasix and metolazone Objective Exam Vital Signs Date Time Temp Pulse Resp B/P (MAP) Pulse Ox O2 Delivery O2 Flow Rate FiO2 03/29/18 04:00 99.0 76 17 133/63 (86) 91 NIV CPAP 03/29/18 00:30 92 Room Air 03/29/18 00:00 96.9 76 14 128/61 (83) 90 Room Air 03/28/18 21:30 2.00 03/28/18 21:00 92 Nasal Cannula 2.00 03/28/18 19:53 96.2 76 16 136/71 (92) 92 Room Air 03/28/18 16:45 98.6 76 20 137/65 (89) 90 Room Air 03/28/18 12:00 98.4 76 18 129/63 (85) 90 Room Air 03/28/18 09:00 92 NIV CPAP 2.00 I & O 03/29/18 07:00 Intake Total 1790 ml Output Total 3000 ml Balance -1210 ml Capillary Refill : General Appearance: No Apparent Distress, WD/WN HEENT: Normal ENT Inspection Neck: Normal Inspection, Non Tender Respiratory: Normal Breath Sounds, No Accessory Muscle Use, No Respiratory Distress Cardiovascular: Regular Rate, Rhythm, No Murmur Results Lab Laboratory Tests 03/29/18 05:23 Laboratory Tests 03/28/18 10:54: Glucometer 174H 03/28/18 16:37: Glucometer 203H 03/28/18 21:37: Glucometer 217H 03/29/18 05:23: White Blood Count 7.2, Red Blood Count 2.75L, Hemoglobin 7.9L, Hematocrit 25L, Mean Corpuscular Volume 90, Mean Corpuscular Hemoglobin 29, Mean Corpuscular Hemoglobin Concent 32, Red Cell Distribution Width 14.9H, Platelet Count 199, Mean Platelet Volume 10.7H, Sodium Level 142, Potassium Level 4.0, Chloride Level 105, Carbon Dioxide Level 24, Anion Gap 13, Blood Urea Nitrogen 72H, Creatinine 2.12H, Estimat Glomerular Filtration Rate 33, BUN/Creatinine Ratio 34 , Glucose Level 147H, Calcium Level 8.8, Magnesium Level 2.4 03/29/18 05:34: Glucometer 158H Assessment/Plan Assessment/Plan Assess & Plan/Chief Complaint Anasarca. Renal insufficiency. Anemia. Diabetes. 53 pound weight gain since cervical surgery. Shortness of breath. . 03/29/18. Anasarca. Renal insufficiency. Anemia Diabetes. Shortness of breath. Patient to have a port put in today Clinical Quality Measures Admission Status Admission Dx Anasarca. Diabetes. Renal insufficiency. Weight gain of. Coronary artery disease 54 Patient gained 54 pounds since cervical surgery. Short of breath DVT/VTE Risk/Contraindication: Contraindications-Pharm: Other *list below* Contraindications-Mechi: Other *list below* MARIIA SIM DO Mar 29, 2018 08:04
--- NOTE | 2018-03-29 08:36 | Cardiology Progress Note ---
Subjective Date Seen by Provider: Mar 29, 2018 Time Seen by Provider: 08:33 Subjective/Events-last exam Patient is in bed, continues to c/o edema. Denies CP or dyspnea. Scheduled for port placement later today secondary to poor venous access. Review of Systems General: No Night Sweats, No Fatigue, No Malaise HEENT: No Visual Changes, No Dysphasia, No Sore Throat Pulmonary: Dyspnea; No Cough, No Pleuritic Chest Pain Cardiovascular: Edema; No: Chest Pain, Palpitations, Paroxysmal Noc. Dyspnea Gastrointestinal: No: Nausea, Vomiting, Abdominal Pain Genitourinary: No Dysuria, No Frequency Musculoskeletal: No: neck pain, back pain Neurological: No: Weakness, Numbness, Change in speech, Confusion Objective-Cardiology Exam Last Set of Vital Signs Vital Signs 03/28/18 03/29/18 21:30 04:00 Temp 99.0 Pulse 76 Resp 17 B/P (MAP) 133/63 (86) Pulse Ox 91 O2 Delivery NIV CPAP O2 Flow Rate 2.00 Capillary Refill : I&O Intake and Output 03/29/18 00:00 Intake Total 1990 ml Output Total 3675 ml Balance -1685 ml Intake Oral 1990 ml Output Urine Total 3675 ml General: Alert, Oriented X3, Cooperative HEENT: Atraumatic, PERRLA Neck: Supple, No JVD, No Thyromegaly Lungs: Clear to Auscultation, Normal Air Movement Heart: Regular Rate, Normal S1, Normal S2, No Murmurs Abdomen: Normal Bowel Sounds, Soft, No Tenderness, No Hepatosplenomegaly, No Masses Extremities: No Clubbing, No Cyanosis, Normal Pulses, No Tenderness/Swelling, Other (+2-3 pitting edema) Skin: No Rashes, No Breakdown, No Significant Lesion Neuro: Normal Speech, Cranial Nerves 3-12 NL Psych/Mental Status: Mental Status NL, Mood NL Results Lab Laboratory Tests 03/29/18 05:23 A/P-Cardiology Admission Diagnosis Anasarca Acute renal failure Anemia Coronary artery disease Assessment/Plan Anasarca, fluid overload. Secondary to noncompliance with diet and renal insufficiency. Started on diuretics, difficulty having IV access, planning for port placement later today. Acute on chronic renal failure, diabetic nephropathy, continue to monitor renal function was. Had a long discussion about compliance with diet Anemia, continue to monitor H&H, followed by Dr. Bain as an outpatient Generalized weakness and loss of energy. PT were consulted Last echocardiogram was done in [facility] reporting normal LV function, patient had elevated BNP, repeat 2-D echo History of coronary artery disease, history of mid LAD stenting using Alpine 3.0 18 mm done in June 2017, mild to moderate disease in the proximal portion of the LAD, moderate disease at the distal circumflex artery. Continue to monitor History of diabetes mellitus, diabetic neuropathy, followed and managed by primary care physician History of hyperlipidemia with intolerance to statin. Spinal stenosis, status post C3-7 ACDF with C5 corpectomy done by Dr. Hardwick History of carotid stenosis, last ultrasound was done in July 2017. Continue to monitor History of respiratory failure secondary to pneumonia. Improved. Continue to monitor Clinical Quality Measures DVT/VTE Risk/Contraindication: Contraindications-Pharm: Other *list below* Contraindications-Mechi: Other *list below* CLAY SOMERS Mar 29, 2018 08:36
[2018-03-29] MEDS: GLIMEPIRIDE 4 MG (AMARYL) TAB PO SCH (08:40)
[2018-03-29] MEDS: meTOprolol TARTRATE 50 MG (LOPRESSOR) TAB PO SCH ×2 (08:40→19:49)
[2018-03-29] MEDS: FUROSEMIDE 40 MG (LASIX) TAB PO SCH ×2 (08:40→17:32)
[2018-03-29] MEDS: METOLAZONE 5 MG (ZAROXOLYN) TAB PO SCH (08:41)
[2018-03-29] MEDS: ASPIRIN E.C. 81 MG (ECOTRIN) TAB PO SCH (08:41)
[2018-03-29] MEDS: amLODIPine 10 MG (NORVASC) TAB PO SCH (08:41)
[2018-03-29] MEDS: GABAPENTIN 600 MG (NEURONTIN) TAB PO SCH ×3 (08:41→19:49)
[2018-03-29] MEDS: FERROUS SULF 325 MG (IRON) TAB PO SCH ×2 (08:41→17:32)
--- NOTE | 2018-03-29 10:16 | Physical Therapy Progress Note ---
Therapy Progress Note Pt declines PT due to fatigue and cannot eat at this point because NPO for Port placement later today. Pt states he needs to eat before he would be able to see PT. Pt explains he has already been completing Supine Ex in bed since he remembered from previous hospital visit. Pt declines today but will see PT tomorrow for continued tx. 1, no tx rendered HILARY ALVAREZ BLUEPRINT CUTTER Mar 29, 2018 10:16
[2018-03-29] MEDS ORDERED: LIDOCAINE PF 2% 5 ML (XYLOCAINE) VIAL ONE (12:14)
[2018-03-29] MEDS ORDERED: fentaNYL INJECTION 100 MCG/2 ML AMP ONE (12:18)
[2018-03-29] MEDS ORDERED: MIDAZOLAM 2 MG/2 ML (VERSED) VIAL ONE (12:18)
[2018-03-29] MEDS ORDERED: SEVOFLURANE (ULTANE) 15 ML INHAL SOLN ONE ×4 (12:20→14:35)
[2018-03-29] MEDS ORDERED: proPOfol 200 MG/20 ML (DIPRIVAN) VIAL IV ONE (12:20)
[2018-03-29] MEDS ORDERED: ONDANSETRON 4 MG/2 ML (SDV) Z0FRAN ONE (12:20)
--- NOTE | 2018-03-29 13:09 | Cardiology Progress Note ---
Subjective Date Seen by Provider: Mar 29, 2018 Time Seen by Provider: 13:06 Subjective/Events-last exam Patient is laying down in bed, feeling slightly better, still having significant edema but overall there is some improvement. Scheduled for port placement. Review of Systems General: No Chills, No Night Sweats, No Fatigue, No Malaise, No Appetite, No Other HEENT: No Head Aches, No Visual Changes, No Eye Pain, No Ear Pain, No Dysphasia , No Sinus Congestion, No Post Nasal Drip, No Sore Throat, No Other Pulmonary: Dyspnea; No Cough, No Pleuritic Chest Pain, No Other Cardiovascular: Edema; No: Chest Pain, Palpitations, Orthopnea, Paroxysmal Noc. Dyspnea, Lt Headedness, Other Objective-Cardiology Exam Last Set of Vital Signs Vital Signs 03/29/18 03/29/18 08:00 09:00 Temp 99.2 Pulse 78 Resp 20 B/P (MAP) 151/73 (99) Pulse Ox 92 O2 Delivery Nasal Cannula O2 Flow Rate 2.00 Capillary Refill : I&O Intake and Output 03/29/18 00:00 Intake Total 1990 ml Output Total 3675 ml Balance -1685 ml Intake Oral 1990 ml Output Urine Total 3675 ml General: Alert, Oriented X3, Cooperative HEENT: Atraumatic, PERRLA Neck: Supple, No JVD, No Thyromegaly Lungs: Clear to Auscultation, Normal Air Movement Heart: Regular Rate, Normal S1, Normal S2, No Murmurs Abdomen: Normal Bowel Sounds, Soft, No Tenderness, No Hepatosplenomegaly, No Masses Extremities: No Clubbing, No Cyanosis, Normal Pulses, No Tenderness/Swelling, Other (+2-3 pitting edema) Skin: No Rashes, No Breakdown, No Significant Lesion Neuro: Normal Speech, Cranial Nerves 3-12 NL Psych/Mental Status: Mental Status NL, Mood NL Results Lab Laboratory Tests 03/29/18 05:23 A/P-Cardiology Admission Diagnosis Anasarca Acute renal failure Anemia Coronary artery disease Assessment/Plan Anasarca, fluid overload. Secondary to noncompliance with diet and renal insufficiency, responding to diuretics, continue to monitor closely Acute on chronic renal failure, diabetic nephropathy, continue to monitor renal function Anemia, continue to monitor H&H, followed by Dr. Bain as an outpatient Generalized weakness and loss of energy. PT were consulted Congestive heart failure, acute left ventricular systolic dysfunction, echocardiogram showed ejection fraction 45-50 percent, grade 2 diastolic dysfunction, dilated left atrium measuring 6.1 cm. Pulmonary hypertension with PA pressure of 35 mmHg. History of coronary artery disease, history of mid LAD stenting using Alpine 3.0 18 mm done in June 2017, mild to moderate disease in the proximal portion of the LAD, moderate disease at the distal circumflex artery. I will consider repeating his stress test History of diabetes mellitus, diabetic neuropathy, followed and managed by primary care physician History of hyperlipidemia with intolerance to statin. Spinal stenosis, status post C3-7 ACDF with C5 corpectomy done by Dr. Hardwick History of carotid stenosis, last ultrasound was done in July 2017. Continue to monitor History of respiratory failure secondary to pneumonia. Improved. Continue to monitor Clinical Quality Measures DVT/VTE Risk/Contraindication: Contraindications-Pharm: Other *list below* Contraindications-Mechi: Other *list below* KAREN YANG MD Mar 29, 2018 1:09 pm
[2018-03-29] MEDS ORDERED: 0.9% SODIUM CHLORIDE PF INJ 20 ML VIAL ONE (13:12)
[2018-03-29] MEDS ORDERED: HEParin (CENTRAL IV FLUSH) 500 UNIT/5 ML SYR ONE (13:12)
[2018-03-29] MEDS ORDERED: BUP/EPI 0.5% 1:200,000 (SENSORCAINE) 30 ML VIAL ONE (13:12)
[2018-03-29] MEDS ORDERED: FAMOTIDINE 20MG/2ML IV (PEPCID) ONE (13:28)
[2018-03-29] MEDS ORDERED: CLINDAMYCIN 900 MG/50 ML IVPB 50 ML IV ONE ×2 (13:33→13:45)
[2018-03-29] MEDS ORDERED: LACTATED RINGERS 1,000 ML IV PRN (13:46)
--- NOTE | 2018-03-29 15:46 | Diagnostic Imaging Report ---
INDICATION: Fluoroscopy during Groshong catheter placement. FINDINGS: Fluoroscopy was provided in the OR during Groshong catheter placement. 127 seconds of fluoroscopy was utilized. Images demonstrate a right-sided catheter tip overlying the SVC right atrial junction. IMPRESSION: Fluoroscopy during Groshong catheter placement. Dictated by: Dictated on workstation # [id number]
--- NOTE | 2018-03-29 16:15 | Operative Report ---
Operative Report Date of Procedure/Surgery Mar 29, 2018 Surgeon (s) MALDONADO GUAMAN MD Calciminer (s): King Cristina ( Med Student III) Post-Operative Diagnosis Same Procedure Performed Exsszi-l-Ejwo placement Description of Procedure Anesthesia Type: General Estimated blood loss (mL): Minimal Specimen(s) collected/removed None Description of the Procedure Indication for the procedure: This gentleman has renal insufficiency presented with anasarca. Due to poor venous access, placing an Zqdkia-a-Wojz was felt to be reasonable. Informed consent was obtained after reviewing the details of the procedure and complications of bacteremia, infection of the device itself and malfunction of the catheter requiring replacement. Description of the procedure: He was placed supine on the operative table and general anesthesia induced. IV antibiotics were administered as prophylaxis against wound infection. Neck and upper chest were prepared and draped in the usual sterile manner. Right internal jugular vein was localized using a 10 MHz ultrasound probe and a floppy guidewire introduced into the heart, under fluoroscopy. A subcutaneous pocket was created for the infraclavicular fossa and the Jessee catheter brought into the neck, in a retrograde fashion. It was then advanced into the heart, under fluoroscopy, using the peel-away sheath. The catheter was then pulled back to the superior vena cava, under fluoroscopy and connected to the Exnmua-g-Pskp, that had been primed with heparinized saline. I was able to aspirate and flush the system without any difficulty. The port was then secured to the pectoralis tissue using 2-0 Prolene sutures. The incision was then closed using 3-0 Vicryl for the dermal layer and 4-0 Vicryl for skin, in a subcuticular fashion. Preemptive analgesia was established using 0.5 percent Marcaine with epinephrine. The port was accessed at the end of the operation. He tolerated the procedure well, was extubated in the operating room and taken to the recovery room in a stable condition. Findings of the Procedure See operative report Allergies and Home Medications Allergies Coded Allergies: tazobactam (Verified Allergy, Unknown, RASH, 02/10/18) Home Medications Amlodipine Besylate 10 Mg Tablet, 10 MG PO DAILY, (Reported) Aspirin 81 Mg Tablet.dr, 81 MG PO DAILY, (Reported) Ferrous Sulfate 325 Mg Tablet, 325 MG PO BID, (Reported) Fexofenadine HCl 180 Mg Tablet, 180 MG PO 1700, (Reported) Furosemide 20 Mg Tablet, 20 MG PO 1600, (Reported) Furosemide 40 Mg Tablet, 40 MG PO DAILY, (Reported) Gabapentin 300 Mg Capsule, 600 MG PO TID, (Reported) TAKES 2 (300 MG) CAPSULES Glimepiride 4 Mg Tablet, 4 MG PO DAILY, (Reported) Hydralazine HCl 25 Mg Tablet, 25 MG PO TID, (Reported) Metoprolol Tartrate 50 Mg Tablet, 50 MG PO BID, (Reported) Pantoprazole Sodium 40 Mg Tablet.dr, 40 MG PO DAILY, (Reported) Rosuvastatin Calcium 5 Mg Tablet, 5 MG PO HS, (Reported) Patient Home Medication List Home Medication List Reviewed: Yes MALDONADO GUAMAN MD Mar 29, 2018 16:15
[2018-03-29] MEDS: LORATADINE (CLARITIN) 10 MG TAB PO SCH (17:32)
[2018-03-29] MEDS: ROSUVASTATIN 5 MG (CRESTOR) TABLET PO SCH (19:49)
[2018-03-29] MEDS: HYDROcodone/APAP 5 MG/325 MG (LORTAB) TAB PO PRN (20:26)
[2018-03-30] MEDS: HYDROcodone/APAP 5 MG/325 MG (LORTAB) TAB PO PRN ×3 (01:19→21:32)
[2018-03-30 04:30] VITALS: BP 121/66
[2018-03-30] MEDS: inSUlin ASPART (NovoLOG) 1 UNIT/0.01 ML (CHARGE PER UNIT) SC SCH ×4 (06:05→21:28)
[2018-03-30] MEDS: PANTOPRAZOLE 40 MG (PROTONIX) TAB PO SCH (06:18)
[2018-03-30] MEDS: FERROUS SULF 325 MG (IRON) TAB PO SCH ×2 (06:18→18:17)
[2018-03-30] MEDS: hydrALAZINE (APRESOLINE) 25 MG TAB PO SCH ×3 (06:18→21:28)
[2018-03-30] MEDS: GLIMEPIRIDE 4 MG (AMARYL) TAB PO SCH (06:19)
[2018-03-30] MEDS: FUROSEMIDE 40 MG (LASIX) TAB PO SCH (06:19)
--- NOTE | 2018-03-30 07:35 | Progress Note (SOAP) ---
Subjective Time Seen by a Provider: 07:33 Subjective/Events-last exam Patient had poor put in yesterday. Patient lost 4 pounds. Patient receive IV Lasix. Patient has no complaints this morning except for some pain Objective Exam Vital Signs Date Time Temp Pulse Resp B/P (MAP) Pulse Ox O2 Delivery O2 Flow Rate FiO2 03/30/18 04:30 96.3 65 20 121/66 (84) 98 Nasal Cannula 2.00 03/29/18 23:54 97.0 65 20 137/71 (93) 96 Nasal Cannula 2.00 03/29/18 20:56 Nasal Cannula 2.00 03/29/18 20:29 2.00 03/29/18 20:13 97.1 75 18 136/77 (96) 95 Nasal Cannula 2.00 03/29/18 16:12 97.5 74 16 142/68 (92) 92 NIV CPAP 10.00 03/29/18 12:00 98.8 65 16 143/74 (97) 93 Nasal Cannula 2.00 03/29/18 09:00 2.00 03/29/18 09:00 92 Nasal Cannula 2.00 03/29/18 08:00 99.2 78 20 151/73 (99) 93 Nasal Cannula 2.00 I & O 03/30/18 07:00 Intake Total 1200 ml Output Total 3275 ml Balance -2075 ml Capillary Refill : General Appearance: No Apparent Distress, WD/WN HEENT: Normal ENT Inspection Neck: Full Range of Motion, Normal Inspection Respiratory: Lungs Clear, No Accessory Muscle Use, No Respiratory Distress Cardiovascular: Regular Rate, Rhythm, No Murmur Gastrointestinal: non tender, soft Results Lab Laboratory Tests 03/29/18 12:14: Glucometer 138H 03/29/18 17:12: Glucometer 139H 03/29/18 21:06: Glucometer 262H 03/30/18 05:04: Glucometer 147H Assessment/Plan Assessment/Plan Assess & Plan/Chief Complaint Anasarca. Renal insufficiency. Anemia. Diabetes. 53 pound weight gain since cervical surgery. Shortness of breath. . 03/29/18. Anasarca. Renal insufficiency. Anemia Diabetes. Shortness of breath. Patient to have a port put in today. . 03/30/18. Anasarca. Renal failure. Anemia. CAD. Diabetes. Hyperlipidemia. Clinical Quality Measures Admission Status Admission Dx Anasarca. Diabetes. Renal insufficiency. Weight gain of. Coronary artery disease 54 Patient gained 54 pounds since cervical surgery. Short of breath DVT/VTE Risk/Contraindication: Contraindications-Pharm: Other *list below* Contraindications-Mechi: Other *list below* MARIIA SIM DO Mar 30, 2018 07:35
--- NOTE | 2018-03-30 07:51 | Cardiology Progress Note ---
Subjective Date Seen by Provider: Mar 30, 2018 Time Seen by Provider: 07:50 Subjective/Events-last exam Patient is laying down in bed, feeling slightly better, still having generalized weakness and edema. Review of Systems General: No Chills, No Night Sweats, No Fatigue, No Malaise, No Appetite, No Other HEENT: No Head Aches, No Visual Changes, No Eye Pain, No Ear Pain, No Dysphasia , No Sinus Congestion, No Post Nasal Drip, No Sore Throat, No Other Pulmonary: Dyspnea; No Cough, No Pleuritic Chest Pain, No Other Cardiovascular: Edema; No: Chest Pain, Palpitations, Orthopnea, Paroxysmal Noc. Dyspnea, Lt Headedness, Other Objective-Cardiology Exam Last Set of Vital Signs Vital Signs 03/30/18 04:30 Temp 96.3 Pulse 65 Resp 20 B/P (MAP) 121/66 (84) Pulse Ox 98 O2 Delivery Nasal Cannula O2 Flow Rate 2.00 Capillary Refill : I&O Intake and Output 03/30/18 00:00 Intake Total 900 ml Output Total 3350 ml Balance -2450 ml Intake Oral 850 ml IV Total 50 ml Output Urine Total 3300 ml Estimated Blood Loss 50 ml # Bowel Movements 1 General: Alert, Oriented X3, Cooperative HEENT: Atraumatic, PERRLA Neck: Supple, No JVD, No Thyromegaly Lungs: Clear to Auscultation, Normal Air Movement Heart: Regular Rate, Normal S1, Normal S2, No Murmurs Abdomen: Normal Bowel Sounds, Soft, No Tenderness, No Hepatosplenomegaly, No Masses Extremities: No Clubbing, No Cyanosis, Normal Pulses, No Tenderness/Swelling, Other (+2-3 pitting edema) Skin: No Rashes, No Breakdown, No Significant Lesion Neuro: Normal Speech, Cranial Nerves 3-12 NL Psych/Mental Status: Mental Status NL, Mood NL Results Lab Laboratory Tests Test 03/29/18 12:14 03/29/18 17:12 03/29/18 21:06 03/30/18 05:04 Range/Units Glucometer 138 H 139 H 262 H 147 H 70-110 MG/DL A/P-Cardiology Admission Diagnosis Anasarca Acute renal failure Anemia Coronary artery disease Assessment/Plan Anasarca, fluid overload. Secondary to noncompliance with diet and renal insufficiency, difficult IV access status post port placement, I will change Lasix to IV, continue Zaroxolyn for one more day and evaluate his tolerance and response. Acute on chronic renal failure, diabetic nephropathy, continue to monitor renal function Anemia, continue to monitor H&H, followed by Dr. Bain as an outpatient Generalized weakness and loss of energy. PT were consulted Congestive heart failure, acute left ventricular systolic dysfunction, echocardiogram showed ejection fraction 45-50 percent, grade 2 diastolic dysfunction, dilated left atrium measuring 6.1 cm. Pulmonary hypertension with PA pressure of 35 mmHg. History of coronary artery disease, history of mid LAD stenting using Alpine 3.0 18 mm done in June 2017, mild to moderate disease in the proximal portion of the LAD, moderate disease at the distal circumflex artery. I will consider repeating his stress test History of diabetes mellitus, diabetic neuropathy, followed and managed by primary care physician History of hyperlipidemia with intolerance to statin. Spinal stenosis, status post C3-7 ACDF with C5 corpectomy done by Dr. Hardwick History of carotid stenosis, last ultrasound was done in July 2017. Continue to monitor History of respiratory failure secondary to pneumonia. Was managed by Dr. Gao previously, will consult Dr. Gao for evaluation Clinical Quality Measures DVT/VTE Risk/Contraindication: Contraindications-Pharm: Other *list below* Contraindications-Mechi: Other *list below* KAREN YANG MD Mar 30, 2018 07:51
[2018-03-30 08:00] VITALS: BP 146/70
[2018-03-30 08:08] LABS: HEMOGLOBIN 8.1 G/DL (13.3-17.7); RED BLOOD COUNT 2.89 10^6/uL (4.35-5.85); WHITE BLOOD COUNT 7.3 10^3/uL (4.3-11.0)
[2018-03-30] MEDS: METOLAZONE 5 MG (ZAROXOLYN) TAB PO SCH (08:18)
[2018-03-30] MEDS: GABAPENTIN 600 MG (NEURONTIN) TAB PO SCH ×3 (08:19→21:27)
[2018-03-30] MEDS: amLODIPine 10 MG (NORVASC) TAB PO SCH (08:19)
[2018-03-30] MEDS: ASPIRIN E.C. 81 MG (ECOTRIN) TAB PO SCH (08:19)
[2018-03-30] MEDS: meTOprolol TARTRATE 50 MG (LOPRESSOR) TAB PO SCH ×2 (08:19→21:26)
[2018-03-30] MEDS: MICONAZOLE 2% POWDER (DESENEX AF) 90 GM TOP SCH ×2 (08:20→21:28)
[2018-03-30 08:22] LABS: CALCIUM 8.7 MG/DL (8.5-10.1); CREATININE SERUM 2.23 MG/DL (0.60-1.30); POTASSIUM 4.1 MMOL/L (3.6-5.0)
[2018-03-30] MEDS ORDERED: FUROSEMIDE 40 MG/4 ML INJ (LASIX) IVP SCH (08:24)
--- NOTE | 2018-03-30 09:35 | Physical Therapy Daily Note ---
PT Daily Note-Current Subjective Agreeable to PT. Reports he feels a bit nauseated today. Mental Status Patient Orientation: Person, Place, Time, Situation Transfers Functional [place] Measure 0=Not Assessed/NA 4=Minimal Assistance 1=Total Assistance 5=Supervision or Setup 2=Maximal Assistance 6=Modified [place] 3=Moderate Assistance 7=Complete IndependenceIRFPAI Quality Coding Scale 6 Independent with activity with or without an assistive device 5 Patient requires set up or clean up by helper. Patient completes activity by themselves 4 Supervision or touching assist (CGA). [place] provide cues , steadying assist 3 The helper provides less than half the effort to complete the activity 2 The helper provides more than half the effort to complete the activity 1 Dependent. The helper does all the effort to complete an activity 7 Patient refused to complete or attempt activity 9 The patient did not perform the activity before the current illness or injury 88 Not attempted due to Medical conditions or safety concerns Transfers (B, C, W/C) (FIM): 5 Supine to/from Sit: 6 (uses bedrail and elevated HOB) Sit to/from Stand: 5 (SBA for safety and due to decreased balance.) Weight Bearing Right Lower Extremity: Right Weight Bearing/Tolerated Left Lower Extremity: Left Weight Bearing/Tolerated Treatments Sit to stand x 5 reps. Worked on marching, calf raises and mini squats at EOB, all to promote LE circulation and functional strength; in addition to promote OOB activity and functional activity tolerance. Pt in bed post treatment with needs met. Assessment Current Status: Good Progress Tolerated upright activity well. Unsteady at times with standing and due to nausea, did not walk. However, spent much time on his feet working on activity tolerance and strength. PT [employer] Host Goals Intermediate Goals PT Intermediate Goals Time Frame: Apr 07, 2018 Transfers (B,C,W/C) (FIM): 6 Gait (FIM): 6 Gait distance (FIM): 3=150 ft Distance: 200' Gait Level of Assist: 6 Gait Assistive Device: FWW PT Plan Problem List Problem List: Activity Tolerance, Functional Strength, Safety, Balance, Gait, Transfer Treatment/Plan Treatment Plan: Continue Plan of Care Treatment Plan: Bed Mobility, Education, Functional Activity [place], Functional Strength, Gait, Safety, Therapeutic Exercise, Transfers Treatment Duration: Apr 07, 2018 Frequency: 6 times per week Estimated Hrs Per Day: .25 hour per day Patient and/or Family Agrees t: Yes Safety Risks/Education Patient Education: Safety Issues Teaching Recipient: Patient Teaching Methods: Discussion Response to Teaching: Reinforcement Needed Time/GCodes Time In: 900 Time Out: 924 Total Billed Treatment Time: 24 Total Billed Treatment visit FA 24 TRE VARGAS PT Mar 30, 2018 09:35
[2018-03-30 12:00] VITALS: BP 134/66
[2018-03-30] MEDS ORDERED: ONDANSETRON 4 MG/2 ML (SDV) Z0FRAN IVP PRN (12:45)
--- NOTE | 2018-03-30 14:53 | Pulmonary Consultation ---
History of Present Illness History of Present Illness Date of Consultation 03/30/18 14:53 Time Seen by Provider: 07:28 Date of Admission Reason for Visit: Anasarca History of Present Illness 53yo with hx of renal failure was directly admitted from Dr. Perez's office secondary to anasarca, wt gain, and worsening SOB. She gained over 10kg over the last week. She has been started on aggressive diuretics. I am consulted for pulmonary management. Allergies and Home Medications Allergies Coded Allergies: tazobactam (Verified Allergy, Unknown, RASH, 02/10/18) Home Medications Amlodipine Besylate 10 Mg Tablet, 10 MG PO DAILY, (Reported) Aspirin 81 Mg Tablet.dr, 81 MG PO DAILY, (Reported) Ferrous Sulfate 325 Mg Tablet, 325 MG PO BID, (Reported) Fexofenadine HCl 180 Mg Tablet, 180 MG PO 1700, (Reported) Furosemide 20 Mg Tablet, 20 MG PO 1600, (Reported) Furosemide 40 Mg Tablet, 40 MG PO DAILY, (Reported) Gabapentin 300 Mg Capsule, 600 MG PO TID, (Reported) TAKES 2 (300 MG) CAPSULES Glimepiride 4 Mg Tablet, 4 MG PO DAILY, (Reported) Hydralazine HCl 25 Mg Tablet, 25 MG PO TID, (Reported) Metoprolol Tartrate 50 Mg Tablet, 50 MG PO BID, (Reported) Pantoprazole Sodium 40 Mg Tablet.dr, 40 MG PO DAILY, (Reported) Rosuvastatin Calcium 5 Mg Tablet, 5 MG PO HS, (Reported) Past Grornff-Snrcyk-Ocqoca Hx Patient Social History Alcohol Use: Denies Use Recreational Drug Use: No 2nd Hand Smoke Exposure: No Recent Foreign Travel: No Contact w/Someone Who Travel: No Recent Infectious Disease Expo: No Recent Hopitalizations: Yes (PNEUMONIA, SPINAL SURGERY) Immunizations Up To Date Tetanus Booster (TDap): Unknown Date of Pneumonia Vaccine: Jun 16, 2015 Date of Influenza Vaccine: Mar 20, 2018 Seasonal Allergies Seasonal Allergies: No Past Medical History Surgeries: Yes (NASAL POLYPS REMOVED CHILD, heart cath x2,cystoscopy, ) Cardiac, Coronary Stent, Nose Respiratory: Yes Pneumonia, Sleep Apnea Currently Using CPAP: Yes Currently Using BIPAP: No Cardiac: Yes (PAD, stent placed in 06/30) Cardiomyopathy, Coronary Artery Disease, Hypertension, Irregular Heartbeat, Peripheral Vascular Neurological: Yes (NEUROPATHY IN LEGS/ FEET) Neuropathy Reproductive Disorders: Yes (E.D.) Sexually Transmitted Disease: No HIV/AIDS: No Genitourinary: No Gastrointestinal: Yes Chronic Diarrhea Musculoskeletal: No Arthritis, Chronic Back Pain Endocrine: Yes Diabetes, Non-Insulin dep HEENT: No (DIABETIC RETINOPATHY) Cancer: No Psychosocial: Yes Anxiety, Depression Integumentary: No Blood Disorders: No Adverse Reaction/Blood Tranf: No Family Medical History Arthritis G8 BROTHER (knee replacement) Cardiovascular disease 19 FATHER (chf) Deafness or hearing loss 19 MOTHER (vertigo) Diabetes mellitus 19 MOTHER Prostate cancer 19 FATHER No Pertinent Family Hx, Hypertension Review of Systems Time Seen by Provider: 10:32 Sepsis Event Evaluation Height, Weight, BMI Height: 5'11.00" Weight: 335lbs. 4.0oz. 152.516179kf; 46.7 BMI Method:Stated Exam Exam Vital Signs Date Time Temp Pulse Resp B/P (MAP) Pulse Ox O2 Delivery O2 Flow Rate FiO2 03/30/18 12:00 98.6 68 16 134/66 (88) 96 Nasal Cannula 2.00 03/30/18 09:11 92 Nasal Cannula 2.00 03/30/18 08:00 98.2 71 16 146/70 (95) 92 03/30/18 04:30 96.3 65 20 121/66 (84) 98 Nasal Cannula 2.00 03/29/18 23:54 97.0 65 20 137/71 (93) 96 Nasal Cannula 2.00 03/29/18 20:56 Nasal Cannula 2.00 03/29/18 20:29 2.00 03/29/18 20:13 97.1 75 18 136/77 (96) 95 Nasal Cannula 2.00 03/29/18 16:12 97.5 74 16 142/68 (92) 92 NIV CPAP 10.00 I & O 03/30/18 07:00 Intake Total 1200 ml Output Total 3275 ml Balance -2075 ml Height & Weight Height: 5'11.00" Weight: 335lbs. 4.0oz. 152.803516so; 46.7 BMI Method:Stated General Appearance: No Apparent Distress, WD/WN HEENT: Normal ENT Inspection Neck: Full Range of Motion, Normal Inspection Respiratory: Lungs Clear, No Accessory Muscle Use, No Respiratory Distress Cardiovascular: Regular Rate, Rhythm, No Murmur Gastrointestinal: non tender, soft Extremity: Normal Capillary Refill, Normal Inspection, Normal Range of Motion, Non Tender, No Calf Tenderness, Pedal Edema, Other (Significant edema) Neurologic/Psychiatric: Alert, Oriented x3, No Motor/Sensory Deficits, Normal Mood/Affect Skin: Normal Color, Warm/Dry Lymphatic: No Adenopathy Results Lab Laboratory Tests 03/29/18 05:23 03/30/18 08:00 Assessment/Plan Assessment/Plan Anasarca -Zaroxolyn Acute renal failure -monitor close CAD Anemia -check occult stool DM CHF EF 45-50% grade 2 diastolic failure with pulmonary HTN Spinal stenosis, status post C3-7 ACDF with C5 corpectomy done by Dr. Hardwick History of carotid stenosis, last ultrasound was done in July 2017. Continue to monitor JORGE GONZALEZ DO Mar 30, 2018 14:53
[2018-03-30 16:05] VITALS: BP 134/69
[2018-03-30] MEDS: FUROSEMIDE 40 MG/4 ML INJ (LASIX) IVP SCH (16:52)
[2018-03-30] MEDS: LORATADINE (CLARITIN) 10 MG TAB PO SCH (18:17)
--- NOTE | 2018-03-30 18:41 | Anesthesia-General Post-Op ---
General Patient Condition Mental Status/LOC: Same as Preop Cardiovascular: Satisfactory Nausea/Vomiting: Absent Respiratory: Satisfactory Pain: Controlled Complications: Absent Post Op Complications Complications None Follow Up Care/Instructions Patient Instructions None needed. Anesthesia/Patient Condition Patient Condition Patient was seen this morning and he was doing well, no complaints, stable vital signs, no apparent adverse anesthesia problems. LUIS HIGUERA DO Mar 30, 2018 18:41
[2018-03-30 19:10] VITALS: BP 140/63
[2018-03-30] MEDS: ROSUVASTATIN 5 MG (CRESTOR) TABLET PO SCH (21:26)
[2018-03-31] VITALS (9 sets, daily range): BP systolic 128–172; BP diastolic 66–79
[2018-03-31] MEDS ORDERED: cefTRIAXone FOR IV USE 1,000 MG in NS (IVPB) 50 ML IV SCH (00:15)
[2018-03-31] MEDS ORDERED: ACETAMINOPHEN 500 MG TAB (TYLENOL) PO PRN (00:15)
[2018-03-31 01:08] LABS: BASOPHILS % (AUTO) 0 % (0-10); EOSINOPHILS # (AUTO) 0.4 10^3/uL (0.0-0.3); EOSINOPHILS % (AUTO) 4 % (0-10); HEMATOCRIT 25 % (40-54); HEMOGLOBIN 7.8 G/DL (13.3-17.7); LYMPHOCYTES # (AUTO) 0.7 X 10^3 (1.0-4.0); LYMPHOCYTES % (AUTO) 7 % (12-44); MEAN CORPUSCULAR HEMOGLOBIN 29 PG (25-34); MEAN CORPUSCULAR HGB CONC 31 G/DL (32-36); MEAN CORPUSCULAR VOLUME 92 FL (80-99); MEAN PLATELET VOLUME 10.5 FL (7.4-10.4); MONOCYTES # (AUTO) 0.6 X 10^3 (0.0-1.0); MONOCYTES % (AUTO) 6 % (0-12); NEUTROPHILS # (AUTO) 7.4 X 10^3 (1.8-7.8); NEUTROPHILS % (AUTO) 82 % (42-75); PLATELET COUNT 223 10^3/uL (130-400); RED BLOOD COUNT 2.74 10^6/uL (4.35-5.85)
[2018-03-31] MEDS: cefTRIAXone FOR IV USE 1,000 MG in NS (IVPB) 50 ML IV SCH (01:40)
[2018-03-31 01:51] LABS: EOSINOPHILS % (MANUAL) 2 %; LYMPHOCYTES % (MANUAL) 6 %; MONOCYTES % (MANUAL) 8 %; NEUTROPHILS % (MANUAL) 84 %; TEAR DROP CELLS SLIGHT
[2018-03-31 05:20] LABS: HEMOGLOBIN 7.4 G/DL (13.3-17.7); MEAN PLATELET VOLUME 10.3 FL (7.4-10.4); RED BLOOD COUNT 2.61 10^6/uL (4.35-5.85); RED CELL DISTRIBUTION WIDTH 14.9 % (10.0-14.5); WHITE BLOOD COUNT 7.1 10^3/uL (4.3-11.0)
[2018-03-31 05:39] LABS: CALCIUM 8.6 MG/DL (8.5-10.1); CREATININE SERUM 2.42 MG/DL (0.60-1.30); MAGNESIUM 2.8 MG/DL (1.8-2.4); POTASSIUM 4.1 MMOL/L (3.6-5.0)
--- NOTE | 2018-03-31 05:39 | Diagnostic Imaging Report ---
INDICATION: Central line placement Portable chest 12:23 AM Right IJ Port-A-Cath tip projects over the SVC. Heart size and pulmonary vascularity are normal. Lungs are clear. There are no effusions or pneumothoraces. IMPRESSION: No acute abnormalities in the chest Dictated by: Dictated on workstation # [id number]
[2018-03-31] MEDS: inSUlin ASPART (NovoLOG) 1 UNIT/0.01 ML (CHARGE PER UNIT) SC SCH ×4 (07:13→21:03)
[2018-03-31] MEDS: GLIMEPIRIDE 4 MG (AMARYL) TAB PO SCH (07:14)
[2018-03-31] MEDS: FUROSEMIDE 40 MG/4 ML INJ (LASIX) IVP SCH ×2 (07:14→17:34)
[2018-03-31] MEDS: hydrALAZINE (APRESOLINE) 25 MG TAB PO SCH ×3 (07:14→21:34)
[2018-03-31] MEDS: FERROUS SULF 325 MG (IRON) TAB PO SCH ×2 (07:14→17:34)
[2018-03-31] MEDS: PANTOPRAZOLE 40 MG (PROTONIX) TAB PO SCH (07:14)
--- NOTE | 2018-03-31 07:40 | Pulmonary Progress Note ---
Subjective Time Seen by a Provider: 10:34 Subjective/Events-last exam pt has had fever and SOB. Sepsis Event Evaluation Height, Weight, BMI Height: 5'11.00" Weight: 337lbs. 3.0oz. 152.516125rc; 46.7 BMI Method:Stated Exam Exam Vital Signs Date Time Temp Pulse Resp B/P (MAP) Pulse Ox O2 Delivery O2 Flow Rate FiO2 03/31/18 01:40 101.1 03/31/18 01:05 102.0 03/31/18 00:02 101.8 85 19 139/71 (93) 95 NIV CPAP 4.00 03/30/18 21:00 91 Nasal Cannula 3.00 03/30/18 19:10 99.6 79 18 140/63 (88) 94 NIV CPAP 4.00 03/30/18 16:05 98.0 75 16 134/69 (90) 92 NIV CPAP 3.00 03/30/18 16:02 2.00 03/30/18 12:00 98.6 68 16 134/66 (88) 96 Nasal Cannula 2.00 03/30/18 09:11 92 Nasal Cannula 2.00 03/30/18 08:00 98.2 71 16 146/70 (95) 92 I & O 03/31/18 07:00 Intake Total 1630 ml Output Total 2050 ml Balance -420 ml Height & Weight Height: 5'11.00" Weight: 337lbs. 3.0oz. 152.451226ew; 46.7 BMI Method:Stated General Appearance: No Apparent Distress, WD/WN HEENT: Normal ENT Inspection Neck: Full Range of Motion, Normal Inspection Respiratory: Lungs Clear, No Accessory Muscle Use, No Respiratory Distress Cardiovascular: Regular Rate, Rhythm, No Murmur Gastrointestinal: non tender, soft Extremity: Normal Capillary Refill, Normal Inspection, Normal Range of Motion, Non Tender, No Calf Tenderness, Pedal Edema, Other (Significant edema) Neurologic/Psychiatric: Alert, Oriented x3, No Motor/Sensory Deficits, Normal Mood/Affect Skin: Normal Color, Warm/Dry Lymphatic: No Adenopathy Results Lab Laboratory Tests 03/30/18 08:00 03/31/18 00:45 03/31/18 05:10 Assessment/Plan Assessment/Plan fever -check blood, urine, and sputum cultures -check LA -Check ABG -CXR reviewed- shows no acute change. Anasarca -Zaroxolyn Acute renal failure -monitor close CAD Anemia -check occult stool DM CHF EF 45-50% grade 2 diastolic failure with pulmonary HTN Spinal stenosis, status post C3-7 ACDF with C5 corpectomy done by Dr. Hardwick History of carotid stenosis, last ultrasound was done in July 2017. Continue to monitor JORGE GONZALEZ DO Mar 31, 2018 07:40
--- NOTE | 2018-03-31 08:03 | Progress Note (SOAP) ---
Subjective Time Seen by a Provider: 08:00 Subjective/Events-last exam Patient had an elevated temperature of 102 last night Patient's pulse ox went down last night on CPAP. Patient needs to get out of bed and walk. Hemoglobin decreasing. Patient this morning voices no complaints Objective Exam Vital Signs Date Time Temp Pulse Resp B/P (MAP) Pulse Ox O2 Delivery O2 Flow Rate FiO2 03/31/18 04:02 99.2 84 18 140/72 (94) 96 NIV CPAP 4.00 03/31/18 01:40 101.1 03/31/18 01:05 102.0 03/31/18 00:02 101.8 85 19 139/71 (93) 95 NIV CPAP 4.00 03/30/18 21:00 91 Nasal Cannula 3.00 03/30/18 19:10 99.6 79 18 140/63 (88) 94 NIV CPAP 4.00 03/30/18 16:05 98.0 75 16 134/69 (90) 92 NIV CPAP 3.00 03/30/18 16:02 2.00 03/30/18 12:00 98.6 68 16 134/66 (88) 96 Nasal Cannula 2.00 03/30/18 09:11 92 Nasal Cannula 2.00 I & O 03/31/18 07:00 Intake Total 1630 ml Output Total 2050 ml Balance -420 ml Capillary Refill : General Appearance: No Apparent Distress, WD/WN HEENT: Normal ENT Inspection Neck: Full Range of Motion, Normal Inspection Respiratory: Lungs Clear, No Accessory Muscle Use, No Respiratory Distress Cardiovascular: Regular Rate, Rhythm, No Murmur Gastrointestinal: non tender, soft Extremity: Other (Anasarca) Results Lab Laboratory Tests 03/31/18 00:45 03/31/18 05:10 Laboratory Tests 03/30/18 11:08: Glucometer 204H 03/30/18 16:08: Glucometer 286H 03/30/18 20:56: Glucometer 184H 03/31/18 00:45: White Blood Count 9.0, Red Blood Count 2.74L, Hemoglobin 7.8L, Hematocrit 25L, Mean Corpuscular Volume 92, Mean Corpuscular Hemoglobin 29, Mean Corpuscular Hemoglobin Concent 31L, Red Cell Distribution Width 15.0H, Platelet Count 223, Mean Platelet Volume 10.5H, Neutrophils (%) (Auto) 82H, Lymphocytes (%) (Auto) 7L, Monocytes (%) (Auto) 6, Eosinophils (%) (Auto) 4, Basophils (%) (Auto) 0, Neutrophils # (Auto) 7.4, Lymphocytes # (Auto) 0.7L, Monocytes # (Auto) 0.6, Eosinophils # (Auto) 0.4H, Basophils # (Auto) 0.0, Neutrophils % (Manual) 84, Lymphocytes % (Manual) 6, Monocytes % (Manual) 8, Eosinophils % (Manual) 2, Basophilic Stippling SLIGHT, Tear Drop Cells SLIGHT 03/31/18 05:05: Glucometer 168H 03/31/18 05:10: White Blood Count 7.1, Red Blood Count 2.61L, Hemoglobin 7.4L, Hematocrit 24L, Mean Corpuscular Volume 92, Mean Corpuscular Hemoglobin 28, Mean Corpuscular Hemoglobin Concent 31L, Red Cell Distribution Width 14.9H, Platelet Count 197, Mean Platelet Volume 10.3, Sodium Level 142, Potassium Level 4.1, Chloride Level 103, Carbon Dioxide Level 26, Anion Gap 13, Blood Urea Nitrogen 72H, Creatinine 2.42H, Estimat Glomerular Filtration Rate 28, BUN/Creatinine Ratio 30 , Glucose Level 137H, Calcium Level 8.6, Magnesium Level 2.8H, Thyroid Stimulating Hormone (TSH) 0.52 Microbiology 03/29/18 MRSA Screen - Final, Complete MRSA not isolated Assessment/Plan Assessment/Plan Assess & Plan/Chief Complaint Anasarca. Renal insufficiency. Anemia. Diabetes. 53 pound weight gain since cervical surgery. Shortness of breath. . 03/29/18. Anasarca. Renal insufficiency. Anemia Diabetes. Shortness of breath. Patient to have a port put in today. . 03/30/18. Anasarca. Renal failure. Anemia. CAD. Diabetes. Hyperlipidemia.. . 03/31/18. Anasarca. Renal insufficiency. Anemia. Coronary artery disease. Diabetes. Hyperlipidemia. Febrile. Temperature over 102 last night. Anemia getting worse. Clinical Quality Measures Admission Status Admission Dx Anasarca. Diabetes. Renal insufficiency. Weight gain of. Coronary artery disease 54 Patient gained 54 pounds since cervical surgery. Short of breath DVT/VTE Risk/Contraindication: Contraindications-Pharm: Other *list below* Contraindications-Mechi: Other *list below* MARIIA SIM DO Mar 31, 2018 08:03
--- NOTE | 2018-03-31 08:34 | Cardiology Progress Note ---
Subjective Date Seen by Provider: Mar 31, 2018 Time Seen by Provider: 08:30 Subjective/Events-last exam Patient is in bed, still having edema, no chest pain Review of Systems General: No Chills, No Night Sweats, No Fatigue, No Malaise, No Appetite, No Other HEENT: No Head Aches, No Visual Changes, No Eye Pain, No Ear Pain, No Dysphasia , No Sinus Congestion, No Post Nasal Drip, No Sore Throat, No Other Pulmonary: Dyspnea; No Cough, No Pleuritic Chest Pain, No Other Cardiovascular: Edema; No: Chest Pain, Palpitations, Orthopnea, Paroxysmal Noc. Dyspnea, Lt Headedness, Other Focused Exam Lactate Level 03/31/18 08:05: Lactic Acid Level 0.40L Lactic Acid Level Laboratory Tests Test 03/31/18 08:05 Lactic Acid Level 0.40 MMOL/L (0.50-2.00) L Objective-Cardiology Exam Last Set of Vital Signs Vital Signs 03/31/18 04:02 Temp 99.2 Pulse 84 Resp 18 B/P (MAP) 140/72 (94) Pulse Ox 96 O2 Delivery NIV CPAP O2 Flow Rate 4.00 Capillary Refill : I&O Intake and Output 03/30/18 23:59 Intake Total 1680 ml Output Total 2450 ml Balance -770 ml Intake Oral 1680 ml Output Urine Total 2450 ml General: Alert, Oriented X3, Cooperative HEENT: Atraumatic, PERRLA Neck: Supple, No JVD, No Thyromegaly Lungs: Clear to Auscultation, Normal Air Movement Heart: Regular Rate, Normal S1, Normal S2, No Murmurs Abdomen: Normal Bowel Sounds, Soft, No Tenderness, No Hepatosplenomegaly, No Masses Extremities: No Clubbing, No Cyanosis, Normal Pulses, No Tenderness/Swelling, Other (+2-3 pitting edema) Skin: No Rashes, No Breakdown, No Significant Lesion Neuro: Normal Speech, Cranial Nerves 3-12 NL Psych/Mental Status: Mental Status NL, Mood NL Results Lab Laboratory Tests 03/31/18 00:45 03/31/18 05:10 A/P-Cardiology Admission Diagnosis Anasarca Acute renal failure Anemia Coronary artery disease Assessment/Plan Anasarca, fluid overload. slow response to diuretics, worsening renal function , monitor closely Acute on chronic renal failure, diabetic nephropathy, Stop Zaroxolyn and decrease Lasix to once daily and continue to monitor, need nephrology evaluation Anemia, possible transfusion today, followed by Dr. Bain as an outpatient Generalized weakness and loss of energy. PT were consulted Congestive heart failure, acute left ventricular systolic dysfunction, echocardiogram showed ejection fraction 45-50 percent, grade 2 diastolic dysfunction, dilated left atrium measuring 6.1 cm. Pulmonary hypertension with PA pressure of 35 mmHg. History of coronary artery disease, history of mid LAD stenting using Alpine 3.0 18 mm done in June 2017, mild to moderate disease in the proximal portion of the LAD, moderate disease at the distal circumflex artery. I will consider repeating his stress test once more stable History of diabetes mellitus, diabetic neuropathy, followed and managed by primary care physician History of hyperlipidemia with intolerance to statin. Spinal stenosis, status post C3-7 ACDF with C5 corpectomy done by Dr. Hardwick History of carotid stenosis, last ultrasound was done in July 2017. Continue to monitor History of respiratory failure secondary to pneumonia. Was managed by Dr. Gao previously, will consult Dr. Gao for evaluation Clinical Quality Measures DVT/VTE Risk/Contraindication: Contraindications-Pharm: Other *list below* Contraindications-Mechi: Other *list below* KAREN YANG MD Mar 31, 2018 8:34 am
[2018-03-31] MEDS ORDERED: diphenhydrAMINE 25 MG TAB (BENADRYL) PO NR (08:45)
[2018-03-31] MEDS ORDERED: ACETAMINOPHEN 325 MG TABLET PO NR (08:45)
[2018-03-31] MEDS ORDERED: NS IV 500 ML 500 ML IV ONE (08:45)
[2018-03-31 09:33] LABS: BILIRUBIN,URINE NEGATIVE (NEGATIVE); CLARITY,URINE CLEAR; COLOR,URINE YELLOW; GLUCOSE, URINE (UA) NEGATIVE (NEGATIVE); KETONES,URINE NEGATIVE (NEGATIVE); LEUKOCYTE ESTERASE ,URINE NEGATIVE (NEGATIVE); NITRITE,URINE NEGATIVE (NEGATIVE); PH,URINE 5 (5-9); PROTEIN,URINE 2+ (NEGATIVE); UROBILINOGEN,URINE NORMAL (NORMAL)
[2018-03-31 09:42] LABS: BACTERIA,URINE NEGATIVE /HPF; RBC,URINE 0-2 /HPF; WBC,URINE RARE /HPF
[2018-03-31] MEDS: amLODIPine 10 MG (NORVASC) TAB PO SCH (09:44)
[2018-03-31] MEDS: ASPIRIN E.C. 81 MG (ECOTRIN) TAB PO SCH (09:44)
[2018-03-31] MEDS: GABAPENTIN 600 MG (NEURONTIN) TAB PO SCH ×2 (09:44→21:34)
[2018-03-31] MEDS: meTOprolol TARTRATE 50 MG (LOPRESSOR) TAB PO SCH ×2 (09:48→21:34)
[2018-03-31] MEDS: MICONAZOLE 2% POWDER (DESENEX AF) 90 GM TOP SCH ×2 (09:50→21:34)
--- NOTE | 2018-03-31 10:50 | Physical Therapy Daily Note ---
PT Daily Note-Current Subjective Patient reluctantly agrees to PT. Pain Numeric Pain Scale: 5-Moderate Pain Location: Soft Tissue Location Body Site: Genital Pain Description: Pressure Mental Status Patient Orientation: Normal For Age Transfers Functional [place] Measure 0=Not Assessed/NA 4=Minimal Assistance 1=Total Assistance 5=Supervision or Setup 2=Maximal Assistance 6=Modified [place] 3=Moderate Assistance 7=Complete IndependenceIRFPAI Quality Coding Scale 6 Independent with activity with or without an assistive device 5 Patient requires set up or clean up by helper. Patient completes activity by themselves 4 Supervision or touching assist (CGA). [place] provide cues , steadying assist 3 The helper provides less than half the effort to complete the activity 2 The helper provides more than half the effort to complete the activity 1 Dependent. The helper does all the effort to complete an activity 7 Patient refused to complete or attempt activity 9 The patient did not perform the activity before the current illness or injury 88 Not attempted due to Medical conditions or safety concerns Transfers (B, C, W/C) (FIM): 6 Scootin Sit to/from Stand: 6 Weight Bearing Right Lower Extremity: Right Weight Bearing/Tolerated Left Lower Extremity: Left Weight Bearing/Tolerated Gait Training Gait (FIM): 6 Distance (FIM): 3=150 ft Distance: 175' Gait Level of Assist: 6 Gait Assistive Device: FWW WBOS due to scrotal edema Assessment Patient self limits, however, is progressing with treatment plan. Patient requires much encouragement to participate with PT. 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 Time Frame: Apr 07, 2018 Transfers (B,C,W/C) (FIM): 6 Gait (FIM): 6 Gait distance (FIM): 3=150 ft Distance: 200' Gait Level of Assist: 6 Gait Assistive Device: FWW PT Plan Treatment/Plan Treatment Plan: Continue Plan of Care Treatment Plan: Bed Mobility, Education, Functional Activity [place], Functional Strength, Gait, Safety, Therapeutic Exercise, Transfers Treatment Duration: Apr 07, 2018 Frequency: 6 times per week Estimated Hrs Per Day: .25 hour per day Patient and/or Family Agrees t: Yes Time/GCodes Time In: 1015 Time Out: 1031 Total Billed Treatment Time: 16 Total Billed Treatment 1 visit FA 16 min MARK RAMIREZ PT Mar 31, 2018 10:49
[2018-03-31] MEDS: LORATADINE (CLARITIN) 10 MG TAB PO SCH (17:34)
[2018-03-31] MEDS: ROSUVASTATIN 5 MG (CRESTOR) TABLET PO SCH (21:34)
[2018-04-01] VITALS: BP 107/67
[2018-04-01] MEDS: cefTRIAXone FOR IV USE 1,000 MG in NS (IVPB) 50 ML IV SCH (01:49)
[2018-04-01 04:00] VITALS: BP 136/66
[2018-04-01] MEDS: inSUlin ASPART (NovoLOG) 1 UNIT/0.01 ML (CHARGE PER UNIT) SC SCH ×4 (05:39→22:02)
[2018-04-01] MEDS: hydrALAZINE (APRESOLINE) 25 MG TAB PO SCH ×3 (05:40→22:01)
[2018-04-01] MEDS: FERROUS SULF 325 MG (IRON) TAB PO SCH ×2 (05:40→16:59)
[2018-04-01] MEDS: HYDROcodone/APAP 5 MG/325 MG (LORTAB) TAB PO PRN ×2 (05:40→22:08)
[2018-04-01] MEDS: FUROSEMIDE 40 MG/4 ML INJ (LASIX) IVP SCH ×2 (05:40→17:00)
[2018-04-01] MEDS: GLIMEPIRIDE 4 MG (AMARYL) TAB PO SCH (05:40)
[2018-04-01] MEDS: PANTOPRAZOLE 40 MG (PROTONIX) TAB PO SCH (05:40)
--- NOTE | 2018-04-01 05:58 | Pulmonary Progress Note ---
Subjective Time Seen by a Provider: 05:57 Subjective/Events-last exam labs pending. RN states she has been having trouble titrating oxygen. Sepsis Event Evaluation Height, Weight, BMI Height: 5'11.00" Weight: 337lbs. 3.0oz. 152.213838mg; 46.7 BMI Method:Stated Focused Exam Lactate Level 03/31/18 08:05: Lactic Acid Level 0.40L Exam Exam Vital Signs Date Time Temp Pulse Resp B/P (MAP) Pulse Ox O2 Delivery O2 Flow Rate FiO2 04/01/18 00:46 NIV CPAP 2.00 04/01/18 00:45 95 High Flow N/C 5.00 04/01/18 00:00 98.7 109 22 107/67 (80) 96 NIV CPAP 3.00 03/31/18 21:00 Nasal Cannula 5.00 03/31/18 19:47 97.4 77 16 128/68 (88) 93 Nasal Cannula 5.00 03/31/18 16:50 97.7 66 16 131/66 (87) 96 Nasal Cannula 5.00 03/31/18 13:54 99.3 61 132/72 03/31/18 12:00 99.3 61 20 132/72 (92) 94 Nasal Cannula 5.00 03/31/18 11:37 97.4 68 172/79 03/31/18 11:22 96.5 70 144/70 03/31/18 09:00 Nasal Cannula 5.00 03/31/18 08:00 97.0 70 20 134/67 (89) 95 Nasal Cannula 5.00 I & O 04/01/18 07:00 Intake Total 1912 ml Output Total 2650 ml Balance -738 ml Height & Weight Height: 5'11.00" Weight: 337lbs. 3.0oz. 152.207386mz; 46.7 BMI Method:Stated General Appearance: No Apparent Distress, WD/WN HEENT: Normal ENT Inspection Neck: Full Range of Motion, Normal Inspection Respiratory: Lungs Clear, No Accessory Muscle Use, No Respiratory Distress Cardiovascular: Regular Rate, Rhythm, No Murmur Gastrointestinal: non tender, soft Extremity: Other (Anasarca) Neurologic/Psychiatric: Alert, Oriented x3, No Motor/Sensory Deficits, Normal Mood/Affect Skin: Normal Color, Warm/Dry Lymphatic: No Adenopathy Results Lab Laboratory Tests 03/30/18 08:00 03/31/18 00:45 03/31/18 05:10 Assessment/Plan Assessment/Plan fever - resolved -blood, urine, and sputum cultures pending -CXR reviewed- shows no acute change. Hypoxia - CXR is clear -Check CT without contrast secondary to Cr -pt refused ABG -CHeck bilateral dopplers LE Anasarca -Zaroxolyn Acute renal failure -monitor close CAD Anemia -S/p transfusion DM CHF EF 45-50% grade 2 diastolic failure with pulmonary HTN Spinal stenosis, status post C3-7 ACDF with C5 corpectomy done by Dr. Hardwick History of carotid stenosis, last ultrasound was done in July 2017. Continue to monitor JORGE GONZALEZ DO Apr 01, 2018 05:58
[2018-04-01 06:30] LABS: BASOPHILS % (AUTO) 0 % (0-10); EOSINOPHILS # (AUTO) 0.6 10^3/uL (0.0-0.3); EOSINOPHILS % (AUTO) 8 % (0-10); HEMATOCRIT 26 % (40-54); HEMOGLOBIN 7.9 G/DL (13.3-17.7); LYMPHOCYTES # (AUTO) 0.8 X 10^3 (1.0-4.0); LYMPHOCYTES % (AUTO) 11 % (12-44); MEAN CORPUSCULAR HEMOGLOBIN 28 PG (25-34); MEAN CORPUSCULAR HGB CONC 31 G/DL (32-36); MEAN CORPUSCULAR VOLUME 91 FL (80-99); MEAN PLATELET VOLUME 10.9 FL (7.4-10.4); MONOCYTES # (AUTO) 0.6 X 10^3 (0.0-1.0); MONOCYTES % (AUTO) 8 % (0-12); NEUTROPHILS # (AUTO) 5.5 X 10^3 (1.8-7.8); NEUTROPHILS % (AUTO) 73 % (42-75); PLATELET COUNT 193 10^3/uL (130-400); RED BLOOD COUNT 2.85 10^6/uL (4.35-5.85); RED CELL DISTRIBUTION WIDTH 14.8 % (10.0-14.5); WHITE BLOOD COUNT 7.5 10^3/uL (4.3-11.0)
[2018-04-01 06:50] LABS: CALCIUM 8.6 MG/DL (8.5-10.1); CREATININE SERUM 2.25 MG/DL (0.60-1.30); POTASSIUM 3.8 MMOL/L (3.6-5.0)
[2018-04-01 08:00] VITALS: BP 143/73
[2018-04-01] MEDS: GABAPENTIN 600 MG (NEURONTIN) TAB PO SCH ×2 (10:08→22:01)
[2018-04-01] MEDS: ASPIRIN E.C. 81 MG (ECOTRIN) TAB PO SCH (10:08)
[2018-04-01] MEDS: amLODIPine 10 MG (NORVASC) TAB PO SCH (10:08)
[2018-04-01] MEDS: meTOprolol TARTRATE 50 MG (LOPRESSOR) TAB PO SCH ×2 (10:08→22:01)
[2018-04-01] MEDS: MICONAZOLE 2% POWDER (DESENEX AF) 90 GM TOP SCH ×2 (10:08→22:02)
--- NOTE | 2018-04-01 11:24 | Physical Therapy Daily Note ---
PT Daily Note-Current Subjective Pt agreeable. Pain rated 7-8/10 in (B) LE and scrotum. Transfers Functional [place] Measure 0=Not Assessed/NA 4=Minimal Assistance 1=Total Assistance 5=Supervision or Setup 2=Maximal Assistance 6=Modified [place] 3=Moderate Assistance 7=Complete IndependenceIRFPAI Quality Coding Scale 6 Independent with activity with or without an assistive device 5 Patient requires set up or clean up by helper. Patient completes activity by themselves 4 Supervision or touching assist (CGA). [place] provide cues , steadying assist 3 The helper provides less than half the effort to complete the activity 2 The helper provides more than half the effort to complete the activity 1 Dependent. The helper does all the effort to complete an activity 7 Patient refused to complete or attempt activity 9 The patient did not perform the activity before the current illness or injury 88 Not attempted due to Medical conditions or safety concerns Weight Bearing Right Lower Extremity: Right Weight Bearing/Tolerated Left Lower Extremity: Left Weight Bearing/Tolerated Gait Training Gait Assistive Device: FWW Pt amb with O2 at 3L/min, FWW and SBA x 110ft. Gait slow, steady and wide JULIANN. Assessment Current Status: Fair Progress Pt mobility limited by pain. Pt back to bed with call light and all needs met. O2 insitu post therapy session. PT Account Manager Education Goals Account Manager Education Goals PT Skilled Nursing Goals Time Frame: Apr 07, 2018 Transfers (B,C,W/C) (FIM): 6 Gait (FIM): 6 Gait distance (FIM): 3=150 ft Distance: 200' Gait Level of Assist: 6 Gait Assistive Device: FWW PT Plan Treatment/Plan Treatment Plan: Continue Plan of Care Treatment Plan: Bed Mobility, Education, Functional Activity [place], Functional Strength, Gait, Safety, Therapeutic Exercise, Transfers Treatment Duration: Apr 07, 2018 Frequency: 6 times per week Estimated Hrs Per Day: .25 hour per day Patient and/or Family Agrees t: Yes Time/GCodes Time In: 945 Time Out: 1003 Total Billed Treatment Time: 18 Total Billed Treatment 1 gait 18 min BETO LONDON CPTA Apr 01, 2018 11:24
[2018-04-01 12:00] VITALS: BP 136/68
--- NOTE | 2018-04-01 12:57 | Diagnostic Imaging Report ---
PROCEDURE: CT chest without contrast. TECHNIQUE: Multiple contiguous axial images were obtained through the chest without the use of intravenous contrast. INDICATION: Dyspnea. COMPARISON: Chest x-ray 03/31/2018. DISCUSSION: Right chest wall Lzihws-j-Kfsf has a small amount of subcutaneous gas around the port which is likely due to recent placement, though if port is chronic, underlying infection should be excluded clinically. Atelectasis is noted within the lung bases. There are some air bronchograms noted within the bilateral lung bases which could be seen with atelectasis or pneumonia. Trace bilateral pleural effusions. Normal heart size. No pericardial fluid. Mild bilateral gynecomastia. Shotty appearing mediastinal adenopathy. The gallbladder is contracted. Probable cyst arising from the left kidney is incompletely evaluated due to lack of IV contrast. No osseous abnormality identified. IMPRESSION: 1. Opacities within the bilateral lung bases could represent a combination of atelectasis or pneumonia. 2. Trace bilateral pleural effusions. 3. Shotty appearing mediastinal adenopathy. 4. Soft tissue gas noted along the right chest wall Hgusii-y-Sblz as discussed above. Dictated by: Dictated on workstation # [id number]
--- NOTE | 2018-04-01 13:26 | Progress Note-Hospitalist ---
Subjective HPI/CC On Admission Date Seen by Provider: Apr 01, 2018 Time Seen by Provider: 12:30 Subjective/Events-last exam Patient about the same Anasarca improved Creat 2.2 Received blood yesterday Reviewed noted and meds and labs Focused Exam Lactate Level 03/31/18 08:05: Lactic Acid Level 0.40L Objective Exam Vital Signs Vital Signs Date Time Temp Pulse Resp B/P (MAP) Pulse Ox O2 Delivery O2 Flow Rate FiO2 04/01/18 09:00 Nasal Cannula 5.00 04/01/18 08:00 97.9 74 18 143/73 (96) 95 Capillary Refill : Less Than 3 Seconds General Appearance: No Apparent Distress, WD/WN, Chronically ill, Obese Respiratory: Chest Non Tender, Lungs Clear, Normal Breath Sounds, No Accessory Muscle Use, No Respiratory Distress Cardiovascular: Regular Rate, Rhythm, No Edema, No Gallop, No JVD, No Murmur, Normal Peripheral Pulses Extremity: Pedal Edema Neurologic/Psychiatric: Alert, Oriented x3, No Motor/Sensory Deficits, Normal Mood/Affect Results/Procedures Lab Laboratory Tests 04/01/18 05:37 Patient resulted labs reviewed. Assessment/Plan Assessment and Plan Assess & Plan/Chief Complaint Assessment: Anasarca CRI Anemia Transfusion yesterday Neuropathy Plan: Poor prognosis Monitor labs Monitor creatinine Diagnosis/Problems Diagnosis/Problems (1) Anasarca Status: Acute (2) Non-compliance Status: Chronic (3) Uncontrolled diabetes mellitus Status: Chronic Qualifiers: Diabetes mellitus type: type 2 Glycemic state: with hyperglycemia Qualified Codes: E11.65 - Type 2 diabetes mellitus with hyperglycemia (4) Apathy Status: Chronic (5) Peripheral neuropathy Status: Chronic Qualifiers: Peripheral neuropathy type: idiopathic neuropathy, unspecified Qualified Codes: G60.9 - Hereditary and idiopathic neuropathy, unspecified (6) Depression Status: Chronic Qualifiers: Depression Type: unspecified Qualified Codes: F32.9 - Major depressive disorder, single episode, unspecified (7) Anemia Status: Chronic Qualifiers: Anemia type: unspecified type Qualified Codes: D64.9 - Anemia, unspecified (8) Renal failure Status: Chronic Qualifiers: Renal failure chronicity: acute on chronic Acute renal failure type: unspecified Chronic kidney disease stage: stage 3 (moderate) Qualified Codes : N17.9 - Acute kidney failure, unspecified; N18.3 - Chronic kidney disease, stage 3 (moderate) Clinical Quality Measures DVT/VTE Risk/Contraindication: Contraindications-Pharm: Other *list below* Contraindications-Mechi: Other *list below* JULY MIJARES DO Apr 01, 2018 13:26
--- NOTE | 2018-04-01 14:05 | Cardiology Progress Note ---
Cardiology SOAP Progress Note Subjective: Improved shortness of breath. Objective: I&O/Vital Signs 04/01/18 04/01/18 04/01/18 04:00 08:00 09:00 Temp 99.5 97.9 Pulse 77 74 Resp 18 18 B/P (MAP) 136/66 (89) 143/73 (96) Pulse Ox 96 95 O2 Delivery NIV CPAP Nasal Cannula Nasal Cannula O2 Flow Rate 3.00 5.00 5.00 04/01/18 00:00 Intake Total 1862 ml Output Total 2650 ml Balance -788 ml Weight (Pounds): 336 Weight (Ounces): 3.0 Weight (Calculated Kilograms): 152.845660 Constitutional: No appears stated age; AAO x 3; No apparent distress, No PERRL , No well-developed, No well-nourished, No other Respiratory: No accessory muscle use, No respiratory distress, No chest tender , No chest expansion is symmetric; chest is bilaterally symmetric; No lungs clear to percussion; lungs clear to auscultation; No crackles, No rhonchi, No rales, No stridor, No wheezing, No pleural rub, No other Cardiovascular: regular rate-rhythm; No irregularly irregular, No extra beats, No parasternal heave is noted, No JVD, No edema, No bradycardia, No tachycardia , No point of maximal impulse, No cardiac thrills are palpable; S1 and S2; No gallop/S3, No gallop/S4, No diastolic murmur, No systolic murmur, No friction rub, No click, No other Gastrointestional: No tender, No soft, No round, No distended, No pulsatile mass, No organomegaly, No guarding, No rebound, No tenderness, No hernia, No mass, No audible bowel sounds, No abnormal bowel sounds, No abdominal bruits, No spleenomegaly, No other Extremities: No normal range of motion, No non-tender, No normal inspection, No pedal edema, No calf tenderness, No normal capillary refill, No pelvis stable , No calf tenderness, No inflammation, No pedal edema, No slow capillary refill , No swelling, No other, No abrasion, No clubbing, No cyanosis, No ecchymosis, No laceration, No no lower extremity edema bilateral, No significant edema, No tenderness, No wound Neurologic/Psychiatric: no motor/sensory deficits, alert, normal mood/affect, oriented x 3 Skin: No normal color, No warm/dry, No cyanosis, No cool, No diaphoresis, No damp, No ecchymosis, No jaundice, No mottled, No pallor, No rash, No tattoos/ piercings, No ulcerations, No rash on exposed areas, No ulcerations on exposed areas, No other Results/Procedures: Labs Laboratory Tests 03/31/18 16:09: Glucometer 188H 03/31/18 20:31: Glucometer 159H 04/01/18 02:30: Stool Occult Blood Immunoassay NEGATIVE 04/01/18 05:36: Glucometer 163H 04/01/18 05:37: White Blood Count 7.5, Red Blood Count 2.85L, Hemoglobin 7.9L, Hematocrit 26L, Mean Corpuscular Volume 91, Mean Corpuscular Hemoglobin 28, Mean Corpuscular Hemoglobin Concent 31L, Red Cell Distribution Width 14.8H, Platelet Count 193, Mean Platelet Volume 10.9H, Neutrophils (%) (Auto) 73, Lymphocytes (%) (Auto) 11L, Monocytes (%) (Auto) 8, Eosinophils (%) (Auto) 8, Basophils (%) (Auto) 0, Neutrophils # (Auto) 5.5, Lymphocytes # (Auto) 0.8L, Monocytes # (Auto) 0.6, Eosinophils # (Auto) 0.6H, Basophils # (Auto) 0.0, Sodium Level 143, Potassium Level 3.8, Chloride Level 101, Carbon Dioxide Level 29, Anion Gap 13, Blood Urea Nitrogen 77H, Creatinine 2.25H, Estimat Glomerular Filtration Rate 31, BUN/ Creatinine Ratio 34, Glucose Level 141H, Calcium Level 8.6 04/01/18 11:07: Glucometer 191H Microbiology 03/31/18 Blood Culture - Preliminary, Resulted No growth 03/29/18 MRSA Screen - Final, Complete MRSA not isolated A/P: Assessment/Dx: Admission Diagnosis Anasarca Acute renal failure Anemia Coronary artery disease Plan: Assessment/Plan Anasarca, fluid overload. slow response to diuretics, worsening renal function , monitor closely Acute on chronic renal failure, diabetic nephropathy, Stop Zaroxolyn and decrease Lasix to once daily and continue to monitor, need nephrology evaluation outpatient. Anemia, possible transfusion today, followed by Dr. Bain as an outpatient Generalized weakness and loss of energy. PT were consulted Congestive heart failure, acute left ventricular systolic dysfunction, echocardiogram showed ejection fraction 45-50 percent, grade 2 diastolic dysfunction, dilated left atrium measuring 6.1 cm. Pulmonary hypertension with PA pressure of 35 mmHg. History of coronary artery disease, history of mid LAD stenting using Alpine 3.0 18 mm done in June 2017, mild to moderate disease in the proximal portion of the LAD, moderate disease at the distal circumflex artery. History of diabetes mellitus, diabetic neuropathy, followed and managed by primary care physician History of hyperlipidemia with intolerance to statin. Spinal stenosis, status post C3-7 ACDF with C5 corpectomy done by Dr. Hardwick History of carotid stenosis, last ultrasound was done in July 2017. Continue to monitor History of respiratory failure secondary to pneumonia. Was managed by Dr. Gao previously, will consult Dr. Gao for evaluation Thank you for your consultation. Please call me if you have any questions. Byron [place] MD, FACP, FACC, FSCAI, FHRS, CCDS Interventional Cardiology Cardiac Electrophysiology Vascular Medicine and Endovascular Interventions Focused Exam Lactate Level 03/31/18 08:05: Lactic Acid Level 0.40L Alma MATAMOROS MD Apr 01, 2018 2:05 pm
[2018-04-01 16:41] VITALS: BP 134/69
[2018-04-01] MEDS: LORATADINE (CLARITIN) 10 MG TAB PO SCH (16:59)
--- NOTE | 2018-04-01 17:47 | Diagnostic Imaging Report ---
PROCEDURE: US Venous Lower Ext John. TECHNIQUE: Multiple real-time grayscale images were obtained over the lower extremities in various projections, bilaterally. Additional duplex Doppler and color Doppler images were also obtained. INDICATION: Pain and swelling. FINDINGS: The common femoral, femoral, popliteal veins and tibial veins demonstrate normal response to compression, augmentation and Valsalva. There are no abnormal lower extremity fluid collections or masses. IMPRESSION: No evidence of deep venous thrombosis in either lower extremity. Dictated by: Dictated on workstation # [id number]
[2018-04-01 20:30] VITALS: BP 157/79
[2018-04-01] MEDS: ROSUVASTATIN 5 MG (CRESTOR) TABLET PO SCH (22:01)
[2018-04-02] VITALS: BP 134/65
[2018-04-02] MEDS: cefTRIAXone FOR IV USE 1,000 MG in NS (IVPB) 50 ML IV SCH (01:27)
[2018-04-02 04:00] VITALS: BP 130/63
--- NOTE | 2018-04-02 05:56 | Pulmonary Progress Note ---
Subjective Time Seen by a Provider: 11:17 Subjective/Events-last exam No complications noted. Sepsis Event Evaluation Height, Weight, BMI Height: 5'11.00" Weight: 336lbs. 3.0oz. 152.177290ep; 46.7 BMI Method:Stated Focused Exam Lactate Level 03/31/18 08:05: Lactic Acid Level 0.40L Exam Exam Vital Signs Date Time Temp Pulse Resp B/P (MAP) Pulse Ox O2 Delivery O2 Flow Rate FiO2 04/02/18 00:00 98.5 71 16 134/65 (88) 93 Nasal Cannula 3.00 04/01/18 22:30 99.5 04/01/18 20:30 100.0 81 18 157/79 (105) 95 Nasal Cannula 3.00 04/01/18 20:00 95 Nasal Cannula 3.00 04/01/18 16:41 99.1 69 18 134/69 (90) 91 NIV CPAP 3.00 04/01/18 14:48 2.00 04/01/18 12:00 97.6 74 18 136/68 (90) 93 Nasal Cannula 5.00 04/01/18 09:00 Nasal Cannula 5.00 04/01/18 08:00 97.9 74 18 143/73 (96) 95 Nasal Cannula 5.00 I & O 04/02/18 07:00 Intake Total 1390 ml Output Total 3350 ml Balance -1960 ml Height & Weight Height: 5'11.00" Weight: 336lbs. 3.0oz. 152.883806no; 46.7 BMI Method:Stated General Appearance: No Apparent Distress, WD/WN, Chronically ill, Obese HEENT: Normal ENT Inspection Neck: Full Range of Motion, Normal Inspection Respiratory: Chest Non Tender, Lungs Clear, Normal Breath Sounds, No Accessory Muscle Use, No Respiratory Distress Cardiovascular: Regular Rate, Rhythm, No Edema, No Gallop, No JVD, No Murmur, Normal Peripheral Pulses Gastrointestinal: non tender, soft Extremity: Pedal Edema Neurologic/Psychiatric: Alert, Oriented x3, No Motor/Sensory Deficits, Normal Mood/Affect Skin: Normal Color, Warm/Dry Lymphatic: No Adenopathy Results Lab Laboratory Tests 04/01/18 05:37 Assessment/Plan Assessment/Plan fever - resolved -blood, urine, and sputum cultures pending -CXR reviewed- shows no acute change. Hypoxia - CXR is clear Anasarca -Lasix Acute renal failure -monitor close CAD Anemia -S/p transfusion DM CHF EF 45-50% grade 2 diastolic failure with pulmonary HTN Spinal stenosis, status post C3-7 ACDF with C5 corpectomy done by Dr. Hardwick History of carotid stenosis, last ultrasound was done in July 2017. Continue to monitor JORGE GONZALEZ DO Apr 02, 2018 05:56
[2018-04-02] MEDS: inSUlin ASPART (NovoLOG) 1 UNIT/0.01 ML (CHARGE PER UNIT) SC SCH ×4 (06:11→21:37)
[2018-04-02] MEDS: PANTOPRAZOLE 40 MG (PROTONIX) TAB PO SCH (07:37)
[2018-04-02] MEDS: hydrALAZINE (APRESOLINE) 25 MG TAB PO SCH ×3 (07:37→21:37)
[2018-04-02] MEDS: GLIMEPIRIDE 4 MG (AMARYL) TAB PO SCH (07:37)
[2018-04-02] MEDS: FERROUS SULF 325 MG (IRON) TAB PO SCH ×2 (07:37→17:15)
[2018-04-02] MEDS: FUROSEMIDE 40 MG/4 ML INJ (LASIX) IVP SCH ×2 (07:40→17:16)
[2018-04-02 08:00] VITALS: BP 135/65
[2018-04-02] MEDS ORDERED: VANCOMYCIN INJECTION 2,500 MG in NS IV 500 ML 500 ML IV NR (09:00)
[2018-04-02] MEDS: ASPIRIN E.C. 81 MG (ECOTRIN) TAB PO SCH (09:18)
[2018-04-02] MEDS: GABAPENTIN 600 MG (NEURONTIN) TAB PO SCH ×2 (09:18→21:37)
[2018-04-02] MEDS: amLODIPine 10 MG (NORVASC) TAB PO SCH (09:18)
[2018-04-02] MEDS: meTOprolol TARTRATE 50 MG (LOPRESSOR) TAB PO SCH ×2 (09:18→21:37)
[2018-04-02] MEDS: MICONAZOLE 2% POWDER (DESENEX AF) 90 GM TOP SCH ×2 (09:19→21:38)
[2018-04-02 11:57] LABS: BASOPHILS % (AUTO) 0 % (0-10); EOSINOPHILS # (AUTO) 0.7 10^3/uL (0.0-0.3); EOSINOPHILS % (AUTO) 8 % (0-10); HEMATOCRIT 28 % (40-54); HEMOGLOBIN 8.8 G/DL (13.3-17.7); LYMPHOCYTES # (AUTO) 0.7 X 10^3 (1.0-4.0); LYMPHOCYTES % (AUTO) 8 % (12-44); MEAN CORPUSCULAR HEMOGLOBIN 28 PG (25-34); MEAN CORPUSCULAR HGB CONC 31 G/DL (32-36); MEAN CORPUSCULAR VOLUME 90 FL (80-99); MEAN PLATELET VOLUME 10.5 FL (7.4-10.4); MONOCYTES # (AUTO) 0.6 X 10^3 (0.0-1.0); MONOCYTES % (AUTO) 7 % (0-12); NEUTROPHILS # (AUTO) 6.7 X 10^3 (1.8-7.8); NEUTROPHILS % (AUTO) 76 % (42-75); PLATELET COUNT 203 10^3/uL (130-400); RED BLOOD COUNT 3.14 10^6/uL (4.35-5.85); RED CELL DISTRIBUTION WIDTH 14.7 % (10.0-14.5); WHITE BLOOD COUNT 8.7 10^3/uL (4.3-11.0)
[2018-04-02 12:00] VITALS: BP 150/74
--- NOTE | 2018-04-02 12:04 | Progress Note-Standard ---
Standard Progress Note Progress Notes/Assess & Plan Date Seen by a Provider: Apr 02, 2018 Time Seen by a Provider: 10:40 Progress/Assessment & Plan I have been asked to see him to address this poor IV access. It is reasonable that a long-term access in the form of an [id number]-[id number]-Ijdd be placed. Several attempts for IV axis have been unsuccessful and he is uncomfortable to tolerate further attempts. The details of the procedure have been discussed with him and I have made the necessary arrangements with the anesthesia providers.Surgery scheduled for Tuesday the 29 of March I've been informed about positive blood cultures on samples obtained from his Jlgzlw-i-Hlvi. On examination, there is very minimal postoperative change around the incision. It is reasonable to administer intravenous vancomycin and possibly salvage his new Ymebyv-b-Cyki. Final Diagnosis poor venous access. Bacteremia Focused Exam Lactate Level 03/31/18 08:05: Lactic Acid Level 0.40L MALDONADO GUAMAN MD Apr 02, 2018 12:04
[2018-04-02 12:14] LABS: ALBUMIN 3.6 GM/DL (3.2-4.5); BILIRUBIN,TOTAL 0.5 MG/DL (0.1-1.0); CALCIUM 8.9 MG/DL (8.5-10.1); POTASSIUM 3.8 MMOL/L (3.6-5.0); TOTAL PROTEIN 5.8 GM/DL (6.4-8.2)
--- NOTE | 2018-04-02 12:19 | Cardiology Progress Note ---
Cardiology SOAP Progress Note Subjective: Improved shortness of breath. Objective: I&O/Vital Signs 04/02/18 04/02/18 04/02/18 04/02/18 04:00 06:48 08:00 09:00 Temp 98.3 99.5 Pulse 64 76 Resp 16 18 B/P (MAP) 130/63 (85) 135/65 (88) Pulse Ox 94 92 O2 Delivery Nasal Cannula NIV CPAP Nasal Cannula Nasal Cannula O2 Flow Rate 3.00 2.00 3.00 5.00 04/02/18 12:00 Temp 99.6 Pulse 72 Resp 18 B/P (MAP) 150/74 (99) Pulse Ox 96 O2 Delivery Nasal Cannula O2 Flow Rate 3.00 04/02/18 00:00 Intake Total 1390 ml Output Total 3350 ml Balance -1960 ml Weight (Pounds): 321 Weight (Ounces): 5.0 Weight (Calculated Kilograms): 145.211067 Constitutional: No appears stated age; AAO x 3; No apparent distress, No PERRL , No well-developed, No well-nourished, No other Respiratory: No accessory muscle use, No respiratory distress, No chest tender , No chest expansion is symmetric; chest is bilaterally symmetric; No lungs clear to percussion; lungs clear to auscultation; No crackles, No rhonchi, No rales, No stridor, No wheezing, No pleural rub, No other Cardiovascular: regular rate-rhythm; No irregularly irregular, No extra beats, No parasternal heave is noted, No JVD, No edema, No bradycardia, No tachycardia , No point of maximal impulse, No cardiac thrills are palpable; S1 and S2; No gallop/S3, No gallop/S4, No diastolic murmur, No systolic murmur, No friction rub, No click, No other Gastrointestional: No tender, No soft, No round, No distended, No pulsatile mass, No organomegaly, No guarding, No rebound, No tenderness, No hernia, No mass, No audible bowel sounds, No abnormal bowel sounds, No abdominal bruits, No spleenomegaly, No other Extremities: No normal range of motion, No non-tender, No normal inspection, No pedal edema, No calf tenderness, No normal capillary refill, No pelvis stable , No calf tenderness, No inflammation, No pedal edema, No slow capillary refill , No swelling, No other, No abrasion, No clubbing, No cyanosis, No ecchymosis, No laceration, No no lower extremity edema bilateral, No significant edema, No tenderness, No wound Neurologic/Psychiatric: no motor/sensory deficits, alert, normal mood/affect, oriented x 3 Skin: No normal color, No warm/dry, No cyanosis, No cool, No diaphoresis, No damp, No ecchymosis, No jaundice, No mottled, No pallor, No rash, No tattoos/ piercings, No ulcerations, No rash on exposed areas, No ulcerations on exposed areas, No other Results/Procedures: Labs Laboratory Tests 04/01/18 16:41: Glucometer 213H 04/01/18 22:02: Glucometer 177H 04/02/18 05:48: Glucometer 179H 04/02/18 11:12: Glucometer 222H 04/02/18 11:41: White Blood Count 8.7, Red Blood Count 3.14L, Hemoglobin 8.8L, Hematocrit 28L, Mean Corpuscular Volume 90, Mean Corpuscular Hemoglobin 28, Mean Corpuscular Hemoglobin Concent 31L, Red Cell Distribution Width 14.7H, Platelet Count 203, Mean Platelet Volume 10.5H, Neutrophils (%) (Auto) 76H, Lymphocytes (%) (Auto) 8L, Monocytes (%) (Auto) 7, Eosinophils (%) (Auto) 8, Basophils (%) (Auto) 0, Neutrophils # (Auto) 6.7, Lymphocytes # (Auto) 0.7L, Monocytes # (Auto) 0.6, Eosinophils # (Auto) 0.7H, Basophils # (Auto) 0.0, Sodium Level 143, Potassium Level 3.8, Chloride Level 99, Carbon Dioxide Level 30, Anion Gap 14, Blood Urea Nitrogen 72H, Creatinine 2.00H, Estimat Glomerular Filtration Rate 35, BUN/ Creatinine Ratio 36, Glucose Level 206H, Calcium Level 8.9, Corrected Calcium 9.2, Total Bilirubin 0.5, Aspartate Amino Transf (AST/SGOT) 11, Alanine Aminotransferase (ALT/SGPT) 12, Alkaline Phosphatase 83, Total Protein 5.8L, Albumin 3.6 Microbiology 03/31/18 Blood Culture - Preliminary, Resulted No growth 03/29/18 MRSA Screen - Final, Complete MRSA not isolated A/P: Assessment/Dx: Admission Diagnosis Anasarca Acute renal failure Anemia Coronary artery disease Plan: Assessment/Plan Anasarca, fluid overload. slow response to diuretics, worsening renal function , monitor closely Acute on chronic renal failure, diabetic nephropathy, Stop Zaroxolyn and decrease Lasix to once daily and continue to monitor, need nephrology evaluation outpatient. Anemia, possible transfusion today, followed by Dr. Bain as an outpatient Generalized weakness and loss of energy. PT were consulted Congestive heart failure, acute left ventricular systolic dysfunction, echocardiogram showed ejection fraction 45-50 percent, grade 2 diastolic dysfunction, dilated left atrium measuring 6.1 cm. Pulmonary hypertension with PA pressure of 35 mmHg. History of coronary artery disease, history of mid LAD stenting using Alpine 3.0 18 mm done in June 2017, mild to moderate disease in the proximal portion of the LAD, moderate disease at the distal circumflex artery. History of diabetes mellitus, diabetic neuropathy, followed and managed by primary care physician History of hyperlipidemia with intolerance to statin. Spinal stenosis, status post C3-7 ACDF with C5 corpectomy done by Dr. Hardwick History of carotid stenosis, last ultrasound was done in July 2017. Continue to monitor History of respiratory failure secondary to pneumonia. Dr. Perez to take over cardiology care from tomorrow. Thank you for your consultation. Please call me if you have any questions. Byron Matamoros MD, FACP, FACC, FSCAI, FHRS, CCDS Interventional Cardiology Cardiac Electrophysiology Vascular Medicine and Endovascular Interventions Focused Exam Lactate Level 03/31/18 08:05: Lactic Acid Level 0.40L Alma MATAMOROS MD Apr 02, 2018 12:19
--- NOTE | 2018-04-02 12:32 | Progress Note-Hospitalist ---
Subjective HPI/CC On Admission Date Seen by Provider: Apr 02, 2018 Time Seen by Provider: 11:15 Subjective/Events-last exam Microbiology had called me regarding a blood culture of coag-negative only from the port and both bottles and not in the peripheral so started vancomycin and had Dr. Regan evaluate the patient Patient desperately trying to get back to work at his job in [employer] Reports pain at the port site Bowels are moving Overall having no significant other issues but still anasarca is being managed Creat 2.0 today Review of Systems General: Fatigue Focused Exam Lactate Level 03/31/18 08:05: Lactic Acid Level 0.40L Objective Exam Vital Signs Vital Signs Date Time Temp Pulse Resp B/P (MAP) Pulse Ox O2 Delivery O2 Flow Rate FiO2 04/02/18 09:00 Nasal Cannula 5.00 04/02/18 08:00 99.5 76 18 135/65 (88) 92 Capillary Refill : Less Than 3 Seconds General Appearance: No Apparent Distress, WD/WN, Chronically ill, Obese Respiratory: Chest Non Tender, Lungs Clear, Normal Breath Sounds, No Accessory Muscle Use, No Respiratory Distress Cardiovascular: Regular Rate, Rhythm, No Gallop, No JVD, No Murmur, Normal Peripheral Pulses Extremity: Pedal Edema Neurologic/Psychiatric: Alert, Oriented x3, No Motor/Sensory Deficits, Depressed Affect Results/Procedures Lab Laboratory Tests 04/02/18 11:41 Patient resulted labs reviewed. Assessment/Plan Assessment and Plan Assess & Plan/Chief Complaint Assessment: Anasarca CRI Anemia Transfusion 2 days ago Neuropathy BCx + 2 bottles from port only placed on Vanc empirically Plan: Vanc Monitor labs Monitor creatinine Diagnosis/Problems Diagnosis/Problems (1) Bacteremia due to coagulase-negative Staphylococcus Status: Acute (2) Anasarca Status: Acute (3) Non-compliance Status: Chronic (4) Uncontrolled diabetes mellitus Status: Chronic Qualifiers: Diabetes mellitus type: type 2 Glycemic state: with hyperglycemia Qualified Codes: E11.65 - Type 2 diabetes mellitus with hyperglycemia (5) Apathy Status: Chronic (6) Peripheral neuropathy Status: Chronic Qualifiers: Peripheral neuropathy type: idiopathic neuropathy, unspecified Qualified Codes: G60.9 - Hereditary and idiopathic neuropathy, unspecified (7) Depression Status: Chronic Qualifiers: Depression Type: unspecified Qualified Codes: F32.9 - Major depressive disorder, single episode, unspecified (8) Anemia Status: Chronic Qualifiers: Anemia type: unspecified type Qualified Codes: D64.9 - Anemia, unspecified (9) Renal failure Status: Chronic Qualifiers: Renal failure chronicity: acute on chronic Acute renal failure type: unspecified Chronic kidney disease stage: stage 3 (moderate) Qualified Codes : N17.9 - Acute kidney failure, unspecified; N18.3 - Chronic kidney disease, stage 3 (moderate) (10) Port-A-Cath in place Status: Acute Clinical Quality Measures DVT/VTE Risk/Contraindication: Contraindications-Pharm: Other *list below* Contraindications-Mechi: Other *list below* JULY MIJARES DO Apr 02, 2018 12:32
[2018-04-02 16:01] VITALS: BP 129/64
[2018-04-02] MEDS: LORATADINE (CLARITIN) 10 MG TAB PO SCH (17:15)
[2018-04-02] MEDS: HYDROcodone/APAP 5 MG/325 MG (LORTAB) TAB PO PRN (17:15)
[2018-04-02 19:25] VITALS: BP 146/71
[2018-04-02] MEDS: ROSUVASTATIN 5 MG (CRESTOR) TABLET PO SCH (21:37)
[2018-04-03 00:12] VITALS: BP 145/69
[2018-04-03] MEDS: cefTRIAXone FOR IV USE 1,000 MG in NS (IVPB) 50 ML IV SCH (01:43)
[2018-04-03 04:08] VITALS: BP 139/67
[2018-04-03] MEDS: FERROUS SULF 325 MG (IRON) TAB PO SCH ×2 (06:43→16:21)
[2018-04-03] MEDS: GLIMEPIRIDE 4 MG (AMARYL) TAB PO SCH (06:43)
[2018-04-03] MEDS: PANTOPRAZOLE 40 MG (PROTONIX) TAB PO SCH (06:43)
[2018-04-03] MEDS: hydrALAZINE (APRESOLINE) 25 MG TAB PO SCH ×3 (06:43→21:05)
[2018-04-03] MEDS: FUROSEMIDE 40 MG/4 ML INJ (LASIX) IVP SCH ×2 (06:44→16:21)
[2018-04-03] MEDS: inSUlin ASPART (NovoLOG) 1 UNIT/0.01 ML (CHARGE PER UNIT) SC SCH ×4 (06:44→20:55)
--- NOTE | 2018-04-03 06:54 | Pulmonary Progress Note ---
Subjective Time Seen by a Provider: 06:53 Sepsis Event Evaluation Height, Weight, BMI Height: 5'11.00" Weight: 322lbs. 1.0oz. 146.776563oa; 46.7 BMI Method:Stated Focused Exam Lactate Level 03/31/18 08:05: Lactic Acid Level 0.40L Exam Exam Vital Signs Date Time Temp Pulse Resp B/P (MAP) Pulse Ox O2 Delivery O2 Flow Rate FiO2 04/03/18 04:08 99.0 84 17 139/67 (91) 94 Nasal Cannula 3.00 04/03/18 00:12 99.4 83 18 145/69 (94) 92 Nasal Cannula 3.00 04/02/18 21:00 Nasal Cannula 5.00 04/02/18 19:25 98.9 74 18 146/71 (96) 95 Nasal Cannula 3.00 04/02/18 17:45 99.6 04/02/18 16:01 99.6 75 18 129/64 (85) 96 Nasal Cannula 3.00 04/02/18 12:00 99.6 72 18 150/74 (99) 96 Nasal Cannula 3.00 04/02/18 09:00 Nasal Cannula 5.00 04/02/18 08:00 99.5 76 18 135/65 (88) 92 Nasal Cannula 3.00 I & O 04/03/18 07:00 Intake Total 2365 ml Output Total 3075 ml Balance -710 ml Height & Weight Height: 5'11.00" Weight: 322lbs. 1.0oz. 146.521885fc; 46.7 BMI Method:Stated General Appearance: No Apparent Distress, WD/WN, Chronically ill, Obese HEENT: Normal ENT Inspection Neck: Full Range of Motion, Normal Inspection Respiratory: Chest Non Tender, Lungs Clear, Normal Breath Sounds, No Accessory Muscle Use, No Respiratory Distress Cardiovascular: Regular Rate, Rhythm, No Gallop, No JVD, No Murmur, Normal Peripheral Pulses Gastrointestinal: non tender, soft Extremity: Pedal Edema Neurologic/Psychiatric: Alert, Oriented x3, No Motor/Sensory Deficits, Depressed Affect Skin: Normal Color, Warm/Dry Lymphatic: No Adenopathy Results Lab Laboratory Tests 04/02/18 11:41 Assessment/Plan Assessment/Plan Possible mediport infection -Dr. Regan consulted -Vancomycin was added pneumonia with atelectasis and hypoxia -Continue Abx Small bilateral pleural effusions Anasarca -Lasix Acute renal failure -monitor close CAD Anemia -S/p transfusion DM CHF EF 45-50% grade 2 diastolic failure with pulmonary HTN Spinal stenosis, status post C3-7 ACDF with C5 corpectomy done by Dr. Hardwick History of carotid stenosis, last ultrasound was done in July 2017. Continue to monitor JORGE GONZALEZ DO Apr 03, 2018 06:54
[2018-04-03 07:02] LABS: BASOPHILS % (AUTO) 0 % (0-10); EOSINOPHILS # (AUTO) 0.6 10^3/uL (0.0-0.3); EOSINOPHILS % (AUTO) 8 % (0-10); HEMATOCRIT 27 % (40-54); HEMOGLOBIN 8.2 G/DL (13.3-17.7); LYMPHOCYTES # (AUTO) 0.6 X 10^3 (1.0-4.0); LYMPHOCYTES % (AUTO) 9 % (12-44); MEAN CORPUSCULAR HEMOGLOBIN 28 PG (25-34); MEAN CORPUSCULAR HGB CONC 31 G/DL (32-36); MEAN CORPUSCULAR VOLUME 91 FL (80-99); MEAN PLATELET VOLUME 10.7 FL (7.4-10.4); MONOCYTES # (AUTO) 0.6 X 10^3 (0.0-1.0); MONOCYTES % (AUTO) 7 % (0-12); NEUTROPHILS # (AUTO) 5.6 X 10^3 (1.8-7.8); NEUTROPHILS % (AUTO) 76 % (42-75); PLATELET COUNT 187 10^3/uL (130-400); RED BLOOD COUNT 2.91 10^6/uL (4.35-5.85); RED CELL DISTRIBUTION WIDTH 14.6 % (10.0-14.5); WHITE BLOOD COUNT 7.4 10^3/uL (4.3-11.0)
[2018-04-03 07:21] LABS: ALBUMIN 3.4 GM/DL (3.2-4.5); BILIRUBIN,TOTAL 0.5 MG/DL (0.1-1.0); CALCIUM 8.7 MG/DL (8.5-10.1); CREATININE SERUM 1.9 MG/DL (0.60-1.30); POTASSIUM 3.6 MMOL/L (3.6-5.0); TOTAL PROTEIN 5.6 GM/DL (6.4-8.2)
[2018-04-03 08:00] VITALS: BP 152/73
--- NOTE | 2018-04-03 08:23 | Progress Note (SOAP) ---
Subjective Time Seen by a Provider: 08:20 Subjective/Events-last exam Patient having neuropathy with a decrease Neurontin Patient temperature 90.9 degrees. White blood cell count normal. Portal chest looks bruised noninfected appearing. GFR 37 better Objective Exam Vital Signs Date Time Temp Pulse Resp B/P (MAP) Pulse Ox O2 Delivery O2 Flow Rate FiO2 04/03/18 04:08 99.0 84 17 139/67 (91) 94 Nasal Cannula 3.00 04/03/18 00:12 99.4 83 18 145/69 (94) 92 Nasal Cannula 3.00 04/02/18 21:00 Nasal Cannula 5.00 04/02/18 19:25 98.9 74 18 146/71 (96) 95 Nasal Cannula 3.00 04/02/18 17:45 99.6 04/02/18 16:01 99.6 75 18 129/64 (85) 96 Nasal Cannula 3.00 04/02/18 12:00 99.6 72 18 150/74 (99) 96 Nasal Cannula 3.00 04/02/18 09:00 Nasal Cannula 5.00 I & O 04/03/18 07:00 Intake Total 2365 ml Output Total 3075 ml Balance -710 ml Capillary Refill : Less Than 3 Seconds General Appearance: No Apparent Distress, WD/WN HEENT: Normal ENT Inspection Neck: Full Range of Motion Respiratory: Lungs Clear, No Accessory Muscle Use Cardiovascular: Regular Rate, Rhythm Gastrointestinal: non tender, soft Results Lab Laboratory Tests 04/02/18 11:41 04/03/18 06:31 Laboratory Tests 04/02/18 11:12: Glucometer 222H 04/02/18 11:41: White Blood Count 8.7, Red Blood Count 3.14L, Hemoglobin 8.8L, Hematocrit 28L, Mean Corpuscular Volume 90, Mean Corpuscular Hemoglobin 28, Mean Corpuscular Hemoglobin Concent 31L, Red Cell Distribution Width 14.7H, Platelet Count 203, Mean Platelet Volume 10.5H, Neutrophils (%) (Auto) 76H, Lymphocytes (%) (Auto) 8L, Monocytes (%) (Auto) 7, Eosinophils (%) (Auto) 8, Basophils (%) (Auto) 0, Neutrophils # (Auto) 6.7, Lymphocytes # (Auto) 0.7L, Monocytes # (Auto) 0.6, Eosinophils # (Auto) 0.7H, Basophils # (Auto) 0.0, Sodium Level 143, Potassium Level 3.8, Chloride Level 99, Carbon Dioxide Level 30, Anion Gap 14, Blood Urea Nitrogen 72H, Creatinine 2.00H, Estimat Glomerular Filtration Rate 35, BUN/ Creatinine Ratio 36, Glucose Level 206H, Calcium Level 8.9, Corrected Calcium 9.2, Total Bilirubin 0.5, Aspartate Amino Transf (AST/SGOT) 11, Alanine Aminotransferase (ALT/SGPT) 12, Alkaline Phosphatase 83, Total Protein 5.8L, Albumin 3.6 04/02/18 16:01: Glucometer 195H 04/02/18 21:23: Glucometer 247H 04/03/18 05:20: Glucometer 199H 04/03/18 06:31: White Blood Count 7.4, Red Blood Count 2.91L, Hemoglobin 8.2L, Hematocrit 27L, Mean Corpuscular Volume 91, Mean Corpuscular Hemoglobin 28, Mean Corpuscular Hemoglobin Concent 31L, Red Cell Distribution Width 14.6H, Platelet Count 187, Mean Platelet Volume 10.7H, Neutrophils (%) (Auto) 76H, Lymphocytes (%) (Auto) 9L, Monocytes (%) (Auto) 7, Eosinophils (%) (Auto) 8, Basophils (%) (Auto) 0, Neutrophils # (Auto) 5.6, Lymphocytes # (Auto) 0.6L, Monocytes # (Auto) 0.6, Eosinophils # (Auto) 0.6H, Basophils # (Auto) 0.0, Sodium Level 143, Potassium Level 3.6, Chloride Level 99, Carbon Dioxide Level 29, Anion Gap 15H, Blood Urea Nitrogen 74H, Creatinine 1.90H, Estimat Glomerular Filtration Rate 37, BUN/ Creatinine Ratio 39, Glucose Level 166H, Calcium Level 8.7, Corrected Calcium 9.2, Total Bilirubin 0.5, Aspartate Amino Transf (AST/SGOT) 16, Alanine Aminotransferase (ALT/SGPT) 13, Alkaline Phosphatase 83, Total Protein 5.6L, Albumin 3.4 Microbiology 03/31/18 Blood Culture - Preliminary, Resulted No growth 03/29/18 MRSA Screen - Final, Complete MRSA not isolated Assessment/Plan Assessment/Plan Assess & Plan/Chief Complaint Anasarca. Renal insufficiency. Anemia. Diabetes. 53 pound weight gain since cervical surgery. Shortness of breath. . 03/29/18. Anasarca. Renal insufficiency. Anemia Diabetes. Shortness of breath. Patient to have a port put in today. . 03/30/18. Anasarca. Renal failure. Anemia. CAD. Diabetes. Hyperlipidemia.. . 03/31/18. Anasarca. Renal insufficiency. Anemia. Coronary artery disease. Diabetes. Hyperlipidemia. Febrile. Temperature over 102 last night. Anemia getting worse.. . 04/03/18. Renal insufficiency. Anasarca. Patient swelling going down. Scrotum is smaller. He has less swelling. To redo blood cultures from port. Diabetes. Patient not febrile this morning Clinical Quality Measures Admission Status Admission Dx Anasarca. Diabetes. Renal insufficiency. Weight gain of. Coronary artery disease 54 Patient gained 54 pounds since cervical surgery. Short of breath DVT/VTE Risk/Contraindication: Contraindications-Pharm: Other *list below* Contraindications-Mechi: Other *list below* MARIIA SIM DO Apr 03, 2018 08:23
--- NOTE | 2018-04-03 08:26 | Cardiology Progress Note ---
Subjective Date Seen by Provider: Apr 03, 2018 Time Seen by Provider: 08:24 Subjective/Events-last exam Patient is in bed, feeling better, still having edema, low grade fever Review of Systems General: No Chills, No Night Sweats, No Fatigue, No Malaise, No Appetite, No Other HEENT: No Head Aches, No Visual Changes, No Eye Pain, No Ear Pain, No Dysphasia , No Sinus Congestion, No Post Nasal Drip, No Sore Throat, No Other Pulmonary: Dyspnea; No Cough, No Pleuritic Chest Pain, No Other Cardiovascular: Edema Objective-Cardiology Exam Last Set of Vital Signs Vital Signs 04/03/18 04:08 Temp 99.0 Pulse 84 Resp 17 B/P (MAP) 139/67 (91) Pulse Ox 94 O2 Delivery Nasal Cannula O2 Flow Rate 3.00 Capillary Refill : Less Than 3 Seconds I&O Intake and Output 04/03/18 00:00 Intake Total 2465 ml Output Total 3175 ml Balance -710 ml Intake Oral 1940 ml IV Total 525 ml Output Urine Total 3175 ml # Bowel Movements 3 General: Alert, Oriented X3, Cooperative HEENT: Atraumatic, PERRLA Neck: Supple, No JVD, No Thyromegaly Lungs: Clear to Auscultation, Normal Air Movement Heart: Regular Rate, Normal S1, Normal S2, No Murmurs Abdomen: Normal Bowel Sounds, Soft, No Tenderness, No Hepatosplenomegaly, No Masses Extremities: No Clubbing, No Cyanosis, Normal Pulses, No Tenderness/Swelling, Other (+2-3 pitting edema) Skin: No Rashes, No Breakdown, No Significant Lesion Neuro: Normal Speech, Cranial Nerves 3-12 NL Psych/Mental Status: Mental Status NL, Mood NL Results Lab Laboratory Tests 04/02/18 11:41 04/03/18 06:31 A/P-Cardiology Admission Diagnosis Anasarca Acute renal failure Anemia Coronary artery disease Assessment/Plan Anasarca, responding well to lasix, continue to monitor Low-grade fever, had 2 sets of blood culture, one set from the port grew coag- negative, the peripheral set did not grew any bacteria. No white count, patient received antibiotic, discussed the management plan with Dr. Younger, might need to replace the port, continue to monitor at this time Acute on chronic renal failure, diabetic nephropathy, slightly better at this time. Continue to monitor Anemia, received blood transfusion, monitor H&H Generalized weakness and loss of energy, continue with therapy Congestive heart failure, acute left ventricular systolic dysfunction, echocardiogram showed ejection fraction 45-50 percent, grade 2 diastolic dysfunction, dilated left atrium measuring 6.1 cm. Pulmonary hypertension with PA pressure of 35 mmHg. History of coronary artery disease, history of mid LAD stenting using Alpine 3.0 18 mm done in June 2017, mild to moderate disease in the proximal portion of the LAD, moderate disease at the distal circumflex artery. I will consider repeating his stress test once more stable History of diabetes mellitus, diabetic neuropathy, followed and managed by primary care physician History of hyperlipidemia with intolerance to statin. Spinal stenosis, status post C3-7 ACDF with C5 corpectomy done by Dr. Hardwick History of carotid stenosis, last ultrasound was done in July 2017. Continue to monitor History of respiratory failure secondary to pneumonia. Was managed by Dr. Gao previously, will consult Dr. Gao for evaluation Clinical Quality Measures DVT/VTE Risk/Contraindication: Contraindications-Pharm: Other *list below* Contraindications-Mechi: Other *list below* KAREN YANG MD Apr 03, 2018 08:26
[2018-04-03] MEDS: GABAPENTIN 600 MG (NEURONTIN) TAB PO SCH ×4 (08:30→20:55)
[2018-04-03] MEDS: VANCOMYCIN INJECTION 2,000 MG in NS IV 500 ML 500 ML IV SCH (09:12)
[2018-04-03] MEDS: ASPIRIN E.C. 81 MG (ECOTRIN) TAB PO SCH (09:12)
[2018-04-03] MEDS: meTOprolol TARTRATE 50 MG (LOPRESSOR) TAB PO SCH ×2 (09:13→20:55)
[2018-04-03] MEDS: MICONAZOLE 2% POWDER (DESENEX AF) 90 GM TOP SCH ×2 (09:13→20:56)
[2018-04-03] MEDS: amLODIPine 10 MG (NORVASC) TAB PO SCH (09:13)
--- NOTE | 2018-04-03 11:03 | Physical Therapy Daily Note ---
PT Daily Note-Current Subjective Patient was awake in bed when PT arrived. Patient agreed to get up and walk. Pain Numeric Pain Scale: 0-No Pain Mental Status Patient Orientation: Normal For Age Attachments: Oxygen, IV Transfers Functional [place] Measure 0=Not Assessed/NA 4=Minimal Assistance 1=Total Assistance 5=Supervision or Setup 2=Maximal Assistance 6=Modified [place] 3=Moderate Assistance 7=Complete IndependenceIRFPAI Quality Coding Scale 6 Independent with activity with or without an assistive device 5 Patient requires set up or clean up by helper. Patient completes activity by themselves 4 Supervision or touching assist (CGA). [place] provide cues , steadying assist 3 The helper provides less than half the effort to complete the activity 2 The helper provides more than half the effort to complete the activity 1 Dependent. The helper does all the effort to complete an activity 7 Patient refused to complete or attempt activity 9 The patient did not perform the activity before the current illness or injury 88 Not attempted due to Medical conditions or safety concerns Transfers (B, C, W/C) (FIM): 6 Scootin Rollin Supine to/from Sit: 6 Sit to/from Stand: 6 Weight Bearing Right Lower Extremity: Right Weight Bearing/Tolerated Left Lower Extremity: Left Weight Bearing/Tolerated Gait Training Gait (FIM): 5 Distance (FIM): 3=150 ft Distance: 150' Gait Level of Assist: 5 Gait Persons Needed: 1 Gait Assistive Device: FWW WBOS/multiple standing recovery periods due to fatigue Exercises Standing: Sit to Stand Standing Reps: 5 Assessment Patient able to ambulate for 150ft but does show some fatigue towards the end. Patient requires supervision only while ambulating. PT Bowling Alley Manager Goals Bowling Alley Manager Goals PT Prison Goals Time Frame: Apr 07, 2018 Transfers (B,C,W/C) (FIM): 6 Gait (FIM): 6 Gait distance (FIM): 3=150 ft Distance: 200' Gait Level of Assist: 6 Gait Assistive Device: FWW PT Plan Treatment/Plan Treatment Plan: Continue Plan of Care Treatment Plan: Bed Mobility, Education, Functional Activity [place], Functional Strength, Gait, Safety, Therapeutic Exercise, Transfers Treatment Duration: Apr 07, 2018 Frequency: 6 times per week Estimated Hrs Per Day: .25 hour per day Patient and/or Family Agrees t: Yes Time/GCodes Time In: 1031 Time Out: 1049 Total Billed Treatment Time: 18 Total Billed Treatment 1 visit FA 18 mins MARK RAMIREZ PT Apr 03, 2018 11:03
[2018-04-03 12:00] VITALS: BP 157/74
[2018-04-03 16:00] VITALS: BP 134/68
[2018-04-03] MEDS: LORATADINE (CLARITIN) 10 MG TAB PO SCH (16:21)
[2018-04-03 20:38] VITALS: BP 148/72
[2018-04-03] MEDS: ROSUVASTATIN 5 MG (CRESTOR) TABLET PO SCH (20:54)
[2018-04-04] VITALS: BP 152/68
[2018-04-04] MEDS: cefTRIAXone FOR IV USE 1,000 MG in NS (IVPB) 50 ML IV SCH (00:58)
[2018-04-04 04:00] VITALS: BP 129/74
[2018-04-04] MEDS: inSUlin ASPART (NovoLOG) 1 UNIT/0.01 ML (CHARGE PER UNIT) SC SCH ×4 (05:21→21:20)
[2018-04-04] MEDS: FUROSEMIDE 40 MG/4 ML INJ (LASIX) IVP SCH ×2 (06:39→16:42)
[2018-04-04] MEDS: GLIMEPIRIDE 4 MG (AMARYL) TAB PO SCH (06:39)
[2018-04-04] MEDS: hydrALAZINE (APRESOLINE) 25 MG TAB PO SCH ×3 (06:39→21:20)
[2018-04-04] MEDS: PANTOPRAZOLE 40 MG (PROTONIX) TAB PO SCH (06:39)
[2018-04-04] MEDS: FERROUS SULF 325 MG (IRON) TAB PO SCH ×2 (06:39→16:42)
--- NOTE | 2018-04-04 07:29 | Cardiology Progress Note ---
Subjective Date Seen by Provider: Apr 04, 2018 Time Seen by Provider: 07:27 Subjective/Events-last exam Patient is sitting in a chair, feeling better today, still losing weight and improving slowly. No fever at this time. Review of Systems General: No Chills, No Night Sweats; Fatigue, Malaise; No Appetite, No Other HEENT: No Head Aches, No Visual Changes, No Eye Pain, No Ear Pain, No Dysphasia , No Sinus Congestion, No Post Nasal Drip, No Sore Throat, No Other Pulmonary: No Dyspnea, No Cough, No Pleuritic Chest Pain, No Other Cardiovascular: Edema; No: Chest Pain, Palpitations, Orthopnea, Paroxysmal Noc. Dyspnea, Lt Headedness, Other Objective-Cardiology Exam Last Set of Vital Signs Vital Signs 04/03/18 04/04/18 20:38 04:00 Temp 98.4 Pulse 69 Resp 20 B/P (MAP) 129/74 (92) Pulse Ox 93 O2 Delivery NIV CPAP O2 Flow Rate 3.00 Capillary Refill : Less Than 3 Seconds I&O Intake and Output 04/04/18 00:00 Intake Total 2660 ml Output Total 1550 ml Balance 1110 ml Intake Oral 2140 ml IV Total 520 ml Output Urine Total 1550 ml # Voids 6 # Bowel Movements 2 General: Alert, Oriented X3, Cooperative HEENT: Atraumatic, PERRLA Neck: Supple, No JVD, No Thyromegaly Lungs: Clear to Auscultation, Normal Air Movement Heart: Regular Rate, Normal S1, Normal S2, No Murmurs Abdomen: Normal Bowel Sounds, Soft, No Tenderness, No Hepatosplenomegaly, No Masses Extremities: No Clubbing, No Cyanosis, Normal Pulses, No Tenderness/Swelling, Other (+2-3 pitting edema) Skin: No Rashes, No Breakdown, No Significant Lesion Neuro: Normal Speech, Cranial Nerves 3-12 NL Psych/Mental Status: Mental Status NL, Mood NL Results Lab Laboratory Tests Test 04/03/18 11:02 04/03/18 12:00 04/03/18 14:30 04/03/18 16:03 Range/Units Glucometer 188 H 187 H 70-110 MG/DL Lab Scanned Report Transfusion Reaction Form [id number] Stool Occult Blood Immunoassay POSITIVE H NEGATIVE Test 04/03/18 20:38 10/23/18 05:08 Range/Units Glucometer 235 H 141 H 70-110 MG/DL A/P-Cardiology Admission Diagnosis Anasarca Acute renal failure Anemia Coronary artery disease Assessment/Plan Anasarca, improving with aggressive diuresis. Continue to monitor. Encouraged compliance with diet and limiting fluid intake. Low-grade fever, had 2 sets of blood culture, one set from the port grew coag- negative staph, the peripheral set did not grew any bacteria. No white count, patient received antibiotic, discussed the management plan with Dr. Younger, might need to replace the port, continue to monitor at this time Acute on chronic renal failure, diabetic nephropathy, slightly better at this time. Continue to monitor Anemia, received blood transfusion, monitor H&H Generalized weakness and loss of energy, continue with therapy Congestive heart failure, acute left ventricular systolic dysfunction, echocardiogram showed ejection fraction 45-50 percent, grade 2 diastolic dysfunction, dilated left atrium measuring 6.1 cm. Pulmonary hypertension with PA pressure of 35 mmHg. History of coronary artery disease, history of mid LAD stenting using Alpine 3.0 18 mm done in June 2017, mild to moderate disease in the proximal portion of the LAD, moderate disease at the distal circumflex artery. I will consider repeating his stress test once more stable History of diabetes mellitus, diabetic neuropathy, followed and managed by primary care physician History of hyperlipidemia with intolerance to statin. Spinal stenosis, status post C3-7 ACDF with C5 corpectomy done by Dr. Hardwick History of carotid stenosis, last ultrasound was done in July 2017. Continue to monitor History of respiratory failure secondary to pneumonia. Was managed by Dr. Gao previously, will consult Dr. Gao for evaluation Clinical Quality Measures DVT/VTE Risk/Contraindication: Contraindications-Pharm: Other *list below* Contraindications-Mechi: Other *list below* KAREN YANG MD Apr 04, 2018 07:29
--- NOTE | 2018-04-04 07:41 | Pulmonary Progress Note ---
Subjective Time Seen by a Provider: 07:41 Sepsis Event Evaluation Height, Weight, BMI Height: 5'11.00" Weight: 319lbs. 1.0oz. 144.556555yn; 46.7 BMI Method:Stated Exam Exam Vital Signs Date Time Temp Pulse Resp B/P (MAP) Pulse Ox O2 Delivery O2 Flow Rate FiO2 04/04/18 04:00 98.4 69 20 129/74 (92) 93 NIV CPAP 04/04/18 00:00 98.4 76 16 152/68 (96) 96 NIV CPAP 04/03/18 20:38 99.0 76 18 148/72 (97) 92 Nasal Cannula 3.00 04/03/18 19:45 Nasal Cannula 5.00 04/03/18 16:00 96.6 77 16 134/68 (90) 94 Nasal Cannula 3.00 04/03/18 12:00 99.1 75 16 157/74 (101) 98 Nasal Cannula 3.00 04/03/18 09:00 Nasal Cannula 5.00 04/03/18 08:00 100.4 84 20 152/73 (99) 95 Nasal Cannula 3.00 I & O 04/04/18 07:00 Intake Total 2260 ml Output Total 700 ml Balance 1560 ml Height & Weight Height: 5'11.00" Weight: 319lbs. 1.0oz. 144.602395fe; 46.7 BMI Method:Stated General Appearance: No Apparent Distress, WD/WN, Chronically ill, Obese HEENT: Normal ENT Inspection Neck: Full Range of Motion, Normal Inspection Respiratory: Chest Non Tender, Lungs Clear, Normal Breath Sounds, No Accessory Muscle Use, No Respiratory Distress Cardiovascular: Regular Rate, Rhythm, No Gallop, No JVD, No Murmur, Normal Peripheral Pulses Gastrointestinal: non tender, soft Extremity: Pedal Edema Neurologic/Psychiatric: Alert, Oriented x3, No Motor/Sensory Deficits, Depressed Affect Skin: Normal Color, Warm/Dry Lymphatic: No Adenopathy Results Lab Laboratory Tests 04/02/18 11:41 04/03/18 06:31 Assessment/Plan Assessment/Plan Possible mediport infection -Dr. Regan consulted -Vancomycin pneumonia with atelectasis and hypoxia -Continue Abx -repeat CT scan as out patient in 2months Small bilateral pleural effusions Anasarca -Lasix Acute renal failure -monitor close CAD Anemia -S/p transfusion DM CHF EF 45-50% grade 2 diastolic failure with pulmonary HTN Spinal stenosis, status post C3-7 ACDF with C5 corpectomy done by Dr. Hardwick History of carotid stenosis, last ultrasound was done in July 2017. Continue to monitor JORGE GONZALEZ DO Apr 04, 2018 07:41
[2018-04-04 08:00] VITALS: BP 157/73
[2018-04-04] MEDS ORDERED: TROUGH ORDER-PHARMACY XX NR (08:00)
--- NOTE | 2018-04-04 08:00 | Progress Note (SOAP) ---
Subjective Time Seen by a Provider: 07:58 Subjective/Events-last exam Patient feeling better. Patient sitting in chair. Patient walking around. Patient lost more weight. Patient positive. Blood tests not on chart yet Objective Exam Vital Signs Date Time Temp Pulse Resp B/P (MAP) Pulse Ox O2 Delivery O2 Flow Rate FiO2 04/04/18 04:00 98.4 69 20 129/74 (92) 93 NIV CPAP 04/04/18 00:00 98.4 76 16 152/68 (96) 96 NIV CPAP 04/03/18 20:38 99.0 76 18 148/72 (97) 92 Nasal Cannula 3.00 04/03/18 19:45 Nasal Cannula 5.00 04/03/18 16:00 96.6 77 16 134/68 (90) 94 Nasal Cannula 3.00 04/03/18 12:00 99.1 75 16 157/74 (101) 98 Nasal Cannula 3.00 04/03/18 09:00 Nasal Cannula 5.00 04/03/18 08:00 100.4 84 20 152/73 (99) 95 Nasal Cannula 3.00 I & O 04/04/18 07:00 Intake Total 2260 ml Output Total 700 ml Balance 1560 ml Capillary Refill : Less Than 3 Seconds General Appearance: No Apparent Distress, WD/WN HEENT: Normal ENT Inspection Neck: Full Range of Motion, Normal Inspection Respiratory: Lungs Clear, No Accessory Muscle Use, No Respiratory Distress Cardiovascular: Regular Rate, Rhythm, No Murmur Gastrointestinal: non tender, soft Results Lab Laboratory Tests 04/03/18 11:02: Glucometer 188H 04/03/18 12:00: Lab Scanned Report Transfusion Reaction Form 04/03/18 14:30: Stool Occult Blood Immunoassay POSITIVEH 04/03/18 16:03: Glucometer 187H 04/03/18 20:38: Glucometer 235H 04/04/18 05:08: Glucometer 141H Microbiology 03/31/18 Blood Culture - Preliminary, Resulted No growth 04/03/18 C. difficile GDH Antigen & Toxins - Final, Complete 03/29/18 MRSA Screen - Final, Complete MRSA not isolated Assessment/Plan Assessment/Plan Assess & Plan/Chief Complaint Anasarca. Renal insufficiency. Anemia. Diabetes. 53 pound weight gain since cervical surgery. Shortness of breath. . 03/29/18. Anasarca. Renal insufficiency. Anemia Diabetes. Shortness of breath. Patient to have a port put in today. . 03/30/18. Anasarca. Renal failure. Anemia. CAD. Diabetes. Hyperlipidemia.. . 03/31/18. Anasarca. Renal insufficiency. Anemia. Coronary artery disease. Diabetes. Hyperlipidemia. Febrile. Temperature over 102 last night. Anemia getting worse.. . 04/03/18. Renal insufficiency. Anasarca. Patient swelling going down. Scrotum is smaller. He has less swelling. To redo blood cultures from port. Diabetes. Patient not febrile this morning. . 04/04/18. Patient feeling better. Patient losing more weight. Swelling and legs going down. Renal insufficiency. Anasarca. Diabetes. Patient walking around with walker Clinical Quality Measures Admission Status Admission Dx Anasarca. Diabetes. Renal insufficiency. Weight gain of. Coronary artery disease 54 Patient gained 54 pounds since cervical surgery. Short of breath DVT/VTE Risk/Contraindication: Contraindications-Pharm: Other *list below* Contraindications-Mechi: Other *list below* MARIIA SIM DO Apr 04, 2018 08:00
[2018-04-04] MEDS: GABAPENTIN 600 MG (NEURONTIN) TAB PO SCH ×3 (09:10→21:20)
[2018-04-04] MEDS: ASPIRIN E.C. 81 MG (ECOTRIN) TAB PO SCH (09:11)
[2018-04-04] MEDS: meTOprolol TARTRATE 50 MG (LOPRESSOR) TAB PO SCH ×2 (09:11→21:20)
[2018-04-04] MEDS: amLODIPine 10 MG (NORVASC) TAB PO SCH (09:12)
[2018-04-04] MEDS: MICONAZOLE 2% POWDER (DESENEX AF) 90 GM TOP SCH ×2 (09:13→21:22)
[2018-04-04] MEDS ORDERED: METOLAZONE 5 MG (ZAROXOLYN) TAB PO NR (09:15)
[2018-04-04 09:27] LABS: BASOPHILS % (AUTO) 0 % (0-10); EOSINOPHILS # (AUTO) 0.6 10^3/uL (0.0-0.3); EOSINOPHILS % (AUTO) 7 % (0-10); HEMATOCRIT 29 % (40-54); HEMOGLOBIN 8.8 G/DL (13.3-17.7); LYMPHOCYTES # (AUTO) 0.7 X 10^3 (1.0-4.0); LYMPHOCYTES % (AUTO) 8 % (12-44); MEAN CORPUSCULAR HEMOGLOBIN 28 PG (25-34); MEAN CORPUSCULAR HGB CONC 31 G/DL (32-36); MEAN CORPUSCULAR VOLUME 91 FL (80-99); MEAN PLATELET VOLUME 10.5 FL (7.4-10.4); MONOCYTES # (AUTO) 0.6 X 10^3 (0.0-1.0); MONOCYTES % (AUTO) 7 % (0-12); NEUTROPHILS # (AUTO) 6.5 X 10^3 (1.8-7.8); NEUTROPHILS % (AUTO) 78 % (42-75); PLATELET COUNT 189 10^3/uL (130-400); RED BLOOD COUNT 3.15 10^6/uL (4.35-5.85); RED CELL DISTRIBUTION WIDTH 14.3 % (10.0-14.5); WHITE BLOOD COUNT 8.4 10^3/uL (4.3-11.0)
[2018-04-04 09:49] LABS: CALCIUM 9.1 MG/DL (8.5-10.1); CREATININE SERUM 1.83 MG/DL (0.60-1.30); POTASSIUM 3.7 MMOL/L (3.6-5.0)
[2018-04-04] MEDS: VANCOMYCIN INJECTION 2,000 MG in NS IV 500 ML 500 ML IV SCH (10:20)
--- NOTE | 2018-04-04 10:43 | Physical Therapy Daily Note ---
PT Daily Note-Current Subjective Pt was awake in chair watching tv. Pt agreed to walk for PT. Pain Numeric Pain Scale: 0-No Pain Location: No Pain Reported Transfers Functional [place] Measure 0=Not Assessed/NA 4=Minimal Assistance 1=Total Assistance 5=Supervision or Setup 2=Maximal Assistance 6=Modified [place] 3=Moderate Assistance 7=Complete IndependenceIRFPAI Quality Coding Scale 6 Independent with activity with or without an assistive device 5 Patient requires set up or clean up by helper. Patient completes activity by themselves 4 Supervision or touching assist (CGA). [place] provide cues , steadying assist 3 The helper provides less than half the effort to complete the activity 2 The helper provides more than half the effort to complete the activity 1 Dependent. The helper does all the effort to complete an activity 7 Patient refused to complete or attempt activity 9 The patient did not perform the activity before the current illness or injury 88 Not attempted due to Medical conditions or safety concerns Transfers (B, C, W/C) (FIM): 5 Sit to/from Stand: 5 Weight Bearing Right Lower Extremity: Right Weight Bearing/Tolerated Left Lower Extremity: Left Weight Bearing/Tolerated Gait Training Gait (FIM): 5 Distance (FIM): 3=150 ft Distance: 200' Gait Level of Assist: 5 Gait Persons Needed: 1 Gait Assistive Device: FWW Assessment Patient was able to ambulate for 200ft with a FWW on oxygen. Pt did not show any fatigue throughout duration for ambulation. PT Senior Care Goals Rotary Lithographic Press Operator Goals PT Senior Care Goals Time Frame: Apr 07, 2018 Transfers (B,C,W/C) (FIM): 6 Gait (FIM): 6 Gait distance (FIM): 3=150 ft Distance: 200' Gait Level of Assist: 6 Gait Assistive Device: FWW PT Plan Treatment/Plan Treatment Plan: Continue Plan of Care Treatment Plan: Bed Mobility, Education, Functional Activity [place], Functional Strength, Gait, Safety, Therapeutic Exercise, Transfers Treatment Duration: Apr 07, 2018 Frequency: 6 times per week Estimated Hrs Per Day: .25 hour per day Patient and/or Family Agrees t: Yes Time/GCodes Time In: 1000 Time Out: 1013 Total Billed Treatment Time: 13 Total Billed Treatment 1 visit FA - 13 mins MARK RAMIREZ PT Apr 04, 2018 10:43
[2018-04-04 12:00] VITALS: BP 138/70
[2018-04-04 16:00] VITALS: BP 146/70
[2018-04-04] MEDS: LORATADINE (CLARITIN) 10 MG TAB PO SCH (16:42)
[2018-04-04 19:50] VITALS: BP 167/75
[2018-04-04] MEDS: ROSUVASTATIN 5 MG (CRESTOR) TABLET PO SCH (21:20)
[2018-04-05] VITALS (7 sets, daily range): BP systolic 127–145; BP diastolic 65–75
[2018-04-05] MEDS: cefTRIAXone FOR IV USE 1,000 MG in NS (IVPB) 50 ML IV SCH (01:19)
[2018-04-05 05:09] LABS: HEMOGLOBIN 8.2 G/DL (13.3-17.7); MEAN PLATELET VOLUME 11.1 FL (7.4-10.4); RED BLOOD COUNT 2.94 10^6/uL (4.35-5.85); RED CELL DISTRIBUTION WIDTH 14.3 % (10.0-14.5); WHITE BLOOD COUNT 7.2 10^3/uL (4.3-11.0)
[2018-04-05 05:45] LABS: ALBUMIN 3.4 GM/DL (3.2-4.5); BILIRUBIN,TOTAL 0.5 MG/DL (0.1-1.0); CREATININE SERUM 1.82 MG/DL (0.60-1.30); POTASSIUM 3.7 MMOL/L (3.6-5.0); TOTAL PROTEIN 5.7 GM/DL (6.4-8.2)
--- NOTE | 2018-04-05 06:36 | Pulmonary Progress Note ---
Subjective Time Seen by a Provider: 06:36 Subjective/Events-last exam no complications noted. Sepsis Event Evaluation Height, Weight, BMI Height: 5'11.00" Weight: 315lbs. 4.0oz. 142.031445cl; 46.7 BMI Method:Stated Exam Exam Vital Signs Date Time Temp Pulse Resp B/P (MAP) Pulse Ox O2 Delivery O2 Flow Rate FiO2 04/05/18 04:03 99.1 78 19 130/70 (90) 92 Nasal Cannula 3.00 04/05/18 00:03 98.4 70 19 141/75 (97) 96 Nasal Cannula 3.00 04/04/18 20:00 Nasal Cannula 3.00 04/04/18 19:50 98.1 77 14 167/75 (105) 98 Nasal Cannula 3.00 04/04/18 16:19 3.00 04/04/18 16:00 99.1 71 18 146/70 (95) 92 Nasal Cannula 3.00 04/04/18 12:00 97.6 74 18 138/70 (92) 96 Nasal Cannula 3.00 04/04/18 08:00 Nasal Cannula 3.00 04/04/18 08:00 98.4 80 18 157/73 (101) 98 Nasal Cannula 3.00 I & O 04/05/18 07:00 Intake Total 2090 ml Output Total 3200 ml Balance -1110 ml Height & Weight Height: 5'11.00" Weight: 315lbs. 4.0oz. 142.005924au; 46.7 BMI Method:Stated General Appearance: No Apparent Distress, WD/WN HEENT: Normal ENT Inspection Neck: Full Range of Motion, Normal Inspection Respiratory: Lungs Clear, No Accessory Muscle Use, No Respiratory Distress Cardiovascular: Regular Rate, Rhythm, No Murmur Gastrointestinal: non tender, soft Extremity: Pedal Edema Neurologic/Psychiatric: Alert, Oriented x3, No Motor/Sensory Deficits, Depressed Affect Skin: Normal Color, Warm/Dry Lymphatic: No Adenopathy Results Lab Laboratory Tests 04/04/18 09:20 04/05/18 04:50 Assessment/Plan Assessment/Plan Possible mediport infection -Dr. Regan consulted -Vancomycin pneumonia with atelectasis and hypoxia -Continue Abx -repeat CT scan as out patient in 2months Small bilateral pleural effusions Anasarca -Lasix Acute renal failure -monitor close CAD Anemia -S/p transfusion DM CHF EF 45-50% grade 2 diastolic failure with pulmonary HTN Spinal stenosis, status post C3-7 ACDF with C5 corpectomy done by Dr. Hardwick History of carotid stenosis, last ultrasound was done in July 2017. Continue to monitor JORGE GONZALEZ DO Apr 05, 2018 06:36
[2018-04-05] MEDS: PANTOPRAZOLE 40 MG (PROTONIX) TAB PO SCH (06:42)
[2018-04-05] MEDS: GLIMEPIRIDE 4 MG (AMARYL) TAB PO SCH (06:42)
[2018-04-05] MEDS: FERROUS SULF 325 MG (IRON) TAB PO SCH ×2 (06:42→16:28)
[2018-04-05] MEDS: FUROSEMIDE 40 MG/4 ML INJ (LASIX) IVP SCH (06:42)
[2018-04-05] MEDS: inSUlin ASPART (NovoLOG) 1 UNIT/0.01 ML (CHARGE PER UNIT) SC SCH ×4 (06:42→22:13)
[2018-04-05] MEDS: hydrALAZINE (APRESOLINE) 25 MG TAB PO SCH ×3 (06:42→21:09)
--- NOTE | 2018-04-05 07:14 | Cardiology Progress Note ---
Subjective Date Seen by Provider: Apr 05, 2018 Time Seen by Provider: 07:12 Subjective/Events-last exam Patient is sitting in a chair, feeling better, edema is improving slowly. Review of Systems General: No Chills, No Night Sweats, No Fatigue, No Malaise, No Appetite, No Other HEENT: No Head Aches, No Visual Changes, No Eye Pain, No Ear Pain, No Dysphasia , No Sinus Congestion, No Post Nasal Drip, No Sore Throat, No Other Pulmonary: No Dyspnea, No Cough, No Pleuritic Chest Pain, No Other Cardiovascular: Edema; No: Chest Pain, Palpitations, Orthopnea, Paroxysmal Noc. Dyspnea, Lt Headedness, Other Objective-Cardiology Exam Last Set of Vital Signs Vital Signs 04/05/18 04:03 Temp 99.1 Pulse 78 Resp 19 B/P (MAP) 130/70 (90) Pulse Ox 92 O2 Delivery Nasal Cannula O2 Flow Rate 3.00 Capillary Refill : Less Than 3 Seconds I&O Intake and Output 04/05/18 00:00 Intake Total 1890 ml Output Total 2450 ml Balance -560 ml Intake Oral 1840 ml IV Total 50 ml Output Urine Total 2450 ml # Voids 1 # Bowel Movements 1 General: Alert, Oriented X3, Cooperative HEENT: Atraumatic, PERRLA Neck: Supple, No JVD, No Thyromegaly Lungs: Clear to Auscultation, Normal Air Movement Heart: Regular Rate, Normal S1, Normal S2, No Murmurs Abdomen: Normal Bowel Sounds, Soft, No Tenderness, No Hepatosplenomegaly, No Masses Extremities: No Clubbing, No Cyanosis, Normal Pulses, No Tenderness/Swelling, Other (+2-3 pitting edema) Skin: No Rashes, No Breakdown, No Significant Lesion Neuro: Normal Speech, Cranial Nerves 3-12 NL Psych/Mental Status: Mental Status NL, Mood NL Results Lab Laboratory Tests 04/04/18 09:20 04/05/18 04:50 A/P-Cardiology Admission Diagnosis Anasarca Acute renal failure Anemia Coronary artery disease Assessment/Plan Anasarca, improving with aggressive diuresis, will discontinue IV Lasix and start Lasix 40 mg oral twice a day planning to increase it to 80 mg twice a day tomorrow, continue to monitor electrolytes closely Low-grade fever, had 2 sets of blood culture, one set from the port grew coag- negative staph, the peripheral set did not grew any bacteria. No white count, patient received antibiotic, discussed the management plan with Dr. Younger, might need to replace the port, continue to monitor at this time Acute on chronic renal failure, diabetic nephropathy, continue to monitor. Anemia, received blood transfusion, monitor H&H Generalized weakness and loss of energy, continue with therapy Congestive heart failure, acute left ventricular systolic dysfunction, echocardiogram showed ejection fraction 45-50 percent, grade 2 diastolic dysfunction, dilated left atrium measuring 6.1 cm. Pulmonary hypertension with PA pressure of 35 mmHg. History of coronary artery disease, history of mid LAD stenting using Alpine 3.0 18 mm done in June 2017, mild to moderate disease in the proximal portion of the LAD, moderate disease at the distal circumflex artery. I will consider repeating his stress test once more stable History of diabetes mellitus, diabetic neuropathy, followed and managed by primary care physician History of hyperlipidemia with intolerance to statin. Spinal stenosis, status post C3-7 ACDF with C5 corpectomy done by Dr. aHrdwick History of carotid stenosis, last ultrasound was done in July 2017. Continue to monitor History of respiratory failure secondary to pneumonia. Was managed by Dr. Gao previously, will consult Dr. Gao for evaluation Clinical Quality Measures DVT/VTE Risk/Contraindication: Contraindications-Pharm: Other *list below* Contraindications-Mechi: Other *list below* KAREN YANG MD Apr 05, 2018 07:14
--- NOTE | 2018-04-05 07:59 | Progress Note (SOAP) ---
Subjective Time Seen by a Provider: 07:57 Subjective/Events-last exam Patient feeling better. Patient doing better. Patient afebrile. GFR stable at 39. Patient doing more. Port does not look infected Objective Exam Vital Signs Date Time Temp Pulse Resp B/P (MAP) Pulse Ox O2 Delivery O2 Flow Rate FiO2 04/05/18 07:42 3.00 04/05/18 04:03 99.1 78 19 130/70 (90) 92 Nasal Cannula 3.00 04/05/18 00:03 98.4 70 19 141/75 (97) 96 Nasal Cannula 3.00 04/04/18 20:00 Nasal Cannula 3.00 04/04/18 19:50 98.1 77 14 167/75 (105) 98 Nasal Cannula 3.00 04/04/18 16:19 3.00 04/04/18 16:00 99.1 71 18 146/70 (95) 92 Nasal Cannula 3.00 04/04/18 12:00 97.6 74 18 138/70 (92) 96 Nasal Cannula 3.00 04/04/18 08:00 Nasal Cannula 3.00 04/04/18 08:00 98.4 80 18 157/73 (101) 98 Nasal Cannula 3.00 I & O 04/05/18 07:00 Intake Total 2140 ml Output Total 3200 ml Balance -1060 ml Capillary Refill : Less Than 3 Seconds General Appearance: No Apparent Distress, WD/WN HEENT: Normal ENT Inspection Neck: Full Range of Motion, Normal Inspection Respiratory: Lungs Clear, No Accessory Muscle Use, No Respiratory Distress Cardiovascular: Regular Rate, Rhythm, No Murmur Gastrointestinal: non tender, soft Results Lab Laboratory Tests 04/04/18 09:20 04/05/18 04:50 Laboratory Tests 04/04/18 09:20: White Blood Count 8.4, Red Blood Count 3.15L, Hemoglobin 8.8L, Hematocrit 29L, Mean Corpuscular Volume 91, Mean Corpuscular Hemoglobin 28, Mean Corpuscular Hemoglobin Concent 31L, Red Cell Distribution Width 14.3, Platelet Count 189, Mean Platelet Volume 10.5H, Neutrophils (%) (Auto) 78H, Lymphocytes (%) (Auto) 8L, Monocytes (%) (Auto) 7, Eosinophils (%) (Auto) 7, Basophils (%) (Auto) 0, Neutrophils # (Auto) 6.5, Lymphocytes # (Auto) 0.7L, Monocytes # (Auto) 0.6, Eosinophils # (Auto) 0.6H, Basophils # (Auto) 0.0, Sodium Level 142, Potassium Level 3.7, Chloride Level 98, Carbon Dioxide Level 30, Anion Gap 14, Blood Urea Nitrogen 72H, Creatinine 1.83H, Estimat Glomerular Filtration Rate 39, BUN/ Creatinine Ratio 39, Glucose Level 210H, Calcium Level 9.1, Vancomycin Level Trough 16.5 04/04/18 11:08: Glucometer 235H 04/04/18 15:59: Glucometer 169H 04/04/18 21:04: Glucometer 252H 04/05/18 04:50: White Blood Count 7.2, Red Blood Count 2.94L, Hemoglobin 8.2L, Hematocrit 27L, Mean Corpuscular Volume 91, Mean Corpuscular Hemoglobin 28, Mean Corpuscular Hemoglobin Concent 31L, Red Cell Distribution Width 14.3, Platelet Count 178, Mean Platelet Volume 11.1H, Sodium Level 143, Potassium Level 3.7, Chloride Level 98, Carbon Dioxide Level 30, Anion Gap 15H, Blood Urea Nitrogen 73H, Creatinine 1.82H, Estimat Glomerular Filtration Rate 39, BUN/Creatinine Ratio 40 , Glucose Level 162H, Calcium Level 9.0, Corrected Calcium 9.5, Total Bilirubin 0.5, Aspartate Amino Transf (AST/SGOT) 14, Alanine Aminotransferase (ALT/SGPT) 15, Alkaline Phosphatase 90, Total Protein 5.7L, Albumin 3.4 Microbiology 04/03/18 Blood Culture - Preliminary, Resulted No growth 04/03/18 C. difficile GDH Antigen & Toxins - Final, Complete 03/29/18 MRSA Screen - Final, Complete MRSA not isolated Assessment/Plan Assessment/Plan Assess & Plan/Chief Complaint Anasarca. Renal insufficiency. Anemia. Diabetes. 53 pound weight gain since cervical surgery. Shortness of breath. . 03/29/18. Anasarca. Renal insufficiency. Anemia Diabetes. Shortness of breath. Patient to have a port put in today. . 03/30/18. Anasarca. Renal failure. Anemia. CAD. Diabetes. Hyperlipidemia.. . 03/31/18. Anasarca. Renal insufficiency. Anemia. Coronary artery disease. Diabetes. Hyperlipidemia. Febrile. Temperature over 102 last night. Anemia getting worse.. . 04/03/18. Renal insufficiency. Anasarca. Patient swelling going down. Scrotum is smaller. He has less swelling. To redo blood cultures from port. Diabetes. Patient not febrile this morning. . 04/04/18. Patient feeling better. Patient losing more weight. Swelling and legs going down. Renal insufficiency. Anasarca. Diabetes. Patient walking around with walker . 04/05/18. Patient feeling better and doing better. Patient lost another 4 pounds. Swelling and legs much less. Anasarca. Acute renal failure stable at GFR 39. Anemia. Diabetes. Coronary artery disease. Port does not look infected area Afebrile Clinical Quality Measures Admission Status Admission Dx Anasarca. Diabetes. Renal insufficiency. Weight gain of. Coronary artery disease 54 Patient gained 54 pounds since cervical surgery. Short of breath DVT/VTE Risk/Contraindication: Contraindications-Pharm: Other *list below* Contraindications-Mechi: Other *list below* MARIIA SIM DO Apr 05, 2018 07:59
[2018-04-05] MEDS: amLODIPine 10 MG (NORVASC) TAB PO SCH (08:58)
[2018-04-05] MEDS: VANCOMYCIN INJECTION 2,000 MG in NS IV 500 ML 500 ML IV SCH (08:58)
[2018-04-05] MEDS: ASPIRIN E.C. 81 MG (ECOTRIN) TAB PO SCH (08:58)
[2018-04-05] MEDS: meTOprolol TARTRATE 50 MG (LOPRESSOR) TAB PO SCH ×2 (08:58→21:09)
[2018-04-05] MEDS: GABAPENTIN 600 MG (NEURONTIN) TAB PO SCH ×3 (08:58→21:08)
[2018-04-05] MEDS: MICONAZOLE 2% POWDER (DESENEX AF) 90 GM TOP SCH ×2 (08:59→21:09)
--- NOTE | 2018-04-05 09:34 | Physical Therapy Daily Note ---
PT Daily Note-Current Subjective Pt. up in chair with computer and TV and ear buds in. At first scoffed at moving it all for therapy but agreed with encouragement. No c/o pain or SOB. Pain Numeric Pain Scale: 0-No Pain Mental Status Patient Orientation: Normal For Age Attachments: Oxygen (2L), IV Transfers Functional [place] Measure 0=Not Assessed/NA 4=Minimal Assistance 1=Total Assistance 5=Supervision or Setup 2=Maximal Assistance 6=Modified [place] 3=Moderate Assistance 7=Complete IndependenceIRFPAI Quality Coding Scale 6 Independent with activity with or without an assistive device 5 Patient requires set up or clean up by helper. Patient completes activity by themselves 4 Supervision or touching assist (CGA). [place] provide cues , steadying assist 3 The helper provides less than half the effort to complete the activity 2 The helper provides more than half the effort to complete the activity 1 Dependent. The helper does all the effort to complete an activity 7 Patient refused to complete or attempt activity 9 The patient did not perform the activity before the current illness or injury 88 Not attempted due to Medical conditions or safety concerns Transfers (B, C, W/C) (FIM): 5 all sit to stands SBA to Mod I Weight Bearing Right Lower Extremity: Right Weight Bearing/Tolerated Left Lower Extremity: Left Weight Bearing/Tolerated Gait Training Gait (FIM): 5 Distance (FIM): 3=150 ft (270ft,50ft) Gait Assistive Device: FWW slow, 2-3 standing rest breaks to realign taller and straighter and take deep breath Exercises Seated Therapy Exercises: Ankle pumps, Sit to stand, Long arc quads, Hip flexion Seated Reps: 10 Treatments needed some safety instruction regarding use of FWW while approaching chair after gait, pt. abandons FWW 3-4 feet before reaching chair etc Assessment Current Status: Good Progress PT Jail Goals Jail Goals PT Jail Goals Time Frame: Apr 07, 2018 Transfers (B,C,W/C) (FIM): 6 Gait (FIM): 6 Gait distance (FIM): 3=150 ft Distance: 200' Gait Level of Assist: 6 Gait Assistive Device: FWW PT Plan Treatment/Plan Treatment Plan: Continue Plan of Care Treatment Plan: Bed Mobility, Education, Functional Activity [place], Functional Strength, Gait, Safety, Therapeutic Exercise, Transfers Treatment Duration: Apr 07, 2018 Frequency: 6 times per week Estimated Hrs Per Day: .25 hour per day Patient and/or Family Agrees t: Yes Safety Risks/Education Patient Education: Gait Training, Transfer Techniques, Correct Positioning, Safety Issues Teaching Recipient: Patient Teaching Methods: Demonstration, Discussion Response to Teaching: Verbalize Understanding, Return Demonstration, Reinforcement Needed Time/GCodes Time In: 900 Time Out: 925 Total Billed Treatment Time: 25 Total Billed Treatment 1,GT25m G Codes Necessary: No [employer]ON [employer] Apr 05, 2018 09:34
[2018-04-05] MEDS: LORATADINE (CLARITIN) 10 MG TAB PO SCH (16:28)
[2018-04-05] MEDS: FUROSEMIDE 40 MG (LASIX) TAB PO SCH (16:28)
[2018-04-05] MEDS: ROSUVASTATIN 5 MG (CRESTOR) TABLET PO SCH (21:08)
[2018-04-06 00:43] VITALS: BP 134/69
[2018-04-06] MEDS: cefTRIAXone FOR IV USE 1,000 MG in NS (IVPB) 50 ML IV SCH (01:13)
[2018-04-06] MEDS: inSUlin ASPART (NovoLOG) 1 UNIT/0.01 ML (CHARGE PER UNIT) SC SCH ×4 (06:12→21:17)
[2018-04-06] MEDS: GLIMEPIRIDE 4 MG (AMARYL) TAB PO SCH (06:20)
[2018-04-06] MEDS: hydrALAZINE (APRESOLINE) 25 MG TAB PO SCH ×3 (06:20→21:52)
[2018-04-06] MEDS: PANTOPRAZOLE 40 MG (PROTONIX) TAB PO SCH (06:20)
[2018-04-06] MEDS: FUROSEMIDE 40 MG (LASIX) TAB PO SCH ×2 (06:20→16:47)
[2018-04-06] MEDS: FERROUS SULF 325 MG (IRON) TAB PO SCH ×2 (06:20→16:47)
[2018-04-06 06:23] LABS: MEAN PLATELET VOLUME 10.6 FL (7.4-10.4); RED BLOOD COUNT 2.91 10^6/uL (4.35-5.85); RED CELL DISTRIBUTION WIDTH 13.9 % (10.0-14.5); WHITE BLOOD COUNT 6.5 10^3/uL (4.3-11.0)
[2018-04-06 06:40] LABS: CALCIUM 8.9 MG/DL (8.5-10.1); CREATININE SERUM 1.98 MG/DL (0.60-1.30); POTASSIUM 3.7 MMOL/L (3.6-5.0)
--- NOTE | 2018-04-06 07:55 | Cardiology Progress Note ---
Subjective Date Seen by Provider: Apr 06, 2018 Time Seen by Provider: 07:52 Subjective/Events-last exam Patient is laying down in bed, complaining of fatigue and loss of energy. Still having significant edema. Gained weight loss 24 hour Review of Systems General: No Chills, No Night Sweats, No Fatigue, No Malaise, No Appetite, No Other HEENT: No Head Aches, No Visual Changes, No Eye Pain, No Ear Pain, No Dysphasia , No Sinus Congestion, No Post Nasal Drip, No Sore Throat, No Other Pulmonary: Dyspnea; No Cough, No Pleuritic Chest Pain, No Other Cardiovascular: Edema; No: Chest Pain, Palpitations, Orthopnea, Paroxysmal Noc. Dyspnea, Lt Headedness, Other Objective-Cardiology Exam Last Set of Vital Signs Vital Signs 04/05/18 04/06/18 16:07 00:43 Temp 89.9 Pulse 69 Resp 18 B/P (MAP) 134/69 (90) Pulse Ox 90 O2 Delivery Room Air O2 Flow Rate 3.00 Capillary Refill : Less Than 3 Seconds I&O Intake and Output 04/06/18 00:00 Intake Total 2042 ml Output Total 1450 ml Balance 592 ml Intake Oral 1472 ml IV Total 570 ml Output Urine Total 1450 ml # Voids 6 # Bowel Movements 2 General: Alert, Oriented X3, Cooperative HEENT: Atraumatic, PERRLA Neck: Supple, No JVD, No Thyromegaly Lungs: Clear to Auscultation, Normal Air Movement Heart: Regular Rate, Normal S1, Normal S2, No Murmurs Abdomen: Normal Bowel Sounds, Soft, No Tenderness, No Hepatosplenomegaly, No Masses Extremities: No Clubbing, No Cyanosis, Normal Pulses, No Tenderness/Swelling, Other (+2-3 pitting edema) Skin: No Rashes, No Breakdown, No Significant Lesion Neuro: Normal Speech, Cranial Nerves 3-12 NL Psych/Mental Status: Mental Status NL, Mood NL Results Lab Laboratory Tests 04/06/18 06:15 A/P-Cardiology Admission Diagnosis Anasarca Acute renal failure Anemia Coronary artery disease Assessment/Plan Anasarca, improving slowly, I will change Lasix to 80 mg by mouth twice daily and monitor tolerance and response. Low-grade fever, had 2 sets of blood culture, one set from the port grew coag- negative staph, the peripheral set did not grew any bacteria. Better at this time. Continue to monitor Acute on chronic renal failure, diabetic nephropathy, continue to monitor. Anemia, received blood transfusion, monitor H&H Generalized weakness and loss of energy, continue with therapy Congestive heart failure, acute left ventricular systolic dysfunction, echocardiogram showed ejection fraction 45-50 percent, grade 2 diastolic dysfunction, dilated left atrium measuring 6.1 cm. Pulmonary hypertension with PA pressure of 35 mmHg. History of coronary artery disease, history of mid LAD stenting using Alpine 3.0 18 mm done in June 2017, mild to moderate disease in the proximal portion of the LAD, moderate disease at the distal circumflex artery. I will consider repeating his stress test once more stable History of diabetes mellitus, diabetic neuropathy, followed and managed by primary care physician History of hyperlipidemia with intolerance to statin. Spinal stenosis, status post C3-7 ACDF with C5 corpectomy done by Dr. Hardwick History of carotid stenosis, last ultrasound was done in July 2017. Continue to monitor History of respiratory failure secondary to pneumonia. Was managed by Dr. Gao previously, will consult Dr. Gao for evaluation Clinical Quality Measures DVT/VTE Risk/Contraindication: Contraindications-Pharm: Other *list below* Contraindications-Mechi: Other *list below* KAREN YANG MD Apr 06, 2018 07:55
[2018-04-06 08:00] VITALS: BP 140/63
[2018-04-06] MEDS ORDERED: FUROSEMIDE 40 MG (LASIX) TAB PO NR (08:00)
--- NOTE | 2018-04-06 08:05 | Progress Note (SOAP) ---
Subjective Time Seen by a Provider: 08:05 Subjective/Events-last exam Patient seen weight Lasix 40 twice a day. To give Lasix 80 twice a day orally Objective Exam Vital Signs Date Time Temp Pulse Resp B/P (MAP) Pulse Ox O2 Delivery O2 Flow Rate FiO2 04/06/18 00:43 89.9 69 18 134/69 (90) 90 Room Air 04/05/18 21:06 82 135/66 (89) 04/05/18 16:07 97.8 79 20 136/65 (88) 93 Nasal Cannula 3.00 04/05/18 12:00 97.5 68 18 127/69 (88) 96 Nasal Cannula 3.00 04/05/18 08:10 98.9 72 14 145/65 (91) 98 Nasal Cannula 3.00 I & O 04/06/18 07:00 Intake Total 2342 ml Output Total 1200 ml Balance 1142 ml Capillary Refill : Less Than 3 Seconds General Appearance: No Apparent Distress, WD/WN HEENT: Normal ENT Inspection Neck: Full Range of Motion, Normal Inspection Respiratory: No Accessory Muscle Use, No Respiratory Distress Cardiovascular: Regular Rate, Rhythm, No Murmur Results Lab Laboratory Tests 04/06/18 06:15 Laboratory Tests 04/05/18 11:17: Glucometer 239H 04/05/18 15:54: Glucometer 232H 04/05/18 20:39: Glucometer 261H 04/05/18 22:06: Glucometer 285H 04/06/18 05:38: Glucometer 175H 04/06/18 06:15: White Blood Count 6.5, Red Blood Count 2.91L, Hemoglobin 8.0L, Hematocrit 27L, Mean Corpuscular Volume 91, Mean Corpuscular Hemoglobin 28, Mean Corpuscular Hemoglobin Concent 30L, Red Cell Distribution Width 13.9, Platelet Count 175, Mean Platelet Volume 10.6H, Sodium Level 142, Potassium Level 3.7, Chloride Level 98, Carbon Dioxide Level 29, Anion Gap 15H, Blood Urea Nitrogen 76H, Creatinine 1.98H, Estimat Glomerular Filtration Rate 36, BUN/Creatinine Ratio 38 , Glucose Level 160H, Calcium Level 8.9 Microbiology 04/03/18 Blood Culture - Preliminary, Resulted No growth 04/03/18 C. difficile GDH Antigen & Toxins - Final, Complete 03/29/18 MRSA Screen - Final, Complete MRSA not isolated Assessment/Plan Assessment/Plan Assess & Plan/Chief Complaint Anasarca. Renal insufficiency. Anemia. Diabetes. 53 pound weight gain since cervical surgery. Shortness of breath. . 03/29/18. Anasarca. Renal insufficiency. Anemia Diabetes. Shortness of breath. Patient to have a port put in today. . 03/30/18. Anasarca. Renal failure. Anemia. CAD. Diabetes. Hyperlipidemia.. . 03/31/18. Anasarca. Renal insufficiency. Anemia. Coronary artery disease. Diabetes. Hyperlipidemia. Febrile. Temperature over 102 last night. Anemia getting worse.. . 04/03/18. Renal insufficiency. Anasarca. Patient swelling going down. Scrotum is smaller. He has less swelling. To redo blood cultures from port. Diabetes. Patient not febrile this morning. . 04/04/18. Patient feeling better. Patient losing more weight. Swelling and legs going down. Renal insufficiency. Anasarca. Diabetes. Patient walking around with walker . 04/05/18. Patient feeling better and doing better. Patient lost another 4 pounds. Swelling and legs much less. Anasarca. Acute renal failure stable at GFR 39. Anemia. Diabetes. Coronary artery disease. Port does not look infected area Afebrile. . 04/06 shaking. On Lasix 40 twice a day by mouth patient getting weight. Anasarca. Acute renal insufficiency Anemia. Diabetes. Coronary artery disease. Clinical Quality Measures Admission Status Admission Dx Anasarca. Diabetes. Renal insufficiency. Weight gain of. Coronary artery disease 54 Patient gained 54 pounds since cervical surgery. Short of breath DVT/VTE Risk/Contraindication: Contraindications-Pharm: Other *list below* Contraindications-Mechi: Other *list below* MARIIA SIM DO Apr 06, 2018 08:05
[2018-04-06] MEDS: amLODIPine 10 MG (NORVASC) TAB PO SCH (09:15)
[2018-04-06] MEDS: ASPIRIN E.C. 81 MG (ECOTRIN) TAB PO SCH (09:15)
[2018-04-06] MEDS: VANCOMYCIN INJECTION 2,000 MG in NS IV 500 ML 500 ML IV SCH (09:15)
[2018-04-06] MEDS: meTOprolol TARTRATE 50 MG (LOPRESSOR) TAB PO SCH ×2 (09:15→21:17)
[2018-04-06] MEDS: GABAPENTIN 600 MG (NEURONTIN) TAB PO SCH ×3 (09:15→21:17)
[2018-04-06] MEDS: MICONAZOLE 2% POWDER (DESENEX AF) 90 GM TOP SCH ×2 (09:17→21:18)
--- NOTE | 2018-04-06 10:39 | Physical Therapy Daily Note ---
PT Daily Note-Current Subjective Patient was in chair with headphones in at his computer. Pt agreed to get out of his room to walk for therapy. Pain Numeric Pain Scale: 0-No Pain Location: No Pain Reported Mental Status Patient Orientation: Normal For Age Attachments: Oxygen, IV Transfers Functional [place] Measure 0=Not Assessed/NA 4=Minimal Assistance 1=Total Assistance 5=Supervision or Setup 2=Maximal Assistance 6=Modified [place] 3=Moderate Assistance 7=Complete IndependenceIRFPAI Quality Coding Scale 6 Independent with activity with or without an assistive device 5 Patient requires set up or clean up by helper. Patient completes activity by themselves 4 Supervision or touching assist (CGA). [place] provide cues , steadying assist 3 The helper provides less than half the effort to complete the activity 2 The helper provides more than half the effort to complete the activity 1 Dependent. The helper does all the effort to complete an activity 7 Patient refused to complete or attempt activity 9 The patient did not perform the activity before the current illness or injury 88 Not attempted due to Medical conditions or safety concerns Transfers (B, C, W/C) (FIM): 5 Scootin Supine to/from Sit: 6 Sit to/from Stand: 5 Weight Bearing Right Lower Extremity: Right Weight Bearing/Tolerated Left Lower Extremity: Left Weight Bearing/Tolerated Gait Training Gait (FIM): 5 Distance (FIM): 3=150 ft Distance: 600' Gait Level of Assist: 5 Gait Persons Needed: 1 Gait Assistive Device: FWW Assessment Patient was able to ambulate for 600 ft with standing recovering periodically to talk to staff. Patient showed little fatigue and prolonged walk because he did not want to go back to his room. Patient will continue to benefit from therapy to increase overall endurance and strength for functional activities. PT Alf Goals Alf Goals PT Alf Goals Time Frame: Apr 07, 2018 Transfers (B,C,W/C) (FIM): 6 Gait (FIM): 6 Gait distance (FIM): 3=150 ft Distance: 200' Gait Level of Assist: 6 Gait Assistive Device: FWW PT Plan Treatment/Plan Treatment Plan: Continue Plan of Care Treatment Plan: Bed Mobility, Education, Functional Activity [place], Functional Strength, Gait, Safety, Therapeutic Exercise, Transfers Treatment Duration: Apr 07, 2018 Frequency: 6 times per week Estimated Hrs Per Day: .25 hour per day Patient and/or Family Agrees t: Yes Time/GCodes Time In: 945 Time Out: 1003 Total Billed Treatment Time: 18 Total Billed Treatment 1 visit FA - 18 mins MARK RAMIREZ PT Apr 06, 2018 10:39
--- NOTE | 2018-04-06 11:38 | Pulmonary Progress Note ---
Subjective Time Seen by a Provider: 08:10 Subjective/Events-last exam C XR is pending Sepsis Event Evaluation Height, Weight, BMI Height: 5'11.00" Weight: 319lbs. 0.5oz. 144.309672tw; 46.7 BMI Method:Stated Exam Exam Vital Signs Date Time Temp Pulse Resp B/P (MAP) Pulse Ox O2 Delivery O2 Flow Rate FiO2 04/06/18 11:07 Nasal Cannula 3.00 04/06/18 08:00 98.4 81 20 140/63 (88) 90 Room Air 04/06/18 00:43 89.9 69 18 134/69 (90) 90 Room Air 04/05/18 21:06 82 135/66 (89) 04/05/18 16:07 97.8 79 20 136/65 (88) 93 Nasal Cannula 3.00 04/05/18 12:00 97.5 68 18 127/69 (88) 96 Nasal Cannula 3.00 I & O 04/06/18 07:00 Intake Total 2342 ml Output Total 1200 ml Balance 1142 ml Height & Weight Height: 5'11.00" Weight: 319lbs. 0.5oz. 144.649360ug; 46.7 BMI Method:Stated General Appearance: No Apparent Distress, WD/WN HEENT: Normal ENT Inspection Neck: Full Range of Motion, Normal Inspection Respiratory: Lungs Clear, No Accessory Muscle Use, No Respiratory Distress Cardiovascular: Regular Rate, Rhythm, No Murmur Gastrointestinal: non tender, soft Extremity: Normal Capillary Refill, Normal Inspection, Normal Range of Motion, Non Tender, No Calf Tenderness, Pedal Edema, Other (Significant edema) Neurologic/Psychiatric: Alert, Oriented x3, No Motor/Sensory Deficits, Normal Mood/Affect Skin: Normal Color, Warm/Dry Lymphatic: No Adenopathy Results Lab Laboratory Tests 04/05/18 04:50 04/06/18 06:15 Assessment/Plan Assessment/Plan Possible mediport infection -Dr. Regan consulted -Vancomycin pneumonia with atelectasis and hypoxia -Continue Abx -repeat CXR -repeat CT scan as out patient in 2months Small bilateral pleural effusions Anasarca -Lasix Acute renal failure -monitor close CAD Anemia -S/p transfusion DM CHF EF 45-50% grade 2 diastolic failure with pulmonary HTN Spinal stenosis, status post C3-7 ACDF with C5 corpectomy done by Dr. Hardwick History of carotid stenosis, last ultrasound was done in July 2017. Continue to monitor JORGE GONZALEZ DO Apr 06, 2018 11:38
--- NOTE | 2018-04-06 15:03 | Diagnostic Imaging Report ---
PATIENT HISTORY: Shortness of breath. TECHNIQUE: Two views of the chest. COMPARISON: 03/31/2018. FINDINGS: Lung volumes are mildly low. There is a small right pleural effusion. There is mild cardiomegaly with mild central vascular congestion. The right Port-A-Cath tip projects over the low SVC. Fusion hardware is seen in the cervical spine. There are left basilar airspace opacities. IMPRESSION: 1. Small right pleural effusion. Left basilar atelectasis versus infiltrate. 2. Mild cardiomegaly with mild central vascular congestion. Dictated by: Dictated on workstation # [id number]
[2018-04-06 16:00] VITALS: BP 159/72
[2018-04-06] MEDS: LORATADINE (CLARITIN) 10 MG TAB PO SCH (16:47)
[2018-04-06] MEDS: ROSUVASTATIN 5 MG (CRESTOR) TABLET PO SCH (21:17)
[2018-04-07] VITALS: BP 137/66
[2018-04-07 04:49] LABS: HEMOGLOBIN 8.5 G/DL (13.3-17.7); MEAN PLATELET VOLUME 10.7 FL (7.4-10.4); RED BLOOD COUNT 3.05 10^6/uL (4.35-5.85); RED CELL DISTRIBUTION WIDTH 14.3 % (10.0-14.5); WHITE BLOOD COUNT 7.4 10^3/uL (4.3-11.0)
[2018-04-07 05:09] LABS: ALBUMIN 3.7 GM/DL (3.2-4.5); BILIRUBIN,TOTAL 0.5 MG/DL (0.1-1.0); CALCIUM 9.1 MG/DL (8.5-10.1); CREATININE SERUM 2.08 MG/DL (0.60-1.30); MAGNESIUM 2.5 MG/DL (1.8-2.4); TOTAL PROTEIN 5.6 GM/DL (6.4-8.2)
[2018-04-07] MEDS: FERROUS SULF 325 MG (IRON) TAB PO SCH (06:35)
[2018-04-07] MEDS: PANTOPRAZOLE 40 MG (PROTONIX) TAB PO SCH (06:35)
[2018-04-07] MEDS: GLIMEPIRIDE 4 MG (AMARYL) TAB PO SCH (06:35)
[2018-04-07] MEDS: hydrALAZINE (APRESOLINE) 25 MG TAB PO SCH ×2 (06:35→13:25)
[2018-04-07] MEDS: FUROSEMIDE 40 MG (LASIX) TAB PO SCH (06:35)
[2018-04-07] MEDS: inSUlin ASPART (NovoLOG) 1 UNIT/0.01 ML (CHARGE PER UNIT) SC SCH ×3 (06:35→16:15)
--- NOTE | 2018-04-07 07:26 | Progress Note (SOAP) ---
Subjective Time Seen by a Provider: 07:23 Subjective/Events-last exam Patient may be discharged today if okay with cardiology. Spoke to patient about following low-sodium diet and diabetic diet. Patient noncompliant with diet. Patient voices no complaints today. Patient getting slight weight today Objective Exam Vital Signs Date Time Temp Pulse Resp B/P (MAP) Pulse Ox O2 Delivery O2 Flow Rate FiO2 04/07/18 00:00 98.7 81 16 137/66 (89) 93 Room Air 04/06/18 16:00 98.4 73 18 159/72 (101) 92 Room Air 04/06/18 11:07 Nasal Cannula 3.00 04/06/18 08:00 98.4 81 20 140/63 (88) 90 Room Air 04/06/18 08:00 Nasal Cannula 3.00 I & O 04/07/18 06:59 Intake Total 2570 ml Balance 2570 ml Capillary Refill : Less Than 3 Seconds General Appearance: No Apparent Distress, WD/WN HEENT: Normal ENT Inspection Neck: Full Range of Motion Respiratory: Chest Non Tender, No Accessory Muscle Use, No Respiratory Distress Cardiovascular: Regular Rate, Rhythm, No Murmur Gastrointestinal: non tender, soft Results Lab Laboratory Tests 04/06/18 11:10: Glucometer 283H 04/06/18 12:00: B-Type Natriuretic Peptide 609.2H 04/06/18 16:11: Glucometer 259H 04/06/18 20:06: Glucometer 245H 04/07/18 04:43: White Blood Count 7.4, Red Blood Count 3.05L, Hemoglobin 8.5L, Hematocrit 28L, Mean Corpuscular Volume 90, Mean Corpuscular Hemoglobin 28, Mean Corpuscular Hemoglobin Concent 31L, Red Cell Distribution Width 14.3, Platelet Count 202, Mean Platelet Volume 10.7H, Sodium Level 140, Potassium Level 4.0, Chloride Level 97L, Carbon Dioxide Level 29, Anion Gap 14, Blood Urea Nitrogen 75H, Creatinine 2.08H, Estimat Glomerular Filtration Rate 34, BUN/Creatinine Ratio 36 , Glucose Level 201H, Calcium Level 9.1, Corrected Calcium 9.3, Magnesium Level 2.5H, Total Bilirubin 0.5, Aspartate Amino Transf (AST/SGOT) 18, Alanine Aminotransferase (ALT/SGPT) 19, Alkaline Phosphatase 107, Total Protein 5.6L, Albumin 3.7 Microbiology 04/03/18 Blood Culture - Preliminary, Resulted No growth 04/03/18 C. difficile GDH Antigen & Toxins - Final, Complete 03/29/18 MRSA Screen - Final, Complete MRSA not isolated Assessment/Plan Assessment/Plan Assess & Plan/Chief Complaint Anasarca. Renal insufficiency. Anemia. Diabetes. 53 pound weight gain since cervical surgery. Shortness of breath. . 03/29/18. Anasarca. Renal insufficiency. Anemia Diabetes. Shortness of breath. Patient to have a port put in today. . 03/30/18. Anasarca. Renal failure. Anemia. CAD. Diabetes. Hyperlipidemia.. . 03/31/18. Anasarca. Renal insufficiency. Anemia. Coronary artery disease. Diabetes. Hyperlipidemia. Febrile. Temperature over 102 last night. Anemia getting worse.. . 04/03/18. Renal insufficiency. Anasarca. Patient swelling going down. Scrotum is smaller. He has less swelling. To redo blood cultures from port. Diabetes. Patient not febrile this morning. . 04/04/18. Patient feeling better. Patient losing more weight. Swelling and legs going down. Renal insufficiency. Anasarca. Diabetes. Patient walking around with walker . 04/05/18. Patient feeling better and doing better. Patient lost another 4 pounds. Swelling and legs much less. Anasarca. Acute renal failure stable at GFR 39. Anemia. Diabetes. Coronary artery disease. Port does not look infected area Afebrile. . 04/06 shaking. On Lasix 40 twice a day by mouth patient getting weight. Anasarca. Acute renal insufficiency Anemia. Diabetes. Coronary artery disease.. . 04/07/18. Anasarca. Renal insufficiency. Anemia. Diabetes. Coronary artery disease. Clinical Quality Measures Admission Status Admission Dx Anasarca. Diabetes. Renal insufficiency. Weight gain of. Coronary artery disease 54 Patient gained 54 pounds since cervical surgery. Short of breath DVT/VTE Risk/Contraindication: Contraindications-Pharm: Other *list below* Contraindications-Mechi: Other *list below* MARIIA SIM DO Apr 07, 2018 07:26
[2018-04-07 08:00] VITALS: BP 156/74
--- NOTE | 2018-04-07 08:09 | Cardiology Progress Note ---
Subjective Date Seen by Provider: Apr 07, 2018 Time Seen by Provider: 08:07 Subjective/Events-last exam Patient is feeling better, still having significant edema. No chest pain Review of Systems General: No Chills, No Night Sweats; Fatigue, Malaise; No Appetite, No Other HEENT: No Head Aches, No Visual Changes, No Eye Pain, No Ear Pain, No Dysphasia , No Sinus Congestion, No Post Nasal Drip, No Sore Throat, No Other Pulmonary: Dyspnea; No Cough, No Pleuritic Chest Pain, No Other Cardiovascular: Edema; No: Chest Pain, Palpitations, Orthopnea, Paroxysmal Noc. Dyspnea, Lt Headedness, Other Objective-Cardiology Exam Last Set of Vital Signs Vital Signs 04/06/18 04/07/18 11:07 00:00 Temp 98.7 Pulse 81 Resp 16 B/P (MAP) 137/66 (89) Pulse Ox 93 O2 Delivery Room Air O2 Flow Rate 3.00 Capillary Refill : Less Than 3 Seconds I&O Intake and Output 04/07/18 00:00 Intake Total 2920 ml Output Total 500 ml Balance 2420 ml Intake Oral 2350 ml IV Total 570 ml Output Urine Total 500 ml # Voids 8 # Bowel Movements 3 General: Alert, Oriented X3, Cooperative HEENT: Atraumatic, PERRLA Neck: Supple, No JVD, No Thyromegaly Lungs: Clear to Auscultation, Normal Air Movement Heart: Regular Rate, Normal S1, Normal S2, No Murmurs Abdomen: Normal Bowel Sounds, Soft, No Tenderness, No Hepatosplenomegaly, No Masses Extremities: No Clubbing, No Cyanosis, Normal Pulses, No Tenderness/Swelling, Other (+2-3 pitting edema) Skin: No Rashes, No Breakdown, No Significant Lesion Neuro: Normal Speech, Cranial Nerves 3-12 NL Psych/Mental Status: Mental Status NL, Mood NL Results Lab Laboratory Tests 04/07/18 04:43 A/P-Cardiology Admission Diagnosis Anasarca Acute renal failure Anemia Coronary artery disease Assessment/Plan Anasarca, improving slowly, slight weight gain while on Lasix 80 mg twice daily , I will add Zaroxolyn to be taken 3 times a week, patient is scheduled for nephrology evaluation in 2 weeks, in addition I am stopping amlodipine and increase in hydralazine dose Low-grade fever, had 2 sets of blood culture, one set from the port grew coag- negative staph, the peripheral set did not grew any bacteria. Better at this time. Continue to monitor Acute on chronic renal failure, diabetic nephropathy, scheduled for nephrology evaluation as an outpatient in 2 weeks Anemia, received blood transfusion, monitor H&H Generalized weakness and loss of energy, continue with therapy Congestive heart failure, acute left ventricular systolic dysfunction, echocardiogram showed ejection fraction 45-50 percent, grade 2 diastolic dysfunction, dilated left atrium measuring 6.1 cm. Pulmonary hypertension with PA pressure of 35 mmHg. History of coronary artery disease, history of mid LAD stenting using Alpine 3.0 18 mm done in June 2017, mild to moderate disease in the proximal portion of the LAD, moderate disease at the distal circumflex artery. I will consider repeating his stress test once more stable History of diabetes mellitus, diabetic neuropathy, followed and managed by primary care physician History of hyperlipidemia with intolerance to statin. Spinal stenosis, status post C3-7 ACDF with C5 corpectomy done by Dr. Hardwick History of carotid stenosis, last ultrasound was done in July 2017. Continue to monitor History of respiratory failure secondary to pneumonia. Was managed by Dr. Gao previously, will consult Dr. Gao for evaluation Okay for discharge from cardiology standpoint, follow-up as an outpatient next week Clinical Quality Measures DVT/VTE Risk/Contraindication: Contraindications-Pharm: Other *list below* Contraindications-Mechi: Other *list below* KAREN YANG MD Apr 07, 2018 08:09
[2018-04-07] MEDS: meTOprolol TARTRATE 50 MG (LOPRESSOR) TAB PO SCH (08:12)
[2018-04-07] MEDS: amLODIPine 10 MG (NORVASC) TAB PO SCH (08:12)
[2018-04-07] MEDS: ASPIRIN E.C. 81 MG (ECOTRIN) TAB PO SCH (08:12)
[2018-04-07] MEDS: GABAPENTIN 600 MG (NEURONTIN) TAB PO SCH ×2 (08:12→13:25)
[2018-04-07] MEDS ORDERED: FURO40TA4 PO (08:13)
[2018-04-07] MEDS: MICONAZOLE 2% POWDER (DESENEX AF) 90 GM TOP SCH (08:13)
[2018-04-07] MEDS ORDERED: METO5TAB6 PO (08:13)
[2018-04-07] MEDS ORDERED: HYDR-3923 PO (08:13)
[2018-04-07] MEDS ORDERED: METOLAZONE 5 MG (ZAROXOLYN) TAB PO NR (08:15)
--- NOTE | 2018-04-07 09:01 | Pulmonary Progress Note ---
Subjective Time Seen by a Provider: 10:17 Subjective/Events-last exam Pt is going home today. No complications noted. Sepsis Event Evaluation Height, Weight, BMI Height: 5'11.00" Weight: 321lbs. 6.0oz. 145.621176uk; 46.7 BMI Method:Stated Exam Exam Vital Signs Date Time Temp Pulse Resp B/P (MAP) Pulse Ox O2 Delivery O2 Flow Rate FiO2 04/07/18 08:00 Room Air 04/07/18 00:00 98.7 81 16 137/66 (89) 93 Room Air 04/06/18 16:00 98.4 73 18 159/72 (101) 92 Room Air 04/06/18 11:07 Nasal Cannula 3.00 I & O 04/07/18 07:00 Intake Total 2570 ml Balance 2570 ml Height & Weight Height: 5'11.00" Weight: 321lbs. 6.0oz. 145.053722qc; 46.7 BMI Method:Stated General Appearance: No Apparent Distress, WD/WN HEENT: Normal ENT Inspection Neck: Full Range of Motion Respiratory: Chest Non Tender, No Accessory Muscle Use, No Respiratory Distress Cardiovascular: Regular Rate, Rhythm, No Murmur Gastrointestinal: non tender, soft Extremity: Normal Capillary Refill, Normal Inspection, Normal Range of Motion, Non Tender, No Calf Tenderness, Pedal Edema, Other (Significant edema) Neurologic/Psychiatric: Alert, Oriented x3, No Motor/Sensory Deficits, Normal Mood/Affect Skin: Normal Color, Warm/Dry Lymphatic: No Adenopathy Results Lab Laboratory Tests 04/06/18 06:15 04/07/18 04:43 Assessment/Plan Assessment/Plan Possible mediport infection pneumonia with atelectasis and hypoxia -Continue Abx -repeat CXR recviewed and shows atelectasis and small amount of pleural effusion. -repeat CT scan as out patient in 2months Small bilateral pleural effusions Anasarca -Lasix Acute renal failure -monitor close CAD Anemia -S/p transfusion DM CHF EF 45-50% grade 2 diastolic failure with pulmonary HTN Spinal stenosis, status post C3-7 ACDF with C5 corpectomy done by Dr. Hardwick History of carotid stenosis, last ultrasound was done in July 2017. Continue to monitor JORGE GONZALEZ DO Apr 07, 2018 09:01
--- NOTE | 2018-04-10 07:36 | Discharge Summary ---
Diagnosis/Chief Complaint Date of Admission Mar 27, 2018 at 13:24 Date of Discharge Apr 07, 2018 at 17:10 Discharge Date: Apr 07, 2018 Discharge Time: 07:33 Discharge Diagnosis Anasarca. Acute kidney failure. Anemia. Anxiety disorder. Coronary artery disease. Cardiomyopathy. Chronic kidney disease. Hypertension. Fluid overload. Hyperlipidemia. Diabetes. Noncompliance with dietary regimen. Sleep apnea. Reason Hospital Visit Patient failed outpatient treatment. Patient has anasacara. Patient had cervical surgery. Since then patient gained 54 pounds of fluid. Patient has renal insufficiency. Patient has diabetes. Patient keeps on gaining weight. Legs thighs and scrotum and penis swollen now patient to have IV treatments. Patient can only get around with a walker now and go approximately 10 feet without shortness of breath. When patient left rehabilitation walk by himself use cane and walk 100 feet Discharge Summary Consultations Surgeon for port. Pulmonology. Cardiology Discharge Physical Examination Allergies: Coded Allergies: tazobactam (Verified Allergy, Unknown, RASH, 02/10/18) Vitals & I&Os Vital Signs Date Time Temp Pulse Resp B/P (MAP) Pulse Ox O2 Delivery O2 Flow Rate FiO2 04/07/18 08:00 Room Air 04/07/18 08:00 98.9 78 18 156/74 (101) 94 04/06/18 11:07 3.00 Hospital Course Patient did lose weight in hospital. Patient had 2 coagulase positive cultures from port. Cellulitis of port Labs (last 24 hrs) Laboratory Tests 03/27/18 15:25: White Blood Count 8.4, Red Blood Count 2.94L, Hemoglobin 8.2L, Hematocrit 26L, Mean Corpuscular Volume 90, Mean Corpuscular Hemoglobin 28, Mean Corpuscular Hemoglobin Concent 31L, Red Cell Distribution Width 15.1H, Platelet Count 211, Mean Platelet Volume 10.5H, Sodium Level 142, Potassium Level 4.8, Chloride Level 107, Carbon Dioxide Level 23, Anion Gap 12, Blood Urea Nitrogen 71H, Creatinine 2.08H, Estimat Glomerular Filtration Rate 34, BUN/Creatinine Ratio 34 , Glucose Level 114H, Calcium Level 8.9, Corrected Calcium 9.1, Total Bilirubin 0.6, Aspartate Amino Transf (AST/SGOT) 12, Alanine Aminotransferase (ALT/SGPT) 19, Alkaline Phosphatase 97, B-Type Natriuretic Peptide 591.1H, Total Protein 6.1L, Albumin 3.8 03/28/18 05:20: White Blood Count 6.4, Red Blood Count 2.73L, Hemoglobin 7.6L, Hematocrit 25L, Mean Corpuscular Volume 91, Mean Corpuscular Hemoglobin 28, Mean Corpuscular Hemoglobin Concent 31L, Red Cell Distribution Width 15.1H, Platelet Count 207, Mean Platelet Volume 10.7H, Sodium Level 142, Potassium Level 4.1, Chloride Level 107, Carbon Dioxide Level 23, Anion Gap 12, Blood Urea Nitrogen 74H, Creatinine 2.10H, Estimat Glomerular Filtration Rate 33, BUN/Creatinine Ratio 35 , Glucose Level 161H, Calcium Level 8.8, Corrected Calcium 9.2, Total Bilirubin 0.5, Aspartate Amino Transf (AST/SGOT) 11, Alanine Aminotransferase (ALT/SGPT) 17, Alkaline Phosphatase 88, B-Type Natriuretic Peptide 692.9H, Total Protein 5.6L, Albumin 3.5, Triglycerides Level 86, Cholesterol Level 86, LDL Cholesterol Direct 44, VLDL Cholesterol 17, HDL Cholesterol 26L 03/28/18 10:54: Glucometer 174H 03/28/18 16:37: Glucometer 203H 03/28/18 21:37: Glucometer 217H 03/29/18 05:23: White Blood Count 7.2, Red Blood Count 2.75L, Hemoglobin 7.9L, Hematocrit 25L, Mean Corpuscular Volume 90, Mean Corpuscular Hemoglobin 29, Mean Corpuscular Hemoglobin Concent 32, Red Cell Distribution Width 14.9H, Platelet Count 199, Mean Platelet Volume 10.7H, Sodium Level 142, Potassium Level 4.0, Chloride Level 105, Carbon Dioxide Level 24, Anion Gap 13, Blood Urea Nitrogen 72H, Creatinine 2.12H, Estimat Glomerular Filtration Rate 33, BUN/Creatinine Ratio 34 , Glucose Level 147H, Calcium Level 8.8, Magnesium Level 2.4 03/29/18 05:34: Glucometer 158H 03/29/18 12:14: Glucometer 138H 03/29/18 17:12: Glucometer 139H 03/29/18 21:06: Glucometer 262H 03/30/18 05:04: Glucometer 147H 03/30/18 08:00: White Blood Count 7.3, Red Blood Count 2.89L, Hemoglobin 8.1L, Hematocrit 27L, Mean Corpuscular Volume 92, Mean Corpuscular Hemoglobin 28, Mean Corpuscular Hemoglobin Concent 30L, Red Cell Distribution Width 15.0H, Platelet Count 226, Mean Platelet Volume 10.0, Sodium Level 143, Potassium Level 4.1, Chloride Level 104, Carbon Dioxide Level 27, Anion Gap 12, Blood Urea Nitrogen 70H, Creatinine 2.23H, Estimat Glomerular Filtration Rate 31, BUN/Creatinine Ratio 31 , Glucose Level 151H, Calcium Level 8.7 03/30/18 11:08: Glucometer 204H 03/30/18 16:08: Glucometer 286H 03/30/18 20:56: Glucometer 184H 03/31/18 00:45: White Blood Count 9.0, Red Blood Count 2.74L, Hemoglobin 7.8L, Hematocrit 25L, Mean Corpuscular Volume 92, Mean Corpuscular Hemoglobin 29, Mean Corpuscular Hemoglobin Concent 31L, Red Cell Distribution Width 15.0H, Platelet Count 223, Mean Platelet Volume 10.5H, Neutrophils (%) (Auto) 82H, Lymphocytes (%) (Auto) 7L, Monocytes (%) (Auto) 6, Eosinophils (%) (Auto) 4, Basophils (%) (Auto) 0, Neutrophils # (Auto) 7.4, Lymphocytes # (Auto) 0.7L, Monocytes # (Auto) 0.6, Eosinophils # (Auto) 0.4H, Basophils # (Auto) 0.0, Neutrophils % (Manual) 84, Lymphocytes % (Manual) 6, Monocytes % (Manual) 8, Eosinophils % (Manual) 2, Basophilic Stippling SLIGHT, Tear Drop Cells SLIGHT 03/31/18 05:05: Glucometer 168H 03/31/18 05:10: White Blood Count 7.1, Red Blood Count 2.61L, Hemoglobin 7.4L, Hematocrit 24L, Mean Corpuscular Volume 92, Mean Corpuscular Hemoglobin 28, Mean Corpuscular Hemoglobin Concent 31L, Red Cell Distribution Width 14.9H, Platelet Count 197, Mean Platelet Volume 10.3, Sodium Level 142, Potassium Level 4.1, Chloride Level 103, Carbon Dioxide Level 26, Anion Gap 13, Blood Urea Nitrogen 72H, Creatinine 2.42H, Estimat Glomerular Filtration Rate 28, BUN/Creatinine Ratio 30 , Glucose Level 137H, Calcium Level 8.6, Magnesium Level 2.8H, B-Type Natriuretic Peptide 961.4H, Thyroid Stimulating Hormone (TSH) 0.52 03/31/18 08:05: Lactic Acid Level 0.40L 03/31/18 08:50: Urine Color YELLOW, Urine Clarity CLEAR, Urine pH 5, Urine Specific [place] 1.015L, Urine Protein 2+H, Urine Glucose (UA) NEGATIVE, Urine Ketones NEGATIVE, Urine Nitrite NEGATIVE, Urine Bilirubin NEGATIVE, Urine Urobilinogen NORMAL, Urine Leukocyte Esterase NEGATIVE, Urine RBC (Auto) 1+H, Urine RBC 0-2, Urine WBC RARE, Urine Squamous Epithelial Cells NONE, Urine Crystals NONE, Urine Bacteria NEGATIVE, Urine Casts NONE, Urine Mucus NEGATIVE, Urine Culture Indicated NO 03/31/18 11:38: Glucometer 188H 03/31/18 16:09: Glucometer 188H 03/31/18 20:31: Glucometer 159H 04/01/18 02:30: Stool Occult Blood Immunoassay NEGATIVE 04/01/18 05:36: Glucometer 163H 04/01/18 05:37: White Blood Count 7.5, Red Blood Count 2.85L, Hemoglobin 7.9L, Hematocrit 26L, Mean Corpuscular Volume 91, Mean Corpuscular Hemoglobin 28, Mean Corpuscular Hemoglobin Concent 31L, Red Cell Distribution Width 14.8H, Platelet Count 193, Mean Platelet Volume 10.9H, Neutrophils (%) (Auto) 73, Lymphocytes (%) (Auto) 11L, Monocytes (%) (Auto) 8, Eosinophils (%) (Auto) 8, Basophils (%) (Auto) 0, Neutrophils # (Auto) 5.5, Lymphocytes # (Auto) 0.8L, Monocytes # (Auto) 0.6, Eosinophils # (Auto) 0.6H, Basophils # (Auto) 0.0, Sodium Level 143, Potassium Level 3.8, Chloride Level 101, Carbon Dioxide Level 29, Anion Gap 13, Blood Urea Nitrogen 77H, Creatinine 2.25H, Estimat Glomerular Filtration Rate 31, BUN/ Creatinine Ratio 34, Glucose Level 141H, Calcium Level 8.6 04/01/18 11:07: Glucometer 191H 04/01/18 16:41: Glucometer 213H 04/01/18 22:02: Glucometer 177H 04/02/18 05:48: Glucometer 179H 04/02/18 11:12: Glucometer 222H 04/02/18 11:41: White Blood Count 8.7, Red Blood Count 3.14L, Hemoglobin 8.8L, Hematocrit 28L, Mean Corpuscular Volume 90, Mean Corpuscular Hemoglobin 28, Mean Corpuscular Hemoglobin Concent 31L, Red Cell Distribution Width 14.7H, Platelet Count 203, Mean Platelet Volume 10.5H, Neutrophils (%) (Auto) 76H, Lymphocytes (%) (Auto) 8L, Monocytes (%) (Auto) 7, Eosinophils (%) (Auto) 8, Basophils (%) (Auto) 0, Neutrophils # (Auto) 6.7, Lymphocytes # (Auto) 0.7L, Monocytes # (Auto) 0.6, Eosinophils # (Auto) 0.7H, Basophils # (Auto) 0.0, Sodium Level 143, Potassium Level 3.8, Chloride Level 99, Carbon Dioxide Level 30, Anion Gap 14, Blood Urea Nitrogen 72H, Creatinine 2.00H, Estimat Glomerular Filtration Rate 35, BUN/ Creatinine Ratio 36, Glucose Level 206H, Calcium Level 8.9, Corrected Calcium 9.2, Total Bilirubin 0.5, Aspartate Amino Transf (AST/SGOT) 11, Alanine Aminotransferase (ALT/SGPT) 12, Alkaline Phosphatase 83, Total Protein 5.8L, Albumin 3.6 04/02/18 16:01: Glucometer 195H 04/02/18 21:23: Glucometer 247H 04/03/18 05:20: Glucometer 199H 04/03/18 06:31: White Blood Count 7.4, Red Blood Count 2.91L, Hemoglobin 8.2L, Hematocrit 27L, Mean Corpuscular Volume 91, Mean Corpuscular Hemoglobin 28, Mean Corpuscular Hemoglobin Concent 31L, Red Cell Distribution Width 14.6H, Platelet Count 187, Mean Platelet Volume 10.7H, Neutrophils (%) (Auto) 76H, Lymphocytes (%) (Auto) 9L, Monocytes (%) (Auto) 7, Eosinophils (%) (Auto) 8, Basophils (%) (Auto) 0, Neutrophils # (Auto) 5.6, Lymphocytes # (Auto) 0.6L, Monocytes # (Auto) 0.6, Eosinophils # (Auto) 0.6H, Basophils # (Auto) 0.0, Sodium Level 143, Potassium Level 3.6, Chloride Level 99, Carbon Dioxide Level 29, Anion Gap 15H, Blood Urea Nitrogen 74H, Creatinine 1.90H, Estimat Glomerular Filtration Rate 37, BUN/ Creatinine Ratio 39, Glucose Level 166H, Calcium Level 8.7, Corrected Calcium 9.2, Total Bilirubin 0.5, Aspartate Amino Transf (AST/SGOT) 16, Alanine Aminotransferase (ALT/SGPT) 13, Alkaline Phosphatase 83, Total Protein 5.6L, Albumin 3.4 04/03/18 11:02: Glucometer 188H 04/03/18 12:00: Lab Scanned Report Transfusion Reaction Form 04/03/18 14:30: Stool Occult Blood Immunoassay POSITIVEH 04/03/18 16:03: Glucometer 187H 04/03/18 20:38: Glucometer 235H 04/04/18 05:08: Glucometer 141H 04/04/18 09:20: White Blood Count 8.4, Red Blood Count 3.15L, Hemoglobin 8.8L, Hematocrit 29L, Mean Corpuscular Volume 91, Mean Corpuscular Hemoglobin 28, Mean Corpuscular Hemoglobin Concent 31L, Red Cell Distribution Width 14.3, Platelet Count 189, Mean Platelet Volume 10.5H, Neutrophils (%) (Auto) 78H, Lymphocytes (%) (Auto) 8L, Monocytes (%) (Auto) 7, Eosinophils (%) (Auto) 7, Basophils (%) (Auto) 0, Neutrophils # (Auto) 6.5, Lymphocytes # (Auto) 0.7L, Monocytes # (Auto) 0.6, Eosinophils # (Auto) 0.6H, Basophils # (Auto) 0.0, Sodium Level 142, Potassium Level 3.7, Chloride Level 98, Carbon Dioxide Level 30, Anion Gap 14, Blood Urea Nitrogen 72H, Creatinine 1.83H, Estimat Glomerular Filtration Rate 39, BUN/ Creatinine Ratio 39, Glucose Level 210H, Calcium Level 9.1, Vancomycin Level Trough 16.5 04/04/18 11:08: Glucometer 235H 04/04/18 15:59: Glucometer 169H 04/04/18 21:04: Glucometer 252H 04/05/18 04:50: White Blood Count 7.2, Red Blood Count 2.94L, Hemoglobin 8.2L, Hematocrit 27L, Mean Corpuscular Volume 91, Mean Corpuscular Hemoglobin 28, Mean Corpuscular Hemoglobin Concent 31L, Red Cell Distribution Width 14.3, Platelet Count 178, Mean Platelet Volume 11.1H, Sodium Level 143, Potassium Level 3.7, Chloride Level 98, Carbon Dioxide Level 30, Anion Gap 15H, Blood Urea Nitrogen 73H, Creatinine 1.82H, Estimat Glomerular Filtration Rate 39, BUN/Creatinine Ratio 40 , Glucose Level 162H, Calcium Level 9.0, Corrected Calcium 9.5, Total Bilirubin 0.5, Aspartate Amino Transf (AST/SGOT) 14, Alanine Aminotransferase (ALT/SGPT) 15, Alkaline Phosphatase 90, Total Protein 5.7L, Albumin 3.4 04/05/18 11:17: Glucometer 239H 04/05/18 15:54: Glucometer 232H 04/05/18 20:39: Glucometer 261H 04/05/18 22:06: Glucometer 285H 04/06/18 05:38: Glucometer 175H 04/06/18 06:15: White Blood Count 6.5, Red Blood Count 2.91L, Hemoglobin 8.0L, Hematocrit 27L, Mean Corpuscular Volume 91, Mean Corpuscular Hemoglobin 28, Mean Corpuscular Hemoglobin Concent 30L, Red Cell Distribution Width 13.9, Platelet Count 175, Mean Platelet Volume 10.6H, Sodium Level 142, Potassium Level 3.7, Chloride Level 98, Carbon Dioxide Level 29, Anion Gap 15H, Blood Urea Nitrogen 76H, Creatinine 1.98H, Estimat Glomerular Filtration Rate 36, BUN/Creatinine Ratio 38 , Glucose Level 160H, Calcium Level 8.9 04/06/18 11:10: Glucometer 283H 04/06/18 12:00: B-Type Natriuretic Peptide 609.2H 04/06/18 16:11: Glucometer 259H 04/06/18 20:06: Glucometer 245H 04/07/18 04:43: White Blood Count 7.4, Red Blood Count 3.05L, Hemoglobin 8.5L, Hematocrit 28L, Mean Corpuscular Volume 90, Mean Corpuscular Hemoglobin 28, Mean Corpuscular Hemoglobin Concent 31L, Red Cell Distribution Width 14.3, Platelet Count 202, Mean Platelet Volume 10.7H, Sodium Level 140, Potassium Level 4.0, Chloride Level 97L, Carbon Dioxide Level 29, Anion Gap 14, Blood Urea Nitrogen 75H, Creatinine 2.08H, Estimat Glomerular Filtration Rate 34, BUN/Creatinine Ratio 36 , Glucose Level 201H, Calcium Level 9.1, Corrected Calcium 9.3, Magnesium Level 2.5H, Total Bilirubin 0.5, Aspartate Amino Transf (AST/SGOT) 18, Alanine Aminotransferase (ALT/SGPT) 19, Alkaline Phosphatase 107, Total Protein 5.6L, Albumin 3.7 04/07/18 11:06: Glucometer 218H Microbiology 04/03/18 Blood Culture - Final, Complete No growth 04/03/18 C. difficile [facility] Antigen & Toxins - Final, Complete 03/29/18 MRSA Screen - Final, Complete MRSA not isolated Laboratory Tests 03/27/18 15:25 03/28/18 05:20 03/29/18 05:23 03/30/18 08:00 03/31/18 00:45 03/31/18 05:10 04/01/18 05:37 04/02/18 11:41 04/03/18 06:31 04/04/18 09:20 04/05/18 04:50 04/06/18 06:15 04/07/18 04:43 Pending Labs Microbiology Date/Time Source Procedure Growth Status 04/03/18 09:30 [facility] - Final No growth Complete 04/03/18 09:[address] [facility] Blood Culture - Final No growth Complete 03/31/18 01:00 Peripheral Rt Ac Blood Culture - Final No growth Complete 03/31/18 00:45 [facility] - Final Staph, Coag Neg (DIRECTOR OF RECRUITING) See Comments Complete 04/03/18 14:30 Stool C. difficile [facility] Antigen & Toxins - Final Complete 03/29/18 02:23 Nasal MRSA Screen - Final MRSA not isolated Complete Laboratory Tests 03/27/18 15:25: White Blood Count 8.4, Red Blood Count 2.94, Hemoglobin 8.2, Hematocrit 26, Mean Corpuscular Volume 90, Mean Corpuscular Hemoglobin 28, Mean Corpuscular Hemoglobin Concent 31, Red Cell Distribution Width 15.1, Platelet Count 211, Mean Platelet Volume 10.5, Sodium Level 142, Potassium Level 4.8, Chloride Level 107, Carbon Dioxide Level 23, Anion Gap 12, Blood Urea Nitrogen 71, Creatinine 2.08, Estimat Glomerular Filtration Rate 34, BUN/Creatinine Ratio 34 , Glucose Level 114, Calcium Level 8.9, Corrected Calcium 9.1, Total Bilirubin 0.6, Aspartate Amino Transf (AST/SGOT) 12, Alanine Aminotransferase (ALT/SGPT) 19, Alkaline Phosphatase 97, B-Type Natriuretic Peptide 591.1, Total Protein 6.1 , Albumin 3.8 03/28/18 05:20: White Blood Count 6.4, Red Blood Count 2.73, Hemoglobin 7.6, Hematocrit 25, Mean Corpuscular Volume 91, Mean Corpuscular Hemoglobin 28, Mean Corpuscular Hemoglobin Concent 31, Red Cell Distribution Width 15.1, Platelet Count 207, Mean Platelet Volume 10.7, Sodium Level 142, Potassium Level 4.1, Chloride Level 107, Carbon Dioxide Level 23, Anion Gap 12, Blood Urea Nitrogen 74, Creatinine 2.10, Estimat Glomerular Filtration Rate 33, BUN/Creatinine Ratio 35 , Glucose Level 161, Calcium Level 8.8, Corrected Calcium 9.2, Total Bilirubin 0.5, Aspartate Amino Transf (AST/SGOT) 11, Alanine Aminotransferase (ALT/SGPT) 17, Alkaline Phosphatase 88, B-Type Natriuretic Peptide 692.9, Total Protein 5.6 , Albumin 3.5, Triglycerides Level 86, Cholesterol Level 86, LDL Cholesterol Direct 44, VLDL Cholesterol 17, HDL Cholesterol 26 03/28/18 10:54: Glucometer 174 03/28/18 16:37: Glucometer 203 03/28/18 21:37: Glucometer 217 03/29/18 05:23: White Blood Count 7.2, Red Blood Count 2.75, Hemoglobin 7.9, Hematocrit 25, Mean Corpuscular Volume 90, Mean Corpuscular Hemoglobin 29, Mean Corpuscular Hemoglobin Concent 32, Red Cell Distribution Width 14.9, Platelet Count 199, Mean Platelet Volume 10.7, Sodium Level 142, Potassium Level 4.0, Chloride Level 105, Carbon Dioxide Level 24, Anion Gap 13, Blood Urea Nitrogen 72, Creatinine 2.12, Estimat Glomerular Filtration Rate 33, BUN/Creatinine Ratio 34 , Glucose Level 147, Calcium Level 8.8, Magnesium Level 2.4 03/29/18 05:34: Glucometer 158 03/29/18 12:14: Glucometer 138 03/29/18 17:12: Glucometer 139 03/29/18 21:06: Glucometer 262 03/30/18 05:04: Glucometer 147 03/30/18 08:00: White Blood Count 7.3, Red Blood Count 2.89, Hemoglobin 8.1, Hematocrit 27, Mean Corpuscular Volume 92, Mean Corpuscular Hemoglobin 28, Mean Corpuscular Hemoglobin Concent 30, Red Cell Distribution Width 15.0, Platelet Count 226, Mean Platelet Volume 10.0, Sodium Level 143, Potassium Level 4.1, Chloride Level 104, Carbon Dioxide Level 27, Anion Gap 12, Blood Urea Nitrogen 70, Creatinine 2.23, Estimat Glomerular Filtration Rate 31, BUN/Creatinine Ratio 31 , Glucose Level 151, Calcium Level 8.7 03/30/18 11:08: Glucometer 204 03/30/18 16:08: Glucometer 286 03/30/18 20:56: Glucometer 184 03/31/18 00:45: White Blood Count 9.0, Red Blood Count 2.74, Hemoglobin 7.8, Hematocrit 25, Mean Corpuscular Volume 92, Mean Corpuscular Hemoglobin 29, Mean Corpuscular Hemoglobin Concent 31, Red Cell Distribution Width 15.0, Platelet Count 223, Mean Platelet Volume 10.5, Neutrophils (%) (Auto) 82, Lymphocytes (%) (Auto) 7, Monocytes (%) (Auto) 6, Eosinophils (%) (Auto) 4, Basophils (%) (Auto) 0, Neutrophils # (Auto) 7.4, Lymphocytes # (Auto) 0.7, Monocytes # (Auto) 0.6, Eosinophils # (Auto) 0.4, Basophils # (Auto) 0.0, Neutrophils % (Manual) 84, Lymphocytes % (Manual) 6, Monocytes % (Manual) 8, Eosinophils % (Manual) 2, Basophilic Stippling SLIGHT, Tear Drop Cells SLIGHT 03/31/18 05:05: Glucometer 168 03/31/18 05:10: White Blood Count 7.1, Red Blood Count 2.61, Hemoglobin 7.4, Hematocrit 24, Mean Corpuscular Volume 92, Mean Corpuscular Hemoglobin 28, Mean Corpuscular Hemoglobin Concent 31, Red Cell Distribution Width 14.9, Platelet Count 197, Mean Platelet Volume 10.3, Sodium Level 142, Potassium Level 4.1, Chloride Level 103, Carbon Dioxide Level 26, Anion Gap 13, Blood Urea Nitrogen 72, Creatinine 2.42, Estimat Glomerular Filtration Rate 28, BUN/Creatinine Ratio 30 , Glucose Level 137, Calcium Level 8.6, Magnesium Level 2.8, B-Type Natriuretic Peptide 961.4, Thyroid Stimulating Hormone (TSH) 0.52 03/31/18 08:05: Lactic Acid Level 0.40 03/31/18 08:50: Urine Color YELLOW, Urine Clarity CLEAR, Urine pH 5, Urine Specific [place] 1.015, Urine Protein 2+, Urine Glucose (UA) NEGATIVE, Urine Ketones NEGATIVE, Urine Nitrite NEGATIVE, Urine Bilirubin NEGATIVE, Urine Urobilinogen NORMAL, Urine Leukocyte Esterase NEGATIVE, Urine RBC (Auto) 1+, Urine RBC 0-2, Urine WBC RARE, Urine Squamous Epithelial Cells NONE, Urine Crystals NONE, Urine Bacteria NEGATIVE, Urine Casts NONE, Urine Mucus NEGATIVE, Urine Culture Indicated NO 03/31/18 11:38: Glucometer 188 03/31/18 16:09: Glucometer 188 03/31/18 20:31: Glucometer 159 04/01/18 02:30: Stool Occult Blood Immunoassay NEGATIVE 04/01/18 05:36: Glucometer 163 04/01/18 05:37: White Blood Count 7.5, Red Blood Count 2.85, Hemoglobin 7.9, Hematocrit 26, Mean Corpuscular Volume 91, Mean Corpuscular Hemoglobin 28, Mean Corpuscular Hemoglobin Concent 31, Red Cell Distribution Width 14.8, Platelet Count 193, Mean Platelet Volume 10.9, Neutrophils (%) (Auto) 73, Lymphocytes (%) (Auto) 11 , Monocytes (%) (Auto) 8, Eosinophils (%) (Auto) 8, Basophils (%) (Auto) 0, Neutrophils # (Auto) 5.5, Lymphocytes # (Auto) 0.8, Monocytes # (Auto) 0.6, Eosinophils # (Auto) 0.6, Basophils # (Auto) 0.0, Sodium Level 143, Potassium Level 3.8, Chloride Level 101, Carbon Dioxide Level 29, Anion Gap 13, Blood Urea Nitrogen 77, Creatinine 2.25, Estimat Glomerular Filtration Rate 31, BUN/ Creatinine Ratio 34, Glucose Level 141, Calcium Level 8.6 04/01/18 11:07: Glucometer 191 04/01/18 16:41: Glucometer 213 04/01/18 22:02: Glucometer 177 04/02/18 05:48: Glucometer 179 04/02/18 11:12: Glucometer 222 04/02/18 11:41: White Blood Count 8.7, Red Blood Count 3.14, Hemoglobin 8.8, Hematocrit 28, Mean Corpuscular Volume 90, Mean Corpuscular Hemoglobin 28, Mean Corpuscular Hemoglobin Concent 31, Red Cell Distribution Width 14.7, Platelet Count 203, Mean Platelet Volume 10.5, Neutrophils (%) (Auto) 76, Lymphocytes (%) (Auto) 8, Monocytes (%) (Auto) 7, Eosinophils (%) (Auto) 8, Basophils (%) (Auto) 0, Neutrophils # (Auto) 6.7, Lymphocytes # (Auto) 0.7, Monocytes # (Auto) 0.6, Eosinophils # (Auto) 0.7, Basophils # (Auto) 0.0, Sodium Level 143, Potassium Level 3.8, Chloride Level 99, Carbon Dioxide Level 30, Anion Gap 14, Blood Urea Nitrogen 72, Creatinine 2.00, Estimat Glomerular Filtration Rate 35, BUN/ Creatinine Ratio 36, Glucose Level 206, Calcium Level 8.9, Corrected Calcium 9.2 , Total Bilirubin 0.5, Aspartate Amino Transf (AST/SGOT) 11, Alanine Aminotransferase (ALT/SGPT) 12, Alkaline Phosphatase 83, Total Protein 5.8, Albumin 3.6 04/02/18 16:01: Glucometer 195 04/02/18 21:23: Glucometer 247 04/03/18 05:20: Glucometer 199 04/03/18 06:31: White Blood Count 7.4, Red Blood Count 2.91, Hemoglobin 8.2, Hematocrit 27, Mean Corpuscular Volume 91, Mean Corpuscular Hemoglobin 28, Mean Corpuscular Hemoglobin Concent 31, Red Cell Distribution Width 14.6, Platelet Count 187, Mean Platelet Volume 10.7, Neutrophils (%) (Auto) 76, Lymphocytes (%) (Auto) 9, Monocytes (%) (Auto) 7, Eosinophils (%) (Auto) 8, Basophils (%) (Auto) 0, Neutrophils # (Auto) 5.6, Lymphocytes # (Auto) 0.6, Monocytes # (Auto) 0.6, Eosinophils # (Auto) 0.6, Basophils # (Auto) 0.0, Sodium Level 143, Potassium Level 3.6, Chloride Level 99, Carbon Dioxide Level 29, Anion Gap 15, Blood Urea Nitrogen 74, Creatinine 1.90, Estimat Glomerular Filtration Rate 37, BUN/ Creatinine Ratio 39, Glucose Level 166, Calcium Level 8.7, Corrected Calcium 9.2 , Total Bilirubin 0.5, Aspartate Amino Transf (AST/SGOT) 16, Alanine Aminotransferase (ALT/SGPT) 13, Alkaline Phosphatase 83, Total Protein 5.6, Albumin 3.4 04/03/18 11:02: Glucometer 188 04/03/18 12:00: Lab Scanned Report Transfusion Reaction Form 04/03/18 14:30: Stool Occult Blood Immunoassay POSITIVE 04/03/18 16:03: Glucometer 187 04/03/18 20:38: Glucometer 235 04/04/18 05:08: Glucometer 141 04/04/18 09:20: White Blood Count 8.4, Red Blood Count 3.15, Hemoglobin 8.8, Hematocrit 29, Mean Corpuscular Volume 91, Mean Corpuscular Hemoglobin 28, Mean Corpuscular Hemoglobin Concent 31, Red Cell Distribution Width 14.3, Platelet Count 189, Mean Platelet Volume 10.5, Neutrophils (%) (Auto) 78, Lymphocytes (%) (Auto) 8, Monocytes (%) (Auto) 7, Eosinophils (%) (Auto) 7, Basophils (%) (Auto) 0, Neutrophils # (Auto) 6.5, Lymphocytes # (Auto) 0.7, Monocytes # (Auto) 0.6, Eosinophils # (Auto) 0.6, Basophils # (Auto) 0.0, Sodium Level 142, Potassium Level 3.7, Chloride Level 98, Carbon Dioxide Level 30, Anion Gap 14, Blood Urea Nitrogen 72, Creatinine 1.83, Estimat Glomerular Filtration Rate 39, BUN/ Creatinine Ratio 39, Glucose Level 210, Calcium Level 9.1, Vancomycin Level Trough 16.5 04/04/18 11:08: Glucometer 235 04/04/18 15:59: Glucometer 169 04/04/18 21:04: Glucometer 252 04/05/18 04:50: White Blood Count 7.2, Red Blood Count 2.94, Hemoglobin 8.2, Hematocrit 27, Mean Corpuscular Volume 91, Mean Corpuscular Hemoglobin 28, Mean Corpuscular Hemoglobin Concent 31, Red Cell Distribution Width 14.3, Platelet Count 178, Mean Platelet Volume 11.1, Sodium Level 143, Potassium Level 3.7, Chloride Level 98, Carbon Dioxide Level 30, Anion Gap 15, Blood Urea Nitrogen 73, Creatinine 1.82, Estimat Glomerular Filtration Rate 39, BUN/Creatinine Ratio 40 , Glucose Level 162, Calcium Level 9.0, Corrected Calcium 9.5, Total Bilirubin 0.5, Aspartate Amino Transf (AST/SGOT) 14, Alanine Aminotransferase (ALT/SGPT) 15, Alkaline Phosphatase 90, Total Protein 5.7, Albumin 3.4 04/05/18 11:17: Glucometer 239 04/05/18 15:54: Glucometer 232 04/05/18 20:39: Glucometer 261 04/05/18 22:06: Glucometer 285 04/06/18 05:38: Glucometer 175 04/06/18 06:15: White Blood Count 6.5, Red Blood Count 2.91, Hemoglobin 8.0, Hematocrit 27, Mean Corpuscular Volume 91, Mean Corpuscular Hemoglobin 28, Mean Corpuscular Hemoglobin Concent 30, Red Cell Distribution Width 13.9, Platelet Count 175, Mean Platelet Volume 10.6, Sodium Level 142, Potassium Level 3.7, Chloride Level 98, Carbon Dioxide Level 29, Anion Gap 15, Blood Urea Nitrogen 76, Creatinine 1.98, Estimat Glomerular Filtration Rate 36, BUN/Creatinine Ratio 38 , Glucose Level 160, Calcium Level 8.9 04/06/18 11:10: Glucometer 283 04/06/18 12:00: B-Type Natriuretic Peptide 609.2 04/06/18 16:11: Glucometer 259 04/06/18 20:06: Glucometer 245 04/07/18 04:43: White Blood Count 7.4, Red Blood Count 3.05, Hemoglobin 8.5, Hematocrit 28, Mean Corpuscular Volume 90, Mean Corpuscular Hemoglobin 28, Mean Corpuscular Hemoglobin Concent 31, Red Cell Distribution Width 14.3, Platelet Count 202, Mean Platelet Volume 10.7, Sodium Level 140, Potassium Level 4.0, Chloride Level 97, Carbon Dioxide Level 29, Anion Gap 14, Blood Urea Nitrogen 75, Creatinine 2.08, Estimat Glomerular Filtration Rate 34, BUN/Creatinine Ratio 36 , Glucose Level 201, Calcium Level 9.1, Corrected Calcium 9.3, Magnesium Level 2.5, Total Bilirubin 0.5, Aspartate Amino Transf (AST/SGOT) 18, Alanine Aminotransferase (ALT/SGPT) 19, Alkaline Phosphatase 107, Total Protein 5.6, Albumin 3.7 04/07/18 11:06: Glucometer 218 Discharge Home Medications: Active Scripts Active Hydralazine HCl 25 Mg Tablet 50 Mg PO Q8HR Metolazone 5 Mg Tablet 5 Mg PO UD Take one tablet on Tuesday, Tuesday and Tuesday Furosemide 40 Mg Tablet 80 Mg PO DAILY@07,17 Reported Pantoprazole Sodium 40 Mg Tablet.dr 40 Mg PO DAILY Ferrous Sulfate 325 Mg Tablet 325 Mg PO BID Allergy Relief (Fexofenadine HCl) 180 Mg Tablet 180 Mg PO 1700 Rosuvastatin Calcium 5 Mg Tablet 5 Mg PO HS Glimepiride 4 Mg Tablet 4 Mg PO DAILY Aspirin EC (Aspirin) 81 Mg Tablet.dr 81 Mg PO DAILY Metoprolol Tartrate 50 Mg Tablet 50 Mg PO BID Gabapentin 300 Mg Capsule 600 Mg PO TID TAKES 2 (300 MG) CAPSULES Instructions to patient/family Please see electronic discharge instructions given to patient. Clinical Quality Measures DVT/VTE Risk/Contraindication: Contraindications-Pharm: Other *list below* Contraindications-Mechi: Other *list below* MARIIA SIM DO Apr 10, 2018 07:36
--- NOTE | 2018-04-10 16:24 | Physician Query Clarification ---
PQ-Uncertain Diagnosis Admission/Discharge Admission Date: Mar 27, 2018 at 13:24 Discharge Date: Apr 07, 2018 at 17:10 The medical record reflects the following clinical scenario: History/Risk Factors: fever, hypoxia Clinical Findings: abnormal chest xray Treatment: antibiotics Question: Is pneumonia, atelectasis, hypoxia and effusion a clinically valid diagnosis? pneumonia, atelectasis, hypoxia and effusion was documented in the Dr. Grajeda progress notes from 04/03 and forward with no further documentation in the medical record. Please document a response below. PHYSICIAN RESPONSE Diagnosis clinically valid: Yes, Conditon resolved In responding to this query, please exercise your independent professional judgment. The purpose of this communication is to more accurately reflect the complexity of your patients condition. The fact that a question is asked does not imply that any particular answer is desired or expected. Thank you for your timely response to this clarification. Requestors name: [ ] Phone # [ ] THIS PHYSICIAN QUERY FORM IS A PERMANENT PART OF THE MEDICAL RECORD RUDDY ESPINOZA Apr 10, 2018 16:23 MARIIA SIM DO Apr 11, 2018 07:20
--- NOTE | 2018-04-10 16:30 | Physician Query Clarification ---
PQ-CHF Specificity The medical record reflects the following clinical scenario: History/Risk Factors: volume overload, HTN, DM Clinical Findings: ejection fraction 45-50% Treatment: PO Lasix Dr Perez's note: Congestive heart failure, acute left ventricular systolic dysfunction, echocardiogram showed ejection fraction 45-50 percent, grade 2 diastolic dysfunction, dilated left atrium measuring 6.1 cm. Josué Gao's note: CHF EF 45-50% grade 2 diastolic failure with pulmonary HTN Question: Can you further specify the acuity &/or type of CHF per the clinical indicators above? Please document a response below PHYSICIAN RESPONSE Acuity: Acute on Chronic Type: Systolic & Diastolic In responding to this query, please exercise your independent professional judgment. The purpose of this communication is to more accurately reflect the complexity of your patients condition. The fact that a question is asked does not imply that any particular answer is desired or expected. Thank you for your timely response to this clarification. Requestors name: [ ] Phone # [ ] THIS PHYSICIAN QUERY FORM IS A PERMANENT PART OF THE MEDICAL RECORD RUDDY ESPINOZA Apr 10, 2018 16:30 KAREN PEREZ MD Apr 11, 2018 10:32
--- NOTE | 2018-04-12 12:34 | Physician Query-General Query ---
Physician Query-General Query to Physician: Dr. Sim, Dr Perez has indicated that patient has acute on chronic systolic and diastolic heart failure. Do you agree the etiology of the volume overload is CHF or is it due to other factors? PHYSICIAN RESPONSE: Based on the clinical findings in the record, please respond to the query above on this document as an addendum. Possible, probable, or questionable diagnosis can be coded for INPATIENTS ONLY. Physician Response: Physician Response He I agree with Dr. Galicia If you have questions please contact: Blacking Machine Operator: Ext: Thank you for your time and cooperation. Clinical Emt I/99/Blacking Machine Operator This is a permanent part of the medical record RUDDY ESPINOZA Apr 12, 2018 12:34 MARIIA SIM DO Apr 13, 2018 07:23
== END 2018-04-07 17:10 | disposition home health service (06) | DRG 291 ==
LOC: 4TH 13:24
PROVIDERS: ADMIT Family Medicine; ATTEND Family Medicine
PROC: 0JH60XZ Insertion of Tunneled Vascular Access Device into Chest Subcutaneous Tissue and Fascia, Open Approach (ICD-10-PCS; 2018-03-29)
PROC: 02HV33Z Insertion of Infusion Device into Superior Vena Cava, Percutaneous Approach (ICD-10-PCS; principal; 2018-03-29 15:00)
DX: I13.0 Hypertensive heart and chronic kidney disease with heart failure and stage 1 through stage 4 chronic kidney disease, or unspecified chronic kidney disease (principal); I50.43 Acute on chronic combined systolic (congestive) and diastolic (congestive) heart failure; E87.70 Fluid overload, unspecified; N17.9 Acute kidney failure, unspecified; I42.9 Cardiomyopathy, unspecified; Z68.42 Body mass index [BMI] 45.0-49.9, adult; J18.9 Pneumonia, unspecified organism; J98.11 Atelectasis; J90 Pleural effusion, not elsewhere classified; R78.81 Bacteremia; T80.212A Local infection due to central venous catheter, initial encounter; I27.20 Pulmonary hypertension, unspecified; E11.21 Type 2 diabetes mellitus with diabetic nephropathy; N18.3 Chronic kidney disease, stage 3 (moderate); E11.51 Type 2 diabetes mellitus with diabetic peripheral angiopathy without gangrene; E11.319 Type 2 diabetes mellitus with unspecified diabetic retinopathy without macular edema; E11.40 Type 2 diabetes mellitus with diabetic neuropathy, unspecified; I25.10 Atherosclerotic heart disease of native coronary artery without angina pectoris; D64.9 Anemia, unspecified; E66.9 Obesity, unspecified; E78.5 Hyperlipidemia, unspecified; K52.9 Noninfective gastroenteritis and colitis, unspecified; F41.9 Anxiety disorder, unspecified; F32.9 Major depressive disorder, single episode, unspecified; N52.9 Male erectile dysfunction, unspecified; Z91.11 Patient's noncompliance with dietary regimen; Z95.5 Presence of coronary angioplasty implant and graft; Z95.828 Presence of other vascular implants and grafts; Z87.01 Personal history of pneumonia (recurrent); Z79.84 Long term (current) use of oral hypoglycemic drugs
CPT/HCPCS: 36415; 71045; 71046; 71250; 80048; 80053; 80061; 80202; 81000; 82274; 82962; 83605; 83735; 83880; 84443; 85007; 85025; 85027; 86850; 86900; 86901; 86920; 87040; 87081; 87324; 87449; 93306; 93970; 94760; G0378

== ENCOUNTER → 2018-04-13 | Outpatient (CLI) | payer BC ==
[~2018-04-13] MED LIST changes: +METO5TAB6 PO
[2018-04-13 08:08] LABS: BASOPHILS % (AUTO) 1 % (0-10); EOSINOPHILS # (AUTO) 0.5 10^3/uL (0.0-0.3); EOSINOPHILS % (AUTO) 7 % (0-10); HEMATOCRIT 28 % (40-54); HEMOGLOBIN 8.8 G/DL (13.3-17.7); LYMPHOCYTES # (AUTO) 0.9 X 10^3 (1.0-4.0); LYMPHOCYTES % (AUTO) 13 % (12-44); MEAN CORPUSCULAR HEMOGLOBIN 28 PG (25-34); MEAN CORPUSCULAR HGB CONC 31 G/DL (32-36); MEAN CORPUSCULAR VOLUME 90 FL (80-99); MEAN PLATELET VOLUME 10.7 FL (7.4-10.4); MONOCYTES # (AUTO) 0.6 X 10^3 (0.0-1.0); MONOCYTES % (AUTO) 8 % (0-12); NEUTROPHILS # (AUTO) 5.3 X 10^3 (1.8-7.8); NEUTROPHILS % (AUTO) 71 % (42-75); PLATELET COUNT 253 10^3/uL (130-400); RED BLOOD COUNT 3.15 10^6/uL (4.35-5.85); RED CELL DISTRIBUTION WIDTH 14.7 % (10.0-14.5); WHITE BLOOD COUNT 7.4 10^3/uL (4.3-11.0)
[2018-04-13 08:19] LABS: CALCIUM 9.5 MG/DL (8.5-10.1); CREATININE SERUM 2.2 MG/DL (0.60-1.30); POTASSIUM 3.7 MMOL/L (3.6-5.0)
== END ==
LOC: LAB 07:41
PROVIDERS: ATTEND Family Medicine
DX: E11.9 Type 2 diabetes mellitus without complications (principal); N28.9 Disorder of kidney and ureter, unspecified; R60.1 Generalized edema
CPT/HCPCS: 36415; 80048; 85025

== ENCOUNTER 2018-04-18 11:13 | Outpatient (CLI) | payer BC ==
[~2018-04-18] VITALS: Ht 180.3 cm; Wt 145.8 kg
[2018-04-18 11:39] VITALS: BP 134/73
[2018-04-18 12:38] LABS: BASOPHILS % (AUTO) 0 % (0-10); EOSINOPHILS # (AUTO) 0.6 10^3/uL (0.0-0.3); EOSINOPHILS % (AUTO) 6 % (0-10); HEMATOCRIT 29 % (40-54); HEMOGLOBIN 8.8 G/DL (13.3-17.7); LYMPHOCYTES # (AUTO) 0.8 X 10^3 (1.0-4.0); LYMPHOCYTES % (AUTO) 9 % (12-44); MEAN CORPUSCULAR HEMOGLOBIN 27 PG (25-34); MEAN CORPUSCULAR HGB CONC 30 G/DL (32-36); MEAN CORPUSCULAR VOLUME 90 FL (80-99); MEAN PLATELET VOLUME 11.4 FL (7.4-10.4); MONOCYTES # (AUTO) 0.6 X 10^3 (0.0-1.0); MONOCYTES % (AUTO) 7 % (0-12); NEUTROPHILS # (AUTO) 6.6 X 10^3 (1.8-7.8); NEUTROPHILS % (AUTO) 77 % (42-75); PLATELET COUNT 251 10^3/uL (130-400); RED BLOOD COUNT 3.27 10^6/uL (4.35-5.85); RED CELL DISTRIBUTION WIDTH 14.5 % (10.0-14.5); WHITE BLOOD COUNT 8.6 10^3/uL (4.3-11.0)
[2018-04-19 11:34] LABS: CALCIUM 9.1 MG/DL (8.5-10.1); CREATININE SERUM 2.17 MG/DL (0.60-1.30); POTASSIUM 4.3 MMOL/L (3.6-5.0)
== END 2018-04-18 12:05 | disposition home or self-care (01) ==
LOC: LAB 11:13
PROVIDERS: ATTEND Family Medicine
DX: D64.9 Anemia, unspecified (principal); N28.9 Disorder of kidney and ureter, unspecified
CPT/HCPCS: 36415; 36591; 80048; 85025

== ENCOUNTER → 2018-04-25 | Outpatient (CLI) | payer BC ==
[2018-04-25 11:10] LABS: ALBUMIN 4.1 GM/DL (3.2-4.5); CALCIUM 9.7 MG/DL (8.5-10.1); CREATININE SERUM 2.09 MG/DL (0.60-1.30); PHOSPHORUS 4.1 MG/DL (2.3-4.7); POTASSIUM 4.8 MMOL/L (3.6-5.0)
[2018-04-25 11:25] LABS: BILIRUBIN,URINE NEGATIVE (NEGATIVE); CLARITY,URINE CLEAR; COLOR,URINE YELLOW; GLUCOSE, URINE (UA) NEGATIVE (NEGATIVE); KETONES,URINE NEGATIVE (NEGATIVE); LEUKOCYTE ESTERASE ,URINE NEGATIVE (NEGATIVE); NITRITE,URINE NEGATIVE (NEGATIVE); PH,URINE 6.5 (5-9); PROTEIN,URINE 3+ (NEGATIVE); UROBILINOGEN,URINE NORMAL (NORMAL)
[2018-04-25 11:49] LABS: BACTERIA,URINE NEGATIVE /HPF; SQUAMOUS EPITHELIAL CELL,UR 0-2 /HPF; URINE OTHER FEW SPERM /HPF; WBC,URINE 0-2 /HPF
== END ==
LOC: LAB 10:27
PROVIDERS: ATTEND Family Medicine
DX: N28.9 Disorder of kidney and ureter, unspecified (principal)
CPT/HCPCS: 36415; 80069; 81000; 82570; 84156

== ENCOUNTER → 2018-05-16 | Outpatient (CLI) | payer BC ==
--- NOTE | 2018-05-16 12:16 | Diagnostic Imaging Report ---
PROCEDURE: US DOPPLER ABD/COMPLETE. TECHNIQUE: Multiple real-time grayscale images were obtained over the kidneys in various projections. Duplex evaluation of renal arteries was also attempted. INDICATION: Chronic kidney disease. Hypertension. COMPARISON: None available. FINDINGS: Right side: Right kidney is normal in size measuring 12 cm in length. There is no hydronephrosis or suspicious mass lesion. The following measurements were made for the right renal vasculature and are as follows: Main renal artery: Color Doppler imaging shows patency of the main renal artery. The proximal aspect of the main renal artery is obscured by overlying bowel gas. The mid and distal renal artery have normal low resistant arterial waveforms and no elevated peak systolic velocity. Maximal peak systolic velocity is 32 cm/s. Interlobular/arcuate arteries: Interlobular artery evaluated has normal low resistant arterial waveforms without features of proximal stenosis. PSV:Aorta : 0.5 Left side: Left kidney is normal in size measuring 14 cm. There is no hydronephrosis or suspicious mass lesion. The following measurements were made for the left renal vasculature and are as follows: Main renal artery: Main renal artery is patent by color Doppler imaging. There are normal low resistant waveforms throughout the main renal artery without elevated peak systolic velocities. Maximal peak systolic velocity is 34 cm/s. Interlobular/arcuate arteries: Evaluated interlobular arteries have normal low resistant arterial waveforms and no elevated velocities. PSV:Aorta : 0.53 Pre-void urinary bladder volume is 620 mL. Post-void bladder volume is 135 mL. IMPRESSION: 1. No sonographic features of renal artery stenosis. 2. Post-void residual is 135 mL. Abnormal Parameters: PSV > 200 cm/s PSV:Aorta > 3.5 Acceleration Index < 300 cm/sec2 Acceleration time > 70 msec Dictated by: Dictated on workstation # [id number]
== END ==
LOC: RAD 07:17
PROVIDERS: ATTEND Nurse Practitioner
DX: I12.9 Hypertensive chronic kidney disease with stage 1 through stage 4 chronic kidney disease, or unspecified chronic kidney disease (principal); N18.3 Chronic kidney disease, stage 3 (moderate); E11.22 Type 2 diabetes mellitus with diabetic chronic kidney disease; E11.21 Type 2 diabetes mellitus with diabetic nephropathy; I25.10 Atherosclerotic heart disease of native coronary artery without angina pectoris; D63.1 Anemia in chronic kidney disease; E78.00 Pure hypercholesterolemia, unspecified; R31.9 Hematuria, unspecified; R60.9 Edema, unspecified
CPT/HCPCS: 76856; 93975

== ENCOUNTER → 2018-06-05 | Outpatient (CLI) | payer BC ==
[2018-06-05 10:02] LABS: BILIRUBIN,URINE NEGATIVE (NEGATIVE); CLARITY,URINE CLEAR; COLOR,URINE YELLOW; GLUCOSE, URINE (UA) 2+ (NEGATIVE); KETONES,URINE NEGATIVE (NEGATIVE); LEUKOCYTE ESTERASE ,URINE NEGATIVE (NEGATIVE); NITRITE,URINE NEGATIVE (NEGATIVE); PH,URINE 6 (5-9); PROTEIN,URINE 3+ (NEGATIVE); UROBILINOGEN,URINE NORMAL (NORMAL)
[2018-06-05 10:09] LABS: BACTERIA,URINE NEGATIVE /HPF; SQUAMOUS EPITHELIAL CELL,UR 0-2 /HPF; WBC,URINE 0-2 /HPF
[2018-06-05 10:12] LABS: BASOPHILS % (AUTO) 1 % (0-10); EOSINOPHILS # (AUTO) 0.5 10^3/uL (0.0-0.3); EOSINOPHILS % (AUTO) 7 % (0-10); HEMATOCRIT 34 % (40-54); HEMOGLOBIN 10.8 G/DL (13.3-17.7); LYMPHOCYTES # (AUTO) 1.1 X 10^3 (1.0-4.0); LYMPHOCYTES % (AUTO) 15 % (12-44); MEAN CORPUSCULAR HEMOGLOBIN 26 PG (25-34); MEAN CORPUSCULAR HGB CONC 32 G/DL (32-36); MEAN CORPUSCULAR VOLUME 83 FL (80-99); MONOCYTES # (AUTO) 0.6 X 10^3 (0.0-1.0); MONOCYTES % (AUTO) 8 % (0-12); NEUTROPHILS # (AUTO) 5.4 X 10^3 (1.8-7.8); NEUTROPHILS % (AUTO) 71 % (42-75); PLATELET COUNT 197 10^3/uL (130-400); RED BLOOD COUNT 4.09 10^6/uL (4.35-5.85); RED CELL DISTRIBUTION WIDTH 14.3 % (10.0-14.5); WHITE BLOOD COUNT 7.7 10^3/uL (4.3-11.0)
[2018-06-05 10:33] LABS: CALCIUM 9.4 MG/DL (8.5-10.1); CREATININE SERUM 2.3 MG/DL (0.60-1.30); MAGNESIUM 2.3 MG/DL (1.8-2.4); PHOSPHORUS 5.1 MG/DL (2.3-4.7); POTASSIUM 4.5 MMOL/L (3.6-5.0); URIC ACID 10.8 MG/DL (2.6-7.2)
== END ==
LOC: LAB 09:46
PROVIDERS: ATTEND Nurse Practitioner
DX: I25.10 Atherosclerotic heart disease of native coronary artery without angina pectoris (principal); I12.9 Hypertensive chronic kidney disease with stage 1 through stage 4 chronic kidney disease, or unspecified chronic kidney disease; D63.1 Anemia in chronic kidney disease; N18.3 Chronic kidney disease, stage 3 (moderate); E11.21 Type 2 diabetes mellitus with diabetic nephropathy; R60.9 Edema, unspecified; R31.9 Hematuria, unspecified; E78.00 Pure hypercholesterolemia, unspecified; R80.9 Proteinuria, unspecified
CPT/HCPCS: 36415; 80069; 81000; 82306; 82570; 82728; 83036; 83540; 83735; 83970; 84156; 84550; 85025; 86021; 86038; 86160

== ENCOUNTER 2018-08-09 06:19 | Emergency (ER) | payer BC ==
[~2018-08-09] VITALS: Ht 177.8 cm; Wt 122.5 kg
[~2018-08-09 06:19] MED LIST changes: -AMLO10TA6 PO; +AMLO10TA7 PO; -AMLO5TAB7 PO; +AMLO5TAB9 PO; +LOSA100T57 PO; -LOSA100T8 PO
[2018-08-09] MEDS ORDERED: NS IV 1000 ML 1,000 ML IV ONE (06:34)
[2018-08-09] MEDS ORDERED: fentaNYL INJECTION 100 MCG/2 ML AMP IVP ONE ×2 (06:45→07:30)
[2018-08-09 06:55] LABS: BASOPHILS % (AUTO) 0 % (0-10); EOSINOPHILS # (AUTO) 0.4 10^3/uL (0.0-0.3); EOSINOPHILS % (AUTO) 5 % (0-10); HEMATOCRIT 35 % (40-54); HEMOGLOBIN 11.1 G/DL (13.3-17.7); LYMPHOCYTES # (AUTO) 1.1 X 10^3 (1.0-4.0); LYMPHOCYTES % (AUTO) 12 % (12-44); MEAN CORPUSCULAR HEMOGLOBIN 27 PG (25-34); MEAN CORPUSCULAR HGB CONC 32 G/DL (32-36); MEAN CORPUSCULAR VOLUME 84 FL (80-99); MEAN PLATELET VOLUME 10.6 FL (7.4-10.4); MONOCYTES # (AUTO) 0.6 X 10^3 (0.0-1.0); MONOCYTES % (AUTO) 6 % (0-12); NEUTROPHILS # (AUTO) 6.8 X 10^3 (1.8-7.8); NEUTROPHILS % (AUTO) 77 % (42-75); PLATELET COUNT 177 10^3/uL (130-400); RED CELL DISTRIBUTION WIDTH 14.3 % (10.0-14.5); WHITE BLOOD COUNT 8.8 10^3/uL (4.3-11.0)
--- NOTE | 2018-08-09 06:58 | ED Abdominal Pain ---
General Chief Complaint: Abdominal/GI Problems Stated Complaint: SOB, LOWER BACK PAIN Nursing Triage Note: PT REPORTS LLQ PAIN WITH CRAMPING THAT ONSET YESTERDAY, INCREASED IN SEVERITY AT 0400 THIS AM. NAUSEA AND VOMITING DENIED. DENIES LOOSE STOOLS Sepsis Screen: No Definite Risk Source of Information: Patient, Old Records Exam Limitations: No Limitations History of Present Illness Date Seen by Provider: Aug 09, 2018 Time Seen by Provider: 06:25 Initial Comments This 53 year old gentleman presents to the ER with complaints of fairly intense left flank pain. Pain started more subtly in his left lower back last night. He presumes this to be "kidney pain" or musculoskeletal pain. He tried treating with a heating pad. Pain intensified this morning and he is in obvious discomfort at this time. He denies nausea, vomiting, or diarrhea. He denies any fever. He has not noted any urinary changes. He has no history of renal stones. He does have renal failure, heart disease, diabetes, and sleep apnea. Pain worsens with breathing and movement. Allergies and Home Medications Allergies Coded Allergies: tazobactam (Verified Allergy, Unknown, RASH, 02/10/18) Home Medications Aspirin 81 Mg Tablet.dr, 81 MG PO DAILY, (Reported) Doxycycline Hyclate 100 Mg Capsule, 100 MG PO BID Prescribed by: CASS BULL on 08/09/18 0953 Ferrous Sulfate 325 Mg Tablet, 325 MG PO BID, (Reported) Fexofenadine HCl 180 Mg Tablet, 180 MG PO 1700, (Reported) Furosemide 40 Mg Tablet, 80 MG PO DAILY@07,17 Prescribed by: KAREN YANG on 04/07/18 08 Gabapentin 300 Mg Capsule, 600 MG PO TID, (Reported) TAKES 2 (300 MG) CAPSULES Glimepiride 4 Mg Tablet, 4 MG PO DAILY, (Reported) Hydralazine HCl 25 Mg Tablet, 50 MG PO Q8HR Prescribed by: KAREN YANG on 04/07/18 08 Hydrocodone/Acetaminophen 1 Each Tablet, 1 TAB PO Q4-6HR PRN for PAIN-MODERATE TO SEVERE Prescribed by: CASS BULL on 08/09/18 0905 Metolazone 5 Mg Tablet, 5 MG PO UD Take one tablet on Tuesday, Tuesday and Tuesday Prescribed by: KAREN YANG on 04/07/18 0813 Metoprolol Tartrate 50 Mg Tablet, 50 MG PO BID, (Reported) Pantoprazole Sodium 40 Mg Tablet.dr, 40 MG PO DAILY, (Reported) Rosuvastatin Calcium 5 Mg Tablet, 5 MG PO HS, (Reported) Patient Home Medication List Home Medication List Reviewed: Yes Review of Systems Review of Systems Constitutional: no symptoms reported EENTM: No Symptoms Reported Respiratory: See HPI Cardiovascular: No Symptoms Reported Gastrointestinal: See HPI Genitourinary: See HPI Musculoskeletal: no symptoms reported Skin: no symptoms reported Psychiatric/Neurological: No Symptoms Reported Endocrine: No Symptoms Reported Hematologic/Lymphatic: No Symptoms Reported Past Szeemod-Xtylba-Rwxand Hx Past Med/Social Hx: Reviewed Nursing Past Med/Soc Hx Patient Social History 2nd Hand Smoke Exposure: No Recent Foreign Travel: No Contact w/Someone Who Travel: No Recent Infectious Disease Expo: No Recent Hopitalizations: Yes (PNEUMONIA, SPINAL SURGERY) Immunizations Up To Date Tetanus Booster (TDap): Unknown Date of Pneumonia Vaccine: Jun 16, 2015 Date of Influenza Vaccine: Mar 20, 2018 Seasonal Allergies Seasonal Allergies: No Past Medical History Surgeries: Yes (NASAL POLYPS REMOVED CHILD, heart cath x2,cystoscopy, ) Cardiac, Coronary Stent, Nose Respiratory: Yes Pneumonia, Sleep Apnea Currently Using CPAP: Yes Currently Using BIPAP: No Cardiac: Yes (PAD, stent placed in 06/30) Cardiomyopathy, Coronary Artery Disease, Hypertension, Irregular Heartbeat, Peripheral Vascular Neurological: Yes (NEUROPATHY IN LEGS/ FEET) Neuropathy Reproductive Disorders: Yes (E.D.) Sexually Transmitted Disease: No HIV/AIDS: No Genitourinary: Yes Renal Failure Gastrointestinal: Yes Chronic Diarrhea Musculoskeletal: Yes Arthritis, Chronic Back Pain Endocrine: Yes Diabetes, Non-Insulin dep HEENT: No (DIABETIC RETINOPATHY) Cancer: No Psychosocial: Yes Anxiety, Depression Integumentary: No Blood Disorders: No Adverse Reaction/Blood Tranf: No Family Medical History Reviewed Nursing Family Hx Arthritis G8 BROTHER (knee replacement) Cardiovascular disease 19 FATHER (chf) Deafness or hearing loss 19 MOTHER (vertigo) Diabetes mellitus 19 MOTHER Prostate cancer 19 FATHER No Pertinent Family Hx, Hypertension Physical Exam Vital Signs Vital Signs - First Documented 08/09/18 06:45 Temp 98.4 Pulse 80 Resp 20 B/P (MAP) 174/110 (131) Pulse Ox 96 O2 Delivery Room Air Capillary Refill : Less Than 3 Seconds Height/Weight/BMI Height: 5'10.00" Weight: 270lbs. 6.0oz. 122.462264sf; 46.7 BMI Method:Stated General Appearance: WD/WN, no apparent distress HEENT: PERRL/EOMI, normal ENT inspection Neck: normal inspection Respiratory: lungs clear, normal breath sounds, no respiratory distress, no accessory muscle use Cardiovascular: regular rate, rhythm, no edema, no murmur Gastrointestinal: normal bowel sounds, soft, tenderness (tenderness in the left flank and throughout the left side of the abdomen) Extremities: normal inspection, no pedal edema Neurologic/Psychiatric: cardiac technologist II-XII nml as tested, no motor/sensory deficits, alert, normal mood/affect, oriented x 3 Skin: normal color, warm/dry Procedures/Interventions Date of ETT Placement: Feb 03, 2018 Time of ETT Placement: 0503 Progress/Results/Core Measures Results/Orders Lab Results Laboratory Tests Test 08/09/18 06:50 08/09/18 08:00 Range/Units White Blood Count 8.8 4.3-11.0 10^3/uL Red Blood Count 4.12 L 4.35-5.85 10^6/uL Hemoglobin 11.1 L 13.3-17.7 G/DL Hematocrit 35 L 40-54 % Mean Corpuscular Volume 84 80-99 FL Mean Corpuscular Hemoglobin 27 25-34 PG Mean Corpuscular Hemoglobin Concent 32 32-36 G/DL Red Cell Distribution Width 14.3 10.0-14.5 % Platelet Count 177 130-400 10^3/uL Mean Platelet Volume 10.6 H 7.4-10.4 FL Neutrophils (%) (Auto) 77 H 42-75 % Lymphocytes (%) (Auto) 12 12-44 % Monocytes (%) (Auto) 6 0-12 % Eosinophils (%) (Auto) 5 0-10 % Basophils (%) (Auto) 0 0-10 % Neutrophils # (Auto) 6.8 1.8-7.8 X 10^3 Lymphocytes # (Auto) 1.1 1.0-4.0 X 10^3 Monocytes # (Auto) 0.6 0.0-1.0 X 10^3 Eosinophils # (Auto) 0.4 H 0.0-0.3 10^3/uL Basophils # (Auto) 0.0 0.0-0.1 10^3/uL Sodium Level 140 135-145 MMOL/L Potassium Level 4.4 3.6-5.0 MMOL/L Chloride Level 99 98-107 MMOL/L Carbon Dioxide Level 27 21-32 MMOL/L Anion Gap 14 5-14 MMOL/L Blood Urea Nitrogen 86 H 7-18 MG/DL Creatinine 2.57 H 0.60-1.30 MG/DL Estimat Glomerular Filtration Rate 26 BUN/Creatinine Ratio 33 Glucose Level 382 H 70-105 MG/DL Calcium Level 9.4 8.5-10.1 MG/DL Corrected Calcium 9.3 8.5-10.1 MG/DL Total Bilirubin 0.6 0.1-1.0 MG/DL Aspartate Amino Transf (AST/SGOT) 18 5-34 U/L Alanine Aminotransferase (ALT/SGPT) 25 0-55 U/L Alkaline Phosphatase 88 40-136 U/L C-Reactive Protein High Sensitivity 0.89 H 0.00-0.50 MG/DL Total Protein 6.8 6.4-8.2 GM/DL Albumin 4.1 3.2-4.5 GM/DL Lipase 18 8-78 U/L Urine Color YELLOW Urine Clarity CLEAR Urine pH 6 5-9 Urine Specific Browning 1.010 L 1.016-1.022 Urine Protein 3+ H NEGATIVE Urine Glucose (UA) 3+ H NEGATIVE Urine Ketones NEGATIVE NEGATIVE Urine Nitrite NEGATIVE NEGATIVE Urine Bilirubin NEGATIVE NEGATIVE Urine Urobilinogen NORMAL NORMAL MG/DL Urine Leukocyte Esterase NEGATIVE NEGATIVE Urine RBC (Auto) 3+ H NEGATIVE Urine RBC 10-25 H /HPF Urine WBC RARE /HPF Urine Squamous Epithelial Cells RARE /HPF Urine Crystals NONE /LPF Urine Bacteria NEGATIVE /HPF Urine Casts NONE /LPF Urine Mucus NEGATIVE /LPF Urine Culture Indicated NO My Orders Orders - CASS SKINNER MD Cbc With Automated Diff (08/09/18 06:34) Comprehensive Metabolic Panel (08/09/18 06:34) Hs C Reactive Protein (08/09/18 06:34) Lipase (08/09/18 06:34) Ua Culture If Indicated (08/09/18 06:34) Saline Lock/Iv-Start (08/09/18 06:34) Ns Iv 1000 Ml (Sodium Chloride 0.9%) (08/09/18 06:34) Fentanyl Injection (Sublimaze Injection (08/09/18 06:45) Fentanyl Injection (Sublimaze Injection (08/09/18 07:30) Ct Abd/Pelvis Wo(Kidney Stone) (08/09/18 07:29) Lidocaine 2% Viscous 15 Ml (Xylocaine Vi (08/09/18 09:30) Antacid Suspension (Mylanta Suspension (08/09/18 09:30) Medications Given in ED Current Medications Medications Dose Ordered Sig/Herminio Route Start Time Stop Time Status Last Admin Dose Admin Al Hydrox/Mg Hydrox/Simethicone 30 ml ONCE ONCE PO 08/09/18 09:30 08/09/18 09:31 DC 08/09/18 09:31 30 ML Fentanyl Citrate 50 mcg ONCE ONCE IVP 08/09/18 06:45 08/09/18 06:46 DC 08/09/18 06:57 50 MCG Fentanyl Citrate 50 mcg ONCE ONCE IVP 08/09/18 07:30 08/09/18 07:31 DC 08/09/18 07:39 50 MCG Lidocaine HCl 15 ml ONCE ONCE PO 08/09/18 09:30 08/09/18 09:31 DC 08/09/18 09:31 15 ML Sodium Chloride 1,000 ml @ 0 mls/hr Q0M ONCE IV 08/09/18 06:34 08/09/18 06:37 DC 08/09/18 06:57 1,000 MLS/HR Vital Signs/I&O 08/09/18 08/09/18 06:45 09:44 Temp 98.4 Pulse 80 85 Resp 20 17 B/P (MAP) 174/110 (131) 181/102 (128) Pulse Ox 96 95 O2 Delivery Room Air Blood Pressure Mean: 131 Progress Progress Note #1: Time: 06:58 Progress Note Patient was seen and examined. Labs, urinalysis, IV fluids, and fentanyl have been ordered. No fever, tachycardia, or hypoxia are present. Progress Note #2: Time: 07:36 Progress Note Patient states his pain has improved from 7/10 down to 5/10. He is requesting something more for pain. An additional fentanyl 50 g dose was ordered. Labs were not very revealing in regard to determining pathology. I have discussed risk and benefit of CT scan with the patient. We elected to proceed with CT scan to better evaluate the source of his pain. Progress Note #3: Time: 09:[address] scan was reviewed. The only pathology identified on the CT that seems likely to be causing his pain is a left lower lobe infiltrate. Patient may have an early pneumonia developing that is causing his pain. Microscopic hematuria was also noted and has been seen on prior urinalysis. Patient was advised to follow-up with his primary care provider regarding this finding. Diagnostic Imaging Diagonstic Imaging: CT Plain Films/CT/US/NM/MRI: abdomen, pelvis Comments CT abdomen and pelvis viewed by me and reports reviewed. See report below: NAME: DULCE [facility]IA [facility] REC#: [id number] PT STATUS: REG ER : 1965 PHYSICIAN: CASS SKINNER MD ADMIT DATE: 08/09/18/ER Draft Date of Exam:08/09/18 CT ABD/PELVIS WO(KIDNEY STONE) PROCEDURE: CT urinary tract, rule out kidney stone. TECHNIQUE: Multiple contiguous axial images were obtained through the abdomen and pelvis without the use of intravenous contrast. INDICATION: Abdominal pain, shortness of breath COMPARISON: 09/24/2015 The exam failed to show any sign of an acute abnormality. In the interval since the prior study a small 5 MM linear calcific density has developed within the right renal pelvis. This may well be vascular in nature. There is no evidence for a nonobstructive calculus within the renal parenchyma. There is no sign of obstruction of the right collecting system. There is no evidence for nephrolithiasis or urolithiasis on the left either. The prior exam did note a 4.6 CM exophytic cyst along the medial aspect of the superior pole of the left kidney. That cyst has increased in size and now measures 6.7 CM. This cyst still has a generally benign appearance. Also, in the interval since the prior study another smaller 2.7 CM cyst has developed. The left kidney is otherwise unremarkable. The liver does not appear to be enlarged. There is no focal mass involving the liver and the biliary tree is not abnormally dilated. The spleen, pancreas, adrenals, gallbladder, aorta and inferior vena cava are unremarkable for an acute abnormality. The stomach is not well-distended and consequently difficult to assess. There does appear to be a small The images through the pelvis show that the urinary bladder is grossly unremarkable as is the prostate gland. There may be a few diverticula in the sigmoid and descending colon, there is no sign of acute diverticulitis. There is no pelvic mass or free fluid collection noted. The appendix was visualized and is not abnormally thickened. The images through the lung bases do show that the heart is enlarged and there are dense coronary calcifications in the LAD. There is also bibasilar atelectasis/infiltrate greater involvement on the left. A small left pleural effusion is also seen. The bone windows show no sign of a fracture or of a destructive lesion. IMPRESSION: 1. There is no acute abnormality of the abdomen or pelvis. Particularly there is no sign of nephrolithiasis or urolithiasis. 2. There is cardiomegaly, coronary artery disease and bibasilar atelectasis/infiltrate with greater involvement on the left. There is also a small left pleural effusion present. 3. The cysts associated with the left kidney seen previously has increased in size but still has a generally benign appearance. Departure Impression Primary Impression: Left lower lobe pneumonia Qualified Codes: J18.1 - Lobar pneumonia, unspecified organism Additional Impressions: Left upper quadrant pain Chronic renal failure Qualified Codes: N18.9 - Chronic kidney disease, unspecified Microscopic hematuria Disposition: 01 HOME, SELF-CARE Condition: Improved Departure-Patient Inst. Decision time for Depature: 08:50 Referrals: MARIIA SIM DO (PCP/Family) Primary Care Physician Patient Instructions: Acute Abdomen (Belly Pain), Adult (DC), Community- Acquired Pneumonia, Adult (DC) Add. Discharge Instructions: Complete your antibiotics as prescribed. Drink plenty of clear liquids. Please follow-up with your primary care provider within the next week. You had a small amount of blood in your urine which was also seen on prior urinalysis. Please discuss this with your primary care provider as further studies may be necessary. For mild pain, you may take Tylenol (acetaminophen) up to 1000 mg every 6 hours as needed. For more severe pain, take hydrocodone as prescribed. Please return to care if you have worsening of symptoms and have a low threshold for returning. All discharge instructions reviewed with patient and/or family. Voiced understanding. Scripts Doxycycline Hyclate (Doxycycline Hyclate) 100 Mg Capsule 100 MG PO BID, #20 CAP Prov: CASS SKINNER MD 08/09/18 Hydrocodone/Acetaminophen (Hydrocodone-Acetamin 5-325 mg) 1 Each Tablet 1 TAB PO Q4-6HR PRN for PAIN-MODERATE TO SEVERE MDD 10, #10 TAB Prov: CASS SKINNER MD 08/09/18 Copy Copies To 1: MARIIA SIM JOSHUA T MD Aug 09, 2018 06:58
--- NOTE | 2018-08-09 07:10 | NUR ---
PT RESTING IN ROOM, PT STATES STILL HAVING SOME CRAMPING, IV FLUIDS CONT CURRENT B/P 171/96
[2018-08-09 07:20] LABS: ALBUMIN 4.1 GM/DL (3.2-4.5); BILIRUBIN,TOTAL 0.6 MG/DL (0.1-1.0); CALCIUM 9.4 MG/DL (8.5-10.1); CREATININE SERUM 2.57 MG/DL (0.60-1.30); POTASSIUM 4.4 MMOL/L (3.6-5.0); TOTAL PROTEIN 6.8 GM/DL (6.4-8.2)
[2018-08-09 08:15] LABS: BILIRUBIN,URINE NEGATIVE (NEGATIVE); CLARITY,URINE CLEAR; COLOR,URINE YELLOW; GLUCOSE, URINE (UA) 3+ (NEGATIVE); KETONES,URINE NEGATIVE (NEGATIVE); LEUKOCYTE ESTERASE ,URINE NEGATIVE (NEGATIVE); NITRITE,URINE NEGATIVE (NEGATIVE); PH,URINE 6 (5-9); PROTEIN,URINE 3+ (NEGATIVE); UROBILINOGEN,URINE NORMAL (NORMAL)
[2018-08-09 08:21] LABS: BACTERIA,URINE NEGATIVE /HPF; SQUAMOUS EPITHELIAL CELL,UR RARE /HPF; WBC,URINE RARE /HPF
--- NOTE | 2018-08-09 08:43 | Diagnostic Imaging Report ---
PROCEDURE: CT urinary tract, rule out kidney stone. TECHNIQUE: Multiple contiguous axial images were obtained through the abdomen and pelvis without the use of intravenous contrast. INDICATION: Abdominal pain, shortness of breath COMPARISON: 09/24/2015 The exam failed to show any sign of an acute abnormality. In the interval since the prior study a small 5 MM linear calcific density has developed within the right renal pelvis. This may well be vascular in nature. There is no evidence for a nonobstructive calculus within the renal parenchyma. There is no sign of obstruction of the right collecting system. There is no evidence for nephrolithiasis or urolithiasis on the left either. The prior exam did note a 4.6 CM exophytic cyst along the medial aspect of the superior pole of the left kidney. That cyst has increased in size and now measures 6.7 CM. This cyst still has a generally benign appearance. Also, in the interval since the prior study another smaller 2.7 CM cyst has developed. The left kidney is otherwise unremarkable. The liver does not appear to be enlarged. There is no focal mass involving the liver and the biliary tree is not abnormally dilated. The spleen, pancreas, adrenals, gallbladder, aorta and inferior vena cava are unremarkable for an acute abnormality. The stomach is not well-distended and consequently difficult to assess. There does appear to be a small hilar hernia. The images through the pelvis show that the urinary bladder is grossly unremarkable as is the prostate gland. There may be a few diverticula in the sigmoid and descending colon, there is no sign of acute diverticulitis. There is no pelvic mass or free fluid collection noted. The appendix was visualized and is not abnormally thickened. The images through the lung bases do show that the heart is enlarged and there are dense coronary calcifications in the LAD. There is also bibasilar atelectasis/infiltrate greater involvement on the left. A small left pleural effusion is also seen. The bone windows show no sign of a fracture or of a destructive lesion. IMPRESSION: 1. There is no acute abnormality of the abdomen or pelvis. In particular there is no sign of nephrolithiasis or urolithiasis. 2. There is cardiomegaly, coronary artery disease and bibasilar atelectasis/infiltrate with greater involvement on the left. There is also a small left pleural effusion present. 3. The cysts associated with the left kidney seen previously has increased in size but still has a generally benign appearance. Dictated by: Dictated on workstation # [id number]
[2018-08-09] MEDS ORDERED: DOXY100C2 PO ×2 (09:02→09:53)
[2018-08-09] MEDS ORDERED: HYDR-3812 PO (09:05)
--- OUTSIDE RECORDS SUMMARY | 2018-08-09 09:22 | XMS REPORT | Clinical Summary ---
Author Author [facility] Organization [facility] Address Unknown Phone Unavailable Care Team Providers Care Dinkey Engine Firer Name Role Phone PCP Unavailable Source Comments Some departments are not documenting in the electronic medical record. If you do not see the information that you expected, contact Release of Information in the Health Information Management department at [phone] for further assistance in locating additional records.[facility] Allergies No Known Allergies Medications End Date Status Medication Sig Dispensed Refills Start Date Active metoprolol tartrate Take 25 mg by 0 (LOPRESSOR) 25 mg tablet mouth twice daily. Active metFORMIN (GLUCOPHAGE) Take 500 mg 0 500 mg tablet by mouth twice daily with meals. Active gabapentin (NEURONTIN) Take 300 mg 0 300 mg capsule by mouth every 8 hours. Active furosemide (LASIX) 20 mg Take 20 mg by 0 tablet mouth every morning. Active lisinopril (PRINIVIL; Take 10 mg by 0 ZESTRIL) 10 mg tablet mouth daily. Active canagliflozin (INVOKANA) Take 300 mg 0 300 mg tablet by mouth daily with breakfast. Active Problems Problem Noted [...] Name Status Comments Father Mother Social History Date Tobacco Use Types Packs/Day Years Used Never Smoker Alcohol Use Drinks/Week oz/Week Comments Yes 0 Standard 0.0 drinks or equivalent Sex Assigned at Date Recorded Not on file Industry Job Start Date Occupation Not on file Not on file Not on file Travel End Travel History Travel Start No recent travel history available. Last Filed Vital Signs Time Taken Vital Sign Reading 05/03/2016 1:44 PM PERFORMING ARTIST Blood Pressure 118/79 05/03/2016 1:44 PM PERFORMING ARTIST Pulse 92 - Temperature - - Respiratory Rate - - Oxygen Saturation - - Inhaled Oxygen - Concentration 05/03/2016 1:44 PM PERFORMING ARTIST Weight 111.6 kg (246 lb) 05/03/2016 1:44 PM PERFORMING ARTIST Height 180.3 cm (5' 11") 05/03/2016 1:44 PM PERFORMING ARTIST Body Mass Index 34.31 Plan of Treatment Health Maintenance Due Date Last Done Comments PHYSICAL (COMPREHENSIVE) 1973 EXAM HIV SCREENING 1981 DTAP/TDAP VACCINES (1 - 01/30/1984 Tdap) COLORECTAL CANCER 01/30/2016 SCREENING SHINGLES RECOMBINANT 01/30/2016 VACCINE (1 of 2) INFLUENZA VACCINE 01/11/2018 Results Not on filefrom Last 3 Months
[2018-08-09] MEDS ORDERED: ANTACID SUSP 30 ML UDC (MYLANTA) PO ONE (09:30)
[2018-08-09] MEDS ORDERED: LIDOCAINE 2% VISCOUS 15 ML UDC PO ONE (09:30)
[2018-08-09 09:44] VITALS: BP 181/102
== END 2018-08-09 09:48 | disposition home or self-care (01) ==
LOC: EDUNIT# 06:19 → ER 06:21
DX: J18.1 Lobar pneumonia, unspecified organism (principal); E11.22 Type 2 diabetes mellitus with diabetic chronic kidney disease; I12.0 Hypertensive chronic kidney disease with stage 5 chronic kidney disease or end stage renal disease; N18.9 Chronic kidney disease, unspecified; R10.12 Left upper quadrant pain; R31.29 Other microscopic hematuria; G47.30 Sleep apnea, unspecified; I42.9 Cardiomyopathy, unspecified; I25.10 Atherosclerotic heart disease of native coronary artery without angina pectoris; E11.51 Type 2 diabetes mellitus with diabetic peripheral angiopathy without gangrene; I73.9 Peripheral vascular disease, unspecified; E11.40 Type 2 diabetes mellitus with diabetic neuropathy, unspecified; E11.319 Type 2 diabetes mellitus with unspecified diabetic retinopathy without macular edema; F41.9 Anxiety disorder, unspecified; F32.9 Major depressive disorder, single episode, unspecified; Z82.49 Family history of ischemic heart disease and other diseases of the circulatory system; Z80.42 Family history of malignant neoplasm of prostate; Z87.19 Personal history of other diseases of the digestive system; Z87.448 Personal history of other diseases of urinary system; Z79.82 Long term (current) use of aspirin; Z79.4 Long term (current) use of insulin; Z87.01 Personal history of pneumonia (recurrent); Z86.018 Personal history of other benign neoplasm; Z95.5 Presence of coronary angioplasty implant and graft
CPT/HCPCS: 36415; 74176; 80053; 81000; 83690; 85025; 86141

== ENCOUNTER → 2018-09-12 | Outpatient (CLI) | payer BC ==
[~2018-09-12] MED LIST changes: +DOXY100C2 PO; +HYDR-3812 PO
--- NOTE | 2018-09-12 19:26 | Diagnostic Imaging Report ---
INDICATION: Shortness of breath. TECHNIQUE: Two-view chest, 3:46 p.m. CORRELATION STUDY: 04/06/2018. FINDINGS: Heart size is enlarged. Vasculature is overall stable. Mediastinum is prominent, likely stable, given differences in technique. Right IJ [id number]-[id number] catheter has the tip over the right atrium. Linear parenchymal disease throughout the lung kunz, likely atelectasis. No definitive consolidating infiltrate. Mildly advanced degenerative changes in the thoracic spine. IMPRESSION: 1. Cardiac enlargement with borderline vasculature. Bibasilar areas of atelectasis. Dictated by: Dictated on workstation # [id number]
== END ==
LOC: RAD 15:30
PROVIDERS: ATTEND Family Medicine
DX: J98.11 Atelectasis (principal); I51.7 Cardiomegaly; Z95.828 Presence of other vascular implants and grafts
CPT/HCPCS: 71046

== ENCOUNTER → 2018-09-13 | Outpatient (CLI) | payer BC ==
[2018-09-13 07:40] LABS: ALBUMIN 3.8 GM/DL (3.2-4.5); BILIRUBIN,TOTAL 0.3 MG/DL (0.1-1.0); CALCIUM 9.3 MG/DL (8.5-10.1); CREATININE SERUM 2.63 MG/DL (0.60-1.30); POTASSIUM 3.9 MMOL/L (3.6-5.0); TOTAL PROTEIN 6.1 GM/DL (6.4-8.2)
== END ==
LOC: LAB 06:43
PROVIDERS: ATTEND Family Medicine
DX: E11.9 Type 2 diabetes mellitus without complications (principal); N28.9 Disorder of kidney and ureter, unspecified; R06.02 Shortness of breath
CPT/HCPCS: 36415; 80053; 80061; 83036; 83880

== ENCOUNTER → 2018-10-09 | Outpatient (CLI) | payer BC ==
[~2018-10-09] MED LIST changes: -FEXO-192 PO; +FEXO-222 PO; +IRON 65 MG PO; +REGADENOSON 0.4 MG/5 ML SYR (LEXISCAN) IV ONE
[2018-10-09] MEDS: CATHETER FLUSH 10 ML SYR IV PRN ×2 (08:16→09:38)
[2018-10-09 09:34] VITALS: BP 177/96
--- NOTE | 2018-10-09 15:06 | STRESS TEST ---
DATE OF SERVICE: 10/09/2018 LEXISCAN MYOVIEW STRESS TEST REPORT REFERRING PHYSICIAN: Yang Younger DO. Baseline heart rate is 71. Baseline blood pressure is 177/96. Baseline EKG is sinus rhythm with right bundle branch block. In summary, the patient was injected with 10.96 mCi of technetium-99 Myoview and the resting images were obtained. Then, the patient received 0.4 mg of Lexiscan followed by 28.8 mCi of technetium-99 Myoview. Throughout the test, there were no EKG changes. The resting and stress images were reviewed and compared in the short axis, horizontal long axis, and vertical long axis views. Review of the images showed diaphragmatic attenuation with reversible ischemia involving the mid to apical inferior wall and inferolateral wall. SSS is 5, SDS 4, TID value 1.03. On the gated images, the left ventricle appeared to be dilated with diffuse left ventricular hypokinesia, calculated ejection fraction 42%. CONCLUSION: 1. The patient tolerated Lexiscan well. 2. Baseline right bundle branch block persisted throughout test. 3. Diaphragmatic attenuation with mild ischemia involving the mid to apical inferior wall and inferolateral wall. 4. Dilated left ventricle with diffuse left ventricular hypokinesia, calculated ejection fraction 42%. Job ID: [id number] DocumentID: [id number] Dictated Date: 10/09/2018 12:40:12 Machine Riveter Date: 10/09/2018 15:05:32 Dictated By: KAREN YANG MD
== END ==
LOC: CARD 07:48
PROVIDERS: ATTEND Physician Assistant
DX: R07.89 Other chest pain (principal); I10 Essential (primary) hypertension; E78.5 Hyperlipidemia, unspecified; E11.40 Type 2 diabetes mellitus with diabetic neuropathy, unspecified; D63.8 Anemia in other chronic diseases classified elsewhere
CPT/HCPCS: 78452; 93017

== ENCOUNTER 2018-10-11 06:37 | Day surgery (SDC) | payer BC ==
[~2018-10-11] VITALS: Ht 177.8 cm; Wt 130.6 kg
[2018-10-11] VITALS (12 sets, daily range): BP systolic 119–166; BP diastolic 56–92
[~2018-10-11 06:37] MED LIST changes: -IRON 65 MG PO; -REGADENOSON 0.4 MG/5 ML SYR (LEXISCAN) IV ONE
[2018-10-11] MEDS ORDERED: NS IV 1000 ML 1,000 ML ONE (06:45)
[2018-10-11] MEDS ORDERED: LIDOCAINE 1% INJ 20 ML 20 ML VIAL ONE (06:45)
[2018-10-11] MEDS ORDERED: HEParin (CATH LAB) 2,000 ML IV ONE (06:45)
[2018-10-11] MEDS ORDERED: NS IV 1000 ML 1,000 ML IV SCH ×2 (07:00→08:29)
[2018-10-11 07:21] LABS: HEMOGLOBIN 10.7 G/DL (13.3-17.7); MEAN PLATELET VOLUME 10.9 FL (7.4-10.4); RED CELL DISTRIBUTION WIDTH 12.8 % (10.0-14.5); WHITE BLOOD COUNT 7.4 10^3/uL (4.3-11.0)
[2018-10-11] MEDS ORDERED: IRON 65 MG PO (07:31)
[2018-10-11] MEDS ORDERED: METO5TAB6 PO (07:31)
[2018-10-11] MEDS ORDERED: HYDR-3923 PO (07:31)
[2018-10-11] MEDS ORDERED: FURO40TA4 PO (07:31)
--- NOTE | 2018-10-11 07:32 | Cardiac Procedure Note-CS/ASA ---
Pre-Procedure Note Pre-Op Procedure Note H&P Reviewed The H&P was reviewed, patient examined and no changes noted. Date H&P Reviewed: October 11, 2018 Time H&P Reviewed: 07:32 Conscious Sedation Pre-Proced Time 07:32 ASA Score 3 For ASA 3 and 4: Consider anesthesia and medical clearance. Also, for patients with a history of failed moderate sedation consider anesthesia. Airway Lungs Heart ASA score ASA 1: a normal healthy patient ASA 2: a patient with a mild systemic disease (mid diabetes, controlled hypertension, obesity x ASA 3: a patient with a severe systemic disease that limits activity (angina , COPD, prior Myocardial infarction) ASA 4: a patient with an incapacitating disease that is a constant threat to life (CHF, renal failure) ASA 5: a moribund patient not expected to survive 24 hrs. (ruptured aneurysm) ASA 6: a declared brain- patient whose organs are being harvested. For emergent operations, add the letter E after the classification Mallampati Classification Grade 3 Sedation Plan Analgesia, Amnesia, Plan communicated to team members, Discussed options with patient/fam, Discussed risks with patient/fam The patient is an appropriate candidate to undergo the planned procedure, sedation, and anesthesia. The patient immediately re-assessed prior to indication. KAREN YANG MD October 11, 2018 07:32
[2018-10-11 07:34] LABS: PROTHROMBIN TIME PATIENT 13.6 SEC (12.2-14.7)
[2018-10-11 07:39] LABS: ALBUMIN 3.6 GM/DL (3.2-4.5); BILIRUBIN,TOTAL 0.4 MG/DL (0.1-1.0); CALCIUM 8.7 MG/DL (8.5-10.1); CREATININE SERUM 2.17 MG/DL (0.60-1.30); POTASSIUM 4.2 MMOL/L (3.6-5.0); TOTAL PROTEIN 5.9 GM/DL (6.4-8.2)
[2018-10-11] MEDS ORDERED: fentaNYL INJECTION 100 MCG/2 ML AMP ONE (07:53)
[2018-10-11] MEDS ORDERED: MIDAZOLAM 2 MG/2 ML (VERSED) VIAL ONE (07:54)
--- NOTE | 2018-10-11 07:55 | Diagnostic Imaging Report ---
INDICATION: Coronary artery disease. Compared 09/12/2018 FINDINGS: Right IJ catheter at the SVC, heart size within normal limits, no vascular congestion. No edema, pneumonia, effusion or pneumothorax. IMPRESSION: Stable chest Dictated by: Dictated on workstation # [id number]
[2018-10-11] MEDS ORDERED: meTOprolol 5 MG/5 ML (LOPRESSOR) VIAL ONE (08:11)
[2018-10-11] MEDS ORDERED: HEParin 1000 UNIT/ML (10ML VIAL) FOR BOLUS ONE (08:14)
[2018-10-11] MEDS ORDERED: NITRO DRIP 25000 MCG/D5W 0 ML IV ONE (08:14)
[2018-10-11] MEDS ORDERED: PATIENT MAY USE OWN MEDS, ALL PO SCH (08:30)
--- NOTE | 2018-10-11 08:36 | Cardiac Cath Report ---
Cardiac Cath Report Physician (s)/Medical Insurance Biller (s) Physician KAREN YANG MD Pre-Procedure Diagnosis Pre-Procedure Diagnosis: Coronary artery disease Post-Procedure Note Procedure Start Date: October 11, 2018 Name of Procedure: left heart catheterization Findings/Procedure Note PROCEDURE NOTE: 53 years old gentleman with history of coronary artery disease had a stent to the LAD in June 2017, underwent stress test which was abnormal. He was scheduled for cardiac catheterization possible PTCA. After explaining the procedure to the patient, all pros and cons were explained , all questions were answered. The patient signed the consent and then he was placed on the cardiac catheterization laboratory. Groin was prepped SL fashion local anesthesia was used. Sheath placed in the right femoral artery. Yoel right and left catheter were used to access the coronary system. Pigtail was used to access the left ventricular cavity. Left ventriculogram was not done, pressure was measured Patient was given 7000 units of heparin, there was an area in the LAD suggestive of severe stenosis 70-80 percent, I proceeded with intervention using FL guide and BMW wire advanced to the mid LAD, the area that has haziness and abnormality appeared to be straightened out with the wire and appear to be significantly better. There is no significant obstructive disease with mild to moderate at most after Lasix mental the wire. I decided to abort the intervention and treat medically At the end of the procedure the sheath was removed. Closure device was used FINDINGS: Hemodynamics LV Aorta ANATOMY: Left Main is free of obstructive disease Left Anterior Descending is tortuous artery with an area of haziness proximally , after placement of a BMW wire through the LAD the area appeared to be better, the mid LAD stent appeared to be patent, distally there was also an area of tortuosity that was straightened out by the wire and appear to be significantly better. Mild disease distally Left Circumflex is moderate in size, first obtuse marginal branch has 60-70 percent stenosis, did not change compared to the previous study Right Coronory Artery is dominant artery with 50 percent stenosis distally nonobstructive disease CONCLUSION: 1. Patent stent in the mid LAD with tortuous LAD, mild to moderate disease at the proximal and distal portion, after placement of a BMW wire in the LAD it straightened out and the LAD appeared to have mild to moderate disease nonobstructive disease. 2. 60-70 percent proximal first obtuse marginal branch stenosis, did not change compared to the previous study of June 2017. 3. 50 percent stenosis at the distal right coronary artery. 4. Elevated left ventricular end-diastolic pressure DISCUSSION AND RECOMMENDATION: I will continue maximizing medical therapy, no intervention is warranted at this point Anesthesia Type: Conscious Sedation Estimated blood loss (mL): 25 ml Contrast Amount: 48 ml Total Radiation Dose: 884 mGy Post-Procedure Diagnosis Post-operative diagnosis: Coronary artery disease Congestive heart failure, chronic compensated left ventricular systolic and diastolic dysfunction, ischemic and nonischemic cardiomyopathy Malignant hypertension Hyperlipidemia KAREN YANG MD October 11, 2018 08:36
[2018-10-11] MEDS ORDERED: GABAPENTIN 300 MG (NEURONTIN) CAP PO SCH ×2 (09:00→13:00)
[2018-10-11] MEDS ORDERED: ASPIRIN E.C. 81 MG (ECOTRIN) TAB PO SCH (09:00)
[2018-10-11] MEDS ORDERED: FUROSEMIDE 40 MG (LASIX) TAB PO SCH ×2 (09:00→21:00)
[2018-10-11] MEDS ORDERED: meTOprolol TARTRATE 50 MG (LOPRESSOR) TAB PO SCH ×2 (09:00→21:00)
[2018-10-11] MEDS ORDERED: hydrALAZINE (APRESOLINE) 25 MG TAB PO SCH ×2 (09:00→11:45)
[2018-10-11] MEDS ORDERED: oxyCODONE/APAP 5/325MG (PERCOCET 5) TABLET PO ONE (10:45)
[2018-10-11] MEDS ORDERED: oxyCODONE/APAP 5/325MG (PERCOCET 5) TABLET ONE (11:01)
[2018-10-11] MEDS ORDERED: LORATADINE (CLARITIN) 10 MG TAB PO SCH (17:00)
[2018-10-11] MEDS ORDERED: ROSUVASTATIN 5 MG (CRESTOR) TABLET PO SCH (21:00)
[2018-10-12] MEDS ORDERED: GLIMEPIRIDE 4 MG (AMARYL) TAB PO SCH (06:30)
[2018-10-12] MEDS ORDERED: ASPIRIN E.C. 81 MG (ECOTRIN) TAB PO SCH (09:00)
== END 2018-10-11 15:42 | disposition home or self-care (01) ==
LOC: CATH 06:37 → ICU 08:46 → CATH 15:42
PROVIDERS: ATTEND Internal Medicine Cardiovascular Disease
DX: I25.10 Atherosclerotic heart disease of native coronary artery without angina pectoris (principal); I13.0 Hypertensive heart and chronic kidney disease with heart failure and stage 1 through stage 4 chronic kidney disease, or unspecified chronic kidney disease; I50.42 Chronic combined systolic (congestive) and diastolic (congestive) heart failure; N18.3 Chronic kidney disease, stage 3 (moderate); I25.5 Ischemic cardiomyopathy; I42.9 Cardiomyopathy, unspecified; E78.5 Hyperlipidemia, unspecified; E11.40 Type 2 diabetes mellitus with diabetic neuropathy, unspecified; E11.22 Type 2 diabetes mellitus with diabetic chronic kidney disease; D63.8 Anemia in other chronic diseases classified elsewhere; I65.23 Occlusion and stenosis of bilateral carotid arteries; I34.0 Nonrheumatic mitral (valve) insufficiency; N52.9 Male erectile dysfunction, unspecified; Z95.5 Presence of coronary angioplasty implant and graft; Z79.84 Long term (current) use of oral hypoglycemic drugs; Z79.899 Other long term (current) drug therapy; Z79.82 Long term (current) use of aspirin; Z82.49 Family history of ischemic heart disease and other diseases of the circulatory system
CPT/HCPCS: 36415; 71045; 80053; 80061; 85027; 85610; 85730; 87081; 93225; 93226; 93458

== ENCOUNTER → 2018-12-06 | Outpatient (CLI) | payer BC ==
[~2018-12-06] MED LIST changes: +IRON 65 MG PO
[2018-12-06 08:00] LABS: BILIRUBIN,URINE NEGATIVE (NEGATIVE); CLARITY,URINE CLEAR; COLOR,URINE YELLOW; GLUCOSE, URINE (UA) 3+ (NEGATIVE); KETONES,URINE NEGATIVE (NEGATIVE); LEUKOCYTE ESTERASE ,URINE NEGATIVE (NEGATIVE); NITRITE,URINE NEGATIVE (NEGATIVE); PH,URINE 6 (5-9); PROTEIN,URINE 3+ (NEGATIVE); UROBILINOGEN,URINE NORMAL (NORMAL)
[2018-12-06 08:10] LABS: ALBUMIN 3.7 GM/DL (3.2-4.5); BILIRUBIN,TOTAL 0.4 MG/DL (0.1-1.0); CALCIUM 9.1 MG/DL (8.5-10.1); CREATININE SERUM 2.33 MG/DL (0.60-1.30); PHOSPHORUS 4.8 MG/DL (2.3-4.7); POTASSIUM 4.5 MMOL/L (3.6-5.0); TOTAL PROTEIN 6.1 GM/DL (6.4-8.2)
[2018-12-06 08:20] LABS: BACTERIA,URINE NEGATIVE /HPF; SQUAMOUS EPITHELIAL CELL,UR RARE /HPF; WBC,URINE 0-2 /HPF
== END ==
LOC: LAB 07:06
PROVIDERS: ATTEND Nurse Practitioner
DX: I12.9 Hypertensive chronic kidney disease with stage 1 through stage 4 chronic kidney disease, or unspecified chronic kidney disease (principal); N18.3 Chronic kidney disease, stage 3 (moderate); D63.1 Anemia in chronic kidney disease; E11.21 Type 2 diabetes mellitus with diabetic nephropathy; I25.10 Atherosclerotic heart disease of native coronary artery without angina pectoris; R60.9 Edema, unspecified; R31.9 Hematuria, unspecified; E78.00 Pure hypercholesterolemia, unspecified; R80.9 Proteinuria, unspecified
CPT/HCPCS: 36415; 80053; 80061; 80069; 81000; 82570; 84156; 86021

== ENCOUNTER → 2019-03-21 | Outpatient (CLI) | payer BC ==
[~2019-03-21] MED LIST changes: -ROSU5TAB12 PO; +ROSU5TAB13 PO
[2019-03-21 11:31] LABS: HEMOGLOBIN 11.2 G/DL (13.3-17.7); MEAN PLATELET VOLUME 10.1 FL (7.4-10.4); WHITE BLOOD COUNT 6.1 10^3/uL (4.3-11.0)
[2019-03-21 11:58] LABS: BILIRUBIN,URINE NEGATIVE (NEGATIVE); CLARITY,URINE CLEAR; COLOR,URINE YELLOW; GLUCOSE, URINE (UA) 4+ (NEGATIVE); KETONES,URINE NEGATIVE (NEGATIVE); LEUKOCYTE ESTERASE ,URINE NEGATIVE (NEGATIVE); NITRITE,URINE NEGATIVE (NEGATIVE); PH,URINE 6 (5-9); PROTEIN,URINE 3+ (NEGATIVE); UROBILINOGEN,URINE NORMAL (NORMAL)
[2019-03-21 12:01] LABS: ALBUMIN 3.7 GM/DL (3.2-4.5); BILIRUBIN,TOTAL 0.3 MG/DL (0.1-1.0); CALCIUM 8.6 MG/DL (8.5-10.1); CREATININE SERUM 2.11 MG/DL (0.60-1.30); POTASSIUM 4.6 MMOL/L (3.6-5.0); TOTAL PROTEIN 6.2 GM/DL (6.4-8.2)
[2019-03-21 12:32] LABS: BACTERIA,URINE TRACE /HPF; SQUAMOUS EPITHELIAL CELL,UR 0-2 /HPF; WBC,URINE 0-2 /HPF
== END ==
LOC: LAB 10:30
PROVIDERS: ATTEND Family Medicine
DX: E11.9 Type 2 diabetes mellitus without complications (principal); N28.9 Disorder of kidney and ureter, unspecified
CPT/HCPCS: 36415; 80053; 80061; 81000; 83036; 85027; 87088

== ENCOUNTER → 2019-05-28 | Outpatient (CLI) | payer BC ==
[2019-05-28 06:31] LABS: BASOPHILS % (AUTO) 0 % (0-10); EOSINOPHILS # (AUTO) 0.5 10^3/uL (0.0-0.3); EOSINOPHILS % (AUTO) 6 % (0-10); HEMATOCRIT 35 % (40-54); HEMOGLOBIN 11.3 G/DL (13.3-17.7); LYMPHOCYTES # (AUTO) 1.2 X 10^3 (1.0-4.0); LYMPHOCYTES % (AUTO) 15 % (12-44); MEAN CORPUSCULAR HEMOGLOBIN 28 PG (25-34); MEAN CORPUSCULAR HGB CONC 33 G/DL (32-36); MEAN CORPUSCULAR VOLUME 85 FL (80-99); MEAN PLATELET VOLUME 10.8 FL (7.4-10.4); MONOCYTES # (AUTO) 0.6 X 10^3 (0.0-1.0); MONOCYTES % (AUTO) 7 % (0-12); NEUTROPHILS # (AUTO) 5.7 X 10^3 (1.8-7.8); NEUTROPHILS % (AUTO) 71 % (42-75); PLATELET COUNT 186 10^3/uL (130-400); RED CELL DISTRIBUTION WIDTH 12.9 % (10.0-14.5)
[2019-05-28 06:56] LABS: ALBUMIN 3.8 GM/DL (3.2-4.5); BILIRUBIN,TOTAL 0.4 MG/DL (0.1-1.0); CALCIUM 9.3 MG/DL (8.5-10.1); CREATININE SERUM 2.98 MG/DL (0.60-1.30); POTASSIUM 4.6 MMOL/L (3.6-5.0); TOTAL PROTEIN 6.2 GM/DL (6.4-8.2)
== END ==
LOC: LAB 06:06
PROVIDERS: ATTEND Family Medicine
DX: E11.9 Type 2 diabetes mellitus without complications (principal); N28.9 Disorder of kidney and ureter, unspecified; E78.5 Hyperlipidemia, unspecified; I63.9 Cerebral infarction, unspecified
CPT/HCPCS: 36415; 80053; 80061; 83036; 85025

== ENCOUNTER → 2019-06-12 | Outpatient (CLI) | payer BC ==
[2019-06-12 07:02] LABS: CALCIUM 8.4 MG/DL (8.5-10.1); CREATININE SERUM 2.52 MG/DL (0.60-1.30); POTASSIUM 4.6 MMOL/L (3.6-5.0)
== END ==
LOC: LAB 06:23
PROVIDERS: ATTEND Family Medicine
DX: E11.9 Type 2 diabetes mellitus without complications (principal); N28.9 Disorder of kidney and ureter, unspecified
CPT/HCPCS: 36415; 80048

== ENCOUNTER → 2019-11-06 | Outpatient (CLI) | payer BC ==
[~2019-11-06] MED LIST changes: +ACHD5005 PO; -GLIM2TAB PO; +GLIM2TAB4 PO; -GLIM4TAB PO; +GLIM4TAB5 PO; -HYDR-3812 PO; -SENN-141 PO; +SENN-234 PO; -TRAM50TA2 PO; +TRM50T PO
[2019-11-06 12:38] LABS: BILIRUBIN,URINE NEGATIVE (NEGATIVE); CLARITY,URINE CLEAR; COLOR,URINE YELLOW; GLUCOSE, URINE (UA) 2+ (NEGATIVE); KETONES,URINE NEGATIVE (NEGATIVE); LEUKOCYTE ESTERASE ,URINE NEGATIVE (NEGATIVE); NITRITE,URINE NEGATIVE (NEGATIVE); PROTEIN,URINE 2+ (NEGATIVE)
[2019-11-06 12:42] LABS: ALBUMIN 3.7 GM/DL (3.2-4.5); POTASSIUM 5.1 MMOL/L (3.6-5.0)
[2019-11-06 12:43] LABS: CALCIUM 8.4 MG/DL (8.5-10.1)
[2019-11-06 12:45] LABS: TOTAL PROTEIN 6.4 GM/DL (6.4-8.2)
[2019-11-06 12:46] LABS: BILIRUBIN,TOTAL 0.3 MG/DL (0.1-1.0)
[2019-11-06 12:48] LABS: CREATININE SERUM 2.29 MG/DL (0.60-1.30)
[2019-11-06 12:49] LABS: BACTERIA,URINE NEGATIVE /HPF; RBC,URINE 0-2 /HPF; SQUAMOUS EPITHELIAL CELL,UR 0-2 /HPF; URINE OTHER FEW SPERM /HPF; WBC,URINE 0-2 /HPF
== END ==
LOC: LAB 11:35
PROVIDERS: ATTEND Family Medicine
DX: E11.9 Type 2 diabetes mellitus without complications (principal); N28.9 Disorder of kidney and ureter, unspecified
CPT/HCPCS: 36415; 80053; 80061; 81000; 83036

== ENCOUNTER 2020-02-10 21:12 | Inpatient (IN) | payer SELFPAY ==
[~2020-02-10] VITALS: Ht 180 cm; Wt 138.8 kg
[2020-02-10] MEDS ORDERED: IBUPROFEN 600 MG (MOTRIN) TAB PO ONE (21:36)
[2020-02-10] MEDS ORDERED: NS IV 1000 ML 1,000 ML ONE (21:36)
[2020-02-10] MEDS ORDERED: NS IV 1000 ML 1,000 ML IV SCH (21:45)
[2020-02-10] MEDS ORDERED: IBUPROFEN TABLET 200 MG TAB PO ONE (21:45)
[2020-02-10 21:48] LABS: BASOPHILS % (AUTO) 0 % (0-10); EOSINOPHILS # (AUTO) 0.4 10^3/uL (0.0-0.3); EOSINOPHILS % (AUTO) 4 % (0-10); HEMATOCRIT 33 % (40-54); HEMOGLOBIN 10.5 G/DL (13.3-17.7); LYMPHOCYTES # (AUTO) 0.7 X 10^3 (1.0-4.0); LYMPHOCYTES % (AUTO) 6 % (12-44); MEAN CORPUSCULAR HEMOGLOBIN 27 PG (25-34); MEAN CORPUSCULAR HGB CONC 32 G/DL (32-36); MEAN CORPUSCULAR VOLUME 85 FL (80-99); MEAN PLATELET VOLUME 10.9 FL (7.4-10.4); MONOCYTES # (AUTO) 0.7 X 10^3 (0.0-1.0); MONOCYTES % (AUTO) 7 % (0-12); NEUTROPHILS # (AUTO) 9.3 X 10^3 (1.8-7.8); NEUTROPHILS % (AUTO) 83 % (42-75); PLATELET COUNT 182 10^3/uL (130-400); RED CELL DISTRIBUTION WIDTH 13.4 % (10.0-14.5); WHITE BLOOD COUNT 11.1 10^3/uL (4.3-11.0)
--- NOTE | 2020-02-10 21:48 | ED Cough/URI ---
General Chief Complaint: Respiratory Problems Stated Complaint: SOB, LOSS OF TASTE, CHILLS,DIZZINESS Source: patient Exam Limitations: no limitations History of Present Illness Date Seen by Provider: Feb 10, 2020 Time Seen by Provider: 21:43 Initial Comments To ER with reports of shortness of breath chills dizziness. This began yester day. Denies any known ill contacts, but states that he did start a new job in [email or web address] at a [employer] this past week and he is around a bunch of young people. He wears a CPAP At night for obstructive sleep apnea but does not wear oxygen. Upon arrival to ER his oxygen saturation is 88-89% on room air. Primary care is Dr. Dr. Sim. Vp Of Customer Experience Strategy is Dr. Perez. He denies any chest pain. Medical history includes coronary artery disease, obstructive sleep apnea, diabetes, hypertension, congestive heart failure. Timing/Duration: yesterday Severity/Quality: moderate Associated Symptoms: fever/chills, shortness of breath Allergies and Home Medications Allergies Coded Allergies: atorvastatin (Verified Allergy, Unknown, 10/11/18) tazobactam (Verified Allergy, Unknown, RASH, 02/10/18) Home Medications Aspirin 81 Mg Tablet.dr, 81 MG PO DAILY, (Reported) Fexofenadine HCl 180 Mg Tablet, 180 MG PO 1700, (Reported) Furosemide 40 Mg Tablet, 80 MG PO BID, (Reported) Gabapentin 300 Mg Capsule, 600 MG PO TID, (Reported) TAKES 2 (300 MG) CAPSULES Glimepiride 4 Mg Tablet, 4 MG PO DAILY, (Reported) Hydralazine HCl 25 Mg Tablet, 50 MG PO Q8H, (Reported) Metolazone 5 Mg Tablet, 5 MG PO UD, (Reported) PT STATES TAKES NEEDED Metoprolol Tartrate 50 Mg Tablet, 50 MG PO BID, (Reported) Rosuvastatin Calcium 5 Mg Tablet, 5 MG PO HS, (Reported) [Iron 65 Mg] , 65 MG PO BID, (Reported) Patient Home Medication List Home Medication List Reviewed: Yes Review of Systems Review of Systems Constitutional: see HPI, chills, fever, malaise, weakness EENTM: see HPI Respiratory: see HPI, dyspnea on exertion, short of breath Cardiovascular: no symptoms reported Genitourinary: no symptoms reported Musculoskeletal: no symptoms reported Skin: no symptoms reported Psychiatric/Neurological: No Symptoms Reported Hematologic/Lymphatic: No Symptoms Reported Immunological/Allergic: no symptoms reported Past Lwypzoo-Rtoikj-Lalqme Hx Patient Social History 2nd Hand Smoke Exposure: No Recent Foreign Travel: No Contact w/Someone Who Travel: No Recent Hopitalizations: Yes (PNEUMONIA, SPINAL SURGERY) Immunizations Up To Date Tetanus Booster (TDap): Unknown Date of Pneumonia Vaccine: Jun 16, 2015 Date of Influenza Vaccine: Mar 20, 2018 Seasonal Allergies Seasonal Allergies: No Past Medical History Surgeries: Yes (NASAL POLYPS REMOVED CHILD, heart cath x2,cystoscopy, ) Cardiac, Coronary Stent, Nose Respiratory: Yes Pneumonia, Sleep Apnea Currently Using CPAP: Yes Currently Using BIPAP: No Cardiac: Yes (PAD, stent placed in 06/30) Cardiomyopathy, Coronary Artery Disease, Hypertension, Irregular Heartbeat, Peripheral Vascular Neurological: Yes (NEUROPATHY IN LEGS/ FEET) Neuropathy Reproductive Disorders: Yes (E.D.) Sexually Transmitted Disease: No HIV/AIDS: No Genitourinary: Yes Renal Failure Gastrointestinal: Yes Chronic Diarrhea Musculoskeletal: Yes Arthritis, Chronic Back Pain Endocrine: Yes Diabetes, Non-Insulin dep HEENT: No (DIABETIC RETINOPATHY) Cancer: No Psychosocial: Yes Anxiety, Depression Integumentary: No Blood Disorders: No Adverse Reaction/Blood Tranf: No Family Medical History Arthritis G8 BROTHER (knee replacement) Cardiovascular disease 19 FATHER (chf) Deafness or hearing loss 19 MOTHER (vertigo) Diabetes mellitus 19 MOTHER Prostate cancer 19 FATHER No Pertinent Family Hx, Hypertension Physical Exam Vital Signs - First Documented 02/10/20 21:30 Temp 38.3 Pulse 81 Resp 18 B/P (MAP) 145/70 (95) Pulse Ox 94 O2 Delivery Nasal Cannula O2 Flow Rate 2.00 Capillary Refill : Height: 5'10.00" Weight: 288lbs. 0.0oz. 130.785665vg; 41.3 BMI Method:Stated General Appearance: WD/WN, no apparent distress, other (alert and oriented does appear ill but nontoxic. Temperature 101 on arrival. Oxygen saturation 88-89% on room air. Obese. Speaks in full sentences without respiratory distress.) Eyes: Bilateral Eye Normal Inspection, Bilateral Eye PERRL HEENT: PERRL/EOMI, normal ENT inspection Neck: non-tender, full range of motion Respiratory: normal breath sounds, no respiratory distress, no accessory muscle use Cardiovascular: regular rate, rhythm, no murmur Gastrointestinal: normal bowel sounds, non tender, soft Extremities: other (trace pitting edema bilateral lower extremities) Neurologic/Psychiatric: alert, normal mood/affect, oriented x 3 Skin: normal color, warm/dry Focused Exam Lactate Level 02/10/20 20:35: Lactic Acid Level 0.63 Lactic Acid Level Laboratory Tests Test 02/10/20 20:35 Lactic Acid Level 0.63 MMOL/L (0.50-2.00) Procedures/Interventions Date of ETT Placement: Feb 03, 2018 Time of ETT Placement: 0503 Progress/Results/Core Measures Suspected Sepsis SIRS Temperature: Pulse: Respiratory Rate: Laboratory Tests 02/10/20 20:35: White Blood Count 11.1H Blood Pressure / Mean: 02/10/20 20:35: Lactic Acid Level 0.63 Laboratory Tests 02/10/20 20:35: INR Comment 1.1, Platelet Count 182, Total Bilirubin 0.6 Results/Orders Lab Results Laboratory Tests Test 02/10/20 20:35 02/10/20 21:44 Range/Units White Blood Count 11.1 H 4.3-11.0 10^3/uL Red Blood Count 3.87 L 4.35-5.85 10^6/uL Hemoglobin 10.5 L 13.3-17.7 G/DL Hematocrit 33 L 40-54 % Mean Corpuscular Volume 85 80-99 FL Mean Corpuscular Hemoglobin 27 25-34 PG Mean Corpuscular Hemoglobin Concent 32 32-36 G/DL Red Cell Distribution Width 13.4 10.0-14.5 % Platelet Count 182 130-400 10^3/uL Mean Platelet Volume 10.9 H 7.4-10.4 FL Neutrophils (%) (Auto) 83 H 42-75 % Lymphocytes (%) (Auto) 6 L 12-44 % Monocytes (%) (Auto) 7 0-12 % Eosinophils (%) (Auto) 4 0-10 % Basophils (%) (Auto) 0 0-10 % Neutrophils # (Auto) 9.3 H 1.8-7.8 X 10^3 Lymphocytes # (Auto) 0.7 L 1.0-4.0 X 10^3 Monocytes # (Auto) 0.7 0.0-1.0 X 10^3 Eosinophils # (Auto) 0.4 H 0.0-0.3 10^3/uL Basophils # (Auto) 0.0 0.0-0.1 10^3/uL Prothrombin Time 14.2 12.2-14.7 SEC INR Comment 1.1 0.8-1.4 Activated Partial Thromboplast Time 42 H 24-35 SEC Sodium Level 137 135-145 MMOL/L Potassium Level 4.5 3.6-5.0 MMOL/L Chloride Level 107 98-107 MMOL/L Carbon Dioxide Level 18 L 21-32 MMOL/L Anion Gap 12 5-14 MMOL/L Blood Urea Nitrogen 66 H 7-18 MG/DL Estimat Glomerular Filtration Rate 26 BUN/Creatinine Ratio 25 Glucose Level 282 H 70-105 MG/DL Lactic Acid Level 0.63 0.50-2.00 MMOL/L Calcium Level 7.9 L 8.5-10.1 MG/DL Corrected Calcium 8.1 L 8.5-10.1 MG/DL Total Bilirubin 0.6 0.1-1.0 MG/DL Aspartate Amino Transf (AST/SGOT) 13 5-34 U/L Alanine Aminotransferase (ALT/SGPT) 16 0-55 U/L Alkaline Phosphatase 84 40-136 U/L C-Reactive Protein High Sensitivity 4.03 H 0.00-0.50 MG/DL Total Protein 6.1 L 6.4-8.2 GM/DL Albumin 3.7 3.2-4.5 GM/DL My Orders Orders - HERNAN MOFFETT APRN Cbc With Automated Diff (02/10/20 21:27) Ekg Tracing (02/10/20 21:27) Chest 1 View, Ap/Pa Only (02/10/20 21:27) Ed Iv/Invasive Line Start (02/10/20 21:27) Ua Culture If Indicated (02/10/20 21:27) Hs C Reactive Protein (02/10/20 21:27) Covid 19 Inhouse Test (02/10/20 21:27) Coronavirus Sars-Cov-2 So 2018 (02/10/20 21:27) Comprehensive Metabolic Panel (02/10/20 21:27) Lactic Acid Analyzer (02/10/20 21:29) Protime With Inr (02/10/20 21:29) Partial Thromboplastin Time (02/10/20 21:29) Ibuprofen Tablet (Motrin Tablet) (02/10/20 21:45) Ns Iv 1000 Ml (Sodium Chloride 0.9%) (02/10/20 21:45) Ns Iv 1000 Ml (Sodium Chloride 0.9%) (02/10/20 21:36) Ibuprofen Tablet (Motrin Tablet) (02/10/20 21:36) Blood Culture (02/10/20 21:42) Procalcitonin (Pct) (02/10/20 20:35) Medications Given in ED Current Medications Medications Dose Ordered Sig/Herminio Route Start Time Stop Time Status Last Admin Dose Admin Ibuprofen 600 mg STK-MED ONCE PO 02/10/20 21:36 02/10/20 21:40 DC 02/10/20 21:41 600 MG Vital Signs/I&O 02/10/20 21:30 Temp 38.3 Pulse 81 Resp 18 B/P (MAP) 145/70 (95) Pulse Ox 94 O2 Delivery Nasal Cannula O2 Flow Rate 2.00 Capillary Refill : Departure Impression Primary Impression: Hypoxia Additional Impression: Suspected 2019 novel coronavirus infection Disposition: ADMITTED INPATIENT Condition: Stable Admissions Decision to Admit Reason: Admit from ER (General) Decision to Admit/Date: Feb 10, 2020 Time/Decision to Admit Time: 21:48 Departure-Patient Inst. Referrals: MARIIA SIM DO (PCP/Family) Primary Care Physician HERNAN MOFFETT APRN Feb 10, 2020 21:48
[2020-02-10 21:59] LABS: ALBUMIN 3.7 GM/DL (3.2-4.5); INR 1.1 (0.8-1.4); POTASSIUM 4.5 MMOL/L (3.6-5.0); PROTHROMBIN TIME PATIENT 14.2 SEC (12.2-14.7)
[2020-02-10 22:00] LABS: CALCIUM 7.9 MG/DL (8.5-10.1)
[2020-02-10 22:02] LABS: TOTAL PROTEIN 6.1 GM/DL (6.4-8.2)
[2020-02-10 22:03] LABS: BILIRUBIN,TOTAL 0.6 MG/DL (0.1-1.0)
[2020-02-10 22:05] LABS: CREATININE SERUM 2.6 MG/DL (0.60-1.30)
[2020-02-10] MEDS ORDERED: cefTRIAXone FOR IV USE 1,000 MG in WATER (STERILE) FOR INJECTION 10 ML IV ONE (22:45)
[2020-02-10] MEDS ORDERED: LEVOFLOXACIN 500 MG TAB (LEVAQUIN) PO ONE (22:45)
[2020-02-10 23:15] VITALS: BP 140/68
--- NOTE | 2020-02-10 23:15 | NUR ---
DULCE MARIA LERMA admitted to room 420-1, with an admitting diagnosis of HYPOXIA AND SUSPECTED COVID, on 02/10/20 from ED via WHEELCHAIR, accompanied by STAFF. DULCE MARIA LERAM introduced to surroundings, call light, bed controls, phone, TV, temperature control, lights, meal times, smoking policy, visitor policy, side rail policy, bathrooms and showers. Patient Rights given to patient in the handbook. DULCE MARIA LERMA verbalizes understanding that [facility] is not responsible for the loss or damage to any personal effects or valuables that are kept in the patients posession during their hospitalization. DULCE MARIA LERMA verbalizes understanding of Interdisciplinary Patient Education. Patient and/or family were informed about the Rapid Response Team and its purpose.
--- NOTE | 2020-02-10 23:30 | NUR ---
PT'S ADMISSION ORDERS STATES, "FULL CODE," BUT PT STATES THAT HE HAS DNR PAPERWORK AND IS A DNR. PT LISTED DNR PER REQUEST.
[2020-02-11 03:25] VITALS: BP 136/62
--- NOTE | 2020-02-11 05:15 | NUR ---
THIS RN ATTEMPTED TO ACCESS PT'S RIGHT CHEST PORT X2 ATTEMPTS. UNSUCCESSFUL AT THIS TIME.
--- NOTE | 2020-02-11 05:17 | Diagnostic Imaging Report ---
Indication: Cough and shortness of breath Portable chest 9:55 PM Right IJ Port-A-Cath tip projects over the SVC. Heart size and pulmonary vascularity are normal. There are no consolidating alveolar infiltrates. There are no effusions or pneumothoraces. IMPRESSION: No acute abnormalities in the chest Dictated by: Dictated on workstation # [id number]
[2020-02-11] MEDS: inSUlin ASPART (NovoLOG) 1 UNIT/0.01 ML (CHARGE PER UNIT) SC SCH ×4 (06:19→20:28)
[2020-02-11 06:32] LABS: BASOPHILS % (AUTO) 0 % (0-10); EOSINOPHILS # (AUTO) 0.3 10^3/uL (0.0-0.3); EOSINOPHILS % (AUTO) 4 % (0-10); HEMATOCRIT 31 % (40-54); HEMOGLOBIN 9.6 G/DL (13.3-17.7); LYMPHOCYTES # (AUTO) 0.8 X 10^3 (1.0-4.0); LYMPHOCYTES % (AUTO) 9 % (12-44); MEAN CORPUSCULAR HEMOGLOBIN 27 PG (25-34); MEAN CORPUSCULAR HGB CONC 31 G/DL (32-36); MEAN CORPUSCULAR VOLUME 85 FL (80-99); MEAN PLATELET VOLUME 11.6 FL (7.4-10.4); MONOCYTES # (AUTO) 0.8 X 10^3 (0.0-1.0); MONOCYTES % (AUTO) 10 % (0-12); NEUTROPHILS # (AUTO) 6.8 X 10^3 (1.8-7.8); NEUTROPHILS % (AUTO) 78 % (42-75); PLATELET COUNT 138 10^3/uL (130-400); RED CELL DISTRIBUTION WIDTH 13.5 % (10.0-14.5); WHITE BLOOD COUNT 8.8 10^3/uL (4.3-11.0)
[2020-02-11 06:58] LABS: ALBUMIN 3.5 GM/DL (3.2-4.5); POTASSIUM 4.5 MMOL/L (3.6-5.0)
[2020-02-11 06:59] LABS: CALCIUM 7.8 MG/DL (8.5-10.1)
[2020-02-11 07:01] LABS: TOTAL PROTEIN 5.8 GM/DL (6.4-8.2)
[2020-02-11 07:02] LABS: BILIRUBIN,TOTAL 0.5 MG/DL (0.1-1.0)
[2020-02-11 07:04] LABS: CREATININE SERUM 2.5 MG/DL (0.60-1.30)
[2020-02-11 07:52] VITALS: BP 156/73
[2020-02-11] MEDS: RT-ALBUTEROL INHALER HFA (VENTOLIN HFA) 18 GM IH PRN ×2 (08:47→19:28)
[2020-02-11] MEDS ORDERED: ENOXAPARIN 40 MG/0.4 ML (LOVENOX) SYR SC SCH (09:00)
[2020-02-11] MEDS: ACETAMINOPHEN 500 MG TAB (TYLENOL) PO PRN ×2 (09:06→17:18)
[2020-02-11] MEDS: ENOXAPARIN 40 MG/0.4 ML (LOVENOX) SYR SC SCH ×2 (09:06→20:27)
[2020-02-11 11:00] VITALS: BP 147/71
[2020-02-11] MEDS ORDERED: LEVOFLOXACIN 250 MG TAB (LEVAQUIN) PO SCH (11:00)
--- NOTE | 2020-02-11 12:25 | History & Physical-Hospitalist ---
History of Present Illness HPI/Chief Complaint Luisito Sims is a 55-year-old male with past medical history of hypertension, diabetes, chronic kidney disease, obstructive sleep apnea, coronary artery disease, chronic heart failure, who presented with shortness of breath. He reports that he has been feeling short of breath for the past few days. He also reports chills. He is also been feeling weak. He reports his sense of taste is abnormal. He reports some chest discomfort this morning. He reports having a cough. He denies any nausea or vomiting. He denies any diarrhea. He denies any abdominal pain. He recently started a job a [employer] and is exposed to a lot of people. Source: patient Exam Limitations: no limitations Date Seen 02/11/20 Time Seen by a Provider: 10:00 Attending Physician Latasha Ramachandran MD PCP Yang Younger DO Referring Physician Date of Admission Feb 10, 2020 at 21:57 Home Medications & Allergies Home Medications Reviewed patient Home Medication Reconciliation performed by pharmacy medication reconciliations large animal husbandry technician and/or nursing. Patients Allergies have been reviewed. Allergies Allergies Coded Allergies atorvastatin (Verified Allergy, Unknown, 10/11/18) tazobactam (Verified Allergy, Unknown, RASH, 02/10/18) Past Sfctjcv-Jkbucb-Dxjfij Hx Past Med/Social Hx: Reviewed Nursing Past Med/Soc Hx Patient Social History Alcohol Use: Denies Use Recreational Drug Use: No Smoking Status: Never a Smoker 2nd Hand Smoke Exposure: No Recent Foreign Travel: No Contact w/other who traveled: No Recent Hopitalizations: No Recent Infectious Disease Expo: No Immunizations Up To Date Tetanus Booster (TDap): Unknown Date of Pneumonia Vaccine: Jan 12, 2016 Date of Influenza Vaccine: Mar 20, 2018 Seasonal Allergies Seasonal Allergies: No Past Medical History Surgeries: Cardiac, Coronary Stent, Nose Respiratory: Pneumonia, Sleep Apnea Currently Using CPAP: Yes Currently Using BIPAP: No Cardiac: Cardiomyopathy, Coronary Artery Disease, Hypertension, Irregular Heartbeat, Peripheral Vascular Neurological: Neuropathy Reproductive: Yes (E.D.) Sexually Transmitted Disease: No HIV/AIDS: No Genitourinary: Renal Failure Gastrointestinal: Chronic Diarrhea Musculoskeletal: Arthritis, Chronic Back Pain Endocrine: Diabetes, Non-Insulin dep Psychosocial: Anxiety, Depression History of Blood Disorders: No Adverse Reaction to Blood Peterson: No Family History Arthritis G8 BROTHER (knee replacement) Cardiovascular disease 19 FATHER (chf) Deafness or hearing loss 19 MOTHER (vertigo) Diabetes mellitus 19 MOTHER Prostate cancer 19 FATHER No Pertinent Family Hx, Hypertension Review of Systems Constitutional: chills, fever EENTM: other (abnormal taste) Respiratory: cough, short of breath Cardiovascular: chest pain Gastrointestinal: no symptoms reported Genitourinary: no symptoms reported Musculoskeletal: no symptoms reported Skin: no symptoms reported Psychiatric/Neurological: No Symptoms Reported Physical Exam Physical Exam Vital Signs Vital Signs - First Documented 02/10/20 21:30 Temp 38.3 Pulse 81 Resp 18 B/P (MAP) 145/70 (95) Pulse Ox 94 O2 Delivery Nasal Cannula O2 Flow Rate 2.00 Capillary Refill : Less Than 3 Seconds Height, Weight, BMI Height: 5'10.00" Weight: 288lbs. 0.0oz. 130.157602sk; 42.93 BMI Method:Stated General Appearance: No Apparent Distress, Obese HEENT: PERRL/EOMI, Pharynx Normal Neck: Normal Inspection, Supple Respiratory: Lungs Clear, Normal Breath Sounds, No Respiratory Distress Cardiovascular: Regular Rate, Rhythm, No Murmur Gastrointestinal: Normal Bowel Sounds, Non Tender, Soft Extremity: Normal Inspection, Non Tender, Pedal Edema Neurologic/Psychiatric: Alert, Oriented x3, No Motor/Sensory Deficits, Normal Mood/Affect Skin: Normal Color, Warm/Dry Results Results/Procedures Labs Laboratory Tests 02/10/20 20:35 02/11/20 06:08 02/12/20 05:55 Patient resulted labs reviewed. Imaging: Reviewed Imaging Report Assessment/Plan Admission Diagnosis acute respiratory failure with hypoxia Admission Status: Inpatient Order (span 2 midnights) Reason for Inpatient Admission: respiratory failure, suspected COVID Assessment and Plan acute respiratory failure with hypoxia possible COVID-19 fever COVID swab pending Chest x-ray with no acute abnormalities started on Levaquin for possible pneumonia Procalcitonin normal 2 requiring a small amount of supplemental oxygen D-dimer mildly elevated UA pending CKD 4 BUN 70, creatinine 2.51, stable continue to monitor T2DM Sliding scale insulin Hypertension GABRIELLA CAD Chronic heart failure Continue home meds DVT prophylaxis: Lovenox Diagnosis/Problems Diagnosis/Problems (1) Suspected 2019 novel coronavirus infection Status: Acute (2) Respiratory failure Status: Acute Qualifiers: Chronicity: acute Respiratory failure complication: hypoxia Qualified Codes: J96.01 - Acute respiratory failure with hypoxia (3) CKD (chronic kidney disease), stage IV (4) HTN (hypertension) Status: Chronic Qualifiers: Hypertension type: essential hypertension Qualified Codes: I10 - Essential (primary) hypertension Clinical Quality Measures DVT/VTE Risk/Contraindication: Risk Factor Score Per Nursin RFS Level Per Nursing on Admit: 2=Moderate CHARLIE SHEEHAN MD Feb 11, 2020 12:25
[2020-02-11] MEDS ORDERED: CHOL100048 PO (12:36)
[2020-02-11] MEDS ORDERED: CARB15DR OU (12:36)
[2020-02-11] MEDS ORDERED: AMLO5TAB9 PO (12:36)
[2020-02-11] MEDS ORDERED: GABA300C PO (12:36)
[2020-02-11] MEDS ORDERED: FEXO-46 PO (12:36)
[2020-02-11] MEDS ORDERED: ESCI10TA55 PO (12:40)
--- NOTE | 2020-02-11 12:41 | NUR ---
SPOKE WITH THE PT ( I CALLED HIS ROOM) WENT THRU THE EXT MED HISTORY, CALLED [facility] AND CALLED DR. CANDELARIO OFFICE TO COMPLETE THE MED REC GLIMEPIRIDE 4MG- DIRECTIONS SHOW 1 TAB BID HOWEVER PT IS ONLY TAKING 1 TAB DAILY OZEMPIC: WHEN I SPOKE WITH THE PT HE NAMED THIS INJECTION AND SAID HE GOT IT A SAMPLE FROM DR. SIM. WHEN I CALLED DR. CANDELARIO OFFICE IT WAS NOTED THE LAST SAMPLE WAS GIVEN IN JUNE 2019 #1 BOX BUT THEY DO NOT BELIEVE HE IS STILL TAKING. DUE TO THESE REASONS I DID NOT INCLUDE ON THE MED REC LASIX 40MG AND METOLAZONE 5MG ARE BOTH JUST PRN OTC MEDS: ASPIRIN 81MG VIT D REFRESH
[2020-02-11 13:47] LABS: BILIRUBIN,URINE NEGATIVE (NEGATIVE); CLARITY,URINE CLEAR; COLOR,URINE YELLOW; GLUCOSE, URINE (UA) 1+ (NEGATIVE); KETONES,URINE NEGATIVE (NEGATIVE); LEUKOCYTE ESTERASE ,URINE NEGATIVE (NEGATIVE); NITRITE,URINE NEGATIVE (NEGATIVE); PH,URINE 5.5 (5-9); PROTEIN,URINE 2+ (NEGATIVE)
[2020-02-11 14:02] LABS: BACTERIA,URINE NEGATIVE /HPF; RBC,URINE 0-2 /HPF; SQUAMOUS EPITHELIAL CELL,UR RARE /HPF; WBC,URINE 0-2 /HPF
[2020-02-11] MEDS ORDERED: NON-FORMULARY MEDICATION 1 EA EA (Carboxymethylcellulose Sodium (Refresh Tears) 2 DROPS) OU PRN (15:00)
[2020-02-11] MEDS ORDERED: ARTIFICAL TEARS 0.4 ML UNIT DOSE (REFRESH PLUS) OU PRN (15:15)
[2020-02-11 16:17] VITALS: BP 179/84
--- NOTE | 2020-02-11 19:35 | NUR ---
Notified biodiesel plant manager Noy HEMPHILL that patient is positive for COVID.
--- NOTE | 2020-02-11 19:38 | NUR ---
Notified Dr Maldonado patient is positive for COVID.
[2020-02-11 20:13] VITALS: BP 165/70
[2020-02-11] MEDS: meTOprolol TARTRATE 50 MG (LOPRESSOR) TAB PO SCH (20:25)
[2020-02-11] MEDS: ROSUVASTATIN 5 MG (CRESTOR) TABLET PO SCH (20:25)
[2020-02-11] MEDS: GABAPENTIN 300 MG (NEURONTIN) CAP PO SCH (20:25)
--- NOTE | 2020-02-11 23:07 | NUR ---
This RN assumed care for this pt at 0900 from [facility] Gross. Pt was introduced to surroundings and call light, and pt needs were met at this time of handoff. Pt stated no requests at this time, and will continue to monitor pt during rounds and will proceed with pt care.
[2020-02-12] VITALS (7 sets, daily range): BP systolic 144–174; BP diastolic 72–87
[2020-02-12] MEDS: inSUlin ASPART (NovoLOG) 1 UNIT/0.01 ML (CHARGE PER UNIT) SC SCH ×4 (05:33→20:34)
[2020-02-12 06:04] LABS: BASOPHILS % (AUTO) 0 % (0-10); EOSINOPHILS % (AUTO) 0 % (0-10); HEMATOCRIT 30 % (40-54); HEMOGLOBIN 9.6 G/DL (13.3-17.7); LYMPHOCYTES # (AUTO) 0.4 X 10^3 (1.0-4.0); LYMPHOCYTES % (AUTO) 5 % (12-44); MEAN CORPUSCULAR HEMOGLOBIN 27 PG (25-34); MEAN CORPUSCULAR HGB CONC 32 G/DL (32-36); MEAN CORPUSCULAR VOLUME 85 FL (80-99); MEAN PLATELET VOLUME 11.4 FL (7.4-10.4); MONOCYTES # (AUTO) 0.2 X 10^3 (0.0-1.0); MONOCYTES % (AUTO) 3 % (0-12); NEUTROPHILS # (AUTO) 7.4 X 10^3 (1.8-7.8); NEUTROPHILS % (AUTO) 92 % (42-75); PLATELET COUNT 136 10^3/uL (130-400); RED CELL DISTRIBUTION WIDTH 13.1 % (10.0-14.5)
[2020-02-12 06:22] LABS: ALBUMIN 3.6 GM/DL (3.2-4.5); BILIRUBIN,TOTAL 0.6 MG/DL (0.1-1.0); CALCIUM 8.6 MG/DL (8.5-10.1); CREATININE SERUM 2.51 MG/DL (0.60-1.30); POTASSIUM 4.8 MMOL/L (3.6-5.0); TOTAL PROTEIN 6.2 GM/DL (6.4-8.2)
[2020-02-12] MEDS ORDERED: NON-FORMULARY MEDICATION 1 EA EA (Fexofenadine HCl 180 MG) PO SCH (09:00)
[2020-02-12] MEDS ORDERED: NON-FORMULARY MEDICATION 1 EA EA (Escitalopram Oxalate 10 MG) PO SCH (09:00)
[2020-02-12] MEDS: meTOprolol TARTRATE 50 MG (LOPRESSOR) TAB PO SCH ×2 (09:07→20:34)
[2020-02-12] MEDS: amLODIPine 5 MG (NORVASC) TAB PO SCH (09:08)
[2020-02-12] MEDS: LORATADINE (CLARITIN) 10 MG TAB PO SCH (09:08)
[2020-02-12] MEDS: ASPIRIN E.C. 81 MG (ECOTRIN) TAB PO SCH (09:09)
[2020-02-12] MEDS: GABAPENTIN 300 MG (NEURONTIN) CAP PO SCH ×2 (09:09→20:34)
[2020-02-12] MEDS: ENOXAPARIN 40 MG/0.4 ML (LOVENOX) SYR SC SCH ×2 (09:09→20:35)
[2020-02-12] MEDS: RT-ALBUTEROL INHALER HFA (VENTOLIN HFA) 18 GM IH PRN ×3 (09:14→21:30)
--- NOTE | 2020-02-12 13:36 | Progress Note - Hospitalist ---
Subjective HPI/CC On Admission Date Seen by Provider: Feb 12, 2020 Time Seen by Provider: 11:00 Luisito Sims is a 55-year-old male with past medical history of hypertension, diabetes, chronic kidney disease, obstructive sleep apnea, coronary artery disease, chronic heart failure, who presented with shortness of breath. He reports that he has been feeling short of breath for the past few days. He also reports chills. He is also been feeling weak. He reports his sense of taste is abnormal. He reports some chest discomfort this morning. He reports having a cough. He denies any nausea or vomiting. He denies any diarrhea. He denies any abdominal pain. He recently started a job a [employer] and is exposed to a lot of people. Subjective/Events-last exam he reports feeling well this morning. He still feels a bit short of breath. He still has a cough. He is sitting in his bedside chair. He has no other complaints or concerns. Focused Exam Lactate Level 02/10/20 20:35: Lactic Acid Level 0.63 Objective Exam Vital Signs Vital Signs Date Time Temp Pulse Resp B/P (MAP) Pulse Ox O2 Delivery O2 Flow Rate FiO2 02/12/20 12:05 36.6 80 18 157/77 (103) 88 NIV CPAP 2.00 Capillary Refill : Less Than 3 Seconds General Appearance: No Apparent Distress, Obese Respiratory: Lungs Clear, Normal Breath Sounds, No Respiratory Distress Cardiovascular: Regular Rate, Rhythm, No Murmur Gastrointestinal: Normal Bowel Sounds, Non Tender, Soft Extremity: Normal Inspection, Non Tender, Pedal Edema Neurologic/Psychiatric: Alert, Oriented x3, No Motor/Sensory Deficits, Normal Mood/Affect Skin: Normal Color, Warm/Dry Results/Procedures Lab Laboratory Tests 02/12/20 05:55 Patient resulted labs reviewed. Imaging: Reviewed Imaging Report Assessment/Plan Assessment and Plan Assess & Plan/Chief Complaint Acute respiratory failure with hypoxia COVID-19 COVID PCR positive Chest x-ray with no acute abnormalities Procalcitonin normal 2 Discontinue Levaquin Started on Decadron discussed Remdesivir and convalescent plasma, but patient would like to defer at this time CKD 4 BUN 70, creatinine 2.51, stable continue to monitor T2DM Sliding scale insulin Hypertension GABRIELLA CAD Chronic heart failure Continue home meds DVT prophylaxis: Lovenox Diagnosis/Problems Diagnosis/Problems (1) COVID-19 Status: Acute (2) Respiratory failure Status: Acute Qualifiers: Chronicity: acute Respiratory failure complication: hypoxia Qualified Codes: J96.01 - Acute respiratory failure with hypoxia (3) CKD (chronic kidney disease), stage IV (4) HTN (hypertension) Status: Chronic Qualifiers: Hypertension type: essential hypertension Qualified Codes: I10 - Essential (primary) hypertension Clinical Quality Measures DVT/VTE Risk/Contraindication: Risk Factor Score Per Nursin RFS Level Per Nursing on Admit: 2=Moderate CHARLIE SHEEHAN MD Feb 12, 2020 13:36
--- NOTE | 2020-02-12 20:24 | NUR ---
Contacted Dr. Maldonado and informed him that the patients blood sugar is 458. Dr. Maldonado requests 14 units of Novolog
[2020-02-12] MEDS: ROSUVASTATIN 5 MG (CRESTOR) TABLET PO SCH (20:34)
[2020-02-13 03:39] VITALS: BP 155/80
[2020-02-13] MEDS: inSUlin ASPART (NovoLOG) 1 UNIT/0.01 ML (CHARGE PER UNIT) SC SCH ×2 (06:48→12:17)
[2020-02-13 07:57] VITALS: BP 173/91
[2020-02-13] MEDS: ENOXAPARIN 40 MG/0.4 ML (LOVENOX) SYR SC SCH (08:23)
[2020-02-13] MEDS: LORATADINE (CLARITIN) 10 MG TAB PO SCH (08:23)
[2020-02-13] MEDS: meTOprolol TARTRATE 50 MG (LOPRESSOR) TAB PO SCH (08:23)
[2020-02-13] MEDS: ASPIRIN E.C. 81 MG (ECOTRIN) TAB PO SCH (08:23)
[2020-02-13] MEDS: GABAPENTIN 300 MG (NEURONTIN) CAP PO SCH (08:24)
[2020-02-13] MEDS: amLODIPine 5 MG (NORVASC) TAB PO SCH (08:26)
[2020-02-13] MEDS: RT-ALBUTEROL INHALER HFA (VENTOLIN HFA) 18 GM IH PRN (10:34)
[2020-02-13 10:36] VITALS: BP 173/91
--- NOTE | 2020-02-13 10:39 | NUR ---
pt did not go below 88% on 6 minute walk. pt does not qualify for home o2 Addendum: 02/13/20 at 1039 by DIPAK MANCIA RT Amended: Links added.
[2020-02-13 11:19] VITALS: BP 179/88
--- NOTE | 2020-02-13 13:18 | Discharge Summary ---
Discharge Summary Hospital Course Was the Problem List Reviewed?: Yes Problems/Dx: (1) COVID-19 Status: Acute (2) Respiratory failure Status: Acute Qualifiers: Qualified Codes: J96.01 - Acute respiratory failure with hypoxia (3) CKD (chronic kidney disease), stage IV (4) HTN (hypertension) Status: Chronic Qualifiers: Qualified Codes: I10 - Essential (primary) hypertension Hospital Course Date of Admission: Feb 10, 2020 at 21:57 Admission Diagnosis : acute respiratory failure with hypoxia due to COVID-19 Family Physician/Provider: Yang Sim DO Date of Discharge: 02/13/20 Discharge Diagnosis: acute respiratory failure with hypoxia due to COVID-19 Hospital Course: Luisito Sims is a 55-year-old male who presented with shortness of breath and was admitted with acute respiratory failure with hypoxia due to COVID-19. He was treated with Decadron and improved quickly. He was requiring some supplemental oxygen initially but was not requiring any on discharge. He underwent a home oxygen evaluation but did not require any supplemental oxygen. His course is complicated by a chronic kidney disease which remained stable. He should follow-up with Dr. Sim in about a week. He should have a repeat BMP next week. He will need to have a repeat COVID swab prior to returning to work. He'll need to remain in isolation once he returns home. The health department should be in contact with them for further recommendations. Labs and Pending Lab Test: Laboratory Tests 02/12/20 16:24: Glucometer 331H 02/12/20 20:05: Glucometer 458*H 02/12/20 23:28: Glucometer 370H 02/13/20 06:20: Glucometer 283H 02/13/20 11:23: Glucometer 270H Microbiology 02/10/20 Blood Culture - Preliminary, Resulted Staph, Coag Neg (HATCHERY HELPER) See Comments Home Meds Active Reported Escitalopram Oxalate 10 Mg Tablet 10 Mg PO DAILY Refresh Tears (Carboxymethylcellulose Sodium) 15 Ml Drops 2 Drops OU PRN PRN Vitamin D3 (Cholecalciferol (Vitamin D3)) 25 Mcg Capsule 25 Mcg PO DAILY Fexofenadine HCl 180 Mg Tablet 180 Mg PO DAILY Amlodipine Besylate 5 Mg Tablet 5 Mg PO DAILY Neurontin (Gabapentin) 300 Mg Capsule 600 Mg PO TID TAKES 2 (300MG) CAPS Metolazone 5 Mg Tablet 5 Mg PO DAILY PRN Hydralazine HCl 25 Mg Tablet 50 Mg PO Q8H TAKES 2(25MG) TABS Furosemide 40 Mg Tablet 40-80 Mg PO BID PRN Rosuvastatin Calcium 5 Mg Tablet 5 Mg PO HS Glimepiride 4 Mg Tablet 4 Mg PO DAILY Aspirin EC (Aspirin) 81 Mg Tablet.dr 81 Mg PO DAILY Metoprolol Tartrate 50 Mg Tablet 50 Mg PO BID Assessment/Pt Instructions take medications as prescribed. Follow up with Dr. Sim in about a week. You'll be required to remain in isolation when you get home. The health department should be in contact with you with further recommendations. Discharge Planning: <30 minutes discharge planning Discharge Instructions Discharge Diet: No Restrictions Activity as Tolerated: Yes Discharge Physical Examination Vital Signs Vital Signs Date Time Temp Pulse Resp B/P (MAP) Pulse Ox O2 Delivery O2 Flow Rate FiO2 02/13/20 11:19 36.6 73 18 179/88 (118) 93 Room Air 02/13/20 08:00 2.00 General Appearance: No Apparent Distress, Obese HEENT: PERRL/EOMI, Pharynx Normal Respiratory: Lungs Clear, Normal Breath Sounds, No Respiratory Distress Cardiovascular: Regular Rate, Rhythm, No Edema, No Murmur Gastrointestinal: Normal Bowel Sounds, Non Tender, Soft Extremity: Normal Inspection, Non Tender, No Pedal Edema Skin: Normal Color, Warm/Dry Neurologic/Psychiatric: Alert, Oriented x3, No Motor/Sensory Deficits, Normal Mood/Affect Allergies: Coded Allergies: atorvastatin (Verified Allergy, Unknown, 10/11/18) tazobactam (Verified Allergy, Unknown, RASH, 02/10/18) Copy Copies To 1: YANG SIM DO Discharge Summary Date of Admission Feb 10, 2020 at 21:57 Date of Discharge Discharge Date: Feb 13, 2020 Discharge Time: 13:17 Admission Diagnosis acute respiratory failure with hypoxia Discharge Diagnosis Acute respiratory failure with hypoxia due to COVID-19 (1) COVID-19 Status: Acute (2) Respiratory failure Status: Acute Qualifiers: Qualified Codes: J96.01 - Acute respiratory failure with hypoxia (3) CKD (chronic kidney disease), stage IV (4) HTN (hypertension) Status: Chronic Qualifiers: Qualified Codes: I10 - Essential (primary) hypertension Clinical Quality Measures DVT/VTE Risk/Contraindication: Risk Factor Score Per Nursin RFS Level Per Nursing on Admit: 2=Moderate CHARLIE SHEEHAN MD Feb 13, 2020 13:18
[2020-02-13 13:44] LABS: POTASSIUM 5.3 MMOL/L (3.6-5.0)
[2020-02-13 13:45] LABS: CALCIUM 8.6 MG/DL (8.5-10.1)
[2020-02-13 13:49] LABS: CREATININE SERUM 2.24 MG/DL (0.60-1.30)
--- NOTE | 2020-02-13 14:42 | NUR ---
This RN has spoken to the patient regarding process for the repeat COVID swab through the outpatient drive-thru. He is aware that he just needs to drive up to the [facility] entrance by the [email or web address] shop between the hours of 8 and 9 in the morning. I have taken the [facility] form and the discharge outpatient order to the lab for the Tuesday test.
--- NOTE | 2020-02-13 15:30 | NUR ---
CM/SS: Visited with pt via phone in room due to being COVID positive as to plan for discharge Plan: Pt to return home with no identified services Summary: Discussed with pt his plan for discharge and his mode of transportation. He reports that his friend is unable to pick him up as he had a recent kidney transplant, and he does not want to expose him. He also reports other friends are older and in the high risk category. This worker ask pt if he has a car and can someone bring it to him to drive home. He reports that he has his keys. He suggest taking a taxi home, or the Care Van. Risk and safety are discussed. This worker checks with the [facility] [phone] - they are unable to transport due to being at risk for COVID 19. The worker calls supervisor type photography Elo Bishop to determine next steps. Pt calls this worker back and reports if someone can get his keys downstairs he has a friend and his girlfriend that is willing to get his car and leave it for him to drive home. Arrangements are made to get his keys to the entrance for his friend to nut picker. Pt will be able to return home by driving and no one is at risk for COVID 19. Pt will have a follow up COVID 19 test on 02/19/2020 he has been given instruction for returning to the hospital to obtain the testing.
== END 2020-02-13 15:45 | disposition home or self-care (01) | DRG 177 ==
LOC: EDUNIT# 21:12 → ER 21:14 → 4TH 21:57
PROVIDERS: ADMIT Family Medicine; ATTEND Internal Medicine
DX: U07.1 COVID-19 (principal); J96.01 Acute respiratory failure with hypoxia; I13.0 Hypertensive heart and chronic kidney disease with heart failure and stage 1 through stage 4 chronic kidney disease, or unspecified chronic kidney disease; N18.4 Chronic kidney disease, stage 4 (severe); I42.9 Cardiomyopathy, unspecified; Z68.41 Body mass index [BMI] 40.0-44.9, adult; I50.9 Heart failure, unspecified; I25.10 Atherosclerotic heart disease of native coronary artery without angina pectoris; E11.42 Type 2 diabetes mellitus with diabetic polyneuropathy; E11.319 Type 2 diabetes mellitus with unspecified diabetic retinopathy without macular edema; F41.9 Anxiety disorder, unspecified; K52.9 Noninfective gastroenteritis and colitis, unspecified; G47.33 Obstructive sleep apnea (adult) (pediatric); E66.9 Obesity, unspecified; E11.51 Type 2 diabetes mellitus with diabetic peripheral angiopathy without gangrene; M19.91 Primary osteoarthritis, unspecified site; M54.9 Dorsalgia, unspecified; F32.9 Major depressive disorder, single episode, unspecified; N52.9 Male erectile dysfunction, unspecified; Z95.5 Presence of coronary angioplasty implant and graft; Z79.84 Long term (current) use of oral hypoglycemic drugs
CPT/HCPCS: 36415; 71045; 80048; 80053; 81000; 82962; 83605; 83880; 84145; 84484; 85025; 85379; 85610; 85730; 86141; 87040; 87635; 93005; 94640; 94761

== ENCOUNTER → 2020-02-19 | Outpatient (CLI) | payer SELFPAY ==
[~2020-02-19] MED LIST changes: +ASPI-1238 PO; -ASPI-983 PO; +CARB15DR OU; +CHOL100048 PO; +ESCI10TA55 PO; +FEXO-46 PO
== END ==
LOC: LABNPT 05:42
PROVIDERS: ATTEND Internal Medicine
DX: Z20.828 Contact with and (suspected) exposure to other viral communicable diseases (principal)
CPT/HCPCS: 87635

== ENCOUNTER 2020-12-22 10:12 | Observation (INO) | payer OTHER ==
[~2020-12-22] VITALS: Ht 180 cm; Wt 127.0 kg
[~2020-12-22 10:12] MED LIST changes: +AMLO-250 PO; +AMLO-251 PO; -AMLO10TA7 PO; -AMLO5TAB9 PO; +CLN.1T PO; -CLON0.1T PO; +ESCI-2 PO; -ESCI10TA55 PO; -LISI-552 PO; -LISI10TA2 PO; +LISI10TA25 PO; +LISI20TA26 PO; -PANT40TA3 PO; +PANT40TA52 PO
--- NOTE | 2020-12-22 10:54 | ED Cough/URI ---
General Chief Complaint: Cough/Cold/Flu Symptoms Stated Complaint: WEIGHT LOSS, SINUS INFECTION Nursing Triage Note: Pt reports "sinus infection" starting mid week last week. Pt reports he has been weak and has lost appetite and reports weight loss of 10-12 pounds since last week. Source: patient Exam Limitations: no limitations History of Present Illness Date Seen by Provider: Dec 22, 2020 Time Seen by Provider: 10:30 Initial Comments Patient to the ER by private conveyance from Dr. Sim's office who called ahead and stated that the patient had 1 week of sinus congestion without drainage, occasional cough no fevers but he has had some chills. Some lightheadedness the past couple days. Has had decreased appetite and a little occasional nausea. He has a history of chronic kidney disease diabetes on glimepiride and blood sugar was 226 this morning in the clinic. The patient does not routinely check his sugars and thought that was on since his sugar usually never runs high and he has not been able to eat in the past couple days. He says he is lost 10 to 12 pounds since last Tuesday, 5 days ago. He had Covid about 7 or 8 months ago and had Fei & Fei vaccination about 3 mo nths ago. No diarrhea abdominal pain chest pain. He does not have lung disease or. Allergies and Home Medications Allergies Coded Allergies: atorvastatin (Verified Allergy, Unknown, 10/11/18) tazobactam (Verified Allergy, Unknown, RASH, 02/10/18) Home Medications Acetaminophen 325 Mg Tablet, 650 MG PO Q6H PRN for PAIN-MILD (1-4), (Reported) Last Action: Reviewed Amlodipine Besylate 5 Mg Tablet, 5 MG PO DAILY, (Reported) Last Action: Reviewed Aspirin 81 Mg Tablet.dr, 81 MG PO DAILY, (Reported) Last Action: Reviewed Cholecalciferol (Vitamin D3) 25 Mcg Capsule, 25 MCG PO DAILY, (Reported) Last Action: Reviewed Ferrous Sulfate 325 Mg Tablet, 325 MG PO DAILY, (Reported) Last Action: Reviewed Fexofenadine HCl 180 Mg Tablet, 180 MG PO DAILY, (Reported) Last Action: Reviewed Furosemide 40 Mg Tablet, 40-80 MG PO 1400 PRN for FLUID RETENTION, (Reported) Last Action: Reviewed Gabapentin 300 Mg Capsule, 600 MG PO TID, (Reported) TAKES 2 (300MG) CAPS Last Action: Reviewed Glimepiride 4 Mg Tablet, 4 MG PO DAILY, (Reported) Last Action: Reviewed Hydralazine HCl 50 Mg Tablet, 50 MG PO TID, (Reported) Last Action: Reviewed Metoprolol Tartrate 50 Mg Tablet, 50 MG PO BID, (Reported) Last Action: Reviewed Rosuvastatin Calcium 5 Mg Tablet, 5 MG PO HS, (Reported) Last Action: Reviewed Patient Home Medication List Home Medication List Reviewed: Yes Review of Systems Review of Systems Constitutional: chills; No fever; malaise, weakness EENTM: No ear discharge, No ear pain Respiratory: No cough, No short of breath Cardiovascular: No chest pain, No edema Gastrointestinal: No abdominal pain; diarrhea, nausea, vomiting Genitourinary: No discharge, No dysuria Musculoskeletal: No back pain, No joint pain All Other Systems Reviewed Negative Unless Noted: Yes Past Txqjcen-Xfkkrl-Znmqyj Hx Patient Social History Tobacco Use?: No Use of E-Cig and/or Vaping dev: No Substance use?: No Alcohol Use?: No Immunizations Up To Date Tetanus Booster (TDap): Unknown Second COVID19 Vaccination Escobar: August 2020 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: [employer] Seasonal Allergies Seasonal Allergies: No Past Medical History Surgery/Hospitalization HX: type 2 diabetes, neck surgery Surgeries: Yes (NASAL POLYPS REMOVED CHILD, heart cath x2,cystoscopy, ) Cardiac, Coronary Stent, Nose Respiratory: Yes Pneumonia, Sleep Apnea Currently Using CPAP: Yes Currently Using BIPAP: No Cardiac: Yes (PAD, stent placed in 06/30) Cardiomyopathy, Coronary Artery Disease, Hypertension, Irregular Heartbeat, Jeanne pheral Vascular Neurological: Yes (NEUROPATHY IN LEGS/ FEET) Neuropathy Reproductive Disorders: Yes (E.D.) Sexually Transmitted Disease: No HIV/AIDS: No Genitourinary: Yes Renal Failure Gastrointestinal: Yes Chronic Diarrhea Musculoskeletal: Yes Arthritis, Chronic Back Pain Endocrine: Yes Diabetes, Non-Insulin dep HEENT: No (DIABETIC RETINOPATHY) Cancer: No Psychosocial: Yes Anxiety, Depression Integumentary: No Blood Disorders: No Adverse Reaction/Blood Tranf: No Family Medical History Arthritis G8 BROTHER (knee replacement) Cardiovascular disease 19 FATHER (chf) Deafness or hearing loss 19 MOTHER (vertigo) Diabetes mellitus 19 MOTHER Prostate cancer 19 FATHER No Pertinent Family Hx, Hypertension Physical Exam Vital Signs - First Documented 12/22/20 10:21 Pulse 68 Resp 18 B/P (MAP) 187/96 (126) Pulse Ox 97 O2 Delivery Room Air Capillary Refill : Less Than 3 Seconds Height: 5'10.00" Weight: 288lbs. 0.0oz. 130.434731jj; 39.00 BMI Method:Stated General Appearance: mild distress, obese Eyes: Bilateral Eye Normal Inspection, Bilateral Eye PERRL, Bilateral Eye EOMI HEENT: PERRL/EOMI, pharynx normal Neck: full range of motion, normal inspection Respiratory: lungs clear, normal breath sounds, no respiratory distress, no accessory muscle use Cardiovascular: normal peripheral pulses, regular rate, rhythm Gastrointestinal: normal bowel sounds, non tender, soft, no organomegaly Extremities: non-tender, normal inspection, normal capillary refill Neurologic/Psychiatric: alert, normal mood/affect, oriented x 3 Skin: normal color, warm/dry Procedures/Interventions Date of ETT Placement: Feb 03, 2018 Time of ETT Placement: 0503 Progress/Results/Core Measures Suspected Sepsis SIRS Temperature: Pulse: 68 Respiratory Rate: 18 Laboratory Tests 12/22/20 11:09: White Blood Count 4.1L Blood Pressure 187 /96 Mean: 126 Laboratory Tests 12/22/20 11:09: Creatinine 2.30H, Platelet Count 165, Total Bilirubin 0.9 Results/Orders Lab Results Laboratory Tests Test 12/22/20 10:32 12/22/20 11:09 12/22/20 12:04 Range/Units Influenza Type A (RT-PCR) Not Detected Not Detecte Influenza Type B (RT-PCR) Not Detected Not Detecte SARS-CoV-2 RNA (RT-PCR) Detected H Not Detecte White Blood Count 4.1 L 4.3-11.0 10^3/uL Red Blood Count 4.82 4.30-5.52 10^6/uL Hemoglobin 12.6 L 13.3-17.7 g/dL Hematocrit 40 40-54 % Mean Corpuscular Volume 83 80-99 fL Mean Corpuscular Hemoglobin 26 25-34 pg Mean Corpuscular Hemoglobin Concent 32 32-36 g/dL Red Cell Distribution Width 14.4 10.0-14.5 % Platelet Count 165 130-400 10^3/uL Mean Platelet Volume 9.9 9.0-12.2 fL Immature Granulocyte % (Auto) 1 % Neutrophils (%) (Auto) 83 H 42-75 % Lymphocytes (%) (Auto) 8 L 12-44 % Monocytes (%) (Auto) 6 0-12 % Eosinophils (%) (Auto) 2 0-10 % Basophils (%) (Auto) 0 0-10 % Neutrophils # (Auto) 3.4 1.8-7.8 10^3/uL Lymphocytes # (Auto) 0.3 L 1.0-4.0 10^3/uL Monocytes # (Auto) 0.2 0.0-1.0 10^3/uL Eosinophils # (Auto) 0.1 0.0-0.3 10^3/uL Basophils # (Auto) 0.0 0.0-0.1 10^3/uL Immature Granulocyte # (Auto) 0.0 0.0-0.1 10^3/uL D-Dimer 1.57 H 0.00-0.49 UG/ML Sodium Level 143 135-145 MMOL/L Potassium Level 4.5 3.6-5.0 MMOL/L Chloride Level 110 H 98-107 MMOL/L Carbon Dioxide Level 21 21-32 MMOL/L Anion Gap 12 5-14 MMOL/L Blood Urea Nitrogen 63 H 7-18 MG/DL Creatinine 2.30 H 0.60-1.30 MG/DL Estimat Glomerular Filtration Rate 30 BUN/Creatinine Ratio 27 Glucose Level 194 H 70-105 MG/DL Calcium Level 8.7 8.5-10.1 MG/DL Corrected Calcium 9.1 8.5-10.1 MG/DL Total Bilirubin 0.9 0.1-1.0 MG/DL Aspartate Amino Transf (AST/SGOT) 26 5-34 U/L Alanine Aminotransferase (ALT/SGPT) 27 0-55 U/L Alkaline Phosphatase 71 40-136 U/L C-Reactive Protein High Sensitivity 7.29 H 0.00-0.50 MG/DL B-Type Natriuretic Peptide 550.9 H <100.0 PG/ML Total Protein 6.2 L 6.4-8.2 GM/DL Albumin 3.5 3.2-4.5 GM/DL Procalcitonin 1.91 H <0.10 NG/ML Smear Scan YES Urine Color YELLOW Urine Clarity CLEAR Urine pH 6.0 5-9 Urine Specific Cascade 1.015 L 1.016-1.022 Urine Protein 3+ H NEGATIVE Urine Glucose (UA) NEGATIVE NEGATIVE Urine Ketones NEGATIVE NEGATIVE Urine Nitrite NEGATIVE NEGATIVE Urine Bilirubin NEGATIVE NEGATIVE Urine Urobilinogen 0.2 < = 1.0 MG/DL Urine Leukocyte Esterase NEGATIVE NEGATIVE Urine RBC (Auto) 1+ H NEGATIVE Urine RBC 2-5 H /HPF Urine WBC RARE /HPF Urine Squamous Epithelial Cells RARE /HPF Urine Crystals NONE /LPF Urine Bacteria TRACE /HPF Urine Casts NONE /LPF Urine Mucus NEGATIVE /LPF Urine Culture Indicated NO My Orders Orders - ELMIRA ORTEZ Covid 19 Inhouse Test (12/22/20 10:30) Influenza A And B By Pcr (12/22/20 10:30) Cbc With Automated Diff (12/22/20 10:30) Comprehensive Metabolic Panel (12/22/20 10:30) Ua Culture If Indicated (12/22/20 10:30) Chest 1 View, Ap/Pa Only (12/22/20 10:50) Hs C Reactive Protein (12/22/20 10:50) Ed Iv/Invasive Line Start (12/22/20 10:50) Ns Iv 1000 Ml (Sodium Chloride 0.9%) (12/22/20 11:00) Fibrin Degradation Products (12/22/20 11:39) Procalcitonin (Pct) (12/22/20 11:39) BNP (12/22/20 12:16) Vital Signs/I&O 12/22/20 12/22/20 10:21 10:26 Pulse 68 Resp 18 B/P (MAP) 187/96 (126) Pulse Ox 97 O2 Delivery Room Air Room Air Capillary Refill : Less Than 3 Seconds Blood Pressure Mean: 126 Progress Note #1: Time: 10:54 Progress Note Not having any sinus pressure or tenderness on examination. Plan to give him a chest x-ray some labs a liter of fluids and get some urine and blood looking for HHS/DKA. CRP will help us differentiate between a bacterial and viral infection. Covid swab. Progress Note #2: Time: 12:00 Progress Note Patient still feels very weak and although he is not requiring oxygen he is dehydrated and has elected for an observation stay for gentle fluid rehydration. Diagnostic Imaging Diagonstic Imaging: Xray Plain Films/CT/US/NM/MRI: chest Comments [facility] [place], [place] NAME: DULCE MARIA LERMA MED REC#: [id number] PT STATUS: ADM IN : 1965 PHYSICIAN: ELMIRA ORTEZ MD ADMIT DATE: 12/22/20 Signed Date of Exam:12/22/20 CHEST 1 VIEW, AP/PA ONLY Indication: COVID. Compared: 02/10/2020 Findings: The heart is enlarged and increased from prior. There is vascular congestion. There is bilateral mixed interstitial and airspace opacity suspect for recurrence of edema. No effusion or pneumothorax however. Right IJ at the lower SVC. Impression: Cardiomegaly, vascular congestion and probable pulmonary edema. Dictated by: Dictated on workstation # [id number] Dict: 12/22/20 1155 Trans: 12/22/20 1642 CVB [id number] Interpreted by: GLENN VILLATORO Electronically signed by: GLENN VILLATORO 12/22/20 1642 Reviewed: Reviewed by Me Departure Communication (Admissions) Time/Spoke to Admitting Phy: 12:20 Dr. Ramachandran agrees to observe Impression Primary Impression: COVID-19 Additional Impression: Dehydration Disposition: ADMITTED INPATIENT Condition: Stable Admissions Decision to Admit Reason: Admit from ER (General) Decision to Admit/Date: Dec 22, 2020 Time/Decision to Admit Time: 12:20 Departure-Patient Inst. Referrals: MARIIA SIM DO (PCP/Family) Primary Care Physician ELMIAR ORTEZ Dec 22, 2020 10:54
[2020-12-22] MEDS ORDERED: NS IV 1000 ML 1,000 ML IV SCH (11:00)
[2020-12-22 11:20] LABS: BASOPHILS % (AUTO) 0 % (0-10); EOSINOPHILS # (AUTO) 0.1 10^3/uL (0.0-0.3); EOSINOPHILS % (AUTO) 2 % (0-10); HEMATOCRIT 40 % (40-54); HEMOGLOBIN 12.6 g/dL (13.3-17.7); LYMPHOCYTES # (AUTO) 0.3 10^3/uL (1.0-4.0); LYMPHOCYTES % (AUTO) 8 % (12-44); MEAN CORPUSCULAR HEMOGLOBIN 26 pg (25-34); MEAN CORPUSCULAR HGB CONC 32 g/dL (32-36); MEAN CORPUSCULAR VOLUME 83 fL (80-99); MEAN PLATELET VOLUME 9.9 fL (9.0-12.2); MONOCYTES # (AUTO) 0.2 10^3/uL (0.0-1.0); MONOCYTES % (AUTO) 6 % (0-12); NEUTROPHILS # (AUTO) 3.4 10^3/uL (1.8-7.8); NEUTROPHILS % (AUTO) 83 % (42-75); PLATELET COUNT 165 10^3/uL (130-400); WHITE BLOOD COUNT 4.1 10^3/uL (4.3-11.0)
[2020-12-22 11:24] LABS: ALBUMIN 3.5 GM/DL (3.2-4.5)
[2020-12-22 11:25] LABS: POTASSIUM 4.5 MMOL/L (3.6-5.0)
[2020-12-22 11:26] LABS: CALCIUM 8.7 MG/DL (8.5-10.1)
[2020-12-22 11:27] LABS: TOTAL PROTEIN 6.2 GM/DL (6.4-8.2)
[2020-12-22 11:28] LABS: SMEAR SCAN COMMENT YES
[2020-12-22 11:29] LABS: BILIRUBIN,TOTAL 0.9 MG/DL (0.1-1.0)
[2020-12-22 11:31] LABS: CREATININE SERUM 2.3 MG/DL (0.60-1.30)
--- NOTE | 2020-12-22 12:05 | Diagnostic Imaging Report ---
Indication: COVID. Compared: 02/10/2020 Findings: The heart is enlarged and increased from prior. There is vascular congestion. There is bilateral mixed interstitial and airspace opacity suspect for recurrence of edema. No effusion or pneumothorax however. Right IJ at the lower SVC. Impression: Cardiomegaly, vascular congestion and probable pulmonary edema. Dictated by: Dictated on workstation # [id number]
[2020-12-22 12:14] LABS: BILIRUBIN,URINE NEGATIVE (NEGATIVE); CLARITY,URINE CLEAR; COLOR,URINE YELLOW; GLUCOSE, URINE (UA) NEGATIVE (NEGATIVE); KETONES,URINE NEGATIVE (NEGATIVE); LEUKOCYTE ESTERASE ,URINE NEGATIVE (NEGATIVE); NITRITE,URINE NEGATIVE (NEGATIVE); PROTEIN,URINE 3+ (NEGATIVE)
[2020-12-22 12:31] LABS: BACTERIA,URINE TRACE /HPF; SQUAMOUS EPITHELIAL CELL,UR RARE /HPF; WBC,URINE RARE /HPF
[2020-12-22] MEDS ORDERED: ACETAMINOPHEN 325 MG TABLET PO PRN ×2 (14:00→18:15)
[2020-12-22] MEDS ORDERED: ONDANSETRON 4 MG/2 ML (SDV) Z0FRAN IV PRN (14:00)
[2020-12-22] MEDS ORDERED: CATHETER FLUSH 10 ML SYR IV PRN (14:00)
[2020-12-22 14:29] VITALS: BP 189/90
[2020-12-22] MEDS: LACTATED RINGERS 1,000 ML IV SCH ×2 (15:16→21:49)
[2020-12-22] MEDS ORDERED: HYDR-3924 PO (15:28)
[2020-12-22] MEDS ORDERED: ACET325T38 PO (15:28)
[2020-12-22] MEDS ORDERED: FERR-84 PO (15:28)
[2020-12-22 15:44] VITALS: BP 146/69
[2020-12-22] MEDS: inSUlin ASPART (NovoLOG) 1 UNIT/0.01 ML (CHARGE PER UNIT) SC SCH ×2 (16:22→20:14)
[2020-12-22 19:40] VITALS: BP 162/80
[2020-12-22] MEDS: GABAPENTIN 300 MG (NEURONTIN) CAP PO SCH (20:14)
[2020-12-22] MEDS: meTOprolol TARTRATE 50 MG (LOPRESSOR) TAB PO SCH (20:14)
[2020-12-22] MEDS: hydrALAZINE (APRESOLINE) 25 MG TAB PO SCH (20:14)
[2020-12-22] MEDS ORDERED: NON-FORMULARY MEDICATION 1 EA EA (Hydralazine HCl 50 MG) PO SCH (21:00)
[2020-12-22] MEDS ORDERED: ROSUVASTATIN 5 MG (CRESTOR) TABLET PO SCH (21:00)
[2020-12-22 23:42] VITALS: BP 164/76
[2020-12-23 03:39] VITALS: BP_SYST 161; BP_SYST 173; BP_DIAS 75; BP_DIAS 86
[2020-12-23] MEDS: LACTATED RINGERS 1,000 ML IV SCH (06:04)
[2020-12-23] MEDS: inSUlin ASPART (NovoLOG) 1 UNIT/0.01 ML (CHARGE PER UNIT) SC SCH ×2 (06:04→11:28)
[2020-12-23 06:42] LABS: BASOPHILS % (AUTO) 0 % (0-10); EOSINOPHILS # (AUTO) 0.2 10^3/uL (0.0-0.3); EOSINOPHILS % (AUTO) 3 % (0-10); HEMATOCRIT 36 % (40-54); HEMOGLOBIN 11.1 g/dL (13.3-17.7); LYMPHOCYTES # (AUTO) 0.5 10^3/uL (1.0-4.0); LYMPHOCYTES % (AUTO) 10 % (12-44); MEAN CORPUSCULAR HEMOGLOBIN 26 pg (25-34); MEAN CORPUSCULAR HGB CONC 31 g/dL (32-36); MEAN CORPUSCULAR VOLUME 84 fL (80-99); MEAN PLATELET VOLUME 9.8 fL (9.0-12.2); MONOCYTES # (AUTO) 0.2 10^3/uL (0.0-1.0); MONOCYTES % (AUTO) 5 % (0-12); NEUTROPHILS # (AUTO) 3.5 10^3/uL (1.8-7.8); NEUTROPHILS % (AUTO) 81 % (42-75); PLATELET COUNT 161 10^3/uL (130-400); WHITE BLOOD COUNT 4.4 10^3/uL (4.3-11.0)
[2020-12-23 07:10] LABS: SMEAR SCAN COMMENT YES
[2020-12-23 07:11] LABS: POTASSIUM 4.7 MMOL/L (3.6-5.0)
[2020-12-23 07:17] LABS: CREATININE SERUM 1.9 MG/DL (0.60-1.30)
[2020-12-23 07:57] VITALS: BP 150/77
[2020-12-23] MEDS ORDERED: NON-FORMULARY MEDICATION 1 EA EA (Fexofenadine HCl 180 MG) PO SCH (09:00)
[2020-12-23] MEDS ORDERED: LORATADINE (CLARITIN) 10 MG TAB PO SCH (09:00)
[2020-12-23] MEDS ORDERED: FERROUS SULF 325 MG (IRON) TAB PO SCH (09:00)
[2020-12-23] MEDS ORDERED: amLODIPine 5 MG (NORVASC) TAB PO SCH (09:00)
[2020-12-23] MEDS ORDERED: ASPIRIN E.C. 81 MG (ECOTRIN) TAB PO SCH (09:00)
[2020-12-23] MEDS: meTOprolol TARTRATE 50 MG (LOPRESSOR) TAB PO SCH (09:05)
[2020-12-23] MEDS: hydrALAZINE (APRESOLINE) 25 MG TAB PO SCH ×2 (09:06→12:52)
[2020-12-23] MEDS: GABAPENTIN 300 MG (NEURONTIN) CAP PO SCH ×2 (09:06→12:52)
--- NOTE | 2020-12-23 09:18 | Physical Therapy Evaluation ---
PT Evaluation-General Medical Diagnosis Admission Date Dec 22, 2020 at 12:25 Medical Diagnosis: Covid Onset Date: Dec 22, 2020 Therapy Diagnosis Therapy Diagnosis: debility Height/Weight Height (Feet): 5 Height (Inches): 10.00 Weight (Pounds): 288 Weight (Ounces): 0.0 Precautions Precautions/Isolations: Standard Precautions Referral Physician: Duarte Reason for Referral: Evaluation/Treatment Medical History Pertinent Medical History: Arthritis, CAD, DM, Heart Failure, HTN, Neuropathy, PVD Current History ER secondary to weight loss and weakness/sinus infection x 1 week Reviewed History: Yes Social History Home: Single Level Current Living Status: Alone Prior Prior Level of Function SCALE: Activities may be completed with or without assistive devices. 9-Qmxpktqrxa-uabpuho completes the activity by him/herself with no assistance from a helper. 5-Set-up or Clean-up Assistance-helper sets up or cleans up; patient completes activity. [place] assists only prior to or following the activity. 4-Supervision or Touching Assistance-helper provides verbal cues and/or touching/steadying and/or contact guard assistance as patient completes activity. Assistance may be provided throughout the activity or intermittently. 3-Partial/Moderate Assistance-helper does LESS THAN HALF the effort. [place] lifts, holds or supports trunk or limbs, but provides less than half the effort. 2-Substantial/Maximal Assistance-helper does MORE THAN HALF the effort. [place] lifts or holds trunk or limbs and provides more than half the effort. 3-Janpmtotb-mgnrcv does ALL the effort. Patient does none of the effort to complete the activity. Or, the assistance of 2 or more helpers is required for the patient to complete the activity. If activity was not attempted, code reason: 7-Patient Refused. 9-Not Applicable-not attempted and the patient did not perform the activity before the current illness, exacerbation or injury. 10-Not Attempted due to Environmental Limitations-(lack of equipment, weather restraints, etc.). 88-Not Attempted due to Medical Conditions or Safety Concerns. Bed Mobility: 6 Transfers (B,C,W/C): 6 Gait: 6 Indoor Mobility (Ambulation): Independent Prior Device Use: cane PT Evaluation-Current Subjective Patient states he hopes to go home today. Objective Patient Orientation: Normal For Age Attachments: Oxygen, IV Patient removed O2 and stated he wasn't going to wear it anymore. ROM/Strength ROM Lower Extremities bilateral LE WFL Strength Lower Extremities 4/5 grossly bilateral LE Integumentary/Posture Bowel Incontinence: No Bladder Incontinence: No Posture WFL Neuromuscular (Tone, Coordination, Reflexes) grossly intact Sensory Vision: Wears Glasses Hearing: Functional Sensation Right Lower Extremit: Impaired Sensation Left Lower Extremity: Impaired Transfers Sit to Lying (QC): 6 Lying to Sitting/Side of Bed(Q: 6 Sit to Stand (QC): 6 Chair/Qyt-dz-Shrgl Xfer(QC): 6 Gait Does the Patient Walk?: Yes Mode of Locomotion: Walk Anticipated Mode of Locomotion: Walk Walk 10 feet (QC): 6 Walk 50 ft with 2 Turns(QC): 6 Walk 150 ft (QC): 6 Distance: 150' in room Gait Assistive Device: Cane Single Point Comments/Gait Description safe and functional with no deviation Balance Sitting Static: Normal Sitting Dynamic: Normal Standing Static: Normal Standing Dynamic: Normal Picking up an Object (QC): 6 Assessment/Needs 55 y.o. male, is currently at [facility] with all gross motor skills and does not require skilled therapy intervention. Rehab Potential: Fair PT Plan Treatment/Plan Treatment Plan: Discontinue PT, goals met Treatment Duration: Dec 23, 2020 Frequency: 1 time per week Estimated Hrs Per Day: .25 hour per day Patient and/or Family Agrees t: Yes Time/GCodes Time In: 750 Time Out: 800 Total Billed Treatment Time: 10 Total Billed Treatment 1 visit EVLowC 10 min MARK RAMIREZ PT Dec 23, 2020 09:17
--- NOTE | 2020-12-23 09:24 | Diagnostic Imaging Report ---
INDICATION: Covid positive, shortness of air COMPARISON: 12/22/2020 TECHNIQUE: Single radiograph of the chest dated 12/23/2020 FINDINGS: Right IJ central venous catheter is again identified and stable. Postsurgical changes of the cervical spine are again seen. The cardiac silhouette is enlarged, stable. Mild central pulmonary vascular congestion is noted. Patchy mixed interstitial and airspace opacities are noted within the lungs bilaterally. This is slightly worsened within the left midlung. No significant pleural effusion. No pneumothorax. No acute osseous abnormality. IMPRESSION: Bilateral pulmonary infiltrates again identified, slightly worsened within the left midlung. Persistent cardiomegaly with mild central pulmonary vascular congestion. Dictated by: Dictated on workstation # [id number]
--- NOTE | 2020-12-23 09:50 | Short Stay Summary-Hospitalist ---
History of Present Illness HPI/Chief Complaint Pt is a 55yoCM who presented to the ER due to profound weakness. He states that he thought he had a sinus infection for the past week or so but continued to get worse. He has had a cough as well but no fevers. He Source: patient Date Seen 12/23/20 Time Seen by a Provider: 09:48 Attending Physician Latasha Ramachandran MD PCP Yang Younger DO Referring Physician Date of Admission Dec 22, 2020 at 12:25 Home Medications & Allergies Home Medications Reviewed patient Home Medication Reconciliation performed by pharmacy medication reconciliations corrosion technician and/or nursing. Patients Allergies have been reviewed. Allergies Allergies Coded Allergies atorvastatin (Verified Allergy, Unknown, 10/11/18) tazobactam (Verified Allergy, Unknown, RASH, 02/10/18) Past Ybcfdze-Gefimk-Fbjxpr Hx Patient Social History Tobacco Use?: No Use of E-Cig and/or Vaping dev: No Substance use?: No Alcohol Use?: No Immunizations Up To Date Date of Influenza Vaccine: Mar 20, 2018 Second COVID19 Vaccination Escobar: August 2020 Tetanus Booster (TDap): Less Than 5 Years Date of Pneumonia Vaccine: Jan 12, 2016 Seasonal Allergies Seasonal Allergies: No Current Status Advance Directives: Yes Advance Directive Location: Copy from prev record Communicates: Verbally Primary Language: Emirati Preferred Spoken Language: Emirati Is interpretation needed?: No Past Medical History Surgeries: Cardiac, Coronary Stent, Nose Pneumonia, Sleep Apnea Currently Using CPAP: Yes Currently Using BIPAP: No Cardiomyopathy, Coronary Artery Disease, Hypertension, Irregular Heartbeat, Peripheral Vascular Neuropathy Sexually Transmitted Disease: No HIV/AIDS: No Renal Failure Chronic Diarrhea Arthritis, Chronic Back Pain Diabetes, Non-Insulin dep Anxiety, Depression Blood Disorders: No Adverse Reaction/Blood Tranf: No Family Medical History Arthritis G8 BROTHER (knee replacement) Cardiovascular disease 19 FATHER (chf) Deafness or hearing loss 19 MOTHER (vertigo) Diabetes mellitus 19 MOTHER Prostate cancer 19 FATHER No Pertinent Family Hx, Hypertension Physical Exam Physical Exam Vital Signs Vital Signs - First Documented 12/22/20 12/22/20 12/22/20 10:21 14:29 21:55 Temp 36.6 Pulse 68 Resp 18 B/P (MAP) 187/96 (126) Pulse Ox 97 O2 Delivery Room Air O2 Flow Rate 21.00 Capillary Refill : Less Than 3 Seconds Height, Weight, BMI Height: 5'10.00" Weight: 288lbs. 0.0oz. 130.916516df; 39.19 BMI Method:Stated Eyes: Bilateral Eye Normal Inspection, Bilateral Eye PERRL, Bilateral Eye EOMI Results Results/Procedures Labs Laboratory Tests 12/22/20 11:09 12/23/20 06:28 Patient resulted labs reviewed. Short Stay Diagnosis Discharge Diagnosis-Short Stay Admission Diagnosis COVID19 Final Discharge Diagnosis COVID19 Conclusion Plan COVID19 Weakness LATASHA RAMACHANDRAN MD Dec 23, 2020 09:50
--- NOTE | 2020-12-23 09:55 | Discharge Inst-Simple/Standard ---
Discharge Inst-Standard Patient Instructions/Follow Up Plan of Care/Instructions/FU: Please continue to take your medications as written. Please follow up with your primary care doctor to follow up this hospital stay. Activity as Tolerated: Yes Discharge Diet: No Restrictions Return to The Hospital For: Chest pain, shortness of breath, fever, confusion, weakness, if you feel you are getting worse. SHAYNA MARTIN MD Dec 23, 2020 09:55
[2020-12-23 11:19] VITALS: BP 154/75
== END 2020-12-23 14:09 | disposition other institution (70) ==
LOC: EDUNIT# 10:12 → ER 10:14 → 4TH 12:25 → UNDOADMOB 12:25 → INTOOBSV 12:25 → 4TH 14:29 → UNDODISOB 12-23 14:20
PROVIDERS: ADMIT Family Medicine; ATTEND Family Medicine
DX: U07.1 COVID-19 (principal); I42.9 Cardiomyopathy, unspecified; E86.0 Dehydration; E11.22 Type 2 diabetes mellitus with diabetic chronic kidney disease; I12.9 Hypertensive chronic kidney disease with stage 1 through stage 4 chronic kidney disease, or unspecified chronic kidney disease; N18.9 Chronic kidney disease, unspecified; E11.40 Type 2 diabetes mellitus with diabetic neuropathy, unspecified; E11.319 Type 2 diabetes mellitus with unspecified diabetic retinopathy without macular edema; F32.9 Major depressive disorder, single episode, unspecified; F41.9 Anxiety disorder, unspecified; M19.90 Unspecified osteoarthritis, unspecified site; I25.10 Atherosclerotic heart disease of native coronary artery without angina pectoris; G47.30 Sleep apnea, unspecified; J18.9 Pneumonia, unspecified organism; Z79.84 Long term (current) use of oral hypoglycemic drugs; Z79.899 Other long term (current) drug therapy; Z79.82 Long term (current) use of aspirin
CPT/HCPCS: 36415; 71045; 80048; 80053; 81000; 82947; 83880; 84145; 85025; 85379; 86141; 87205; 87636; 94660; 94760; G0378

== ENCOUNTER → 2021-02-05 | Outpatient (CLI) | payer OTHER ==
[~2021-02-05] MED LIST changes: +ACET325T38 PO; +FERR-84 PO; +HYDR-3924 PO
[2021-02-05 10:17] LABS: HEMATOCRIT 31 % (40-54); HEMOGLOBIN 9.3 g/dL (13.3-17.7); MEAN CORPUSCULAR HEMOGLOBIN 27 pg (25-34); MEAN CORPUSCULAR HGB CONC 30 g/dL (32-36); MEAN CORPUSCULAR VOLUME 89 fL (80-99); MEAN PLATELET VOLUME 10.5 fL (9.0-12.2); PLATELET COUNT 188 10^3/uL (130-400); WHITE BLOOD COUNT 7.4 10^3/uL (4.3-11.0)
[2021-02-05 10:41] LABS: ALANINE AMINOTRANSFERASE 21 U/L (0-55); ALBUMIN 3.5 GM/DL (3.2-4.5); ALKALINE PHOSPHATASE 102 U/L (40-136); BILIRUBIN,TOTAL 0.8 MG/DL (0.1-1.0); BUN/CREATININE RATIO 23; CALCIUM 8.6 MG/DL (8.5-10.1); CARBON DIOXIDE 21 MMOL/L (21-32); CHLORIDE 110 MMOL/L (98-107); CHOLESTEROL 81 MG/DL (< 200); CREATININE SERUM 2.92 MG/DL (0.60-1.30); GFR ESTIMATED 23; GLUCOSE 201 MG/DL (70-105); HDL CHOLESTEROL 34 MG/DL (40-60); POTASSIUM 4.6 MMOL/L (3.6-5.0); SODIUM 139 MMOL/L (135-145); TOTAL PROTEIN 6.2 GM/DL (6.4-8.2); TRIGLYCERIDES 48 MG/DL (<150); VLDL CHOLESTEROL 10 MG/DL (5-40)
--- NOTE | 2021-02-05 10:47 | Diagnostic Imaging Report ---
INDICATION: Fever. TIME OF EXAM: 10:34 AM Correlation is made with prior chest from 09/12/2018. FINDINGS: The heart is enlarged, but stable. There is right chest wall port with tip overlying SVC. Appears to be some minimal infiltrate in right base as well as development of a small right effusion. Left lung demonstrates some linear scarring or atelectasis in the left midlung field. No pneumothorax is seen. Extensive postsurgical changes in the cervical spine are noted. IMPRESSION: Cardiomegaly with some minimal infiltrate or atelectasis right base as well as a small right effusion. Dictated by: Dictated on workstation # [id number]
== END ==
LOC: RAD 09:52
PROVIDERS: ATTEND Internal Medicine Cardiovascular Disease
DX: I51.7 Cardiomegaly (principal); J90 Pleural effusion, not elsewhere classified; E78.2 Mixed hyperlipidemia
CPT/HCPCS: 36415; 71046; 80053; 80061; 83036; 84443; 84484; 85027

== ENCOUNTER → 2021-02-11 | Outpatient (CLI) | payer OTHER ==
--- NOTE | 2021-02-11 10:56 | Diagnostic Imaging Report ---
INDICATION: Covid pneumonia, Port-A-Cath. COMPARISON: 02/05/2021. FINDINGS: Frontal and lateral views of the chest demonstrate stable cardiac enlargement. The bilateral pulmonary infiltrates are unchanged. There is no pneumothorax or effusion. The Port-A-Cath is stable. The osseous structures are normal. IMPRESSION: Unchanged bilateral pulmonary infiltrates. The report was faxed to Infection Control by [email or web address]@10:56 AM. Dictated by: Dictated on workstation # [id number]
== END ==
LOC: RAD 09:36
PROVIDERS: ATTEND Family Medicine
DX: U07.1 COVID-19 (principal); J12.82 Pneumonia due to coronavirus disease 2019
CPT/HCPCS: 36415; 71046; 83036; 83880

== ENCOUNTER → 2021-02-11 | Outpatient (CLI) | payer OTHER | LOC: CARD 11:00 | PROVIDERS: ATTEND Internal Medicine Cardiovascular Disease | DX: I08.0 Rheumatic disorders of both mitral and aortic valves (principal); I11.9 Hypertensive heart disease without heart failure | CPT/HCPCS: 93306 ==

== ENCOUNTER → 2021-03-11 | Outpatient (CLI) | payer OTHER ==
[~2021-03-11] MED LIST changes: -DOXY100C2 PO; +DOXY100C5 PO
--- NOTE | 2021-03-11 13:10 | Diagnostic Imaging Report ---
INDICATION: Left knee injury 2 views of left knee show no fracture, dislocation or other acute abnormalities. IMPRESSION: Negative left knee. Dictated by: Dictated on workstation # [id number]
== END ==
LOC: RAD 12:19
PROVIDERS: ATTEND Family Medicine
DX: S89.92XA Unspecified injury of left lower leg, initial encounter (principal); W19.XXXA Unspecified fall, initial encounter
CPT/HCPCS: 73562

== ENCOUNTER 2021-04-27 11:47 | Inpatient (IN) | payer OTHER ==
[~2021-04-27] VITALS: Ht 177.8 cm; Wt 148.9 kg
--- NOTE | 2021-04-27 12:01 | ED GI ---
General Chief Complaint: Abdominal/GI Problems Stated Complaint: ABD PAIN Nursing Triage Note: PT BROUGHT IN BY [facility] FROM DR CANDELARIO OFFICE FOR ABD PAIN/ SWELLING. HAS BEEN OUT OF LASIX FOR 2 WEEKS. Source of Information: Patient, EMS Exam Limitations: No Limitations History of Present Illness Date Seen by Provider: Apr 27, 2021 Time Seen by Provider: 11:59 Initial Comments To ER by EMS from Dr. Sim's office (primary care) with reports of abdominal pain/distention, periorbital edema and general weakness. He allegedly ran out of his Lasix (40mg daily) 2 weeks ago. Remains on metolazone 2.5mg daily. History of chronic kidney disease, NIDDM, coronary artery disease with stenting. Drain Tiler is Dr. Perez. Denies fevers chills cough or shortness of breath. Had COVID and was admitted here in December of 2020. Timing/Duration: 2-3 Days Severity/Quality: Moderate Location: Generalized Abdomen Radiation: No Radiation Activities at Onset: None Modifying Factors: Improves With Analgesics Associated Symptoms: Nausea/Vomiting Allergies and Home Medications Allergies Coded Allergies: atorvastatin (Verified Allergy, Unknown, 10/11/18) tazobactam (Verified Allergy, Unknown, RASH, 02/10/18) Patient Home Medication List Home Medication List Reviewed: Yes Acetaminophen (Tylenol) 325 Mg Tablet, 650 MG PO Q6H PRN for PAIN-MILD (1-4), (Reported) Entered as Reported by: MARYAM TEJEDA on 12/22/20 1528 Amlodipine Besylate (Amlodipine Besylate) 5 Mg Tablet, 5 MG PO DAILY, (Reported) Entered as Reported by: RUEL MONTENEGRO on 02/11/20 1236 Aspirin (Aspirin EC) 81 Mg Tablet.dr, 81 MG PO DAILY, (Reported) Entered as Reported by: SETH SWIFT on 07/03/17 1310 Cholecalciferol (Vitamin D3) (Vitamin D3) 25 Mcg Capsule, 25 MCG PO DAILY, (Reported) Entered as Reported by: RUEL MONTENEGRO on 02/11/20 1236 Ferrous Sulfate (Iron) 325 Mg Tablet, 325 MG PO DAILY, (Reported) Entered as Reported by: MARYAM TEJEDA on 12/22/20 1528 Fexofenadine HCl (Fexofenadine HCl) 180 Mg Tablet, 180 MG PO DAILY, (Reported) Entered as Reported by: RUEL MONTENEGRO on 02/11/20 1236 Furosemide (Furosemide) 40 Mg Tablet, 40-80 MG PO 1400 PRN for FLUID RETENTION, (Reported) Entered as Reported by: CURLY RAIN on 10/11/18 0731 Gabapentin (Neurontin) 300 Mg Capsule, 600 MG PO TID, (Reported) Entered as Reported by: RUEL MONTENEGRO on 02/11/20 1236 Glimepiride (Glimepiride) 4 Mg Tablet, 4 MG PO DAILY, (Reported) Entered as Reported by: DEWAYNE SHEN on 01/23/18 1211 Hydralazine HCl (Hydralazine HCl) 50 Mg Tablet, 50 MG PO TID, (Reported) Entered as Reported by: MARYAM TEJEDA on 12/22/20 1528 Metoprolol Tartrate (Metoprolol Tartrate) 50 Mg Tablet, 50 MG PO BID, (Reported) Entered as Reported by: SETH SWIFT on 07/03/17 1310 Rosuvastatin Calcium (Rosuvastatin Calcium) 5 Mg Tablet, 5 MG PO HS, (Reported) Entered as Reported by: DEWAYNE SHEN on 01/23/18 1211 Review of Systems Review of Systems Constitutional: see HPI EENTM: No Symptoms Reported Respiratory: No Symptoms Reported Cardiovascular: No Symptoms Reported Gastrointestinal: See HPI, Abdominal Pain, Constipated (Last bowel movement was 3 days ago which is normal for him); Denies Diarrhea, Denies Nausea, Denies Vomiting Genitourinary: No Symptoms Reported Musculoskeletal: no symptoms reported Skin: no symptoms reported Psychiatric/Neurological: No Symptoms Reported Endocrine: No Symptoms Reported Hematologic/Lymphatic: No Symptoms Reported Past Gvdhrnh-Dprvms-Eoocvd Hx Patient Social History Tobacco Use?: No Use of E-Cig and/or Vaping dev: No Substance use?: No Alcohol Use?: No Pt feels they are or have been: No Immunizations Up To Date Tetanus Booster (TDap): Unknown First/Initial COVID19 Vaccinat: August 2020 Second COVID19 Vaccination Escobar: August 2020 Third COVID19 Vaccination Date: August 2020 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: [employer] Seasonal Allergies Seasonal Allergies: No Past Medical History Surgery/Hospitalization HX: type 2 diabetes, neck surgery Surgeries: Yes (NASAL POLYPS REMOVED CHILD, heart cath x2,cystoscopy, ) Cardiac, Coronary Stent, Nose Respiratory: Yes Pneumonia, Sleep Apnea Currently Using CPAP: Yes Currently Using BIPAP: No Cardiac: Yes (PAD, stent placed in 06/30) Cardiomyopathy, Coronary Artery Disease, Hypertension, Irregular Heartbeat, Peripheral Vascular Neurological: Yes (NEUROPATHY IN LEGS/ FEET) Neuropathy Reproductive Disorders: Yes (E.D.) Sexually Transmitted Disease: No HIV/AIDS: No Genitourinary: Yes Renal Failure Gastrointestinal: Yes Chronic Diarrhea Musculoskeletal: Yes Arthritis, Chronic Back Pain Endocrine: Yes Diabetes, Non-Insulin dep HEENT: No (DIABETIC RETINOPATHY) Cancer: No Psychosocial: Yes Anxiety, Depression Integumentary: No Blood Disorders: No Adverse Reaction/Blood Tranf: No Family Medical History Arthritis G8 BROTHER (knee replacement) Cardiovascular disease 19 FATHER (chf) Deafness or hearing loss 19 MOTHER (vertigo) Diabetes mellitus 19 MOTHER Prostate cancer 19 FATHER No Pertinent Family Hx, Hypertension Physical Exam Vital Signs Vital Signs - First Documented 04/27/21 11:50 Temp 36.2 Pulse 61 Resp 17 Pulse Ox 91 O2 Delivery Room Air Capillary Refill : Less Than 3 Seconds Height/Weight/BMI Height: 5'10.00" Weight: 288lbs. 0.0oz. [id number]; 42.00 BMI Method:Stated General Appearance: WD/WN, no apparent distress, obese, other (Appears chronically ill and older than stated age. Periorbital edema. No respiratory distress. Abdomen is distended. Anasarca noted with periorbital edema, abdominal wall pitting edema and pitting edema bilateral lower extremities.) HEENT: other (periorbital edema) Neck: non-tender, full range of motion Respiratory: no respiratory distress, no accessory muscle use Gastrointestinal: normal bowel sounds, distended, other (Firm distended pitting edema of the abdominal wall) Extremities: normal range of motion, non-tender Neurologic/Psychiatric: alert, normal mood/affect, oriented x 3 Skin: normal color, warm/dry Procedures/Interventions Date of ETT Placement: Feb 03, 2018 Time of ETT Placement: 0503 Progress/Results/Core Measures Results/Orders Lab Results Laboratory Tests Test 04/27/21 11:57 04/27/21 12:13 Range/Units White Blood Count 8.8 4.3-11.0 10^3/uL Red Blood Count 4.95 4.30-5.52 10^6/uL Hemoglobin 12.1 L 13.3-17.7 g/dL Hematocrit 42 40-54 % Mean Corpuscular Volume 84 80-99 fL Mean Corpuscular Hemoglobin 24 L 25-34 pg Mean Corpuscular Hemoglobin Concent 29 L 32-36 g/dL Red Cell Distribution Width 16.6 H 10.0-14.5 % Platelet Count 193 130-400 10^3/uL Mean Platelet Volume 10.5 9.0-12.2 fL Immature Granulocyte % (Auto) 1 % Neutrophils (%) (Auto) 84 H 42-75 % Lymphocytes (%) (Auto) 5 L 12-44 % Monocytes (%) (Auto) 7 0-12 % Eosinophils (%) (Auto) 3 0-10 % Basophils (%) (Auto) 1 0-10 % Neutrophils # (Auto) 7.4 1.8-7.8 10^3/uL Lymphocytes # (Auto) 0.4 L 1.0-4.0 10^3/uL Monocytes # (Auto) 0.6 0.0-1.0 10^3/uL Eosinophils # (Auto) 0.3 0.0-0.3 10^3/uL Basophils # (Auto) 0.0 0.0-0.1 10^3/uL Immature Granulocyte # (Auto) 0.1 0.0-0.1 10^3/uL Neutrophils % (Manual) 85 % Lymphocytes % (Manual) 5 % Monocytes % (Manual) 4 % Eosinophils % (Manual) 5 % Basophils % (Manual) 1 % Band Neutrophils 0 % Polychromasia MODERATE Anisocytosis MODERATE Sodium Level 136 135-145 MMOL/L Potassium Level 5.6 H 3.6-5.0 MMOL/L Chloride Level 104 98-107 MMOL/L Carbon Dioxide Level 20 L 21-32 MMOL/L Anion Gap 12 5-14 MMOL/L Blood Urea Nitrogen 106 *H 7-18 MG/DL Creatinine 3.94 H 0.60-1.30 MG/DL Estimat Glomerular Filtration Rate 16 BUN/Creatinine Ratio 27 Glucose Level 170 H 70-105 MG/DL Calcium Level 8.2 L 8.5-10.1 MG/DL Corrected Calcium 8.4 L 8.5-10.1 MG/DL Magnesium Level 3.0 H 1.6-2.4 MG/DL Total Bilirubin 0.7 0.1-1.0 MG/DL Aspartate Amino Transf (AST/SGOT) 22 5-34 U/L Alanine Aminotransferase (ALT/SGPT) 19 0-55 U/L Alkaline Phosphatase 123 40-136 U/L Myoglobin 420.9 H 10.0-92.0 NG/ML Troponin I 0.036 H <0.028 NG/ML B-Type Natriuretic Peptide 964.1 H <100.0 PG/ML Total Protein 6.3 L 6.4-8.2 GM/DL Albumin 3.7 3.2-4.5 GM/DL Lipase 22 8-78 U/L Prothrombin Time 15.1 H 12.2-14.7 SEC INR Comment 1.2 0.8-1.4 Activated Partial Thromboplast Time 31 24-35 SEC My Orders Orders - HERNAN MOFFETT APRN Cbc With Automated Diff (04/27/21 11:54) Magnesium (04/27/21 11:54) Chest 1 View, Ap/Pa Only (04/27/21 11:54) Ekg Tracing (04/27/21 11:54) Comprehensive Metabolic Panel (04/27/21 11:54) Myoglobin Serum (04/27/21 11:54) Protime With Inr (04/27/21 11:54) Partial Thromboplastin Time (04/27/21 11:54) O2 (04/27/21 11:54) Monitor-Rhythm Ecg Trace Only (04/27/21 11:54) Lipid Panel (04/28/21 06:00) Ed Iv/Invasive Line Start (04/27/21 11:54) Lipase (04/27/21 11:54) BNP (04/27/21 11:54) Troponin I (04/27/21 11:54) Ct Abdomen/Pelvis Wo (04/27/21 11:54) Manual Differential (04/27/21 11:57) Furosemide Injection (Lasix Injection) (04/27/21 13:00) Vital Signs/I&O 04/27/21 11:50 Temp 36.2 Pulse 61 Resp 17 B/P (MAP) Pulse Ox 91 O2 Delivery Room Air Departure Communication (Admissions) Family Conversation NAME: DULCE MARIA LERMA MED REC#: [id number] PT STATUS: REG ER : 1965 PHYSICIAN: HERNAN MOFFETT APRN ADMIT DATE: 04/27/21/ER Draft Date of Exam:04/27/21 CHEST 1 VIEW, AP/PA ONLY EXAMINATION: Chest 1 view HISTORY: Chest pain COMPARISON: 12/23/2020. FINDINGS: Stable enlargement of the cardiac silhouette. There are mild interstitial opacities within the mid and lower lungs. No pleural effusion or pneumothorax. A right IJ central line is present with the tip projecting over the SVC. The osseous structures are intact. IMPRESSION: 1. Cardiomegaly and mild perihilar hazy opacities which could be seen with atypical infection or pulmonary edema. Dictated on workstation # [id number] Dict: 04/27/21 1244 Trans: 04/27/21 1248 [id number] Interpreted by: JIMMIE ZENDEJAS DO Electronically signed by: [id number]-I discussed with Dr. Maldonado and Dr. Perez. Will admit here for congestive heart failure exacerbation, acute kidney injury superimposed on chronic kidney disease. I will continue his metolazone, do Lasix 80 mg IV twice daily, repeat kidney function in the morning, daily weight, low-sodium diet, supplemental o xygen as needed. Currently his blood pressure is 151/79, heart rate is 60, oxygen 91% on room air. No respiratory distress or accessory muscle use. Is alert and oriented. His EKG shows no ST segment change, no ectopy, low voltage, rate of 61. He denies chest pain. 1302-I did discuss CODE STATUS with him. I posed the question "if your heart stops unexpectedly do you want us to try to resuscitate you for let you go". He states "DO NOT RESUSCITATE, let me go". I also discussed with him if the plan to diurese does not improve kidney function then he may require transfer to a facility with nephrology for possible dialysis. I asked if he would want that done if necessary. He replies "I'm not sure". Impression Primary Impression: FRANCISCA (acute kidney injury) Additional Impressions: CKD (chronic kidney disease) CHF (congestive heart failure) Disposition: ADMITTED INPATIENT Condition: Stable Admissions Decision to Admit Reason: Admit from ER (General) Decision to Admit/Date: Apr 27, 2021 Time/Decision to Admit Time: 12:49 Departure-Patient Inst. Referrals: MARIIA SIM DO (PCP/Family) Primary Care Physician HERNAN MOFFETT APRN Apr 27, 2021 12:01
[2021-04-27 12:02] LABS: BASOPHILS % (AUTO) 1 % (0-10); EOSINOPHILS # (AUTO) 0.3 10^3/uL (0.0-0.3); EOSINOPHILS % (AUTO) 3 % (0-10); HEMATOCRIT 42 % (40-54); HEMOGLOBIN 12.1 g/dL (13.3-17.7); LYMPHOCYTES # (AUTO) 0.4 10^3/uL (1.0-4.0); LYMPHOCYTES % (AUTO) 5 % (12-44); MEAN CORPUSCULAR HEMOGLOBIN 24 pg (25-34); MEAN CORPUSCULAR HGB CONC 29 g/dL (32-36); MEAN CORPUSCULAR VOLUME 84 fL (80-99); MEAN PLATELET VOLUME 10.5 fL (9.0-12.2); MONOCYTES # (AUTO) 0.6 10^3/uL (0.0-1.0); MONOCYTES % (AUTO) 7 % (0-12); NEUTROPHILS # (AUTO) 7.4 10^3/uL (1.8-7.8); NEUTROPHILS % (AUTO) 84 % (42-75); PLATELET COUNT 193 10^3/uL (130-400); WHITE BLOOD COUNT 8.8 10^3/uL (4.3-11.0)
[2021-04-27 12:15] LABS: ALBUMIN 3.7 GM/DL (3.2-4.5); POTASSIUM 5.6 MMOL/L (3.6-5.0)
[2021-04-27 12:16] LABS: CALCIUM 8.2 MG/DL (8.5-10.1)
[2021-04-27 12:18] LABS: TOTAL PROTEIN 6.3 GM/DL (6.4-8.2)
[2021-04-27 12:20] LABS: BILIRUBIN,TOTAL 0.7 MG/DL (0.1-1.0)
[2021-04-27 12:21] LABS: CREATININE SERUM 3.94 MG/DL (0.60-1.30)
[2021-04-27 12:26] LABS: ANISOCYTOSIS MODERATE; BAND NEUTROPHILS 0 %; BASOPHILS % (MANUAL) 1 %; EOSINOPHILS % (MANUAL) 5 %; LYMPHOCYTES % (MANUAL) 5 %; MONOCYTES % (MANUAL) 4 %; NEUTROPHILS % (MANUAL) 85 %; POLYCHROMASIA MODERATE
[2021-04-27 12:34] LABS: INR 1.2 (0.8-1.4); PROTHROMBIN TIME PATIENT 15.1 SEC (12.2-14.7)
--- NOTE | 2021-04-27 12:49 | Diagnostic Imaging Report ---
EXAMINATION: Chest 1 view HISTORY: Chest pain COMPARISON: 12/23/2020. FINDINGS: Stable enlargement of the cardiac silhouette. There are mild interstitial opacities within the mid and lower lungs. No pleural effusion or pneumothorax. A right IJ central line is present with the tip projecting over the SVC. The osseous structures are intact. IMPRESSION: 1. Cardiomegaly and mild perihilar hazy opacities which could be seen with atypical infection or pulmonary edema. Dictated by: Dictated on workstation # [id number]
--- NOTE | 2021-04-27 12:59 | Diagnostic Imaging Report ---
PROCEDURE: CT abdomen and pelvis without contrast. TECHNIQUE: Multiple contiguous axial images were obtained through the abdomen and pelvis without the use of intravenous contrast. Auto Exposure Controls were utilized during the CT exam to meet ALARA standards for radiation dose reduction. INDICATION: Abdominal swelling. COMPARISON: Comparison is made with prior CT from 08/09/2018. FINDINGS: Imaging through the lung bases does show a very small right pleural effusion, new since prior exam. No left-sided pleural fluid is seen on today's study. Patient has developed some ascites since prior CT. There is some perihepatic and perisplenic ascites. Small amount of free fluid in the gutters is noted as well. No discrete liver mass is identified. Gallbladder is unremarkable. Pancreas and spleen are unremarkable. No adrenal mass is detected. A cyst in the upper pole of the left kidney has increased in size measuring 8.4 cm compared with 6.7 cm. No renal calculi are identified. There is no hydronephrosis. Aorta is nonaneurysmal. Bowel loops are normal in caliber. There is no obstruction. There is some diverticulosis of the sigmoid but no evidence of acute diverticulitis. The bladder and prostate are unremarkable. There is some edema throughout the subcutaneous tissues suggestive of anasarca. IMPRESSION: 1. Development of a small right pleural effusion as well as abdominal ascites when compared with prior study from 08/09/2018. There is also subcutaneous edema in the abdominal wall consistent with anasarca. 2. Slight increase in size of the upper pole left renal cyst. 3. No other significant abnormality is detected. Dictated by: Dictated on workstation # [id number]
[2021-04-27] MEDS ORDERED: FUROSEMIDE 40 MG/4 ML INJ (LASIX) IVP ONE (13:00)
[2021-04-27 14:00] VITALS: BP 159/85
[2021-04-27] MEDS ORDERED: METO2.5T PO (15:26)
[2021-04-27] MEDS ORDERED: RT-ALBUTEROL SULF 2.5 MG/3 ML PRE-MIX VIAL INH PRN (16:00)
[2021-04-27] MEDS ORDERED: LIDOCAINE UROJET 2% GEL 10 ML PKG ONE (16:34)
--- NOTE | 2021-04-27 16:54 | Consultation-Cardiology ---
HPI-Cardiology Cardiology Consultation Date of Consultation 04/27/21 Date of Admission Time Seen by Provider: 16:48 Indication: Fluid overload HPI 56 years old gentleman with extensive history, has history of coronary artery disease and chronic kidney disease, has been maintained on diuretics, has stopped taking his diuretics. Having worsening abdominal swelling, periorbital swelling and pedal edema. Generalized fatigue and loss of energy. Came into the emergency room and noted to be in end-stage kidney disease. He denied any chest pain, no significant dyspnea beyond baseline. No palpitation or syncope Home Medications & Allergies Allergies: Coded Allergies: atorvastatin (Verified Allergy, Unknown, 10/11/18) tazobactam (Verified Allergy, Unknown, RASH, 02/10/18) Home Medication List Reviewed: Yes BYD-Odqnop-Ckpxyw Hx Patient Social History Smoking Status: Never a Smoker 2nd Hand Smoke Exposure: No Recent Hopitalizations: No Have you traveled recently?: No Alcohol Use?: No Immunizations Up To Date Tetanus Booster (TDap): Unknown Date of Pneumonia Vaccine: Jan 12, 2016 Date of Influenza Vaccine: Mar 20, 2018 Past Medical History Discussed below Family Medical History Significant Family History: No Pertinent Family Hx, Hypertension Family History: Arthritis G8 BROTHER (knee replacement) Cardiovascular disease 19 FATHER (chf) Deafness or hearing loss 19 MOTHER (vertigo) Diabetes mellitus 19 MOTHER Prostate cancer 19 FATHER Review of Systems-General Review of Systems Constitutional: see HPI, malaise EENTM: see HPI, no symptoms reported Respiratory: see HPI; No cough; dyspnea on exertion; No hemoptysis, No orthopnea, No phlegm, No short of breath, No stridor, No wheezing, No other Cardiovascular: see HPI; No chest pain; edema; No Hx of Intervention, No palpitations, No syncope, No vascular heart diseas, No other Gastrointestinal: see HPI, other (Abdominal swelling) Genitourinary: see HPI Musculoskeletal: no symptoms reported Skin: no symptoms reported Psychiatric/Neurological: No Symptoms Reported Reviewed Test Results Reviewed Test Results Lab Laboratory Tests Test 04/27/21 11:57 04/27/21 12:13 04/27/21 15:12 Range/Units White Blood Count 8.8 4.3-11.0 10^3/uL Red Blood Count 4.95 4.30-5.52 10^6/uL Hemoglobin 12.1 L 13.3-17.7 g/dL Hematocrit 42 40-54 % Mean Corpuscular Volume 84 80-99 fL Mean Corpuscular Hemoglobin 24 L 25-34 pg Mean Corpuscular Hemoglobin Concent 29 L 32-36 g/dL Red Cell Distribution Width 16.6 H 10.0-14.5 % Platelet Count 193 130-400 10^3/uL Mean Platelet Volume 10.5 9.0-12.2 fL Immature Granulocyte % (Auto) 1 % Neutrophils (%) (Auto) 84 H 42-75 % Lymphocytes (%) (Auto) 5 L 12-44 % Monocytes (%) (Auto) 7 0-12 % Eosinophils (%) (Auto) 3 0-10 % Basophils (%) (Auto) 1 0-10 % Neutrophils # (Auto) 7.4 1.8-7.8 10^3/uL Lymphocytes # (Auto) 0.4 L 1.0-4.0 10^3/uL Monocytes # (Auto) 0.6 0.0-1.0 10^3/uL Eosinophils # (Auto) 0.3 0.0-0.3 10^3/uL Basophils # (Auto) 0.0 0.0-0.1 10^3/uL Immature Granulocyte # (Auto) 0.1 0.0-0.1 10^3/uL Neutrophils % (Manual) 85 % Lymphocytes % (Manual) 5 % Monocytes % (Manual) 4 % Eosinophils % (Manual) 5 % Basophils % (Manual) 1 % Band Neutrophils 0 % Polychromasia MODERATE Anisocytosis MODERATE Sodium Level 136 135-145 MMOL/L Potassium Level 5.6 H 3.6-5.0 MMOL/L Chloride Level 104 98-107 MMOL/L Carbon Dioxide Level 20 L 21-32 MMOL/L Anion Gap 12 5-14 MMOL/L Blood Urea Nitrogen 106 *H 7-18 MG/DL Creatinine 3.94 H 0.60-1.30 MG/DL Estimat Glomerular Filtration Rate 16 BUN/Creatinine Ratio 27 Glucose Level 170 H 70-105 MG/DL Calcium Level 8.2 L 8.5-10.1 MG/DL Corrected Calcium 8.4 L 8.5-10.1 MG/DL Magnesium Level 3.0 H 1.6-2.4 MG/DL Total Bilirubin 0.7 0.1-1.0 MG/DL Aspartate Amino Transf (AST/SGOT) 22 5-34 U/L Alanine Aminotransferase (ALT/SGPT) 19 0-55 U/L Alkaline Phosphatase 123 40-136 U/L Myoglobin 420.9 H 10.0-92.0 NG/ML Troponin I 0.036 H <0.028 NG/ML B-Type Natriuretic Peptide 964.1 H <100.0 PG/ML Total Protein 6.3 L 6.4-8.2 GM/DL Albumin 3.7 3.2-4.5 GM/DL Lipase 22 8-78 U/L Prothrombin Time 15.1 H 12.2-14.7 SEC INR Comment 1.2 0.8-1.4 Activated Partial Thromboplast Time 31 24-35 SEC Glucometer 129 H 70-110 MG/DL Physical Exam Physical Exam Vital Signs Vital Signs - First Documented 04/27/21 04/27/21 04/27/21 11:50 13:56 15:48 Temp 36.2 Pulse 61 Resp 17 B/P (MAP) 160/78 Pulse Ox 91 O2 Delivery Room Air O2 Flow Rate 2.00 FiO2 21 Capillary Refill : Less Than 3 Seconds Height, Weight, BMI Height: 5'10.00" Weight: 288lbs. 0.0oz. 130.405017pn; 47.10 BMI Method:Stated General Appearance: No Apparent Distress, WD/WN Eyes: Bilateral Eye Normal Inspection, Bilateral Eye PERRL, Bilateral Eye EOMI HEENT: PERRL/EOMI, TMs Normal, Normal ENT Inspection, Pharynx Normal, Moist Mucous Membranes Neck: Full Range of Motion, Normal Inspection, Non Tender, Supple, Carotid Bru it Respiratory: Chest Non Tender, Normal Breath Sounds, No Accessory Muscle Use, No Respiratory Distress Cardiovascular: Regular Rate, Rhythm, No Edema, No Gallop, No JVD, Normal Peripheral Pulses, Systolic Murmur Gastrointestinal: Normal Bowel Sounds, No Organomegaly, No Pulsatile Mass, Non Tender, Soft Back: Normal Inspection, No CVA Tenderness, No Vertebral Tenderness Extremity: Normal Capillary Refill, Normal Inspection, Normal Range of Motion, Non Tender, No Calf Tenderness, Pedal Edema Neurologic/Psychiatric: Alert, Oriented x3, No Motor/Sensory Deficits, Normal Mood/Affect Skin: Normal Color, Warm/Dry Lymphatic: No Adenopathy A/P-Cardiology Admission Diagnosis Anasarca Chronic kidney disease Coronary artery disease Hypertension Assessment/Plan Fluid overload with anasarca, starting on diuretics. 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 Patient had progressive worsening of his renal function, has not been taking diuretics and still having significant deterioration in renal function. May require hemodialysis, defer the management to the medical team Generalized fatigue and shortness of breath, loss of energy. Progression from his baseline. Electrolyte imbalance secondary to renal function. Continue to monitor and replace Status post neck surgery, spinal stenosis, complicated by pneumonia and bacteremia and respiratory failure. Mild elevation of troponin, no active chest pain. No acute EKG changes. Probably type II myocardial infarction secondary to worsening renal function and small vessel coronary artery disease Coronary artery disease Status post stenting to the mid LAD using 3.018 mm Alpine stent expanded to 3.25 done in June 2017. Cardiac catheterization done in October 2018 showing patent stent in the mid LAD with moderate disease at the proximal and distal portion of the artery, had BMW wire placed across the LAD that straightened the LAD and the area looked better, at 60-70 percent proximal first obtuse marginal disease that did not change compared to the study of 2018, 50 percent distal right coronary artery. Conservative management is recommended no intervention is needed. Carotid artery stenosis-mild nonobstructive disease per carotid duplex done November 2018, continue to monitor. Diabetes mellitus, managed by Dr. Younger. Diabetic neuropathy, has been followed by primary care physician Hypertension, monitor blood pressure. Restart home medication Hyperlipidemia, intolerant to Lipitor with severe diarrhea, continue to monitor lipids History of erectile dysfunction, most likely secondary to peripheral neuropathy. Lower extremity pain, likely secondary to neuropathy, patient underwent peripheral angiogram done February 09, 2016 revealing mild to moderate disease in the anterior tibial of the left lower extremity and posterior tibial at 60-70 percent. Anterior tibial with good flow down to the ankle on the left lower extremity, otherwise mild disease in the right lower extremity and abdominal aorta. AILYN is normal Depression, Anxiety, lost his 17 years old son who drowned in summer 2018 Patient has a living will, Do Not Resuscitate KAREN YANG MD Apr 27, 2021 16:54
[2021-04-27] MEDS: inSUlin ASPART (NovoLOG) 1 UNIT/0.01 ML (CHARGE PER UNIT) SC SCH ×2 (17:13→20:12)
[2021-04-27] MEDS: meTOprolol TARTRATE 50 MG (LOPRESSOR) TAB PO SCH (20:12)
[2021-04-27] MEDS: GABAPENTIN 600 MG (NEURONTIN) TAB PO SCH (20:12)
[2021-04-27] MEDS: ROSUVASTATIN 5 MG (CRESTOR) TABLET PO SCH (20:12)
[2021-04-27] MEDS: hydrALAZINE (APRESOLINE) 25 MG TAB PO SCH (20:13)
[2021-04-27 20:18] VITALS: BP 176/91
--- NOTE | 2021-04-27 20:28 | History & Physical-Hospitalist ---
History of Present Illness HPI/Chief Complaint Luisito Sims is a 56 year old male with PMH HTN, T2DM, HLD, CAD, CHF, who presented with swelling. He reports leg swelling and abdominal swelling. He feels distended. He stopped taking his diuretics a few weeks ago. He denies any fevers or chills. He denies chest pain. He denies shortness of breath and cough. He denies nausea and vomiting. Source: patient Exam Limitations: no limitations Date Seen 04/27/21 Time Seen by a Provider: 18:10 Attending Physician Charlie Sheehan MD PCP Yang Younger DO Referring Physician Date of Admission Apr 27, 2021 at 12:47 Home Medications & Allergies Home Medications Reviewed patient Home Medication Reconciliation performed by pharmacy medication reconciliations neon technician and/or nursing. Patients Allergies have been reviewed. Allergies Allergies Coded Allergies atorvastatin (Verified Allergy, Unknown, 10/11/18) tazobactam (Verified Allergy, Unknown, RASH, 02/10/18) Past [id number]-Iiayjn Hx Patient Social History Tobacco Use?: No Smoking Status: Never a Smoker Smokeless Tobacco Frequency: Never a User Use of E-Cig and/or Vaping dev: No Substance use?: No Alcohol Use?: No Pt feels they are or have been: No Immunizations Up To Date Date of Influenza Vaccine: Mar 20, 2018 First/Initial COVID19 Vaccinat: September 2020 Second COVID19 Vaccination Escobar: August 2020 Tetanus Booster (TDap): Less Than 5 Years Date of Pneumonia Vaccine: Jan 12, 2016 Seasonal Allergies Seasonal Allergies: No Current Status Advance Directives: No Communicates: Verbally Primary Language: Khmer Preferred Spoken Language: Khmer Is interpretation needed?: No Implanted or Applied Medical D: CPAP Past Medical History Surgeries: Cardiac, Coronary Stent, Nose Pneumonia, Sleep Apnea Currently Using CPAP: Yes Currently Using BIPAP: No Cardiomyopathy, Coronary Artery Disease, Hypertension, Irregular Heartbeat, Peripheral Vascular Neuropathy Sexually Transmitted Disease: No HIV/AIDS: No Renal Failure Chronic Diarrhea Arthritis, Chronic Back Pain Diabetes, Non-Insulin dep Anxiety, Depression Blood Disorders: No Adverse Reaction/Blood Tranf: No Family Medical History Arthritis G8 BROTHER (knee replacement) Cardiovascular disease 19 FATHER (chf) Deafness or hearing loss 19 MOTHER (vertigo) Diabetes mellitus 19 MOTHER Prostate cancer 19 FATHER No Pertinent Family Hx, Hypertension Review of Systems Constitutional: weakness EENTM: no symptoms reported Respiratory: no symptoms reported Cardiovascular: no symptoms reported Gastrointestinal: no symptoms reported Genitourinary: no symptoms reported Musculoskeletal: no symptoms reported Skin: no symptoms reported Psychiatric/Neurological: No Symptoms Reported Physical Exam Physical Exam Vital Signs Vital Signs - First Documented 04/27/21 04/27/21 04/27/21 11:50 13:56 15:48 Temp 36.2 Pulse 61 Resp 17 B/P (MAP) 160/78 Pulse Ox 91 O2 Delivery Room Air O2 Flow Rate 2.00 FiO2 21 Capillary Refill : Less Than 3 Seconds Height, Weight, BMI Height: 5'10.00" Weight: 288lbs. 0.0oz. 130.995160in; 47.10 BMI Method:Stated General Appearance: No Apparent Distress, Chronically ill, Obese HEENT: PERRL/EOMI, Pharynx Normal Neck: Normal Inspection, Supple Respiratory: Lungs Clear, Normal Breath Sounds, No Respiratory Distress Cardiovascular: Regular Rate, Rhythm, No Murmur Gastrointestinal: Normal Bowel Sounds, Soft, Distended, Other (pitting abdominal wall edema) Extremity: Normal Inspection, Non Tender, Pedal Edema, Swelling Neurologic/Psychiatric: Alert, Oriented x3, Depressed Affect Skin: Normal Color, Warm/Dry Results Results/Procedures Labs Laboratory Tests 04/27/21 11:57 Patient resulted labs reviewed. Imaging: Reviewed Imaging Report Assessment/Plan Admission Diagnosis Acute kidney injury superimposed on chronic kidney disease Admission Status: Inpatient Order (span 2 midnights) Reason for Inpatient Admission: IV diuresis Assessment and Plan Acute kidney injury superimposed on chronic kidney disease CHF exacerbation Fluid overload Acute respiratory failure with hypoxia Chest xray consistent with pulmonary edema Echo ordered Started on IV Lasix Cardiology consulted Monitor intake and output closely Monitor renal function T2DM Sliding scale insulin HTN HLD Morbid obesity Continue home meds Diagnosis/Problems Diagnosis/Problems (1) Acute kidney injury superimposed on chronic kidney disease Status: Acute (2) CHF exacerbation Status: Acute (3) Pulmonary edema Status: Acute (4) Fluid overload Status: Acute (5) HTN (hypertension) Status: Chronic (6) HLD (hyperlipidemia) Status: Chronic (7) T2DM (type 2 diabetes mellitus) Status: Chronic (8) Morbid obesity Status: Chronic CHARLIE SHEEHAN MD Apr 27, 2021 20:28
[2021-04-27] MEDS ORDERED: NON-FORMULARY MEDICATION 1 EA EA (Hydralazine HCl 50 MG) PO SCH (21:00)
[2021-04-28 02:13] VITALS: BP 157/86
[2021-04-28 04:41] VITALS: BP 157/81
[2021-04-28 05:11] LABS: BASOPHILS % (AUTO) 0 % (0-10); EOSINOPHILS # (AUTO) 0.3 10^3/uL (0.0-0.3); EOSINOPHILS % (AUTO) 3 % (0-10); HEMATOCRIT 39 % (40-54); HEMOGLOBIN 11.4 g/dL (13.3-17.7); LYMPHOCYTES # (AUTO) 0.5 10^3/uL (1.0-4.0); LYMPHOCYTES % (AUTO) 6 % (12-44); MEAN CORPUSCULAR HEMOGLOBIN 24 pg (25-34); MEAN CORPUSCULAR HGB CONC 29 g/dL (32-36); MEAN CORPUSCULAR VOLUME 84 fL (80-99); MEAN PLATELET VOLUME 10.2 fL (9.0-12.2); MONOCYTES # (AUTO) 0.7 10^3/uL (0.0-1.0); MONOCYTES % (AUTO) 8 % (0-12); NEUTROPHILS # (AUTO) 6.4 10^3/uL (1.8-7.8); NEUTROPHILS % (AUTO) 82 % (42-75); PLATELET COUNT 161 10^3/uL (130-400); WHITE BLOOD COUNT 7.8 10^3/uL (4.3-11.0)
[2021-04-28 05:30] LABS: POTASSIUM 4.6 MMOL/L (3.6-5.0)
[2021-04-28 05:31] LABS: CALCIUM 8.1 MG/DL (8.5-10.1)
[2021-04-28 05:33] LABS: TRIGLYCERIDES 89 MG/DL (<150); VLDL CHOLESTEROL 18 MG/DL (5-40)
[2021-04-28 05:35] LABS: CREATININE SERUM 3.53 MG/DL (0.60-1.30); PHOSPHORUS 5.9 MG/DL (2.3-4.7)
[2021-04-28 05:38] LABS: CHOLESTEROL 88 MG/DL (< 200); HDL CHOLESTEROL 24 MG/DL (40-60)
[2021-04-28] MEDS: inSUlin ASPART (NovoLOG) 1 UNIT/0.01 ML (CHARGE PER UNIT) SC SCH ×4 (05:42→21:39)
[2021-04-28] MEDS ORDERED: FUROSEMIDE 40 MG/4 ML INJ (LASIX) IVP ONE ×2 (06:30→08:00)
[2021-04-28 07:53] VITALS: BP 167/82
--- NOTE | 2021-04-28 09:06 | Cardiology Progress Note ---
Subjective Date Seen by Provider: Apr 28, 2021 Time Seen by Provider: 09:04 Subjective/Events-last exam Patient is laying down in bed, feeling slightly better. Responding to Lasix 80 mg yesterday. I gave him another dose of 80 mg today. No chest pain was reported. Swelling is slightly better Review of Systems General: No Chills, No Night Sweats; Fatigue; No Malaise, No Appetite, No Other HEENT: No Head Aches, No Visual Changes, No Eye Pain, No Ear Pain, No Dys phasia, No Sinus Congestion, No Post Nasal Drip, No Sore Throat, No Other Pulmonary: Dyspnea; No Cough, No Pleuritic Chest Pain, No Other Cardiovascular: Edema; No: Chest Pain, Palpitations, Orthopnea, Paroxysmal Noc. Dyspnea, Lt Headedness, Other Objective-Cardiology Exam Last Set of Vital Signs Vital Signs 04/27/21 04/28/21 04/28/21 04/28/21 15:48 04:41 06:40 07:53 Temp 36.9 Pulse 67 Resp 20 B/P (MAP) 167/82 (110) Pulse Ox 92 O2 Delivery NIV CPAP O2 Flow Rate 4.00 FiO2 21 I&O Intake and Output 04/28/21 00:00 Intake Total 780 ml Output Total 2150 ml Balance -1370 ml Intake Oral 780 ml Output Urine Total 2150 ml Daily Weight Change No General: Alert, Oriented X3, Cooperative HEENT: Atraumatic, PERRLA Neck: Supple, No JVD, No Thyromegaly Lungs: Clear to Auscultation, Normal Air Movement Heart: Regular Rate, Normal S1, Normal S2, No Murmurs Abdomen: Normal Bowel Sounds, Soft, No Tenderness, No Hepatosplenomegaly, No Masses, Other (Abdominal distention) Extremities: No Clubbing, No Cyanosis, Normal Pulses, No Tenderness/Swelling, Other (Peripheral edema) Skin: No Rashes, No Breakdown, No Significant Lesion Neuro: Normal Gait, Normal Speech, Strength at 5/5 X4 Ext, Normal Tone, Sensation Intact Psych/Mental Status: Mental Status NL, Mood NL Results Lab Laboratory Tests 04/27/21 11:57 04/28/21 04:45 A/P-Cardiology Admission Diagnosis Anasarca Chronic kidney disease Coronary artery disease Hypertension Assessment/Plan Fluid overload with anasarca, responded to Lasix 80 mg IV, I gave him another dose of 80 mg IV today. 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 Patient had progressive worsening of his renal function, has not been taking diuretics and still having significant deterioration in renal function. May require hemodialysis, defer the management to the medical team Generalized fatigue and shortness of breath, loss of energy. Progression from his baseline. Electrolyte imbalance secondary to renal function. Continue to monitor and replace Status post neck surgery, spinal stenosis, complicated by pneumonia and bacteremia and respiratory failure. Mild elevation of troponin, no active chest pain. No acute EKG changes. Probably type II myocardial infarction secondary to worsening renal function and small vessel coronary artery disease Coronary artery disease Status post stenting to the mid LAD using 3.018 mm Alpine stent expanded to 3.25 done in June 2017. Cardiac catheterization done in October 2018 showing patent stent in the mid LAD with moderate disease at the proximal and distal portion of the artery, had BMW wire placed across the LAD that straightened the LAD and the area looked better, at 60-70 percent proximal first obtuse marginal disease that did not change compared to the study of 2018, 50 percent distal right coronary artery. Conservative management is recommended no intervention is needed. Carotid artery stenosis-mild nonobstructive disease per carotid duplex done November 2018, continue to monitor. Diabetes mellitus, managed by Dr. Younger. Diabetic neuropathy, has been followed by primary care physician Hypertension, monitor blood pressure. Restart home medication Hyperlipidemia, intolerant to Lipitor with severe diarrhea, continue to monitor lipids History of erectile dysfunction, most likely secondary to peripheral neuropathy. Lower extremity pain, likely secondary to neuropathy, patient underwent peripheral angiogram done February 09, 2016 revealing mild to moderate disease in the anterior tibial of the left lower extremity and posterior tibial at 60-70 percent. Anterior tibial with good flow down to the ankle on the left lower extremity, otherwise mild disease in the right lower extremity and abdominal aorta. AILYN is normal Depression, Anxiety, lost his 17 years old son who drowned in summer 2018 Patient has a living will, Do Not Resuscitate KAREN YANG MD Apr 28, 2021 09:06
[2021-04-28] MEDS: SODIUM BICARBONATE 650 MG TABLET (NON-FORMULARY) PO SCH ×3 (09:07→21:39)
[2021-04-28] MEDS: GABAPENTIN 600 MG (NEURONTIN) TAB PO SCH ×2 (09:07→21:39)
[2021-04-28] MEDS: ASPIRIN E.C. 81 MG (ECOTRIN) TAB PO SCH (09:07)
[2021-04-28] MEDS: meTOprolol TARTRATE 50 MG (LOPRESSOR) TAB PO SCH ×2 (09:07→21:39)
[2021-04-28] MEDS: CALCIUM ACETATE 667 MG CAP (PHOSLO) PO SCH ×3 (09:07→17:16)
[2021-04-28] MEDS: hydrALAZINE (APRESOLINE) 25 MG TAB PO SCH ×3 (09:07→21:39)
[2021-04-28] MEDS: amLODIPine 5 MG (NORVASC) TAB PO SCH (09:08)
--- NOTE | 2021-04-28 09:11 | Physician Query Clarification ---
PQ-CHF Specificity Admission Date: Apr 27, 2021 at 12:47 Discharge Date: Dr. Perez, The medical record reflects the following clinical scenario: History/Risk Factors: anasarca, HTN w/ CHF acute exacerbation, FRANCISCA, Acute hypoxic respiratory failure, CKD, DM, MOB Clinical Findings: anasarca w/periorbital edema, BNP 965.1, EF 42 % 10/09/18 Treatment: IVP Lasix 80 mg Question: Can you further specify the acuity &/or type of CHF per the clinical indicators above? Please document a response in the Progress Notes or Discharge Summary. 1. Acuity: Acute, Chronic or Acute on Chronic 2. Type: Systolic, Diastolic or Systolic & Diastolic 3. Unspecified: CHF cannot be further specified regarding type or acuity 4. Other, with explanation of clinical findings 5. Clinically undetermined, no explanation for clinical findings PHYSICIAN RESPONSE Acuity: Acute on Chronic Type: Systolic & Diastolic Please remember a lack of response to the above will prompt a phone page by [facility] staff. In responding to this query, please exercise your independent professional judgment. The purpose of this communication is to more accurately reflect the complexity of your patients condition. The fact that a question is asked does not imply that any particular answer is desired or expected. Thank you for your timely response to this clarification. Requestors name: Kay THIS PHYSICIAN QUERY FORM IS A PERMANENT PART OF THE MEDICAL RECORD KAY WITT Apr 28, 2021 09:11 KAREN PEREZ MD Apr 28, 2021 10:17
[2021-04-28] MEDS ORDERED: ACETAMINOPHEN 325 MG TABLET ONE (09:19)
[2021-04-28] MEDS: ACETAMINOPHEN 325 MG TABLET PO PRN (09:21)
--- NOTE | 2021-04-28 10:18 | Progress Note - Hospitalist ---
Subjective HPI/CC On Admission Date Seen by Provider: Apr 28, 2021 Time Seen by Provider: 09:10 Luisito Sims is a 56 year old male with PMH HTN, T2DM, HLD, CAD, CHF, who presented with swelling. He reports leg swelling and abdominal swelling. He feels distended. He stopped taking his diuretics a few weeks ago. He denies any fevers or chills. He denies chest pain. He denies shortness of breath and cough. He denies nausea and vomiting. Subjective/Events-last exam He is feeling less swollen in his abdomen. He is having pain with his jarrett. He was able to have breakfast. He had a bowel movement. Objective Exam Vital Signs Vital Signs Date Time Temp Pulse Resp B/P (MAP) Pulse Ox O2 Delivery O2 Flow Rate FiO2 04/28/21 07:53 36.9 67 20 167/82 (110) 92 04/28/21 06:40 NIV CPAP 04/28/21 04:41 4.00 04/27/21 15:48 21 Capillary Refill : Less Than 3 Seconds General Appearance: No Apparent Distress, Chronically ill, Obese Respiratory: No Respiratory Distress, Decreased Breath Sounds Cardiovascular: Regular Rate, Rhythm, No Murmur Gastrointestinal: Normal Bowel Sounds, Non Tender, Soft, Other (abdominal wall edema) Extremity: Non Tender, Pedal Edema, Swelling Neurologic/Psychiatric: Alert, Oriented x3, No Motor/Sensory Deficits Skin: Normal Color, Warm/Dry Results/Procedures Lab Laboratory Tests 04/27/21 11:57 04/28/21 04:45 Patient resulted labs reviewed. Imaging: Reviewed Imaging Report Assessment/Plan Assessment and Plan Assess & Plan/Chief Complaint Acute kidney injury superimposed on chronic kidney disease CHF exacerbation Fluid overload Acute respiratory failure with hypoxia Cardiology following Echo ordered Continue Lasix Renal function slightly improved T2DM Sliding scale insulin HTN HLD Morbid obesity Continue home meds DVT prophylaxis: Heparin Diagnosis/Problems Diagnosis/Problems (1) Acute kidney injury superimposed on chronic kidney disease Status: Acute (2) CHF exacerbation Status: Acute (3) Pulmonary edema Status: Acute (4) Fluid overload Status: Acute (5) HTN (hypertension) Status: Chronic (6) HLD (hyperlipidemia) Status: Chronic (7) T2DM (type 2 diabetes mellitus) Status: Chronic (8) Morbid obesity Status: Chronic CHARLIE SHEEHAN MD Apr 28, 2021 10:18
[2021-04-28 11:33] VITALS: BP 132/63
[2021-04-28 15:37] VITALS: BP 155/73
[2021-04-28] MEDS: FUROSEMIDE 40 MG/4 ML INJ (LASIX) IVP SCH (17:16)
[2021-04-28 20:53] VITALS: BP 156/71
[2021-04-28] MEDS: ROSUVASTATIN 5 MG (CRESTOR) TABLET PO SCH (21:39)
[2021-04-29] VITALS (7 sets, daily range): BP systolic 116–170; BP diastolic 65–80
[2021-04-29] MEDS: ACETAMINOPHEN 325 MG TABLET PO PRN (02:24)
[2021-04-29] MEDS: inSUlin ASPART (NovoLOG) 1 UNIT/0.01 ML (CHARGE PER UNIT) SC SCH ×4 (06:03→20:39)
[2021-04-29] MEDS: CALCIUM ACETATE 667 MG CAP (PHOSLO) PO SCH ×3 (06:28→17:37)
[2021-04-29] MEDS: FUROSEMIDE 40 MG/4 ML INJ (LASIX) IVP SCH ×2 (06:28→17:37)
[2021-04-29] MEDS: ASPIRIN E.C. 81 MG (ECOTRIN) TAB PO SCH (08:11)
[2021-04-29] MEDS: SODIUM BICARBONATE 650 MG TABLET (NON-FORMULARY) PO SCH (08:12)
[2021-04-29] MEDS: amLODIPine 5 MG (NORVASC) TAB PO SCH (08:12)
[2021-04-29] MEDS: meTOprolol TARTRATE 50 MG (LOPRESSOR) TAB PO SCH ×2 (08:12→20:32)
[2021-04-29] MEDS: hydrALAZINE (APRESOLINE) 25 MG TAB PO SCH ×3 (08:12→20:33)
[2021-04-29] MEDS: GABAPENTIN 600 MG (NEURONTIN) TAB PO SCH ×2 (08:12→20:32)
[2021-04-29 08:56] LABS: BASOPHILS % (AUTO) 0 % (0-10); EOSINOPHILS # (AUTO) 0.3 10^3/uL (0.0-0.3); EOSINOPHILS % (AUTO) 4 % (0-10); HEMATOCRIT 41 % (40-54); HEMOGLOBIN 12.1 g/dL (13.3-17.7); LYMPHOCYTES # (AUTO) 0.5 10^3/uL (1.0-4.0); LYMPHOCYTES % (AUTO) 7 % (12-44); MEAN CORPUSCULAR HEMOGLOBIN 25 pg (25-34); MEAN CORPUSCULAR HGB CONC 30 g/dL (32-36); MEAN CORPUSCULAR VOLUME 84 fL (80-99); MEAN PLATELET VOLUME 10.2 fL (9.0-12.2); MONOCYTES # (AUTO) 0.7 10^3/uL (0.0-1.0); MONOCYTES % (AUTO) 9 % (0-12); NEUTROPHILS # (AUTO) 5.9 10^3/uL (1.8-7.8); NEUTROPHILS % (AUTO) 79 % (42-75); PLATELET COUNT 175 10^3/uL (130-400); WHITE BLOOD COUNT 7.5 10^3/uL (4.3-11.0)
[2021-04-29 09:05] LABS: POTASSIUM 4.1 MMOL/L (3.6-5.0)
[2021-04-29 09:06] LABS: CALCIUM 8.5 MG/DL (8.5-10.1)
[2021-04-29 09:10] LABS: CREATININE SERUM 3.07 MG/DL (0.60-1.30)
[2021-04-29 09:13] LABS: MAGNESIUM 2.5 MG/DL (1.6-2.4)
--- NOTE | 2021-04-29 09:34 | Cardiology Progress Note ---
Subjective Date Seen by Provider: Apr 29, 2021 Time Seen by Provider: 08:30 Subjective/Events-last exam Patient is sitting up in bed, denies any chest pain. Reports peripheral edema improving. Review of Systems General: No Chills, No Night Sweats, No Fatigue, No Malaise, No Appetite, No Ot her HEENT: No Head Aches, No Visual Changes, No Eye Pain, No Ear Pain, No Dysp hasia, No Sinus Congestion, No Post Nasal Drip, No Sore Throat, No Other Pulmonary: Dyspnea; No Cough, No Pleuritic Chest Pain, No Other Cardiovascular: Edema; No: Chest Pain, Palpitations, Orthopnea, Paroxysmal Noc. Dyspnea, Lt Headedness, Other Objective-Cardiology Exam Last Set of Vital Signs Vital Signs 04/27/21 04/29/21 04/29/21 15:48 12:00 12:24 Temp 37.0 Pulse 62 Resp 17 B/P (MAP) 151/67 (95) Pulse Ox 96 O2 Delivery Nasal Cannula O2 Flow Rate 2.00 FiO2 21 I&O Intake and Output 04/29/21 00:00 Intake Total 2009 ml Output Total 6675 ml Balance -4665 ml Intake Oral 2010 ml Output Urine Total 6675 ml General: Alert, Oriented X3, Cooperative HEENT: Atraumatic, PERRLA Neck: Supple, No JVD, No Thyromegaly Lungs: Clear to Auscultation, Normal Air Movement Heart: Regular Rate, Normal S1, Normal S2, No Murmurs Abdomen: Normal Bowel Sounds, Soft, No Tenderness, No Hepatosplenomegaly, No Masses, Other (Abdominal distention) Extremities: No Clubbing, No Cyanosis, Normal Pulses, No Tenderness/Swelling, Other (Peripheral edema) Skin: No Rashes, No Breakdown, No Significant Lesion Neuro: Normal Gait, Normal Speech, Strength at 5/5 X4 Ext, Normal Tone, Sensation Intact Psych/Mental Status: Mental Status NL, Mood NL Results Lab Laboratory Tests 04/29/21 08:32 A/P-Cardiology Admission Diagnosis Anasarca Chronic kidney disease Coronary artery disease Hypertension Assessment/Plan Fluid overload with anasarca, maintained on aggressive diuresis, continue to monitor renal function closely, managed by hospitalist Acute on chronic kidney disease, has baseline chronic renal insufficiency and 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 Patient had progressive worsening of his renal function, has not been taking diuretics and still having significant deterioration in renal function. May require hemodialysis, defer the management to the medical team Generalized fatigue and shortness of breath, loss of energy. Progression from his baseline. Electrolyte imbalance secondary to renal function. Continue to monitor and replace Status post neck surgery, spinal stenosis, complicated by pneumonia and bacteremia and respiratory failure. Mild elevation of troponin, no active chest pain. No acute EKG changes. Probably type II myocardial infarction secondary to worsening renal function and small vessel coronary artery disease Coronary artery disease Status post stenting to the mid LAD using 3.018 mm Alpine stent expanded to 3.25 done in June 2017. Cardiac catheterization done in October 2018 showing patent stent in the mid LAD with moderate disease at the proximal and distal portion of the artery, had BMW wire placed across the LAD that straightened the LAD and the area looked better, at 60-70 percent proximal first obtuse marginal disease that did not change compared to the study of 2018, 50 percent distal right coronary artery. Conservative management is recommended no intervention is needed. Carotid artery stenosis-mild nonobstructive disease per carotid duplex done November 2018, continue to monitor. Diabetes mellitus, managed by Dr. Younger. Diabetic neuropathy, has been followed by primary care physician Hypertension, monitor blood pressure. Hyperlipidemia, intolerant to Lipitor with severe diarrhea, continue to monitor lipids History of erectile dysfunction, most likely secondary to peripheral neuropathy. Lower extremity pain, likely secondary to neuropathy, patient underwent peripheral angiogram done February 09, 2016 revealing mild to moderate disease in the anterior tibial of the left lower extremity and posterior tibial at 60-70 percent. Anterior tibial with good flow down to the ankle on the left lower extremity, otherwise mild disease in the right lower extremity and abdominal aorta. AILYN is normal Depression, Anxiety, lost his 17 years old son who drowned in summer 2018, management per medical team. Patient has a living will, Do Not Resuscitate Supervisory-Addendum Brief Supervisory Addendum Participated in pt care: history, MDM, physical Personally performed: exam, history, MDM Care discussed with: ZIYAD Results interpretation: Verified all documentation Notes: Patient was seen and evaluated with Marleny, examination performed, management plan was discussed, agree with the current scribed note, I made few changes to the note using Italic font Patient was seen and evaluated at bedside, feeling better, has responded to aggressive diuresis and renal function improved slightly. I am concerned about the aggressive diuresis with possible deterioration of renal function. Continue to monitor renal function closely. MARLENY SOMERS Apr 29, 2021 09:34 KAREN YANG MD Apr 29, 2021 14:37
--- NOTE | 2021-04-29 11:15 | Progress Note - Hospitalist ---
Subjective HPI/CC On Admission Date Seen by Provider: Apr 29, 2021 Time Seen by Provider: 09:50 Luisito Sims is a 56 year old male with PMH HTN, T2DM, HLD, CAD, CHF, who presented with swelling. He reports leg swelling and abdominal swelling. He feels distended. He stopped taking his diuretics a few weeks ago. He denies any fevers or chills. He denies chest pain. He denies shortness of breath and cough. He denies nausea and vomiting. Subjective/Events-last exam He is feeling about the same today. The catheter is still hurting when he moves. He has no other complaints or concerns. Objective Exam Vital Signs Vital Signs Date Time Temp Pulse Resp B/P (MAP) Pulse Ox O2 Delivery O2 Flow Rate FiO2 04/29/21 08:41 36.1 61 14 170/80 (110) 94 Nasal Cannula 2.00 04/27/21 15:48 21 Capillary Refill : Less Than 3 Seconds General Appearance: No Apparent Distress, Chronically ill, Obese Respiratory: Lungs Clear, Normal Breath Sounds, No Respiratory Distress Cardiovascular: Regular Rate, Rhythm, No Murmur Gastrointestinal: Normal Bowel Sounds, Non Tender, Soft Extremity: Non Tender, Pedal Edema, Swelling Neurologic/Psychiatric: Alert, Oriented x3, Normal Mood/Affect Skin: Normal Color, Warm/Dry Results/Procedures Lab Laboratory Tests 04/29/21 08:32 Patient resulted labs reviewed. Imaging: Reviewed Imaging Report Assessment/Plan Assessment and Plan Assess & Plan/Chief Complaint Acute kidney injury superimposed on chronic kidney disease Acute on chronic HFpEF exacerbation Fluid overload Acute respiratory failure with hypoxia Cardiology following Echo showed grade II diastolic dysfunction Continue IV Lasix Renal function improving T2DM Sliding scale insulin HTN HLD Morbid obesity Continue home meds DVT prophylaxis: Heparin Diagnosis/Problems Diagnosis/Problems (1) Acute kidney injury superimposed on chronic kidney disease Status: Acute (2) CHF exacerbation Status: Acute (3) Pulmonary edema Status: Acute (4) Fluid overload Status: Acute (5) HTN (hypertension) Status: Chronic (6) HLD (hyperlipidemia) Status: Chronic (7) T2DM (type 2 diabetes mellitus) Status: Chronic (8) Morbid obesity Status: Chronic CHARLIE SHEEHAN MD Apr 29, 2021 11:15
[2021-04-29] MEDS ORDERED: MECL-149 PO (12:42)
--- NOTE | 2021-04-29 12:57 | Physical Therapy Evaluation ---
PT Evaluation-General Medical Diagnosis Admission Date Apr 27, 2021 at 12:47 Medical Diagnosis: leg and abdominal swelling Onset Date: Apr 27, 2021 Therapy Diagnosis Therapy Diagnosis: impaired mobility, strength, endurance Height/Weight Height (Feet): 5 Height (Inches): 10.00 Weight (Pounds): 288 Weight (Ounces): 0.0 Precautions Precautions/Isolations: Fall Prevention, Standard Precautions Referral Physician: Joel Reason for Referral: Evaluation/Treatment Medical History Pertinent Medical History: Arthritis, CAD, DM, Heart Failure, HTN, Neuropathy, PVD Additional Medical History Past Medical History Surgeries: Cardiac, Coronary Stent, Nose Pneumonia, Sleep Apnea Currently Using CPAP: Yes Currently Using BIPAP: No Cardiomyopathy, Coronary Artery Disease, Hypertension, Irregular Heartbeat, Peripheral Vascular Neuropathy Sexually Transmitted Disease: No HIV/AIDS: No Renal Failure Chronic Diarrhea Arthritis, Chronic Back Pain Diabetes, Non-Insulin dep Anxiety, Depression Reviewed History: Yes Social History Current Living Status: Alone Entry Into Home: Level Entry Prior Prior Level of Function SCALE: Activities may be completed with or without assistive devices. 0-Inlvwwzsxs-miehqnh completes the activity by him/herself with no assistance from a helper. 5-Set-up or Clean-up Assistance-helper sets up or cleans up; patient completes activity. [place] assists only prior to or following the activity. 4-Supervision or Touching Assistance-helper provides verbal cues and/or touching/steadying and/or contact guard assistance as patient completes activi ty. Assistance may be provided throughout the activity or intermittently. 3-Partial/Moderate Assistance-helper does LESS THAN HALF the effort. [place] lifts, holds or supports trunk or limbs, but provides less than half the effort. 2-Substantial/Maximal Assistance-helper does MORE THAN HALF the effort. [place] lifts or holds trunk or limbs and provides more than half the effort. 6-Lhbffoojc-mwqhan does ALL the effort. Patient does none of the effort to complete the activity. Or, the assistance of 2 or more helpers is required for the patient to complete the activity. If activity was not attempted, code reason: 7-Patient Refused. 9-Not Applicable-not attempted and the patient did not perform the activity before the current illness, exacerbation or injury. 10-Not Attempted due to Environmental Limitations-(lack of equipment, weather restraints, etc.). 88-Not Attempted due to Medical Conditions or Safety Concerns. Bed Mobility: 6 Transfers (B,C,W/C): 6 Gait: 6 Indoor Mobility (Ambulation): Independent Prior Devices Use: Walker PT Evaluation-Current Subjective Patient in bed pre tx, agrees to PT but declines any OOB activity due to catheter pain with movement. He does agree to activity in bed. Pt/Family Goals to be independent at home Objective Patient Orientation: Person, Place, Situation Attachments: Castillo Catheter ROM/Strength ROM Lower Extremities WNL Strength Lower Extremities LLE (hip flexion 3/5, knee flexion 4/5, knee extension 4/5, dorsiflexion 4/5), RLE (hip flexion 3/5, knee flexion 4/5, knee extension 4/5, dorsiflexion 4/5) Sensory Vision: Functional Hearing: Functional Sensation Right Lower Extremit: Impaired Sensation Left Lower Extremity: Impaired Treatment BLE supine exercises x20 (AP, QS, HS) Assessment/Needs Patient in bed post tx with nurse call,phone, tray, all needs met. Patient has impaired mobility, strength, endurance. Patient declines OOB activity due to catheter pain with movement. Rehab Potential: Fair PT Sales Representative [employer] Goals Snf Goals PT Sales Representative [employer] Goals Time Frame: May 06, 2021 Roll Left & Right (QC): 4 Sit to Lying (QC): 4 Lying-Sitting on Side/Bed(QC): 4 Sit to Stand (QC): 4 Chair/Arc-wx-Megol Xfer(QC): 4 Walk 10 feet (QC): 4 Walk 50ft with 2 Turns (QC): 4 PT Plan Problem List Problem List: Activity Tolerance, Functional Strength, Safety, Balance, Gait, Transfer, Bed Mobility, ROM Treatment/Plan Treatment Plan: Continue Plan of Care Treatment Plan: Bed Mobility, Education, Functional Activity Cody, Functional Strength, Gait, Safety, Therapeutic Exercise, Transfers Treatment Duration: May 06, 2021 Frequency: 6 times per week Estimated Hrs Per Day: .25 hour per day Patient and/or Family Agrees t: Yes Safety Risks/Education Patient Education: Correct Positioning, Safety Issues Teaching Recipient: Patient Teaching Methods: Demonstration, Discussion Response to Teaching: Reinforcement Needed Discharge Recommendations Plan Patient will perform bed mobility and transfer training, balance and endurance training, functional strengthening, gait training, and education, to improve functional mobility and independence at home. Therapy Discharge Recommendati: Scheduled Assistance, Home & Family, Post Acute PT Time/GCodes Time In: 1145 Time Out: 1155 Total Billed Treatment Time: 10 Total Billed Treatment 1 visit MARCELL GIVENS PT Apr 29, 2021 12:57
--- NOTE | 2021-04-29 14:10 | Occupational Therapy Eval ---
OT Evaluation-General/PLF Medical Diagnosis Admission Date Apr 27, 2021 at 12:47 Medical Diagnosis: leg and abdominal swelling Onset Date: Apr 27, 2021 Therapy Diagnosis Therapy Diagnosis: Impaired adls, balance, endurance, Height/Weight Height (Feet): 5 Height (Inches): 10.00 Weight (Pounds): 288 Weight (Ounces): 0.0 Precautions Precautions/Isolations: Fall Prevention, Standard Precautions Referral Physician: Joel Referral Reason: Evaluation/Treatment Medical History Pertinent Medical History: Arthritis, CAD, DM, Heart Failure, HTN, Neuropathy, PVD Current History Pt presents to hospital with LE and abdominal swelling. Per chart, he stopped taking his diuretics. Per patient, he ran out of medication and just didn't want to order more. It is noted that pt is in end stage kidney disease. He reports living alone in a single story home. He was indep with adls and iadls however reports that since the swelling he has been unable to get his shoes and socks on. 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 He has recently been using a walker but normally uses a cane. Social History Home: Single Level Current Living Status: Alone Entry Into Home: Level Entry ADL-Prior Level of Function SCALE: Activities may be completed with or without assistive devices. 3-Zqrflwxdei-qbshxsx completes the activity by him/herself with no assistance from a helper. 5-Set-up or Clean-up Assistance-helper sets up or cleans up; patient completes activity. [place] assists only prior to or following the activity. 4-Supervision or Touching Assistance-helper provides verbal cues and/or touching/steadying and/or contact guard assistance as patient completes activity. Assistance may be provided throughout the activity or intermittently. 3-Partial/Moderate Assistance-helper does LESS THAN HALF the effort. [place] lifts, holds or supports trunk or limbs, but provides less than half the effort. 2-Substantial/Maximal Assistance-helper does MORE THAN HALF the effort. [place] lifts or holds trunk or limbs and provides more than half the effort. 9-Fbdjmpcpa-yvhuup does ALL the effort. Patient does none of the effort to complete the activity. Or, the assistance of 2 or more helpers is required for the patient to complete the activity. If activity was not attempted, code reason: 7-Patient Refused. 9-Not Applicable-not attempted and the patient did not perform the activity before the current illness, exacerbation or injury. 10-Not Attempted due to Environmental Limitations-(lack of equipment, weather restraints, etc.). 88-Not Attempted due to Medical Conditions or Safety Concerns. Self Care: Independent Functional Cognition: Independent DME/Equipment: Bath Chair, Shower Drive Self: Yes OT Current Status Subjective Pt reports pain in penis secondary to catheter. RN is aware. Appearance Pt left supine in bed, all needs within reach. Mental Status/Objective Patient Orientation: Person, Place, Situation Attachments: Castlilo Catheter, IV Current Glasses/Contacts: Yes Hand Dominance: Right Upper Extremity ROM WFL Upper Extremity Strength 4/5 grossly ADL-Treatment Eating (QC): 6 Oral Hygiene (QC): 5 Pt eating lunch at OT arrival. No difficulties noted with feeding self. He refuses any OOB/EOB activities secondary to pain from catheter. He also declines any bed mobility. Education provided, pt still declining. Education OT Patient Education: Purpose of tx/functional activities, Rehab process Teaching Recipient: Patient Teaching Methods: Discussion Response to Teaching: Verbalize Understanding, Reinforcement Needed OT Drafter Landscape Goals Drafter Landscape Goals Time Frame: May 22, 2021 Toileting Hygiene (QC): 4 Upper Body Dressing (QC): 4 Lower Body Dressing (QC): 4 On/Off Footwear (QC): 4 1=Demonstrate adherence to instructed precautions during ADL tasks. 2=Patient will verbalize/demonstrate understanding of assistive devices/modifications for ADL. 3=Patient will improve strength/tolerance for activity to enable patient to perform ADL's. OT Education/Plan Problem List/Assessment Assessment: Decreased Activ Tolerance, Edema, Impaired Bed Mobility, Impaired Funct Balance, Impaired I ADL's, Impaired Self-Care Skills Discharge Recommendations Plan/Recommendations: Continue POC Comment ongoing assessment. Treatment Plan/Plan of Care Treatment,Training & Education: Yes Patient would benefit from OT for education, treatment and training to promote independence in ADL's, mobility, safety and/or upper extremity function for ADL's. Plan of Care: ADL Retraining, Functional Mobility, UE Funct Exercise/Act Treatment Duration: May 22, 2021 Frequency: 5 times per week Estimated Hrs Per Day: .25 hour per day Rehab Potential: Guarded Time/GCodes Start Time: 13:25 Stop Time: 13:40 Total Time Billed (hr/min): 15 Billed Treatment Time 1 Elodia Benton OT Apr 29, 2021 14:10
[2021-04-29] MEDS: ONDANSETRON 4 MG/2 ML (SDV) Z0FRAN IVP PRN ×2 (15:49→20:38)
[2021-04-29] MEDS: ROSUVASTATIN 5 MG (CRESTOR) TABLET PO SCH (20:32)
[2021-04-30] VITALS (7 sets, daily range): BP systolic 136–176; BP diastolic 65–84
[2021-04-30] MEDS: inSUlin ASPART (NovoLOG) 1 UNIT/0.01 ML (CHARGE PER UNIT) SC SCH ×4 (05:51→21:16)
[2021-04-30] MEDS: FUROSEMIDE 40 MG/4 ML INJ (LASIX) IVP SCH ×2 (06:20→16:37)
[2021-04-30 06:45] LABS: CALCIUM 8.6 MG/DL (8.5-10.1); CREATININE SERUM 3.09 MG/DL (0.60-1.30); POTASSIUM 4.5 MMOL/L (3.6-5.0)
--- NOTE | 2021-04-30 08:35 | Cardiology Progress Note ---
Subjective Date Seen by Provider: Apr 30, 2021 Time Seen by Provider: 08:33 Subjective/Events-last exam Patient is sitting up in bed, denies any chest pain. Review of Systems General: No Chills, No Night Sweats; Fatigue; No Malaise, No Appetite, No Other HEENT: No Head Aches, No Visual Changes, No Eye Pain, No Ear Pain, No Dysphasia, No Sinus Congestion, No Post Nasal Drip, No Sore Throat, No Other Pulmonary: Dyspnea; No Cough, No Pleuritic Chest Pain, No Other Cardiovascular: Edema; No: Chest Pain, Palpitations, Orthopnea, Paroxysmal Noc. Dyspnea, Lt Headedness, Other Objective-Cardiology Exam Last Set of Vital Signs Vital Signs 04/27/21 04/30/21 15:48 07:54 Temp 35.5 Pulse 66 Resp 20 B/P (MAP) 176/84 (114) Pulse Ox 95 O2 Delivery Nasal Cannula O2 Flow Rate 2.00 FiO2 21 I&O Intake and Output 04/30/21 00:00 Intake Total 2640 ml Output Total 5800 ml Balance -3160 ml Intake Oral 2640 ml Output Urine Total 5800 ml General: Alert, Oriented X3, Cooperative HEENT: Atraumatic, PERRLA Neck: Supple, No JVD, No Thyromegaly Lungs: Clear to Auscultation, Normal Air Movement Heart: Regular Rate, Normal S1, Normal S2, No Murmurs Abdomen: Normal Bowel Sounds, Soft, No Tenderness, No Hepatosplenomegaly, No Masses, Other (Abdominal distention) Extremities: No Clubbing, No Cyanosis, Normal Pulses, No Tenderness/Swelling, Other (Peripheral edema) Skin: No Rashes, No Breakdown, No Significant Lesion Neuro: Normal Gait, Normal Speech, Strength at 5/5 X4 Ext, Normal Tone, Sensation Intact Psych/Mental Status: Mental Status NL, Mood NL Results Lab Laboratory Tests 04/30/21 03:33 A/P-Cardiology Admission Diagnosis Anasarca Chronic kidney disease Coronary artery disease Hypertension Assessment/Plan Fluid overload with anasarca, maintained on aggressive diuresis, continue to monitor renal function closely, managed by hospitalist Acute on chronic kidney disease, has baseline chronic renal insufficiency and he has stopped seeing his coroner. Patient had progressive worsening of his renal function, has not been taking diuretics and still having significant deterioration in renal function. May require hemodialysis, defer the management to the medical team Generalized fatigue and shortness of breath, loss of energy. Progression from his baseline. Electrolyte imbalance secondary to renal function. Continue to monitor and replace Status post neck surgery, spinal stenosis, complicated by pneumonia and bacteremia and respiratory failure. Mild elevation of troponin, no active chest pain. No acute EKG changes. Probably type II myocardial infarction secondary to worsening renal function and small vessel coronary artery disease Coronary artery disease Status post stenting to the mid LAD using 3.018 mm Alpine stent expanded to 3.25 done in June 2017. Cardiac catheterization done in October 2018 showing patent stent in the mid LAD with moderate disease at the proximal and distal portion of the artery, had BMW wire placed across the LAD that straightened the LAD and the area looked better, at 60-70 percent proximal first obtuse marginal disease that did not change compared to the study of 2018, 50 percent distal right coronary artery. Conservative management is recommended no intervention is needed. Carotid artery stenosis-mild nonobstructive disease per carotid duplex done November 2018, continue to monitor. Diabetes mellitus, managed by Dr. Younger. Diabetic neuropathy, has been followed by primary care physician Hypertension, monitor blood pressure. Hyperlipidemia, intolerant to Lipitor with severe diarrhea, continue to monitor lipids History of erectile dysfunction, most likely secondary to peripheral neuropathy. Lower extremity pain, likely secondary to neuropathy, patient underwent peripheral angiogram done February 09, 2016 revealing mild to moderate disease in the anterior tibial of the left lower extremity and posterior tibial at 60-70 percent. Anterior tibial with good flow down to the ankle on the left lower extremity, otherwise mild disease in the right lower extremity and abdominal aorta. AILYN is normal Depression, Anxiety, lost his 17 years old son who drowned in summer 2018, management per medical team. Patient has a living will, Do Not Resuscitate Supervisory-Addendum Brief Supervisory Addendum Participated in pt care: history, MDM, physical Personally performed: exam, history, MDM Care discussed with: ZIYAD Results interpretation: Verified all documentation Notes: Patient was seen and evaluated with Marleny, examination performed, management plan was discussed, agree with the current scribed note, I made few changes to the note using Italic font Patient was seen at bedside laying down comfortably, feeling better Still having significant peripheral edema Responding well to diuretics Continue diuresis and monitor. MARLENY SOMERS Apr 30, 2021 08:35 KAREN YANG MD Apr 30, 2021 09:35
[2021-04-30] MEDS: CALCIUM ACETATE 667 MG CAP (PHOSLO) PO SCH ×3 (08:59→19:09)
[2021-04-30] MEDS: ASPIRIN E.C. 81 MG (ECOTRIN) TAB PO SCH (08:59)
[2021-04-30] MEDS: GABAPENTIN 600 MG (NEURONTIN) TAB PO SCH ×2 (08:59→21:18)
[2021-04-30] MEDS: amLODIPine 5 MG (NORVASC) TAB PO SCH (09:00)
[2021-04-30] MEDS: meTOprolol TARTRATE 50 MG (LOPRESSOR) TAB PO SCH ×2 (09:00→21:18)
[2021-04-30] MEDS: hydrALAZINE (APRESOLINE) 25 MG TAB PO SCH ×3 (09:00→21:18)
--- NOTE | 2021-04-30 09:47 | Physical Therapy Daily Note ---
PT Daily Note-Current Subjective Patient agrees to PT. Agrees to OOB activity. Mental Status Patient Orientation: Normal For Age Transfers SCALE: Activities may be completed with or without assistive devices. 5-Ylsexvlhsp-bzxcbga completes the activity by him/herself with no assistance from a helper. 5-Set-up or Clean-up Assistance-helper sets up or cleans up; patient completes activity. [place] assists only prior to or following the activity. 4-Supervision or Touching Assistance-helper provides verbal cues and/or touching/steadying and/or contact guard assistance as patient completes activity. Assistance may be provided throughout the activity or intermittently. 3-Partial/Moderate Assistance-helper does LESS THAN HALF the effort. [place] lifts, holds or supports trunk or limbs, but provides less than half the effort. 2-Substantial/Maximal Assistance-helper does MORE THAN HALF the effort. [place] lifts or holds trunk or limbs and provides more than half the effort. 3-Dvqztjryn-cntsct does ALL the effort. Patient does none of the effort to complete the activity. Or, the assistance of 2 or more helpers is required for the patient to complete the activity. If activity was not attempted, code reason: 7-Patient Refused. 9-Not Applicable-not attempted and the patient did not perform the activity before the current illness, exacerbation or injury. 10-Not Attempted due to Environmental Limitations-(lack of equipment, weather restraints, etc.). 88-Not Attempted due to Medical Conditions or Safety Concerns. Lying to Sitting/Side of Bed(Q: 6 Sit to Stand (QC): 4 Chair/Ltz-rj-Jmgro Xfer(QC): 4 Gait Training Distance: 30' Walk 10 feet (QC): 4 (SBA) Exercises Seated Therapy Exercises: Ankle pumps, Long arc quads Seated Reps: 15 Assessment Patient requires time to complete all functional tasks. Patient tolerates minimal activity and is up in recliner with needs met. PT Cutter In Goals Cutter In Goals PT Cutter In Goals Time Frame: May 06, 2021 Roll Left & Right (QC): 4 Sit to Lying (QC): 4 Lying-Sitting on Side/Bed(QC): 4 Sit to Stand (QC): 4 Chair/Qsi-hc-Ucxbv Xfer(QC): 4 Walk 10 feet (QC): 4 Walk 50ft with 2 Turns (QC): 4 PT Plan Treatment/Plan Treatment Plan: Continue Plan of Care Treatment Plan: Bed Mobility, Education, Functional Activity [place], Functional Strength, Gait, Safety, Therapeutic Exercise, Transfers Treatment Duration: May 06, 2021 Frequency: 6 times per week Estimated Hrs Per Day: .25 hour per day Patient and/or Family Agrees t: Yes Time/GCodes Time In: 842 Time Out: 900 Total Billed Treatment Time: 18 Total Billed Treatment 1 visit FA 18 min MARK RAMIREZ PT Apr 30, 2021 09:47
--- NOTE | 2021-04-30 11:20 | Progress Note - Hospitalist ---
Subjective HPI/CC On Admission Date Seen by Provider: Apr 30, 2021 Time Seen by Provider: 09:30 Luisito Sims is a 56 year old male with PMH HTN, T2DM, HLD, CAD, CHF, who presented with swelling. He reports leg swelling and abdominal swelling. He feels distended. He stopped taking his diuretics a few weeks ago. He denies any fevers or chills. He denies chest pain. He denies shortness of breath and cough. He denies nausea and vomiting. Subjective/Events-last exam He is feeling about the same. He had his jarrett taken out. He has no complaints or concerns. Objective Exam Vital Signs Vital Signs Date Time Temp Pulse Resp B/P (MAP) Pulse Ox O2 Delivery O2 Flow Rate FiO2 04/30/21 07:54 35.5 66 20 176/84 (114) 95 Nasal Cannula 2.00 04/27/21 15:48 21 Capillary Refill : Less Than 3 Seconds General Appearance: No Apparent Distress, Obese Respiratory: Lungs Clear, Normal Breath Sounds, No Respiratory Distress Cardiovascular: Regular Rate, Rhythm, No Murmur Gastrointestinal: Normal Bowel Sounds, Non Tender, Soft Extremity: Non Tender, Pedal Edema, Swelling Neurologic/Psychiatric: Alert, Oriented x3, Normal Mood/Affect, Motor Weakness Skin: Normal Color, Warm/Dry Results/Procedures Lab Laboratory Tests 04/30/21 03:33 Patient resulted labs reviewed. Imaging: Reviewed Imaging Report Assessment/Plan Assessment and Plan Assess & Plan/Chief Complaint Acute kidney injury superimposed on chronic kidney disease Acute on chronic HFpEF exacerbation Fluid overload Acute respiratory failure with hypoxia Cardiology following Echo showed grade II diastolic dysfunction Continue IV Lasix Renal function improving T2DM Sliding scale insulin HTN HLD Morbid obesity Continue home meds Debility PT/OT DVT prophylaxis: Heparin Diagnosis/Problems Diagnosis/Problems (1) Acute kidney injury superimposed on chronic kidney disease Status: Acute (2) CHF exacerbation Status: Acute (3) Pulmonary edema Status: Acute (4) Fluid overload Status: Acute (5) HTN (hypertension) Status: Chronic (6) HLD (hyperlipidemia) Status: Chronic (7) T2DM (type 2 diabetes mellitus) Status: Chronic (8) Morbid obesity Status: Chronic CHARLIE SHEEHAN MD Apr 30, 2021 11:20
--- NOTE | 2021-04-30 12:14 | Occupational Ther Daily Note ---
OT Current Status-Daily Note Subjective Pt reports catheter was removed but still having pain in penis. Ice provided at end of session. Appearance Pt left sitting in chair, manager oracle in room. Mental Status/Objective Attachments: IV, Oxygen ADL-Treatment Therapy Code Descriptions/Definitions Functional [place] Measure: 0=Not Assessed/NA 4=Minimal Assistance 1=Total Assistance 5=Supervision or Setup 2=Maximal Assistance 6=Modified [place] 3=Moderate Assistance 7=Complete IndependenceSCALE: Activities may be completed with or without assistive devices. 5-Rjwblrolfw-keqfopz completes the activity by him/herself with no assistance from a helper. 5-Set-up or Clean-up Assistance-helper sets up or cleans up; patient completes activity. [place] assists only prior to or following the activity. 4-Supervision or Touching Assistance-helper provides verbal cues and/or touching/steadying and/or contact guard assistance as patient completes activity. Assistance may be provided throughout the activity or intermittently. 3-Partial/Moderate Assistance-helper does LESS THAN HALF the effort. [place] lifts, holds or supports trunk or limbs, but provides less than half the effort. 2-Substantial/Maximal Assistance-helper does MORE THAN HALF the effort. [place] lifts or holds trunk or limbs and provides more than half the effort. 8-Vumfomruu-xqxtcj does ALL the effort. Patient does none of the effort to complete the activity. Or, the assistance of 2 or more helpers is required for the patient to complete the activity. If activity was not attempted, code reason: 7-Patient Refused. 9-Not Applicable-not attempted and the patient did not perform the activity before the current illness, exacerbation or injury. 10-Not Attempted due to Environmental Limitations-(lack of equipment, weather restraints, etc.). 88-Not Attempted due to Medical Conditions or Safety Concerns. Oral Hygiene (QC): 5 On/Off Footwear: 3 Pt sitting in chair, reluctant to participate. Able to doff ministerio socks by sliding sock off with opposite foot. Assist needed to thread over toes, pt able to manage over heels. OT discussed compensatory and energy conservation strategies pt can utilize during ADLs. Sit<>stand: CGA, extra time due to discomfort from catheter removal. No unsteadiness in standing. Declines ambulating to bathroom to attempt to void. Appears slightly fearful of voiding and verbalizes wanting to "hold it in." Pt not on any oxygen at therapy arrival. Desat to 87% with minimal activity. Oxygen reapplied through nc and O2 returns to 91%. Education OT Patient Education: Correct positioning, Modified ADL techniques, Progress toward Goal/Update tx plan, Purpose of tx/functional activities, Transfer techniques Teaching Recipient: Patient Teaching Methods: Discussion Response to Teaching: Verbalize Understanding, Reinforcement Needed OT Skilled Nursing Goals Palletiser Operator Goals Time Frame: May 22, 2021 Toileting Hygiene (QC): 4 Upper Body Dressing (QC): 4 Lower Body Dressing (QC): 4 On/Off Footwear (QC): 4 1=Demonstrate adherence to instructed precautions during ADL tasks. 2=Patient will verbalize/demonstrate understanding of assistive devices/modifications for ADL. 3=Patient will improve strength/tolerance for activity to enable patient to perform ADL's. OT Education/Plan Problem List/Assessment Assessment: Decreased Activ Tolerance, Edema, Impaired I ADL's, Impaired Self- Care Skills Discharge Recommendations Plan/Recommendations: Continue POC Treatment Plan/Plan of Care Treatment,Training & Education: Yes Patient would benefit from OT for education, treatment and training to promote independence in ADL's, mobility, safety and/or upper extremity function for ADL's. Plan of Care: ADL Retraining, Functional Mobility, UE Funct Exercise/Act Treatment Duration: May 22, 2021 Frequency: 5 times per week Estimated Hrs Per Day: .25 hour per day Rehab Potential: Guarded Time/GCodes Start Time: 11:23 Stop Time: 11:33 Total Time Billed (hr/min): 10 Billed Treatment Time 1 visit ADL Elodia Webb OT Apr 30, 2021 12:14
[2021-04-30] MEDS: ROSUVASTATIN 5 MG (CRESTOR) TABLET PO SCH (21:18)
[2021-05-01 00:16] VITALS: BP 128/62
[2021-05-01 03:36] VITALS: BP 144/88
[2021-05-01] MEDS: inSUlin ASPART (NovoLOG) 1 UNIT/0.01 ML (CHARGE PER UNIT) SC SCH ×3 (06:44→16:45)
[2021-05-01 07:10] LABS: CALCIUM 8.3 MG/DL (8.5-10.1); CREATININE SERUM 3.17 MG/DL (0.60-1.30); POTASSIUM 4.6 MMOL/L (3.6-5.0)
[2021-05-01 07:28] VITALS: BP 181/80
[2021-05-01] MEDS: GABAPENTIN 600 MG (NEURONTIN) TAB PO SCH (08:47)
[2021-05-01] MEDS: hydrALAZINE (APRESOLINE) 25 MG TAB PO SCH ×2 (08:48→14:53)
[2021-05-01] MEDS: CALCIUM ACETATE 667 MG CAP (PHOSLO) PO SCH ×3 (08:48→18:25)
[2021-05-01] MEDS: ASPIRIN E.C. 81 MG (ECOTRIN) TAB PO SCH (08:49)
[2021-05-01] MEDS: amLODIPine 5 MG (NORVASC) TAB PO SCH (08:49)
[2021-05-01] MEDS: FUROSEMIDE 40 MG (LASIX) TAB PO SCH ×2 (08:49→16:45)
[2021-05-01] MEDS: meTOprolol TARTRATE 50 MG (LOPRESSOR) TAB PO SCH (08:50)
--- NOTE | 2021-05-01 10:33 | Cardiology Progress Note ---
Subjective Date Seen by Provider: May 01, 2021 Time Seen by Provider: 10:31 Subjective/Events-last exam Was seen at bedside, sitting comfortably, no new complaint, reporting significant improvement in his symptoms Review of Systems General: No Chills, No Night Sweats; Fatigue; No Malaise, No Appetite, No Other HEENT: No Head Aches, No Visual Changes, No Eye Pain, No Ear Pain, No Dysphasia, No Sinus Congestion, No Post Nasal Drip, No Sore Throat, No Other Pulmonary: Dyspnea; No Cough, No Pleuritic Chest Pain, No Other Cardiovascular: Edema; No: Chest Pain, Palpitations, Orthopnea, Paroxysmal Noc. Dyspnea, Lt Headedness, Other Objective-Cardiology Exam Last Set of Vital Signs Vital Signs 04/30/21 05/01/21 05/01/21 21:28 07:28 09:45 Temp 37.0 Pulse 67 Resp 18 B/P (MAP) 181/80 (113) Pulse Ox 94 O2 Delivery Nasal Cannula O2 Flow Rate 2.00 FiO2 28 I&O Intake and Output 05/01/21 00:00 Intake Total 2044 ml Output Total 3500 ml Balance -1456 ml Intake Oral 2044 ml Output Urine Total 3500 ml General: Alert, Oriented X3, Cooperative HEENT: Atraumatic, PERRLA Neck: Supple, No JVD, No Thyromegaly Lungs: Clear to Auscultation, Normal Air Movement Heart: Regular Rate, Normal S1, Normal S2, No Murmurs Abdomen: Normal Bowel Sounds, Soft, No Tenderness, No Hepatosplenomegaly, No Masses, Other (Abdominal distention) Extremities: No Clubbing, No Cyanosis, Normal Pulses, No Tenderness/Swelling, Other (Peripheral edema) Skin: No Rashes, No Breakdown, No Significant Lesion Neuro: Normal Gait, Normal Speech, Strength at 5/5 X4 Ext, Normal Tone, Se nsation Intact Psych/Mental Status: Mental Status NL, Mood NL Results Lab Laboratory Tests 05/01/21 05:49 A/P-Cardiology Admission Diagnosis Anasarca Chronic kidney disease Coronary artery disease Hypertension Assessment/Plan Fluid overload with anasarca, maintained on aggressive diuresis, I have stopped the Lasix IV today and started him on Lasix 80 mg orally twice daily which was h is previous home dose. Patient has been diuresing about 5 L daily for the past 3 days. Kidney funct ions improved slightly and now starting to deteriorate. 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 Patient had progressive worsening of his renal function, has not been taking diuretics and still having significant deterioration in renal function. May require hemodialysis in the future Generalized fatigue and shortness of breath, loss of energy. Significant improvement over the past 48 hours. Managed by primary care team Status post neck surgery, spinal stenosis, complicated by pneumonia and bacteremia and respiratory failure. Mild elevation of troponin, no active chest pain. No acute EKG changes. Probably type II myocardial infarction secondary to worsening renal function and small vessel coronary artery disease Coronary artery disease Status post stenting to the mid LAD using 3.018 mm Alpine stent expanded to 3.25 done in June 2017. Cardiac catheterization done in October 2018 showing patent stent in the mid LAD with moderate disease at the proximal and distal portion of the artery, had BMW wire placed across the LAD that straightened the LAD and the area looked better, at 60-70 percent proximal first obtuse marginal disease that did not change compared to the study of 2018, 50 percent distal right coronary artery. Conservative management is recommended no intervention is needed. Carotid artery stenosis-mild nonobstructive disease per carotid duplex done November 2018, continue to monitor. Diabetes mellitus, managed by Dr. Younger. Diabetic neuropathy, has been followed by primary care physician Hypertension, monitor blood pressure. Hyperlipidemia, intolerant to Lipitor with severe diarrhea, continue to monitor lipids History of erectile dysfunction, most likely secondary to peripheral neuropathy. Lower extremity pain, likely secondary to neuropathy, patient underwent peripheral angiogram done February 09, 2016 revealing mild to moderate disease in the anterior tibial of the left lower extremity and posterior tibial at 60-70 percent. Anterior tibial with good flow down to the ankle on the left lower extremity, otherwise mild disease in the right lower extremity and abdominal aorta. AILYN is normal Depression, Anxiety, lost his 17 years old son who drowned in summer 2018, management per medical team. Patient has a living will, Do Not Resuscitate KAREN YANG MD May 01, 2021 10:33
[2021-05-01 11:17] VITALS: BP 162/70
--- NOTE | 2021-05-01 12:05 | Physical Therapy Daily Note ---
PT Daily Note-Current Subjective Patient agrees to PT. Mental Status Patient Orientation: Normal For Age Attachments: Oxygen Transfers SCALE: Activities may be completed with or without assistive devices. 7-Bgzpffqneu-pkufzth completes the activity by him/herself with no assistance from a helper. 5-Set-up or Clean-up Assistance-helper sets up or cleans up; patient completes activity. [place] assists only prior to or following the activity. 4-Supervision or Touching Assistance-helper provides verbal cues and/or touching/steadying and/or contact guard assistance as patient completes activity. Assistance may be provided throughout the activity or intermittently. 3-Partial/Moderate Assistance-helper does LESS THAN HALF the effort. [place] lifts, holds or supports trunk or limbs, but provides less than half the effort. 2-Substantial/Maximal Assistance-helper does MORE THAN HALF the effort. [place] lifts or holds trunk or limbs and provides more than half the effort. 0-Scesvqjtl-gjwfyd does ALL the effort. Patient does none of the effort to complete the activity. Or, the assistance of 2 or more helpers is required for the patient to complete the activity. If activity was not attempted, code reason: 7-Patient Refused. 9-Not Applicable-not attempted and the patient did not perform the activity before the current illness, exacerbation or injury. 10-Not Attempted due to Environmental Limitations-(lack of equipment, weather restraints, etc.). 88-Not Attempted due to Medical Conditions or Safety Concerns. Sit to Stand (QC): 6 Gait Training Distance: 225' Walk 10 feet (QC): 5 Walk 50 ft with 2 Turns(QC): 5 Walk 150 ft (QC): 5 Gait Assistive Device: FWW slow, steady, functional gait sequence Assessment Current Status: Excellent Progress Patient is currently at PLOF with all gross motor skills. PT to dismiss patient from services at this time. PT Surveillance Investigator Goals Surveillance Investigator Goals PT Surveillance Investigator Goals Time Frame: May 06, 2021 Roll Left & Right (QC): 4 Sit to Lying (QC): 4 Lying-Sitting on Side/Bed(QC): 4 Sit to Stand (QC): 4 Chair/Npl-bg-Yygyz Xfer(QC): 4 Walk 10 feet (QC): 4 Walk 50ft with 2 Turns (QC): 4 PT Plan Treatment/Plan Treatment Plan: Discontinue PT Treatment Plan: Bed Mobility, Education, Functional Activity [place], Functional Strength, Gait, Safety, Therapeutic Exercise, Transfers Treatment Duration: May 06, 2021 Frequency: 6 times per week Estimated Hrs Per Day: .25 hour per day Patient and/or Family Agrees t: Yes Time/GCodes Time In: 1117 Time Out: 1128 Total Billed Treatment Time: 11 Total Billed Treatment 1 visit FA 11 min MARK RAMIREZ PT May 01, 2021 12:05
--- NOTE | 2021-05-01 12:38 | Occupational Ther Daily Note ---
OT Current Status-Daily Note Subjective Pt alert, working with PT. Took over care from PT. Pt agrees to therapy. No c/o pain. Mental Status/Objective Patient Orientation: Person, Place, Time, Situation Attachments: IV, Oxygen ADL-Treatment Pt independent with toileting using FWW and grabbars for stability and transfers. Pt educated on using sock aide to complete donning socks. Independently doffs socks sitting in recliner and uses sock aide to don independently. Pt educated on where to purchase sock aide. After session, pt sitting in recliner with call light/phone in reach. All needs met in room. Therapy Code Descriptions/Definitions Functional [place] Measure: 0=Not Assessed/NA 4=Minimal Assistance 1=Total Assistance 5=Supervision or Setup 2=Maximal Assistance 6=Modified [place] 3=Moderate Assistance 7=Complete IndependenceSCALE: Activities may be completed with or without assistive devices. 9-Notivtuhrc-btkwcbw completes the activity by him/herself with no assistance from a helper. 5-Set-up or Clean-up Assistance-helper sets up or cleans up; patient completes activity. [place] assists only prior to or following the activity. 4-Supervision or Touching Assistance-helper provides verbal cues and/or touching/steadying and/or contact guard assistance as patient completes activity. Assistance may be provided throughout the activity or intermittently. 3-Partial/Moderate Assistance-helper does LESS THAN HALF the effort. [place] lifts, holds or supports trunk or limbs, but provides less than half the effort. 2-Substantial/Maximal Assistance-helper does MORE THAN HALF the effort. [place] lifts or holds trunk or limbs and provides more than half the effort. 0-Jdthjvxpw-unbyaa does ALL the effort. Patient does none of the effort to complete the activity. Or, the assistance of 2 or more helpers is required for the patient to complete the activity. If activity was not attempted, code reason: 7-Patient Refused. 9-Not Applicable-not attempted and the patient did not perform the activity before the current illness, exacerbation or injury. 10-Not Attempted due to Environmental Limitations-(lack of equipment, weather restraints, etc.). 88-Not Attempted due to Medical Conditions or Safety Concerns. On/Off Footwear: 6 Toileting Hygiene (QC): 6 Toilet Transfer (QC): 6 OT Snf Goals Snf Goals Time Frame: May 22, 2021 Toileting Hygiene (QC): 4 Upper Body Dressing (QC): 4 Lower Body Dressing (QC): 4 On/Off Footwear (QC): 4 1=Demonstrate adherence to instructed precautions during ADL tasks. 2=Patient will verbalize/demonstrate understanding of assistive devices/modifications for ADL. 3=Patient will improve strength/tolerance for activity to enable patient to perform ADL's. OT Education/Plan Problem List/Assessment Assessment: Decreased Activ Tolerance, Impaired Self-Care Skills Discharge Recommendations Plan/Recommendations: Continue POC Treatment Plan/Plan of Care Patient would benefit from OT for education, treatment and training to promote independence in ADL's, mobility, safety and/or upper extremity function for ADL's. Plan of Care: ADL Retraining, Functional Mobility, UE Funct Exercise/Act Treatment Duration: May 22, 2021 Frequency: 5 times per week Estimated Hrs Per Day: .25 hour per day Rehab Potential: Guarded Time/GCodes Start Time: 11:30 Stop Time: 11:53 Total Time Billed (hr/min): 23 Billed Treatment Time 1 visit-FA 1 (10 min) ADL 1 (13 min) TRE WHEELER May 01, 2021 12:38
[2021-05-01] MEDS ORDERED: FURO40TA4 PO (12:59)
--- NOTE | 2021-05-01 13:06 | Discharge Summary ---
Discharge Summary Hospital Course Was the Problem List Reviewed?: Yes Problems/Dx: (1) Acute kidney injury superimposed on chronic kidney disease Status: Acute (2) CHF exacerbation Status: Acute (3) Pulmonary edema Status: Acute (4) Fluid overload Status: Acute (5) HTN (hypertension) Status: Chronic (6) HLD (hyperlipidemia) Status: Chronic (7) T2DM (type 2 diabetes mellitus) Status: Chronic (8) Morbid obesity Status: Chronic Hospital Course Date of Admission: Apr 27, 2021 at 12:47 Admission Diagnosis : FRANCISCA on CKD Family Physician/Provider: Mariia Sim DO Date of Discharge: 05/01/21 Discharge Diagnosis: FRANCISCA on CKD, Acute on chronic HFpEF, acute respiratory failure with hypoxia Hospital Course: Luisito Sims is a 56 year old male with PMH HTN, HLD, T2DM, HFpEF, CKD4, morbid obesity, who was admitted with acute on chronic heart failure with pre served ejection fraction and acute kidney injury on chronic kidney disease stage 4 due to cardiorenal syndrome. He was given IV diuresis and responded well. His kidney function improved but remained poor. He was set up with home oxygen 3 L continuously. He was discharged home in stable condition. He should follow up with Dr. Sim in about a week. Labs and Pending Lab Test: Laboratory Tests 04/30/21 16:04: Glucometer 206H 04/30/21 20:17: Glucometer 139H 05/01/21 05:49: Sodium Level 138, Potassium Level 4.6, Chloride Level 101, Carbon Dioxide Level 22, Anion Gap 15H, Blood Urea Nitrogen 96H, Creatinine 3.17H, Estimat Glomerular Filtration Rate 20, BUN/Creatinine Ratio 30, Glucose Level 183H, Calcium Level 8.3L 05/01/21 06:00: Glucometer 184H 05/01/21 11:17: Glucometer 249H Home Meds Active Furosemide 40 Mg Tablet 80 Mg PO 1400 30 Days LAST FILLED 03-11-2021 #30/ DAY SUPPLY Reported Metolazone 2.5 Mg Tablet 2.5 Mg PO WED,SAT Iron (Ferrous Sulfate) 325 Mg Tablet 325 Mg PO DAILY Tylenol (Acetaminophen) 325 Mg Tablet 650 Mg PO Q6H PRN Hydralazine HCl 50 Mg Tablet 50 Mg PO TID Vitamin D3 (Cholecalciferol (Vitamin D3)) 25 Mcg Capsule 25 Mcg PO DAILY Fexofenadine HCl 180 Mg Tablet 180 Mg PO DAILY Amlodipine Besylate 5 Mg Tablet 5 Mg PO DAILY Neurontin (Gabapentin) 300 Mg Capsule 600 Mg PO TID TAKES 2 (300MG) CAPS Rosuvastatin Calcium 5 Mg Tablet 5 Mg PO HS Glimepiride 4 Mg Tablet 4 Mg PO DAILY Aspirin EC (Aspirin) 81 Mg Tablet.dr 81 Mg PO DAILY Metoprolol Tartrate 50 Mg Tablet 50 Mg PO BID Assessment/Pt Instructions Take medications as prescribed. Follow up with yoru PCP. Return with worsening shortness of breath or if you feel like you are getting worse. Discharge Planning: >30 minutes discharge planning Discharge Instructions Discharge Diet: Low Sodium Diet Activity as Tolerated: Yes Discharge Physical Examination Vital Signs Vital Signs Date Time Temp Pulse Resp B/P (MAP) Pulse Ox O2 Delivery O2 Flow Rate FiO2 05/01/21 11:17 37.1 64 20 162/70 (100) 93 Nasal Cannula 2.00 04/30/21 21:28 28 General Appearance: No Apparent Distress, Chronically ill, Obese Respiratory: Lungs Clear, Normal Breath Sounds, No Respiratory Distress Cardiovascular: Regular Rate, Rhythm, No Edema, No Murmur Gastrointestinal: Normal Bowel Sounds, Non Tender, Soft Extremity: No Inflammation; Pedal Edema, Swelling Skin: Normal Color, Warm/Dry Neurologic/Psychiatric: Alert, Oriented x3, Normal Mood/Affect Allergies: Coded Allergies: atorvastatin (Verified Allergy, Unknown, 10/11/18) tazobactam (Verified Allergy, Unknown, RASH, 02/10/18) Copy Copies To 1: MARIIA SIM DO Discharge Summary Date of Admission Apr 27, 2021 at 12:47 Date of Discharge Discharge Date: May 01, 2021 Discharge Time: 13:06 Admission Diagnosis Acute kidney injury superimposed on chronic kidney disease Discharge Diagnosis Acute kidney injury superimposed on chronic kidney disease Cardiorenal syndrome Acute on chronic HFpEF exacerbation Acute respiratory failure with hypoxia (1) Acute kidney injury superimposed on chronic kidney disease Status: Acute (2) CHF exacerbation Status: Acute (3) Pulmonary edema Status: Acute (4) Fluid overload Status: Acute (5) HTN (hypertension) Status: Chronic (6) HLD (hyperlipidemia) Status: Chronic (7) T2DM (type 2 diabetes mellitus) Status: Chronic (8) Morbid obesity Status: Chronic CHARLIE SHEEHAN MD May 01, 2021 13:05
[2021-05-01 16:00] VITALS: BP 174/79
== END 2021-05-01 19:00 | disposition home or self-care (01) | DRG 280 ==
LOC: EDUNIT# 11:47 → ER 11:49 → CSD 12:47 → EDLOC 12:47 → 4TH 04-28 12:19 → EDPENDDISTM 05-01 17:00
PROVIDERS: ADMIT Internal Medicine; ATTEND Internal Medicine
DX: I13.0 Hypertensive heart and chronic kidney disease with heart failure and stage 1 through stage 4 chronic kidney disease, or unspecified chronic kidney disease (principal); J96.01 Acute respiratory failure with hypoxia; I21.A1 Myocardial infarction type 2; I50.43 Acute on chronic combined systolic (congestive) and diastolic (congestive) heart failure; N17.9 Acute kidney failure, unspecified; Z68.42 Body mass index [BMI] 45.0-49.9, adult; N18.4 Chronic kidney disease, stage 4 (severe); E11.22 Type 2 diabetes mellitus with diabetic chronic kidney disease; Z66 Do not resuscitate; E66.01 Morbid (severe) obesity due to excess calories; E11.42 Type 2 diabetes mellitus with diabetic polyneuropathy; F41.9 Anxiety disorder, unspecified; F32.A Depression, unspecified; I25.10 Atherosclerotic heart disease of native coronary artery without angina pectoris; K59.00 Constipation, unspecified; I42.9 Cardiomyopathy, unspecified; M19.91 Primary osteoarthritis, unspecified site; Z86.16 Personal history of COVID-19; Z95.5 Presence of coronary angioplasty implant and graft; Z87.01 Personal history of pneumonia (recurrent); Z79.84 Long term (current) use of oral hypoglycemic drugs; Z79.82 Long term (current) use of aspirin; Z88.8 Allergy status to other drugs, medicaments and biological substances; Z82.61 Family history of arthritis; Z82.49 Family history of ischemic heart disease and other diseases of the circulatory system; Z83.3 Family history of diabetes mellitus
CPT/HCPCS: 36415; 71045; 74176; 80048; 80053; 80061; 82947; 83690; 83735; 83874; 83880; 84100; 84484; 85007; 85025; 85027; 85610; 85730; 93005; 93041; 93306; 94760; 94761; 96374

== ENCOUNTER 2022-05-12 10:27 | Inpatient (IN) | payer OTHER ==
[~2022-05-12] VITALS: Ht 177 cm; Wt 157.3 kg
[~2022-05-12 10:27] MED LIST changes: -FEXO-46 PO; +HYDR20VI17 IV; -HYDR20VI7 IV; +MECL-149 PO; +METO2.5T PO; +NF-ALLE180 PO
--- NOTE | 2022-05-12 10:53 | ED Respiratory ---
General Chief Complaint: Respiratory Problems Stated Complaint: SOA Nursing Triage Note: ARRIVED VIA AMB TO ROOM 07 WITH COMPLAINTS OF SOA AND FLUID RETENTION AND WAS SENT OVER BY DR SIM. Source: patient Exam Limitations: no limitations History of Present Illness Date Seen by Provider: May 12, 2022 Time Seen by Provider: 10:52 Initial Comments Patient is a 57-year-old who presents to the emergency department at the direction of his primary care physician, Dr. Sim chief complaint of anasarca. Patient states that he has had about a 40 pound weight gain in the last month all of fluid. From legs through scrotum abdomen chest and neck and face. He takes Lasix daily 40 mg and metolazone 5 mg 3 times a week. He states that he is quite short of breath, he does not wear oxygen because the cost is prohibitive for him. He is not a smoker, not a drinker. He feels very weak and sluggish. No chest pain. He does have a stent, Dr. Perez is his ceramic mold designer. He states he had similar circumstances about a year ago when he was put in the hospital, diuresed and lost about 30 pounds. He denies any wounds, fevers, COVID symptoms or flulike symptoms. He states that he takes his medications faithfully every day. He is a diabetic. All other review of systems reviewed and negative except as stated Timing/Duration: getting worse Severity: severe Modifying Factors: Worse With Lying Down Associated Symptoms: shortness of breath Allergies and Home Medications Allergies Coded Allergies: atorvastatin (Verified Allergy, Unknown, 10/11/18) tazobactam (Verified Allergy, Unknown, RASH, 02/10/18) Patient Home Medication List Home Medication List Reviewed: Yes Acetaminophen (Tylenol) 325 Mg Tablet, 650 MG PO Q6H PRN for PAIN-MILD (1-4), (Reported) Entered as Reported by: MARYAM TEJEDA on 12/22/20 1528 Last Action: Reviewed Amlodipine Besylate (Amlodipine Besylate) 5 Mg Tablet, 5 MG PO DAILY, (Reported) Entered as Reported by: RUEL MONTENEGRO on 02/11/20 1236 Last Action: Reviewed Aspirin (Aspirin EC) 81 Mg Tablet., 81 MG PO DAILY, (Reported) Entered as Reported by: SETH SWIFT on 07/03/17 1310 Last Action: Reviewed Cholecalciferol (Vitamin D3) (Vitamin D3) 25 Mcg Capsule, 25 MCG PO DAILY, (Reported) Entered as Reported by: RUEL MONTENEGRO on 02/11/20 1236 Last Action: Converted Fexofenadine HCl (Fexofenadine HCl) 180 Mg Tablet, 180 MG PO DAILY, (Reported) Entered as Reported by: RUEL MONTENEGRO on 02/11/20 1236 Last Action: Reviewed Furosemide (Furosemide) 40 Mg Tablet, 80 MG PO 1400 Prescribed by: CHARLIE SHEEHAN on 05/01/21 1259 Last Action: Reviewed Gabapentin (Neurontin) 300 Mg Capsule, 600 MG PO TID, (Reported) Entered as Reported by: RUEL MONTENEGRO on 02/11/20 1236 Last Action: Continued Glimepiride (Glimepiride) 4 Mg Tablet, 4 MG PO DAILY, (Reported) Entered as Reported by: DEWAYNE SHEN on 01/23/18 1211 Last Action: Reviewed Hydralazine HCl (Hydralazine HCl) 50 Mg Tablet, 50 MG PO TID, (Reported) Entered as Reported by: MARYAM TEJEDA on 12/22/20 1528 Last Action: Reviewed Metolazone (Metolazone) 2.5 Mg Tablet, 2.5 MG PO WED,SAT, (Reported) Entered as Reported by: RUEL MONTENEGRO on 04/27/21 152 Last Action: Reviewed Metoprolol Tartrate (Metoprolol Tartrate) 50 Mg Tablet, 50 MG PO BID, (Reported) Entered as Reported by: SETH SWIFT on 07/03/17 1310 Last Action: Reviewed Rosuvastatin Calcium (Rosuvastatin Calcium) 5 Mg Tablet, 5 MG PO HS, (Reported) Entered as Reported by: DEWAYNE SHEN on 01/23/18 1211 Last Action: Continued Discontinued Medications Ferrous Sulfate (Iron) 325 Mg Tablet, 325 MG PO DAILY, (Reported) Discontinued Reason: No Longer Taking Entered as Reported by: MARYAM TEJEDA on 12/22/20 1528 Last Action: Discontinued Review of Systems Review of Systems Constitutional: see HPI EENTM: no symptoms reported Respiratory: orthopnea, short of breath Cardiovascular: no symptoms reported, edema Gastrointestinal: no symptoms reported Genitourinary: no symptoms reported Musculoskeletal: muscle cramps All Other Systems Reviewed Negative Unless Noted: Yes Past Awwqorw-Njgydv-Tdnars Hx Immunizations Up To Date Tetanus Booster (TDap): Unknown First/Initial COVID19 Vaccinat: September 2020 Second COVID19 Vaccination Escobar: August 2020 Third COVID19 Vaccination Date: August 2020 Seasonal Allergies Seasonal Allergies: No Past Medical History Surgery/Hospitalization HX: COVID - Feb 2020, December 2020 Port Placement 2017 - does not work Surgeries: Yes (NASAL POLYPS REMOVED CHILD, heart cath x2,cystoscopy, ) Cardiac, Coronary Stent, Nose Respiratory: Yes Pneumonia, Sleep Apnea Currently Using CPAP: Yes Currently Using BIPAP: No Cardiac: Yes (PAD, stent placed in 06/30) Cardiomyopathy, Coronary Artery Disease, Hypertension, Irregular Heartbeat, Peripheral Vascular Neurological: Yes (NEUROPATHY IN LEGS/ FEET) Neuropathy Reproductive Disorders: Yes (E.D.) Sexually Transmitted Disease: No HIV/AIDS: No Genitourinary: Yes Renal Failure Gastrointestinal: Yes Chronic Diarrhea Musculoskeletal: Yes Arthritis, Chronic Back Pain Endocrine: Yes Diabetes, Non-Insulin dep HEENT: No (DIABETIC RETINOPATHY) Cancer: No Psychosocial: Yes Anxiety, Depression Integumentary: No Blood Disorders: No Adverse Reaction/Blood Tranf: No Family Medical History Arthritis G8 BROTHER (knee replacement) Cardiovascular disease 19 FATHER (chf) Deafness or hearing loss 19 MOTHER (vertigo) Diabetes mellitus 19 MOTHER Prostate cancer 19 FATHER No Pertinent Family Hx, Hypertension Physical Exam Vital Signs - First Documented 05/12/22 05/12/22 10:30 10:54 Temp 36.3 Pulse 84 Resp 16 B/P (MAP) 148/86 (106) Pulse Ox 85 O2 Delivery Room Air O2 Flow Rate 2.00 Capillary Refill : Height: 5'10.00" Weight: 288lbs. 0.0oz. 130.239834ot; 50.00 BMI Method:Stated General Appearance: WD/WN, no apparent distress Eyes: Bilateral Eye Other (Bilateral conjunctival injection, lid edema upper and lower bilaterally, suspect some proptosis.) HEENT: PERRL/EOMI Neck: full range of motion Respiratory: lungs clear, normal breath sounds, no respiratory distress, no accessory muscle use Cardiovascular: regular rate, rhythm Gastrointestinal: normal bowel sounds, other (distended, non tender; pitting edema to abdominal wall) Extremities: non-tender, pedal edema (3+ bilataerally) Neurologic/Psychiatric: no motor/sensory deficits, alert, normal mood/affect, oriented x 3 Skin: normal color, warm/dry Procedures/Interventions Date of ETT Placement: Feb 03, 2018 Time of ETT Placement: 0503 Progress/Results/Core Measures Suspected Sepsis SIRS Temperature: Pulse: 84 Respiratory Rate: 16 Laboratory Tests 05/12/22 11:32: White Blood Count 8.8 Blood Pressure 148 /86 Mean: 106 Laboratory Tests 05/12/22 11:32: Creatinine 3.59H, Platelet Count 163, Total Bilirubin 0.8 Results/Orders Lab Results Laboratory Tests Test 05/12/22 11:32 Range/Units White Blood Count 8.8 4.3-11.0 10^3/uL Red Blood Count 4.49 4.30-5.52 10^6/uL Hemoglobin 10.7 L 13.3-17.7 g/dL Hematocrit 37 L 40-54 % Mean Corpuscular Volume 82 80-99 fL Mean Corpuscular Hemoglobin 24 L 25-34 pg Mean Corpuscular Hemoglobin Concent 29 L 32-36 g/dL Red Cell Distribution Width 16.4 H 10.0-14.5 % Platelet Count 163 130-400 10^3/uL Mean Platelet Volume 10.6 9.0-12.2 fL Immature Granulocyte % (Auto) 1 % Neutrophils (%) (Auto) 84 H 42-75 % Lymphocytes (%) (Auto) 5 L 12-44 % Monocytes (%) (Auto) 7 0-12 % Eosinophils (%) (Auto) 3 0-10 % Basophils (%) (Auto) 1 0-10 % Neutrophils # (Auto) 7.5 1.8-7.8 10^3/uL Lymphocytes # (Auto) 0.4 L 1.0-4.0 10^3/uL Monocytes # (Auto) 0.7 0.0-1.0 10^3/uL Eosinophils # (Auto) 0.2 0.0-0.3 10^3/uL Basophils # (Auto) 0.0 0.0-0.1 10^3/uL Immature Granulocyte # (Auto) 0.0 0.0-0.1 10^3/uL Neutrophils % (Manual) 90 % Lymphocytes % (Manual) 5 % Monocytes % (Manual) 4 % Eosinophils % (Manual) 1 % Anisocytosis SLIGHT Microcytosis SLIGHT Elliptocytes SLIGHT Sodium Level 142 135-145 MMOL/L Potassium Level 3.9 3.6-5.0 MMOL/L Chloride Level 104 98-107 MMOL/L Carbon Dioxide Level 23 21-32 MMOL/L Anion Gap 15 H 5-14 MMOL/L Blood Urea Nitrogen 103 *H 7-18 MG/DL Creatinine 3.59 H 0.60-1.30 MG/DL Estimat Glomerular Filtration Rate 19 BUN/Creatinine Ratio 29 Glucose Level 256 H 70-105 MG/DL Calcium Level 8.2 L 8.5-10.1 MG/DL Corrected Calcium 8.4 L 8.5-10.1 MG/DL Total Bilirubin 0.8 0.1-1.0 MG/DL Aspartate Amino Transf (AST/SGOT) 17 5-34 U/L Alanine Aminotransferase (ALT/SGPT) 20 0-55 U/L Alkaline Phosphatase 146 H 40-136 U/L B-Type Natriuretic Peptide 1586.4 H <100.0 PG/ML Total Protein 6.4 6.4-8.2 GM/DL Albumin 3.8 3.2-4.5 GM/DL Thyroid Stimulating Hormone (TSH) 1.28 0.35-4.94 UIU/ML Free Thyroxine 0.99 0.70-1.48 NG/DL My Orders Orders - LEVAR KINCAID MD Ed Iv/Invasive Line Start (05/12/22 11:02) Cbc With Automated Diff (05/12/22 11:02) Comprehensive Metabolic Panel (05/12/22 11:02) Thyroid Stimulating Hormone (05/12/22 11:02) Free T4 (Free Thyroxine) (05/12/22 11:02) Bnp [place] (05/12/22 11:02) Furosemide Injection (Lasix Injection) (05/13/22 09:00) Furosemide Injection (Lasix Injection) (05/12/22 11:30) Manual Differential (05/12/22 11:32) Chest 1 View, Ap/Pa Only (05/12/22 12:11) Ed Admission (Communication) (05/12/22 12:22) Vital Signs/I&O 05/12/22 05/12/22 10:30 10:54 Temp 36.3 Pulse 84 Resp 16 B/P (MAP) 148/86 (106) Pulse Ox 85 85 O2 Delivery Room Air Nasal Cannula O2 Flow Rate 2.00 Capillary Refill : Blood Pressure Mean: 106 Progress Note : Time: 12:20 Progress Note Case discussed with Dr. Ramachandran. She is agreeable to admission as long as the patient is making urine. He was given 40 mg of Lasix IV. He has taken his morning dose of Lasix. His vital signs remained stable on 2 L he is 9697%. He has not urinated since his IV Lasix, were going to BladderScan him. If he is retaining we will place a Castillo. Patient's BNP is quite elevated as well. Electrolytes and serum bicarb are normal. No elevated white blood cell count, he is not anemic. Chest x-ray is ordered and is pending. Dr. Ramachandran wants him on stepdown. Departure Communication (Admissions) Time/Spoke to Admitting Phy: 12:[address] Ramachandran Impression Primary Impression: Anasarca Additional Impression: CKD (chronic kidney disease) Qualified Codes: N18.9 - Chronic kidney disease, unspecified Disposition: ADMITTED INPATIENT Condition: Stable Admissions Decision to Admit Reason: Admit from ER (General) Decision to Admit/Date: May 12, 2022 Time/Decision to Admit Time: 12:21 Departure-Patient Inst. Referrals: MARIIA SIM DO (PCP/Family) Primary Care Physician LEVAR KINCAID MD May 12, 2022 10:53
[2022-05-12] MEDS ORDERED: FUROSEMIDE 40 MG/4 ML INJ (LASIX) IVP STA (11:30)
[2022-05-12 11:42] LABS: BASOPHILS % (AUTO) 1 % (0-10); EOSINOPHILS # (AUTO) 0.2 10^3/uL (0.0-0.3); EOSINOPHILS % (AUTO) 3 % (0-10); HEMATOCRIT 37 % (40-54); HEMOGLOBIN 10.7 g/dL (13.3-17.7); LYMPHOCYTES # (AUTO) 0.4 10^3/uL (1.0-4.0); LYMPHOCYTES % (AUTO) 5 % (12-44); MEAN CORPUSCULAR HEMOGLOBIN 24 pg (25-34); MEAN CORPUSCULAR HGB CONC 29 g/dL (32-36); MEAN CORPUSCULAR VOLUME 82 fL (80-99); MEAN PLATELET VOLUME 10.6 fL (9.0-12.2); MONOCYTES # (AUTO) 0.7 10^3/uL (0.0-1.0); MONOCYTES % (AUTO) 7 % (0-12); NEUTROPHILS # (AUTO) 7.5 10^3/uL (1.8-7.8); NEUTROPHILS % (AUTO) 84 % (42-75); PLATELET COUNT 163 10^3/uL (130-400); WHITE BLOOD COUNT 8.8 10^3/uL (4.3-11.0)
[2022-05-12 11:55] LABS: ANISOCYTOSIS SLIGHT; ELLIPT/OVALOCYTES SLIGHT; EOSINOPHILS % (MANUAL) 1 %; LYMPHOCYTES % (MANUAL) 5 %; MICROCYTOSIS SLIGHT; MONOCYTES % (MANUAL) 4 %; NEUTROPHILS % (MANUAL) 90 %
[2022-05-12 12:03] LABS: ALBUMIN 3.8 GM/DL (3.2-4.5); BILIRUBIN,TOTAL 0.8 MG/DL (0.1-1.0); CALCIUM 8.2 MG/DL (8.5-10.1); CREATININE SERUM 3.59 MG/DL (0.60-1.30); POTASSIUM 3.9 MMOL/L (3.6-5.0); TOTAL PROTEIN 6.4 GM/DL (6.4-8.2)
[2022-05-12 12:28] LABS: FREE T4 (FREE THYROXINE) 0.99 NG/DL (0.70-1.48)
--- NOTE | 2022-05-12 12:33 | Diagnostic Imaging Report ---
CLINICAL INDICATION: Patient with shortness of breath and anasarca. EXAM: Portable chest x-ray upright view. COMPARISON: Chest x-ray dated 04/27/2021. FINDINGS: There is stable cardiomegaly with mild pulmonary vascular congestion. There is no pleural effusion or pneumothorax. Left costophrenic angle region is incompletely imaged. There is amorphous and curvilinear opacities involving both midlung kunz and both lung bases which may represent lung infiltrates or interstitial edema. There is no pneumothorax. Right-sided central line again seen in stable position. Postop change to the cervical spine with ACDF is again seen. IMPRESSION: 1: There is cardiomegaly with pulmonary vascular congestion. 2: There is mild increase curvilinear and amorphous opacities involving both midlung kunz and both lung bases which may represent interstitial edema or lung infiltrates. Dictated by: Dictated on workstation # [id number]
[2022-05-12] MEDS ORDERED: ANTACID SUSP 30 ML UDC (MYLANTA) PO PRN (14:30)
[2022-05-12] MEDS ORDERED: MILK OF MAGNESIA 400 MG/5 ML 30 ML UDC PO PRN (14:30)
[2022-05-12] MEDS ORDERED: BENZONATATE 100 MG (TESSALON) CAPSULE PO PRN (14:30)
[2022-05-12] MEDS ORDERED: MELATONIN 3 MG TABLET PO PRN (14:30)
[2022-05-12] MEDS ORDERED: ONDANSETRON 4 MG/2 ML (SDV) Z0FRAN IV PRN (14:30)
[2022-05-12 14:45] VITALS: BP 171/88
[2022-05-12 15:00] VITALS: BP 169/88
--- NOTE | 2022-05-12 15:04 | History & Physical-Hospitalist ---
History of Present Illness HPI/Chief Complaint Pt is 57yoCM with a PMH of CHF, Acute on CKD, NIDDMII, HTN who presented to the ER due to swelling. He states he struggles with swelling always but for the past month or so it has gotten worse. He has been taking his medications as prescribed but continued to worsen prompting him to seek evaluation in the ER. He was admitted roughly 1 year ago with similar and states he had 30lbs taking off of him with diuretics. He believes he is up 40lbs currently with the extra fluid. He was admitted for IV Lasix and diuresis. He was also mildly hypoxic requiring 2lpm. Source: patient Date Seen 05/12/22 Time Seen by a Provider: 14:56 Attending Physician Yang Younger DO PCP Admitting Physician: Shayna Ramachandran MD Attending Physician: Shayna Ramachandran MD Referring Physician Date of Admission May 12, 2022 at 12:23 Home Medications & Allergies Home Medications Reviewed patient Home Medication Reconciliation performed by pharmacy medication reconciliations sound technician supervisor and/or nursing. Patients Allergies have been reviewed. Allergies Allergies Coded Allergies atorvastatin (Verified Allergy, Unknown, 10/11/18) tazobactam (Verified Allergy, Unknown, RASH, 02/10/18) Past Gmsgwsg-Qebsds-Pbxdrq Hx Patient Social History Employed/Student: employed Tobacco Use?: No Smoking Status: Never a Smoker Smokeless Tobacco Frequency: Never a User Use of E-Cig and/or Vaping dev: No Substance use?: No Alcohol Use?: No Pt feels they are or have been: No Immunizations Up To Date Date of Influenza Vaccine: Mar 20, 2018 First/Initial COVID19 Vaccinat: September 2020 Second COVID19 Vaccination Escobar: August 2020 Tetanus Booster (TDap): Less Than 5 Years Date of Pneumonia Vaccine: Jan 12, 2016 Seasonal Allergies Seasonal Allergies: No Current Status Advance Directives: No Communicates: Verbally Primary Language: Chadian Preferred Spoken Language: Chadian Is interpretation needed?: No Sensory deficits: Vision impairment Past Medical History Surgeries: Cardiac, Coronary Stent, Nose Pneumonia, Sleep Apnea Currently Using CPAP: Yes Currently Using BIPAP: No Cardiomyopathy, Coronary Artery Disease, Hypertension, Irregular Heartbeat, Peripheral Vascular Neuropathy Sexually Transmitted Disease: No HIV/AIDS: No Renal Failure Chronic Diarrhea Arthritis, Chronic Back Pain Diabetes, Non-Insulin dep Anxiety, Depression Blood Disorders: No Adverse Reaction/Blood Tranf: No Family Medical History Reviewed Nursing Family Hx Arthritis G8 BROTHER (knee replacement) Cardiovascular disease 19 FATHER (chf) Deafness or hearing loss 19 MOTHER (vertigo) Diabetes mellitus 19 MOTHER Prostate cancer 19 FATHER No Pertinent Family Hx, Hypertension Review of Systems Constitutional: No chills, No fever EENTM: no symptoms reported Respiratory: dyspnea on exertion, short of breath Cardiovascular: edema Gastrointestinal: no symptoms reported Genitourinary: no symptoms reported Musculoskeletal: no symptoms reported Skin: no symptoms reported Psychiatric/Neurological: No Symptoms Reported Physical Exam Physical Exam Vital Signs Vital Signs - First Documented 05/12/22 05/12/22 10:30 10:54 Temp 36.3 Pulse 84 Resp 16 B/P (MAP) 148/86 (106) Pulse Ox 85 O2 Delivery Room Air O2 Flow Rate 2.00 Capillary Refill : Height, Weight, BMI Height: 5'10.00" Weight: 288lbs. 0.0oz. 130.260147jc; 50.11 BMI Method:Stated General Appearance: No Apparent Distress, WD/WN HEENT: PERRL/EOMI, Moist Mucous Membranes; No Scleral Icterus (L), No Scleral Icterus (R) Neck: Normal Inspection, Supple Respiratory: No Accessory Muscle Use, No Respiratory Distress, Crackles (bases) Cardiovascular: Regular Rate, Rhythm, No Murmur Gastrointestinal: Normal Bowel Sounds, Non Tender, Soft Extremity: Pedal Edema, Swelling Neurologic/Psychiatric: Alert, Oriented x3, Normal Mood/Affect Results Results/Procedures Labs Laboratory Tests 05/14/22 03:31 05/15/22 06:05 Patient resulted labs reviewed. Imaging: Reviewed Imaging Report Imaging [facility], [place] NAME: DULCE MARIA [facility] REC#: [id number] PT STATUS: REG ER : 1965 PHYSICIAN: LEVAR KINCAID MD ADMIT DATE: 05/12/22/ER Draft Date of Exam:05/12/22 CHEST 1 VIEW, AP/PA ONLY CLINICAL INDICATION: Patient with shortness of breath and anasarca. EXAM: Portable chest x-ray upright view. COMPARISON: Chest x-ray dated 04/27/2021. FINDINGS: There is stable cardiomegaly with mild pulmonary vascular congestion. There is no pleural effusion or pneumothorax. Left costophrenic angle region is incompletely imaged. There is amorphous and curvilinear opacities involving both midlung kunz and both lung bases which may represent lung infiltrates or interstitial edema. There is no pneumothorax. Right-sided central line again seen in stable position. Postop change to the cervical spine with ACDF is again seen. IMPRESSION: 1: There is cardiomegaly with pulmonary vascular congestion. 2: There is mild increase curvilinear and amorphous opacities involving both midlung kunz and both lung bases which may represent interstitial edema or lung infiltrates. Dictated on workstation # [id number] Dict: 05/12/22 1228 Trans: 05/12/22 1233 [facility] [id number] Interpreted by: EM DELGADO MD Electronically signed by: Assessment/Plan Admission Diagnosis Acute kidney injury superimposed on chronic kidney disease Admission Status: Inpatient Order (span 2 midnights) Reason for Inpatient Admission: see below Assessment and Plan Acute kidney injury superimposed on chronic kidney disease Stage 4 Acute on chronic hypoxic respiratory failure CHF exacerbation Fluid overload Acute respiratory failure with hypoxia Started on IV Lasix Cardiology consulted, appreciate recs Monitor intake and output - would prefer to not have a jarrett Monitor renal function Discussed with Dr Amber William, nephrology, who will attempt to establi sh care with patient on 05/18 T2DM Sliding scale insulin HTN HLD Morbid obesity Continue home meds DVT ppx: Heparin Diagnosis/Problems Diagnosis/Problems (1) Anasarca Status: Acute (2) Acute kidney injury superimposed on chronic kidney disease Status: Acute (3) CHF exacerbation Status: Acute Qualifiers: Heart failure type: combined systolic and diastolic Qualified Codes: I50.43 - Acute on chronic combined systolic (congestive) and diastolic (congestive) heart failure (4) T2DM (type 2 diabetes mellitus) Status: Chronic (5) HLD (hyperlipidemia) Status: Chronic (6) HTN (hypertension) Status: Chronic (7) Pulmonary edema Status: Acute (8) Morbid obesity Status: Chronic (9) Fluid overload Status: Acute SHAYNA RAMACHANDRAN MD May 12, 2022 3:04 pm
[2022-05-12 15:15] VITALS: BP 186/142
[2022-05-12] MEDS ORDERED: FLU QUADRIvalent (6 months+) 60 mcg/0.5 ml 2022-23 (Fluzone) IM ONE (15:15)
[2022-05-12 15:30] VITALS: BP 175/87
--- NOTE | 2022-05-12 15:47 | Consultation-Cardiology ---
HPI-Cardiology Cardiology Consultation Date of Consultation 05/12/22 Date of Admission Time Seen by Provider: 14:56 Indication: CHF HPI Patient is a 57 y/o male well known to me with history of CAD, CHF, CKD, HTN. Presented to the ER with complaints of increased dyspnea and peripheral edema worsening over the past month. Denies any recent chest pain. Reports associated fatigue and weakness, occasional dizziness. Denies any syncope. Has been maintained on Lasix and metolazone at home and reports compliance with medications. Home Medications & Allergies Allergies: Coded Allergies: atorvastatin (Verified Allergy, Unknown, 10/11/18) tazobactam (Verified Allergy, Unknown, RASH, 02/10/18) Home Medication List Reviewed: Yes [id number] Hx Patient Social History Marital Status: single Employed/Student: employed Smoking Status: Never a Smoker 2nd Hand Smoke Exposure: No Recent Hopitalizations: No Have you traveled recently?: No Alcohol Use?: No Immunizations Up To Date Tetanus Booster (TDap): Unknown Date of Pneumonia Vaccine: Jan 12, 2016 Date of Influenza Vaccine: Mar 20, 2018 Family Medical History Significant Family History: No Pertinent Family Hx, Hypertension Family History: Arthritis G8 BROTHER (knee replacement) Cardiovascular disease 19 FATHER (chf) Deafness or hearing loss 19 MOTHER (vertigo) Diabetes mellitus 19 MOTHER Prostate cancer 19 FATHER Review of Systems-General Review of Systems Constitutional: No chills, No fever EENTM: no symptoms reported Respiratory: dyspnea on exertion, short of breath Cardiovascular: edema Gastrointestinal: no symptoms reported Genitourinary: no symptoms reported Musculoskeletal: no symptoms reported Skin: no symptoms reported Psychiatric/Neurological: No Symptoms Reported All Other Systems Reviewed Negative Unless Noted: Yes Reviewed Test Results Reviewed Test Results Lab Laboratory Tests 05/12/22 11:32: White Blood Count 8.8, Red Blood Count 4.49, Hemoglobin 10.7L, Hematocrit 37L, Mean Corpuscular Volume 82, Mean Corpuscular Hemoglobin 24L, Mean Corpuscular Hemoglobin Concent 29L, Red Cell Distribution Width 16.4H, Platelet Count 163, Mean Platelet Volume 10.6, Immature Granulocyte % (Auto) 1, Neutrophils (%) (Auto) 84H, Lymphocytes (%) (Auto) 5L, Monocytes (%) (Auto) 7, Eosinophils (%) (Auto) 3, Basophils (%) (Auto) 1, Neutrophils # (Auto) 7.5, Lymphocytes # (Auto) 0.4L, Monocytes # (Auto) 0.7, Eosinophils # (Auto) 0.2, Basophils # (Auto) 0.0, Immature Granulocyte # (Auto) 0.0, Neutrophils % (Manual) 90, Lymphocytes % (Ma nual) 5, Monocytes % (Manual) 4, Eosinophils % (Manual) 1, Anisocytosis SLIGHT, Microcytosis SLIGHT, Elliptocytes SLIGHT, Sodium Level 142, Potassium Level 3.9, Chloride Level 104, Carbon Dioxide Level 23, Anion Gap 15H, Blood Urea Nitrogen 103*H, Creatinine 3.59H, Estimat Glomerular Filtration Rate 19, BUN/Creatinine R atio 29, Glucose Level 256H, Calcium Level 8.2L, Corrected Calcium 8.4L, Total Bilirubin 0.8, Aspartate Amino Transf (AST/SGOT) 17, Alanine Aminotransferase (ALT/SGPT) 20, Alkaline Phosphatase 146H, B-Type Natriuretic Peptide 1586.4H, Total Protein 6.4, Albumin 3.8, Thyroid Stimulating Hormone (TSH) 1.28, Free Thyroxine 0.99 ECG Impression ECG Initial ECG Rhythm: Normal Sinus Physical Exam Physical Exam Vital Signs Vital Signs - First Documented 05/12/22 05/12/22 10:30 10:54 Temp 36.3 Pulse 84 Resp 16 B/P (MAP) 148/86 (106) Pulse Ox 85 O2 Delivery Room Air O2 Flow Rate 2.00 Capillary Refill : Height, Weight, BMI Height: 5'10.00" Weight: 288lbs. 0.0oz. [id number]; 50.11 BMI Method:Stated General Appearance: No Apparent Distress, WD/WN Eyes: Bilateral Eye Other (Bilateral conjunctival injection, lid edema upper and lower bilaterally, suspect some proptosis.) HEENT: PERRL/EOMI, Moist Mucous Membranes; No Scleral Icterus (L), No Scleral Icterus (R) Neck: Normal Inspection, Supple Respiratory: No Accessory Muscle Use, No Respiratory Distress, Crackles (bases) Cardiovascular: Regular Rate, Rhythm, No Murmur Gastrointestinal: Normal Bowel Sounds, Non Tender, Soft Extremity: Pedal Edema, Swelling Neurologic/Psychiatric: Alert, Oriented x3, Normal Mood/Affect A/P-Cardiology Admission Diagnosis Acute on chronic kidney disease Anasarca Acute on chronic CHF CAD Assessment/Plan Acute on chronic renal insufficiency, has seen nephrology in the past, but none recently. Continue to monitor renal function closely. Dr. Amber Irene consulted. Worsening edema, anasarca, started on Lasix 40mg IV BID. Continue to diurese. Has been maintained on Lasix and Metolazone as outpatient. Acute on chronic CHF, LV systolic dysfunction. Most recent 2D Echo done Apr 2021 showing EF 45%, mild diffuse hypokinesia, grade 2 diastolic dysfunction, severely dilated left atrium, Aortic valve sclerosis without stenosis, PA 45- 50mmHg. Continue to diurese. Unable to tolerate CAMILLA-I or ARB d/t underlying kidney function. Planning to reevaluate 2D Echo. Palpitations, reporting improvement. Holter monitor showed sinus rhythm with occasional atrial premature contraction, occasional PVCs and ventricular bigeminy, short run of paroxysmal atrial tachycardia total of 4 beats. Currently controlled well. Continue to monitor Coronary artery disease Status post stenting to the mid LAD using 3.018 mm Alpine stent expanded to 3.25 done in June 2017. Cardiac catheterization done in October 2018 showing patent stent in the mid LAD with moderate disease at the proximal and distal portion of the artery, had BMW wire placed across the LAD that straightened the LAD and the area looked better, at 60-70 percent proximal first obtuse marginal disease that did not change compared to the study of 2018, 50 percent distal right coronary artery. Continue to monitor. Will consider stress test as outpatient. Carotid artery stenosis-mild nonobstructive disease per carotid duplex done November 2018, continue to monitor. Diabetes mellitus, managed by Dr. Younger. Diabetic neuropathy, followed and managed by [facility] Hypertension, good control, continue to monitor Hyperlipidemia, intolerant to Lipitor with severe diarrhea, lipid profile done on October 11, 2018 showing total cholesterol 116, triglyceride 136, HDL 29, LDL 56. I will reevaluate lipid profile. History of erectile dysfunction, most likely secondary to peripheral neuropathy. Lower extremity pain, likely secondary to neuropathy, patient underwent peripheral angiogram done February 09, 2016 revealing mild to moderate disease in the anterior tibial of the left lower extremity and posterior tibial at 60-70 percent. Anterior tibial with good flow down to the ankle on the left lower extremity, otherwise mild disease in the right lower extremity and abdominal aorta. AILYN is normal Depression, Anxiety, lost his 17 years old son who drowned in summer 2018 Thank you for allowing us to participate in the management of Mr. Sims. This is Marleny Rogers PA-C, as a scribe for Dr. Perez. This is a late entry, patient was seen and evaluated with Marleny, I interviewed and examined the patient, discussed the management plan and agree w ith the scribe note Patient was admitted for worsening shortness of breath and anasarca, have worsening renal insufficiency Started on diuretics, appears to be responding. Will evaluate 2D echo, monitor tolerance and response. MARLENY SOMERS May 12, 2022 15:47 KAREN PEREZ MD May 13, 2022 08:55
[2022-05-12 17:15] VITALS: BP 194/99
[2022-05-12] MEDS: hydrALAZINE (APRESOLINE) 25 MG TAB PO SCH ×2 (17:15→21:44)
[2022-05-12] MEDS: amLODIPine 5 MG (NORVASC) TAB PO SCH (17:15)
[2022-05-12] MEDS: inSUlin ASPART (NovoLOG) 1 UNIT/0.01 ML (CHARGE PER UNIT) SC SCH ×2 (17:19→21:52)
[2022-05-12 20:00] VITALS: BP 171/78
[2022-05-12] MEDS ORDERED: FUROSEMIDE 40 MG/4 ML INJ (LASIX) IV SCH (21:00)
[2022-05-12] MEDS: ROSUVASTATIN 5 MG (CRESTOR) TABLET PO SCH (21:44)
[2022-05-12] MEDS: GABAPENTIN 300 MG (NEURONTIN) CAP PO SCH (21:44)
[2022-05-12] MEDS: meTOprolol TARTRATE 50 MG (LOPRESSOR) TAB PO SCH (21:44)
[2022-05-13] VITALS: BP 139/73
[2022-05-13] MEDS: inSUlin ASPART (NovoLOG) 1 UNIT/0.01 ML (CHARGE PER UNIT) SC SCH ×4 (06:54→20:58)
[2022-05-13 08:00] VITALS: BP 158/84
[2022-05-13 08:31] LABS: HEMATOCRIT 37 % (40-54); HEMOGLOBIN 10.7 g/dL (13.3-17.7); MEAN CORPUSCULAR HEMOGLOBIN 24 pg (25-34); MEAN CORPUSCULAR HGB CONC 29 g/dL (32-36); MEAN CORPUSCULAR VOLUME 83 fL (80-99); PLATELET COUNT 168 10^3/uL (130-400); WHITE BLOOD COUNT 8.6 10^3/uL (4.3-11.0)
[2022-05-13] MEDS: amLODIPine 5 MG (NORVASC) TAB PO SCH (08:35)
[2022-05-13] MEDS: hydrALAZINE (APRESOLINE) 25 MG TAB PO SCH ×3 (08:35→20:30)
[2022-05-13] MEDS: meTOprolol TARTRATE 50 MG (LOPRESSOR) TAB PO SCH ×2 (08:35→20:30)
[2022-05-13] MEDS: VITAMIN D3 25 MCG (1,000 UNITS) TABLET PO SCH (08:35)
[2022-05-13] MEDS: GABAPENTIN 300 MG (NEURONTIN) CAP PO SCH ×3 (08:36→20:30)
[2022-05-13 08:48] LABS: POTASSIUM 4.3 MMOL/L (3.6-5.0)
[2022-05-13 08:49] LABS: CALCIUM 8.6 MG/DL (8.5-10.1)
[2022-05-13 08:54] LABS: CREATININE SERUM 3.59 MG/DL (0.60-1.30)
--- NOTE | 2022-05-13 08:58 | Cardiology Progress Note ---
Subjective Date Seen by Provider: May 13, 2022 Time Seen by Provider: 08:55 Subjective/Events-last exam Patient was seen at bedside, responding well to diuretics. Feeling better today. Review of Systems General: No Chills, No Night Sweats; Fatigue, Malaise; No Appetite, No Other HEENT: No Head Aches, No Visual Changes, No Eye Pain, No Ear Pain, No Dysphasia, No Sinus Congestion, No Post Nasal Drip, No Sore Throat, No Other Pulmonary: Dyspnea; No Cough, No Pleuritic Chest Pain, No Other Cardiovascular: Edema; No: Chest Pain, Palpitations, Orthopnea, Paroxysmal Noc. Dyspnea, Lt Headedness, Other Objective-Cardiology Exam Last Set of Vital Signs Vital Signs 05/13/22 05/13/22 08:00 08:45 Temp 35.9 Pulse 84 Resp 18 B/P (MAP) 158/84 (108) Pulse Ox 94 O2 Delivery Nasal Cannula O2 Flow Rate 2.00 I&O Intake and Output 05/13/22 00:00 Intake Total 600 ml Output Total 1250 ml Balance -650 ml Intake Oral 600 ml Output Urine Total 1250 ml Daily Weight Change Yes, Greater than 33 lbs General: Alert, Oriented X3, Cooperative HEENT: Atraumatic, PERRLA Neck: Supple, No JVD, No Thyromegaly Lungs: Clear to Auscultation, Normal Air Movement Heart: Regular Rate, Normal S1, Normal S2, Other (Systolic murmur at the left sternal border,) Abdomen: Normal Bowel Sounds, Soft, No Tenderness, No Hepatosplenomegaly, No Masses Extremities: No Clubbing, No Cyanosis, Normal Pulses, No Tenderness/Swelling, Other Skin: No Rashes, No Breakdown, No Significant Lesion Neuro: Normal Gait, Normal Speech, Strength at 5/5 X4 Ext, Normal Tone, Sensation Intact Psych/Mental Status: Mental Status NL, Mood NL Results Lab Laboratory Tests 05/12/22 11:32 05/13/22 08:23 A/P-Cardiology Admission Diagnosis Acute on chronic kidney disease Anasarca Acute on chronic CHF CAD Assessment/Plan Acute on chronic renal insufficiency, has seen nephrology in the past, but none recently. Continue to monitor renal function closely. Dr. Amber Irene consulted. Responding well to diuretics. Continue to monitor Worsening edema, anasarca, started on Lasix 40mg IV BID. Continue to diurese. Has been maintained on Lasix and Metolazone as outpatient. Started on Lasix IV and appears to be responding well. Acute on chronic CHF, LV systolic dysfunction. Most recent 2D Echo done Apr 2021 showing EF 45%, mild diffuse hypokinesia, grade 2 diastolic dysfunction, severely dilated left atrium, Aortic valve sclerosis without stenosis, PA 45- 50mmHg. Continue to diurese. Unable to tolerate CAMILLA-I or ARB d/t underlying kidney function. 2D echo was done on May 12, 2022 with normal left ventricular size, ejection fraction 50 to 55%, grade 2 diastolic dysfunction, dilated left atrium, PA pressure 40 to 45 mmHg. Continue with diuresis and monitor tolerance and response Palpitations, reporting improvement. Holter monitor showed sinus rhythm with occasional atrial premature contraction, occasional PVCs and ventricular bigeminy, short run of paroxysmal atrial tachycardia total of 4 beats. Currently controlled well. Continue to monitor Coronary artery disease Status post stenting to the mid LAD using 3.018 mm Alpine stent expanded to 3.25 done in June 2017. Cardiac catheterization done in October 2018 showing patent stent in the mid LAD with moderate disease at the proximal and distal portion of the artery, had BMW wire placed across the LAD that straightened the LAD and the area looked better, at 60-70 percent proximal first obtuse marginal disease that did not change compared to the study of 2018, 50 percent distal right coronary artery. Continue to monitor. Will consider stress test as outpatient. Carotid artery stenosis-mild nonobstructive disease per carotid duplex done November 2018, continue to monitor. Diabetes mellitus, managed by Dr. Younger. Diabetic neuropathy, followed and managed by [facility] Hypertension, good control, continue to monitor Hyperlipidemia, intolerant to Lipitor with severe diarrhea, lipid profile done on October 11, 2018 showing total cholesterol 116, triglyceride 136, HDL 29, LDL 56. I will reevaluate lipid profile. History of erectile dysfunction, most likely secondary to peripheral neuropathy. Lower extremity pain, likely secondary to neuropathy, patient underwent peripheral angiogram done February 09, 2016 revealing mild to moderate disease in the anterior tibial of the left lower extremity and posterior tibial at 60-70 percent. Anterior tibial with good flow down to the ankle on the left lower extremity, otherwise mild disease in the right lower extremity and abdominal aorta. AILYN is normal Depression, Anxiety, lost his 17 years old son who drowned in summer 2018 KAREN YANG MD May 13, 2022 08:58
[2022-05-13] MEDS ORDERED: NON-FORMULARY MEDICATION 1 EA EA (Cholecalciferol (Vitamin D3) (Vitamin D3) 25 MCG) PO SCH (09:00)
[2022-05-13] MEDS ORDERED: FUROSEMIDE 40 MG/4 ML INJ (LASIX) IVP SCH (09:00)
[2022-05-13] MEDS ORDERED: FURO40TA4 PO (11:13)
[2022-05-13] MEDS ORDERED: RT-ALBUINH INH (11:13)
[2022-05-13 12:00] VITALS: BP 150/87
--- NOTE | 2022-05-13 14:02 | Progress Note - Hospitalist ---
Subjective HPI/CC On Admission Date Seen by Provider: May 13, 2022 Pt is 57yoCM with a PMH of CHF, Acute on CKD, NIDDMII, HTN who presented to the ER due to swelling. He states he struggles with swelling always but for the past month or so it has gotten worse. He has been taking his medications as prescribed but continued to worsen prompting him to seek evaluation in the ER. He was admitted roughly 1 year ago with similar and states he had 30lbs taking off of him with diuretics. He believes he is up 40lbs currently with the extra fluid. He was admitted for IV Lasix and diuresis. He was also mildly hypoxic requiring 2lpm. Subjective/Events-last exam Pt reports feeling about the same. Tired. Objective Exam Vital Signs Vital Signs Date Time Temp Pulse Resp B/P (MAP) Pulse Ox O2 Delivery O2 Flow Rate FiO2 05/15/22 08:00 Nasal Cannula 4.00 05/15/22 07:18 36.6 72 16 155/77 (103) 90 Capillary Refill : General Appearance: No Apparent Distress, Chronically ill, Obese Respiratory: Lungs Clear, No Respiratory Distress Cardiovascular: Regular Rate, Rhythm, No Murmur Extremity: Pedal Edema, Swelling Neurologic/Psychiatric: Alert, Oriented x3 Results/Procedures Lab Laboratory Tests 05/15/22 06:05 Patient resulted labs reviewed. Imaging: Reviewed Imaging Report Assessment/Plan Assessment and Plan Assess & Plan/Chief Complaint Acute kidney injury superimposed on chronic kidney disease Stage 4 Acute on chronic hypoxic respiratory failure CHF exacerbation Fluid overload Acute respiratory failure with hypoxia Continue on IV Lasix Cardiology consulted, appreciate recs Monitor intake and output- good output Monitor renal function Discussed with Dr Amber William, nephrology, on admission who will attempt to establish care with patient on 05/18 T2DM Sliding scale insulin HTN HLD Morbid obesity Continue home meds DVT ppx: Heparin Diagnosis/Problems Diagnosis/Problems (1) Anasarca Status: Acute (2) Acute kidney injury superimposed on chronic kidney disease Status: Acute (3) CHF exacerbation Status: Acute Qualifiers: Heart failure type: combined systolic and diastolic Qualified Codes: I50.43 - Acute on chronic combined systolic (congestive) and diastolic (congestive) heart failure (4) T2DM (type 2 diabetes mellitus) Status: Chronic (5) HLD (hyperlipidemia) Status: Chronic (6) HTN (hypertension) Status: Chronic (7) Pulmonary edema Status: Acute (8) Morbid obesity Status: Chronic (9) Fluid overload Status: Acute SHAYNA MARTIN MD May 13, 2022 2:02 pm
[2022-05-13 15:53] VITALS: BP 152/79
[2022-05-13] MEDS: FUROSEMIDE 40 MG/4 ML INJ (LASIX) IVP SCH (16:58)
[2022-05-13 20:00] VITALS: BP 161/81
[2022-05-13] MEDS: ROSUVASTATIN 5 MG (CRESTOR) TABLET PO SCH (20:30)
[2022-05-14 03:49] LABS: HEMATOCRIT 36 % (40-54); HEMOGLOBIN 10.2 g/dL (13.3-17.7); MEAN CORPUSCULAR HEMOGLOBIN 24 pg (25-34); MEAN CORPUSCULAR HGB CONC 29 g/dL (32-36); MEAN CORPUSCULAR VOLUME 83 fL (80-99); MEAN PLATELET VOLUME 10.8 fL (9.0-12.2); PLATELET COUNT 156 10^3/uL (130-400); WHITE BLOOD COUNT 8.3 10^3/uL (4.3-11.0)
[2022-05-14 04:00] VITALS: BP 162/85
[2022-05-14 04:07] LABS: POTASSIUM 4.7 MMOL/L (3.6-5.0)
[2022-05-14 04:09] LABS: CALCIUM 8.4 MG/DL (8.5-10.1)
[2022-05-14 04:13] LABS: CREATININE SERUM 3.8 MG/DL (0.60-1.30)
[2022-05-14] MEDS: inSUlin ASPART (NovoLOG) 1 UNIT/0.01 ML (CHARGE PER UNIT) SC SCH ×4 (05:54→20:40)
--- NOTE | 2022-05-14 06:11 | Progress Note - Hospitalist ---
Subjective HPI/CC On Admission Date Seen by Provider: May 14, 2022 Pt is 57yoCM with a PMH of CHF, Acute on CKD, NIDDMII, HTN who presented to the ER due to swelling. He states he struggles with swelling always but for the past month or so it has gotten worse. He has been taking his medications as prescribed but continued to worsen prompting him to seek evaluation in the ER. He was admitted roughly 1 year ago with similar and states he had 30lbs taking off of him with diuretics. He believes he is up 40lbs currently with the extra fluid. He was admitted for IV Lasix and diuresis. He was also mildly hypoxic requiring 2lpm. Subjective/Events-last exam Pt reports doing well. Sleeping with CPAP in place. Reports scratched scrotum with urinal yesterday and sore now. UOP only -65mL overnight but patient reports 2 large voids with BMs like likely would have filled urinal had it been collected. Objective Exam Vital Signs Vital Signs Date Time Temp Pulse Resp B/P (MAP) Pulse Ox O2 Delivery O2 Flow Rate FiO2 05/14/22 04:00 65 162/85 (110) 90 Nasal Cannula 2.00 05/13/22 20:00 36.6 18 Capillary Refill : General Appearance: No Apparent Distress, Chronically ill, Obese Respiratory: Lungs Clear, No Respiratory Distress Cardiovascular: Regular Rate, Rhythm, No Murmur Extremity: Pedal Edema (but improved from yesterday less tight 2+ bilaterally to at least calves) Neurologic/Psychiatric: Alert, Oriented x3 Results/Procedures Lab Laboratory Tests 05/13/22 08:23 05/14/22 03:31 Patient resulted labs reviewed. Imaging: Reviewed Imaging Report Assessment/Plan Assessment and Plan Assess & Plan/Chief Complaint Acute kidney injury superimposed on chronic kidney disease Stage 4 Acute on chronic hypoxic respiratory failure CHF exacerbation Fluid overload Acute respiratory failure with hypoxia Creatinine up slightly today but still close to baseline UOP for negative 65mL as record plus maybe another 1L not record as stated above Cardiology consulted, appreciate recs Discussed with Dr Amber William, nephrology, who will attempt to establish care with patient on 05/18 T2DM Sliding scale insulin HTN HLD Morbid obesity Continue home meds DVT ppx: Heparin Diagnosis/Problems Diagnosis/Problems (1) Anasarca Status: Acute (2) Acute kidney injury superimposed on chronic kidney disease Status: Acute (3) CHF exacerbation Status: Acute Qualifiers: Heart failure type: combined systolic and diastolic Qualified Codes: I50 .43 - Acute on chronic combined systolic (congestive) and diastolic (congestive) heart failure (4) T2DM (type 2 diabetes mellitus) Status: Chronic (5) HLD (hyperlipidemia) Status: Chronic (6) HTN (hypertension) Status: Chronic (7) Pulmonary edema Status: Acute (8) Morbid obesity Status: Chronic (9) Fluid overload Status: Acute SHAYNA MARTIN MD May 14, 2022 06:11
[2022-05-14 08:00] VITALS: BP 165/88
[2022-05-14] MEDS: amLODIPine 5 MG (NORVASC) TAB PO SCH (08:06)
[2022-05-14] MEDS: GABAPENTIN 300 MG (NEURONTIN) CAP PO SCH ×3 (08:06→21:33)
[2022-05-14] MEDS: FUROSEMIDE 40 MG/4 ML INJ (LASIX) IVP SCH ×2 (08:06→16:08)
[2022-05-14] MEDS: meTOprolol TARTRATE 50 MG (LOPRESSOR) TAB PO SCH ×2 (08:06→21:33)
[2022-05-14] MEDS: hydrALAZINE (APRESOLINE) 25 MG TAB PO SCH ×3 (08:06→21:33)
[2022-05-14] MEDS: VITAMIN D3 25 MCG (1,000 UNITS) TABLET PO SCH (08:07)
[2022-05-14 12:00] VITALS: BP 151/90
[2022-05-14] MEDS ORDERED: ACETAMINOPHEN 500 MG TAB (TYLENOL) PO PRN (12:00)
--- NOTE | 2022-05-14 12:40 | Cardiology Progress Note ---
Subjective Date Seen by Provider: May 14, 2022 Time Seen by Provider: 12:39 Subjective/Events-last exam Patient was seen at bedside, laying down comfortably, feeling better. Review of Systems General: No Chills, No Night Sweats; Fatigue; No Malaise, No Appetite, No Other HEENT: No Head Aches, No Visual Changes, No Eye Pain, No Ear Pain, No Dysphasia, No Sinus Congestion, No Post Nasal Drip, No Sore Throat, No Other Pulmonary: Dyspnea; No Cough, No Pleuritic Chest Pain, No Other Cardiovascular: Edema; No: Chest Pain, Palpitations, Orthopnea, Paroxysmal Noc. Dyspnea, Lt Headedness, Other Objective-Cardiology Exam Last Set of Vital Signs Vital Signs 05/13/22 05/14/22 05/14/22 05/14/22 05/14/22 20:00 04:00 07:00 08:00 09:03 Temp 36.6 Pulse 68 Resp 18 B/P (MAP) 162/85 (110) Pulse Ox 92 O2 Delivery Nasal Cannula O2 Flow Rate 2.00 I&O Intake and Output 05/14/22 00:00 Intake Total 1400 ml Output Total 1425 ml Balance -25 ml Intake Oral 1400 ml Output Urine Total 1425 ml # Voids 2 # Bowel Movements 2 General: Alert, Oriented X3, Cooperative HEENT: Atraumatic, PERRLA Neck: Supple, No JVD, No Thyromegaly Lungs: Clear to Auscultation, Normal Air Movement Heart: Regular Rate, Normal S1, Normal S2, Other (Systolic murmur at the left sternal border,) Abdomen: Normal Bowel Sounds, Soft, No Tenderness, No Hepatosplenomegaly, No Masses Extremities: No Clubbing, No Cyanosis, Normal Pulses, No Tenderness/Swelling, Other (Peripheral edema) Skin: No Rashes, No Breakdown, No Significant Lesion Neuro: Normal Gait, Normal Speech, Strength at 5/5 X4 Ext, Normal Tone, Sensation Intact Psych/Mental Status: Mental Status NL, Mood NL Results Lab Laboratory Tests 05/14/22 03:31 A/P-Cardiology Admission Diagnosis Acute on chronic kidney disease Anasarca Acute on chronic CHF CAD Assessment/Plan Acute on chronic renal insufficiency, has seen nephrology in the past, but none recently. Continue to monitor renal function closely. Dr. Amber Irene consulted. Responding well to diuretics. Discussed with femi Sanders for discharge and follow-up as an outpatient. Peripheral edema, anasarca, responding well to diuretics Start to have deterioration in renal function. Will back down on diuretics and monitor tolerance and response Femi for discharge and follow-up as an outpatient Acute on chronic CHF, LV systolic dysfunction. Most recent 2D Echo done Apr 2021 showing EF 45%, mild diffuse hypokinesia, grade 2 diastolic dysfunction, severely dilated left atrium, Aortic valve sclerosis without stenosis, PA 45- 50mmHg. Continue to diurese. Unable to tolerate CAMILLA-I or ARB d/t underlying kidney function. 2D echo was done on May 12, 2022 with normal left ventricular size, ejection fraction 50 to 55%, grade 2 diastolic dysfunction, dilated left atrium, PA pressure 40 to 45 mmHg. Continue with diuresis and monitor tolerance and response Palpitations, reporting improvement. Holter monitor showed sinus rhythm with o ccasional atrial premature contraction, occasional PVCs and ventricular bigeminy, short run of paroxysmal atrial tachycardia total of 4 beats. Currently controlled well. Continue to monitor Coronary artery disease Status post stenting to the mid LAD using 3.018 mm Alpine stent expanded to 3.25 done in June 2017. Cardiac catheterization done in October 2018 showing patent stent in the mid LAD with moderate disease at the proximal and distal portion of the artery, had BMW wire placed across the LAD that straightened the LAD and the area looked better, at 60-70 percent proximal first obtuse marginal disease that did not change compared to the study of 2018, 50 percent distal right coronary artery. Continue to monitor. Will consider stress test as outpatient. Carotid artery stenosis-mild nonobstructive disease per carotid duplex done November 2018, continue to monitor. Diabetes mellitus, managed by Dr. Younger. Diabetic neuropathy, followed and managed by [facility] Hypertension, good control, continue to monitor Hyperlipidemia, intolerant to Lipitor with severe diarrhea, lipid profile done on October 11, 2018 showing total cholesterol 116, triglyceride 136, HDL 29, LDL 56. I will reevaluate lipid profile. History of erectile dysfunction, most likely secondary to peripheral neuropathy. Lower extremity pain, likely secondary to neuropathy, patient underwent peripheral angiogram done February 09, 2016 revealing mild to moderate disease in the anterior tibial of the left lower extremity and posterior tibial at 60-70 percent. Anterior tibial with good flow down to the ankle on the left lower extremity, otherwise mild disease in the right lower extremity and abdominal aorta. AILYN is normal Depression, Anxiety, lost his 17 years old son who drowned in summer 2018 KAREN YANG MD May 14, 2022 12:40
[2022-05-14 16:00] VITALS: BP 157/84
[2022-05-14 20:03] VITALS: BP 185/88
[2022-05-14] MEDS: ROSUVASTATIN 5 MG (CRESTOR) TABLET PO SCH (21:33)
[2022-05-14 23:24] VITALS: BP 158/76
[2022-05-15 03:30] VITALS: BP 150/70
[2022-05-15 06:11] LABS: HEMATOCRIT 36 % (40-54); HEMOGLOBIN 10.4 g/dL (13.3-17.7); MEAN CORPUSCULAR HEMOGLOBIN 24 pg (25-34); MEAN CORPUSCULAR HGB CONC 29 g/dL (32-36); MEAN CORPUSCULAR VOLUME 83 fL (80-99); MEAN PLATELET VOLUME 11.2 fL (9.0-12.2); PLATELET COUNT 154 10^3/uL (130-400); WHITE BLOOD COUNT 8.9 10^3/uL (4.3-11.0)
[2022-05-15 06:27] LABS: CALCIUM 8.4 MG/DL (8.5-10.1); CREATININE SERUM 4.28 MG/DL (0.60-1.30)
[2022-05-15] MEDS: FUROSEMIDE 40 MG/4 ML INJ (LASIX) IVP SCH (06:34)
[2022-05-15] MEDS: inSUlin ASPART (NovoLOG) 1 UNIT/0.01 ML (CHARGE PER UNIT) SC SCH ×4 (06:38→21:36)
[2022-05-15 07:18] VITALS: BP 155/77
[2022-05-15] MEDS: meTOprolol TARTRATE 50 MG (LOPRESSOR) TAB PO SCH ×2 (09:07→21:35)
[2022-05-15] MEDS: hydrALAZINE (APRESOLINE) 25 MG TAB PO SCH ×3 (09:07→21:35)
[2022-05-15] MEDS: GABAPENTIN 300 MG (NEURONTIN) CAP PO SCH ×3 (09:07→21:35)
[2022-05-15] MEDS: amLODIPine 5 MG (NORVASC) TAB PO SCH (09:07)
[2022-05-15] MEDS: VITAMIN D3 25 MCG (1,000 UNITS) TABLET PO SCH (09:07)
--- NOTE | 2022-05-15 11:08 | Progress Note - Hospitalist ---
Subjective HPI/CC On Admission Date Seen by Provider: May 15, 2022 Pt is 57yoCM with a PMH of CHF, Acute on CKD, NIDDMII, HTN who presented to the ER due to swelling. He states he struggles with swelling always but for the past month or so it has gotten worse. He has been taking his medications as prescribed but continued to worsen prompting him to seek evaluation in the ER. He was admitted roughly 1 year ago with similar and states he had 30lbs taking off of him with diuretics. He believes he is up 40lbs currently with the extra fluid. He was admitted for IV Lasix and diuresis. He was also mildly hypoxic requiring 2lpm. Subjective/Events-last exam Pt reports feeling ok but still swollen and tired. States he was up a lot last night. Objective Exam Vital Signs Vital Signs Date Time Temp Pulse Resp B/P (MAP) Pulse Ox O2 Delivery O2 Flow Rate FiO2 05/15/22 08:00 Nasal Cannula 4.00 05/15/22 07:18 36.6 72 16 155/77 (103) 90 Capillary Refill : General Appearance: No Apparent Distress, Chronically ill, Obese Respiratory: Lungs Clear, No Respiratory Distress Cardiovascular: Regular Rate, Rhythm, No Murmur Extremity: Pedal Edema, Swelling Neurologic/Psychiatric: Alert, Oriented x3 Results/Procedures Lab Laboratory Tests 05/15/22 06:05 Patient resulted labs reviewed. Imaging: Reviewed Imaging Report Assessment/Plan Assessment and Plan Assess & Plan/Chief Complaint Acute kidney injury superimposed on chronic kidney disease Stage 4 Acute on chronic hypoxic respiratory failure CHF exacerbation Fluid overload Acute respiratory failure with hypoxia Continue on IV Lasix- hold PM dose due to increased creatinine Cardiology consulted, appreciate recs Monitor intake and output- not collecting all of his urine Discussed with Dr Amber William, nephrology, on admission who will attempt to establish care with patient on 05/18 Creatinine continues to rise but making urine and not hyperkalemic or acidotic- trend T2DM Sliding scale insulin HTN HLD Morbid obesity Continue home meds DVT ppx: Heparin Diagnosis/Problems Diagnosis/Problems (1) Anasarca Status: Acute (2) Acute kidney injury superimposed on chronic kidney disease Status: Acute (3) CHF exacerbation Status: Acute Qualifiers: Heart failure type: combined systolic and diastolic Qualified Codes: I50.43 - Acute on chronic combined systolic (congestive) and diastolic (esme estive) heart failure (4) T2DM (type 2 diabetes mellitus) Status: Chronic (5) HLD (hyperlipidemia) Status: Chronic (6) HTN (hypertension) Status: Chronic (7) Pulmonary edema Status: Acute (8) Morbid obesity Status: Chronic (9) Fluid overload Status: Acute SHAYNA MARTIN MD May 15, 2022 11:08 am
[2022-05-15 11:42] VITALS: BP 148/72
--- NOTE | 2022-05-15 13:31 | Progress Note - Cardiology ---
Cardiology SOAP Progress Note Subjective: On BiPAP Not very communicative Does not report cp or palp or syncope Chronic shortness of breath Chronic leg swelling Does not report n/v/d Does not report focal weakness Objective: I&O/Vital Signs 05/15/22 05/15/22 05/15/22 05/15/22 03:30 07:18 08:00 11:42 Temp 37.0 36.6 36.6 Pulse 67 72 65 Resp 22 16 18 B/P (MAP) 150/70 (96) 155/77 (103) 148/72 (97) Pulse Ox 91 90 91 O2 Delivery Nasal Cannula Nasal Cannula Nasal Cannula Nasal Cannula O2 Flow Rate 4.00 4.50 4.00 4.50 4.00 05/15/22 00:00 Intake Total 1550 ml Output Total 500 ml Balance 1050 ml Weight (Pounds): 288 Weight (Ounces): 0.0 Weight (Calculated Kilograms): [phone] Constitutional: well-developed, well-nourished, other (on BiPAP, not very communicative) Respiratory: No accessory muscle use; other (fair bilat air entry, diminished at the bases, prolonged exp) Cardiovascular: regular rate-rhythm, S1 and S2, systolic murmur (soft KYLE at card base) Gastrointestional: No tender; soft; No guarding, No rebound; audible bowel cheikh nds Extremities: swelling (moderate, bilateral leg swelling); No cyanosis Neurologic/Psychiatric: other (moves all limbs equally) Skin: No rash on exposed areas, No ulcerations on exposed areas Results/Procedures: Labs Laboratory Tests 05/14/22 15:45: Glucometer 244H 05/14/22 20:06: Glucometer 250H 05/15/22 05:19: Glucometer 182H 05/15/22 06:05: White Blood Count 8.9, Red Blood Count 4.38, Hemoglobin 10.4L, Hematocrit 36L, Mean Corpuscular Volume 83, Mean Corpuscular Hemoglobin 24L, Mean Corpuscular Hemoglobin Concent 29L, Red Cell Distribution Width 16.7H, Platelet Count 154, Mean Platelet Volume 11.2, Sodium Level 139, Potassium Level 5.0, Chloride Level 103, Carbon Dioxide Level 22, Anion Gap 14, Blood Urea Nitrogen 119*H, Creatinine 4.28#H, Estimat Glomerular Filtration Rate 15, BUN/Creatinine Ratio 28, Glucose Level 178H, Calcium Level 8.4L Laboratory Tests 05/14/22 03:31 05/15/22 06:05 A/P: Assessment: Worsening of renal failure - Acute on chronic renal insufficiency Peripheral edema Chronic systolic and diastolic CHF - 2D Echo done Apr 2021 showing EF 45%, mild diffuse hypokinesia, grade 2 diastolic dysfunction, severely dilated left atrium, aortic valve sclerosis without stenosis, PA 45-50mmHg - 2D echo was done on May 12, 2022: normal left ventricular size, ejection fraction 50 to 55%, grade 2 diastolic dysfunction, dilated left atrium, PA pressure 40 to 45 mmHg. H/o palpitations due to atrial premature contraction, occasional PVCs and ventricular bigeminy and short run of paroxysmal atrial tachycardia. Currently controlled well Coronary artery disease - Status post stenting to the mid LAD using 3.018 mm Alpine stent expanded to 3.25 done in June 2017. - Cardiac catheterization done in October 2018 (Dr Perez) showing patent stent in the mid LAD with moderate disease at the proximal and distal portion of the artery, had BMW wire placed across the LAD that straightened the LAD and the ar ea looked better, 60-70 percent proximal first obtuse marginal disease that did not change compared to the study of 2018, 50 percent distal right coronary artery Carotid artery stenosis-mild nonobstructive disease per carotid duplex done November 2018, Dr Perez monitoring Diabetes mellitus, managed by pcp Diabetic neuropathy, followed and managed by pcp Hypertension - fair control Hyperlipidemia - intolerant to Lipitor with severe diarrhea. Dr Perez managing History of erectile dysfunction, most likely secondary to peripheral neuropathy. Lower extremity pain, likely secondary to neuropathy, patient underwent peripheral angiogram done February 09, 2016 revealing mild to moderate disease in the anterior tibial of the left lower extremity and posterior tibial at 60-70 percent. Anterior tibial with good flow down to the ankle on the left lower extremity, otherwise mild disease in the right lower extremity and abdominal aorta. AILYN is normal Plan: * Complex management due to multiple comorbidities * Renal function is worse. Diuretics are likely contributing * Hold diuretics. Resume in a lower dose when renal function improves * Monitor labs closely LORAINE POST MD [facility] May 15, 2022 13:31
[2022-05-15 16:14] VITALS: BP 126/58
[2022-05-15 19:42] VITALS: BP 160/73
[2022-05-15] MEDS: ROSUVASTATIN 5 MG (CRESTOR) TABLET PO SCH (21:35)
[2022-05-15 23:28] VITALS: BP 148/66
[2022-05-16 04:05] VITALS: BP 143/65
[2022-05-16] MEDS: inSUlin ASPART (NovoLOG) 1 UNIT/0.01 ML (CHARGE PER UNIT) SC SCH ×4 (06:49→21:21)
[2022-05-16 08:09] VITALS: BP 155/66
[2022-05-16] MEDS: hydrALAZINE (APRESOLINE) 25 MG TAB PO SCH ×3 (08:22→21:20)
[2022-05-16] MEDS: amLODIPine 5 MG (NORVASC) TAB PO SCH (08:22)
[2022-05-16] MEDS: meTOprolol TARTRATE 50 MG (LOPRESSOR) TAB PO SCH ×2 (08:22→21:20)
[2022-05-16] MEDS: GABAPENTIN 300 MG (NEURONTIN) CAP PO SCH ×3 (08:22→21:19)
[2022-05-16] MEDS: VITAMIN D3 25 MCG (1,000 UNITS) TABLET PO SCH (08:23)
[2022-05-16 10:30] LABS: HEMATOCRIT 36 % (40-54); HEMOGLOBIN 10.4 g/dL (13.3-17.7); MEAN CORPUSCULAR HEMOGLOBIN 24 pg (25-34); MEAN CORPUSCULAR HGB CONC 29 g/dL (32-36); MEAN CORPUSCULAR VOLUME 83 fL (80-99); MEAN PLATELET VOLUME 10.9 fL (9.0-12.2); PLATELET COUNT 145 10^3/uL (130-400); WHITE BLOOD COUNT 9.1 10^3/uL (4.3-11.0)
[2022-05-16 10:37] LABS: POTASSIUM 5.6 MMOL/L (3.6-5.0)
[2022-05-16 10:38] LABS: CALCIUM 8.2 MG/DL (8.5-10.1)
[2022-05-16 10:42] LABS: CREATININE SERUM 5.01 MG/DL (0.60-1.30)
[2022-05-16 11:21] VITALS: BP 147/63
--- NOTE | 2022-05-16 11:57 | Progress Note - Hospitalist ---
Subjective HPI/CC On Admission Date Seen by Provider: May 16, 2022 Pt is 57yoCM with a PMH of CHF, Acute on CKD, NIDDMII, HTN who presented to the ER due to swelling. He states he struggles with swelling always but for the past month or so it has gotten worse. He has been taking his medications as prescribed but continued to worsen prompting him to seek evaluation in the ER. He was admitted roughly 1 year ago with similar and states he had 30lbs taking off of him with diuretics. He believes he is up 40lbs currently with the extra fluid. He was admitted for IV Lasix and diuresis. He was also mildly hypoxic requiring 2lpm. Subjective/Events-last exam Creatinine continues to rise. Discussed potential need for HD and he states he would not want this but would like time to think about it. He states he would do it if it were only 1 times per week but not otherwise. He also has been refusing insulin but does agree to taking it now. Declines transfer for HD evaluation at this time. Objective Exam Vital Signs Vital Signs Date Time Temp Pulse Resp B/P (MAP) Pulse Ox O2 Delivery O2 Flow Rate FiO2 05/16/22 11:21 36.6 63 18 147/63 (91) 94 Nasal Cannula 4.00 Capillary Refill : General Appearance: No Apparent Distress, Chronically ill, Obese Respiratory: Lungs Clear, No Respiratory Distress Cardiovascular: Regular Rate, Rhythm, No Murmur Gastrointestinal: Normal Bowel Sounds, Non Tender, Soft Extremity: Pedal Edema, Swelling Neurologic/Psychiatric: Alert, Oriented x3 Results/Procedures Lab Laboratory Tests 05/16/22 10:20 Patient resulted labs reviewed. Imaging: Reviewed Imaging Report Assessment/Plan Assessment and Plan Assess & Plan/Chief Complaint Acute kidney injury superimposed on chronic kidney disease Stage 4 Acute on chronic hypoxic respiratory failure CHF exacerbation Fluid overload Acute respiratory failure with hypoxia Lasic held for rising creatinine Cardiology consulted, appreciate recs Monitor intake and output- not collecting all of his urine Discussed with Dr Amber William, nephrology, on admission who will attempt to establish care with patient on 05/18 Creatinine continues to rise and mildly hyperkalemic today but still making urine and not acidotic- trend May need HD if continues to worsen- he is planning to think about whether or not this would be tolerable T2DM Sliding scale insulin Has been refusing- agrees to it today HTN HLD Morbid obesity Continue home meds as able DVT ppx: Heparin Diagnosis/Problems Diagnosis/Problems (1) Anasarca Status: Acute (2) Acute kidney injury superimposed on chronic kidney disease Status: Acute (3) CHF exacerbation Status: Acute Qualifiers: Heart failure type: combined systolic and diastolic Qualified Codes: I50.43 - Acute on chronic combined systolic (congestive) and diastolic (congestive) heart failure (4) T2DM (type 2 diabetes mellitus) Status: Chronic (5) HLD (hyperlipidemia) Status: Chronic (6) HTN (hypertension) Status: Chronic (7) Pulmonary edema Status: Acute (8) Morbid obesity Status: Chronic (9) Fluid overload Status: Acute SHAYNA MARTIN MD May 16, 2022 11:57
[2022-05-16] MEDS ORDERED: SODIUM POLYSTYRENE POWDER 15 GM BOTTLE PO NR (12:15)
[2022-05-16 15:16] VITALS: BP 150/69
--- NOTE | 2022-05-16 19:16 | Progress Note - Cardiology ---
Cardiology SOAP Progress Note Subjective: No cp or palp or syncope No shortness of breath at rest Gen weakness present No n/v/d No focal weakness Objective: I&O/Vital Signs 05/16/22 05/16/22 05/16/22 05/16/22 08:00 08:09 11:21 13:25 Temp 36.6 36.6 Pulse 64 63 62 Resp 18 18 B/P (MAP) 155/66 (95) 147/63 (91) Pulse Ox 94 94 O2 Delivery Nasal Cannula Nasal Cannula Nasal Cannula O2 Flow Rate 5.00 4.00 4.00 05/16/22 15:16 Temp 37.1 Pulse 63 Resp 20 B/P (MAP) 150/69 (96) Pulse Ox 91 O2 Delivery Nasal Cannula O2 Flow Rate 5.00 05/16/22 00:00 Intake Total 710 ml Output Total 475 ml Balance 235 ml Weight (Pounds): 288 Weight (Ounces): 0.0 Weight (Calculated Kilograms): [phone] Constitutional: AAO x 3, well-developed, well-nourished Respiratory: No accessory muscle use; other (fair bilat air entry, diminished at the bases, prolonged exp) Cardiovascular: regular rate-rhythm, S1 and S2, systolic murmur (soft KYLE at card base) Gastrointestional: No tender; soft; No guarding, No rebound; audible bowel sounds Extremities: swelling (moderate, bilateral leg swelling); No cyanosis Neurologic/Psychiatric: other (moves all limbs equally) Skin: No rash on exposed areas, No ulcerations on exposed areas Results/Procedures: Labs Laboratory Tests 05/15/22 20:33: Glucometer 236H 05/16/22 06:48: Glucometer 195H 05/16/22 10:20: White Blood Count 9.1, Red Blood Count 4.33, Hemoglobin 10.4L, Hematocrit 36L, Mean Corpuscular Volume 83, Mean Corpuscular Hemoglobin 24L, Mean Corpuscular Hemoglobin Concent 29L, Red Cell Distribution Width 16.8H, Platelet Count 145, Mean Platelet Volume 10.9, Sodium Level 136, Potassium Level 5.6H, Chloride Level 100, Carbon Dioxide Level 21, Anion Gap 15H, Blood Urea Nitrogen 127*H, Creatinine 5.01#H, Estimat Glomerular Filtration Rate 13, BUN/Creatinine Ratio 25, Glucose Level 258H, Calcium Level 8.2L 05/16/22 15:21: Glucometer 214H Laboratory Tests 05/15/22 06:05 05/16/22 10:20 A/P: Assessment: Worsening of renal failure - Acute on chronic renal insufficiency Peripheral edema Chronic systolic and diastolic CHF - 2D Echo done Apr 2021 showing EF 45%, mild diffuse hypokinesia, grade 2 diastolic dysfunction, severely dilated left atrium, aortic valve sclerosis without stenosis, PA 45-50mmHg - 2D echo was done on May 12, 2022: normal left ventricular size, ejection fraction 50 to 55%, grade 2 diastolic dysfunction, dilated left atrium, PA pressure 40 to 45 mmHg. H/o palpitations due to atrial premature contraction, occasional PVCs and ventricular bigeminy and short run of paroxysmal atrial tachycardia. Currently controlled well Coronary artery disease - Status post stenting to the mid LAD using 3.018 mm Alpine stent expanded to 3.25 done in June 2017. - Cardiac catheterization done in October 2018 (Dr Perez) showing patent stent in the mid LAD with moderate disease at the proximal and distal portion of the artery, had BMW wire placed across the LAD that straightened the LAD and the area looked better, 60-70 percent proximal first obtuse marginal disease that did not change compared to the study of 2018, 50 percent distal right coronary artery Carotid artery stenosis-mild nonobstructive disease per carotid duplex done November 2018, Dr Perez monitoring Diabetes mellitus, managed by pcp Diabetic neuropathy, followed and managed by pcp Hypertension - fair control Hyperlipidemia - intolerant to Lipitor with severe diarrhea. Dr Perez managing History of erectile dysfunction, most likely secondary to peripheral neuropathy. Lower extremity pain, likely secondary to neuropathy, patient underwent peripheral angiogram done February 09, 2016 revealing mild to moderate disease in the anterior tibial of the left lower extremity and posterior tibial at 60-70 percent. Anterior tibial with good flow down to the ankle on the left lower extremity, otherwise mild disease in the right lower extremity and abdominal aorta. AILYN is normal Plan: * Complex management due to multiple comorbidities * Hold diuretics. Resume in a lower dose when renal function improves * Monitor labs closely * Dr Ramachandran is managing patient's renal failure and hyperkalemia LORAINE POST MD FACP FAC [facility] May 16, 2022 19:16
[2022-05-16 19:41] VITALS: BP 164/87
[2022-05-16] MEDS: ROSUVASTATIN 5 MG (CRESTOR) TABLET PO SCH (21:20)
[2022-05-17 00:20] VITALS: BP 155/76
[2022-05-17 03:46] VITALS: BP 145/70
[2022-05-17] MEDS: inSUlin ASPART (NovoLOG) 1 UNIT/0.01 ML (CHARGE PER UNIT) SC SCH ×4 (06:04→21:31)
[2022-05-17 06:15] LABS: HEMATOCRIT 35 % (40-54); MEAN CORPUSCULAR HEMOGLOBIN 24 pg (25-34); MEAN CORPUSCULAR HGB CONC 29 g/dL (32-36); MEAN CORPUSCULAR VOLUME 82 fL (80-99); MEAN PLATELET VOLUME 11.1 fL (9.0-12.2); PLATELET COUNT 142 10^3/uL (130-400); WHITE BLOOD COUNT 8.3 10^3/uL (4.3-11.0)
[2022-05-17 06:23] LABS: POTASSIUM 5.3 MMOL/L (3.6-5.0)
[2022-05-17 06:24] LABS: CALCIUM 8.2 MG/DL (8.5-10.1)
[2022-05-17 06:29] LABS: CREATININE SERUM 5.46 MG/DL (0.60-1.30)
[2022-05-17 08:00] VITALS: BP 138/71
--- NOTE | 2022-05-17 09:09 | Cardiology Progress Note ---
Subjective Date Seen by Provider: May 17, 2022 Time Seen by Provider: 08:30 Subjective/Events-last exam 57 year old male was awake and alert in bed this morning when spoken to. His Lasix was held yesterday for worsening Kidney function. Cr today is 5.46 which is worsened from 5.01. He continues to have generalized fatigue and SOB. He is not having CP or palpitations at this time. Discussed the need to get Nephrology involved given his current kidney function which he is agreeable to. Review of Systems General: No Chills; Fatigue, Appetite HEENT: No Head Aches, No Visual Changes Pulmonary: Dyspnea; No Cough Cardiovascular: No: Chest Pain, Palpitations Gastrointestinal: Diarrhea; No: Nausea, Vomiting Genitourinary: No Dysuria Neurological: No: Weakness, Numbness Objective-Cardiology Exam Last Set of Vital Signs Vital Signs 05/17/22 05/17/22 08:00 09:15 Temp 37.3 Pulse 65 Resp 20 B/P (MAP) 138/71 (93) Pulse Ox 90 O2 Delivery NIV CPAP O2 Flow Rate 4.50 I&O Intake and Output 05/17/22 00:00 Intake Total 1290 ml Balance 1290 ml Intake Oral 1290 ml # Voids 6 # Bowel Movements 4 General: Alert, Oriented X3, Cooperative HEENT: Atraumatic, PERRLA Neck: Supple, No JVD, No Thyromegaly Lungs: Clear to Auscultation, Normal Air Movement Heart: Regular Rate, Normal S1, Normal S2, Other (Systolic murmur at the left sternal border,) Abdomen: Normal Bowel Sounds, Soft, No Tenderness, No Hepatosplenomegaly, No Masses Extremities: No Clubbing, No Cyanosis, Normal Pulses, No Tenderness/Swelling, Other (Peripheral edema) Skin: No Rashes, No Breakdown, No Significant Lesion Neuro: Normal Speech, Normal Tone, Sensation Intact Psych/Mental Status: Mental Status NL, Mood NL Results Lab Laboratory Tests 05/17/22 05:30 A/P-Cardiology Admission Diagnosis Acute on chronic kidney disease Anasarca Acute on chronic CHF CAD Assessment/Plan Acute on chronic renal insufficiency, has seen nephrology in the past, but none recently. Kidney function continues to worsen. Cr today of 5.46 which is worse than 5.01 on 05/16. GFR at this time is 13. His Cr was 3.59 and GFR was 19 upon admission. Diuretics held due to worsening kidney function at this time. Continue low sodium diet and fluid restriction. I have consulted with Dr. Chad William, discussed the management plan, she has recommended transferring him to [facility] for dialysis. Will continue to monitor and I have visited with Dr. Maldonado Hyperkalemia K+ was 5.3 today, which is improved from 5.6 yesterday. Patient is on Insulin at this time for Diabetes. Will consult nephrology and try to avoid dialysis if possible. Peripheral edema, anasarca Minimally improved since admission. Diuretics held at this time until improvement in kidney function Acute on chronic CHF, LV systolic dysfunction. Most recent 2D Echo done Apr 2021 showing EF 45%, mild diffuse hypokinesia, grade 2 diastolic dysfunction, severely dilated left atrium, Aortic valve sclerosis without stenosis, PA 45- 50mmHg. Needs Diuresed but holding at this time given kidney function. Unable to tolerate CAMILLA-I or ARB d/t underlying kidney function. 2D echo was done on May 12, 2022 with normal left ventricular size, ejection fraction 50 to 55%, grade 2 diastolic dysfunction, dilated left atrium, PA pressure 40 to 45 mmHg. Hypertension Minimally elevated on amlodipine 10mg QD and hydralazine 50mg TID. Monitor for now. Coronary artery disease Status post stenting to the mid LAD using 3.018 mm Alpine stent expanded to 3.25 done in June 2017. Cardiac catheterization done in October 2018 showing patent stent in the mid LAD with moderate disease at the proximal and distal portion of the artery, had BMW wire placed across the LAD that straightened the LAD and the area looked better, at 60-70 percent proximal first obtuse marginal disease that did not change compared to the study of 2018, 50 percent distal right coronary artery. Continue to monitor. Will consider stress test as outpatient. Carotid artery stenosis-mild nonobstructive disease per carotid duplex done November 2018, continue to monitor. Diabetes mellitus, managed by Dr. Younger. Diabetic neuropathy, followed and managed by [facility] Hyperlipidemia, intolerant to Lipitor with severe diarrhea, lipid profile done on October 11, 2018 showing total cholesterol 116, triglyceride 136, HDL 29, LDL 56. On Crestor 5mg QD at this time. History of erectile dysfunction, most likely secondary to peripheral neuropathy. Lower extremity pain, likely secondary to neuropathy, patient underwent peripheral angiogram done February 09, 2016 revealing mild to moderate disease in the anterior tibial of the left lower extremity and posterior tibial at 60-70 percent. Anterior tibial with good flow down to the ankle on the left lower extremity, otherwise mild disease in the right lower extremity and abdominal aorta. AILYN is normal Depression, Anxiety, lost his 17 years old son who drowned in summer 2018 Supervisory-Addendum Brief Verification & Attestation Participated in pt care: history, MDM, physical Personally performed: exam, history, MDM, supervision of care Care discussed with: Medical Student Procedures: n/a Results interpretation: Verified all documentation Verification and Attestation of Medical Student E/M Service A medical student performed and documented this service in my presence. I reviewed and verified all information documented by the medical student and made modifications to such information, when appropriate. I personally performed the physical exam and medical decision making. 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 Joel Perez, May 17, 2022,10:37 JENNIFER MCNULTY May 17, 2022 09:09 KAREN PEREZ MD May 17, 2022 10:38
[2022-05-17] MEDS: hydrALAZINE (APRESOLINE) 25 MG TAB PO SCH ×3 (09:21→20:02)
[2022-05-17] MEDS: amLODIPine 5 MG (NORVASC) TAB PO SCH (09:21)
[2022-05-17] MEDS: meTOprolol TARTRATE 50 MG (LOPRESSOR) TAB PO SCH ×2 (09:21→20:02)
[2022-05-17] MEDS: VITAMIN D3 25 MCG (1,000 UNITS) TABLET PO SCH (09:21)
[2022-05-17] MEDS: GABAPENTIN 300 MG (NEURONTIN) CAP PO SCH ×3 (09:21→20:02)
[2022-05-17 12:00] VITALS: BP 161/74
--- NOTE | 2022-05-17 12:19 | Progress Note - Hospitalist ---
HOLLIE KERR MED STUDENT 05/17/22 1219: Subjective HPI/CC On Admission Date Seen by Provider: May 17, 2022 Time Seen by Provider: 12:10 Pt is 57yoCM with a PMH of CHF, Acute on CKD, NIDDMII, HTN who presented to the ER due to swelling. He states he struggles with swelling always but for the past month or so it has gotten worse. He has been taking his medications as prescribed but continued to worsen prompting him to seek evaluation in the ER. He was admitted roughly 1 year ago with similar and states he had 30lbs taking off of him with diuretics. He believes he is up 40lbs currently with the extra fluid. He was admitted for IV Lasix and diuresis. He was also mildly hypoxic requiring 2lpm. Subjective/Events-last exam Pt being seen on hospitalist service for Anasarca and CKD. Pt is alert and oriented x3. There was concern for C. diff precautions, but pt denies diarrhea recently and has been on kayexalate for hyperkalemia. Lasix have been stopped d/t worsening kidney function. Discussed that transfer to a hospital with hemodialysis would be the best option for the pt and he is agreeable to this plan. Will work on transferring pt today. Review of Systems General: No Chills; Fatigue HEENT: No Head Aches, No Visual Changes Pulmonary: No Dyspnea, No Cough Cardiovascular: No: Chest Pain, Palpitations Gastrointestinal: No: Nausea, Vomiting Genitourinary: No Dysuria, No Frequency; Other (oliguria) Musculoskeletal: No: back pain, leg pain Neurological: Weakness; No: Numbness, Confusion Objective Exam Vital Signs Vital Signs Date Time Temp Pulse Resp B/P (MAP) Pulse Ox O2 Delivery O2 Flow Rate FiO2 05/17/22 09:15 90 NIV CPAP 4.50 05/17/22 08:00 37.3 65 20 138/71 (93) Capillary Refill : General Appearance: No Apparent Distress, Obese HEENT: PERRL/EOMI, Moist Mucous Membranes Neck: Full Range of Motion, Normal Inspection Respiratory: Chest Non Tender, Lungs Clear, Normal Breath Sounds, No Accessory Muscle Use, No Respiratory Distress Cardiovascular: Regular Rate, Rhythm, No Murmur Gastrointestinal: Normal Bowel Sounds, Non Tender Extremity: Non Tender, Pedal Edema, Other (2+ pitting edema to mid abdomen) Neurologic/Psychiatric: Alert, Oriented x3, Depressed Affect Skin: Normal Color, Warm/Dry Results/Procedures Lab Laboratory Tests 05/17/22 05:30 Patient resulted labs reviewed. Imaging: Reviewed Imaging Report Assessment/Plan Assessment and Plan Assess & Plan/Chief Complaint FRANCISCA on CKD Stage 4 -Lasix held d/t worsening renal function -Strict I/Os d/t poor urine output -Working on transfer to facility with hemodialysis -BUN/Cr 137 and 5.46 respectively Acute on chronic respiratory failure -5L via NC with adequate oxygen saturations CHF exacerbation -Echo showed EF 50-55%. Anasarca -Improved with lasix T2DM -SSI HTN HLD Morbid obesity DVT ppx: heparin Code Status: DNR Disposition: Will work on transferring pt to a hospital with hemodialysis. Diagnosis/Problems Diagnosis/Problems (1) CKD (chronic kidney disease), stage IV Status: Chronic (2) CHF (congestive heart failure) Status: Acute (3) FRANCISCA (acute kidney injury) Status: Acute (4) Respiratory failure Status: Acute Qualifiers: Qualified Codes: J96.21 - Acute and chronic respiratory failure with hypoxia (5) Anasarca Status: Acute (6) Morbid obesity Status: Chronic (7) HTN (hypertension) Status: Chronic (8) HLD (hyperlipidemia) Status: Chronic (9) T2DM (type 2 diabetes mellitus) Status: Chronic Qualifiers: CHARLIE SHEEHAN MD 05/17/22 1829: Subjective HPI/CC On Admission Time Seen by Provider: 10:45 Assessment/Plan Assessment and Plan Assess & Plan/Chief Complaint Admitted with FRANCISCA on CKD. Renal function continues to worsen. Very close to requiring hemodialysis. Begin transfer process for impending hemodialysis need. Diagnosis/Problems Diagnosis/Problems (1) FRANCISCA (acute kidney injury) Status: Acute (2) CKD (chronic kidney disease), stage IV Status: Chronic (3) CHF (congestive heart failure) Status: Acute (4) Respiratory failure Status: Acute Qualifiers: Qualified Codes: J96.21 - Acute and chronic respiratory failure with hypoxia (5) Anasarca Status: Acute (6) Morbid obesity Status: Chronic (7) HTN (hypertension) Status: Chronic (8) HLD (hyperlipidemia) Status: Chronic (9) T2DM (type 2 diabetes mellitus) Status: Chronic Qualifiers: Supervisory-Addendum Brief Verification & Attestation Participated in pt care: history, MDM, physical Personally performed: exam, history, MDM, supervision of care Care discussed with: Medical Student Procedures: n/a Results interpretation: Verified all documentation A medical student performed and documented this service in my presence. I reviewed and verified all information documented by the medical student and made modifications to such information, when appropriate. I personally performed the physical exam and medical decision making. HOLLIE KERR MED STUDENT May 17, 2022 12:19 CHARLIE SHEEHAN MD May 17, 2022 18:29
[2022-05-17 16:38] VITALS: BP 142/73
[2022-05-17 19:53] VITALS: BP 150/67
[2022-05-17] MEDS: ROSUVASTATIN 5 MG (CRESTOR) TABLET PO SCH (20:02)
[2022-05-18 00:25] VITALS: BP 159/72
[2022-05-18 04:03] VITALS: BP 135/64
[2022-05-18] MEDS: inSUlin ASPART (NovoLOG) 1 UNIT/0.01 ML (CHARGE PER UNIT) SC SCH (05:58)
[2022-05-18 06:02] LABS: HEMATOCRIT 34 % (40-54); MEAN CORPUSCULAR HEMOGLOBIN 24 pg (25-34); MEAN CORPUSCULAR HGB CONC 29 g/dL (32-36); MEAN CORPUSCULAR VOLUME 82 fL (80-99); MEAN PLATELET VOLUME 10.6 fL (9.0-12.2); PLATELET COUNT 142 10^3/uL (130-400); WHITE BLOOD COUNT 7.2 10^3/uL (4.3-11.0)
[2022-05-18 06:31] LABS: CALCIUM 8.6 MG/DL (8.5-10.1); CREATININE SERUM 5.87 MG/DL (0.60-1.30); POTASSIUM 5.4 MMOL/L (3.6-5.0)
--- NOTE | 2022-05-18 07:41 | Cardiology Progress Note ---
Subjective Date Seen by Provider: May 18, 2022 Time Seen by Provider: 07:35 Subjective/Events-last exam Patient was asleep in bed with his cpap when seen but awoke to answer my questions this morning. Dr. Chad William Was consulted yesterday who gave the recommendation that Mr. Sims needs transferred to another hospital to initiate hemodialysis given his worsening kidney function, which the patient was agreeable to. His Kidney function continues to worsen despite the discontinuation of diuretics over the weekend. His Cr this morning is up to 5.87 compared to 5.46 yesterday. He is still having diffuse swelling at this time. He denies any other symptoms at this time. Review of Systems General: No Chills, No Night Sweats HEENT: No Head Aches, No Visual Changes, No Sore Throat Pulmonary: Dyspnea; No Cough Cardiovascular: Edema (Pitting edema in legs bilaterally); No: Chest Pain, Palpitations Gastrointestinal: No: Nausea, Vomiting, Abdominal Pain, Diarrhea Genitourinary: No Dysuria, No Frequency (decreased) Neurological: No: Weakness, Numbness, Change in speech Objective-Cardiology Exam Last Set of Vital Signs Vital Signs 05/17/22 05/18/22 20:00 07:47 Temp 36.3 Pulse 56 Resp 16 B/P (MAP) 152/67 (95) Pulse Ox 92 O2 Delivery NIV CPAP O2 Flow Rate 5.00 I&O Intake and Output 05/18/22 00:00 Intake Total 1480 ml Output Total 200 ml Balance 1280 ml Intake Oral 1480 ml Output Urine Total 200 ml # Voids 2 General: Alert, Oriented X3, Cooperative HEENT: Atraumatic, PERRLA Neck: Supple, No JVD, No Thyromegaly Lungs: Clear to Auscultation, Normal Air Movement Heart: Regular Rate, Normal S1, Normal S2, Other (Systolic murmur at the left sternal border,) Abdomen: Normal Bowel Sounds, Soft, No Tenderness, No Hepatosplenomegaly, No Masses Extremities: No Clubbing, No Cyanosis, Normal Pulses, Other (Peripheral edema) Skin: No Rashes, No Breakdown, No Significant Lesion Neuro: Normal Speech, Normal Tone, Sensation Intact Psych/Mental Status: Mental Status NL, Mood NL Results Lab Laboratory Tests 05/18/22 05:34 A/P-Cardiology Admission Diagnosis Acute on chronic kidney disease Anasarca Acute on chronic CHF CAD Assessment/Plan Acute on chronic renal insufficiency, has seen nephrology in the past, but none recently. Kidney function continues to worsen. Cr today of 5.87 which is worse than 5.46 on 05/17. GFR at this time is 11. His Cr was 3.59 and GFR was 19 upon admission. Diuretics held due to worsening kidney function at this time. Continue low sodium diet and fluid restriction. This patient's case was discussed with Dr. Chad William yesterday who recommended transfer to [place] for dialysis, which patient was agreeable to. However, a bed was not located in [place] but instead at [facility] in [place]. Will work on transfer. Hyperkalemia K+ was 5.4 today, which is minimally changed from 5.3 yesterday. Patient is on Insulin at this time for Diabetes. This will be better addressed once hemodialysis is initiated. Peripheral edema, anasarca Minimally improved since admission. Diuretics held at this time until improvement in kidney function Acute on chronic CHF, LV systolic dysfunction. Most recent 2D Echo done Apr 2021 showing EF 45%, mild diffuse hypokinesia, grade 2 diastolic dysfunction, severely dilated left atrium, Aortic valve sclerosis without stenosis, PA 45- 50mmHg. Needs Diuresed but holding at this time given kidney function. Unable to tolerate CAMILLA-I or ARB d/t underlying kidney function. 2D echo was done on May 12, 2022 with normal left ventricular size, ejection fraction 50 to 55%, grade 2 diastolic dysfunction, dilated left atrium, PA pressure 40 to 45 mmHg. Hypertension Within target range at this time on amlodipine 10mg QD and hydralazine 50mg TID. Monitor for now. Coronary artery disease Status post stenting to the mid LAD using 3.018 mm Alpine stent expanded to 3.25 done in June 2017. Cardiac catheterization done in October 2018 showing patent stent in the mid LAD with moderate disease at the proximal and distal portion of the artery, had BMW wire placed across the LAD that straightened the LAD and the area looked better, at 60-70 percent proximal first obtuse marginal disease that did not change compared to the study of 2018, 50 percent distal right coronary artery. Continue to monitor. Will consider stress test as outpatient. Carotid artery stenosis-mild nonobstructive disease per carotid duplex done November 2018, continue to monitor. Diabetes mellitus, managed by Dr. Younger. Diabetic neuropathy, followed and managed by [facility] Hyperlipidemia, intolerant to Lipitor with severe diarrhea, lipid profile done on October 11, 2018 showing total cholesterol 116, triglyceride 136, HDL 29, LDL 56. On Crestor 5mg QD at this time. History of erectile dysfunction, most likely secondary to peripheral neuropathy. Lower extremity pain, likely secondary to neuropathy, patient underwent peripheral angiogram done February 09, 2016 revealing mild to moderate disease in the anterior tibial of the left lower extremity and posterior tibial at 60-70 percent. Anterior tibial with good flow down to the ankle on the left lower extremity, otherwise mild disease in the right lower extremity and abdominal aorta. AILYN is normal Depression, Anxiety, lost his 17 years old son who drowned in summer 2018 Supervisory-Addendum Brief Verification & Attestation Participated in pt care: history, MDM, physical Personally performed: exam, history, MDM, supervision of care Care discussed with: Medical Student Procedures: n/a Results interpretation: Verified all documentation Verification and Attestation of Medical Student E/M Service A medical student performed and documented this service in my presence. I reviewed and verified all information documented by the medical student and made modifications to such information, when appropriate. I personally performed the physical exam and medical decision making. Patient was seen and evaluated Feeling better, still having significant edema, fatigue and shortness of breath Arrangement made for transfer to a tertiary care center Continue to monitor Leanna Perez, May 18, 2022,08:38 JENNIFER MCNULTY May 18, 2022 07:41 LEANNA PEREZ MD May 18, 2022 08:39
[2022-05-18 07:47] VITALS: BP 152/67
[2022-05-18] MEDS ORDERED: SODIUM POLYSTYRENE POWDER 15 GM BOTTLE PO NR (08:00)
[2022-05-18] MEDS: GABAPENTIN 300 MG (NEURONTIN) CAP PO SCH (08:28)
[2022-05-18] MEDS: hydrALAZINE (APRESOLINE) 25 MG TAB PO SCH (08:28)
[2022-05-18] MEDS: amLODIPine 5 MG (NORVASC) TAB PO SCH (08:28)
[2022-05-18] MEDS: meTOprolol TARTRATE 50 MG (LOPRESSOR) TAB PO SCH (08:28)
[2022-05-18] MEDS: VITAMIN D3 25 MCG (1,000 UNITS) TABLET PO SCH (08:28)
[2022-05-18] MEDS ORDERED: CALCIUM ACETATE 667 MG CAP (PHOSLO) PO SCH (08:30)
[2022-05-18 09:30] VITALS: BP 152/67
--- NOTE | 2022-05-18 12:59 | Discharge Summary ---
HOLLIE KERR MED STUDENT 05/18/22 1259: Diagnosis/Chief Complaint Date of Admission May 12, 2022 at 12:23 Date of Discharge May 18, 2022 at 09:30 Discharge Date: May 18, 2022 Admission Diagnosis Acute kidney injury superimposed on chronic kidney disease Primary Care Mariia Younger DO Discharge Diagnosis FRANCISCA on CKD (1) FRANCISCA (acute kidney injury) Status: Acute Assessment & Plan: Transferred to [facility] in for hemodialysis (2) CKD (chronic kidney disease), stage IV Status: Chronic (3) CHF (congestive heart failure) Status: Chronic Assessment & Plan: F/u with cardiology (4) Respiratory failure Status: Acute Assessment & Plan: Transferred on 2L NC with adequate oxygen saturations (5) Anasarca Status: Acute Assessment & Plan: Improved initially with lasix, but these were held d/t worsening kidney function and lack of hemodialysis at this facility (6) Morbid obesity Status: Chronic (7) HTN (hypertension) Status: Chronic (8) HLD (hyperlipidemia) Status: Chronic (9) T2DM (type 2 diabetes mellitus) Status: Chronic Discharge Summary Discharge Physical Exam Allergies: Coded Allergies: atorvastatin (Verified Allergy, Unknown, 10/11/18) tazobactam (Verified Allergy, Unknown, RASH, 02/10/18) Vitals & I&Os Vital Signs Date Time Temp Pulse Resp B/P (MAP) Pulse Ox O2 Delivery O2 Flow Rate FiO2 05/18/22 09:30 36.3 56 16 152/67 92 Nasal Cannula 5.00 General Appearance: No Apparent Distress, Chronically ill HEENT: PERRL/EOMI, Moist Mucous Membranes Respiratory: Chest Non Tender, Normal Breath Sounds, No Accessory Muscle Use, No Respiratory Distress Cardiovascular: Regular Rate, Rhythm, No Murmur Gastrointestinal: Non Tender, Soft, Distended Extremity: Pedal Edema (2+ pitting edema) Skin: Normal Color, Warm/Dry Neurologic/Psychiatric: Alert, Oriented x3, Normal Mood/Affect Hospital Course Was the Problem List Reviewed?: Yes Pt is 57yoCM with a PMH of CHF, Acute on CKD, NIDDMII, HTN who presented to the ER due to swelling. He stated he struggles with swelling always but for the past month or so it became worse. He had been taking his medications as prescribed but continued to worsen prompting him to seek evaluation in the ER. He was admitted roughly 1 year ago with similar sxs and states he had 30lbs taking off of him with diuretics. He believed he was up 40lbs currently with the extra fluid. He was admitted for IV Lasix and diuresis. He was also mildly hypoxic requiring 2lpm. Pt's BUN and Cr continued to worsen throughout hospital course. His urine output continued to decrease. The decision was made that the pt needed to be transferred to a facility with hemodialysis as he was trending in that direction. Labs (last 24 hrs) Laboratory Tests 05/17/22 16:45: Glucometer 197H 05/17/22 20:52: Glucometer 207H 05/18/22 05:33: Glucometer 159H 05/18/22 05:34: White Blood Count 7.2, Red Blood Count 4.20L, Hemoglobin 10.0L, Hematocrit 34L, Mean Corpuscular Volume 82, Mean Corpuscular Hemoglobin 24L, Mean Corpuscular Hemoglobin Concent 29L, Red Cell Distribution Width 16.6H, Platelet Count 142, Mean Platelet Volume 10.6, Sodium Level 136, Potassium Level 5.4H, Chloride Level 100, Carbon Dioxide Level 22, Anion Gap 14, Blood Urea Nitrogen 141*H, Creatinine 5.87#H, Estimat Glomerular Filtration Rate 11, BUN/Creatinine Ratio 24, Glucose Level 172H, Calcium Level 8.6, Phosphorus Level 7.4H Patient resulted labs reviewed. Pending Labs Laboratory Tests 05/18/22 05:33: Glucometer 159 05/18/22 05:34: White Blood Count 7.2, Red Blood Count 4.20, Hemoglobin 10.0, Hematocrit 34, Mean Corpuscular Volume 82, Mean Corpuscular Hemoglobin 24, Mean Corpuscular Hemoglobin Concent 29, Red Cell Distribution Width 16.6, Platelet Count 142, Mean Platelet Volume 10.6, Sodium Level 136, Potassium Level 5.4, Chloride Level 100, Carbon Dioxide Level 22, Anion Gap 14, Blood Urea Nitrogen 141, Creatinine 5.87, Estimat Glomerular Filtration Rate 11, BUN/Creatinine Ratio 24, Glucose Level 172, Calcium Level 8.6, Phosphorus Level 7.4 Imaging: Reviewed Imaging Report Discharge Home Medications: Active Scripts Active Reported Furosemide 40 Mg Tablet 40 Mg PO DAILY PRN TAKES ADDITIONAL TAB NEEDED Furosemide 40 Mg Tablet 40 Mg PO DAILY Ventolin Hfa (Albuterol Sulfate) 1 Puff Puff 2 Puff INH Q4H PRN Metolazone 2.5 Mg Tablet 2.5 Mg PO Tylenol (Acetaminophen) 325 Mg Tablet 650 Mg PO Q6H PRN Hydralazine HCl 50 Mg Tablet 50 Mg PO TID Vitamin D3 (Cholecalciferol (Vitamin D3)) 25 Mcg Capsule 25 Mcg PO DAILY Fexofenadine HCl 180 Mg Tablet 180 Mg PO DAILY Amlodipine Besylate 5 Mg Tablet 5 Mg PO DAILY Neurontin (Gabapentin) 300 Mg Capsule 600 Mg PO TID TAKES 2 (300MG) CAPS Rosuvastatin Calcium 5 Mg Tablet 5 Mg PO HS Glimepiride 4 Mg Tablet 4 Mg PO DAILY Aspirin EC (Aspirin) 81 Mg Tablet.dr 81 Mg PO DAILY Metoprolol Tartrate 50 Mg Tablet 50 Mg PO BID Instructions to patient/family Please see electronic discharge instructions given to patient. Copy Copies To 1: MARIIA YOUNGER JARIN M MD 05/18/22 1745: Diagnosis/Chief Complaint Discharge Time: 09:30 Admission Diagnosis FRANCISCA on CKD Discharge Diagnosis FRANCISCA on CKD (1) FRANCISCA (acute kidney injury) Status: Acute Assessment & Plan: Transferred to [facility] in for hemodialysis (2) CKD (chronic kidney disease), stage IV Status: Chronic (3) CHF (congestive heart failure) Status: Chronic Assessment & Plan: F/u with cardiology (4) Respiratory failure Status: Acute Assessment & Plan: Transferred on 2L NC with adequate oxygen saturations (5) Anasarca Status: Acute Assessment & Plan: Improved initially with lasix, but these were held d/t worsening kidney function and lack of hemodialysis at this facility (6) Morbid obesity Status: Chronic (7) HTN (hypertension) Status: Chronic (8) HLD (hyperlipidemia) Status: Chronic (9) T2DM (type 2 diabetes mellitus) Status: Chronic Discharge Summary Discharge Physical Exam Allergies: Coded Allergies: atorvastatin (Verified Allergy, Unknown, 10/11/18) tazobactam (Verified Allergy, Unknown, RASH, 02/10/18) Hospital Course Was the Problem List Reviewed?: Yes Admitted with fluid overload with FRANCISCA on CKD and CHF. Diuresed initially but worsening renal function deterred further fluid removal. BUN/Cr continued to worsen. Patient transferred to [facility] for hemodialysis. Imaging: Reviewed Imaging Report Discussion & Recommendations Discharge Planning: >30 minutes discharge planning Discharge Condition at discharge Poor Copy Copies To 1: MARIIA YOUNGER DO Supervisory-Addendum Brief Verification & Attestation Participated in pt care: history, MDM, physical Personally performed: exam, history, MDM, supervision of care Care discussed with: Medical Student Procedures: n/a Results interpretation: Verified all documentation A medical student performed and documented this service in my presence. I reviewed and verified all information documented by the medical student and made modifications to such information, when appropriate. I personally performed the physical exam and medical decision making. Problem Qualifiers (1) Respiratory failure: Chronicity: acute on chronic Respiratory failure complication: hypoxia Qualified Codes: J96.21 - Acute and chronic respiratory failure with hypoxia (2) T2DM (type 2 diabetes mellitus): Diabetes mellitus long term care pharmacist insulin use: without snf use HOLLIE KERR MED STUDENT May 18, 2022 12:59 CHARLIE SHEEHAN MD May 18, 2022 17:45
== END 2022-05-18 09:30 | disposition short-term general hospital (02) | DRG 682 ==
LOC: EDUNIT# 10:27 → ER 10:29 → ICU 12:23 → 4TH 05-14 15:37
PROVIDERS: ADMIT Family Medicine; ATTEND Internal Medicine
PROC: 5A09457 Assistance with Respiratory Ventilation, 24-96 Consecutive Hours, Continuous Positive Airway Pressure (ICD-10-PCS; principal; 2022-05-12)
DX: N17.9 Acute kidney failure, unspecified (principal); I50.23 Acute on chronic systolic (congestive) heart failure; J96.21 Acute and chronic respiratory failure with hypoxia; I13.0 Hypertensive heart and chronic kidney disease with heart failure and stage 1 through stage 4 chronic kidney disease, or unspecified chronic kidney disease; Z68.43 Body mass index [BMI] 50.0-59.9, adult; I42.9 Cardiomyopathy, unspecified; N18.4 Chronic kidney disease, stage 4 (severe); E11.22 Type 2 diabetes mellitus with diabetic chronic kidney disease; E66.01 Morbid (severe) obesity due to excess calories; E78.5 Hyperlipidemia, unspecified; Z95.5 Presence of coronary angioplasty implant and graft; I25.10 Atherosclerotic heart disease of native coronary artery without angina pectoris; E11.51 Type 2 diabetes mellitus with diabetic peripheral angiopathy without gangrene; E11.40 Type 2 diabetes mellitus with diabetic neuropathy, unspecified; M19.90 Unspecified osteoarthritis, unspecified site; G89.29 Other chronic pain; M54.9 Dorsalgia, unspecified; F41.9 Anxiety disorder, unspecified; F32.A Depression, unspecified; E87.5 Hyperkalemia; I65.29 Occlusion and stenosis of unspecified carotid artery
CPT/HCPCS: 36415; 71045; 80048; 80053; 82947; 83880; 84100; 84439; 84443; 85007; 85027; 93306; 96374

== ENCOUNTER → 2023-01-28 | Outpatient (CLI) | payer OTHER ==
[~2023-01-28] MED LIST changes: -LOSA100T57 PO; +LOSA100T58 PO; +RT-ALBUINH INH
== END ==
LOC: CARD 09:26
PROVIDERS: ATTEND Physician Assistant
DX: I11.9 Hypertensive heart disease without heart failure (principal)
CPT/HCPCS: 93306

== ENCOUNTER → 2023-02-07 | Outpatient (CLI) | payer OTHER ==
[~2023-02-07] MED LIST changes: +CATHETER FLUSH 10 ML SYR IVP PRN; +REGADENOSON 0.4 MG/5 ML SYR IV ONE
[2023-02-07 09:51] VITALS: BP 187/103
--- NOTE | 2023-02-07 12:02 | Cardiology Stress Test Report ---
Stress Test Report Date of Procedure/Referring: Date of Procedure: Feb 07, 2023 PCP Yang Younger DO Admitting Physician Admitting Physician: Attending Physician: Marleny Avendaño Baseline Heart Rate: 77 Baseline Blood Pressure: Blood Pressure Systolic: 187 Blood Pressure Diastolic: 103 Baseline Vitals Vital Signs Date Time Temp Pulse Resp B/P (MAP) Pulse Ox O2 Delivery O2 Flow Rate FiO2 02/07/23 09:51 76 187/103 (131) Baseline EKG: Baseline EKG: RBBB Summary After explaining the procedure to the patient, he signed a consent and then brought to the stress nuclear laboratory. Patient received 0.4 mg Lexiscan for stress test, ECG, heart rate and blood pressure were monitored continuously. Resting and stress dose of radio tracer were injected, imaging was acquired and reviewed in short axis, horizontal long axis and vertical long axis views. TID: 1.13 SSS: 9 SDS: 3 EF: 47 Patient tolerated Lexiscan well Baseline right bundle branch block persisted during test Reversible ischemia involving the inferior wall and inferolateral wall Normal left ventricular size hypokinesia at the inferior wall ejection fraction 47% Copy Copies To 1: YANG YOUNGER BASHAR J MD Feb 07, 2023 12:02
== END ==
LOC: CARD 07:54
PROVIDERS: ATTEND Physician Assistant
DX: I25.10 Atherosclerotic heart disease of native coronary artery without angina pectoris (principal)
CPT/HCPCS: 78452; 93017; A9502

== ENCOUNTER 2023-02-16 11:34 | Day surgery (SDC) | payer OTHER ==
[~2023-02-16] VITALS: Ht 182.9 cm; Wt 133.5 kg
[2023-02-16] VITALS (9 sets, daily range): BP systolic 129–177; BP diastolic 60–79
[~2023-02-16 11:34] MED LIST changes: -CATHETER FLUSH 10 ML SYR IVP PRN; -REGADENOSON 0.4 MG/5 ML SYR IV ONE
[2023-02-16] MEDS ORDERED: HEParin (CATH LAB) 2,000 ML IV ONE (11:41)
[2023-02-16] MEDS ORDERED: NS IV 1000 ML 1,000 ML ONE (11:41)
[2023-02-16] MEDS ORDERED: LIDOCAINE 1% INJ 20 ML VIAL ONE (11:41)
[2023-02-16] MEDS ORDERED: NS IV 1000 ML 1,000 ML IV SCH ×2 (12:00→14:30)
--- NOTE | 2023-02-16 12:09 | Diagnostic Imaging Report ---
EXAM: CHEST 1 VIEW, AP/PA ONLY INDICATION: Coronary artery disease. Line placement. COMPARISON: 05/12/2022. FINDINGS: Borderline heart size with pulmonary vascular congestion, stable. No new focal pulmonary opacity. No pleural effusion or pneumothorax. New right IJ dual-lumen CVC tip near the RA/SVC junction. Postoperative changes in the lower cervical spine. IMPRESSION: 1. Borderline heart size and pulmonary vascular congestion is similar to the prior exam. 2. Dual lumen right IJ CVC tip near the RA/SVC junction. This line is new compared to 05/12/2022. Dictated by: Dictated on workstation # [id number]
[2023-02-16 12:10] LABS: HEMATOCRIT 36 % (40-54); HEMOGLOBIN 12.3 g/dL (13.3-17.7); MEAN CORPUSCULAR HEMOGLOBIN 30 pg (25-34); MEAN CORPUSCULAR HGB CONC 34 g/dL (32-36); MEAN CORPUSCULAR VOLUME 89 fL (80-99); MEAN PLATELET VOLUME 10.1 fL (9.0-12.2); PLATELET COUNT 159 10^3/uL (130-400); WHITE BLOOD COUNT 9.3 10^3/uL (4.3-11.0)
[2023-02-16 12:21] LABS: PROTHROMBIN TIME PATIENT 13.6 SEC (12.2-14.7)
[2023-02-16 12:29] LABS: ALBUMIN 4.4 GM/DL (3.2-4.5); BILIRUBIN,TOTAL 0.6 MG/DL (0.1-1.0); CREATININE SERUM 5.3 MG/DL (0.60-1.30); POTASSIUM 3.9 MMOL/L (3.6-5.0); TOTAL PROTEIN 7.2 GM/DL (6.4-8.2)
[2023-02-16] MEDS ORDERED: ACHD5005 PO (12:42)
[2023-02-16] MEDS ORDERED: CPAP (12:42)
[2023-02-16] MEDS ORDERED: TIRZ5PEN SQ (12:42)
[2023-02-16] MEDS ORDERED: HYDR-3923 PO (12:42)
[2023-02-16] MEDS ORDERED: MELA1TAB51 PO (12:42)
[2023-02-16] MEDS ORDERED: AMLO-251 PO (12:42)
--- NOTE | 2023-02-16 13:11 | Cardiac Procedure Note-CS/ASA ---
Pre-Procedure Note Pre-Op Procedure Note Date of Available H&P: Feb 07, 2023 Date H&P Reviewed: Feb 16, 2023 Time H&P Reviewed: 13:10 History & Physical: H&P Reviewed, Patient Examed, No changes noted Pre-Operative Diagnosis: Coronary artery disease Moderate Sedation PreProcedure Time 13:11 ASA Score 3 Airway Lungs Heart ASA score ASA 1: a normal healthy patient ASA 2: a patient with a mild systemic disease (mid diabetes, controlled hypertension, obesity ASA 3: a patient with a severe systemic disease that limits activity (angina, COPD, prior Myocardial infarction) ASA 4: a patient with an incapacitating disease that is a constant threat to life (CHF, renal failure) ASA 5: a moribund patient not expected to survive 24 hrs. (ruptured aneurysm) ASA 6: a declared brain- patient whose organs are being harvested. For emergent operations, add the letter E after the classification Mallampati Classification Grade 3 Sedation Plan Analgesia, Amnesia, Plan communicated to team members, Discussed options with patient/fam, Discussed risks with patient/fam The patient is an appropriate candidate to undergo the planned procedure, sedation, and anesthesia. The patient immediately re-assessed prior to indication. KAREN YANG MD Feb 16, 2023 13:11
[2023-02-16] MEDS ORDERED: fentaNYL INJECTION 100 MCG/2 ML VIAL ONE (13:15)
[2023-02-16] MEDS ORDERED: VERAPAMIL 5 MG/2 ML (CALAN) VIAL IV ONE (13:15)
[2023-02-16] MEDS ORDERED: HEParin 1000 UNIT/ML (10ML VIAL) FOR BOLUS ONE (13:16)
[2023-02-16] MEDS ORDERED: MIDAZOLAM INJ 5 MG/5 ML VIAL ONE (13:16)
[2023-02-16] MEDS ORDERED: NITRO DRIP 25000 MCG/D5W 250 ML IV ONE (13:16)
--- NOTE | 2023-02-16 14:19 | Discharge Inst-Post CATH ---
Discharge Inst-CATH/EP Problems Reviewed?: Yes Post Cardiac Cath/EP D/C Inst Follow Up/Plan Appointment with Dr. Perez's office in 2 to 4 weeks <b>CARDIAC CATH/EP PROCEDURE DISCHARGE INSTRUCTIONS</b> ACTIVITY * Go Home directly and rest. * Limit activity of the leg (or wrist if it was used) for 7 days including aer obics, swimming, jogging, bicycling, etc. * Restrict stair-climbing for 7 days if possible, if not, climb up with your non-cath leg, then bring together on the same step. * Avoid lifting, pushing, pulling or excessive movement of the affected extremi ty for 7 days. * Customary sexual activity may be resumed after 2 days-use caution not to use a position that strains or causes pain to the affected extremity. * No driving for 24 hours. * NO SMOKING. * Avoid straining for bowel movements for 7 days. * Gentle walking on level ground is allowed. * Returning to work will depend on the type of procedure and the results. Your doctor will discuss this with you. CALL YOUR DOCTOR FOR ANY OF THE FOLLOWING: *If bleeding from the puncture site occurs- Apply gentle pressure to site with clean cloth and call your doctor or EMS. * If a knot or lump forms under the skin, increases in size, or causes pain. * If bruising appears to be worsening or moving further down your leg instead of disappearing. * Temperature above 101 F. CARE OF YOUR GROIN INCISION; * Bruising or purple discoloration of the skin near the puncture site is common. * You may shower only, no bathtub bathing for 5 days. Be careful to avoid slipping as your leg may feel stiff. * If a closure device was used on your femoral artery, please see the attached guide regarding care of the device and your leg. * Leave dressing on FOR 24 hours. CARE OF YOUR WRIST INCISION; * Bruising or purple discoloration of the skin near the puncture site is common. * You may shower. * DO NOT submerge wrist. * Leave dressing on FOR 24 hours. KAREN PEREZ MD Feb 16, 2023 14:19
--- NOTE | 2023-02-16 14:21 | Cardiac Cath Report ---
Cardiac Cath Report Physician (s)/Appeals Examiner (s) Physician KAREN YANG MD Pre-Procedure Diagnosis Pre-Procedure Diagnosis: Coronary artery disease Post-Procedure Note Procedure Start Date: Feb 16, 2023 Name of Procedure: Coronary angiogram Findings/Procedure Note PROCEDURE NOTE: 58-year-old gentleman with end-stage kidney disease maintained on dialysis, hypertension, diabetes mellitus, has been having active chest pain patient had an abnormal stress test, scheduled for cardiac catheterization possible PTCA. After explaining the procedure to the patient, all pros and cons were explained, all questions were answered. The patient signed the consent and then he was placed in the cardiac catheterization laboratory. Groin was prepped in SL fashion local anesthesia was used. Sheath placed in the right radial artery, [place] catheter was advanced and engaged the right and left coronary system angiogram was done, did not cross the aortic valve. At the end of the procedure the sheath was removed. Vascular band was used FINDINGS: Hemodynamics LV did not cross the aortic valve Aorta 77/42 mean of 57 ANATOMY: Left Main is free of obstructive disease Left Anterior Descending is tortuous artery with mild disease 40 to 50% stenosis in the mid LAD Left Circumflex is tortuous artery with 50 to 60% at the distal circumflex artery Right Coronary Artery is large dominant artery with 40 to 50% stenosis distally nonobstructive disease CONCLUSION: Mild to moderate coronary disease nonobstructive disease in the coronary system DISCUSSION AND RECOMMENDATION: Medical therapy is recommended no intervention is warranted Anesthesia Type: Conscious Sedation Estimated blood loss (mL): 10 ml Contrast Amount: 35 ml Total Radiation Dose: 648 mGy Post-Procedure Diagnosis Post-operative diagnosis: Chest pain Coronary artery disease Hypertension Hyperlipidemia KAREN YANG MD Feb 16, 2023 14:21
== END 2023-02-16 17:05 | disposition home or self-care (01) ==
LOC: CATH 11:34
PROVIDERS: ATTEND Internal Medicine Cardiovascular Disease
DX: I25.10 Atherosclerotic heart disease of native coronary artery without angina pectoris (principal); I12.0 Hypertensive chronic kidney disease with stage 5 chronic kidney disease or end stage renal disease; N18.6 End stage renal disease; E78.2 Mixed hyperlipidemia; R00.2 Palpitations; R06.02 Shortness of breath; I65.23 Occlusion and stenosis of bilateral carotid arteries; E11.40 Type 2 diabetes mellitus with diabetic neuropathy, unspecified; F41.9 Anxiety disorder, unspecified; F32.A Depression, unspecified; R60.9 Edema, unspecified; Z99.2 Dependence on renal dialysis; Z95.5 Presence of coronary angioplasty implant and graft; Z79.85 Long-term (current) use of injectable non-insulin antidiabetic drugs; Z79.84 Long term (current) use of oral hypoglycemic drugs
CPT/HCPCS: 71045; 80053; 80061; 85027; 85610; 85730; 87081; 93005; 93458; C1894; 36415